=== PATIENT | female | born 1935 | race Caucasian/White ===

== ENCOUNTER 2018-02-03 22:17 | Emergency (ER) | payer OTHER ==
[2018-02-03] MEDS ORDERED: MORPHINE 4 MG/ML SYR ONE (22:46)
[2018-02-03] MEDS ORDERED: TETANUS & DIPHTHERIA TOX,ADULT 0.5 ML VIAL ONE (22:46)
[2018-02-03] MEDS ORDERED: ONDANSETRON 4 MG/2 ML VIAL ONE (22:47)
[2018-02-03] MEDS ORDERED: CEFAZOLIN/SWI 1gm 1 GM/10 ML SYR ONE (22:47)
--- NOTE | 2018-02-03 23:18 | RAD REPORT ---
EXAM DESCRIPTION: RAD - Humerus Right - 02/03/2018 11:02 pm CLINICAL HISTORY: Right arm pain status post fall FINDINGS: A comminuted markedly displaced oblique fracture involves the mid right humerus.
--- NOTE | 2018-02-03 23:22 | RAD REPORT ---
EXAM DESCRIPTION: Laquita Single View02/03/2018 11:02 pm CLINICAL HISTORY: Chest pain COMPARISON: August 2017 FINDINGS: The lungs appear clear of acute infiltrate. The heart is mildly enlarged. The aorta is to rtuous/ectatic IMPRESSION: No acute abnormalities displayed
--- NOTE | 2018-02-03 23:24 | RAD REPORT ---
EXAM DESCRIPTION: RAD - Forearm Right - 02/03/2018 11:02 pm CLINICAL HISTORY: Right arm pain status post fall FINDINGS: No acute fracture is seen involving the right forearm
[2018-02-03 23:34] LABS: Absolute Lymphocytes (CBC) 1.4 K/uL (0.7-4.9); Absolute Monocytes 0.9 K/uL (0.1-1.3); Absolute Neutrophil 6.4 K/uL (1.8-8.0); Basophils % 0.8 % (0-1.3); Eosinophils % 2.5 % (0-4.4); Hematocrit 33.2 % (36.0-45.0); Lymphocytes % 15.9 % (15.3-44.8); MCH 31.2 pg (27.0-35.0); MCV 94.9 fL (80-100); MPV 7.3 fL (7.6-11.3); Monocytes % 9.7 % (3.3-12.3)
[2018-02-03] MEDS ORDERED: FENTANYL CITR 100 MCG/2 ML ONE (23:53)
--- NOTE | 2018-02-03 23:57 | ER ---
Nurse's Notes [facility] Name: Rosina Odonnell Age: 82 yrs Sex: Female : 1935 Arrival Date: 02/03/2018 Time: 22:22 Bed 3 Private MD: Casey Kolher C Diagnosis: Fall. ;Open, displaced, comminuted, midshaft humerus fracture, right. Presentation: 02/03 22:23 Presenting complaint: EMS states: Patient was at home and she tangle with an immobile ao dog and felt into her right side. Noted as dislocated bone and skin tear on the right arm. 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 Mechanism of Injury: Fall standing tangle with a dog. Trauma event details: Injury occurred in the [facility]. 22:23 Acuity: AMERICA 2 ao 22:23 Method Of Arrival: EMS: [facility] ao 22:38 Transition of care: patient was not received from another setting of care. Onset of ao symptoms was February 03, 2018 at 21:30. Risk Assessment: Do you want to hurt yourself or someone else? Patient reports no desire to harm self or others. Initial Sepsis Screen: Does the patient meet any 2 criteria? No. Patient's initial sepsis screen is negative. Does the patient have a suspected source of infection? No. Patient's initial sepsis screen is negative. Triage Assessment: 22:35 General: Appears in no apparent distress. comfortable, Behavior is calm, cooperative, ao appropriate for age. Pain: Complains of pain in right arm Pain currently is 9 out of 10 on a pain scale. EENT: No signs and/or symptoms were reported regarding the EENT system. Neuro: Level of Consciousness is awake, alert, obeys commands, Oriented to person, place, time, situation, Appropriate for age Weakness in right hand(s) arm(s). Cardiovascular: Capillary refill < 3 seconds Patient's skin is warm and dry. Respiratory: Airway is patent Respiratory effort is even, unlabored, Respiratory pattern is regular, symmetrical. GI: Abdomen is non-distended. : No signs and/or symptoms were reported regarding the genitourinary system. Derm: Skin is normal, Skin temperature is cold. Musculoskeletal: Positive pulse noted in right hand. Right hand dressed and immobilize. Reported deformity on the right arm by EMS. Injury Description: Tangle with a dog and fall. Trauma Activation: Alert Physician: ED Physician; Name: ; Notified At: 22:30; Arrived At: 22:30 Physician: General Surgeon; Name: ; Notified At: 22:30; Arrived At: Physician: Radiology; Name: Duglas Lopez; Notified At: 22:30; Arrived At: 22:31 Physician: Respiratory; Name: Boy; Notified At: 22:30; Arrived At: 22:31 Physician: Lab; Name: ; Notified At: 22:30; Arrived At: Historical: - Allergies: 22:33 Augmentin ES-600; ao 22:33 Sulfa (Sulfonamide Antibiotics); ao - Home Meds: 02/04 00:26 Advair Diskus 500-50 mcg/dose Inhl dsdv [Active]; Singulair 10 mg Oral tab 1 tab once ao daily [Active]; Uvalde 7.5-325 mg Oral tab 1 tab every 6 hours [Active]; Cymbalta 60 mg Oral cpDR 1 cap once daily [Active]; Xanax 0.25 mg Oral tab 1 tab bedtime [Active]; methocarbamol 750 mg Oral tab twice a day [Active]; Lyrica 50 mg Oral 2 times per day [Active]; Nexium 40 mg Oral cpDR 1 cap once daily [Active]; Zantac 150 mg Oral tab 1 tab 2 times per day [Active]; Carafate 1 gram Oral tab 1 tab 4 times per day [Active]; Keppra 750 mg Oral tab 1 tab 2 times per day [Active]; carvedilol 3.125 mg Oral tab 1 tab 2 times per day [Active]; Albuterol Inhl [Active]; Aubagio 14 mg Oral tab 1 tab once daily [Active]; trazodone 150 mg Oral tab nightly [Active]; - PMHx: 02/03 22:33 Asthma; Depression; Hypertension; MS; osteoarthritis; Seizures; ao - PSHx: 22:33 None; ao - Immunization history: Last tetanus immunization: unknown. - Social history:: Smoking status: Patient/guardian denies using tobacco, Patient/guardian denies using alcohol, street drugs. - Ebola Screening: : Patient negative for fever greater than or equal to 101.5 degrees Fahrenheit, and additional compatible Ebola Virus Disease symptoms Patient denies exposure to infectious person Patient denies travel to an Ebola-affected area in the 21 days before illness onset. Screenin:33 Abuse screen: Denies threats or abuse. Denies injuries from another. Nutritional ao screening: No deficits noted. Tuberculosis screening: No symptoms or risk factors identified. Fall Risk Fall in past 12 months (25 points). No secondary diagnosis (0 pts). No IV (0 pts). Ambulatory Aid- None/Bed Rest/Nurse Assist (0 pts). Gait- Normal/Bed Rest/Wheelchair (0 pts) Mental Status- Oriented to own ability (0 pts). Total Kuo Fall Scale indicates Low Risk Score (25-44 pts). Fall prevention measures have been instituted. Side Rails Up X 2 Placed close to Nursing Station Family Present and informed to notify staff if they need to leave bedside As available Patient and Family Educated on Fall Prevention Program and strategies. Primary Survey: 22:29 A: Airway: patent. Breathing/Chest: Respiratory pattern: regular, Respiratory effort: ao spontaneous, Breath sounds: clear, bilaterally. Chest inspection: symmetrical rise and fall of the chest. Circulation: Cardiac rhythm: sinus rhythm Heart tones present. Pulses: palpable right radial artery and left radial artery. Skin color: pink, Skin temperature: cold. Disability Alert. 22:39 Reassessment Airway Airway Breathing/Chest Respiratory pattern Regular Circulation ao Heart rhythm Sinus rhythm Disability Alert. Assessment: 22:40 General: See triage notes for full assessment. ao 23:40 Reassessment: Patient appears in no apparent distress at this time. Patient and/or ao family updated on plan of care and expected duration. Pain level reassessed. Patient to be transferred. 02/04 00:10 Reassessment: Report called to MARIELLA Whittaker. ao 01:10 Reassessment: Patient appears in no apparent distress at this time. Patient and/or ao family updated on plan of care and expected duration. Pain level reassessed. Patient is alert, oriented x 3, equal unlabored respirations, skin warm/dry/pink. Waiting on EMS to pick patient for transfer. 01:55 Reassessment: Patient stable with VS stable at this time. Waiting on EMS for ao transportation. Patient has medicated with 50 Mcg Fentanyl IVP by MARIELLA Gandara at 2357 and would be medicated before she leaves for pain. 02:33 Reassessment: Patient left by EMS. Patient VS stable. Patient had no questions at ao this time. Patient medicated with fentanyl 50 Mcg before leaving. Vital Signs: 02/03 22:30 BP 155 / 89; Pulse 72; Resp 16; Temp 97.6(O); Pulse Ox 96% on R/A; Weight 47.17 kg (R); ao Height 5 ft. 6 in. (167.64 cm) (R); Pain 9/10; 23:25 BP 145 / 89; Pulse 68; Resp 16; Pulse Ox 96% on R/A; mt 02/04 00:30 BP 154 / 74; Pulse 77; Resp 18; Pulse Ox 92% on R/A; ao 01:30 BP 149 / 82; Pulse 80; Resp 18; Pulse Ox 95% on R/A; ao 01:59 BP 168 / 84; Pulse 79; Resp 18; Pulse Ox 96% on R/A; ao 02/03 22:30 Body Mass Index 16.79 (47.17 kg, 167.64 cm) ao Early Branch Coma Score: 02/03 22:30 Eye Response: spontaneous(4). Verbal Response: oriented(5). Motor Response: obeys ao commands(6). Total: 15. Trauma Score (Adult): 22:30 Eye Response: spontaneous(1); Verbal Response: oriented(1); Motor Response: obeys ao commands(2); Systolic BP: > 89 mm Hg(4); Respiratory Rate: 10 to 29 per min(4); Early Branch Score: 15; Trauma Score: 12 ED Course: 22:22 Patient arrived in ED. ao 22:29 Triage completed. ao 22:29 Darnell Kendall MD is Attending Physician. ps1 22:31 Patient placed in an exam room, on a stretcher, on cafeteria monitor, on pulse oximetry, ao Patient notified of wait time. 22:38 Arm band placed on right wrist. ao 22:39 Patient has correct armband on for positive identification. traffic monitor specialist on. Pulse ao ox on. NIBP on. 22:39 Patient maintains SpO2 saturation greater than 95% on room air. ao 22:40 Casey Kohler MD is Private Physician. fc 22:40 Thermoregulation: warm blanket given to patient. ao 22:40 No provider procedures requiring assistance completed. Maintain EMS IV. Dressing ao intact. Good blood return noted. Site clean \T\ dry. Gauge \T\ site: 22 H Left hand. Patient transferred, IV remains in place. 22:43 Boni Aparicio RN is Primary Nurse. ao 23:01 X-ray completed. Portable x-ray completed in exam room. Patient tolerated procedure bb2 well. 23:02 Humerus Right XRAY In Process Unspecified. EDMS 23:02 Forearm Right XRAY In Process Unspecified. EDMS 23:02 CXR XRAY In Process Unspecified. EDMS 23:[address] via stretcher. nj 23:06 CT completed. Patient tolerated procedure well. Patient moved back from CT. nj 23:19 CT Head C Spine In Process Unspecified. EDMS 02/04 00:15 Straight cath inserted, using sterile technique, 16 Fr. mt Administered Medications: 02/03 23:08 Drug: Tetanus-Diphtheria Toxoid Adult 0.5 ml {At Risk Paraprofessional: [employer]. Exp: ao 05/13/2020. Lot #: [id number]. } Route: IM; Site: left gluteus; 02/04 00:58 Follow up: Response: No adverse reaction ao 02/03 23:09 Drug: morphine 4 mg Route: IVP; Site: left hand; ao 02/04 00:58 Follow up: Response: No adverse reaction ao 02/03 23:09 Drug: Zofran 4 mg Route: IVP; Site: left forearm; ao 02/04 00:58 Follow up: Response: No adverse reaction ao 02/03 23:09 Drug: Ancef 1 grams Route: IVPB; Site: left forearm; ao 02/04 00:58 Follow up: IV Status: Completed infusion; IV Intake: 10ml ao 02:04 Drug: fentaNYL (PF) 100 mcg {Note: 50 Mcg done at 2357 by MARIELLA Gandara and 50Mcg now ao done by MARIELLA Plata.} Route: IVP; Site: right hand; 02:32 Follow up: Response: No adverse reaction ao Intake: 00:58 IV: 10ml; Total: 10ml. ao 02:31 PO: 0ml; Total: 10ml. ao Output: 02:31 Urine: 0ml; Total: 0ml. ao Outcome: 02/03 23:57 ER care complete, transfer ordered by . ps1 02/04 02:31 Transferred by ground EMS to [facility], Transfer form completed. X-rays sent ao w/ patient. Condition: stable Instructed on the need for transfer. 02:32 Patient's length of stay in the Emergency Department was greater than 2 hours. ao Transfers processPatient's length of stay extended due to 02:34 Patient left the ED. ao Signatures: Dispatcher [employer] EDMS Nichol Brunson RN RN fc Ortiz, Alex, RN RN ao Baljit Grant, Darnell Soto mt, MD MD ps1 Jessica Vidal2 Corrections: (The following items were deleted from the chart) :57 00:10 Reassessment: Report called to MARIELLA Sanchez ao
--- NOTE | 2018-02-03 23:57 | EDPHYS ---
Physician Documentation [facility] Name: Rosina Odonnell Age: 82 yrs Sex: Female : 1935 Arrival Date: 02/03/2018 Time: 22:22 Bed 3 Private MD: Casey Kohler C ED Physician Darnell Kendall HPI: 02/03 23:23 This 82 yrs old Female presents to ER via EMS with complaints of Fall Injury. ps1 23:23 The complaints affect the right arm. Context of injury: The problem was sustained at ps1 home, resulted from a fall, while walking. Onset: The symptoms/episode began/occurred just prior to arrival. Associated signs and symptoms: Pertinent positives: open fracture to right arm and numbness to right arm distally. . Details of fall: The patient fell from an upright position, while walking. Severity of symptoms: At their worst the symptoms were moderate. fall against wall no loc. . Historical: - Allergies: 22:33 Augmentin ES-600; ao 22:33 Sulfa (Sulfonamide Antibiotics); ao - Home Meds: 02/04 00:26 Advair Diskus 500-50 mcg/dose Inhl dsdv [Active]; Singulair 10 mg Oral tab 1 tab once ao daily [Active]; Franklin 7.5-325 mg Oral tab 1 tab every 6 hours [Active]; Cymbalta 60 mg Oral cpDR 1 cap once daily [Active]; Xanax 0.25 mg Oral tab 1 tab bedtime [Active]; methocarbamol 750 mg Oral tab twice a day [Active]; Lyrica 50 mg Oral 2 times per day [Active]; Nexium 40 mg Oral cpDR 1 cap once daily [Active]; Zantac 150 mg Oral tab 1 tab 2 times per day [Active]; Carafate 1 gram Oral tab 1 tab 4 times per day [Active]; Keppra 750 mg Oral tab 1 tab 2 times per day [Active]; carvedilol 3.125 mg Oral tab 1 tab 2 times per day [Active]; Albuterol Inhl [Active]; Aubagio 14 mg Oral tab 1 tab once daily [Active]; trazodone 150 mg Oral tab nightly [Active]; - PMHx: 02/03 22:33 Asthma; Depression; Hypertension; MS; osteoarthritis; Seizures; ao - PSHx: 22:33 None; ao - Immunization history: Last tetanus immunization: unknown. - Social history:: Smoking status: Patient/guardian denies using tobacco, Patient/guardian denies using alcohol, street drugs. - Ebola Screening: : Patient negative for fever greater than or equal to 101.5 degrees Fahrenheit, and additional compatible Ebola Virus Disease symptoms Patient denies exposure to infectious person Patient denies travel to an Ebola-affected area in the 21 days before illness onset. ROS: 23:23 Constitutional: Negative for fever, chills, and weight loss, Eyes: Negative for injury, ps1 pain, redness, and discharge, Cardiovascular: Negative for chest pain, palpitations, and edema, Respiratory: Negative for shortness of breath, cough, wheezing, and pleuritic chest pain, Abdomen/GI: Negative for abdominal pain, nausea, vomiting, diarrhea, and constipation. 23:23 MS/extremity: Positive for injury or acute deformity, decreased range of motion, pain, paresthesias. Exam: 23:23 Constitutional: This is a well developed, well nourished patient who is awake, alert, ps1 and in no acute distress. Head/Face: Normocephalic, atraumatic. Eyes: Pupils equal round and reactive to light, extra-ocular motions intact. Lids and lashes normal. Conjunctiva and sclera are non-icteric and not injected. Chest/axilla: Normal chest wall appearance and motion. Nontender with no deformity. No lesions are appreciated. Cardiovascular: Regular rate and rhythm. No gallops, murmurs, or rubs. Normal PMI, no JVD. No pulse deficits. Respiratory: Lungs have equal breath sounds bilaterally, clear to auscultation and percussion. No rales, rhonchi or wheezes noted. No increased work of breathing, no retractions or nasal flaring. Abdomen/GI: Soft, non-tender, with normal bowel sounds. No distension or tympany. No guarding or rebound. No evidence of tenderness throughout. 23:23 Musculoskeletal/extremity: Extremities: grossly normal except: noted in the right arm: abrasion, decreased ROM, deformity, pain, open fracture. Bleeding controlled. In splint. Decreased sensation over the hand. Good pulses distally. . Vital Signs: 22:30 BP 155 / 89; Pulse 72; Resp 16; Temp 97.6(O); Pulse Ox 96% on R/A; Weight 47.17 kg (R); ao Height 5 ft. 6 in. (167.64 cm) (R); Pain 9/10; 23:25 BP 145 / 89; Pulse 68; Resp 16; Pulse Ox 96% on R/A; mt 02/04 00:30 BP 154 / 74; Pulse 77; Resp 18; Pulse Ox 92% on R/A; ao 01:30 BP 149 / 82; Pulse 80; Resp 18; Pulse Ox 95% on R/A; ao 01:59 BP 168 / 84; Pulse 79; Resp 18; Pulse Ox 96% on R/A; ao 02/03 22:30 Body Mass Index 16.79 (47.17 kg, 167.64 cm) ao Maged Coma Score: 02/03 22:30 Eye Response: spontaneous(4). Verbal Response: oriented(5). Motor Response: obeys ao commands(6). Total: 15. Trauma Score (Adult): 22:30 Eye Response: spontaneous(1); Verbal Response: oriented(1); Motor Response: obeys ao commands(2); Systolic BP: > 89 mm Hg(4); Respiratory Rate: 10 to 29 per min(4); Maged Score: 15; Trauma Score: 12 MDM: 22:39 Patient medically screened. ps1 23:53 Data reviewed: vital signs, nurses notes, lab test result(s), radiologic studies. ps1 Medication response: morphine partially relieved the patient's pain, fentanyl. Pain improved. . ED course: multiple displaced comminuted midshaft humerus fracture. Possible nerve injury on exam. Bleeding controlled. Good distal pulses. Ancef given and tetanus. Transfer to trauma service at [facility]. . 02/03 22:42 Order name: Basic Metabolic Panel; Complete Time: 00:30 ps1 02/03 22:42 Order name: CBC with Diff; Complete Time: 23:45 ps1 02/03 22:42 Order name: CT Head C Spine ps1 02/03 22:42 Order name: Type And Screen; Complete Time: 00:30 ps1 02/03 22:42 Order name: Humerus Right XRAY; Complete Time: 23:20 ps1 02/03 22:42 Order name: Labs collected and sent; Complete Time: 23:25 ps1 02/03 22:42 Order name: Forearm Right XRAY; Complete Time: 23:30 ps1 02/03 22:42 Order name: CXR XRAY; Complete Time: 23:30 ps1 Administered Medications: 23:08 Drug: Tetanus-Diphtheria Toxoid Adult 0.5 ml {Vacuum System Tester: [employer]. Exp: ao 05/13/2020. Lot #: [id number]. } Route: IM; Site: left gluteus; 02/04 00:58 Follow up: Response: No adverse reaction ao 02/03 23:09 Drug: morphine 4 mg Route: IVP; Site: left hand; ao 02/04 00:58 Follow up: Response: No adverse reaction ao 02/03 23:09 Drug: Zofran 4 mg Route: IVP; Site: left forearm; ao 02/04 00:58 Follow up: Response: No adverse reaction ao 02/03 23:09 Drug: Ancef 1 grams Route: IVPB; Site: left forearm; ao 02/04 00:58 Follow up: IV Status: Completed infusion; IV Intake: 10ml ao 02:04 Drug: fentaNYL (PF) 100 mcg {Note: 50 Mcg done at 2357 by MARIELLA Gandara and 50Mcg now ao done by MARIELLA Plata.} Route: IVP; Site: right hand; 02:32 Follow up: Response: No adverse reaction ao Disposition: 02/03/18 23:57 Transfer ordered to [facility]. Diagnosis are Fall. , Open, displaced, comminuted, midshaft humerus fracture, right. . - Reason for transfer: Higher level of care. - Accepting physician is Yuan. - Condition is Fair. - Problem is new. - Symptoms are unchanged. Signatures: Dispatcher [employer] [facility] Boni Aparicio RN RN Darnell Desai MD MD ps1 Corrections: (The following items were deleted from the chart) 02/03 23:30 22:43 Creatinine for Radiology+C.LAB.BRZ ordered. [facility] EDNY 02/04 02:33 02/03 22:42 Urine Dipstick-Ancillary ordered. ps1 ao 02/04 02:34 02/03 23:57 02/03/2018 23:57 Transfer ordered to [facility]. ao Diagnosis is Fall. ; Open, displaced, comminuted, midshaft humerus fracture, right. . Reason for transfer: Higher level of care. Accepting physician is Yuan. Condition is Fair. Problem is new. Symptoms are unchanged. ps1
[2018-02-04 00:16] LABS: Potassium 3.9 mEq/L (3.6-5.0)
[2018-02-04 02:38] VITALS: TEMP 97.6
[2018-02-04 02:43] VITALS: BP 168/84; O2SAT 96
--- NOTE | 2018-02-04 07:50 | RAD REPORT ---
EXAM DESCRIPTION: CT - Head C Spine Mpr Wo Con - 02/04/2018 3:27 am CLINICAL HISTORY: Head and neck injury status post fall. Head and neck pain COMPARISON: None. TECHNIQUE: Computed axial tomography of the head and cervical spine was obtained. Sagittal and coronal reconstruction was performed. A preliminary report was generated by [facility] and reviewed prior to this dictation All CT scans are performed using dose optimization technique as appropriate and may include automated exposure control or mA/KV adjustment according to patient size. FINDINGS: An intracranial bleed is not seen. The ventricles are normal in caliber. An extra-axial fl uid collection is not noted.Fluid within the visualized sinuses and mastoids is not seen Mild anterior subluxation of C3 on C4 spur is present. Minimal anterior subluxation of C4 on C5 and C 6 on C7 is present. Spondylosis involves the mid and distal cervical spine. Mild to moderate foramina l stenosis is present. A cervical fracture is not visualized. No dislocation is noted. IMPRESSION: No acute intracranial abnormality is seen. A cervical fracture is not visualized. If the patient continues to have symptoms to suggest intracra nial /spinal cord pathology then MRI would be recommended
== END 2018-02-04 02:34 | disposition short-term general hospital (02) ==
LOC: ER 22:17
DX: S42.351B Displaced comminuted fracture of shaft of humerus, right arm, initial encounter for open fracture (principal); W18.30XA Fall on same level, unspecified, initial encounter; Y93.01 Activity, walking, marching and hiking; Y92.009 Unspecified place in unspecified non-institutional (private) residence as the place of occurrence of the external cause; Z23 Encounter for immunization; Z88.1 Allergy status to other antibiotic agents; Z88.2 Allergy status to sulfonamides; I10 Essential (primary) hypertension; G40.909 Epilepsy, unspecified, not intractable, without status epilepticus; F32.9 Major depressive disorder, single episode, unspecified
CPT/HCPCS: 36415; 51702; 70450; 71045; 72125; 73060; 73090; 80048; 85025; 86850; 86900; 86901; 90714; 99285; J0690; J2405; J3010

== ENCOUNTER 2018-08-30 16:23 | Emergency (ER) | payer OTHER ==
--- NOTE | 2018-08-30 16:55 | ER ---
Nurse's Notes [facility] Name: Rosina Odonnell Age: 83 yrs Sex: Female : 1935 Arrival Date: 08/30/2018 Time: 16:28 Bed 28 Private MD: Matthieu Kohler Diagnosis: Essential (primary) hypertension Presentation: 08/30 16:35 Presenting complaint: Patient states: "I was just at the pain doctor and he told me to aa5 come to the ER because my blood pressure was 214/111". 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 Transition of care: patient was not received from another setting of care. Onset of symptoms was August 2018. Risk Assessment: Do you want to hurt yourself or someone else? Patient reports no desire to harm self or others. Initial Sepsis Screen: Does the patient meet any 2 criteria? No. Patient's initial sepsis screen is negative. Does the patient have a suspected source of infection? No. Patient's initial sepsis screen is negative. Care prior to arrival: None. 16:35 Method Of Arrival: Wheelchair aa5 16:35 Acuity: AMERICA 3 aa5 Historical: - Allergies: 16:37 Augmentin ES-600; aa5 16:37 Sulfa (Sulfonamide Antibiotics); aa5 - PMHx: 16:37 Asthma; Depression; Hypertension; MS; osteoarthritis; Seizures; aa5 - PSHx: 16:37 None; aa5 - Immunization history:: Flu vaccine is up to date. - Social history:: Smoking status: Patient/guardian denies using tobacco. - Ebola Screening: : No symptoms or risks identified at this time. Screenin:56 Abuse screen: Denies threats or abuse. Nutritional screening: No deficits noted. la1 Tuberculosis screening: No symptoms or risk factors identified. Fall Risk None identified. Assessment: 16:56 General: Appears in no apparent distress. Behavior is calm, cooperative. Pain: Denies la1 pain. Neuro: Level of Consciousness is awake, alert, obeys commands, Oriented to person, place, time, situation. Cardiovascular: Capillary refill < 3 seconds Patient's skin is warm and dry. Respiratory: Airway is patent Respiratory effort is even, unlabored, Respiratory pattern is regular, symmetrical. GI: No signs and/or symptoms were reported involving the gastrointestinal system. : No signs and/or symptoms were reported regarding the genitourinary system. Vital Signs: 16:38 BP 165 / 76; Pulse 71; Resp 16 S; Temp 98.0(TE); Pulse Ox 98% on R/A; Weight 48.53 kg aa5 (R); Height 5 ft. 6 in. (167.64 cm) (R); Pain 7/10; 17:02 BP 152 / 78; Pulse 69; Resp 16; Pulse Ox 99% on R/A; Pain 3/10; ls4 16:38 Body Mass Index 17.27 (48.53 kg, 167.64 cm) aa5 ED Course: 16:28 Patient arrived in ED. mr 16:28 Matthieu Kohler MD is Private Physician. mr 16:35 Arm band placed on. aa5 16:36 Triage completed. aa5 16:42 Dandre Reid, RN is Primary Nurse. la1 16:43 Zelalem Kraft MD is Attending Physician. 16:54 Matthieu Kohler MD is Referral Physician. 16:56 Call light in reach. la1 16:56 No provider procedures requiring assistance completed. Patient did not have IV access la1 during this emergency room visit. Administered Medications: No medications were administered Outcome: 16:54 Discharge ordered by . 16:56 Discharged to home ambulatory. la1 16:56 Condition: stable 16:56 Discharge instructions given to patient, Instructed on discharge instructions, follow up and referral plans. Demonstrated understanding of instructions, follow-up care. 17:06 Patient left the ED. la1 Signatures: Laura Simpson ZhenAmber RN RN aa Dandre Reid RN RN la1 Zelalem Kraft MD MD Simi Bertrand RN RN ls4
--- NOTE | 2018-08-30 16:55 | EDPHYS ---
Physician Documentation [facility] Name: Rosina Odonnell Age: 83 yrs Sex: Female : 1935 Arrival Date: 08/30/2018 Time: 16:28 Bed 28 Private MD: Matthieu Kohler ED Physician Zelalem Kraft HPI: 08/30 16:55 This 83 yrs old Female presents to ER via Wheelchair with complaints of High gs Blood Pressure. 16:55 The patient has elevated blood pressure and discovered this at a physician's office, and sent to the emergency department for evaluation. Onset: The symptoms/episode began/occurred today. Modifying factors: The symptoms are alleviated by prescription meds. Associated signs and symptoms: Pertinent negatives: chest pain, dizziness, dyspnea, lightheadedness, visual changes. Severity of symptoms: At its worst the blood pressure was severe, in the emergency department the blood pressure is improved, markedly. The patient has experienced similar episodes in the past, several times. The patient has been recently seen by a physician:. Historical: - Allergies: 16:37 Augmentin ES-600; aa5 16:37 Sulfa (Sulfonamide Antibiotics); aa5 - PMHx: 16:37 Asthma; Depression; Hypertension; MS; osteoarthritis; Seizures; aa5 - PSHx: 16:37 None; aa5 - Immunization history:: Flu vaccine is up to date. - Social history:: Smoking status: Patient/guardian denies using tobacco. - Ebola Screening: : No symptoms or risks identified at this time. ROS: 16:55 All other systems are negative. Exam: 16:55 Head/Face: Normocephalic, atraumatic. Eyes: Pupils equal round and reactive to light, gs extra-ocular motions intact. Lids and lashes normal. Conjunctiva and sclera are non-icteric and not injected. Cornea within normal limits. Periorbital areas with no swelling, redness, or edema. ENT: Nares patent. No nasal discharge, no septal abnormalities noted. Tympanic membranes are normal and external auditory canals are clear. Oropharynx with no redness, swelling, or masses, exudates, or evidence of obstruction, uvula midline. Mucous membranes moist. Neck: Trachea midline, no thyromegaly or masses palpated, and no cervical lymphadenopathy. Supple, full range of motion without nuchal rigidity, or vertebral point tenderness. No Meningismus. Chest/axilla: Normal chest wall appearance and motion. Nontender with no deformity. No lesions are appreciated. Cardiovascular: Regular rate and rhythm with a normal S1 and S2. No gallops, murmurs, or rubs. Normal PMI, no JVD. No pulse deficits. Respiratory: Lungs have equal breath sounds bilaterally, clear to auscultation and percussion. No rales, rhonchi or wheezes noted. No increased work of breathing, no retractions or nasal flaring. Abdomen/GI: Soft, non-tender, with normal bowel sounds. No distension or tympany. No guarding or rebound. No evidence of tenderness throughout. Back: No spinal tenderness. No costovertebral tenderness. Full range of motion. Skin: Warm, dry with normal turgor. Normal color with no rashes, no lesions, and no evidence of cellulitis. MS/ Extremity: Pulses equal, no cyanosis. Neurovascular intact. Full, normal range of motion. Neuro: Awake and alert, GCS 15, oriented to person, place, time, and situation. Cranial nerves II-XII grossly intact. Motor strength 5/5 in all extremities. Sensory grossly intact. Cerebellar exam normal. Normal gait. 16:55 Constitutional: The patient appears alert, awake. Vital Signs: 16:38 BP 165 / 76; Pulse 71; Resp 16 S; Temp 98.0(TE); Pulse Ox 98% on R/A; Weight 48.53 kg aa5 (R); Height 5 ft. 6 in. (167.64 cm) (R); Pain 7/10; 17:02 BP 152 / 78; Pulse 69; Resp 16; Pulse Ox 99% on R/A; Pain 3/10; ls4 16:38 Body Mass Index 17.27 (48.53 kg, 167.64 cm) aa5 MDM: 16:54 Patient medically screened. 16:55 Data reviewed: vital signs, nurses notes. Counseling: I had a detailed discussion with gs the patient and/or guardian regarding: the historical points, exam findings, and any diagnostic results supporting the discharge/admit diagnosis, the need for outpatient follow up. Response to treatment: the patient's symptoms have markedly improved after treatment, and as a result, I will discharge patient. Administered Medications: No medications were administered Disposition: 08/30/18 16:54 Discharged to Home. Impression: Essential (primary) hypertension. - Condition is Stable. - Discharge Instructions: Hypertension, Managing Your Hypertension. - Medication Reconciliation Form, Thank You Letter, Antibiotic Education, Prescription Opioid Use form. - Follow up: Matthieu Kohler MD; When: 1 - 2 days; Reason: Re-evaluation by your physician. Signatures: Amber Fontaine RN RN aa5 Dandre Reid RN RN la1 Zelalem Kraft MD MD gs Corrections: (The following items were deleted from the chart) 17:06 16:54 08/30/2018 16:54 Discharged to Home. Impression: Essential (primary) la1 hypertension. Condition is Stable. Forms are Medication Reconciliation Form, Thank You Letter, Antibiotic Education, Prescription Opioid Use. Follow up: Matthieu Kohler; When: 1 - 2 days; Reason: Re-evaluation by your physician. gs
[2018-08-30 17:33] VITALS: TEMP 98
[2018-08-30 17:34] VITALS: BP 152/78; O2SAT 99
== END 2018-08-30 17:06 | disposition home or self-care (01) ==
LOC: ER 16:23
DX: I10 Essential (primary) hypertension (principal); Z88.1 Allergy status to other antibiotic agents; Z88.2 Allergy status to sulfonamides
CPT/HCPCS: 99281

== ENCOUNTER 2018-09-20 17:21 | Observation (INO) | payer OTHER ==
[2018-09-20 18:59] LABS: Absolute Monocytes 0.9 K/uL (0.1-1.3); Absolute Neutrophil 5.1 K/uL (1.8-8.0); Eosinophils % 5.2 % (0-4.4); Lymphocytes % 23.3 % (15.3-44.8); MPV 7.6 fL (7.6-11.3); Monocytes % 10.7 % (3.3-12.3)
[2018-09-20 19:11] LABS: Potassium 3.9 mmol/L (3.5-5.1)
--- NOTE | 2018-09-20 19:38 | RAD REPORT ---
EXAM DESCRIPTION: CT - Chest For Pe Angio - 09/20/2018 7:30 pm CLINICAL HISTORY: Chest pain. COUGH COMPARISON: Chest For Pe Angio dated 10/07/2016; Chest Pa And Lat (2 Views) dated 09/16/2018 TECHNIQUE: CT angiogram of the pulmonary arteries was performed with MIP. All CT scans are performed using dose optimization technique as appropriate and may include automated exposure control or mA/KV adjustment according to patient size. FINDINGS: No evidence of pulmonary thromboembolism. No acute aortic finding demonstrated. Airspace opacities are present in both lung apices, greater on the left, suggesting pneumonia. Minima l infiltrate also present in the right middle lobe and lingula. Small right pleural effusion is present. No concerning bony finding. IMPRESSION: No evidence of pulmonary thromboembolism. Mild opacities in both lung apices likely represent pneumonia. Small right pleural effusion.
[2018-09-20] MEDS ORDERED: Levofloxacin500mg IV 0 MG/0 ML BAG IV ONE (20:03)
[2018-09-20] MEDS ORDERED: Levofloxacin 750mg IV 750 MG/150 ML BAG IV ONE (20:05)
--- NOTE | 2018-09-20 20:06 | ER ---
Nurse's Notes [facility] Name: Rosina Odonnell Age: 83 yrs Sex: Female : 1935 Arrival Date: 09/20/2018 Time: 17:25 Bed 26 Private MD: Matthieu Kohler Diagnosis: Lobar pneumonia, unspecified organism Presentation: 09/20 18:10 Presenting complaint: Patient states: pt states she has had a cough for a few weeks. pt ls4 states it is productive with green sputum. pt states that Dr Kohler sent her because there is a spot on her right lung and she states that it hurts in her lung. Transition of care: patient was not received from another setting of care. Onset of symptoms was September 20, 2018. Risk Assessment: Do you want to hurt yourself or someone else? Patient reports no desire to harm self or others. Initial Sepsis Screen: Does the patient meet any 2 criteria? No. Patient's initial sepsis screen is negative. Care prior to arrival: None. 18:10 Method Of Arrival: Wheelchair ls4 18:10 Acuity: [place] 3 ls4 20:12 Initial Sepsis Screen: Does the patient have a suspected source of infection? Yes: ls4 Productive cough/pneumonia. Triage Assessment: 18:18 General: Appears in no apparent distress. Behavior is cooperative. Pain: Complains of ls4 pain in anterior aspect of right upper chest Pain currently is 4 out of 10 on a pain scale. Neuro: Oriented to person, place, time, situation, Denies weakness blurred vision dizziness, difficulty swallowing, paresthesias numbness headache photophobia diplopia. Respiratory: No deficits noted. Respiratory: No deficits noted. Airway is patent Respiratory effort is unlabored, Respiratory pattern is regular, Sputum is green Breath sounds are diminished bilaterally. GI: No deficits noted. Historical: - Allergies: 18:17 Augmentin ES-600; ls4 18:17 Sulfa (Sulfonamide Antibiotics); ls4 - Home Meds: 18:17 Advair Diskus 500-50 mcg/dose Inhl dsdv [Active]; carvedilol 3.125 mg Oral tab 1 tab 2 ls4 times per day [Active]; Keppra 750 mg Oral tab 1 tab 2 times per day [Active]; Cymbalta 60 mg Oral cpDR 1 cap once daily [Active]; Lyrica 50 mg Oral 2 times per day [Active]; methocarbamol 750 mg Oral tab twice a day [Active]; [place] 7.5-325 mg Oral tab 1 tab every 6 hours [Active]; - PMHx: 18:17 Asthma; Depression; Hypertension; MS; osteoarthritis; Seizures; ls4 - PSHx: 18:18 Hysterectomy; ls4 - Immunization history:: Adult Immunizations up to date. - Social history:: Smoking status: Patient/guardian denies using tobacco, never smoked. - Ebola Screening: : Patient negative for fever greater than or equal to 101.5 degrees Fahrenheit, and additional compatible Ebola Virus Disease symptoms Patient denies exposure to infectious person Patient denies travel to an Ebola-affected area in the 21 days before illness onset No symptoms or risks identified at this time. Screenin:04 Abuse screen: Denies threats or abuse. Denies injuries from another. Nutritional ls4 screening: No deficits noted. Tuberculosis screening: No symptoms or risk factors identified. Fall Risk None identified. Assessment: 18:59 General: Appears SEE TRIAGE ASSESSMENT. ls4 20:13 Reassessment: Patient appears in no apparent distress at this time. Patient and/or ls4 family updated on plan of care and expected duration. Pain level reassessed. Patient is alert, oriented x 3, equal unlabored respirations, skin warm/dry/pink. 21:17 Neuro: Oriented to person, place, time, situation, Blower Insulator are equal bilaterally Moves ls4 all extremities. Gait is unsteady, Speech is normal, Facial symmetry appears normal. Respiratory: Reports shortness of breath on exertion PT WALKED TO BATHROOM AND STATED SHE BECAME SHORT OF BREATH. PULSE O2 90 PERCENT. PT PLACED ON 02 2 LITERS NASAL CANULA. Vital Signs: 18:23 BP 115 / 66; Pulse 78; Resp 16; Pulse Ox 99% on R/A; Pain 4/10; ls4 20:03 BP 114 / 78; Pulse 77; Resp 16; Temp 98.6(O); Pulse Ox 100% ; Pain 3/10; ls4 21:15 BP 118 / 78; Pulse 88; Resp 19; Temp 98.6; Pulse Ox 99% ; Pain 3/10; ls4 ED Course: 17:25 Patient arrived in ED. sb2 17:25 Matthieu Kohler MD is Private Physician. sb2 18:06 Zelalem Kraft MD is Attending Physician. gs 18:10 Simi Bertrand, MARIELLA is Primary Nurse. ls4 18:13 Triage completed. ls4 18:20 Inserted saline lock: 20 gauge in right forearm, using aseptic technique. Blood ls4 collected. 18:20 Initial lab(s) drawn, by mt, sent to lab. ls4 18:23 Radiology exam delayed due to lab results not completed at this time. (BUN/Creatinine). nj 18:23 Arm band placed on left wrist. ls4 18:25 Placed in gown. Bed in low position. Call light in reach. Side rails up X 1. ls4 18:25 Pulse ox on. NIBP on. ls4 18:46 CT Chest For PE Angio Sent. ls4 19:00 Radiology exam delayed due to lab results not completed at this time. (BUN/Creatinine). vm2 19:[address] via wheelchair. vm2 19:29 CT completed. Patient tolerated procedure well. Patient moved back from CT. vm2 19:30 CT Chest For PE Angio In Process Unspecified. EDMS 20:05 Matthieu Kohler MD is Hospitalizing Provider. gs 20:05 No provider procedures requiring assistance completed. ls4 21:28 Patient maintains SpO2 saturation greater than 95% on room air. O2 via PT SETTLED, ls4 CHANGED SA02 MONITOR, PT 100 PERCENT ON ROOM AIR. Administered Medications: 20:03 Drug: LevaQUIN 750 mg Volume: 150 ml; Route: IVPB; Infused Over: 90 mins; Site: right ea hand; 21:23 Follow up: Response: No adverse reaction; IV Status: Completed infusion ls4 Outcome: 20:06 Decision to Hospitalize by Provider. gs 21:21 Admitted to Tele accompanied by tech, via wheelchair, room 415, with oxygen, Report ls4 called to [facility]. 21:21 Condition: stable 21:41 Patient left the ED. ls4 Signatures: Dispatcher [employer] EDMS Baljit Grant Victoria 2 Diya Castañeda, RN Zelalem Philippe ea, MD MD Adri Spencer 2 Simi Bertrand, RN RN ls4
--- NOTE | 2018-09-20 20:06 | EDPHYS ---
Physician Documentation [facility] Name: Rosina Odonnell Age: 83 yrs Sex: Female : 1935 Arrival Date: 09/20/2018 Time: 17:25 Bed 26 Private MD: Matthieu Hardy ED Physician Zelalem Kraft HPI: 09/20 20:04 This 83 yrs old Female presents to ER via Wheelchair with complaints of gs Abnormal Lab Results - DR HARDY. 20:04 The patient or guardian reports cough, that is intermittent. Onset: The gs symptoms/episode began/occurred 1.5 week(s) ago. Severity of symptoms: At their worst the symptoms were moderate, in the emergency department the symptoms are unchanged. Modifying factors: The symptoms are alleviated by nothing, the symptoms are aggravated by cold weather. Associated signs and symptoms: Pertinent positives: fever. The patient has experienced similar episodes in the past, a few times. The patient has been recently seen by a physician: the patient's primary care provider, with similar presenting complaints. Historical: - Allergies: 18:17 Augmentin ES-600; ls4 18:17 Sulfa (Sulfonamide Antibiotics); ls4 - Home Meds: 18:17 Advair Diskus 500-50 mcg/dose Inhl dsdv [Active]; carvedilol 3.125 mg Oral tab 1 tab 2 ls4 times per day [Active]; Keppra 750 mg Oral tab 1 tab 2 times per day [Active]; Cymbalta 60 mg Oral cpDR 1 cap once daily [Active]; Lyrica 50 mg Oral 2 times per day [Active]; methocarbamol 750 mg Oral tab twice a day [Active]; [place] 7.5-325 mg Oral tab 1 tab every 6 hours [Active]; - PMHx: 18:17 Asthma; Depression; Hypertension; MS; osteoarthritis; Seizures; ls4 - PSHx: 18:18 Hysterectomy; ls4 - Immunization history:: Adult Immunizations up to date. - Social history:: Smoking status: Patient/guardian denies using tobacco, never smoked. - Ebola Screening: : Patient negative for fever greater than or equal to 101.5 degrees Fahrenheit, and additional compatible Ebola Virus Disease symptoms Patient denies exposure to infectious person Patient denies travel to an Ebola-affected area in the 21 days before illness onset No symptoms or risks identified at this time. ROS: 20:04 All other systems are negative. gs Exam: 20:04 Head/Face: Normocephalic, atraumatic. Eyes: Pupils equal round and reactive to light, gs extra-ocular motions intact. Lids and lashes normal. Conjunctiva and sclera are non-icteric and not injected. Cornea within normal limits. Periorbital areas with no swelling, redness, or edema. ENT: Nares patent. No nasal discharge, no septal abnormalities noted. Tympanic membranes are normal and external auditory canals are clear. Oropharynx with no redness, swelling, or masses, exudates, or evidence of obstruction, uvula midline. Mucous membranes moist. Neck: Trachea midline, no thyromegaly or masses palpated, and no cervical lymphadenopathy. Supple, full range of motion without nuchal rigidity, or vertebral point tenderness. No Meningismus. Chest/axilla: Normal chest wall appearance and motion. Nontender with no deformity. No lesions are appreciated. Cardiovascular: Regular rate and rhythm with a normal S1 and S2. No gallops, murmurs, or rubs. Normal PMI, no JVD. No pulse deficits. Respiratory: Lungs have equal breath sounds bilaterally, clear to auscultation and percussion. No rales, rhonchi or wheezes noted. No increased work of breathing, no retractions or nasal flaring. Abdomen/GI: Soft, non-tender, with normal bowel sounds. No distension or tympany. No guarding or rebound. No evidence of tenderness throughout. Back: No spinal tenderness. No costovertebral tenderness. Full range of motion. Skin: Warm, dry with normal turgor. Normal color with no rashes, no lesions, and no evidence of cellulitis. MS/ Extremity: Pulses equal, no cyanosis. Neurovascular intact. Full, normal range of motion. Neuro: Awake and alert, GCS 15, oriented to person, place, time, and situation. Cranial nerves II-XII grossly intact. Motor strength 5/5 in all extremities. Sensory grossly intact. Cerebellar exam normal. Normal gait. 20:04 Constitutional: The patient appears alert, awake. Vital Signs: 18:23 BP 115 / 66; Pulse 78; Resp 16; Pulse Ox 99% on R/A; Pain 4/10; ls4 20:03 BP 114 / 78; Pulse 77; Resp 16; Temp 98.6(O); Pulse Ox 100% ; Pain 3/10; ls4 21:15 BP 118 / 78; Pulse 88; Resp 19; Temp 98.6; Pulse Ox 99% ; Pain 3/10; ls4 MDM: 18:20 Patient medically screened. 20:04 Differential Diagnosis: Bronchitis Influenza Viral Syndrome Pneumonia. Data reviewed: vital signs, nurses notes. Counseling: I had a detailed discussion with the patient and/or guardian regarding: the historical points, exam findings, and any diagnostic results supporting the discharge/admit diagnosis, lab results, radiology results. Response to treatment: the patient's symptoms have mildly improved after treatment, and as a result, I will admit patient. Physician consultation: Matthieu Hardy MD wants pt admitted. 09/20 18:21 Order name: CBC with Diff; Complete Time: 19:18 09/20 18:21 Order name: Basic Metabolic Panel; Complete Time: 19:18 09/20 18:21 Order name: Blood Culture* 09/20 20:13 Order name: Basic Metabolic Panel [facility] 09/20 20:13 Order name: Basic Metabolic Panel [facility] 09/20 20:13 Order name: CBC with Automated Diff [facility] 09/20 18:21 Order name: CT Chest For PE Angio; Complete Time: 19:45 09/20 20:14 Order name: CBC with Automated Diff [facility] 09/20 20:14 Order name: NT PRO-BNP [facility] 09/20 20:14 Order name: NT PRO-BNP [facility] 09/20 20:14 Order name: Troponin I [facility] 09/20 20:14 Order name: Troponin I [facility] 09/20 20:14 Order name: Troponin I [facility] 09/20 20:13 Order name: Consistent Carb (ADA) 2000 Luis EDVT Administered Medications: 20:03 Drug: LevaQUIN 750 mg Volume: 150 ml; Route: IVPB; Infused Over: 90 mins; Site: right ea hand; 21:23 Follow up: Response: No adverse reaction; IV Status: Completed infusion ls4 Disposition: 09/20/18 20:06 Hospitalization ordered by Matthieu Hardy for Observation. Preliminary diagnosis is Lobar pneumonia, unspecified organism. - Bed requested for Telemetry/MedSurg (observation). - Status is Observation. ls4 - Condition is Stable. - Problem is new. - Symptoms are unchanged. UTI on Admission? No Signatures: Dispatcher [employer] EDMS Louisa Martinez, RN RN dw Diya Castañeda, RN RN Zelalem Whitney MD MD gs Stewart, Lisa RN RN ls4 Corrections: (The following items were deleted from the chart) 20:28 20:06 Hospitalization Ordered by Matthieu Hardy MD for Observation. Preliminary diagnosis dw is Lobar pneumonia, unspecified organism. Bed requested for Telemetry/MedSurg (observation). Status is Observation. Condition is Stable. Problem is new. Symptoms are unchanged. UTI on Admission? No. gs 21:41 20:28 09/20/2018 20:06 Hospitalization Ordered by Matthieu Hardy MD for Observation. ls4 Preliminary diagnosis is Lobar pneumonia, unspecified organism. Bed requested for Telemetry/MedSurg (observation). Status is Observation. Condition is Stable. Problem is new. Symptoms are unchanged. UTI on Admission? No. dw
[2018-09-20] MEDS ORDERED: IPRATROPIUM BROM 0.5MG/2.5ML NEB PRN ×2 (20:10→21:58)
[2018-09-20] MEDS ORDERED: ALBUTEROL 2.5 MG/3 ML NEB SOL NEB PRN ×2 (20:10→22:01)
[2018-09-20] MEDS ORDERED: ACETAMINOPHEN 500 MG TAB PO PRN ×2 (20:10→22:00)
[2018-09-20] MEDS ORDERED: HYDROCODONE/APAP 5/325 MG TAB PO PRN ×2 (20:10→22:11)
[2018-09-20] MEDS ORDERED: Levofloxacin500mg IV 100 ML IV SCH (21:00)
[2018-09-20] MEDS ORDERED: NACHLORIDE 0.45% 1,000 ML IV SCH (21:48)
[2018-09-20 21:59] VITALS: BMI 18.3
[2018-09-20] MEDS ORDERED: Levofloxacin500mg IV 500 MG/100 ML BAG IV ONE (23:00)
[2018-09-21 01:14] LABS: Urine Appearance CLEAR; Urine Bilirubin NEGATIVE (NEG); Urine Blood NEGATIVE (NEG); Urine Color YELLOW; Urine Glucose NEGATIVE (NEG); Urine Protein NEGATIVE (NEG); Urine Specific Gravity >=1.030 (1.005-1.030); Urine Urobilinogen 0.2 mg/dL (0.2-1.0); Urine pH 5.5 (5.0-7.0)
[2018-09-21 01:21] LABS: Urine Microscopic Reflex NO UMIC
[2018-09-21 03:59] VITALS: O2SAT 98
[2018-09-21 05:09] LABS: Absolute Monocytes 1.1 K/uL (0.1-1.3); Absolute Neutrophil 4.1 K/uL (1.8-8.0); Basophils % 0.5 % (0-1.3); Eosinophils % 5.9 % (0-4.4); Hematocrit 27.8 % (36.0-45.0); Lymphocytes % 25.7 % (15.3-44.8); MPV 7.3 fL (7.6-11.3); Monocytes % 13.7 % (3.3-12.3); RBC Red Blood Cell Count 2.89 M/uL (3.86-4.86)
[2018-09-21 05:33] LABS: BUN Blood Urea Nitrogen 12 mg/dL (7-18); Bicarbonate 26 mmol/L (21-32); Glucose Level 88 mg/dL (74-106); NT PRO-BNP 427 pg/mL (<450); Potassium 3.8 mmol/L (3.5-5.1); Sodium Level 140 mmol/L (136-145)
[2018-09-21] MEDS ORDERED: Levofloxacin500mg IV 500 MG/100 ML BAG IV SCH (08:00)
[2018-09-21 13:14] VITALS: BP 140/68; TEMP 98
[2018-09-21] MEDS ORDERED: Levofloxacin 250mg IV 250 MG/50 ML BAG IV SCH (23:00)
--- NOTE | 2018-09-22 07:20 | SS ---
Date of Discharge: 09/21/2018 Chief Complaint: Fever, cough, and right-sided chest pain. History Of Present Illness: An 83-year-old female patient who saw me last week with bronchitis type of symptoms and was prescribed antibiotic Z-Leonid. The patient started having right-sided pleuritic ch est pain a day after she saw me. A chest x-ray was ordered which was done last week, which did not s how any pneumonia, but showed vague 2 cm lung mass on the right side versus confluence of blood vesse ls, and we were planning to do CAT scan of the chest on outpatient basis. Meanwhile, the patient gina led office yesterday to inform that she is not feeling any better. Continues to have this right-side d chest pain and has fever up to 100.6 degrees Fahrenheit along with cough, chest congestion, and yel lowish colored mucus. She was advised to come to emergency room. After she came into ER, she was ev aluated, had a CAT scan of the chest done per PE protocol in the ER, was diagnosed as having pneumoni a, and was admitted to hospital for observation. The patient received 1 dose of IV Levaquin yesterda y. This morning when I saw her, she was feeling better compared to yesterday. Allergies: TO AUGMENTIN. SHE IS ALSO ALLERGIC TO SULFA. Medications: List reviewed. Review of Systems: Constitutional: As mentioned above. Respiratory: As mentioned above. All other systems reviewed and negative. Social History: Negative for smoking, alcohol use. Family History: Significant for hypertension, asthma. Past Surgical History: Right elbow surgery, sinus surgery, removal of benign tumor from left breast, urethral dilatation, left shoulder surgery, hysterectomy. Past Medical History: Significant for hypertension, multiple sclerosis, osteoarthritis at multiple s ites, diverticulosis, hypothyroidism, hyperlipidemia, vitamin B12 deficiency, anemia, asthma, allergi c rhinitis, migraine, depression, gastroesophageal reflux disease, osteopenia, and history of seizure disorder. Physical Examination: Vital Signs: Temperature 97.4, pulse 74, respiratory rate 18, blood pressure 122/51, oxygen saturati on 100%, weight 113 pounds, height 5 feet 6 inches. General: Awake, alert, oriented, not in distress. HEENT: Head atraumatic, normocephalic. Conjunctivae nonerythematous. Sclerae white. Mouth, no thr ush or edema noted. Ears/Nose, no mass, lesion, discharge noted. Neck: Supple. No JVD, lymph nodes, bruit, thyromegaly noted. Lungs: Bilateral good equal air entry. Clear to auscultation. No rhonchi. No rales. Heart: Normal heart sounds, no murmur or gallop. Abdomen: Soft, bowel sounds normal. No guarding, rigidity, tenderness, mass, hepatosplenomegaly, dis tention, or bruit noted. Extremities: No leg edema. No calf tenderness. Skin: No rash, ulcer, cellulitis. Lymphatics: No lymph node enlargement in neck, supraclavicular, infraclavicular region. Neuro: No focal neurological deficit. Chest: Unremarkable. External Genitalia: Deferred. Rectal: Deferred. Laboratory Data: Yesterday, white count 8.5, hemoglobin 11.5, platelets 322. Today, white count 7.7 , hemoglobin 9.3, platelets 270. Yesterday, sodium 142, potassium 3.9, chloride 109, bicarb 27, BUN 13, creatinine 0.82, glucose 95. Troponin less than 0.02. This morning, sodium 140, potassium 3.8, chloride 107, bicarb 26, BUN 12, creatinine 0.61, glucose 88. Urinalysis negative. CT scan of the c hest per PE protocol, no evidence of pulmonary embolism, mild opacity in both lung apices representin g pneumonia. Hospital Course: After the patient was evaluated in the ER, she was admitted to the hospital for obs ervation. The patient got 1 dose of IV Levaquin yesterday. Second dose of IV Levaquin was ordered t o be given this morning, and after that, the patient was discharged to go home in stable condition wi th following discharge medications and instructions: 1.Continue all prior home medications. 2.Take Levaquin 500 mg p.o. daily for 1 week starting tomorrow. 3.Follow up at my office as per scheduled appointment. Final Diagnoses: 1.Pneumonia. 2.Asthma. 3.Anemia. 4.Hypertension. 5.Hyperlipidemia. 6.Hypothyroidism. 7.Multiple sclerosis. 8.Gastroesophageal reflux disease. 9.Osteoarthritis, multiple sites. 10.Osteopenia. 11.Diverticulosis. 12.Vitamin B12 deficiency anemia. 13.Allergic rhinitis. 14.History of seizure disorder. 15.Migraine. ANH/MODL Voice ID: [id number] Report ID: [id number]
== END 2018-09-21 12:45 | disposition home or self-care (01) ==
LOC: ER 17:21 → ERHOLD 20:09 → 4TH 21:17
PROVIDERS: ADMIT Internal Medicine; ATTEND Internal Medicine
DX: J18.9 Pneumonia, unspecified organism (principal); J45.909 Unspecified asthma, uncomplicated; D64.9 Anemia, unspecified; I10 Essential (primary) hypertension; E78.5 Hyperlipidemia, unspecified; E03.9 Hypothyroidism, unspecified; G35 Multiple sclerosis; K21.9 Gastro-esophageal reflux disease without esophagitis; M19.90 Unspecified osteoarthritis, unspecified site; F32.9 Major depressive disorder, single episode, unspecified; M85.80 Other specified disorders of bone density and structure, unspecified site; K57.90 Diverticulosis of intestine, part unspecified, without perforation or abscess without bleeding; J30.9 Allergic rhinitis, unspecified; Z88.2 Allergy status to sulfonamides
CPT/HCPCS: 36415; 71275; 80048 ×2; 81003; 83880; 84484; 85025 ×2; 87040 ×2; 87077; 87086; 87088; 87186; 96365; 99285; G0378 ×2; Q9967

== ENCOUNTER 2019-01-17 16:22 | Emergency (ER) | payer OTHER ==
--- OUTSIDE RECORDS SUMMARY | 2019-01-17 16:30 | XMS REPORT | Continuity of Care Document ---
:1935 Author Organization Interface Problems Problem Status Onset Classification Date Comments Source Date Reported OPEN RIGHT HUMERUS Active [address] Asthma exacerbation Active Finding 08/24/[address] [facility] Weakness Active Finding 08/24/[address] [facility] Abnormal renal Active Finding 08/24/[address] [facility] function 017 [facility] Abnormal kidney Active Finding 08/24/[address] [facility] function 017 [facility] Exacerbation of Active Finding 08/24/[address] [facility] 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 of right patella 017 [facility] Right knee pain Active Finding 08/24/[address] [facility] [facility]17 [facility] GI BLEED, ANEMIA Active [facility] 016 Weakness Active Finding 08/24/[address] [facility] generalized 016 [facility] Dehydration Active Finding 08/24/[address] [facility] 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 left 015 [facility] Anemia Resolved Problem 01/02/2019 [facility] Anxiety Resolved Problem 01/02/2019 [facility] Asthma Resolved Problem 01/02/2019 [facility] Depression Resolved Problem 01/02/2019 [facility] Neuro,[facility] HTN (<span Resolved Problem 01/02/2019 [facility] ID="[id number]">C Neuro, onfirmed</span>) [facility] Hyperthyroidism Resolved Problem 01/02/2019 [facility] MS (<span Resolved Problem 01/02/2019 [facility] ID="[id number]">C Neuro, onfirmed</span>) [facility] Seizure Resolved Problem 01/02/2019 [facility] Vertigo Active Problem 01/02/2019 [facility] Multiple sclerosis Inactive Finding 08/24/[address] [facility] Hypertensive Inactive Finding 08/24/[address] [facility] disorder, systemic [facility] Hyperlipidemia Inactive Finding 08/24/[address] [facility] Colitis Inactive Finding 08/24/[address] [facility] Urinary tract Inactive Finding 08/24/[address] [facility] infectious disease [facility] Pernicious anemia Inactive Finding 08/24/[address] [facility] Backache Inactive Finding 08/24/[address] [facility] Asthma Inactive Finding 08/24/[address] [facility] Gastroesophageal Inactive Finding 08/24/[address] [facility] [address] reflux disease [facility] Osteoarthritis of Inactive Finding 08/24/[address] [facility] multiple joints [facility] Diverticulosis of Inactive Finding 08/24/[address] [facility] [address] colon without [facility] diverticulitis [facility] Hematemesis Active Finding 08/24/[address] [facility] Melena Active Finding 08/24/[address] [facility] Nausea & vomiting Active Finding 08/24/[address] [facility] GASTROINTESTINAL Active [facility] HEMORRHAGE, UNSPECIFIED ANEMIA, UNSPECIFIED Active [facility] UNSP FRACTURE OF Active [facility] SHAFT OF HUMERUS, Medical UNSP Center Medications Medication Details Route Status Patient Ordering Order Source Instructions Provider Date Levetiracetam 750 mg=1 tab, Active [facility] 750 MG Oral PO, BID, 0 2017 Medical Tablet [Keppra] Refill(s) [facility] enoxaparin 40 40 mg=0.4 mL, Active [place] mg/0.4 mL SUB-Q, 2018 Medical subcutaneous [id number], X 21 Center solution day, # 8 mL, 0 Refill(s), [facility] [address] Ergocalciferol 50,000 Active [facility] [address] UNT Oral IntlUnit=1 cap, 2018 Medical Capsule PO, Q7D, # 5 Center cap, 0 Refill(s), [facility] [facility] [address] Calcium 1 tab, CHEW, Active [facility] Carbonate 1250 BID, # 60 tab, 2018 Medical MG / 0 Refill(s), [place] Cholecalciferol Pharmacy: 400 UNT Chewable [facility] [place] [address] oxyCODONE 5 mg 10 mg, 2 tab, Inactive [facility] oral tablet Route: PO, Drug 2017 Medical form: TAB, Center ONCE, Start date: 02/06/18 10:42:00 CDT, Stop date: 02/06/18 10:42:00 CDTNotes: (Same as: Roxicodone) Oxycodone 10 mg, 2 tab, Inactive [facility] Hydrochloride 5 Route: PO, Drug 2018 Medical MG Oral Tablet form: TAB, Center ONCE, Dosing Weight 47.273, kg, Start date: 02/05/18 19:32:00 CDT, Stop date: 02/05/18 19:32:00 CDTNotes: (Same as: Roxicodone) Calcium 1 tab, Route: No Longer [facility] Carbonate 1250 CHEW, Drug Active 2018 Medical MG / Form: TAB, Center Cholecalciferol Dosing Weight 400 UNT Chewable 47.273, kg, Tablet BID, Start date: 02/05/18 9:00:00 CDT, Duration: 30 day, Stop date: 03/06/18 17:00:00 CDTNotes: (calcium carbonate-vit D 500mg-400unit TAB) Same as: Oyster-D, OsCal-D Ergocalciferol 50,000 No Longer [facility] [address] UNT Oral IntlUnit, 1 Active 2018 Medical Capsule cap, Route: PO, Center Drug form: CAP, Q7D, Dosing Weight 47.273, kg, Start date: 02/05/18 7:00:00 CDT, Duration: 30 day, Stop date: 03/05/18 9:00:00 CDTNotes: (Same as: Vitamin D) "Do Not Crush" Thyroxine 25 microgram, 1 No Longer [facility] tab, Route: PO, Active 2017 Medical Drug form: TAB, [place] [id number], Dosing Weight 47.001, kg, Start date: 02/05/18 6:30:00 CDT, Duration: 30 day, Stop date: 03/06/18 6:30:00 CDTNotes: Take 1 hour before or 2 hours after meal; Enteral feeds may interefere with the absorption of this medication. (Same as:Levothroid) Oxycodone 10 mg, 2 tab, Inactive [facility] Hydrochloride 5 Route: PO, Drug 2018 Medical MG Oral Tablet form: TAB, Center ONCE, Dosing Weight 47.273, kg, PRN Pain Score 7-10, Priority: NOW, Start date: 02/05/18 5:37:00 CDTNotes: (Same as: Roxicodone) Cefazolin 2 gm, 20 mL, Inactive [facility] Route: IVP, 2017 Medical Drug form: [place] SOLN, Q8H, Dosing Weight 51.818, kg, Start date: 02/05/18 0:00:00 CDT, Duration: 3 doses or times, Stop date: 02/05/18 16:00:00 CDT, ABX Indication: Surgical ProphylaxisNote s: (Same as Ancef) sugammadex 200 mg, 2 mL, No Longer [facility] Route: IV, Drug Active 2017 Medical form: SOLN, [place] ONCALL, Start date: 02/04/18 21:43:00 CDT, Duration: 1 doses or times, Stop date: 02/04/18 21:44:00 CDTNotes: (Same as: Bridion) Amitriptyline 25 mg, 1 tab, No Longer 05/25[facility] Route: PO, Drug Active 2017 Medical form: TAB, Center Bedtime, Dosing Weight 47.001, kg, Start date: 02/04/18 21:00:00 CDT, Duration: 30 day, Stop date: 03/05/18 21:00:00 CDTNotes: (Same as: Elavil) Singulair 10 mg, 1 tab, No Longer [facility] Route: PO, Drug Active 2017 Medical form: TAB, Center Bedtime, Dosing Weight 47.001, kg, Start date: 02/04/18 21:00:00 CDT, Duration: 30 day, Stop date: 03/05/18 21:00:00 CDTNotes: (Same as:Singulair) Ondansetron 4 mg, Route: Inactive [address] [place] [address] IVP, ONCE, 2017 Medical Dosing Weight Center 51.818, kg, PRN Nausea & Vomiting, Start date: 02/04/18 19:10:00 CDT Hydralazine 10 mg, Route: Inactive [address] [place] [address] IVP, Q20Min, 2017 Medical Dosing Weight Center 51.818, kg, PRN Elevated BP, Start date: 02/04/18 19:10:00 CDT, Duration: 2 doses or times, Stop date: Limited # of times Labetalol 10 mg, Route: Inactive [address] [place] [address] IVP, Q5Min, 2017 Medical Dosing Weight Center 51.818, kg, PRN Elevated BP, Start date: 02/04/18 19:10:00 CDT, Duration: 5 doses or times, Stop date: Limited # of times Flumazenil 0.2 mg, Route: Inactive [address] [place] [address] IVP, PRN, 2017 Medical Dosing Weight Center 51.818, kg, PRN Benzodiazepine Reversal, Initial dose, Start date: 02/04/18 19:10:00 CDT, Duration: 30 day, Stop date: 03/06/18 19:09:00 CDT Naloxone 0.4 mg, Route: Inactive [address] [place] [address] IVP, Q2MIN, 2017 Medical Dosing Weight Center 51.818, kg, PRN Narcotic Reversal, Start date: 02/04/18 19:10:00 CDT, Duration: 8 doses or times, Stop date: Limited # of times Hydromorphone 0.5 mg, Route: Inactive [facility] IVP, Q5Min, 2018 Medical Dosing Weight Center 51.818, kg, PRN Pain Score 7-10, Start date: 02/04/18 19:10:00 CDT, Duration: 4 doses or times, Stop date: Limited # of times Oxycodone 5 mg, Route: Inactive [facility] PO, Drug form: 2018 Medical TAB, Q4H, Center Dosing Weight 51.818, kg, PRN Pain Score 4-6, Start date: 02/04/18 19:10:00 CDT, Duration: 30 day, Stop date: 03/06/18 19:09:00 CDT ondansetron Route: IV, Drug Inactive [facility] (ANES) form: INJ, 2017 Medical ONCE, Stop Center date: 02/04/18 18:58:00 CDT albuterol (ANES) Route: Inactive [facility] INHALATION, 2018 Medical Drug form: [place] AERO/A, ONCE, Stop date: 02/04/18 18:16:00 CDT acetaminophen Route: IV, Drug Inactive [facility] (ANES) 10 mg form: INJ, 2017 Medical Start date: [place] 02/04/18 18:00:00 CDT, Stop date: 02/04/18 19:00:00 CDT hydromorphone Route: IV, Drug Inactive [facility] (ANES) form: INJ, 2017 Medical ONCE, Stop Center date: 02/04/18 17:51:00 CDT dexamethasone Route: IV, Drug Inactive [facility] (ANES) form: INJ, 2018 Medical ONCE, Stop Center date: 02/04/18 17:51:00 CDT rocuronium Route: IV, Drug Inactive [facility] (ANES) form: INJ, 2017 Medical ONCE, Stop Center date: 02/04/18 17:20:00 CDT fentaNYL (ANES) Route: IV, Drug Inactive [facility] form: INJ, 2017 Medical ONCE, Stop Center date: 02/04/18 17:10:00 CDT propofol (ANES) Route: IV, Drug Inactive [facility] form: INJ, 2018 Medical ONCE, Stop Center date: 02/04/18 17:10:00 CDT lidocaine (ANES) Route: IV, Drug Inactive [facility] form: INJ, 2018 Medical ONCE, Stop Center date: 02/04/18 17:10:00 CDT ondansetron Route: IV, Drug Inactive [facility] (ANES) form: INJ, 2017 Medical ONCE, Stop Center date: 02/04/18 17:10:00 CDT ceFAZolin (ANES) Route: IV, Drug Inactive [facility] form: INJ, 2017 Medical ONCE, Stop Center date: 02/04/18 17:05:00 CDT phenylephrine Route: IV, Drug Inactive [facility] (ANES) form: INJ, 2017 Medical ONCE, Stop Center date: 02/04/18 17:05:00 CDT ePHEDrine (ANES) Route: IV, Drug Inactive [facility] form: INJ, 2017 Medical ONCE, Stop Center date: 02/04/18 17:05:00 CDT Lactated Ringers Route: IV, Inactive [facility] Injection IV Total Volume: 2018 Medical (ANES) 1000 mL 1,000, Start Center date: 02/04/18 15:35:00 CDT, Stop date: 02/04/18 16:35:00 CDT Lovenox 40 mg, 0.4 mL, No Longer [facility] Route: SUB-Q, Active 2017 Medical Drug form: INJ, [place] [id number], Dosing Weight 51.818, kg, Start date: 02/04/18 14:00:00 CDT, Duration: 30 day, Stop date: 03/05/18 14:00:00 CDTNotes: (Same as: Lovenox) Ancef 2 gm, 20 mL, Inactive [facility] Route: IVPB, 2017 Medical Drug form: Center SOLN, [id number], Dosing Weight 51.818, kg, Start date: 02/04/18 11:00:00 CDT, Duration: 1 day, Stop date: 02/05/18 4:00:00 CDT, ABX Indication: Surgical ProphylaxisNote s: (Same as Ancef) Levetiracetam 750 mg, 1 tab, No Longer [place] 750 MG Oral Route: PO, Drug Active 2017 Medical Tablet [Keppra] form: TAB, BID, Center Dosing Weight 47.001, kg, Start date: 02/04/18 9:00:00 CDT, Duration: 30 day, Stop date: 03/05/18 17:00:00 CDTNotes: Same as Keppra Advair Diskus 1 puff, Route: Inactive [facility] 500 mcg-50 mcg INHALATION, 2018 Medical inhalation Drug Form: Center powder AERO, Dosing Weight 47.001, kg, BID, Start date: 02/04/18 9:00:00 CDT, Duration: 30 day, Stop date: 03/05/18 17:00:00 CDT Cymbalta 30 mg, Route: Inactive [facility] PO, Drug form: 2018 Medical DRC, BID, Center Dosing Weight 47.001, kg, Start date: 02/04/18 9:00:00 CDT, Duration: 30 day, Stop date: 03/05/18 17:00:00 CDT budesonide-formo 2 puff, Route: No Longer [facility] terol INHALER, Drug Active 2017 Medical Form: AERO/A, Center RBID, Start date: 02/04/18 8:00:00 CDT, Duration: 30 day, Stop date: 03/05/18 20:00:00 CDTNotes: [address] [facility],[id number] Inhale 2 puff(s) by mouth 2 times a day Carlos Chiu Mfr_ Don't use after_ Tramadol 50 mg, 1 tab, No Longer [facility] Route: PO, Drug Active 2017 Medical form: TAB, Center Q6Hnow, Dosing Weight 47.001, kg, Start date: 02/04/18 6:00:00 CDT, Duration: 30 day, Stop date: 03/06/18 0:00:00 CDTNotes: Not to exceed 400mg/day. (Same As: Ultram) Acetaminophen 1 tab, Route: No Longer [place] 325 MG / PO, Drug Form: Active 2018 Medical Hydrocodone TAB, Dosing Center Bitartrate 5 MG Weight 47.001, Oral Tablet kg, Q6H, PRN [[place] 5/325] Pain Score 4-6, Start date: 02/04/18 5:55:00 CDT, Duration: 30 day, Stop date: 03/06/18 5:54:00 CDTNotes: (Same as: [place] 325/5) Do not exceed 4gm/day of acetaminophen. Ondansetron 4 mg, 2 mL, No Longer [place] Route: IVP, Active 2018 Medical Drug form: INJ, Center Q6H, Dosing Weight 47.001, kg, PRN Nausea & Vomiting, Start date: 02/04/18 5:54:00 CDT, Duration: 30 day, Stop date: 03/06/18 5:53:00 CDTNotes: (Same as: Ed) MEDICATION WASTE Product Size: 4 mg Product Wasted: ___ mg Acetaminophen 2 tab, Route: No Longer [facility] 325 MG / PO, Drug Form: Active 2018 Medical Hydrocodone TAB, Dosing Center Bitartrate 5 MG Weight 47.001, Oral Tablet kg, Q4H, PRN Pain Score 7-10, Start date: 02/04/18 5:54:00 CDT, Duration: 30 day, Stop date: 03/06/18 5:53:00 CDTNotes: (Same as: [place] 325/5) Do not exceed 4gm/day of acetaminophen. Acetaminophen 650 mg, 2 tab, No Longer [place] Route: PO, Drug Active 2018 Medical form: TAB, Q8H, Center Dosing Weight 47.001, kg, PRN Pain 1-3/Temp > 100.4 F, Start date: 02/04/18 5:54:00 CDT, Duration: 30 day, Stop date: 03/06/18 5:53:00 CDTNotes: Do not exceed 4 gm/day. (Same as: Tylenol) Dilaudid 1 mg, Route: Inactive [facility] IVP, ONCE, 2018 Medical Dosing Weight Center 47.001, kg, Priority: STAT, Start date: 02/04/18 5:26:00 CDT, Stop date: 02/04/18 5:26:00 CDT Fentanyl 50 microgram, Inactive [facility] Route: IVP, 2017 Medical ONCE, Dosing Center Weight 47.001, kg, Priority: STAT, Start date: 02/04/18 5:21:00 CDT, Stop date: 02/04/18 5:21:00 CDT Fentanyl 50 microgram, Inactive [facility] Route: IVP, 2017 Medical ONCE, Dosing Center Weight 47.001, kg, Priority: STAT, Start date: 02/04/18 4:57:00 CDT, Stop date: 02/04/18 4:57:00 CDT Ancef 1 gm, Route: Inactive [facility] IVPB, Drug 2017 Medical form: PDR/INJ, Center ONCE, Dosing Weight 47.001, kg, Priority: STAT, Start date: 02/04/18 3:51:00 CDT, Stop date: 02/04/18 3:51:00 CDT, ABX Indication: Open Wound ProphylaxisNote s: (Same As: Ancef, Kefzol) MEDICATION WASTE Product Size: 1000 mg Product Wasted: ___ mg Fentanyl 50 microgram, 1 Inactive [facility] mL, Route: IVP, 2017 Medical Drug form: INJ, Center ONCE, Dosing Weight 47.001, kg, Priority: STAT, Start date: 02/04/18 3:49:00 CDT, Stop date: 02/04/18 3:49:00 CDTNotes: (Same as: Sublimaze) Preservative free. Fluconazole DAILY Active [facility] 2017 [facility] Levetiracetam AT BEDTIME Active [facility] St[facility] 2017 [facility] Levetiracetam DAILY WITH Active [facility] 2017 [facility] ferrous sulfate 325 mg=1 tab, Active 325 mg oral PO, Daily, # 30 2016 [facility] enteric coated tab, 0 tablet Refill(s) dexlansoprazole 60 mg=1 cap, Active 60 MG Enteric PO, Daily, # 30 2016 [facility] Coated Capsule cap, 0 [Dexilant] Refill(s) Amino Acids 2,000 mL, Rate: Inactive 4.25% with 5% 83 ml/hr, 2015 [facility] Dextrose and Infuse over: Electrolytes 24.2 hr, Route: (Clinimix E IV, Dosing Sulfite-Free) Weight 47.001 2,000 mL + kg, Total multivitam Volume: 2,011.3, Start date: 10/26/15 22:00:00, Duration: 30 day, Stop date: 11/25/15 21:59:00Notes: Same as: ClinimixE Protonix 40 mg, Route: No Longer IVP, Drug form: Active 2015 [facility] INJ, BID, Dosing Weight 47.001, kg, Start date: 10/26/15 17:00:00, Duration: 30 day, Stop date: 11/25/15 9:00:00Notes: For IV push reconstitute with 10 ml 0.9% sodium chloride and push over 2 minutes. 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 for use Active 2015 [facility] 250 mL with blood product administration, Dosing Weight 47.001, kg, Route: IV, Total Volume: 250, Start Date: 10/25/15 16:16:00, Duration: 30 day, Stop date: 11/24/15 16:15:00, Replace Every: 24 hr Sodium Chloride 100 mL, Rate: No Longer 0.154 MEQ/ML 10 ml/hr, Active 2015 [facility] Injectable Infuse over: 10 Solution hr, Route: IVPB, Dosing Weight 47.001 kg, Total Volume: 100, Infuse at 8 mg / hr for 72 hours for GI bleeding, Start date: 10/25/15 14:40:00, Duration: 72 hr, Stop date: 10/28/15 14:39:00 Reglan 5 mg, 1 mL, No Longer Route: IVP, Active 2015 [facility] Drug form: INJ, Q6H, Dosing Weight 47.001, kg, Start date: 10/25/15 12:00:00, Stop date: 11/24/15 6:00:00Notes: (Same as: Reglan) Morphine 2 mg, 1 mL, Inactive Route: IVP, 2015 [facility] Drug form: INJ, ONCE, Dosing Weight 47.001, kg, Start date: 10/25/15 8:51:00, Stop date: 10/25/15 8:51:00Notes: (Same as:MORPhine Sulfate) Calcium 1,000 mg, 2 No Longer Carbonate 500 MG tab, Route: Active 2015 [facility] Chewable Tablet CHEW, Drug form: CHEWTAB, PRN, Dosing Weight 47.001, kg, PRN Abnormal Lab Result, FOR ICU USE ONLY, Start date: 10/25/15 2:39:00, Duration: 30 day, Stop date: 11/24/15 2:38:00Notes: (Same As: Tums) Calcium Carbonate 500 gr=477 mg elemental calcium Dose= mg calcium carbonate ( mg elemental calcium) Magnesium 2 gm, 50 mL, No Longer Sulfate Route: IVPB, Active 2015 [facility] Drug form: INJ, PRN, Dosing Weight 47.001, kg, PRN Abnormal Lab Result, Start date: 10/25/15 2:39:00, Duration: 30 day, Stop date: 11/24/15 2:38:00, FOR ICU USE ONLYNotes: WASTE: F/P - Sink; E - Municipal Trash Bin Neutra-Phos 2 pkt, Route: No Longer PO, Drug Form: Active 2015 [facility] PDR/REC, Dosing Weight 47.001, kg, PRN, PRN Abnormal Lab Result, FOR ICU USE ONLY, Start date: 10/25/15 2:39:00, Duration: 30 day, Stop date: 11/24/15 2:38:00Notes: (Same as: Neutra-Phos) Each 1.25 gm pkt has 250mg phosphorous. Mix w/2.5oz water and stir. Calcium 1 gm, 50 mL, No Longer Gluconate Route: IVPB, Active 2015 [facility] Drug form: INJ, PRN, Dosing Weight 47.001, kg, PRN Abnormal Lab Result, Start date: 10/25/15 2:39:00, Duration: 30 day, Stop date: 11/24/15 2:38:00, FOR ICU USE ONLYNotes: WASTE: F/P - Sink; E - Municipal Trash Bin Magnesium Oxide 800 mg, 2 tab, No Longer Route: PO, Drug Active 2015 [facility] form: TAB, PRN, Dosing Weight 47.001, kg, PRN Abnormal Lab Result, FOR ICU USE ONLY, Start date: 10/25/15 2:39:00, Duration: 30 day, Stop date: 11/24/15 2:38:00Notes: (Same as: Mag-Ox 400) Magnesium oxide [id number] elemental magnesium Dose=____mg magnesium oxide (___mg elemental magnesium) potassium 30 mmol, 250 No Longer phosphate mL, Route: 2015 [facility] IVPB, Drug form: INJ, PRN, Dosing Weight 47.001, kg, PRN Abnormal Lab Result, Start date: 10/25/15 2:39:00, Duration: 30 day, Stop date: 11/24/15 2:38:00, FOR ICU USE ONLYNotes: (Same as: K Phosphate.) sodium phosphate 30 mmol, 250 No Longer mL, Route: 2015 [facility] IVPB, Drug form: INJ, PRN, Dosing Weight 47.001, kg, PRN Abnormal Lab Result, Start date: 10/25/15 2:39:00, Duration: 30 day, Stop date: 11/24/15 2:38:00, FOR ICU USE ONLY sodium phosphate 45 mmol, 15 mL, No Longer + Sodium Route: IVPB, 2015 [facility] Chloride 0.9% IV PRN, Dosing 250 mL Weight 47.001, kg, PRN Abnormal Lab Result, Start date: 10/25/15 2:39:00, Duration: 30 day, Stop date: 11/24/15 2:38:00, FOR ICU USE ONLY potassium 45 mmol, 15 mL, No Longer phosphate + Route: IVPB, Active 2015 [facility] Sodium Chloride PRN, Dosing 0.9% IV 250 mL Weight 47.001, kg, PRN Abnormal Lab Result, Start date: 10/25/15 2:39:00, Duration: 30 day, Stop date: 11/24/15 2:38:00, FOR ICU USE ONLYNotes: (Same as: K Phosphate.) 1 mMol phoshate has 1.47 mEq potassium Infuse over 4 hours potassium 20 mEq, 1 tab, No Longer chloride Route: PO, Drug Active 2015 [facility] form: ERTAB, PRN, Dosing Weight 47.001, kg, PRN Abnormal Lab Result, Start date: 10/25/15 2:39:00, Duration: 30 day, Stop date: 11/24/15 2:38:00, FOR ICU USE ONLYNotes: (Same as: K-Dur 20) "Do Not Crush" With food and full glass of water Amitriptyline 25 mg, 1 tab, No Longer Route: PO, Drug Active 2015 [facility] form: TAB, Bedtime, Dosing Weight 47.001, kg, Start date: 10/24/15 21:00:00, Duration: 30 day, Stop date: 11/22/15 21:00:00Notes: (Same as: Elavil) morphine Sulfate 2 mg, 1 mL, No Longer Route: IV, Drug Active 2015 [facility] form: INJ, Q4H, PRN Pain Score 4-6, Start date: 10/24/15 15:27:00, Duration: 30 day, Stop date: 11/23/15 15:26:00Notes: (Same as:MORPhine Sulfate) Phenergan 12.5 mg, 0.5 No Longer mL, Route: IM, Active 2015 [facility] Drug form: INJ, Q8H, PRN Nausea, Start date: 10/24/15 15:26:00, Duration: 30 day, Stop date: 11/23/15 15:25:00Notes: Do not give IV push. (Same as: Phenergan) carvedilol 3.125 mg, 1 No Longer tab, Route: PO, 2015 [facility] Drug form: TAB, BID, Dosing Weight 47.001, kg, Start date: 10/24/15 9:00:00, Duration: 30 day, Stop date: 11/22/15 17:00:00Notes: Give with food. (Same As: Coreg) 24 HR Etodolac 500 mg, 1 tab, Inactive 500 MG Extended Route: PO, Drug 2015 [facility] Release Tablet form: ERTAB, BID, Dosing Weight 47.001, kg, Start date: 10/24/15 9:00:00, Duration: 30 day, Stop date: 11/22/15 17:00:00 Nexium 40 mg, Route: Inactive PO, Daily, 2015 [facility] Dosing Weight 47.001, kg, Start date: 10/24/15 9:00:00, Duration: 30 day, Stop date: 11/22/15 9:00:00 168 HR Clonidine 1 patch, Route: No Longer 0.19460 MG/HR TOP, Drug Form: Active 2015 [facility] Transdermal ERFILM, Dosing Patch Weight 47.001, kg, qWeek, Start date: 10/24/15 8:44:00, Duration: 30 day, Stop date: 11/21/15 9:00:00Notes: Patch delivers 0.1 mg/24 hours; Patch is applied weekly. "Remove old patch before application of new patch" (Same As: Xievqmqt-QRT-6) Advair Diskus 1 puff, Route: Inactive 500 mcg-50 mcg INHALATION, 2015 [facility] inhalation Drug Form: powder AERO, Dosing Weight 47.001, kg, RBID, Start date: 10/24/15 8:44:00, Duration: 30 day, Stop date: 11/23/15 8:00:00Notes: (Same as: Advair) Methocarbamol 500 mg, 1 tab, No Longer Route: PO, Drug Active 2015 [facility] form: TAB, Q8H, Dosing Weight 47.001, kg, PRN Muscle Spasms, Start date: 10/24/15 7:56:00, Duration: 30 day, Stop date: 11/23/15 7:55:00Notes: (Same as:Robaxin) Meclizine 25 mg, 1 tab, No Longer Route: PO, Drug Active 2015 [facility] form: TAB, TID, Dosing Weight 47.001, kg, PRN Dizziness, Start date: 10/24/15 7:56:00, Duration: 30 day, Stop date: 11/23/15 7:55:00Notes: (Same as: Antivert) Hyoscyamine 0.125 mg, 1 No Longer tab, Route: SL, Active 2015 [facility] Drug form: TAB, Q6H, Dosing Weight 47.001, kg, PRN Spasm, Start date: 10/24/15 7:56:00, Duration: 30 day, Stop date: 11/23/15 7:55:00, Irritable bowel symdromeNotes: (Same as: Levsin) Take 30 min before meal Acetaminophen 2 tab, Route: No Longer 325 MG / PO, Drug Form: Active 2015 [facility] Hydrocodone TAB, Dosing Bitartrate 5 MG Weight 47.001, Oral Tablet kg, Q6H, PRN [Tustin 5/325] Pain Score 4-6, Start date: 10/24/15 7:55:00, Duration: 30 day, Stop date: 11/23/15 7:54:00Notes: (Same as: Tustin 325/5) Do not exceed 4gm/day of acetaminophen. Alprazolam 0.25 0.25 mg, 1 tab, No Longer MG Oral Tablet Route: PO, Drug Active 2015 [facility] form: TAB, TID, Dosing Weight 47.001, kg, PRN Anxiety, Start date: 10/24/15 7:55:00, Stop date: 11/23/15 7:54:00Notes: With food or milk (Same as: Xanax) Clonidine 0.2 mg, 1 tab, Inactive Hydrochloride Route: PO, Drug 2015 [facility] 0.2 MG Oral form: TAB, Q8H, Tablet Dosing Weight 47.001, kg, Start date: 10/24/15 0:00:00, Duration: 30 day, Stop date: 11/22/15 16:00:00Notes: (Same As: Catapres) Amlodipine 10 mg, 1 tab, No Longer Route: PO, Drug Active 2015 [facility] form: TAB, Daily, Dosing Weight 47.001, kg, Priority: STAT, Start date: 10/23/15 22:43:00, Duration: 30 day, Stop date: 11/22/15 9:00:00Notes: (Same as: Norvasc) Cardene 40 mg in 40 mg, 200 mL, No Longer NS 200 mL Rate: Titrate, Active 2015 [facility] (Titrate.) IV 40 Start Dose: 5 mg mg/hr, Titration: Goal SBP Notes: Same as: Cardene Concentration: (0.2 mg /1 ml ) Labetalol 20 mg, 4 mL, No Longer Route: IVP, 2015 [facility] Drug form: INJ, Q2H, Dosing Weight 47.001, kg, PRN Hypertension, Start date: 10/23/15 22:42:00, Duration: 3 day, Stop date: 10/26/15 22:41:00Notes: (Same as: Normodyne, Trandate) Push over 2 minutes Give bolus over 2-3 minutes. Zofran 4 mg, 2 mL, No Longer Route: IVP, 2015 [facility] Drug form: INJ, Q4H, PRN Nausea, Start date: 10/23/15 19:05:00, Duration: 30 day, Stop date: 11/22/15 19:04:00Notes: (Same as: Zofran) MEDICATION WASTE Product Size: 4 mg Product Wasted: ___ mg Ondansetron 4 mg, 2 mL, Inactive Route: IVP, 2015 [facility] Drug form: INJ, Q8H, Dosing Weight 47.001, kg, PRN Nausea & Vomiting, Start date: 10/23/15 17:49:00, Duration: 30 day, Stop date: 11/22/15 17:48:00Notes: (Same as: Zofran) MEDICATION WASTE Product Size: 4 mg Product Wasted: ___ mg Sublimaze 200 microgram, No Longer 4 mL, Route: Active 2015 [facility] IV, Drug form: INJ, ONCE, Start date: 10/23/15 17:30:00, Stop date: 10/23/15 17:30:00Notes: (Same as: Sublimaze) Preservative free. midazolam 3 mg, 3 mL, No Longer Route: IV, Drug Active 2015 [facility] form: INJ, ONCE, Start date: 10/23/15 17:30:00, Stop date: 10/23/15 17:30:00Notes: (Same as: Versed) MEDICATION WASTE Product Size: 2 mg Product Wasted: ___ mg Thyroxine 25 microgram, 1 No Longer tab, Route: PO, Active 2015 [facility] Drug form: TAB, Q630AM, Dosing Weight 47.001, kg, Start date: 10/23/15 6:30:00, Duration: 30 day, Stop date: 11/21/15 6:30:00Notes: Take 1 hour before or 2 hours after meal; Enteral feeds may interefere with the absorption of this medication. (Same as:Levothroid) Sublimaze 25 microgram, No Longer 0.5 mL, Route: Active 2015 [facility] IVP, Drug form: INJ, Q3H, PRN Pain Score 4-6, Start date: 10/22/15 21:47:00, Duration: 30 day, Stop date: 11/21/15 21:46:00Notes: (Same as: Sublimaze) Preservative free. Saline Flush 10 ml, Route: No Longer 0.9% IVP, Drug Form: Active 2015 [facility] INJ, Dosing Weight 47.001, kg, Q12H, Start date: 10/22/15 21:00:00, Duration: 30 day, Stop date: 11/21/15 9:00:00Notes: (Same as: BD Posiflush) sennosides, INTERMEDIATE 8.6 mg, 1 tab, No Longer Route: PO, Drug Active 2015 [facility] Form: TAB, Dosing Weight 47.001, kg, Q12H, Start date: 10/22/15 21:00:00, Duration: 30 day, Stop date: 11/21/15 9:00:00Notes: (Same as: Senokot) Docusate 100 mg, 1 cap, No Longer Route: PO, Drug Active 2015 [facility] form: CAP, Q12H, Dosing Weight 47.001, kg, Start date: 10/22/15 21:00:00, Duration: 30 day, Stop date: 11/21/15 9:00:00Notes: (Same as: Colace) (Do Not Crush) Singulair 10 mg, 1 tab, No Longer Route: PO, Drug Active 2015 [facility] form: TAB, Bedtime, Dosing Weight 47.001, kg, Start date: 10/22/15 21:00:00, Duration: 30 day, Stop date: 11/20/15 21:00:00Notes: (Same as:Singulair) budesonide-formo 2 inhalation, No Longer terol 160 Route: Active 2015 [facility] mcg-4.5 mcg/inh INHALATION, inhalation Drug Form: aerosol with AERO/A, BID, adapter Start date: 10/22/15 17:00:00, Duration: 30 day, Stop date: 11/21/15 9:00:00Notes: (Same as: Symbicort) WASTE: Aerosol - Return to Pharmacy Seroquel 25 mg, 1 tab, No Longer Route: PO, Drug Active 2015 [facility] form: TAB, BID, Dosing Weight 47.001, kg, Start date: 10/22/15 17:00:00, Duration: 30 day, Stop date: 11/21/15 9:00:00Notes: (Same as: SEROquel) Levetiracetam 750 mg, 7.5 mL, No Longer 750 MG Oral Route: PO, Drug Active 2015 [facility] Tablet [Keppra] form: SOLN, BID, Dosing Weight 47.001, kg, Start date: 10/22/15 17:00:00, Duration: 30 day, Stop date: 11/21/15 9:00:00Notes: Same as: Keppra Cymbalta 30 mg, 1 cap, No Longer Route: PO, Drug Active 2015 [facility] form: DRC, BID, Dosing Weight 47.001, kg, Start date: 10/22/15 17:00:00, Duration: 30 day, Stop date: 11/21/15 9:00:00Notes: (Same as: Cymbalta) (Do Not Crush) Advair Diskus 1 puff, Route: Inactive 500 mcg-50 mcg INHALATION, 2016 [facility] inhalation Drug Form: powder AERO, Dosing Weight 47.001, kg, BID, Start date: 10/22/15 17:00:00, Duration: 30 day, Stop date: 11/21/15 9:00:00 ibandronic acid 150 mg=1 tab, No Longer 150 MG Oral PO, qMonth, Active 2015 [facility] Tablet [Boniva] Swallow whole w/6-8oz water 1HR before first food, drink, med-Do not lie down for 1HR & until after first food, # 1 tab, 0 Refill(s) Acetaminophen 2 tab, PO, Q6H, Active 325 MG / PRN for pain, 0 2015 [facility] Hydrocodone Refill(s) Bitartrate 5 MG Oral Tablet [Tustin 5/325] carvedilol 3.125 3.125 mg=1 tab, Active mg oral tablet PO, BID, # 180 2016 [facility] tab, 1 Refill(s) dexlansoprazole 60 mg=1 cap, No Longer 60 MG Enteric PO, Daily, # 30 Active 2016 [facility] Coated Capsule day, 1 [Dexilant] Refill(s) duloxetine 30 MG 30 mg=1 cap, Active Enteric Coated PO, BID, # 60 2016 [facility] Capsule cap, 0 [Cymbalta] Refill(s) methocarbamol 500 mg=1 tab, Active 500 mg oral PO, Q8H, PRN 2016 [facility] tablet Spasms, # 60 tab, 0 Refill(s) Levetiracetam 750 mg=1 tab, Active 750 MG Oral PO, BID, # 60 2016 [facility] Tablet [Keppra] tab, 2 Refill(s) montelukast 10 10 mg=1 tab, Active MG Oral Tablet PO, Bedtime, # 2016 [facility] [Singulair] 30 tab, 0 Refill(s) 168 HR Clonidine 1 patch, TOP, Active 0.42884 MG/HR qWeek, # 12 2016 [facility] Transdermal patch, 0 Patch Refill(s) quetiapine 25 MG 25 mg=1 tab, Active Oral Tablet PO, BID, 0 2016 [facility] [Seroquel] Refill(s) linaclotide 145 microgram=1 Active 0.145 MG Oral cap, PO, Daily, 2015 [facility] Capsule 30 minutes [Linzess] prior to the first meal of the day, # 30 cap, 0 Refill(s) etodolac 500 mg 500 mg=1 tab, No Longer oral tablet PO, BID, # 60 Active 2015 [facility] tab, 1 Refill(s) meclizine 25 mg 25 mg=1 tab, Active oral tablet PO, TID, PRN 2015 [facility] for dizziness, # 60 tab, 0 Refill(s) Nexium 40 mg, PO, No Longer Daily, 0 Active 2015 [facility] Refill(s) levocetirizine 5 5 mg=1 tab, PO, Active mg oral tablet Bedtime, PRN as 2015 [facility] needed for allergy symptoms, # 30 tab, 0 Refill(s) hyoscyamine 0.125 mg=1 tab, Active 0.125 mg SL, Q6H, PRN 2015 [facility] sublingual Spasms, # 30 tablet tab, 0 Refill(s) Alprazolam 0.25 0.25 mg=1 tab, Active MG Oral Tablet PO, TID, PRN 2015 [facility] Anxiety, # 30 tab, 0 Refill(s) amitriptyline 25 25 mg=1 tab, Active mg oral tablet PO, Bedtime, # 2016 [facility] 30 tab, 1 Refill(s) Advair Diskus 1 puff, Active 500 mcg-50 mcg INHALATION, 2015 [facility] inhalation BID, # 1 ea, 3 powder Refill(s) levothyroxine 25 25 microgram=1 Active mcg (0.025 mg) tab, PO, Daily, 2015 [facility] oral tablet # 30 tab, 1 Refill(s) Amlodipine 5 mg, PO, BID, Active 0 Refill(s) 2015 [facility] Sodium Chloride 100 mL, Rate: No Longer 0.154 MEQ/ML 10 ml/hr, Active 2015 [facility] Injectable Infuse over: 10 Solution hr, Route: IVPB, Dosing Weight 47.001 kg, Total Volume: 100, Infuse at 8 mg / hr for 72 hours for GI bleeding, Start date: 10/22/15 12:59:00, Duration: 72 hr, Stop date: 10/25/15 12:58:00 Saline Flush 10 ml, Route: No Longer 0.9% IVP, Drug Form: Active 2015 [facility] INJ, Dosing Weight 47.001, kg, PRN, PRN Line Flush, Start date: 10/22/15 12:55:00, Duration: 30 day, Stop date: 11/21/15 12:54:00Notes: (Same as: BD Posiflush) Duloxetine DAILY WITH Active [facility] BREAKFAST [facility] [place] Butalb/Acetamino FOUR TIMES Active St. phen/Caffeine DAILY PRN For 2016 [facility] [place] Carvedilol TWICE DAILY Active St[facility] [place] Hydrocodone/Acet THREE TIMES Active St. aminophen DAILY NEEDED 2016 [facility] PRN For Pain [place] Etodolac TWICE DAILY Active [facility] [place] Pregabalin AT BEDTIME Active [facility] [place] Methocarbamol AT BEDTIME Active St[facility] [place] Diclofenac THREE TIMES A Active St. Sodium DAY 2014 [facility] [place] Esomeprazole Mag DAILY Active St. Trihydrate 2014 [facility] [place] Ibandronate SEE COMMENT Inactive St[facility] Sodium 2014 [facility] [place] Losartan TWICE DAILY Active St. Potassium 2014 [facility] [place] Meclizine Hcl THREE TIMES Active [facility] DAILY NEEDED [facility] PRN For [place] Dizziness Alprazolam AT BEDTIME PRN Active St. For Anxiety 2014 [facility] [place] Nitrofurantoin TWICE DAILY Active [facility] Monohyd/M-Cryst 2013 [facility] [place] Dexlansoprazole DAILY Active St[facility] 2013 [facility] [place] Linaclotide DAILY Active [facility] St[facility] 2013 [facility] [place] Esomeprazole Mag DAILY Active [facility] St[facility] Trihydrate 2012 [facility] [place] Etodolac TWICE DAILY PRN Active [facility] St[facility] For back 2012 [facility] pain/arthritis [place] Fluticasone/[place] TWICE DAILY Active [facility] St[facility] eterol 2012 [facility] [place] Levetiracetam AT BEDTIME Inactive [facility] St. 2012 [facility] [place] Mometasone TWICE DAILY Active [facility] St[facility] Furoate 2012 [facility] [place] Montelukast AT BEDTIME Active [facility] St[facility] Sodium 2012 [facility] [place] Tiotropium DAILY Active [facility] St[facility] Big Arm 2012 [facility] [place] Albuterol EVERY 4 HOURS Active [facility] St. NEEDED PRN 2012 [facility] For sob [place] Hydrocodone FOUR TIMES Active [facility] St. Bit/Acetaminophe DAILY NEEDED 2012 [facility] n PRN For Pain [place] Levothyroxine DAILY Active [facility] St. 2012 [facility] [place] Methocarbamol Q6H Active [facility] St[facility] 2012 [facility] [place] Quetiapine AT BEDTIME Inactive [facility] St[facility] Fumarate 2012 [facility] [place] Ciprofloxacin TWICE DAILY Active [facility] St. Hcl 2012 [facility] [place] Levetiracetam TWICE DAILY Active [facility] St. 2012 [facility] [place] Azelastine Active [facility] St[facility] 2012 [facility] [place] Mometasone 0.1% Active [facility] St. 2012 [facility] [place] Amlodipine Active [facility] St[facility] Besylate 2012 [facility] [place] Carvedilol Active [facility] St[facility] 2012 [facility] [place] Iron Active [facility] St. 2012 [facility] [place] Multivit with Active [facility] St. Calcium,Iron,Min 2012 [facility] [place] Nexium Active [facility] St[facility] 2012 [facility] [place] Folic Acid Active [facility] St[facility] 2012 [facility] [place] Etodolac Active 10/15/ [facility] [place] Montelukast Active 10/15/ [facility] Sodium 2012 [facility] [place] Boniva Active 10/15/ [facility] St[facility] 2011 [facility] [place] Levetiracetam Active 10/15/ [facility] [place] Duloxetine Active 10/15/ [facility] [place] Quetiapine Active 10/15/ [facility] St[facility] Fumarate 2011 [facility] [place] Hydrocodone Active 10/15/ [facility] St. Bit/Acetaminophe 2011 [facility] [place] Avonex Active 10/15/ [facility] [place] Sumatriptan Active 10/15/ [facility] [place] Proventil Active 10/15/ [facility] 2012 [facility] [place] Allergies, Adverse Reactions, Alerts Substance Category Reaction Severity Reaction Status Date Comments Source type Reported amoxicillin Itching Moderate Allergy to Active [facility] trihydrate Substance [facility] [place] potassium Itching Moderate Allergy to Active [facility] clavulanate Substance [facility] [place] Sulfa Itching Moderate Allergy to Active [facility] (Sulfonamide Substance 7 [facility] [place] Augmentin Unknown Allergy to Active [facility] ES-600 Substance [facility] [place] sulfa drugs Assertion Drug Active [facility] Augmentin Assertion Drug Active [facility] Immunizations Immunization Date Given Site Status Last Comments Source Updated Influenza Adult 06/29/2015 completed [facility] [place] Results Order Name Results Value Reference Date Interpretation Comments Source Range HEMATOLOGY Hct 25.5 % 36.0 - 02/06 [place] 48.0 /2018 [facility] HEMATOLOGY Hgb 8.6 g/dL 12.0 - 02/06 [facility] 16.0 [facility] CHEM PANEL Vitamin D, 12.4 ng/mL 30.0 - 02/05 [facility] 25-OH, Total 100.0 /2017 [facility] ELECTROLYT AGAP 13.9 meq/L 10.0 - 02/05 [facility] ES 20.0 [facility] ELECTROLYT eGFR 82 02/05 Result Comment: The eGFR is calculated using the CKD-EPI formula. In most young, healthy individuals the eGFR will be >90 mL/ min/1.73m2. The eGFR declines with age. An eGFR of 60-89 may be normal in [facility] mL/min/1. some populations, particularly the elderly, for whom the CKD-EPI formula has not been extensively validated. Use of the eGFR is not recommended in the following populations: Medical [address] [place] [address] Individuals with unstable creatinine concentrations, including patients and those with serious co-morbid conditions. Patients with extremes in muscle mass or diet. The data above are obtained from the National Kidney Disease Education Program (NKDEP) which additionally recommends that when the eGFR is used in patients with extremes of body mass index for purposes of drug dosing, the eGFR should be multiplied by the estimated BMI. ELECTROLYT Chloride Lvl 110 meq/L 95 - 109 02/05 [facility] ELECTROLYT CO2 24 meq/L 24 - 32 02/05 [facility]2017 [facility] ELECTROLYT Sodium Lvl 144 meq/L 135 - 145 02/05 [facility] ELECTROLYT Potassium 3.9 meq/L 3.5 - 5.1 02/05 [facility] ELECTROLYT BUN 20 mg/dL 7 - 22 02/05 [facility]2017 [facility] ELECTROLYT Creatinine 0.68 mg/dL 0.50 - 02/05 [facility] Lvl 1.40 [facility] ELECTROLYT Glucose Lvl 151 mg/dL 70 - 99 02/05 [facility]2017 [facility] ELECTROLYT Calcium Lvl 7.9 mg/dL 8.5 - 10.5 02/05 [facility] HEMATOLOGY MCV 93.8 fL 80.0 - 02/05 [facility] 98.0 [facility] HEMATOLOGY MCH 31.7 pg 27.0 - 02/05 [facility] 31.0 [facility] HEMATOLOGY Hct 26.2 % 36.0 - 02/05 48.0 [facility] HEMATOLOGY Platelet 215 K/CMM 133 - 450 02/05 [facility]2017 [facility] HEMATOLOGY MCHC 33.8 g/dL 32.0 - 02/05 [facility] 36.0 [facility] HEMATOLOGY MPV 6.8 fL 7.4 - 10.4 02/05 [facility] HEMATOLOGY RDW 12.7 % 11.5 - 02/05 [facility] 14.5 [facility] HEMATOLOGY Hgb 8.9 g/dL 12.0 - 02/05 [facility] 16.0 [facility] HEMATOLOGY WBC 7.6 K/CMM 3.7 - 10.4 02/05 [facility]2017 [facility] HEMATOLOGY RBC 2.79 M/CMM 4.20 - 02/05 [facility] 5.40 [facility] HEMATOLOGY Monocytes # 1.2 K/CMM 0.0 - 0.8 02/05 [facility]2017 [facility] HEMATOLOGY Lymphocytes 1.2 K/CMM 1.0 - 5.5 02/05 [facility] # /2017 [facility] HEMATOLOGY Monocytes 16.0 % 2.0 - 12.0 02/05 [facility]2017 [facility] HEMATOLOGY Lymphocytes 15.8 % 20.0 - 02/05 [facility] 40.0 [facility] HEMATOLOGY Segs 67.9 % 45.0 - 02/05 [facility] 75.0 [facility] HEMATOLOGY Segs-Bands # 5.1 K/CMM 1.5 - 8.1 02/[address] HEMATOLOGY Basophils 0.3 % 0.0 - 1.0 02/[address] PARATHYROI PTH Intact 122.9 18.4 - 02/05 [facility] D PROFILE pg/mL 80.1 [facility] Humerus 2 Humerus 2 EXAM: XR HUMERUS 2 VIEWS 02/04 [facility] DX views DX [facility] DATE: 02/04/2018 4:28 PM CDT Read by: Adam Gutierrez MD Dictated Date/time: 02/05/18 07:33 Electronically Signed by: Adam Gutierrez MD 02/05/18 07:34 FINAL REPORT INDICATION: Post Op Alignment - Post Op Alignment COMPARISON: Right humerus series 02/04/2018 TECHNIQUE: AP and lateral radiographs of the humerus Laterality: Right FINDINGS: Generalized image density. Satisfactory alignment of mildly comminuted mid humerus diaphyseal fracture post posterior plate and screw fixation. No hardware malalignment. Healed distal humerus fracture with medial plate and screws is unchanged. Severe glenohumeral and elbow osteoarthrosis. Arm soft tissue swelling and gas. IMPRESSION: Satisfactory alignment of comminuted mid humerus diaphyseal fracture post internal fixation. BLOOD BANK ABO/Rh O POS 02/04 [facility] RESULTS [facility] BLOOD BANK Antibody Negative 02/04 [facility] RESULTS [facility] (02/04/18 4:21 AM) [place] CHEM PANEL Lactic Acid 0.9 mMol/L 0.5 - 2.2 02/04 [facility] ELECTROLYT AGAP 11.9 meq/L 10.0 - 02/04 [facility] ES 20.0 [facility] ELECTROLYT eGFR 83 02/04 Result Comment: The eGFR is calculated using the CKD-EPI formula. In most young, healthy individuals the eGFR will be >90 mL/ min/1.73m2. The eGFR declines with age. An eGFR of 60-89 may be normal in [facility] mL/min/1. some populations, particularly the elderly, for whom the CKD-EPI formula has not been extensively validated. Use of the eGFR is not recommended in the following populations: [address] Individuals with unstable creatinine concentrations, including patients and those with serious co-morbid conditions. Patients with extremes in muscle mass or diet. The data above are obtained from the National Kidney Disease Education Program (NKDEP) which additionally recommends that when the eGFR is used in patients with extremes of body mass index for purposes of drug dosing, the eGFR should be multiplied by the estimated BMI. ELECTROLYT Calcium Lvl 8.1 mg/dL 8.5 - 10.5 02/04 [facility] ELECTROLYT CO2 22 meq/L 24 - 32 02/04 [facility] ELECTROLYT Sodium Lvl 140 meq/L 135 - 145 02/04 [facility] ELECTROLYT Creatinine 0.67 mg/dL 0.50 - 02/04 [facility] Lvl 1.40 [facility] ELECTROLYT BUN 22 mg/dL 7 - 22 02/04 [facility] ELECTROLYT Glucose Lvl 135 mg/dL 70 - 99 02/04 [facility] ELECTROLYT Chloride Lvl 110 meq/L 95 - 109 02/04 [facility] ELECTROLYT Potassium 3.9 meq/L 3.5 - 5.1 02/04 [facility] HEMATOLOGY PTT 24.7 s 22.9 - 02/04 [facility] 35.8 [facility] HEMATOLOGY INR 1.01 0.85 - 02/04 [facility] 1.17 [facility] HEMATOLOGY PT 13.3 s 12.0 - 05/24 [facility] 14.7 [facility] HEMATOLOGY Platelet 232 K/CMM 133 - 450 02/04 [facility] HEMATOLOGY MPV 7.1 fL 7.4 - 10.4 02/04 [facility] HEMATOLOGY Hct 32.2 % 36.0 - 02/04 [facility] 48.0 [facility] HEMATOLOGY RBC 3.42 M/CMM 4.20 - 02/04 [facility] 5.40 [facility] HEMATOLOGY Hgb 10.8 g/dL 12.0 - 02/04 [facility] 16.0 [facility] HEMATOLOGY WBC 8.5 K/CMM 3.7 - 10.4 02/04 [facility] HEMATOLOGY MCHC 33.5 g/dL 32.0 - 02/04 [facility] 36.0 [facility] HEMATOLOGY RDW 13.0 % 11.5 - 02/04 [facility] 14.5 [facility] HEMATOLOGY MCV 94.1 fL 80.0 - 02/04 [facility] 98.0 [facility] HEMATOLOGY MCH 31.5 pg 27.0 - 02/04 [facility] 31.0 [facility] HEMATOLOGY Eosinophils 2.3 % 0.0 - 4.0 02/04 [facility] [address] [place] [address] HEMATOLOGY Lymphocytes 1.7 K/CMM 1.0 - 5.5 02/04 [facility] HEMATOLOGY Segs-Bands # 5.5 K/CMM 1.5 - 8.1 02/[address] HEMATOLOGY Basophils 0.8 % 0.0 - 1.0 02/[address] HEMATOLOGY Basophils # 0.1 K/CMM 0.0 - 0.2 02/04 [facility] HEMATOLOGY Eosinophils 0.2 K/CMM 0.0 - 0.5 02/04 [facility] HEMATOLOGY Monocytes # 1.1 K/CMM 0.0 - 0.8 02/[address] HEMATOLOGY Segs 64.6 % 45.0 - 02/04 [facility] 75.0 [facility] HEMATOLOGY Lymphocytes 19.7 % 20.0 - 02/04 [facility] 40.0 2018 [facility] HEMATOLOGY Monocytes 12.6 % 2.0 - 12.0 02/[address] Humerus 2 Humerus 2 EXAM: XR RIGHT HUMERUS 2 VIEWS 02/04 - [place] views DX views DX - [facility] DATE: 02/04/2018 4:33 AM CDT Read by: Vianca Saldaña MD Dictated Date/time: 02/04/18 05:36 Electronically Signed by: Vianca Saldaña MD 02/04/18 05:39 FINAL REPORT INDICATION: arm pain s/p fall COMPARISON: Right shoulder series February 04, 2018 at 0358 hours TECHNIQUE: AP and lateral radiographs of the right humerus DISCUSSION: A comminuted likely open fracture is again seen at the mid shaft of the right humerus. Since the shoulder series there is less posterior displacement at the fracture site. The distal humeral shaft fragment is now medially displaced by one half shaft width and posteriorly displaced by one quarter shaft width. There is angulation apex anterior. Convex soft tissue swelling is seen at the proximal right humerus circumferentially. IMPRESSION: 1. Comminuted likely open fracture at the mid shaft of the right humerus demonstrates medial displacement by one half shaft width and posterior displacement by one quarter shaft width with angulation apex anterior. 2. Regional soft tissue swelling at proximal right humerus. 3. No additional significant interval change. Shoulder Shoulder EXAM: XR RIGHT ELBOW 3 VIEWS 02/04 - [facility] series DX series - Medical EXAM: XR RIGHT FOREARM 2 VIEWS [place] EXAM: XR RIGHT SHOULDER 3 VIEWS Read by: Vianca Saldaña MD Dictated Date/time: 02/04/18 04:33 Electronically Signed by: Vianca Saldaña MD 02/04/18 04:47 FINAL REPORT DATE: 02/04/2018 at 0358 hours INDICATION: Trauma COMPARISON: None TECHNIQUE: AP, lateral and oblique radiographs of the right elbow, AP and lateral views of left forearm as well as AP views of right shoulder in internal and external rotation and an axillary view. DISCUSSION: The bones are osteopenic. Right shoulder: An acute fracture is present at the mid shaft of the right humerus with posterior medial displacement of the distal shaft fragment of three quarter shaft width and angulation apex anteri or lateral. There is advanced osteoarthritis of the right shoulder accompanied by flattening of the glenoid fossa, marginal sclerosis and marginal osteophyte formation. Subchondral cyst formation is pre sent at the articular surface of the glenoid as well as within the humeral head. Right elbow: The patient has undergone previous open reduction internal plate and screw fixation of the distal right humerus. A malleable plate is seen at the medial cortex of distal right humerus nina ing the distal diaphysis and metadiaphysis which is transfixed by 4 proximal and 3 distal bicortical fixation screws. The hardware appears intact. There is no pericardial hardware lucency to suggest loo sening. A healed prior fracture is also seen at the right radial head. 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 No significant right elbow effusion is identified. Right forearm: A healed prior fracture is present at the distal metadiaphysis of the right radius. The remainder of the right forearm appears intact. Subcutaneous emphysema is seen adjacent to the mid shaft fracture of the right humerus. Please correlate for the presence of a wound indicating an open injury. IMPRESSION: 1. Diffuse osteopenia. 2. Acute comminuted, open fracture of mid shaft right humerus associated with posterior medial displacement of three quarter shaft width and angulation apex anterior lateral. 3. 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 4. Healed prior fracture of right radial head. 5. Advanced osteoarthritis of right glenohumeral joint. Elbow 3 Elbow 3 EXAM: XR RIGHT ELBOW 3 VIEWS 02/04 - [place] views DX views /2017 - Medical EXAM: XR RIGHT FOREARM 2 VIEWS Center EXAM: XR RIGHT SHOULDER 3 VIEWS Read by: Vianca Saldaña MD Dictated Date/time: 02/04/18 04:33 Electronically Signed by: Vianca Saldaña MD 02/04/18 04:47 FINAL REPORT DATE: 02/04/2018 at 0358 hours INDICATION: Trauma COMPARISON: None TECHNIQUE: AP, lateral and oblique radiographs of the right elbow, AP and lateral views of left forearm as well as AP views of right shoulder in internal and external rotation and an axillary view. DISCUSSION: The bones are osteopenic. Right shoulder: An acute fracture is present at the mid shaft of the right humerus with posterior medial displacement of the distal shaft fragment of three quarter shaft width and angulation apex anteri or lateral. There is advanced osteoarthritis of the right shoulder accompanied by flattening of the glenoid fossa, marginal sclerosis and marginal osteophyte formation. Subchondral cyst formation is pre sent at the articular surface of the glenoid as well as within the humeral head. Right elbow: The patient has undergone previous open reduction internal plate and screw fixation of the distal right humerus. A malleable plate is seen at the medial cortex of distal right humerus nina ing the distal diaphysis and metadiaphysis which is transfixed by 4 proximal and 3 distal bicortical fixation screws. The hardware appears intact. There is no pericardial hardware lucency to suggest loo sening. A healed prior fracture is also seen at the right radial head. 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 No significant right elbow effusion is identified. Right forearm: A healed prior fracture is present at the distal metadiaphysis of the right radius. The remainder of the right forearm appears intact. Subcutaneous emphysema is seen adjacent to the mid shaft fracture of the right humerus. Please correlate for the presence of a wound indicating an open injury. IMPRESSION: 1. Diffuse osteopenia. 2. Acute comminuted, open fracture of mid shaft right humerus associated with posterior medial displacement of three quarter shaft width and angulation apex anterior lateral. 3. 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 4. Healed prior fracture of right radial head. 5. Advanced osteoarthritis of right glenohumeral joint. Forearm 2 Forearm 2 EXAM: XR RIGHT ELBOW 3 VIEWS 02/04 - [facility] views DX views /2017 - Medical EXAM: XR RIGHT FOREARM 2 VIEWS Center EXAM: XR RIGHT SHOULDER 3 VIEWS Read by: Vianca Saldaña MD Dictated Date/time: 02/04/18 04:33 Electronically Signed by: Vianca Saldaña MD 02/04/18 04:47 FINAL REPORT DATE: 02/04/2018 at 0358 hours INDICATION: Trauma COMPARISON: None TECHNIQUE: AP, lateral and oblique radiographs of the right elbow, AP and lateral views of left forearm as well as AP views of right shoulder in internal and external rotation and an axillary view. DISCUSSION: The bones are osteopenic. Right shoulder: An acute fracture is present at the mid shaft of the right humerus with posterior medial displacement of the distal shaft fragment of three quarter shaft width and angulation apex anteri or lateral. There is advanced osteoarthritis of the right shoulder accompanied by flattening of the glenoid fossa, marginal sclerosis and marginal osteophyte formation. Subchondral cyst formation is pre sent at the articular surface of the glenoid as well as within the humeral head. Right elbow: The patient has undergone previous open reduction internal plate and screw fixation of the distal right humerus. A malleable plate is seen at the medial cortex of distal right humerus nina ing the distal diaphysis and metadiaphysis which is transfixed by 4 proximal and 3 distal bicortical fixation screws. The hardware appears intact. There is no pericardial hardware lucency to suggest loo sening. A healed prior fracture is also seen at the right radial head. 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 No significant right elbow effusion is identified. Right forearm: A healed prior fracture is present at the distal metadiaphysis of the right radius. The remainder of the right forearm appears intact. Subcutaneous emphysema is seen adjacent to the mid shaft fracture of the right humerus. Please correlate for the presence of a wound indicating an open injury. IMPRESSION: 1. Diffuse osteopenia. 2. Acute comminuted, open fracture of mid shaft right humerus associated with posterior medial displacement of three quarter shaft width and angulation apex anterior lateral. 3. 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 4. Healed prior fracture of right radial head. 5. Advanced osteoarthritis of right glenohumeral joint. Laboratory Sodium Level 141 mEq/L 135 - 145 08/24 [facility] [place] [facility] Potassium 4.4 mEq/L 3.6 - 5.0 08/24 [facility] [address] Studies Level [facility] [place] [facility] Glucose 204 mg/dL 65 - 120 08/24 [facility] [address] Studies Level [facility] [place] [facility] Estimat 66 mL/min 90 08/24 [facility] [address] Studies Glomerular [email or web address] - Filtration [place] Rate Laboratory Creatinine 0.83 mg/dL 0.44 - 08/24 [facility] [address] Studies 1.00 [email or web address] [place] [facility] Chloride 108 mEq/L 101 - 111 08/24 [facility] [address] Studies Level /2016 [facility] [place] [facility] Carbon 25 mEq/L 21 - 31 08/24 [facility] [address] Studies Dioxide [email or web address] - Level [place] [facility] Calcium 8.9 mg/dL 8.5 - 10.5 08/24 [facility] [address] Studies Level 2017 [facility] [place] [facility] Blood Urea 27 mg/dL 6 - 20 08/24 [facility] [address] Studies Nitrogen /2016 [facility] [place] [facility] White Blood 5.6 K/uL 4.3 - 10.9 08/24 [facility] [address] Studies Count /2016 [facility] [place] [facility] Red Cell 11.9 % 12.1 - 08/24 [facility]. Studies Distribution 15.2 /2016 [facility] Width [place] [facility] Red Blood 3.33 M/uL 3.86 - 08/24 [facility] [address] Studies Count 4.86 /2016 [facility] [place] [facility] Platelet 240 K/uL 152 - 406 08/24 [facility] [address] Studies Count /2016 [facility] [place] [facility] Neutrophils 83.8 % 41.7 - 08/24 [facility]. Studies % 73.7 /2016 [facility] [place] [facility] Monocytes % 1.1 % 3.3 - 12.3 08/24 [facility] Studies /2016 [facility] [place] [facility] Mean 6.8 fL 7.6 - 11.3 08/24 [facility] Studies Platelet /2016 [facility] Volume [place] [facility] Mean 92.6 fL 80 - 100 08/24 [facility]. Studies Corpuscular /2016 [facility] Volume [place] [facility] Mean 35.1 g/dL 32.0 - 08/24 [facility]. Studies Corpuscular 36.0 /2016 [facility] - Hemoglobin [place] [facility] Mean 32.5 pg 27.0 - 08/24 [facility]. Studies Corpuscular 35.0 /2016 [facility] - Hemoglobin [place] [facility] Lymphocytes 14.7 % 15.3 - 08/24 [facility]. Studies % 44.8 /2016 [facility] [place] [facility] Hemoglobin 10.8 g/dL 12.0 - 08/24 [facility]. Studies 15.0 /2016 [facility] [place] [facility] Hematocrit 30.8 % 36.0 - 08/24 [facility]. Studies 45.0 /2017 [facility] [place] [facility] Eosinophils 0.0 % 0 - 4.4 08/24 [facility] St[facility] Studies % /2016 [facility] [place] [facility] Basophils % 0.4 % 0 - 1.3 08/24 [facility]. Studies /2016 [facility] [place] [facility] Absolute 4.7 K/uL 1.8 - 8.0 08/24 [facility] [address]. Studies Neutrophil /2016 [facility] [place] [facility] Absolute 0.1 K/uL 0.1 - 1.3 08/24 [facility] Studies Monocytes [facility] - (CBC) [place] [facility] Absolute 0.8 K/uL 0.7 - 4.9 08/24 [facility]. Studies Lymphocytes /2016 [facility] - (CBC) [place] [facility] Absolute 0.0 K/uL 0 - 0.5 08/24 [facility]. Studies Eosinophils [facility] - (CBC) [place] [facility] Absolute 0.0 K/uL 0 - 0.5 08/24 [facility]. Studies Basophils [facility] - (CBC) [place] [facility] B-Type 202 pg/ml 08/24 [facility] Studies Natriuretic [facility] - Peptide [place] [facility] Troponin I null 08/24 [facility]. Studies [facility] [place] [facility] Urine pH 6.0 08/23 [facility]. Studies [facility] [place] [facility] Urine Total Urine 08/23 [facility] Studies Protein Total [facility] - Protein [place] [facility] Urine 1.025 08/23 [facility] Studies Specific [facility] [place] [facility] Urine Urine 08/23 [facility] Studies Nitrite Nitrite /2016 [facility] [place] [facility] Urine Urine 08/23 [facility] Studies Leukocyte Leukocyte /2016 [facility] - Esterase Esterase [place] [facility] Urine Urine 08/23 [facility] Studies Ketones Ketones /2016 [facility] [place] [facility] Urine Urine 08/23 [facility] Studies Glucose Glucose /2016 [facility] [place] [facility] Urine Blood Urine 08/23 [facility] Studies Blood /2016 [facility] [place] [facility] Procalcitoni null 08/23 [facility] Studies n [facility] [place] [facility] Creatine 2.3 ng/ml 0.3 - 4.0 08/23 [facility] Studies Kinase MB /2016 [facility] [place] [facility] Total 0.6 mg/dL 0.3 - 1.2 08/23 [facility] Studies Bilirubin /2016 [facility] [place] [facility] Serum Total 6.6 g/dL 6.0 - 8.3 08/23 [facility] Studies Protein [facility] [place] [facility] Magnesium 1.9 mg/dL 1.8 - 2.5 08/23 [facility] Studies Level /2016 [facility] [place] [facility] Globulin 3.2 g/dL 2.3 - 3.5 08/[address] [facility] [address] Studies [facility] [place] [facility] Direct 0.1 mg/dL 0 - 0.2 08/23 [facility] Studies Bilirubin [facility] - [place] [facility] Creatine 53 IU/L 22 - 269 08/23 [facility]. Studies Kinase /2016 [facility] - [place] [facility] Aspartate 17 IU/L 10 - 42 08/23 [facility] Studies Amino Transf [facility] - (AST/SGOT) [place] [facility] Alkaline 57 IU/L 42 - 121 08/23 [facility]. Studies Phosphatase [facility] - [place] [facility] Albumin/Glob 1.1 1.1 - 1.8 08/23 [facility] Studies ulin Ratio /2016 [facility] - [place] [facility] Albumin 3.4 g/dL 3.2 - 5.5 08/23 [facility]. Studies [facility] - [place] [facility] Alanine 10 IU/L 10 - 60 08/23 [facility] Studies Aminotransfe [facility] - [facility]ase [facility] (ALT/SGPT) Laboratory Rapid null 08/23 [facility] Studies Troponin I [facility] - [place] [facility] Lipase 22 U/L 22 - 51 08/23 [facility]. Studies [facility] - [place] [facility] Prothrombin 12.1 9.5 - 12.5 08/23 [facility] Studies Time SECONDS [facility] [place] [facility] INR 1.03 08/23 [facility] Studies Internationa [facility] - l Normalized [place] Ratio Laboratory Activated 27.2 24.3 - 08/23 [facility] Studies Partial SECONDS 36.9 [facility] - Thromboplast [place] Time ELECTROLYT AGAP 11.7 meq/L 10.0 - 10/28 ES 20.0 [facility] ELECTROLYT eGFR 99 10/28 Result Comment: The eGFR is calculated using the CKD-EPI formula. In most young, healthy individuals the eGFR will be >90 mL/ min/1.73m2. The eGFR declines with age. An eGFR of 60-89 may be normal in ES mL/min/1.7 /2016 some populations, particularly the elderly, for whom the CKD-EPI formula has not been extensively validated. Use of the eGFR is not recommended in the following populations: [facility] 3m2 Individuals with unstable creatinine concentrations, including patients and those with serious co-morbid conditions. Patients with extremes in muscle mass or diet. The data above are obtained from the National Kidney Disease Education Program (NKDEP) which additionally recommends that when the eGFR is used in patients with extremes of body mass index for purposes of drug dosing, the eGFR should be multiplied by the estimated BMI. ELECTROLYT CO2 29 meq/L 24 - 32 10/28 [facility] ELECTROLYT Chloride Lvl 104 meq/L 95 - 109 10/28 [facility] ELECTROLYT Potassium 3.7 meq/L 3.5 - 5.1 10/28 [facility] Lvl [facility] ELECTROLYT Sodium Lvl 141 meq/L 135 - 145 10/28 [facility] ELECTROLYT Creatinine 0.40 mg/dL 0.50 - 10/28 [facility] Lvl 1.40 [facility] ELECTROLYT Calcium Lvl 8.1 mg/dL 8.5 - 10.5 10/28 [facility] ELECTROLYT BUN 8 mg/dL 7 - 22 10/28 [facility] ELECTROLYT Glucose Lvl 94 mg/dL 70 - 99 10/28 [facility] HEMATOLOGY RDW 16.6 % 11.5 - 10/28 14. [facility] HEMATOLOGY MPV 7.2 fL 7.4 - 10.4 10/28 [facility] HEMATOLOGY Platelet 299 K/CMM 133 - 450 10/28 [facility] HEMATOLOGY MCH 29.8 pg 27.0 - 10/28 31.0 [facility] HEMATOLOGY MCHC 32.9 g/dL 32.0 - 10/28 36.0 [facility] HEMATOLOGY MCV 90.5 fL 80.0 - 10/28 98.0 [facility] HEMATOLOGY RBC 3.41 M/CMM 4.20 - 10/28 MH 5.40 [facility] HEMATOLOGY WBC 8.1 K/CMM 3.7 - 10.4 10/28 [facility] HEMATOLOGY Hct 30.9 % 36.0 - 10/28 48.0 [facility] HEMATOLOGY Hgb 10.2 g/dL 12.0 - 10/28 16. [facility] HEMATOLOGY Basophils 1.1 % 0.0 - 1.0 10/28 [facility] Segs-Bands # 5.4 K/CMM 1.5 - 8.1 10/28 [facility] Basophils # 0.1 K/CMM 0.0 - 0.2 10/28 /2015 [facility] HEMATOLOGY Lymphocytes 1.2 K/CMM 1.0 - 5.5 10/28 MH # /2016 [facility] HEMATOLOGY Monocytes # 0.8 K/CMM 0.0 - 0.8 10/28 /2015 [facility] HEMATOLOGY Eosinophils 0.6 K/CMM 0.0 - 0.5 10/28 MH # /2015 [facility] HEMATOLOGY Segs 66.7 % 45.0 - 10/28 MH 75.0 /2016 [facility] HEMATOLOGY Lymphocytes 15.1 % 20.0 - 10/28 MH 40.0 /2015 [facility] HEMATOLOGY Monocytes 9.7 % 2.0 - 12.0 10/28 /2015 [facility] HEMATOLOGY Eosinophils 7.4 % 0.0 - 4.0 10/28 /2015 [facility] HEMATOLOGY Hct 30.2 % 36.0 - 10/28 48.0 /2015 [facility] HEMATOLOGY Hgb 10.1 g/dL 12.0 - 10/28 MH 16.0 /2015 [facility] HEMATOLOGY Hgb 9.4 g/dL 12.0 - 10/27 16.0 /2015 [facility] HEMATOLOGY Hct 27.9 % 36.0 - 10/27 48.0 /2015 [facility] HEMATOLOGY PT 14.3 s 12.0 - 10/27 MH 14.7 /2015 [facility] HEMATOLOGY PTT 34.3 s 22.9 - 10/27 MH 35.8 /2016 [facility] HEMATOLOGY INR 1.08 0.85 - 10/27 MH 1.17 /2015 [facility] HEMATOLOGY Eosinophils 4.9 % 0.0 - 4.0 10/27 /2015 [facility] HEMATOLOGY Monocytes 8.3 % 2.0 - 12.0 10/27 /2015 [facility] HEMATOLOGY Basophils # 0.1 K/CMM 0.0 - 0.2 10/27 /2015 [facility] HEMATOLOGY Lymphocytes 0.9 K/CMM 1.0 - 5.5 10/27 MH # /2015 [facility] HEMATOLOGY Monocytes # 0.8 K/CMM 0.0 - 0.8 10/27 /2015 [facility] HEMATOLOGY Basophils 0.7 % 0.0 - 1.0 10/27 /2015 [facility] HEMATOLOGY Segs-Bands # 7.0 K/CMM 1.5 - 8.1 10/27 /2015 [facility] HEMATOLOGY Lymphocytes 9.9 % 20.0 - 10/27 MH 40.0 /2015 [facility] HEMATOLOGY Segs 76.2 % 45.0 - 02 MH 75.0 /2015 [facility] HEMATOLOGY Eosinophils 0.5 K/CMM 0.0 - 0.5 10/27 MH # /2016 [facility] HEMATOLOGY WBC 9.2 K/CMM 3.7 - 10.4 10/27 [facility] HEMATOLOGY MPV 7.5 fL 7.4 - 10.4 10/27 [facility] HEMATOLOGY MCV 90.5 fL 80.0 - 10/27 98.0 /2015 [facility] HEMATOLOGY MCH 30.0 pg 27.0 - 10/27 31.0 /2015 [facility] HEMATOLOGY MCHC 33.1 g/dL 32.0 - 10/27 36.0 /2015 [facility] HEMATOLOGY RBC 2.88 M/CMM 4.20 - 10/27 5.40 /2015 [facility] HEMATOLOGY Platelet 246 K/CMM 133 - 450 10/27 [facility] HEMATOLOGY RDW 16.9 % 11.5 - 10/27 14.5 [facility] URINE AND UA null 0.1 - 1.0 10/26 [facility] Urobilinogen [facility] URINE AND Micro? Performed 10/26 STOOL [facility] *NA* (10/26/15 5:46 PM) URINE AND UA RBC null 0 - 2 10/26 [facility]OOL [facility] URINE AND UA Bacteria Occasional None Seen 10/26 [facility] /HPF /HPF /2015 [facility] URINE AND UA Bili Negative Negative 10/26 [facility]OOL [facility] *NA* (10/26/15 5:46 PM) URINE AND UA Protein Negative Negative 10/26 [facility] mg/dL mg/dL /2015 [facility] URINE AND UA Glucose Negative Negative 10/26 [facility] mg/dL mg/dL [facility] URINE AND UA Ketones Negative Negative 10/26 [facility] mg/dL mg/dL /2015 [facility] URINE AND UA WBC 1 /HPF 0 - 5 10/26 [facility] URINE AND UA Sq Epi Occasional Few /LPF 10/26 [facility] /LPF /2015 [facility] URINE AND UA Leuk Est Trace Negative 10/26 [facility]OOL [facility] *ABN* (10/26/15 5:46 PM) URINE AND UA Nitrite Negative Negative 10/26 [facility]OOL [facility] (10/26/15 5:46 PM) URINE AND UA Blood Negative Negative 10/26 [facility]OOL [facility] (10/26/15 5:46 PM) URINE AND UA Turbidity Clear Clear 10/26 STOOL /2016 [facility] (10/26/15 5:46 PM) URINE AND UA Spec Grav 1.006 <=1.030 10/26 [facility]OL [facility] URINE AND UA pH 6.0 5.0 - 8.0 10/26 STOOL [facility] URINE AND UA Color Light Yellow Yellow 10/26 STOOL [facility] *NA* (10/26/15 5:46 PM) BLOOD BANK ABO/Rh O POS 10/26 RESULTS /2015 [facility] BLOOD BANK Antibody Negative 10/26 RESULTS Scrn [facility] (10/26/15 4:09 AM) CHEM PANEL eGFR 99 10/26 Result Comment: The eGFR is calculated using the CKD-EPI formula. In most young, healthy individuals the eGFR will be >90 mL/ min/1.73m2. The eGFR declines with age. An eGFR of 60-89 may be normal in mL/min/1. some populations, particularly the elderly, for whom the CKD-EPI formula has not been extensively validated. Use of the eGFR is not recommended in the following populations: [facility] 3m2 Individuals with unstable creatinine concentrations, including patients and those with serious co-morbid conditions. Patients with extremes in muscle mass or diet. The data above are obtained from the National Kidney Disease Education Program (NKDEP) which additionally recommends that when the eGFR is used in patients with extremes of body mass index for purposes of drug dosing, the eGFR should be multiplied by the estimated BMI. CHEM PANEL Calcium Lvl 7.4 mg/dL 8.5 - 10.5 10/26 [facility] CHEM PANEL CO2 30 meq/L 24 - 32 10/26 [facility] CHEM PANEL Chloride Lvl 103 meq/L 95 - 109 10/26 [facility] CHEM PANEL Sodium Lvl 141 meq/L 135 - 145 10/26 [facility] CHEM PANEL Potassium 3.6 meq/L 3.5 - 5.1 10/26 Lvl [facility] CHEM PANEL BUN 13 mg/dL 7 - 22 10/26 [facility] CHEM PANEL Creatinine 0.40 mg/dL 0.50 - 10/26 Lvl 1.40 [facility] CHEM PANEL Glucose Lvl 124 mg/dL 70 - 99 10/26 [facility] CHEM PANEL AGAP 11.6 meq/L 10.0 - 10/26 MH 20.0 [facility] CHEM PANEL Phosphorus 2.4 mg/dL 2.5 - 4.5 02/ /2015 [facility] CHEM PANEL Magnesium 1.9 mg/dL 1.8 - 2.4 / Lvl /2015 [facility] HEMATOLOGY Basophils 0.4 % 0.0 - 1.0 10/26 /2015 [facility] HEMATOLOGY Segs-Bands # 9.0 K/CMM 1.5 - 8.1 10/26 [facility] HEMATOLOGY Monocytes 7.1 % 2.0 - 12.0 10/26 [facility] HEMATOLOGY Lymphocytes 9.6 % 20.0 - 02 MH 40.0 /2015 [facility] HEMATOLOGY Lymphocytes 1.1 K/CMM 1.0 - 5.5 10/26 MH # /2015 [facility] HEMATOLOGY Eosinophils 3.4 % 0.0 - 4.0 10/26 [facility] HEMATOLOGY Eosinophils 0.4 K/CMM 0.0 - 0.5 10/26 MH # /2015 [facility] HEMATOLOGY Basophils # 0.0 K/CMM 0.0 - 0.2 10/26 [facility] HEMATOLOGY Monocytes # 0.8 K/CMM 0.0 - 0.8 10/26 [facility] HEMATOLOGY Segs 79.5 % 45.0 - 02 MH 75.0 /2016 [facility] HEMATOLOGY MCH 29.9 pg 27.0 - 02 31.0 /2015 [facility] HEMATOLOGY RBC 2.93 M/CMM 4.20 - 10/26 MH 5.40 /2015 [facility] HEMATOLOGY MPV 7.4 fL 7.4 - 10.4 10/26 /2015 [facility] HEMATOLOGY RDW 17.7 % 11.5 - 10/26 14.5 /2015 [facility] HEMATOLOGY MCHC 32.8 g/dL 32.0 - 02 MH 36.0 /2016 [facility] HEMATOLOGY Platelet 182 K/CMM 133 - 450 10/26 [facility] HEMATOLOGY MCV 91.2 fL 80.0 - 10/26 98.0 /2016 [facility] HEMATOLOGY WBC 11.3 K/CMM 3.7 - 10.4 10/26 [facility] PARATHYROI Ca Ion WB 1.08 1.05 - 10/26 MH D PROFILE mMol/L . [facility] PARATHYROI Ca Norm WB 1.09 1.05 - 10/26 MH D PROFILE mMol/L . [facility] Chest Chest 1view PROCEDURE: Chest 1view 10/26 - 1view DX DX /2015 - [facility] CLINICAL INFORMATION Abnormal chest sounds Read by: Shahbaz Jacobsen MD Dictated Date/time: 10/26/15 07:50 COMPARISON: 10/2015 multiple x-rays. Electronically Signed by: Shahbaz Jacobsen MD 10/26/15 07:53 FINAL REPORT Right PICC line tip in the superior vena cava/right atrial junction. Prominent aortic root which may be seen with aneurysm. Left humeral replacement. Chronic left upper lateral hemithorax rib fractures. Severe right glenohumeral joint osteoarthritic change. Cardiomegaly, minimal congestive change. No pneumothorax. SL: 14 BLOOD BANK RBC product Product available 10/25 RESULTS /2015 [facility] (10/25/15 4:16 PM) HEMATOLOGY Polychrom Moderate None Seen 10/25 [facility] *ABN* (10/25/15 10:21 AM) HEMATOLOGY Plt Morph Normal 10/25 [facility] (10/25/15 10:21 AM) HEMATOLOGY Baso Moderate None Seen 10/25 [facility] *ABN* (10/25/15 10:21 AM) HEMATOLOGY PTT 33.0 s 22.9 - 10/25 MH 35.8 /2015 [facility] HEMATOLOGY INR 1.18 0.85 - 10/25 MH 1.17 /2015 [facility] HEMATOLOGY PT 15.3 s 12.0 - 10/25 14.7 [facility] BLOOD BANK RBC product Product available 10/25 RESULTS /2015 [facility] (10/25/15 2:39 AM) CHEM PANEL Magnesium 1.7 mg/dL 1.8 - 2.4 10/25 Lvl [facility] CHEM PANEL eGFR 99 10/25 Result Comment: The eGFR is calculated using the CKD-EPI formula. In most young, healthy individuals the eGFR will be >90 mL/ min/1.73m2. The eGFR declines with age. An eGFR of 60-89 may be normal in mL/min/1.7 /2015 some populations, particularly the elderly, for whom the CKD-EPI formula has not been extensively validated. Use of the eGFR is not recommended in the following populations: [facility] 3m2 Individuals with unstable creatinine concentrations, including patients and those with serious co-morbid conditions. Patients with extremes in muscle mass or diet. The data above are obtained from the National Kidney Disease Education Program (NKDEP) which additionally recommends that when the eGFR is used in patients with extremes of body mass index for purposes of drug dosing, the eGFR should be multiplied by the estimated BMI. CHEM PANEL Calcium Lvl 7.4 mg/dL 8.5 - 10.5 10/25 [facility] CHEM PANEL AGAP 12.4 meq/L 10.0 - 10/25 20.0 [facility] CHEM PANEL Glucose Lvl 137 mg/dL 70 - 99 10/25 [facility] CHEM PANEL BUN 16 mg/dL 7 - 22 10/25 [facility] CHEM PANEL Creatinine 0.40 mg/dL 0.50 - 10/25 Lvl 1.40 [facility] CHEM PANEL Sodium Lvl 141 meq/L 135 - 145 10/25 [facility] CHEM PANEL Potassium 3.4 meq/L 3.5 - 5.1 10/25 [facility] CHEM PANEL Chloride Lvl 105 meq/L 95 - 109 10/25 [facility] CHEM PANEL CO2 27 meq/L 24 - 32 10/25 [facility] CHEM PANEL Phosphorus 3.1 mg/dL 2.5 - 4.5 10/25 [facility] HEMATOLOGY Baso Moderate None Seen 10/25 [facility] *ABN* (10/25/15 1:39 AM) HEMATOLOGY Polychrom Moderate None Seen 10/25 [facility] *ABN* (10/25/15 1:39 AM) HEMATOLOGY Plt Morph Normal 10/25 [facility] (10/25/15 1:39 AM) PARATHYROI Ca Norm WB 1.08 1.05 - 10/25 D PROFILE mMol/L . [facility] PARATHYROI Ca Ion WB 1.05 1.05 - 10/25 D PROFILE mMol/L . [facility] CHEM PANEL Lactic Acid 1.0 mMol/L 0.5 - 2.2 10/24 [facility] CHEM PANEL Phosphorus 3.7 mg/dL 2.5 - 4.5 10/24 [facility] CHEM PANEL Magnesium 1.7 mg/dL 1.8 - 2.4 10/24 [facility] HEMATOLOGY INR 1.18 0.85 - 10/24 1.17 [facility] HEMATOLOGY PT 15.3 s 12.0 - 10/24 14. [facility] HEMATOLOGY PTT 27.8 s 22.9 - 10/24 MH 35.8 /2015 [facility] PARATHYROI Ca Norm WB 1.08 1.05 - 10/24 MH D PROFILE mMol/L 10.08 [facility] PARATHYROI Ca Ion WB 1.08 1.05 - 10/24 D PROFILE mMol/L . [facility] Chest Chest 1view Portable one view AP chest, Oct 24, 2015 02:13:00 AM - 1view DX DX - [facility] CLINICAL HISTORY: Abnormal chest sounds ; See Clinic Indication Read by: Rizwana Howard MD Dictated Date/time: 10/24/15 07:46 Electronically Signed by: Rizwana Howard MD 10/24/15 07:46 FINAL REPORT TECHNIQUE: Routine AP view of the chest was obtained. COMPARISON: Chest radiographs 2 days ago FINDINGS: Lungs are clear. No pleural effusion or radiographically detectable pneumothorax is present. Cardiomediastinal silhouette is unchanged. Bones are unchanged. Lifelines are stable. IMPRESSION: No acute abnormality of the chest. Cardiomegaly with tortuous and ectatic thoracic aorta SL: 14 Angiogram Angiogram Distal arteriogram with subselective embolizations, 10/23 at 1532. 10/23 [facility] visceral visceral /2015 - [facility] artery artery initial VR initial VR CLINICAL HISTORY: 80-year-old female; upper gas intestinal bleeding, hematemesis, from bleeding duodenal source as per outside facility EGD, with prior clipping in the duodenal bulb region; persistent melena and requirement of transfusions Read by: Rizwana Howard MD Dictated Date/time: 10/25/15 09:19 Electronically Signed by: Rizwana Howard MD 10/25/15 13:48 FINAL REPORT COMPARISON: Abdominopelvic CTA day before PROCEDURE: Informed consent was obtained from the patient, after which the patient was brought into the examination suite and placed in supine position on the fluoroscopy table. The right groin was prepped and felisha ped utilizing all elements of maximal barrier sterile technique. Right common femoral arterial pulse was palpated and radiographically marked, after which lidocaine 1% was injected into a focus of overlying skin. A 19-gauge needle was used to access the right common femoral artery, after which a NextPrinciplesson wire was advanced through the needle and into the abdominal aorta. Needle was exchanged for a 5 Swiss sheath. 5 Swiss Diaz B catheter was advanced over the guidewire coaxially through the sheath. SMA was selected. DSA SMA arteriogram demonstrated normal perfusional territory, with no focal active arterial extravasation. Celiac axis was selected. DSA celiac arteriogram demonstrated normal perfusional territory, with no focal active arterial extravasation. High flow renegade microcatheter and guidewire were advanced the Diaz B catheter. Right gastric artery was selected. DSA right gastric arteriogram demonstrated normal perfusional territory with no focal active arterial extravasation. Retrograde flow into the left gastric arterial per fusional territory and left gastric artery was also demonstrated. Due to the persistent upper gastrointestinal hemorrhage clinically, empiric embolization was performed other right gastric artery (fourth order branch). Gelfoam slurry was concocted injected into the right gastric artery. Postembolization DSA arteriogram of the right gastric artery demonstrated no flow in the right gastric artery. GDA was selected. DSA GDA arteriograms in frontal and oblique projections demonstrated normal perfusional territory with no focal active arterial extravasation. A prominent proximal right laterally cour sing GDA branch leading to the endoscopically placed surgical clip in the proximal duodenum was identified. This prominent proximal GDA branch (fourth order branch ) was selected. DSA arteriograms in frontal and oblique projections demonstrated normal arterial territory with no focal active arterial extravasa tion, with special attention placed in the region of the surgical clip. Enteric embolization was performed of this proximal GDA branch (fourth order branch) with Gelfoam slurry. Postembolization DSA arteriogram of this fourth order branch demonstrated no flow in this artery and its respective perfusional territory. Proximal GDA was selected. Empiric embolization was performed of the GDA with Gelfoam slurry (third order branch). Postembolization DSA arteriogram in the common hepatic artery demonstrated no flow distally in the GDA and its respective perfusional territory and no flow in the right gastric artery. The patient tolerated the subselective empiric embolizations well without any abdominal cramping her discomfort. The catheter and sheath were removed and manual point pressure for 15 minutes was maintained to achieve hemostasis. The patient tolerated the procedure well and was taken back to the ICU in stable fashion. COMPLICATIONS: None. ANESTHESIA: Lidocaine 1%, subcutaneous; moderate conscious sedation utilizing intravenous 3 mg of Versed and 200 micrograms fentanyl, for a total [id number] sedation time of 70. MANUFACTURING WORKER: Dr. Howard. FLUOROSCOPY TIME: 15.6 minutes IMPRESSION: 1. Negative for focal active arterial extravasation. 2. Successful empiric Gelfoam embolizations of the right gastric artery, proximal GDA branch leading to the endoscopically placed surgical clip in the duodenum, and GDA. SL: 14 BLOOD BANK RBC product Product available 10/23 RESULTS [facility] (10/22/15 10:44 PM) BLOOD BANK Antibody Negative 10/23 RESULTS Scrn [facility] (10/22/15 9:04 PM) BLOOD BANK ABO/Rh O POS 10/23 RESULTS [facility] URINE AND UA null 0.1 - 1.0 10/22 STOOL Urobilinogen /2015 [facility] URINE AND UA WBC 1 /HPF 0 - 5 10/22 STOOL [facility] URINE AND UA Leuk Est Negative Negative 10/22 STOOL [facility] (10/22/15 2:58 PM) URINE AND UA Blood Negative Negative 10/22 STOOL [facility] (10/22/15 2:58 PM) URINE AND UA Bili Negative Negative 10/22 STOOL [facility] *NA* (10/22/15 2:58 PM) URINE AND UA Sq Epi None Seen 10/22 STOOL [facility] URINE AND UA Color Light Yellow Yellow 10/22 STOOL [facility] *NA* (10/22/15 2:58 PM) URINE AND UA Spec Grav 1.009 <=1.030 10/22 STOOL [facility] URINE AND UA Turbidity Clear Clear 10/22 STOOL [facility] (10/22/15 2:58 PM) URINE AND UA pH 7.0 5.0 - 8.0 10/22 STOOL [facility] URINE AND UA Glucose 50 mg/dL Negative 10/22 STOOL mg/dL /2015 [facility] URINE AND UA Protein Negative Negative 10/22 STOOL mg/dL mg/dL /2015 [facility] URINE AND UA Ketones Negative Negative 10/22 STOOL mg/dL mg/dL [facility] URINE AND UA Nitrite Negative Negative 10/22 STOOL [facility] (10/22/15 2:58 PM) BACTERIAL MRSA by PCR Negative 10/22 - SEROLOGY [facility] (10/22/15 1:20 PM) CHEM PANEL Ammonia 32.0 <=45.0 10/22 umol/L uMol/L /2015 [facility] CHEM PANEL Lipase Lvl 160 unit/L 73 - 393 / MH /2015 [facility] CHEM PANEL Lactic Acid 0.9 mMol/L 0.5 - 2.2 / Lvl /2015 [facility] CHEM PANEL Globulin 2.2 g/dL 2.0 - 4.0 10/22 /2015 [facility] CHEM PANEL A/G Ratio 1.0 0.7 - 1.6 / MH /2015 [facility] CHEM PANEL ALANINE 16 unit/L 0 - 65 10/22 AMINOTRANSFE /2015 [facility] RASE CHEM PANEL Bili Total 0.4 mg/dL 0.2 - 1.3 10/22 [facility] CHEM PANEL Alk Phos 42 unit/L 39 - 136 / MH [facility] CHEM PANEL Bili Direct 0.1 mg/dL 0.0 - 0.3 10/22 [facility] CHEM PANEL Total 4.3 g/dL 6.4 - 8.4 10/22 Protein [facility] CHEM PANEL Albumin Lvl 2.1 g/dL 3.5 - 5.0 10/22 MH /2015 [facility] CHEM PANEL ASPARTATE 19 unit/L 0 - 37 10/22 TRANSAMINASE /2015 [facility] CHEM PANEL Bili 0.3 mg/dL 0.0 - 1.0 10/22 Indirect /2016 [facility] ENDOCRINOL Cortisol 3.4 ug/dl 10/22 OGY /2015 [facility] SPECIAL Hgb A1C <3.5 % <=5.6 % 10/22 Result CHEMISTRY /2016 Comment: [facility] Hgb A1c result of <3.5_ should be interpreted with caution due to possibility of pre analytical error Abdomen/Pe Abdomen/Pelv CTA Abdomen and Pelvis, 10/22/2015 at 1626. - [facility] CTA is CTA /2015 - [facility] CLINICAL HISTORY: 80-year-old female; upper gastrointestinal hemorrhage; hematemesis; status post EGD with clipping of a duodenal bleeding site at an outside facility. Read by: Rizwana Howard MD Dictated Date/time: 10/22/15 17:17 Electronically Signed by: Rizwana Howard MD 10/22/15 17:28 FINAL REPORT TECHNIQUE: 0.625 mm thick axial images of the abdomen and pelvis were obtained with IV contrast via arteriographic protocol. Subsequent delayed axial imaging at 4 minutes was performed. Coronal and sagi ttal reformations were created. Three-dimensional reconstructions were created at an independent workstation. COMPARISON: None. FINDINGS: A surgical clip is needle bulb, but with no focus of active arterial extravasation the surrounding vicinity or elsewhere throughout the gastrointestinal tract. No pseudoaneurysm is present. Mild to mode rate scattered atherosclerotic calcified plaque summation is visualized in the aortoiliac system. Celiac axis, SMA, and bilateral single main renal arteries are patent proximally and to the distal perfu sional territories, with small calcified plaque present at their respective origins. No aortic aneurysm, focal ectasia, or dissection is present. No hemodynamically significant stenosis is present. Heart size is normal. Visualized lung bases are clear. Tiny left pleural effusion is present. Liver, spleen, pancreas, adrenal glands, the kidneys are normal. Ureters are normal. Bladder is distended. Gastrointestinal tract is grossly normal. Appendix is not identified. No mesenteric or retroperitoneal lymphadenopathy is present. Bones demonstrate mild upper lumbar spine the scoliosis with L1/2 degenerative disc disease and L4/5 and L5/S1 degenerative disease. Mild L4 over L5 degenerative grade 1 anterolisthesis is present, with associated bilateral posterior facet joint arthropathy. IMPRESSION: 1. Negative for active gastrointestinal or other arterial hemorrhage. Upon reoccurrence of acute hematemesis, repeat EGD or CTA abdomen may be considered. This important finding was discussed with the ICU attending physician today at 16:45. 2. Tiny left pleural effusion. SL: 14 Chest Chest 1view Chest one view: 10/22 - 1view DX DX /[address] [place] [address] Exam reason: Shortness of Breath Read by: Jorge Luis Ambrose MD Dictated Date/time: 10/22/15 13:28 Electronically Signed by: Jorge Luis Ambrose MD 10/22/15 13:31 FINAL REPORT A few scattered interstitial opacities are noted bilaterally, nonspecific, likely chronic. The cardiac silhouette is upper limits of normal mildly enlarged. 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 There is no consolidation or pleural fluid collection noted. Marginal spurring is noted at the thoracic spine. Right gleno humeral joint prosthesis. Severe degenerative change right glenohumeral joint. Right-sided PICC catheter is noted with the catheter tip at the SVC. Nonspecific elevation of the right hemidiaphragm relat cely to the left. The central hilar pulmonary arterial vasculature is prominent bilaterally suggestive of pulmonary arterial hypertension. Healed rib deformity at the upper left hemithorax. SL:14 Vital Signs Vital Sign Value Date Comments Source BMI Calculated 16.98 12/30/2018 [facility] Weight 47.727 12/30/2018 [facility] Height 167.64 cm 12/30/2018 [facility] Systolic (mm Hg) 109 12/30/2018 [facility] Diastolic (mm Hg) 61 12/30/2018 [facility] Respitory Rate 16 12/30/2018 [facility] Heart Rate 69 12/30/2018 [facility] Temperature Oral (F) 99.2 F 02/06/2018 [facility] Heart Rate 98 02/06/2018 [facility] Respitory Rate 18 02/06/2018 [facility] Systolic (mm Hg) 163 02/06/2018 [facility] Diastolic (mm Hg) 90 02/06/2018 [facility] Heart Rate 97 02/06/2018 [facility] Respitory Rate 17 02/06/2018 [facility] Systolic (mm Hg) 140 02/06/2018 [facility] Diastolic (mm Hg) 73 02/06/2018 [facility] Temperature Oral (F) 98.5 F 02/06/2018 [facility] Respitory Rate 18 02/06/2018 [facility] Heart Rate 85 02/06/2018 [facility] Temperature Oral (F) 97.8 F 02/06/2018 [facility] Systolic (mm Hg) 132 02/06/2018 [facility] Diastolic (mm Hg) 80 02/06/2018 [facility] Height 167.64 cm 02/05/2018 [facility] Weight 47.273 02/05/2018 [facility] BMI Calculated 16.82 02/05/2018 [facility] BMI Calculated 18.44 02/04/2018 [facility] Weight 51.818 02/04/2018 [facility] Height 167.64 cm 02/04/2018 [facility] Temperature Oral (F) 98.6 F 08/24/[address] [facility] Heart Rate 75 08/24/[address] [facility] Respitory Rate 20 08/24/[address] [facility] Systolic (mm Hg) 177 08/24/[address] [facility] Diastolic (mm Hg) 86 08/24/2017 [facility] Height 66 08/23/2017 [facility] Weight 96.43 08/23/[address] [facility] Respitory Rate 18 10/28/2015 [facility] Systolic (mm Hg) 124 10/28/2015 [facility] Diastolic (mm Hg) 68 10/28/2015 [facility] Temperature Oral (F) 98.1 F 10/28/2015 [facility] Heart Rate 74 10/28/2015 [facility] Respitory Rate 20 10/28/2015 [facility] Systolic (mm Hg) 121 10/28/2015 [facility] Diastolic (mm Hg) 72 10/28/2015 [facility] Heart Rate 79 10/28/2015 [facility] Temperature Oral (F) 97.9 F 10/28/2015 [facility] Respitory Rate 18 10/28/2015 [facility] Heart Rate 76 10/28/2015 [facility] Temperature Oral (F) 97.6 F 10/28/2015 [facility] Systolic (mm Hg) 110 10/28/2015 [facility] Diastolic (mm Hg) 67 10/28/2015 [facility] Height 152.4 cm 10/27/2015 [facility] Height 165.1 cm 10/22/2015 [facility] Weight 47.001 10/22/2015 [facility] BMI Calculated 17.24 10/22/2015 [facility] Encounters Location Location Encounter Encounter Reason Attending ADM DC Status Source Details Type Number For Provider Date Date Visit [facility] [id number] Matthieu 10/22 10/28 Raymond Kohler /2015 [facility] [id number] 08/23 08/[address] [facility] [id number] Cerena 02/04 02/06 [facility] [place] /2017 [facility] Out[facility] [id number] DEN 10/19 [facility] Raymond Outpatient [id number] Den 12/30 [facility] Outpatient [id number] Den 12/30 12/31 [facility] /2018 [facility] [id number] Den 02/09 [facility] [place] Outpatient [id number] BLAIR 03/31 Active [facility] [place] Procedures Procedure Code Date Perfomer Comments Source Chest Single View [id number] 08/24/2017 [facility] Chest Single View [id number] 08/23/2017 [facility] Influenza Type B 08/23/2017 [facility] Influenza Type A 08/23/2017 [facility] [place] Count 08/23/2017 [facility] Anaerobic Blood 08/23/2017 [facility] [place] Aerobic Blood 08/23/2017 [facility] [place] 08/23/2017 [facility] Appendectomy [id number] [facility] Arthroscopy of [id number] [facility] knee Elbow maneuver [id number] [facility] Hysterectomy [id number] [facility] Repair of shoulder [id number] [facility] Appendectomy [id number] [facility] Arthroscopy of [id number] [facility] Elbow maneuver [id number] [facility] Hysterectomy [id number] [facility] Repair of shoulder [id number] [facility]
--- NOTE | 2019-01-17 16:44 | ER ---
Nurse's Notes [facility] Name: Rosina Odonnell Age: 83 yrs Sex: Female : 1935 Arrival Date: 01/17/2019 Time: 16:30 Bed Waiting Private MD: Diagnosis: Presentation: 01/17 16:38 Presenting complaint: Patient states: Sent by pain management doctor for high blood ss pressure 200/??? \T\ 160/??? Pt c/o headache that started this morning, but reports she has medication for that because it's a chronic issue she deals with because of her MS. Transition of care: patient was not received from another setting of care. Onset of symptoms was January 17, 2019. Risk Assessment: Do you want to hurt yourself or someone else? Patient reports no desire to harm self or others. Initial Sepsis Screen: Does the patient meet any 2 criteria? No. Patient's initial sepsis screen is negative. Does the patient have a suspected source of infection? No. Patient's initial sepsis screen is negative. Care prior to arrival: None. 16:38 Method Of Arrival: Wheelchair ss 16:38 Acuity: [place] 3 ss Assessment: 16:42 Reassessment: Patient is content with her blood pressure obtained in triage and insist ss that they go ahead and go home. Pt verbalizes understanding importance of leaving prior to being evaluated by physician and to return if symptoms persist or blood pressure is of concern again. General: Appears in no apparent distress. comfortable, Behavior is cooperative. Respiratory: Respiratory effort is even, unlabored. Derm: Skin is pink, warm \T\ dry. Vital Signs: 16:38 BP 137 / 83; Pulse 73; Resp 17; Temp 98.1(TE); Pulse Ox 99% on R/A; ss ED Course: 16:30 Patient arrived in ED. mr 16:38 Arm band placed on right wrist. ss 16:41 Triage completed. ss Administered Medications: No medications were administered Outcome: 16:43 Eloped from waiting room, before seeing physician ss 16:43 Condition: good 16:43 Patient left the ED. ss Signatures: Laura Simpson Shelby, RN RN ss
[2019-01-17 17:59] VITALS: BP 137/83; TEMP 98.1; O2SAT 99
== END 2019-01-17 16:43 | disposition left against medical advice (07) ==
LOC: ER 16:22
DX: R03.0 Elevated blood-pressure reading, without diagnosis of hypertension (principal); Z53.21 Procedure and treatment not carried out due to patient leaving prior to being seen by health care provider
CPT/HCPCS: 99281

== ENCOUNTER 2019-03-27 17:39 | Emergency (ER) | payer OTHER ==
--- OUTSIDE RECORDS SUMMARY | 2019-03-27 17:46 | XMS REPORT | Continuity of Care Document ---
:1935 Author Organization [employer] [facility] Care Team Providers Name Role Phone [facility] Unavailable Unavailable Problems Problem Status Onset Classification Date Comments Source Date Reported OPEN RIGHT HUMERUS Active [address] Asthma exacerbation Active Finding 08/24/[address] [facility] Weakness Active Finding 08/24/[address] [facility] [facility] Abnormal renal Active Finding 08/24/[address] [facility] function 017 [facility] Abnormal kidney Active Finding 08/24/[address] [facility] function 017 [facility] Exacerbation of Active Finding 08/24/[address] [facility] 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 Displaced fracture Active Finding 08/24/[address] [facility] of right patella 017 [facility] Right knee pain Active Finding 08/24/[address] [facility] [facility] GI BLEED, ANEMIA Active [place] [facility]16 Weakness Active Finding 08/24/[address] [facility] generalized 016 [facility] Dehydration Active Finding 08/24/[address] [facility] 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 left 015 [facility] Anemia Resolved Problem 03/11/2019 [facility] Anxiety Resolved Problem 03/11/2019 [facility] Asthma Resolved Problem 03/11/2019 [facility] Depression Resolved Problem 03/11/2019 [facility] HTN (Confirmed) Resolved Problem 03/11/2019 [facility] Hyperthyroidism Resolved Problem 03/11/2019 [facility] MS (Confirmed) Resolved Problem 03/11/2019 [facility] Seizure Resolved Problem 03/11/2019 [facility] Vertigo Active Problem 03/11/2019 [facility] Neuro Multiple sclerosis Active Problem 03/11/2019 [facility] Neuro Multiple sclerosis Inactive Finding 08/24/[address] [facility] [...] [facility] GASTROINTESTINAL Active [facility] HEMORRHAGE, UNSPECIFIED ANEMIA, UNSPECIFIED Active [facility] UNSP FRACTURE OF Active [facility] Medications Medication Details Route Status Patient Ordering Order Source Instructions Provider Date duloxetine 60 MG 60 mg=1 cap, Active 05/10/ [facility] Enteric Coated PO, BID, 0 2019 Neuro Capsule Refill(s) [Cymbalta] carvedilol 12.5 12.5 mg=1 tab, Active 01/21/ [facility] mg oral tablet PO, BID, # 180 2019 Neuro tab, 0 Refill(s) Amlodipine 5 MG 5 mg=1 tab, PO, Active 01/21/ [facility] Oral Tablet Daily, # 30 2019 Neuro [Norvasc] tab, 0 Refill(s) Levetiracetam 750 mg=1 tab, No Longer 09/16/ [facility] 750 MG Oral PO, BID, X 90 Active 2019 Neuro Tablet [Keppra] day, # 180 tab, 1 Refill(s), Pharmacy: [place] [address] Levetiracetam 750 mg=1 tab, Active [place] 750 MG Oral PO, BID, 0 2018 Medical Tablet [Keppra] Refill(s) [place] enoxaparin 40 40 mg=0.4 mL, Active [place] mg/0.4 mL SUB-Q, 2018 Medical subcutaneous [id number], X 21 [place] solution day, # 8 mL, 0 Refill(s), Pharmacy: [place] [address] Ergocalciferol 50,000 Active [facility] [address] UNT Oral IntlUnit=1 cap, 2018 Medical Capsule PO, Q7D, # 5 Center cap, 0 Refill(s), Pharmacy: [place] [address] Calcium 1 tab, CHEW, Active [facility] Carbonate 1250 BID, # 60 tab, 2018 Medical MG / 0 Refill(s), [place] Cholecalciferol Pharmacy: 400 UNT Chewable [facility] Tablet [place] [address] oxyCODONE 5 mg 10 mg, 2 tab, Inactive [facility] oral tablet Route: PO, Drug 2018 Medical form: TAB, Center ONCE, Start date: 02/06/18 10:42:00 CDT, Stop date: 02/06/18 10:42:00 CDTNotes: (Same as: Roxicodone) Oxycodone 10 mg, 2 tab, Inactive [facility] Hydrochloride 5 Route: PO, Drug 2018 Medical MG Oral Tablet form: TAB, Center ONCE, Dosing Weight 47.273, kg, Start date: 02/05/18 19:32:00 CDT, Stop date: 02/05/18 19:32:00 CDTNotes: (Same as: Roxicodone) Calcium 1 tab, Route: No Longer [facility] Carbonate 1250 CHEW, Drug Active 2018 Medical MG / Form: TAB, Center Cholecalciferol Dosing Weight 400 UNT Chewable 47.273, kg, Tablet BID, Start date: 02/05/18 9:00:00 CDT, Duration: 30 day, Stop date: 03/06/18 17:00:00 CDTNotes: (calcium carbonate-vit D 500mg-400unit TAB) Same as: Oyster-D, OsCal-D Ergocalciferol 50,000 No Longer [facility] [address] UNT Oral IntlUnit, 1 Active 2018 Medical Capsule cap, Route: PO, Center Drug form: CAP, Q7D, Dosing Weight 47.273, kg, Start date: 02/05/18 7:00:00 CDT, Duration: 30 day, Stop date: 03/05/18 9:00:00 CDTNotes: (Same as: Vitamin D) "Do Not Crush" Thyroxine 25 microgram, 1 No Longer [facility] tab, Route: PO, Active 2018 Medical Drug form: [facility] [place] [place], [place] Q630AM, Dosing Weight 47.001, kg, Start date: 02/05/18 6:30:00 CDT, Duration: 30 day, Stop date: 03/06/18 6:30:00 CDTNotes: Take 1 hour before or 2 hours after meal; Enteral feeds may interefere with the absorption of this medication. (Same as:Levothroid) Oxycodone 10 mg, 2 tab, Inactive [facility] Hydrochloride 5 Route: PO, Drug 2018 Medical MG Oral Tablet form: TAB, Center ONCE, Dosing Weight 47.273, kg, PRN Pain Score 7-10, Priority: NOW, Start date: 02/05/18 5:37:00 CDTNotes: (Same as: Roxicodone) Cefazolin 2 gm, 20 mL, Inactive [place] Route: IVP, 2018 Medical Drug form: [place] SOLN, Q8H, Dosing Weight 51.818, kg, Start date: 02/05/18 0:00:00 CDT, Duration: 3 doses or times, Stop date: 02/05/18 16:00:00 CDT, ABX Indication: Surgical ProphylaxisNote s: (Same as Ancef) sugammadex 200 mg, 2 mL, No Longer [facility] Route: IV, Drug Active 2017 Medical form: SOLN, Center ONCALL, Start date: 02/04/18 21:43:00 CDT, Duration: 1 doses or times, Stop date: 02/04/18 21:44:00 CDTNotes: (Same as: Bridion) Amitriptyline 25 mg, 1 tab, No Longer [facility] Route: PO, Drug Active 2017 Medical form: TAB, Center Bedtime, Dosing Weight 47.001, kg, Start date: 02/04/18 21:00:00 CDT, Duration: 30 day, Stop date: 03/05/18 21:00:00 CDTNotes: (Same as: Elavil) Singulair 10 mg, 1 tab, No Longer [facility] Route: PO, Drug Active 2017 Medical form: TAB, Center Bedtime, Dosing Weight 47.001, kg, Start date: 02/04/18 21:00:00 CDT, Duration: 30 day, Stop date: 03/05/18 21:00:00 CDTNotes: (Same as:Singulair) Ondansetron 4 mg, Route: Inactive 02/05[facility] IVP, ONCE, 2017 Medical Dosing Weight Center 51.818, kg, PRN Nausea & Vomiting, Start date: 02/04/18 19:10:00 CDT Hydralazine 10 mg, Route: Inactive 02/05[facility] IVP, Q20Min, 2017 Medical Dosing Weight Center 51.818, kg, PRN Elevated BP, Start date: 02/04/18 19:10:00 CDT, Duration: 2 doses or times, Stop date: Limited # of times Labetalol 10 mg, Route: Inactive [facility] IVP, Q5Min, 2017 Medical Dosing Weight Center 51.818, kg, PRN Elevated BP, Start date: 02/04/18 19:10:00 CDT, Duration: 5 doses or times, Stop date: Limited # of times Flumazenil 0.2 mg, Route: Inactive [facility] IVP, PRN, 2018 Medical Dosing Weight Center 51.818, kg, PRN Benzodiazepine Reversal, Initial dose, Start date: 02/04/18 19:10:00 CDT, Duration: 30 day, Stop date: 03/06/18 19:09:00 CDT Naloxone 0.4 mg, Route: Inactive 02/05[facility] IVP, Q2MIN, 2018 Medical Dosing Weight Center 51.818, kg, PRN Narcotic Reversal, Start date: 02/04/18 19:10:00 CDT, Duration: 8 doses or times, Stop date: Limited # of times Hydromorphone 0.5 mg, Route: Inactive 02/05[facility] IVP, Q5Min, 2018 Medical Dosing Weight Center 51.818, kg, PRN Pain Score 7-10, Start date: 02/04/18 19:10:00 CDT, Duration: 4 doses or times, Stop date: Limited # of times Oxycodone 5 mg, Route: Inactive 02/05[facility] PO, Drug form: 2018 Medical TAB, Q4H, Center Dosing Weight 51.818, kg, PRN Pain Score 4-6, Start date: 02/04/18 19:10:00 CDT, Duration: 30 day, Stop date: 03/06/18 19:09:00 CDT ondansetron Route: IV, Drug Inactive [facility] (ANES) form: INJ, 2018 Medical ONCE, Stop Center date: 02/04/18 18:58:00 CDT albuterol (ANES) Route: Inactive 02/04[facility] INHALATION, 2018 Medical Drug form: Center AERO/A, ONCE, Stop date: 02/04/18 18:16:00 CDT acetaminophen Route: IV, Drug Inactive 02/04[facility] (ANES) 10 mg form: INJ, 2018 Medical Start date: [place] 02/04/18 18:00:00 CDT, Stop date: 02/04/18 19:00:00 CDT hydromorphone Route: IV, Drug Inactive 02/04[facility] (ANES) form: INJ, 2018 Medical ONCE, Stop Center date: 02/04/18 17:51:00 CDT dexamethasone Route: IV, Drug Inactive [facility] (ANES) form: INJ, 2017 Medical ONCE, Stop Center date: 02/04/18 17:51:00 CDT rocuronium Route: IV, Drug Inactive [place] (ANES) form: INJ, 2017 Medical ONCE, Stop Center date: 02/04/18 17:20:00 CDT fentaNYL (ANES) Route: IV, Drug Inactive [facility] form: INJ, 2017 Medical ONCE, Stop Center date: 02/04/18 17:10:00 CDT propofol (ANES) Route: IV, Drug Inactive [facility] form: INJ, 2017 Medical ONCE, Stop Center date: 02/04/18 17:10:00 CDT lidocaine (ANES) Route: IV, Drug Inactive [facility] form: INJ, 2017 Medical ONCE, Stop Center date: 02/04/18 17:10:00 CDT ondansetron Route: IV, Drug Inactive [facility] (ANES) form: INJ, 2017 Medical ONCE, Stop Center date: 02/04/18 17:10:00 CDT ceFAZolin (ANES) Route: IV, Drug Inactive [facility] form: INJ, 2017 Medical ONCE, Stop Center date: 02/04/18 17:05:00 CDT phenylephrine Route: IV, Drug Inactive [facility] (ANES) form: INJ, 2017 Medical ONCE, Stop Center date: 02/04/18 17:05:00 CDT ePHEDrine (ANES) Route: IV, Drug Inactive [facility] form: INJ, 2017 Medical ONCE, Stop Center date: 02/04/18 17:05:00 CDT Lactated Ringers Route: IV, Inactive [facility] Injection IV Total Volume: 2017 Medical (ANES) 1000 mL 1,000, Start Center date: 02/04/18 15:35:00 CDT, Stop date: 02/04/18 16:35:00 CDT Lovenox 40 mg, 0.4 mL, No Longer [facility] Route: SUB-Q, Active 2017 Medical Drug form: INJ, Center [id number], Dosing Weight 51.818, kg, Start date: 02/04/18 14:00:00 CDT, Duration: 30 day, Stop date: 03/05/18 14:00:00 CDTNotes: (Same as: Lovenox) Ancef 2 gm, 20 mL, Inactive [facility] Route: IVPB, 2017 Medical Drug form: [place] KATIE [id number], Dosing Weight 51.818, kg, Start date: 02/04/18 11:00:00 CDT, Duration: 1 day, Stop date: 02/05/18 4:00:00 CDT, ABX Indication: Surgical ProphylaxisNote s: (Same as Ancef) Levetiracetam 750 mg, 1 tab, No Longer [facility] 750 MG Oral Route: PO, Drug Active 2018 Medical Tablet [Keppra] form: TAB, BID, [place] Dosing Weight 47.001, kg, Start date: 02/04/18 9:00:00 CDT, Duration: 30 day, Stop date: 03/05/18 17:00:00 CDTNotes: Same as Keppra Advair Diskus 1 puff, Route: Inactive [facility] 500 mcg-50 mcg INHALATION, 2018 Medical inhalation Drug Form: [place] powder AERO, Dosing Weight 47.001, kg, BID, Start date: 02/04/18 9:00:00 CDT, Duration: 30 day, Stop date: 03/05/18 17:00:00 CDT Cymbalta 30 mg, Route: Inactive [facility] PO, Drug form: 2018 Medical DRC, BID, [place] Dosing Weight 47.001, kg, Start date: 02/04/18 9:00:00 CDT, Duration: 30 day, Stop date: 03/05/18 17:00:00 CDT budesonide-formo 2 puff, Route: No Longer [facility] terol INHALER, Drug Active 2017 Medical Form: AERO/A, [place] RBID, Start date: 02/04/18 8:00:00 CDT, Duration: 30 day, Stop date: 03/05/18 20:00:00 CDTNotes: [id number] [facility],[address] Inhale 2 puff(s) by mouth 2 times a day Carlos Chiu Mfr_ Don't use after_ Tramadol 50 mg, 1 tab, No Longer [place] Route: PO, Drug Active 2017 Medical form: TAB, Center Q6Hnow, Dosing Weight 47.001, kg, Start date: 02/04/18 6:00:00 CDT, Duration: 30 day, Stop date: 03/06/18 0:00:00 CDTNotes: Not to exceed 400mg/day. (Same As: Ultram) Acetaminophen 1 tab, Route: No Longer [place] 325 MG / PO, Drug Form: Active 2018 Medical Hydrocodone TAB, Dosing Center Bitartrate 5 MG Weight 47.001, Oral Tablet kg, Q6H, PRN [[place] 5/325] Pain Score 4-6, Start date: 02/04/18 5:55:00 CDT, Duration: 30 day, Stop date: 03/06/18 5:54:00 CDTNotes: (Same as: [place] 325/5) Do not exceed 4gm/day of acetaminophen. Ondansetron 4 mg, 2 mL, No Longer [place] Route: IVP, Active 2017 Medical Drug form: INJ, Center Q6H, Dosing Weight 47.001, kg, PRN Nausea & Vomiting, Start date: 02/04/18 5:54:00 CDT, Duration: 30 day, Stop date: 03/06/18 5:53:00 CDTNotes: (Same as: Ed) MEDICATION WASTE Product Size: 4 mg Product Wasted: ___ mg Acetaminophen 2 tab, Route: No Longer [place] 325 MG / PO, Drug Form: Active 2018 Medical Hydrocodone TAB, Dosing Center Bitartrate 5 MG Weight 47.001, Oral Tablet kg, Q4H, PRN Pain Score 7-10, Start date: 02/04/18 5:54:00 CDT, Duration: 30 day, Stop date: 03/06/18 5:53:00 CDTNotes: (Same as: [place] 325/5) Do not exceed 4gm/day of acetaminophen. Acetaminophen 650 mg, 2 tab, No Longer [facility] Route: PO, Drug Active 2018 Medical form: TAB, Q8H, Center Dosing Weight 47.001, kg, PRN Pain 1-3/Temp > 100.4 F, Start date: 02/04/18 5:54:00 CDT, Duration: 30 day, Stop date: 03/06/18 5:53:00 CDTNotes: Do not exceed 4 gm/day. (Same as: Tylenol) Dilaudid 1 mg, Route: Inactive 02/04[facility] IVP, ONCE, 2018 Medical Dosing Weight Center 47.001, kg, Priority: STAT, Start date: 02/04/18 5:26:00 CDT, Stop date: 02/04/18 5:26:00 CDT Fentanyl 50 microgram, Inactive [facility] Route: IVP, 2018 Medical ONCE, Dosing Center Weight 47.001, kg, Priority: STAT, Start date: 02/04/18 5:21:00 CDT, Stop date: 02/04/18 5:21:00 CDT Fentanyl 50 microgram, Inactive [facility] Route: IVP, 2018 Medical ONCE, Dosing Center Weight 47.001, kg, Priority: STAT, Start date: 02/04/18 4:57:00 CDT, Stop date: 02/04/18 4:57:00 CDT Ancef 1 gm, Route: Inactive 02/04[facility] IVPB, Drug 2017 Medical form: PDR/INJ, Center ONCE, Dosing Weight 47.001, kg, Priority: STAT, Start date: 02/04/18 3:51:00 CDT, Stop date: 02/04/18 3:51:00 CDT, ABX Indication: Open Wound ProphylaxisNote s: (Same As: Ancef, Kefzol) MEDICATION WASTE Product Size: 1000 mg Product Wasted: ___ mg Fentanyl 50 microgram, 1 Inactive [facility] mL, Route: IVP, 2017 Medical Drug form: INJ, Center ONCE, Dosing Weight 47.001, kg, Priority: STAT, Start date: 02/04/18 3:49:00 CDT, Stop date: 02/04/18 3:49:00 CDTNotes: (Same as: Sublimaze) Preservative free. Fluconazole DAILY Active [place] 10[facility]11/ [facility] Levetiracetam AT BEDTIME Active [facility] 2017 [facility] Levetiracetam DAILY WITH Active St. BREAKFAST 2017 [facility] ferrous sulfate 325 mg=1 tab, Active 325 mg oral PO, Daily, # 30 2016 [facility] enteric coated tab, 0 tablet Refill(s) dexlansoprazole 60 mg=1 cap, Active 60 MG Enteric PO, Daily, # 30 2016 [facility] Coated Capsule cap, 0 [Dexilant] Refill(s) Amino Acids 2,000 mL, Rate: Inactive 4.25% with 5% 83 ml/hr, 2015 [facility] Dextrose and Infuse over: Electrolytes 24.2 hr, Route: (Clinimix E IV, Dosing Sulfite-Free) Weight 47.001 2,000 mL + kg, Total multivitam Volume: 2,011.3, Start date: 10/26/15 22:00:00, Duration: 30 day, Stop date: 11/25/15 21:59:00Notes: Same as: ClinimixE Protonix 40 mg, Route: No Longer IVP, Drug form: Active 2015 [facility] INJ, BID, Dosing Weight 47.001, kg, Start date: 10/26/15 17:00:00, Duration: 30 day, Stop date: 11/25/15 9:00:00Notes: For IV push reconstitute with 10 ml 0.9% sodium chloride and push over 2 minutes. (Same as: Protonix) Amino Acids 1,000 mL, Rate: Inactive 4.25% with 5% 83 ml/hr, 2015 [facility] Dextrose and Infuse over: Electrolytes 12.2 hr, Route: (Clinimix E IV, Dosing Sulfite-Free) Weight 47.001 1,000 mL + kg, Total multivitam Volume: 1,011.3, Start date: 10/26/15 12:00:00, Duration: 10 hr, Stop date: 10/26/15 21:59:00Notes: Same as: ClinimixE Sodium Chloride 250 mL, Rate: No Longer 0.9% (titrate) assembly member for use Active 2015 [facility] 250 mL with blood product administration, Dosing Weight 47.001, kg, Route: IV, Total Volume: 250, Start Date: 10/25/15 16:16:00, Duration: 30 day, Stop date: 11/24/15 16:15:00, Replace Every: 24 hr Sodium Chloride 100 mL, Rate: No Longer 0.154 MEQ/ML 10 ml/hr, Active 2015 [facility] Injectable Infuse over: 10 Solution hr, Route: IVPB, Dosing Weight 47.001 kg, Total Volume: 100, Infuse at 8 mg / hr for 72 hours for GI bleeding, Start date: 10/25/15 14:40:00, Duration: 72 hr, Stop date: 10/28/15 14:39:00 Reglan 5 mg, 1 mL, No Longer Route: IVP, Active 2015 [facility] Drug form: INJ, Q6H, Dosing Weight 47.001, kg, Start date: 10/25/15 12:00:00, Stop date: 11/24/15 6:00:00Notes: (Same as: Reglan) Morphine 2 mg, 1 mL, Inactive Route: IVP, 2015 [facility] Drug form: INJ, ONCE, Dosing Weight 47.001, kg, Start date: 10/25/15 8:51:00, Stop date: 10/25/15 8:51:00Notes: (Same as:MORPhine Sulfate) Calcium 1,000 mg, 2 No Longer Carbonate 500 MG tab, Route: Active 2015 [facility] Chewable Tablet CHEW, Drug form: CHEWTAB, PRN, Dosing Weight 47.001, kg, PRN Abnormal Lab Result, FOR ICU USE ONLY, Start date: 10/25/15 2:39:00, Duration: 30 day, Stop date: 11/24/15 2:38:00Notes: (Same As: Tums) Calcium Carbonate 500 xa=504 mg elemental calcium Dose= mg calcium carbonate ( mg elemental calcium) Magnesium 2 gm, 50 mL, No Longer Sulfate Route: IVPB, Active 2015 [facility] Drug form: INJ, PRN, Dosing Weight 47.001, kg, PRN Abnormal Lab Result, Start date: 10/25/15 2:39:00, Duration: 30 day, Stop date: 11/24/15 2:38:00, FOR ICU USE ONLYNotes: WASTE: F/P - Sink; E - Municipal Trash Bin Neutra-Phos 2 pkt, Route: No Longer PO, Drug Form: Active 2015 [facility] PDR/REC, Dosing Weight 47.001, kg, PRN, PRN Abnormal Lab Result, FOR ICU USE ONLY, Start date: 10/25/15 2:39:00, Duration: 30 day, Stop date: 11/24/15 2:38:00Notes: (Same as: Neutra-Phos) Each 1.25 gm pkt has 250mg phosphorous. Mix w/2.5oz water and stir. Calcium 1 gm, 50 mL, No Longer Gluconate Route: IVPB, Active 2015 [facility] Drug form: INJ, PRN, Dosing Weight 47.001, kg, PRN Abnormal Lab Result, Start date: 10/25/15 2:39:00, Duration: 30 day, Stop date: 11/24/15 2:38:00, FOR ICU USE ONLYNotes: WASTE: F/P - Sink; E - Municipal Trash Bin Magnesium Oxide 800 mg, 2 tab, No Longer Route: PO, Drug Active 2015 [facility] form: TAB, PRN, Dosing Weight 47.001, kg, PRN Abnormal Lab Result, FOR ICU USE ONLY, Start date: 10/25/15 2:39:00, Duration: 30 day, Stop date: 11/24/15 2:38:00Notes: (Same as: Mag-Ox 400) Magnesium oxide [id number] elemental magnesium Dose=____mg magnesium oxide (___mg elemental magnesium) potassium 30 mmol, 250 No Longer phosphate mL, Route: Active 2015 [facility] IVPB, Drug form: INJ, PRN, Dosing Weight 47.001, kg, PRN Abnormal Lab Result, Start date: 10/25/15 2:39:00, Duration: 30 day, Stop date: 11/24/15 2:38:00, FOR ICU USE ONLYNotes: (Same as: K Phosphate.) sodium phosphate 30 mmol, 250 No Longer mL, Route: Active 2015 [facility] IVPB, Drug form: INJ, PRN, Dosing Weight 47.001, kg, PRN Abnormal Lab Result, Start date: 10/25/15 2:39:00, Duration: 30 day, Stop date: 11/24/15 2:38:00, FOR ICU USE ONLY sodium phosphate 45 mmol, 15 mL, No Longer + Sodium Route: IVPB, Active 2015 Chloride 0.9% IV PRN, Dosing 250 mL Weight 47.001, kg, PRN Abnormal Lab Result, Start date: 10/25/15 2:39:00, Duration: 30 day, Stop date: 11/24/15 2:38:00, FOR ICU USE ONLY potassium 45 mmol, 15 mL, No Longer phosphate + Route: IVPB, Active 2015 Sodium Chloride PRN, Dosing 0.9% IV 250 mL Weight 47.001, kg, PRN Abnormal Lab Result, Start date: 10/25/15 2:39:00, Duration: 30 day, Stop date: 11/24/15 2:38:00, FOR ICU USE ONLYNotes: (Same as: K Phosphate.) 1 mMol phoshate has 1.47 mEq potassium Infuse over 4 hours potassium 20 mEq, 1 tab, No Longer chloride Route: PO, Drug Active 2015 [facility] form: ERTAB, PRN, Dosing Weight 47.001, kg, PRN Abnormal Lab Result, Start date: 10/25/15 2:39:00, Duration: 30 day, Stop date: 11/24/15 2:38:00, FOR ICU USE ONLYNotes: (Same as: K-Dur 20) "Do Not Crush" With food and full glass of water Amitriptyline 25 mg, 1 tab, No Longer Route: PO, Drug Active 2015 [facility] form: TAB, Bedtime, Dosing Weight 47.001, kg, Start date: 10/24/15 21:00:00, Duration: 30 day, Stop date: 11/22/15 21:00:00Notes: (Same as: Elavil) morphine Sulfate 2 mg, 1 mL, No Longer Route: IV, Drug Active 2015 [facility] form: INJ, Q4H, PRN Pain Score 4-6, Start date: 10/24/15 15:27:00, Duration: 30 day, Stop date: 11/23/15 15:26:00Notes: (Same as:MORPhine Sulfate) Phenergan 12.5 mg, 0.5 No Longer mL, Route: IM, Active 2015 [facility] Drug form: INJ, Q8H, PRN Nausea, Start date: 10/24/15 15:26:00, Duration: 30 day, Stop date: 11/23/15 15:25:00Notes: Do not give IV push. (Same as: Phenergan) carvedilol 3.125 mg, 1 No Longer tab, Route: PO, Active 2015 [facility] Drug form: TAB, BID, Dosing Weight 47.001, kg, Start date: 10/24/15 9:00:00, Duration: 30 day, Stop date: 11/22/15 17:00:00Notes: Give with food. (Same As: Coreg) 24 HR Etodolac 500 mg, 1 tab, Inactive 500 MG Extended Route: PO, Drug 2015 [facility] Release Tablet form: ERTAB, BID, Dosing Weight 47.001, kg, Start date: 10/24/15 9:00:00, Duration: 30 day, Stop date: 11/22/15 17:00:00 Nexium 40 mg, Route: Inactive PO, Daily, 2015 [facility] Dosing Weight 47.001, kg, Start date: 10/24/15 9:00:00, Duration: 30 day, Stop date: 11/22/15 9:00:00 168 HR Clonidine 1 patch, Route: No Longer 0.87455 MG/HR TOP, Drug Form: Active 2015 [facility] Transdermal ERFILM, Dosing Patch Weight 47.001, kg, qWeek, Start date: 10/24/15 8:44:00, Duration: 30 day, Stop date: 11/21/15 9:00:00Notes: Patch delivers 0.1 mg/24 hours; Patch is applied weekly. "Remove old patch before application of new patch" (Same As: [id number]) Advair Diskus 1 puff, Route: Inactive 500 mcg-50 mcg INHALATION, 2015 [facility] inhalation Drug Form: powder AERO, Dosing Weight 47.001, kg, RBID, Start date: 10/24/15 8:44:00, Duration: 30 day, Stop date: 11/23/15 8:00:00Notes: (Same as: Advair) Methocarbamol 500 mg, 1 tab, No Longer Route: PO, Drug Active 2015 [facility] form: TAB, Q8H, Dosing Weight 47.001, kg, PRN Muscle Spasms, Start date: 10/24/15 7:56:00, Duration: 30 day, Stop date: 11/23/15 7:55:00Notes: (Same as:Robaxin) Meclizine 25 mg, 1 tab, No Longer Route: PO, Drug Active 2015 [facility] form: TAB, TID, Dosing Weight 47.001, kg, PRN Dizziness, Start date: 10/24/15 7:56:00, Duration: 30 day, Stop date: 11/23/15 7:55:00Notes: (Same as: Antivert) Hyoscyamine 0.125 mg, 1 No Longer tab, Route: SL, Active 2015 [facility] Drug form: TAB, Q6H, Dosing Weight 47.001, kg, PRN Spasm, Start date: 10/24/15 7:56:00, Duration: 30 day, Stop date: 11/23/15 7:55:00, Irritable bowel symdromeNotes: (Same as: Levsin) Take 30 min before meal Acetaminophen 2 tab, Route: No Longer 325 MG / PO, Drug Form: Active 2015 [facility] Hydrocodone TAB, Dosing Bitartrate 5 MG Weight 47.001, Oral Tablet kg, Q6H, PRN [[place] 5/325] Pain Score 4-6, Start date: 10/24/15 7:55:00, Duration: 30 day, Stop date: 11/23/15 7:54:00Notes: (Same as: [place] 325/5) Do not exceed 4gm/day of acetaminophen. Alprazolam 0.25 0.25 mg, 1 tab, No Longer MG Oral Tablet Route: PO, Drug Active 2015 [facility] form: TAB, TID, Dosing Weight 47.001, kg, PRN Anxiety, Start date: 10/24/15 7:55:00, Stop date: 11/23/15 7:54:00Notes: With food or milk (Same as: Xanax) Clonidine 0.2 mg, 1 tab, Inactive Hydrochloride Route: PO, Drug 2015 [facility] 0.2 MG Oral form: TAB, Q8H, Tablet Dosing Weight 47.001, kg, Start date: 10/24/15 0:00:00, Duration: 30 day, Stop date: 11/22/15 16:00:00Notes: (Same As: Catapres) Amlodipine 10 mg, 1 tab, No Longer Route: PO, Drug Active 2015 [facility] form: TAB, Daily, Dosing Weight 47.001, kg, Priority: STAT, Start date: 10/23/15 22:43:00, Duration: 30 day, Stop date: 11/22/15 9:00:00Notes: (Same as: Norvasc) Cardene 40 mg in 40 mg, 200 mL, No Longer NS 200 mL Rate: Titrate, Active 2015 [facility] (Titrate.) IV 40 Start Dose: 5 mg mg/hr, Titration: Goal SBP Notes: Same as: Cardene Concentration: (0.2 mg /1 ml ) Labetalol 20 mg, 4 mL, No Longer Route: IVP, Active 2015 [facility] Drug form: INJ, Q2H, Dosing Weight 47.001, kg, PRN Hypertension, Start date: 10/23/15 22:42:00, Duration: 3 day, Stop date: 10/26/15 22:41:00Notes: (Same as: Normodyne, Trandate) Push over 2 minutes Give bolus over 2-3 minutes. Zofran 4 mg, 2 mL, No Longer Route: IVP, Active 2015 [facility] Drug form: INJ, Q4H, PRN Nausea, Start date: 10/23/15 19:05:00, Duration: 30 day, Stop date: 11/22/15 19:04:00Notes: (Same as: Zofran) MEDICATION WASTE Product Size: 4 mg Product Wasted: ___ mg Ondansetron 4 mg, 2 mL, Inactive Route: IVP, 2015 [facility] Drug form: INJ, Q8H, Dosing Weight 47.001, kg, PRN Nausea & Vomiting, Start date: 10/23/15 17:49:00, Duration: 30 day, Stop date: 11/22/15 17:48:00Notes: (Same as: Zofran) MEDICATION WASTE Product Size: 4 mg Product Wasted: ___ mg Sublimaze 200 microgram, No Longer 4 mL, Route: [facility] 2015 [facility] IV, Drug form: INJ, ONCE, Start date: 10/23/15 17:30:00, Stop date: 10/23/15 17:30:00Notes: (Same as: Sublimaze) Preservative free. midazolam 3 mg, 3 mL, No Longer Route: IV, Drug Active 2015 [facility] form: INJ, ONCE, Start date: 10/23/15 17:30:00, Stop date: 10/23/15 17:30:00Notes: (Same as: Versed) MEDICATION WASTE Product Size: 2 mg Product Wasted: ___ mg Thyroxine 25 microgram, 1 No Longer tab, Route: PO, [facility] 2015 [facility] Drug form: TAB, Q630AM, Dosing Weight 47.001, kg, Start date: 10/23/15 6:30:00, Duration: 30 day, Stop date: 11/21/15 6:30:00Notes: Take 1 hour before or 2 hours after meal; Enteral feeds may interefere with the absorption of this medication. (Same as:Levothroid) Sublimaze 25 microgram, No Longer 0.5 mL, Route: [facility] 2015 [facility] IVP, Drug form: INJ, Q3H, PRN Pain Score 4-6, Start date: 10/22/15 21:47:00, Duration: 30 day, Stop date: 11/21/15 21:46:00Notes: (Same as: Sublimaze) Preservative free. Saline Flush 10 ml, Route: No Longer 0.9% IVP, Drug Form: Active 2015 [facility] INJ, Dosing Weight 47.001, kg, Q12H, Start date: 10/22/15 21:00:00, Duration: 30 day, Stop date: 11/21/15 9:00:00Notes: (Same as: BD Posiflush) sennosides, RETIREMENT 8.6 mg, 1 tab, No Longer Route: PO, Drug Active 2015 [facility] Form: TAB, Dosing Weight 47.001, kg, Q12H, Start date: 10/22/15 21:00:00, Duration: 30 day, Stop date: 11/21/15 9:00:00Notes: (Same as: Senokot) Docusate 100 mg, 1 cap, No Longer Route: PO, Drug Active 2015 [facility] form: CAP, Q12H, Dosing Weight 47.001, kg, Start date: 10/22/15 21:00:00, Duration: 30 day, Stop date: 11/21/15 9:00:00Notes: (Same as: Colace) (Do Not Crush) Singulair 10 mg, 1 tab, No Longer Route: PO, Drug Active 2015 [facility] form: TAB, Bedtime, Dosing Weight 47.001, kg, Start date: 10/22/15 21:00:00, Duration: 30 day, Stop date: 11/20/15 21:00:00Notes: (Same as:Singulair) budesonide-formo 2 inhalation, No Longer terol 160 Route: Active 2015 [facility] mcg-4.5 mcg/inh INHALATION, inhalation Drug Form: aerosol with AERO/A, BID, adapter Start date: 10/22/15 17:00:00, Duration: 30 day, Stop date: 11/21/15 9:00:00Notes: (Same as: Symbicort) WASTE: Aerosol - Return to Pharmacy Seroquel 25 mg, 1 tab, No Longer Route: PO, Drug Active 2015 [facility] form: TAB, BID, Dosing Weight 47.001, kg, Start date: 10/22/15 17:00:00, Duration: 30 day, Stop date: 11/21/15 9:00:00Notes: (Same as: SEROquel) Levetiracetam 750 mg, 7.5 mL, No Longer 750 MG Oral Route: PO, Drug Active 2015 [facility] Tablet [Keppra] form: SOLN, BID, Dosing Weight 47.001, kg, Start date: 10/22/15 17:00:00, Duration: 30 day, Stop date: 11/21/15 9:00:00Notes: Same as: Keppra Cymbalta 30 mg, 1 cap, No Longer Route: PO, Drug Active 2015 [facility] form: DRC, BID, Dosing Weight 47.001, kg, Start date: 10/22/15 17:00:00, Duration: 30 day, Stop date: 11/21/15 9:00:00Notes: (Same as: Cymbalta) (Do Not Crush) Advair Diskus 1 puff, Route: Inactive 500 mcg-50 mcg INHALATION, 2015 [facility] inhalation Drug Form: powder AERO, Dosing Weight 47.001, kg, BID, Start date: 10/22/15 17:00:00, Duration: 30 day, Stop date: 11/21/15 9:00:00 ibandronic acid 150 mg=1 tab, No Longer 150 MG Oral PO, qMonth, Active 2015 [facility] Tablet [Boniva] Swallow whole w/6-8oz water 1HR before first food, drink, med-Do not lie down for 1HR & until after first food, # 1 tab, 0 Refill(s) Acetaminophen 2 tab, PO, Q6H, Active 325 MG / PRN for pain, 0 2015 [facility] Hydrocodone Refill(s) Bitartrate 5 MG Oral Tablet [[place] 5/325] carvedilol 3.125 3.125 mg=1 tab, Active mg oral tablet PO, BID, # 180 2015 [facility] tab, 1 Refill(s) dexlansoprazole 60 mg=1 cap, No Longer 60 MG Enteric PO, Daily, # 30 Active 2015 [facility] Coated Capsule day, 1 [Dexilant] Refill(s) duloxetine 30 MG 30 mg=1 cap, Active Enteric Coated PO, BID, # 60 2016 [facility] Capsule cap, 0 [Cymbalta] Refill(s) methocarbamol 500 mg=1 tab, Active 500 mg oral PO, Q8H, PRN 2015 [facility] tablet Spasms, # 60 tab, 0 Refill(s) Levetiracetam 750 mg=1 tab, Active 750 MG Oral PO, BID, # 60 2016 [facility] Tablet [Keppra] tab, 2 Refill(s) montelukast 10 10 mg=1 tab, Active MG Oral Tablet PO, Bedtime, # 2016 [facility] [Singulair] 30 tab, 0 Refill(s) 168 HR Clonidine 1 patch, TOP, Active 0.49233 MG/HR qWeek, # 12 2016 [facility] Transdermal patch, 0 Patch Refill(s) quetiapine 25 MG 25 mg=1 tab, Active Oral Tablet PO, BID, 0 2016 [facility] [Seroquel] Refill(s) linaclotide 145 microgram=1 Active 0.145 MG Oral cap, PO, Daily, 2016 [facility] Capsule 30 minutes [Linzess] prior to the first meal of the day, # 30 cap, 0 Refill(s) etodolac 500 mg 500 mg=1 tab, No Longer oral tablet PO, BID, # 60 Active 2015 [facility] tab, 1 Refill(s) meclizine 25 mg 25 mg=1 tab, Active oral tablet PO, TID, PRN 2015 [facility] for dizziness, # 60 tab, 0 Refill(s) Nexium 40 mg, PO, No Longer Daily, 0 Active 2015 [facility] Refill(s) levocetirizine 5 5 mg=1 tab, PO, Active mg oral tablet Bedtime, PRN as 2016 [facility] needed for allergy symptoms, # 30 tab, 0 Refill(s) hyoscyamine 0.125 mg=1 tab, Active 0.125 mg SL, Q6H, PRN 2016 [facility] sublingual Spasms, # 30 tablet tab, 0 Refill(s) Alprazolam 0.25 0.25 mg=1 tab, Active MG Oral Tablet PO, TID, PRN 2016 [facility] Anxiety, # 30 tab, 0 Refill(s) amitriptyline 25 25 mg=1 tab, Active mg oral tablet PO, Bedtime, # 2016 [facility] 30 tab, 1 Refill(s) Advair Diskus 1 puff, Active 500 mcg-50 mcg INHALATION, 2015 [facility] inhalation BID, # 1 ea, 3 powder Refill(s) levothyroxine 25 25 microgram=1 Active mcg (0.025 mg) tab, PO, Daily, 2015 [facility] oral tablet # 30 tab, 1 Refill(s) Amlodipine 5 mg, PO, BID, Active 0 Refill(s) 2015 [facility] Sodium Chloride 100 mL, Rate: No Longer 0.154 MEQ/ML 10 ml/hr, Active 2015 [facility] Injectable Infuse over: 10 Solution hr, Route: IVPB, Dosing Weight 47.001 kg, Total Volume: 100, Infuse at 8 mg / hr for 72 hours for GI bleeding, Start date: 10/22/15 12:59:00, Duration: 72 hr, Stop date: 10/25/15 12:58:00 Saline Flush 10 ml, Route: No Longer 0.9% IVP, Drug Form: Active 2015 [facility] INJ, Dosing Weight 47.001, kg, PRN, PRN [...] THREE TIMES A Active [facility] Sodium DAY 2013 [facility] [place] Esomeprazole Mag DAILY Active St[facility] Trihydrate 2014 [facility] [place] Ibandronate SEE COMMENT Inactive [facility] Sodium 2014 [facility] [place] Losartan TWICE DAILY Active [facility] St[facility] Potassium 2014 [facility] [place] Meclizine Hcl THREE TIMES Active [facility] St[facility] DAILY NEEDED 2014 [facility] PRN For [place] Dizziness Alprazolam AT BEDTIME PRN Active [facility] For Anxiety [facility] [place] Nitrofurantoin TWICE DAILY Active [facility] Monohyd/M-Cryst 2013 [facility] [place] Dexlansoprazole DAILY Active [facility] St[facility] 2013 [facility] [place] Linaclotide DAILY Active [facility] St[facility] 2013 [facility] [place] Esomeprazole Mag DAILY Active [facility] St[facility] Trihydrate 2012 [facility] [place] Etodolac TWICE DAILY PRN Active [facility] St. For back 2012 [facility] pain/arthritis [place] Fluticasone/[place] TWICE DAILY Active [facility] St[facility] eterol 2012 [facility] [place] Levetiracetam AT BEDTIME Inactive [facility] St[facility] 2012 [facility] [place] Mometasone TWICE DAILY Active [facility] St[facility] Furoate 2012 [facility] [place] Montelukast AT BEDTIME Active [facility] Sodium 2012 [facility] [place] Tiotropium DAILY Active [facility] [place] [facility] [place] Albuterol EVERY 4 HOURS Active [facility] St[facility] NEEDED PRN 2012 [facility] For sob [place] Hydrocodone FOUR TIMES Active [facility] St. Bit/Acetaminophe DAILY NEEDED 2012 [facility] n PRN For Pain [place] Levothyroxine DAILY Active [facility] St[facility] 2012 [facility] [place] Methocarbamol Q6H Active [facility] St[facility] 2012 [facility] [place] Quetiapine AT BEDTIME Inactive [facility] St[facility] Fumarate 2012 [facility] [place] Ciprofloxacin TWICE DAILY Active [facility] St[facility] Hcl 2012 [facility] [place] Levetiracetam TWICE DAILY Active [facility] St[facility] 2012 [facility] [place] Azelastine Active 10/15/ [facility] [place] Mometasone 0.1% Active [facility] St[facility] 2011 [facility] [place] Amlodipine Active St. Besylate 2012 [facility] [place] Carvedilol Active [facility] St[facility] 2011 [facility] [place] Iron Active [facility] St[facility] 2011 [facility] [place] Multivit with Active St. Calcium,Iron,Min 2012 [facility] [place] Nexium Active 10/15/ [facility] [place] Folic Acid Active [facility] St[facility] 2011 [facility] [place] Etodolac Active [facility] St[facility] 2011 [facility] [place] Montelukast Active [facility] St[facility] Sodium 2012 [facility] [place] Boniva Active [facility] St[facility] 2011 [facility] [place] Levetiracetam Active [facility] St[facility] 2011 [facility] [place] Duloxetine Active [facility] St[facility] 2011 [facility] [place] Quetiapine Active [facility] St[facility] Fumarate 2011 [facility] [place] Hydrocodone Active [facility] St. Bit/Acetaminophe 2011 [facility] [place] Avonex Active [facility] St[facility] 2011 [facility] [place] Sumatriptan Active [facility] St[facility] 2011 [facility] [place] Proventil Active 10/15/ [facility] St[facility] 2011 [facility] [place] Allergies, Adverse Reactions, Alerts [...] Comments Source Updated Influenza Adult 06/29/2015 completed [facility] Vacc[facility] - [place] Results Order Name Results Value Reference Date Interpretation Comments Source Range HEMATOLOGY Hct 25.5 36.0 - 02/06 [facility] 48.0 [facility] HEMATOLOGY Hgb 8.6 12.0 - 02/06 [facility] 16. [facility] CHEM PANEL Vitamin D, 12.4 30.0 - 02/05 [facility] 25-OH, Total 100.0 [facility] ELECTROLYT AGAP 13.9 10.0 - 02/05 [facility] 20.0 [facility] ELECTROLYT eGFR 82 02/05 Result [facility] Comment: The Medical eGFR is Center calculated using the CKD-EPI formula. In most young, healthy individuals the eGFR will be >90 mL/min/1.73m2 . The eGFR declines with age. An eGFR of 60-89 may be normal in some populations, particularly the elderly, for whom the CKD-EPI formula has not been extensively validated. Use of the eGFR is not recommended in the following populations:< br/>
Yas viduals with unstable creatinine concentration s, including patients and those with serious co-morbid conditions.<b r/>
Patie nts with extremes in muscle mass or diet.

The data above are obtained from the National Kidney Disease Education Program (NKDEP) which additionally recommends that when the eGFR is used in patients with extremes of body mass index for purposes of drug dosing, the eGFR should be multiplied by the estimated BMI. ELECTROLYT Chloride Lvl 110 95 - 109 02/05 [facility] ELECTROLYT CO2 24 24 - 32 02/05 [facility] ELECTROLYT Sodium Lvl 144 135 - 145 02/05 [facility] ELECTROLYT Potassium 3.9 3.5 - 5.1 02/05 [facility] Lvl /2017 [facility] ELECTROLYT BUN 20 7 - 22 02/05 [facility] ELECTROLYT Creatinine 0.68 0.50 - 02/05 [facility] Lvl 1.40 [facility] ELECTROLYT Glucose Lvl 151 70 - 99 02/05 [facility] ELECTROLYT Calcium Lvl 7.9 8.5 - 10.5 02/05 [facility] HEMATOLOGY MCV 93.8 80.0 - 02/05 [place] 98.0 [facility] HEMATOLOGY MCH 31.7 27.0 - 02/05 [place] 31.0 [facility] HEMATOLOGY Hct 26.2 36.0 - 02/05 [place] 48.0 [facility] HEMATOLOGY Platelet 215 133 - 450 02/05 [facility] HEMATOLOGY MCHC 33.8 32.0 - 02/05 [place] 36.0 [facility] HEMATOLOGY MPV 6.8 7.4 - 10.4 02/05 [facility] HEMATOLOGY RDW 12.7 11.5 - 02/05 [place] 14.5 [facility] HEMATOLOGY Hgb 8.9 12.0 - 02/05 [place] 16.0 [facility] HEMATOLOGY WBC 7.6 3.7 - 10.4 02/05 [facility] HEMATOLOGY RBC 2.79 4.20 - 02/05 [place] 5.40 /2017 [facility] HEMATOLOGY Monocytes # 1.2 0.0 - 0.8 02/05 [facility] HEMATOLOGY Lymphocytes 1.2 1.0 - 5.5 02/05 [place] # /2017 [facility] HEMATOLOGY Monocytes 16.0 2.0 - 12.0 02/05 [facility] HEMATOLOGY Lymphocytes 15.8 20.0 - 02/05 [place] 40.0 [facility] HEMATOLOGY Segs 67.9 45.0 - 02/05 [place] 75.0 [facility] HEMATOLOGY Segs-Bands # 5.1 1.5 - 8.1 02/05 [facility] HEMATOLOGY Basophils 0.3 0.0 - 1.0 02/05 [facility] PARATHYROI PTH Intact 122.9 18.4 - 02/05 [facility] D PROFILE 80.1 [facility] BLOOD BANK ABO/Rh O POS 02/04 [facility] RESULTS [facility] BLOOD BANK Antibody Negative 02/04 [facility] RESULTS Scrn (02/04/18 4:21 AM) [facility] CHEM PANEL Lactic Acid 0.9 0.5 - 2.2 02/04 [facility] Lvl [facility] ELECTROLYT AGAP 11.9 10.0 - 02/04 [facility] ES 20.0 [facility] ELECTROLYT eGFR 83 02/04 Result [facility] Comment: The Medical eGFR is Center calculated using the CKD-EPI formula. In most young, healthy individuals the eGFR will be >90 mL/min/1.73m2 . The eGFR declines with age. An eGFR of 60-89 may be normal in some populations, particularly the elderly, for whom the CKD-EPI formula has not been extensively validated. Use of the eGFR is not recommended in the following populations:< br/>
Yas viduals with unstable creatinine concentration s, including patients and those with serious co-morbid conditions.<b r/>
Patie nts with extremes in muscle mass or diet.

The data above are obtained from the National Kidney Disease Education Program (NKDEP) which additionally recommends that when the eGFR is used in patients with extremes of body mass index for purposes of drug dosing, the eGFR should be multiplied by the estimated BMI. ELECTROLYT Calcium Lvl 8.1 8.5 - 10.5 02/04 [facility] ELECTROLYT CO2 22 24 - 32 05 [facility]2017 [facility] ELECTROLYT Sodium Lvl 140 135 - 145 02/04 [facility]2017 [facility] ELECTROLYT Creatinine 0.67 0.50 - 02/04 [facility] Lvl 1.40 [facility] ELECTROLYT BUN 22 7 - 22 02/[address] ELECTROLYT Glucose Lvl 135 70 - 99 02/04 [facility]2017 [facility] ELECTROLYT Chloride Lvl 110 95 - 109 02/[address] ELECTROLYT Potassium 3.9 3.5 - 5.1 02/04 [facility] HEMATOLOGY PTT 24.7 22.9 - 02/04 [place] 35.8 [facility] HEMATOLOGY INR 1.01 0.85 - 02/04 [place] 1.17 [facility] HEMATOLOGY PT 13.3 12.0 - 02/04 [place] 14.7 [facility] HEMATOLOGY Platelet 232 133 - 450 02/04 [facility]2017 [facility] HEMATOLOGY MPV 7.1 7.4 - 10.4 02/04 [facility]2017 [facility] HEMATOLOGY Hct 32.2 36.0 - 02/04 [place] 48.0 [facility] HEMATOLOGY RBC 3.42 4.20 - 05 [place] 5.40 [facility] HEMATOLOGY Hgb 10.8 12.0 - 05 [place] 16.0 /2018 [facility] [place] HEMATOLOGY WBC 8.5 3.7 - 10.4 05/ /2017 [facility] HEMATOLOGY MCHC 33.5 32.0 - 05 [place] 36.0 /2018 [facility] HEMATOLOGY RDW 13.0 11.5 - 02/04 [place] 14.5 /2017 [facility] HEMATOLOGY MCV 94.1 80.0 - 02/04 [place] 98.0 /2017 [facility] [place] HEMATOLOGY MCH 31.5 27.0 - 05 [place] 31.0 /2018 [facility] HEMATOLOGY Eosinophils 2.3 0.0 - 4.0 05/ [place] /2017 [facility] HEMATOLOGY Lymphocytes 1.7 1.0 - 5.5 05/24 [place] # /2018 [facility] HEMATOLOGY Segs-Bands # 5.5 1.5 - 8.1 05/ /2017 [facility] HEMATOLOGY Basophils 0.8 0.0 - 1.0 05/ /2017 [facility] HEMATOLOGY Basophils # 0.1 0.0 - 0.2 05/ /2017 [facility] HEMATOLOGY Eosinophils 0.2 0.0 - 0.5 05/24 [place] # /2018 [facility] HEMATOLOGY Monocytes # 1.1 0.0 - 0.8 05/ [place] /2018 [facility] HEMATOLOGY Segs 64.6 45.0 - 02/04 [place] 75.0 /2018 [facility] HEMATOLOGY Lymphocytes 19.7 20.0 - 02/04 [place] 40.0 /2018 [facility] HEMATOLOGY Monocytes 12.6 2.0 - 12.0 / [facility] /[address] [place] [address] Laboratory Sodium Level 141 135 - 145 08/[address] [facility] [address] Studies /2017 [facility] [place] Laboratory Potassium 4.4 3.6 - 5.0 08/[address] [facility] [address] [facility] Level /2017 [facility] [place] Laboratory Glucose 204 65 - 120 08/[address] [facility] Level /2017 [facility] [place] Laboratory Estimat 66 90 08/[address] [facility] Glomerular /2017 [facility] Filtration [place] Rate Laboratory Creatinine 0.83 0.44 - 08/[address] [facility] 1.00 [facility] [place] Laboratory Chloride 108 101 - 111 08/[address] [facility] Level /2017 [facility] [place] Laboratory Carbon 25 21 - 31 08/[address] Studies Dioxide /2017 [facility] Level [place] Laboratory Calcium 8.9 8.5 - 10.5 08/[address] [facility] [address] Studies Level /2017 [facility] [place] Laboratory Blood Urea 27 6 - 20 08/[address] [facility] [address] Studies Nitrogen /2016 [facility] [place] Laboratory White Blood 5.6 4.3 - 10.9 08/[address] [facility] [address] Studies Count /2016 [facility] [place] Laboratory Red Cell 11.9 12.1 - 08/[address] [facility] [address] Studies Distribution 15.2 /2016 [facility] Width [place] Laboratory Red Blood 3.33 3.86 - 08/[address] [facility] [address] Studies Count 4.86 /2016 [facility] [place] Laboratory Platelet 240 152 - 406 08/[address] [facility] [address] Studies Count /2016 [facility] [place] Laboratory Neutrophils 83.8 41.7 - 08/[address] [facility] [address] Studies % 73.7 /2016 [facility] [place] Laboratory Monocytes % 1.1 3.3 - 12.3 08/[address] [facility] [address] Studies /2016 [facility] [place] Laboratory Mean 6.8 7.6 - 11.3 08/[address] [facility] [address] Studies Platelet /2017 [facility] Volume [place] Laboratory Mean 92.6 80 - 100 08/24 [facility]. Studies Corpuscular /2016 [facility] Volume [place] Laboratory Mean 35.1 32.0 - 08/[address] [facility] [address] Studies Corpuscular 36.0 /2016 [facility] Hemoglobin [place] [facility] Laboratory Mean 32.5 27.0 - 08/[address] [facility] [address] Studies Corpuscular 35.0 /2016 [facility] Hemoglobin [place] Laboratory Lymphocytes 14.7 15.3 - 08/[address] [facility] [address] Studies % 44.8 /2017 [facility] [place] Laboratory Hemoglobin 10.8 12.0 - 08/[address] [facility] [address] Studies 15.0 /2016 [facility] [place] Laboratory Hematocrit 30.8 36.0 - 08/[address] [facility] [address] Studies 45.0 /2017 [facility] [place] Laboratory Eosinophils 0.0 0 - 4.4 08/[address] [facility] [address] Studies % /2017 [facility] [place] Laboratory Basophils % 0.4 0 - 1.3 08/[address] [facility] [address] Studies /2017 [facility] [place] Laboratory Absolute 4.7 1.8 - 8.0 08/[address] [facility] [address] Studies Neutrophil /2017 [facility] [place] Laboratory Absolute 0.1 0.1 - 1.3 08/24 [facility]. Studies Monocytes /2016 [facility] (CBC) [place] Laboratory Absolute 0.8 0.7 - 4.9 08/24 [facility]. Studies Lymphocytes [facility] (CBC) [place] Laboratory Absolute 0.0 0 - 0.5 08/24 [facility]. Studies Eosinophils /2016 [facility] (CBC) [place] Laboratory Absolute 0.0 0 - 0.5 08/24 [facility]. Studies Basophils [facility] (CBC) [place] Laboratory B-Type 202 08/24 [facility]. Studies Natriuretic [facility] Peptide [place] Laboratory Troponin I <0.03 08/24 [facility]. Studies [facility] [place] Laboratory Urine pH 6.0 08/23 [facility]. Studies [facility] [place] Laboratory Urine Total Urine 08/23 [facility] Studies Protein Total /2016 [facility] Protein [place] Laboratory Urine 1.025 08/23 [facility]. Studies Specific [facility] [place] Laboratory Urine Urine 08/23 [facility] Studies Nitrite Nitrite /2016 [facility] [place] Laboratory Urine Urine 08/23 [facility] Studies Leukocyte Leukocyte /2016 [facility] Esterase Esterase [place] Laboratory Urine Urine 08/23 [facility] Studies Ketones Ketones /2016 [facility] [place] Laboratory Urine Urine 08/23 [facility] Studies Glucose Glucose [facility] - [facility] Urine Blood Urine 08/23 [facility] Studies Blood /2016 [facility] Procalcitoni <0.05 08/23 [facility] Studies n [facility] Creatine 2.3 0.3 - 4.0 08/23 [facility] Studies Kinase MB /2016 [facility] Total 0.6 0.3 - 1.2 08/23 [facility] Studies Bilirubin /2016 [facility] Serum Total 6.6 6.0 - 8.3 08/23 [facility]. Studies Protein [facility] Magnesium 1.9 1.8 - 2.5 08/23 [facility]. Studies Level /2016 [facility] Globulin 3.2 2.3 - 3.5 08/[address] [facility] Studies [facility] Direct 0.1 0 - 0.2 08/23 [facility] Studies Bilirubin /2016 [facility] Creatine 53 22 - 269 08/23 [facility]. Studies Kinase /2016 [facility] Aspartate 17 10 - 42 08/23 [facility]. Studies Amino Transf /2016 [facility] (AST/SGOT[facility] Alkaline 57 42 - 121 08/23 [facility]. Studies Phosphatase /2016 [facility] Albumin/Glob 1.1 1.1 - 1.8 08/23 [facility] Studies ulin Ratio /2016 [facility] Albumin 3.4 3.2 - 5.5 08/23 [facility]. Studies /2016 [facility] Alanine 10 10 - 60 08/23 [facility] Studies Aminotransfe /2016 [facility] rase [facility] (ALT/SGPT) Laboratory Rapid <0.03 08/23 [facility] Studies Troponin I /2016 [facility] Lipase 22 22 - 51 08/23 [facility]. Studies [facility] Prothrombin 12.1 9.5 - 12.5 08/23 [facility]. Studies Time /2016 [facility] INR 1.03 08/23 [facility] Studies Internationa /2016 [facility] l Normalized [facility] Activated 27.2 24.3 - 08/23 [facility] Studies Partial 36.9 [facility] Thromboplast [facility] ELECTROLYT AGAP 11.7 10.0 - 10/28 ES 20.0 /2016 [facility] ELECTROLYT eGFR 99 10/28 Result ES /2015 Comment: The [facility] eGFR is calculated using the CKD-EPI formula. In most young, healthy individuals the eGFR will be >90 mL/min/1.73m2 . The eGFR declines with age. An eGFR of 60-89 may be normal in some populations, particularly the elderly, for whom the CKD-EPI formula has not been extensively validated. Use of the eGFR is not recommended in the following populations:< br/>
Yas viduals with unstable creatinine concentration s, including patients and those with serious co-morbid conditions.<b r/>
Patie nts with extremes in muscle mass or diet.

The data above are obtained from the National Kidney Disease Education Program (NKDEP) which additionally recommends that when the eGFR is used in patients with extremes of body mass index for purposes of drug dosing, the eGFR should be multiplied by the estimated BMI. ELECTROLYT CO2 29 24 - 32 10/28 [facility] ELECTROLYT Chloride Lvl 104 95 - 109 10/28 [facility] ELECTROLYT Potassium 3.7 3.5 - 5.1 10/28 ES Lvl /2015 [facility] ELECTROLYT Sodium Lvl 141 135 - 145 10/28 [facility] ELECTROLYT Creatinine 0.40 0.50 - 10/28 ES Lvl 1.40 /2015 [facility] ELECTROLYT Calcium Lvl 8.1 8.5 - 10.5 10/28 [facility] ELECTROLYT BUN 8 7 - 22 10/28 [facility] ELECTROLYT Glucose Lvl 94 70 - 99 10/28 [facility] HEMATOLOGY RDW 16.6 11.5 - 10/28 14. [facility] HEMATOLOGY MPV 7.2 7.4 - 10.4 10/28 [facility] HEMATOLOGY Platelet 299 133 - 450 10/28 [facility] HEMATOLOGY MCH 29.8 27.0 - 10/28 31.0 /2015 [facility] HEMATOLOGY MCHC 32.9 32.0 - 10/28 36.0 /2015 [facility] HEMATOLOGY MCV 90.5 80.0 - 10/28 98.0 /2016 [facility] HEMATOLOGY RBC 3.41 4.20 - 10/28 5.40 /2016 [facility] HEMATOLOGY WBC 8.1 3.7 - 10.4 10/28 [facility] HEMATOLOGY Hct 30.9 36.0 - 10/28 48.0 /2016 [facility] HEMATOLOGY Hgb 10.2 12.0 - 10/28 16.0 /2015 [facility] HEMATOLOGY Basophils 1.1 0.0 - 1.0 10/28 [facility] HEMATOLOGY Segs-Bands # 5.4 1.5 - 8.1 10/28 [facility] HEMATOLOGY Basophils # 0.1 0.0 - 0.2 10/[address] [facility] Lymphocytes 1.2 1.0 - 5.5 10/28 /[address] [facility] Monocytes # 0.8 0.0 - 0.8 10/28 [facility] HEMATOLOGY Eosinophils 0.6 0.0 - 0.5 10/28 MH # /2015 [facility] HEMATOLOGY Segs 66.7 45.0 - 10/28 MH 75.0 /2015 [facility] HEMATOLOGY Lymphocytes 15.1 20.0 - 10/28 MH 40.0 /2015 [facility] HEMATOLOG[facility] Monocytes 9.7 2.0 - 12.0 10/28 /2015 [facility] HEMATOLOGY Eosinophils 7.4 0.0 - 4.0 10/28 /2015 [facility] HEMATOLOGY Hct 30.2 36.0 - 10/28 MH 48.0 /2015 [facility] HEMATOLOGY Hgb 10.1 12.0 - 10/28 MH 16.0 /2015 [facility] HEMATOLOGY Hgb 9.4 12.0 - 10/27 MH 16.0 /2015 [facility] HEMATOLOGY Hct 27.9 36.0 - 10/27 MH 48.0 /2015 [facility] HEMATOLOGY PT 14.3 12.0 - 10/27 MH 14.7 /2015 [facility] HEMATOLOGY PTT 34.3 22.9 - 10/27 MH 35.8 /2015 [facility] HEMATOLOGY INR 1.08 0.85 - 10/27 MH 1.17 /2015 [facility] HEMATOLOGY Eosinophils 4.9 0.0 - 4.0 10/27 /2015 [facility] HEMATOLOGY Monocytes 8.3 2.0 - 12.0 10/27 /2015 [facility] HEMATOLOGY Basophils # 0.1 0.0 - 0.2 10/27 /2015 [facility] HEMATOLOGY Lymphocytes 0.9 1.0 - 5.5 10/27 MH # /2015 [facility] HEMATOLOGY Monocytes # 0.8 0.0 - 0.8 10/27 /2015 [facility] HEMATOLOGY Basophils 0.7 0.0 - 1.0 10/27 [facility] HEMATOLOGY Segs-Bands # 7.0 1.5 - 8.1 10/27 /2015 [facility] HEMATOLOGY Lymphocytes 9.9 20.0 - 10/27 MH 40.0 /2015 [facility] HEMATOLOGY Segs 76.2 45.0 - 10/27 MH 75.0 /2015 [facility] HEMATOLOGY Eosinophils 0.5 0.0 - 0.5 10/27 MH # /2015 [facility] HEMATOLOGY WBC 9.2 3.7 - 10.4 10/27 /2015 [facility] HEMATOLOGY MPV 7.5 7.4 - 10.4 10/27 /2015 [facility] HEMATOLOGY MCV 90.5 80.0 - 10/27 MH 98.0 /2015 [facility] HEMATOLOGY MCH 30.0 27.0 - 10/27 MH 31.0 /2015 [facility] HEMATOLOGY MCHC 33.1 32.0 - 02 MH 36.0 /2015 [facility] HEMATOLOGY RBC 2.88 4.20 - 10/27 MH 5.40 /2016 [facility] HEMATOLOGY Platelet 246 133 - 450 10/27 MH /2015 [facility] HEMATOLOGY RDW 16.9 11.5 - 02 14.5 /2015 [facility] URINE AND UA <=1.0 0.1 - 1.0 10/26 STOOL Urobilinogen /2015 [facility] URINE AND Micro? Performed 10/26 STOOL *NA* /2015 [facility] (10/26/15 5:46 PM) URINE AND UA RBC <1 0 - 2 10/26 STOOL [facility] URINE AND UA Bacteria Occasional None Seen 10/26 STOOL /HPF /HPF /2015 [facility] URINE AND UA Bili Negative Negative 10/26 STOOL *NA* /2015 [facility] (10/26/15 5:46 PM) URINE AND UA Protein Negative Negative 10/26 STOOL mg/dL mg/dL [facility] URINE AND UA Glucose Negative Negative 10/26 STOOL mg/dL mg/dL [facility] URINE AND UA Ketones Negative Negative 10/26 STOOL mg/dL mg/dL [facility] URINE AND UA WBC 1 0 - 5 10/26 STOOL [facility] URINE AND UA Sq Epi Occasional Few /LPF 10/26 STOOL /LPF /2015 [facility] URINE AND UA Leuk Est Trace Negative 10/26 STOOL *ABN* /2015 [facility] (10/26/15 5:46 PM) URINE AND UA Nitrite Negative Negative 10/26 STOOL (10/26/15 5:46 PM) [facility] URINE AND UA Blood Negative Negative 10/26 STOOL (10/26/15 5:46 PM) [facility] URINE AND UA Turbidity Clear Clear 10/26 STOOL (10/26/15 5:46 PM) [facility] URINE AND UA Spec Grav 1.006 <=1.030 10/26 STOOL [facility] URINE AND UA pH 6.0 5.0 - 8.0 10/26 STOOL [facility] URINE AND UA Color Light Yellow Yellow 10/26 STOOL *NA* [facility] (10/26/15 5:46 PM) BLOOD BANK ABO/Rh O POS 10/26 RESULTS /2015 [facility] BLOOD BANK Antibody Negative 10/26 RESULTS Scrn (10/26/15 4:09 AM) /2016 [facility] CHEM PANEL eGFR 99 10/26 Result Comment: The [facility] eGFR is calculated using the CKD-EPI formula. In most young, healthy individuals the eGFR will be >90 mL/min/1.73m2 . The eGFR declines with age. An eGFR of 60-89 may be normal in some populations, particularly the elderly, for whom the CKD-EPI formula has not been extensively validated. Use of the eGFR is not recommended in the following populations:< br/>
Yas viduals with unstable creatinine concentration s, including patients and those with serious co-morbid conditions.<b r/>
Patie nts with extremes in muscle mass or diet.

The data above are obtained from the National Kidney Disease Education Program (NKDEP) which additionally recommends that when the eGFR is used in patients with extremes of body mass index for purposes of drug dosing, the eGFR should be multiplied by the estimated BMI. CHEM PANEL Calcium Lvl 7.4 8.5 - 10.5 10/26 [facility] CHEM PANEL CO2 30 24 - 32 10/26 [facility] CHEM PANEL Chloride Lvl 103 95 - 109 10/26 [facility] CHEM PANEL Sodium Lvl 141 135 - 145 10/26 [facility] CHEM PANEL Potassium 3.6 3.5 - 5.1 10/26 Lvl [facility] CHEM PANEL BUN 13 7 - 22 10/26 [facility] CHEM PANEL Creatinine 0.40 0.50 - 10/26 MH Lvl 1.40 /2015 [facility] CHEM PANEL Glucose Lvl 124 70 - 99 10/26 [facility] CHEM PANEL AGAP 11.6 10.0 - 02 MH 20.0 [facility] CHEM PANEL Phosphorus 2.4 2.5 - 4.5 10/26 [facility] CHEM PANEL Magnesium 1.9 1.8 - 2.4 10/26 Lvl [facility] HEMATOLOGY Basophils 0.4 0.0 - 1.0 10/26 [facility] HEMATOLOGY Segs-Bands # 9.0 1.5 - 8.1 10/26 [facility] HEMATOLOGY Monocytes 7.1 2.0 - 12.0 10/26 [facility] HEMATOLOGY Lymphocytes 9.6 20.0 - 02 MH 40.0 /2015 [facility] HEMATOLOGY Lymphocytes 1.1 1.0 - 5.5 02/ MH # /2016 [facility] HEMATOLOGY Eosinophils 3.4 0.0 - 4.0 / MH /2015 [facility] HEMATOLOGY Eosinophils 0.4 0.0 - 0.5 02/ MH # /2016 [facility] HEMATOLOGY Basophils # 0.0 0.0 - 0.2 02/ MH /2015 [facility] HEMATOLOGY Monocytes # 0.8 0.0 - 0.8 02/ /2015 [facility] HEMATOLOGY Segs 79.5 45.0 - 02/ MH 75.0 /2015 [facility] HEMATOLOGY MCH 29.9 27.0 - 02/ MH 31.0 /2015 [facility] HEMATOLOGY RBC 2.93 4.20 - 02 MH 5.40 /2015 [facility] HEMATOLOGY MPV 7.4 7.4 - 10.4 10/26 /2015 [facility] HEMATOLOGY RDW 17.7 11.5 - 10/26 MH 14.5 /2015 [facility] HEMATOLOGY MCHC 32.8 32.0 - 10/26 MH 36.0 /2015 [facility] HEMATOLOGY Platelet 182 133 - 450 10/26 /2015 [facility] HEMATOLOGY MCV 91.2 80.0 - 10/26 98.0 /2015 [facility] HEMATOLOGY WBC 11.3 3.7 - 10.4 02/ /2015 [facility] PARATHYROI Ca Ion WB 1.08 1.05 - 10/26 D PROFILE 1. [facility] PARATHYROI Ca Norm WB 1.09 1.05 - 10/26 D PROFILE 1. [facility] BLOOD BANK RBC product Product available 10/25 RESULTS (10/25/15 4:16 PM) /2015 [facility] HEMATOLOGY Polychrom Moderate None Seen 10/25 *ABN* /2015 [facility] (10/25/15 10:21 AM) HEMATOLOGY Plt Morph Normal 10/25 (10/25/15 10:21 AM) /2015 [facility] HEMATOLOGY Baso Moderate None Seen 10/25 [place] *ABN* /2015 [facility] (10/25/15 10:21 AM) HEMATOLOGY PTT 33.0 22.9 - 10/25 MH 35.8 /2015 [facility] HEMATOLOGY INR 1.18 0.85 - 10/25 MH 1.17 /2015 [facility] HEMATOLOGY PT 15.3 12.0 - 10/25 MH 14.7 /2015 [facility] BLOOD BANK RBC product Product available 10/25 RESULTS (10/25/15 2:39 AM) /2015 [facility] CHEM PANEL Magnesium 1.7 1.8 - 2.4 10/25 [facility] CHEM PANEL eGFR 99 10/25 Result Comment: The [facility] eGFR is calculated using the CKD-EPI formula. In most young, healthy individuals the eGFR will be >90 mL/min/1.73m2 . The eGFR declines with age. An eGFR of 60-89 may be normal in some populations, particularly the elderly, for whom the CKD-EPI formula has not been extensively validated. Use of the eGFR is not recommended in the following populations:< br/>
Yas viduals with unstable creatinine concentration s, including patients and those with serious co-morbid conditions.<b r/>
Patie nts with extremes in muscle mass or diet.

The data above are obtained from the National Kidney Disease Education Program (NKDEP) which additionally recommends that when the eGFR is used in patients with extremes of body mass index for purposes of drug dosing, the eGFR should be multiplied by the estimated BMI. CHEM PANEL Calcium Lvl 7.4 8.5 - 10.5 10/25 [facility] CHEM PANEL AGAP 12.4 10.0 - 10/25 20.0 [facility] CHEM PANEL Glucose Lvl 137 70 - 99 10/25 [facility] CHEM PANEL BUN 16 7 - 22 10/25 [facility] CHEM PANEL Creatinine 0.40 0.50 - 10/25 Lvl 1.40 [facility] CHEM PANEL Sodium Lvl 141 135 - 145 10/25 [facility] CHEM PANEL Potassium 3.4 3.5 - 5.1 10/25 l [facility] CHEM PANEL Chloride Lvl 105 95 - 109 10/25 [facility] CHEM PANEL CO2 27 24 - 32 10/25 [facility] CHEM PANEL Phosphorus 3.1 2.5 - 4.5 10/25 [facility] HEMATOLOGY Baso Moderate None Seen 10/25 [place] *ABN* /2015 [facility] (10/25/15 1:39 AM) HEMATOLOGY Polychrom Moderate None Seen 10/25 *ABN* /2015 [facility] (10/25/15 1:39 AM) HEMATOLOGY Plt Morph Normal 10/25 (10/25/15 1:39 AM) /2015 [facility] PARATHYROI Ca Norm WB 1.08 1.05 - 10/25 MH D PROFILE . [facility] PARATHYROI Ca Ion WB 1.05 1.05 - 10/25 D PROFILE . [facility] CHEM PANEL Lactic Acid 1.0 0.5 - 2.2 10/24 Lvl [facility] CHEM PANEL Phosphorus 3.7 2.5 - 4.5 02 /2015 [facility] CHEM PANEL Magnesium 1.7 1.8 - 2.4 10/24 Lvl [facility] HEMATOLOGY INR 1.18 0.85 - 10/24 MH 1.17 /2015 [facility] HEMATOLOGY PT 15.3 12.0 - 10/24 MH 14.7 /2015 [facility] HEMATOLOGY PTT 27.8 22.9 - 10/24 MH 35.8 /2015 [facility] PARATHYROI Ca Norm WB 1.08 1.05 - 10/24 D PROFILE . [facility] PARATHYROI Ca Ion WB 1.08 1.05 - 10/24 D PROFILE . [facility] BLOOD BANK RBC product Product available 10/23 RESULTS (10/22/15 10:44 PM) /2015 [facility] BLOOD BANK Antibody Negative 10/23 RESULTS Scrn (10/22/15 9:04 PM) /2015 [facility] BLOOD BANK ABO/Rh O POS 10/23 RESULTS /2015 [facility] URINE AND UA <=1.0 0.1 - 1.0 10/22 STOOL Urobilinogen /2015 [facility] URINE AND UA WBC 1 0 - 5 10/22 STOOL /2015 [facility] URINE AND UA Leuk Est Negative Negative 10/22 STOOL (10/22/15 2:58 PM) /2015 [facility] URINE AND UA Blood Negative Negative 10/22 STOOL (10/22/15 2:58 PM) [facility] URINE AND UA Bili Negative Negative 10/22 STOOL *NA* /2015 [facility] (10/22/15 2:58 PM) URINE AND UA Sq Epi None Seen 10/22 STOOL /2015 [facility] URINE AND UA Color Light Yellow Yellow 10/22 STOOL *NA* /2015 [facility] (10/22/15 2:58 PM) URINE AND UA Spec Grav 1.009 <=1.030 10/22 STOOL /2015 [facility] URINE AND UA Turbidity Clear Clear 10/22 STOOL (10/22/15 2:58 PM) /2015 [facility] URINE AND UA pH 7.0 5.0 - 8.0 10/22 STOOL /2016 [facility] URINE AND UA Glucose 50 mg/dL Negative 10/22 STOOL mg/dL /2015 [facility] URINE AND UA Protein Negative Negative 10/22 STOOL mg/dL mg/dL [facility] URINE AND UA Ketones Negative Negative 10/22 STOOL mg/dL mg/dL [facility] URINE AND UA Nitrite Negative Negative 10/22 STOOL (10/22/15 2:58 PM) [facility] BACTERIAL MRSA by PCR Negative 10/22 - SEROLOGY (10/22/15 1:20 PM) [facility] CHEM PANEL Ammonia 32.0 <=45.0 10/22 uMol/L /2015 [facility] CHEM PANEL Lipase Lvl 160 73 - 393 10/22 [facility] CHEM PANEL Lactic Acid 0.9 0.5 - 2.2 10/22 Lvl /2015 [facility] CHEM PANEL Globulin 2.2 2.0 - 4.0 10/22 [facility] CHEM PANEL A/G Ratio 1.0 0.7 - 1.6 10/22 [facility] CHEM PANEL ALANINE 16 0 - 65 10/22 AMINOTRANSFE /2015 [facility] RASE CHEM PANEL Bili Total 0.4 0.2 - 1.3 10/22 MH /2015 [facility] CHEM PANEL Alk Phos 42 39 - 136 10/22 MH /2015 [facility] CHEM PANEL Bili Direct 0.1 0.0 - 0.3 10/22 /2015 [facility] CHEM PANEL Total 4.3 6.4 - 8.4 10/22 Protein /2015 [facility] CHEM PANEL Albumin Lvl 2.1 3.5 - 5.0 10/22 MH /2015 [facility] CHEM PANEL ASPARTATE 19 0 - 37 10/22 TRANSAMINASE /2015 [facility] CHEM PANEL Bili 0.3 0.0 - 1.0 10/22 Indirect /2016 [facility] ENDOCRINOL Cortisol 3.4 10/22 OGY /2016 [facility] SPECIAL Hgb A1C <3.5 % <=5.6 % 10/22 Result CHEMISTRY /2016 Comment: [facility] Hgb A1c result of <3.5_ should be interpreted with caution due to possibility of pre analytical error Pathology Reports No Data Provided for This Section Diagnostic Reports Report Value Date Source Humerus 2 views DX EXAM: XR HUMERUS 2 VIEWS 02/04/2018 [facility] DATE: 02/04/2018 4:28 PM CDT Center INDICATION: Post Op Alignment - Post Op [...] mid humerus diaphyseal fracture post internal fixation. Humerus 2 views DX EXAM: XR RIGHT HUMERUS 2 VIEWS 02/04/2018 [facility] DATE: 02/04/2018 4:33 AM CDT Center INDICATION: arm pain s/p fall COMPARISON: Right [...] humerus. 3. No additional significant interval change. Forearm 2 views DX EXAM: XR RIGHT ELBOW 3 VIEWS 02/04/2018 [facility] EXAM: XR RIGHT FOREARM 2 VIEWS Center EXAM: XR RIGHT SHOULDER 3 VIEWS DATE: 02/04/2018 at 0358 hours INDICATION: Trauma [...] 5. Advanced osteoarthritis of right glenohumeral joint. Shoulder series DX EXAM: XR RIGHT ELBOW 3 VIEWS 02/04/2018 [facility] EXAM: XR RIGHT FOREARM 2 VIEWS Center EXAM: XR RIGHT SHOULDER 3 VIEWS DATE: 02/04/2018 at 0358 hours INDICATION: Trauma [...] osteoarthritis of right glenohumeral joint. Elbow 3 views DX EXAM: XR RIGHT ELBOW 3 VIEWS 02/04/2018 [facility] EXAM: XR RIGHT FOREARM 2 VIEWS Center EXAM: XR RIGHT SHOULDER 3 VIEWS DATE: 02/04/2018 at 0358 hours INDICATION: Trauma [...] 5. Advanced osteoarthritis of right glenohumeral joint. Chest 1view DX PROCEDURE: Chest 1view 10/26/2015 [facility] CLINICAL INFORMATION Abnormal chest sounds COMPARISON: 10/2015 multiple x-rays. Right PICC line tip in the superior vena cava/right atrial junction. Prominent aortic root which may be seen with aneurysm. Left humeral replacement. Chronic left upper lateral hemithorax rib fractures. Severe right glenohumeral joint osteoarthritic change. Cardiomegaly, minimal congestive change. No pneumothorax. SL: 14 Chest 1view DX Portable one view AP chest, Oct 24, 2015 02:13:00 AM 2015 [facility] CLINICAL HISTORY: Abnormal chest sounds ; See Clinic Indication TECHNIQUE: Routine AP view of the chest was obtained. COMPARISON: Chest radiographs 2 days ago FINDINGS: Lungs are clear. No pleural effusion or radiographically detectable pneumothorax is present. Cardiomediastinal silhouette is unchanged. Bones are unchanged. Lifelines are stable. IMPRESSION: No acute abnormality of the chest. Cardiomegaly with tortuous and ectatic thoracic aorta SL: 14 Angiogram visceral Distal arteriogram with subselective embolizations, 2015 at 1532. 10/23/2015 [facility] artery initial VR CLINICAL HISTORY: 80-year-old female; upper gas intestinal bleeding, hematemesis, from bleeding duodenal source as per outside facility EGD, with prior clipping in the duodenal bulb region; persistent melena and requirement of transfusions COMPARISON: Abdominopelvic CTA day before PROCEDURE: Informed consent was obtained from the patient, after which the patient was brought into the examination suite and placed in supine position on the fluoroscopy table. The right groin was prepped and felisha ped utilizing all elements of maximal barrier sterile technique. Right common femoral arterial pulse was palpated and radiographically marked , after which lidocaine 1% was injected into a focus of overlying skin. A 19- gauge needle was used to access the right common femoral artery, after which a [place] wire was advanced through the needle and into the abdominal aorta. Needle was exchanged for a 5 Afghan sheath. 5 Afghan Diaz B catheter was advanced over the [...] and 200 micrograms fentanyl, for a total [id number] sedation time of 70. DRAW HAND: Dr. Howard. FLUOROSCOPY TIME: 15.6 minutes IMPRESSION: 1. Negative for focal active arterial extravasation. 2. Successful empiric Gelfoam embolizations of the right gastric artery, proximal GDA branch leading to the endoscopically placed surgical clip in the duodenum, and GDA. SL: 14 Abdomen/Pelvis CTA CTA Abdomen and Pelvis, 10/22/2015 at 1626. 10/22/2015 [facility] CLINICAL HISTORY: 80-year-old female; upper gastrointestinal hemorrhage; hematemesis; status post EGD with clipping of a duodenal bleeding site at an outside facility. TECHNIQUE: 0.625 mm thick axial images of [...] Tiny left pleural effusion. SL: 14 Chest 1view DX Chest one view: 10/22/2015 [facility] Exam reason: Shortness of Breath A few scattered interstitial opacities are noted bilaterally, nonspecific , likely chronic. The cardiac silhouette is upper [...] deformity at the upper left hemithorax. SL:14 Consultation Notes No Data Provided for This Section Discharge Summaries No Data Provided for This Section History and Physicals No Data Provided for This Section Vital Signs Vital Sign Value Date Comments Source BMI Calculated 16.66 01/21/2019 [facility] Weight 46.818 01/21/2019 [facility] Height 167.64 cm 01/21/2019 [facility] Respitory Rate 16 01/21/2019 [facility] Heart Rate 76 01/21/2019 [facility] Systolic (mm Hg) 130 01/21/2019 [facility] Diastolic (mm Hg) 71 01/21/2019 [facility] BMI Calculated 16.98 12/30/2018 [facility] Weight 47.727 12/30/2018 [facility] Height 167.64 cm 12/30/2018 [facility] Systolic (mm Hg) 109 12/30/2018 [facility] Diastolic (mm Hg) 61 12/30/2018 [facility] Respitory Rate 16 12/30/2018 [facility] Heart Rate 69 12/30/2018 [facility] Temperature Oral (F) 99.2 F 02/06/2018 [facility] Heart Rate 98 02/06/2018 [facility] Respitory Rate 18 02/06/2018 [facility] Systolic (mm Hg) 163 02/06/2018 [facility] Diastolic (mm Hg) 90 02/06/2018 [facility] Heart Rate 97 02/06/2018 [facility] Respitory Rate 17 02/06/2018 [facility] Systolic (mm Hg) 140 02/06/2018 [facility] Diastolic (mm Hg) 73 02/06/2018 [facility] Temperature Oral (F) 98.5 F 02/06/2018 [facility] Respitory Rate 18 02/06/2018 [facility] Heart Rate 85 02/06/2018 [facility] Temperature Oral (F) 97.8 F 02/06/2018 [facility] [facility] Systolic (mm Hg) 132 02/06/2018 [facility] Diastolic (mm Hg) 80 02/06/2018 [facility] Height 167.64 cm 02/05/2018 [facility] Weight 47.273 02/05/2018 [facility] BMI Calculated 16.82 02/05/2018 [facility] BMI Calculated 18.44 02/04/2018 [facility] Weight 51.818 02/04/2018 [facility] Height 167.64 cm 02/04/2018 [facility] Temperature Oral (F) 98.6 F 08/24/[address] [facility] Heart Rate 75 08/24/[address] [facility] Respitory Rate 20 08/24/[address] [facility] Systolic (mm Hg) 177 08/24/[address] [facility] Diastolic (mm Hg) 86 08/24/[address] [facility] Height 66 08/23/[address] [facility] Weight 96.43 08/23/[address] [facility] Respitory Rate 18 10/28/2015 [facility] Systolic (mm Hg) 124 10/28/2015 [facility] Diastolic (mm Hg) 68 10/28/2015 [facility] Temperature Oral (F) 98.1 F 10/28/2015 [facility] Heart Rate 74 10/28/2015 [facility] Respitory Rate 20 10/28/2015 [facility] Systolic (mm Hg) 121 10/28/2015 [facility] Diastolic (mm Hg) 72 10/28/2015 [facility] Heart Rate 79 10/28/2015 [facility] Temperature Oral (F) 97.9 F 10/28/2015 [facility] Respitory Rate 18 10/28/2015 [facility] Heart Rate 76 10/28/2015 [facility] Temperature Oral (F) 97.6 F 10/28/2015 [facility] Systolic (mm Hg) 110 10/28/2015 [facility] Diastolic (mm Hg) 67 10/28/2015 [facility] Height 152.4 cm 10/27/2015 [facility] Height 165.1 cm 10/22/2015 [facility] Weight 47.001 10/22/2015 [facility] BMI Calculated 17.24 10/22/2015 [facility] Encounters Location Location Encounter Encounter Reason Attending ADM DC Status Source Details Type Number For Provider Date Date Visit [facility] [id number] Matthieu 10/22 10/28 Raymond Kohler /2015 [facility] [id number] 08/23 08/[address] [facility] [id number] Cerena 02/04 02/06 [facility]2017 [facility] Phone [id number] 08/20 [facility] [place] [facility] [id number] DEN 10/19 [facility] Raymond Outpatient [id number] Den 12/30 [facility] Outpatient [id number] Den 12/30 12/31 [facility] /2018 [facility] [place] Outpatient [id number] Den 01/21 [facility] [place] [facility] Outpatient [id number] Den 01/21 01/22 [facility] Neurology [facility] /2018 [facility] [place] Outpatient [id number] Den 02/09 [facility] [place] [facility] Ambulatory [id number] Den 02/09 02/09 [facility] Neurology Pre-Reg [place] /2018 [facility] [place] Outpatient [id number] Den 03/25 [facility] [place] Outpatient [id number] DEN 03/31 [facility] [place] Outpatient [id number] Den 07/29 [facility] Raymond Procedures Procedure Code Date Perfomer Comments Source Chest Single View [id number] 08/24/[address] [facility] Chest Single View [id number] 08/23/[address] [facility] Influenza Type B 08/23/[address] [facility] Ant[facility] [place] Influenza Type A 08/23/[address] [facility] Antigen Screen [place] Carnegie Count 08/23/[address] [facility] [place] [facility] [place] A[facility] Blood [facility] [place] 08/23/[address] [facility] [place] Appendectomy [id number] [facility] Neuro Arthroscopy of [id number] [facility] Neuro knee Elbow maneuver [id number] [facility] Neuro Hysterectomy [id number] [facility] Neuro Repair of shoulder [id number] [facility] Neuro Appendectomy [id number] [facility] Arthroscopy of [id number] [facility] Elbow maneuver [id number] [facility] Hysterectomy [id number] [facility] Repair of shoulder [id number] [facility] Assessment and Plan Assessment and Plan Date Source Extracted from:Title: ORS Progress Note 02/06/2018 [facility] Author: Bertha Terrell MD Date: 02/06/18 Ortho Trauma Progress Note Subjective: Resting in bed. Moderate pain R arm. Elevated on multiple pillows. Tolerating diet. Objective: Vitals Tmp(F) Pulse BP RR SpO2 FIO2 02/05 19:46 99.5 102 134/69 18 96 --- 02/05 15:53 98.7 79 103/69 18 97 --- 02/05 12:24 97.9 83 128/67 18 98 --- 02/05 12:10 ---- --- ----- -- 96 --- 02/05 08:44 97.8 92 112/63 18 96 --- 24 Hr Tmax: 99.5F (37.50c) at 02/05 19:46 Vital Signs are the last 5 in the past 48 hours. Physical Exam: Gen: NAD, awake, alert Pulm: symmetric chest rise, RICH CV: VSS, distal pulses palpated RUE: Inspection: splint c/d/i, no crepitus, compartments s/c, Sensation: sensation intact to light touch m/r/u nerve at hand, denies paresthesias Motor: +EPL, FDP, HI Vascular: 2+ Radial pulse, BCR all fingers <2 sec. Labs (Last four charted values) WBC 7.6 (FEBRUARY 05) 8.5 (FEBRUARY 04) Hgb L 8.6 (FEBRUARY 06) L 8.9 (FEBRUARY 05) L 10.8 ( FEBRUARY 04) Hct L 25.5 (FEBRUARY 06) L 26.2 (FEBRUARY 05) L 32.2 ( FEBRUARY 04) Plt 215 (FEBRUARY 05) 232 (FEBRUARY 04) Na 144 (FEBRUARY 05) 140 (FEBRUARY 04) K 3.9 (FEBRUARY 05) 3.9 (FEBRUARY 04) CO2 24 (FEBRUARY 05) L 22 (FEBRUARY 04) Cl H 110 (FEBRUARY 05) H 110 (FEBRUARY 04) Cr 0.68 (FEBRUARY 05) 0.67 (FEBRUARY 04) BUN 20 (FEBRUARY 05) 22 (FEBRUARY 04) Glucose Random H 151 (FEBRUARY 05) H 135 (FEBRUARY 04) Ca L 7.9 (FEBRUARY 05) L 8.1 (FEBRUARY 04) PT 13.3 (FEBRUARY 04) INR 1.01 (FEBRUARY 04) PTT 24.7 (FEBRUARY 04) Assessment: 82 yo F with R open humerus fx s/p I&D ORIF R humerus on 02/04/18 doing well post op. Plan: WB: NWB RUE Elevate RUE Diet per primary DVT per primary Keep splint c/d/i Antibiotics: peripop ancef completed todya Dispo: Ok for DC per ORS once clears PT and medically cleared. Please page [phone] with questions from 6:30 am - 7 pm. Please call [phone] with questions from 7 pm - 6:30 am or in emergencies. Bertha Terrell Orthopaedic Surgery PGY-1 [id number] Pager # [phone] Extracted from:Title: History and Physical Author: Greyson Garland MD Date: 02/04/18 1.Open humeral fracture Plan for surgical intervention with ORS today. Will resumeimmediate postopcare ; IVF, IV Abx per SCIP, pain control Maintain nonweightbearing to right upper extremity Lovenox for DVT prophylaxis Engage occupational therapy 2.Preoperative clearance Patient is going for procedure with moderate risk.She does not have history of medical issues that may interfere with surgery including CAD, CHF, TIA or stroke , diabetes mellitus. At baseline patient is very active; > 4 mets. EKG showed ......... HerRCRI score is 0 with 0.4% risk of perioperative cardiac event. Patient does not require further testing prior to surgery and may proceed with ORS as scheduled. 3.MS (multiple sclerosis) Stable 4. Hypertension Well controlled Lovenox Pending surgical intervention Plan of Care Plan of Care Date Source Instructions 08/24/[address] [facility] DI for Asthma -- Adult DI for Chronic Obstructive Pulmonary Disease DI for Muscle Weakness Instructions 08/24/[address] [facility] DI for Asthma -- Adult DI for Chronic Obstructive Pulmonary Disease DI for Muscle Weakness Social History Social History Date Source Social History TypeResponse 02/04/2018 [facility] Substance Abuse Use: None. IV drug use: No. Drug use interferes with work/home: No. Employment/School 1 Alcohol Never, Previous treatment: None. Alcohol use interferes with work or home: No. Drinks more than intended: No. Others hurt by drinking: No. Smoking Status Former smoker; Type: Cigarettes; Exposure to Tobacco Smoke None; Cigarette Smoking Last 365 Days No; Reg Smoking Cessation Counseling No entered on: 01/21/19 1may release medical information tp -Helio Odonnell, Son- Theodore Odonnell, Son- Rob Odonnell Social History TypeResponse 02/04/2018 [facility] Substance Abuse Use: None. IV drug use: No. Drug use interferes with work/home: No. Alcohol Never, Previous treatment: None. Alcohol use interferes with work or home: No. Drinks more than intended: No. Others hurt by drinking: No. Smoking Status Former smoker; Type: Cigarettes; Exposure to Tobacco Smoke None; Cigarette Smoking Last 365 Days No; Reg Smoking Cessation Counseling No entered on: 02/04/18 Social History TypeResponse 10/22/2015 [facility] Substance Abuse Use: None. IV drug use: No. Drug use interferes with work/home: No. Alcohol Never, Previous treatment: None. Alcohol use interferes with work or home: No. Drinks more than intended: No. Others hurt by drinking: No. Smoking Status Former smoker; Type: Cigarettes; Exposure to Tobacco Smoke None; Cigarette Smoking Last 365 Days No; Reg Smoking Cessation Counseling No Query Response Date Recorded Comment 09/14/[address] [facility] Alcohol Use? No August 23, 2017 6:54pm CD- Drugs? No August 23, 2017 6:54pm Query Response Start Date Stop Date Smoking Status Former smoker September 14, 1955 September 14, 1989 Family History Value Date Source Query Response Instance Date Recorded Comment 08/24/2017 JORGE ALBERTO Thomas - Job Medical History Hypertension Sister August 23, 2017 6:54pm Medical History Hypertension Mother August 23, 2017 6:54pm Medical History Hypertension June 28, 2015 10:29pm Advance Directives Order Name Results Value Date Source Advance Directives Advance Directives Advance Directive Response Recorded Date/Time 08/24/2017 JORGE ALBERTO [facility] - Does Patient Have Living Will Job Yes August 24, 2017 6:00am Durable Power of [employer] for Health Care Yes August 23, 2017 6:54pm Would you like additional information No August 23, 2017 6:54pm Functional Status No Data Provided for This Section
--- OUTSIDE RECORDS SUMMARY | 2019-03-27 17:47 | XMS REPORT | Summary of Care ---
:1935 Author Organization [facility] [place] Address [address] [place] [address]- Encounter HQ Encntr_mariangel(FIN) [id number] Date(s): 01/21/19 - 01/21/19 [facility] [address] [place] [address]- [phone] Discharge Disposition: Home or Self Care Attending Physician: Triston Shrestha MD Referring Physician: Triston Shrestha MD Vital Signs Most recent to oldest [Reference Range]: 1 Height 167.64 cm (01/21/19 1:35 PM) Blood Pressure [90-140/60-90 mmHg] 130/71 mmHg (01/21/19 1:35 PM) Respiratory Rate [14-20 BRMIN] 16 BRMIN (01/21/19 1:35 PM) Peripheral Pulse Rate [60-100 bpm] 76 bpm (01/21/19 1:35 PM) Weight 46.818 kg (01/21/19 1:35 PM) Body Mass Index 16.66 m2 (01/21/19 1:35 PM) Problem List Condition Effective Dates Status Health Status Informant Anemia(Confirmed) Resolved Anxiety(Confirmed) Resolved Asthma(Confirmed) Resolved Lesion of lateral popliteal nerve, 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) Depression(Confirmed) Resolved Exacerbation of multiple 01/23/17 Active sclerosis(Confirmed) HTN (hypertension)(Confirmed) Resolved Hyperthyroidism(Confirmed) Resolved 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, intractable, 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) MS (multiple sclerosis)(Confirmed) Resolved Multiple sclerosis(Confirmed) Active Seizure(Confirmed) Resolved Vertigo(Confirmed) Active Allergies, Adverse Reactions, Alerts Substance Reaction Severity Status sulfa drugs Active Augmentin Active Medications carvedilol 12.5 mg oral tablet 12.5 mg=1 tab, PO, BID, # 180 tab, 0 Refill(s) Start Date: 01/21/19 Status: OrderedCymbalta 60 mg oral delayed release capsule 60 mg=1 cap, PO, BID, 0 Refill(s) Start Date: 01/21/19 Status: OrderedNorvasc 5 mg oral tablet 5 mg=1 tab, PO, Daily, # 30 tab, 0 Refill(s) Start Date: 01/21/19 Status: Ordered Results No data available for this section Immunizations No data available for this section Procedures Procedure Date Related Diagnosis Body Site Status Appendectomy Completed Arthroscopy of knee Completed Elbow maneuver Completed Hysterectomy Completed Repair of shoulder Completed Social History Social History Type Response Substance Abuse Use: None. IV drug use: No. Drug use interferes with work/ home: No. Employment/School 1 Alcohol Never, Previous treatment: None. Alcohol use interferes with work or home: No. Drinks more than intended: No. Others hurt by drinking: No. Smoking Status Former smoker; Type: Cigarettes; Exposure to Tobacco Smoke None ; Cigarette Smoking Last 365 Days No; Reg Smoking Cessation Counseling No entered on: 01/21/19 1may release medical information tp -Helio Phelps, Son- Theodore Phelps, Son- Rob Blas Assessment and Plan No data available for this section
--- OUTSIDE RECORDS SUMMARY | 2019-03-27 17:47 | XMS REPORT | Summary of Care ---
:1935 Author Organization [facility] Neurology [place] Address [address] [place] [address]- Encounter HQ Encntr_alias(FIN) [id number] Date(s): 08/20/18 - 08/21/18 [facility] [address] [place] [address]- [phone] Vital Signs No data available for this section Problem List Condition Effective Dates Status Health [...] Status sulfa drugs Active Augmentin Active Medications Keppra 750 mg oral tablet 750 mg=1 tab, PO, BID, X 90 day, # 180 tab, 1 Refill(s), Pharmacy: [place] [id number] Start Date: 09/16/18 Stop Date: 11/26/18 Status: Completed Results No data available for this section [...]
--- OUTSIDE RECORDS SUMMARY | 2019-03-27 17:47 | XMS REPORT | Summary of Care ---
:1935 Author Organization [facility] Neurology [place] Address [address] [place] [address]- Encounter HQ Encntr_alias(FIN) [id number] Date(s): 02/09/19 - 02/09/19 [facility] [address] [place] [address]- [phone] Attending Physician: Triston Shrestha MD Referring Physician: Triston Shrestha MD Vital Signs No data available for this [...] Status sulfa drugs Active Augmentin Active Medications No data available for this section Results No data available for this section [...]
[2019-03-27 19:21] LABS: Absolute Lymphocytes (CBC) 1.4 K/uL (0.7-4.9); Basophils % 1.2 % (0-1.3); Eosinophils % 3.4 % (0-4.4); Hematocrit 34.7 % (36.0-45.0); Lymphocytes % 22.5 % (15.3-44.8); MPV 8.1 fL (7.6-11.3); Monocytes % 9.9 % (3.3-12.3); RBC Red Blood Cell Count 3.62 M/uL (3.86-4.86)
[2019-03-27 19:42] LABS: ALT/SGPT 16 U/L (12-78); AST/SGOT 24 U/L (15-37); Albumin 3.3 g/dL (3.4-5.0); Alkaline Phosphatase 87 U/L (45-117); BUN Blood Urea Nitrogen 16 mg/dL (7-18); Bicarbonate 25 mmol/L (21-32); Bilirubin Total 0.4 mg/dL (0.2-1.0); Glucose Level 89 mg/dL (74-106); Protein, Total 6.9 g/dL (6.4-8.2); Sodium Level 142 mmol/L (136-145)
--- NOTE | 2019-03-27 20:13 | RAD REPORT ---
EXAM DESCRIPTION: Laquita Pa And Lat (2 Views)03/27/2019 7:43 pm CLINICAL HISTORY: Cough COMPARISON: September 2018 FINDINGS: Lungs appear clear of acute infiltrate Heart is mildly enlarged. Ascending aorta is tortuous/ectatic without significant change IMPRESSION: No acute abnormalities displayed
[2019-03-27] MEDS ORDERED: CEFTRIAXONE/SWI 1gm 1 GM/10 ML SYR ONE (21:01)
--- NOTE | 2019-03-27 21:03 | ER ---
Nurse's Notes [facility] Name: Rosina Odonnell Age: 83 yrs Sex: Female : 1935 Arrival Date: 03/27/2019 Time: 17:42 Bed 5 Private MD: Casey Kohler C Diagnosis: Acute upper respiratory infection, unspecified Presentation: 03/27 17:47 Presenting complaint: Patient states: I have had a cough since yesterday with green la1 sputum and slept a lot today. Transition of care: patient was not received from another setting of care. Onset of symptoms was March 27, 2019. Risk Assessment: Do you want to hurt yourself or someone else? Patient reports no desire to harm self or others. Initial Sepsis Screen: Does the patient meet any 2 criteria? No. Patient's initial sepsis screen is negative. Does the patient have a suspected source of infection? No. Patient's initial sepsis screen is negative. Care prior to arrival: None. 17:47 Method Of Arrival: Wheelchair la1 17:47 Acuity: [place] 3 la1 Historical: - Allergies: 17:48 Augmentin ES-600; la1 17:48 Sulfa (Sulfonamide Antibiotics); la1 - PMHx: 17:48 Asthma; Depression; Hypertension; MS; osteoarthritis; Seizures; la1 - Immunization history:: Adult Immunizations up to date. - Social history:: Smoking status: Patient/guardian denies using tobacco. - Ebola Screening: : No symptoms or risks identified at this time. Screenin:30 Abuse screen: Denies threats or abuse. Denies injuries from another. Nutritional ss screening: No deficits noted. Tuberculosis screening: Never had TB. Fall Risk No fall in past 12 months (0 pts). Secondary diagnosis (15 points) seizures, MS. IV access (20 points). Ambulatory Aid- None/Bed Rest/Nurse Assist (0 pts). Gait- Normal/Bed Rest/Wheelchair (0 pts) Mental Status- Oriented to own ability (0 pts). Assessment: 18:30 General: Appears in no apparent distress. comfortable, Behavior is calm, cooperative, ss Denies fever, feeling ill, fatigue, chills. Pain: Is chronic. Neuro: Level of Consciousness is awake, alert, obeys commands, Oriented to person, place, time, situation, Speech is normal, Facial symmetry appears normal, Pupils are PERRLA. Cardiovascular: Capillary refill < 3 seconds is brisk in bilateral fingers. Respiratory: Airway is patent Respiratory effort is even, unlabored, Respiratory pattern is regular, symmetrical. Respiratory: Reports shortness of breath at rest on exertion since x 2 days Breath sounds are clear bilaterally. Respiratory: Reports cough that is x 2 days. Productive, green sputum since last night. GI: Patient currently denies abdominal pain, diarrhea, nausea, vomiting. : No signs and/or symptoms were reported regarding the genitourinary system. EENT: Nares are clear Oral mucosa is moist. Derm: Skin is intact, is healthy with good turgor, Skin is dry, Skin is pink, warm \T\ dry. normal. Musculoskeletal: Circulation, motion, and sensation intact. Range of motion: intact in all extremities, Swelling absent. 19:45 Reassessment: Patient appears in no apparent distress at this time. Patient and/or lp1 family updated on plan of care and expected duration. Pain level reassessed. Patient is alert, oriented x 3, equal unlabored respirations, skin warm/dry/pink. Patient aware of pending lab results. 19:45 Respiratory: Reports cough that is productive, Respiratory effort is even, unlabored, lp1 Breath sounds are clear bilaterally. 21:00 Reassessment: Patient appears in no apparent distress at this time. Patient is alert, lp1 oriented x 3, equal unlabored respirations, skin warm/dry/pink. Patient states feeling better. Vital Signs: 17:48 BP 156 / 75; Pulse 74; Resp 16; Temp 97.4; Pulse Ox 97% on R/A; Weight 48.08 kg; Height la1 5 ft. 6 in. (167.64 cm); 19:30 BP 144 / 88; Pulse 77; Resp 18; Pulse Ox 98% on R/A; lp1 21:00 BP 145 / 75; Pulse 75; Resp 18; Pulse Ox 100% on R/A; Pain 0/10; lp1 17:48 Body Mass Index 17.11 (48.08 kg, 167.64 cm) la1 ED Course: 17:42 Patient arrived in ED. as 17:43 Casey Kohler MD is Private Physician. as 17:47 Triage completed. la1 17:48 Arm band placed on left wrist. la1 17:52 Smirch, Stephania, RN is Primary Nurse. ss 17:52 Mikhail Graves PA is PHCP. [facility] 17:52 Emil Pham MD is Attending Physician. [facility] 18:30 Patient has correct armband on for positive identification. Bed in low position. Call ss light in reach. 18:30 Patient maintains SpO2 saturation greater than 95% on room air. 19:12 Initial lab(s) drawn, by me, sent to lab. First set of blood cultures drawn. Inserted ms saline lock: 20 gauge in left forearm, using aseptic technique. Blood collected. 19:43 Chest Pa And Lat (2 Views) XRAY In Process Unspecified. EDMS 21:01 Casey Kohler MD is Referral Physician. [facility] 21:20 No provider procedures requiring assistance completed. IV discontinued, No lp1 redness/swelling at site. Pressure dressing applied. Administered Medications: 21:05 Drug: Rocephin 1 grams Route: IV; Rate: calculated rate; Site: left forearm; jd3 21:30 Follow up: IV Status: Completed infusion; IV Intake: 10ml lp1 Intake: 21:30 IV: 10ml; Total: 10ml. lp1 Outcome: 21:01 Discharge ordered by MD. [facility] 21:25 Discharged to home via wheelchair, with significant other. lp1 21:25 Condition: good 21:25 Discharge instructions given to patient, Instructed on discharge instructions, follow up and referral plans. medication usage, Demonstrated understanding of instructions, follow-up care, medications, Prescriptions given X 1. 21:42 Patient left the ED. lp1 Signatures: Dispatcher [employer] EDLA Mikhail Graves PA PA jmm Martinez, Amelia as Solis, Maria ms Stephania Phillips, RN RN ss Carola Gutiérrez RN RN lp1 Dandre Reid RN RN la1 Michael Torres RN RN jd3 Corrections: (The following items were deleted from the chart) 21:43 19:45 Reassessment: Patient appears in no apparent distress at this time. Patient lp1 and/or family updated on plan of care and expected duration. Pain level reassessed. Patient is alert, oriented x 3, equal unlabored respirations, skin warm/dry/pink. Patient aware of pending lab results lp1
--- NOTE | 2019-03-27 21:03 | EDPHYS ---
Physician Documentation [facility] Name: Rosina Odonnell Age: 83 yrs Sex: Female : 1935 Arrival Date: 03/27/2019 Time: 17:42 Bed 5 Private MD: Casey Kohler C ED Physician Emil Pham HPI: 03/27 18:03 This 83 yrs old Female presents to ER via Wheelchair with complaints of Chest jmm Congestion. 18:03 The patient or guardian reports cough. jmm 18:03 The patient or guardian reports cough, with productive sputum, that is green. Onset: jmm The symptoms/episode began/occurred gradually, 1 day(s) ago. Modifying factors: The symptoms are alleviated by nothing. the symptoms are aggravated by nothing. Associated signs and symptoms: Pertinent negatives: fever, sore throat. This is an 83 year old female with a history of asthma, depression, htn, ms, oa, seizures that presents to the ED with complaints of productive cough beginning yesterday with increased fatigue. Denies fever, denies chills. . Historical: - Allergies: 17:48 Augmentin ES-600; la1 17:48 Sulfa (Sulfonamide Antibiotics); la1 - PMHx: 17:48 Asthma; Depression; Hypertension; MS; osteoarthritis; Seizures; la1 - Immunization history:: Adult Immunizations up to date. - Social history:: Smoking status: Patient/guardian denies using tobacco. - Ebola Screening: : No symptoms or risks identified at this time. ROS: 18:03 Constitutional: Negative for fever, chills, and weight loss, Cardiovascular: Negative jmm for chest pain, palpitations, and edema. 18:03 Abdomen/GI: Negative for abdominal pain, nausea, vomiting, diarrhea, and constipation, Back: Negative for injury and pain, MS/Extremity: Negative for injury and deformity, Neuro: Negative for headache, weakness, numbness, tingling, and seizure. 18:03 Respiratory: Positive for cough. 18:03 All other systems are negative. Exam: 18:03 Constitutional: This is a well developed, well nourished patient who is awake, alert, jmm and in no acute distress. Head/Face: atraumatic. Eyes: EOMI, no conjunctival erythema appreciated 18:03 Neck: Trachea midline, Supple Chest/axilla: Normal chest wall appearance and motion. 18:03 Abdomen/GI: Non distended, soft Back: Normal ROM Skin: General appearance color normal MS/ Extremity: Moves all extremities, no obvious deformities appreciated, no edema noted to the lower extremities Neuro: Awake and alert, normal gait Psych: Behavior is normal, Mood is normal, Patient is cooperative and pleasant 18:03 ENT: Posterior pharynx: is normal. 18:03 Cardiovascular: Rate: normal, Rhythm: regular. 18:03 Respiratory: the patient does not display signs of respiratory distress, Respirations: normal, Breath sounds: are clear throughout. Vital Signs: 17:48 BP 156 / 75; Pulse 74; Resp 16; Temp 97.4; Pulse Ox 97% on R/A; Weight 48.08 kg; Height la1 5 ft. 6 in. (167.64 cm); 19:30 BP 144 / 88; Pulse 77; Resp 18; Pulse Ox 98% on R/A; lp1 21:00 BP 145 / 75; Pulse 75; Resp 18; Pulse Ox 100% on R/A; Pain 0/10; lp1 17:48 Body Mass Index 17.11 (48.08 kg, 167.64 cm) la1 MDM: 18:03 Patient medically screened. [facility] 20:59 Data reviewed: vital signs, nurses notes. Counseling: I had a detailed discussion with elsy the patient and/or guardian regarding: the historical points, exam findings, and any diagnostic results supporting the discharge/admit diagnosis, lab results, radiology results, the need for outpatient follow up, to return to the emergency department if symptoms worsen or persist or if there are any questions or concerns that arise at home. ED course: patient is alert and non toxic in appearance in the ED. symptoms appear consistent with bronchitis. due to history of pneumonia patient is given strict return precautions. patient understood and agrees with the plan of care. . 03/27 18:04 Order name: CBC with Diff; Complete Time: 19:29 [facility] 03/27 18:04 Order name: CMP; Complete Time: 19:52 [facility] 03/27 18:04 Order name: Procalcitonin; Complete Time: 20:15 [facility] 03/27 18:04 Order name: Lactate; Complete Time: 19:52 [facility] 03/27 18:04 Order name: Blood Culture Adult (2) [facility] 03/27 18:04 Order name: Flu; Complete Time: 19:52 [facility] 03/27 18:04 Order name: Saline Lock; Complete Time: 19:15 [facility] 03/27 18:04 Order name: Chest Pa And Lat (2 Views) XRAY; Complete Time: 20:14 [facility] 03/27 20:36 Order name: EKG - Nurse/Tech; Complete Time: 20:44 [facility] Administered Medications: 21:05 Drug: Rocephin 1 grams Route: IV; Rate: calculated rate; Site: left forearm; jd3 21:30 Follow up: IV Status: Completed infusion; IV Intake: 10ml lp1 Disposition: 03/27/19 21:01 Discharged to Home. Impression: Acute upper respiratory infection, unspecified. - Condition is Stable. - Discharge Instructions: Upper Respiratory Infection, Adult. - Prescriptions for cefdinir 300 mg Oral capsule - take 1 capsule by ORAL route every 12 hours; 20 capsule. - Medication Reconciliation Form, Thank You Letter, Antibiotic Education, Prescription Opioid Use form. - Follow up: Casey Kohler MD; When: 2 - 3 days; Reason: Recheck today's complaints, Continuance of care, Re-evaluation by your physician. Addendum: 03/30/2019 15:57 Co-signature as Attending Physician, Emil Pham MD. r n Signatures: Dispatcher [employer] EDMS Mikhail Graves PA PA [facility] Emil Pham MD MD rn Pena, Laura, RN RN lp1 Dandre Reid RN RN la1 Michael Torres RN RN jd3 Corrections: (The following items were deleted from the chart) 03/27 21:42 21:01 03/27/2019 21:01 Discharged to Home. Impression: Acute upper respiratory lp1 infection, unspecified. Condition is Stable. Forms are Medication Reconciliation Form, Thank You Letter, Antibiotic Education, Prescription Opioid Use. Follow up: Casey Kohler; When: 2 - 3 days; Reason: Recheck today's complaints, Continuance of care, Re-evaluation by your physician. [facility]
[2019-03-27 22:24] VITALS: TEMP 97.4
[2019-03-27 22:27] VITALS: BP 145/75; O2SAT 100
--- NOTE | 2019-03-28 10:53 | EKG ---
Test Date: 2019-03-27 Test Time: 20:44:24 Assistant Child Care Teacher: ZURDOT MEASUREMENT RESULTS: Intervals: Rate: 70 MI: 178 QRSD: 94 QT: 428 QTc: 462 [place]: P: 67 MI: 178 QRS: 2 T: 66 INTERPRETIVE STATEMENTS: Normal sinus rhythm Normal ECG Compared to ECG 08/23/2017 17:33:55 Sinus arrhythmia no longer present Electronically Signed On 03-28-19 10:52:35 CDT by Jp Marcus
== END 2019-03-27 21:42 | disposition home or self-care (01) ==
LOC: ER 17:39
DX: J06.9 Acute upper respiratory infection, unspecified (principal); Z88.2 Allergy status to sulfonamides; Z88.1 Allergy status to other antibiotic agents
CPT/HCPCS: 96365; 93005; 87040 ×2; 85025; 36415; 83605; 80053; 84145; 87804 ×2; 71046; 99284; J0696

== ENCOUNTER 2019-04-25 12:28 | Emergency (ER) | payer OTHER ==
--- OUTSIDE RECORDS SUMMARY | 2019-04-25 12:35 | XMS REPORT | Continuity of Care Document ---
:1935 Author Organization [employer] [facility] Care Team Providers Name Role Phone [employer] [facility] Unavailable Unavailable Problems Problem Status Onset Classification Date Comments Source Date Reported OPEN RIGHT HUMERUS Active [address] Asthma exacerbation Active Finding 08/24/[address] [facility] Weakness Active Finding 08/24/[address] [facility] Abnormal renal Active Finding 08/24/[address] [facility] function 017 [facility] Abnormal kidney Active Finding 08/24/[address] [facility] function [facility]17 [facility] Exacerbation of Active Finding 08/24/[address] [facility] asthma 017 [facility] Exacerbation of Resolved Problem 04/08/2019 [facility] multiple sclerosis 017 [facility] Lesion of lateral Active Problem 04/08/2019 [facility] popliteal nerve[facility] limb [facility] Displaced fracture Active Finding 08/24/[address] [facility] [address] of right patella 017 [facility] Right knee pain Active Finding 08/24/[address] [facility] [facility] GI BLEED, ANEMIA Active [place] 016 Weakness Active Finding 08/24/[address] [facility] generalized 016 [facility] Dehydration Active Finding 08/24/[address] [facility] 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 left 015 [facility] Anemia Resolved Problem 04/08/2019 [facility] Anxiety Resolved Problem 04/08/2019 [facility] Asthma Resolved Problem 04/08/2019 [facility] Depression Resolved Problem 04/08/2019 [facility] HTN (Confirmed) Resolved Problem 04/08/2019 [facility] Hyperthyroidism Resolved Problem 04/08/2019 [facility] MS (Confirmed) Resolved Problem 04/08/2019 [facility] Seizure Resolved Problem 04/08/2019 [facility] Vertigo Active Problem 04/08/2019 [facility] Multiple sclerosis Active Problem 04/08/2019 [facility] Multiple sclerosis Inactive Finding 08/24/2017 [facility] GASTROINTESTINAL Active [facility] HEMORRHAGE, UNSPECIFIED ANEMIA, UNSPECIFIED Active [facility] UNSP FRACTURE OF Active [facility] SHAFT OF HUMERUS, Medical [facility] Medications Medication Details Route Status Patient Ordering Order Source Instructions Provider Date 12 HR 1 tab, PO, PRN, Active 07/12/ [facility] Acetaminophen 0 Refill(s) 2019 Neuro 325 MG / Oxycodone Hydrochloride 7.5 MG Extended Release Oral Tablet duloxetine 60 MG 60 mg=1 cap, Active 01/21/ [facility] Enteric Coated PO, BID, 0 2019 [...] day, # 180 tab, 1 Refill(s), Pharmacy: [place] [address] Levetiracetam 750 mg=1 tab, Active [place] 750 MG Oral PO, BID, 0 2018 Medical Tablet [Keppra] Refill(s) [place] enoxaparin 40 40 mg=0.4 mL, Active [facility] mg/0.4 mL SUB-Q, 2018 Medical subcutaneous [id number], X 21 Center solution day, # 8 mL, 0 Refill(s), Pharmacy: [place] [address] Ergocalciferol 50,000 Active [facility] [address] UNT Oral IntlUnit=1 cap, 2018 Medical Capsule PO, Q7D, # 5 [place] cap, 0 Refill(s), Pharmacy: [place] [address] Calcium 1 tab, CHEW, Active [facility] Carbonate 1250 BID, # 60 tab, 2018 Medical MG / 0 Refill(s), [place] Cholecalciferol Pharmacy: 400 UNT Chewable [facility] Tablet [place] [address] oxyCODONE 5 mg 10 mg, 2 tab, Inactive [facility] oral tablet Route: PO, Drug 2017 Medical form: TAB, Center ONCE, Start date: 02/06/18 10:42:00 CDT, Stop date: 02/06/18 10:42:00 CDTNotes: (Same as: Roxicodone) Oxycodone 10 mg, 2 tab, Inactive [facility] Hydrochloride 5 Route: PO, Drug 2018 Medical MG Oral Tablet form: TAB, Center ONCE, Dosing Weight 47.273, kg, Start date: 02/05/18 19:32:00 CDT, Stop date: 02/05/18 19:32:00 CDTNotes: (Same as: Roxicodone) Calcium 1 tab, Route: No Longer [facility] Carbonate 1250 CHEW, Drug Active 2018 Medical MG / Form: TAB, Center Cholecalciferol Dosing Weight 400 UNT Chewable 47.273, kg, Tablet BID, Start date: 02/05/18 9:00:00 CDT, Duration: 30 day, Stop date: 03/06/18 17:00:00 CDTNotes: (calcium carbonate-vit D 500mg-400unit TAB) Same as: Oyster-D, OsCal-D Ergocalciferol 50,000 No Longer [facility] [address] UNT Oral IntlUnit, 1 Active 2018 Medical Capsule cap, Route: PO, Center Drug form: CAP, Q7D, Dosing Weight 47.273, kg, Start date: 02/05/18 7:00:00 CDT, Duration: 30 day, Stop date: 03/05/18 9:00:00 CDTNotes: (Same as: Vitamin D) "Do Not Crush" Thyroxine 25 microgram, 1 No Longer [facility] tab, Route: PO, Active 2017 Medical Drug form: TAB, [place] [id number], Dosing Weight 47.001, kg, Start date: 02/05/18 6:30:00 CDT, Duration: 30 day, Stop date: 03/06/18 6:30:00 CDTNotes: Take 1 hour before or 2 hours after meal; Enteral feeds may interefere with the absorption of this medication. (Same as:Levothroid) Oxycodone 10 mg, 2 tab, Inactive [facility] Hydrochloride 5 Route: PO, Drug 2018 Medical MG Oral Tablet form: TAB, Center ONCE, Dosing Weight 47.273, kg, PRN Pain Score 7-10, Priority: NOW, Start date: 02/05/18 5:37:00 CDTNotes: (Same as: Roxicodone) Cefazolin 2 gm, 20 mL, Inactive [facility] Route: IVP, 2017 Medical Drug form: Center SOLN, Q8H, Dosing Weight 51.818, kg, Start date: 02/05/18 0:00:00 CDT, Duration: 3 doses or times, Stop date: 02/05/18 16:00:00 CDT, ABX Indication: Surgical ProphylaxisNote s: (Same as Ancef) sugammadex 200 mg, 2 mL, No Longer [facility] Route: IV, Drug Active 2017 Medical form: SOLN, Center ONCALL, Start date: 02/04/18 21:43:00 CDT, Duration: 1 doses or times, Stop date: 02/04/18 21:44:00 CDTNotes: (Same as: Bridion) Amitriptyline 25 mg, 1 tab, No Longer [facility] Route: PO, Drug Active 2017 Medical form: TAB, Center Bedtime, Dosing Weight 47.001, kg, Start date: 02/04/18 21:00:00 CDT, Duration: 30 day, Stop date: 03/05/18 21:00:00 CDTNotes: (Same as: Elavil) Singulair 10 mg, 1 tab, No Longer [facility] Route: PO, Drug Active 2017 Medical form: TAB, Center Bedtime, Dosing Weight 47.001, kg, Start date: 02/04/18 21:00:00 CDT, Duration: 30 day, Stop date: 03/05/18 21:00:00 CDTNotes: (Same as:Singulair) Ondansetron 4 mg, Route: Inactive [facility] IVP, ONCE, 2017 Medical Dosing Weight Center 51.818, kg, PRN Nausea & Vomiting, Start date: 02/04/18 19:10:00 CDT Hydralazine 10 mg, Route: Inactive 02/05[facility] IVP, Q20Min, 2017 Medical Dosing Weight Center 51.818, kg, PRN Elevated BP, Start date: 02/04/18 19:10:00 CDT, Duration: 2 doses or times, Stop date: Limited # of times Labetalol 10 mg, Route: Inactive 02/05[facility] IVP, Q5Min, 2018 Medical Dosing Weight Center 51.818, kg, PRN Elevated BP, Start date: 02/04/18 19:10:00 CDT, Duration: 5 doses or times, Stop date: Limited # of times Flumazenil 0.2 mg, Route: Inactive 02/05[facility] IVP, PRN, 2018 Medical Dosing Weight Center 51.818, kg, PRN Benzodiazepine Reversal, Initial dose, Start date: 02/04/18 19:10:00 CDT, Duration: 30 day, Stop date: 03/06/18 19:09:00 CDT Naloxone 0.4 mg, Route: Inactive 02/05[facility] IVP, Q2MIN, 2018 Medical Dosing Weight Center 51.818, kg, PRN Narcotic Reversal, Start date: 02/04/18 19:10:00 CDT, Duration: 8 doses or times, Stop date: Limited # of times Hydromorphone 0.5 mg, Route: Inactive 02/05[facility] IVP, Q5Min, 2018 Medical Dosing Weight Center 51.818, kg, PRN Pain Score 7-10, Start date: 02/04/18 19:10:00 CDT, Duration: 4 doses or times, Stop date: Limited # of times Oxycodone 5 mg, Route: Inactive 02/05[facility] PO, Drug form: 2018 Medical TAB, Q4H, Center Dosing Weight 51.818, kg, PRN Pain Score 4-6, Start date: 02/04/18 19:10:00 CDT, Duration: 30 day, Stop date: 03/06/18 19:09:00 CDT ondansetron Route: IV, Drug Inactive [facility] (ANES) form: INJ, 2018 Medical ONCE, Stop Center date: 02/04/18 18:58:00 CDT albuterol (ANES) Route: Inactive 02/04[facility] INHALATION, 2018 Medical Drug form: Center AERO/A, ONCE, Stop date: 02/04/18 18:16:00 CDT acetaminophen Route: IV, Drug Inactive [facility] (ANES) 10 mg form: INJ, 2018 Medical Start date: [place] 02/04/18 18:00:00 CDT, Stop date: 02/04/18 19:00:00 CDT hydromorphone Route: IV, Drug Inactive [place] (ANES) form: INJ, 2017 Medical ONCE, Stop Center date: 02/04/18 17:51:00 CDT dexamethasone Route: IV, Drug Inactive [place] (ANES) form: INJ, 2017 Medical ONCE, Stop Center date: 02/04/18 17:51:00 CDT rocuronium Route: IV, Drug Inactive [place] (ANES) form: INJ, 2017 Medical ONCE, Stop Center date: 02/04/18 17:20:00 CDT fentaNYL (ANES) Route: IV, Drug Inactive [facility] form: INJ, 2017 Medical ONCE, Stop Center date: 02/04/18 17:10:00 CDT propofol (ANES) Route: IV, Drug Inactive [facility] form: INJ, 2017 Medical ONCE, Stop Center date: 02/04/18 17:10:00 CDT lidocaine (ANES) Route: IV, Drug Inactive [facility] form: INJ, 2017 Medical ONCE, Stop Center date: 02/04/18 17:10:00 CDT ondansetron Route: IV, Drug Inactive [facility] (ANES) form: INJ, 2017 Medical ONCE, Stop Center date: 02/04/18 17:10:00 CDT ceFAZolin (ANES) Route: IV, Drug Inactive [facility] form: INJ, 2017 Medical ONCE, Stop Center date: 02/04/18 17:05:00 CDT phenylephrine Route: IV, Drug Inactive [facility] (ANES) form: INJ, 2017 Medical ONCE, Stop Center date: 02/04/18 17:05:00 CDT ePHEDrine (ANES) Route: IV, Drug Inactive [facility] form: INJ, 2017 Medical ONCE, Stop Center date: 02/04/18 17:05:00 CDT Lactated Ringers Route: IV, Inactive [facility] Injection IV Total Volume: 2017 Medical (ANES) 1000 mL 1,000, Start Center date: 02/04/18 15:35:00 CDT, Stop date: 02/04/18 16:35:00 CDT Lovenox 40 mg, 0.4 mL, No Longer [facility] Route: SUB-Q, Active 2017 Medical Drug form: INJ, [place] [id number], Dosing Weight 51.818, kg, Start date: 02/04/18 14:00:00 CDT, Duration: 30 day, Stop date: 03/05/18 14:00:00 CDTNotes: (Same as: Lovenox) Ancef 2 gm, 20 mL, Inactive [facility] Route: IVPB, 2017 Medical Drug form: [place] SOLN, [id number], Dosing Weight 51.818, kg, Start date: 02/04/18 11:00:00 CDT, Duration: 1 day, Stop date: 02/05/18 4:00:00 CDT, ABX Indication: Surgical ProphylaxisNote s: (Same as Ancef) Levetiracetam 750 mg, 1 tab, No Longer [facility] 750 MG Oral Route: PO, Drug Active 2017 Medical Tablet [Keppra] form: TAB, BID, [place] Dosing Weight 47.001, kg, Start date: 02/04/18 9:00:00 CDT, Duration: 30 day, Stop date: 03/05/18 17:00:00 CDTNotes: Same as Keppra Advair Diskus 1 puff, Route: Inactive [facility] 500 mcg-50 mcg INHALATION, 2017 Medical inhalation Drug Form: [place] powder AERO, Dosing Weight 47.001, kg, BID, Start date: 02/04/18 9:00:00 CDT, Duration: 30 day, Stop date: 03/05/18 17:00:00 CDT Cymbalta 30 mg, Route: Inactive [facility] PO, Drug form: 2018 Medical DRC, BID, Center Dosing Weight 47.001, kg, Start date: 02/04/18 9:00:00 CDT, Duration: 30 day, Stop date: 03/05/18 17:00:00 CDT budesonide-formo 2 puff, Route: No Longer [facility] terol INHALER, Drug Active 2017 Medical Form: AERO/A, Center RBID, Start date: 02/04/18 8:00:00 CDT, Duration: 30 day, Stop date: 03/05/18 20:00:00 CDTNotes: [address] ,[address] Inhale 2 puff(s) by mouth 2 times a day Carlos Chiur_ Don't use after_ Tramadol 50 mg, 1 tab, No Longer [place] Route: PO, Drug Active 2017 Medical form: TAB, Center Q6Hnow, Dosing Weight 47.001, kg, Start date: 02/04/18 6:00:00 CDT, Duration: 30 day, Stop date: 03/06/18 0:00:00 CDTNotes: Not to exceed 400mg/day. (Same As: Ultram) Acetaminophen 1 tab, Route: No Longer [place] 325 MG / PO, Drug Form: Active 2018 Medical Hydrocodone TAB, Dosing Center Bitartrate 5 MG Weight 47.001, Oral Tablet kg, Q6H, PRN [[place] 5/325] Pain Score 4-6, Start date: 02/04/18 5:55:00 CDT, Duration: 30 day, Stop date: 03/06/18 5:54:00 CDTNotes: (Same as: [place] 325/5) Do not exceed 4gm/day of acetaminophen. Ondansetron 4 mg, 2 mL, No Longer [place] Route: IVP, Active 2017 Medical Drug form: INJ, Center Q6H, Dosing Weight 47.001, kg, PRN Nausea & Vomiting, Start date: 02/04/18 5:54:00 CDT, Duration: 30 day, Stop date: 03/06/18 5:53:00 CDTNotes: (Same as: Ed) MEDICATION WASTE Product Size: 4 mg Product Wasted: ___ mg Acetaminophen 2 tab, Route: No Longer [place] 325 MG / PO, Drug Form: Active 2018 Medical Hydrocodone TAB, Dosing Center Bitartrate 5 MG Weight 47.001, Oral Tablet kg, Q4H, PRN Pain Score 7-10, Start date: 02/04/18 5:54:00 CDT, Duration: 30 day, Stop date: 03/06/18 5:53:00 CDTNotes: (Same as: [place] 325/5) Do not exceed 4gm/day of acetaminophen. Acetaminophen 650 mg, 2 tab, No Longer [facility] Route: PO, Drug Active 2017 Medical form: TAB, Q8H, Center Dosing Weight 47.001, kg, PRN Pain 1-3/Temp > 100.4 F, Start date: 02/04/18 5:54:00 CDT, Duration: 30 day, Stop date: 03/06/18 5:53:00 CDTNotes: Do not exceed 4 gm/day. (Same as: Tylenol) Dilaudid 1 mg, Route: Inactive [facility] IVP, ONCE, 2018 Medical Dosing Weight Center 47.001, kg, Priority: STAT, Start date: 02/04/18 5:26:00 CDT, Stop date: 02/04/18 5:26:00 CDT Fentanyl 50 microgram, Inactive [facility] Route: IVP, 2017 Medical ONCE, Dosing Center Weight 47.001, kg, Priority: STAT, Start date: 02/04/18 5:21:00 CDT, Stop date: 02/04/18 5:21:00 CDT Fentanyl 50 microgram, Inactive [facility] Route: IVP, 2018 Medical ONCE, Dosing Center Weight 47.001, kg, Priority: STAT, Start date: 02/04/18 4:57:00 CDT, Stop date: 02/04/18 4:57:00 CDT Ancef 1 gm, Route: Inactive [facility] IVPB, Drug 2017 Medical form: PDR/INJ, Center ONCE, Dosing Weight 47.001, kg, Priority: STAT, Start date: 02/04/18 3:51:00 CDT, Stop date: 02/04/18 3:51:00 CDT, ABX Indication: Open Wound ProphylaxisNote s: (Same As: Ancef, Kefzol) MEDICATION WASTE Product Size: 1000 mg Product Wasted: ___ mg Fentanyl 50 microgram, 1 Inactive [facility] mL, Route: IVP, 2018 Medical Drug form: INJ, Center ONCE, Dosing Weight 47.001, kg, Priority: STAT, Start date: 02/04/18 3:49:00 CDT, Stop date: 02/04/18 3:49:00 CDTNotes: (Same as: Sublimaze) Preservative free. Fluconazole DAILY Active [facility] 2017 [facility] Levetiracetam AT BEDTIME Active [facility] 2017 [facility] Levetiracetam DAILY WITH Active [facility] 2017 [facility] ferrous sulfate 325 mg=1 tab, Active 325 mg oral PO, Daily, # 30 2016 [facility] enteric coated tab, 0 tablet Refill(s) dexlansoprazole 60 mg=1 cap, Active 60 MG Enteric PO, Daily, # 30 2015 [facility] Coated Capsule cap, 0 [Dexilant] Refill(s) Amino Acids 2,000 mL, Rate: Inactive 4.25% with 5% 83 ml/hr, 2015 [facility] Dextrose and Infuse over: Electrolytes 24.2 hr, Route: (Clinimix E IV, Dosing Sulfite-Free) Weight 47.001 2,000 mL + kg, Total multivitam Volume: 2,011.3, Start date: 10/26/15 22:00:00, Duration: 30 day, Stop date: 11/25/15 21:59:00Notes: Same as: ClinimixE Protonix 40 mg, Route: No Longer IVP, Drug form: Active 2015 [facility] INJ, BID, Dosing Weight 47.001, kg, Start date: 10/26/15 17:00:00, Duration: 30 day, Stop date: 11/25/15 9:00:00Notes: For IV push reconstitute with 10 ml 0.9% sodium chloride and push over 2 minutes. (Same as: Protonix) Amino Acids 1,000 mL, Rate: Inactive 4.25% with 5% 83 ml/hr, 2015 [facility] Dextrose and Infuse over: Electrolytes 12.2 hr, Route: (Clinimix E IV, Dosing Sulfite-Free) Weight 47.001 1,000 mL + kg, Total multivitam Volume: 1,011.3, Start date: 10/26/15 12:00:00, Duration: 10 hr, Stop date: 10/26/15 21:59:00Notes: Same as: ClinimixE Sodium Chloride 250 mL, Rate: No Longer 0.9% (titrate) train caller for use Active 2015 [facility] 250 mL with blood product administration, Dosing Weight 47.001, kg, Route: IV, Total Volume: 250, Start Date: 10/25/15 16:16:00, Duration: 30 day, Stop date: 11/24/15 16:15:00, Replace Every: 24 hr Sodium Chloride 100 mL, Rate: No Longer 0.154 MEQ/ML 10 ml/hr, Active 2015 [facility] Injectable Infuse over: 10 Solution hr, Route: IVPB, Dosing Weight 47.001 kg, Total Volume: 100, Infuse at 8 mg / hr for 72 hours for GI bleeding, Start date: 10/25/15 14:40:00, Duration: 72 hr, Stop date: 10/28/15 14:39:00 Reglan 5 mg, 1 mL, No Longer Route: IVP, 2015 [facility] Drug form: INJ, Q6H, Dosing Weight 47.001, kg, Start date: 10/25/15 12:00:00, Stop date: 11/24/15 6:00:00Notes: (Same as: Reglan) Morphine 2 mg, 1 mL, Inactive Route: IVP, 2015 Drug form: INJ, ONCE, Dosing Weight 47.001, kg, Start date: 10/25/15 8:51:00, Stop date: 10/25/15 8:51:00Notes: (Same as:MORPhine Sulfate) Calcium 1,000 mg, 2 No Longer Carbonate 500 MG tab, Route: Active 2015 [facility] Chewable Tablet CHEW, Drug form: CHEWTAB, PRN, Dosing Weight 47.001, kg, PRN Abnormal Lab Result, FOR ICU USE ONLY, Start date: 10/25/15 2:39:00, Duration: 30 day, Stop date: 11/24/15 2:38:00Notes: (Same As: Tums) Calcium Carbonate 500 vk=335 mg elemental calcium Dose= mg calcium carbonate ( mg elemental calcium) Magnesium 2 gm, 50 mL, No Longer Sulfate Route: IVPB, Active 2015 [facility] Drug form: INJ, PRN, Dosing Weight 47.001, kg, PRN Abnormal Lab Result, Start date: 10/25/15 2:39:00, Duration: 30 day, Stop date: 11/24/15 2:38:00, FOR ICU USE ONLYNotes: WASTE: F/P - Sink; E - Municipal Trash Bin Neutra-Phos 2 pkt, Route: No Longer PO, Drug Form: Active 2015 [facility] PDR/REC, Dosing Weight 47.001, kg, PRN, PRN Abnormal Lab Result, FOR ICU USE ONLY, Start date: 10/25/15 2:39:00, Duration: 30 day, Stop date: 11/24/15 2:38:00Notes: (Same as: Neutra-Phos) Each 1.25 gm pkt has 250mg phosphorous. Mix w/2.5oz water and stir. Calcium 1 gm, 50 mL, No Longer Gluconate Route: IVPB, Active 2015 [facility] Drug form: INJ, PRN, Dosing Weight 47.001, kg, PRN Abnormal Lab Result, Start date: 10/25/15 2:39:00, Duration: 30 day, Stop date: 11/24/15 2:38:00, FOR ICU USE ONLYNotes: WASTE: F/P - Sink; E - Municipal Trash Bin Magnesium Oxide 800 mg, 2 tab, No Longer Route: PO, Drug Active 2015 [facility] form: TAB, PRN, Dosing Weight 47.001, kg, PRN Abnormal Lab Result, FOR ICU USE ONLY, Start date: 10/25/15 2:39:00, Duration: 30 day, Stop date: 11/24/15 2:38:00Notes: (Same as: Mag-Ox 400) Magnesium oxide [id number] elemental magnesium Dose=____mg magnesium oxide (___mg elemental magnesium) potassium 30 mmol, 250 No Longer phosphate mL, Route: Active 2015 [facility] IVPB, Drug form: INJ, PRN, Dosing Weight 47.001, kg, PRN Abnormal Lab Result, Start date: 10/25/15 2:39:00, Duration: 30 day, Stop date: 11/24/15 2:38:00, FOR ICU USE ONLYNotes: (Same as: K Phosphate.) sodium phosphate 30 mmol, 250 No Longer mL, Route: 2015 [facility] IVPB, Drug form: INJ, PRN, Dosing Weight 47.001, kg, PRN Abnormal Lab Result, Start date: 10/25/15 2:39:00, Duration: 30 day, Stop date: 11/24/15 2:38:00, FOR ICU USE ONLY sodium phosphate 45 mmol, 15 mL, No Longer + Sodium Route: IVPB, 2015 Chloride 0.9% IV PRN, Dosing 250 mL Weight 47.001, kg, PRN Abnormal Lab Result, Start date: 10/25/15 2:39:00, Duration: 30 day, Stop date: 11/24/15 2:38:00, FOR ICU USE ONLY potassium 45 mmol, 15 mL, No Longer phosphate + Route: IVPB, 2015 Sodium Chloride PRN, Dosing 0.9% IV 250 mL Weight 47.001, kg, PRN Abnormal Lab Result, Start date: 10/25/15 2:39:00, Duration: 30 day, Stop date: 11/24/15 2:38:00, FOR ICU USE ONLYNotes: (Same as: K Phosphate.) 1 mMol phoshate has 1.47 mEq potassium Infuse over 4 hours potassium 20 mEq, 1 tab, No Longer chloride Route: PO, Drug 2015 [facility] form: ERTAB, PRN, Dosing Weight 47.001, kg, PRN Abnormal Lab Result, Start date: 10/25/15 2:39:00, Duration: 30 day, Stop date: 11/24/15 2:38:00, FOR ICU USE ONLYNotes: (Same as: K-Dur 20) "Do Not Crush" With food and full glass of water Amitriptyline 25 mg, 1 tab, No Longer Route: PO, Drug 2015 [facility] form: TAB, Bedtime, Dosing Weight 47.001, kg, Start date: 10/24/15 21:00:00, Duration: 30 day, Stop date: 11/22/15 21:00:00Notes: (Same as: Elavil) morphine Sulfate 2 mg, 1 mL, No Longer Route: IV, Drug Active 2015 [facility] form: INJ, Q4H, PRN Pain Score 4-6, Start date: 10/24/15 15:27:00, Duration: 30 day, Stop date: 11/23/15 15:26:00Notes: (Same as:MORPhine Sulfate) Phenergan 12.5 mg, 0.5 No Longer mL, Route: IM, Active 2015 [facility] Drug form: INJ, Q8H, PRN Nausea, Start date: 10/24/15 15:26:00, Duration: 30 day, Stop date: 11/23/15 15:25:00Notes: Do not give IV push. (Same as: Phenergan) carvedilol 3.125 mg, 1 No Longer tab, Route: PO, Active 2015 [facility] Drug form: TAB, BID, Dosing Weight 47.001, kg, Start date: 10/24/15 9:00:00, Duration: 30 day, Stop date: 11/22/15 17:00:00Notes: Give with food. (Same As: Coreg) 24 HR Etodolac 500 mg, 1 tab, Inactive 500 MG Extended Route: PO, Drug 2015 [facility] Release Tablet form: ERTAB, BID, Dosing Weight 47.001, kg, Start date: 10/24/15 9:00:00, Duration: 30 day, Stop date: 11/22/15 17:00:00 Nexium 40 mg, Route: Inactive PO, Daily, 2015 [facility] Dosing Weight 47.001, kg, Start date: 10/24/15 9:00:00, Duration: 30 day, Stop date: 11/22/15 9:00:00 168 HR Clonidine 1 patch, Route: No Longer 0.98449 MG/HR TOP, Drug Form: Active 2015 [facility] Transdermal ERFILM, Dosing Patch Weight 47.001, kg, qWeek, Start date: 10/24/15 8:44:00, Duration: 30 day, Stop date: 11/21/15 9:00:00Notes: Patch delivers 0.1 mg/24 hours; Patch is applied weekly. "Remove old patch before application of new patch" (Same As: Hssgknos-WYW-8) Advair Diskus 1 puff, Route: Inactive 500 mcg-50 mcg INHALATION, 2015 [facility] inhalation Drug Form: powder AERO, Dosing Weight 47.001, kg, RBID, Start date: 10/24/15 8:44:00, Duration: 30 day, Stop date: 11/23/15 8:00:00Notes: (Same as: Advair) Methocarbamol 500 mg, 1 tab, No Longer Route: PO, Drug Active 2015 [facility] [facility] form: TAB, Q8H, Dosing Weight 47.001, kg, PRN Muscle Spasms, Start date: 10/24/15 7:56:00, Duration: 30 day, Stop date: 11/23/15 7:55:00Notes: (Same as:Robaxin) Meclizine 25 mg, 1 tab, No Longer Route: PO, Drug Active 2015 [facility] form: TAB, TID, Dosing Weight 47.001, kg, PRN Dizziness, Start date: 10/24/15 7:56:00, Duration: 30 day, Stop date: 11/23/15 7:55:00Notes: (Same as: Antivert) Hyoscyamine 0.125 mg, 1 No Longer tab, Route: SL, Active 2015 [facility] Drug form: TAB, Q6H, Dosing Weight 47.001, kg, PRN Spasm, Start date: 10/24/15 7:56:00, Duration: 30 day, Stop date: 11/23/15 7:55:00, Irritable bowel symdromeNotes: (Same as: Levsin) Take 30 min before meal Acetaminophen 2 tab, Route: No Longer 325 MG / PO, Drug Form: Active 2015 [facility] Hydrocodone TAB, Dosing Bitartrate 5 MG Weight 47.001, Oral Tablet kg, Q6H, PRN [[place] 5/325] Pain Score 4-6, Start date: 10/24/15 7:55:00, Duration: 30 day, Stop date: 11/23/15 7:54:00Notes: (Same as: [place] 325/5) Do not exceed 4gm/day of acetaminophen. Alprazolam 0.25 0.25 mg, 1 tab, No Longer MG Oral Tablet Route: PO, Drug Active 2015 [facility] form: TAB, TID, Dosing Weight 47.001, kg, PRN Anxiety, Start date: 10/24/15 7:55:00, Stop date: 11/23/15 7:54:00Notes: With food or milk (Same as: Xanax) Clonidine 0.2 mg, 1 tab, Inactive Hydrochloride Route: PO, Drug 2015 [facility] 0.2 MG Oral form: TAB, Q8H, Tablet Dosing Weight 47.001, kg, Start date: 10/24/15 0:00:00, Duration: 30 day, Stop date: 11/22/15 16:00:00Notes: (Same As: Catapres) Amlodipine 10 mg, 1 tab, No Longer Route: PO, Drug Active 2015 [facility] form: TAB, Daily, Dosing Weight 47.001, kg, Priority: STAT, Start date: 10/23/15 22:43:00, Duration: 30 day, Stop date: 11/22/15 9:00:00Notes: (Same as: Norvasc) Cardene 40 mg in 40 mg, 200 mL, No Longer NS 200 mL Rate: Titrate, Active 2015 [facility] (Titrate.) IV 40 Start Dose: 5 mg mg/hr, Titration: Goal SBP Notes: Same as: Cardene Concentration: (0.2 mg /1 ml ) Labetalol 20 mg, 4 mL, No Longer Route: IVP, 2015 [facility] Drug form: INJ, Q2H, Dosing Weight 47.001, kg, PRN Hypertension, Start date: 10/23/15 22:42:00, Duration: 3 day, Stop date: 10/26/15 22:41:00Notes: (Same as: Normodyne, Trandate) Push over 2 minutes Give bolus over 2-3 minutes. Zofran 4 mg, 2 mL, No Longer Route: IVP, 2015 [facility] Drug form: INJ, Q4H, PRN Nausea, Start date: 10/23/15 19:05:00, Duration: 30 day, Stop date: 11/22/15 19:04:00Notes: (Same as: Zofran) MEDICATION WASTE Product Size: 4 mg Product Wasted: ___ mg Ondansetron 4 mg, 2 mL, Inactive Route: IVP, 2015 [facility] Drug form: INJ, Q8H, Dosing Weight 47.001, kg, PRN Nausea & Vomiting, Start date: 10/23/15 17:49:00, Duration: 30 day, Stop date: 11/22/15 17:48:00Notes: (Same as: Ed) MEDICATION WASTE Product Size: 4 mg Product Wasted: ___ mg Sublimaze 200 microgram, No Longer 4 mL, Route: Active 2015 [facility] IV, Drug form: INJ, ONCE, Start date: 10/23/15 17:30:00, Stop date: 10/23/15 17:30:00Notes: (Same as: Sublimaze) Preservative free. midazolam 3 mg, 3 mL, No Longer Route: IV, Drug Active 2015 [facility] form: INJ, ONCE, Start date: 10/23/15 17:30:00, Stop date: 10/23/15 17:30:00Notes: (Same as: Versed) MEDICATION WASTE Product Size: 2 mg Product Wasted: ___ mg Thyroxine 25 microgram, 1 No Longer tab, Route: PO, Active 2015 [facility] Drug form: TAB, Q630AM, Dosing Weight 47.001, kg, Start date: 10/23/15 6:30:00, Duration: 30 day, Stop date: 11/21/15 6:30:00Notes: Take 1 hour before or 2 hours after meal; Enteral feeds may interefere with the absorption of this medication. (Same as:Levothroid) Sublimaze 25 microgram, No Longer 0.5 mL, Route: Active 2015 [facility] IVP, Drug form: INJ, Q3H, PRN Pain Score 4-6, Start date: 10/22/15 21:47:00, Duration: 30 day, Stop date: 11/21/15 21:46:00Notes: (Same as: Sublimaze) Preservative free. Saline Flush 10 ml, Route: No Longer 0.9% IVP, Drug Form: Active 2015 [facility] INJ, Dosing Weight 47.001, kg, Q12H, Start date: 10/22/15 21:00:00, Duration: 30 day, Stop date: 11/21/15 9:00:00Notes: (Same as: BD Posiflush) sennosides, MCFP 8.6 mg, 1 tab, No Longer Route: PO, Drug Active 2015 [facility] Form: TAB, Dosing Weight 47.001, kg, Q12H, Start date: 10/22/15 21:00:00, Duration: 30 day, Stop date: 11/21/15 9:00:00Notes: (Same as: Senokot) Docusate 100 mg, 1 cap, No Longer Route: PO, Drug Active 2015 [facility] form: CAP, Q12H, Dosing Weight 47.001, kg, Start date: 10/22/15 21:00:00, Duration: 30 day, Stop date: 11/21/15 9:00:00Notes: (Same as: Colace) (Do Not Crush) Singulair 10 mg, 1 tab, No Longer Route: PO, Drug Active 2015 [facility] form: TAB, Bedtime, Dosing Weight 47.001, kg, Start date: 10/22/15 21:00:00, Duration: 30 day, Stop date: 11/20/15 21:00:00Notes: (Same as:Singulair) budesonide-formo 2 inhalation, No Longer terol 160 Route: Active 2015 [facility] mcg-4.5 mcg/inh INHALATION, inhalation Drug Form: aerosol with AERO/A, BID, adapter Start date: 10/22/15 17:00:00, Duration: 30 day, Stop date: 11/21/15 9:00:00Notes: (Same as: Symbicort) WASTE: Aerosol - Return to Pharmacy Seroquel 25 mg, 1 tab, No Longer Route: PO, Drug Active 2015 [facility] form: TAB, BID, Dosing Weight 47.001, kg, Start date: 10/22/15 17:00:00, Duration: 30 day, Stop date: 11/21/15 9:00:00Notes: (Same as: SEROquel) Levetiracetam 750 mg, 7.5 mL, No Longer 750 MG Oral Route: PO, Drug Active 2015 [facility] Tablet [Keppra] form: SOLN, BID, Dosing Weight 47.001, kg, Start date: 10/22/15 17:00:00, Duration: 30 day, Stop date: 11/21/15 9:00:00Notes: Same as: Keppra Cymbalta 30 mg, 1 cap, No Longer Route: PO, Drug Active 2015 [facility] form: DRC, BID, Dosing Weight 47.001, kg, Start date: 10/22/15 17:00:00, Duration: 30 day, Stop date: 11/21/15 9:00:00Notes: (Same as: Cymbalta) (Do Not Crush) Advair Diskus 1 puff, Route: Inactive 500 mcg-50 mcg INHALATION, 2015 [facility] inhalation Drug Form: powder AERO, Dosing Weight 47.001, kg, BID, Start date: 10/22/15 17:00:00, Duration: 30 day, Stop date: 11/21/15 9:00:00 ibandronic acid 150 mg=1 tab, No Longer 150 MG Oral PO, qMonth, Active 2015 [facility] Tablet [Boniva] Swallow whole w/6-8oz water 1HR before first food, drink, med-Do not lie down for 1HR & until after first food, # 1 tab, 0 Refill(s) Acetaminophen 2 tab, PO, Q6H, Active 325 MG / PRN for pain, 0 2015 [facility] Hydrocodone Refill(s) Bitartrate 5 MG Oral Tablet [[place] 5/325] carvedilol 3.125 3.125 mg=1 tab, Active mg oral tablet PO, BID, # 180 2015 [facility] tab, 1 Refill(s) dexlansoprazole 60 mg=1 cap, No Longer 60 MG Enteric PO, Daily, # 30 Active 2015 [facility] Coated Capsule day, 1 [Dexilant] Refill(s) duloxetine 30 MG 30 mg=1 cap, Active Enteric Coated PO, BID, # 60 2016 [facility] Capsule cap, 0 [Cymbalta] Refill(s) methocarbamol 500 mg=1 tab, Active 500 mg oral PO, Q8H, PRN 2016 [facility] tablet Spasms, # 60 tab, 0 Refill(s) Levetiracetam 750 mg=1 tab, Active 750 MG Oral PO, BID, # 60 2016 [facility] Tablet [Keppra] tab, 2 Refill(s) montelukast 10 10 mg=1 tab, Active MG Oral Tablet PO, Bedtime, # 2016 [facility] [Singulair] 30 tab, 0 Refill(s) 168 HR Clonidine 1 patch, TOP, Active 0.93296 MG/HR qWeek, # 12 2016 [facility] Transdermal patch, 0 Patch Refill(s) quetiapine 25 MG 25 mg=1 tab, Active Oral Tablet PO, BID, 0 2016 [facility] [Seroquel] Refill(s) linaclotide 145 microgram=1 Active 0.145 MG Oral cap, PO, Daily, 2016 [facility] Capsule 30 minutes [Linzess] prior to the first meal of the day, # 30 cap, 0 Refill(s) etodolac 500 mg 500 mg=1 tab, No Longer oral tablet PO, BID, # 60 Active 2015 [facility] tab, 1 Refill(s) meclizine 25 mg 25 mg=1 tab, Active oral tablet PO, TID, PRN 2015 [facility] for dizziness, # 60 tab, 0 Refill(s) Nexium 40 mg, PO, No Longer Daily, 0 Active 2015 [facility] Refill(s) levocetirizine 5 5 mg=1 tab, PO, Active mg oral tablet Bedtime, PRN as 2016 [facility] needed for allergy symptoms, # 30 tab, 0 Refill(s) hyoscyamine 0.125 mg=1 tab, Active 0.125 mg SL, Q6H, PRN 2016 [facility] sublingual Spasms, # 30 tablet tab, 0 Refill(s) Alprazolam 0.25 0.25 mg=1 tab, Active MG Oral Tablet PO, TID, PRN 2016 [facility] Anxiety, # 30 tab, 0 Refill(s) amitriptyline 25 25 mg=1 tab, Active mg oral tablet PO, Bedtime, # 2016 [facility] 30 tab, 1 Refill(s) Advair Diskus 1 puff, Active 500 mcg-50 mcg INHALATION, 2016 [facility] inhalation BID, # 1 ea, 3 powder Refill(s) levothyroxine 25 25 microgram=1 Active mcg (0.025 mg) tab, PO, Daily, 2016 [facility] oral tablet # 30 tab, 1 Refill(s) Amlodipine 5 mg, PO, BID, Active 0 Refill(s) 2016 [facility] Sodium Chloride 100 mL, Rate: No Longer 0.154 MEQ/ML 10 ml/hr, Active 2015 [facility] Injectable Infuse over: 10 Solution hr, Route: IVPB, Dosing Weight 47.001 kg, Total Volume: 100, Infuse at 8 mg / hr for 72 hours for GI bleeding, Start date: 10/22/15 12:59:00, Duration: 72 hr, Stop date: 10/25/15 12:58:00 Saline Flush 10 ml, Route: No Longer 0.9% IVP, Drug Form: Active 2015 [facility] INJ, Dosing Weight 47.001, kg, PRN, [...] - [place] Diclofenac THREE TIMES A Active [facility] Sodium DAY 2013 [facility] [place] Esomeprazole Mag DAILY [...] 2013 [facility] [place] Dexlansoprazole DAILY Active [facility] 2013 [facility] [place] Linaclotide DAILY Active [facility] St[facility] 2013 [facility] [place] Esomeprazole Mag DAILY Active [facility] Trihydrate 2011 [facility] [place] Etodolac TWICE DAILY PRN Active [facility] back 2012 [facility] - pain/arthritis [place] Fluticasone/Salm TWICE DAILY Active St[facility] eterol 2012 [facility] [place] Levetiracetam AT BEDTIME Inactive [facility] 2012 [facility] [place] Mometasone TWICE DAILY Active St[facility] Furoate 2012 [facility] [place] Montelukast AT BEDTIME Active [facility] Sodium 2011 [facility] [place] Tiotropium DAILY Active [facility] [place] 2012 [facility] [place] Albuterol EVERY 4 HOURS Active [facility] St[facility] NEEDED PRN 2012 [facility] For sob [place] Hydrocodone FOUR TIMES Active [facility] Bit/Acetaminophe DAILY NEEDED 2012 [facility] n PRN For Pain [place] Levothyroxine DAILY Active [facility] 2012 [facility] [place] Methocarbamol Q6H Active [facility] St[facility] 2012 [facility] [place] Quetiapine AT BEDTIME Inactive [facility] St[facility] Fumarate 2012 [facility] [place] Ciprofloxacin TWICE DAILY Active [facility] 03/19/ [facility] St[facility] Hcl 2012 [facility] [place] Levetiracetam TWICE DAILY Active [facility] St[facility] 2012 [facility] [place] Azelastine Active [facility] St[facility] 2012 [facility] [place] Mometasone 0.1% Active 10/15/ [facility] St[facility] 2012 [facility] [place] Amlodipine Active [facility] St[facility] Besylate 2012 [facility] [place] Carvedilol Active [facility] 2012 [facility] [place] Iron Active [facility] St[facility] 2012 [facility] [place] Multivit with Active [facility] St. Calcium,Iron,Min 2012 [facility] [place] Nexium Active 10/15/ [facility] 2012 [facility] [place] Folic Acid Active 10/15/ [facility] 2012 [facility] [place] Etodolac Active [facility] 2011 [facility] [place] Montelukast Active [facility] Sodium 2012 [facility] [place] Boniva Active 10/15/ [facility] 2012 [facility] [place] Levetiracetam Active [facility] 2011 [facility] [place] Duloxetine Active [facility] 2011 [facility] [place] Quetiapine Active [facility] St[facility] Fumarate 2012 [facility] [place] Hydrocodone Active 10/15/ [facility] St. Bit/Acetaminophe 2011 [facility] - n [place] Avonex Active 10/15/ [facility] 2011 [facility] [place] Sumatriptan Active 10/15/ [facility] 2011 [facility] [place] Proventil Active 10/15/ [facility] 2012 [facility] [place] Allergies, Adverse Reactions, Alerts Substance Category Reaction Severity Reaction Status Date Comments Source type Reported amoxicillin Itching Moderate Allergy to Active [facility] St[facility] trihydrate Substance 7 [facility] [place] potassium Itching Moderate Allergy to Active [facility] clavulanate Substance 7 [facility] [place] Sulfa Itching Moderate Allergy to Active [facility] (Sulfonamide Substance 7 [facility] - Antibiotics) [place] Augmentin Unknown Allergy to Active [facility] ES-600 Substance 7 [facility] [place] sulfa drugs Assertion Drug Active [facility] Augmentin Assertion Drug Active [facility] Neuro Immunizations Immunization Date Given Site Status Last Comments Source Updated Influenza Adult 06/29/2015 completed JORGE ALBERTO Thomas Vaccine - [place] Results Order Name Results Value Reference Date Interpretation Comments Source Range HEMATOLOGY Hct 25.5 36.0 - 02/06 [facility] 48.0 [facility] HEMATOLOGY Hgb 8.6 12.0 - 02/06 [facility] 16.0 [facility] CHEM PANEL Vitamin D, 12.4 30.0 - 02/05 [facility] 25-OH, Total 100.0 [facility] ELECTROLYT AGAP 13.9 10.0 - 02/05 [facility] 20.0 [facility] ELECTROLYT eGFR 82 02/05 Result [facility] Comment: The Medical eGFR is Center calculated [...] Chloride Lvl 110 95 - 109 02/05 [facility] ELECTROLYT CO2 24 24 - 32 02/05 [facility] ELECTROLYT Sodium Lvl 144 135 - 145 02/05 [facility] ELECTROLYT Potassium 3.9 3.5 - 5.1 02/05 [facility] Lvl [facility] ELECTROLYT BUN 20 7 - 22 02/05 [facility] ELECTROLYT Creatinine 0.68 0.50 - 02/05 [facility] Lvl 1.40 Medical Center ELECTROLYT Glucose Lvl 151 70 - 99 02/05 [facility] ES [facility] ELECTROLYT Calcium Lvl 7.9 8.5 - 10.5 02/05 [facility] ES [facility] HEMATOLOGY MCV 93.8 80.0 - 02/05 [place] 98.0 [facility] HEMATOLOGY MCH 31.7 27.0 - 02/05 [place] 31.0 [facility] HEMATOLOGY Hct 26.2 36.0 - 02/05 [place] 48.0 [facility] HEMATOLOGY Platelet 215 133 - 450 02/05 [facility] HEMATOLOGY MCHC 33.8 32.0 - 02/05 [place] 36.0 [facility] HEMATOLOGY MPV 6.8 7.4 - 10.4 02/05 [facility] HEMATOLOGY RDW 12.7 11.5 - 02/05 [place] 14.5 [facility] HEMATOLOGY Hgb 8.9 12.0 - 02/05 [place] 16.0 [facility] HEMATOLOGY WBC 7.6 3.7 - 10.4 02/05 [facility] HEMATOLOGY RBC 2.79 4.20 - 02/05 [place] 5.40 [facility] HEMATOLOGY Monocytes # 1.2 0.0 - 0.8 02/05 [place] [facility] HEMATOLOGY Lymphocytes 1.2 1.0 - 5.5 02/05 [place] # /2017 [facility] HEMATOLOGY Monocytes 16.0 2.0 - 12.0 02/05 [facility] HEMATOLOGY Lymphocytes 15.8 20.0 - 02/05 [place] 40.0 [facility] HEMATOLOGY Segs 67.9 45.0 - 02/05 [place] 75.0 [facility] HEMATOLOGY Segs-Bands # 5.1 1.5 - 8.1 02/05 [facility] HEMATOLOGY Basophils 0.3 0.0 - 1.0 02/05 [facility] PARATHYROI PTH Intact 122.9 18.4 - 02/05 [facility] D PROFILE 80.1 [facility] BLOOD BANK ABO/Rh O POS 02/04 [facility] RESULTS [facility] BLOOD BANK Antibody Negative 02/04 [facility] RESULTS Scrn (02/04/18 4:21 AM) [facility] CHEM PANEL Lactic Acid 0.9 0.5 - 2.2 02/04 [facility] Lvl /2017 [facility] ELECTROLYT AGAP 11.9 10.0 - 02/04 [facility] ES 20.0 [facility] ELECTROLYT eGFR 83 02/04 Result [facility] Comment: The Medical eGFR is Center [...] Calcium Lvl 8.1 8.5 - 10.5 02/04 [facility] ELECTROLYT CO2 22 24 - 32 02/04 [facility] ELECTROLYT Sodium Lvl 140 135 - 145 02/04 [facility] ELECTROLYT Creatinine 0.67 0.50 - 02/04 [facility] Lvl 1.40 [facility] ELECTROLYT BUN 22 7 - 22 02/04 [facility] ELECTROLYT Glucose Lvl 135 70 - 99 02/04 [facility] ELECTROLYT Chloride Lvl 110 95 - 109 02/04 [facility] ELECTROLYT Potassium 3.9 3.5 - 5.1 02/04 [facility] HEMATOLOGY PTT 24.7 22.9 - 02/04 [place] 35.8 [facility] HEMATOLOGY INR 1.01 0.85 - 02/04 [place] 1.17 [facility] HEMATOLOGY PT 13.3 12.0 - 02/04 [place] 14.7 [facility] HEMATOLOGY Platelet 232 133 - 450 02/04 [facility]2017 [facility] HEMATOLOGY MPV 7.1 7.4 - 10.4 02/04 [facility]2017 [facility] HEMATOLOGY Hct 32.2 36.0 - 02/04 [place] 48.0 /2018 [facility] HEMATOLOGY RBC 3.42 4.20 - 02/04 [place] 5.40 /2018 [facility] HEMATOLOGY Hgb 10.8 12.0 - 02/04 [place] 16.0 /2017 [facility] HEMATOLOGY WBC 8.5 3.7 - 10.4 05 [facility] HEMATOLOGY MCHC 33.5 32.0 - 05 [place] 36.0 /2017 [facility] HEMATOLOGY RDW 13.0 11.5 - 02/04 [place] 14.5 /2017 [facility] HEMATOLOGY MCV 94.1 80.0 - 02/04 [place] 98.0 /2017 [facility] HEMATOLOGY MCH 31.5 27.0 - 05 [place] 31.0 [facility] HEMATOLOGY Eosinophils 2.3 0.0 - 4.0 05/ /2017 [facility] HEMATOLOGY Lymphocytes 1.7 1.0 - 5.5 05 [facility] # /2017 [facility] HEMATOLOGY Segs-Bands # 5.5 1.5 - 8.1 02/04 [facility] HEMATOLOGY Basophils 0.8 0.0 - 1.0 05 [facility] HEMATOLOGY Basophils # 0.1 0.0 - 0.2 05/ [facility] HEMATOLOGY Eosinophils 0.2 0.0 - 0.5 05 [facility] # /2017 [facility] HEMATOLOGY Monocytes # 1.1 0.0 - 0.8 02/04 [facility] HEMATOLOGY Segs 64.6 45.0 - 02/04 [place] 75.0 /2018 [facility] HEMATOLOGY Lymphocytes 19.7 20.0 - 02/04 [place] 40.0 2018 [facility] HEMATOLOGY Monocytes 12.6 2.0 - 12.0 02/[address] [place] [address] Laboratory Sodium Level 141 135 - 145 08/[address] [facility] [address] Studies /2017 [facility] [place] Laboratory [...] Laboratory Chloride 108 101 - 111 08/24 [facility] [address] Studies Level /2017 [facility] [place] Laboratory Carbon 25 21 - 31 08/24 [facility] [address] Studies Dioxide /2017 [facility] Level [place] Laboratory Calcium 8.9 8.5 - 10.5 08/24 [facility]. Studies Level /2016 [facility] [place] Laboratory Blood Urea 27 6 - 20 08/24 [facility]. Studies Nitrogen /2017 [facility] [place] Laboratory White Blood 5.6 4.3 - 10.9 08/24 [facility] [address] Studies Count /2016 [facility] [place] Laboratory Red Cell 11.9 12.1 - 08/24 [facility]. Studies Distribution 15.2 /2016 [facility] Width [place] Laboratory Red Blood 3.33 3.86 - 08/24 [facility]. Studies Count 4.86 /2016 [facility] [place] Laboratory Platelet 240 152 - 406 08/24 [facility]. Studies Count /2016 [facility] [place] Laboratory Neutrophils 83.8 41.7 - 08/24 [facility] [address] Studies % 73.7 /2016 [facility] [place] Laboratory Monocytes % 1.1 3.3 - 12.3 08/24 [facility] [address] Studies /2017 [facility] [place] Laboratory Mean 6.8 7.6 - 11.3 08/24 [facility]. Studies Platelet /2016 [facility] Volume [place] Laboratory Mean 92.6 80 - 100 08/24 [facility]. Studies Corpuscular /2016 [facility] Volume [place] Laboratory Mean 35.1 32.0 - 08/24 [facility]. Studies Corpuscular 36.0 /2016 [facility] - Hemoglobin [place] [facility] Laboratory Mean 32.5 27.0 - 08/24 [facility]. Studies Corpuscular 35.0 /2016 [facility] Hemoglobin [place] Laboratory Lymphocytes 14.7 15.3 - 08/24 [facility] [address] Studies % 44.8 /2016 [facility] [place] Laboratory Hemoglobin 10.8 12.0 - 08/24 [facility] [address] Studies 15.0 /2016 [facility] [place] Laboratory Hematocrit 30.8 36.0 - 08/24 [facility] [address] Studies 45.0 /2016 [facility] [place] Laboratory Eosinophils 0.0 0 - 4.4 08/24 [facility] [address] Studies % /2016 [facility] [place] Laboratory Basophils % 0.4 0 - 1.3 08/24 [facility] [address] Studies /2016 [facility] [place] Laboratory Absolute 4.7 1.8 - 8.0 08/24 [facility]. Studies Neutrophil /2016 [facility] [place] Laboratory Absolute 0.1 0.1 - 1.3 08/24 [facility]. Studies Monocytes [facility] - (CBC) [facility] Absolute 0.8 0.7 - 4.9 08/24 [facility]. Studies Lymphocytes [facility] - (CBC) [facility] Absolute 0.0 0 - 0.5 08/24 [facility]. Studies Eosinophils [facility] - (CBC) [facility] Absolute 0.0 0 - 0.5 08/24 [facility]. Studies Basophils [facility] - (CBC) [facility] B-Type 202 08/24 [facility]. Studies Natriuretic [facility] - Peptide [facility] Troponin I <0.03 08/24 [facility]. Studies [facility] - [facility] Urine pH 6.0 08/23 [facility] Studies [facility] - [facility] Urine Total Urine 08/23 [facility] Studies Protein Total /2016 [facility] - Protein [facility] Urine 1.025 08/23 [facility]. Studies Specific /2016 [facility] [place] [facility] Urine Urine 08/23 [facility] Studies Nitrite Nitrite /2016 [facility] Urine Urine 08/23 [facility] Studies Leukocyte Leukocyte /2016 [facility] - Esterase Esterase [facility] Urine Urine 08/23 [facility] Studies Ketones Ketones /2016 [facility] Urine Urine 08/23 [facility] Studies Glucose Glucose /2016 [facility] Urine Blood Urine 08/23 [facility] Studies Blood /2016 [facility] Procalcitoni <0.05 08/23 [facility]. Studies n /2016 [facility] Creatine 2.3 0.3 - 4.0 08/23 [facility] Studies Kinase MB /2016 [facility] Total 0.6 0.3 - 1.2 08/23 [facility] Studies Bilirubin /2016 [facility] Serum Total 6.6 6.0 - 8.3 08/23 [facility]. Studies Protein /2016 [facility] Magnesium 1.9 1.8 - 2.5 08/23 [facility]. Studies Level /2016 [facility] Globulin 3.2 2.3 - 3.5 08/23 [facility]. Studies /2016 [facility] Direct 0.1 0 - 0.2 08/23 [facility] Studies Bilirubin /2016 [facility] Creatine 53 22 - 269 08/23 [facility]. Studies Kinase /2016 [facility] Aspartate 17 10 - 42 08/23 [facility]. Studies Amino Transf /2016 [facility] - (AST/SGOT) [facility] Alkaline 57 42 - 121 08/23 [facility] Studies Phosphatase /2016 [facility] Albumin/Glob 1.1 1.1 - 1.8 08/23 [facility] Studies ulin Ratio /2016 [facility] Albumin 3.4 3.2 - 5.5 08/23 [facility]. Studies [facility] Alanine 10 10 - 60 08/23 [facility] Studies Aminotransfe /2016 [facility] - rase [facility] (ALT/SGPT) Laboratory Rapid <0.03 08/23 [facility] Studies Troponin I /2016 [facility] Lipase 22 22 - 51 08/23 [facility]. Studies [facility] Prothrombin 12.1 9.5 - 12.5 08/23 [facility] Studies Time [facility] INR 1.03 08/23 [facility] Studies [employer] - l Normalized [facility] [facility] Activated 27.2 24.3 - 08/23 [facility] Studies Partial 36.9 2017 [facility] - Thromboplast [place] Time ELECTROLYT AGAP 11.7 10.0 - 02 ES 20.0 /2016 [facility] ELECTROLYT eGFR 99 10/28 Result ES /2015 Comment: The [facility] eGFR is calculated using the CKD-EPI [...] ELECTROLYT CO2 29 24 - 32 10/28 [facility] ELECTROLYT Chloride Lvl 104 95 - 109 10/28 [facility] ELECTROLYT Potassium 3.7 3.5 - 5.1 10/28 [facility] Lvl /2015 [facility] ELECTROLYT Sodium Lvl 141 135 - 145 10/28 [facility] ELECTROLYT Creatinine 0.40 0.50 - 10/28 [facility] Lvl 1.40 [facility] ELECTROLYT Calcium Lvl 8.1 8.5 - 10.5 10/28 [facility] ELECTROLYT BUN 8 7 - 22 10/28 [facility] ELECTROLYT Glucose Lvl 94 70 - 99 10/28 [facility] HEMATOLOGY RDW 16.6 11.5 - 10/28 14.5 [facility] HEMATOLOGY MPV 7.2 7.4 - 10.4 10/28 [facility] HEMATOLOGY Platelet 299 133 - 450 10/28 [facility] HEMATOLOGY MCH 29.8 27.0 - 10/28 31.0 /2015 [facility] HEMATOLOGY MCHC 32.9 32.0 - 10/28 36.0 /2015 [facility] HEMATOLOGY MCV 90.5 80.0 - 10/28 98.0 /2016 [facility] HEMATOLOGY RBC 3.41 4.20 - 10/28 5.40 [facility] HEMATOLOGY WBC 8.1 3.7 - 10.4 10/28 [facility] HEMATOLOGY Hct 30.9 36.0 - 10/28 48.0 /2015 [facility] HEMATOLOGY Hgb 10.2 12.0 - 10/28 16.0 [facility] HEMATOLOGY Basophils 1.1 0.0 - 1.0 10/28 [facility] Segs-Bands # 5.4 1.5 - 8.1 10/28 [facility] Basophils # 0.1 0.0 - 0.2 10/28 [facility] Lymphocytes 1.2 1.0 - 5.5 10/28 [facility] # /2016 [facility] HEMATOLOGY Monocytes # 0.8 0.0 - 0.8 10/28 /2015 [facility]EMAT[facility]Y Eosinophils 0.6 0.0 - 0.5 10/28 MH # /2015 [facility] HEMATOLOGY Segs 66.7 45.0 - 10/28 MH 75.0 /2015 [facility] HEMATOLOGY Lymphocytes 15.1 20.0 - 10/28 MH 40.0 /2015 [facility] HEMATOLOGY Monocytes 9.7 2.0 - 12.0 10/28 /2015 [facility] HEMATOLOGY Eosinophils 7.4 0.0 - 4.0 10/28 /2015 [facility] HEMATOLOGY Hct 30.2 36.0 - 10/28 MH 48.0 /2015 [facility] HEMATOLOGY Hgb 10.1 12.0 - 10/28 16.0 /2015 [facility] HEMATOLOGY Hgb 9.4 12.0 - 10/27 MH 16.0 /2015 [facility] HEMATOLOGY Hct 27.9 36.0 - 10/27 MH 48.0 /2015 [facility] HEMATOLOGY PT 14.3 12.0 - 10/27 MH 14.7 /2015 [facility] HEMATOLOGY PTT 34.3 22.9 - 02 MH 35.8 /2016 [facility] HEMATOLOGY INR 1.08 0.85 - 10/27 MH 1.17 /2015 [facility] HEMATOLOGY Eosinophils 4.9 0.0 - 4.0 10/27 /2015 [facility] HEMATOLOGY Monocytes 8.3 2.0 - 12.0 10/27 /2015 [facility] HEMATOLOGY Basophils # 0.1 0.0 - 0.2 10/27 [facility] HEMATOLOGY Lymphocytes 0.9 1.0 - 5.5 10/27 MH # /2015 [facility] HEMATOLOGY Monocytes # 0.8 0.0 - 0.8 10/27 [facility] HEMATOLOGY Basophils 0.7 0.0 - 1.0 10/27 [facility] HEMATOLOGY Segs-Bands # 7.0 1.5 - 8.1 10/27 /2015 [facility] HEMATOLOGY Lymphocytes 9.9 20.0 - 10/27 MH 40.0 /2015 [facility] HEMATOLOGY Segs 76.2 45.0 - 10/27 MH 75.0 /2015 [facility] HEMATOLOGY Eosinophils 0.5 0.0 - 0.5 10/27 MH # /2015 [facility] HEMATOLOGY WBC 9.2 3.7 - 10.4 10/27 /2015 [facility] HEMATOLOGY MPV 7.5 7.4 - 10.4 10/27 [facility] HEMATOLOGY MCV 90.5 80.0 - 10/27 98.0 /2015 [facility] HEMATOLOGY MCH 30.0 27.0 - 10/27 MH 31.0 /2015 [facility] HEMATOLOGY MCHC 33.1 32.0 - 10/27 MH 36.0 /2015 [facility] HEMATOLOGY RBC 2.88 4.20 - 10/27 MH 5.40 /2015 [facility] HEMATOLOGY Platelet 246 133 - 450 10/27 [facility] HEMATOLOGY RDW 16.9 11.5 - 10/27 14.5 /2015 [facility] URINE AND UA <=1.0 0.1 - 1.0 10/26 STOOL Urobilinogen /2015 [facility] URINE AND Micro? Performed 10/26 STOOL *NA* /2015 [facility] (10/26/15 5:46 PM) URINE AND UA RBC <1 0 - 2 10/26 STOOL [facility] URINE AND UA Bacteria Occasional None Seen 10/26 STOOL /HPF /HPF /2015 [facility] URINE AND UA Bili Negative Negative 10/26 STOOL *NA* /2015 [facility] (10/26/15 5:46 PM) URINE AND UA Protein Negative Negative 10/26 STOOL mg/dL mg/dL [facility] URINE AND UA Glucose Negative Negative 10/26 STOOL mg/dL mg/dL [facility] URINE AND UA Ketones Negative Negative 10/26 STOOL mg/dL mg/dL [facility] URINE AND UA WBC 1 0 - 5 10/26 STOOL [facility] URINE AND UA Sq Epi Occasional Few /LPF 10/26 STOOL /LPF /2015 [facility] URINE AND UA Leuk Est Trace Negative 10/26 STOOL *ABN* /2015 [facility] (10/26/15 5:46 PM) URINE AND UA Nitrite Negative Negative 10/26 STOOL (10/26/15 5:46 PM) [facility] URINE AND UA Blood Negative Negative 10/26 STOOL (10/26/15 5:46 PM) [facility] URINE AND UA Turbidity Clear Clear 10/26 STOOL (10/26/15 5:46 PM) [facility] URINE AND UA Spec Grav 1.006 <=1.030 10/26 STOOL [facility] URINE AND UA pH 6.0 5.0 - 8.0 10/26 STOOL [facility] URINE AND UA Color Light Yellow Yellow 10/26 STOOL *NA* /2015 [facility] (10/26/15 5:46 PM) BLOOD BANK ABO/Rh O POS 10/26 RESULTS /2015 [facility] BLOOD BANK Antibody Negative 10/26 RESULTS Scrn (10/26/15 4:09 AM) /2015 [facility] CHEM PANEL eGFR 99 10/26 Result Comment: The [facility] eGFR is calculated using the CKD-EPI [...] Calcium Lvl 7.4 8.5 - 10.5 10/26 [facility] CHEM PANEL CO2 30 24 - 32 10/26 [facility] CHEM PANEL Chloride Lvl 103 95 - 109 10/26 [facility] CHEM PANEL Sodium Lvl 141 135 - 145 10/26 [facility] CHEM PANEL Potassium 3.6 3.5 - 5.1 10/26 Lvl /2015 [facility] CHEM PANEL BUN 13 7 - 22 10/26 [facility] CHEM PANEL Creatinine 0.40 0.50 - 02/ MH Lvl 1.40 /2016 [facility] CHEM PANEL Glucose Lvl 124 70 - 99 10/26 [facility] CHEM PANEL AGAP 11.6 10.0 - 02 MH 20.0 /2015 [facility] CHEM PANEL Phosphorus 2.4 2.5 - 4.5 10/26 [facility] CHEM PANEL Magnesium 1.9 1.8 - 2.4 10/26 Lvl /2015 [facility] HEMATOLOGY Basophils 0.4 0.0 - 1.0 10/26 [facility] HEMATOLOGY Segs-Bands # 9.0 1.5 - 8.1 10/26 [facility] HEMATOLOGY Monocytes 7.1 2.0 - 12.0 02/ /2015 [facility] HEMATOLOGY Lymphocytes 9.6 20.0 - 10/26 MH 40.0 /2015 [facility] HEMATOLOGY Lymphocytes 1.1 1.0 - 5.5 10/26 MH # /2015 [facility] HEMATOLOGY Eosinophils 3.4 0.0 - 4.0 10/26 /2015 [facility] HEMATOLOGY Eosinophils 0.4 0.0 - 0.5 10/26 MH # /2015 [facility] HEMATOLOGY Basophils # 0.0 0.0 - 0.2 10/26 /2015 [facility] HEMATOLOGY Monocytes # 0.8 0.0 - 0.8 10/26 /2015 [facility] HEMATOLOGY Segs 79.5 45.0 - 10/26 MH 75.0 /2015 [facility] HEMATOLOGY MCH 29.9 27.0 - 10/26 MH 31.0 /2015 [facility] HEMATOLOGY RBC 2.93 4.20 - 10/26 MH 5.40 /2015 [facility] HEMATOLOGY MPV 7.4 7.4 - 10.4 10/26 /2015 [facility] HEMATOLOGY RDW 17.7 11.5 - 10/26 14.5 /2015 [facility] HEMATOLOGY MCHC 32.8 32.0 - 02 MH 36.0 /2015 [facility] HEMATOLOGY Platelet 182 133 - 450 02 /2015 [facility] HEMATOLOGY MCV 91.2 80.0 - 10/26 98.0 /2015 [facility] HEMATOLOGY WBC 11.3 3.7 - 10.4 10/26 /2015 [facility] PARATHYROI Ca Ion WB 1.08 1.05 - 10/26 D PROFILE . [facility] PARATHYROI Ca Norm WB 1.09 1.05 - 10/26 D PROFILE . [facility] BLOOD BANK RBC product Product available 10/25 RESULTS (10/25/15 4:16 PM) /2015 [facility] HEMATOLOGY Polychrom Moderate None Seen 10/25 MH *ABN* /2015 [facility] (10/25/15 10:21 AM) HEMATOLOGY Plt Morph Normal 10/25 (10/25/15 10:21 AM) /2015 [facility] HEMATOLOGY Baso Moderate None Seen 10/25 [place] *ABN* /2015 [facility] (10/25/15 10:21 AM) HEMATOLOGY PTT 33.0 22.9 - 10/25 MH 35.8 /2015 [facility] HEMATOLOGY INR 1.18 0.85 - 10/25 1.17 [facility] HEMATOLOGY PT 15.3 12.0 - 10/25 MH 14.7 /2015 [facility] BLOOD BANK RBC product Product available 10/25 RESULTS (10/25/15 2:39 AM) /2015 [facility] CHEM PANEL Magnesium 1.7 1.8 - 2.4 10/25 Lvl [facility] CHEM PANEL eGFR 99 10/25 Result Comment: The [facility] eGFR is calculated using the CKD-EPI [...] Calcium Lvl 7.4 8.5 - 10.5 10/25 [facility] CHEM PANEL AGAP 12.4 10.0 - 10/25 20.0 [facility] CHEM PANEL Glucose Lvl 137 70 - 99 10/25 [facility] CHEM PANEL BUN 16 7 - 22 10/25 [facility] CHEM PANEL Creatinine 0.40 0.50 - 10/25 Lvl 1.40 [facility] CHEM PANEL Sodium Lvl 141 135 - 145 10/25 [facility] CHEM PANEL Potassium 3.4 3.5 - 5.1 10/25 Lvl [facility] CHEM PANEL Chloride Lvl 105 95 - 109 10/25 [facility] CHEM PANEL CO2 27 24 - 32 10/25 [facility] CHEM PANEL Phosphorus 3.1 2.5 - 4.5 10/25 [facility] HEMATOLOGY Baso Moderate None Seen 10/25 [place] *ABN* /2015 [facility] (10/25/15 1:39 AM) HEMATOLOGY Polychrom Moderate None Seen 10/25 *ABN* /2015 [facility] (10/25/15 1:39 AM) HEMATOLOGY Plt Morph Normal 10/25 (10/25/15 1:39 AM) /2015 [facility] PARATHYROI Ca Norm WB 1.08 1.05 - 10/25 D PROFILE . [facility] PARATHYROI Ca Ion WB 1.05 1.05 - 10/25 MH D PROFILE 10.08 [facility] CHEM PANEL Lactic Acid 1.0 0.5 - 2.2 10/24 Lvl [facility] CHEM PANEL Phosphorus 3.7 2.5 - 4.5 02 MH /2015 [facility] CHEM PANEL Magnesium 1.7 1.8 - 2.4 02 Lvl [facility] HEMATOLOGY INR 1.18 0.85 - 10/24 MH 1.17 [facility] HEMATOLOGY PT 15.3 12.0 - 10/24 14.7 [facility] HEMATOLOGY PTT 27.8 22.9 - 10/24 MH 35.8 /2015 [facility] PARATHYROI Ca Norm WB 1.08 1.05 - 10/24 D PROFILE 10.08 [facility] PARATHYROI Ca Ion WB 1.08 1.05 - 10/24 D PROFILE . [facility] BLOOD BANK RBC product Product available 10/23 RESULTS (10/22/15 10:44 PM) /2015 [facility] BLOOD BANK Antibody Negative 10/23 RESULTS Scrn (10/22/15 9:04 PM) /2015 [facility] BLOOD BANK ABO/Rh O POS 10/23 RESULTS /2015 [facility] URINE AND UA <=1.0 0.1 - 1.0 10/22 STOOL Urobilinogen /2015 [facility] URINE AND UA WBC 1 0 - 5 10/22 STOOL /2015 [facility] URINE AND UA Leuk Est Negative Negative 10/22 STOOL (10/22/15 2:58 PM) /2015 [facility] URINE AND UA Blood Negative Negative 10/22 STOOL (10/22/15 2:58 PM) [facility] URINE AND UA Bili Negative Negative 10/22 STOOL *NA* /2015 [facility] (10/22/15 2:58 PM) URINE AND UA Sq Epi None Seen 10/22 STOOL /2015 [facility] URINE AND UA Color Light Yellow Yellow 10/22 STOOL *NA* /2015 [facility] (10/22/15 2:58 PM) URINE AND UA Spec Grav 1.009 <=1.030 10/22 STOOL /2015 [facility] URINE AND UA Turbidity Clear Clear 10/22 STOOL (10/22/15 2:58 PM) [facility] URINE AND UA pH 7.0 5.0 - 8.0 10/22 STOOL /2015 [facility] URINE AND UA Glucose 50 mg/dL Negative 10/22 STOOL mg/dL /2015 [facility] URINE AND UA Protein Negative Negative 10/22 STOOL mg/dL mg/dL /2015 [facility] URINE AND UA Ketones Negative Negative 10/22 STOOL mg/dL mg/dL [facility] URINE AND UA Nitrite Negative Negative 10/22 STOOL (10/22/15 2:58 PM) [facility] BACTERIAL MRSA by PCR Negative 10/22 - SEROLOGY (10/22/15 1:20 PM) [facility] CHEM PANEL Ammonia 32.0 <=45.0 10/22 uMol/L [facility] CHEM PANEL Lipase Lvl 160 73 - 393 10/22 [facility] CHEM PANEL Lactic Acid 0.9 0.5 - 2.2 10/22 Lvl /2015 [facility] CHEM PANEL Globulin 2.2 2.0 - 4.0 10/22 [facility] CHEM PANEL A/G Ratio 1.0 0.7 - 1.6 10/22 [facility] CHEM PANEL ALANINE 16 0 - 65 10/22 AMINOTRANSFE /2015 [facility] RASE CHEM PANEL Bili Total 0.4 0.2 - 1.3 10/22 MH /2015 [facility] CHEM PANEL Alk Phos 42 39 - 136 10/22 [facility] CHEM PANEL Bili Direct 0.1 0.0 - 0.3 10/22 [facility] CHEM PANEL Total 4.3 6.4 - 8.4 10/22 Protein /2015 [facility] CHEM PANEL Albumin Lvl 2.1 3.5 - 5.0 / /2015 [facility] CHEM PANEL ASPARTATE 19 0 - 37 10/22 TRANSAMINASE /2016 [facility] CHEM PANEL Bili 0.3 0.0 - 1.0 10/22 Indirect /2016 [facility] ENDOCRINOL Cortisol 3.4 10/22 OGY /2015 [facility] SPECIAL Hgb A1C <3.5 % <=5.6 % 10/22 Result CHEMISTRY /2016 Comment: The [facility] Hgb A1c result of <3.5_ should be interpreted with caution due to possibility of pre analytical error Pathology Reports No Data Provided for This Section Diagnostic Reports Report Value Date Source Humerus 2 views DX EXAM: XR HUMERUS 2 VIEWS 02/04/2018 [facility] DATE: 02/04/2018 4:28 PM CDT Center INDICATION: [...] EXAM: XR RIGHT HUMERUS 2 VIEWS 02/04/2018 [facility] DATE: 02/04/2018 4:33 AM CDT Center INDICATION: [...] EXAM: XR RIGHT ELBOW 3 VIEWS 02/04/2018 [facility] EXAM: XR RIGHT FOREARM 2 VIEWS Center [...] EXAM: XR RIGHT ELBOW 3 VIEWS 02/04/2018 [facility] EXAM: XR RIGHT FOREARM 2 VIEWS Center [...] EXAM: XR RIGHT ELBOW 3 VIEWS 02/04/2018 [facility] EXAM: XR RIGHT FOREARM 2 VIEWS Center [...] Chest 1view DX PROCEDURE: Chest 1view 10/26/2015 [facility] CLINICAL INFORMATION Abnormal chest sounds [...] chest, Oct 24, 2015 02:13:00 AM 2015 [facility] CLINICAL HISTORY: Abnormal chest sounds [...] with subselective embolizations, 2015 at 1532. 10/23/2015 [facility] artery initial VR CLINICAL HISTORY: [...] right common femoral artery, after which a Interior Define wire was advanced through the needle and into the abdominal aorta. Needle was exchanged for a 5 Lithuanian sheath. 5 Lithuanian Diaz B catheter was advanced over the [...] and 200 micrograms fentanyl, for a total [id number] sedation time of 70. COMMERCIAL CREDIT OFFICER: Dr. Howard. FLUOROSCOPY TIME: 15.6 minutes IMPRESSION: 1. Negative for focal active arterial extravasation. 2. Successful empiric Gelfoam embolizations of the right gastric artery, proximal GDA branch leading to the endoscopically placed surgical clip in the duodenum, and GDA. SL: 14 Abdomen/Pelvis CTA CTA Abdomen and Pelvis, 10/22/2015 at 1626. 10/22/2015 [facility] CLINICAL HISTORY: 80-year-old female; upper [...] Chest 1view DX Chest one view: 10/22/2015 [facility] Exam reason: Shortness of Breath [...] Signs Vital Sign Value Date Comments Source Weight 49.091 03/25/2019 [facility] BMI Calculated 17.47 03/25/2019 [facility] Height 167.64 cm 03/25/2019 [facility] Systolic (mm Hg) 142 03/25/2019 [facility] Diastolic (mm Hg) 80 03/25/2019 [facility] Heart Rate 67 03/25/2019 [facility] Respitory Rate 16 03/25/2019 [facility] BMI Calculated 16.66 01/21/2019 [facility] Weight 46.818 01/21/2019 [facility] Height 167.64 cm 01/21/2019 [facility] Respitory Rate 16 01/21/2019 [facility] Heart Rate 76 01/21/2019 [facility] Systolic (mm Hg) 130 01/21/2019 [facility] Diastolic (mm Hg) 71 01/21/2019 [facility] BMI Calculated 16.98 12/30/2018 [facility] Weight 47.727 12/30/2018 [facility] Height 167.64 cm 12/30/2018 [facility] Systolic (mm Hg) 109 12/30/2018 [facility] Diastolic (mm Hg) 61 12/30/2018 [facility] Respitory Rate 16 12/30/2018 [facility] Heart Rate 69 12/30/2018 [facility] Temperature Oral (F) 99.2 F 02/06/2018 [facility] Heart Rate 98 02/06/2018 [facility] Respitory Rate 18 02/06/2018 [facility] Systolic (mm Hg) 163 02/06/2018 [facility] Diastolic (mm Hg) 90 02/06/2018 [facility] Heart Rate 97 02/06[facility]2018 [facility] [place] Resp[facility] Rate 17 02/06/2018 [facility] Systolic (mm Hg) 140 02/06/2018 [facility] Diastolic (mm Hg) 73 02/06/2018 [facility] Temperature Oral (F) 98.5 F 02/06/2018 [facility] Respitory Rate 18 02/06/2018 [facility] Heart Rate 85 02/06/2018 [facility] Temperature Oral (F) 97.8 F 02/06/2018 [facility] Systolic (mm Hg) 132 02/06/2018 [facility] Diastolic (mm Hg) 80 02/06/2018 [facility] Height 167.64 cm 02/05/2018 [facility] Weight 47.273 02/05/2018 [facility] BMI Calculated 16.82 02/05/2018 [facility] BMI Calculated 18.44 02/04/2018 [facility] Weight 51.818 02/04/2018 [facility] Height 167.64 cm 02/04/2018 [facility] Temperature Oral (F) 98.6 F 08/24/[address] [facility] Heart Rate 75 08/24/[address] [facility] Respitory Rate 20 08/24/[address] [facility] Systolic (mm Hg) 177 08/24/[address] [facility] Diastolic (mm Hg) 86 08/24/[address] [facility] Height 66 08/23/[address] [facility] Weight 96.43 08/23/[address] [facility] Respitory Rate 18 10/28/2015 [facility] Systolic (mm Hg) 124 10/28/2015 [facility] Diastolic (mm Hg) 68 10/28/2015 [facility] Temperature Oral (F) 98.1 F 10/28/2015 [facility] Heart Rate 74 10/28/2015 [facility] Respitory Rate 20 10/28/2015 [facility] Systolic (mm Hg) 121 10/28/2015 [facility] Diastolic (mm Hg) 72 10/28/2015 [facility] Heart Rate 79 10/28/2015 [facility] Temperature Oral (F) 97.9 F 10/28/2015 [facility] Respitory Rate 18 10/28/2015 [facility] Heart Rate 76 10/28/2015 [facility] Temperature Oral (F) 97.6 F 10/28/2015 [facility] Systolic (mm Hg) 110 10/28/2015 [facility] Diastolic (mm Hg) 67 10/28/2015 [facility] Height 152.4 cm 10/27/2015 [facility] Height 165.1 cm 10/22/2015 [facility] Weight 47.001 10/22/2015 [facility] BMI Calculated 17.24 10/22/2015 [facility] Encounters Location Location Encounter Encounter Reason Attending ADM DC Status Source Details Type Number For Provider Date Date Visit [facility] Inpatient [id number] Matthieu 10/22 10/28 [facility] Kohler /2015 [facility] [id number] 08/23 08/[address] [facility] Inpatient /2016 [place] [facility] Wilyo [facility] Inpatient [id number] Cerena 02/04 02/06 [facility] Marvell Laguerre /2017 [facility] MNA Phone [id number] 08/20 08/[facility]2017 [facility] MNA Phone [id number] 09/17 09/19 [facility]rology Message /2018 [facility] Outpatient [id number] DEN 10/19 [facility] Outpatient [id number] Den 12/30 [facility] MNA Outpatient [id number] Den 12/30 12/31 [facility] Neurology Kre /2018 [facility] Outpatient [id number] Den 01/21 Active [facility] MNA Outpatient [id number] Den 01/21 01/22 [facility] Neurology Krell /2018 [facility] Outpatient [id number] Den 02/09 [facility] MNA Ambulatory [id number] Den 02/09 02/09 [facility] Outpatient [id number] Den 03/25 Active [facility] Marvell MNA Outpatient [id number] Den 03/25 03/26 [facility] Outpatient [id number] DEN 03/31 Active [facility] MNA Ambulatory [id number] Den 03/31 03/31 [facility] [place] Outpatient [id number] Den 07/29 Active [facility] Marvell Procedures Procedure Code Date Perfomer Comments Source Chest Single View [id number] 08/24/[address] [facility] Chest Single View [id number] 08/23/[address] [facility] Influenza Type B 08/23/[address] [facility] Influenza Type A 08/23/[address] [facility] Count 08/23/[address] [facility] Anaerobic Blood 08/23/[address] [facility] [place] Aerobic Blood 08/23/[address] [facility] 08/23/[address] [facility] Appendectomy [id number] [facility] Arthroscopy of [id number] [facility] Neuro knee Elbow maneuver [id number] [facility] [id number] [facility] Neuro Repair of shoulder [id number] [facility] Neuro Appendectomy [id number] [facility] Arthroscopy of [id number] [facility] Elbow maneuver [id number] [facility] Hysterectomy [id number] [facility] Repair of shoulder [id number] [facility] Assessment and Plan Assessment and Plan Date Source Extracted from:Title: ORS Progress Note 02/06/2018 [facility] Author: Bertha Terrell MD Date: 02/06/18 Ortho [...] clears PT and medically cleared. Please page [phone] with questions from 6:30 am - 7 pm. Please call [employer] [phone] ) with questions from 7 pm - 6:30 am or in emergencies. Bertha Terrell Orthopaedic Surgery PGY-1 MSO [phone] Pager # [phone] Extracted from:Title: History and Physical Author: Greyson [...] Reg Smoking Cessation Counseling No entered on: 03/25/19 1may release medical information tp -Helio Odonnell, Son- Theodore Odonnell, Son- Rob Odonnell Social History TypeResponse 02/04/2018 [facility] Substance Abuse Use: None. IV drug use: [...] entered on: 02/04/18 Social History TypeResponse 10/22/2015 [facility] Substance Abuse Use: None. IV [...] No Query Response Date Recorded Comment 09/14/1955 JORGE ALBERTO Zavala Patiencekhushbu Alcohol Use? No August 23, 2017 6:54pm CD- Drugs? No August 23, 2017 6:54pm Query Response Start Date Stop Date Smoking Status Former smoker September 14, 1955 September 14, 1989 Family History Value Date Source Query Response Instance Date Recorded Comment 08/24/2017 JORGE ALBERTO Zavala Patiencekhushbu Medical History Hypertension Sister August 23, 2017 6:54pm Medical History Hypertension Mother August 23, 2017 6:54pm Medical History Hypertension June 28, 2015 10:29pm Advance Directives Order Name Results Value Date Source Advance Directives Advance Directives Advance Directive Response Recorded Date/Time 08/24/2017 JORGE ALBERTO Thomas - Does Patient Have Living Will Job Yes August 24, 2017 6:00am Durable Power of Trim Technician for Health Care Yes August 23, 2017 6:54pm Would you like additional information No August 23, 2017 6:54pm Functional Status No Data Provided for This Section
--- OUTSIDE RECORDS SUMMARY | 2019-04-25 12:36 | XMS REPORT | Summary of Care ---
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
--- OUTSIDE RECORDS SUMMARY | 2019-04-25 12:36 | XMS REPORT | Summary of Care ---
:1935 Author Organization [facility] Neurology [place] Address [address] [place] [address]- Encounter HQ Encntr_mariangel(FIN) [id number] Date(s): 03/25/19 - 03/25/19 [facility] [address] [place] [address]- [phone] Discharge Disposition: Home or Self Care Attending Physician: Triston Shrestha MD Referring Physician: Matthieu Kohler MD Vital Signs Most recent to oldest [Reference Range]: 1 Height 167.64 cm (03/25/19 1:58 PM) Blood Pressure [90-140/60-90 mmHg] 142/80 mmHg *HI* (03/25/19 1:58 PM) Respiratory Rate [14-20 BRMIN] 16 BRMIN (03/25/19 1:58 PM) Peripheral Pulse Rate [60-100 bpm] 67 bpm (03/25/19 1:58 PM) Weight 49.091 kg (03/25/19 1:58 PM) Body Mass Index 17.47 m2 (03/25/19 1:58 PM) Problem List Condition Effective Dates Status [...] Status sulfa drugs Active Augmentin Active Medications acetaminophen-oxyCODONE 325 mg-7.5 mg oral tablet, extended release 1 tab, PO, PRN, 0 Refill(s) Start Date: 03/25/19 Status: Ordered Results No data available for [...] medical information tp -Helio Odonnell, Son- Theodore Blas, Son- Rob Blas Assessment and Plan No data available for this section
--- OUTSIDE RECORDS SUMMARY | 2019-04-25 12:36 | XMS REPORT | Summary of Care ---
:1935 Author Organization [facility] Neurology [place] Address [address] [place] [address]- Encounter HQ Encntr_alias(FIN) [id number] Date(s): 03/31/19 - 03/31/19 [facility] [address] [place] [address]- [phone] Attending Physician: Triston Shrestha MD Referring Physician: [...]
[2019-04-25] MEDS ORDERED: NA CHLORIDE 0.9% 500 ML ONE (13:19)
[2019-04-25] MEDS ORDERED: ONDANSETRON 4 MG/2 ML VIAL ONE (13:19)
[2019-04-25 13:41] LABS: Absolute Lymphocytes (CBC) 1.4 K/uL (0.7-4.9); Basophils % 0.4 % (0-1.3); Hematocrit 36.1 % (36.0-45.0); Lymphocytes % 13.1 % (15.3-44.8); MPV 7.6 fL (7.6-11.3); RBC Red Blood Cell Count 3.77 M/uL (3.86-4.86)
[2019-04-25 13:55] LABS: Bilirubin Direct 0.2 mg/dL (0-0.2); Bilirubin Total 0.5 mg/dL (0.2-1.0); Potassium 3.7 mmol/L (3.5-5.1); Protein, Total 7.4 g/dL (6.4-8.2)
[2019-04-25 13:56] LABS: Albumin 3.4 g/dL (3.4-5.0)
--- NOTE | 2019-04-25 14:42 | RAD REPORT ---
EXAM DESCRIPTION: CTAbdomen Pelvis W Contrast - 04/25/2019 2:30 pm CLINICAL HISTORY: Abdominal pain. vomiting/diarrhea;Abd pain COMPARISON: CT ABD PELVIS W CONTRAST dated 03/26/2013; CT ABD PELVIS W CONTRAST dated 04/18/2009; CT AB D PELVIS W CONTRAST dated 12/30/2007 TECHNIQUE: Biphasic CT imaging of the abdomen and pelvis was performed with 100 ml non-ionic IV cont rast. All CT scans are performed using dose optimization technique as appropriate and may include automated exposure control or mA/KV adjustment according to patient size. FINDINGS: The lung bases are clear. No aggressive liver mass seen. Several gallstones are present in the gallbladder. Common bile duct an d pancreatic duct are mildly prominent. The spleen, adrenal glands within normal limits. Small cyst i s present lateral left kidney measuring 12-13 mm, benign appearance. No aggressive renal lesions or h ydronephrosis seen. No bowel obstruction, free air, free fluid or abscess. Moderate stool is noted throughout the colon. Aortic atherosclerosis is also present. The appendix is not identified as a discrete structure, howev er, no secondary findings of appendicitis are identified. No evidence of significant lymphadenopath y. Moderate lumbar degenerative changes. IMPRESSION: Cholelithiasis. Mild prominence of the common bile duct and pancreatic duct noted. If th e patient has clinical and/or laboratory values suggesting choledocholithiasis or biliary obstruction , MRCP may be of value.
[2019-04-25] MEDS ORDERED: HYDROCODONE/APAP 10/325 TAB ONE (15:56)
--- NOTE | 2019-04-25 18:04 | RAD REPORT ---
EXAM DESCRIPTION: MRI - Cholangiogram - 04/25/2019 5:54 pm CLINICAL HISTORY: Abdominal pain, vomiting COMPARISON: Abdomen ultrasound, abdomen CT same date TECHNIQUE: Axial and coronal heavily T2 weighted sequences were obtained. Coronal T2 HASTE fat satur ation static and coronal multiplane reconstruction imaging generated and reviewed. Horizontal and ronald tical axis rotational views obtained using maximum intensity projection (MIP) protocol. FINDINGS: Well filled gallbladder is present. Gallstone filling defects are seen in the fundus. Gall stones were confirmed at sonography of the same date. No intrahepatic biliary tree dilatation identif ied. Extrahepatic biliary tree is dilated to 13 mm. This tapers only slightly into the head of the pa ncreas measuring 9 mm. Pancreatic duct in the head of the pancreas is also dilated to 4 mm. No duct s tone is identified. No stricture or mass seen. Dilation extends to the level of the ampulla. A small mass or stone fixed at the ampulla would be possible. IMPRESSION: Extrahepatic biliary tree dilatation the 13 mm without a stricture, mass or stone identi fiable. A small mass or stricture at the ampulla is possible. Dilatation of the pancreatic duct in the head of the pancreas measuring 4 mm. Gallstones in the fundus of the gallbladder.
--- NOTE | 2019-04-25 18:07 | RAD REPORT ---
EXAM DESCRIPTION: US - Abdomen Exam Limited - 04/25/2019 5:16 pm CLINICAL HISTORY: Abdominal pain, right upper quadrant pain COMPARISON: None. FINDINGS: Some of the images in the PACs archives contain the incorrect name of the patient. There w as confirmed the proper patient was imaged. Gallbladder is well filled but not dilated. Multi stone cholelithiasis present with sludge as well. N o wall thickening or pericholecystic fluid. Common bile duct is dilated to 10-12 mm with no common du ct stone identified. IMPRESSION: Dilated common bile duct to 10-12 mm with no duct stone, stricture or mass identifiable. Multi stone cholelithiasis without wall thickening or pericholecystic fluid.
--- NOTE | 2019-04-25 18:31 | ER ---
Nurse's Notes [facility] Name: Rosina Odonnell Age: 84 yrs Sex: Female : 1935 Arrival Date: 04/25/2019 Time: 12:29 Bed 27 Private MD: Casey Kohler C Diagnosis: Vomiting, unspecified;Diarrhea, unspecified;Nonspecific dilation of common bile duct and pancreatic duct Presentation: 04/25 12:44 Presenting complaint: Patient states: i had been vomiting and have diarrhea since yesterday and today i feel weak; reports abd pain; reports chills;. Transition of care: patient was not received from another setting of care. Onset of symptoms was April 25, 2019. Risk Assessment: Do you want to hurt yourself or someone else? Patient reports no desire to harm self or others. Initial Sepsis Screen: Does the patient meet any 2 criteria? No. Patient's initial sepsis screen is negative. Does the patient have a suspected source of infection? No. Patient's initial sepsis screen is negative. Care prior to arrival: None. 12:44 Method Of Arrival: Ambulatory 12:44 Acuity: [place] 3 Triage Assessment: 15:08 General: Appears in no apparent distress. uncomfortable, Behavior is calm, cooperative. rv Pain: Complains of pain in abdomen. EENT: No signs and/or symptoms were reported regarding the EENT system. Neuro: Level of Consciousness is awake, alert, obeys commands, Oriented to person, place, time, situation. Cardiovascular: Patient's skin is warm and dry. Respiratory: Airway is patent. GI: Reports upper abdominal pain. : No signs and/or symptoms were reported regarding the genitourinary system. Derm: Skin is intact. Musculoskeletal: No signs and/or symptoms reported regarding the musculoskeletal system. Historical: - Allergies: 12:45 Augmentin ES-600; hj 12:45 Sulfa (Sulfonamide Antibiotics); hj - PMHx: 12:45 Asthma; Depression; Hypertension; MS; osteoarthritis; Seizures; hj - Immunization history:: Adult Immunizations up to date. - Social history:: Smoking status: unknown. - Family history:: not pertinent. - Ebola Screening: : No symptoms or risks identified at this time. - Hospitalizations: : No recent hospitalization is reported. Screenin:08 Abuse screen: Denies threats or abuse. Denies injuries from another. Nutritional rv screening: No deficits noted. Tuberculosis screening: No symptoms or risk factors identified. Fall Risk None identified. Assessment: 15:10 General: Appears in no apparent distress. uncomfortable, Behavior is calm, cooperative. rv Pain: Complains of pain in abdomen. Neuro: Level of Consciousness is awake, alert, obeys commands, Oriented to person, place, time, situation. Cardiovascular: Patient's skin is warm and dry. Respiratory: Airway is patent. GI: Reports nausea, vomiting. GI: Abdomen is flat, Bowel sounds present X 4 quads. Abd is soft and non tender X 4 quads. : No signs and/or symptoms were reported regarding the genitourinary system. EENT: No signs and/or symptoms were reported regarding the EENT system. Derm: Skin is intact. Musculoskeletal: No signs and/or symptoms reported regarding the musculoskeletal system. Vital Signs: 12:46 BP 115 / 71; Pulse 73; Resp 18; Temp 97.6(TE); Weight 46.27 kg; Height 5 ft. 5 in. (165.10 cm); Pain 6/10; 15:09 BP 129 / 63; Pulse 71; Resp 17; Pulse Ox 98% on R/A; rv 17:17 BP 102 / 65; Pulse 70; Resp 16; Temp 98; Pulse Ox 98% on R/A; rv 19:15 BP 121 / 66; Pulse 69; Resp 16; Temp 98; Pulse Ox 97% on R/A; rv 12:46 Body Mass Index 16.97 (46.27 kg, 165.10 cm) ED Course: 01:30 Inserted saline lock: 22 gauge in left forearm, using aseptic technique. rv 12:29 Patient arrived in ED. rg4 12:30 Casey Kohler MD is Private Physician. rg4 12:45 Triage completed. hj 12:45 Arm band placed on left wrist. hj 12:53 Hailey Padilla, RN is Primary Nurse. ca1 13:09 Emil Pham MD is Attending Physician. rn 13:12 Radiology exam delayed due to lab results not completed at this time. (BUN/Creatinine) jg6 IV insertion attempt and/or patient not having appropriate IV at this time. 14:30 CT completed. Patient tolerated procedure well. Patient moved to CT. Patient moved back ky from CT. 14:30 CT Abd/Pelvis - IV Contrast Only In Process Unspecified. EDMS 15:09 Patient has correct armband on for positive identification. Bed in low position. Call rv light in reach. Side rails up X 1. anthropology instructor on. Pulse ox on. NIBP on. 17:23 US Abdomen Limited In Process Unspecified. EDMS 17:38 Cholangiogram In Process Unspecified. EDMS 18:30 Ramsey Watters MD is Referral Physician. rn 19:13 No provider procedures requiring assistance completed. IV discontinued, intact, rv bleeding controlled, No redness/swelling at site. Pressure dressing applied. Administered Medications: 13:30 Drug: NS 0.9% 500 ml Route: IV; Rate: bolus; Site: left forearm; ca1 17:17 Follow up: IV Status: Completed infusion; IV Intake: 500ml rv 13:32 Drug: Zofran 4 mg Route: IVP; Site: left forearm; ca1 17:17 Follow up: Response: No adverse reaction rv 15:52 Drug: [place] 10 mg-325 mg 1 tabs Route: PO; rv 16:05 Follow up: Response: RASS: Alert and Calm (0) rv 19:12 Follow up: Response: RASS: Alert and Calm (0) rv 18:45 Drug: LoMOTIL 2 tabs Route: PO; rv 19:10 Follow up: Response: Medication administered at discharge. rv Intake: 17:17 IV: 500ml; Total: 500ml. rv Outcome: 18:30 Discharge ordered by MD. rn 19:13 Discharged to home via wheelchair, with family. rv 19:13 Condition: good 19:13 Discharge instructions given to patient, Instructed on discharge instructions, follow up and referral plans. medication usage, Demonstrated understanding of instructions, follow-up care, medications, Prescriptions given X 1. 19:14 Patient left the ED. rv Signatures: Dispatcher [employer] EDMS Emli Pham MD MD rn Joaquin, Henry RN Jenifer Dupont4 Baljit Grant Ronaldo, RN RN rv Citlaly Laboy jg6 Hailey Padilla RN RN ca1 Corrections: (The following items were deleted from the chart) 12:46 12:44 Presenting complaint: Patient states: i had been vomiting and have diarrhea since yesterday and today i feel weak; denies pain; reports chills; 12:48 12:46 46.27 kg; Height 5 ft. 5 in.; BMI: 16.9; Pain 02/21; [facility]
--- NOTE | 2019-04-25 18:32 | EDPHYS ---
Physician Documentation [facility] Name: Rosina Odonnell Age: 84 yrs Sex: Female : 1935 Arrival Date: 04/25/2019 Time: 12:29 Bed 27 Private MD: Casey Kohler C ED Physician Emil Pham HPI: 04/25 13:29 This 84 yrs old Female presents to ER via Ambulatory with complaints of rn Vomiting/Diarrhea. 13:29 The patient presents to the emergency department with nausea, vomiting, diarrhea, rn abdominal pain. Onset: The symptoms/episode began/occurred yesterday. Possible causes: unknown. The symptoms are aggravated by nothing. The symptoms are alleviated by nothing. Severity of symptoms: At their worst the symptoms were mild in the emergency department the symptoms are unchanged. The patient has not experienced similar symptoms in the past. The patient has not recently seen a physician. Reports nausea/vomiting/diarrhea since yesterday, no fever, + chills, + generalized weakness and decreased appetite.. Historical: - Allergies: 12:45 Augmentin ES-600; hj 12:45 Sulfa (Sulfonamide Antibiotics); hj - PMHx: 12:45 Asthma; Depression; Hypertension; MS; osteoarthritis; Seizures; hj - Immunization history:: Adult Immunizations up to date. - Social history:: Smoking status: unknown. - Family history:: not pertinent. - Ebola Screening: : No symptoms or risks identified at this time. - Hospitalizations: : No recent hospitalization is reported. ROS: 13:29 Constitutional: Negative for fever, chills, and weight loss, Eyes: Negative for injury, rn pain, redness, and discharge, Neck: Negative for injury, pain, and swelling, Cardiovascular: Negative for chest pain, palpitations, and edema, Respiratory: Negative for shortness of breath, cough, wheezing, and pleuritic chest pain, Abdomen/GI: + abd pain/nausea/vomiting/diarrhea MS/Extremity: Negative for injury and deformity, Skin: Negative for injury, rash, and discoloration, Neuro: + generalized weakness Exam: 13:29 Constitutional: This is a well developed, well nourished patient who is awake, alert, rn and in no acute distress. Head/Face: Normocephalic, atraumatic. ENT: dry MM Cardiovascular: Regular rate and rhythm with a normal S1 and S2. No gallops, murmurs, or rubs. Normal PMI, no JVD. No pulse deficits. Respiratory: Lungs have equal breath sounds bilaterally, clear to auscultation and percussion. No rales, rhonchi or wheezes noted. No increased work of breathing, no retractions or nasal flaring. Abdomen/GI: soft, + mild mid abdominal tenderness MS/ Extremity: Pulses equal, no cyanosis. Neurovascular intact. Full, normal range of motion. Equal circumference. Neuro: Awake and alert, GCS 15, oriented to person, place, time, and situation. Cranial nerves II-XII grossly intact. Motor strength 5/5 in all extremities. Sensory grossly intact. Cerebellar exam normal. Vital Signs: 12:46 BP 115 / 71; Pulse 73; Resp 18; Temp 97.6(TE); Weight 46.27 kg; Height 5 ft. 5 in. (165.10 cm); Pain 6/10; 15:09 BP 129 / 63; Pulse 71; Resp 17; Pulse Ox 98% on R/A; rv 17:17 BP 102 / 65; Pulse 70; Resp 16; Temp 98; Pulse Ox 98% on R/A; rv 19:15 BP 121 / 66; Pulse 69; Resp 16; Temp 98; Pulse Ox 97% on R/A; rv 12:46 Body Mass Index 16.97 (46.27 kg, 165.10 cm) MDM: 13:09 Patient medically screened. rn 18:27 Differential diagnosis: Nonspecific abd pain, cholecystitis, pancreatitis, viral rn gastroenteritis, gastroenteritis. Data reviewed: vital signs, nurses notes, lab test result(s), radiologic studies, CT scan, MRI, ultrasound, and as a result, I will discharge patient. Counseling: I had a detailed discussion with the patient and/or guardian regarding: the historical points, exam findings, and any diagnostic results supporting the discharge/admit diagnosis, lab results, radiology results, the need for outpatient follow up, to return to the emergency department if symptoms worsen or persist or if there are any questions or concerns that arise at home. Response to treatment: the patient's symptoms have markedly improved after treatment, and as a result, I will discharge patient. 18:27 Special discussion: I discussed with the patient/guardian in detail that at this point rn there is no indication for admission to the hospital. It is understood, however, that if the symptoms persist or worsen the patient needs to return immediately for re-evaluation. Based on the presenting symptoms and work-up in the emergency department, I discussed in detail the need to arrange with the PCP or specialist an outpatient procedure, esophagogastroduodenoscopy by the GI specialist, ERCP. Based on the history and exam findings, there is no indication for further emergent testing or inpatient evaluation. I discussed with the patient/guardian the need to see the asbestos siding installer for further evaluation of the symptoms. ED course: Pt with unclear etiology of dilated common bile duct and pancreatic duct, no stone identified, no mass. Normal LFTs and lipase. Will dc home with recommendation to f/u with Dr. Watters, has seen Dr. Watters, and will f/u with Dr. Kohler.. 18:38 ED course: Explained to patient and need for direct visualization of ampulla rn and ERCP by Dr. Watters given both ducts dilated. . 04/25 13:10 Order name: Basic Metabolic Panel; Complete Time: 14:58 rn 04/25 13:10 Order name: CBC with Diff; Complete Time: 14:58 rn 04/25 13:10 Order name: Creatinine for Radiology; Complete Time: 15:11 rn 04/25 13:10 Order name: Hepatic Function; Complete Time: 14:58 rn 04/25 13:10 Order name: Lipase; Complete Time: 14:58 rn 04/25 13:10 Order name: CT Abd/Pelvis - IV Contrast Only; Complete Time: 14:58 rn 04/25 13:10 Order name: IV Saline Lock; Complete Time: 13:35 rn 04/25 13:10 Order name: Labs collected and sent; Complete Time: 13:35 rn 04/25 15:09 Order name: US Abdomen Limited; Complete Time: 18:15 rn 04/25 16:37 Order name: Cholangiogram; Complete Time: 18:15 EDMS Administered Medications: 13:30 Drug: NS 0.9% 500 ml Route: IV; Rate: bolus; Site: left forearm; ca1 17:17 Follow up: IV Status: Completed infusion; IV Intake: 500ml rv 13:32 Drug: Zofran 4 mg Route: IVP; Site: left forearm; ca1 17:17 Follow up: Response: No adverse reaction rv 15:52 Drug: [place] 10 mg-325 mg 1 tabs Route: PO; rv 16:05 Follow up: Response: RASS: Alert and Calm (0) rv 19:12 Follow up: Response: RASS: Alert and Calm (0) rv 18:45 Drug: LoMOTIL 2 tabs Route: PO; rv 19:10 Follow up: Response: Medication administered at discharge. rv Disposition: 04/25/19 18:30 Discharged to Home. Impression: Vomiting, unspecified, Diarrhea, unspecified, Nonspecific dilation of common bile duct and pancreatic duct. - Condition is Stable. - Discharge Instructions: Diarrhea, Adult, Nausea and Vomiting, Adult, Magnetic Resonance Cholangiopancreatogram, Esophagogastroduodenoscopy. - Prescriptions for Zofran ODT 4 mg Oral tablet,disintegrating - place 1 tablet by TRANSLINGUAL route every 8 hours As needed; 20 tablet. - Medication Reconciliation Form, Thank You Letter, Antibiotic Education, Prescription Opioid Use form. - Follow up: Ramsey Watters MD; When: As needed; Reason: Recheck today's complaints, Re-evaluation by your physician. - Problem is new. - Symptoms have improved. Signatures: Dispatcher [employer] EDMS Emil Pham MD MD rn Joaquin, Henry, RN RN hj Vicente, Ronaldo, RN RN rv Acob, Cheryl RN MARIELLA ca1 Corrections: (The following items were deleted from the chart) 19:14 18:30 04/25/2019 18:30 Discharged to Home. Impression: Vomiting, unspecified; Diarrhea, rv unspecified; Nonspecific dilation of common bile duct and pancreatic duct. Condition is Stable. Forms are Medication Reconciliation Form, Thank You Letter, Antibiotic Education, Prescription Opioid Use. Follow up: Ramsey Watters; When: As needed; Reason: Recheck today's complaints, Re-evaluation by your physician. Problem is new. Symptoms have improved. rn
[2019-04-25] MEDS ORDERED: DIPHENOX/ATROP SULF 1 TAB PO ONE (19:05)
[2019-04-25 23:52] VITALS: O2SAT 98
[2019-04-25 23:54] VITALS: BP 102/65; TEMP 98
== END 2019-04-25 19:14 | disposition home or self-care (01) ==
LOC: ER 12:28
DX: K83.8 Other specified diseases of biliary tract (principal); K86.89 Other specified diseases of pancreas; R11.2 Nausea with vomiting, unspecified; R19.7 Diarrhea, unspecified; Z88.1 Allergy status to other antibiotic agents; Z88.2 Allergy status to sulfonamides
CPT/HCPCS: 96361; 85025; 80048; 36415; 80076; 83690; 74177; 74181; 76705; 96374; 99285; Q9967; J2405

== ENCOUNTER 2020-11-22 21:23 | Emergency (ER) | payer OTHER ==
--- OUTSIDE RECORDS SUMMARY | 2020-11-22 21:28 | XMS REPORT | Continuity of Care Document ---
:1935 Author Organization [facility] t Address [address] [place] [address] Care Team Providers Name Role Phone Ramsey Shrestha Attending Clinician Theresa Cota DO Attending Clinician Avani Laguerre Attending Clinician Ashlee Rosa Attending Clinician Avani Laguerre Admitting Clinician Ashlee Rosa Admitting Clinician Problems Condition Condition Condition Status Onset Resolution Last Treating Co mments Source Name Details Category Date Date Treatment Clinician Date OPEN RIGHT Diagnosis Active 2018-02-09 Memoria HUMERUS FX 5-23 19:37:00 l OPEN 00:00: [place] RIGHT 00 HUMERUS FX Active 02/03/2018 [facility] Common Problem Active 2020-11-18 Memor ia peroneal 3-16 01:55:42 l nerve Common 00:00: Raymond lesion peroneal 00 (disorder) nerve lesion (disorder) Active 11/27/2016 Problem 11/18/2020 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 Anemia Problem Resolve 2020-11-18 Edinson david (disorder) d 01:55:42 l Anemia [place] (disorder) Resolved Problem 11/18/2020 [facility] Anxiety Problem Resolve 2020-11-18 Mem oria (finding) d 01:55:42 l Anxiety [place] (finding) Resolved Problem 11/18/2020 [facility] Asthma Problem Resolve 2020-11-18 Edinson david (disorder) d 01:55:42 l Asthma [place] (disorder) Resolved Problem 11/18/2020 [facility] Depressive Problem Resolve 2020-11-18 Memoria disorder d 01:55:42 l (disorder) [place] n Depressive disorder (disorder) Resolved Problem 11/18/2020 [facility] Hypertensi Problem Resolve 2020-11-18 Memoria ve d 01:55:42 l disorder, Raymond systemic Hypertensi arterial ve (disorder) disorder, systemic arterial (disorder) Resolved Problem 11/18/2020 [facility] Hyperthyro Problem Resolve 2020-11-18 Memoria idism d 01:55:42 l (disorder) [place] n Hyperthyro idism (disorder) Resolved Problem 11/18/2020 [facility] Multiple Problem Resolve 2020-11-18 Me moria sclerosis d 01:55:42 l (disorder) Multiple He rmann sclerosis (disorder) Resolved Problem 11/18/2020 [facility] Seizure Problem Resolve 2020-11-18 Mem oria (finding) d 01:55:42 l Seizure [place] (finding) Resolved Problem 11/18/2020 [facility] Vertigo Problem Active 2020-11-18 Edinson david (finding) 01:55:42 l Vertigo [place] (finding) Active Problem 11/18/2020 [facility] Migraine Problem Active 2020-11-18 Mem oria (disorder) 01:55:42 l Migraine [place] n (disorder) Active Problem 11/18/2020 [facility] GASTROINTE Diagnosis Active 2015-11-01 Memoria STINAL 21:55:00 l HEMORRHAGE [place] n , GASTROINTE UNSPECIFIE STINAL D HEMORRHAGE , UNSPECIFIE D Active [facility] ANEMIA, Diagnosis Active 2015-11-01 Me moria UNSPECIFIE 21:55:00 l D ANEMIA, [place] UNSPECIFIE D Active [facility] UNSP Diagnosis Active 2018-02-09 Mem oria FRACTURE 19:37:00 l OF SHAFT UNSP Raymond OF FRACTURE HUMERUS, OF SHAFT UNSP OF HUMERUS, UNSP Active [facility] Exacerbati Problem Resolve 2017-2020-11-18 2020-11-18 Memoria on of d 5-12 01:55:42 01:55:42 l multiple 00:00: Raymond sclerosis Exacerbati 00 (disorder) on of multiple sclerosis (disorder) Resolved 01/23/2017 Problem 11/18/2020 [facility] Allergies, Adverse Reactions, Alerts Allergy Allergy Status Severity Reaction(s) Onset Inactive Treating Comm ents Source Name Type Date Date Clinician sulfa sulfa Active Memoria drugs drugs l [place] Augmenti Augmenti Active Memori a n n l [place] Social History Social Habit Start Date Stop Date Quantity Comments Source Social History 2018-02-04 2018-02-04 [facility] Lavonne elliott 16:15:22 16:15:22 Medications Ordered Filled Start Stop Current Ordering Indication Dosage Frequency Signature Comments Components Source Medication Medication Date Date Medication? Clinician (SIG) Name Name lasmiditan 2019-09 Yes 50 mg = 1 Me moria 50 MG Oral 1-12 tab, PO, l Tablet 20:30: PRN, PRN Raymond [Reyvow] 00 migraine, # 8 tab, 2 Refill(s), Pharmacy: [facility] #[id number], 162.56, cm, 10/06/19 14:23:00 [employer], Height, 50, kg, 10/06/19 14:23:00 [employer], Weight Levetiracet 2019-09 Yes 750 mg = 1 Memoria am 750 MG 1-12 tab, PO, l Oral Tablet 20:30: BID, # 180 [place] 00 tab, 1 Refill(s), Pharmacy: [facility] #[id number], 162.56, cm, 01/23/20 14:23:00 [employer], Height, 50, kg, 10/06/19 14:23:00 [employer], Weight Reyvow 50 Yes 50 mg = 1 Mem oria mg oral 7-23 tab, PO, l tablet 19:10: PRN, PRN [place] 00 migraine, # 8 tab, 2 Refill(s), Pharmacy: [facility] #[id number], 162.56, cm, 10/06/19 14:23:00 [employer], Height, 50, kg, 10/06/19 14:23:00 [employer], Weight Levetiracet Yes See Memori a am 750 MG 3-30 Instructio l Oral Tablet 15:45: ns, # 480 H ermann 43 tab, TAKE 1 TABLET BY MOUTH TWICE DAILY, Pharmacy: [facility] #[id number] pregabalin Yes 100 mg = 1 M emoria 100 MG Oral 1-23 cap, PO, l Capsule 20:57: Daily, 0 [place] n [Lyrica] 00 Refill(s) 12 HR 2018- Yes 1 tab, PO, Memori a Acetaminoph 7-12 PRN, 0 l en 325 MG / 19:31: Refill(s) H ermann Oxycodone 00 Hydrochlori de 7.5 MG Extended Release Oral Tablet duloxetine Yes 60 mg = 1 Me moria 60 MG 5-10 cap, PO, l Enteric 19:00: BID, 0 Raymond Coated 00 Refill(s) Capsule [Cymbalta] carvedilol 2018- Yes 12.5 mg = Me moria 12.5 mg 5-10 1 tab, PO, l oral tablet 19:00: BID, # 180 [place] 00 tab, 0 Refill(s) Amlodipine 2018- Yes 5 mg = 1 Mem oria 5 MG Oral 5-10 tab, PO, l Tablet 19:00: Daily, # [place] [Norvasc] 00 30 tab, 0 Refill(s) Levetiracet 2018- No 750 mg = 1 Memoria am 750 MG 1-03 tab, PO, l Oral Tablet 19:00: BID, X 90 H ermann [Keppra] day, # 180 tab, 1 Refill(s), Pharmacy: [place] [id number] Levetiracet Yes 750 mg = 1 Memoria am 750 MG 5-26 tab, PO, l Oral Tablet 16:13: BID, 0 Herm lori [Keppra] 00 Refill(s) enoxaparin Yes 40 mg = Edinson david 40 mg/0.4 5-26 0.4 mL, l mL 16:07: SUB-Q, [place] subcutaneou 00 [id number], s solution X 21 day, # 8 mL, 0 Refill(s), Pharmacy: [facility] [id number] Ergocalcife Yes 50,000 Edinson david rol 16907 5-26 IntlUnit = l UNT Oral 16:07: 1 cap, PO, Her pearson Capsule 00 Q7D, # 5 cap, 0 Refill(s), Pharmacy: [place] [place] [id number] Calcium Yes 1 tab, Memoria Carbonate 5-26 CHEW, BID, l 1250 MG / 16:07: # 60 tab, Her pearson Cholecalcif 00 0 lucia 400 Refill(s), UNT Pharmacy: [facility] [place] [id number] oxyCODONE 5 No Notes: Edinson david mg oral -26 (Same as: l tablet 15:42: Roxicodone Cassidy nn 00 ) Oxycodone No Notes: Memori a Hydrochlori 5-26 (Same as: l de 5 MG 00:32: Roxicodone Herm lori Oral Tablet 00 ) Calcium No Notes: Memoria Carbonate 5-25 (calcium l 1250 MG / 14:00: carbonate- He rmann Cholecalcif 00 vit D lucia 400 500mg-400u UNT nit TAB) Chewable Same as: Tablet Oyster-D, OsCal-D Ergocalcife No Notes: Edinson david rol 79790 5-25 (Same as: l UNT Oral 12:00: Vitamin D) Her pearson Capsule 00 "Do Not Crush" Thyroxine No Notes: Memori a 5-25 Take 1 l 11:30: hour Raymond 00 before or 2 hours after meal; Enteral feeds may interefere with the absorption of this medication . (Same as:Levothr oid) Oxycodone No Notes: Memori a Hydrochlori 5-25 (Same as: l de 5 MG 10:37: Roxicodone Herm lori Oral Tablet ) Cefazolin No Notes: Memori a 5-25 (Same as l 05:00: Ancef) sugammadex No Notes: Memor ia 5-25 (Same as: l 02:43: [place]) Amitriptyli No Notes: Edinson david ne 5-25 (Same as: l 02:00: Elavil) Singulair No Notes: Memori a 5-25 (Same l 02:00: as:Singula Raymond 00 ir) Ondansetron No 4 mg, Memor ia 5-25 Route: l 00:10: IVP, ONCE, [place] Dosing Weight 51.818, kg, PRN Nausea & Vomiting, Start date: 02/04/18 19:10:00 CDT Hydralazine No 10 mg, Edinson david 5-25 Route: l 00:10: IVP, [place] 00 Q20Min, Dosing Weight 51.818, kg, PRN Elevated BP, Start date: 02/04/18 19:10:00 CDT, Duration: 2 doses or times, Stop date: Limited # of times Labetalol 2017- No 10 mg, Memori a 5-25 Route: l 00:10: IVP, Raymond 00 Q5Min, Dosing Weight 51.818, kg, PRN Elevated BP, Start date: 02/04/18 19:10:00 CDT, Duration: 5 doses or times, Stop date: Limited # of times Flumazenil 0 No 0.2 mg, Edinson david 5-25 Route: l 00:10: IVP, PRN, [place] 00 Dosing Weight 51.818, kg, PRN Benzodiaze pine Reversal, Initial dose, Start date: 02/04/18 19:10:00 CDT, Duration: 30 day, Stop date: 03/06/18 19:09:00 CDT Naloxone 0 No 0.4 mg, Memori a 5-25 Route: l 00:10: IVP, Raymond 00 Q2MIN, Dosing Weight 51.818, kg, PRN Narcotic Reversal, Start date: 02/04/18 19:10:00 CDT, Duration: 8 doses or times, Stop date: Limited # of times Hydromorpho 2017-0 No 0.5 mg, Mem oria ne 5-25 Route: l 00:10: IVP, [place] 00 Q5Min, Dosing Weight 51.818, kg, PRN Pain Score 7-10, Start date: 02/04/18 19:10:00 CDT, Duration: 4 doses or times, Stop date: Limited # of times Oxycodone 0 No 5 mg, Memoria 5-25 Route: PO, l 00:10: Drug form: [place] 00 TAB, Q4H, Dosing Weight 51.818, kg, PRN Pain Score 4-6, Start date: 02/04/18 19:10:00 CDT, Duration: 30 day, Stop date: 03/06/18 19:09:00 CDT ondansetron No Route: IV, Memoria (ANES) 5-24 Drug form: l 23:58: INJ, ONCE, Stop date: 02/04/18 18:58:00 CDT albuterol No Route: Memori a (ANES) 5-24 INHALATION l 23:16: , Drug form: AERO/A, ONCE, Stop date: 02/04/18 18:16:00 CDT acetaminoph No Route: IV, Memoria en (ANES) 5-24 Drug form: l 10 mg 23:00: INJ, Start Val[place] n date: 02/04/18 18:00:00 CDT, Stop date: 02/04/18 19:00:00 CDT hydromorpho 2017-0 No Route: IV, Memoria ne (ANES) 5-24 Drug form: l 22:51: INJ, ONCE, Stop date: 02/04/18 17:51:00 CDT dexamethaso 2017-0 No Route: IV, Memoria ne (ANES) 5-24 Drug form: l 22:51: INJ, ONCE, Stop date: 02/04/18 17:51:00 CDT rocuronium 2017-0 No Route: IV, M emoria (ANES) 5-24 Drug form: l 22:20: INJ, ONCE, Stop date: 02/04/18 17:20:00 CDT fentaNYL No Route: IV, Mem oria (ANES) 5-24 Drug form: l 22:10: INJ, ONCE, Stop date: 02/04/18 17:10:00 CDT propofol No Route: IV, Mem oria (ANES) 5-24 Drug form: l 22:10: INJ, ONCE, Stop date: 02/04/18 17:10:00 CDT lidocaine No Route: IV, Me moria (ANES) 5-24 Drug form: l 22:10: INJ, ONCE, Stop date: 02/04/18 17:10:00 CDT ondansetron No Route: IV, Memoria (ANES) 5-24 Drug form: l 22:10: INJ, ONCE, Stop date: 02/04/18 17:10:00 CDT ceFAZolin No Route: IV, Me moria (ANES) 5-24 Drug form: l 22:05: INJ, ONCE, Stop date: 02/04/18 17:05:00 CDT phenylephri No Route: IV, Memoria ne (ANES) 5-24 Drug form: l 22:05: INJ, ONCE, Stop date: 02/04/18 17:05:00 CDT ePHEDrine No Route: IV, Me moria (ANES) 5-24 Drug form: l 22:05: INJ, ONCE, Stop date: 02/04/18 17:05:00 CDT Lactated No Route: IV, Mem oria Ringers 5-24 Total l Injection 20:35: Volume: Cassidy nn IV (ANES) 00 1,000, 1000 mL Start date: 02/04/18 15:35:00 CDT, Stop date: 02/04/18 16:35:00 CDT Lovenox No Notes: Memoria 5-24 (Same as: l 19:00: Lovenox) Ancef No Notes: Memoria 5-24 (Same as l 16:00: Ancef) Levetiracet No Notes: Edinson david am 750 MG 5-24 Same as l Oral Tablet 14:00: Keppra Herm lori [Keppra] 00 Advair No 1 puff, Memoria Diskus 500 5-24 Route: l mcg-50 mcg 14:00: INHALATION H ermann inhalation , Drug powder Form: AERO, Dosing Weight 47.001, kg, BID, Start date: 02/04/18 9:00:00 CDT, Duration: 30 day, Stop date: 03/05/18 17:00:00 CDT Cymbalta No 30 mg, Memoria 5-24 Route: PO, l 14:00: Drug form: DRC, BID, Dosing Weight 47.001, kg, Start date: 02/04/18 9:00:00 CDT, Duration: 30 day, Stop date: 03/05/18 17:00:00 CDT budesonide- No Notes: Edinson david formoterol 5-24 6411 l 13:00: [address],[id number] Inhale 2 puff(s) by mouth 2 times a day Carlos Chiu Mfr_ Don't use after_ Tramadol No Notes: Not Mem oria 5-24 to exceed l 11:00: 400mg/day. (Same As: Ultram) Acetaminoph No Notes: Edinson david en 325 MG / 5-24 (Same as: l Hydrocodone 10:55: [place] Cassidy nn Bitartrate 00 325/5) Do 5 MG Oral not exceed Tablet 4gm/day of [[place] acetaminop 5/325] hen. Ondansetron No Notes: Edinson david 5-24 (Same as: l 10:54: Zofran) MEDICATION WASTE Product Size: 4 mg Product Wasted: ___ mg Acetaminoph No Notes: Edinson david en 325 MG / 5-24 (Same as: l Hydrocodone 10:54: [place] Cassidy nn Bitartrate 00 325/5) Do 5 MG Oral not exceed Tablet 4gm/day of acetaminop hen. Acetaminoph No Notes: Do M emoria en -24 not exceed l 10:54: 4 gm/day. (Same as: Tylenol) Dilaudid No 1 mg, Memoria -24 Route: l 10:26: IVP, ONCE, Dosing Weight 47.001, kg, Priority: STAT, Start date: 02/04/18 5:26:00 CDT, Stop date: 02/04/18 5:26:00 CDT Fentanyl No 50 Memoria 5-24 microgram, l 10:21: Route: IVP, ONCE, Dosing Weight 47.001, kg, Priority: STAT, Start date: 02/04/18 5:21:00 CDT, Stop date: 02/04/18 5:21:00 CDT Fentanyl No 50 Memoria 5-24 microgram, l 09:57: Route: IVP, ONCE, Dosing Weight 47.001, kg, Priority: STAT, Start date: 02/04/18 4:57:00 CDT, Stop date: 02/04/18 4:57:00 CDT Ancef No Notes: Memoria 5-24 (Same As: l 08:51: Ancef, Kefzol) MEDICATION WASTE Product Size: 1000 mg Product Wasted: ___ mg Fentanyl No Notes: Memoria 5-24 (Same as: l 08:49: Sublimaze) Preservat cely free. ferrous Yes 325 mg = 1 Edinson david sulfate 325 2-14 tab, PO, l mg oral 15:01: Daily, # [place] n enteric 00 30 tab, 0 coated Refill(s) tablet dexlansopra Yes 60 mg = 1 M emoria zole 60 MG 2-14 cap, PO, l Enteric 15:01: Daily, # [place] n Coated 00 30 cap, 0 Capsule Refill(s) [Dexilant] Amino Acids No Notes: Edinson david 4.25% with 2-13 Same as: l 5% Dextrose 04:00: ClinimixE H ermann and 00 Electrolyte s (Clinimix E Sulfite-Jose Roberto e) 2,000 mL + multivitam Protonix No Notes: For Mem oria 2-12 IV push l 23:00: reconstitu Raymond 00 te with 10 ml 0.9% sodium chloride and push over 2 minutes. (Same as: Protonix) Amino Acids No Notes: Edinson david 4.25% with 2-12 Same as: l 5% Dextrose 18:00: ClinimixE H ermann and 00 Electrolyte s (Clinimix E Sulfite-Jose Roberto e) 1,000 mL + multivitam Sodium No 250 mL, Memoria Chloride 2-11 Rate: On l 0.9% 22:16: call for [place] (titrate) 00 use with 250 mL blood product administra tion, Dosing Weight 47.001, kg, Route: IV, Total Volume: 250, Start Date: 10/25/15 16:16:00, Duration: 30 day, Stop date: 11/24/15 16:15:00, Replace Every: 24 hr Sodium No 100 mL, Memoria Chloride 10-25 Rate: 10 l 0.154 20:40: ml/hr, [place] MEQ/ML 00 Infuse Injectable over: 10 Solution hr, Route: IVPB, Dosing Weight 47.001 kg, Total Volume: 100, Infuse at 8 mg / hr for 72 hours for GI bleeding, Start date: 10/25/15 14:40:00, Duration: 72 hr, Stop date: 10/28/15 14:39:00 Reglan No Notes: Memoria 2-11 (Same as: l 18:00: Reglan) [place] 00 Morphine No Notes: Memoria 2-11 (Same l 14:51: as:MORPhin Raymond 00 e Sulfate) Calcium No Notes: Memoria Carbonate 2-11 (Same As: l 500 MG 08:39: Tums) [place] Chewable 00 Calcium Tablet Carbonate 500 mg = 200 mg elemental calcium Dose = mg calcium carbonate ( mg elemental calcium) Magnesium No Notes: Memori a Sulfate 2-11 WASTE: F/P l 08:39: - Sink; E [place] 00 - Municipal Trash Bin Neutra-Phos No Notes: Edinson david 2-11 (Same as: l 08:39: Neutra-Mary Raymond 00 s) Each 1.25 gm pkt has 250mg phosphorou s. Mix w/2.5oz water and stir. Calcium No Notes: Memoria Gluconate 2-11 WASTE: F/P l 08:39: - Sink; E [place] 00 - Municipal Trash Bin Magnesium No Notes: Memori a Oxide 2-11 (Same as: l 08:39: Mag-Ox [place] 00 400) Magnesium oxide 280ox=006s g elemental magnesium Dose=____m g magnesium oxide (___mg elemental magnesium) potassium No Notes: Memori a phosphate 2-11 (Same as: l 08:39: K [place] Phosphate. ) sodium No 30 mmol, Memoria phosphate 2-11 250 mL, l 08:39: Route: [place] 00 IVPB, Drug form: INJ, PRN, Dosing Weight 47.001, kg, PRN Abnormal Lab Result, Start date: 10/25/15 2:39:00, Duration: 30 day, Stop date: 11/24/15 2:38:00, FOR ICU USE ONLY sodium No 45 mmol, Memoria phosphate + 2-11 15 mL, l Sodium 08:39: Route: Raymond Chloride 00 IVPB, PRN, 0.9% IV 250 Dosing mL Weight 47.001, kg, PRN Abnormal Lab Result, Start date: 10/25/15 2:39:00, Duration: 30 day, Stop date: 11/24/15 2:38:00, FOR ICU USE ONLY potassium No Notes: Memori a phosphate + 2-11 (Same as: l Sodium 08:39: K [place] Chloride 00 Phosphate. 0.9% IV 250 ) 1 mMol mL phoshate has 1.47 mEq potassium Infuse over 4 hours potassium No Notes: Memori a chloride 2-11 (Same as: l 08:39: K-Dur 20) [place] 00 "Do Not Crush" With food and full glass of water Amitriptyli No Notes: Edinson david ne 2-11 (Same as: l 03:00: Elavil) [place] morphine No Notes: Memoria Sulfate 2-10 (Same l 21:27: as:MORPhin Raymond 00 e Sulfate) Phenergan No Notes: Do Mem oria 2-10 not give l 21:26: IV push. Raymond (Same as: Phenergan) carvedilol No Notes: Memor ia 2-10 Give with l 15:00: food. [place] 00 (Same As: Coreg) 24 HR No 500 mg, 1 Memoria Etodolac 2-10 tab, l 500 MG 15:00: Route: PO, Cassidy nn Extended 00 Drug form: Release ERTAB, Tablet BID, Dosing Weight 47.001, kg, Start date: 10/24/15 9:00:00, Duration: 30 day, Stop date: 11/22/15 17:00:00 Nexium No 40 mg, Memoria 2-10 Route: PO, l 15:00: Daily, Raymond Dosing Weight 47.001, kg, Start date: 10/24/15 9:00:00, Duration: 30 day, Stop date: 11/22/15 9:00:00 168 HR No Notes: Memoria Clonidine 2-10 Patch l 0.09969 14:44: delivers Valdez n MG/HR 00 0.1 mg/24 Transdermal hours; Patch Patch is applied weekly. "Remove old patch before applicatio n of new patch" (Same As: Catapres-T TS-1) Advair No Notes: Memoria Diskus 500 2-10 (Same as: l mcg-50 mcg 14:44: Advair) Herm lori inhalation 00 powder Methocarbam No Notes: Edinson david ol 2-10 (Same l 13:56: as:Robaxin Raymond 00 ) Meclizine No Notes: Memori a 2-10 (Same as: l 13:56: Antivert) [place] 00 Hyoscyamine No Notes: Edinson david 2-10 (Same as: l 13:56: Levsin) Raymond 00 Take 30 min before meal Acetaminoph No Notes: Edinson david en 325 MG / 2-10 (Same as: l Hydrocodone 13:55: [place] Cassidy nn Bitartrate 00 325/5) Do 5 MG Oral not exceed Tablet 4gm/day of [[place] acetaminop 5/325] hen. Alprazolam No Notes: Memor ia 0.25 MG 2-10 With food l Oral Tablet 13:55: or milk Her pearson 00 (Same as: Xanax) Clonidine No Notes: Memori a Hydrochlori 2-10 (Same As: l de 0.2 MG 06:00: Catapres) Her pearson Oral Tablet 00 Amlodipine No Notes: Memor ia 2-10 (Same as: l 04:43: Norvasc) Raymond 00 Cardene 40 No Notes: Memor ia mg in NS 2-10 Same as: l 200 mL 04:42: Cardene [place] (Titrate.) 00 Concentrat IV 40 mg ion: (0.2 mg /1 ml ) Labetalol No Notes: Memori a 2-10 (Same as: l 04:42: Normodyne, [place] 00 Trandate) Push over 2 minutes Give bolus over 2-3 minutes. Zofran No Notes: Memoria 2-10 (Same as: l 01:05: Zofran) [place] 00 MEDICATION WASTE Product Size: 4 mg Product Wasted: ___ mg Ondansetron No Notes: Edinson david 2-09 (Same as: l 23:49: Zofran) [place] 00 MEDICATION WASTE Product Size: 4 mg Product Wasted: ___ mg Sublimaze No Notes: Memori a 2-09 (Same as: l 23:30: Sublimaze) [place] Preservat cely free. midazolam No Notes: Memori a 2-09 (Same as: l 23:30: Versed) [place] 00 MEDICATION WASTE Product Size: 2 mg Product Wasted: ___ mg Thyroxine No Notes: Memori a 2-09 Take 1 l 12:30: hour [place] 00 before or 2 hours after meal; Enteral feeds may interefere with the absorption of this medication . (Same as:Levothr oid) Sublimaze No Notes: Memori a 2-09 (Same as: l 03:47: Sublimaze) [place] 00 Preservat cely free. Saline No Notes: Memoria Flush 0.9% 10-23 (Same as: l 03:00: BD Raymond 00 Posiflush) sennosides, No Notes: Edinson david [facility] 10-23 (Same as: l 03:00: Senokot) Docusate No Notes: Memoria 2- (Same as: l 03:00: Colace) Raymond (Do Not Crush) Singulair No Notes: Memori a 2- (Same l 03:00: as:Singula Raymond ir) budesonide- No Notes: Edinson david formoterol 2 (Same as: l 160 mcg-4.5 23:00: Symbicort) Raymond mcg/inh 00 WASTE: inhalation Aerosol - aerosol Return to with Pharmacy adapter Seroquel No Notes: Memoria 2-08 (Same as: l 23:00: SEROquel) [place] 00 Levetiracet No Notes: Edinson david am 750 MG 2-08 Same as: l Oral Tablet 23:00: Keppra Herm lori [Keppra] 00 Cymbalta No Notes: Memoria 2-08 (Same as: l 23:00: Cymbalta) Raymond (Do Not Crush) Advair No 1 puff, Memoria Diskus 500 208 Route: l mcg-50 mcg 23:00: INHALATION H ermann inhalation 00 , Drug powder Form: AERO, Dosing Weight 47.001, kg, BID, Start date: 10/22/15 17:00:00, Duration: 30 day, Stop date: 11/21/15 9:00:00 ibandronic No 150 mg = 1 M emoria acid 150 MG 2-08 tab, PO, l Oral Tablet 19:51: qMonth, Her pearson [Boniva] 00 Swallow whole w/6-8oz water 1HR before first food, drink, med-Do not lie down for 1HR & until after first food, # 1 tab, 0 Refill(s) Acetaminoph 2016-0 Yes 2 tab, PO, Memoria en 325 MG / 2-08 Q6H, PRN l Hydrocodone 19:51: for pain, H ermann Bitartrate 00 0 5 MG Oral Refill(s) Tablet [[place] 5/325] carvedilol Yes 3.125 mg = M emoria 3.125 mg 2-08 1 tab, PO, l oral tablet 19:51: BID, # 180 Raymond 00 tab, 1 Refill(s) dexlansopra No 60 mg = 1 M emoria zole 60 MG 2-08 cap, PO, l Enteric 19:51: Daily, # Valdez n Coated 00 30 day, 1 Capsule Refill(s) [Dexilant] duloxetine Yes 30 mg = 1 Me moria 30 MG 2-08 cap, PO, l Enteric 19:51: BID, # 60 Cassidy nn Coated 00 cap, 0 Capsule Refill(s) [Cymbalta] methocarbam Yes 500 mg = 1 Memoria ol 500 mg 2-08 tab, PO, l oral tablet 19:51: Q8H, PRN He rmann 00 Spasms, # 60 tab, 0 Refill(s) Levetiracet Yes 750 mg = 1 Memoria am 750 MG 2-08 tab, PO, l Oral Tablet 19:51: BID, # 60 H ermann [Keppra] 00 tab, 2 Refill(s) montelukast Yes 10 mg = 1 M emoria 10 MG Oral 2-08 tab, PO, l Tablet 19:51: Bedtime, # Cassidy nn [Singulair] 00 30 tab, 0 Refill(s) 168 HR Yes 1 patch, Memoria Clonidine 2-08 TOP, l 0.52343 19:51: qWeek, # Val[place] n MG/HR 00 12 patch, Transdermal 0 Patch Refill(s) quetiapine Yes 25 mg = 1 Me moria 25 MG Oral 2-08 tab, PO, l Tablet 19:51: BID, 0 [place] [Seroquel] 00 Refill(s) linaclotide Yes 145 Memori a 0.145 MG 2-08 microgram l Oral 19:51: = 1 cap, [place] Capsule 00 PO, Daily, [Linzess] 30 minutes prior to the first meal of the day, # 30 cap, 0 Refill(s) etodolac No 500 mg = 1 Mem oria 500 mg oral 2-08 tab, PO, l tablet 19:51: BID, # 60 Valdez n 00 tab, 1 Refill(s) meclizine Yes 25 mg = 1 Mem oria 25 mg oral 2-08 tab, PO, l tablet 19:51: TID, PRN Raymond 00 for dizziness, # 60 tab, 0 Refill(s) Nexium No 40 mg, PO, Memor ia 2-08 Daily, 0 l 19:51: Refill(s) Raymond 00 levocetiriz Yes 5 mg = 1 Me moria ine 5 mg 2-08 tab, PO, l oral tablet 19:51: Bedtime, He rmann 00 PRN as needed for allergy symptoms, # 30 tab, 0 Refill(s) hyoscyamine Yes 0.125 mg = Memoria 0.125 mg 2-08 1 tab, SL, l sublingual 19:51: Q6H, PRN Her pearson tablet 00 Spasms, # 30 tab, 0 Refill(s) Alprazolam Yes 0.25 mg = Me moria 0.25 MG 2-08 1 tab, PO, l Oral Tablet 19:51: TID, PRN He rmann 00 Anxiety, # 30 tab, 0 Refill(s) amitriptyli Yes 25 mg = 1 M emoria ne 25 mg 2-08 tab, PO, l oral tablet 19:49: Bedtime, # Raymond 00 30 tab, 1 Refill(s) Advair Yes 1 puff, Memoria Diskus 500 2-08 INHALATION l mcg-50 mcg 19:49: , BID, # 1 H ermann inhalation 00 ea, 3 powder Refill(s) levothyroxi Yes 25 Memori a ne 25 mcg 2-08 microgram l (0.025 mg) 19:49: = 1 tab, Her pearson oral tablet 00 PO, Daily, # 30 tab, 1 Refill(s) Amlodipine Yes 5 mg, PO, Me moria 2-08 BID, 0 l 19:49: Refill(s) Raymond 00 Sodium 2016-0 No 100 mL, Memoria Chloride 2-08 Rate: 10 l 0.154 18:59: ml/hr, [place] MEQ/ML 00 Infuse Injectable over: 10 Solution hr, Route: IVPB, Dosing Weight 47.001 kg, Total Volume: 100, Infuse at 8 mg / hr for 72 hours for GI bleeding, Start date: 10/22/15 12:59:00, Duration: 72 hr, Stop date: 10/25/15 12:58:00 Saline 2016-0 No Notes: [facility] Flush 0.9% 2-08 (Same as: l 18:55: [facility] [place] 00 Posiflush) Vital Signs Vital Name Observation Time Observation Value Comments Source Systolic (mm Hg) 2019-10-06 20:08:00 [place] [facility] Diastolic (mm Hg) 2019-10-06 20:08:00 [facility] Heart Rate 2019-10-06 20:08:00 [facility] [place] Respitory Rate 2019-10-06 20:08:00 [facility] [place] Height 2019-10-06 20:08:00 162.56 cm [facility] Weight 2019-10-06 20:08:00 [facility] BMI Calculated 2019-10-06 20:08:00 [facility] [place] Weight 2019-03-25 18:58:00 [facility] BMI Calculated 2019-03-25 18:58:00 [facility] [place] Height 2019-03-25 18:58:00 167.64 cm [facility] Systolic (mm Hg) 2019-03-25 18:58:00 [place] [facility] [place] Diastolic (mm Hg) 2019-03-25 18:58:00 [facility] [place] Heart Rate 2019-03-25 18:58:00 [facility] Respitory Rate 2019-03-25 18:58:00 [facility] [place] BMI Calculated 2019-01-21 18:35:00 [facility] [place] Weight 2019-01-21 18:35:00 [facility] [place] Height 2019-01-21 18:35:00 167.64 cm [facility] Respitory Rate 2019-01-21 18:35:00 [facility] Heart Rate 2019-01-21 18:35:00 [facility] Systolic (mm Hg) 2019-01-21 18:35:00 [place] rial [place] Diastolic (mm Hg) 2019-01-21 18:35:00 [facility] [place] BMI Calculated 2018-12-30 14:25:00 [facility] [place] Weight 2018-12-30 14:25:00 [facility] [place] Height 2018-12-30 14:25:00 167.64 cm [facility] [place] Systolic (mm Hg) 2018-12-30 14:25:00 [place] [facility] [place] Diastolic (mm Hg) 2018-12-30 14:25:00 [facility] Respitory Rate 2018-12-30 14:25:00 [facility] [place] Heart Rate 2018-12-30 14:25:00 [facility] Systolic (mm Hg) 2018-10-19 22:38:00 [place] rial [place] Diastolic (mm Hg) 2018-10-19 22:38:00 [facility] Heart Rate 2018-10-19 22:38:00 [facility] [place] Respitory Rate 2018-10-19 22:38:00 [facility] [place] Height 2018-10-19 22:38:00 167.64 cm [facility] Weight 2018-10-19 22:38:00 [facility] BMI Calculated 2018-10-19 22:38:00 [facility] Temperature Oral (F) 2018-02-06 17:35:00 99.2 F [facility] Heart Rate 2018-02-06 17:35:00 [facility] [place] Respitory Rate 2018-02-06 17:35:00 [facility] [place] Systolic (mm Hg) 2018-02-06 17:35:00 [place] rial [place] Diastolic (mm Hg) 2018-02-06 17:35:00 [facility] [place] Heart Rate 2018-02-06 12:40:00 [facility] [place] Respitory Rate 2018-02-06 12:40:00 [facility] [place] Systolic (mm Hg) 2018-02-06 12:40:00 [place] [facility] [place] Diastolic (mm Hg) 2018-02-06 12:40:00 [facility] Temperature Oral (F) 2018-02-06 12:40:00 98.5 F [facility] [place] Respitory Rate 2018-02-06 08:12:00 [facility] [place] Heart Rate 2018-02-06 08:12:00 [facility] Temperature Oral (F) 2018-02-06 08:12:00 97.8 F [facility] Systolic (mm Hg) 2018-02-06 08:12:00 [place] [facility] [place] Diastolic (mm Hg) 2018-02-06 08:12:00 [facility] [place] Height 2018-02-05 02:47:00 167.64 cm [facility] [place] Weight 2018-02-05 02:47:00 [facility] BMI Calculated 2018-02-05 02:47:00 [facility] [place] BMI Calculated 2018-02-04 15:52:00 [facility] [place] Weight 2018-02-04 15:52:00 [facility] [place] Height 2018-02-04 15:52:00 167.64 cm [facility] Respitory Rate 2015-10-28 14:00:00 [facility] [place] Systolic (mm Hg) 2015-10-28 14:00:00 [place] [facility] [place] Diastolic (mm Hg) 2015-10-28 14:00:00 [facility] [place] Temperature Oral (F) 2015-10-28 14:00:00 98.1 F [facility] Heart Rate 2015-10-28 14:00:00 [facility] [place] Respitory Rate 2015-10-28 10:00:00 [facility] [place] Systolic (mm Hg) 2015-10-28 10:00:00 [place] [facility] [place] Diastolic (mm Hg) 2015-10-28 10:00:00 [facility] [place] Heart Rate 2015-10-28 10:00:00 [facility] Temperature Oral (F) 2015-10-28 10:00:00 97.9 F [facility] Respitory Rate 2015-10-28 06:00:00 [facility] [place] Heart Rate 2015-10-28 06:00:00 [facility] Temperature Oral (F) 2015-10-28 06:00:00 97.6 F [facility] Systolic (mm Hg) 2015-10-28 06:00:00 [place] [facility] [place] Diastolic (mm Hg) 2015-10-28 06:00:00 [facility] [place] Height 2015-10-27 02:52:00 152.4 cm [facility] Height 2015-10-22 18:39:00 165.1 cm [facility] Weight 2015-10-22 18:39:00 [facility] [place] BMI Calculated 2015-10-22 18:39:00 Perla latham [place] Procedures Procedure Date / Time Performed Performing Clinician Latia hyman Appendectomy [facility] Arthroscopy of knee [facility] pearson Elbow maneuver [facility] Hysterectomy [facility] [place] Repair of shoulder [facility] lori Encounters Start End Encounter Admission Attending Care Care Encounter Source Date/Time Date/Time Type Type Clinicians Facility Department ID 2020-11-15 2020-11-15 Outpatient IRVIN ShresthaSCHER MHMISCHER [id number] 15:15:00 23:59:59 [place] 14 [place] 2020-10-22 2020-10-23 Outpatient MHMISCHER MHMISCHER [id number] 15:23:00 23:59:59 2020-07-26 2020-07-26 Outpatient SUZIE ShresthaMISCHER MHMISCHER [id number] 14:00:00 23:59:59 [place] 12 [place] 2020-04-05 2020-04-05 Outpatient IRVIN ShresthaSCHER MHMISCHER [id number] 14:00:00 23:59:59 [place] 11 [place] 2020-04-05 2020-04-05 Outpatient SUZIE ShresthaMISCHER MHMISCHER [id number] 14:00:00 14:00:00 [place] 10 [place] 2020-03-01 2020-03-01 Emergency [facility] [id number] 16:34:28 19:52:00 Keren Puckett [id number] [place] [id number] [place] [id number] 2019-10-06 2019-10-06 Outpatient SUZIE ShresthaMISCHER MHMISCHER [id number] 13:15:00 23:59:59 [place] 09 [place] 2019-07-01 2019-07-01 Outpatient SUZIE ShresthaMISCHER MHMISCHER [id number] 16:00:00 16:00:00 [place] 08 [place] 2019-03-31 2019-03-31 Outpatient Henrietta MHMISCHER MHMISCHER [id number] 15:15:00 15:15:00 [place] 03 [place] 2019-03-25 2019-03-25 Outpatient SUZIE ShresthaMISCHER MHMISCHER [id number] 13:00:00 23:59:59 [place] 07 [place] 2019-02-09 2019-02-09 Outpatient Henrietta, MHMISCHER MHMISCHER [id number] 14:45:00 14:45:00 [place] 05 [place] 2019-01-21 2019-01-21 Outpatient Henrietta, MHMISCHER MHMISCHER [id number] 13:15:00 23:59:59 [place] 06 [place] 2018-12-30 2018-12-30 Outpatient Henrietta, MHMISCHER MHMISCHER [id number] 09:00:00 23:59:59 [place] 04 [place] 2018-10-19 2018-10-19 Outpatient Henrietta, MHMISCHER MHMISCHER [id number] 16:00:00 23:59:59 [place] 2018-09-17 2018-09-18 Outpatient MHMISCHER MHMISCHER [id number] 15:30:00 23:59:59 2018-08-20 2018-08-21 Outpatient MHMISCHER MHMISCHER [id number] 13:01:00 23:59:59 2018-02-04 2018-02-06 Outpatient Laguerre, [facility] [id number] 03:21:00 16:15:00 Carlos K 43 2015-10-22 2015-10-28 Outpatient [facility] [id number] 12:39:00 11:47:00 Emir Rosa Results Test Description Test Time Test Comments Results Result Comments Source HEMATOLOGY 2018-02-06 25.5 [facility] 11:29:00 [place] HEMATOLOGY 2018-02-06 8.6 [facility] 11:29:00 [place] HEMATOLOGY 2018-02-05 12.7 [facility] 11:44:00 [place] HEMATOLOGY 2018-02-05 8.9 [facility] 11:44:00 [place] HEMATOLOGY 2018-02-05 7.6 [facility] 11:44:00 [place] HEMATOLOGY 2018-02-05 2.79 [facility] 11:44:00 [place] HEMATOLOGY 2018-02-05 1.2 [facility] 11:44:00 [place] HEMATOLOGY 2018-02-05 1.2 [facility] 11:44:00 [place] HEMATOLOGY 2018-02-05 16.0 [facility] 11:44:00 [place] HEMATOLOGY 2018-02-05 15.8 [facility] 11:44:00 [place] HEMATOLOGY 2018-02-05 67.9 [facility] 11:44:00 [place] HEMATOLOGY 2018-02-05 5.1 [facility] 11:44:00 [place] HEMATOLOGY 2018-02-05 0.3 [facility] 11:44:00 [place] PARATHYROID PROFILE 2018-02-05 122.9 [facility] 11:44:00 [place] CHEM PANEL 2018-02-05 12.4 [facility] 11:44:00 [place] ELECTROLYTES 2018-02-05 13.9 [facility] 11:44:00 [place] ELECTROLYTES 2018-02-05 82 [facility] 11:44:00 [place] ELECTROLYTES 2018-02-05 110 [facility] 11:44:00 [place] ELECTROLYTES 2018-02-05 24 [facility] 11:44:00 [place] ELECTROLYTES 2018-02-05 144 [facility] 11:44:00 [place] ELECTROLYTES 2018-02-05 3.9 [facility] 11:44:00 [place] ELECTROLYTES 2018-02-05 20 [facility] 11:44:00 [place] ELECTROLYTES 2018-02-05 0.68 [facility] 11:44:00 [place] ELECTROLYTES 2018-02-05 151 [facility] 11:44:00 [place] ELECTROLYTES 2018-02-05 7.9 [facility] 11:44:00 [place] HEMATOLOGY 2018-02-05 93.8 [facility] 11:44:00 [place] HEMATOLOGY 2018-02-05 11:44:00 Test Item Value Reference Range Interpretation Comme nts MCH (test code = MCH) 31.7 pg 27.0-31.0 [facility] MhwpketJNUIOGVKEW0118-17-33 11:44:0026.2[facility]ann[facility]MATOLOGY 2018-02-05 11:44:71684Ivdzvkig YlhytplLLIKSYAQCQ1685-44-15 11:44:0033.8[facility] XyoxremNKIEJNZJNB5650-16-92 11:44:006.8[facility] HermannBLOOD BANK RESULTS 2018-02-04 09:21:00Negative (02/04/18 4:21 AM)[facility] HermannCHEM PANEL 2018-02-04 09:06:590.9[facility] UogqoscSMBBICDZRGGS1403-23-03 09:06:5911.9 [facility] AcsgzkmMXBGKRBCOIFX2410-12-43 09:06:5983[facility] HermannELECTROLYTES 2018-02-04 09:06:598.1[facility] QlojjnqZOWHPUFRNXEX9594-74-55 09:06:5922[facility] SwkoxsjUEXKHZDTIBEU1440-59-96 09:06:68775Mgodgyxt IvxsdcfGHOCHHOLBXAC9335-25-48 09:06:590.67[facility] SadweojLEQHLIZEOHXR8856-10-90 09:06:5922[facility] WXLAPSHMDUYU7978-87-00 09:06:83490Bvzvjxug DckxeckAJHGLIFAUCVV2701-79-67 09:06:99586Uzugawid MbjedbdAHSACOXDKNJZ0682-32-62 09:06:593.9[facility] BATPFADEKU8164-85-85 09:06:59 Test Item Value Reference Range Interpretation Comments PTT (test code = PTT) 24.7 s 22.9-35.8 [facility] QchzwwdCWSBKDZPHT8099-99-61 09:06:59 Test Item Value Reference Range Interpretation Comments INR (test code = INR) 1.01 1 0.85-1.17 [facility] StzewhwPYOEWNYJZU2658-84-62 09:06:59 Test Item Value Reference Range Interpretation Comments PT (test code = PT) 13.3 s 12.0-14.7 [facility] DrnxgqhCUXWTGIMGV2860-79-29 09:06:15666Krzgljjv HermannHEMATOLOGY 2018-02-04 09:06:597.1[facility] GpdvpsoYXPVMKEDRT6943-65-64 09:06:5932.2[facility] JazkqiuWKNJGSNLQW7971-89-92 09:06:593.42[facility] WocpwgaDFSFXNWERF0975-12-38 09:06:5910.8[facility] EcyikpjIYPMHZYTOQ6425-00-99 09:06:598.5[facility] SCBXVRWDLX1778-86-59 09:06:5933.5[facility] AluiddpKIMNQPOXNX4607-79-61 09:06:59 13.0[facility] YaczgcdHHJGLUOQKZ0514-19-19 09:06:5994.1[facility] HermannHEMATOLOGY 2018-02-04 09:06:59 Test Item Value Reference Range Interpretation Comments MCH (test code = MCH) 31.5 pg 27.0-31.0 [facility] MkfdlyvAANTRFUIWC9002-94-77 09:06:592.3[facility] HermannHEMATOLOGY 2018-02-04 09:06:591.7[facility] QzrfnktOIMLZPOJZX4241-58-09 09:06:595.5[facility] GcftypsIJISYRSYEA3022-33-88 09:06:590.8[facility] VnhnmfoWVPRACBQXY2494-62-38 09:06:590.1[facility] BfbawkkQHVHFJQOGP3326-98-40 09:06:590.2[facility] [place] PDHMTGHAYG9689-54-10 09:06:591.1[facility] ElihfqwFCUTOYXRMK3273-02-47 09:06:59 64.6[facility] EvgjeviKFVZUNFAMD6206-58-33 09:06:5919.7[facility] HermannHEMATOLOGY 2018-02-04 09:06:5912.6[facility] SrcvslbRJIEWVKFRACK8706-65-02 11:14:0011.7 [facility] FbcpqhtESJBXVLUZGRZ6300-54-60 11:14:0099[facility] HermannELECTROLYTES 2015-10-28 11:14:0029[facility] RnhepudJWBQNXDAIFJU7714-73-28 11:14:40996Izassvfc BudsbrdSZNLAHKTCEWX7814-94-56 11:14:003.7[facility] VnonspyIBUSWHUDBMCA0639-79-78 11:14:47425Pdkuurkz AkfhmziHMZFTHQTWUFK7834-41-22 11:14:000.40[facility] QUSVBKYXJIHH0599-38-93 11:14:008.1[facility] EnabombRZIXYLNONGNW2931-95-15 11:14:008[facility] CsiebelOBRMMCAYYJNW8719-06-71 11:14:0094[facility] LKCWRFOYSH9555-06-38 11:14:0016.6[facility] IaaucgmUUECMBXRMR2519-55-53 11:14:00 7.2[facility] QzwuptzMBNFHEIMYD4576-01-69 11:14:36569Wfwptktr HermannHEMATOLOGY 2015-10-28 11:14:00 Test Item Value Reference Range Interpretation Comments MCH (test code = MCH) 29.8 pg 27.0-31.0 [facility] HjmbhkxULLEXPAYIU8170-21-51 11:14:0032.9[facility] HermannHEMATOLOGY 2015-10-28 11:14:0090.5[facility] SgrwrqmCJSYZJLWZP5707-18-63 11:14:003.41[facility] EjvtjnpZFDZBYDJVC5859-00-97 11:14:008.1[facility] JnqojxqSAENGOBNNX5850-68-21 11:14:0030.9[facility] GvjzaikDDZZOVHKXH6275-43-26 11:14:0010.2[facility] [place] CLYXWEXKOW0025-51-63 11:14:001.1[facility] UyzretgVDQEKZRHHT0491-87-07 11:14:005.4 [facility] OecvpjiAWJZOJKFNK7217-04-53 11:14:000.1[facility] HermannHEMATOLOGY 2015-10-28 11:14:001.2[facility] BenzjfoRJHWYCGIOQ9142-35-69 11:14:000.8[facility] DwcgwefWBGXVDHKEM5930-69-03 11:14:000.6[facility] OnwlmqzXJGOJJDQDJ0878-50-88 11:14:0066.7[facility] WirigodGPDOZMUTVU3926-58-99 11:14:0015.1[facility] SXVBYQQITK3741-22-32 11:14:009.7[facility] GtsmaugFKSLWAIUIP6625-21-14 11:14:007.4 [facility] EfmpcjmJCIFHJKKNZ9265-90-34 02:47:0030.2[facility] HermannHEMATOLOGY 2015-10-28 02:47:0010.1[facility] CguadbvSAPSOYRMYF7537-45-84 18:09:009.4[facility] YhizzqgRHQWLCJWAM3322-54-45 18:09:0027.9[facility] XdshoqkHGURSWQCMK2148-94-73 10:49:00 Test Item Value Reference Range Interpretation Comments PT (test code = PT) 14.3 s 12.0-14.7 [facility] VmufdyqEGRSGZEEJX6791-07-12 10:49:00 Test Item Value Reference Range Interpretation Comments PTT (test code = PTT) 34.3 s 22.9-35.8 [facility] UygyjuqLTSLPRSNPI4937-32-21 10:49:001.08[facility] HermannHEMATOLOGY 2015-10-27 10:49:004.9[facility] EqpldamWBTXPKBPTR3481-93-46 10:49:008.3[facility] QwrjpatZFIQANOMXI0272-94-89 10:49:000.1[facility] CzoulpzQSKMSFDUHD4490-54-72 10:49:000.9[facility] HdegchcHCIKEVTCCP1568-54-55 10:49:000.8[facility] TWQWXPQSJR1265-89-39 10:49:000.7[facility] EvmhjefJEFSALCZHT9804-44-98 10:49:007.0 [facility] RflbqvuMEPYREGTTD6387-06-65 10:49:009.9[facility] HermannHEMATOLOGY 2015-10-27 10:49:0076.2[facility] KlaibyzZAPVCSUGCL3148-81-08 10:49:000.5[facility] ZpcqsnfIKBGUTJZOD0935-33-65 10:49:009.2[facility] IrwrdzqZRCYIMARNI1408-56-38 10:49:007.5[facility] UlfowhmCEVYOISLPY2226-13-65 10:49:0090.5[facility] KJHAHRABKR5141-27-85 10:49:00 Test Item Value Reference Range Interpretation Comments MCH (test code = MCH) 30.0 pg 27.0-31.0 [facility] SfxvpndXBEWCVTDNR6189-98-42 10:49:0033.1[facility] HermannHEMATOLOGY 2015-10-27 10:49:002.88[facility] OntctzzVRZTOKDCBJ2677-64-03 10:49:36593Lpcwbwxd RaesdodROJGVGGCDG2701-31-02 10:49:0016.9[facility] HermannURINE AND STOOL 2015-10-26 23:46:00<=1.0[facility]annURINE AND FZUXN6891-81-79 23:46:00 Performed *NA*(10/26/15 5:46 PM)[facility]ann[facility] AND YRZQQ4768-88-63 23:46:00<1[facility]annUR[facility] AND CDTNW8818-82-00 23:46:00Negative *NA*(10/26/15 5:46 PM)[facility]ann[facility] AND YITYO2234-25-57 23:46:001[facility]annUR[facility] AND QLSOX9814-73-89 23:46:00Trace *ABN*(10/26/15 5:46 PM)[facility] NHZIX8913-54-88 23:46:00Negative (10/26/15 5:46 PM)[facility] AND UIHFG5127-26-27 23:46:00Negative (10/26/15 5:46 PM)[facility]ann[facility] AND PJJYR4576-52-52 23:46:00Clear (10/26/15 5:46 PM)[facility] [place] URINE AND AJCYN9993-63-13 23:46:001.006[facility]annURINE AND RKJDC3808-07-13 23:46:006.0[facility]annURINE AND QGHBT3559-69-08 23:46:00Light Yellow *NA*(10/26/15 5:46 PM)[facility]annBLOOD BANK TGWWQGV8081-88-92 10:09:00 Negative (10/26/15 4:09 AM)[facility] HermannCHEM XZEXV2614-37-06 10:09:0099 [facility] HermannCHEM KVWDL9969-23-67 10:09:007.4[facility] HermannCHEM PANEL 2015-10-26 10:09:0030[facility] HermannCHEM BJXZB7765-64-92 10:09:64568Exyzzusm HermannCHEM BHEBY3061-62-10 10:09:78699Aibkaezp HermannCHEM GZDWX2096-47-12 10:09:003.6[facility] HermannCHEM HARYU1058-21-80 10:09:0013[facility] HermannCHEM OAHDT8770-33-25 10:09:000.40[facility] HermannCHEM EWTWF0833-57-42 10:09:95403 [facility] HermannCHEM RKFDL3123-98-90 10:09:0011.6[facility] HermannCHEM PANEL 2015-10-26 10:09:002.4[facility] HermannCHEM KFLRD7809-47-07 10:09:001.9[facility] UiplphoQPYFHRCFSI7188-68-66 10:09:000.4[facility] ZybhxukEEWKGSUXUL8703-19-13 10:09:009.0[facility] IogkebmZYLYZDUXRV7658-92-55 10:09:007.1[facility] [place] JQVXWARWUY1021-42-63 10:09:009.6[facility] RixrlfxCTXOMGLTCM9825-09-25 10:09:001.1 [facility] ZyamzbcUMIXNRWPOE1858-34-36 10:09:003.4[facility] HermannHEMATOLOGY 2015-10-26 10:09:000.4[facility] UsrweyeCNLMPZNYWO5886-06-07 10:09:000.0[facility] TifdexyMBSPCFTYVY2224-20-84 10:09:000.8[facility] TassvfnGCJKVMZULV2990-57-31 10:09:0079.5[facility] ScbxjnrOJEVSQGLPU4370-92-99 10:09:00 Test Item Value Reference Range Interpretation Comments MCH (test code = MCH) 29.9 pg 27.0-31.0 [facility] XustbmjMRTFBNRYMC9917-50-74 10:09:002.93[facility] HermannHEMATOLOGY 2015-10-26 10:09:007.4[facility] NtmsffbHEHNKWVTPC9960-96-89 10:09:0017.7[facility] SedbqtlRSLCLTXDVE3702-45-53 10:09:0032.8[facility] MfznawlUYOATLQREB3053-67-93 10:09:37443Mkxwhyzc JlwmxzpMFZJYKCQRF2088-86-51 10:09:0091.2[facility] [place] EOQKTRDMRH6443-22-79 10:09:0011.3[facility] HermannPARATHYROID CTVBYUB4600-32-93 10:09:001.08[facility] HermannPARATHYROID CQETTBB9636-38-32 10:09:001.09[facility] HermannBLOOD BANK BUIGTRT3054-49-31 22:16:00Product available (10/25/15 4:16 PM) [facility] ZyqzilbTJFIKIDAYB7881-60-84 16:21:00Moderate *ABN*(10/25/15 10:21 AM) [facility] LtrlyyiMFQTQEPWIS1445-70-79 16:21:00Normal (10/25/15 10:21 AM)[facility] TxgbsyqSHCESGBUDJ5857-46-05 16:21:00Moderate *ABN*(10/25/15 10:21 AM)[facility] BlrdxweDWLEPDWTSF1530-39-47 16:21:00 Test Item Value Reference Range Interpretation Comments PTT (test code = PTT) 33.0 s 22.9-35.8 [facility] SqmbgwrJHPREDHQQI9835-83-94 16:21:001.18[facility] HermannHEMATOLOGY 2015-10-25 16:21:00 Test Item Value Reference Range Interpretation Comments PT (test code = PT) 15.3 s 12.0-14.7 [facility] TYLHBVB6860-82-69 08:39:00Product available (10/25/15 2:39 AM)[facility] HermannCHEM RVHIU2634-20-24 07:39:001.7[facility] HermannCHEM DEXUB0589-87-96 07:39:0099[facility] HermannCHEM LUPCS2485-20-27 07:39:007.4 [facility] HermannCHEM CDJGU3295-72-87 07:39:0012.4[facility] HermannCHEM PANEL 2015-10-25 07:39:30021Ryplowpl HermannCHEM YJXWF4621-51-36 07:39:0016[facility] HermannCHEM YPQDU6535-50-99 07:39:000.40[facility] HermannCHEM GOJPI1063-48-93 07:39:77075Zunyocjn HermannCHEM JJDFM8615-34-25 07:39:003.4[facility] HermannCHEM QIWWB6278-79-38 07:39:51298Qsmwpvtx HermannCHEM XJSKW7332-44-65 07:39:0027 [facility] HermannCHEM ZWEWO1207-29-23 07:39:003.1[facility] HermannHEMATOLOGY 2015-10-25 07:39:00Moderate *ABN*(10/25/15 1:39 AM)[facility] HermannHEMATOLOGY 2015-10-25 07:39:00Moderate *ABN*(10/25/15 1:39 AM)[facility] HermannHEMATOLOGY 2015-10-25 07:39:00Normal (10/25/15 1:39 AM)[facility] HermannPARATHYROID PROFILE 2015-10-25 07:39:001.08[facility] HermannPARATHYROID OTCFABW1273-12-07 07:39:00 1.05[facility] HermannCHEM HCAWP9477-34-33 14:17:001.0[facility] HermannCHEM PANEL 2015-10-24 10:16:003.7[facility] HermannCHEM VJDZQ8580-76-83 10:16:001.7[facility] CnpwgcwSDWJROYZSF4738-32-52 10:16:001.18[facility] DrykxfkVPTVKGIYMK9636-76-47 10:16:00 Test Item Value Reference Range Interpretation Comments PT (test code = PT) 15.3 s 12.0-14.7 [facility] TbestuoCWAQFZCEEX0197-76-83 10:16:00 Test Item Value Reference Range Interpretation Comments PTT (test code = PTT) 27.8 s 22.9-35.8 [facility] HermannPARATHYROID LVLXTCY3421-51-97 10:16:001.08[facility] PARATHYROID EIHKVUN9481-39-65 10:16:001.08[facility] HermannBLHiWired BANK RESULTS 2015-10-23 04:44:00Product available (10/22/15 10:44 PM)[facility] HermannBLOOD BANK NDGHNFT4564-58-72 03:04:00Negative (10/22/15 9:04 PM)[facility]annURINE AND IVPKX3880-36-04 20:58:00<=1.0[facility]annURINE AND LXBIA9766-86-16 20:58:001[facility]annUR[facility] AND ZMDDB0839-36-28 20:58:00Negative (10/22/15 2:58 PM)[facility]annUR[facility] AND YCAOE3463-59-99 20:58:00Negative (10/22/15 2:58 PM) [facility] AND UDILG6496-94-74 20:58:00Negative *NA*(10/22/15 2:58 PM) [facility]annUR[facility] AND JYNEE1692-34-06 20:58:00Light Yellow *NA*(10/22/15 2:58 PM)[facility]annUR[facility] AND CQRHN2196-68-08 20:58:001.009[facility]annURINE AND EQWQS1977-70-66 20:58:00Clear (10/22/15 2:58 PM)[facility]annUR[facility] AND OLOML0618-72-93 20:58:007.0[facility]annUR[facility] AND VVAXW1331-27-65 20:58:00 Negative (10/22/15 2:58 PM)[facility] HermannBACTERIAL - TJPOFNTO9978-09-51 19:20:00 Negative (10/22/15 1:20 PM)[facility] HermannCHEM [id number] 19:20:0032.0 [facility]annCHEM [id number] 19:20:87471Bynzpgpa HermannCHEM PANEL 2015-10-22 19:20:000.9[facility]annCHEM [id number] 19:20:002.2[facility]annCHEM [id number] 19:20:001.0[facility]annCHEM [id number] 19:20:0016[facility]annCHEM [id number] 19:20:000.4[facility]annCHEM [id number] 19:20:0042[facility]annCHEM [id number] 19:20:000.1 [facility]annCHEM [id number] 19:20:004.3[facility]annCHEM PANEL 2015-10-22 19:20:002.1[facility]annCHEM [id number] 19:20:0019[facility]annCHEM [id number] 19:20:000.3[facility] [id number] 19:20:003.4[facility]
[2020-11-22 21:59] LABS: Absolute Lymphocytes (CBC) 1.2 K/uL (0.7-4.9); Basophils % 0.9 % (0-1.3); Hematocrit 34.1 % (36.0-45.0); Lymphocytes % 19.7 % (15.3-44.8); MPV 7.9 fL (7.6-11.3); RBC Red Blood Cell Count 3.62 M/uL (3.86-4.86)
--- NOTE | 2020-11-22 22:59 | RAD REPORT ---
EXAM DESCRIPTION: CT - Ct Stroke Brain Wo Cont - 11/22/2020 9:33 pm CLINICAL HISTORY: Unresponsive COMPARISON: 2017 TECHNIQUE: Computed axial tomography of the head was obtained. All CT scans are performed using dose optimization technique as appropriate and may include automated exposure control or mA/KV adjustment according to patient size. FINDINGS: An intracranial bleed is not seen . The ventricles are normal in caliber. No extra-axial fluid collection is noted. Mild low-density within periventricular, deep and subcortical white matter likely ischemic changes s econdary to small vessel disease or demyelinating plaques associated with multiple sclerosis Fluid within the sinuses/ mastoids is not seen. IMPRESSION: No acute intracranial abnormality is seen. If patient's symptoms persist MRI of the bra in would be recommended. Dr Sinclair of the emergency room was notified at 9:20 p.m. November 22, 2020
[2020-11-22 23:10] LABS: Potassium 4.3 mmol/L (3.5-5.1)
[2020-11-23] MEDS ORDERED: NA CHLORIDE 0.9% 500 ML ONE (00:17)
--- NOTE | 2020-11-23 00:37 | EDPHYS ---
Physician Documentation [facility] Name: Rosina Odonnell Age: 85 yrs Sex: Female : 1935 Arrival Date: 11/22/2020 Time: 21:25 Bed 3 Private MD: ED Physician Mary Jane Streeter HPI: 11/22 22:00 This 85 yrs old Female presents to ER via EMS with complaints of Unresponsive.jr8 22:00 Onset: The symptoms/episode began/occurred acutely, today. Duration: This was a single jr8 incident. Context: occurred at home, occurred while the patient was at rest. The symptoms are alleviated by nothing. The symptoms are aggravated by nothing. Associated signs and symptoms: The patient has no apparent associated signs or symptoms. Severity of symptoms: At their worst the symptoms were moderate in the emergency department the symptoms have resolved. It is unknown whether or not the patient has had similar symptoms in the past. The patient has not recently seen a physician. Family told EMS that they went to check on her in her room. Stated that they found her unresponsive. Tried waking her up but was unable to. Had called neighbor who could not as well. EMS called at that time. By the time they had arrived patient was awake and without confusion. Patient alert and oriented to person, place, time, event in ED. Does not recall event. Stated that for the past few days has noted that she has been incontinent. History of seizures and MS. Per patient compliant with all her meds . Historical: - Allergies: 21:37 Augmentin ES-600; ea 21:37 Sulfa (Sulfonamide Antibiotics); ea - Home Meds: 21:37 Xanax Oral [Active]; [place] 7.5-325 mg Oral tab 1 tab every 6 hours [Active]; ea methocarbamol 750 mg Oral tab twice a day [Active]; Meclizine Oral [Active]; amlodipine oral [Active]; carvedilol 3.125 mg Oral tab 1 tab 2 times per day [Active]; losartan Oral [Active]; - PMHx: 21:37 Seizures; osteoarthritis; MS; Hypertension; Depression; Asthma; ea - Immunization history:: Adult Immunizations up to date. - Social history:: Smoking status: Patient denies any tobacco usage or history of. ROS: 22:00 Eyes: Negative for injury, pain, redness, and discharge, ENT: Negative for injury, jr8 pain, and discharge, Neck: Negative for injury, pain, and swelling, Cardiovascular: Negative for chest pain, palpitations, and edema, Respiratory: Negative for shortness of breath, cough, wheezing, and pleuritic chest pain, Abdomen/GI: Negative for abdominal pain, nausea, vomiting, diarrhea, and constipation, Back: Negative for injury and pain, MS/Extremity: Negative for injury and deformity, Skin: Negative for injury, rash, and discoloration. 22:00 Neuro: Positive for loss of consciousness. Exam: 22:00 Radiologist reports: No acute findings jr8 22:00 Eyes: Pupils equal round and reactive to light, extra-ocular motions intact. Lids and lashes normal. Conjunctiva and sclera are non-icteric and not injected. Cornea within normal limits. Periorbital areas with no swelling, redness, or edema. ENT: Nares patent. No nasal discharge, no septal abnormalities noted. Tympanic membranes are normal and external auditory canals are clear. Oropharynx with no redness, swelling, or masses, exudates, or evidence of obstruction, uvula midline. Mucous membranes moist. Neck: Trachea midline, no thyromegaly or masses palpated, and no cervical lymphadenopathy. Supple, full range of motion without nuchal rigidity, or vertebral point tenderness. No Meningismus. Cardiovascular: Regular rate and rhythm with a normal S1 and S2. No gallops, murmurs, or rubs. Normal PMI, no JVD. No pulse deficits. Respiratory: Lungs have equal breath sounds bilaterally, clear to auscultation and percussion. No rales, rhonchi or wheezes noted. No increased work of breathing, no retractions or nasal flaring. Abdomen/GI: Soft, non-tender, with normal bowel sounds. No distension or tympany. No guarding or rebound. No evidence of tenderness throughout. Back: No spinal tenderness. No costovertebral tenderness. Full range of motion. Skin: Warm, dry with normal turgor. Normal color with no rashes, no lesions, and no evidence of cellulitis. MS/ Extremity: Pulses equal, no cyanosis. Neurovascular intact. Full, normal range of motion. Neuro: Awake and alert, GCS 15, oriented to person, place, time, and situation. Cranial nerves II-XII grossly intact. Motor strength 5/5 in all extremities. Sensory grossly intact. Vital Signs: 21:20 BP 125 / 77; Pulse 66; Resp 16; Temp 98.2; Pulse Ox 100% ; rr5 21:56 BP 116 / 67; Pulse 61; Resp 18; Pulse Ox 98% ; rr5 22:01 Weight 47.63 kg; Height 5 ft. 6 in. (167.64 cm); rr5 22:34 BP 99 / 58; Pulse 66; Resp 18; Pulse Ox 98% ; ea 22:01 Body Mass Index 16.95 (47.63 kg, 167.64 cm) rr5 NIH Stroke Scale Scores: 21:50 NIHSS Score: 0 rr5 MDM: 21:33 Patient medically screened. [facility] 11/23 00:29 Data reviewed: vital signs, nurses notes, lab test result(s), EKG, radiologic studies, [facility] CT scan, plain films. Data interpreted: Pulse oximetry: on room air is 98 %. Interpretation: normal. Counseling: I had a detailed discussion with the patient and/or guardian regarding: the historical points, exam findings, and any diagnostic results supporting the discharge/admit diagnosis, lab results, radiology results, the need for outpatient follow up, a network design architect, a family practitioner, a neurologist, to return to the emergency department if symptoms worsen or persist or if there are any questions or concerns that arise at home. Response to treatment: the patient's symptoms have resolved after treatment, patient is well hydrated. 00:31 ED course: Patient without acute findings on labs, ekg, or imagine. Patient at [facility] baseline. No pain or other s/s at this time. Able to ambulate without any problem. No other episodes of syncope, dizziness, or seizures. Will d/c home to f/u with cardiology, neuro, and PCP. Patient good with this . 11/22 21:30 Order name: Basic Metabolic Panel [facility] 11/22 21:30 Order name: CBC with Diff [facility] 11/22 21:30 Order name: Protime (+inr) [facility] 11/22 21:30 Order name: Ptt, Activated [facility] 11/22 21:41 Order name: Glucose, Ancillary Testing; Complete Time: 21:47 [facility] 11/22 22:07 Order name: CBC with Automated Diff; Complete Time: 22:17 [facility] 11/22 21:30 Order name: CT Stroke Brain w/o Contrast [facility] 11/22 21:30 Order name: Stroke CXR 1 View [facility] 11/22 21:30 Order name: EKG; Complete Time: 21:31 [facility] 11/22 22:15 Order name: Protime (+INR); Complete Time: 22:17 [facility] 11/22 22:15 Order name: PTT, Activated Partial Thromb; Complete Time: 22:17 [facility] 11/22 23:01 Order name: CT; Complete Time: 23:05 [facility] 11/22 23:11 Order name: Basic Metabolic Panel; Complete Time: 23: [facility] 11/22 21:30 Order name: Accucheck; Complete Time: 21:30 [facility] 11/22 21:30 Order name: Cardiac monitoring; Complete Time: :30 [facility] 11/22 21:30 Order name: EKG - Nurse/Tech; Complete Time: :31 [facility] 11/22 21:30 Order name: IV Saline Lock; Complete Time: : [facility] 11/22 21:30 Order name: Labs collected and sent; Complete Time: 21:38 [facility] 11/22 21:30 Order name: NPO; Complete Time: : [facility] 11/22 21:30 Order name: O2 Per Protocol; Complete Time: : [facility] 11/22 21:30 Order name: O2 Sat Monitoring; Complete Time: : [facility] 11/22 21:30 Order name: Stroke Swallow Screen; Complete Time: 21:57 rr5 Administered Medications: 00:00 Drug: NS 0.9% 500 ml Route: IV; Rate: bolus; Site: left forearm; rr5 00:59 Follow up: Response: No adverse reaction; IV Status: Completed infusion; IV Intake: ea 500ml Disposition: 02:13 Co-signature as Attending Physician, Mary Jane Streeter MD. ma2 Disposition: 11/23/20 00:36 Discharged to Home. Impression: Seizure. - Condition is Stable. - Discharge Instructions: Seizure, Adult. - Medication Reconciliation Form, Thank You Letter, Antibiotic Education, Prescription Opioid Use form. - Follow up: Private Physician; When: 2 - 3 days; Reason: Recheck today's complaints, Continuance of care, Re-evaluation by your physician. - Problem is new. - Symptoms are resolved. NIH Stroke Scale - NIH Stroke Score Date: 11/22/2020 Time: 21:50 Total Score = 0 1a. Level of Consciousness (LOC) - 0(Alert) 1b. Level of Consciousness (LOC) (Year \T\ Age) - 0(Both) 1c. LOC Commands (Open \T\ Closes Eyes/Equipment Application Specialist) - 0(Both) 2. Best Gaze (Lateral Gaze Paresis) - 0(Normal) 3. Visual Field Loss - 0(No visual loss) 4. Facial Palsy - 0(Normal) 5a. Left Arm: Motor (10-second hold) - 0(No drift) 5b. Right Arm: Motor (10-second hold) - 0(No drift) 6a. Left Leg: Motor (5-second hold - always test supine) - 0(No drift) 6b. Right Leg: Motor (5-second hold - always test supine) - 0(No drift) 7. Limb Ataxia (finger/nose \T\ heel/merrill - test with eyes open) - 0(Absent) 8. Sensory Loss (pinprick arms/legs/face) - 0(Normal) 9. Best Language: Aphasia (description/naming/reading) - 0(No aphasia) 10. Dysarthria (speech clarity - read or repeat words) - 0(Normal) 11. Extinction and Inattention (visual/tactile/auditory/spatial/personal) - 0(No abnormality) Initials: rr5 Signatures: Dispatcher [employer] EDMS Abdiaziz Santillan PA PA jr8 Diya Castañeda RN RN ea Alzahri, Mohammad, MD MD la2 Tunde Dominique RN RN rr5 Corrections: (The following items were deleted from the chart) 00:59 00:36 11/23/2020 00:36 Discharged to Home. Impression: Seizure. Condition is ea Stable. Forms are Medication Reconciliation Form, Thank You Letter, Antibiotic Education, Prescription Opioid Use. Follow up: Private Physician; When: 2 - 3 days; Reason: Recheck today's complaints, Continuance of care, Re-evaluation by your physician. Problem is new. Symptoms are resolved. jr8
--- NOTE | 2020-11-23 00:37 | ER ---
Nurse's Notes [facility] Name: Rosina Odonnell Age: 85 yrs Sex: Female : 1935 Arrival Date: 11/22/2020 Time: 21:25 Bed 3 Private MD: Diagnosis: Seizure Presentation: 11/22 21:20 Coronavirus screen: Client denies travel out of the [place] in the last 14 days. At this rr5 time, the client does not indicate any symptoms associated with coronavirus-19. Ebola Screen: Patient negative for fever greater than or equal to 101.5 degrees Fahrenheit, and additional compatible Ebola Virus Disease symptoms Patient denies exposure to infectious person. Patient denies travel to an Ebola-affected area in the 21 days before illness onset. Initial Sepsis Screen: Does the patient meet any 2 criteria? No. Patient's initial sepsis screen is negative. Does the patient have a suspected source of infection? No. Patient's initial sepsis screen is negative. Risk Assessment: Do you want to hurt yourself or someone else? Patient reports no desire to harm self or others. Onset of symptoms was November 22, 2020. 21:20 Acuity: [place] 2 rr5 21:30 Chief complaint: EMS states: reports finding pt unresponsive around 1945, ea reports trying to wake her up. Pt reported to EMS that she has a historty of seizures and MS. He was unsure if it was a MS attack or seizure. EMS reported pt was alert and oriented upon arrival . Coronavirus screen: At this time, the client does not indicate any symptoms associated with coronavirus-19. Ebola Screen: No symptoms or risks identified at this time. Initial Sepsis Screen: Does the patient meet any 2 criteria? Yes Does the patient have a suspected source of infection? No. Patient's initial sepsis screen is negative. Risk Assessment: Do you want to hurt yourself or someone else? Patient reports no desire to harm self or others. Onset of symptoms was November 22, 2020. 21:30 Method Of Arrival: EMS: [facility] ea 21:30 Acuity: [place] 3 ea Historical: - Allergies: 21:37 Augmentin ES-600; ea 21:37 Sulfa (Sulfonamide Antibiotics); ea - Home Meds: 21:37 Xanax Oral [Active]; [place] 7.5-325 mg Oral tab 1 tab every 6 hours [Active]; ea methocarbamol 750 mg Oral tab twice a day [Active]; Meclizine Oral [Active]; amlodipine oral [Active]; carvedilol 3.125 mg Oral tab 1 tab 2 times per day [Active]; losartan Oral [Active]; - PMHx: 21:37 Seizures; osteoarthritis; MS; Hypertension; Depression; Asthma; ea - Immunization history:: Adult Immunizations up to date. - Social history:: Smoking status: Patient denies any tobacco usage or history of. Screenin:35 Abuse screen: Denies threats or abuse. Nutritional screening: No deficits noted. ea Tuberculosis screening: No symptoms or risk factors identified. Fall Risk IV access (20 points). 21:55 VAN Screening: Arm Drift: Patient shows no arm weakness. Patient is VAN negative. rr5 Patient has been NPO before screening. The patient is alert, able to follow commands. The patient does not exhibit slurred or garbled speech The patient is not exhibiting difficulty speaking. The patient does not exhibit difficulty understanding words. The patient is able to swallow own secretions with no drooling or need for suction. Patient tolerated one teaspoon of water. No drooling, immediate coughing, gurgling, or clearing of the throat was noted. The patient tolerated 90mL of water. No drooling, immediate coughing, gurgling, or clearing of the throat was noted. The patient passed the bedside swallow screening. Oral medications may be given as ordered. Contact Physician for further diet orders. Provider notified of bedside swallow screening results: Abdiaziz LIRIANO. Assessment: 21:37 General: Appears in no apparent distress. Behavior is calm, cooperative, appropriate ea for age. Pain: Denies pain. Neuro: Level of Consciousness is awake, alert, obeys commands, Oriented to person, place, time, situation. Neuro: Field Foreman are equal bilaterally Speech is normal, Facial symmetry appears normal. Cardiovascular: Patient's skin is warm and dry. Respiratory: Airway is patent Respiratory effort is even, unlabored, Respiratory pattern is regular, symmetrical. Derm: Skin is pink, warm \T\ dry. 22:34 Reassessment: Patient and/or family updated on plan of care and expected duration. Pain ea level reassessed. Patient is alert, oriented x 3, equal unlabored respirations, skin warm/dry/pink. Vital Signs: 21:20 BP 125 / 77; Pulse 66; Resp 16; Temp 98.2; Pulse Ox 100% ; rr5 21:56 BP 116 / 67; Pulse 61; Resp 18; Pulse Ox 98% ; rr5 22:01 Weight 47.63 kg; Height 5 ft. 6 in. (167.64 cm); rr5 22:34 BP 99 / 58; Pulse 66; Resp 18; Pulse Ox 98% ; ea 22:01 Body Mass Index 16.95 (47.63 kg, 167.64 cm) rr5 NIH Stroke Scale Scores: 21:50 NIHSS Score: 0 rr5 ED Course: 21:25 Patient arrived in ED. mw2 21:27 Tunde Dominique RN is Primary Nurse. rr5 21:32 Triage completed. rr5 21:32 Abdiaziz Santillan PA is PHCP. jr8 21:32 Mary Jane Streeter MD is Attending Physician. jr8 21:35 Arm band placed on right wrist. Patient placed in an exam room, on a stretcher, on ea pulse oximetry. 21:35 Patient has correct armband on for positive identification. Placed in gown. Bed in low ea position. Call light in reach. Side rails up X2. court recording monitor on. Pulse ox on. NIBP on. 21:35 Inserted saline lock: 20 gauge in left forearm, using aseptic technique. ,using aseptic rr5 technique. inserted by teresa WOLFF Blood collected. 21:40 EKG done, by ED staff, reviewed by Abdiaziz LIRIANO. rr5 03/12 00:53 No provider procedures requiring assistance completed. ea 00:55 Stroke CXR 1 View In Process Unspecified. EDMS 00:58 IV discontinued, intact, bleeding controlled, No redness/swelling at site. Pressure ea dressing applied. Administered Medications: 00:00 Drug: NS 0.9% 500 ml Route: IV; Rate: bolus; Site: left forearm; rr5 00:59 Follow up: Response: No adverse reaction; IV Status: Completed infusion; IV Intake: ea 500ml Intake: 00:59 IV: 500ml; Total: 500ml. ea Outcome: 00:36 Discharge ordered by . jr8 00:58 Discharged to home via wheelchair, with family. ea 00:58 Condition: stable 00:58 Discharge instructions given to patient, Instructed on discharge instructions, follow up and referral plans. Demonstrated understanding of instructions, follow-up care. 00:59 Patient left the ED. alan NIH Stroke Scale - NIH Stroke Score Date: 11/22/2020 Time: 21:50 Total Score = 0 1a. Level of Consciousness (LOC) - 0(Alert) 1b. Level of Consciousness (LOC) (Year \T\ Age) - 0(Both) 1c. LOC Commands (Open \T\ Closes Eyes/Scaffolder) - 0(Both) 2. Best Gaze (Lateral Gaze Paresis) - 0(Normal) 3. Visual Field Loss - 0(No visual loss) 4. Facial Palsy - 0(Normal) 5a. Left Arm: Motor (10-second hold) - 0(No drift) 5b. Right Arm: Motor (10-second hold) - 0(No drift) 6a. Left Leg: Motor (5-second hold - always test supine) - 0(No drift) 6b. Right Leg: Motor (5-second hold - always test supine) - 0(No drift) 7. Limb Ataxia (finger/nose \T\ heel/merrill - test with eyes open) - 0(Absent) 8. Sensory Loss (pinprick arms/legs/face) - 0(Normal) 9. Best Language: Aphasia (description/naming/reading) - 0(No aphasia) 10. Dysarthria (speech clarity - read or repeat words) - 0(Normal) 11. Extinction and Inattention (visual/tactile/auditory/spatial/personal) - 0(No abnormality) Initials: rr5 Signatures: Dispatcher [employer] EDMS Abdiaziz Santillan PA PA jr8 Diya Castañeda, RN RN Kassie Wilson mw2 Tunde Dominique RN RN rr5
[2020-11-23 01:13] VITALS: O2SAT 98
[2020-11-23 01:14] VITALS: BP 99/58
--- NOTE | 2020-11-23 06:49 | EKG ---
Test Date: 2020-11-22 Test Time: 21:31:53 Soap Boiler: RR MEASUREMENT RESULTS: Intervals: Rate: 62 SC: 186 QRSD: 90 QT: 438 QTc: 444 [place]: P: 66 SC: 186 QRS: 8 T: 37 INTERPRETIVE STATEMENTS: Sinus rhythm with marked sinus arrhythmia Possible Inferior infarct, age undetermined Cannot rule out Anterior infarct, age undetermined Abnormal ECG Compared to ECG 03/27/2019 20:44:24 Myocardial infarct finding now present Electronically Signed On 11-23-20 06:49:01 OPHTHALMIC PHOTOGRAPHER by Tobias Lisa
--- NOTE | 2020-11-23 08:34 | RAD REPORT ---
EXAM DESCRIPTION: RAD - Chest Single View - 11/22/2020 9:44 pm CLINICAL HISTORY: unresponsive Chest pain. COMPARISON: Chest Pa And Lat (2 Views) dated 03/27/2019; Chest Pa And Lat (2 Views) dated 09/16/2018; C hest Single View dated 02/03/2018; Chest Single View dated 08/24/2017 FINDINGS: Portable technique limits examination quality. The lungs are grossly clear. The heart is normal in size. No displaced fractures.Left total shoulder arthroplasty noted. IMPRESSION: No acute intrathoracic process suspected.
== END 2020-11-23 00:59 | disposition home or self-care (01) ==
LOC: ER 21:23
DX: R56.9 Unspecified convulsions (principal); G35 Multiple sclerosis; I10 Essential (primary) hypertension; F32.9 Major depressive disorder, single episode, unspecified; J45.909 Unspecified asthma, uncomplicated; M19.90 Unspecified osteoarthritis, unspecified site
CPT/HCPCS: 36415; 70450; 71045; 80048; 82947; 85025; 85610; 85730; 93005; 96360; 99285

== ENCOUNTER 2020-12-20 12:58 | Emergency (ER) | payer SELFPAY ==
--- OUTSIDE RECORDS SUMMARY | 2020-12-20 13:03 | XMS REPORT | Continuity of Care Document ---
:1935 Author Organization [facility] t Address [address] [place] [address] Care Team Providers Name Role Phone Ramsey [...] HUMERUS FX 5-23 19:37:00 l OPEN 00:00: Raymond RIGHT 00 HUMERUS FX Active 02/03/2018 [facility] Common Problem Active 2020-12-08 Memor ia peroneal 3-16 22:12:14 l nerve Common 00:00: Raymond lesion peroneal 00 (disorder) nerve lesion (disorder) Active 11/27/2016 Problem 12/08/2020 [facility] GI BLEED, Diagnosis Active 2015-11-01 Memoria ANEMIA 2-08 21:55:00 l GI 00:00: [place] BLEED, 00 ANEMIA Active 10/22/2015 [facility] Problem Active 2020-12-08 M emoria on-related 1- 22:12:14 l symptomati 00:00: [place] n c 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) 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) Active 09/27/2015 Problem 12/08/2020 [facility] Anemia Problem Resolve 2020-12-08 Edinson david (disorder) d 22:12:14 l Anemia [place] (disorder) Resolved Problem 12/08/2020 [facility] Anxiety Problem Resolve 2020-12-08 Mem oria (finding) d 22:12:14 l Anxiety [place] (finding) Resolved Problem 12/08/2020 [facility] Asthma Problem Resolve 2020-12-08 Edinson david (disorder) d 22:12:14 l Asthma Raymond (disorder) Resolved Problem 12/08/2020 [facility] Depressive Problem Resolve 2020-12-08 Memoria disorder d 22:12:14 l (disorder) [place] Depressive disorder (disorder) Resolved Problem 12/08/2020 [facility] Hypertensi Problem Resolve 2020-12-08 Memoria ve d 22:12:14 l disorder, Raymond systemic Hypertensi arterial ve (disorder) disorder, systemic arterial (disorder) Resolved Problem 12/08/2020 [facility] Hyperthyro Problem Resolve 2020-12-08 Memoria idism d 22:12:14 l (disorder) [place] Hyperthyro idism (disorder) Resolved Problem 12/08/2020 [facility] Multiple Problem Resolve 2020-12-08 Me moria sclerosis d 22:12:14 l (disorder) Multiple He rmann sclerosis (disorder) Resolved Problem 12/08/2020 [facility] Seizure Problem Resolve 2020-12-08 Mem oria (finding) d 22:12:14 l Seizure Raymond (finding) Resolved Problem 12/08/2020 [facility] Vertigo Problem Active 2020-12-08 Edinson david (finding) 22:12:14 l Vertigo Raymond (finding) Active Problem 12/08/2020 [facility] Migraine Problem Active 2020-12-08 Mem oria (disorder) 22:12:14 l Migraine [place] (disorder) Active Problem 12/08/2020 [facility] GASTROINTE Diagnosis Active 2015-11-01 Memoria STINAL 21:55:00 l HEMORRHAGE [place] , GASTROINTE UNSPECIFIE STINAL D HEMORRHAGE , UNSPECIFIE D Active [facility] ANEMIA, Diagnosis Active 2015-11-01 Me moria UNSPECIFIE 21:55:00 l D ANEMIA, [place] UNSPECIFIE D Active [facility] UNSP Diagnosis Active 2018-02-09 Mem oria FRACTURE 19:37:00 l OF SHAFT UNSP [place] OF FRACTURE HUMERUS, OF SHAFT UNSP OF HUMERUS, UNSP Active [facility] Exacerbati Problem Resolve 2017-2020-12-08 2020-12-08 Memoria on of d 5-12 22:12:14 22:12:14 l multiple 00:00: [place] sclerosis Exacerbati 00 (disorder) on of multiple sclerosis (disorder) Resolved 01/23/2017 Problem 12/08/2020 [facility] Allergies, Adverse Reactions, Alerts Allergy Allergy Status Severity Reaction(s) Onset Inactive Treating Comm ents Source Name Type Date Date Clinician sulfa sulfa Active Memoria drugs drugs l Raymond Augmenti Augmenti Active Memori a n n l Raymond Social History Social Habit Start Date Stop Date Quantity Comments Source Social History 2018-02-04 2018-02-04 Arun elliott 16:15:22 16:15:22 Medications Ordered Filled Start Stop Current Ordering Indication Dosage Frequency Signature Comments Components Source Medication Medication Date Date Medication? 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 Reyvow 50 2019- Yes 50 mg = 1 Mem oria mg oral 7-23 tab, PO, l tablet 19:10: PRN, PRN Raymond 00 migraine, # 8 tab, 2 Refill(s), Pharmacy: [facility] #[id number], 162.56, cm, 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, 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, 50, kg, 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, 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 Levetiracet Yes See Memori a am 750 MG 3-30 Instructio l Oral Tablet 15:45: ns, # 480 H ermann 43 tab, TAKE 1 TABLET BY MOUTH TWICE DAILY, Pharmacy: [facility] #[id number] pregabalin Yes 100 mg = 1 M [...] cap, PO, l Enteric 19:00: BID, 0 [place] Coated 00 Refill(s) Capsule [Cymbalta] carvedilol Yes 12.5 mg = Me moria 12.5 mg 5-10 1 tab, PO, l oral tablet 19:00: BID, # 180 [place] 00 tab, 0 Refill(s) Amlodipine Yes 5 mg = 1 Mem oria 5 MG Oral 5-10 tab, PO, l Tablet 19:00: Daily, # [place] [Norvasc] 00 30 tab, 0 Refill(s) Levetiracet No 750 mg = 1 Memoria am 750 MG 1-03 tab, PO, l Oral Tablet 19:00: BID, X 90 H ermann [Keppra] 00 day, # 180 tab, 1 Refill(s), Pharmacy: [place] [id number] Levetiracet Yes 750 mg = 1 Memoria am 750 MG 5-26 tab, PO, l Oral Tablet 16:13: BID, 0 Herm lori [Keppra] 00 Refill(s) enoxaparin Yes 40 mg = Edinson david 40 mg/0.4 5-26 0.4 mL, l mL 16:07: SUB-Q, Raymond subcutaneou 00 [id number], s solution X 21 day, # 8 mL, 0 Refill(s), Pharmacy: [place] [id number] Ergocalcife Yes 50,000 Edinson david rol 61818 5-26 IntlUnit = l UNT Oral 16:07: 1 cap, PO, Her pearson Capsule 00 Q7D, # 5 cap, 0 Refill(s), Pharmacy: [place] [id number] Calcium Yes 1 tab, Memoria Carbonate 5-26 CHEW, BID, l 1250 MG / 16:07: # 60 tab, Her pearson Cholecalcif 00 0 lucia 400 Refill(s), UNT Pharmacy: [facility] [place] [address] oxyCODONE 5 No Notes: Edinson david mg oral 5-26 (Same as: l tablet 15:42: Roxicodone Cassidy [...] OsCal-D Ergocalcife No Notes: Edinson david rol [id number] 5-25 (Same as: l UNT Oral 12:00: Vitamin D) Her pearson Capsule 00 "Do Not Crush" Thyroxine No Notes: Memori a 5-25 Take 1 l 11:30: hour [place] 00 before or 2 hours after meal; [...] Memori a 5-25 (Same l 02:00: as:Singula ir) Ondansetron No 4 mg, Memor ia 5-25 Route: l 00:10: IVP, ONCE, [place] 00 Dosing Weight 51.818, kg, PRN Nausea & Vomiting, Start date: 02/04/18 19:10:00 CDT Hydralazine No 10 mg, Edinson david 5-25 Route: l 00:10: IVP, [place] 00 Q20Min, Dosing Weight 51.818, kg, PRN Elevated BP, Start date: 02/04/18 19:10:00 CDT, Duration: 2 doses or times, Stop date: Limited # of times Labetalol No 10 mg, Memori a 5-25 Route: l 00:10: IVP, Raymond 00 Q5Min, Dosing Weight 51.818, kg, PRN Elevated BP, Start date: 02/04/18 19:10:00 CDT, Duration: 5 doses or times, Stop date: Limited # of times Flumazenil No 0.2 mg, Edinson david 5-25 Route: l 00:10: IVP, PRN, Raymond 00 Dosing Weight 51.818, kg, PRN Benzodiaze pine Reversal, Initial dose, Start date: 02/04/18 19:10:00 CDT, Duration: 30 day, Stop date: 03/06/18 19:09:00 CDT Naloxone No 0.4 mg, Memori a 5-25 Route: l 00:10: IVP, [place] 00 Q2MIN, Dosing Weight 51.818, kg, PRN Narcotic Reversal, Start date: 02/04/18 19:10:00 CDT, Duration: 8 doses or times, Stop date: Limited # of times Hydromorpho 2017-0 No 0.5 mg, Mem oria ne 5-25 Route: l 00:10: IVP, [place] 00 Q5Min, Dosing Weight 51.818, kg, PRN Pain Score 7-10, Start date: 02/04/18 19:10:00 CDT, Duration: 4 doses or times, Stop date: Limited # of times Oxycodone 0 No 5 mg, Memoria 5-25 Route: PO, l 00:10: Drug form: [place] 00 TAB, Q4H, Dosing Weight 51.818, kg, PRN Pain Score 4-6, Start date: 02/04/18 19:10:00 CDT, Duration: 30 day, Stop date: 03/06/18 19:09:00 CDT ondansetron No Route: IV, Memoria (ANES) 5-24 Drug form: l 23:58: INJ, ONCE, Stop date: 02/04/18 18:58:00 CDT albuterol No Route: Memori a (ANES) 5-24 INHALATION l 23:16: , Drug form: AERO/A, ONCE, Stop date: 02/04/18 18:16:00 CDT acetaminoph 0 No Route: IV, Memoria en (ANES) 5-24 Drug form: l 10 mg 23:00: INJ, Start [place] n date: 02/04/18 18:00:00 CDT, Stop date: 02/04/18 19:00:00 CDT hydromorpho 0 No Route: IV, Memoria ne (ANES) 5-24 [...] INJ, ONCE, Stop date: 02/04/18 17:10:00 CDT ePHEDrine No Route: IV, Me moria (ANES) 5-24 Drug form: l 22:05: INJ, ONCE, Stop date: 02/04/18 17:05:00 CDT ceFAZolin No Route: IV, Me moria [...] CDT, Stop date: 02/04/18 16:35:00 CDT Lovenox 0 No Notes: Memoria 5-24 (Same as: l [...] david formoterol 5-24 [id number] l 13:00: [address],[address] Inhale 2 puff(s) by mouth 2 times a day Carlos Chiu Mflauren_ Don't use after_ Tramadol No Notes: Not Mem oria 5-24 to exceed l 11:00: 400mg/day. (Same As: Ultram) Acetaminoph No Notes: Edinson david en 325 MG / 5-24 (Same as: l Hydrocodone 10:55: [place] Cassidy nn Bitartrate 00 325/5) Do 5 MG Oral not exceed Tablet 4gm/day of [Cranford acetaminop 5/325] hen. Ondansetron No Notes: Edinson david 5-24 (Same as: l 10:54: Zofran) MEDICATION WASTE Product Size: 4 mg Product Wasted: ___ mg Acetaminoph No Notes: Edinson david en 325 MG / 5-24 (Same as: l Hydrocodone 10:54: [place] Cassidy nn Bitartrate 00 325/5) Do 5 MG Oral not exceed Tablet 4gm/day of acetaminop hen. Acetaminoph No Notes: Do M emoria en -24 not exceed l 10:54: 4 gm/day. (Same as: Tylenol) Dilaudid No 1 mg, Memoria 24 Route: l 10:26: IVP, ONCE, Dosing Weight [...] oria 2-12 IV push l 23:00: reconstitu [place] 00 te with 10 ml 0.9% sodium chloride and push over 2 minutes. (Same as: Protonix) Amino Acids No Notes: Edinson david 4.25% with 2-12 Same as: l 5% Dextrose 18:00: ClinimixE H ermann and 00 Electrolyte s (Clinimix E Sulfite-Jose Roberto e) 1,000 mL + multivitam Sodium No 250 mL, Memoria Chloride 10-25 Rate: On l 0.9% 22:16: call for [place] (titrate) 00 use with 250 mL blood product administra tion, Dosing Weight 47.001, kg, Route: IV, Total Volume: 250, Start Date: 10/25/15 16:16:00, Duration: 30 day, Stop date: 11/24/15 16:15:00, Replace Every: 24 hr Sodium No 100 mL, Memoria Chloride 10-25 Rate: 10 l 0.154 20:40: ml/hr, Raymond MEQ/ML 00 Infuse Injectable over: 10 Solution hr, Route: IVPB, Dosing Weight 47.001 kg, Total Volume: 100, Infuse at 8 mg / hr for 72 hours for GI bleeding, Start date: 10/25/15 14:40:00, Duration: 72 hr, Stop date: 10/28/15 14:39:00 Reglan No Notes: Memoria 2-11 (Same as: l 18:00: Reglan) [place] 00 Morphine No Notes: Memoria 2-11 (Same l 14:51: as:MORPhin [place] 00 e Sulfate) Calcium No Notes: Memoria Carbonate 2-11 (Same As: l 500 MG 08:39: Tums) [place] Chewable 00 Calcium Tablet Carbonate 500 mg = 200 mg elemental calcium Dose = mg calcium carbonate ( mg elemental calcium) Magnesium No Notes: Memori a Sulfate 2-11 WASTE: F/P l 08:39: - Sink; E Raymond 00 - Municipal Trash Bin Neutra-Phos No Notes: Edinson david 2-11 (Same as: l 08:39: Neutra-Mary Raymond 00 s) Each 1.25 gm pkt has 250mg phosphorou s. Mix w/2.5oz water and stir. Calcium No Notes: Memoria Gluconate 2-11 WASTE: F/P l 08:39: - Sink; E Raymond 00 - Municipal Trash Bin Magnesium No Notes: Memori a Oxide 2-11 (Same as: l 08:39: Mag-Ox [place] 00 400) Magnesium oxide 760sb=342b g elemental magnesium Dose=____m g magnesium oxide (___mg elemental magnesium) potassium No Notes: Memori a phosphate 2-11 (Same as: l 08:39: K Raymond 00 Phosphate. ) sodium No 30 mmol, Memoria phosphate 2-11 250 mL, l 08:39: Route: Raymond 00 IVPB, Drug form: INJ, PRN, Dosing [...] 2-11 (Same as: l Sodium 08:39: K [place] Chloride 00 Phosphate. 0.9% IV 250 ) 1 mMol mL phoshate has 1.47 mEq potassium Infuse over 4 hours potassium No Notes: Memori a chloride 2-11 (Same as: l 08:39: K-Dur 20) [place] 00 "Do Not Crush" With food and full glass of water Amitriptyli No Notes: Edinson david ne 2-11 (Same as: l 03:00: Elavil) Raymond 00 morphine No Notes: Memoria Sulfate 2-10 (Same l 21:27: as:MORPhin [place] 00 e Sulfate) Phenergan No Notes: Do Mem oria 2-10 not give l 21:26: IV push. Raymond (Same as: Phenergan) carvedilol No Notes: Memor ia 2-10 Give with l 15:00: food. [place] 00 (Same As: Coreg) 24 HR No 500 mg, 1 Memoria Etodolac 2-10 tab, l 500 MG 15:00: Route: PO, Cassidy nn Extended 00 Drug form: Release ERTAB, Tablet BID, Dosing Weight 47.001, kg, Start date: 10/24/15 9:00:00, Duration: 30 day, Stop date: 11/22/15 17:00:00 Nexium No 40 mg, Memoria 2-10 Route: PO, l 15:00: Daily, [place] Dosing Weight 47.001, kg, Start date: 10/24/15 9:00:00, Duration: 30 day, Stop date: 11/22/15 9:00:00 168 HR No Notes: Memoria Clonidine 2-10 Patch l 0.65480 14:44: delivers [place] n MG/HR 00 0.1 mg/24 Transdermal hours; Patch Patch is applied weekly. "Remove old patch before applicatio n of new patch" (Same As: Catapres-T TS-1) Advair No Notes: Memoria Diskus 500 2-10 (Same as: l mcg-50 mcg 14:44: Advair) Herm lori inhalation 00 powder Methocarbam No Notes: Edinson david ol 2-10 (Same l 13:56: as:Robaxin Raymond ) Meclizine No Notes: Memori a 2-10 (Same as: l 13:56: Antivert) Raymond Hyoscyamine No Notes: Edinson david 2-10 (Same as: l 13:56: Levsin) [place] 00 Take 30 min before meal Acetaminoph No Notes: Edinson david en 325 MG / 2-10 (Same as: l Hydrocodone 13:55: Cranford Cassidy nn Bitartrate 00 325/5) Do 5 MG Oral not exceed Tablet 4gm/day of [[place] acetaminop 5/325] hen. Alprazolam No Notes: Memor [...] Same as: l 200 mL 04:42: Cardene Raymond (Titrate.) 00 Concentrat IV 40 mg ion: (0.2 mg /1 ml ) Labetalol No Notes: Memori a 2-10 (Same as: l 04:42: Normodyne, Raymond 00 Trandate) Push over 2 minutes Give bolus over 2-3 minutes. Zofran No Notes: Memoria 2-10 (Same as: l 01:05: Zofran) Raymond 00 MEDICATION WASTE Product Size: 4 mg Product Wasted: ___ mg Ondansetron No Notes: Edinson david 2-09 (Same as: l 23:49: Zofran) [place] 00 MEDICATION WASTE Product Size: 4 mg Product Wasted: ___ mg Sublimaze No Notes: Memori a 2-09 (Same as: l 23:30: Sublimaze) Raymond Preservat cely free. midazolam No Notes: Memori a 2-09 (Same as: l 23:30: Versed) Raymond 00 MEDICATION WASTE Product Size: 2 mg Product Wasted: ___ mg Thyroxine No Notes: Memori a 2-09 Take 1 l 12:30: hour Raymond 00 before or 2 hours after meal; Enteral feeds may interefere with the absorption of this medication . (Same as:Levothr oid) Sublimaze No Notes: Memori a 2-09 (Same as: l 03:47: Sublimaze) Preservat cely free. Saline No Notes: Memoria Flush 0.9% 2- (Same as: l 03:00: BD [place] 00 Posiflush) sennosides, No Notes: Edinson david [facility] 2- (Same as: l 03:00: Senokot) Docusate No Notes: Memoria 2- (Same as: l 03:00: Colace) [place] (Do Not Crush) Singulair No Notes: Memori a 2- (Same l 03:00: as:Singula [place] 00 ir) budesonide- No Notes: Edinson david formoterol 10-22 (Same as: l 160 mcg-4.5 23:00: Symbicort) [place] mcg/inh 00 WASTE: inhalation Aerosol - aerosol Return to with Pharmacy adapter Seroquel No Notes: Memoria 2-08 (Same as: l 23:00: SEROquel) [place] 00 Levetiracet No Notes: Edinson david am 750 MG 2-08 Same as: l Oral Tablet 23:00: Keppra Herm lori [Keppra] 00 Cymbalta No Notes: Memoria 2-08 (Same as: l 23:00: Cymbalta) [place] (Do Not Crush) Advair No 1 puff, Memoria Diskus 500 08 Route: l mcg-50 mcg 23:00: INHALATION H [...] food, # 1 tab, 0 Refill(s) Acetaminoph Yes 2 tab, PO, Memoria en 325 MG / 2-08 Q6H, PRN l Hydrocodone 19:51: for pain, H ermann Bitartrate 00 0 5 MG Oral Refill(s) Tablet [Cranford 5/325] carvedilol Yes 3.125 mg = M emoria 3.125 mg 2-08 1 tab, PO, l oral tablet 19:51: BID, # 180 [place] 00 tab, 1 Refill(s) dexlansopra No 60 [...] 1 patch, Memoria Clonidine 2-08 TOP, l 0.86714 19:51: qWeek, # [place] n MG/HR 00 12 patch, Transdermal 0 Patch Refill(s) quetiapine Yes 25 mg = 1 Me moria 25 MG Oral 2-08 tab, PO, l Tablet 19:51: BID, 0 [place] [Seroquel] 00 Refill(s) linaclotide Yes 145 Memori a 0.145 MG 2-08 microgram l Oral 19:51: = 1 cap, Raymond Capsule 00 PO, Daily, [Linzess] 30 minutes [...] ia 2-08 Daily, 0 l 19:51: Refill(s) [place] 00 levocetiriz Yes 5 mg = 1 [...] moria 2-08 BID, 0 l 19:49: Refill(s) [place] 00 Sodium No 100 mL, Memoria Chloride 2-08 Rate: 10 l 0.154 18:59: ml/hr, Raymond MEQ/ML 00 Infuse Injectable over: 10 Solution hr, Route: IVPB, Dosing Weight 47.001 kg, Total Volume: 100, Infuse at 8 mg / hr for 72 hours for GI bleeding, Start date: 10/22/15 12:59:00, Duration: 72 hr, Stop date: 10/25/15 12:58:00 Saline No Notes: Memoria Flush 0.9% 2-08 (Same as: l 18:55: BD Raymond 00 Posiflush) Vital Signs Vital Name Observation Time Observation Value Comments Source Systolic (mm Hg) 2019-10-06 20:08:00 Edinson rial Raymond Diastolic (mm Hg) 2019-10-06 20:08:00 [facility] orial Raymond Heart Rate 2019-10-06 20:08:00 [facility] [place] Respitory Rate 2019-10-06 20:08:00 Memori al [place] Height 2019-10-06 20:08:00 162.56 cm Memorial [place] Weight 2019-10-06 20:08:00 [facility] [place] BMI Calculated 2019-10-06 20:08:00 Memori al [place] Weight 2019-03-25 18:58:00 [facility] [place] BMI Calculated 2019-03-25 18:58:00 Memori al [place] Height 2019-03-25 18:58:00 167.64 cm [facility] [place] Systolic (mm Hg) 2019-03-25 18:58:00 Edinson rial Raymond Diastolic (mm Hg) 2019-03-25 18:58:00 Mem orial Raymond Heart Rate 2019-03-25 18:58:00 [facility] [place] Respitory Rate 2019-03-25 18:58:00 Memori al [place] BMI Calculated 2019-01-21 18:35:00 Memori al [place] Weight 2019-01-21 18:35:00 [facility] [place] Height 2019-01-21 18:35:00 167.64 cm Memorial [place] Respitory Rate 2019-01-21 18:35:00 Memori al [place] Heart Rate 2019-01-21 18:35:00 [facility] [place] Systolic (mm Hg) 2019-01-21 18:35:00 Edinson rial [place] Diastolic (mm Hg) 2019-01-21 18:35:00 Mem orial [place] BMI Calculated 2018-12-30 14:25:00 Memori al [place] Weight 2018-12-30 14:25:00 [facility] [place] Height 2018-12-30 14:25:00 167.64 cm [facility] [place] Systolic (mm Hg) 2018-12-30 14:25:00 Edinson rial [place] Diastolic (mm Hg) 2018-12-30 14:25:00 Mem orial [place] Respitory Rate 2018-12-30 14:25:00 Memori al [place] Heart Rate 2018-12-30 14:25:00 [facility] [place] Systolic (mm Hg) 2018-10-19 22:38:00 Edinson rial Raymond Diastolic (mm Hg) 2018-10-19 22:38:00 Mem orial [place] Heart Rate 2018-10-19 22:38:00 [facility] [place] Respitory Rate 2018-10-19 22:38:00 Memori al [place] Height 2018-10-19 22:38:00 167.64 cm Memorial [place] Weight 2018-10-19 22:38:00 [facility] [place] BMI Calculated 2018-10-19 22:38:00 Memori al [place] Temperature Oral (F) 2018-02-06 17:35:00 99.2 F [facility] [place] Heart Rate 2018-02-06 17:35:00 [facility] [place] Respitory Rate 2018-02-06 17:35:00 Memori al [place] Systolic (mm Hg) 2018-02-06 17:35:00 Edinosn rial [place] Diastolic (mm Hg) 2018-02-06 17:35:00 Mem orial [place] Heart Rate 2018-02-06 12:40:00 [facility] [place] Respitory Rate 2018-02-06 12:40:00 Memori al [place] Systolic (mm Hg) 2018-02-06 12:40:00 Edinson rial [place] Diastolic (mm Hg) 2018-02-06 12:40:00 Mem orial [place] Temperature Oral (F) 2018-02-06 12:40:00 98.5 F [facility] [place] Respitory Rate 2018-02-06 08:12:00 Memori al [place] Heart Rate 2018-02-06 08:12:00 [facility] [place] Temperature Oral (F) 2018-02-06 08:12:00 97.8 F [facility] [place] Systolic (mm Hg) 2018-02-06 08:12:00 Edinson rial [place] Diastolic (mm Hg) 2018-02-06 08:12:00 Mem orial [place] Height 2018-02-05 02:47:00 167.64 cm [facility] [place] Weight 2018-02-05 02:47:00 [facility] [place] BMI Calculated 2018-02-05 02:47:00 Memori al [place] BMI Calculated 2018-02-04 15:52:00 Memori al [place] Weight 2018-02-04 15:52:00 [facility] [place] Height 2018-02-04 15:52:00 167.64 cm [facility] [place] Respitory Rate 2015-10-28 14:00:00 Memori al [place] Systolic (mm Hg) 2015-10-28 14:00:00 Edinson rial [place] Diastolic (mm Hg) 2015-10-28 14:00:00 Mem orial [place] Temperature Oral (F) 2015-10-28 14:00:00 98.1 F [facility] [place] Heart Rate 2015-10-28 14:00:00 [facility] [place] Respitory Rate 2015-10-28 10:00:00 Memori al [place] Systolic (mm Hg) 2015-10-28 10:00:00 Edinson rial [place] Diastolic (mm Hg) 2015-10-28 10:00:00 Mem orial [place] Heart Rate 2015-10-28 10:00:00 [facility] [place] Temperature Oral (F) 2015-10-28 10:00:00 97.9 F [facility] [place] Respitory Rate 2015-10-28 06:00:00 Memori al [place] Heart Rate 2015-10-28 06:00:00 [facility] [place] Temperature Oral (F) 2015-10-28 06:00:00 97.6 F [facility] [place] Systolic (mm Hg) 2015-10-28 06:00:00 Edinson rial [place] Diastolic (mm Hg) 2015-10-28 06:00:00 Mem orial [place] Height 2015-10-27 02:52:00 152.4 cm [facility] [place] Height 2015-10-22 18:39:00 165.1 cm [facility] [place] Weight 2015-10-22 18:39:00 [facility] [place] BMI Calculated 2015-10-22 18:39:00 Perla latham [place] Procedures Procedure Date / Time Performed Performing Clinician Latia hyman Appendectomy [facility] Raymond Arthroscopy of knee [facility] Her pearson Elbow maneuver [facility] [place] Hysterectomy [facility] [place] Repair of shoulder [facility] Herm lori Encounters Start End Encounter Admission Attending Care Care Encounter Source Date/Time Date/Time Type Type Clinicians Facility Department ID 2020-12-06 2020-12-06 Outpatient Henrietta MHMISCHER MHMISCHER [id number] 15:30:00 15:30:00 [place] 15 [place] 2020-11-15 2020-11-15 Outpatient Henrietta MHMISCHER MHMISCHER [id number] 15:15:00 23:59:59 [place] 14 Ramsey 2020-10-22 2020-10-23 Outpatient MHMISCHER MHMISCHER [id number] 15:23:00 23:59:59 03 2020-07-26 2020-07-26 Outpatient Henriteta MHMISCHER MHMISCHER [id number] 14:00:00 23:59:59 [place] 12 Ramsey 2020-04-05 2020-04-05 Outpatient Henrietta MHMISCHER MHMISCHER [id number] 14:00:00 23:59:59 [place] 11 Ramsey 2020-04-05 2020-04-05 Outpatient Henrietta, MHMISCHER MHMISCHER [id number] 14:00:00 14:00:00 [place] 10 Ramsey 2020-03-01 2020-03-01 Emergency [facility] [id number] 16:34:28 19:52:00 Keren Puckett [id number] [place] [id number] [place] [id number] 2019-10-06 2019-10-06 Outpatient Henrietta MHMISCHER MHMISCHER [id number] 13:15:00 23:59:59 [place] 09 Ramsey 2019-07-01 2019-07-01 Outpatient Henrietta, MHMISCHER MHMISCHER [id number] 16:00:00 16:00:00 [place] 08 Ramsey 2019-03-31 2019-03-31 Outpatient Henrietta, MHMISCHER MHMISCHER [id number] 15:15:00 15:15:00 [place] 03 Ramsey 2019-03-25 2019-03-25 Outpatient Henrietta, MHMISCHER MHMISCHER [id number] 13:00:00 23:59:59 [place] 07 [facility] 2019-02-09 2019-02-09 Outpatient Henrietta, MHMISCHER MHMISCHER [id number] 14:45:00 14:45:00 [place] [facility] 2019-01-21 2019-01-21 Outpatient [place], MHMISCHER MHMISCHER [id number] 13:15:00 23:59:59 [place] [facility] 2018-12-30 2018-12-30 Outpatient [place], MHMISCHER MHMISCHER [id number] 09:00:00 23:59:59 [place] 04 [facility] 2018-10-19 2018-10-19 Outpatient [place], MHMISCHER MHMISCHER [id number] 16:00:00 23:59:59 [place] [facility] 2018-09-17 2018-09-18 Outpatient MHMISCHER MHMISCHER [id number] 15:30:00 23:59:59 2018-08-20 2018-08-21 Outpatient MHMISCHER MHMISCHER [id number] 13:01:00 23:59:59 2018-02-04 2018-02-06 Outpatient [place], [facility] [id number] 03:21:00 16:15:00 Carlos Varma 43 2015-10-22 2015-10-28 Outpatient [facility] [id number] 12:39:00 11:47:00 Emir Rosa Results Test Description Test Time Test Comments Results Result Comments Source HEMATOLOGY 2018-02-06 25.5 [facility] 11:29:00 [place] HEMATOLOGY 2018-02-06 8.6 [facility] 11:29:00 [place] HEMATOLOGY 2018-02-05 215 [facility] 11:44:00 [place] HEMATOLOGY 2018-02-05 33.8 [facility] 11:44:00 [place] HEMATOLOGY 2018-02-05 6.8 [facility] 11:44:00 [place] HEMATOLOGY 2018-02-05 12.7 [facility] 11:44:00 [place] HEMATOLOGY 2018-02-05 8.9 [facility] 11:44:00 [place] HEMATOLOGY 2018-02-05 7.6 [facility] 11:44:00 [place] HEMATOLOGY 2018-02-05 2.79 [facility] 11:44:00 [place] HEMATOLOGY 2018-02-05 1.2 [facility] 11:44:00 [place] HEMATOLOGY 2018-02-05 1.2 [facility] 11:44:00 [place] HEMATOLOGY 2018-02-05 16.0 [facility] 11:44:00 [place] HEMATOLOGY 2018-02-05 15.8 [facility] 11:44:00 [place] HEMATOLOGY 2018-02-05 67.9 [facility] 11:44:00 [place] HEMATOLOGY 2018-02-05 5.1 [facility] 11:44:00 [place] HEMATOLOGY 2018-02-05 0.3 [facility] 11:44:00 [place] PARATHYROID PROFILE 2018-02-05 122.9 [facility] 11:[facility]:00 [place] CHEM PANEL 2018-02-05 12.4 [facility] 11:44:00 [place] ELECTROLYTES 2018-02-05 13.9 [facility] 11:44:00 [place] ELECTROLYTES 2018-02-05 82 [facility] 11:44:00 [place] ELECTROLYTES 2018-02-05 110 [facility] 11:44:00 [place] ELECTROLYTES 2018-02-05 24 [facility] 11:44:00 [place] ELECTROLYTES 2018-02-05 144 [facility] 11:44:00 [place] ELECTROLYTES 2018-02-05 3.9 [facility] 11:44:00 [place] ELECTROLYTES 2018-02-05 20 [facility] 11:44:00 [place] ELECTROLYTES 2018-02-05 0.68 [facility] 11:44:00 [place] ELECTROLYTES 2018-02-05 151 [facility] 11:44:00 [place] ELECTROLYTES 2018-02-05 7.9 [facility] 11:44:00 [place] HEMATOLOGY 2018-02-05 93.8 [facility] 11:44:00 [place] HEMATOLOGY 2018-02-05 11:44:00 Test Item Value Reference Range Interpretation Comme nts MCH (test code = MCH) 31.7 pg 27.0-31.0 [facility] VayxakdZEXVBPBHYY3322-77-48 11:44:0026.2[facility] CADEVKN0581-29-83 09:21:00Negative (02/04/18 4:21 AM)[facility] HermannCHEM PANEL 2018-02-04 09:06:590.9[facility] FkedmeyRQSQFWVPPKBW2594-23-97 09:06:5911.9 [facility] ExsmdlwCEQQIDPHMXIW0920-33-86 09:06:5983[facility] HermannELECTROLYTES 2018-02-04 09:06:598.1[facility] XnewretLBRDVFNMLULH6001-68-47 09:06:5922[facility] EaowcymQRWBXWXYJXEU3402-16-09 09:06:97398Dmvgcemc EpvdohkITUZOYFEBVWJ7840-82-34 09:06:590.67[facility] WeiotisUKJXNIXWHWDY9203-18-42 09:06:5922[facility] NMNLHZCOAJRV3055-12-88 09:06:74203Gwpvboqg SpocdpxLIJLVUNYZJBK4811-41-92 09:06:47328Aivjrbjc WqmrexrJSKHZLQPTIQD4500-05-96 09:06:593.9[facility] EZKFULBACB2681-46-95 09:06:59 Test Item Value Reference Range Interpretation Comments PTT (test code = PTT) 24.7 s 22.9-35.8 [facility] MecfmnyZAJBLZYLJS0947-81-50 09:06:59 Test Item Value Reference Range Interpretation Comments INR (test code = INR) 1.01 1 0.85-1.17 [facility] ZwceoxwJHTOANTSLK1076-65-11 09:06:59 Test Item Value Reference Range Interpretation Comments PT (test code = PT) 13.3 s 12.0-14.7 [facility] NdiwvuwGRXWRHFBLL5861-76-18 09:06:29315Cmyzripc HermannHEMATOLOGY 2018-02-04 09:06:597.1[facility] GnvqzlgZUYZNIDTHY2897-95-19 09:06:5932.2[facility] FpgtgimKZHNSGHWQJ5089-78-25 09:06:593.42[facility] EfpcwohZSVRYWMHAV4224-44-94 09:06:5910.8[facility] GovuybhOJZHVZQSXW3079-87-09 09:06:598.5[facility] WERVMWBFCD4526-94-94 09:06:5933.5[facility] RzruenwKSPRYAEUTK9905-26-50 09:06:59 13.0[facility] ActvmofNBOIWZAJTD0987-56-53 09:06:5994.1[facility] HermannHEMATOLOGY 2018-02-04 09:06:59 Test Item Value Reference Range Interpretation Comments MCH (test code = MCH) 31.5 pg 27.0-31.0 [facility] DdccetpSZRFUGSLDQ5076-75-71 09:06:592.3[facility] HermannHEMATOLOGY 2018-02-04 09:06:591.7[facility] JmrrumlWHCVFYRONR1825-12-68 09:06:595.5[facility] HlwmutgBOQOTJKBDO7702-05-06 09:06:590.8[facility] FyznioqLEBHKQXDHU8332-01-54 09:06:590.1[facility] RjvxudwACANWCTRIF1855-01-52 09:06:590.2[facility] AESGLNRJJI8309-23-25 09:06:591.1[facility] AvattljLQTFMXUOTA0400-44-34 09:06:59 64.6[facility] BgwvkvzWYZDAMGELY7681-02-74 09:06:5919.7[facility] HermannHEMATOLOGY 2018-02-04 09:06:5912.6[facility] NqbilreOXLMDOEYPSVD5114-18-45 11:14:0011.7 [facility] LruprtyTISGGETINYPF4190-62-37 11:14:0099[facility] HermannELECTROLYTES 2015-10-28 11:14:0029[facility] RebbldwEQBQJDSZWHLJ5863-29-57 11:14:99104Lainrlep TomcnmvCLJOCCKUPFVK2177-07-82 11:14:003.7[facility] AjoarzhCVHGDOTBZKYW1943-16-83 11:14:80670Rnrixxmc OdezipwBPGWTHONJAQQ0646-78-57 11:14:000.40[facility] [place] ICWRCJUBCXKV1292-47-32 11:14:008.1[facility] KqmoayqNMEZKSRIHRUQ7819-73-33 11:14:008[facility] QlwfiouRVKMHRODJSAY1191-01-63 11:14:0094[facility] [place] CJIXHABRRD9914-79-41 11:14:0016.6[facility] OjntqziNFUZUSQKSV2024-45-77 11:14:00 7.2[facility] TddsmavYLVUCQVUTB7612-77-68 11:14:02645Prcexwel HermannHEMATOLOGY 2015-10-28 11:14:00 Test Item Value Reference Range Interpretation Comments MCH (test code = MCH) 29.8 pg 27.0-31.0 [facility] GrjlgviINFRBGZBCQ6542-98-42 11:14:0032.9[facility] HermannHEMATOLOGY 2015-10-28 11:14:0090.5[facility] BajujacOSGWFHQTGM9742-49-37 11:14:003.41[facility] DbxrkjpWTCXAHDJIS6460-72-23 11:14:008.1[facility] BtwjphrHXIQNGOMPC0618-65-01 11:14:0030.9[facility] DgjcmurTWARMUGANK6126-60-05 11:14:0010.2[facility] [place] MLUOVWOLNR8386-14-70 11:14:001.1[facility] DnikdseXNZKTVWDFI8119-06-78 11:14:005.4 [facility] BbojrwuZHCOKBROZH7405-07-68 11:14:000.1[facility] HermannHEMATOLOGY 2015-10-28 11:14:001.2[facility] KqxsdohERMUEQYROG5964-56-81 11:14:000.8[facility] ZiwguqvHMSFZZOJRR3745-25-25 11:14:000.6[facility] RjmerokRTDMRMQKMP8138-19-41 11:14:0066.7[facility] EznwbdnNUNZSZXFSX2644-60-79 11:14:0015.1[facility] [place] SRYYPAWTIM4774-25-33 11:14:009.7[facility] YbfwavwBMYWUQRZHQ9659-46-26 11:14:007.4 [facility] GfsukobMQHYXIUQGC6573-40-67 02:47:0030.2[facility] HermannHEMATOLOGY 2015-10-28 02:47:0010.1[facility] MolnjhdORPWSMUDHC6036-85-04 18:09:009.4[facility] NxqzkaaVAFZRDPJSM6834-22-70 18:09:0027.9[facility] VfytojeRSQSSLQODE8523-05-72 10:49:00 Test Item Value Reference Range Interpretation Comments PT (test code = PT) 14.3 s 12.0-14.7 [facility] AlnvdvgGGIICHTCNV6430-07-72 10:49:00 Test Item Value Reference Range Interpretation Comments PTT (test code = PTT) 34.3 s 22.9-35.8 [facility] JhqevxmSTYCYCPULI9007-00-08 10:49:001.08[facility] HermannHEMATOLOGY 2015-10-27 10:49:004.9[facility] QcacvugLCSKBJNSQU1054-14-64 10:49:008.3[facility] RenslnhZDYULPUMJK9865-64-54 10:49:000.1[facility] UwrrwcaFHIYSSQWOG3666-83-60 10:49:000.9[facility] WjfndeuMRLQMAJKKA3936-77-93 10:49:000.8[facility] [place] NGMSNGJOPB1342-56-92 10:49:000.7[facility] PaojzblIUCXHYYHSZ6557-59-15 10:49:007.0 [facility] XdlorrwZQNTWVACJP1501-63-60 10:49:009.9[facility] HermannHEMATOLOGY 2015-10-27 10:49:0076.2[facility] EzoltyaMTAPYFKCDT4717-95-72 10:49:000.5[facility] SjopkmqGPKTWTEFKW6356-64-94 10:49:009.2[facility] BxcpfyuAMAEEVNPKN5742-12-09 10:49:007.5[facility] ThxettcFEJHYMZNAX6493-68-39 10:49:0090.5[facility] BMJLESCHFR4286-50-50 10:49:00 Test Item Value Reference Range Interpretation Comments MCH (test code = MCH) 30.0 pg 27.0-31.0 [facility] DftafbgMHONEHYXCA9181-75-23 10:49:0033.1[facility] HermannHEMATOLOGY 2015-10-27 10:49:002.88[facility] YfsbhuaMQPCJAIREM5918-68-19 10:49:55680Lzcrrqej EnxrhrxROKSHLKHMX2934-10-97 10:49:0016.9[facility]annURINE AND STOOL 2015-10-26 23:46:00<=1.0[facility]UR[facility] AND YXUER0239-57-32 23:46:00 Performed *NA*(10/26/15 5:46 PM)[facility] OTMDZ6645-29-77 23:46:00<1[facility] ZDFEH2731-99-35 23:46:00Negative *NA*(10/26/15 5:46 PM)[facility] QWOLY1199-15-63 23:46:001[facility] JAMTA4100-28-98 23:46:00Trace *ABN*(10/26/15 5:46 PM)[facility] QUTEX5934-15-62 23:46:00Negative (10/26/15 5:46 PM)[facility] DZSTS3348-94-37 23:46:00Negative (10/26/15 5:46 PM)[facility] UYQNM0765-90-66 23:46:00Clear (10/26/15 5:46 PM)[facility] URINE AND QLYLS8014-15-32 23:46:001.006[facility]annUR[facility] AND ICIBZ8790-87-88 23:46:006.0[facility]UR[facility] XMSPS0952-32-21 23:46:00Light Yellow *NA*(10/26/15 5:46 PM)[facility]BL[facility]OD BANK DALGYFH2035-79-25 10:09:00 Negative (10/26/15 4:09 AM)[facility] HermannCHEM UROAF1480-36-44 10:09:0099 [facility] HermannCHEM ZNWWE7596-08-90 10:09:007.4[facility] HermannCHEM PANEL 2015-10-26 10:09:0030[facility] HermannCHEM QCHTX0087-03-80 10:09:75161Wihbfsej HermannCHEM WIXMY7300-73-75 10:09:46819Fpvlzgkd HermannCHEM OFGNV5925-70-81 10:09:003.6[facility] HermannCHEM FJPBN7404-65-59 10:09:0013[facility] HermannCHEM OGIWT6343-54-80 10:09:000.40[facility] HermannCHEM RDLDM4809-72-62 10:09:79153 [facility] HermannCHEM CLMDH4629-23-25 10:09:0011.6[facility] HermannCHEM PANEL 2015-10-26 10:09:002.4[facility] HermannCHEM ETRCP6815-12-52 10:09:001.9[facility] QgaxnknYPLKJOTIBV1174-97-39 10:09:000.4[facility] KntcfvlWSYZEVPNKD5725-35-41 10:09:009.0[facility] BtdukfuSWLIFQKMRV3866-75-54 10:09:007.1[facility] JIIGLMCUBT7099-84-56 10:09:009.6[facility] HbrlbhsAFAFYILWCI6172-34-86 10:09:001.1 [facility] UgzakoyMQYXJAJAKY9018-45-88 10:09:003.4[facility] HermannHEMATOLOGY 2015-10-26 10:09:000.4[facility] MtitmptYJFKPUPEWF5991-13-67 10:09:000.0[facility] HafgpzkGCUSURIVGY3961-13-21 10:09:000.8[facility] JxbusdrWLKWPRXDGD2375-26-58 10:09:0079.5[facility] UszkwlaJBFMLZFHNI0906-39-83 10:09:00 Test Item Value Reference Range Interpretation Comments MCH (test code = MCH) 29.9 pg 27.0-31.0 [facility] SfywxxbZAKZULITVL5550-08-59 10:09:002.93[facility] HermannHEMATOLOGY 2015-10-26 10:09:007.4[facility] LbsribkVAJQKGJZXL4717-98-02 10:09:0017.7[facility] EkkynpoNPFYSEXTHL3975-39-07 10:09:0032.8[facility] GpixoyvMGNFJUAXOQ2270-04-14 10:09:10240Ohtgrgfk XvzajcjWEYDRWJERP3267-78-11 10:09:0091.2[facility] PNJPMDCFOO2215-46-27 10:09:0011.3[facility] HermannPARATHYROID RGVOAOA1044-69-30 10:09:001.08[facility] HermannPARATHYROID EZUOVUB0770-64-67 10:09:001.09[facility] HermannBLOOD BANK HJNFWTN8854-11-55 22:16:00Product available (10/25/15 4:16 PM) [facility] GmsgerbWVGHGEEFWY6623-40-24 16:21:00Moderate *ABN*(10/25/15 10:21 AM) [facility] StarmlhCJDAILZDVH0956-91-18 16:21:00Normal (10/25/15 10:21 AM)[facility] FdlczqcEZGJGWQRHC1297-59-77 16:21:00Moderate *ABN*(10/25/15 10:21 AM)[facility]CNVMDTKDBI4369-29-96 16:21:00 Test Item Value Reference Range Interpretation Comments PTT (test code = PTT) 33.0 s 22.9-35.8 [facility] HospitalIfoxtvaZYDNPPMZWR5120-73-82 16:21:001.18[facility] HermannHEMATOLOGY 2015-10-25 16:21:00 Test Item Value Reference Range Interpretation Comments PT (test code = PT) 15.3 s 12.0-14.7 [facility] BANK ATHYKIW4252-23-65 08:39:00Product available (10/25/15 2:39 AM)[facility] HermannCHEM KXSDC0980-44-11 07:39:001.7[facility] HermannCHEM XUYBU2555-53-83 07:39:0099[facility] HermannCHEM ZCOEU1080-66-56 07:39:007.4 [facility] HermannCHEM RIIMR3463-30-36 07:39:0012.4[facility] HermannCHEM PANEL 2015-10-25 07:39:70302Snjgyima HermannCHEM XKUNH1503-97-75 07:39:0016[facility] HermannCHEM HXJDN1050-51-61 07:39:000.40[facility] HermannCHEM OHLJM5028 07:39:38710Uorawpuy HermannCHEM IRFLH5137-76-35 07:39:003.4[facility] HermannCHEM OJJMI1741-25-40 07:39:30492Zefawcnz HermannCHEM NCRZH2525-97-76 07:39:0027 [facility] HermannCHEM BIWMY4702-70-16 07:39:003.1[facility] HermannHEMATOLOGY 2015-10-25 07:39:00Moderate *ABN*(10/25/15 1:39 AM)[facility] HermannHEMATOLOGY 2015-10-25 07:39:00Moderate *ABN*(10/25/15 1:39 AM)[facility] HermannHEMATOLOGY 2015-10-25 07:39:00Normal (10/25/15 1:39 AM)[facility] HermannPARATHYROID PROFILE 2015-10-25 07:39:001.08[facility] HermannPARATHYROID SHFICAL5588-14-04 07:39:00 1.05[facility] HermannCHEM YPEFY4362-92-32 14:17:001.0[facility] HermannCHEM PANEL 2015-10-24 10:16:003.7[facility] HermannCHEM IIWTT8052-84-76 10:16:001.7[facility] CiwtydiMRMFEFZCPI1114-58-58 10:16:001.18[facility] GteqxniHCJXMJBSBV7821-02-11 10:16:00 Test Item Value Reference Range Interpretation Comments PT (test code = PT) 15.3 s 12.0-14.7 [facility] IquacjhIJGQLNIFZK3451-63-27 10:16:00 Test Item Value Reference Range Interpretation Comments PTT (test code = PTT) 27.8 s 22.9-35.8 [facility] HermannPARATHYROID QHMXFUN0738-31-04 10:16:001.08[facility] PARATHYROID AIHNMZZ0647-27-94 10:16:001.08[facility] HermannBLOOD BANK RESULTS 2015-10-23 04:44:00Product available (10/22/15 10:44 PM)[facility]BL[facility] WLDUTUO4383-07-73 03:04:00Negative (10/22/15 9:04 PM)[facility]annURINE AND DTNXA4217-08-07 20:58:00<=1.0[facility]annURINE AND EAMRE8347-59-36 20:58:001[facility]annURINE AND MDFFQ4907-01-32 20:58:00Negative (10/22/15 2:58 PM)[facility]annUR[facility] AND EXPLZ9415-54-68 20:58:00Negative (10/22/15 2:58 PM) [facility] AND ZKIWM6951-15-62 20:58:00Negative *NA*(2/8/16 2:58 PM) [facility]UR[facility] AND GBBYQ3735-46-43 20:58:00Light Yellow *NA*(10/22/15 2:58 PM)[facility]annUR[facility] AND MJRPZ4129-32-08 20:58:001.009[facility]annURINE AND RILOZ8808-08-79 20:58:00Clear (10/22/15 2:58 PM)[facility]annUR[facility] AND UPNUF9421-33-65 20:58:007.0[facility]annUR[facility] AND GAKTL4399-53-81 20:58:00 Negative (10/22/15 2:58 PM)[facility] HermannBACTERIAL - CZUBOYMN6379-09-31 19:20:00 Negative (10/22/15 1:20 PM)[facility] HermannCHEM JSAYN2443-92-74 19:20:0032.0 [facility] HermannCHEM OCCXH9292-81-64 19:20:73683Xkwbygaz HermannCHEM PANEL 2015-10-22 19:20:000.9[facility] HermannCHEM OIZUO8441-79-64 19:20:002.2[facility] HermannCHEM FDCOP6595-85-27 19:20:001.0[facility] HermannCHEM DGJSV7785-76-19 19:20:0016[facility] HermannCHEM WAXBS2296-10-94 19:20:000.4[facility] HermannCHEM NZLYC1167-77-39 19:20:0042[facility] HermannCHEM DKZJJ9014-85-16 19:20:000.1 [facility] HermannCHEM FYVGD5483-58-36 19:20:004.3[facility] HermannCHEM PANEL 2015-10-22 19:20:002.1[facility] HermannCHEM HICRA8205-40-82 19:20:0019[facility] HermannCHEM PRDEX7936-37-83 19:20:000.3[facility] KbgrmglYQRVZETKZDKTX1062-22-42 19:20:003.4[facility] [place]
--- NOTE | 2020-12-20 16:42 | ER ---
Nurse's Notes [facility] Name: Rosina Odonnell Age: 85 yrs Sex: Female : 1935 Arrival Date: 12/20/2020 Time: 13:02 Bed Waiting Private MD: Casey Kohler C Diagnosis: Presentation: 12/20 13:40 Chief complaint: Patient states: was playing with her cat last week, got a puncture iw wound on her left hand , has redness and swelling to left hand, also last week was having urinary frequency and having a lot of urine output, and was having frequent BM. 13:40 Acuity: [place] 3 iw 13:40 Method Of Arrival: Wheelchair iw 13:42 Coronavirus screen: At this time, the client does not indicate any symptoms associated iw with coronavirus-19. Ebola Screen: Patient negative for fever greater than or equal to 101.5 degrees Fahrenheit, and additional compatible Ebola Virus Disease symptoms Patient denies exposure to infectious person. Patient denies travel to an Ebola-affected area in the 21 days before illness onset. No symptoms or risks identified at this time. Initial Sepsis Screen: Does the patient meet any 2 criteria? Does the patient have a suspected source of infection? No. Patient's initial sepsis screen is negative. Risk Assessment: Do you want to hurt yourself or someone else? Patient reports no desire to harm self or others. Onset of symptoms was December 13, 2020. Historical: - Allergies: 13:44 Augmentin; iw - Home Meds: 13:44 Advair Diskus 500-50 mcg/dose Inhl dsdv [Active]; Cymbalta 60 mg Oral cpDR 1 cap once iw daily [Active]; Keppra 750 mg Oral tab 1 tab 2 times per day [Active]; Lyrica 50 mg Oral 2 times per day [Active]; - PMHx: 13:44 Hypertension; Multiple Sclerosis; iw - PSHx: 13:44 Hysterectomy; left breast; iw Assessment: 14:35 Reassessment: pt went top see her PCP, made an appt for today. iw Vital Signs: 13:42 BP 129 / 72; Pulse 60; Resp 16; Temp 97.2; Weight 49.9 kg; Height 5 ft. 6 in. (167.64 iw cm); 13:42 Body Mass Index 17.76 (49.90 kg, 167.64 cm) iw ED Course: 13:02 Patient arrived in ED. as 13:02 Casey Kohler MD is Private Physician. as 13:42 Triage completed. iw 13:45 Arm band placed on. iw Administered Medications: No medications were administered Outcome: 16:42 Patient left the ED. iw Signatures: Nadya Matos Irene RN RN iw Corrections: (The following items were deleted from the chart) 13:45 13:42 Resp 16bpm; Temp 97.2F; 49.9 kg; Height 5 ft. 6 in.; BMI: 17.7; iw iw
[2020-12-21 03:33] VITALS: BP 129/72; TEMP 97.2
== END 2020-12-20 16:42 | disposition left against medical advice (07) ==
LOC: ER 12:58
DX: Z53.21 Procedure and treatment not carried out due to patient leaving prior to being seen by health care provider (principal)
CPT/HCPCS: 99281

== ENCOUNTER 2021-03-22 00:13 | Observation (INO) | payer OTHER ==
--- OUTSIDE RECORDS SUMMARY | 2021-03-22 00:21 | XMS REPORT | Continuity of Care Document ---
:1935 Author Organization [facility] t Address [address] [place] [address] Care Team Providers Name Role Phone Ramsey [...] Raymond RIGHT 00 HUMERUS FX Active 02/03/2018 [facility] Common Problem Active 2021-02-22 Memor ia peroneal 3-16 22:13:55 l nerve Common 00:00: [place] lesion peroneal 00 (disorder) nerve lesion (disorder) Active 11/27/2016 Problem 02/22/2021 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 Anemia Problem Resolve 2021-02-22 Edinson david (disorder) d 22:13:55 l Anemia Raymond (disorder) Resolved Problem 02/22/2021 [facility] Anxiety Problem Resolve 2021-02-22 Mem oria (finding) d 22:13:55 l Anxiety [place] (finding) Resolved Problem 02/22/2021 [facility] Asthma Problem Resolve 2021-02-22 Edinson david (disorder) d 22:13:55 l Asthma [place] (disorder) Resolved Problem 02/22/2021 [facility] Depressive Problem Resolve 2021-02-22 Memoria disorder d 22:13:55 l (disorder) Valdez n Depressive disorder (disorder) Resolved Problem 02/22/2021 [facility] Hypertensi Problem Resolve 2021-02-22 Memoria ve d 22:13:55 l disorder, Raymond systemic Hypertensi arterial ve (disorder) disorder, systemic arterial (disorder) Resolved Problem 02/22/2021 [facility] Hyperthyro Problem Resolve 2021-02-22 Memoria idism d 22:13:55 l (disorder) Valdez n Hyperthyro idism (disorder) Resolved Problem 02/22/2021 [facility] Multiple Problem Resolve 2021-02-22 Me moria sclerosis d 22:13:55 l (disorder) Multiple He rmann sclerosis (disorder) Resolved Problem 02/22/2021 [facility] Seizure Problem Resolve 2021-02-22 Mem oria (finding) d 22:13:55 l Seizure Raymond (finding) Resolved Problem 02/22/2021 [facility] Vertigo Problem Active 2021-02-22 Edinson david (finding) 22:13:55 l Vertigo Raymond (finding) Active Problem 02/22/2021 [facility] Migraine Problem Active 2021-02-22 Mem oria (disorder) 22:13:55 l Migraine Valdez n (disorder) Active Problem 02/22/2021 [facility] GASTROINTE Diagnosis Active 2015-11-01 Memoria STINAL 21:55:00 l HEMORRHAGE Valdez n , GASTROINTE UNSPECIFIE STINAL D HEMORRHAGE , UNSPECIFIE D Active [facility] ANEMIA, Diagnosis Active 2015-11-01 Me moria UNSPECIFIE 21:55:00 l D ANEMIA, [place] UNSPECIFIE D Active [facility] UNSP Diagnosis Active 2018-02-09 Mem oria FRACTURE 19:37:00 l OF SHAFT UNSP [place] OF FRACTURE HUMERUS, OF SHAFT UNSP OF HUMERUS, UNSP Active [facility] Exacerbati Problem Resolve 2016-2021-02-22 2021-02-22 Memoria on of d 5-12 22:13:55 22:13:55 l multiple 00:00: [place] sclerosis Exacerbati 00 (disorder) on of multiple sclerosis (disorder) Resolved 01/23/2017 Problem 02/22/2021 [facility] Allergies, Adverse Reactions, Alerts Allergy Allergy Status Severity Reaction(s) Onset Inactive Treating Comm ents Source Name Type Date Date Clinician sulfa sulfa Active Memoria drugs drugs l [place] Augmenti Augmenti Active Memori a n n l [place] Social History Social Habit Start Date Stop Date Quantity Comments Source Social History 2018-02-04 2018-02-04 [facility] lexi 16:15:22 16:15:22 Medications Ordered Filled Start Stop Current Ordering Indication Dosage Frequency Signature Comments Components Source Medication Medication Date Date Medication? 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, 50, kg, 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, Weight lasmiditan 2019-09 Yes 50 mg = 1 Me moria 50 MG Oral 1-12 tab, PO, l Tablet 20:30: PRN, PRN Raymond [Reyvow] 00 migraine, # 8 tab, 2 Refill(s), Pharmacy: [facility] #[id number], 162.56, cm, 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, 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, 50, kg, 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, Weight Levetiracet 2019-09 Yes 750 mg = 1 Memoria am 750 MG 1-12 tab, PO, l Oral Tablet 20:30: BID, # 180 Raymond 00 tab, 1 Refill(s), Pharmacy: [facility] #[id number], 162.56, cm, 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, Height, 50, kg, 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, Weight Reyvow 50 Yes 50 mg = 1 Mem oria mg oral -23 tab, PO, l tablet 19:10: PRN, PRN Raymond 00 migraine, # 8 tab, 2 Refill(s), Pharmacy: [facility] #[id number], 162.56, cm, 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, Height, 50, kg, 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, 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 Levetiracet Yes See Memori a am 750 MG 3-30 Instructio l Oral Tablet 15:45: ns, # 480 H ermann 43 tab, TAKE 1 TABLET BY MOUTH TWICE DAILY, Pharmacy: [facility] #[id number] pregabalin Yes 100 mg = 1 M [...] Raymond Coated 00 Refill(s) Capsule [Cymbalta] carvedilol Yes 12.5 mg = Me moria 12.5 mg 5-10 1 tab, PO, l oral tablet 19:00: BID, # 180 Raymond 00 tab, 0 Refill(s) Amlodipine Yes 5 mg = 1 Mem oria 5 MG Oral 5-10 tab, PO, l Tablet 19:00: Daily, # [place] [Norvasc] 00 30 tab, 0 Refill(s) Levetiracet No 750 mg = 1 Memoria am 750 MG 1-03 tab, PO, l Oral Tablet 19:00: BID, X 90 H ermann [Keppra] 00 day, # 180 tab, 1 Refill(s), Pharmacy: [place] [id number] Levetiracet Yes 750 mg = 1 Memoria am 750 MG 5-26 tab, PO, l Oral Tablet 16:13: BID, 0 Herm lori [Keppra] 00 Refill(s) enoxaparin Yes 40 mg = Edinson david 40 mg/0.4 -26 0.4 mL, l mL 16:07: SUB-Q, Raymond subcutaneou 00 gshmL57G, s solution X 21 day, # 8 mL, 0 Refill(s), Pharmacy: [place] [address] Ergocalcife Yes 50,000 Edinson david rol [id number] - IntlUnit = l UNT Oral 16:07: 1 cap, PO, Her pearson Capsule 00 Q7D, # 5 cap, 0 Refill(s), Pharmacy: [place] [id number] Calcium Yes 1 tab, Memoria Carbonate 5-26 CHEW, BID, l 1250 MG / 16:07: # 60 tab, Her pearson Cholecalcif 00 0 lucia 400 Refill(s), UNT Pharmacy: [facility]t [place] [id number] oxyCODONE 5 No Notes: Edinson david mg oral -26 (Same as: l tablet 15:42: Roxicodone Cassidy nn 00 ) Oxycodone No Notes: Memori a Hydrochlori 5-26 (Same as: l de 5 MG 00:32: Roxicodone Herm lori Oral Tablet 00 ) Calcium No Notes: Memoria Carbonate 5-25 (calcium l 1250 MG / 14:00: carbonate- He Cholecalcif vit D lucia 400 500mg-400u UNT nit TAB) Chewable Same as: Tablet Oyster-D, OsCal-D Ergocalcife No Notes: Edinson david [place]l [id number] 5-25 (Same as: l UNT Oral 12:00: Vitamin D) Her pearson Capsule "Do Not Crush" Thyroxine No Notes: Memori a 5-25 Take 1 l 11:30: hour before or 2 hours after meal; Enteral feeds may interefere with the absorption of this medication . (Same as:Levothr oid) Oxycodone No Notes: Memori a Hydrochlori 5-25 (Same as: l de 5 MG 10:37: Roxicodone Herm lori Oral Tablet 00 ) Cefazolin No Notes: Memori a 5-25 (Same as l 05:00: Ancef) sugammadex No Notes: Memor ia 5-25 (Same as: l 02:43: Bridion) Amitriptyli No Notes: Edinson david ne 5-25 (Same as: l 02:00: Elavil) Singulair No Notes: Memori a 5-25 (Same l 02:00: as:Singula ir) Ondansetron No 4 mg, Memor ia 5-25 Route: l 00:10: IVP, ONCE, Dosing Weight 51.818, kg, PRN Nausea & Vomiting, Start date: 02/04/18 19:10:00 CDT Hydralazine No 10 mg, Edinson david 5-25 Route: l 00:10: IVP, Q20Min, Dosing Weight 51.818, kg, PRN Elevated BP, Start date: 02/04/18 19:10:00 CDT, Duration: 2 doses or times, Stop date: Limited # of times Labetalol No 10 mg, Memori a 5-25 Route: l 00:10: IVP, Raymond 00 Q5Min, Dosing Weight 51.818, kg, PRN Elevated BP, Start date: 02/04/18 19:10:00 CDT, Duration: 5 doses or times, Stop date: Limited # of times Flumazenil 2018-0 No 0.2 mg, Edinson david 5-25 Route: l 00:10: IVP, PRN, Raymond 00 Dosing Weight 51.818, kg, PRN Benzodiaze pine Reversal, Initial dose, Start date: 02/04/18 19:10:00 CDT, Duration: 30 day, Stop date: 03/06/18 19:09:00 CDT Naloxone 2018-0 No 0.4 mg, Memori a 5-25 Route: l 00:10: IVP, Raymond 00 Q2MIN, Dosing Weight 51.818, kg, PRN Narcotic Reversal, Start date: 02/04/18 19:10:00 CDT, Duration: 8 doses or times, Stop date: Limited # of times Hydromorpho 2018-0 No 0.5 mg, Mem oria ne 5-25 Route: l 00:10: IVP, [place] 00 Q5Min, Dosing Weight 51.818, kg, PRN Pain Score 7-10, Start date: 02/04/18 19:10:00 CDT, Duration: 4 doses or times, Stop date: Limited # of times Oxycodone 2018-0 No 5 mg, Memoria 5-25 Route: PO, l 00:10: Drug form: Raymond 00 TAB, Q4H, Dosing Weight 51.818, kg, PRN Pain Score 4-6, Start date: 02/04/18 19:10:00 CDT, Duration: 30 day, Stop date: 03/06/18 19:09:00 CDT ondansetron 2017-0 No Route: IV, Memoria (ANES) 5-24 Drug form: l 23:58: INJ, ONCE, Stop date: 02/04/18 18:58:00 CDT albuterol 2017-0 No Route: Memori a (ANES) 5-24 INHALATION l 23:16: , Drug form: AERO/A, ONCE, Stop date: 02/04/18 18:16:00 CDT acetaminoph 2017- No Route: IV, Memoria en (ANES) 5-24 Drug form: l 10 mg 23:00: INJ, Start Valdez n date: 02/04/18 18:00:00 CDT, Stop date: 02/04/18 19:00:00 CDT hydromorpho 2017- No Route: IV, Memoria ne (ANES) 5-24 Drug form: l 22:51: INJ, ONCE, Stop date: 02/04/18 17:51:00 CDT dexamethaso 2017- No Route: IV, Memoria ne (ANES) 5-24 Drug form: l 22:51: INJ, ONCE, Stop date: 02/04/18 17:51:00 CDT rocuronium No Route: IV, M emoria (ANES) 5-24 Drug form: l 22:20: INJ, ONCE, Stop date: 02/04/18 17:20:00 CDT fentaNYL 0 No Route: IV, Mem oria (ANES) 5-24 Drug form: l 22:10: INJ, ONCE, Stop date: 02/04/18 17:10:00 CDT propofol 0 No Route: IV, Mem oria (ANES) 5-24 Drug form: l 22:10: INJ, ONCE, Stop date: 02/04/18 17:10:00 CDT lidocaine 2017-0 No Route: IV, Me moria (ANES) 5-24 Drug form: l 22:10: INJ, ONCE, Stop date: 02/04/18 17:10:00 CDT ondansetron No Route: IV, Memoria (ANES) 5-24 Drug form: l 22:10: INJ, ONCE, Stop date: 02/04/18 17:10:00 CDT ceFAZolin 0 No Route: IV, Me moria (ANES) 5-24 Drug form: l 22:05: INJ, ONCE, Stop date: 02/04/18 17:05:00 CDT phenylephri No Route: IV, Memoria ne (ANES) 5-24 Drug form: l 22:05: INJ, ONCE, Stop date: 02/04/18 17:05:00 CDT ePHEDrine No Route: IV, Me moria (ANES) 5-24 Drug form: l 22:05: INJ, ONCE, Stop date: 02/04/18 17:05:00 CDT Lactated No Route: IV, Mem oria Ringers -24 Total l Injection 20:35: Volume: Cassidy nn IV (ANES) 00 1,000, 1000 mL Start date: 02/04/18 15:35:00 CDT, Stop date: 02/04/18 16:35:00 CDT Lovenox No Notes: Memoria 5-24 (Same as: l 19:00: Lovenox) Ancef No Notes: Memoria 5-24 (Same as l 16:00: Ancef) Levetiracet No Notes: Edinson david am 750 MG 24 Same as l Oral Tablet 14:00: Keppra Herm lori [Keppra] Advair No 1 puff, Memoria Diskus 500 24 Route: l mcg-50 mcg 14:00: INHALATION H [...] CDT budesonide- No Notes: Edinson david formoterol -24 6411 l 13:00: [address],[id number] Inhale 2 puff(s) by mouth 2 times a day Carlos Chiu Mflauren_ Don't use after_ Tramadol No Notes: Not Mem oria 5-24 to exceed l 11:00: 400mg/day. Raymond 00 (Same As: Ultram) Acetaminoph No Notes: Edinson david en 325 MG / 5-24 (Same as: l Hydrocodone 10:55: Revere Cassidy nn Bitartrate 00 325/5) Do 5 MG Oral not exceed Tablet 4gm/day of [Revere acetaminop 5/325] hen. Ondansetron No Notes: Ednison david 5-24 (Same as: l 10:54: Zofran) MEDICATION WASTE Product Size: 4 mg Product Wasted: ___ mg Acetaminoph No Notes: Edinson david en 325 MG / 5-24 (Same as: l Hydrocodone 10:54: Revere Cassidy nn Bitartrate 00 325/5) Do 5 MG Oral not exceed Tablet 4gm/day of acetaminop hen. Acetaminoph No Notes: Do M emoria en 5-24 not exceed l 10:54: 4 gm/day. [place] 00 (Same as: Tylenol) Dilaudid No 1 mg, Memoria 5-24 Route: l 10:26: IVP, ONCE, Dosing Weight [...] Memoria 5-24 (Same as: l 08:49: Sublimaze) [place] Preservat cely free. ferrous Yes 325 mg [...] oria 2-12 IV push l 23:00: reconstitu [place] 00 te with 10 ml 0.9% sodium chloride and push over 2 minutes. (Same as: Protonix) Amino Acids No Notes: Edinson david 4.25% with 2-12 Same as: l 5% Dextrose 18:00: ClinimixE H ermann and 00 Electrolyte s (Clinimix E Sulfite-Jose Roberto e) 1,000 mL + multivitam Sodium No 250 mL, Memoria Chloride 2-11 Rate: On l 0.9% 22:16: call for Raymond (titrate) 00 use with 250 mL blood product administra tion, Dosing Weight 47.001, kg, Route: IV, Total Volume: 250, Start Date: 10/25/15 16:16:00, Duration: 30 day, Stop date: 11/24/15 16:15:00, Replace Every: 24 hr Sodium No 100 mL, Memoria Chloride 2-11 Rate: 10 l 0.154 20:40: ml/hr, [place] MEQ/ML 00 Infuse Injectable over: 10 Solution hr, Route: IVPB, Dosing Weight 47.001 kg, Total Volume: 100, Infuse at 8 mg / hr for 72 hours for GI bleeding, Start date: 10/25/15 14:40:00, Duration: 72 hr, Stop date: 10/28/15 14:39:00 Reglan No Notes: Memoria 2-11 (Same as: l 18:00: Reglan) [place] 00 Morphine No Notes: Memoria 2-11 (Same l 14:51: as:MORPhin Raymond 00 e Sulfate) Calcium No Notes: Memoria Carbonate 2-11 (Same As: l 500 MG 08:39: Tums) [place] Chewable 00 Calcium Tablet Carbonate 500 mg = 200 mg elemental calcium Dose = mg calcium carbonate ( mg elemental calcium) Magnesium No Notes: Memori a Sulfate - WASTE: F/P l 08:39: - Sink; E [place] 00 - Municipal Trash Bin Neutra-Phos No Notes: Edinson david 2-11 (Same as: l 08:39: Neutra-Mary [place] 00 s) Each 1.25 gm pkt has 250mg phosphorou s. Mix w/2.5oz water and stir. Calcium No Notes: Memoria Gluconate -11 WASTE: F/P l 08:39: - Sink; E - Municipal Trash Bin Magnesium No Notes: Memori a Oxide 2-11 (Same as: l 08:39: Mag-Ox [place] 00 400) Magnesium oxide 919lt=547r g elemental magnesium Dose=____m g magnesium oxide (___mg elemental magnesium) potassium No Notes: Memori a phosphate 2-11 (Same as: l 08:39: K Raymond 00 Phosphate. ) sodium No 30 mmol, Memoria phosphate 2-11 250 mL, l 08:39: Route: [place] 00 IVPB, Drug form: INJ, PRN, Dosing Weight 47.001, kg, PRN Abnormal Lab Result, Start date: 10/25/15 2:39:00, Duration: 30 day, Stop date: 11/24/15 2:38:00, FOR ICU USE ONLY sodium No 45 mmol, Memoria phosphate + 2-11 15 mL, l Sodium 08:39: Route: [place] Chloride 00 IVPB, PRN, 0.9% IV 250 Dosing mL Weight 47.001, kg, PRN Abnormal Lab Result, Start date: 10/25/15 2:39:00, Duration: 30 day, Stop date: 11/24/15 2:38:00, FOR ICU USE ONLY potassium No Notes: Memori a phosphate + 2-11 (Same as: l Sodium 08:39: K Raymond Chloride 00 Phosphate. 0.9% IV 250 ) 1 mMol mL phoshate has 1.47 mEq potassium Infuse over 4 hours potassium No Notes: Memori a chloride 2-11 (Same as: l 08:39: K-Dur 20) [place] 00 "Do Not Crush" With food and full glass of water Amitriptyli No Notes: Edinson david ne 2-11 (Same as: l 03:00: Elavil) Raymond morphine No Notes: Memoria Sulfate 2-10 (Same l 21:27: as:MORPhin Raymond e Sulfate) Phenergan No Notes: Do Mem oria 2-10 not give l 21:26: IV push. [place] 00 (Same as: Phenergan) carvedilol No Notes: Memor ia 2-10 Give with l 15:00: food. Raymond 00 (Same As: Coreg) 24 HR No 500 mg, 1 Memoria Etodolac 2-10 tab, l 500 MG 15:00: Route: PO, Cassidy nn Extended 00 Drug form: Release ERTAB, Tablet BID, Dosing Weight 47.001, kg, Start date: 10/24/15 9:00:00, Duration: 30 day, Stop date: 11/22/15 17:00:00 Nexium No 40 mg, Memoria 2-10 Route: PO, l 15:00: Daily, Raymond 00 Dosing Weight 47.001, kg, Start date: 10/24/15 9:00:00, Duration: 30 day, Stop date: 11/22/15 9:00:00 168 HR No Notes: Memoria Clonidine 2-10 Patch l 0.23284 14:44: delivers Valdez n MG/HR 00 0.1 mg/24 Transdermal hours; Patch Patch is applied weekly. "Remove old patch before applicatio n of new patch" (Same As: Catapres-T TS-1) Advair No Notes: Memoria Diskus 500 2-10 (Same as: l mcg-50 mcg 14:44: Advair) Herm lori inhalation 00 powder Methocarbam No Notes: Edinson david ol 2-10 (Same l 13:56: as:Robaxin [place] ) Meclizine No Notes: Memori a 2-10 (Same as: l 13:56: Antivert) Raymond Hyoscyamine No Notes: Edinson david 2-10 (Same as: l 13:56: Levsin) [place] Take 30 min before meal Acetaminoph No Notes: Edinson david en 325 MG / 2-10 (Same as: l Hydrocodone 13:55: Revere Cassidy nn Bitartrate 00 325/5) Do 5 MG Oral not exceed Tablet 4gm/day of [Revere acetaminop 5/325] hen. Alprazolam No Notes: Memor ia 0.25 MG 2-10 With food l Oral Tablet 13:55: or milk Her pearson 00 (Same as: Xanax) Clonidine No Notes: Memori a Hydrochlori 2-10 (Same As: l de 0.2 MG 06:00: Catapres) Her pearson Oral Tablet 00 Amlodipine No Notes: Memor ia 2-10 (Same as: l 04:43: Norvasc) [place] 00 Cardene 40 No Notes: Memor ia mg in NS 2-10 Same as: l 200 mL 04:42: Cardchidi Andrade (Titrate.) 00 Concentrat IV 40 mg ion: (0.2 mg /1 ml ) Labetalol No Notes: Memori a 2-10 (Same as: l 04:42: NormodyneRaymond 00 Trandate) Push over 2 minutes Give bolus over 2-3 minutes. Zofran No Notes: Memoria 2-10 (Same as: l 01:05: Zofran) Raymond 00 MEDICATION WASTE Product Size: 4 mg Product Wasted: ___ mg Ondansetron No Notes: Edinson david 2-09 (Same as: l 23:49: Zofran) [place] 00 MEDICATION WASTE Product Size: 4 mg Product Wasted: ___ mg Sublimaze No Notes: Memori a 2-09 (Same as: l 23:30: Sublimaze) [place] 00 Preservat cely free. midazolam No Notes: Memori a 2-09 (Same as: l 23:30: Versed) [place] 00 MEDICATION WASTE Product Size: 2 mg Product Wasted: ___ mg Thyroxine No Notes: Memori a 2-09 Take 1 l 12:30: hour [place] 00 before or 2 hours after meal; Enteral feeds may interefere with the absorption of this medication . (Same as:Levothr oid) Sublimaze No Notes: Memori a 2-09 (Same as: l 03:47: Sublimaze) [place] Preservat cely free. Saline No Notes: Memoria Flush 0.9% 2- (Same as: l 03:00: BD Raymond 00 Posiflush) sennosides, No Notes: Edinson david HALFWAY 2-09 (Same as: l 03:00: Senokot) [place] 00 Docusate No Notes: Memoria 2-09 (Same as: l 03:00: Colace) Raymond 00 (Do Not Crush) Singulair No Notes: Memori a 2-09 (Same l 03:00: as:Singula Raymond 00 ir) budesonide- No Notes: Edinson david formoterol 2-08 (Same as: l 160 mcg-4.5 23:00: Symbicort) Raymond mcg/inh 00 WASTE: inhalation Aerosol - aerosol Return to with Pharmacy adapter Seroquel No Notes: Memoria 2-08 (Same as: l 23:00: SEROquel) [place] 00 Levetiracet No Notes: Edinson david am 750 MG 2-08 Same as: l Oral Tablet 23:00: Keppra Herm lori [Keppra] 00 Cymbalta No Notes: Memoria 2-08 (Same as: l 23:00: Cymbalta) [place] 00 (Do Not Crush) Advair No 1 puff, Memoria Diskus 500 -08 Route: l mcg-50 mcg 23:00: INHALATION H [...] 00 0 5 MG Oral Refill(s) Tablet [Revere 5/325] carvedilol Yes 3.125 mg = M [...] 1 patch, Memoria Clonidine 2-08 TOP, l 0.08429 19:51: qWeek, # Valdez n MG/HR 00 12 patch, Transdermal 0 Patch Refill(s) quetiapine Yes 25 mg = 1 Me moria 25 MG Oral 2-08 tab, PO, l Tablet 19:51: BID, 0 [place] [Seroquel] 00 Refill(s) linaclotide Yes 145 Memori a 0.145 MG 2-08 microgram l Oral 19:51: = 1 cap, [place] Capsule 00 PO, Daily, [Linzess] 30 minutes [...] tab, PO, l tablet 19:51: TID, PRN [place] 00 for dizziness, # 60 tab, 0 [...] 0 l 19:49: Refill(s) Raymond 00 Sodium No 100 mL, Memoria Chloride 08 Rate: 10 l 0.154 18:59: ml/hr, Raymond MEQ/ML 00 Infuse Injectable over: 10 Solution hr, Route: IVPB, Dosing Weight 47.001 kg, Total Volume: 100, Infuse at 8 mg / hr for 72 hours for GI bleeding, Start date: 10/22/15 12:59:00, Duration: 72 hr, Stop date: 10/25/15 12:58:00 Saline No Notes: Memoria Flush 0.9% 10-22 (Same as: l 18:55: BD [place] 00 Posiflush) Vital Signs Vital Name Observation Time Observation Value Comments Source Systolic (mm Hg) 2019-10-06 20:08:00 Edinsonelly Andrade Diastolic (mm Hg) 2019-10-06 20:08:00 [facility] alessandroal Raymond Heart Rate 2019-10-06 20:08:00 [facility] Respitory Rate 2019-10-06 20:08:00 Perla Patel Height 2019-10-06 20:08:00 162.56 cm [facility] Weight 2019-10-06 20:08:00 [facility] BMI Calculated 2019-10-06 20:08:00 Perla Patel Weight 2019-03-25 18:58:00 [facility] [place] BMI Calculated 2019-03-25 18:58:00 Memori al Raymond Height 2019-03-25 18:58:00 167.64 cm [facility] [place] Systolic (mm Hg) 2019-03-25 18:58:00 Edinson rial Raymond Diastolic (mm Hg) 2019-03-25 18:58:00 Mem orial [place] Heart Rate 2019-03-25 18:58:00 [facility] [place] Respitory Rate 2019-03-25 18:58:00 Memori al [place] BMI Calculated 2019-01-21 18:35:00 Memori al [place] Weight 2019-01-21 18:35:00 [facility] [place] Height 2019-01-21 18:35:00 167.64 cm [facility] [place] Respitory Rate 2019-01-21 18:35:00 Memori al [place] Heart Rate 2019-01-21 18:35:00 [facility] [place] Systolic (mm Hg) 2019-01-21 18:35:00 Edinson rial [place] Diastolic (mm Hg) 2019-01-21 18:35:00 Mem orial Raymond BMI Calculated 2018-12-30 14:25:00 Memori al Raymond Weight 2018-12-30 14:25:00 [facility] [place] Height 2018-12-30 14:25:00 167.64 cm [facility] [place] Systolic (mm Hg) 2018-12-30 14:25:00 Edinson rial [place] Diastolic (mm Hg) 2018-12-30 14:25:00 Mem orial [place] Respitory Rate 2018-12-30 14:25:00 Memori al [place] Heart Rate 2018-12-30 14:25:00 [facility] [place] Systolic (mm Hg) 2018-10-19 22:38:00 Edinson rial Raymond Diastolic (mm Hg) 2018-10-19 22:38:00 Mem orial [place] Heart Rate 2018-10-19 22:38:00 [facility] [place] Respitory Rate 2018-10-19 22:38:00 Memori al [place] Height 2018-10-19 22:38:00 167.64 cm [facility] [place] Weight 2018-10-19 22:38:00 [facility] [place] BMI Calculated 2018-10-19 22:38:00 Memori al Raymond Temperature Oral (F) 2018-02-06 17:35:00 99.2 F [facility] [place] Heart Rate 2018-02-06 17:35:00 [facility] [place] Respitory Rate 2018-02-06 17:35:00 Memori al [place] Systolic (mm Hg) 2018-02-06 17:35:00 Edinson rial [place] Diastolic (mm Hg) 2018-02-06 17:35:00 Mem orial Raymond Heart Rate 2018-02-06 12:40:00 [facility] [place] Respitory Rate 2018-02-06 12:40:00 Memori al [place] Systolic (mm Hg) 2018-02-06 12:40:00 Edinson rial [place] Diastolic (mm Hg) 2018-02-06 12:40:00 Mem orial Raymond Temperature Oral (F) 2018-02-06 12:40:00 98.5 F [facility] [place] Respitory Rate 2018-02-06 08:12:00 Memori al [place] Heart Rate 2018-02-06 08:12:00 [facility] [place] Temperature Oral (F) 2018-02-06 08:12:00 97.8 F [facility] [place] Systolic (mm Hg) 2018-02-06 08:12:00 Edinson rial Raymond Diastolic (mm Hg) 2018-02-06 08:12:00 Mem o[facility] Height 2018-02-05 02:47:00 167.64 cm [facility] Weight 2018-02-05 02:47:00 [facility] BMI Calculated 2018-02-05 02:47:00 [facility] BMI Calculated 2018-02-04 15:52:00 [facility] Weight 2018-02-04 15:52:00 [facility] Height 2018-02-04 15:52:00 167.64 cm [facility] Respitory Rate 2015-10-28 14:00:00 [facility] Systolic (mm Hg) 2015-10-28 14:00:00 [facility] Diastolic (mm Hg) 2015-10-28 14:00:00 [facility] Temperature Oral (F) 2015-10-28 14:00:00 98.1 F [facility] Heart Rate 2015-10-28 14:00:00 [facility] Respitory Rate 2015-10-28 10:00:00 [facility] Systolic (mm Hg) 2015-10-28 10:00:00 [facility] Diastolic (mm Hg) 2015-10-28 10:00:00 [facility] Heart Rate 2015-10-28 10:00:00 [facility] Temperature Oral (F) 2015-10-28 10:00:00 97.9 F [facility] Respitory Rate 2015-10-28 06:00:00 [facility] Heart Rate 2015-10-28 06:00:00 [facility] Temperature Oral (F) 2015-10-28 06:00:00 97.6 F [facility] Systolic (mm Hg) 2015-10-28 06:00:00 [place] [facility] Diastolic (mm Hg) 2015-10-28 06:00:00 [facility] Height 2015-10-27 02:52:00 152.4 cm [facility] Height 2015-10-22 18:39:00 165.1 cm [facility] Weight 2015-10-22 18:39:00 [facility] BMI Calculated 2015-10-22 18:39:00 Perla latham [facility] Procedures Procedure Date / Time Performed Performing Clinician Latia hyman Appendectomy [facility] [place] Arthroscopy of knee [facility] pearson Elbow maneuver [facility] [place] Hysterectomy [facility] [place] Repair of shoulder [facility] Herm lori Encounters Start End Encounter Admission Attending Care Care Encounter Source Date/Time Date/Time Type Type Clinicians Facility Department ID 2021-02-20 2021-02-20 Outpatient MORGAN ShresthaSCHER [id number] 14:15:00 14:15:00 [place] 16 [place] 2021-01-23 2021-01-23 Outpatient MORGAN ShresthaSCHER [id number] 14:00:00 14:00:00 [place] 13 [place] 2020-12-06 2020-12-06 Outpatient MORGAN ShresthaSCHER [id number] 15:30:00 15:30:00 [place] 15 [place] 2020-11-15 2020-11-15 Outpatient MORGAN ShresthaSCHMARIXA [id number] 15:15:00 23:59:59 [place] 14 [place] 2020-10-22 2020-10-23 Outpatient MORGAN LARSENMISCHER [id number] 15:23:00 23:59:59 03 2020-07-26 2020-07-26 Outpatient Henrietta, MHMISCHER MHMISCHER [id number] 14:00:00 23:59:59 [place] 12 [place] 2020-04-05 2020-04-05 Outpatient Henrietta, MHMISCHER MHMISCHER [id number] 14:00:00 23:59:59 [place] 11 [place] 2020-04-05 2020-04-05 Outpatient Henrietta, MHMISCHER MHMISCHER [id number] 14:00:00 14:00:00 [place] 10 [place] 2020-03-01 2020-03-01 Emergency [facility] [id number] 16:34:28 19:52:00 Keren Puckett [id number] [place] [id number] [place] [id number] 2019-10-06 2019-10-06 Outpatient Henrietta, MHMISCHER MHMISCHER [id number] 13:15:00 23:59:59 [facility] 2019-07-01 2019-07-01 Outpatient Henrietta, MHMISCHER MHMISCHER [id number] 16:00:00 16:00:00 [place] 08 [place] 2019-03-31 2019-03-31 Outpatient Henrietta, MHMISCHER MHMISCHER [id number] 15:15:00 15:15:00 [place] 03 [place] 2019-03-25 2019-03-25 Outpatient Henrietta, MHMISCHER MHMISCHER [id number] 13:00:00 23:59:59 [facility] 2019-02-09 2019-02-09 Outpatient Henrietta, MHMISCHER MHMISCHER [id number] 14:45:00 14:45:00 [place] 2019-01-21 2019-01-21 Outpatient Henrietta, MHMISCHER MHMISCHER [id number] 13:15:00 23:59:59 [facility] 2018-12-30 2018-12-30 Outpatient Henrietta, MHMISCHER MHMISCHER [id number] 09:00:00 23:59:59 [place] 04 [place] 2018-10-19 2018-10-19 Outpatient Henrietta, MHMISCHER MHMISCHER [id number] 16:00:00 23:59:59 [place] 02 [place] 2018-09-17 2018-09-18 Outpatient MHMISCHER MHMISCHER [id number] 15:30:00 23:59:59 2018-08-20 2018-08-21 Outpatient MHMISCHER MHMISCHER [id number] 13:01:00 23:59:59 2018-02-04 2018-02-06 Outpatient Shade, [facility] [id number] 03:21:00 16:15:00 Carlos Montano 2015-10-22 2015-10-28 Outpatient Yatam [facility] [id number] 12:39:00 11:47:00 Emir Rosa Results Test Description Test Time Test Comments Results Result Comments Source HEMATOLOGY 2018-02-06 25.5 [facility] 11:29:00 HEMATOLOGY 2018-02-06 8.6 [facility] nn 11:29:00 ELECTROLYTES 2018-02-05 3.9 [facility] 11:44:00 ELECTROLYTES 2018-02-05 20 [facility] 11:44:00 ELECTROLYTES 2018-02-05 0.68 [facility] 11:44:00 ELECTROLYTES 2018-02-05 151 [facility] 11:44:00 ELECTROLYTES 2018-02-05 7.9 [facility]son 11:44:00 HEMATOLOGY 2018-02-05 93.8 [facility] nn 11:44:00 HEMATOLOGY 2018-02-05 11:44:00 Test Item Value Reference Range Interpretation Comme nts MCH (test code = MCH) 31.7 pg 27.0-31.0 [facility] MnwzgtvXTYSCVFLJI8382-32-56 11:44:0026.2[facility] HermannHEMATOLOGY 2018-02-05 11:44:49788Vuzppslr JdrldhkOZBCHOLOXF5608-17-34 11:44:0033.8[facility] XttyqfmBTFHIGBRCX9452-70-34 11:44:006.8[facility] DetohpeFPDHWKOSVT6679-84-30 11:44:0012.7[facility] ZllowriGBADJLBFNA7703-33-02 11:44:008.9[facility] XGORVSKPVN1959-94-16 11:44:007.6[facility] NrquscgBNNBQQNHMX4939-70-10 11:44:00 2.79[facility] RferxewELDUIDQIRX4921-84-86 11:44:001.2[facility] HermannHEMATOLOGY 2018-02-05 11:44:001.2[facility] YmmsgtrZTUJBKIOVH6591-16-07 11:44:0016.0[facility] JussxiaGWTMBQEGWN6286-13-79 11:44:0015.8[facility] NqjramdHKAAMYRRKM4445-40-82 11:44:0067.9[facility] SgbzadaQHAMCGQDDS6511-15-98 11:44:005.1[facility] PABSRBJUEJ6992-05-56 11:44:000.3[facility] HermannPARATHYROID GPIAWNY7600-67-29 11:44:09024.9[facility] HermannCHEM TEMUA8591-36-82 11:44:0012.4[facility] XGTEVOCVIXMY4175-54-66 11:44:0013.9[facility] HnqlqgdRPDVLIKPGQYX9290-35-28 11:44:0082[facility] EqwqglfEXXIRHFJMFMS5236-29-83 11:44:13460Szuidpei [place] KJUZOZUJMOWL0361-21-81 11:44:0024[facility] OvrvowcFUAOASYHXKTU7445-17-29 11:44:00 144[facility]annBLOOD BANK SVJZPUK1275-00-03 09:21:00Negative (02/04/18 4:21 AM)[facility] HermannCHEM WSMWO4733-42-44 09:06:590.9[facility] HermannELECTROLYTES 2018-02-04 09:06:5911.9[facility] VhttujoLUNWLONEJSXP2932-07-45 09:06:5983[facility] GthswxmYQAZULENDVAO5874-47-44 09:06:598.1[facility] UmmmqekAVCVPOYZEBRJ4703-02-18 09:06:5922[facility] UtpwyiyULKGZBRQAZUN9711-35-63 09:06:78290Floslngz Raymond DVJAFWVDNUUV4518-88-85 09:06:590.67[facility] LhaodosMUKJXLAKCBVV4927-74-41 09:06:5922[facility] WkaxkpgOHPKWWHENQSQ2349-35-23 09:06:45142Kfqawafr [facility] VVAPXKCVJVER7184-22-40 09:06:46527Vtnfecik JdssvseONCDGMVODZOH8897-48-86 09:06:593.9[facility] QemifibTVOAJFNVUQ1561-73-14 09:06:59 Test Item Value Reference Range Interpretation Comments PTT (test code = PTT) 24.7 s 22.9-35.8 [facility] DhokrlrLJKOGQIHIJ2673-37-54 09:06:59 Test Item Value Reference Range Interpretation Comments INR (test code = INR) 1.01 1 0.85-1.17 [facility] WhsliiqBMIDOFOFXN6311-21-09 09:06:59 Test Item Value Reference Range Interpretation Comments PT (test code = PT) 13.3 s 12.0-14.7 [facility] NmrnbctEJSHOYGNAP7833-83-18 09:06:09819Wwwapumn HermannHEMATOLOGY 2018-02-04 09:06:597.1[facility] HhkkettETPVQUSOTN1463-29-85 09:06:5932.2[facility] EberrseGHOPYPYWPG1081-95-35 09:06:593.42[facility] GnmxuazZLKFRSLGLE2336-60-98 09:06:5910.8[facility] YcxponjYASJQCNQLW9894-94-22 09:06:598.5[facility] SYBVWJOTMG1428-35-07 09:06:5933.5[facility] WudfbpxNXFCVTODEV6577-09-36 09:06:59 13.0[facility] QklqpalPTFOVDPYAD0629-75-00 09:06:5994.1[facility] HermannHEMATOLOGY 2018-02-04 09:06:59 Test Item Value Reference Range Interpretation Comments MCH (test code = MCH) 31.5 pg 27.0-31.0 [facility] JbjchniLTVQVUTLIJ0359-60-47 09:06:592.3[facility] HermannHEMATOLOGY 2018-02-04 09:06:591.7[facility] DnhwfrkAWRMEJGOTM0531-67-96 09:06:595.5[facility] PtvezqfICJXKMZIFH4731-32-12 09:06:590.8[facility] OrinwsdRIEQSQSHLL2083-39-74 09:06:590.1[facility] RmijnxtZRNFVORZUA3665-26-53 09:06:590.2[facility] RMLFRUXJHF9065-82-27 09:06:591.1[facility] BxhqbsrHNZCDWNQEC2367-81-61 09:06:59 64.6[facility] QzytgdhKCJRXRJLVS4173-62-50 09:06:5919.7[facility] HermannHEMATOLOGY 2018-02-04 09:06:5912.6[facility] UlxzugsLVAZTZSGSIEV6488-47-07 11:14:0011.7 [facility] RpxryauEUSZQFSWVGEK4067-77-41 11:14:0099[facility] HermannELECTROLYTES 2015-10-28 11:14:0029[facility] JgaewqxZNXOPTGXNWXT8295-97-73 11:14:00074Rhumqvxx FmxwrouXMAVQNYVMHMH1162-95-91 11:14:003.7[facility] KjvzodyWCUNGURPXLPA9851-42-01 11:14:15571Fikyhprs QpsmdyhAREUFQHDBGXG3082-57-52 11:14:000.40[facility] ZMGHHPIWPGLW8691-91-47 11:14:008.1[facility] VgbvpioAKXHIUJEBKCG4225-48-68 11:14:008[facility] UoelxmgUDJIJKWYSEQJ4522-20-24 11:14:0094[facility] PUIBCANRAG8569-22-12 11:14:0016.6[facility] LlyhvbcWBTOEBMUUP5898-56-00 11:14:00 7.2[facility] DibdegsHQWJDPDGKU5554-36-49 11:14:63373Cjxejuln HermannHEMATOLOGY 2015-10-28 11:14:00 Test Item Value Reference Range Interpretation Comments MCH (test code = MCH) 29.8 pg 27.0-31.0 [facility] YaekdhwZJYXLDPYDX5401-04-10 11:14:0032.9[facility] HermannHEMATOLOGY 2015-10-28 11:14:0090.5[facility] MmunpemXQKCZJQAZI3081-76-86 11:14:003.41[facility] FjnpodcGLURPUFAYA1048-83-66 11:14:008.1[facility] GhlcxunGQEMBWFDAS5928-91-67 11:14:0030.9[facility] GhxinowSRKEWTHKMF4239-91-55 11:14:0010.2[facility] LHWHQHTELK6848-74-64 11:14:001.1[facility] XdulnuxNAKFRMDOLU7631-12-33 11:14:005.4 [facility] QnybxsxNRNVCAEAPA4559-58-14 11:14:000.1[facility] HermannHEMATOLOGY 2015-10-28 11:14:001.2[facility] HjzmnzhNIPBQLBMOK4884-77-22 11:14:000.8[facility] MnqqtuoOOGSWHPBWV8670-62-97 11:14:000.6[facility] KxjvhxvGGZHVYEWKM5911-81-56 11:14:0066.7[facility] TkznwrjONUKVQGXNF4649-50-20 11:14:0015.1[facility] ZYOGVLUHIC4382-96-21 11:14:009.7[facility] VdmgyvcONKDIAWTXQ6179-44-86 11:14:007.4 [facility] RcngbnxFNONNDRYJX2581-81-90 02:47:0030.2[facility] HermannHEMATOLOGY 2015-10-28 02:47:0010.1[facility] KfjscvwPSPRUGWNVQ2668-93-56 18:09:009.4[facility] BkdomklMODFDEIFUK5811-51-29 18:09:0027.9[facility] NsskxsrFLCFASHMMA4926-05-54 10:49:00 Test Item Value Reference Range Interpretation Comments PT (test code = PT) 14.3 s 12.0-14.7 [facility] PkcvmypOIUUZYXBLS9724-69-38 10:49:00 Test Item Value Reference Range Interpretation Comments PTT (test code = PTT) 34.3 s 22.9-35.8 [facility] VdbgcsaAKBSSTEBZF0032-30-65 10:49:001.08[facility] HermannHEMATOLOGY 2015-10-27 10:49:004.9[facility] BuldpesVKEQYLIAPU9128-76-56 10:49:008.3[facility] XlykoaqPUSEWEXGOW3365-81-59 10:49:000.1[facility] FmbpdygBHOWYXEZFR5221-89-52 10:49:000.9[facility] McjhvwpSFUWRHMEMG7357-17-55 10:49:000.8[facility] DNLIFUZGHP4921-57-16 10:49:000.7[facility] WnpppheDFRLQIXVXS0996-07-87 10:49:007.0 [facility] JnhvkkxPDWBZCYMVM8790-14-06 10:49:009.9[facility] HermannHEMATOLOGY 2015-10-27 10:49:0076.2[facility] JuyaqebULTHVGMONK4715-46-00 10:49:000.5[facility] WubkdpfFWXACBEUWR8861-74-34 10:49:009.2[facility] GerlpwwOHZHLZPECE0343-54-18 10:49:007.5[facility] FsqjfdtTQNFCZCJMK7286-33-27 10:49:0090.5[facility] ZJEJVCJRKK6162-93-89 10:49:00 Test Item Value Reference Range Interpretation Comments MCH (test code = MCH) 30.0 pg 27.0-31.0 [facility] QxmnkorAMNCHREGCB6491-26-26 10:49:0033.1[facility] HermannHEMATOLOGY 2015-10-27 10:49:002.88[facility] VksbvvsDHGHPRPRPO3852-49-45 10:49:79732Utwjfpgl JnetxndZBJIFIGRFA6571-72-64 10:49:0016.9[facility] HermannURINE AND STOOL 2015-10-26 23:46:00<=1.0[facility]annURINE AND IFEMA9001-73-47 23:46:00 Performed *NA*(10/26/15 5:46 PM)[facility]annUR[facility] AND NBDEW6481-10-50 23:46:00<1[facility]annUR[facility] AND CZSEK0173-30-76 23:46:00Negative *NA*(10/26/15 5:46 PM)[facility]annUR[facility] AND YRIPE6554-62-39 23:46:001[facility]annUR[facility] AND DIICN7632-31-29 23:46:00Trace *ABN*(10/26/15 5:46 PM)[facility] DCZWB9720-42-21 23:46:00Negative (10/26/15 5:46 PM)[facility]annUR[facility] AND VMEIR3480-40-73 23:46:00Negative (10/26/15 5:46 PM)[facility]annUR[facility] AND WXSJF7286-39-35 23:46:00Clear (10/26/15 5:46 PM)[facility] URINE AND SEVNR7628-39-98 23:46:001.006[facility]annURINE AND INDUI5747-33-35 23:46:006.0[facility]annURINE AND QXWVY7546-48-49 23:46:00Light Yellow *NA*(10/26/15 5:46 PM)[facility]annBLOOD BANK DACKGZF7456-07-46 10:09:00 Negative (10/26/15 4:09 AM)[facility] HermannCHEM FRXED7462-72-83 10:09:0099 [facility] HermannCHEM YIEKV9150-28-19 10:09:007.4[facility] HermannCHEM PANEL 2015-10-26 10:09:0030[facility] HermannCHEM YEDAT0178-66-40 10:09:09429Qwblsfaz HermannCHEM QJBIX5715-26-29 10:09:73646Semqenid HermannCHEM HUIER8780-32-33 10:09:003.6[facility] HermannCHEM YJOJJ0754-52-56 10:09:0013[facility] HermannCHEM QMNDX1675-02-86 10:09:000.40[facility] HermannCHEM XKDBP8181-46-72 10:09:43950 [facility] HermannCHEM FMGGM5088-73-51 10:09:0011.6[facility] HermannCHEM PANEL 2015-10-26 10:09:002.4[facility] HermannCHEM ONGVT4845-33-74 10:09:001.9[facility] CrjchieQGANRDGGMM1302-18-97 10:09:000.4[facility] GtzmruoHMUGQMKPWM4922-51-40 10:09:009.0[facility] FarzhxmCJXJZIZVFR9137-91-86 10:09:007.1[facility] LKJRNZWZGU9055-45-28 10:09:009.6[facility] AlvjydjMKDLOBPIOH8480-95-13 10:09:001.1 [facility] VgfvtqmJXAMAMMRWG8927-91-94 10:09:003.4[facility] HermannHEMATOLOGY 2015-10-26 10:09:000.4[facility] EfwrqavGWIXPPSSSY9347-50-14 10:09:000.0[facility] YbgvhxrGSAOOWHSWS2264-85-25 10:09:000.8[facility] KrgxqiiZMLUKHGZNS0758-09-48 10:09:0079.5[facility] UorpfjbUPRZSLHAWN6942-28-88 10:09:00 Test Item Value Reference Range Interpretation Comments MCH (test code = MCH) 29.9 pg 27.0-31.0 [facility] LphkrxfCNICOZLXTL8740-75-80 10:09:002.93[facility] HermannHEMATOLOGY 2015-10-26 10:09:007.4[facility] DaplcnqVOGBLCMLKH2258-75-51 10:09:0017.7[facility] FpvqhzlNNOZLTQGQD4574-61-83 10:09:0032.8[facility] FqshnmkQXYOXFAMLC9283-03-79 10:09:32611Gpqukngp PdavoovLTFZHWCUIK1974-46-63 10:09:0091.2[facility] BJBJKQOMNU0922-76-10 10:09:0011.3[facility] HermannPARATHYROID QAWXEUR2388-02-48 10:09:001.08[facility] HermannPARATHYROID ZVWFDZD3764-91-50 10:09:001.09[facility] HermannBLOOD BANK KNMBUYD2626-73-99 22:16:00Product available (10/25/15 4:16 PM) [facility] YwdehagEXECGXCWSY5033-59-84 16:21:00Moderate *ABN*(10/25/15 10:21 AM) [facility] FjknwfgPHTWOUOKEI5341-21-30 16:21:00Normal (10/25/15 10:21 AM)[facility] RkrscrjHICMJZRFBB7090-88-52 16:21:00Moderate *ABN*(10/25/15 10:21 AM)[facility] OhdxpdiPVFBTGBDKM9465-79-30 16:21:00 Test Item Value Reference Range Interpretation Comments PTT (test code = PTT) 33.0 s 22.9-35.8 [facility] JpelivvKXHLFKGLDY2807-22-38 16:21:001.18[facility] HermannHEMATOLOGY 2015-10-25 16:21:00 Test Item Value Reference Range Interpretation Comments PT (test code = PT) 15.3 s 12.0-14.7 [facility]annBLOOD BANK LABRRRZ6318-85-58 08:39:00Product available (10/25/15 2:39 AM)[facility] HermannCHEM RHDKY7403-89-66 07:39:001.7[facility] HermannCHEM TVRGC4400-13-16 07:39:0099[facility] HermannCHEM MNGAM7470-24-22 07:39:007.4 [facility] HermannCHEM KLXIZ7280-68-69 07:39:0012.4[facility] HermannCHEM PANEL 2015-10-25 07:39:19167Advhymyg HermannCHEM UQXFD4655-56-99 07:39:0016[facility] HermannCHEM HALQH7961-11-54 07:39:000.40[facility] HermannCHEM EBPSY0209-38-45 07:39:19634Aetunlns HermannCHEM YTMKR6440-79-86 07:39:003.4[facility] HermannCHEM PZMGE9434-87-02 07:39:55001Xbwcanja HermannCHEM GSGPN2226-02-45 07:39:0027 [facility] HermannCHEM VQOFQ9819-83-64 07:39:003.1[facility] HermannHEMATOLOGY 2015-10-25 07:39:00Moderate *ABN*(10/25/15 1:39 AM)[facility]annHEMATOLOGY 2015-10-25 07:39:00Moderate *ABN*(10/25/15 1:39 AM)[facility] HermannHEMATOLOGY 2015-10-25 07:39:00Normal (10/25/15 1:39 AM)[facility] HermannPARATHYROID PROFILE 2015-10-25 07:39:001.08[facility] HermannPARATHYROID XQKGEDU9842-35-30 07:39:00 1.05[facility] HermannCHEM IEZZZ3920-29-72 14:17:001.0[facility] HermannCHEM PANEL 2015-10-24 10:16:003.7[facility] HermannCHEM RKGCX4916-93-35 10:16:001.7[facility] GecxobpOXDHWANJJY5315-55-76 10:16:001.18[facility] DovmgkePBAYGCGCEU6746-19-54 10:16:00 Test Item Value Reference Range Interpretation Comments PT (test code = PT) 15.3 s 12.0-14.7 [facility] FmrqrixRYVBOBVETV4809-52-54 10:16:00 Test Item Value Reference Range Interpretation Comments PTT (test code = PTT) 27.8 s 22.9-35.8 [facility] HermannPARATHYROID UWCMFJA8441-72-46 10:16:001.08[facility] PARATHYROID IFTYGJY3444-94-66 10:16:001.08[facility] HermannBLOOD BANK RESULTS 2015-10-23 04:44:00Product available (10/22/15 10:44 PM)[facility] XSVJWVG1900-11-59 03:04:00Negative (10/22/15 9:04 PM)[facility]annURINE AND WWVVJ0517-16-98 20:58:00<=1.0[facility]annURINE AND BLCBH5780-64-98 20:58:001[facility]annUR[facility] AND MSGRA4224-98-81 20:58:00Negative (10/22/15 2:58 PM)[facility]annUR[facility] AND BHUWT8220-74-32 20:58:00Negative (10/22/15 2:58 PM) [facility]annUR[facility] AND HKLCK4777-00-44 20:58:00Negative *NA*(10/22/15 2:58 PM) [facility]annUR[facility] AND UGJPK1022-12-37 20:58:00Light Yellow *NA*(10/22/15 2:58 PM)[facility]annUR[facility] AND NIHUO8442-22-30 20:58:001.009[facility]annURINE AND EGDCZ8338-18-18 20:58:00Clear (10/22/15 2:58 PM)[facility]annURINE AND OYSIR4278-35-31 20:58:007.0[facility]annURINE AND BCQGT3366-40-69 20:58:00 Negative (10/22/15 2:58 PM)[facility] HermannBACTERIAL - KYHMRILA0809-24-57 19:20:00 Negative (10/22/15 1:20 PM)[facility] HermannCHEM JQPWE0844-22-98 19:20:0032.0 [facility] HermannCHEM WZZUM9743-03-06 19:20:69559Bcfswqle HermannCHEM PANEL 2015-10-22 19:20:000.9[facility] HermannCHEM PYGEC8696-20-31 19:20:002.2[facility] HermannCHEM YSMOC6505-48-23 19:20:001.0[facility] HermannCHEM HYHHW8069-10-27 19:20:0016[facility] HermannCHEM NXIQQ0476-08-47 19:20:000.4[facility] HermannCHEM BQBTA2866-81-40 19:20:0042[facility] HermannCHEM VXQPP6896-42-43 19:20:000.1 [facility] HermannCHEM YLMNF2875-24-86 19:20:004.3[facility] HermannCHEM PANEL 2015-10-22 19:20:002.1[facility] HermannCHEM VONKE3157-43-13 19:20:0019[facility] HermannCHEM ORWHF8840-96-29 19:20:000.3[facility] JscsshaAIQVNHRDSXKTP3677-52-51 19:20:003.4[facility]
[2021-03-22] MEDS ORDERED: LORazepam 2 MG/ML VIAL ONE (01:00)
[2021-03-22 01:01] LABS: Absolute Lymphocytes (CBC) 1.5 K/uL (0.7-4.9); Basophils % 1.3 % (0-1.3); Hematocrit 31.1 % (36.0-45.0); Lymphocytes % 20.2 % (15.3-44.8); MPV 7.8 fL (7.6-11.3); RBC Red Blood Cell Count 3.35 M/uL (3.86-4.86)
[2021-03-22 01:03] LABS: Protime INR 1.09
[2021-03-22 01:17] LABS: ALT/SGPT 15 U/L (12-78); AST/SGOT 15 U/L (15-37); Albumin 3.5 g/dL (3.4-5.0); Alkaline Phosphatase 80 U/L (45-117); BUN Blood Urea Nitrogen 44 mg/dL (7-18); Bicarbonate 26 mmol/L (21-32); Bilirubin Direct < 0.1 mg/dL (0-0.2); Bilirubin Total 0.5 mg/dL (0.2-1.0); Glucose Level 161 mg/dL (74-106); Lipase 93 U/L (73-393); Magnesium 2.2 mg/dL (1.8-2.4); NT PRO-BNP 283 pg/mL (<450); Potassium 4.1 mmol/L (3.5-5.1); Protein, Total 6.9 g/dL (6.4-8.2); Sodium Level 141 mmol/L (136-145); Troponin (Emerg Dept Use Only) < 0.02 ng/mL (0.0-0.045)
--- NOTE | 2021-03-22 01:53 | ER ---
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 Coronavirus screen: ak2 Client denies travel out of the [place] in the last 14 days. At this time, the client does not indicate any symptoms associated with coronavirus-19. Ebola Screen: Patient negative for fever greater than or equal to 101.5 degrees Fahrenheit, and additional compatible Ebola Virus Disease symptoms Patient denies exposure to infectious person. Patient denies travel to an Ebola-affected area in the 21 days before illness onset. No symptoms or risks identified at this time. Initial Sepsis Screen: Does the patient meet any 2 criteria? No. Patient's initial sepsis screen is negative. Does the patient have a suspected source of infection? No. Patient's initial sepsis screen is negative. Risk Assessment: Do you want to hurt yourself or someone else? Patient reports no desire to harm self or others. Onset of symptoms was March 22, 2021. 00:27 Method Of Arrival: Ambulatory ak2 00:27 Acuity: [place] 3 ak2 Triage Assessment: 00:32 General: Appears in no apparent distress. Behavior is calm, cooperative. Pain: Denies ak2 pain. Historical: - Allergies: 00:31 Augmentin; ak2 - Home Meds: 00:31 Advair Diskus 500-50 mcg/dose Inhl dsdv [Active]; Cymbalta 60 mg Oral cpDR 1 cap once ak2 daily [Active]; Keppra 750 mg Oral tab 1 tab 2 times per day [Active]; Lyrica 50 mg Oral 2 times per day [Active]; - PMHx: 00:31 Hypertension; Multiple Sclerosis; ak2 - Immunization history:: Adult Immunizations up to date, Client reports receiving the 2nd dose of the Covid vaccine. - Social history:: Smoking status: unknown. Screenin:33 Abuse screen: Denies threats or abuse. Denies injuries from another. Nutritional ak2 screening: No deficits noted. Tuberculosis screening: No symptoms or risk factors identified. Fall Risk None identified. Assessment: 00:32 General: Appears in no apparent distress. Pain: Denies pain. Neuro: No deficits noted. ak2 Cardiovascular: No deficits noted. Respiratory: No deficits noted. 03:23 Reassessment: Patient and/or family updated on plan of care and expected duration. Pain ak2 level reassessed. Vital Signs: 00:27 BP 110 / 72; Pulse 70; Resp 16; Temp 98.6; Pulse Ox 100% ; Weight 47.17 kg; ak2 03:22 BP 105 / 65; Pulse 66; Resp 18; Pulse Ox 100% ; Weight 47.17 kg; Height 5 ft. 6 in. ak2 (167.64 cm); 11:05 BP 101 / 58 Supine; Pulse 60; Resp 16; Pulse Ox 97% on R/A; mh5 11:09 BP 103 / 71 Sitting; Pulse 57; Resp 14; Pulse Ox 97% on R/A; mh5 11:12 BP 106 / 69 Standing; Pulse 54; Resp 20; Pulse Ox 97% on R/A; mh5 03:22 Body Mass Index 16.79 (47.17 kg, 167.64 cm) ak2 ED Course: 00:15 Patient arrived in ED. la1 00:15 Yusef Echavarria MD is Attending Physician. ervin 00:27 Ralf Cerrato is Primary Nurse. ak2 00:31 Triage completed. ak2 00:33 Patient has correct armband on for positive identification. ak2 00:33 No provider procedures requiring assistance completed. Inserted saline lock: 22 gauge ak2 in right forearm, using aseptic technique. 01:02 Notified ED physician of a critical lab result(s). DD [id number]. em 01:23 XRAY Chest (1 view) In Process Unspecified. EDMS 01:51 Tunde Pham MD is Hospitalizing Provider. ervin 01:53 CT Chest For PE Angio In Process Unspecified. EDMS 02:15 Humphrey Epps DO is Hospitalizing Provider. la1 07:00 Patient admitted, IV remains in place. intact. sv 09:43 Primary Nurse role handed off by Ralf Cerrato sv 09:43 Madhavi Gotti, RN is Primary Nurse. sv Administered Medications: 00:34 Drug: NS 0.9% 500 ml Route: IV; Rate: bolus; Site: left forearm; jm8 00:34 Drug: NS 0.9% 1000 ml Route: IV; Rate: 125 ml/hr; Site: left forearm; jm8 00:45 Drug: Ativan (LORazepam) 0.5 mg Route: IVP; Site: left wrist; jm8 02:16 Drug: NS 0.9% 500 ml Route: IV; Rate: bolus; Site: right antecubital; ak2 02:16 Drug: Mucomyst - Acetylcysteine 600 mg Route: PO; ak2 02:16 Drug: Aspirin 81 mg Route: PO; ak2 Outcome: 01:52 Decision to Hospitalize by Provider. ervin 07:00 Admitted to ER Hold. Please see [facility] for further documentation. sv 07:00 Condition: stable 07:00 Instructed on the need for admit. 18:21 Patient left the ED. sv Signatures: Dispatcher [employer] Madhavi Marino RN RN sv Anderson, Corey, MD MD cha Munoz, Edgar, RN RN em Attema, Lee, UTILITY SPECIALIST-C UTILITY SPECIAL[facility] CountyJonelle Dickey Demarcus Child RN RN jm8 Kapolka, Anthony ak
--- NOTE | 2021-03-22 01:53 | EDPHYS ---
Physician Documentation [facility] Name: Rosina Odonnell Age: 85 yrs Sex: Female : 1935 Arrival Date: 03/22/2021 Time: 00:15 Bed 7 Private MD: SONNY Physician Yusef Echavarria HPI: 03/22 00:32 This 85 yrs old Female presents to ER via Ambulatory with complaints of ervin anxious. Historical: - Allergies: 00:31 Augmentin; ak2 - Home Meds: 00:31 Advair Diskus 500-50 mcg/dose Inhl dsdv [Active]; Cymbalta 60 mg Oral cpDR 1 cap once ak2 daily [Active]; Keppra 750 mg Oral tab 1 tab 2 times per day [Active]; Lyrica 50 mg Oral 2 times per day [Active]; - PMHx: 00:31 Hypertension; Multiple Sclerosis; ak2 - Immunization history:: Adult Immunizations up to date, Client reports receiving the 2nd dose of the Covid vaccine. - Social history:: Smoking status: unknown. ROS: 00:35 Constitutional: Negative for fever, chills, and weight loss, Eyes: Negative for injury, ervin pain, redness, and discharge, ENT: Negative for injury, pain, and discharge, Neck: Negative for injury, pain, and swelling, Respiratory: Negative for shortness of breath, cough, wheezing, and pleuritic chest pain, Abdomen/GI: Negative for abdominal pain, nausea, vomiting, diarrhea, and constipation, Back: Negative for injury and pain, : Negative for injury, bleeding, discharge, and swelling, MS/Extremity: Negative for injury and deformity, Skin: Negative for injury, rash, and discoloration, Neuro: Negative for headache, weakness, numbness, tingling, and seizure, Psych: Negative for depression, anxiety, suicide ideation, homicidal ideation, and hallucinations, Allergy/Immunology: Negative for hives, rash, and allergies, Endocrine: Negative for neck swelling, polydipsia, polyuria, polyphagia, and marked weight changes, Hematologic/Lymphatic: Negative for swollen nodes, abnormal bleeding, and unusual bruising. 00:35 Cardiovascular: Positive for palpitations. 00:35 Psych: Positive for anxiety. Exam: 00:35 Constitutional: This is a well developed, well nourished patient who is awake, alert, ervin and in no acute distress. Head/Face: Normocephalic, atraumatic. Eyes: Pupils equal round and reactive to light, extra-ocular motions intact. Lids and lashes normal. Conjunctiva and sclera are non-icteric and not injected. Cornea within normal limits. Periorbital areas with no swelling, redness, or edema. ENT: Nares patent. No nasal discharge, no septal abnormalities noted. Tympanic membranes are normal and external auditory canals are clear. Oropharynx with no redness, swelling, or masses, exudates, or evidence of obstruction, uvula midline. Mucous membranes moist. Neck: Trachea midline, no thyromegaly or masses palpated, and no cervical lymphadenopathy. Supple, full range of motion without nuchal rigidity, or vertebral point tenderness. No Meningismus. Chest/axilla: Normal chest wall appearance and motion. Nontender with no deformity. No lesions are appreciated. Cardiovascular: Regular rate and rhythm with a normal S1 and S2. No gallops, murmurs, or rubs. Normal PMI, no JVD. No pulse deficits. Respiratory: Lungs have equal breath sounds bilaterally, clear to auscultation and percussion. No rales, rhonchi or wheezes noted. No increased work of breathing, no retractions or nasal flaring. Abdomen/GI: Soft, non-tender, with normal bowel sounds. No distension or tympany. No guarding or rebound. No evidence of tenderness throughout. Back: No spinal tenderness. No costovertebral tenderness. Full range of motion. Skin: Warm, dry with normal turgor. Normal color with no rashes, no lesions, and no evidence of cellulitis. MS/ Extremity: Pulses equal, no cyanosis. Neurovascular intact. Full, normal range of motion. Psych: Awake, alert, with orientation to person, place and time. Behavior, mood, and affect are within normal limits. 00:35 Neuro: Orientation: is normal, appropriate for stated age, no acute changes, Mentation: is normal, appropriate for stated age, no acute changes, Memory: is normal, appropriate for stated age, no acute changes, Cranial nerves: grossly normal, is grossly normal based on the patient's age, no acute changes, Cerebellar function: is grossly normal, is grossly normal based on the patient's age, Romberg testing Gait: not tested. seizure activity, is not displayed by the patient. 00:41 ECG was reviewed by the Attending Physician. ervin 01:21 Musculoskeletal/extremity: DVT Exam: No signs of deep vein thrombosis. no pain, no ervin swelling, no tenderness, negative Homans' sign noted on exam, no appreciated bluish discoloration, no erythema, no increased warmth. Vital Signs: 00:27 BP 110 / 72; Pulse 70; Resp 16; Temp 98.6; Pulse Ox 100% ; Weight 47.17 kg; ak2 03:22 BP 105 / 65; Pulse 66; Resp 18; Pulse Ox 100% ; Weight 47.17 kg; Height 5 ft. 6 in. ak2 (167.64 cm); 11:05 BP 101 / 58 Supine; Pulse 60; Resp 16; Pulse Ox 97% on R/A; mh5 11:09 BP 103 / 71 Sitting; Pulse 57; Resp 14; Pulse Ox 97% on R/A; mh5 11:12 BP 106 / 69 Standing; Pulse 54; Resp 20; Pulse Ox 97% on R/A; mh5 03:22 Body Mass Index 16.79 (47.17 kg, 167.64 cm) ak2 MDM: 00:15 Patient medically screened. ervin 00:35 Differential Diagnosis sepsis. Data reviewed: vital signs, nurses notes, lab test [facility] result(s), EKG, radiologic studies, plain films. 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 Test interpretation: by ED physician or midlevel provider: ECG, plain radiologic studies. Counseling: I had a detailed discussion with the patient and/or guardian regarding: the historical points, exam findings, and any diagnostic results supporting the discharge/admit diagnosis, lab results, radiology results. 03/22 00:30 Order name: Basic Metabolic Panel; Complete Time: ervin 03/22 00:30 Order name: CBC with Diff; Complete Time: : ervin 03/22 00:30 Order name: LFT's; Complete Time: ervin 03/22 00:30 Order name: Magnesium; Complete Time: ervin 03/22 00:30 Order name: NT PRO-BNP; Complete Time: ervin 03/22 00:30 Order name: PT-INR; Complete Time: :14 [facility] 03/22 00:30 Order name: Troponin (emerg Dept Use Only); Complete Time: 01:33 [facility] 03/22 00:30 Order name: Lipase; Complete Time: 01:33 [facility] 03/22 00:44 Order name: D-Dimer; Complete Time: 01:14 [facility] 03/22 10:37 Order name: Comprehensive Metabolic Panel [facility] 03/22 10:37 Order name: Troponin I [facility] 03/22 10:37 Order name: Lipid Profile [facility] 03/22 10:37 Order name: T4 Free [facility] 03/22 00:30 Order name: XRAY Chest (1 view) [facility] 03/22 00:30 Order name: EKG; Complete Time: 00:31 [facility] 03/22 00:30 Order name: Cardiac monitoring; Complete Time: 00:35 [facility] 03/22 00:30 Order name: EKG - Nurse/Tech; Complete Time: 00:35 [facility] 03/22 00:30 Order name: IV Saline Lock; Complete Time: 00:35 [facility] 03/22 00:30 Order name: Labs collected and sent; Complete Time: 00:35 [facility] 03/22 01:14 Order name: CT Chest For PE Angio [facility] 03/22 10:37 Order name: Thyroid Stimulating Hormone [facility] 03/22 10:45 Order name: Procalcitonin [facility] 03/22 16:47 Order name: Troponin I [facility] 03/22 00:30 Order name: O2 Per Protocol; Complete Time: 00:35 [facility] 03/22 00:30 Order name: O2 Sat Monitoring; Complete Time: 00:35 [facility] EC:41 Rate is 55 beats/min. Rhythm is regular. QRS [place] is Normal. [place] interval is normal. QRS ervin interval is normal. QT interval is normal. No Q waves. T waves are Normal. No ST changes noted. Clinical impression: Sinus bradycardia and No evidence of ischemia. Interpreted by me. Reviewed by me. Administered Medications: 00:34 Drug: NS 0.9% 500 ml Route: IV; Rate: bolus; Site: left forearm; jm8 00:34 Drug: NS 0.9% 1000 ml Route: IV; Rate: 125 ml/hr; Site: left forearm; jm8 00:45 Drug: Ativan (LORazepam) 0.5 mg Route: IVP; Site: left wrist; jm8 02:16 Drug: NS 0.9% 500 ml Route: IV; Rate: bolus; Site: right antecubital; ak2 02:16 Drug: Mucomyst - Acetylcysteine 600 mg Route: PO; ak2 02:16 Drug: Aspirin 81 mg Route: PO; ak2 Disposition Summary: 03/22/21 01:52 Hospitalization Ordered Hospitalization Status: Observation ervin Condition: Stable ervin Problem: new ervin Symptoms: have improved ervin Bed/Room Type: Standard ervin Provider: Humphrey Epps(03/22/21 02:15) la1 Location: Telemetry/MedSurg (observation)(03/22/21 16:58) em1 Room Assignment: 214(03/22/21 16:58) em1 Diagnosis - Dehydration ervin - Chest pain, unspecified ervin - Weakness ervin - Multiple sclerosis ervin Forms: - Medication Reconciliation Form ervin - SBAR form ervin Signatures: Dispatcher [employer] EDMS Yusef Echavarria MD MD cha Carlo, Shabbir em1 Dandre Reid, PULMONARY NURSE PRACTITIONER-C PULMONARY NURSE PRACTITIONER-Cla1 Elaine Laboy, RN Demarcus Perez RN RN [id number] [place], Anthony ak2 Corrections: (The following items were deleted from the chart) 00:44 00:34 D-DIMER+COAG.LAB.BRZ ordered. EDAR EDMS 02:15 01:52 Tunde Pham ervin la1 02:58 01:52 Telemetry/MedSurg (observation) ervin cg 02:58 01:52 ervin cg 16:58 02:58 BR ER HOLD cg em1 16:58 02:58 ERHOLD- cg em1
[2021-03-22] MEDS ORDERED: ASPIRIN 81 MG CHEWABLE TABLET ONE (02:21)
[2021-03-22] MEDS ORDERED: ACETYLCYST 6,000 MG/30 ML VIAL ONE ×2 (02:23→02:34)
--- NOTE | 2021-03-22 02:59 | P.HP ---
Certification for Inpatient Patient admitted to: Observation With expected LOS: <2 Midnights Patient will require the following post-hospital care: None Practitioner: I am a practitioner with admitting privileges, knowledge of patient current condition, hospital course, and medical plan of care. Services: Services provided to patient in accordance with Admission requirements found in Title 42 Section 412.3 of the Code of Federal Regulations Patient History Date of Service: 03/22/21 Primary Care Provider: Dr. Kohler ([facility]/out of town) Reason for admission: Chest pain, renal insufficiency History of Present Illness: 85-year-old female with history of multiple sclerosis, hypertension, hyperlipidemia, anemia, asthma, GERD, seizure disorder presents emergency department for chest tightness, Not feeling right. Patient was evaluated in the emergency department, labs significant for white blood cell count 7.6 h emoglobin 10.4 hematocrit 31.1 D-dimer 696 chloride 108 BUN 44 GFR 40 glucose 161 creatinine 1.28, baseline GFR is around 70. Patient does appear dehydrated. Initial troponin negative EKG unremarkable CT PE protocol negative for pulmonary embolism does demonstrate patchy bilateral opacity edema versus infiltrate, no other signs of infection at this time. Patient does not appear overloaded. ED provider wishes to admit under observation for chest pain, dehydration, renal insufficiency. Allergies amoxicillin trihydrate [From Augmentin] Allergy (Intermediate, Verified 08/23/17 22:05) Itching potassium clavulanate [From Augmentin] Allergy (Intermediate, Verified 08/23/17 22:05) Itching Sulfa (Sulfonamide Antibiotics) [Sulfa(Sulfonamide Antibiotics)] Allergy (Int ermediate, Verified 08/23/17 22:05) Itching Augmentin ES-600 Allergy (Uncoded 08/23/17 22:05) Unknown Home Medications: Alprazolam [Xanax] 0.5 mg PO BEDTIME PRN 09/21/18 Amlodipine [Norvasc] 5 mg PO DAILY 09/21/18 Butalb/Acetaminophen/Caffeine [Jxpcsf-Fxasaulv-Mvva 50-325-40] 2 tab PO QIDP PRN 09/21/18 Duloxetine HCl [Cymbalta] 60 mg PO DAILY 09/21/18 Ergocalciferol (Vitamin D2) [Vitamin D 50,000 Unit Cap] 50,000 unit PO EVERY 7TH DAY 09/21/18 Esomeprazole Mag Trihydrate [Nexium] 40 mg PO DAILY 09/21/18 Fluticasone/Salmeterol [Advair 250-50 Diskus] 1 each IH BID 09/21/18 Hydrocodone Bit/Acetaminophen [Hydrocodon-Acetaminoph 7.5-325] 1 each PO TIDP PRN 09/21/18 Levetiracetam [Keppra] 2 tab PO BEDTIME 09/21/18 Levetiracetam [Keppra] 750 mg PO DAILY 09/21/18 Levofloxacin [Levaquin] 500 mg PO DAILY #7 tablet 09/21/18 Levothyroxine Sodium 25 mcg PO DAILY 09/21/18 Losartan Potassium [Cozaar] 50 mg PO BID 09/21/18 Meclizine HCl 25 mg PO TIDP PRN 09/21/18 Mometasone Furoate [Nasonex] 17 gm NS BID 09/21/18 Montelukast [Singulair] 10 mg PO BEDTIME 09/21/18 Pregabalin [Lyrica] 100 mg PO BEDTIME 09/21/18 methocarbamoL [Robaxin] 2 tab PO BEDTIME 09/21/18 - Past Medical/Surgical History Diabetic: No -: HTN, -: diverticulitis -: OA, osteopenia -: hyperthyroid -: hyperlipidemia -: Vitamin b12 def' -: anemia -: multiple sclerosis -: asthma -: migrain -: depression -: gerd -: hyst -: lumpectomy left breast -: sinus sx -: right elbow -: urethral dilation -: left shoulder Psychosocial/ Personal History: Lives with , retired - Family History Mother -: Hypertension Sister -: Hypertension - Social History Smoking Status: Never smoker Alcohol use: No CD- Drugs: No Caffeine use: No Review of Systems 10-point ROS is otherwise unremarkable General: Weakness, Malaise Respiratory: Shortness of Breath Cardiovascular: Chest Pain, As per HPI Physical Examination - Physical Exam General: Alert, In no apparent distress, Oriented x3 HEENT: Atraumatic, PERRLA, Mucous membr. moist/pink, EOMI, Sclerae nonicteric Neck: Supple, 2+ carotid pulse no bruit, No LAD, Without JVD or thyroid abnormality Respiratory: Clear to auscultation bilaterally, Normal air movement Cardiovascular: Regular rate/rhythm, Normal S1 S2 Gastrointestinal: Normal bowel sounds, No tenderness Musculoskeletal: No tenderness Integumentary: No rashes Neurological: Normal gait, Normal speech, Normal strength at 5/5 x4 extr, Normal tone, Normal affect Lymphatics: No axilla or inguinal lymphadenopathy - Studies Laboratory Data (last 24 hrs) 03/22/21 00:40: PT 12.6 H, INR 1.09 03/22/21 00:40: WBC 7.60, Hgb 10.4 L, Hct 31.1 L, Plt Count 217 03/22/21 00:40: Sodium 141, Potassium 4.1, BUN 44 H, Creatinine 1.28, Glucose 161 H, Magnesium 2.2, Total Bilirubin 0.5, AST 15, ALT 15, Alkaline Phosphatase 80, Lipase 93 Assessment and Plan - Plan Assessment Chest pain rule out ACS renal insufficiency/dehydration Hypertension Hyperlipidemia Hypothyroidism GERD Multiple sclerosis Seizure disorder Normocytic Anemia Plan Chest pain rule out ACS: Monitor on telemetry, trend troponins, continue with daily aspirin, statin therapy, continue home medications. Cardiology consult in place. DVT prophylaxis heparin 5000 units subcutaneous twice daily. renal insufficiency/dehydration: Continue with IV fluids overnight, current GFR 40 baseline GFR around 70. Patient appears dry. Will recheck chemistry with morning labs. Hypertension: Obtain and continue home medications, adjust as necessary Hyperlipidemia: Continue home meds, lipid panel with morning labs Hypothyroidism: Continue med thyroid panel with morning labs GERD: Continue with Protonix IV Multiple sclerosis: Continue home medications, stable this time. Patient ambulates with cane. Lives with , able to care for self. Seizure disorder: Continue medication, no seizures long time per patient. Normocytic Anemia: Stable, chronic. Discharge Plan: Home Plan to discharge in: 24 Hours - Advance Directives Does patient have a Living Will: Yes Does patient have a Durable POA for Healthcare: Yes - Code Status/Comfort Care Code Status Assessed: Yes (Full code) Critical Care: No Time Spent Managing Pts Care (In Minutes): 55
[2021-03-22] MEDS: NA CHLORIDE 0.9% 1,000 ML IV SCH ×2 (03:24→20:23)
[2021-03-22] MEDS ORDERED: SODIUM CHLORIDE 0.9% 10ML INJ IV PRN (03:24)
[2021-03-22] MEDS ORDERED: ONDANSETRON 4 MG/2 ML VIAL IV PRN (03:24)
[2021-03-22] MEDS ORDERED: ACETAMINOPHEN 500 MG TAB PO PRN (03:24)
[2021-03-22 03:34] VITALS: BMI 16.7
--- NOTE | 2021-03-22 06:21 | P.DS ---
Admission Date: 03/22/21 Discharge Date: 03/23/21 Primary Care Provider: Dr. Kohler ([facility]/out of town) Disposition: ROUTINE DISCHARGE Discharge Condition: GOOD Reason for Admission: Chest pain, renal insufficiency Consultations: Cardiology-Dr. Lisa Procedures: CT Scan: FINDINGS: Pulmonary arteries and vascular: Diagnostic quality bolus. No filling defects. Heart and mediastinum: Heart size is mildly enlarged. No lymphadenopathy. Severe multivessel calcified and soft atherosclerosis. Thyroid gland: A 1.6 cm left thyroid nodule is noted. Lungs: Scattered bilateral groundglass opacities are present. Airways: No filling defects. No bronchiectasis. Pleura: No pneumothorax. No significant pleural effusion. Subphrenic structures: Fluid is noted in the esophagus. Musculoskeletal and soft tissues: Left shoulder arthroplasty in place. An arthroplasty screw has its tip adjacent to the posterior left third rib which demonstrates chronic deformation. Severe degenerative changes of the right shoulder. IMPRESSION: 1. No evidence of pulmonary embolus. 2. Scattered bilateral groundglass opacities favor mild edema and less likely early pneumonia. 3. Mild cardiomegaly. 4. Severe atherosclerosis. 5. 1.6 cm left thyroid nodule. Recommend thyroid ultrasound. 6. Fluid in the esophagus may be due to reflux. Medical Problem List: Chest pain atypical likely GI related Renal insufficiency/dehydration likely from medication Hypertension Hyperlipidemia Hypothyroidism GERD Multiple sclerosis Seizure disorder Normocytic Anemia CAD CT scan showing 1.6 left thyroid nodule Brief History of Present Illness: 85-year-old female with history of multiple sclerosis, hypertension, hyperlipidemia, anemia, asthma, GERD, seizure disorder presents emergency department for chest tightness, Not feeling right. Patient was evaluated in the emergency department, labs significant for white blood cell count 7.6 hemoglobin 10.4 hematocrit 31.1 D-dimer 696 chloride 108 BUN 44 GFR 40 glucose 161 creatinine 1.28, baseline GFR is around 70. Patient does appear dehydrated. Initial troponin negative EKG unremarkable CT PE protocol negative for pulmonary embolism does demonstrate patchy bilateral opacity edema versus infiltrate, no other signs of infection at this time. Patient does not appear overloaded. ED provider wishes to admit under observation for chest pain, dehydration, renal insufficiency. Hospital Course: Patient presented with chest pain. Symptoms were atypical. Patient was seen and evaluated by cardiology. Cardiac enzymes unremarkable. No significant EKG changes noted. Cardiology suspects this is likely GI related. Patient has done well. Patient previously on Pepcid. This was changed to Protonix. At discharge patient will continue with Protonix 40 mg daily. Carafate 1 g 3 times a day with meals also added. At discharge recommend follow-up with PCP within 1 week to follow-up hospitalization. Patient may benefit with GI evaluation as an outpatient to further address. Cardiology follow-up is recommended. Cardiology will plan for outpatient cardiac stress test due to likely underlying CAD noted on CT scan. Patient also had acute renal insufficiency likely from dehydration and blood pressure medication. Patient reported dizziness. Patient with history of vertigo and takes meclizine as needed. Patient also with history of hypertension. Blood pressure medications were held due to low blood pressure and acute renal insufficiency. Blood pressure medication held included losartan 50 mg 1 pill twice daily, hydrochlorothiazide 12.5 mg daily and carvedilol 6.25 mg twice daily. At discharge blood pressure remained stable off medication. No need for medication at this time. Recommend to discontinue blood pressure medicationslosartan, hydrochlorothiazide and carvedilol. Recommend to monitor blood pressure daily. If blood pressure remains above 140/90 consider restarting carvedilol. For now recommend follow-up with PCP within 1 week to go over blood pressure results and monitor closely. Patient with hypothyroidism. At discharge she will continue with her medicationlevothyroxine 50 mcg daily. Patient with multiple sclerosis with chronic pain. At discharge she will continue with her current medicationNorco 7.51 p.o. 4 times a day as needed for pain, Robaxin 750 mg at bedtime as needed for muscle spasm, Lyrica 300 mg daily. Recommend follow-up with PCP to further monitor and adjust medication. Patient with underlying seizure disorder. At discharge she will continue with her current medicationKeppra 750 mg 1 pill twice daily. Patient with depression anxiety. At discharge she will continue with her current medications of Xanax 0.5 mg at bedtime as needed, trazodone 50 mg at bedtime. Follow-up with PCP to further monitor and adjust medication. Patient may continue with her other medications including Singulair 10 mg daily and Benadryl 25 mg at bedtime as needed. Patient with chronic anemia. This has remained stable. Recommend to recheck labCBC in 4 to 6 weeks to monitor her progress. CT scan showed arthrosclerosis. Recommend follow-up with cardiology as directed above. Patient will have outpatient cardiac stress test and echocardiogram to further evaluate. CT scan revealed 1.6 cm left thyroid nodule. This can be followed up as an outpatient with her PCP. Vital Signs/Physical Exam: Temp Pulse Resp BP Pulse Ox 98.6 F 62 16 94/64 98 03/22/21 03:35 03/22/21 03:35 03/22/21 06:00 03/22/21 06:00 03/22/21 06:00 General: Alert, In no apparent distress, Oriented x3, Cooperative HEENT: Atraumatic Neck: Supple Respiratory: Clear to auscultation bilaterally, Normal air movement Cardiovascular: Normal pulses, Regular rate/rhythm Gastrointestinal: Normal bowel sounds, No tenderness, No masses, No rebound, No guarding Musculoskeletal: No erythema, No tenderness, No warmth Integumentary: No tenderness/swelling, No erythema, No warmth, No cyanosis Neurological: Normal speech, Normal strength at 5/5 x4 extr, Normal tone, Normal affect Laboratory Data at Discharge: WBC 7.60 K/uL (4.3-10.9) 03/22/21 00:40 Hgb 10.4 g/dL (12.0-15.0) L 03/22/21 00:40 Hct 31.1 % (36.0-45.0) L 03/22/21 00:40 Plt Count 217 K/uL (152-406) 03/22/21 00:40 PT 12.6 SECONDS (9.5-12.5) H 03/22/21 00:40 INR 1.09 03/22/21 00:40 Sodium 141 mmol/L (136-145) 03/22/21 00:40 Potassium 4.1 mmol/L (3.5-5.1) 03/22/21 00:40 BUN 44 mg/dL (7-18) H 03/22/21 00:40 Creatinine 1.28 mg/dL (0.55-1.3) 03/22/21 00:40 Glucose 161 mg/dL (74-106) H 03/22/21 00:40 Magnesium 2.2 mg/dL (1.8-2.4) 03/22/21 00:40 Total Bilirubin 0.5 mg/dL (0.2-1.0) 03/22/21 00:40 AST 15 U/L (15-37) 03/22/21 00:40 ALT 15 U/L (12-78) 03/22/21 00:40 Alkaline Phosphatase 80 U/L (45-117) 03/22/21 00:40 Lipase 93 U/L (73-393) 03/22/21 00:40 Home Medications: Alprazolam [Xanax] 0.5 mg PO BEDTIME PRN 09/21/18 Hydrocodone Bit/Acetaminophen [Hydrocodon-Acetaminoph 7.5-325] 1 each PO QIDP PRN 09/21/18 Levetiracetam [Keppra] 750 mg PO BID 09/21/18 Levothyroxine Sodium 0.05 mg PO DAILY 09/21/18 Montelukast [Singulair*] 10 mg PO BEDTIME 09/21/18 Pregabalin [Lyrica] 300 mg PO BEDTIME 09/21/18 methocarbamoL [Robaxin*] 1 tab PO BEDTIME 09/21/18 Diphenhydramine [Benadryl*] 25 mg PO BEDTIME PRN PRN 03/22/21 Trazodone [Desyrel*] 50 mg PO BEDTIME 03/22/21 Pantoprazole [Protonix Tab] 40 mg PO DAILY #30 tab 03/23/21 Sucralfate [Carafate*] 1 gm PO ACHS #90 tab 03/23/21 New Medications: Sucralfate [Carafate*] 1 gm PO ACHS #90 tab Pantoprazole [Protonix Tab] 40 mg PO DAILY #30 tab Physician Discharge Instructions: Patient presented with chest pain. Symptoms were atypical. Patient was seen and evaluated by cardiology. Cardiac enzymes unremarkable. No significant EKG changes noted. Cardiology suspects this is likely GI related. Patient has done well. Patient previously on Pepcid. This was changed to Protonix. At discharge patient will continue with Protonix 40 mg daily. Carafate 1 g 3 times a day with meals also added. At discharge recommend follow-up with PCP within 1 week to follow-up hospitalization. Patient may benefit with GI evaluation as an outpatient to further address. Cardiology follow-up is recommended. Cardiology will plan for outpatient cardiac stress test due to likely underlying CAD noted on CT scan. Patient also had acute renal insufficiency likely from dehydration and blood pressure medication. Patient reported dizziness. Patient with history of vertigo and takes meclizine as needed. Patient also with history of hypertension. Blood pressure medications were held due to low blood pressure and acute renal insufficiency. Blood pressure medication held included losartan 50 mg 1 pill twice daily, hydrochlorothiazide 12.5 mg daily and carvedilol 6.25 mg twice daily. At discharge blood pressure remained stable off medication. No need for medication at this time. Recommend to discontinue blood pressure medicationslosartan, hydrochlorothiazide and carvedilol. Recommend to monitor blood pressure daily. If blood pressure remains above 140/90 consider r estarting carvedilol. For now recommend follow-up with PCP within 1 week to go over blood pressure results and monitor closely. Patient with hypothyroidism. At discharge she will continue with her medicationlevothyroxine 50 mcg daily. Patient with multiple sclerosis with chronic pain. At discharge she will continue with her current medicationNorco 7.51 p.o. 4 times a day as needed for pain, Robaxin 750 mg at bedtime as needed for muscle spasm, Lyrica 300 mg daily. Recommend follow-up with PCP to further monitor and adjust medication. Patient with underlying seizure disorder. At discharge she will continue with her current medicationKeppra 750 mg 1 pill twice daily. Patient with depression anxiety. At discharge she will continue with her current medications of Xanax 0.5 mg at bedtime as needed, trazodone 50 mg at bedtime. Follow-up with PCP to further monitor and adjust medication. Patient may continue with her other medications including Singulair 10 mg daily and Benadryl 25 mg at bedtime as needed. Patient with chronic anemia. This has remained stable. Recommend to recheck labCBC in 4 to 6 weeks to monitor her progress. CT scan showed arthrosclerosis. Recommend follow-up with cardiology as directed above. Patient will have outpatient cardiac stress test and echocardiogram to further evaluate. CT scan revealed 1.6 cm left thyroid nodule. This can be followed up as an outpatient with her PCP. Diet: AHA Activity: Fall precautions Followup: NONE,NONE [Primary Care Provider] - Time spent managing pt's care (in minutes): 55
--- NOTE | 2021-03-22 07:15 | RAD REPORT ---
EXAM DESCRIPTION: RAD - Chest Single View - 03/22/2021 1:23 am CLINICAL HISTORY: COUGH COMPARISON: Chest Single View dated 11/22/2020; Chest Pa And Lat (2 Views) dated 03/27/2019; Chest Pa And Lat (2 Views) dated 09/16/2018; Chest Single View dated 02/03/2018 FINDINGS: Similar mild cardiomegaly. No edema or consolidation. Left shoulder arthroplasty. Visualiz ed upper abdomen is unremarkable. IMPRESSION: No acute cardiopulmonary disease.
--- NOTE | 2021-03-22 07:43 | EKG ---
Test Date: 2021-03-22 Test Time: 00:22:51 Block Sorter: MEASUREMENT RESULTS: Intervals: Rate: 55 IN: 186 QRSD: 82 QT: 444 QTc: 424 [place]: P: 62 IN: 186 QRS: 33 T: 47 INTERPRETIVE STATEMENTS: Sinus bradycardia with marked sinus arrhythmia Otherwise normal ECG Compared to ECG 11/22/2020 21:31:53 Sinus rhythm no longer present Myocardial infarct finding no longer present Electronically Signed On 03-22-21 07:42:28 CDT by Tobias Lisa
[2021-03-22] MEDS: ASPIRIN EC 81 MG TAB PO SCH (08:19)
[2021-03-22] MEDS: HEPARIN 5000 UNIT/ML 1 ML VIAL SQ SCH ×2 (08:19→20:18)
[2021-03-22] MEDS ORDERED: HEPARIN 5000 UNIT/ML 1 ML VIAL ONE (08:21)
[2021-03-22] MEDS ORDERED: PANTOPRAZOLE 40 MG INJ ONE (08:21)
[2021-03-22] MEDS ORDERED: ASPIRIN EC 81 MG TAB PO ONE (08:21)
[2021-03-22] MEDS ORDERED: PNEUMOCOCCAL VACCINE 0.5 ML IMVAC ONE (09:00)
[2021-03-22] MEDS ORDERED: PANTOPRAZOLE 40 MG INJ IVP SCH (09:00)
--- NOTE | 2021-03-22 10:35 | RAD REPORT ---
EXAM DESCRIPTION: CT - Chest For Pe Angio - 03/22/2021 6:50 am COMPARISON: None. CLINICAL HISTORY: Chest pain;Dyspnea TECHNIQUE: CT images through the chest with IV contrast using the pulmonary embolus protocol. Multip lanar reformats. Automated exposure control was utilized on this examination as a dose lowering techn ique. FINDINGS: Pulmonary arteries and vascular: Diagnostic quality bolus. No filling defects. Heart and mediastinum: Heart size is mildly enlarged. No lymphadenopathy. Severe multivessel calcifie d and soft atherosclerosis. Thyroid gland: A 1.6 cm left thyroid nodule is noted. Lungs: Scattered bilateral groundglass opacities are present. Airways: No filling defects. No bronchiectasis. Pleura: No pneumothorax. No significant pleural effusion. Subphrenic structures: Fluid is noted in the esophagus. Musculoskeletal and soft tissues: Left shoulder arthroplasty in place. An arthroplasty screw has its tip adjacent to the posterior left third rib which demonstrates chronic deformation. Severe degenerat cely changes of the right shoulder. IMPRESSION: 1. No evidence of pulmonary embolus. 2. Scattered bilateral groundglass opacities favor mild edema and less likely early pneumonia. 3. Mild cardiomegaly. 4. Severe atherosclerosis. 5. 1.6 cm left thyroid nodule. Recommend thyroid ultrasound. 6. Fluid in the esophagus may be due to reflux. Electronically signed by: Geoffrey Morales MD 03/22/2021 2:11 AM CDT Due to temporary technical issues with the PACS/Fluency reporting system, reports are being signed by the in house radiologist without review as a courtesy to ensure prompt reporting. The interpreting r adiologist is fully responsible for the content of the report.
[2021-03-22 10:37] LABS: ALT/SGPT 15 U/L (12-78); AST/SGOT 16 U/L (15-37); Albumin 3.3 g/dL (3.4-5.0); Alkaline Phosphatase 73 U/L (45-117); BUN Blood Urea Nitrogen 34 mg/dL (7-18); Bicarbonate 26 mmol/L (21-32); Bilirubin Total 0.4 mg/dL (0.2-1.0); Glucose Level 88 mg/dL (74-106); HDL Cholesterol 51 mg/dL (40-60); LDL Cholesterol, Calculated 78 (<130); Potassium 3.9 mmol/L (3.5-5.1); Protein, Total 6.8 g/dL (6.4-8.2); Sodium Level 141 mmol/L (136-145); Troponin I < 0.02 ng/mL (0.0-0.045)
[2021-03-22] MEDS ORDERED: methocarbamoL 750 MG TAB PO PRN (11:20)
[2021-03-22] MEDS ORDERED: HYDROCODONE/APAP 7.5/325 MG TAB PO PRN (11:20)
[2021-03-22] MEDS ORDERED: ALPRAZOLAM 0.5 MG TABLET PO PRN (11:20)
[2021-03-22] MEDS ORDERED: DIPHENHYDRAMINE 25 MG TAB/CAP PO PRN (11:20)
--- NOTE | 2021-03-22 11:26 | P.PN ---
Subjective Date of Service: 03/22/21 Primary Care Provider: Dr. Kohler ([facility]/out of town) Chief Complaint: Chest pain, renal insufficiency Subjective: Improving, Doing well, Other (Patient much improved still feeling very weak.) Physical Examination - Vital Signs Temperature: 98 F Blood Pressure: 94/43 Pulse: 56 Respirations: 16 Pulse Ox (%): 99 - Studies Laboratory Data (last 24 hrs) 03/22/21 00:40: PT 12.6 H, INR 1.09 03/22/21 00:40: WBC 7.60, Hgb 10.4 L, Hct 31.1 L, Plt Count 217 03/22/21 00:40: Sodium 141, Potassium 4.1, BUN 44 H, Creatinine 1.28, Glucose 161 H, Magnesium 2.2, Total Bilirubin 0.5, AST 15, ALT 15, Alkaline Phosphatase 80, Lipase 93 Assessment & Plan Discharge Plan: Home Plan to discharge in: 24 Hours Physician Review Additional Text: Physical Exam: GENERAL: Patient appears better hydrated with IV fluids. VITAL SIGNS: Reviewed HEENT: Head is normocephalic and atraumatic. Extraocular muscles are intact. Pupils are equal, round, and reactive to light and accommodation. Nares appeared normal. Mouth is well hydrated and without lesions. Mucous membranes are moist. NECK: Supple. No carotid bruits. No lymphadenopathy or thyromegaly. LUNGS: Clear to auscultation. No crackles or wheezes are heard. HEART: Regular rate and rhythm, no appreciable gallops, rubs, murmurs or extra heart sounds ABDOMEN: Soft, nontender, and nondistended. Positive bowel sounds. No hepatosplenomegaly was noted. EXTREMITIES: Without any cyanosis, clubbing, rash, lesions or peripheral edema. NEUROLOGIC: The patient is oriented to person, place and time. Strength and sensation are grossly intact. Face is symmetric. SKIN: Normal color, turgor and temperature. No ulcerations or rashes noted. Impression: Chest pain atypical likely GERD related Acute renal insufficiency secondary to dehydration Hypertension Hyperlipidemia Hypothyroidism GERD Multiple sclerosis Seizure disorder Normocytic Anemia Plan: Chest pain atypical likely GERD related: Cardiac enzymes unremarkable. Chest pain atypical. Case discussed with cardiology. No intervention needed. Patient with acute renal insufficiency with dehydration. Hold all blood pressure medication. Continue IV fluids. Will provide medication for GERD. While physical therapy assess ambulation. Check orthostatics. If much improved will consider discharge as early as today if not tomorrow. Care discussed with . Will reassess later today to consider possible discharge if significantly improved. Acute renal insufficiency secondary to dehydration: Continue IV fluids. Orthostatics to be checked. Physical therapy to assess and evaluate. Continue to hold blood pressure medications. Hypertension: Hold blood pressure medications. Patient on hydrochlorothiazide, losartan and carvedilol. Likely no need for losartan and hydrochlorothiazide at discharge. If blood pressures increase will restart carvedilol but make changes appropriately. Hyperlipidemia: Continue with home medication Hypothyroidism:Continue with home medication GERD: We will provide Protonix. We will add Carafate. Multiple sclerosis: Continue with her medications Seizure disorder: Continue with her medication Normocytic Anemia: Overall stable. Monitor closely. Code Status: Full Code DVT prophylaxis: Lovenox Advanced Care Planning-30 minutes: Plan of care for the patient's discharge was discussed in detail with the patient and family. Time Spent Managing Pts Care (In Minutes): 55
[2021-03-22] MEDS: SUCRALFATE 1 GM TABLET PO SCH ×3 (11:30→20:59)
[2021-03-22] MEDS ORDERED: SUCRALFATE 1 GM TABLET ONE ×2 (12:06→18:06)
[2021-03-22] MEDS ORDERED: MECLIZINE HCL 12.5 MG TAB PO ONE (14:01)
[2021-03-22] MEDS ORDERED: MECLIZINE HCL 12.5 MG TAB ONE (14:25)
[2021-03-22] MEDS: PANTOPRAZOLE 40 MG INJ IVP SCH (20:16)
[2021-03-22] MEDS: levETIRAcetam 500 MG TAB PO SCH (20:17)
[2021-03-22] MEDS ORDERED: PREGABALIN 150 MG CAP PO SCH (21:00)
[2021-03-22] MEDS ORDERED: MONTELUKAST 10 MG TAB PO SCH (21:00)
[2021-03-22] MEDS ORDERED: ATORVASTATIN 40 MG TAB PO SCH (21:00)
[2021-03-23 02:26] VITALS: O2SAT 94
[2021-03-23] MEDS: NA CHLORIDE 0.9% 1,000 ML IV SCH (06:14)
[2021-03-23] MEDS ORDERED: LEVOTHYROXINE SOD 0.05 MG TABLET PO SCH (06:30)
[2021-03-23] MEDS: ASPIRIN EC 81 MG TAB PO SCH (08:24)
[2021-03-23] MEDS: SUCRALFATE 1 GM TABLET PO SCH (08:24)
[2021-03-23] MEDS: levETIRAcetam 500 MG TAB PO SCH (08:25)
[2021-03-23] MEDS: HEPARIN 5000 UNIT/ML 1 ML VIAL SQ SCH (08:27)
[2021-03-23 09:00] LABS: Albumin 3.5 g/dL (3.4-5.0); Bilirubin Total 0.3 mg/dL (0.2-1.0); Protein, Total 6.8 g/dL (6.4-8.2)
[2021-03-23] MEDS: PANTOPRAZOLE 40 MG INJ IVP SCH (09:00)
[2021-03-23 09:23] VITALS: BP 142/68; TEMP 97.4
--- NOTE | 2021-03-24 13:17 | CON ---
Date of Consultation: 03/22/2021 Reason For Consultation: Back and atypical chest pain. History Of Present Illness: Ms. Odonnell is an 85-year-old woman who has history of multiple sclerosis, hypertension, depression, COPD, came in with mid-epigastric chest pain with some nausea, but no diap horesis, PND, orthopnea, pedal edema, palpitations or syncope. Her symptoms were not exertional, the y occurred while she was laying down. She has ruled out for MS saw her EKG, chest x-ray, and laboratory evaluation. Review of Systems: Positive for anxiety and occasional palpitation. Social History: Negative. Family History: Negative. Medications: At home include Advair Diskus, Cymbalta, Keppra and Lyrica. Physical Examination: Vital Signs: Stable. She was afebrile. HEENT: Negative. Neck: Supple with no bruit, lymphadenopathy, JVD, or thyromegaly. Chest: Clear to auscultation and percussion. Cardiac: Revealed regular rhythm and rate. No murmur, gallops or rub. Abdomen: Benign. Extremities: Revealed no clubbing, cyanosis, or edema. Diagnostic Data: She had a CTA of the chest, which was normal. Chest x-ray was normal. EKG was nor mal. Her laboratory evaluations . Elevated D-dimer with negative CTA. Her troponin was n egative. Her CPK, MB and BNP were negative. Impression And Plan: 1.Atypical chest pain, most likely gastroesophageal reflux disease. 2.Dyslipidemia. 3.Anxiety. 4.Multiple sclerosis. 5.Chronic obstructive pulmonary disease. 6.Hypothyroidism. 7.Gastroesophageal reflux disease. 8.Neuropathy. I will continue her present regimen. She has multiple allergies . I think she needs to ye ve management for that. KENYON/RIGO Voice ID: [id number] Report ID: [id number]
== END 2021-03-23 10:30 | disposition home or self-care (01) ==
LOC: ER 00:13 → ERHOLD 02:26 → 2ND 17:18
PROVIDERS: ADMIT Family Medicine; ATTEND Family Medicine
DX: R07.89 Other chest pain (principal); E78.5 Hyperlipidemia, unspecified; F41.9 Anxiety disorder, unspecified; G35 Multiple sclerosis; I10 Essential (primary) hypertension; F32.9 Major depressive disorder, single episode, unspecified; J44.9 Chronic obstructive pulmonary disease, unspecified; E03.9 Hypothyroidism, unspecified; K21.9 Gastro-esophageal reflux disease without esophagitis; G62.9 Polyneuropathy, unspecified; N28.9 Disorder of kidney and ureter, unspecified; E86.0 Dehydration; G40.909 Epilepsy, unspecified, not intractable, without status epilepticus; D64.9 Anemia, unspecified; I25.10 Atherosclerotic heart disease of native coronary artery without angina pectoris; E04.1 Nontoxic single thyroid nodule; M19.90 Unspecified osteoarthritis, unspecified site; E53.8 Deficiency of other specified B group vitamins
CPT/HCPCS: 93005; 85025; 80048; 36415 ×2; 83735; 85610; 80061; 85379; 80076; 84443; 84484 ×3; 84439; 83690; 80053 ×2; 84145; 83880; 71275; 71045; 97116; 97161; 96374; 99285; Q9967; J1644 ×3; C9113 ×3; J7030 ×2; G0378 ×3

== ENCOUNTER 2021-04-18 19:24 | Inpatient (IN) | payer OTHER ==
--- OUTSIDE RECORDS SUMMARY | 2021-04-18 19:31 | XMS REPORT | Continuity of Care Document ---
:1935 Author Organization [facility] t Address [address] [place] [address] Care Team Providers Name Role Phone Lillian WOLFF, Casey Attending Clinician Unavailable Destiny Goodwin Attending Clinician Richard HAIRSTON Attending Clinician Javier HAIRSTON Attending Clinician Ramsey Shrestha Attending Clinician Theresa Cota DO Attending Clinician Avani Laguerre Attending Clinician Ashlee Rosa Attending Clinician Cony Dunn MD Admitting Clinician Avani Laguerre Admitting Clinician Ashlee Rosa Admitting Clinician Problems Condition Condition Condition Status Onset Resolution Last Treating Co mments Source Name Details Category Date Date Treatment Clinician Date OPEN RIGHT Diagnosis Active 2018-02-09 Memoria HUMERUS FX -23 19:37:00 l OPEN 00:00: [place] RIGHT 00 HUMERUS FX Active 02/03/2018 [facility] Common Problem Active 2021-04-06 Memor ia peroneal 3-16 22:07:18 l nerve Common 00:00: [place] lesion peroneal 00 (disorder) nerve lesion (disorder) Active 11/27/2016 Problem 04/06/2021 [facility] GI BLEED, Diagnosis Active 2015-11-01 Memoria ANEMIA 2-08 21:55:00 l GI 00:00: Raymond BLEED, 00 ANEMIA Active 10/22/2015 [facility] Localizati Problem Active 2015-2021-04-06 M emoria on-related 09-27 22:07:18 l symptomati 00:00: Valdez n c 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) 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) Active 09/27/2015 Problem 04/06/2021 [facility] Anemia Problem Resolve 2021-04-06 Edinson david (disorder) d 22:07:18 l Anemia Raymond (disorder) Resolved Problem 04/06/2021 [facility] Anxiety Problem Resolve 2021-04-06 Mem oria (finding) d 22:07:18 l Anxiety Raymond (finding) Resolved Problem 04/06/2021 [facility] Asthma Problem Resolve 2021-04-06 Edinson david (disorder) d 22:07:18 l Asthma [place] (disorder) Resolved Problem 04/06/2021 [facility] Depressive Problem Resolve 2021-04-06 Memoria disorder d 22:07:18 l (disorder) Valdez n Depressive disorder (disorder) Resolved Problem 04/06/2021 [facility] Hypertensi Problem Resolve 2021-04-06 Memoria ve d 22:07:18 l disorder, Raymond systemic Hypertensi arterial ve (disorder) disorder, systemic arterial (disorder) Resolved Problem 04/06/2021 [facility] Hyperthyro Problem Resolve 2021-04-06 Memoria idism d 22:07:18 l (disorder) Valdez n Hyperthyro idism (disorder) Resolved Problem 04/06/2021 [facility] Multiple Problem Resolve 2021-04-06 Me moria sclerosis d 22:07:18 l (disorder) Multiple He rmann sclerosis (disorder) Resolved Problem 04/06/2021 [facility] Seizure Problem Resolve 2021-04-06 Mem oria (finding) d 22:07:18 l Seizure [place] (finding) Resolved Problem 04/06/2021 [facility] Vertigo Problem Active 2021-04-06 Edinson david (finding) 22:07:18 l Vertigo Raymond (finding) Active Problem 04/06/2021 [facility] Migraine Problem Active 2021-04-06 Mem oria (disorder) 22:07:18 l Migraine Valdez n (disorder) Active Problem 04/06/2021 [facility] GASTROINTE Diagnosis Active 2015-11-01 Memoria STINAL 21:55:00 l HEMORRHAGE Valdez n , GASTROINTE UNSPECIFIE STINAL D HEMORRHAGE , UNSPECIFIE D Active [facility] ANEMIA, Diagnosis Active 2015-11-01 Me moria UNSPECIFIE 21:55:00 l D ANEMIA, Raymond UNSPECIFIE D Active [facility] UNSP Diagnosis Active 2018-02-09 Mem oria FRACTURE 19:37:00 l OF SHAFT UNSP Raymond OF FRACTURE HUMERUS, OF SHAFT UNSP OF HUMERUS, UNSP Active [facility] Exacerbati Problem Resolve 2017-0 2021-04-06 2021-04-06 Memoria on of d 5-12 22:07:18 22:07:18 l multiple 00:00: [place] sclerosis Exacerbati 00 (disorder) on of multiple sclerosis (disorder) Resolved 01/23/2017 Problem 04/06/2021 [facility] Allergies, Adverse Reactions, Alerts Allergy Allergy Status Severity Reaction(s) Onset Inactive Treating Comm ents Source Name Type Date Date Clinician sulfa sulfa Active Memoria drugs drugs l [place] Augmenti Augmenti Active Memori a n n l [place] Social History Social Habit Start Date Stop Date Quantity Comments Source Social History 2018-02-04 2018-02-04 Arun elliott 16:15:22 16:15:22 Medications Ordered Filled Start Stop Current Ordering Indication Dosage Frequency Signature Comments Components Source Medication Medication Date Date Medication? Clinician (SIG) Name Name methocarbam Yes 0 Memori a ol 750 mg 7-16 Refill(s) l oral tablet 18:51: Valdez n 00 Levetiracet Yes See Memori a am 750 MG 3-09 Instructio l Oral Tablet 19:22: ns, TAKE 1 [place] 00 TABLET BY MOUTH TWICE DAILY, # 60 tab, 1 Refill(s), [id number], 162.56, cm, 10/06/19 14:23:00 [employer], Height, 50, kg, 10/06/19 14:23:00 [employer], Weight Levetiracet No See Memori a am 750 MG 3-01 Instructio l Oral Tablet 22:57: ns, TAKE 1 [place] 00 TABLET BY MOUTH TWICE DAILY, # 60 tab, 1 Refill(s), Pharmacy: [id number], 162.56, cm, 10/06/19 14:23:00 [employer], Height, 50, kg, 10/06/19 14:23:00 [employer], Weight lasmiditan 2019-09 Yes 50 mg = 1 Me moria 50 MG Oral 1-12 tab, PO, l Tablet 20:30: PRN, PRN Raymond [Reyvow] 00 migraine, # 8 tab, 2 Refill(s), Pharmacy: [facility] #[id number], 162.56, cm, 10/06/19 14:23:00 [employer], Height, 50, kg, 10/06/19 14:23:00 [employer], Weight Levetiracet 2019-09 Yes 750 mg = 1 Memoria am 750 MG 1-12 tab, PO, l Oral Tablet 20:30: BID, # 180 [place] 00 tab, 1 Refill(s), Pharmacy: [facility] #[id number], 162.56, cm, 10/06/19 14:23:00 [employer], Height, 50, kg, 10/06/19 14:23:00 [employer], Weight Reyvow 50 Yes 50 mg = 1 Mem oria mg oral 7-23 tab, PO, l tablet 19:10: PRN, PRN [place] 00 migraine, # 8 tab, 2 Refill(s), Pharmacy: [facility] #[id number], 162.56, cm, 10/06/19 14:23:00 [employer], Height, 50, kg, 10/06/19 14:23:00 [employer], Weight Levetiracet Yes See Memori a am 750 MG 3-30 Instructio l Oral Tablet 15:45: ns, # 480 H ermann 43 tab, TAKE 1 TABLET BY MOUTH TWICE DAILY, Pharmacy: [facility] #[id number] pregabalin Yes 100 mg = 1 M emoria 100 MG Oral 1-23 cap, PO, l Capsule 20:57: Daily, 0 Valdez n [Lyrica] 00 Refill(s) 12 HR 2018-0 Yes 1 tab, PO, Memori a Acetaminoph [...] tab, PO, l Tablet 19:00: Daily, # Raymond [Norvasc] 00 30 tab, 0 Refill(s) Levetiracet No 750 mg = 1 Memoria am 750 MG 1-03 tab, PO, l Oral Tablet 19:00: BID, X 90 H ermann [Keppra] 00 day, # 180 tab, 1 Refill(s), Pharmacy: [place] [id number] Levetiracet Yes 750 mg = 1 Memoria am 750 MG 5-26 tab, PO, l Oral Tablet 16:13: BID, 0 Herm lori [Keppra] 00 Refill(s) enoxaparin Yes 40 mg = Edinson david 40 mg/0.4 5-26 0.4 mL, l mL 16:07: SUB-Q, Raymond subcutaneou 00 [id number], s solution X 21 day, # 8 mL, 0 Refill(s), Pharmacy: [place] [address] Ergocalcife Yes 50,000 Edinson david rol 24790 5-26 IntlUnit = l UNT Oral 16:07: 1 cap, PO, Her pearson Capsule 00 Q7D, # 5 cap, 0 Refill(s), Pharmacy: [place] [address] Calcium Yes 1 tab, Memoria Carbonate 5-26 CHEW, BID, l 1250 MG / 16:07: # 60 tab, Her pearson Cholecalcif 00 0 ulcia 400 Refill(s), UNT Pharmacy: [facility] [place] [address] oxyCODONE 5 No Notes: Edinson david mg oral 5-26 (Same as: l tablet 15:42: Roxicodone Cassidy nn 00 ) Oxycodone No Notes: Memori a Hydrochlori 5-26 (Same as: l de 5 MG 00:32: Roxicodone Herm lori Oral Tablet ) Calcium No Notes: Memoria Carbonate 5-25 (calcium l 1250 MG / 14:00: carbonate- He rmann Cholecalcif 00 vit D lucia 400 500mg-400u UNT nit TAB) [facility] Same as: Tablet Oyster-D, OsCal-D Ergocalcife No Notes: Edinson david rol [id number] 5-25 (Same as: l UNT Oral 12:00: [...] Vomiting, Start date: 02/04/18 19:10:00 CDT Hydralazine 2018-0 No 10 mg, Edinson david 5-25 Route: l 00:10: IVP, [place] 00 Q20Min, Dosing Weight 51.818, kg, PRN Elevated BP, Start date: 02/04/18 19:10:00 CDT, Duration: 2 doses or times, Stop date: Limited # of times Labetalol 2018-0 No 10 mg, Memori a 5-25 Route: l 00:10: IVP, [place] 00 Q5Min, Dosing Weight 51.818, kg, PRN [...] Memori a 5-25 Route: l 00:10: IVP, [place] 00 Q2MIN, Dosing Weight 51.818, kg, PRN Narcotic Reversal, Start date: 02/04/18 19:10:00 CDT, Duration: 8 doses or times, Stop date: Limited # of times Hydromorpho 2018-0 No 0.5 mg, Mem oria ne 5-25 Route: l 00:10: IVP, [place] 00 Q5Min, Dosing Weight 51.818, kg, PRN Pain Score 7-10, Start date: 02/04/18 19:10:00 CDT, Duration: 4 doses or times, Stop date: Limited # of times Oxycodone 2018-0 No 5 mg, Memoria 5-25 Route: PO, l 00:10: Drug form: [place] 00 TAB, Q4H, Dosing Weight 51.818, kg, PRN Pain Score 4-6, Start date: 02/04/18 19:10:00 CDT, Duration: 30 day, Stop date: 03/06/18 19:09:00 CDT ondansetron 0 No Route: IV, Memoria (ANES) 5-24 Drug [...] CDT, Stop date: 02/04/18 19:00:00 CDT hydromorpho No Route: IV, Memoria ne (ANES) 5-24 Drug form: l 22:51: INJ, ONCE, Stop date: 02/04/18 17:51:00 CDT dexamethaso No Route: IV, Memoria ne (ANES) 5-24 Drug form: l 22:51: INJ, ONCE, Stop date: 02/04/18 17:51:00 CDT rocuronium No Route: IV, M emoria (ANES) 5-24 Drug form: l 22:20: INJ, ONCE, Stop date: 02/04/18 17:20:00 CDT fentaNYL 2017-0 No Route: IV, Mem oria (ANES) 5-24 [...] david formoterol 5-24 [id number] l 13:00: Tania ,[address] Inhale 2 puff(s) by mouth 2 times a day Carols Chiu Mfr_ Don't use after_ Tramadol No Notes: Not Mem oria 5-24 to exceed l 11:00: 400mg/day. (Same As: Ultram) Acetaminoph No Notes: Edinson david en 325 MG / 5-24 (Same as: l Hydrocodone 10:55: [place] Cassidy nn Bitartrate 00 325/5) Do 5 MG Oral not exceed Tablet 4gm/day of [[place] acetaminop 5/325] hen. Ondansetron No Notes: Edinson david 5-24 (Same as: l 10:54: Zofran) MEDICATION WASTE Product Size: 4 mg Product Wasted: ___ mg Acetaminoph No Notes: Edinson david en 325 MG / 5-24 (Same as: l Hydrocodone 10:54: [place] Cassidy nn Bitartrate 00 325/5) Do 5 MG Oral not exceed Tablet 4gm/day of acetaminop hen. Acetaminoph No Notes: Do M emoria en 5-24 not exceed l 10:54: 4 gm/day. (Same [...] 50 Memoria 5-24 microgram, l 09:57: Route: Raymond 00 IVP, ONCE, Dosing Weight 47.001, kg, Priority: STAT, Start date: 02/04/18 4:57:00 CDT, Stop date: 02/04/18 4:57:00 CDT Ancef No Notes: Memoria 5-24 (Same As: l 08:51: Ancef, [place] Kefzol) MEDICATION WASTE Product Size: 1000 mg Product Wasted: ___ mg Fentanyl No Notes: Memoria 5-24 (Same as: l 08:49: Sublimaze) Raymond 00 Preservat cely free. ferrous Yes 325 mg [...] Rate: On l 0.9% 22:16: call for [place] (titrate) 00 use with 250 mL blood product administra tion, Dosing Weight 47.001, kg, Route: IV, Total Volume: 250, Start Date: 10/25/15 16:16:00, Duration: 30 day, Stop date: 11/24/15 16:15:00, Replace Every: 24 hr Sodium No 100 mL, Memoria Chloride 2-11 Rate: 10 l 0.154 20:40: ml/hr, Raymond MEQ/ML 00 Infuse Injectable over: 10 Solution hr, Route: IVPB, Dosing Weight 47.001 kg, Total Volume: 100, Infuse at 8 mg / hr for 72 hours for GI bleeding, Start date: 10/25/15 14:40:00, Duration: 72 hr, Stop date: 10/28/15 14:39:00 Reglan No Notes: Memoria 2-11 (Same as: l 18:00: Reglan) Raymond 00 Morphine No Notes: Memoria 2-11 (Same l 14:51: as:MORPhin [place] 00 e Sulfate) Calcium No Notes: Memoria Carbonate -11 (Same As: l 500 MG 08:39: Tums) [place] Chewable 00 Calcium Tablet Carbonate 500 mg = 200 mg elemental calcium Dose = mg calcium carbonate ( mg elemental calcium) Magnesium No Notes: Memori a Sulfate - WASTE: F/P l 08:39: - Sink; E [place] 00 - Municipal Trash Bin Neutra-Phos No Notes: Edinson david 2-11 (Same as: l 08:39: Neutra-Mary Raymond 00 s) Each 1.25 gm pkt has 250mg phosphorou s. Mix w/2.5oz water and stir. Calcium No Notes: Memoria Gluconate -11 WASTE: F/P l 08:39: - Sink; E Raymond - Municipal Trash Bin Magnesium No Notes: Memori a Oxide 2-11 (Same as: l 08:39: Mag-Ox Raymond 00 400) Magnesium oxide 146qj=363m g elemental magnesium Dose=____m g magnesium oxide (___mg elemental magnesium) potassium No Notes: Memori a phosphate -11 (Same as: l 08:39: K Raymond 00 [...] 2-11 (Same as: l Sodium 08:39: K [place] Chloride 00 Phosphate. 0.9% IV 250 ) 1 mMol mL phoshate has 1.47 mEq potassium Infuse over 4 hours potassium No Notes: Memori a chloride 2-11 (Same as: l 08:39: K-Dur 20) [place] "Do Not Crush" With food and full glass of water Amitriptyli No Notes: Edinson david ne 2-11 (Same as: l 03:00: Elavil) Raymond morphine No Notes: Memoria Sulfate 2-10 (Same l 21:27: as:MORPhin [place] 00 e Sulfate) Phenergan No Notes: Do Mem oria 2-10 not give l 21:26: IV push. Raymond 00 (Same as: Phenergan) carvedilol No Notes: Memor ia 2-10 Give with l 15:00: food. [place] 00 (Same As: Coreg) 24 HR No 500 mg, 1 Memoria Etodolac 2-10 tab, l 500 MG 15:00: Route: PO, Cassidy nn Extended 00 Drug form: Release ERTAB, Tablet BID, Dosing Weight 47.001, kg, Start date: 10/24/15 9:00:00, Duration: 30 day, Stop date: 11/22/15 17:00:00 Nexium No 40 mg, Memoria 2-10 Route: PO, l 15:00: Daily, [place] Dosing Weight 47.001, kg, Start date: 10/24/15 9:00:00, Duration: 30 day, Stop date: 11/22/15 9:00:00 168 HR No Notes: Memoria Clonidine 2-10 Patch l 0.52736 14:44: delivers Valdez n MG/HR 00 0.1 [...] david 2-10 (Same as: l 13:56: Levsin) [place] Take 30 min before meal Acetaminoph No Notes: Edinson david en 325 MG / 2-10 (Same as: l Hydrocodone 13:55: [place] Cassidy nn Bitartrate 00 325/5) Do 5 MG Oral not exceed Tablet 4gm/day of [[place] acetaminop 5/325] hen. Alprazolam No Notes: Memor [...] a 2-10 (Same as: l 04:42: Normodyne, [place] 00 Trandate) Push over 2 minutes Give bolus over 2-3 minutes. Zofran No Notes: Memoria 2-10 (Same as: l 01:05: Zofran) Raymond 00 MEDICATION WASTE Product Size: 4 mg Product Wasted: ___ mg Ondansetron No Notes: Edinson david 2-09 (Same as: l 23:49: Zofran) [place] 00 MEDICATION WASTE Product Size: 4 mg Product Wasted: ___ mg Sublimaze No Notes: Memori a 2-09 (Same as: l 23:30: Sublimaze) [place] 00 Preservat cely free. midazolam No Notes: Memori a 2-09 (Same as: l 23:30: Versed) [place] MEDICATION WASTE Product Size: 2 mg Product Wasted: ___ mg Thyroxine No Notes: Memori a 2-09 Take 1 l 12:30: hour [place] 00 before or 2 hours after meal; Enteral feeds may interefere with the absorption of this medication . (Same as:Levothr oid) Sublimaze No Notes: Memori a 2-09 (Same as: l 03:47: Sublimaze) Raymond 00 Preservat cely free. Saline No Notes: Memoria Flush 0.9% 2-09 (Same as: l 03:00: BD [place] 00 Posiflush) sennosides, No Notes: Edinson david HALF-WAY 2-09 (Same as: l 03:00: Senokot) Raymond 00 Docusate No Notes: Memoria 2-09 (Same as: l 03:00: Colace) [place] (Do Not Crush) Singulair No Notes: Memori a 2-09 (Same l 03:00: as:Singula ir) budesonide- No Notes: Edinson david formoterol 2-08 (Same as: l 160 mcg-4.5 23:00: Symbicort) [place] mcg/inh 00 WASTE: inhalation Aerosol - aerosol Return to with Pharmacy adapter Seroquel No Notes: Memoria 2-08 (Same as: l 23:00: SEROquel) [place] 00 Levetiracet No Notes: Edinson david am 750 MG -08 Same as: l Oral Tablet 23:00: Keppra Herm lori [Keppra] 00 Cymbalta No Notes: Memoria 2-08 (Same as: l 23:00: Cymbalta) Raymond (Do Not Crush) Advair No 1 puff, Memoria Diskus 500 10-22 Route: l mcg-50 mcg 23:00: INHALATION H [...] 00 0 5 MG Oral Refill(s) Tablet [[place] 5/325] carvedilol Yes 3.125 mg = M [...] 1 patch, Memoria Clonidine 2-08 TOP, l 0.58694 19:51: qWeek, # Val[place] n MG/HR 00 12 patch, Transdermal 0 Patch Refill(s) quetiapine Yes 25 mg = 1 Me moria 25 MG Oral 2-08 tab, PO, l Tablet 19:51: BID, 0 [place] [Seroquel] 00 Refill(s) linaclotide Yes 145 Memori [...] symptoms, # 30 tab, 0 Refill(s) hyoscyamine 2015- Yes 0.125 mg = Memoria 0.125 mg [...] 00 Sodium No 100 mL, Memoria Chloride 10-22 Rate: 10 l 0.154 18:59: ml/hr, [place] MEQ/ML 00 Infuse Injectable over: 10 Solution hr, Route: IVPB, Dosing Weight 47.001 kg, Total Volume: 100, Infuse at 8 mg / hr for 72 hours for GI bleeding, Start date: 10/22/15 12:59:00, Duration: 72 hr, Stop date: 10/25/15 12:58:00 Saline No Notes: Memoria Flush 0.9% 10-22 (Same as: l 18:55: BD Raymond 00 Posiflush) Vital Signs Vital Name Observation Time Observation Value Comments Source Systolic (mm Hg) 2021-03-29 18:46:00 Edinson rial [place] Diastolic (mm Hg) 2021-03-29 18:46:00 Mem orial [place] Heart Rate 2021-03-29 18:46:00 [facility] [place] Respitory Rate 2021-03-29 18:46:00 Memori al [place] Systolic (mm Hg) 2019-10-06 20:08:00 Edinson rial [place] Diastolic (mm Hg) 2019-10-06 20:08:00 Mem orial [place] Heart Rate 2019-10-06 20:08:00 [facility] [place] Respitory Rate 2019-10-06 20:08:00 Memori al [place] Height 2019-10-06 20:08:00 162.56 cm [facility] [place] Weight 2019-10-06 20:08:00 [facility] [place] BMI Calculated 2019-10-06 20:08:00 Memori al [place] Weight 2019-03-25 18:58:00 [facility] [place] BMI Calculated 2019-03-25 18:58:00 Memori al [place] Height 2019-03-25 18:58:00 167.64 cm [facility] [place] Systolic (mm Hg) 2019-03-25 18:58:00 Edinson rial [place] Diastolic (mm Hg) 2019-03-25 18:58:00 Mem orial [place] Heart Rate 2019-03-25 18:58:00 [facility] [place] Respitory Rate 2019-03-25 18:58:00 Memori al [place] BMI Calculated 2019-01-21 18:35:00 Memori al [place] Weight 2019-01-21 18:35:00 [facility] [place] Height 2019-01-21 18:35:00 167.64 cm [facility] [place] Respitory Rate 2019-01-21 18:35:00 Memori al [place] Heart Rate 2019-01-21 18:35:00 [facility] [place] Systolic (mm Hg) 2019-01-21 18:35:00 Edinson rial Raymond Diastolic (mm Hg) 2019-01-21 18:35:00 Mem orial [place] BMI Calculated 2018-12-30 14:25:00 Memori al [place] Weight 2018-12-30 14:25:00 [facility] [place] Height 2018-12-30 14:25:00 167.64 cm [facility] [place] Systolic (mm Hg) 2018-12-30 14:25:00 Edinson rial [place] Diastolic (mm Hg) 2018-12-30 14:25:00 Mem orial [place] Respitory Rate 2018-12-30 14:25:00 Memori al [place] Heart Rate 2018-12-30 14:25:00 [facility] [place] Systolic (mm Hg) 2018-10-19 22:38:00 Edinson rial [place] Diastolic (mm Hg) 2018-10-19 22:38:00 Mem orial [place] Heart Rate 2018-10-19 22:38:00 [facility] [place] Respitory Rate 2018-10-19 22:38:00 Memori al [place] Height 2018-10-19 22:38:00 167.64 cm [facility] [place] Weight 2018-10-19 22:38:00 [facility] [place] BMI Calculated 2018-10-19 22:38:00 Memori al [place] Temperature Oral (F) 2018-02-06 17:35:00 99.2 F [facility] [place] Heart Rate 2018-02-06 17:35:00 [facility] [place] Respitory Rate 2018-02-06 17:35:00 Memori al [place] Systolic (mm Hg) 2018-02-06 17:35:00 Edinson rial [place] Diastolic (mm Hg) 2018-02-06 17:35:00 Mem orial [place] Heart Rate 2018-02-06 12:40:00 [facility] [place] Respitory Rate 2018-02-06 12:40:00 Memori al [place] Systolic (mm Hg) 2018-02-06 12:40:00 Edinson rial [place] Diastolic (mm Hg) 2018-02-06 12:40:00 Mem orial [place] Temperature Oral (F) 2018-02-06 12:40:00 98.5 F [facility] [place] Respitory Rate 2018-02-06 08:12:00 Memori al [place] Heart Rate 2018-02-06 08:12:00 [facility] [place] Temperature Oral (F) 2018-02-06 08:12:00 97.8 F [facility] [place] Systolic (mm Hg) 2018-02-06 08:12:00 Edinson rial Raymond Diastolic (mm Hg) 2018-02-06 08:12:00 Mem orial [place] Height 2018-02-05 02:47:00 167.64 cm [facility] [place] Weight 2018-02-05 02:47:00 [facility] [place] BMI Calculated 2018-02-05 02:47:00 Memori al [place] BMI Calculated 2018-02-04 15:52:00 Memori al [place] Weight 2018-02-04 15:52:00 [facility] [place] Height 2018-02-04 15:52:00 167.64 cm [facility] [place] Respitory Rate 2015-10-28 14:00:00 Memori al [place] Systolic (mm Hg) 2015-10-28 14:00:00 Edinson rial Raymond Diastolic (mm Hg) 2015-10-28 14:00:00 Mem orial [place] Temperature Oral (F) 2015-10-28 14:00:00 98.1 F [facility] [place] Heart Rate 2015-10-28 14:00:00 [facility] [place] Respitory Rate 2015-10-28 10:00:00 Memori al [place] Systolic (mm Hg) 2015-10-28 10:00:00 Edinson rial [place] Diastolic (mm Hg) 2015-10-28 10:00:00 Mem orial [place] Heart Rate 2015-10-28 10:00:00 [facility] [place] Temperature Oral (F) 2015-10-28 10:00:00 97.9 F [facility] [place] Respitory Rate 2015-10-28 06:00:00 Memori al [place] Heart Rate 2015-10-28 06:00:00 [facility] [place] Temperature Oral (F) 2015-10-28 06:00:00 97.6 F [facility] [place] Systolic (mm Hg) 2015-10-28 06:00:00 Edinson rial [place] Diastolic (mm Hg) 2015-10-28 06:00:00 Mem orial [place] Height 2015-10-27 02:52:00 152.4 cm [facility] [place] Height 2015-10-22 18:39:00 165.1 cm [facility] [place] Weight 2015-10-22 18:39:00 [facility] [place] BMI Calculated 2015-10-22 18:39:00 Memori al [place] Procedures Procedure Date / Time Performed Performing Clinician Rose Marie boogie Appendectomy [facility] [place] Arthroscopy of knee [facility] Her pearson Elbow maneuver [facility] [place] Hysterectomy [facility] [place] Repair of shoulder [facility] Herm lori Encounters Start End Encounter Admission Attending Care Care Encounter Source Date/Time Date/Time Type Type Clinicians Facility Department ID 2021-05-06 2021-05-06 [facility] [id number] Memoria 14:00:00 14:00:00 19 l [place] 2021 2021 Transition Tiffanie Snyder [id number] 00:00:00 00:00:00 of Care Dakotah Dwyer [id number] [place] [id number] 2021-04-15 2021-04-17 [facility] MissyAvani Altagracia [id number] 15:40:00 20:05:00 Encounter Sree Ramos [id number] [facility] [id number] 2021-04-04 2021-04-04 Ambulatory nullFlavo MNA [id number] Memoria 19:00:00 19:00:00 Pre-Reg r Neurology 17 l Kelin Andrade 2021-04-04 2021-04-04 Outpatient MHIE MHIE [id number] Memoria 14:00:00 14:00:00 17 l Raymond 2021-04-04 2021-04-04 Outpatient IRVIN ShresthaSCHER MISCHER [id number] 14:00:00 14:00:00 [place] 17 Ramsey 2021-03-29 2021-03-30 Outpatient nullFlavo MNA [id number] Memoria 18:00:00 04:59:59 r Neurology 18 l Kelin Andrade 2021-03-29 2021-03-29 Outpatient IRVIN ShresthaSCHER MHMISCHER [id number] 13:00:00 23:59:59 [place] 18 Ramsey 2021-03-29 2021-03-29 Outpatient MHIE MHIE [id number] Memoria 13:00:00 13:00:00 18 l Raymond 2021-02-20 2021-02-20 Ambulatory nullFlavo MNA [id number] Memoria 19:15:00 19:15:00 Pre-Reg r Neurology 16 l Eaton Raymond 2021-02-20 2021-02-20 Outpatient MHIE MHIE [id number] Memoria 14:15:00 14:15:00 16 l Raymond 2021-02-20 2021-02-20 Outpatient Henrietta, MHMISCHER MHMISCHER [id number] 14:15:00 14:15:00 [place] 16 Ramsey 2021-01-23 2021-01-23 Ambulatory nullFlavo MNA [id number] Memoria 19:00:00 19:00:00 Pre-Reg r Neurology 13 l Kelin Andrade 2021-01-23 2021-01-23 Outpatient MHIE MHIE [id number] Memoria 14:00:00 14:00:00 13 nicholas Andrade 2021-01-23 2021-01-23 Outpatient Henrietta, MHMISCHER MHMISCHER [id number] 14:00:00 14:00:00 [place] 13 Ramsey 2020-12-06 2020-12-06 Ambulatory nullFlavo MNA [id number] Memoria 20:30:00 20:30:00 Pre-Reg r Neurology 15 l Kelin Andrade 2020-12-06 2020-12-06 Outpatient MHIE MHIE [id number] Memoria 15:30:00 15:30:00 15 nicholas Andrade 2020-12-06 2020-12-06 Outpatient Henrietta, MHMISCHER MHMISCHER [id number] 15:30:00 15:30:00 [place] 15 Ramsey 2020-11-15 2020-11-16 Outpatient nullFlavo MNA [id number] Memoria 21:15:00 05:59:59 r Neurology 14 l Kelin Andrade 2020-11-15 2020-11-15 Outpatient Henrietta, MHMISCHER MHMISCHER [id number] 15:15:00 23:59:59 [place] 14 Ramsey 2020-11-15 2020-11-15 Outpatient MHIE MHIE [id number] Memoria 15:15:00 15:15:00 14 nicholas Andrade 2020-10-22 2020-10-24 Outside nullFlavo MNA [id number] Memoria 21:23:00 05:59:59 Medical r Neurology 03 l Records Kelin Wallann 2020-10-22 2020-10-23 Outpatient MHMISCHER MHMISCHER [id number] 15:23:00 23:59:59 03 2020-07-26 2020-07-27 Outpatient nullFlavo MNA [id number] Memoria 20:00:00 05:59:59 r Neurology 12 l Kelin Andrade 2020-07-26 2020-07-26 Outpatient SUZIE ShresthaMISCHER MHMISCHER [id number] 14:00:00 23:59:59 [place] 12 Ramsey 2020-07-26 2020-07-26 Outpatient MHIE MHIE [id number] Memoria 14:00:00 14:00:00 12 nicholas Andrade 2020-04-05 2020-04-06 Outpatient nullFlavo MNA [id number] Memoria 19:00:00 04:59:59 r Neurology 11 l Kelin Andrade 2020-04-05 2020-04-05 Outpatient SUZIE ShresthaMISCHER MHMISCHER [id number] 14:00:00 23:59:59 [place] 11 Ramsey 2020-04-05 2020-04-05 Ambulatory nullFlavo MNA [id number] Memoria 19:00:00 19:00:00 Pre-Reg r Neurology 10 l Kelin [place] 2020-04-05 2020-04-05 Outpatient MHIE MHIE [id number] Memoria 14:00:00 14:00:00 10 nicholas [place] 2020-04-05 2020-04-05 Outpatient MHIE MHIE [id number] Memoria 14:00:00 14:00:00 11 nicholas Raymond 2020-04-05 2020-04-05 Outpatient IRVIN ShresthaSCHER MISCHER [id number] 14:00:00 14:00:00 [place] 10 Ramsey 2020-03-01 2020-03-01 Emergency [facility] [id number] 16:34:28 19:52:00 Keren Puckett [id number] [place] [id number] [place] [id number] 2019-10-06 2019-10-07 Outpatient nullFlavo MNA [id number] Memoria 19:15:00 05:59:59 r Neurology 09 l Kelin Andrade 2019-10-06 2019-10-06 Outpatient SUZIE ShresthaMISCHER MHMISCHER [id number] 13:15:00 23:59:59 [place] 09 Ramsey 2019-10-06 2019-10-06 Outpatient MHIE MHIE [id number] Memoria 13:15:00 13:15:00 09 nicholas [place] 2019-07-29 2019-07-29 Outpatient MHIE MHIE [id number] Memoria 13:00:00 13:00:00 08 nicholas Raymond 2019-07-01 2019-07-01 Ambulatory nullFlavo MNA [id number] Memoria 21:00:00 21:00:00 Pre-Reg r Neurology 08 nicholas Neville Raymond 2019-07-01 2019-07-01 Outpatient [place], MHMISCHER MISCHER [id number] 16:00:00 16:00:00 [place] 08 Ramsey 2019-03-31 2019-03-31 Ambulatory nullFlavo MNA [id number] Memoria 20:15:00 20:15:00 Pre-Reg r Neurology 03 nicholas Neville Raymond 2019-03-31 2019-03-31 Outpatient MHIE MHIE [id number] Memoria 15:15:00 15:15:00 03 nicholas Raymond 2019-03-31 2019-03-31 Outpatient [place] MHMISCHER MISCHER [id number] 15:15:00 15:15:00 [place] 03 Ramsey 2019-03-25 2019-03-26 Outpatient nullFlavo MNA [id number] Memoria 18:00:00 04:59:59 r Neurology 07 nicholas Neville [place] 2019-03-25 2019-03-25 Outpatient [place] MISCHER MISCHER [id number] 13:00:00 23:59:59 [place] 07 Ramsey 2019-03-25 2019-03-25 Outpatient MHIE MHIE [id number] Memoria 13:00:00 13:00:00 07 nicholas [place] 2019-02-09 2019-02-09 Ambulatory nullFlavo MNA [id number] Memoria 19:45:00 19:45:00 Pre-Reg r Neurology 05 nicholas Eaton Raymond 2019-02-09 2019-02-09 Outpatient MHIE MHIE [id number] Memoria 14:45:00 14:45:00 05 nicholas Raymond 2019-02-09 2019-02-09 Outpatient [place] MHMISCHER MHMISCHER [id number] 14:45:00 14:45:00 Tr[place] 05 Ramsey 2019-01-21 2019-01-22 Outpatient nullFlavo MNA [id number] Memoria 18:15:00 04:59:59 r Neurology 06 nicholas Andrade 2019-01-21 2019-01-21 Outpatient [place], MHMISCHER MISCHER [id number] 13:15:00 23:59:59 [place] Stephanie Mustafa 2019-01-21 2019-01-21 Outpatient MHIE MHIE [id number] Memoria 13:15:00 13:15:00 06 nicholas Andrade 2018-12-30 2018-12-31 Outpatient nullFlavo MNA [id number] Memoria 14:00:00 04:59:59 r Neurology 04 nihcolas Andrade 2018-12-30 2018-12-30 [facility] [id number] 09:00:00 23:59:59 [place] Arturo Mustafa 2018-12-30 2018-12-30 Outpatient MHIE MHIE [id number] Memoria 09:00:00 09:00:00 04 nicholas Andrade 2018-10-19 2018-10-20 Outpatient nullFlavo MNA [id number] Memoria 22:00:00 05:59:59 r Neurology 02 nicholas Andrade 2018-10-19 2018-10-19 [facility] [place] [id number] 16:00:00 23:59:59 [place] Sona Mustafa 2018-10-19 2018-10-19 Outpatient MHIE MHIE [id number] Memoria 16:00:00 16:00:00 02 nicholas Andrade 2018-09-17 2018-09-19 Phone nullFlavo MNA [id number] Memoria 21:30:00 05:59:59 Message r Neurology 01 nicholas Eaton Raymond 2018-09-17 2018-09-18 Outpatient MHMISCHER MHMISCHER [id number] 15:30:00 23:59:59 2018-08-20 2018-08-22 Phone nullFlavo MNA [id number] Memoria 19:01:00 05:59:59 Message r Neurology 00 nicholas Eaton Raymond 2018-08-20 2018-08-21 Outpatient MHMISCHER MHMISCHER [id number] 13:01:00 23:59:59 00 2018-02-04 2018-02-06 Inpatient nullFlavo [facility] [id number] [facility] 08:21:00 21:15:00 r Raymond 43 l [facility] 2018-02-04 2018-02-06 Outpatient [place] [facility] [id number] 03:21:00 16:15:00 Carlos Varma 43 2015-10-22 2015-10-28 Inpatient nullFlavo [facility] [id number] Memoria 18:39:00 17:47:00 r Raymond 39 l [facility] 2015-10-22 2015-10-28 [id number] 12:39:00 11:47:00 Emir Rosa Results Test Description Test Time Test Comments Results Result Comments Source HEMATOLOGY 2018-02-06 25.5 [facility] 11:29:00 HEMATOLOGY 2018-02-06 8.6 [facility] 11:29:00 CHEM PANEL 2018-02-05 12.4 [facility] 11:44:00 ELECTROLYTES 2018-02-05 13.9 [facility] 11:44:00 ELECTROLYTES 2018-02-05 82 [facility] 11:44:00 ELECTROLYTES 2018-02-05 110 [facility] 11:44:00 ELECTROLYTES 2018-02-05 24 [facility] 11:44:00 ELECTROLYTES 2018-02-05 144 [facility] 11:44:00 ELECTROLYTES 2018-02-05 3.9 [facility] 11:44:00 ELECTROLYTES 2018-02-05 20 [facility] 11:44:00 ELECTROLYTES 2018-02-05 0.68 [facility] 11:44:00 ELECTROLYTES 2018-02-05 151 [facility] 11:44:00 ELECTROLYTES 2018-02-05 7.9 [facility]son 11:44:00 HEMATOLOGY 2018-02-05 93.8 [facility] nn 11:44:00 HEMATOLOGY 2018-02-05 11:44:00 Test Item Value Reference Range Interpretation Comme nts MCH (test code = MCH) 31.7 pg 27.0-31.0 [facility] QncvzqeUUZMVSXRJX8885-57-28 11:44:0026.2[facility] HermannHEMATOLOGY 2018-02-05 11:44:42208Xfhagtfe ObtorzxIEXCASVGPO2217-40-60 11:44:0033.8[facility] WaqqqmbGLKKSWYKOO2102-62-44 11:44:006.8[facility] HppbwwkPCHVBYIQYK3717-24-65 11:44:0012.7[facility] NsndyaxZKKAHGUUGG3905-24-52 11:44:008.9[facility] WFOQYDADHO5387-07-05 11:44:007.6[facility] RdnmwexOPHTOFFUEX9043-75-97 11:44:00 2.79[facility] XymlvnkOMXSBCZAIZ7216-50-31 11:44:001.2[facility] HermannHEMATOLOGY 2018-02-05 11:44:001.2[facility] ElqqdpuUKCVRMNHTO1741-09-07 11:44:0016.0[facility] RehyzfvNBLWRGCPQU6748-92-88 11:44:0015.8[facility] YqvcramAKFYKULLCF5548-22-36 11:44:0067.9[facility] GqenexqRNPVHOUDQO4028-86-42 11:44:005.1[facility] SPOKSZXNBN5783-04-34 11:44:000.3[facility] HermannPARATHYROID KTYORES9705-41-85 11:44:90895.9[facility]annBLOOD BANK DDSHJUV3027-94-37 09:21:00Negative (02/04/18 4:21 AM)[facility] HermannCHEM FGUFB0509-14-29 09:06:590.9[facility] QeawsewCAQALBPYBOTE3117-23-61 09:06:5911.9[facility] VnddkcuZAHDKBUWCBIX6161-90-72 09:06:5983[facility] BryoporCQGEPBOQPADC4182-08-45 09:06:598.1[facility] GNQPTQNSMYSJ5733-65-85 09:06:5922[facility] RaaoplxZLXKAAMMDKIU7926-02-49 09:06:59 140[facility] TxdjhflQLVACRFVQTOB5679-64-00 09:06:590.67[facility] NCPZMNBZPBBR8841-96-21 09:06:5922[facility] OschpjbBBPDYELSMZDO1454-43-20 09:06:59 135[facility] JvcnmunMSVRJEYLANJO1086-54-92 09:06:70666Fuihvwmh [place] SPSIPSHLNFWB5108-74-03 09:06:593.9[facility] JjxsrcwLJFNTIEFBN6065-63-07 09:06:59 Test Item Value Reference Range Interpretation Comments PTT (test code = PTT) 24.7 s 22.9-35.8 [facility] LepvtyrXVJDKUUFKS2180-88-80 09:06:59 Test Item Value Reference Range Interpretation Comments INR (test code = INR) 1.01 1 0.85-1.17 [facility] IojubbqIIOWWGKZFJ7353-51-16 09:06:59 Test Item Value Reference Range Interpretation Comments PT (test code = PT) 13.3 s 12.0-14.7 [facility] NocyyipYWFTTVBFYJ5097-13-00 09:06:85152Fxagfmas HermannHEMATOLOGY 2018-02-04 09:06:597.1[facility] HmsdritSFDZPKYALY4098-85-54 09:06:5932.2[facility] NosxkcxNRTCWEUYLA8406-77-10 09:06:593.42[facility] WgvxwpxKGRPGDVBBD0373-60-16 09:06:5910.8[facility] OrwiukxKDUBUIBFSS9129-09-73 09:06:598.5[facility] HGYILPLJCS2157-37-24 09:06:5933.5[facility] JutubayXHETYULJRA0254-40-86 09:06:59 13.0[facility] ToofmjzHKUUOSDMUK4203-99-59 09:06:5994.1[facility] HermannHEMATOLOGY 2018-02-04 09:06:59 Test Item Value Reference Range Interpretation Comments MCH (test code = MCH) 31.5 pg 27.0-31.0 [facility] DxwtmdvZOPGMVKTDI8945-16-08 09:06:592.3[facility] HermannHEMATOLOGY 2018-02-04 09:06:591.7[facility] OqwyeaaWHZTSHERAV2573-05-11 09:06:595.5[facility] UlmwzjxAMOACHKMVI5876-62-43 09:06:590.8[facility] FowmfmeRYRXWZDXQE7110-68-72 09:06:590.1[facility] OfbzjwlIIZGGHMGZQ6417-54-37 09:06:590.2[facility] EFPMBDWSRL7196-81-19 09:06:591.1[facility] JyvgbcqSCQEYWXSEW4664-20-30 09:06:59 64.6[facility] CxkjqciHRMNGUYRBW7717-38-97 09:06:5919.7[facility] HermannHEMATOLOGY 2018-02-04 09:06:5912.6[facility] HjcxxcqPZVFQSBVVKBH4032-46-45 11:14:0011.7 [facility] UxlwfdrQVZONXFLCXLB6288-51-91 11:14:0099[facility] HermannELECTROLYTES 2015-10-28 11:14:0029[facility] UkmlnnlGQBERBNUXLBQ4306-22-79 11:14:09948Mefoecep AnfhdweHNBCDMJWCIFW2663-78-29 11:14:003.7[facility] EanaaniVAFFUNOUNNBW9402-19-80 11:14:79333Fghtuajc IpejlzmFICJSAGZJUFN8418-55-35 11:14:000.40[facility] WNTPJUQUCHDZ9361-15-07 11:14:008.1[facility] PiykmloDTNYMWKZGFNV4622-60-34 11:14:008[facility] OllxwuvCOEDEYTMCQNM8564-54-65 11:14:0094[facility] XYVAWVFVRF4488-04-68 11:14:0016.6[facility] JoydhvsLCSHUTDMNR1431-72-85 11:14:00 7.2[facility] YghpiwvPQERAJYVWE5273-64-60 11:14:32020Naicfswk HermannHEMATOLOGY 2015-10-28 11:14:00 Test Item Value Reference Range Interpretation Comments MCH (test code = MCH) 29.8 pg 27.0-31.0 [facility] ThqlbepZBQDPDBYXQ2602-19-84 11:14:0032.9[facility] HermannHEMATOLOGY 2015-10-28 11:14:0090.5[facility] XqldmauCJYXGVRMBK1987-92-01 11:14:003.41[facility] GoyjhdpNCNSEPLWPQ3206-96-61 11:14:008.1[facility] ZyyuaomMUJOZKSGAU9490-97-77 11:14:0030.9[facility] AcdhkhdPQBLBAQIKO8128-61-19 11:14:0010.2[facility] PYMPELMLCR0953-56-20 11:14:001.1[facility] OkubpabOLJCYBSOLK5024-07-68 11:14:005.4 [facility] IucvwksVMWCJSWCBV7541-29-68 11:14:000.1[facility] HermannHEMATOLOGY 2015-10-28 11:14:001.2[facility] XsztxwwTETZXMFYLI2271-69-17 11:14:000.8[facility] JvalatdKZGKLIARDN9190-96-85 11:14:000.6[facility] MotftlnJOHYYFZMOT6868-00-42 11:14:0066.7[facility] PqaiinuPJYRREDWXK6116-28-60 11:14:0015.1[facility] VOMIFSQRFP1027-04-71 11:14:009.7[facility] WgrlymaQYLTGIPHUR1442-41-41 11:14:007.4 [facility] QwotofxUZFLMTEFSR9449-80-39 02:47:0030.2[facility] HermannHEMATOLOGY 2015-10-28 02:47:0010.1[facility] QnvypjgDQYAVZGZNQ0577-04-33 18:09:009.4[facility] CtdjizzCNTCMDUTGI1063-82-31 18:09:0027.9[facility] BwmrvrqZOLDPOIOUW6694-01-58 10:49:00 Test Item Value Reference Range Interpretation Comments PT (test code = PT) 14.3 s 12.0-14.7 [facility] OmrumnqDMMGSUQFBO6985-22-05 10:49:00 Test Item Value Reference Range Interpretation Comments PTT (test code = PTT) 34.3 s 22.9-35.8 [facility] YhoqktfBLHWBUSFNU8922-86-25 10:49:001.08[facility] HermannHEMATOLOGY 2015-10-27 10:49:004.9[facility] VssdqcfFYQLLISONQ1824-40-93 10:49:008.3[facility] UvverkeKXHHVDDLHW3444-84-67 10:49:000.1[facility] OxrobnvGZXMKJSDFU4081-60-07 10:49:000.9[facility] VqvfdmaZZDIJHEYYX8097-45-52 10:49:000.8[facility] BGULBAZJQT8832-45-47 10:49:000.7[facility] KposphgBYDUENAYEX0700-44-28 10:49:007.0 [facility] XxmrmmnKVVYAMPYUO8124-16-54 10:49:009.9[facility] HermannHEMATOLOGY 2015-10-27 10:49:0076.2[facility] HxzybzxHBOCFZAZBK3936-23-51 10:49:000.5[facility] FwbqtliTGEXXWVAIW6367-12-88 10:49:009.2[facility] NwlbzhgCCBXTFYPFP4484-05-07 10:49:007.5[facility] MmwkqlcDMCZJCRPJI9118-47-57 10:49:0090.5[facility] HULYCZWPIZ5137-81-11 10:49:00 Test Item Value Reference Range Interpretation Comments MCH (test code = MCH) 30.0 pg 27.0-31.0 [facility] LqfeqvmFYNDYVSETE9402-85-90 10:49:0033.1[facility] HermannHEMATOLOGY 2015-10-27 10:49:002.88[facility] HjxqihhRWZDNNVMWI3762-26-21 10:49:51284Fcjzlxiz TijvhrbDVABECPRWA0295-36-96 10:49:0016.9[facility] HermannURINE AND STOOL 2015-10-26 23:46:00<=1.0[facility]annUR[facility] AND EMCBI0119-01-00 23:46:00 Performed *NA*(10/26/15 5:46 PM)[facility]UR[facility] PYPAC2726-21-88 23:46:00<1[facility]annUR[facility] AND IEHOX0302-62-56 23:46:00Negative *NA*(10/26/15 5:46 PM)[facility] CYOVC9615-88-84 23:46:001[facility]annUR[facility] AND YAQJF8857-70-52 23:46:00Trace *ABN*(10/26/15 5:46 PM)[facility] ZXCIR8248-55-86 23:46:00Negative (10/26/15 5:46 PM)[facility] CYIGY3462-78-39 23:46:00Negative (10/26/15 5:46 PM)[facility]ann[facility] AND AXRMH3088-51-18 23:46:00Clear (10/26/15 5:46 PM)[facility] URINE AND OFZAE5144-84-53 23:46:001.006[facility]annURINE AND KHUUO3954-21-30 23:46:006.0[facility]annUR[facility] AND ZXWAB3364-06-10 23:46:00Light Yellow *NA*(10/26/15 5:46 PM)[facility]annBLOOD BANK OKSAIQP0042-79-51 10:09:00 Negative (10/26/15 4:09 AM)[facility] HermannCHEM HJIWJ1849-53-49 10:09:0099 [facility] HermannCHEM QBWRM2977-52-86 10:09:007.4[facility] HermannCHEM PANEL 2015-10-26 10:09:0030[facility] HermannCHEM AOOII2555-30-11 10:09:79685Wfjdooul HermannCHEM DCCFT1503-21-60 10:09:01636Ctqdqsgf HermannCHEM EIKCC7452-20-66 10:09:003.6[facility] HermannCHEM CQGWH9704-23-34 10:09:0013[facility] HermannCHEM AQVNA4927-48-62 10:09:000.40[facility] HermannCHEM CQHCO3786-96-15 10:09:82919 [facility] HermannCHEM QJSOO2964-43-12 10:09:0011.6[facility] HermannCHEM PANEL 2015-10-26 10:09:002.4[facility] HermannCHEM HYXQE6661-81-69 10:09:001.9[facility] QxuqhwfRWKEJKWLTF1572-12-27 10:09:000.4[facility] CtmllecTLCMJQBUMI9237-38-82 10:09:009.0[facility] YihrvikSLTDBMDEWR4964-42-37 10:09:007.1[facility] KNBIMLQWOD6068-96-42 10:09:009.6[facility] IpesyjcBOIVKECDNW0027-35-83 10:09:001.1 [facility] BsuskioAHTHVTYRNS1003-51-95 10:09:003.4[facility] HermannHEMATOLOGY 2015-10-26 10:09:000.4[facility] XjpcdeiBPSAHQTZVS5713-61-16 10:09:000.0[facility] SqcvzveNTPQDAQTEA1886-82-10 10:09:000.8[facility] EtomhxtUKRQHPJSNH8320-96-91 10:09:0079.5[facility] XehnjdsJHQUBERSEM9610-65-98 10:09:00 Test Item Value Reference Range Interpretation Comments MCH (test code = MCH) 29.9 pg 27.0-31.0 [facility] JvwkbiiVODKNRGABE6260-17-05 10:09:002.93[facility] HermannHEMATOLOGY 2015-10-26 10:09:007.4[facility] RwloglbSYGYDXAMIN5585-83-60 10:09:0017.7[facility] IbxuqhjRPQJXEGQFT7009-06-45 10:09:0032.8[facility] FkylrfbYDEGOBMICX0757-57-94 10:09:69064Tqelfxft LeadvonACBLPSTRBC3496-73-34 10:09:0091.2[facility] WMJFCSKPOZ9683-20-04 10:09:0011.3[facility] HermannPARATHYROID MPTTZLI5959-90-56 10:09:001.08[facility] HermannPARATHYROID GGUMNJR6226-73-02 10:09:001.09[facility] HermannBLOOD BANK NGNCIOC4454-15-09 22:16:00Product available (10/25/15 4:16 PM) [facility] ZnfnqbwFKZBHGCXRM5149-02-23 16:21:00Moderate *ABN*(10/25/15 10:21 AM) [facility] DsatezjBAMEDKTVHF5548-39-42 16:21:00Normal (10/25/15 10:21 AM)[facility] EjgdyqeDJRFKPDCBD7956-02-61 16:21:00Moderate *ABN*(10/25/15 10:21 AM)[facility] EzlzuhmXSUKMHKBJW3611-53-99 16:21:00 Test Item Value Reference Range Interpretation Comments PTT (test code = PTT) 33.0 s 22.9-35.8 [facility] MdbdsqxXHKVSITMHU1899-96-62 16:21:001.18[facility] HermannHEMATOLOGY 2015-10-25 16:21:00 Test Item Value Reference Range Interpretation Comments PT (test code = PT) 15.3 s 12.0-14.7 [facility] HermannBLOOD BANK GUIRYPT4933-03-35 08:39:00Product available (10/25/15 2:39 AM)[facility] HermannCHEM GIBGG8927-11-18 07:39:001.7[facility] HermannCHEM BVMIN8143-12-86 07:39:0099[facility] HermannCHEM KDRYD2915-92-13 07:39:007.4 [facility] HermannCHEM EEODA5185-25-24 07:39:0012.4[facility] HermannCHEM PANEL 2015-10-25 07:39:38723Fadwemjf HermannCHEM SUNYL7006-98-61 07:39:0016[facility] HermannCHEM XJSAM3952-67-36 07:39:000.40[facility] HermannCHEM KSJYJ8936-48-25 07:39:32846Dandbxsx HermannCHEM FLXNX2609-18-80 07:39:003.4[facility] HermannCHEM USLLO7439-26-20 07:39:88767Smwhuiui HermannCHEM GQYLS3868-45-55 07:39:0027 [facility] HermannCHEM WVFRI2247-56-29 07:39:003.1[facility] HermannHEMATOLOGY 2015-10-25 07:39:00Moderate *ABN*(10/25/15 1:39 AM)[facility]annHEMATOLOGY 2015-10-25 07:39:00Moderate *ABN*(10/25/15 1:39 AM)[facility]annHEMATOLOGY 2015-10-25 07:39:00Normal (10/25/15 1:39 AM)[facility] HermannPARATHYROID PROFILE 2015-10-25 07:39:001.08[facility] HermannPARATHYROID DLNMAIK5816-21-05 07:39:00 1.05[facility] HermannCHEM LXWOC9573-17-38 14:17:001.0[facility] HermannCHEM PANEL 2015-10-24 10:16:003.7[facility] HermannCHEM VUUEM2488-34-80 10:16:001.7[facility] RerzpwnLCXMFFYSJB1194-38-78 10:16:001.18[facility] AbvshyjMVWDDGVQXR9410-30-48 10:16:00 Test Item Value Reference Range Interpretation Comments PT (test code = PT) 15.3 s 12.0-14.7 [facility] MhctqxbXPITHVBBJZ3369-39-83 10:16:00 Test Item Value Reference Range Interpretation Comments PTT (test code = PTT) 27.8 s 22.9-35.8 [facility] HermannPARATHYROID YRGDHUW6178-42-56 10:16:001.08[facility] PARATHYROID BKIYGVL3737-49-37 10:16:001.08[facility] HermannBLOOD BANK RESULTS 2015-10-23 04:44:00Product available (10/22/15 10:44 PM)[employer] [facility] PJMFWJW8107-58-10 03:04:00Negative (10/22/15 9:04 PM)[facility]annUR[facility] AND QSVDR9786-95-21 20:58:00<=1.0[facility]annUR[facility] AND URGDI3231-06-04 20:58:001[facility]annUR[facility] AND YWIYZ5192-11-65 20:58:00Negative (10/22/15 2:58 PM)[facility] BESGR9577-98-09 20:58:00Negative (10/22/15 2:58 PM) [facility] KIRTK3987-11-06 20:58:00Negative *NA*(10/22/15 2:58 PM) [facility] POGIO9056-88-52 20:58:00Light Yellow *NA*(10/22/15 2:58 PM)[facility]annUR[facility] AND FSILV2314-56-78 20:58:001.009[facility]annUR[facility] AND BSHHA4449-69-59 20:58:00Clear (10/22/15 2:58 PM)[facility]annUR[facility] AND EMCAW9920-21-04 20:58:007.0[facility]annUR[facility] AND FYFWD0050-39-63 20:58:00 Negative (10/22/15 2:58 PM)[facility] HermannBACTERIAL - NKVIZMSM5933-38-04 19:20:00 Negative (10/22/15 1:20 PM)[facility] HermannCHEM XXQEB7623-97-33 19:20:0032.0 [facility] HermannCHEM DFSKT3108-84-73 19:20:65426Uvnhmppw HermannCHEM PANEL 2015-10-22 19:20:000.9[facility] HermannCHEM NYXQK6149-53-35 19:20:002.2[facility] HermannCHEM ZKOTX8734-43-85 19:20:001.0[facility] HermannCHEM QVEDA1693-21-34 19:20:0016[facility] HermannCHEM CVJCV6097-81-74 19:20:000.4[facility] HermannCHEM FPUKI2793-95-12 19:20:0042[facility] HermannCHEM NDIRC7258-28-79 19:20:000.1 [facility] HermannCHEM NUWQZ3808-92-89 19:20:004.3[facility] HermannCHEM PANEL 2015-10-22 19:20:002.1[facility] HermannCHEM GGAAR1905-56-32 19:20:0019[facility] HermannCHEM HAQIF0521-82-48 19:20:000.3[facility] NhjqqzeQESKPXPESBEWA4733-92-93 19:20:003.4[facility]
[2021-04-18 21:06] LABS: Absolute Lymphocytes (CBC) 1.1 K/uL (0.7-4.9); Basophils % 0.6 % (0-1.3); Hematocrit 37.6 % (36.0-45.0); Lymphocytes % 23.9 % (15.3-44.8); MPV 8.1 fL (7.6-11.3); RBC Red Blood Cell Count 4.06 M/uL (3.86-4.86)
[2021-04-18 21:11] LABS: Protime INR 1.3
[2021-04-18] MEDS ORDERED: ONDANSETRON 4 MG/2 ML VIAL ONE (21:21)
[2021-04-18] MEDS ORDERED: MORPHINE 2 MG/ML SYR ONE (21:21)
[2021-04-18 21:28] LABS: ALT/SGPT 18 U/L (12-78); AST/SGOT 22 U/L (15-37); Albumin 3.5 g/dL (3.4-5.0); Alkaline Phosphatase 84 U/L (45-117); BUN Blood Urea Nitrogen 25 mg/dL (7-18); Bicarbonate 25 mmol/L (21-32); Bilirubin Direct 0.1 mg/dL (0-0.2); Bilirubin Total 0.4 mg/dL (0.2-1.0); Glucose Level 127 mg/dL (74-106); NT PRO-BNP 5539 pg/mL (<450); Potassium 3.5 mmol/L (3.5-5.1); Protein, Total 7.5 g/dL (6.4-8.2); Sodium Level 139 mmol/L (136-145); Troponin (Emerg Dept Use Only) 0.14 ng/mL (0.0-0.045)
--- NOTE | 2021-04-18 21:44 | RAD REPORT ---
EXAM DESCRIPTION: CT - Head Brain Wo Cont - 04/18/2021 9:37 pm CLINICAL HISTORY: generalized weakness COMPARISON: <Comparisons> TECHNIQUE: Axial 5 mm thick images of the head were obtained without IV contrast. All CT scans are performed using dose optimization technique as appropriate and may include automated exposure control or mA/KV adjustment according to patient size. FINDINGS: No intracranial hemorrhage, mass, edema or shift of mid-line structures. No acute cortical based infarction. No cortical edema or sulcal effacement. Areas of diminished attenuation in each ex ternal capsule and insular cortex region matches the November study. Atrophy and chronic ischemic change s are present similar to comparison. Ventricles are in proportion to volume loss. Dense arterial tree calcifications are present. Mastoid air cells and visualized portions of the paranasal sinuses are clear. No acute bony findings. IMPRESSION: Negative non-contrast CT head examination for acute finding. 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
[2021-04-18] MEDS ORDERED: NA CHLORIDE 0.9% 500 ML ONE (21:57)
[2021-04-18] MEDS ORDERED: METHYLPREDNISOLONE 125 MG INJ ONE ×2 (21:57→22:22)
--- NOTE | 2021-04-18 22:02 | EDPHYS ---
Physician Documentation [facility] Name: Rosina Odonnell Age: 86 yrs Sex: Female : 1935 Arrival Date: 04/18/2021 Time: 19:53 Bed 30 Private MD: ED Physician Rashawn Estrella HPI: 04/18 20:10 This 86 yrs old Female presents to ER via EMS with complaints of General mh7 Weakness. 20:10 The patient's problem is reported as weakness, that is generalized. mh7 20:10 Onset: The symptoms/episode began/occurred yesterday. mh7 20:10 Duration: The episode is continuous. Context: the episode(s) was witnessed, by no one, mh7 symptoms became apparent at an unknown time, occurred at home, occurred while the patient was lying down, Possible contributing factors include: Recently diagnosed with COVID pneumonia. The symptoms are alleviated by nothing. The symptoms are aggravated by nothing. Associated signs and symptoms: Pertinent positives: cough, fatigue, decreased appetite, Pertinent negatives: abdominal pain, agitation, ataxia, blurred vision, chest pain, combativeness, confusion, diaphoresis, diarrhea, dizziness, headache, lightheadedness, nausea, numbness, palpitations, seizure, shortness of breath, tingling, vertigo, vomiting. Severity of symptoms: At their worst the symptoms were moderate today, in the emergency department the symptoms are unchanged. Recently d/c from OSH after treatment for COVID pneumonia. Historical: - Allergies: 20:02 Augmentin; iw - Home Meds: 20:02 alprazolam 0.25 mg Oral tab nightly [Active]; carvedilol 6.25 mg oral tab 1 tab 2 times iw per day [Active]; levetiracetam 750 mg oral tab 1 tab 2 times per day [Active]; levothyroxine 112 mcg tab 1 tab once daily [Active]; Butalbital Compound 50-325-40 mg Oral cap twice a day [Active]; duloxetine 90 mg oral once daily [Active]; Nexium 40 mg Oral cpDR 1 cap 2 times per day [Active]; fluticasone propionate inhalation 1 puff 2 times per day [Active]; Hydrocodone-Acetaminophen Oral 1 tab every 6 hours [Active]; hyoscyamine sulfate 0.125 mg SL subl as needed [Active]; Meclizine Oral as needed [Active]; Methocarbamol 1000 mg Oral nightly [Active]; Nasonex 50 mcg/actuation Nasal spry 2 sprays once daily [Active]; Carafate 1 gram Oral tab as needed [Active]; trazodone 150 mg Oral Tb24 nightly [Active]; - PMHx: 20:02 Hypertension; Multiple Sclerosis; iw - Social history:: Smoking status: unknown. ROS: 20:10 Constitutional: Negative for fever, chills, and weight loss, Eyes: Negative for injury, mh7 pain, redness, and discharge, ENT: Negative for injury, pain, and discharge, Neck: Negative for injury, pain, and swelling, Cardiovascular: Negative for chest pain, palpitations, and edema. 20:10 Abdomen/GI: Negative for abdominal pain, nausea, vomiting, diarrhea, and constipation, Back: Negative for injury and pain, : Negative for injury, bleeding, discharge, and swelling, MS/Extremity: Negative for injury and deformity, Skin: Negative for injury, rash, and discoloration, Psych: Negative for depression, anxiety, suicide ideation, homicidal ideation, and hallucinations, Allergy/Immunology: Negative for hives, rash, and allergies, Endocrine: Negative for neck swelling, polydipsia, polyuria, polyphagia, and marked weight changes, Hematologic/Lymphatic: Negative for swollen nodes, abnormal bleeding, and unusual bruising. 20:10 Respiratory: Positive for cough. Exam: 20:10 Head/Face: Normocephalic, atraumatic. Eyes: Pupils equal round and reactive to light, mh7 extra-ocular motions intact. Lids and lashes normal. Conjunctiva and sclera are non-icteric and not injected. Cornea within normal limits. Periorbital areas with no swelling, redness, or edema. 20:10 Neck: Trachea midline, no thyromegaly or masses palpated, and no cervical lymphadenopathy. Supple, full range of motion without nuchal rigidity, or vertebral point tenderness. No Meningismus. Chest/axilla: Normal chest wall appearance and motion. Nontender with no deformity. No lesions are appreciated. Cardiovascular: Regular rate and rhythm with a normal S1 and S2. No gallops, murmurs, or rubs. Normal PMI, no JVD. No pulse deficits. Respiratory: Lungs have equal breath sounds bilaterally, clear to auscultation and percussion. No rales, rhonchi or wheezes noted. No increased work of breathing, no retractions or nasal flaring. Abdomen/GI: Soft, non-tender, with normal bowel sounds. No distension or tympany. No guarding or rebound. No evidence of tenderness throughout. Back: No spinal tenderness. No costovertebral tenderness. Full range of motion. Skin: Warm, dry with normal turgor. Normal color with no rashes, no lesions, and no evidence of cellulitis. MS/ Extremity: Pulses equal, no cyanosis. Neurovascular intact. Full, normal range of motion. Neuro: Awake and alert, GCS 15, oriented to person, place, time, and situation. Cranial nerves II-XII grossly intact. Motor strength 5/5 in all extremities. Sensory grossly intact. Cerebellar exam normal. Normal gait. Psych: Awake, alert, with orientation to person, place and time. Behavior, mood, and affect are within normal limits. 20:10 Constitutional: The patient appears in no acute distress, alert, awake, frail. 20:10 ENT: Mouth: Oral mucosa: dry. 21:56 Radiologist reports: No acute findings [facility] Vital Signs: 20:09 BP 155 / 72; Pulse 55; Resp 16; Temp 97.7; Pulse Ox 96% on R/A; iw 21:54 Weight 48.99 kg; bb 23:00 BP 170 / 90; Pulse 68; Resp 16; Pulse Ox 99% on R/A; em MDM: 21:59 Differential diagnosis: CVA, TIA, metabolic disorder, drug effects, Dehydration. Data [facility] reviewed: vital signs, nurses notes, old medical records, lab test result(s), cardiac enzymes, CBC, electrolytes, EKG, radiologic studies, CT scan, plain films. Data interpreted: Pulse oximetry: on room air is 96 %. Interpretation: normal. Counseling: I had a detailed discussion with the patient and/or guardian regarding: the historical points, exam findings, and any diagnostic results supporting the discharge/admit diagnosis, the presence of at least one elevated blood pressure reading (>120/80) during this emergency department visit, lab results, radiology results, the need for further work-up and treatment in the hospital. Response to treatment: the patient's symptoms have mildly improved after treatment. 22:02 Patient medically screened. [facility] 04/18 20:20 Order name: Basic Metabolic Panel [facility] 04/18 20:20 Order name: CBC with Diff [facility] 04/18 20:20 Order name: LFT's; Complete Time: 21:48 [facility] 04/18 20:20 Order name: Magnesium; Complete Time: 21:48 [facility] 04/18 20:20 Order name: NT PRO-BNP; Complete Time: 21:48 [facility] 04/18 20:20 Order name: PT-INR; Complete Time: 21:17 [facility] 04/18 20:20 Order name: Troponin (emerg Dept Use Only); Complete Time: 21:48 [facility] 04/18 20:20 Order name: Basic Metabolic Panel; Complete Time: 21:48 [facility] 04/18 20:20 Order name: CBC with Automated Diff; Complete Time: 21:17 [facility] 04/18 20:20 Order name: Blood Culture Adult (2) [facility] 04/18 20:20 Order name: Lactate; Complete Time: 21:48 [facility] 04/18 20:20 Order name: Procalcitonin; Complete Time: 21:48 [facility] 04/18 21:18 Order name: C-Reactive Protein; Complete Time: 21:48 [facility] 04/18 20:20 Order name: XRAY Chest (1 view) [facility] 04/18 21:19 Order name: CT Head Brain wo Cont; Complete Time: 21:48 [facility] 04/18 22:12 Order name: Basic Metabolic Panel [facility] 04/18 22:12 Order name: Basic Metabolic Panel [facility] 04/18 22:12 Order name: Troponin I [facility] 04/18 22:12 Order name: Troponin I [facility] 04/18 22:12 Order name: Troponin I [facility] 04/18 22:13 Order name: CBC with Automated Diff [facility] 04/18 22:13 Order name: CBC with Automated Diff [facility] 04/18 23:24 Order name: COVID-19 : Document "Date of Symptom Onset" if Symptomatic. 04/18 23:34 Order name: CORONAVIRUS [facility] 04/18 23:50 Order name: Urine Dipstick-Ancillary [facility] 04/19 01:22 Order name: SARS-COV-2 RT PCR [facility] 04/20 07:06 Order name: Basic Metabolic Panel [facility] 04/20 07:06 Order name: Magnesium [facility] 04/18 20:20 Order name: EKG; Complete Time: 20:20 [facility] 04/18 20:20 Order name: Cardiac monitoring; Complete Time: 20:58 [facility] 04/18 20:20 Order name: EKG - Nurse/Tech; Complete Time: 20:58 [facility] 04/18 20:20 Order name: IV Saline Lock; Complete Time: 20:58 [facility] 04/18 20:20 Order name: Labs collected and sent; Complete Time: 20:58 [facility] 04/18 20:20 Order name: O2 Per Protocol; Complete Time: 20:58 [facility] 04/18 20:20 Order name: O2 Sat Monitoring; Complete Time: 20:59 [facility] 04/18 20:20 Order name: Urine Dipstick-Ancillary (obtain specimen) [facility] 04/18 22:12 Order name: CONS Physician Consult [facility] 04/18 22:12 Order name: Consistent Carb (ADA) [address] [facility] 04/18 22:12 Order name: EKG Electrocardiogram [facility] 04/18 22:12 Order name: EKG Electrocardiogram [facility] 04/18 22:12 Order name: EKG Electrocardiogram [facility] 04/18 22:12 Order name: EKG Electrocardiogram [facility] Administered Medications: 21:10 Drug: morphine 4 mg Route: IVP; Site: right antecubital; em 22:04 Follow up: Response: No adverse reaction; Marked relief of symptoms em 21:10 Drug: Zofran (Ondansetron) 4 mg Route: IVP; Site: right antecubital; em 22:04 Follow up: Response: No adverse reaction em 22:04 Drug: D5-NS 500 ml Route: IV; Rate: per protocol; Site: right forearm; em 22:04 Drug: SOLU-Medrol (methylPrednisoLONE) 40 mg Route: IVP; Site: right forearm; em 22:56 Drug: Lovenox (enoxaparin) 1 mg/kg Route: Sub-Q; Site: left lower abdomen; iw 23:51 Follow up: Response: No adverse reaction iw 22:56 Drug: Aspirin Chewable Tablet 324 mg Route: PO; iw Disposition Summary: 04/18/21 22:02 Hospitalization Ordered Hospitalization Status: Inpatient Admission [facility] Provider: Casey Kohler Condition: Stable [facility] Problem: new mh7 Symptoms: have improved [facility] Bed/Room Type: Standard [facility] Location: [facility] ER HOLD(04/19/21 01:20) cg Room Assignment: ERHOLD-(04/19/21 01:20) cg Diagnosis - Subsequent non-ST elevation (NSTEMI) myocardial infarction mh7 - Generalized Weakness [facility] Forms: - Medication Reconciliation Form 7 - SBAR form [facility] Signatures: Dispatcher [employer] EDAri Cotto RN RN em Sonia Cota RN RN Elaine Laboy RN RN cg Holmes, Maurice, MD MD [facility] Corrections: (The following items were deleted from the chart) 21:18 20:26 C-REACTIVE PROTEIN+C.LAB.BRZ ordered. EDDE EDDE 04/19 01:20 04/18 22:02 Telemetry/Med[place]urg ([place]patient[place] [facility] 04/19 01:20 04/18 22:02 [facility]
--- NOTE | 2021-04-18 22:02 | ER ---
Nurse's Notes [facility] Name: Rosina Odonnell Age: 86 yrs Sex: Female : 1935 Arrival Date: 04/18/2021 Time: 19:53 Bed 30 Private MD: Diagnosis: Subsequent non-ST elevation (NSTEMI) myocardial infarction;Generalized Weakness Presentation: 04/18 20:08 Chief complaint: EMS states: called out for generalized weakness, just d/c from [facility] iw for COVID pneumonia. Ebola Screen: Patient negative for fever greater than or equal to 101.5 degrees Fahrenheit, and additional compatible Ebola Virus Disease symptoms Patient denies exposure to infectious person. Patient denies travel to an Ebola-affected area in the 21 days before illness onset. No symptoms or risks identified at this time. Onset of symptoms was April 18, 2021. 20:08 Method Of Arrival: EMS: [facility] iw 20:08 Acuity: [place] 3 iw Historical: - Allergies: 20:02 Augmentin; iw - Home Meds: 20:02 alprazolam 0.25 mg Oral tab nightly [Active]; carvedilol 6.25 mg oral tab 1 tab 2 times iw per day [Active]; levetiracetam 750 mg oral tab 1 tab 2 times per day [Active]; levothyroxine 112 mcg tab 1 tab once daily [Active]; Butalbital Compound 50-325-40 mg Oral cap twice a day [Active]; duloxetine 90 mg oral once daily [Active]; Nexium 40 mg Oral cpDR 1 cap 2 times per day [Active]; fluticasone propionate inhalation 1 puff 2 times per day [Active]; Hydrocodone-Acetaminophen Oral 1 tab every 6 hours [Active]; hyoscyamine sulfate 0.125 mg SL subl as needed [Active]; Meclizine Oral as needed [Active]; Methocarbamol 1000 mg Oral nightly [Active]; Nasonex 50 mcg/actuation Nasal spry 2 sprays once daily [Active]; Carafate 1 gram Oral tab as needed [Active]; trazodone 150 mg Oral Tb24 nightly [Active]; - PMHx: 20:02 Hypertension; Multiple Sclerosis; iw - Social history:: Smoking status: unknown. Screenin:14 Abuse screen: Denies threats or abuse. Nutritional screening: No deficits noted. em Tuberculosis screening: No symptoms or risk factors identified. Fall Risk None identified. Assessment: 20:00 General: Appears in no apparent distress. uncomfortable, Behavior is calm, anxious, em restless. Pain: Complains of pain in "everywhere". Neuro: Level of Consciousness is awake, alert, Oriented to person, place, time, situation. Cardiovascular: Capillary refill < 3 seconds Patient's skin is warm and dry. Respiratory: Airway is patent Respiratory effort is even, unlabored, Respiratory pattern is regular, symmetrical. GI: Abdomen is flat. Derm: Skin is intact, is fragile, is thin. Musculoskeletal: Capillary refill < 3 seconds, Range of motion: intact in all extremities. 21:41 Reassessment: Patient appears in no apparent distress at this time. Patient and/or iw family updated on plan of care and expected duration. Pain level reassessed. Vital Signs: 20:09 BP 155 / 72; Pulse 55; Resp 16; Temp 97.7; Pulse Ox 96% on R/A; iw 21:54 Weight 48.99 kg; bb 23:00 BP 170 / 90; Pulse 68; Resp 16; Pulse Ox 99% on R/A; em ED Course: 19:53 Patient arrived in ED. mw2 20:01 Rashawn Estrella MD is Attending Physician. 7 20:09 Triage completed. iw 20:11 Arm band placed on. iw 20:14 Ari Valdivia, RN is Primary Nurse. em 20:14 Patient has correct armband on for positive identification. Placed in gown. Bed in low em position. Call light in reach. Side rails up X2. monitor and storage bin tender on. Pulse ox on. NIBP on. 20:59 Initial lab(s) drawn, by me, sent to lab. Inserted saline lock: 22 gauge in right iw forearm, using aseptic technique. Blood collected. 21:17 XRAY Chest (1 view) In Process Unspecified. EDMS 21:37 CT Head Brain wo Cont In Process Unspecified. EDMS 22:01 Casey Kohler MD is Hospitalizing Provider. mh7 04/19 00:02 No provider procedures requiring assistance completed. Patient admitted, IV remains in em place. Administered Medications: 04/18 21:10 Drug: morphine 4 mg Route: IVP; Site: right antecubital; em 22:04 Follow up: Response: No adverse reaction; Marked relief of symptoms em 21:10 Drug: Zofran (Ondansetron) 4 mg Route: IVP; Site: right antecubital; em 22:04 Follow up: Response: No adverse reaction em 22:04 Drug: D5-NS 500 ml Route: IV; Rate: per protocol; Site: right forearm; em 22:04 Drug: SOLU-Medrol (methylPrednisoLONE) 40 mg Route: IVP; Site: right forearm; em 22:56 Drug: Lovenox (enoxaparin) 1 mg/kg Route: Sub-Q; Site: left lower abdomen; iw 23:51 Follow up: Response: No adverse reaction iw 22:56 Drug: Aspirin Chewable Tablet 324 mg Route: PO; iw Outcome: 22:02 Decision to Hospitalize by Provider. mh7 08 00:02 Admitted to ER Hold. Please see [facility] for further documentation. em Condition: stable Instructed on the need for admit, Demonstrated understanding of instructions. 04/20 16:59 Patient left the ED. eb Signatures: Dispatcher [employer] EDAri Cotto RN RN Marialuisa Bhagat RN RN bb Williams, Irene, RN RN Kassie Caceres 2 Ratna Eldridge Maurice, MD MD 7
[2021-04-18] MEDS ORDERED: ACETAMINOPHEN 325 MG TABLET PO PRN (22:06)
[2021-04-18] MEDS ORDERED: ONDANSETRON 4 MG/2 ML VIAL IV PRN (22:06)
[2021-04-18] MEDS ORDERED: D5 0.9 NS 1,000 ML IV SCH (23:00)
[2021-04-18] MEDS ORDERED: ASPIRIN 81 MG CHEWABLE TABLET ONE (23:04)
[2021-04-18] MEDS ORDERED: ENOXAPARIN 40 MG/0.4 ML SQ ONE (23:04)
[2021-04-18] MEDS: ALBUTEROL 2.5 MG/3 ML NEB SOL NEB SCH (23:30)
--- NOTE | 2021-04-18 23:31 | RAD REPORT ---
EXAM DESCRIPTION: RAD - Chest Single View - 04/18/2021 9:17 pm CLINICAL HISTORY: generalized weakness;Cough, COVID positive COMPARISON: Portable March 22 TECHNIQUE: AP portable chest image was obtained 04/18/2021 9:17 pm . FINDINGS: No focal pneumonia identifiable. Interstitial pattern is similar to comparison. Heart and vasculature are normal. No measurable pleural effusion and no pneumothorax. No acute bony abnormality seen. No acute aortic findings suspected. IMPRESSION: No acute cardiopulmonary process.
[2021-04-18 23:50] LABS: Urine Blood Trace-intact (Negative); Urine Glucose Negative (Negative); Urine Protein 2+ (Negative); Urine Specific Gravity 1.025 (1.005-1.030); Urine pH 5.5 (5.0-7.0)
[2021-04-18] MEDS ORDERED: ALBUTEROL 2.5 MG/3 ML NEB SOL ONE (23:50)
[2021-04-19] MEDS: METHYLPREDNISOLONE 40 MG INJ IV SCH ×3 (01:00→17:57)
[2021-04-19] MEDS ORDERED: METHYLPREDNISOLONE 125 MG INJ ONE ×2 (01:06→08:59)
[2021-04-19] MEDS ORDERED: D5W 1,000 ML IV ONE (01:52)
[2021-04-19 02:29] VITALS: BMI 20.4
[2021-04-19] MEDS: ALBUTEROL 2.5 MG/3 ML NEB SOL NEB SCH ×6 (03:23→23:45)
[2021-04-19] MEDS ORDERED: ALBUTEROL 2.5 MG/3 ML NEB SOL ONE ×4 (03:45→19:49)
[2021-04-19 05:59] LABS: Absolute Lymphocytes (CBC) 0.6 K/uL (0.7-4.9); Basophils % 0.3 % (0-1.3); Hematocrit 37.9 % (36.0-45.0); Lymphocytes % 17.3 % (15.3-44.8); MPV 8.1 fL (7.6-11.3); RBC Red Blood Cell Count 4.12 M/uL (3.86-4.86)
[2021-04-19 06:18] LABS: Potassium 3.4 mmol/L (3.5-5.1)
[2021-04-19] MEDS: NA CHLORIDE 0.9% 1,000 ML IV SCH (08:37)
[2021-04-19] MEDS: ASPIRIN EC 81 MG TAB PO SCH (08:38)
[2021-04-19] MEDS ORDERED: NA CHLORIDE 0.9% 1,000 ML ONE (08:58)
[2021-04-19] MEDS ORDERED: ASPIRIN EC 81 MG TAB PO ONE (08:58)
[2021-04-19] MEDS: MORPHINE 2 MG/ML SYR IV PRN ×2 (08:59→18:04)
[2021-04-19] MEDS ORDERED: PNEUMOCOCCAL VACCINE 0.5 ML IMVAC ONE (09:00)
[2021-04-19] MEDS ORDERED: IPRATROPIUM BROM 0.5MG/2.5ML ONE (09:12)
[2021-04-19] MEDS ORDERED: MORPHINE 2 MG/ML SYR ONE ×2 (09:21→18:25)
--- NOTE | 2021-04-19 10:49 | EKG ---
Test Date: 2021-04-18 Test Time: 20:52:48 [employer]: [employer] MEASUREMENT RESULTS: Intervals: Rate: 71 OH: 150 QRSD: 80 QT: 436 QTc: 473 [place]: P: 50 OH: 150 QRS: 40 T: 60 INTERPRETIVE STATEMENTS: Normal sinus rhythm with sinus arrhythmia Normal ECG Compared to ECG 03/22/2021 00:22:51 Sinus bradycardia no longer present Electronically Signed On 04-19-21 10:48:12 CDT by Tobias Lisa
[2021-04-19] MEDS: KCL 20 MEQ/100 mL IVPB 20 MEQ/100 ML BAG IV SCH ×2 (14:05→17:56)
[2021-04-19] MEDS ORDERED: KCL 20 MEQ/100 mL IVPB 20 MEQ/100 ML BAG IV ONE ×2 (14:27→18:09)
[2021-04-19] MEDS ORDERED: SODIUM CHLORIDE 0.9% 10ML INJ IV PRN (16:26)
[2021-04-19] MEDS ORDERED: PANTOPRAZOLE 40 MG INJ IVP ONE (16:26)
[2021-04-19] MEDS ORDERED: HYDROCODONE/APAP 5/325 MG TAB PO PRN (16:28)
[2021-04-19] MEDS ORDERED: DOCUSATE NA/SENNA CONC 1 TAB PO PRN (16:33)
[2021-04-19] MEDS: carvediloL 6.25 MG TAB PO SCH (17:57)
[2021-04-19] MEDS ORDERED: carvediloL 6.25 MG TAB ONE (18:08)
[2021-04-19] MEDS ORDERED: METHYLPREDNISOLONE 40 MG INJ ONE (18:09)
[2021-04-19] MEDS ORDERED: PANTOPRAZOLE 40 MG INJ ONE (18:20)
--- NOTE | 2021-04-19 20:45 | HP ---
Date of Admission: 04/18/2021 Chief Complaint: COVID infection and not eating or drinking. History Of Present Illness: Ms. Odonnell is a very pleasant 87-year-old female patient, who was brought to our emergency room on 04/15/2021 with cough, fever, and her was diagnosed as having COVID infection during last week or weekend. From our emergency room, she was sent to [facility] and f rom [facility], she was transferred to [facility] where she was admitted to the hospital for 2 to 3 days. She was discharged to come home on 04/17/2021, which is yesterday and today the patient' s called and reported that the patient was brought home from hospital, but she is not doing w ell, so yesterday I did TeleVisit with her, talked to her and her , and was recommended for th e patient to come to emergency room. Ever since the patient came home, she has been in the bed. She has not gotten out of bed and has not had anything to eat or drink, and has not taken any of her med ications. She did not eat or drink anything yesterday either as reported by the patient and the lala ent's . So for 2 days, she has not had any nutrition or any hydration as we understand now. Hen I asked her any questions, she was answering simple questions with 1 word. She is feeling very w eak. After she was evaluated in the ER, she was admitted to the hospital with significant debility, generalized weakness secondary to COVID infection. She was not in any respiratory distress when I sa w her this morning. Allergies: PENICILLIN CAUSING ITCHING AND SULFA CAUSING ITCHING. Medications: She takes hydrocodone as prescribed by her pain management physician, Proventil inhaler 2 puffs every 4 hours as needed, alprazolam 0.5 mg at bedtime as needed for sleep, azelastine nasal spray 1 spray each nostril 2 times a day, carvedilol 6.25 mg 2 times a day, Senokot-S 2 tablets by [facility] 2 times a day, duloxetine 60 mg daily, Flonase nasal spray 1 spray in each nostril 2 times a day, Advair Diskus inhaler 1 puff 2 times a day, folic acid 0.8 mg daily, Boniva 150 mg once a month, lev etiracetam 750 mg twice a day, levothyroxine 50 mcg daily, Linzess 145 mcg daily, meclizine 25 mg 3 t imes a day as needed, montelukast 10 mg daily, pantoprazole 40 mg daily, Seroquel 25 mg at bedtime, s ucralfate 1 g 2 times a day, Aubagio, and Spiriva inhaler 2 puffs daily. Review of Systems: Constitutional: As mentioned above. Musculoskeletal: Chronic back pain and joint pain. All other systems reviewed and negative. Past Medical History: Significant for seizure disorder, multiple sclerosis, hypothyroidism, mild per sistent asthma, hypertension, mixed hyperlipidemia, mitral stenosis, diverticulosis, osteoarthritis a t multiple sites, anemia, depression, and insomnia. Past Surgical History: Sinus surgery, removal of benign tumor from left breast, hysterectomy, should er surgery, which is left shoulder and right elbow surgery. Family History: Father had subdural hematoma. Mother had hypertension. Social History: Negative for smoking or alcohol use. Physical Examination: Vital Signs: This morning, temperature 98.4, pulse 60, respiratory rate 16, blood pressure 160/90, o xygen saturation 94%. Height 5 feet 1 inch, weight 108 pounds. General: The patient appears very weak, not in any distress. HEENT: Head atraumatic, normocephalic. Conjunctivae nonerythematous. Sclerae white. Mouth, no thr ush or edema noted. Ears/Nose, no mass, lesion, discharge noted. Neck: Supple. No JVD, lymph nodes, bruit, thyromegaly noted. Lungs: Bilateral good equal air entry. Clear to auscultation. No rhonchi. No rales. Heart: Normal heart sounds. No murmur or gallop. Abdomen: Soft. Bowel sounds normal. No guarding, rigidity, tenderness, mass, hepatosplenomegaly, d istention, or bruit noted. Extremities: Right elbow deformity, which is chronic. Skin: No rash, ulcer, cellulitis. Lymphatics: No lymph node enlargement in neck, supraclavicular, infraclavicular region. Neuro: No focal neurological deficit. Chest: Unremarkable. External Genitalia: Deferred. Rectal: Deferred. Laboratory Data: Chest x-ray, no acute cardiopulmonary changes noted. Electrocardiogram shows deyvi l sinus rhythm with sinus arrhythmia. Normal EKG. CAT scan of the head was negative for any acute i ntracranial changes. White count yesterday 4.6, hemoglobin 12.6, platelets 170. This morning, white count 3.2, hemoglobin 12.9, platelets 175. Yesterday, sodium 139, potassium 3.5, chloride 103, bica rb 25, BUN 25, creatinine 0.59, glucose 127. Lactic acid 1.5. Liver function tests unremarkable. C -reactive protein 12.2, proBNP 5539, procalcitonin less than 0.05. Second troponin 0.17. This morni ng, sodium 136, potassium 3.4, chloride 99, bicarb 26, BUN 26, creatinine 0.65, glucose 203. Troponi n 0.16 on the third set. Urinalysis showed trace blood, 2+ protein, 1+ ketones, otherwise negative. COVID-19 test positive. Impression: 1.Toxic encephalopathy. 2.Debility. 3.Generalized weakness. 4.COVID-19 infection. 5.Leukocytopenia. 6.Hypokalemia. 7.Volume depletion. 8.Abnormal cardiac enzymes. 9.Mild persistent asthma. 10.Hypertension. 11.Multiple sclerosis. 12.Seizure disorder. 13.Hypothyroidism. 14.Mixed hyperlipidemia. 15.Osteoarthritis, multiple sites. 16.Depression. 17.Insomnia. Plan: Admit the patient to hospital for further evaluation and management of this problem. The lala ent has clinically volume depletion problem. We will go ahead and give her IV fluid D5 normal saline and start her on IV steroid. We will give nebulizer treatment and Lovenox will be ordered mg/kg sub cutaneous injection every 12 hours and consult Cardiology. Her cardiac enzymes are slightly abnormal , but she does not have any evidence of myocardial infarction. Cardiology consultation will be reque sted. I did communicate with Dr. Lisa. We will also get echo with Doppler. Home medications gladys l be continued per order and I will see her tomorrow for followup. We may consider changing from Marge enox to Eliquis 2.5 mg 2 times a day on her and I will correct her potassium per electrolyte replacement protocol. ANH/MODL Voice ID: [id number]
[2021-04-19] MEDS ORDERED: QUETIAPINE 25 MG TAB PO SCH (21:00)
[2021-04-19] MEDS ORDERED: levETIRAcetam 500 MG TAB ONE (21:34)
[2021-04-19] MEDS: levETIRAcetam 500 MG TAB PO SCH (22:29)
[2021-04-19] MEDS: APIXABAN 2.5 MG TABLET PO SCH (22:29)
[2021-04-19] MEDS: DULERA 200/5 (MOMETASONE/FORMOTEROL) INHALER IH SCH (22:29)
[2021-04-20] MEDS ORDERED: ALBUTEROL 2.5 MG/3 ML NEB SOL ONE ×4 (00:10→16:23)
[2021-04-20] MEDS: METHYLPREDNISOLONE 40 MG INJ IV SCH ×2 (00:59→09:00)
[2021-04-20] MEDS: NA CHLORIDE 0.9% 1,000 ML IV SCH ×2 (01:01→10:40)
[2021-04-20] MEDS ORDERED: METHYLPREDNISOLONE 40 MG INJ ONE (01:21)
[2021-04-20] MEDS ORDERED: NA CHLORIDE 0.9% 1,000 ML ONE (01:23)
[2021-04-20] MEDS: ALBUTEROL 2.5 MG/3 ML NEB SOL NEB SCH ×3 (03:15→12:00)
[2021-04-20] MEDS ORDERED: PANTOPRAZOLE 40MG TABLET PO SCH (06:30)
[2021-04-20] MEDS ORDERED: LEVOTHYROXINE SOD 0.05 MG TABLET PO SCH (06:30)
[2021-04-20 07:06] LABS: BUN Blood Urea Nitrogen 32 mg/dL (7-18); Bicarbonate 26 mmol/L (21-32); Glucose Level 188 mg/dL (74-106); Magnesium 2.2 mg/dL (1.8-2.4); Potassium 3.9 mmol/L (3.5-5.1); Sodium Level 140 mmol/L (136-145)
[2021-04-20] MEDS ORDERED: PANTOPRAZOLE 40MG TABLET PO ONE (07:45)
[2021-04-20] MEDS: APIXABAN 2.5 MG TABLET PO SCH (09:00)
[2021-04-20] MEDS: DULERA 200/5 (MOMETASONE/FORMOTEROL) INHALER IH SCH (09:00)
[2021-04-20] MEDS ORDERED: DULOXETINE 30 MG CAP PO SCH (09:00)
[2021-04-20] MEDS ORDERED: METHYLPREDNISOLONE 125 MG INJ ONE (09:09)
[2021-04-20] MEDS ORDERED: carvediloL 6.25 MG TAB ONE (09:09)
[2021-04-20] MEDS ORDERED: ASPIRIN EC 81 MG TAB PO ONE (09:09)
[2021-04-20] MEDS ORDERED: APIXABAN 5 MG TABLET ONE (09:10)
[2021-04-20] MEDS ORDERED: levETIRAcetam 500 MG TAB ONE (09:10)
[2021-04-20] MEDS: ASPIRIN EC 81 MG TAB PO SCH (09:11)
[2021-04-20] MEDS: carvediloL 6.25 MG TAB PO SCH (09:12)
[2021-04-20] MEDS: levETIRAcetam 500 MG TAB PO SCH (09:12)
[2021-04-20] MEDS ORDERED: ENSURE CLEAR 200 ML CAN PO SCH (11:00)
[2021-04-20 11:38] VITALS: O2SAT 93
[2021-04-20 12:30] VITALS: TEMP 98.8
[2021-04-20] MEDS ORDERED: ACETAMINOPHEN 325 MG TABLET ONE (12:30)
[2021-04-20 17:02] VITALS: BP 139/63
--- NOTE | 2021-04-20 21:17 | DS ---
Date of Discharge: 04/20/2021 Disposition: The patient will be discharged to go home this afternoon. Physical Examination: HEENT: Unremarkable. Lungs: Clear to auscultation. Heart: Sounds normal. Abdomen: Soft. Bowel sounds normal. No guarding, rigidity, tenderness, or distention. Extremities: No leg edema. Vital Signs: Last vital signs today, oxygen saturation 94% on room air, blood pressure 142/72, pulse 72, temperature 98.5, respiratory rate 17. Laboratory Data: Last labs today, chemistry showed sodium 140, potassium 3.9, chloride 107, bicarb 2 6, BUN 32, creatinine 0.6, glucose 188, magnesium 2.2. Her last troponin 0.16, second troponin 0.17, and first troponin 0.14. Her liver function test was normal when she came in. Procalcitonin less t nelson 0.05. Last potassium was 3.4, which was yesterday and that was corrected. Her CRP when she came in was 12.2. White count when she came in was 4.6, hemoglobin 12.6, platelets 170, and yesterday wh ite count 3.2, hemoglobin 12.9, platelets 175. Hospital Course: This is an 86-year-old pleasant female patient, admitted to the hospital with COVID -19 infection along with generalized weakness, not eating or drinking anything. Please see dictated H and P for more information. The patient was evaluated in the ER. She was in the hospital. She wa s given IV fluid and IV steroid was started. Heparin injection initially was given in form of Loveno x 1 mg/kg subcutaneous injection every 12 hours. Subsequently, it was changed to Eliquis. The patie nt's condition has improved. This morning when I saw her, she was back to her normal usual self. Marco hyman does have generalized weakness. I have advised her to go ahead and start getting active at home wi th some assistance using walker and assistance from her family, and her and son is at home, cierra smith will assist her. We will also make arrangements for home health care and home physical therapy to assist her and will contact my office on Thursday, which is day after tomorrow, to make arrang ements for home health services to be started. Her troponin was slightly abnormal, but stable. EKG was normal. There is no clinical evidence of any myocardial infarction and Dr. Lisa was consulted from Cardiology. He also has the same opinion that this abnormal troponin was a nonspecific elevati on. Echocardiogram result is pending. We will follow up on that and we will ask the patient to have follow up with any commodity sales deliverer on outpatient basis for elective stress test to be done. Clinically, marco hyman does not have any signs or symptoms of myocardial infarction with a normal EKG. Her condition othe rwise has remained stable. She has not shown any hypoxia, has not required any supplemental oxygen d uring this hospital stay. Chest x-ray is normal. Her appetite is poor and I encouraged her to eat a ll her 3 meals and start using nutritional supplement, Ensure, at least 3 cans a day on top of her me als. I did call the patient's and discussed all these details with him. was also ad vised to make sure that do not allow the patient unassisted to transfer or to ambulate, and a nd patient's son will assist patient with this activities. The patient will be discharged to go home in stable condition today. Discharge Medications And Instructions: 1.Continue all previous home medications. 2.Take prednisone as prescribed. 3.Eliquis 2.5 mg 2 times a day for 1 month. 4.Follow up with me next week and call office for appointment. Final Diagnoses: 1.COVID-19 infection. 2.Acute kidney injury. 3.Volume depletion. 4.Hypertension. 5.Mild persistent asthma. 6.Osteoarthritis, multiple sites. 7.Acute encephalopathy. ANH/MODL Voice ID: [id number] Report ID: [id number]
--- NOTE | 2021-04-21 09:06 | CON ---
Date of Consultation: 04/19/2021 Reason For Consultation: Elevated troponin. History Of Present Illness: Ms. Odonnell is an 86-year-old woman who was recently diagnosed with COVID pneumonia, but continues to have cough, fatigue, and decreased appetite. Dr. Kohler decided to admit h er because of severe weakness, was found to have elevated troponin, but no true cardiac symptoms were reported. Past Medical History: Include anxiety, hypertension, but denies any diabetes, dyslipidemia, or heart disease. Allergies: SHE IS ALLERGIC TO AUGMENTIN. Review of Systems: Negative. Social History: Negative. Family History: Noncontributory. Medications: At home include carvedilol, Xanax, Synthroid, Nexium, and trazodone. Past Medical History: Positive for hypertension and multiple sclerosis. Physical Examination: Vital Signs: Stable. She was slightly hypertensive at 134/86, sinus rhythm, afebrile, pulse was 73, but appeared to be very weak. Her O2 saturation was 99% on room air. HEENT: Negative. Neck: Supple with no bruit. Chest: Clear to auscultation and percussion. Cardiac: Revealed a regular rhythm and rate. No murmurs, gallops, or rubs. Abdomen: Benign. Extremities: Revealed no clubbing, cyanosis, or edema. Diagnostic Data: Creatinine of 0.65. Her white count was normal at 3.2. Hemoglobin was normal. He r potassium was 3.4. Her troponin was 0.14, 0.16, and 0.17. BNP was 5539. She was positive for COV ID. Chest x-ray was normal. EKG was normal. Impression And Plan: Elevated troponin, still more likely related to demand ischemia from her previo us COVID. Her chest x-ray has improved. I think she needs to be on. She needs to continue her home medication. She needs to the on Eliquis low-dose for now. She needs to be on steroid. I will leav e all that to Dr. Kohler, but I am comfortable with her going home whenever it is okay with him. I thi nk an echocardiogram would be reasonable to obtain to rule out a cardiomyopathy. Certainly, no plans for heart catheterization at this point. KENYON/MODL Voice ID: [id number] Report ID: [id number]
--- NOTE | 2021-04-22 08:22 | ECHO ---
HEIGHT: 5 ft 1 in WEIGHT: 108 lb 0.071 oz DATE OF STUDY: 04/19/[address]: Matthieu Kohler MD 2-DIMENSIONAL: YES M.MODE: YES DOPPLER: YES COLOR FLOW: YES TDS: YES PORTABLE: DEFINITY: BUBBLE STUDY: DIAGNOSIS: ABNORMAL TROPONIN CARDIAC HISTORY: CATHERIZATION: SURGERY: PROSTHETIC VALVE: PACEMAKER: MEASUREMENTS (cm) DIASTOLIC (NORMALS) SYSTOLIC (NORMALS) IVSd 0.9 (0.6-1.2) LA Diam (1.9-4.0) LVEF 51% LVIDd 3.9 (3.5-5.7) LVIDs 2.9 (2.0-3.5) %FS 25% LVPWd 0.8 (0.6-1.2) Ao Diam 2.6 (2.0-3.7) 2 DIMENSIONAL ASSESSMENT: RIGHT ATRIUM: NORMAL LEFT ATRIUM: NORMAL RIGHT VENTRICLE: NORMAL LEFT VENTRICLE: NORMAL TRICUSPID VALVE: NORMAL MITRAL VALVE: NORMAL PULMONIC VALVE: NORMAL AORTIC VALVE: NORMAL PERICARDIAL EFFUSION: NONE AORTIC ROOT: NORMAL LEFT VENTRICULAR WALL MOTION: NORMAL DOPPLER/COLOR FLOW: NORMAL COMMENTS: NORMAL LEFT VENTRICULAR SIZE AND FUNCTION. AORTIC SCLEROSIS - NO STENOSIS. NO WALL MOTION ABNORMALITY. NO EFFUSION. TECHNOLOGIST: MARJAN HERNÁNDEZ
== END 2021-04-20 16:10 | disposition home or self-care (01) | DRG 177 ==
LOC: ER 19:24 → ERHOLD 22:04
PROVIDERS: ADMIT Internal Medicine; ATTEND Internal Medicine
DX: U07.1 COVID-19 (principal); G92 Toxic encephalopathy; N17.9 Acute kidney failure, unspecified; I24.8 Other forms of acute ischemic heart disease; I10 Essential (primary) hypertension; G89.29 Other chronic pain; M54.9 Dorsalgia, unspecified; E03.9 Hypothyroidism, unspecified; M19.90 Unspecified osteoarthritis, unspecified site; D72.819 Decreased white blood cell count, unspecified; E87.6 Hypokalemia; E86.9 Volume depletion, unspecified; J45.30 Mild persistent asthma, uncomplicated; G35 Multiple sclerosis; G40.909 Epilepsy, unspecified, not intractable, without status epilepticus; E78.2 Mixed hyperlipidemia; F32.9 Major depressive disorder, single episode, unspecified; G47.00 Insomnia, unspecified; R77.8 Other specified abnormalities of plasma proteins; R53.81 Other malaise; Z79.899 Other long term (current) drug therapy; Z88.1 Allergy status to other antibiotic agents; Z79.890 Hormone replacement therapy; Z90.710 Acquired absence of both cervix and uterus
CPT/HCPCS: 36415; 70450; 71045; 80048; 80076; 81003; 83605; 83735; 83880; 84145; 84484; 85025; 85610; 86140; 87040; 93005; 93306; 94640; 96372; 99285; C9113; J1650; J2270; J2405; J2920; J2930; J3480; J7030; J7040; J7060; J7606; U0003

== ENCOUNTER 2022-06-30 13:56 | Emergency (ER) | payer OTHER ==
--- OUTSIDE RECORDS SUMMARY | 2022-06-30 14:08 | XMS REPORT | Continuity of Care Document ---
:1935 Author Organization [facility] t Address [address] [place] [address] Care Team Providers Name Role Phone ANTONY ANNALISA Nielsen Primary Care Physician Unavailable Triston Shrestha Attending Clinician Dakotah Snyder RN Attending Clinician Unavailable Avani Goodwin Attending Clinician Sree Ramos MD Attending Clinician Diego Herrera MD Attending Clinician Shaun HAIRSTON, Torrey Donnelly Attending Clinician Avani ORDONEZ Attending Clinician Unavailable KEREN MARES Attending Clinician Unavailable Keren Mares DO Attending Clinician Carlos Laguerre Attending Clinician Antoni Reed Attending Clinician Shaun HAIRSTON, Torrey Donnelly Admitting Clinician KEREN MARES Admitting Clinician Unavailable Carlos Laguerre Admitting Clinician Antoni Reed Admitting Clinician Payers Payer Name Policy Type Policy Number Effective Date Expiration Date S [facility] MEDICARE [id number] 2017 2021 ERS 00:00:00 00:00:00 Problems Condition Condition Condition Status Onset Resolution Last Treating Co mments Source Name Details Category Date Date Treatment Clinician Date Acute Acute Disease Active [facility] respirator respirator 04-16 [place] Medical hypoxia hypoxia Branch Pancytopen Pancytopen Disease Active U nivers ia ia 04-16 ity of 00:00: [place] 00 Medical Branch Mild Mild Disease Active Univers protein-ca protein-ca 04-16 it y of olegario melvin 00:00: [place] malnutriti malnutriti 00 Me dical on on Branch Elevated Elevated Disease Active Unive rs brain brain 04-16 ity of natriureti natriureti [place] c peptide c peptide 00 Medi gina (BNP) (BNP) Branch level level COVID-19 COVID-19 Disease Active Unive rs 04-15 ity of 00:00: [place] 00 Medical Branch OPEN RIGHT OPEN Diagnosis Active 2018-02-09 Memoria HUMERUS FX RIGHT 02-03 19:37:00 l HUMERUS FX 00:00: Valdez downey Active 00 02/03/2018 [facility] Common Common Problem Active 2022-04-14 Edinson david peroneal peroneal 3-16 02:52:31 l nerve nerve 00:00: [place] lesion lesion 00 (disorder) (disorder) Active 11/27/2016 Problem 04/14/2022 [facility] GI BLEED, GI BLEED, Diagnosis Active 2015-11-01 Memoria ANEMIA ANEMIA 2-08 21:55:00 l Active 00:00: Raymond 10/22/2015 00 [facility] Localizati Localizat Problem Active 2022-04-14 Memoria on-related ion-relate 1-14 02:52:31 l symptomati d 00:00: Valdez nielsen epilepsy symptomati 00 (disorder) c epilepsy (disorder) Active 09/27/2015 Problem 04/14/2022 [facility] Anemia Anemia Problem Resolve 2022-04-14 Mem oria (disorder) (disorder) d 02:52:31 l Resolved Raymond Problem 04/14/2022 [facility] Anxiety Anxiety Problem Resolve 2022-04-14 M emoria (finding) (finding) d 02:52:31 l Resolved Raymond Problem 04/14/2022 [facility] Asthma Asthma Problem Resolve 2022-04-14 Mem oria (disorder) (disorder) d 02:52:31 l Resolved Raymond Problem 04/14/2022 [facility] Depressive Depressiv Problem Resolve 2022-04-14 Memoria disorder e disorder d 02:52:31 l (disorder) (disorder) He rmann Resolved Problem 04/14/2022 [facility] Hypertensi Hypertens Problem Resolve 2022-04-14 Memoria ve cely d 02:52:31 l disorder, disorder, Herm lori systemic systemic arterial arterial (disorder) (disorder) Resolved Problem 04/14/2022 [facility] 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 02:52:31 l (disorder) (disorder) He rmann Resolved Problem 04/14/2022 [facility] 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 02:52:31 l (disorder) (disorder) He rmann Resolved Problem 04/14/2022 [facility] Seizure Seizure Problem Resolve 2022-04-14 M emoria (finding) (finding) d 02:52:31 l Resolved Raymond Problem 04/14/2022 [facility] Vertigo Vertigo Problem Active 2022-04-14 Me moria (finding) (finding) 02:52:31 l Active Raymond Problem 04/14/2022 [facility] Migraine Migraine Problem Active 2022-04-14 Memoria (disorder) (disorder) 02:52:31 l Active Ada Problem 04/14/2022 [facility] Neuro GASTROINTE GASTROINT Diagnosis Active 2015-11-01 Memoria STINAL ESTINAL 21:55:00 l HEMORRHAGE HEMORRHAGE He rmann , , UNSPECIFIE UNSPECIFIE D D Active [facility] No known No known Disease Unive rs active active ity of problems problems [facility] ANEMIA, ANEMIA, Diagnosis Active 2015-11-01 Memoria UNSPECIFIE UNSPECIFIE 21:55:00 l D D Active Raymond [facility] UNS Diagnosis Active 2018-02-09 Mem oria FRACTURE FRACTURE 19:37:00 l OF SHAFT OF SHAFT Valdez downey OF OF HUMERUS, HUMERUS, UNS UNSP Active [facility] Exacerbati Exacerbat Problem Resolve 2022-04-14 2022-04-14 Memoria on of ion of d 5-12 02:52:31 02:52:31 l multiple multiple 00:00: Valdez downey sclerosis sclerosis 00 (disorder) (disorder) Resolved 01/23/2017 Problem 04/14/2022 [facility] Allergies, Adverse Reactions, Alerts Allergy Allergy Status Severity Reaction(s) Onset Inactive Treating Comm ents Source Name Type Date Date Clinician AMOXICIL DRUG Active ITCHING 2014-0 Univers CHAPARRITA-POT 7-24 ity of CLAVULAN 00:00: [place] ATE 00 Medical Branch PENICILL Drug Active ITCHING 2014-0 Univers INS Class 7-24 ity of 00:00: [place] 00 Medical Branch SULFA Drug Active ITCHING 2014-0 Univers (SULFONA Class 7-24 ity of MIDE 00:00: [place] ANTIBIOT 00 Medical ICS) Branch Amoxicil Propensi Active Itching 0 Unive rs chaparrita-Pot ty to 7-24 ity of Clavulan adverse 00:00: [place] ate reaction 00 Medical s Branch Penicill Propensi Active Itching 2014-0 Unive rs ins ty to 7-24 ity of adverse 00:00: [place] reaction 00 Medical s Branch Sulfa Propensi Active Itching 2014-0 Univers (Sulfona ty to 7-24 ity of mide adverse 00:00: [place] Antibiot reaction 00 Medica l ics) s Branch sulfa sulfa Active Memoria drugs drugs l [place] sulfa sulfa Active Memoria drugs drugs l [place] Augmenti Augmenti Active Memori a n n l Raymond Social History Social Habit Start Date Stop Date Quantity Comments Source Exposure to Yes University of SARS-CoV-2 [facility] (event) Branch Alcohol intake 2021-04-15 2021-04-15 Current University of 00:00:00 00:00:00 non-drinker of [facility] alcohol Branch (finding) Tobacco use and 2021-04-15 2021-04-15 Never used Universit y of exposure 00:00:00 00:00:00 [facility] Social History 2018-02-04 2018-02-04 [facility] 16:15:22 16:15:22 Sex Ass[birth year] At [birth year] Universit y of 00:00:00 00:00:00 [facility] Smoking Status Start Date Stop Date Source Never smoker [facility] Medications Ordered Filled Start Stop Current Ordering Indication Dosage Frequency Signature Comments Components Source Medication Medication Date Date Medication? Clinician (SIG) Name Name Zackery Fernandez Yes 50 mg = 1 Mem oria mg oral 7-29 tab, PO, l tablet 18:54: PRN, PRN Ada 00 migraine, # 8 tab, 2 Refill(s), Pharmacy: [facility] #[id number], 160.02, cm, 04/11/22 13:42:00 CDT, Height, 68.864, kg, 04/11/22 13:42:00 CDT, Weight lasmiditan Yes 50 mg = 1 Me moria 50 MG Oral 3-16 tab, PO, l Tablet 21:19: PRN, PRN Ada [] 00 migraine, # 8 tab, 2 Refill(s), Pharmacy: [facility] #[id number], 162.56, cm, 11/27/21 15:49:00 CDT, Height, 50.455, kg, 11/27/21 15:49:00 CDT, Weight Levetiracet Yes = 1 tab, Me moria am 750 MG 3-16 PO, BID, # l Oral Tablet 21:19: 60 tab, 6 H ermann 00 Refill(s), Pharmacy: [facility] #[id number], 162.56, cm, 11/27/21 15:49:00 CDT, Height, 50.455, kg, 11/27/21 15:49:00 CDT, Weight carvedilol Yes 6.25mg Take 6.25 Univers (COREG) 8-05 mg by ity of 3.125 mg 02:23: mouth 2 [place] tablet 47 (two) Medical times Branch daily. Fluticasone Yes 1{puff} Inhale 1 Univers -Salmeterol 8-05 Puff every it y of (ADVAIR 02:23: 12 [place] DISKUS) 47 (twelve) Medical 500-50 hours. Branch mcg/dose inhalation disk HYDROcodone Yes 1{tbl} Take 1 Tab Univers -acetaminop 8-05 by mouth ity of hen (NORCO) 02:23: every 6 Fabiano as 10-325 mg 47 (six) Medical tablet hours as Branch needed. methocarbam Yes 1000mg Take 1,000 Univers ol 8-05 mg by ity of (ROBAXIN) 02:23: mouth [place] 500 mg 47 every Medical tablet evening. Branch BUTALBITAL/ Yes 2{tbl} Take 2 Un chris ASPIRIN/CAF 8-05 Tabs by ity o f FEINE 02:23: mouth as [place] (BUTALBITAL 47 needed. Medic al COMPOUND/ Branch A ORAL) pregabalin Yes 50mg Take 50 mg U nivers (LYRICA) 50 8-05 by mouth ity of mg capsule 02:23: every [place] 47 evening. Medical Branch esomeprazol Yes 40mg Take 40 mg Univers e (NEXIUM) 8-05 by mouth 2 ity of 40 mg 02:23: (two) [place] capsule 47 times Medical daily. Branch ALPRAZolam Yes .25mg Take 0.25 U nivers (XANAX) 8-05 mg by ity of 0.25 mg 02:23: mouth at [place] tablet 47 bedtime. Medical Branch MECLIZINE Yes Take by Unive rs HCL 8-05 mouth as ity of (MECLIZINE 02:23: [place]. [place] ORAL) 47 Medical Branch traZODone Yes 150mg Take 150 Uni vers (DESYREL) 8-05 mg by ity of 150 mg 02:23: mouth at [place] tablet 47 bedtime. Medical Branch hyoscyamine Yes .125mg Take 0.125 Univers (LEVSIN) 8-05 mg by ity of 0.125 mg 02:23: mouth as [place] tablet 47 needed. Medical Branch levothyroxi Yes 125ug Take 125 U nivers ne 8-05 mcg by ity of (SYNTHROID) 02:23: mouth [place] 125 mcg 47 daily. Medical tablet Branch sucralfate Yes 1g Take 1 g Uni vers (CARAFATE) 8-05 by mouth ity o f 1 gram 02:23: as needed. [place] tablet 47 Medical Branch DULoxetine Yes 90mg Take 90 mg U nivers (CYMBALTA) 8-05 by mouth ity o f 30 mg 02:23: daily. [place] capsule 47 Indication Medica l s: Take 60 Branch mg every AM and 30 mg every PM mometasone Yes 1{spray Use 1 Uni vers (NASONEX) 8-05 } [place] in ity of 50 02:23: each [place] mcg/actuati 47 nostril as Me dical on nasal needed. Branch spray levETIRAcet Yes 750mg Take 750 U nivers am (KEPPRA) 8-05 mg by ity of 750 mg 02:23: mouth 2 [place] tablet 47 (two) Medical times Branch daily. carvedilol Yes 6.25mg Take 6.25 Univers (COREG) 8-05 mg by ity of 3.125 mg 02:23: mouth 2 [place] tablet 47 (two) Medical times Branch daily. Fluticasone Yes 1{puff} Inhale 1 Univers -Salmeterol 8-05 Puff every it y of (ADVAIR 02:23: 12 [place] DISKUS) 47 (twelve) Medical 500-50 hours. Branch mcg/dose inhalation disk HYDROcodone Yes 1{tbl} Take 1 Tab Univers -acetaminop 8-05 by mouth ity of hen (NORCO) 02:23: every 6 Fabiano as 10-325 mg 47 (six) Medical tablet hours as Branch needed. methocarbam Yes 1000mg Take 1,000 Univers ol 8-05 mg by ity of (ROBAXIN) 02:23: mouth [place] 500 mg 47 every Medical tablet evening. Branch BUTALBITAL/ Yes 2{tbl} Take 2 Un chris ASPIRIN/CAF 8-05 Tabs by ity o f FEINE 02:23: mouth as [place] (BUTALBITAL 47 needed. Medic al COMPOUND/ Branch A ORAL) pregabalin Yes 50mg Take 50 mg U nivers (LYRICA) 50 8-05 by mouth ity of mg capsule 02:23: every [place] 47 evening. Medical Branch esomeprazol Yes 40mg Take 40 mg Univers e (NEXIUM) 8-05 by mouth 2 ity of 40 mg 02:23: (two) [place] capsule 47 times Medical daily. Branch ALPRAZolam Yes .25mg Take 0.25 U nivers (XANAX) 8-05 mg by ity of 0.25 mg 02:23: mouth at [place] tablet 47 bedtime. Medical Branch MECLIZINE Yes Take by Unive rs HCL 8-05 mouth as ity of (MECLIZINE 02:23: [place]. [place] ORAL) 47 Medical Branch traZODone Yes 150mg Take 150 Uni vers (DESYREL) 8-05 mg by ity of 150 mg 02:23: mouth at [place] tablet 47 bedtime. Medical Branch hyoscyamine Yes .125mg Take 0.125 Univers (LEVSIN) 8-05 mg by ity of 0.125 mg 02:23: mouth as [place] tablet 47 needed. Medical Branch levothyroxi Yes 125ug Take 125 U nivers ne 8-05 mcg by ity of (SYNTHROID) 02:23: mouth [place] 125 mcg 47 daily. Medical tablet Branch sucralfate Yes 1g Take 1 g Uni vers (CARAFATE) 8-05 by mouth ity o f 1 gram 02:23: as needed. [place] tablet 47 Medical Branch DULoxetine Yes 90mg Take 90 mg U nivers (CYMBALTA) 8-05 by mouth ity o f 30 mg 02:23: daily. [place] capsule 47 Indication Medica l s: Take 60 Branch mg every AM and 30 mg every PM mometasone Yes 1{spray Use 1 Uni vers (NASONEX) 8-05 } [place] in ity of 50 02:23: each [place] mcg/actuati 47 nostril as Me dical on nasal needed. Branch spray levETIRAcet Yes 750mg Take 750 U nivers am (KEPPRA) 8-05 mg by ity of 750 mg 02:23: mouth 2 [place] tablet 47 (two) Medical times Branch daily. montelukast 2020- No 10mg Take 10 mg Univers (SINGULAIR) 04-17 by mouth ity of 10 mg 16:21: 00:00 daily. [place] tablet 48 :00 [facility] Branch QUEtiapine 2020- No 25mg Take 25 mg Univers (SEROQUEL) 04-17 by mouth ity of 25 mg 16:21: 00:00 daily. [place] tablet 48 :00 [facility] Branch Dexlansopra 2020- No 1{tbl} Take 1 Tab Univers zole 04-17- by mouth ity of (DEXILANT) 16:21: 00:00 daily. [place] 30 mg CpDM 48 :00 [facility] Branch RANITIDINE 2020- No 1{tbl} Take 1 Tab Univers HCL (ZANTAC 04-17 by mouth ity of 75 ORAL) 16:21: 00:00 daily. [place] 48 :00 [facility] Branch Dexlansopra 2020- No 60mg Take 60 mg Univers zole 04-17- by mouth ity of (DEXILANT) 16:21: 00:00 daily. [place] 60 mg CpDM 48 :00 [facility] Branch ranitidine 2020- No 150mg Take 150 U nivers (ZANTAC) 04-17 08-04 mg by ity of 150 mg 16:21: 00:00 mouth [place] tablet 48 :00 daily. [facility] Branch etodolac 2020- No 500mg Take 500 Uni vers (LODINE) 04-17 08-04 mg by ity of 500 mg 16:21: 00:00 mouth 2 [place] tablet 48 :00 (two) Medical times Branch daily. losartan 2020- No 50mg Take 50 mg Un chris (COZAAR) 50 04-17 by mouth ity of mg tablet 16:21: 00:00 daily. [place] 48 :00 [facility] pregabalin Yes 50mg 50 mg, Unive rs (LYRICA) 803 Oral, QPM, ity o f capsule 50 22:00: First dose [place] mg 00 on [facility] 04/16/21 at Branch 1700, Until Discontinu ed, Routine proMETHazin No 12.5mg 12.5 mg, Univers e 04-16 08-03 IV ity of (PHENERGAN) 20:15: 21:05 Piggyback, [place] 12.5 mg in 00 :00 ONCE NOW, Medi gina NaCl 0.9% 1 dose, Branch (NS) 50 mL [facility] 04/16/21 IV at 1515, piggyback Routine famotidine Yes 20mg 20 mg, [facility] rs (PEPCID AC) 04-16 Oral, BID, it y of tablet 20 19:15: First dose [place] mg 00 (after Medical last Branch modificati on) on 04/16/21 at 1415, Until Discontinu ed enoxaparin Yes 40mg 40 mg, [facility] rs (LOVENOX) 04-16 Subcutaneo ity of injection 15:30: us, Q24H, [place] as 40 mg 00 First dose Medical on [facility] 04/16/21 at 1030, Until Discontinu ed, Routine losartan Yes 50mg 50 mg, Univers (COZAAR) 04-16 Oral, ity of tablet 50 14:00: DAILY, [place] mg 00 First dose Medical on [facility] 04/16/21 at 0900, Until Discontinu ed, Routine polyethylen Yes 17g 17 g, [facility] rs e glycol 04-16 Oral, ity of 3350 powder 14:00: DAILY, [place] 17 g 00 First dose Medical on [facility] 04/16/21 at 0900, Until Discontinu ed, Routine levETIRAcet Yes 750mg 750 mg, Un chris am (KEPPRA) 04-16 Oral, BID, it y of tablet 750 13:00: First dose [place] mg 00 on [facility] 04/16/21 at Branch 0800, Until Discontinu ed, Routine levothyroxi Yes 125ug 125 mcg, U nivers ne 04-16 Oral, ity of (SYNTHROID) 11:00: QAM-0600, [place] tablet 125 00 First dose Med ical mcg on [facility] 04/16/21 at 0600, Until Discontinu ed, Routine albuterol Yes 2{puff} 2 Puff, Un chris (VENTOLIN) 04-16 Inhalation ity of inhaler 2 03:47: , Q6HPRN, [place] as Puff 29 Starting Medical 04/15/21 Branch at 2247, Until Discontinu ed, Routine, Wheezing, Shortness of Breath, Bronchospa sm, Chest tightness ondansetron Yes 4mg 4 mg, Slow Univers (ZOFRAN 04-16 IV Push, ity of (PF)) 03:46: Q6HPRN, [place] injection 4 51 Starting Medi gina mg 04/15/21 Branch at 2246, Until Discontinu ed, Routine, Nausea and Vomiting (N/V) HYDROcodone 2020- No 1{tbl} 1 tablet, Univers -acetaminop 04-16 08-05 Oral, ity of hen (NORCO 03:46: 03:45 Q6HPRN, Fabiano as 5) 5-325 mg 45 :45 Starting Medi gina tablet 1 Thu04/15/21 Branc h tablet at 2246, Until Thu04/17/21 at 2245, Routine, Pain (scale 4-6) iopamidol 2020- No [id number] 100mL 100 mL, Univers (ISOVUE 04-16 Intravenou ity o f 370-500 mL) 00:00: 00:00 s, ONCE, 1 [place] injection 00 :00 dose, Mon Medic al 100 mL 04/15/21 at Branch 1900, Routine methocarbam Yes 0 Memori a ol 750 mg 7-16 Refill(s) l oral tablet 18:51: Valdez n 00 methocarbam 0 Yes 0 Memori a ol 750 mg 7-16 Refill(s) l oral tablet 18:51: Val[place] n 00 Levetiracet Yes See Memori a am 750 MG 3-09 Instructio l Oral Tablet 19:22: ns, TAKE 1 Ada 00 TABLET BY MOUTH TWICE DAILY, # 60 tab, 1 Refill(s), Pharmacy: [facility] #[id number], 162.56, cm, 10/06/19 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:00 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, Height, 50, kg, 10/06/19 14:23:00 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, Weight Levetiracet Yes See Memori a am 750 MG 3-09 Instructio l Oral Tablet 19:22: ns, TAKE 1 Raymond 00 TABLET BY MOUTH TWICE DAILY, # 60 tab, 1 Refill(s), [id number], 162.56, cm, 10/06/19 14:23:00 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, Height, 50, kg, 10/06/19 14:23:00 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, Weight Levetiracet No See Memori a am 750 MG 3- Instructio l Oral Tablet 22:57: ns, TAKE 1 Raymond 00 TABLET BY MOUTH TWICE DAILY, # 60 tab, 1 Refill(s), [id number], 162.56, cm, 10/06/19 14:23:00 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, Height, 50, kg, 10/06/19 14:: 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, Weight Levetiracet No See Memori a am 750 MG 3- Instructio l Oral Tablet 22:57: ns, TAKE 1 Ada 00 TABLET BY MOUTH TWICE DAILY, # 60 tab, 1 Refill(s), [id number], 162.56, cm, 10/06/19 14:23:00 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, Height, 50, kg, 10/06/19 14:23:00 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, Weight lasmiditan 2019-09 Yes 50 mg = 1 Me moria 50 MG Oral 1-12 tab, PO, l Tablet 20:30: PRN, PRN [place] [Reyvow] 00 migraine, # 8 tab, 2 Refill(s), [id number], 162.56, cm, 10/06/19 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:00 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, Height, 50, kg, 10/06/19 14:23:00 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, Weight Levetiracet 2019-09 Yes 750 mg = 1 Memoria am 750 MG 1-12 tab, PO, l Oral Tablet 20:30: BID, # 180 Raymond 00 tab, 1 Refill(s), [id number], 162.56, cm, 10/06/19 14:23:00 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, Height, 50, kg, 10/06/19 14:23:00 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, Weight lasmiditan 2019-09 Yes 50 mg = 1 Me moria 50 MG Oral 1-12 tab, PO, l Tablet 20:30: PRN, PRN [place] [Reyvow] 00 migraine, # 8 tab, 2 Refill(s), Pharmacy: [facility] #[id number], 162.56, cm, 10/06/19 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, Weight Levetiracet Yes See Memori a am 750 MG 3-30 Instructio l Oral Tablet 15:45: ns, # 480 H ermann 43 tab, TAKE 1 TABLET BY MOUTH TWICE DAILY, Pharmacy: [facility] #[id number] Levetiracet Yes See Memori a am 750 MG 3-30 Instructio l Oral Tablet 15:45: ns, # 480 H ermann 43 tab, TAKE 1 TABLET BY MOUTH TWICE DAILY, Pharmacy: [facility] #[id number] pregabalin 2020-0 Yes 100 mg = 1 M emoria 100 MG Oral 1-23 cap, PO, l Capsule 20:57: Daily, 0 Valdez n [Lyrica] 00 Refill(s) pregabalin 2019-0 Yes 100 mg = 1 M emoria 100 MG Oral 1-23 cap, PO, l Capsule 20:57: Daily, 0 Valdez n [Lyrica] 00 Refill(s) 12 HR Yes 1 tab, PO, Memori a Acetaminoph 7-12 PRN, 0 l en 325 MG / 19:31: Refill(s) H ermann Oxycodone 00 Hydrochlori de 7.5 MG Extended Release Oral Tablet 12 HR Yes 1 tab, PO, Memori a Acetaminoph [...] l oral tablet 19:00: BID, # 180 Ada 00 tab, 0 Refill(s) Amlodipine Yes 5 mg = 1 Mem oria 5 MG Oral 5-10 tab, PO, l Tablet 19:00: Daily, # Ada [Norvasc] 00 30 tab, 0 Refill(s) duloxetine Yes 60 mg = 1 Me moria 60 MG 5-10 cap, PO, l Enteric 19:00: BID, 0 Ada Coated 00 Refill(s) Capsule [Cymbalta] carvedilol Yes [...] day, # 180 tab, 1 Refill(s), Pharmacy: [place] [address] Levetiracet No 750 mg = 1 Memoria am 750 MG 1-03 tab, PO, l Oral Tablet 19:00: BID, X 90 H ermann [Keppra] day, # 180 tab, 1 Refill(s), Pharmacy: [place] [address] Levetiracet Yes 750 mg = 1 Memoria am 750 MG 5-26 tab, PO, l Oral Tablet 16:13: BID, 0 Herm lori [Keppra] 00 Refill(s) Levetiracet Yes 750 mg = 1 Memoria am 750 MG 5-26 tab, PO, l Oral Tablet 16:13: BID, 0 Herm lori [Keppra] 00 Refill(s) enoxaparin Yes 40 mg = Edinson david 40 mg/0.4 5-26 0.4 mL, l mL 16:07: SUB-Q, Ada subcutaneou 00 [id number], s solution X 21 day, # 8 mL, 0 Refill(s), Pharmacy: [place] [address] Ergocalcife Yes 50,000 Edinson david rol [id number] -[id number] IntlUnit = l UNT Oral 16:07: 1 cap, PO, Her pearson Capsule 00 Q7D, # 5 cap, 0 Refill(s), Pharmacy: [place] [address] Calcium Yes 1 tab, Memoria Carbonate 5-26 CHEW, BID, l 1250 MG / 16:07: # 60 tab, Her pearson Cholecalcif 00 0 lucia 400 Refill(s), UNT Pharmacy: [facility] [place] [address] enoxaparin Yes 40 mg = Edinson david 40 mg/0.4 5-26 0.4 mL, l mL 16:07: SUB-Q, Raymond subcutaneou 00 [id number], s solution X 21 day, # 8 mL, 0 Refill(s), Pharmacy: [place] [address] Ergocalcife Yes 50,000 Edinson david rol [id number] 5-26 IntlUnit = l UNT Oral 16:07: 1 cap, PO, Her pearson Capsule 00 Q7D, # 5 cap, 0 Refill(s), Pharmacy: [place] [address] Calcium Yes 1 tab, Memoria Carbonate 5-26 CHEW, BID, l 1250 MG / 16:07: # 60 tab, Her pearson Cholecalcif 00 0 lucia 400 Refill(s), UNT Pharmacy: [facility] Table[facility] [place] [address] oxyCODONE 5 No Notes: Edinson david mg oral 5-26 (Same as: l tablet 15:42: Roxicodone Cassidy nn 00 ) oxyCODONE 5 No Notes: Edinson david mg oral 5-26 (Same as: l tablet 15:42: Roxicodone Cassidy nn 00 ) Oxycodone No Notes: Memori a Hydrochlori 5-26 (Same as: l de 5 MG 00:32: Roxicodone Herm lori Oral Tablet 00 ) Oxycodone No Notes: Memori a Hydrochlori 5-26 (Same as: l de 5 MG 00:32: Roxicodone Herm lori Oral Tablet 00 ) Calcium No Notes: Memoria Carbonate 5-25 (calcium l 1250 MG / 14:00: carbonate- He rmann Cholecalcif 00 vit D lucia 400 500mg-400u UNT nit TAB) [facility] Same as: Tablet Oyster-D, OsCal-D Calcium No Notes: Memoria Carbonate 5-25 (calcium l 1250 MG / 14:00: carbonate- He rmann Cholecalcif 00 vit D lucia 400 500mg-400u UNT nit TAB) [facility] Same as: Tablet Oyster-D, OsCal-D Ergocalcife No Notes: Edinson david rol [id number] 5-25 (Same as: l UNT Oral 12:00: Vitamin D) Her pearson Capsule 00 "Do Not Crush" Ergocalcife No Notes: Edinson david rol [id number] 5-25 (Same as: l UNT Oral 12:00: Vitamin D) Her pearson Capsule 00 "Do Not Crush" Thyroxine No Notes: Memori a 5-25 Take 1 l 11:30: hour Ada 00 before or 2 hours after meal; Enteral feeds may interefere with the absorption of this medication . (Same as:Levothr oid) Thyroxine No Notes: Memori a 5-25 Take 1 l 11:30: hour Ada 00 before or 2 hours after meal; Enteral feeds may interefere with the absorption of this medication . (Same as:Levothr oid) Oxycodone No Notes: Memori a Hydrochlori 5-25 (Same as: l de 5 MG 10:37: Roxicodone Herm lori Oral Tablet 00 ) Oxycodone No Notes: Memori a Hydrochlori 5-25 (Same as: l de 5 MG 10:37: Roxicodone Herm lori Oral Tablet 00 ) Cefazolin No Notes: Memori a 5-25 (Same as l 05:00: Ancef) Cefazolin No Notes: Memori a 5-25 (Same as l 05:00: Ancef) sugammadex No Notes: Memor ia 5-25 (Same as: l 02:43: Bridion) sugammadex No Notes: Memor ia 5-25 (Same as: l 02:43: Bridion) Amitriptyli No Notes: Edinson david ne 5-25 (Same as: l 02:00: Elavil) Singulair No Notes: Memori a 5-25 (Same l 02:00: as:Sing ir) Amitriptyli No Notes: Edinson david ne 5-25 (Same as: l 02:00: Elavil) Singulair No Notes: Memori a 5-25 (Same l 02:00: as:Sing ir) Ondansetron No 4 mg, Memor ia 5-25 Route: l 00:10: IVP, ONCE, Dosing Weight 51.818, kg, PRN Nausea & Vomiting, Start date: 02/04/18 19:10:00 CDT Hydralazine 2018-0 No 10 mg, Edinson david 5-25 Route: l 00:10: IVP, Ada 00 Q20Min, Dosing Weight 51.818, kg, PRN Elevated BP, Start date: 02/04/18 19:10:00 CDT, Duration: 2 doses or times, Stop date: Limited # of times Labetalol 2018-0 No 10 mg, Memori a 5-25 Route: l 00:10: IVP, Ada 00 Q5Min, Dosing Weight 51.818, kg, PRN Elevated BP, Start date: 02/04/18 19:10:00 CDT, Duration: 5 doses or times, Stop date: Limited # of times Flumazenil 2018-0 No 0.2 mg, Edinson david 5-25 Route: l 00:10: IVP, PRN, Ada 00 Dosing Weight 51.818, kg, PRN Benzodiaze pine Reversal, Initial dose, Start date: 02/04/18 19:10:00 CDT, Duration: 30 day, Stop date: 03/06/18 19:09:00 CDT Naloxone 2018-0 No 0.4 mg, Memori a 5-25 Route: l 00:10: IVP, Ada 00 Q2MIN, Dosing Weight 51.818, kg, PRN Narcotic Reversal, Start date: 02/04/18 19:10:00 CDT, Duration: 8 doses or times, Stop date: Limited # of times Hydromorpho 2018-0 No 0.5 mg, Mem oria ne 5-25 Route: l 00:10: IVP, Raymond 00 Q5Min, Dosing Weight 51.818, kg, PRN Pain Score 7-10, Start date: 02/04/18 19:10:00 CDT, Duration: 4 doses or times, Stop date: Limited # of times Oxycodone 2018-0 No 5 mg, Memoria 5-25 Route: PO, l 00:10: Drug form: Ada 00 TAB, Q4H, Dosing Weight 51.818, kg, PRN Pain Score 4-6, Start date: 02/04/18 19:10:00 CDT, Duration: 30 day, Stop date: 03/06/18 19:09:00 CDT Ondansetron 2018-0 No 4 mg, Memor ia 5-25 Route: l 00:10: IVP, ONCE, Ada 00 Dosing Weight 51.818, kg, PRN Nausea & Vomiting, Start date: 02/04/18 19:10:00 CDT Hydralazine 2018-0 No 10 mg, Edinson david 5-25 Route: l 00:10: IVP, Ada 00 Q20Min, Dosing Weight 51.818, kg, PRN [...] Memori a 5-25 Route: l 00:10: IVP, Ada 00 Q2MIN, Dosing Weight 51.818, kg, PRN Narcotic Reversal, Start date: 02/04/18 19:10:00 CDT, Duration: 8 doses or times, Stop date: Limited # of times Hydromorpho 2018-0 No 0.5 mg, Mem oria ne 5-25 Route: l 00:10: IVP, Raymond 00 [...] 5-24 Drug form: l 23:58: INJ, ONCE, Raymond 00 Stop date: 02/04/18 18:58:00 CDT ondansetron 0 No Route: IV, Memoria (ANES) 5-24 Drug form: l 23:58: INJ, ONCE, Stop date: 02/04/18 18:58:00 CDT albuterol 0 No Route: Memori a (ANES) 5-24 INHALATION l 23:16: , Drug form: AERO/A, ONCE, Stop date: 02/04/18 18:16:00 CDT albuterol 0 No Route: Memori a (ANES) 5-24 INHALATION l 23:16: , Drug form: AERO/A, ONCE, Stop date: 02/04/18 18:16:00 CDT acetaminoph 0 No Route: IV, Memoria en (ANES) 5-24 Drug form: l 10 mg 23:00: INJ, Start Valdez n date: 02/04/18 18:00:00 CDT, Stop date: 02/04/18 19:00:00 CDT acetaminoph 0 No Route: IV, Memoria en (ANES) 5-24 Drug form: l 10 mg 23:00: INJ, Start Valdez n date: 02/04/18 18:00:00 CDT, Stop date: 02/04/18 19:00:00 CDT hydromorpho 2017-0 No Route: IV, Memoria ne (ANES) 5-24 Drug form: l 22:51: INJ, ONCE, Raymond 00 Stop date: 02/04/18 17:51:00 CDT dexamethaso 2017-0 No Route: IV, Memoria ne (ANES) 5-24 Drug form: l 22:51: INJ, ONCE, Stop date: 02/04/18 17:51:00 CDT hydromorpho 2018-0 No Route: IV, Memoria ne (ANES) 5-24 Drug form: l 22:51: INJ, ONCE, Stop date: 02/04/18 17:51:00 CDT dexamethaso 2017-0 No Route: IV, Memoria ne (ANES) 5-24 Drug form: l 22:51: INJ, ONCE, Stop date: 02/04/18 17:51:00 CDT rocuronium 2018-0 No Route: IV, M emoria (ANES) 5-24 Drug form: l 22:20: INJ, ONCE, Stop date: 02/04/18 17:20:00 CDT rocuronium 2018-0 No Route: IV, M emoria (ANES) 5-24 Drug form: l 22:20: INJ, ONCE, Stop date: 02/04/18 17:20:00 CDT fentaNYL 2018-0 No Route: IV, Mem oria (ANES) 5-24 Drug form: l 22:10: INJ, ONCE Stop date: 02/04/18 17:10:00 CDT propofol 2018-0 No Route: IV, Mem oria (ANES) 5-24 Drug form: l 22:10: INJ, ONCE, Stop date: 02/04/18 17:10:00 CDT lidocaine 2018-0 No Route: IV, Me moria (ANES) 5-24 Drug form: l 22:10: INJ, ONCE, Stop date: 02/04/18 17:10:00 CDT ondansetron 2018-0 No Route: IV, Memoria (ANES) 5-24 Drug form: l 22:10: INJ, ONCE, Stop date: 02/04/18 17:10:00 CDT fentaNYL 2018-0 No Route: IV, Mem oria (ANES) 5-24 Drug form: l 22:10: INJ, ONCE, Stop date: 02/04/18 17:10:00 CDT propofol 2018-0 No Route: IV, Mem oria (ANES) 5-24 Drug form: l 22:10: INJ, ONCE, Stop date: 02/04/18 17:10:00 CDT lidocaine 2018-0 No Route: IV, Me moria (ANES) 5-24 Drug form: l 22:10: INJ, ONCE, Stop date: 02/04/18 17:10:00 CDT ondansetron 2017-0 No Route: IV, Memoria (ANES) 5-24 Drug form: l 22:10: INJ, ONCE, Stop date: 02/04/18 17:10:00 CDT ceFAZolin 2017-0 No Route: IV, Me moria (ANES) 5-24 Drug form: l 22:05: INJ, ONCE, Stop date: 02/04/18 17:05:00 CDT phenylephri 2017-0 No Route: IV, Memoria ne (ANES) 5-24 Drug form: l 22:05: INJ, ONCE, Stop date: 02/04/18 17:05:00 CDT ePHEDrine 2017-0 No Route: IV, Me moria (ANES) 5-24 Drug form: l 22:05: INJ, ONCE, Stop date: 02/04/18 17:05:00 CDT ceFAZolin 2017-0 No Route: IV, Me moria (ANES) 5-24 Drug form: l 22:05: INJ, ONCE, Stop date: 02/04/18 17:05:00 CDT phenylephri 2017-0 No Route: IV, Memoria ne (ANES) 5-24 Drug form: l 22:05: INJ, ONCE, Stop date: 02/04/18 17:05:00 CDT ePHEDrine 2017-0 No Route: IV, Me moria (ANES) 5-24 Drug form: l 22:05: INJ, ONCE, Stop date: 02/04/18 17:05:00 CDT Lactated 2017-0 No Route: IV, Mem oria Ringers 5-24 Total l Injection 20:35: Volume: Cassidy nn IV (ANES) 00 1,000, 1000 mL Start date: 02/04/18 15:35:00 CDT, Stop date: 02/04/18 16:35:00 CDT Lactated No Route: IV, Mem oria Ringers 5-24 Total l Injection 20:35: Volume: Cassidy nn IV (ANES) 00 1,000, 1000 mL Start date: 02/04/18 15:35:00 CDT, Stop date: 02/04/18 16:35:00 CDT Lovenox No Notes: Memoria 5-24 (Same as: l 19:00: Lovenox) Lovenox No Notes: Memoria 5-24 (Same as: l 19:00: Lovenox) Ancef No Notes: Memoria 5-24 (Same as l 16:00: Ancef) Ancef No Notes: Memoria 5-24 (Same as l 16:00: Ancef) Levetiracet No Notes: Edinson david am 750 MG 5-24 Same as l Oral Tablet 14:00: Zara sandoval [Keppra] Advair No 1 puff, Memoria Diskus 500 5-24 Route: l mcg-50 mcg 14:00: INHALATION H ermann inhalation 00 , Drug powder Form: AERO, Dosing Weight 47.001, kg, BID, Start date: 02/04/18 9:00:00 CDT, Duration: 30 day, Stop date: 03/05/18 17:00:00 CDT Cymbalta No 30 mg, Memoria 5-24 Route: PO, l 14:00: Drug form: Ada 00 DRC, BID, Dosing Weight 47.001, kg, Start date: 02/04/18 9:00:00 CDT, Duration: 30 day, Stop date: 03/05/18 17:00:00 CDT Levetiracet No Notes: Edinson david am 750 MG 5-24 Same as l Oral Tablet 14:00: Keppra Herm lori [Keppra] Advair No 1 puff, Memoria Diskus 500 5-24 Route: l mcg-50 mcg 14:00: INHALATION H ermann inhalation 00 , Drug [...] david formoterol 5-24 6411 l 13:00: Tania Ada [id number] Inhale 2 puff(s) by mouth 2 times a day Carlos Chiu Mfr_ Don't use after_ budesonide- No Notes: Edinson david formoterol 5-24 6411 l 13:00: Tania Raymond [address],[id number] Inhale 2 puff(s) by mouth 2 times a day Carlos Chiu Mfr_ Don't use after_ Tramadol No Notes: Not Mem oria 5-24 to exceed l 11:00: 400mg/day. (Same As: Ultram) Tramadol No Notes: Not Mem oria 5-24 to exceed l 11:00: 400mg/day. (Same As: Ultram) Acetaminoph No Notes: Edinson david en 325 MG / 5-24 (Same as: l Hydrocodone 10:55: Noble Cassidy nn Bitartrate 00 325/5) Do 5 MG Oral not exceed Tablet 4gm/day of [Noble acetaminop 5/325] hen. Acetaminoph No Notes: Edinson david en 325 MG / 5-24 (Same as: l Hydrocodone 10:55: Noble Cassidy nn Bitartrate 00 325/5) Do 5 MG Oral not exceed Tablet 4gm/day of [Noble acetaminop 5/325] hen. Ondansetron No Notes: Edinson david 5-24 (Same as: l 10:54: Zofran) MEDICATION WASTE Product Size: 4 mg Product Wasted: ___ mg Acetaminoph No Notes: Edinson david en 325 MG / 5-24 (Same as: l Hydrocodone 10:54: Noble Cassidy nn Bitartrate 00 325/5) Do 5 MG Oral not exceed Tablet 4gm/day of acetaminop hen. Acetaminoph No Notes: Do M emoria en 5-24 not exceed l 10:54: 4 gm/day. (Same as: Tylenol) Ondansetron No Notes: Edinson david 5-24 (Same as: l 10:54: Zofran) MEDICATION WASTE Product Size: 4 mg Product Wasted: ___ mg Acetaminoph No Notes: Edinson david en 325 MG / 5-24 (Same as: l Hydrocodone 10:54: Noble Cassidy nn Bitartrate 00 325/5) Do 5 MG Oral not exceed Tablet 4gm/day of acetaminop hen. Acetaminoph No Notes: Do M emoria en 5-24 not exceed l 10:54: 4 gm/day. (Same as: Tylenol) Dilaudid No 1 mg, Memoria 5-24 Route: l 10:26: IVP, ONCE, Dosing Weight 47.001, kg, Priority: STAT, Start date: 02/04/18 5:26:00 CDT, Stop date: 02/04/18 5:26:00 CDT Dilaudid 0 No 1 mg, Memoria 5-24 Route: l 10:26: IVP, ONCE, Dosing Weight 47.001, kg, Priority: STAT, Start date: 02/04/18 5:26:00 CDT, Stop date: 02/04/18 5:26:00 CDT Fentanyl 0 No 50 Memoria 5-24 microgram, l 10:21: Route: IVP, ONCE, Dosing Weight 47.001, kg, Priority: STAT, Start date: 02/04/18 5:21:00 CDT, Stop date: 02/04/18 5:21:00 CDT Fentanyl 0 No 50 Memoria 5-24 microgram, l 10:21: Route: Raymond 00 IVP, ONCE, Dosing Weight 47.001, kg, Priority: STAT, Start date: 02/04/18 5:21:00 CDT, Stop date: 02/04/18 5:21:00 CDT Fentanyl 2017-0 No 50 Memoria 5-24 microgram, l 09:57: Route: Ada 00 IVP, ONCE, Dosing Weight 47.001, kg, Priority: STAT, Start date: 02/04/18 4:57:00 CDT, Stop date: 02/04/18 4:57:00 CDT Fentanyl 0 No 50 Memoria 5-24 microgram, l 09:57: Route: Raymond 00 IVP, ONCE, Dosing Weight 47.001, kg, Priority: STAT, Start date: 02/04/18 4:57:00 CDT, Stop date: 02/04/18 4:57:00 CDT Ancef No Notes: Memoria 5-24 (Same As: l 08:51: Ancef, Ada Kefzol) MEDICATION WASTE Product Size: 1000 mg Product Wasted: ___ mg Ancef No Notes: Memoria 5-24 (Same As: l 08:51: Ancef, Ada Kefzol) MEDICATION WASTE Product Size: 1000 mg Product Wasted: ___ mg Fentanyl 0 No Notes: Memoria 5-24 (Same as: l 08:49: Sublimaze) Preservati ve free. Fentanyl No Notes: Memoria 5-24 (Same as: l 08:49: Sublimaze) Ada 00 Preservati ve free. ferrous Yes 325 mg = 1 Edinson david sulfate 325 2-14 tab, PO, l mg oral 15:01: Daily, # Valdez n enteric 00 30 tab, 0 coated Refill(s) tablet dexlansopra Yes 60 mg = 1 M emoria zole 60 MG 2-14 cap, PO, l Enteric 15:01: Daily, # Valdez n Coated 00 30 cap, 0 Capsule Refill(s) [Dexilant] ferrous Yes 325 mg = 1 Edinson [...] Sulfite-Jose Roberto e) 2,000 mL + multivitam Amino Acids No Notes: Edinson david 4.25% with 2-13 Same as: l 5% Dextrose 04:00: ClinimixE H ermann and 00 Electrolyte s (Clinimix E Sulfite-Jose Roberto e) 2,000 mL + multivitam Protonix No Notes: For Mem oria 2-12 IV push l 23:00: reconstitu Ada 00 te with 10 ml 0.9% sodium chloride and push over 2 minutes. (Same as: Protonix) Protonix No Notes: For Mem oria 2-12 IV push l 23:00: reconstitu Raymond 00 te with 10 ml 0.9% sodium chloride and push over 2 minutes. (Same as: Protonix) Amino Acids No Notes: Edinson david 4.25% with 2-12 Same as: l 5% Dextrose 18:00: ClinimixE H ermann and 00 Electrolyte s (Clinimix E Sulfite-Jose Roberto e) 1,000 mL + multivitam Amino Acids No Notes: Edinson david 4.25% with 2-12 Same as: l 5% Dextrose 18:00: ClinimixE H ermann and 00 Electrolyte s (Clinimix E Sulfite-Jose Roberto e) 1,000 mL + multivitam Sodium No 250 mL, Memoria Chloride 2-11 Rate: On l 0.9% 22:16: call for Ada (titrate) 00 use with 250 mL blood product administra tion, Dosing Weight 47.001, kg, Route: IV, Total Volume: 250, Start Date: 10/25/15 16:16:00, Duration: 30 day, Stop date: 11/24/15 16:15:00, Replace Every: 24 hr Sodium 2016-0 No 250 mL, Memoria Chloride 2-11 Rate: On l 0.9% 22:16: call for Ada (titrate) 00 use with 250 mL blood product administra tion, Dosing Weight 47.001, kg, Route: IV, Total Volume: 250, Start Date: 10/25/15 16:16:00, Duration: 30 day, Stop date: 11/24/15 16:15:00, Replace Every: 24 hr Sodium 2016-0 No 100 mL, Memoria Chloride 2-11 Rate: 10 l 0.154 20:40: ml/hr, Raymond MEQ/ML 00 Infuse Injectable over: 10 Solution hr, Route: IVPB, Dosing Weight 47.001 kg, Total Volume: 100, Infuse at 8 mg / hr for 72 hours for GI bleeding, Start date: 10/25/15 14:40:00, Duration: 72 hr, Stop date: 10/28/15 14:39:00 Sodium 2016-0 No 100 mL, Memoria Chloride 2-11 Rate: 10 l 0.154 20:40: ml/hr, Ada MEQ/ML 00 Infuse Injectable over: 10 Solution hr, Route: IVPB, Dosing Weight 47.001 kg, Total Volume: 100, Infuse at 8 mg / hr for 72 hours for GI bleeding, Start date: 10/25/15 14:40:00, Duration: 72 hr, Stop date: 10/28/15 14:39:00 Reglan No Notes: Memoria 2-11 (Same as: l 18:00: Reglan) Ada 00 Reglan No Notes: Memoria 2-11 (Same as: l 18:00: Reglan) Ada 00 Morphine No Notes: Memoria 2-11 (Same l 14:51: as:MORPhin Ada 00 e Sulfate) Morphine No Notes: Memoria 2-11 (Same l 14:51: as:MORPhin Raymond 00 e Sulfate) Calcium No Notes: Memoria Carbonate 2-11 (Same As: l 500 MG 08:39: Tums) Raymond Chewable 00 Calcium Tablet Carbonate 500 mg = 200 mg elemental calcium Dose = mg calcium carbonate ( mg elemental calcium) Magnesium No Notes: Memori a Sulfate - WASTE: F/P l 08:39: - Sink; E Ada 00 - Municipal Trash Bin Neutra-Phos No Notes: Edinson david 2-11 (Same as: l 08:39: Neutra-Mary Raymond 00 s) Each 1.25 gm pkt has 250mg phosphorou s. Mix w/2.5oz water and stir. Calcium No Notes: Memoria Gluconate 2 WASTE: F/P l 08:39: - Sink; E Raymond 00 - Municipal Trash Bin Magnesium No Notes: Memori a Oxide -11 (Same as: l 08:39: Mag-Ox Ada 00 400) Magnesium oxide 756io=499s g elemental magnesium Dose=____m g magnesium oxide (___mg elemental magnesium) potassium No Notes: Memori a phosphate 2-11 (Same as: l 08:39: K Ada 00 Phosphate. ) sodium No 30 mmol, [...] 2-11 (Same as: l Sodium 08:39: K Ada Chloride 00 Phosphate. 0.9% IV 250 ) 1 mMol mL phoshate has 1.47 mEq potassium Infuse over 4 hours potassium No Notes: Memori a chloride 2-11 (Same as: l 08:39: K-Dur 20) Ada 00 "Do Not Crush" With food and full glass of water Calcium No Notes: Memoria Carbonate 2-11 (Same As: l 500 MG 08:39: Tums) Raymond Chewable 00 Calcium Tablet Carbonate 500 mg = 200 mg elemental calcium Dose = mg calcium carbonate ( mg elemental calcium) Magnesium No Notes: Memori a Sulfate 2-11 WASTE: F/P l 08:39: - Sink; E Ada 00 - Municipal Trash Bin Neutra-Phos No Notes: Edinson david 2-11 (Same as: l 08:39: Neutra-Mary Raymond 00 s) Each 1.25 gm pkt has 250mg phosphorou s. Mix w/2.5oz water and stir. Calcium No Notes: Memoria Gluconate 2-11 WASTE: F/P l 08:39: - Sink; E - Municipal Trash Bin Magnesium No Notes: Memori a Oxide 2-11 (Same as: l 08:39: Mag-Ox Ada 00 400) Magnesium oxide 100on=383g g elemental magnesium Dose=____m g magnesium oxide (___mg elemental magnesium) potassium No Notes: Memori a phosphate 2-11 (Same as: l 08:39: K Ada 00 Phosphate. ) sodium No 30 mmol, Memoria phosphate 2-11 250 mL, l 08:39: Route: Raymond IVPB, Drug form: INJ, PRN, Dosing Weight 47.001, kg, PRN Abnormal Lab Result, Start date: 10/25/15 2:39:00, Duration: 30 day, Stop date: 11/24/15 2:38:00, FOR ICU USE ONLY sodium No 45 mmol, Memoria phosphate + 2-11 15 mL, l Sodium 08:39: Route: Ada Chloride IVPB, PRN, 0.9% IV 250 Dosing mL Weight 47.001, kg, PRN Abnormal Lab Result, Start date: 10/25/15 2:39:00, Duration: 30 day, Stop date: 11/24/15 2:38:00, FOR ICU USE ONLY potassium No Notes: Memori a phosphate + 2-11 (Same as: l Sodium 08:39: K Chloride Phosphate. 0.9% IV 250 ) 1 mMol mL phoshate has 1.47 mEq potassium Infuse over 4 hours potassium No Notes: Memori a chloride 2-11 (Same as: l 08:39: K-Dur 20) "Do Not Crush" With food and full glass of water Amitriptyli No Notes: Edinson david ne 2-11 (Same as: l 03:00: Elavil) Amitriptyli No Notes: Edinson david ne 2-11 (Same as: l 03:00: Elavil) morphine No Notes: Memoria Sulfate 2-10 (Same l 21:27: as:MORPhin Ada 00 e Sulfate) morphine No Notes: Memoria Sulfate 2-10 (Same l 21:27: as:MORPhin Raymond 00 e Sulfate) Phenergan No Notes: Do Mem oria 2-10 not give l 21:26: IV push. Raymond 00 (Same as: Phenergan) Phenergan No Notes: Do Mem oria 2-10 not give l 21:26: IV push. Ada 00 (Same as: Phenergan) carvedilol No Notes: Memor ia 2-10 Give with l 15:00: food. Ada 00 (Same As: Coreg) 24 HR No 500 mg, 1 Memoria Etodolac 2-10 tab, l 500 MG 15:00: Route: PO, Cassidy nn Extended Drug form: Release ERTAB, Tablet BID, Dosing Weight 47.001, kg, Start date: 10/24/15 9:00:00, Duration: 30 day, Stop date: 11/22/15 17:00:00 Nexium No 40 mg, Memoria 2-10 Route: PO, l 15:00: Daily, Ada Dosing Weight 47.001, kg, Start date: 10/24/15 9:00:00, Duration: 30 day, Stop date: 11/22/15 9:00:00 carvedilol No Notes: Memor ia 2-10 Give with l 15:00: food. Ada 00 (Same As: Coreg) 24 HR No 500 mg, 1 Memoria Etodolac 2-10 tab, l 500 MG 15:00: Route: PO, Cassidy nn Extended 00 Drug form: Release ERTAB, Tablet BID, Dosing Weight 47.001, kg, Start date: 10/24/15 9:00:00, Duration: 30 day, Stop date: 11/22/15 17:00:00 Nexium No 40 mg, Memoria 2-10 Route: PO, l 15:00: Daily, Ada 00 Dosing Weight 47.001, kg, Start date: 10/24/15 9:00:00, Duration: 30 day, Stop date: 11/22/15 9:00:00 168 HR No Notes: Memoria Clonidine 2-10 Patch l 0.06961 14:44: delivers Valdez n MG/HR 00 0.1 mg/24 Transdermal hours; Patch Patch is applied weekly. "Remove old patch before applicatio n of new patch" (Same As: Catapres-T TS-1) Advair No Notes: Memoria Diskus 500 2-10 (Same as: l mcg-50 mcg 14:44: Advair) Herm lori inhalation 00 powder 168 HR No Notes: Memoria Clonidine 2-10 Patch l 0.02836 14:44: delivers Valdez n MG/HR 00 0.1 [...] a 2-10 (Same as: l 13:56: Antivert) Ada Hyoscyamine No Notes: Edinson david 2-10 (Same as: l 13:56: Levsin) Raymond 00 Take 30 min before meal Methocarbam No Notes: Edinson david ol 2-10 (Same l 13:56: as:Robaxin Raymond 00 ) Meclizine No Notes: Memori a 2-10 (Same as: l 13:56: Antivert) Ada Hyoscyamine No Notes: Edinson david 2-10 (Same as: l 13:56: Levsin) Raymond Take 30 min before meal Acetaminoph No Notes: Edinson david en 325 MG / 2-10 (Same as: l Hydrocodone 13:55: Noble Cassidy nn Bitartrate 00 325/5) Do 5 MG Oral not exceed Tablet 4gm/day of [Noble acetaminop 5/325] hen. Alprazolam No Notes: Memor ia 0.25 MG 2-10 With food l Oral Tablet 13:55: or milk Her pearson 00 (Same as: Xanax) Acetaminoph No Notes: Edinson david en 325 MG / 2-10 (Same as: l Hydrocodone 13:55: Noble Cassidy nn Bitartrate 00 325/5) Do 5 MG Oral not exceed Tablet 4gm/day of [Noble acetaminop 5/325] hen. Alprazolam No Notes: Memor ia 0.25 MG 2-10 With food l Oral Tablet 13:55: or milk Her pearson 00 (Same as: Xanax) Clonidine No Notes: Memori a Hydrochlori 2-10 (Same As: l de 0.2 MG 06:00: Catapres) Her pearson Oral Tablet 00 Clonidine No Notes: Memori a Hydrochlori 2-10 (Same As: l de 0.2 MG 06:00: Catapres) Her pearson Oral Tablet 00 Amlodipine No Notes: Memor ia 2-10 (Same as: l 04:43: Norvasc) Ada Amlodipine No Notes: Memor ia 2-10 (Same as: l 04:43: Norvasc) Raymond Cardene 40 No Notes: Memor ia mg in NS 2-10 Same as: l 200 mL 04:42: Alfa Andrade (Titrate.) 00 Concentrat IV 40 mg ion: (0.2 mg /1 ml ) Labetalol No Notes: Memori a 2-10 (Same as: l 04:42: Normodyne, Ada 00 Trandate) Push over 2 minutes Give bolus over 2-3 minutes. Cardene 40 No Notes: Memor ia mg in NS 2-10 Same as: l 200 mL 04:42: Cardene Ada (Titrate.) 00 Concentrat IV 40 mg ion: (0.2 mg /1 ml ) Labetalol No Notes: Memori a 2-10 (Same as: l 04:42: Normodyne, Raymond 00 Trandate) Push over 2 minutes Give bolus over 2-3 minutes. Zofran No Notes: Memoria 2-10 (Same as: l 01:05: Zofran) Raymond 00 MEDICATION WASTE Product Size: 4 mg Product Wasted: ___ mg Zofran No Notes: Memoria 2-10 (Same as: [...] 2-09 (Same as: l 23:30: Sublimaze) Raymond 00 Preservati ve free. midazolam No Notes: Memori a 2-09 (Same as: l 23:30: Versed) Raymond 00 MEDICATION WASTE Product Size: 2 mg Product Wasted: ___ mg Sublimaze No Notes: Memori a 2-09 (Same as: l 23:30: Sublimaze) Ada 00 Preservati ve free. midazolam 0 No Notes: Memori a 2-09 (Same as: l 23:30: Versed) Raymond 00 MEDICATION WASTE Product Size: 2 mg Product Wasted: ___ mg Thyroxine No Notes: Memori a 2-09 Take 1 l 12:30: hour Ada 00 before or 2 hours after meal; Enteral feeds may interefere with the absorption of this medication . (Same as:Levothr oid) Thyroxine No Notes: Memori a 2-09 Take 1 l 12:30: hour Ada 00 before or 2 hours after meal; Enteral feeds may interefere with the absorption of this medication . (Same as:Levothr oid) Sublimaze No Notes: Memori a 2-09 (Same as: l 03:47: Sublimaze) Ada 00 Preservati ve free. Sublimaze No Notes: Memori a 2-09 (Same as: l 03:47: Sublimaze) Ada 00 Preservati ve free. Saline No Notes: Memoria Flush 0.9% 2-09 (Same as: l 03:00: BD Ada 00 Posiflush) sennosides, No Notes: Edinson david [facility] 2-09 (Same as: l 03:00: Senokot) Ada 00 Docusate No Notes: Memoria 2-09 (Same as: l 03:00: Colace) Raymond 00 (Do Not Crush) Singulair No Notes: Memori a 2-09 (Same l 03:00: as:Singula Raymond 00 ir) Saline No Notes: Memoria Flush 0.9% 2-09 (Same as: l 03:00: BD Raymond 00 Posiflush) sennosides, No Notes: Edinson david [facility] 2-09 (Same as: l 03:00: Senokot) Ada 00 Docusate No Notes: Memoria 2-09 (Same as: l 03:00: Colace) Raymond 00 (Do Not Crush) Singulair No Notes: Memori a 2-09 (Same l 03:00: as:Singula Raymond 00 ir) budesonide- No Notes: Edinson david formoterol 2-08 (Same as: l 160 mcg-4.5 23:00: Symbicort) Ada mcg/inh 00 WASTE: inhalation Aerosol - aerosol Return to with Pharmacy adapter Seroquel No Notes: Memoria 2-08 (Same as: l 23:00: SEROquel) Raymond 00 Levetiracet No Notes: Edinson david am 750 MG 2-08 Same as: l Oral Tablet 23:00: Keppra Herm lori [Keppra] 00 Cymbalta No Notes: Memoria 2-08 (Same as: l 23:00: Cymbalta) Ada 00 (Do Not Crush) Advair No 1 puff, Memoria Diskus 500 2-08 Route: l mcg-50 mcg 23:00: INHALATION H ermann inhalation 00 , Drug powder Form: AERO, Dosing Weight 47.001, kg, BID, Start date: 10/22/15 17:00:00, Duration: 30 day, Stop date: 11/21/15 9:00:00 budesonide- No Notes: Edinson david formoterol 2-08 (Same as: l 160 mcg-4.5 23:00: Symbicort) Raymond mcg/inh 00 WASTE: inhalation Aerosol - aerosol Return to with Pharmacy adapter Seroquel No Notes: Memoria 2-08 (Same as: l 23:00: SEROquel) Ada 00 Levetiracet No Notes: Edinson david am 750 MG 2-08 Same as: l Oral Tablet 23:00: Keppra Herm lori [Keppra] 00 Cymbalta No Notes: Memoria 2-08 (Same as: l 23:00: Cymbalta) Ada 00 (Do Not Crush) Advair No 1 puff, Memoria Diskus 500 2-08 Route: l mcg-50 mcg 23:00: INHALATION H [...] 00 0 5 MG Oral Refill(s) Tablet [Noble 5/325] carvedilol Yes 3.125 mg = M emoria 3.125 mg 2-08 1 tab, PO, l oral tablet 19:51: BID, # 180 Ada 00 tab, 1 Refill(s) dexlansopra No 60 [...] 1 patch, Memoria Clonidine 2-08 TOP, l 0.43547 19:51: qWeek, # Valdez n MG/HR 00 12 patch, Transdermal 0 Patch Refill(s) quetiapine Yes 25 mg = 1 Me moria 25 MG Oral 2-08 tab, PO, l Tablet 19:51: BID, 0 Raymond [Seroquel] 00 Refill(s) linaclotide Yes 145 Memori a 0.145 MG 2-08 microgram l Oral 19:51: = 1 cap, Ada Capsule 00 PO, Daily, [Linzess] 30 minutes [...] tab, PO, l tablet 19:51: TID, PRN Ada 00 for dizziness, # 60 tab, 0 [...] 00 Anxiety, # 30 tab, 0 Refill(s) ibandronic No 150 mg = 1 M [...] 00 0 5 MG Oral Refill(s) Tablet [Noble 5/325] carvedilol Yes 3.125 mg = M [...] 1 patch, Memoria Clonidine 2-08 TOP, l 0.24843 19:51: qWeek, # Valdez n MG/HR 00 12 patch, Transdermal 0 Patch Refill(s) quetiapine Yes 25 mg = 1 Me moria 25 MG Oral 2-08 tab, PO, l Tablet 19:51: BID, 0 Raymond [Seroquel] 00 Refill(s) linaclotide Yes 145 Memori a 0.145 MG 2-08 microgram l Oral 19:51: = 1 cap, Ada Capsule 00 PO, Daily, [Linzess] 30 minutes [...] ia 2-08 Daily, 0 l 19:51: Refill(s) Ada 00 levocetiriz Yes 5 mg = 1 [...] PO, l oral tablet 19:49: Bedtime, # Ada 00 30 tab, 1 Refill(s) Advair Yes [...] BID, 0 l 19:49: Refill(s) Raymond 00 amitriptyli Yes 25 mg = 1 M [...] 10-22 Rate: 10 l 0.154 18:59: ml/hr, Raymond MEQ/ML 00 Infuse Injectable over: 10 Solution hr, Route: IVPB, Dosing Weight 47.001 kg, Total Volume: 100, Infuse at 8 mg / hr for 72 hours for GI bleeding, Start date: 10/22/15 12:59:00, Duration: 72 hr, Stop date: 10/25/15 12:58:00 Sodium No 100 mL, Memoria Chloride 10-22 Rate: 10 l 0.154 18:59: ml/hr, Ada MEQ/ML 00 Infuse Injectable over: 10 Solution hr, Route: IVPB, Dosing Weight 47.001 kg, Total Volume: 100, Infuse at 8 mg / hr for 72 hours for GI bleeding, Start date: 10/22/15 12:59:00, Duration: 72 hr, Stop date: 10/25/15 12:58:00 Saline No Notes: Memoria Flush 0.9% 2-08 (Same as: l 18:55: BD Ada Posiflush) Saline No Notes: Memoria Flush 0.9% 2-08 (Same as: l 18:55: BD Ada Posiflush) levETIRAcet Yes 750mg Take 750 U nivers am (KEPPRA) 7-29 mg by ity of 750 mg 21:44: mouth 2 [place] tablet 53 (two) Medical times Branch daily. etodolac Yes 500mg Take 500 Univ ers (LODINE) 7-29 mg by ity of 500 mg 21:44: mouth 2 [place] tablet 53 (two) Medical times Branch daily. losartan Yes 50mg Take 50 mg Uni vers (COZAAR) 50 7-29 by mouth ity of mg tablet 21:44: daily. [place] 53 Medical Branch carvedilol Yes 6.25mg Take 6.25 Univers (COREG) 7-29 mg by ity of 3.125 mg 21:44: mouth 2 [place] tablet 53 (two) Medical times Branch daily. Fluticasone Yes 1{puff} Inhale 1 Univers -Salmeterol 7-29 Puff every it y of (ADVAIR 21:44: 12 [place] DISKUS) 53 (twelve) Medical 500-50 hours. Branch mcg/dose inhalation disk HYDROcodone Yes 1{tbl} Take 1 Tab Univers -acetaminop 7-29 by mouth ity of hen (NORCO) 21:44: every 6 Fabiano as 10-325 mg 53 (six) Medical tablet hours as Branch needed. montelukast Yes 10mg Take 10 mg Univers (SINGULAIR) 7-29 by mouth ity of 10 mg 21:44: daily. [place] tablet 53 Medical Branch methocarbam Yes 1000mg Take 1,000 Univers ol 7-29 mg by ity of (ROBAXIN) 21:44: mouth [place] 500 mg 53 every Medical tablet evening. Branch BUTALBITAL/ Yes 2{tbl} Take 2 Un chris ASPIRIN/CAF 7-29 Tabs by ity o f FEINE 21:44: mouth as [place] (BUTALBITAL 53 needed. Medic al COMPOUND/ Branch A ORAL) QUEtiapine Yes 25mg Take 25 mg U nivers (SEROQUEL) 7-29 by mouth ity o f 25 mg 21:44: daily. [place] tablet 53 Medical Branch pregabalin Yes 50mg Take 50 mg U nivers (LYRICA) 50 7-29 by mouth ity of mg capsule 21:44: every [place] 53 evening. Medical Branch Dexlansopra Yes 1{tbl} Take 1 Tab Univers zole 7-29 by mouth ity of (DEXILANT) 21:44: daily. [place] 30 mg CpDM 53 Medical Branch esomeprazol Yes 40mg Take 40 mg Univers e (NEXIUM) 7-29 by mouth 2 ity of 40 mg 21:44: (two) [place] capsule 53 times Medical daily. Branch RANITIDINE Yes 1{tbl} Take 1 Tab Univers HCL (ZANTAC 7-29 by mouth ity of 75 ORAL) 21:44: daily. [place] 53 Medical Branch ALPRAZolam Yes .25mg Take 0.25 U nivers (XANAX) 7-29 mg by ity of 0.25 mg 21:44: mouth at [place] tablet 53 bedtime. Medical Branch MECLIZINE Yes Take by Unive rs HCL 7-29 mouth as ity of (MECLIZINE 21:44: [place]. [place] ORAL[place] 53 Medical Branch traZODone Yes 150mg Take 150 Uni vers (DESYREL) 7-29 mg by ity of 150 mg 21:44: mouth at [place] tablet 53 bedtime. Medical Branch hyoscyamine Yes .125mg Take 0.125 Univers (LEVSIN) 7-29 mg by ity of 0.125 mg 21:44: mouth as [place] tablet 53 needed. Medical Branch levothyroxi Yes 125ug Take 125 U nivers ne 7-29 mcg by ity of (SYNTHROID) 21:44: mouth [place] 125 mcg 53 daily. Medical tablet Branch sucralfate Yes 1g Take 1 g Uni vers (CARAFATE) 7-29 by mouth ity o f 1 gram 21:44: as needed. [place] tablet 53 Medical Branch DULoxetine Yes 90mg Take 90 mg U nivers (CYMBALTA) 7-29 by mouth ity o f 30 mg 21:44: daily. [place] capsule 53 Indication Medica l s: Take 60 Branch mg every AM and 30 mg every PM mometasone Yes 1{spray Use 1 Uni vers (NASONEX) 7-29 } [place] in ity of 50 21:44: each [place] mcg/actuati 53 nostril as Me dical on nasal needed. Branch spray Dexlansopra Yes 60mg Take 60 mg Univers zole 7-29 by mouth ity of (DEXILANT) 21:44: daily. [place] 60 mg CpDM 53 [facility] Branch ranitidine Yes 150mg Take 150 Un chris (ZANTAC) 7-29 mg by ity of 150 mg 21:44: mouth [place] tablet 53 daily. Medical Branch Vital Signs Vital Name Observation Time Observation Value Comments Source Systolic blood 2021-04-17 20:14:00 144 mm[Hg] [facility] Diastolic blood 2021-04-17 20:14:00 86 mm[Hg] [facility] Heart rate 2021-04-17 20:14:00 63 /min [facility] Body temperature 2021-04-17 20:14:00 36.61 Laxmi [facility] Res[facility] rate 2021-04-17 20:14:00 18 /min [facility] Oxygen saturation in 2021-04-17 20:14:00 93 /min University of Arterial blood by [facility] Pulse oximetry [place] Body height 2021-04-16 03:29:00 167.6 cm [facility] Body weight 2021-04-16 03:29:00 48.988 kg [facility] BMI 2021-04-16 03:29:00 17.43 kg/m2 [facility] Systolic blood 2021-04-17 20:14:00 144 mm[Hg] [facility] Diastolic blood 2021-04-17 20:14:00 86 mm[Hg] [facility]ive [facility] Heart rate 2021-04-17 20:14:00 63 /min [facility] Body temperature 2021-04-17 20:14:00 36.61 Laxmi [facility] Respiratory rate 2021-04-17 20:14:00 18 /min [facility] Oxygen saturation in 2021-04-17 20:14:00 93 /min University of Arterial blood by [place] [facility] Pulse oximetry Branch Body height 2021-04-16 03:29:00 167.6 cm [facility] [place] [facility] Body weight 2021-04-16 03:29:00 48.988 kg [facility] [place] [facility] BMI 2021-04-16 03:29:00 17.43 kg/m2 [facility] [place] [facility] Systolic blood 2020-03-02 00:23:00 135 mm[Hg] Univer sity of pressure [place] [facility] Diastolic blood 2020-03-02 00:23:00 67 mm[Hg] Unive rsity of pressure [place] [facility] Heart rate 2020-03-02 00:23:00 67 /min [facility] [place] [facility] Respiratory rate 2020-03-02 00:23:00 20 /min Univ ers[facility] [place] [facility] Oxygen saturation in 2020-03-02 00:23:00 99 /min University of Arterial blood by [place] [facility] gina Pulse oximetry Branch Body temperature 2020-03-01 21:25:00 36.33 Laxmi [facility] [place] [facility] Body height 2020-03-01 21:25:00 165.1 cm [facility] [place] [facility] Body weight 2020-03-01 21:25:00 46.72 kg [facility] [place] [facility] BMI 2020-03-01 21:25:00 17.14 kg/m2 [facility] [place] [facility] Systolic blood 2020-03-02 00:23:00 135 mm[Hg] Univer sity of pressure [place] [facility] Diastolic blood 2020-03-02 00:23:00 67 mm[Hg] Unive rsity of pressure [place] [facility] Heart rate 2020-03-02 00:23:00 67 /min [facility] [place] [facility] Respiratory rate 2020-03-02 00:23:00 20 /min Univ ers[facility] [place] [facility] Oxygen saturation in 2020-03-02 00:23:00 99 /min University of Arterial blood by [place] Medi gina Pulse oximetry Branch Body temperature 2020-03-01 21:25:00 36.33 Laxmi [facility] [place] [facility] Body height 2020-03-01 21:25:00 165.1 cm [facility] [place] [facility] Body weight 2020-03-01 21:25:00 46.72 kg [facility] [place] [facility] BMI 2020-03-01 21:25:00 17.14 kg/m2 [facility] [place] [facility] Systolic (mm Hg) 2022-04-11 18:27:00 Edinson rial Ada Diastolic (mm Hg) 2022-04-11 18:27:00 Mem orial Ada Heart Rate 2022-04-11 18:27:00 [facility] Ada Respitory Rate 2022-04-11 18:27:00 Memori al Raymond Height 2022-04-11 18:27:00 160.02 cm [facility] Ada Weight 2022-04-11 18:27:00 [facility] Raymond BMI Calculated 2022-04-11 18:27:00 Memori al Ada Systolic (mm Hg) 2021-11-27 20:49:00 Edinson rial Raymond Diastolic (mm Hg) 2021-11-27 20:49:00 Mem orial Raymond Heart Rate 2021-11-27 20:49:00 [facility] Ada Respitory Rate 2021-11-27 20:49:00 Memori al Raymond Height 2021-11-27 20:49:00 162.56 cm [facility] Ada Weight 2021-11-27 20:49:00 [facility] Ada BMI Calculated 2021-11-27 20:49:00 Memori al Ada Systolic (mm Hg) 2021-03-29 18:46:00 Edinson rial Ada Diastolic (mm Hg) 2021-03-29 18:46:00 Mem orial Raymond Heart Rate 2021-03-29 18:46:00 [facility] Raymond Respitory Rate 2021-03-29 18:46:00 Memori al Raymond Systolic (mm Hg) 2019-10-06 20:08:00 Edinson rial Raymond Diastolic (mm Hg) 2019-10-06 20:08:00 Mem orial Ada Heart Rate 2019-10-06 20:08:00 [facility] Raymond Respitory Rate 2019-10-06 20:08:00 Memori al Ada Height 2019-10-06 20:08:00 162.56 cm [facility] Raymond Weight 2019-10-06 20:08:00 [facility] Ada BMI Calculated 2019-10-06 20:08:00 Memori al Raymond Weight 2019-03-25 18:58:00 [facility] Ada BMI Calculated 2019-03-25 18:58:00 Memori al Raymond Height 2019-03-25 18:58:00 167.64 cm [facility] Raymond Systolic (mm Hg) 2019-03-25 18:58:00 Edinson rial Ada Diastolic (mm Hg) 2019-03-25 18:58:00 Mem orial Raymond Heart Rate 2019-03-25 18:58:00 [facility] Ada Respitory Rate 2019-03-25 18:58:00 Memori al Ada BMI Calculated 2019-01-21 18:35:00 Memori al Raymond Weight 2019-01-21 18:35:00 [facility] Ada Height 2019-01-21 18:35:00 167.64 cm [facility] Ada Respitory Rate 2019-01-21 18:35:00 Memori al Ada Heart Rate 2019-01-21 18:35:00 [facility] Ada Systolic (mm Hg) 2019-01-21 18:35:00 Edinson rial Ada Diastolic (mm Hg) 2019-01-21 18:35:00 Mem orial Ada BMI Calculated 2018-12-30 14:25:00 Memori al Ada Weight 2018-12-30 14:25:00 [facility] Raymond Height 2018-12-30 14:25:00 167.64 cm [facility] Ada Systolic (mm Hg) 2018-12-30 14:25:00 Edinson rial Raymond Diastolic (mm Hg) 2018-12-30 14:25:00 Mem orial Ada Respitory Rate 2018-12-30 14:25:00 Memori al Raymond Heart Rate 2018-12-30 14:25:00 [facility] Ada Systolic (mm Hg) 2018-10-19 22:38:00 Edinson rial Ada Diastolic (mm Hg) 2018-10-19 22:38:00 Mem orial Raymond Heart Rate 2018-10-19 22:38:00 [facility] Ada Respitory Rate 2018-10-19 22:38:00 Memori al Raymond Height 2018-10-19 22:38:00 167.64 cm [facility] Raymond Weight 2018-10-19 22:38:00 [facility] Ada BMI Calculated 2018-10-19 22:38:00 Memori al Raymond Temperature Oral (F) 2018-02-06 17:35:00 99.2 F [facility] Raymond Heart Rate 2018-02-06 17:35:00 [facility] Ada Respitory Rate 2018-02-06 17:35:00 Memori al Ada Systolic (mm Hg) 2018-02-06 17:35:00 Edinson rial Ada Diastolic (mm Hg) 2018-02-06 17:35:00 Mem orial Raymond Heart Rate 2018-02-06 12:40:00 [facility] Ada Respitory Rate 2018-02-06 12:40:00 Memori al Raymond Systolic (mm Hg) 2018-02-06 12:40:00 Edinson rial Ada Diastolic (mm Hg) 2018-02-06 12:40:00 Mem orial Raymond Temperature Oral (F) 2018-02-06 12:40:00 98.5 F [facility] Ada Respitory Rate 2018-02-06 08:12:00 Memori al Raymond Heart Rate 2018-02-06 08:12:00 [facility] Raymond Temperature Oral (F) 2018-02-06 08:12:00 97.8 F [facility] Ada Systolic (mm Hg) 2018-02-06 08:12:00 Edinson rial Raymond Diastolic (mm Hg) 2018-02-06 08:12:00 Mem orial Raymond Height 2018-02-05 02:47:00 167.64 cm [facility] Raymond Weight 2018-02-05 02:47:00 [facility] Ada BMI Calculated 2018-02-05 02:47:00 Memori al Ada BMI Calculated 2018-02-04 15:52:00 Memori al Raymond Weight 2018-02-04 15:52:00 [facility] Ada Height 2018-02-04 15:52:00 167.64 cm [facility] Raymond Respitory Rate 2015-10-28 14:00:00 Memori al Raymond Systolic (mm Hg) 2015-10-28 14:00:00 Edisnon rial Raymond Diastolic (mm Hg) 2015-10-28 14:00:00 Mem orial Ada Temperature Oral (F) 2015-10-28 14:00:00 98.1 F [facility] Raymond Heart Rate 2015-10-28 14:00:00 [facility] Raymond Respitory Rate 2015-10-28 10:00:00 Memori al Raymond Systolic (mm Hg) 2015-10-28 10:00:00 Edinson rial Ada Diastolic (mm Hg) 2015-10-28 10:00:00 Mem orial Raymond Heart Rate 2015-10-28 10:00:00 [facility] Ada Temperature Oral (F) 2015-10-28 10:00:00 97.9 F [facility] Raymond Respitory Rate 2015-10-28 06:00:00 Perla latham Raymond Heart Rate 2015-10-28 06:00:00 [facility] Ada Temperature Oral (F) 2015-10-28 06:00:00 97.6 F [facility] Raymond Systolic (mm Hg) 2015-10-28 06:00:00 Edinson lares Ada Diastolic (mm Hg) 2015-10-28 06:00:00 Renetta orial Raymond Height 2015-10-27 02:52:00 152.4 cm [facility] Height 2015-10-22 18:39:00 165.1 cm [facility] Raymond Weight 2015-10-22 18:39:00 [facility] Raymond BMI Calculated 2015-10-22 18:39:00 Perla latham Ada Procedures Procedure Date / Time Performing Clinician Source Performed BASIC METABOLIC PANEL 2021-04-16 11:16:00 Dallas Ramírez [facility] (NA, K, CL, CO2, GLUCOSE, Medica l Branch BUN, CREATININE, CA) ADC,CLC OR LCC ONLY - 2021-04-15 23:26:00 Avani Ordonez [facility] INFLUENZA A & B DIRECT Medical B ranch ANTIGEN CT CHEST PULMONARY 2021-04-15 22:54:30 Avani Ordonez [facility] ANGIOGRAM Medical Branch COVID-19 (ID NOW RAPID 2021-04-15 21:15:00 Avani Ordonez [facility] TESTING) Medical Branch LAB ONLY COVID 2021-04-15 21:15:00 Avani Ordonez [facility] INTERPRETATION [facility] LACTIC ACID WHOLE BLOOD 2021-04-15 21:11:00 Avani Ordonez [facility] Medical Branch MAGNESIUM 2021-04-15 21:10:00 Avani Ordonez [facility] COMP. METABOLIC PANEL 2021-04-15 21:10:00 Avani Ordonez [facility] ([id number]) Medical Branch CBC WITH DIFF 2021-04-15 21:10:[address]vani Ordone[address] [facility] GLYCOSYLATED HEMOGLOBIN 2021-04-15 21:10:00 Diego Herrera [facility] (A1C) [facility] PROTHROMBIN TIME / INR 2021-04-15 21:10:00 Avani Ordonez [facility] D-DIMER 2021-04-15 21:10:00 Avani Ordonez [place] [facility] ACTIVATED PARTIAL 2021-04-15 21:10:00 Avani Ordonez [facility] THRMPLAS SUKI [facility] N-TERMINAL PRO-BNP 2021-04-15 21:10:00 Avani Ordonez [facility] HB ECG ROUTINE & RHYTHM 2021-04-15 21:00:18 Avani Ordonez [facility] TROPONIN I 2020-03-01 22:18:00 Keren Mares [facility] HEPATIC FUNCTION PANEL 2020-03-01 22:18:00 [id number] (ALB,T.PRO,BILI [facility] Branch T,BU/BC,ALT,AST,ALK PHOS) BASIC METABOLIC PANEL 2020-03-01 22:18:00 Keren Mares [facility] (NA, K, CL, CO2, GLUCOSE, Medica l Branch BUN, CREATININE, CA) CBC WITH DIFFERENTIAL 2020-03-01 22:18:00 Keren Mares [facility] N-TERMINAL PRO-BNP 2020-03-01 22:18:00 [facility]ren Mares [facility] COVID-19 (ID NOW RAPID 2020-03-01 22:18:00 Keren Mares [facility] TESTING) [facility] NOTICE OF PRIVACY 2020-03-01 21:12:20 Doctor Unassigned, No Univ [facility] PRACTICES Name Medical Branch CONSENT/REFUSAL FOR 2020-03-01 21:11:40 [facility]assigned, [facility]AT[facility] Name [facility] Appendectomy [facility] Arthroscopy of knee [facility] pearson Elbow maneuver [facility] Hysterectomy [facility] Repair of shoulder [facility] Encounters Start End Encounter Admission Attending Care Care Encounter Source Date/Time Date/Time Type Type Clinicians Facility Department ID 2022-07-23 2022-07-23 Outpatient MHIE IE [id number] Memoria 13:45:00 13:45:00 24 l Raymond 2022-04-11 2022-04-12 Outpatient nullFlavo MNA [id number] Memoria 18:00:00 04:59:59 r Neurology 23 l Klein Andrade 2022-04-11 2022-04-11 [facility] [id number] 13:00:00 23:59:59 Triston 23 Ramsey 2022-04-11 2022-04-11 Outpatient MHIE IE [id number] Memoria 13:00:00 13:00:00 23 l Raymond 2022-03-18 2022-03-18 Ambulatory nullFlavo MNA [id number] Memoria 19:00:00 19:00:00 Pre-Reg r Neurology 22 l Kelin Andrade 2022-03-18 2022-03-18 Outpatient MHIE IE [id number] Memoria 14:00:00 14:00:00 22 nicholas Andrade 2022-03-18 2022-03-18 [facility] [id number] 14:00:00 14:00:00 Triston 22 Ramsey 2021-11-27 2021-11-28 Outpatient nullFlavo MNA [id number] Memoria 20:00:00 04:59:59 r Neurology 21 l Kelin Wallann 2021-11-27 2021-11-27 [facility] [id number] 15:00:00 23:59:59 Triston 21 Ramsey 2021-11-27 2021-11-27 Ambulatory nullFlavo MNA [id number] Memoria 19:45:00 19:45:00 Pre-Reg r Neurology 20 l Kelin Wallann 2021-11-27 2021-11-27 Outpatient MHIE IE [id number] Memoria 15:00:00 15:00:00 21 nicholas Andrade 2021-11-27 2021-11-27 Outpatient MHIE IE [id number] Memoria 14:45:00 14:45:00 20 nicholas Andrade 2021-11-27 2021-11-27 Outpatient Henrietta [facility] [id number] 14:45:00 14:45:00 Triston 20 Ramsey 2021-05-06 2021-05-06 Ambulatory nullFlavo MNA [id number] Memoria 19:00:00 19:00:00 Pre-Reg r Neurology 19 l Kelin Andrade 2021-05-06 2021-05-06 Ambulatory nullFlavo MNA [id number] Memoria 19:00:00 19:00:00 Pre-Reg r Neurology 19 l Kelin Andrade 2021-05-06 2021-05-06 Outpatient MHIE MHIE [id number] Memoria 14:00:00 14:00:00 19 l Ada 2021-05-06 2021-05-06 [facility] [id number] 14:00:00 14:00:00 Triston 19 Ramsey 2021 2021 Transition Tiffanie Snyder [id number] 00:00:00 00:00:00 of Care Dakotah Zamoranoy [id number] [place] [id number] [id number] [facility] 2021 2021 Transition Tiffanie Snyder 1.2.840.114 [id number] [facility] 00:00:00 00:00:00 of Care Dakotah A Dwyer [id number] ity of [place] 4.2.7.2.686 [place] [id number] [facility] 403 Branch 2021-04-15 2021-04-17 [facility] Avani Ordonez 1.2.840.1 [id number] [facility] 15:40:00 20:05:00 Encounter Sree Ramos [id number] [facility] 4.2.7.2.686 Torrey Herman [id number] [facility] 094 Branch 2021-04-15 2021-04-17 [facility] 1.2.840.1 [id number] 15:40:00 20:05:00 Encounter Sree Ramos [id number] [facility] [id number] [id number] 2021-04-15 2021-04-15 Emergency X Avani ORDONEZ [facility] ERT [id number] Univers 15:40:00 15:40:00 [facility] 2021-04-04 2021-04-04 Ambulatory nullFlavo MNA [id number] Memoria 19:00:00 19:00:00 Pre-Reg r Neurology 17 l Kelin Andrade 2021-04-04 2021-04-04 Ambulatory nullFlavo MNA [id number] Memoria 19:00:00 19:00:00 Pre-Reg r Neurology 17 l Kelin Andrade 2021-04-04 2021-04-04 Outpatient MHIE MHIE [id number] Memoria 14:00:00 14:00:00 17 nicholas Andrade 2021-04-04 2021-04-04 [id number] 14:00:00 14:00:00 [place] 17 Ramsey 2021-03-29 2021-03-30 Outpatient nullFlavo MNA [id number] Memoria 18:00:00 04:59:59 r Neurology 18 l Kelin Andrade 2021-03-29 2021-03-30 Outpatient nullFlavo MNA [id number] Memoria 18:00:00 04:59:59 r Neurology 18 l Kelin Wallann 2021-03-29 2021-03-29 Outpatient MORGAN [facility]rest[facility] [id number] 13:00:00 23:59:59 Tr[place] 18 Ramsey 2021-03-29 2021-03-29 Outpatient MHIE MHIE [id number] Memoria 13:00:00 13:00:00 18 nicholas Andrade 2021-02-20 2021-02-20 Ambulatory nullFlavo MNA [id number] Memoria 19:15:00 19:15:00 Pre-Reg r Neurology 16 l Kelin Andrade 2021-02-20 2021-02-20 Ambulatory nullFlavo MNA [id number] Memoria 19:15:00 19:15:00 Pre-Reg r Neurology 16 l Kelin Andrade 2021-02-20 2021-02-20 Outpatient MHIE IE [id number] Memoria 14:15:00 14:15:00 16 nicholas Andrade 2021-02-20 2021-02-20 [facility] [id number] 14:15:00 14:15:00 Triston 16 Ramsey 2021-01-23 2021-01-23 Ambulatory nullFlavo MNA [id number] Memoria 19:00:00 19:00:00 Pre-Reg r Neurology 13 nicholas Andrade 2021-01-23 2021-01-23 Ambulatory nullFlavo MNA [id number] Memoria 19:00:00 19:00:00 Pre-Reg r Neurology 13 incholas Andrade 2021-01-23 2021-01-23 Outpatient MHIE MHIE [id number] Memoria 14:00:00 14:00:00 13 nicholas Andrade 2021-01-23 2021-01-23 Outpatient [facility] [id number] 14:00:00 14:00:00 Triston 13 Ramsey 2020-12-06 2020-12-06 Ambulatory nullFlavo MNA [id number] Memoria 20:30:00 20:30:00 Pre-Reg r Neurology 15 l Kelin Andrade 2020-12-06 2020-12-06 Ambulatory nullFlavo MNA [id number] Memoria 20:30:00 20:30:00 Pre-Reg r Neurology 15 l Kelin Andrade 2020-12-06 2020-12-06 Outpatient MHIE IE [id number] Memoria 15:30:00 15:30:00 15 nicholas Andrade 2020-12-06 2020-12-06 Out[facility] [id number] 15:30:00 15:30:00 Tr[place] 15 Ramsey 2020-11-15 2020-11-16 Outpatient nullFlavo MNA [id number] Memoria 21:15:00 05:59:59 r Neurology 14 l Kelin Andrade 2020-11-15 2020-11-16 Outpatient nullFlavo MNA [id number] Memoria 21:15:00 05:59:59 r Neurology 14 l Kelin Andrade 2020-11-15 2020-11-15 Outpatient [facility] [id number] 15:15:00 23:59:59 Triston 14 Ramsey 2020-11-15 2020-11-15 Outpatient MHIE MHIE [id number] Memoria 15:15:00 15:15:00 14 l Raymond 2020-10-22 2020-10-24 Outside nullFlavo MNA [id number] Memoria 21:23:00 05:59:59 Medical r Neurology 03 l Records Kelin Andrade 2020-10-22 2020-10-24 Outside nullFlavo MNA [id number] Memoria 21:23:00 05:59:59 Medical r Neurology 03 l Records Kelin Andrade 2020-10-22 2020-10-23 [facility] [id number] 15:23:00 23:59:59 Samuel 2020-07-26 2020-07-27 Outpatient nullFlavo MNA [id number] Memoria 20:00:00 05:59:59 r Neurology 12 l Kelin Andrade 2020-07-26 2020-07-27 Outpatient nullFlavo MNA [id number] Memoria 20:00:00 05:59:59 r Neurology 12 l Kelin Andrade 2020-07-26 2020-07-26 Outpatient Henrietta [facility] [id number] 14:00:00 23:59:59 Triston 12 Ramsey 2020-07-26 2020-07-26 Outpatient MHIE MHIE [id number] Memoria 14:00:00 14:00:00 12 nicholas Andrade 2020-04-05 2020-04-06 Outpatient nullFlavo MNA [id number] Memoria 19:00:00 04:59:59 r Neurology 11 l Kelin Andrade 2020-04-05 2020-04-06 Outpatient nullFlavo MNA [id number] Memoria 19:00:00 04:59:59 r Neurology 11 l Kelin Andrade 2020-04-05 2020-04-05 Outpatient Henrietta [facility] MISCHER [id number] 14:00:00 23:59:59 Triston 11 [facility] 2020-04-05 2020-04-05 Ambulatory nullFlavo MNA [id number] Memoria 19:00:00 19:00:00 Pre-Reg r Neurology 10 l Kelin Wallann 2020-04-05 2020-04-05 Ambulatory nullFlavo MNA [id number] Memoria 19:00:00 19:00:00 Pre-Reg r Neurology 10 l Kelin Wallann 2020-04-05 2020-04-05 Outpatient MHIE MHIE [id number] Memoria 14:00:00 14:00:00 11 l Ada 2020-04-05 2020-04-05 Outpatient MHIE MHIE [id number] Memoria 14:00:00 14:00:00 10 nicholas Ada 2020-04-05 2020-04-05 Outpatient MORGAN Shrestha MHMISCHER [id number] 14:00:00 14:00:00 Triston 10 [facility] 2020-03-01 2020-03-01 Emergency X [facility] ERT [id number] Univers 16:34:28 19:52:[address] [facility] 2020-03-01 2020-03-01 Emergency [facility] 1.2.840.114 [id number] [facility] 16:34:28 19:52:00 Keren Puckett [id number] [facility] [id number] [facility] [id number] [address] 2020-03-01 2020-03-01 Emergency [facility] [id number] 16:34:28 19:52:00 Keren Puckett [id number] [place] [address] [place] [address] [id number] [facility] 2019-10-06 2019-10-07 Outpatient nullFlavo MNA [id number] Memoria 19:15:00 05:59:59 r Neurology 09 l Kelin Andrade 2019-10-06 2019-10-07 Outpatient nullFlavo MNA [id number] Memoria 19:15:00 05:59:59 r Neurology 09 l Kelin Andrade 2019-10-06 2019-10-06 Outpatient MORGAN Shrestha MHMISCHER [id number] 13:15:00 23:59:59 Triston 09 Ramsey 2019-10-06 2019-10-06 Outpatient MHIE MHIE [id number] Memoria 13:15:00 13:15:00 09 nicholas Raymond 2019-07-29 2019-07-29 Outpatient MHIE MHIE [id number] Memoria 13:00:00 13:00:00 08 nicholas Raymond 2019-07-29 2019-07-29 Outpatient MHIE MHIE [id number] Memoria 13:00:00 13:00:00 08 nicholas Raymond 2019-07-01 2019-07-01 Ambulatory nullFlavo MNA [id number] Memoria 21:00:00 21:00:00 Pre-Reg r Neurology 08 nicholas Neville Raymond 2019-07-01 2019-07-01 [facility] [id number] 16:00:00 16:00:00 Triston 08 Ramsey 2019-03-31 2019-03-31 Ambulatory nullFlavo MNA [id number] Memoria 20:15:00 20:15:00 Pre-Reg r Neurology 03 nicholas Neville Ada 2019-03-31 2019-03-31 Ambulatory nullFlavo MNA [id number] Memoria 20:15:00 20:15:00 Pre-Reg r Neurology 03 nicholas Neville Raymond 2019-03-31 2019-03-31 Outpatient MHIE IE [id number] Memoria 15:15:00 15:15:00 03 nicholas Ada 2019-03-31 2019-03-31 Outpatient Henri[facility] [id number] 15:15:00 15:15:00 Triston 03 Ramsey 2019-03-25 2019-03-26 Outpatient nullFlavo MNA [id number] Memoria 18:00:00 04:59:59 r Neurology 07 nicholas Mcminn Raymond 2019-03-25 2019-03-26 Outpatient nullFlavo MNA [id number] Memoria 18:00:00 04:59:59 r Neurology 07 l Mcminn Ada 2019-03-25 2019-03-25 Outpatient IRVIN [facility] [id number] 13:00:00 23:59:59 Triston 07 Ramsey 2019-03-25 2019-03-25 Outpatient MHIE MHIE [id number] Memoria 13:00:00 13:00:00 07 nicholas Ada 2019-02-09 2019-02-09 Ambulatory nullFlavo MNA [id number] Memoria 19:45:00 19:45:00 Pre-Reg r Neurology 05 l Kelin Andrade 2019-02-09 2019-02-09 Ambulatory nullFlavo MNA [id number] Memoria 19:45:00 19:45:00 Pre-Reg r Neurology 05 nicholas Neville Raymond 2019-02-09 2019-02-09 Outpatient MHIE IE [id number] Memoria 14:45:00 14:45:00 05 nicholas Raymond 2019-02-09 2019-02-09 [facility] M[facility]ER [id number] 14:45:00 14:45:00 Triston 05 Ramsey 2019-01-21 2019-01-22 Outpatient nullFlavo MNA [id number] Memoria 18:15:00 04:59:59 r Neurology 06 nicholas Mcminn Raymond 2019-01-21 2019-01-22 Outpatient nullFlavo MNA [id number] Memoria 18:15:00 04:59:59 r Neurology 06 nicholas Mcminn Raymond 2019-01-21 2019-01-21 [facility]ER [id number] 13:15:00 23:59:59 Triston Stephanie Ramsey 2019-01-21 2019-01-21 Outpatient MHIE IE [id number] Memoria 13:15:00 13:15:00 06 nicholas Andrade 2018-12-30 2018-12-31 Outpatient nullFlavo MNA [id number] Memoria 14:00:00 04:59:59 r Neurology 04 nicholas Mcminn Raymond 2018-12-30 2018-12-31 Outpatient nullFlavo MNA [id number] Memoria 14:00:00 04:59:59 r Neurology 04 nicholas Mcminn Raymond 2018-12-30 2018-12-30 Outpatient SUZIE ShresthaMISCHER MISCHER [id number] 09:00:00 23:59:59 Triston Arturo Ramsey 2018-12-30 2018-12-30 Outpatient MHIE IE [id number] Memoria 09:00:00 09:00:00 Arturo Andrade 2018-10-19 2018-10-20 Outpatient nullFlavo MNA [id number] Memoria 22:00:00 05:59:59 r Neurology 02 nicholas Andrade 2018-10-19 2018-10-20 Outpatient nullFlavo MNA [id number] Memoria 22:00:00 05:59:59 r Neurology 02 nicholas Neville Ada 2018-10-19 2018-10-[address] [facility] [id number] 16:00:00 23:59:59 Triston Sona Mustafa 2018-10-19 2018-10-19 Outpatient MHIE MHIE [id number] Memoria 16:00:00 16:00:00 02 nicholas Andrade 2018-09-17 2018-09-19 Phone nullFlavo MNA [id number] Memoria 21:30:00 05:59:59 Message r Neurology 01 l Kelin Andrade 2018-09-17 2018-09-19 Phone nullFlavo MNA [id number] Memoria 21:30:00 05:59:59 Message r Neurology 01 l Kelin Andrade 2018-09-17 2018-09-18 Outpatient MHMISCHER MHMISCHER [id number] 15:30:00 23:59:59 2018-08-20 2018-08-22 Phone nullFlavo MNA [id number] Memoria 19:01:00 05:59:59 Message r Neurology 00 l Kelin Andrade 2018-08-20 2018-08-22 Phone nullFlavo MNA [id number] Memoria 19:01:00 05:59:59 Message r Neurology 00 l Kelin Ada 2018-08-20 2018-08-21 Outpatient MHMISCHER MHMISCHER [id number] 13:01:00 23:59:59 2018-02-04 2018-02-06 Inpatient nullFlavo [facility] [id number] Memoria 08:21:00 21:15:00 r Raymond [address] [place] [address] 2018-02-04 2018-02-06 Inpatient nullFlavo [facility] [id number] Memoria 08:21:00 21:15:00 r Raymond [address] [place] [address] 2018-02-04 2018-02-06 Outpatient [place] [id number] 03:21:00 16:15:00 Carlos Montano 2015-10-22 2015-10-28 Inpatient [facility] [id number] Memoria 18:39:00 17:47:00 r Raymond [address] [facility] ([place], [place]) 2015-10-22 2015-10-28 Inpatient [facility] [id number] Memoria 18:39:00 17:47:[address] [facility] ([place] [place] 2015-10-22 2015-10-28 [id number] 12:39:00 11:47:00 Moe 39 Antoni Results Test Description Test Time Test Comments Results Result Sourc e Comments [facility] InterpretationInte [facility] 23:44:30 rpretation/Recomme Branch ndations:Molecular NAAT Tests for Active Infection with the SARS-CoV-2 Virus:The current test result is positive for the SARS-CoV-2 virus that causes COVID-19 illness. The patient should be considered infectious at this time. The patient may be considered no longer infectious when it has been at least 10 days since symptom onset, the patient has been afebrile for 24 hours without the use of fever-reducing medications, AND other symptoms of COVID-19 are improving. However, in patients who have been severely ill with COVID-19 or are severely immunocompromised, isolation up to 20 days after symptom onset is recommended. Asymptomatic patients are considered infectious for the first 10 days subsequent to the initial positive test result. From the onset of symptoms, if any, this result is likely to remain positive up to 2-4 weeks. Tests for IgM and/or IgG Antibodies to the SARS-CoV-2 Virus:Testing for IgM and IgG antibodies approximately 3 weeks after illness onset will likely indicate if the patient has produced antibodies to the SARS-CoV-2 virus. However, some patients may take longer to develop detectable antibodies, while others infected with SARS-CoV-2 may never develop antibodies, particularly those who have had mild or asymptomatic illness. Of note, if the patient has been vaccinated earlier than 1-2 weeks prior to antibody testing, any positive SARS-CoV-2 IgG antibody result is likely due to vaccination. The specific duration and strength of immunity from SARS-CoV-2 IgG antibodies is highly variable between individuals and is dependent on a variety of factors, including infection vs. vaccination response, initial infection severity, the strength of the patient's own immune system, and the variants to which the patient has been exposed. ? Interpretation Result Comments:These interpretation comments are based upon all COVID-19 testing the patient has had at [facility], including molecular NAAT testing (more commonly known as PCR testing and Rapid ID Now testing) and antibody testing. It does not take into account any testing that a patient has had outside of the [facility] medical record. [facility]ORATORY SERVICESCOVID XunqnciHFIE-FxU-5 Rapid ID NOW (no units) ? ? Date ? Value ? 04/15/2021 ? Positive (A) ? ? ? 03/01/2020 ? Not Detected ? [facility] Basic Metabolic Panel (NA, K, CL, CO2, GLUCOSE, BUN, 2021-04 12:21:50 CREATININE, [place]) Test Item Value Reference Range Interpretation Comme nts NA (test code = 4226862576) 139 mmol/L 135-145 K (test code = 9947562626) 4.3 mmol/L 3.5-5.0 CL (test code = 5081802134) 109 mmol/L 98-108 H CO2 TOTAL (test code = 9902413188) 26 mmol/L 23-31 AGAP (test code = 5152524811) 2-16 BUN (test code = 4368100759) 15 mg/dL 7-23 GLUCOSE (test code = 8217042693) 74 mg/dL 70-110 CREATININE (test code = 0.59 mg/dL 0.50-1.04 7123495317) CALCIUM (test code = 0742698365) 7.4 mg/dL 8.6-10.6 L eGFR (test code = 8798744873) mL/min/1.73m2 DREAD (test code = DREAD) Association of Glomerular Filtration Rate (GFR) and Staging of Kidney Disease* + +-------- + ------+| GFR (mL/min/1.73 m2) ?| With Kidney Damage ?| ?Without Kidney Damage+ +-- + +| ?>90 ?| ?Stage one ?| ? Normal ?+ +------- + -------+| ?60-89 ?| ?Stage two ?| ? Decreased GFR ? + +-------- + ------+| ?30-59 ?| ?Stage three ?| ? Stage three ? + +-------- + ------+| ?15-29 ?| ?Stage four ? | ? Stage four ?+ +------- + -------+| ?<15 (or dialysis) ? ?| ?Stage five ? | ? Stage five ?+ +------- + -------+ *Each stage assumes the associated GFR level has been in effect for at least three months. ?Stages 1 to 5, with or without kidney disease, indicate chronic kidney disease. Notes: Determination of stages one and two (with eGFR >59mL/min/1.73 m2) requires estimation of kidney damage for at least three months as defined by structural or functional abnormalities of the kidney, manifested by either:Pathological abnormalities or Markers of kidney damage (including abnormalities in the composition of the blood or urine or abnormalities in imaging tests). Lab Interpretation (test code = Abnormal 87829-9) [facility] (A1C)2021-04-16 11:45:40 Test Item Value Reference Range Interpretation Comments HGB A1C (test code = 5.8 % 4.0-5.7 H 4548-4) DREAD (test code = DREAD) Reference RangesNormal: <5.7%Prediabetes: 5.7 - 6.4%Diabetes: > 6.5% Lab Interpretation (test Abnormal code = 67469-7) [facility] P[facility]MON[facility] [id number] 04:37:45 No acute pulmonary embolism identified. Apparent filling defect in theright lower lobe segmental pulmonary artery is suspected to representimmediately adjacent soft tissue, possibly a lymph node. Leftshoulder reverse arthroplasty changes. The most medial scapular screwappears to erode into a left lateral upper rib, immediately subjacent towhich is soft tissue/pleural thickening and impression upon the adjacentlung. No pneumothorax identified. Additionally, though limited by severebeam hardening artifact, there appears to be expansile and osteolyticchanges in the scapula around the construct. Thiscould be related toadverse level tissue reaction/particle disease. Incidental finding of acute, minimally displaced posterior right rib 9fracture. Partially visualized dilated extrahepatic biliary duct. If there is aclinical concern for biliary obstruction, further evaluation with dedicatedCT abdomen pelvis or MRCP is recommended. Dilated main pulmonary trunk, which can be seen with increased pulmonarypressure. Preliminary findings regarding possible right lower lobe segmentalpulmonary embolism werediscussed with Dr. Kendall at 6:10 PM on 04/15/2021. Preliminary Report Dictated by Resident: Wayne Richardson MD., have reviewed this study and agree with the abovereport.PROCEDURE: CT CHEST WITH CONTRAST- CHEST PE PROTOCOL CLINICAL INDICATION: PE suspected, intermediate prob, positive D-dimer ? Comparison: ?None TECHNIQUE: Volumetric helical CT angiogram was performed of the chest (sadia gapices to bases) with IV contrast. Images were reconstructed at 1.25 mmslice thickness. Corresponding axial, sagittal and coronal MIP images wereperformed. Axial MIPs and coronal and sagittal MPR images were generatedand reviewed.. FINDINGS: HEART AND GREAT VESSELS: The opacification of the pulmonaryvasculature isappropriate. Small nonocclusive, eccentrically positioned filling defect isseen in theright lower lobe segmental branch (7:56, 11:74). The pulmonarytrunk is mildly dilated, measuring 3.5cm in diameter. The thoracic aorta is normal in caliber. Atherosclerotic calcified plaquesaffect theaorta and the ostia of the great vessels. Borderline global cardiomegaly. No pericardial abnormalities areidentified. The RV to LV is normal. MEDIASTINUM AND LOWER NECK: The evaluation of the upper mediastinum islimited due to extensive streak artifact from left shoulder arthroplastyhardware. No central airway lesions are detected. The esophagus is withinnormal limits. The included thyroid gland appears normal. LYMPH NODES: No evidence of intrathoracic lymphadenopathy. LUNGS AND PLEURA: Mild dependent atelectasis in the posterior lower lungs.No suspicious nodules. No pleural abnormality detected. VISUALIZED UPPER ABDOMEN: A 13 mm exophytic hypoattenuating lesion at theleft superior renal pole withsimple fluid attenuation, likely a cyst. Thecommon duct measures 11 mm in diameter, mildly dilated for patient's age. OSSEOUS STRUCTURES AND SOFT TISSUES: Left shoulder reverse arthroplastychanges. Themost medial acetabular screw appears to erode into a leftlateral upper rib (7:29). Severe right shoulder osteoarthrosis. Rightposterior rib 9 minimally displaced acute fracture. Gamb, Radiant Results Inft User - 04/15/2021 11:38 PM CDT PROCEDURE: CT CHEST WITH CONTRAST- CHEST PE PROTOCOLCLINICAL INDICATION: PE suspected, intermediate prob, positive D-dimer Comparison: NoneTECHNIQUE: Volumetric helical CT angiogram was performed of the chest (lungapices to bases) with IV contrast. Images were reconstructed at 1.25 mmslice thickness. Corresponding axial, sagittal and coronal MIP images wereperformed. Axial MIPs and coronal and sagittal MPR images were generatedand reviewed..FINDINGS:HEART AND GREAT VESSELS: The opacification of the pulmonary vasculature isappropriate. Small nonocclusive, eccentrically positioned filling defect isseen in the right lower lobe segmental branch (7:56, 11:74). The pulmonarytrunk is mildly dilated, measuring 3.5 cm in diameter.The thoracic aorta is normal in caliber. Atherosclerotic calcified plaquesaffect the aorta and the ostia of the great vessels.Borderline global cardiomegaly. No pericardial abnormalities areidentified. The RV to LV is normal. MEDIASTINUM AND LOWER NECK: The evaluation of the upper mediastinum islimited due to extensive streak artifact from left shoulder arthroplastyhardware. No central airway lesions are detected. The esophagus is withinnormal limits. The included thyroid gland appears normal.LYMPH NODES: No evidence of intrathoracic lymphadenopathy.LUNGS AND PLEURA: Mild dependentatelectasis in the posterior lower lungs.No suspicious nodules. No pleural abnormality detected.VISUALIZED UPPER ABDOMEN: A 13 mm exophytic hypoattenuating lesion at theleft superior renal pole with simple fluid attenuation, likely a cyst. Thecommon duct measures 11 mm in diameter, mildly dilated for patient's age.OSSEOUS STRUCTURES AND SOFT TISSUES: Left shoulder reverse arthroplastychanges. The most medial acetabular screw appears to erode into a leftlateral upper rib (7:29). Severe right shoulderosteoarthrosis. Rightposterior rib 9 minimally displaced acute fracture.IMPRESSIONNo acute pulmonaryembolism identified. Apparent filling defect in theright lower lobe segmental pulmonary artery is suspected to representimmediately adjacent soft tissue, possibly a lymph node.Left shoulder reverse arthroplasty changes. The most medial scapular screwappears to erode into a left lateral upper rib, immediately subjacent towhich is soft tissue/pleural thickening and impression upon the adjacentlung. No pneumothorax identified. Additionally, though limited by severebeam hardening artifact, there appearsto be expansile and osteolyticchanges in the scapula around the construct. This could be related toadverse level tissue reaction/particle disease.Incidental finding of acute, minimally displaced posterior right rib 9fracture.Partially visualized dilated extrahepatic biliary duct. If there is aclinicalconcern for biliary obstruction, further evaluation with dedicatedCT abdomen pelvis or MRCP is recommended.Dilated main pulmonary trunk, which can be seen with increased pulmonarypressure.Preliminary findings regarding possible right lower lobe segmentalpulmonary embolism were discussed with Dr. Kendall at 6:10 PM on 04/15/2021.Preliminary Report Dictated by Resident: Wayne Fox MD., have reviewed this study and agree with the abovereport. [facility],CLC OR L[facility] ONLY - INFLUENZA A & B DIRECT [id number] 23:53:22 Test Item Value Reference Range Interpretation Comments Influenza A (test code = 58875-4) Negative Negative Influenza B (test code = 43248-2) Negative Negative Lab Interpretation (test code = Normal 30436-9) [facility] DistrictaPTT2021-08-02 23:33:43 Test Item Value Reference Range Interpretation Comments APTT Patient (test See_Comment [Automat ed code = 3173-2) message] The system which generated this result transmitted reference range : 23 - 38 Seconds . The reference range was not used to interpr et this result as normal/abnormal . DREAD (test code = DREAD) The [facility] patient population mean normal value for aPTT is 30 seconds. Lab Interpretation Normal (test code = 07767-5) [facility] DistrictProthrombin Time (PT) / [id number] 23:31:24 Test Item Value Reference Range Interpretation Comments PROTIME PATIENT (test See_Comment [Auto mated message] code = 5964-2) The system wh ich generated this result transmitted ref erence range: 12.0 - 1 4.7 Seconds. The re ference range was not u sed to interpret this result as normal/abnor mal. INR (test code = 6301-6) Nor mal INR <1.1; Warfarin Therap eutic range 2.0 to 3. 0 or 2.5 to 3.5, dep ending upon the indica tions. Lab Interpretation (test Normal code = 85247-3) [facility] DistrictN-TERMINAL [id number] 21:45:39 Test Item Value Reference Range Interpretation Comments NT-proBNP (test code 1030 pg/mL See_Comment H [Autom ated = 9189289557) message] The system which generated this result transmitted reference range : <=450. The reference range was not used to interpret this result as normal/abnormal . DREAD (test code = DREAD) Biotin has been reported to cause a negative bias, interpret results relative to patient's use of biotin. Lab Interpretation Abnormal (test code = 32702-1) [facility] DistrictCOMP. METABOLIC PANEL (63574)2021-04-15 21:40:38 Test Item Value Reference Range Interpretation Comments NA (test code = 140 mmol/L 135-145 0545864106) K (test code = 4.4 mmol/L 3.5-5.0 9917628790) CL (test code = 107 mmol/L 98-108 2819121794) CO2 TOTAL (test code = 25 mmol/L 23-31 6695107338) AGAP (test code = 2-16 0883285736) BUN (test code = 25 mg/dL 7-23 H 9793220469) GLUCOSE (test code = 80 mg/dL 70-110 4335247297) CREATININE (test code = 0.79 mg/dL 0.50-1.04 0487839840) TOTAL BILI (test code = 0.4 mg/dL 0.1-1.6 4418243945) CALCIUM (test code = 8.6 mg/dL 8.6-10.6 0577925593) T PROTEIN (test code = 6.8 g/dL 6.3-8.2 6869981032) ALBUMIN (test code = 3.7 g/dL 3.5-5.0 2918149559) ALK PHOS (test code = 85 U/L 34-122 7518707698) ALTv (test code = 10 U/L 5-35 1742-6) AST(SGOT) (test code = 30 U/L 13-40 4384833459) eGFR (test code = mL/min/1.73m2 9554641496) DREAD (test code = DREAD) Association of Glomerular Filtration Rate (GFR) and Staging of Kidney Disease* + --+ --+ ------+| GFR (mL/min/1.73 m2) ?| With Kidney Damage ?| ?Without Kidney Damage+ --------+ --------+ +| ?>90 ?| ?Stage one ?| ? Normal ?+ ---+ ---+ -------+| ?60-89 ?| ?Stage two ?| ? Decreased GFR ? + --+ --+ ------+| ?30-59 ?| ?Stage three ?| ? Stage three ? + --+ --+ ------+| ?15-29 ?| ?Stage four ? | ? Stage four ?+ ---+ ---+ -------+| ?<15 (or dialysis) ? ?| ?Stage five ? | ? Stage five ?+ ---+ ---+ -------+ *Each stage assumes the associated GFR level has been in effect for at least three months. ?Stages 1 to 5, with or without kidney disease, indicate chronic kidney disease. Notes: Determination of stages one and two (with eGFR >59mL/min/1.73 m2) requires estimation of kidney damage for at least three months as defined by structural or functional abnormalities of the kidney, manifested by either:Pathological abnormalities or Markers of kidney damage (including abnormalities in the composition of the blood or urine or abnormalities in imaging tests). Lab Interpretation Abnormal (test code = 13027-0) [facility] 21:40:38 Test Item Value Reference Range Interpretation Comments MAGNESIUM (test code = 1450973589) 2.1 mg/dL 1.7-2.4 Lab Interpretation (test code = Normal 49038-9) [facility]-[id number] 21:28:56 Test Item Value Reference Interpretation Comments Range D-DIMER (test code = See_Comment H [Autom ated 5562295484) message] The system which generated this result transmitted reference range : <0.41 ?g/mL (FEU). The reference range was not used to interpret this result as normal/abnormal . DREAD (test code = This test may be DREAD) used in conjunction with a clinical pretest probability (PTP) assessment model to exclude venous thromboembolism (VTE) in patients suspected of deep venous thrombosis (DVT) and pulmonary embolism (PE) A D-Dimer value less than 0.50 ?g/ml (FEU) has a negative predicative value of 96 to 100% (95% CI)and 97 to 100% (95% CI) as an aid in the diagnosis of deep vein thrombosis (DVT) and pulmonary embolism when there is low or moderate pretest probability of PE or DVT. D-Dimer values are expressed in initial fibrinogen equivalent units (FEU)" The assay results should be used with other information, including the clinical context, in forming a diagnosis. Lab Interpretation Abnormal (test code = 02644-6) [facility]COVID[facility] (ID NOW RAPID TESTING)2021-04-15 21:28:35 Test Item Value Reference Range Interpretation Comments SARS-CoV-2 Rapid ID NOW Positive Not Detected A (test code = 47618-2) DREAD (test code = DREAD) ID NOW COVID-19 Assay is an isothermal nucleic acid amplification test intended for the qualitative detection of nucleic acid from SARS-CoV-2 viral RNA in nasopharyngeal (OCEANOLOGIST) specimens. It is used under Emergency Use Authorization (EUA) by FDA. The limit of detection (LOD) of the assay is 125 Genome Equivalents/mL. A positive result is indicative of the presence of SARS-CoV-2 RNA. ?Clinical correlation with patient history and other diagnostic information is necessary to determine patient infection status. A negative (Not Detected) result does not preclude SARS-CoV-2 infection. In patients with clinical symptoms and other tests that are consistent with SARS-CoV-2 infection, negative results should be treated as presumptive negative and a new specimen should be tested with alternative PCR molecular test. Invalid: Please collect a new specimen for repeat patient testing if clinically indicated. Lab Interpretation Abnormal (test code = 18010-5) [facility] WITH [id number] 21:21:14 Test Item Value Reference Range Interpretation Comments WBC (test code = See_Comment L [Automated 6690-2) message] The sy stem which generated this result transmitted reference range : 4.30 - 11.10 10*3/?L. The reference range was not used to interpret this result as normal/abnormal . RBC (test code = See_Comment L [Automated 789-8) message] The sy stem which generated this result transmitted reference range : 3.93 - 5.25 10*6/?L. The reference range was not used to interpret this result as normal/abnormal . HGB (test code = 9.7 g/dL 11.6-15.0 L 718-7) HCT (test code = 30.3 % 35.7-45.2 L 4544-3) MCV (test code = 96.5 fL 80.6-95.5 H 787-2) MCH (test code = 30.9 pg 25.9-32.8 785-6) MCHC (test code = 32.0 g/dL 31.6-35.1 786-4) RDW-SD (test code = 48.7 fL 39.0-49.9 95953-7) RDW-CV (test code = 13.6 % 12.0-15.5 788-0) PLT (test code = See_Comment L [Automated 777-3) message] The sy stem which generated this result transmitted reference range : 166 - 358 10*3/ ?L. The reference r kemar was not used to interpret this result as normal/abnormal . MPV (test code = 10.0 fL 9.5-12.9 01868-0) NRBC/100 WBC (test See_Comment [Automat ed code = 1034302801) message] The system which generated this result transmitted reference range : 0.0 - 10.0 /100 WBCs. The refer ence range was not u sed to interpret th is result as normal/abnormal . NRBC x10^3 (test code <0.01 See_Comment [Auto mated = 8798306382) message] The s ystem which generated this result transmitted reference range : 10*3/?L. The reference range was not used to interpret this result as normal/abnormal . GRAN MAT (NEUT) % 58.7 % (test code = 770-8) IMM GRAN % (test code 0.30 % = 8280577768) LYMPH % (test code = 22.9 % 736-9) MONO % (test code = 15.2 % 5905-5) EOS % (test code = 2.6 % 713-8) BASO % (test code = 0.3 % 706-2) GRAN MAT x10^3(ANC) 2.29 10*3/uL 1.88-7.09 (test code = 7178940730) IMM GRAN x10^3 (test <0.03 0.00-0.06 code = 6682305178) LYMPH x10^3 (test code 0.89 10*3/uL 1.32-3.29 L = 731-0) MONO x10^3 (test code 0.59 10*3/uL 0.33-0.92 = 742-7) EOS x10^3 (test code = 0.10 10*3/uL 0.03-0.39 711-2) BASO x10^3 (test code <0.03 0.01-0.07 = 704-7) Lab Interpretation Abnormal (test code = 37276-2) [facility] [id number] 21:20:48 Test Item Value Reference Range Interpretation Comments LACTIC ACID (test code = 1.13 mmol/L 0.50-2.20 8053241275) Lab Interpretation (test code = Normal 66251-3) [facility] NOW RAPID TESTING)2020-03-01 23:27:00 Test Item Value Reference Range Interpretation Comments SARS-CoV-2 Rapid ID NOW Not Detected Not Detected (test code = 10187-8) DREAD (test code = DREAD) ID NOW COVID-19 Assay is an isothermal nucleic acid amplification test intended for the qualitative detection of nucleic acid from SARS-CoV-2 viral RNA in nasopharyngeal (OCEANOLOGIST) specimens. It is used under Emergency Use Authorization (EUA) by FDA. The limit of detection (LOD) of the assay is 125 Genome Equivalents/mL. A positive result is indicative of the presence of SARS-CoV-2 RNA. ?Clinical correlation with patient history and other diagnostic information is necessary to determine patient infection status. A negative (Not Detected) result does not preclude SARS-CoV-2 infection. In patients with clinical symptoms and other tests that are consistent with SARS-CoV-2 infection, negative results should be treated as presumptive negative and a new specimen should be tested with alternative PCR molecular test. Invalid: Please collect a new specimen for repeat patient testing if clinically indicated. Lab Interpretation Normal (test code = 76226-6) [facility] DistrictT[facility] [id number] 23:21:00 Test Item Value Reference Range Interpretation Comments TROPONIN I (test <0.012 See_Comment [Automated code = 2852413447) message] The system which generated this result transmitted reference range : <=0.034 ng/mL. The reference range was not used to interpr et this result as normal/abnormal . DREAD (test code = Equal or Less than DREAD) 0.034 ng/ml---Normal ?Note: Cardiac troponin begins to rise 3-4 hours after the onset of ischemia. Repeat in 4-6 hours if the sample was drawn within 3-4 hours of the onset of the symptom and found normal. Between 0.035 and 0.120 ng/mL--- Borderline. Questionable myocardial injury or necrosis ? ?Note: Serial measurement may be necessary to confirm or exclude the diagnosis of myocardial injury or necrosis; Clinical correlation (symptoms, EKGs, imaging studies, and others) required; Repeat in 4-6 hours if clinically indicated. ? Equal or Higher than 0.121 ng/mL---Abnormal. Myocardial Injury or Necrosis Likely ? Biotin has been reported to cause a negative bias, interpret results relative to patient's use of biotin. ? Lab Interpretation Normal (test code = 94308-8) [facility] DistrictN-[facility]MINAL ETX-[id number] 23:18:00 Test Item Value Reference Range Interpretation Comments NT-proBNP (test code 407 pg/mL See_Comment [Autom ated = 2410364708) message] The system which generated this result transmitted reference range : <=450. The reference range was not used to interpret this result as normal/abnormal . DREAD (test code = DREAD) Biotin has been reported to cause a negative bias, interpret results relative to patient's use of biotin. Lab Interpretation Normal (test code = 58861-1) [facility] Metabolic Panel (NA, K, CL, CO2, GLUCOSE, BUN, CREATININE, CA)2020-03-01 23:10:00 Test Item Value Reference Range Interpretation Comments NA (test code = 140 mmol/L 135-145 1872481396) K (test code = 4.5 mmol/L 3.5-5 9133744547) CL (test code = 108 mmol/L 98-108 1931340719) CO2 TOTAL (test code = 22 mmol/L 23-31 L 3134526464) AGAP (test code = 2-16 0799127008) BUN (test code = 18 mg/dL 7-23 8249018404) GLUCOSE (test code = 104 mg/dL 70-110 8777812292) CREATININE (test code = 0.75 mg/dL 0.5-1.04 6572194777) CALCIUM (test code = 9.2 mg/dL 8.6-10.6 2392474308) eGFR Calculation mL/min/1.73m2 (Non-) (test code = 7731246305) eGFR Calculation mL/min/1.73m2 () (test code = 0537723819) DREAD (test code = DREAD) Association of Glomerular Filtration Rate (GFR) and Staging of Kidney Disease* + --+ --+ ------+| GFR (mL/min/1.73 m2) ?| With Kidney Damage ?| ?Without Kidney Damage+ --------+ --------+ +| ?>90 ?| ?Stage one ?| ? Normal ?+ ---+ ---+ -------+| ?60-89 ?| ?Stage two ?| ? Decreased GFR ? + --+ --+ ------+| ?30-59 ?| ?Stage three ?| ? Stage three ? + --+ --+ ------+| ?15-29 ?| ?Stage four ? | ? Stage four ?+ ---+ ---+ -------+| ?<15 (or dialysis) ? ?| ?Stage five ? | ? Stage five ?+ ---+ ---+ -------+ *Each stage assumes the associated GFR level has been in effect for at least three months. ?Stages 1 to 5, with or without kidney disease, indicate chronic kidney disease. Notes: Determination of stages one and two (with eGFR >59mL/min/1.73 m2) requires estimation of kidney damage for at least three months as defined by structural or functional abnormalities of the kidney, manifested by either:Pathological abnormalities or Markers of kidney damage (including abnormalities in the composition of the blood or urine or abnormalities in imaging tests). Lab Interpretation Abnormal (test code = 13226-4) [facility] (ALB, T.PRO, BILI T, BU/BC, ALT, AST, ALK PHOS)2020-03-01 23:10:00 Test Item Value Reference Range Interpretation Comments TOTAL BILI (test code = 2702119794) 0.1 mg/dL 0.1-1.1 BILI UNCON (test code = 4875509066) 0.4 mg/dL 0.1-1.1 BILI CONJ (test code = 4982824140) 0.0 mg/dL 0-0.3 T PROTEIN (test code = 7728324520) 6.8 g/dL 6.3-8.2 ALBUMIN (test code = 9230060344) 3.9 g/dL 3.5-5 ALK PHOS (test code = 8139064051) 89 U/L 34-122 ALTv (test code = 1742-6) 10 U/L 5-35 AST(SGOT) (test code = 9931189268) 18 U/L 13-40 Lab Interpretation (test code = Normal 12102-9) [facility] DistrictCBC WITH WMIPJQKMRQSV7325-80-95 23:01:00 Test Item Value Reference Range Interpretation Comments WBC (test code = See_Comment [Automated 5390-2) message] The sy stem which generated this result transmitted reference range : 4.30 - 11.10 10*3/?L. The reference range was not used to interpret this result as normal/abnormal . RBC (test code = See_Comment L [Automated 839-8) message] The sy stem which generated this result transmitted reference range : 3.93 - 5.25 10*6/?L. The reference range was not used to interpret this result as normal/abnormal . HGB (test code = 10.7 g/dL 11.6-15 L 718-7) HCT (test code = 32.7 % 35.7-45.2 L 4544-3) MCV (test code = 97.3 fL 80.6-95.5 H 787-2) MCH (test code = 31.8 pg 25.9-32.8 785-6) MCHC (test code = 32.7 g/dL 31.6-35.1 786-4) RDW-SD (test code = 42.5 fL 39-49.9 57730-2) RDW-CV (test code = 12.0 % 12-15.5 788-0) PLT (test code = See_Comment [Automated 777-3) message] The sy stem which generated this result transmitted reference range : 166 - 358 10*3/ ?L. The reference r kemar was not used to interpret this result as normal/abnormal . MPV (test code = 9.4 fL 9.5-12.9 L 02091-4) NRBC/100 WBC (test See_Comment [Automat ed code = 2315731075) message] The system which generated this result transmitted reference range : 0.0 - 10.0 /100 WBCs. The refer ence range was not u sed to interpret th is result as normal/abnormal . NRBC x10^3 (test code <0.01 See_Comment [Auto mated = 1380933801) message] The s ystem which generated this result transmitted reference range : 10*3/?L. The reference range was not used to interpret this result as normal/abnormal . GRAN MAT (NEUT) % 61.9 % (test code = 770-8) IMM GRAN % (test code 0.40 % = 6177001229) LYMPH % (test code = 27.1 % 736-9) MONO % (test code = 8.9 % 5905-5) EOS % (test code = 1.3 % 713-8) BASO % (test code = 0.4 % 706-2) GRAN MAT x10^3(ANC) 5.16 10*3/uL 1.88-7.09 (test code = 0841845286) IMM GRAN x10^3 (test 0.03 10*3/uL 0-0.06 code = 4016257617) LYMPH x10^3 (test code 2.26 10*3/uL 1.32-3.29 = 731-0) MONO x10^3 (test code 0.74 10*3/uL 0.33-0.92 = 742-7) EOS x10^3 (test code = 0.11 10*3/uL 0.03-0.39 711-2) BASO x10^3 (test code 0.03 10*3/uL 0.01-0.07 = 704-7) Lab Interpretation Abnormal (test code = 93063-2) [facility] 11:29:00 Test Item Value Reference Range Interpretation Comments Hct (test code = Hct) 25.5 36.0-48.0 [facility] CenterWdiaozfHQBMIDILJH3636-79-89 11:29:00 Test Item Value Reference Range Interpretation Comments Hgb (test code = Hgb) 8.6 12.0-16.0 [facility] CenterZlbkngmKJRVMGHPBQ0865-63-49 11:29:00 Test Item Value Reference Range Interpretation Comments Hct (test code = Hct) 25.5 36.0-48.0 [facility] CenterCqjktxlOXRECVADWU4219-92-69 11:29:00 Test Item Value Reference Range Interpretation Comments Hgb (test code = Hgb) 8.6 12.0-16.0 [facility]2018-05-25 11:44:00 Test Item Value Reference Range Interpretation Comments Vitamin D, 25-OH, Total (test code = 12.4 30.0-100.0 Vitamin D, 25-OH, Total) [facility]VeockhcPYECZCBGYQCY5552-43-79 11:44:00 Test Item Value Reference Range Interpretation Comments AGAP (test code = AGAP) 13.9 10.0-20.0 [facility] SystemNsuajxyLYQLFLBHJIFO4541-64-40 11:44:00 Test Item Value Reference Range Interpretation Comments eGFR (test code = eGFR) 82 [facility] SystemBbwrrovDVNBOXOHTDQM0611-19-60 11:44:00 Test Item Value Reference Range Interpretation Comments Chloride Lvl (test code = Chloride Lvl) 110 95-109 [facility] SystemCkyylutJYEGITSMTECD7144-82-30 11:44:00 Test Item Value Reference Range Interpretation Comments CO2 (test code = CO2) 24 24-32 [facility] SystemFhpysrvSKFXRMHVSZRN4871-41-78 11:44:00 Test Item Value Reference Range Interpretation Comments Sodium Lvl (test code = Sodium Lvl) 144 135-145 [facility] SystemNqladzaDDOSLSCHOIVO0185-09-90 11:44:00 Test Item Value Reference Range Interpretation Comments Potassium Lvl (test code = Potassium 3.9 3.5-5.1 Lvl) [facility] SystemOkrjjozMNYRVPUFZDPS3925-22-04 11:44:00 Test Item Value Reference Range Interpretation Comments BUN (test code = BUN) 20 7-22 [facility] SystemQknwmwnPJHTHUCFUNVM5642-38-47 11:44:00 Test Item Value Reference Range Interpretation Comments Creatinine Lvl (test code = Creatinine 0.68 0.50-1.40 Lvl) [facility] SystemAbixummQIJWZXNICEFS3518-46-37 11:44:00 Test Item Value Reference Range Interpretation Comments Glucose Lvl (test code = Glucose Lvl) 151 70-99 [facility] SystemAyjqvgcUPNVEFUPRHPD7395-14-48 11:44:00 Test Item Value Reference Range Interpretation Comments Calcium Lvl (test code = Calcium Lvl) 7.9 8.5-10.5 [facility] CenterEcgiwpfCPOGFLMOGM8543-46-27 11:44:00 Test Item Value Reference Range Interpretation Comments MCV (test code = MCV) 93.8 80.0-98.0 [facility] CenterJzybkjmGAUVLVUFYL2912-96-26 11:44:00 Test Item Value Reference Range Interpretation Comments MCH (test code = MCH) 31.7 pg 27.0-31.0 [facility] CenterVjxaklhXTBKSHUKGH3148-67-08 11:44:00 Test Item Value Reference Range Interpretation Comments Hct (test code = Hct) 26.2 36.0-48.0 [facility] CenterLzejtaxQOTBUHJJSS3248-18-23 11:44:00 Test Item Value Reference Range Interpretation Comments Platelet (test code = Platelet) 215 133-450 [facility] CenterEvloeycNZASVAWFPE4983-79-85 11:44:00 Test Item Value Reference Range Interpretation Comments MCHC (test code = MCHC) 33.8 32.0-36.0 [facility] CenterUdxoppfMKGJVOMDTZ5910-71-47 11:44:00 Test Item Value Reference Range Interpretation Comments MPV (test code = MPV) 6.8 7.4-10.4 [facility] CenterHlunqmdSSLQLHASEE8437-54-49 11:44:00 Test Item Value Reference Range Interpretation Comments RDW (test code = RDW) 12.7 11.5-14.5 [facility] CenterRaqirwwEMSGSVOPJQ8537-60-02 11:44:00 Test Item Value Reference Range Interpretation Comments Hgb (test code = Hgb) 8.9 12.0-16.0 [facility] CenterJgbppocAIKFDWJQNL6873-59-61 11:44:00 Test Item Value Reference Range Interpretation Comments WBC (test code = WBC) 7.6 3.7-10.4 [facility] CenterXelmflcKEXJHWMTJP3013-14-86 11:44:00 Test Item Value Reference Range Interpretation Comments RBC (test code = RBC) 2.79 4.20-5.40 [facility] CenterOplwhlpVMRMVYVSXQ6254-70-13 11:44:00 Test Item Value Reference Range Interpretation Comments Monocytes # (test code 1.2 See_Comment [Aut omated message] The = Monocytes #) system which generated this result tra nsmitted reference range : <=0.8. The reference r kemar was not used to int erpret this result as normal/abnormal . [facility] CenterPmfznvqLIGLOICDSC6150-41-57 11:44:00 Test Item Value Reference Range Interpretation Comments Lymphocytes # (test code = Lymphocytes 1.2 1.0-5.5 #) [facility] CenterBadoiqkQASRTJKJEF5748-04-80 11:44:00 Test Item Value Reference Range Interpretation Comments Monocytes (test code = Monocytes) 16.0 2.0-12.0 [facility] CenterVpjmzoyQYCFIXJNPF3378-31-13 11:44:00 Test Item Value Reference Range Interpretation Comments Lymphocytes (test code = Lymphocytes) 15.8 20.0-40.0 [facility] CenterWvclhfaEKQXCXCKGU3398-47-19 11:44:00 Test Item Value Reference Range Interpretation Comments Segs (test code = Segs) 67.9 45.0-75.0 [facility] CenterIqfrddwTQPHMVXWEF5729-24-89 11:44:00 Test Item Value Reference Range Interpretation Comments Segs-Bands # (test code = Segs-Bands #) 5.1 1.5-8.1 [facility] CenterOcebejrISBSYMJPAX8696-65-09 11:44:00 Test Item Value Reference Range Interpretation Comments Basophils (test code = 0.3 See_Comment [Aut omated message] The Basophils) system which ge nerated this result tra nsmitted reference range : <=1.0. The reference r kemar was not used to int erpret this result as normal/abnormal . [facility]PAR[facility] YKXMRWG9276-36-39 11:44:00 Test Item Value Reference Range Interpretation Comments PTH Intact (test code = PTH Intact) 122.9 18.4-80.1 [facility]entonCHEM KJDQW3854-49-84 11:44:00 Test Item Value Reference Range Interpretation Comments Vitamin D, 25-OH, Total (test code = 12.4 30.0-100.0 Vitamin D, 25-OH, Total) [facility]OevbghgYDXUIIKLDJQL1130-83-31 11:44:00 Test Item Value Reference Range Interpretation Comments AGAP (test code = AGAP) 13.9 10.0-20.0 [facility] SystemHzsrmzmIHNACZHCQQGQ8968-36-58 11:44:00 Test Item Value Reference Range Interpretation Comments eGFR (test code = eGFR) 82 [facility] SystemYcvxzukWEFUBTYMOUZD0695-04-44 11:44:00 Test Item Value Reference Range Interpretation Comments Chloride Lvl (test code = Chloride Lvl) 110 95-109 [facility] SystemCurisnoOBWILYJSNLGW3272-86-24 11:44:00 Test Item Value Reference Range Interpretation Comments CO2 (test code = CO2) 24 24-32 [facility] SystemZcyacztRVQAFXETYQII9877-85-26 11:44:00 Test Item Value Reference Range Interpretation Comments Sodium Lvl (test code = Sodium Lvl) 144 135-145 [facility] SystemJglpozlABASYGQWDKCT7301-59-21 11:44:00 Test Item Value Reference Range Interpretation Comments Potassium Lvl (test code = Potassium 3.9 3.5-5.1 Lvl) [facility] SystemEzsvgkkLPOMTDGSADHK8567-53-16 11:44:00 Test Item Value Reference Range Interpretation Comments BUN (test code = BUN) 20 7-22 [facility] SystemFfyofysGEXYGMCCOZLP1686-04-35 11:44:00 Test Item Value Reference Range Interpretation Comments Creatinine Lvl (test code = Creatinine 0.68 0.50-1.40 Lvl) [facility] SystemLzkbtfcIKGQUJPGGGCO8050-00-81 11:44:00 Test Item Value Reference Range Interpretation Comments Glucose Lvl (test code = Glucose Lvl) 151 70-99 [facility] SystemNprzqykTCLTYNEZGKLH9794-38-14 11:44:00 Test Item Value Reference Range Interpretation Comments Calcium Lvl (test code = Calcium Lvl) 7.9 8.5-10.5 [facility] CenterCpcsuczIMVOCIXYFO3429-40-45 11:44:00 Test Item Value Reference Range Interpretation Comments MCV (test code = MCV) 93.8 80.0-98.0 [facility] CenterUiohjhvRYCOAACTJU4080-75-78 11:44:00 Test Item Value Reference Range Interpretation Comments MCH (test code = MCH) 31.7 pg 27.0-31.0 [facility] CenterChlvfioCXFZJCWGLJ3249-90-15 11:44:00 Test Item Value Reference Range Interpretation Comments Hct (test code = Hct) 26.2 36.0-48.0 [facility] CenterBsnouzdIEJCSTVYDV7462-23-97 11:44:00 Test Item Value Reference Range Interpretation Comments Platelet (test code = Platelet) 215 133-450 [facility] CenterVrqbfmvKFVLUOPZDE5038-84-89 11:44:00 Test Item Value Reference Range Interpretation Comments MCHC (test code = MCHC) 33.8 32.0-36.0 [facility] CenterMtknuzzKSIYUBQZIZ2055-74-96 11:44:00 Test Item Value Reference Range Interpretation Comments MPV (test code = MPV) 6.8 7.4-10.4 [facility] CenterTjibbysJKIUPEGNGM4233-24-66 11:44:00 Test Item Value Reference Range Interpretation Comments RDW (test code = RDW) 12.7 11.5-14.5 [facility] CenterEwtsmnjXUWXSQADPB2101-28-04 11:44:00 Test Item Value Reference Range Interpretation Comments Hgb (test code = Hgb) 8.9 12.0-16.0 [facility] CenterYemlgbvEOIRVDCXDR0596-02-76 11:44:00 Test Item Value Reference Range Interpretation Comments WBC (test code = WBC) 7.6 3.7-10.4 [facility] CenterViqwuzmFWHFHIWJJC1278-32-39 11:44:00 Test Item Value Reference Range Interpretation Comments RBC (test code = RBC) 2.79 4.20-5.40 [facility] CenterJwcwggrUMQIKUKSYU9957-62-65 11:44:00 Test Item Value Reference Range Interpretation Comments Monocytes # (test code 1.2 See_Comment [Aut omated message] The = Monocytes #) system which generated this result tra nsmitted reference range : <=0.8. The reference r kemar was not used to int erpret this result as normal/abnormal . [facility] CenterLunxyftAAGROAUWGO2444-12-33 11:44:00 Test Item Value Reference Range Interpretation Comments Lymphocytes # (test code = Lymphocytes 1.2 1.0-5.5 #) [facility] CenterRglclgsLXURJJWLGR5188-06-81 11:44:00 Test Item Value Reference Range Interpretation Comments Monocytes (test code = Monocytes) 16.0 2.0-12.0 [facility] CenterJuwomokSYQPKLXAJL6931-22-29 11:44:00 Test Item Value Reference Range Interpretation Comments Lymphocytes (test code = Lymphocytes) 15.8 20.0-40.0 [facility] CenterCxoegdhSZYBZGXKPO5203-78-39 11:44:00 Test Item Value Reference Range Interpretation Comments Segs (test code = Segs) 67.9 45.0-75.0 [facility] CenterDtxdzdfGJIUSCLPJC4725-66-59 11:44:00 Test Item Value Reference Range Interpretation Comments Segs-Bands # (test code = Segs-Bands #) 5.1 1.5-8.1 [facility] CenterFxspxilTZGDXAOCTP1980-51-48 11:44:00 Test Item Value Reference Range Interpretation Comments Basophils (test code = 0.3 See_Comment [Aut omated message] The Basophils) system which ge nerated this result tra nsmitted reference range : <=1.0. The reference r kemar was not used to int erpret this result as normal/abnormal . [facility]entonPARATHYROID FSTJWMB8892-23-50 11:44:00 Test Item Value Reference Range Interpretation Comments PTH Intact (test code = PTH Intact) 122.9 18.4-80.1 [facility] [employer] DDDTXGZ6755-56-96 09:21:00 Test Item Value Reference Range Interpretation Comments ABO/Rh (test code = ABO/Rh) O POS [facility] [employer] TGVWHJQ4763-55-80 09:21:00 Test Item Value Reference Range Interpretation Comments Antibody Scrn (test Negative (02/04/18 4:21 code = Antibody Scrn) AM) [facility] [employer] [facility] ZUNONUV9632-39-02 09:21:00 Test Item Value Reference Range Interpretation Comments ABO/Rh (test code = ABO/Rh) O POS [facility] [employer] [facility] [id number] 09:21:00 Test Item Value Reference Range Interpretation Comments Antibody Scrn (test Negative (02/04/18 4:21 code = Antibody Scrn) AM) [facility]CHE[facility] MPLVC5013-73-22 09:06:59 Test Item Value Reference Range Interpretation Comments Lactic Acid Lvl (test code = Lactic 0.9 0.5-2.2 Acid Lvl) [facility]WomvwoaBKWWQDEQUJBW8788-44-17 09:06:59 Test Item Value Reference Range Interpretation Comments AGAP (test code = AGAP) 11.9 10.0-20.0 [facility] SystemOlrahqoVRIVGHCIDVAR1899-47-82 09:06:59 Test Item Value Reference Range Interpretation Comments eGFR (test code = eGFR) 83 [facility] SystemSkxtakwSGFJJWHMFLGS8136-74-27 09:06:59 Test Item Value Reference Range Interpretation Comments Calcium Lvl (test code = Calcium Lvl) 8.1 8.5-10.5 [facility] SystemBhrkunxRWDIZMCXLMUO0489-02-34 09:06:59 Test Item Value Reference Range Interpretation Comments CO2 (test code = CO2) 22 24-32 [facility] SystemJqjsbngEZNDWIQDFVAB7368-58-62 09:06:59 Test Item Value Reference Range Interpretation Comments Sodium Lvl (test code = Sodium Lvl) 140 135-145 [facility] SystemGxndsgkLMBDSBXVESMU6294-05-26 09:06:59 Test Item Value Reference Range Interpretation Comments Creatinine Lvl (test code = Creatinine 0.67 0.50-1.40 Lvl) [facility] SystemYcylzcdPFDTOXUKKPKT4661-32-60 09:06:59 Test Item Value Reference Range Interpretation Comments BUN (test code = BUN) 22 7-22 [facility] SystemNjbnmoeAHJVHWIFFUDO5381-54-90 09:06:59 Test Item Value Reference Range Interpretation Comments Glucose Lvl (test code = Glucose Lvl) 135 70-99 [facility] SystemHuhmincFTJWGIMNJRMC2136-91-58 09:06:59 Test Item Value Reference Range Interpretation Comments Chloride Lvl (test code = Chloride Lvl) 110 95-109 [facility] SystemCkguhphJVOTGSEPLOQO2704-38-04 09:06:59 Test Item Value Reference Range Interpretation Comments Potassium Lvl (test code = Potassium 3.9 3.5-5.1 Lvl) [facility] DentonLzenyzaZAUPZUFDTT1827-98-16 09:06:59 Test Item Value Reference Range Interpretation Comments PTT (test code = PTT) 24.7 s 22.9-35.8 [facility] CenterRznslqpKOGXCQSQQU3578-83-26 09:06:59 Test Item Value Reference Range Interpretation Comments INR (test code = INR) 1.01 1 0.85-1.17 [facility] CenterCzhukrfXZEMZOQGUW8604-18-81 09:06:59 Test Item Value Reference Range Interpretation Comments PT (test code = PT) 13.3 s 12.0-14.7 [facility] CenterMumbensBTFLNBIVWZ0628-05-39 09:06:59 Test Item Value Reference Range Interpretation Comments Platelet (test code = Platelet) 232 133-450 [facility] CenterCxbcuaqOECQDMWCLP8169-01-59 09:06:59 Test Item Value Reference Range Interpretation Comments MPV (test code = MPV) 7.1 7.4-10.4 [facility] CenterThfhqteHXKQVWLKZP9580-34-02 09:06:59 Test Item Value Reference Range Interpretation Comments Hct (test code = Hct) 32.2 36.0-48.0 [facility] CenterNsjujfwBWOBFIBHIO5931-30-78 09:06:59 Test Item Value Reference Range Interpretation Comments RBC (test code = RBC) 3.42 4.20-5.40 [facility] CenterPvktgwsEUYCUBYONC8569-53-41 09:06:59 Test Item Value Reference Range Interpretation Comments Hgb (test code = Hgb) 10.8 12.0-16.0 [facility] CenterAfxodgjLIHBAMQQHB5546-31-94 09:06:59 Test Item Value Reference Range Interpretation Comments WBC (test code = WBC) 8.5 3.7-10.4 [facility] CenterIogxzxuPOKQGMFDLD1142-89-84 09:06:59 Test Item Value Reference Range Interpretation Comments MCHC (test code = MCHC) 33.5 32.0-36.0 [facility]2018-05-24 09:06:59 Test Item Value Reference Range Interpretation Comments Lactic Acid Lvl (test code = Lactic 0.9 0.5-2.2 Acid Lvl) [facility]MgxezcdVQAHGQZRCJCO0956-32-27 09:06:59 Test Item Value Reference Range Interpretation Comments AGAP (test code = AGAP) 11.9 10.0-20.0 [facility]QzqeobtUTQHFGVKYPKI8893-21-92 09:06:59 Test Item Value Reference Range Interpretation Comments eGFR (test code = eGFR) 83 [facility] SystemAgazlfyGKKSMPTEFBQD1462-21-68 09:06:59 Test Item Value Reference Range Interpretation Comments Calcium Lvl (test code = Calcium Lvl) 8.1 8.5-10.5 [facility] SystemNozvqafUKJOWERTTZSO4674-37-85 09:06:59 Test Item Value Reference Range Interpretation Comments CO2 (test code = CO2) 22 24-32 [facility] SystemMxgylpmUHWRFBXLJTOH2658-48-11 09:06:59 Test Item Value Reference Range Interpretation Comments Sodium Lvl (test code = Sodium Lvl) 140 135-145 [facility] SystemXzopzqxJCIFZHIAEMQM9942-25-12 09:06:59 Test Item Value Reference Range Interpretation Comments Creatinine Lvl (test code = Creatinine 0.67 0.50-1.40 Lvl) [facility] SystemRdcllftNWCZUKZAWIJH5293-36-58 09:06:59 Test Item Value Reference Range Interpretation Comments BUN (test code = BUN) 22 7-22 [facility] SystemJpptmcxKTXYTNDFDOSQ4966-13-62 09:06:59 Test Item Value Reference Range Interpretation Comments Glucose Lvl (test code = Glucose Lvl) 135 70-99 [facility] CenterZxvjqbcBPVTELABSW2454-33-41 09:06:59 Test Item Value Reference Range Interpretation Comments RDW (test code = RDW) 13.0 11.5-14.5 [facility] SystemWmvkeldOJHZBEBVRBVU6817-67-39 09:06:59 Test Item Value Reference Range Interpretation Comments Chloride Lvl (test code = Chloride Lvl) 110 95-109 [facility] SystemMofdrvvTSAADFWOTAWY1825-61-23 09:06:59 Test Item Value Reference Range Interpretation Comments Potassium Lvl (test code = Potassium 3.9 3.5-5.1 Lvl) [facility] CenterDsydbtqYYOQOIHIDX5207-06-22 09:06:59 Test Item Value Reference Range Interpretation Comments PTT (test code = PTT) 24.7 s 22.9-35.8 [facility] CenterLizujifUWHEVXIXPJ8574-79-15 09:06:59 Test Item Value Reference Range Interpretation Comments INR (test code = INR) 1.01 1 0.85-1.17 [facility] CenterOhwiyeeVKXSNAFPCU7926-50-02 09:06:59 Test Item Value Reference Range Interpretation Comments PT (test code = PT) 13.3 s 12.0-14.7 [facility] CenterVgflbpzMMJFXOBUHX1022-70-32 09:06:59 Test Item Value Reference Range Interpretation Comments Platelet (test code = Platelet) 232 133-450 [facility] CenterZmkremlPMZJRVZQRJ1650-47-86 09:06:59 Test Item Value Reference Range Interpretation Comments MPV (test code = MPV) 7.1 7.4-10.4 [facility] CenterFpdslcoIJMPVLRGFK2924-31-13 09:06:59 Test Item Value Reference Range Interpretation Comments Hct (test code = Hct) 32.2 36.0-48.0 [facility] CenterHrhjkjbIPTHKIMVQG5209-68-37 09:06:59 Test Item Value Reference Range Interpretation Comments RBC (test code = RBC) 3.42 4.20-5.40 [facility] CenterYkwfvwrLWLAWKGXFQ0397-44-63 09:06:59 Test Item Value Reference Range Interpretation Comments Hgb (test code = Hgb) 10.8 12.0-16.0 [facility] CenterYopsguxIKZOUYDLLC8299-94-57 09:06:59 Test Item Value Reference Range Interpretation Comments MCV (test code = MCV) 94.1 80.0-98.0 [facility] CenterMljpkwtPWSYQCLIYE9519-61-22 09:06:59 Test Item Value Reference Range Interpretation Comments WBC (test code = WBC) 8.5 3.7-10.4 [facility] CenterKejinrbMWNLEWHTOY1501-11-63 09:06:59 Test Item Value Reference Range Interpretation Comments MCHC (test code = MCHC) 33.5 32.0-36.0 [facility] CenterYcwecqaTPPNZZTWCT5332-47-48 09:06:59 Test Item Value Reference Range Interpretation Comments RDW (test code = RDW) 13.0 11.5-14.5 [facility] CenterOepiwgzOYBVFKCBAD1594-75-24 09:06:59 Test Item Value Reference Range Interpretation Comments MCV (test code = MCV) 94.1 80.0-98.0 [facility] CenterNesrbukMNDDCLWSTA6531-94-93 09:06:59 Test Item Value Reference Range Interpretation Comments MCH (test code = MCH) 31.5 pg 27.0-31.0 [facility] CenterSyxcurcVALAUDEVAF9127-39-56 09:06:59 Test Item Value Reference Range Interpretation Comments Eosinophils (test code = 2.3 See_Comment [A utomated message] The Eosinophils) system which ge nerated this result tra nsmitted reference range : <=4.0. The reference r kemar was not used to int erpret this result as normal/abnormal . [facility] CenterVkvshnlAYYRATPSMX0326-09-74 09:06:59 Test Item Value Reference Range Interpretation Comments Lymphocytes # (test code = Lymphocytes 1.7 1.0-5.5 #) [facility] CenterWmwdvsvXLNBNGKMME2850-95-64 09:06:59 Test Item Value Reference Range Interpretation Comments Segs-Bands # (test code = Segs-Bands #) 5.5 1.5-8.1 [facility] CenterIgelbeyEPRXNYWXNV3809-77-85 09:06:59 Test Item Value Reference Range Interpretation Comments Basophils (test code = 0.8 See_Comment [Aut omated message] The Basophils) system which ge nerated this result tra nsmitted reference range : <=1.0. The reference r kemar was not used to int erpret this result as normal/abnormal . [facility] CenterRxswoofKRQWBSBVSS1386-64-71 09:06:59 Test Item Value Reference Range Interpretation Comments Basophils # (test code 0.1 See_Comment [Aut omated message] The = Basophils #) system which generated this result tra nsmitted reference range : <=0.2. The reference r kemar was not used to int erpret this result as normal/abnormal . [facility] CenterPsldtduCUKWVPVXBF3147-67-48 09:06:59 Test Item Value Reference Range Interpretation Comments MCH (test code = MCH) 31.5 pg 27.0-31.0 [facility] CenterUrziusjDQRRYPZLUW6574-15-08 09:06:59 Test Item Value Reference Range Interpretation Comments Eosinophils # (test code 0.2 See_Comment [A utomated message] The = Eosinophils #) system whic h generated this result tra nsmitted reference range : <=0.5. The reference r kemar was not used to int erpret this result as normal/abnormal . [facility] CenterSbikjmeSPWEONRJKD3423-36-11 09:06:59 Test Item Value Reference Range Interpretation Comments Monocytes # (test code 1.1 See_Comment [Aut omated message] The = Monocytes #) system which generated this result tra nsmitted reference range : <=0.8. The reference r kemar was not used to int erpret this result as normal/abnormal . [facility] CenterAdzwlzhIEHZUIRNGX8867-70-43 09:06:59 Test Item Value Reference Range Interpretation Comments Segs (test code = Segs) 64.6 45.0-75.0 [facility] CenterWealwqpBRDQOXWIBL9666-70-75 09:06:59 Test Item Value Reference Range Interpretation Comments Lymphocytes (test code = Lymphocytes) 19.7 20.0-40.0 [facility] CenterZfwtrqiKWHQYBMTYK0327-90-91 09:06:59 Test Item Value Reference Range Interpretation Comments Monocytes (test code = Monocytes) 12.6 2.0-12.0 [facility] CenterDyawhcxBXQAMFBUDQ8730-80-96 09:06:59 Test Item Value Reference Range Interpretation Comments Eosinophils (test code = 2.3 See_Comment [A utomated message] The Eosinophils) system which ge nerated this result tra nsmitted reference range : <=4.0. The reference r kemar was not used to int erpret this result as normal/abnormal . [facility] CenterEbpqkmnCJZCLNBLZB5069-76-39 09:06:59 Test Item Value Reference Range Interpretation Comments Lymphocytes # (test code = Lymphocytes 1.7 1.0-5.5 #) [facility] CenterWitsmqcDFTPBTPYYS5080-74-19 09:06:59 Test Item Value Reference Range Interpretation Comments Segs-Bands # (test code = Segs-Bands #) 5.5 1.5-8.1 [facility] CenterMvibxlhZTDUVXQBIE3136-36-39 09:06:59 Test Item Value Reference Range Interpretation Comments Basophils (test code = 0.8 See_Comment [Aut omated message] The Basophils) system which ge nerated this result tra nsmitted reference range : <=1.0. The reference r kemar was not used to int erpret this result as normal/abnormal . [facility] CenterEmpkimfSKEPXCJEJV1349-21-89 09:06:59 Test Item Value Reference Range Interpretation Comments Basophils # (test code 0.1 See_Comment [Aut omated message] The = Basophils #) system which generated this result tra nsmitted reference range : <=0.2. The reference r kemar was not used to int erpret this result as normal/abnormal . [facility] CenterUrczifdFWSZAGOOIU6590-36-69 09:06:59 Test Item Value Reference Range Interpretation Comments Eosinophils # (test code 0.2 See_Comment [A utomated message] The = Eosinophils #) system whic h generated this result tra nsmitted reference range : <=0.5. The reference r kemar was not used to int erpret this result as normal/abnormal . [facility] CenterEnlmdolIIARWOIXKH1886-93-73 09:06:59 Test Item Value Reference Range Interpretation Comments Monocytes # (test code 1.1 See_Comment [Aut omated message] The = Monocytes #) system which generated this result tra nsmitted reference range : <=0.8. The reference r kemar was not used to int erpret this result as normal/abnormal . [facility] CenterUherbsfSAVOCYJFUL8220-36-96 09:06:59 Test Item Value Reference Range Interpretation Comments Segs (test code = Segs) 64.6 45.0-75.0 [facility] CenterMqvahgfMPOXLQPELW4195-61-06 09:06:59 Test Item Value Reference Range Interpretation Comments Lymphocytes (test code = Lymphocytes) 19.7 20.0-40.0 [facility] CenterBuezadsMPUYSAUYUF7518-10-21 09:06:59 Test Item Value Reference Range Interpretation Comments Monocytes (test code = Monocytes) 12.6 2.0-12.0 [facility]HuiojlfRLAMEOUJNRLG1151-92-14 11:14:00 Test Item Value Reference Range Interpretation Comments AGAP (test code = AGAP) 11.7 10.0-20.0 [facility] SystemXmydnxfIGBRDWNCIVOF2935-96-56 11:14:00 Test Item Value Reference Range Interpretation Comments eGFR (test code = eGFR) 99 [facility] SystemEhxxdqlDGJZYIRKTXUL4799-21-20 11:14:00 Test Item Value Reference Range Interpretation Comments CO2 (test code = CO2) 29 24-32 [facility] SystemCjmwlhuROAPROODESTB8587-76-16 11:14:00 Test Item Value Reference Range Interpretation Comments Chloride Lvl (test code = Chloride Lvl) 104 95-109 [facility] SystemCctwgsqYILCIDCANZXP0966-55-82 11:14:00 Test Item Value Reference Range Interpretation Comments Potassium Lvl (test code = Potassium 3.7 3.5-5.1 Lvl) [facility] SystemZmfummfHQKMESXOTTTY3381-23-75 11:14:00 Test Item Value Reference Range Interpretation Comments Sodium Lvl (test code = Sodium Lvl) 141 135-145 [facility] SystemLiikcrdEISYZDLXOPWS6661-64-55 11:14:00 Test Item Value Reference Range Interpretation Comments Creatinine Lvl (test code = Creatinine 0.40 0.50-1.40 Lvl) [facility] SystemCwphzpaMMHYGBXIHSBK1158-75-00 11:14:00 Test Item Value Reference Range Interpretation Comments Calcium Lvl (test code = Calcium Lvl) 8.1 8.5-10.5 [facility] SystemPpxstgvULRNYPRQKCBQ7709-84-00 11:14:00 Test Item Value Reference Range Interpretation Comments BUN (test code = BUN) 8 7-22 [facility] SystemCojiahxHVEDNBQGUDKP8601-87-45 11:14:00 Test Item Value Reference Range Interpretation Comments Glucose Lvl (test code = Glucose Lvl) 94 70-99 [facility] CenterLawnwrlSRIUFFSUTE7164-11-57 11:14:00 Test Item Value Reference Range Interpretation Comments RDW (test code = RDW) 16.6 11.5-14.5 [facility] CenterAhonmsuMMSISYXRVT2500-31-51 11:14:00 Test Item Value Reference Range Interpretation Comments MPV (test code = MPV) 7.2 7.4-10.4 [facility] CenterQaahdbvNRRMMHMIBM6304-30-65 11:14:00 Test Item Value Reference Range Interpretation Comments Platelet (test code = Platelet) 299 133-450 [facility] CenterDtbljstUAZDXOKIWE0398-27-44 11:14:00 Test Item Value Reference Range Interpretation Comments MCH (test code = MCH) 29.8 pg 27.0-31.0 [facility] CenterCmbyzqyEPAEZILSTM6407-64-63 11:14:00 Test Item Value Reference Range Interpretation Comments MCHC (test code = MCHC) 32.9 32.0-36.0 [facility] CenterUxjrucqPIISIQBOIS9293-15-97 11:14:00 Test Item Value Reference Range Interpretation Comments MCV (test code = MCV) 90.5 80.0-98.0 [facility] CenterLjxjtrwHAWXTPYPVH2245-66-03 11:14:00 Test Item Value Reference Range Interpretation Comments RBC (test code = RBC) 3.41 4.20-5.40 [facility] CenterYtrlojiXBAWBQCSDH3277-99-97 11:14:00 Test Item Value Reference Range Interpretation Comments WBC (test code = WBC) 8.1 3.7-10.4 [facility] CenterDceyzjuRICODXPIVP8643-01-72 11:14:00 Test Item Value Reference Range Interpretation Comments Hct (test code = Hct) 30.9 36.0-48.0 [facility] CenterEhqrciqNLTVJAPCUW2593-40-11 11:14:00 Test Item Value Reference Range Interpretation Comments Hgb (test code = Hgb) 10.2 12.0-16.0 [facility] CenterQuieouoGALQQIJKBF9103-16-04 11:14:00 Test Item Value Reference Range Interpretation Comments Basophils (test code = 1.1 See_Comment [Aut omated message] The Basophils) system which ge nerated this result tra nsmitted reference range : <=1.0. The reference r kemar was not used to int erpret this result as normal/abnormal . [facility] CenterOqulrbfHQOTXEGPDD4950-23-07 11:14:00 Test Item Value Reference Range Interpretation Comments Segs-Bands # (test code = Segs-Bands #) 5.4 1.5-8.1 [facility] CenterEbuddqgBXSJOVBYGF0056-42-85 11:14:00 Test Item Value Reference Range Interpretation Comments Basophils # (test code 0.1 See_Comment [Aut omated message] The = Basophils #) system which generated this result tra nsmitted reference range : <=0.2. The reference r kemar was not used to int erpret this result as normal/abnormal . [facility] CenterNpxzfuqNQILIAHXZC3815-24-10 11:14:00 Test Item Value Reference Range Interpretation Comments Lymphocytes # (test code = Lymphocytes 1.2 1.0-5.5 #) [facility] CenterRpklciuMEEKJAXJSR9141-74-88 11:14:00 Test Item Value Reference Range Interpretation Comments Monocytes # (test code 0.8 See_Comment [Aut omated message] The = Monocytes #) system which generated this result tra nsmitted reference range : <=0.8. The reference r kemar was not used to int erpret this result as normal/abnormal . [facility] CenterSqgtvpsMZSJHIHSWG1650-42-28 11:14:00 Test Item Value Reference Range Interpretation Comments Eosinophils # (test code 0.6 See_Comment [A utomated message] The = Eosinophils #) system whic h generated this result tra nsmitted reference range : <=0.5. The reference r kemar was not used to int erpret this result as normal/abnormal . [facility] CenterNotgfvaQLBYUKGWLQ9893-74-93 11:14:00 Test Item Value Reference Range Interpretation Comments Segs (test code = Segs) 66.7 45.0-75.0 [facility] CenterGkyovrtZJMTJYIGNJ7976-79-93 11:14:00 Test Item Value Reference Range Interpretation Comments Lymphocytes (test code = Lymphocytes) 15.1 20.0-40.0 [facility] CenterZsqnfjaFCNFAQRZLK8395-12-90 11:14:00 Test Item Value Reference Range Interpretation Comments Monocytes (test code = Monocytes) 9.7 2.0-12.0 [facility] CenterXzblyfwGAOPQZXYAG8480-61-82 11:14:00 Test Item Value Reference Range Interpretation Comments Eosinophils (test code = 7.4 See_Comment [A utomated message] The Eosinophils) system which ge nerated this result tra nsmitted reference range : <=4.0. The reference r kemar was not used to int erpret this result as normal/abnormal . [facility]VymtfgoPBYGBCHTJSCJ1558-56-91 11:14:00 Test Item Value Reference Range Interpretation Comments AGAP (test code = AGAP) 11.7 10.0-20.0 [facility] SystemDgqxrvdFLWNTPWKYOSZ2560-33-26 11:14:00 Test Item Value Reference Range Interpretation Comments eGFR (test code = eGFR) 99 [facility] SystemAksjokdCGSXMOXFYBBY5391-81-40 11:14:00 Test Item Value Reference Range Interpretation Comments CO2 (test code = CO2) 29 24-32 [facility] SystemShnvetpQIUEAYGVOGDD7719-19-59 11:14:00 Test Item Value Reference Range Interpretation Comments Chloride Lvl (test code = Chloride Lvl) 104 95-109 [facility] SystemWjqapfdJYDQAXXMYBAV4610-93-37 11:14:00 Test Item Value Reference Range Interpretation Comments Potassium Lvl (test code = Potassium 3.7 3.5-5.1 Lvl) [facility] SystemMpkbvckBMBAVILZPHBA3982-39-17 11:14:00 Test Item Value Reference Range Interpretation Comments Sodium Lvl (test code = Sodium Lvl) 141 135-145 [facility] SystemZarwduzIQWSTHSYWMCK5149-54-24 11:14:00 Test Item Value Reference Range Interpretation Comments Creatinine Lvl (test code = Creatinine 0.40 0.50-1.40 Lvl) [facility] SystemShfpfifXWXIMFMKFYXU8920-54-45 11:14:00 Test Item Value Reference Range Interpretation Comments Calcium Lvl (test code = Calcium Lvl) 8.1 8.5-10.5 [facility] SystemPrizeppFHJKFBYHJDPS2762-44-04 11:14:00 Test Item Value Reference Range Interpretation Comments BUN (test code = BUN) 8 7-22 [facility] SystemRhacpisBWRRYUOKZAJJ4802-38-25 11:14:00 Test Item Value Reference Range Interpretation Comments Glucose Lvl (test code = Glucose Lvl) 94 70-99 [facility] CenterTfofbopXEFLJWONLJ4912-35-88 11:14:00 Test Item Value Reference Range Interpretation Comments RDW (test code = RDW) 16.6 11.5-14.5 [facility] CenterPdamynwNXRIZYMMXB4510-89-37 11:14:00 Test Item Value Reference Range Interpretation Comments MPV (test code = MPV) 7.2 7.4-10.4 [facility] CenterEdmvzskMVPBYWYQCX2707-35-34 11:14:00 Test Item Value Reference Range Interpretation Comments Platelet (test code = Platelet) 299 133-450 [facility] CenterFmhffmuVQMCQUDJKH3987-94-38 11:14:00 Test Item Value Reference Range Interpretation Comments MCH (test code = MCH) 29.8 pg 27.0-31.0 [facility] CenterJjpamhaVVNYXQOFBQ6235-65-45 11:14:00 Test Item Value Reference Range Interpretation Comments MCHC (test code = MCHC) 32.9 32.0-36.0 [facility] CenterOxxzykxDAPTOZNNXD7802-35-13 11:14:00 Test Item Value Reference Range Interpretation Comments MCV (test code = MCV) 90.5 80.0-98.0 [facility] CenterPksuqyhPLQVMTFXOW3454-55-84 11:14:00 Test Item Value Reference Range Interpretation Comments RBC (test code = RBC) 3.41 4.20-5.40 [facility] CenterZrqaxkhOBMZGYBKHI9665-44-00 11:14:00 Test Item Value Reference Range Interpretation Comments WBC (test code = WBC) 8.1 3.7-10.4 [facility] CenterJdsmxcdZULJGJKEGJ5635-94-67 11:14:00 Test Item Value Reference Range Interpretation Comments Hct (test code = Hct) 30.9 36.0-48.0 [facility] CenterJkkqjolQNAFSNKLSB1821-23-62 11:14:00 Test Item Value Reference Range Interpretation Comments Hgb (test code = Hgb) 10.2 12.0-16.0 [facility] CenterFoupdilKAUGRYOKVU0509-21-35 11:14:00 Test Item Value Reference Range Interpretation Comments Basophils (test code = 1.1 See_Comment [Aut omated message] The Basophils) system which ge nerated this result tra nsmitted reference range : <=1.0. The reference r kemar was not used to int erpret this result as normal/abnormal . [facility] CenterBkfjztqIBIYRHOUAU9408-21-83 11:14:00 Test Item Value Reference Range Interpretation Comments Segs-Bands # (test code = Segs-Bands #) 5.4 1.5-8.1 [facility] CenterJpwodabQTLRSIPRAJ2156-38-25 11:14:00 Test Item Value Reference Range Interpretation Comments Basophils # (test code 0.1 See_Comment [Aut omated message] The = Basophils #) system which generated this result tra nsmitted reference range : <=0.2. The reference r kemar was not used to int erpret this result as normal/abnormal . [facility] CenterPifiakdHFNRTXUVLE2289-93-76 11:14:00 Test Item Value Reference Range Interpretation Comments Lymphocytes # (test code = Lymphocytes 1.2 1.0-5.5 #) [facility] CenterBfszshoFDZANMXRJP9312-19-31 11:14:00 Test Item Value Reference Range Interpretation Comments Monocytes # (test code 0.8 See_Comment [Aut omated message] The = Monocytes #) system which generated this result tra nsmitted reference range : <=0.8. The reference r kemar was not used to int erpret this result as normal/abnormal . [facility] CenterWpbkxlwSFJPWSRSIA7621-81-18 11:14:00 Test Item Value Reference Range Interpretation Comments Eosinophils # (test code 0.6 See_Comment [A utomated message] The = Eosinophils #) system whic h generated this result tra nsmitted reference range : <=0.5. The reference r kemar was not used to int erpret this result as normal/abnormal . [facility] CenterDywrmhsGVWKBOXTKX6387-58-21 11:14:00 Test Item Value Reference Range Interpretation Comments Segs (test code = Segs) 66.7 45.0-75.0 [facility] CenterIzbazywNEHXDOJYSC9498-60-76 11:14:00 Test Item Value Reference Range Interpretation Comments Lymphocytes (test code = Lymphocytes) 15.1 20.0-40.0 [facility] CenterXccqkhmKSSEJYGVVO1194-18-01 11:14:00 Test Item Value Reference Range Interpretation Comments Monocytes (test code = Monocytes) 9.7 2.0-12.0 [facility] CenterBfjpxegGRKVLKVBUU8303-20-48 11:14:00 Test Item Value Reference Range Interpretation Comments Eosinophils (test code = 7.4 See_Comment [A utomated message] The Eosinophils) system which ge nerated this result tra nsmitted reference range : <=4.0. The reference r kemar was not used to int erpret this result as normal/abnormal . [facility] CenterPxlfowqDKGFQWBLZF7918-41-22 02:47:00 Test Item Value Reference Range Interpretation Comments Hct (test code = Hct) 30.2 36.0-48.0 [facility] CenterDlvnmdoFQZETXZNES3908-52-87 02:47:00 Test Item Value Reference Range Interpretation Comments Hgb (test code = Hgb) 10.1 12.0-16.0 [facility] CenterThbcsqoUWJKEPMIFG9465-43-55 02:47:00 Test Item Value Reference Range Interpretation Comments Hct (test code = Hct) 30.2 36.0-48.0 [facility] CenterGajgywmBLBROJENTD7541-33-71 02:47:00 Test Item Value Reference Range Interpretation Comments Hgb (test code = Hgb) 10.1 12.0-16.0 [facility] CenterIptidlsVMYHTGGARM2885-79-05 18:09:00 Test Item Value Reference Range Interpretation Comments Hgb (test code = Hgb) 9.4 12.0-16.0 [facility] CenterCsmvpsnTUOPLQRXYB2011-20-69 18:09:00 Test Item Value Reference Range Interpretation Comments Hct (test code = Hct) 27.9 36.0-48.0 [facility] CenterItpvbebZVNIQCHZQW9673-24-70 18:09:00 Test Item Value Reference Range Interpretation Comments Hgb (test code = Hgb) 9.4 12.0-16.0 [facility] CenterTnelmgpEDRDOFLEXV3358-81-96 18:09:00 Test Item Value Reference Range Interpretation Comments Hct (test code = Hct) 27.9 36.0-48.0 [facility] CenterFkotbonZPEGYNUZTS6087-68-19 10:49:00 Test Item Value Reference Range Interpretation Comments PT (test code = PT) 14.3 s 12.0-14.7 [facility] CenterQznyccuJFMAHTKUYP7879-54-31 10:49:00 Test Item Value Reference Range Interpretation Comments PTT (test code = PTT) 34.3 s 22.9-35.8 [facility] CenterAjwwmajFBXUBTHBRN5709-04-29 10:49:00 Test Item Value Reference Range Interpretation Comments INR (test code = INR) 1.08 0.85-1.17 [facility] CenterDqbnrfyDOXLGFOVRO9078-07-50 10:49:00 Test Item Value Reference Range Interpretation Comments Eosinophils (test code = 4.9 See_Comment [A utomated message] The Eosinophils) system which ge nerated this result tra nsmitted reference range : <=4.0. The reference r kemar was not used to int erpret this result as normal/abnormal . [facility] CenterDillvrjKENUPDBUOF1845-68-97 10:49:00 Test Item Value Reference Range Interpretation Comments Monocytes (test code = Monocytes) 8.3 2.0-12.0 [facility] CenterJqshszqUYJLJKXRUC1415-90-10 10:49:00 Test Item Value Reference Range Interpretation Comments Basophils # (test code 0.1 See_Comment [Aut omated message] The = Basophils #) system which generated this result tra nsmitted reference range : <=0.2. The reference r kemar was not used to int erpret this result as normal/abnormal . [facility] CenterJamcgypAUOMLWZTQV2624-13-03 10:49:00 Test Item Value Reference Range Interpretation Comments Lymphocytes # (test code = Lymphocytes 0.9 1.0-5.5 #) [facility] CenterUhacnhcBJAQWZPZHY5709-09-40 10:49:00 Test Item Value Reference Range Interpretation Comments Monocytes # (test code 0.8 See_Comment [Aut omated message] The = Monocytes #) system which generated this result tra nsmitted reference range : <=0.8. The reference r kemar was not used to int erpret this result as normal/abnormal . [facility] CenterElevdvdBQGRXILLVW1410-04-27 10:49:00 Test Item Value Reference Range Interpretation Comments Basophils (test code = 0.7 See_Comment [Aut omated message] The Basophils) system which ge nerated this result tra nsmitted reference range : <=1.0. The reference r kemar was not used to int erpret this result as normal/abnormal . [facility] CenterJnoztsnLTAEEPRMSV5216-08-62 10:49:00 Test Item Value Reference Range Interpretation Comments Segs-Bands # (test code = Segs-Bands #) 7.0 1.5-8.1 [facility] CenterHzqhmarEGAUHMMJQR2317-14-14 10:49:00 Test Item Value Reference Range Interpretation Comments Lymphocytes (test code = Lymphocytes) 9.9 20.0-40.0 [facility] CenterSmtsknhEFUJQKGWOO3882-45-58 10:49:00 Test Item Value Reference Range Interpretation Comments Segs (test code = Segs) 76.2 45.0-75.0 [facility] CenterEqkgpfyNDKYHKKPAN0170-90-82 10:49:00 Test Item Value Reference Range Interpretation Comments Eosinophils # (test code 0.5 See_Comment [A utomated message] The = Eosinophils #) system whic h generated this result tra nsmitted reference range : <=0.5. The reference r kemar was not used to int erpret this result as normal/abnormal . [facility] CenterEbfnscoQKHLCLBKZU7396-54-73 10:49:00 Test Item Value Reference Range Interpretation Comments WBC (test code = WBC) 9.2 3.7-10.4 [facility] CenterXegyebePTMCVOMHUS5356-35-99 10:49:00 Test Item Value Reference Range Interpretation Comments MPV (test code = MPV) 7.5 7.4-10.4 [facility] CenterFpxnxobHKXTUPPUAZ0432-77-28 10:49:00 Test Item Value Reference Range Interpretation Comments MCV (test code = MCV) 90.5 80.0-98.0 [facility] CenterAsnhyybRRUEIMLLAA0710-26-90 10:49:00 Test Item Value Reference Range Interpretation Comments MCH (test code = MCH) 30.0 pg 27.0-31.0 [facility] CenterHsqwellHOKPSGMSZQ9570-65-90 10:49:00 Test Item Value Reference Range Interpretation Comments MCHC (test code = MCHC) 33.1 32.0-36.0 [facility] CenterKtfnpugUAFNLGDVHO4486-13-72 10:49:00 Test Item Value Reference Range Interpretation Comments RBC (test code = RBC) 2.88 4.20-5.40 [facility] CenterXzdibpvGHBDRHJBAY6062-29-26 10:49:00 Test Item Value Reference Range Interpretation Comments Platelet (test code = Platelet) 246 133-450 [facility] CenterGjyaiyxZVTMFYOGRH6455-27-76 10:49:00 Test Item Value Reference Range Interpretation Comments RDW (test code = RDW) 16.9 11.5-14.5 [facility] CenterDqbabzrKQZFWJKOFF8275-82-57 10:49:00 Test Item Value Reference Range Interpretation Comments PT (test code = PT) 14.3 s 12.0-14.7 [facility] CenterEueyyuuHCUVGDCTXZ3856-11-40 10:49:00 Test Item Value Reference Range Interpretation Comments PTT (test code = PTT) 34.3 s 22.9-35.8 [facility] CenterTmnvntyBBUPPWYVSN7055-20-70 10:49:00 Test Item Value Reference Range Interpretation Comments INR (test code = INR) 1.08 0.85-1.17 [facility] CenterIxwoglvAEGBQQAMVD1743-77-91 10:49:00 Test Item Value Reference Range Interpretation Comments Eosinophils (test code = 4.9 See_Comment [A utomated message] The Eosinophils) system which ge nerated this result tra nsmitted reference range : <=4.0. The reference r kemar was not used to int erpret this result as normal/abnormal . [facility] CenterRilpupoJFLXECRBAH6280-99-00 10:49:00 Test Item Value Reference Range Interpretation Comments Monocytes (test code = Monocytes) 8.3 2.0-12.0 [facility] CenterLkftwysMOAHTPLLWC7333-99-65 10:49:00 Test Item Value Reference Range Interpretation Comments Basophils # (test code 0.1 See_Comment [Aut omated message] The = Basophils #) system which generated this result tra nsmitted reference range : <=0.2. The reference r kemar was not used to int erpret this result as normal/abnormal . [facility] CenterPbytpqkGCDYGDBXOB7216-85-01 10:49:00 Test Item Value Reference Range Interpretation Comments Lymphocytes # (test code = Lymphocytes 0.9 1.0-5.5 #) [facility] CenterNjgqljiPKUPBVIZDU9114-55-94 10:49:00 Test Item Value Reference Range Interpretation Comments Monocytes # (test code 0.8 See_Comment [Aut omated message] The = Monocytes #) system which generated this result tra nsmitted reference range : <=0.8. The reference r kemar was not used to int erpret this result as normal/abnormal . [facility] CenterLtvucwuYRHBGJJZFE3739-01-27 10:49:00 Test Item Value Reference Range Interpretation Comments Basophils (test code = 0.7 See_Comment [Aut omated message] The Basophils) system which ge nerated this result tra nsmitted reference range : <=1.0. The reference r kemar was not used to int erpret this result as normal/abnormal . [facility] CenterZpirwusVTEWTBIPSE7786-79-86 10:49:00 Test Item Value Reference Range Interpretation Comments Segs-Bands # (test code = Segs-Bands #) 7.0 1.5-8.1 [facility] CenterHsqmlgxQJPJJFNBTP6178-66-81 10:49:00 Test Item Value Reference Range Interpretation Comments Lymphocytes (test code = Lymphocytes) 9.9 20.0-40.0 [facility] CenterOllmuckEQRQUFSJQP9551-66-57 10:49:00 Test Item Value Reference Range Interpretation Comments Segs (test code = Segs) 76.2 45.0-75.0 [facility] CenterQfikxmqFGPYSWQKUV0735-37-23 10:49:00 Test Item Value Reference Range Interpretation Comments Eosinophils # (test code 0.5 See_Comment [A utomated message] The = Eosinophils #) system [employer]ic h generated this result tra nsmitted reference range : <=0.5. The reference r kemar was not used to int erpret this result as normal/abnormal . [facility] CenterQikubgaSUSKUKVPJU2424-95-35 10:49:00 Test Item Value Reference Range Interpretation Comments WBC (test code = WBC) 9.2 3.7-10.4 [facility] CenterKjcklgbDDUVLIXGMJ2497-37-71 10:49:00 Test Item Value Reference Range Interpretation Comments MPV (test code = MPV) 7.5 7.4-10.4 [facility] CenterDxuwwykWSOUGXHQCC8125-87-89 10:49:00 Test Item Value Reference Range Interpretation Comments MCV (test code = MCV) 90.5 80.0-98.0 [facility] CenterXvlshcyHMDZLLVURR5563-60-45 10:49:00 Test Item Value Reference Range Interpretation Comments MCH (test code = MCH) 30.0 pg 27.0-31.0 [facility] CenterIozuxkdMECULUSBFA0002-55-62 10:49:00 Test Item Value Reference Range Interpretation Comments MCHC (test code = MCHC) 33.1 32.0-36.0 [facility] CenterAsqirtcONUFOKXHLX9817-83-51 10:49:00 Test Item Value Reference Range Interpretation Comments RBC (test code = RBC) 2.88 4.20-5.40 [facility] CenterWkgnjacDDWCJVIILF6096-27-50 10:49:00 Test Item Value Reference Range Interpretation Comments Platelet (test code = Platelet) 246 133-450 [facility] CenterUdtvutmXUZBXUANOM1654-82-78 10:49:00 Test Item Value Reference Range Interpretation Comments RDW (test code = RDW) 16.9 11.5-14.5 [facility] AND [id number] 23:46:00 Test Item Value Reference Range Interpretation Comments UA Urobilinogen (test code = UA no gt 0.1-1.0 Urobilinogen) [facility] AND [id number] 23:46:00 Test Item Value Reference Range Interpretation Comments Micro? (test code = Performed *NA*(10/26/15 Micro?) 5:46 PM) [facility] AND [id number] 23:46:00 Test Item Value Reference Range Interpretation Comments UA RBC (test code = no gt See_Comment [Automa dewey message] The UA RBC) system which ge nerated this result transmit dewey reference range : <=2. The reference range was not used to interpr et this result as deyvi l/abnormal. [facility] AND [id number] 23:46:00 Test Item Value Reference Range Interpretation Comments UA Bacteria (test code = UA Occasional /HPF Bacteria) [facility] AND [id number] 23:46:00 Test Item Value Reference Range Interpretation Comments UA Bili (test code = Negative *NA*(10/26/15 UA Bili) 5:46 PM) [facility] AND [id number] 23:46:00 Test Item Value Reference Range Interpretation Comments UA Protein (test code = UA Negative mg/dL Protein) [facility] AND [id number] 23:46:00 Test Item Value Reference Range Interpretation Comments UA Glucose (test code = UA Negative mg/dL Glucose) [facility] AND [id number] 23:46:00 Test Item Value Reference Range Interpretation Comments UA Ketones (test code = UA Negative mg/dL Ketones) [facility] AND [id number] 23:46:00 Test Item Value Reference Range Interpretation Comments UA WBC (test code = 1 See_Comment [Automa dewey message] The UA WBC) system which ge nerated this result transmit dewey reference range : <=5. The reference range was not used to interpr et this result as deyvi l/abnormal. [facility] AND [id number] 23:46:00 Test Item Value Reference Range Interpretation Comments UA Sq Epi (test code = UA Sq Occasional /LPF Epi) [facility] AND [id number] 23:46:00 Test Item Value Reference Range Interpretation Comments UA Leuk Est (test code Trace *ABN*(10/26/15 = UA Leuk Est) 5:46 PM) [facility] AND [id number] 23:46:00 Test Item Value Reference Range Interpretation Comments UA Nitrite (test code Negative (10/26/15 5:46 = UA Nitrite) PM) [facility] AND [id number] 23:46:00 Test Item Value Reference Range Interpretation Comments UA Blood (test code = Negative (10/26/15 5:46 UA Blood) PM) [facility] AND [id number] 23:46:00 Test Item Value Reference Range Interpretation Comments UA Turbidity (test code = Clear (10/26/15 5:46 UA Turbidity) PM) [facility] AND [id number] 23:46:00 Test Item Value Reference Range Interpretation Comments UA Spec Grav (test code = UA Spec Grav) 1.006 [facility] AND [id number] 23:46:00 Test Item Value Reference Range Interpretation Comments UA pH (test code = UA pH) 6.0 5.0-8.0 [facility] AND [id number] 23:46:00 Test Item Value Reference Range Interpretation Comments UA Color (test code = Light Yellow UA Color) *NA*(10/26/15 5:46 PM) [facility] AND [id number] 23:46:00 Test Item Value Reference Range Interpretation Comments UA Urobilinogen (test code = UA no gt 0.1-1.0 Urobilinogen) [facility] AND [id number] 23:46:00 Test Item Value Reference Range Interpretation Comments Micro? (test code = Performed *NA*(10/26/15 Micro?) 5:46 PM) [facility] AND [id number] 23:46:00 Test Item Value Reference Range Interpretation Comments UA RBC (test code = no gt See_Comment [Automa dewey message] The UA RBC) system which ge nerated this result transmit dewey reference range : <=2. The reference range was not used to interpr et this result as deyvi l/abnormal. [facility] AND [id number] 23:46:00 Test Item Value Reference Range Interpretation Comments UA Bacteria (test code = UA Occasional /HPF Bacteria) [facility] AND [id number] 23:46:00 Test Item Value Reference Range Interpretation Comments UA Bili (test code = Negative *NA*(10/26/15 UA Bili) 5:46 PM) [facility] AND [id number] 23:46:00 Test Item Value Reference Range Interpretation Comments UA Protein (test code = UA Negative mg/dL Protein) [facility] AND [id number] 23:46:00 Test Item Value Reference Range Interpretation Comments UA Glucose (test code = UA Negative mg/dL Glucose) [facility] AND [id number] 23:46:00 Test Item Value Reference Range Interpretation Comments UA Ketones (test code = UA Negative mg/dL Ketones) [facility] AND [id number] 23:46:00 Test Item Value Reference Range Interpretation Comments UA WBC (test code = 1 See_Comment [Automa dewey message] The UA WBC) system which ge nerated this result transmit dewey reference range : <=5. The reference range was not used to interpr et this result as deyvi l/abnormal. [facility] AND [id number] 23:46:00 Test Item Value Reference Range Interpretation Comments UA Sq Epi (test code = UA Sq Occasional /LPF Epi) [facility] AND [id number] 23:46:00 Test Item Value Reference Range Interpretation Comments UA Leuk Est (test code Trace *ABN*(10/26/15 = UA Leuk Est) 5:46 PM) [facility] AND [id number] 23:46:00 Test Item Value Reference Range Interpretation Comments UA Nitrite (test code Negative (10/26/15 5:46 = UA Nitrite) PM) [facility] AND [id number] 23:46:00 Test Item Value Reference Range Interpretation Comments UA Blood (test code = Negative (10/26/15 5:46 UA Blood) PM) [facility] AND [id number] 23:46:00 Test Item Value Reference Range Interpretation Comments UA Turbidity (test code = Clear (10/26/15 5:46 UA Turbidity) PM) [facility] AND [id number] 23:46:00 Test Item Value Reference Range Interpretation Comments UA Spec Grav (test code = UA Spec Grav) 1.006 [facility] AND [id number] 23:46:00 Test Item Value Reference Range Interpretation Comments UA pH (test code = UA pH) 6.0 5.0-8.0 [facility] AND [id number] 23:46:00 Test Item Value Reference Range Interpretation Comments UA Color (test code = Light Yellow UA Color) *NA*(10/26/15 5:46 PM) [facility] [id number] 10:09:00 Test Item Value Reference Range Interpretation Comments Ca Norm WB (test code = Ca Norm WB) 1.09 1.05-1.25 [facility] [employer] [id number] 10:09:00 Test Item Value Reference Range Interpretation Comments ABO/Rh (test code = ABO/Rh) O POS [facility] [employer] [id number] 10:09:00 Test Item Value Reference Range Interpretation Comments Antibody Scrn (test Negative (10/26/15 4:09 code = Antibody Scrn) AM) [facility] [employer] [id number] 10:09:00 Test Item Value Reference Range Interpretation Comments eGFR (test code = eGFR) 99 [facility] [employer] [id number] 10:09:00 Test Item Value Reference Range Interpretation Comments Calcium Lvl (test code = Calcium Lvl) 7.4 8.5-10.5 [facility] [employer] [id number] 10:09:00 Test Item Value Reference Range Interpretation Comments CO2 (test code = CO2) 30 24-32 [facility] [employer] [id number] 10:09:00 Test Item Value Reference Range Interpretation Comments Chloride Lvl (test code = Chloride Lvl) 103 95-109 [facility] [employer] [id number] 10:09:00 Test Item Value Reference Range Interpretation Comments Sodium Lvl (test code = Sodium Lvl) 141 135-145 [facility] [employer] [id number] 10:09:00 Test Item Value Reference Range Interpretation Comments Potassium Lvl (test code = Potassium 3.6 3.5-5.1 Lvl) [facility] [employer] [id number] 10:09:00 Test Item Value Reference Range Interpretation Comments BUN (test code = BUN) 13 7-22 [facility]2016-02-12 10:09:00 Test Item Value Reference Range Interpretation Comments Creatinine Lvl (test code = Creatinine 0.40 0.50-1.40 Lvl) [facility]2016-02-12 10:09:00 Test Item Value Reference Range Interpretation Comments Glucose Lvl (test code = Glucose Lvl) 124 70-99 [facility]2016-02-12 10:09:00 Test Item Value Reference Range Interpretation Comments AGAP (test code = AGAP) 11.6 10.0-20.0 [facility]2016-02-12 10:09:00 Test Item Value Reference Range Interpretation Comments Phosphorus (test code = Phosphorus) 2.4 2.5-4.5 [facility]2016-02-12 10:09:00 Test Item Value Reference Range Interpretation Comments Magnesium Lvl (test code = Magnesium 1.9 1.8-2.4 Lvl) [facility] [id number] 10:09:00 Test Item Value Reference Range Interpretation Comments Basophils (test code = 0.4 See_Comment [Aut omated message] The Basophils) system which ge nerated this result tra nsmitted reference range : <=1.0. The reference r kemar was not used to int erpret this result as normal/abnormal . [facility] CenterKquhouoKIJZHPFDTG2713-14-58 10:09:00 Test Item Value Reference Range Interpretation Comments Segs-Bands # (test code = Segs-Bands #) 9.0 1.5-8.1 [facility] [id number] 10:09:00 Test Item Value Reference Range Interpretation Comments Monocytes (test code = Monocytes) 7.1 2.0-12.0 [facility] Cent[id number] 10:09:00 Test Item Value Reference Range Interpretation Comments Lymphocytes (test code = Lymphocytes) 9.6 20.0-40.0 [facility] [id number] 10:09:00 Test Item Value Reference Range Interpretation Comments Lymphocytes # (test code = Lymphocytes 1.1 1.0-5.5 #) [facility] [id number] 10:09:00 Test Item Value Reference Range Interpretation Comments Eosinophils (test code = 3.4 See_Comment [A utomated message] The Eosinophils) system which ge nerated this result tra nsmitted reference range : <=4.0. The reference r kemar was not used to int erpret this result as normal/abnormal . [facility] [id number] 10:09:00 Test Item Value Reference Range Interpretation Comments Eosinophils # (test code 0.4 See_Comment [A utomated message] The = Eosinophils #) system whic h generated this result tra nsmitted reference range : <=0.5. The reference r kemar was not used to int erpret this result as normal/abnormal . [facility] CenterAjbrgpeEDMRRJYUED1761-53-26 10:09:00 Test Item Value Reference Range Interpretation Comments Basophils # (test code 0.0 See_Comment [Aut omated message] The = Basophils #) system which generated this result tra nsmitted reference range : <=0.2. The reference r kemar was not used to int erpret this result as normal/abnormal . [facility] CenterSyteikwVBNFOBHBRP6289-09-21 10:09:00 Test Item Value Reference Range Interpretation Comments Monocytes # (test code 0.8 See_Comment [Aut omated message] The = Monocytes #) system which generated this result tra nsmitted reference range : <=0.8. The reference r kemar was not used to int erpret this result as normal/abnormal . [facility] [id number] 10:09:00 Test Item Value Reference Range Interpretation Comments Segs (test code = Segs) 79.5 45.0-75.0 [facility] Cent[id number] 10:09:00 Test Item Value Reference Range Interpretation Comments MCH (test code = MCH) 29.9 pg 27.0-31.0 [facility] CenterGetcywsFRYGHSELSE2767-22-28 10:09:00 Test Item Value Reference Range Interpretation Comments RBC (test code = RBC) 2.93 4.20-5.40 [facility] CenterVmxromfGHNZWAJKFR0556-69-26 10:09:00 Test Item Value Reference Range Interpretation Comments MPV (test code = MPV) 7.4 7.4-10.4 [facility] [id number] 10:09:00 Test Item Value Reference Range Interpretation Comments RDW (test code = RDW) 17.7 11.5-14.5 [facility] DentonDedbtibHUAQDVLOJX2510-57-30 10:09:00 Test Item Value Reference Range Interpretation Comments MCHC (test code = MCHC) 32.8 32.0-36.0 [facility] CenterLfmajfeJVRJULFKFB9182-96-65 10:09:00 Test Item Value Reference Range Interpretation Comments Platelet (test code = Platelet) 182 133-450 [facility] [id number] 10:09:00 Test Item Value Reference Range Interpretation Comments MCV (test code = MCV) 91.2 80.0-98.0 [facility] [id number] 10:09:00 Test Item Value Reference Range Interpretation Comments WBC (test code = WBC) 11.3 3.7-10.4 [facility] TexasInExchangeBANNER MD ANDERSON CANCER CENTERGEOLIDROID [id number] 10:09:00 Test Item Value Reference Range Interpretation Comments Ca Ion WB (test code = Ca Ion WB) 1.08 1.05-1.25 [facility]ienceNEWBERR[facility] [id number] 10:09:00 Test Item Value Reference Range Interpretation Comments Ca Norm WB (test code = Ca Norm WB) 1.09 1.05-1.25 [facility] [employer] [id number] 10:09:00 Test Item Value Reference Range Interpretation Comments ABO/Rh (test code = ABO/Rh) O POS [facility] [employer] [id number] 10:09:00 Test Item Value Reference Range Interpretation Comments Antibody Scrn (test Negative (10/26/15 4:09 code = Antibody Scrn) AM) [facility] [employer] [id number] 10:09:00 Test Item Value Reference Range Interpretation Comments eGFR (test code = eGFR) 99 [facility] [employer] [id number] 10:09:00 Test Item Value Reference Range Interpretation Comments Calcium Lvl (test code = Calcium Lvl) 7.4 8.5-10.5 [facility] [employer] [id number] 10:09:00 Test Item Value Reference Range Interpretation Comments CO2 (test code = CO2) 30 24-32 [facility] [id number] 10:09:00 Test Item Value Reference Range Interpretation Comments Chloride Lvl (test code = Chloride Lvl) 103 95-109 [facility]2016-02-12 10:09:00 Test Item Value Reference Range Interpretation Comments Sodium Lvl (test code = Sodium Lvl) 141 135-145 [facility]2016-02-12 10:09:00 Test Item Value Reference Range Interpretation Comments Potassium Lvl (test code = Potassium 3.6 3.5-5.1 Lvl) [facility]2016-02-12 10:09:00 Test Item Value Reference Range Interpretation Comments BUN (test code = BUN) 13 7-22 [facility]2016-02-12 10:09:00 Test Item Value Reference Range Interpretation Comments Creatinine Lvl (test code = Creatinine 0.40 0.50-1.40 Lvl) [facility]2016-02-12 10:09:00 Test Item Value Reference Range Interpretation Comments Glucose Lvl (test code = Glucose Lvl) 124 70-99 [facility]2016-02-12 10:09:00 Test Item Value Reference Range Interpretation Comments AGAP (test code = AGAP) 11.6 10.0-20.0 [facility]2016-02-12 10:09:00 Test Item Value Reference Range Interpretation Comments Phosphorus (test code = Phosphorus) 2.4 2.5-4.5 [facility]2016-02-12 10:09:00 Test Item Value Reference Range Interpretation Comments Magnesium Lvl (test code = Magnesium 1.9 1.8-2.4 Lvl) [facility] [id number] 10:09:00 Test Item Value Reference Range Interpretation Comments Basophils (test code = 0.4 See_Comment [Aut omated message] The Basophils) system which ge nerated this result tra nsmitted reference range : <=1.0. The reference r kemar was not used to int erpret this result as normal/abnormal . [facility] Cent[id number] 10:09:00 Test Item Value Reference Range Interpretation Comments Segs-Bands # (test code = Segs-Bands #) 9.0 1.5-8.1 [facility] CenterKdqlccqXLLKDDDGRC3342-16-16 10:09:00 Test Item Value Reference Range Interpretation Comments Monocytes (test code = Monocytes) 7.1 2.0-12.0 [facility] CenterHvemuicCKFAFLIPWH6442-42-48 10:09:00 Test Item Value Reference Range Interpretation Comments Lymphocytes (test code = Lymphocytes) 9.6 20.0-40.0 [facility] CenterUgmkjaqWCXQJOBFVD4425-43-03 10:09:00 Test Item Value Reference Range Interpretation Comments Lymphocytes # (test code = Lymphocytes 1.1 1.0-5.5 #) [facility] CenterSsrkyfaMGXPVHOJOG5799-08-22 10:09:00 Test Item Value Reference Range Interpretation Comments Eosinophils (test code = 3.4 See_Comment [A utomated message] The Eosinophils) system which ge nerated this result tra nsmitted reference range : <=4.0. The reference r kemar was not used to int erpret this result as normal/abnormal . [facility] CenterMjiuzegAUMRORNIFR2607-30-32 10:09:00 Test Item Value Reference Range Interpretation Comments Eosinophils # (test code 0.4 See_Comment [A utomated message] The = Eosinophils #) system whic h generated this result tra nsmitted reference range : <=0.5. The reference r kemar was not used to int erpret this result as normal/abnormal . [facility] CenterMpmktkwBDWNKPTVXG9851-51-53 10:09:00 Test Item Value Reference Range Interpretation Comments Basophils # (test code 0.0 See_Comment [Aut omated message] The = Basophils #) system which generated this result tra nsmitted reference range : <=0.2. The reference r kemar was not used to int erpret this result as normal/abnormal . [facility] CenterTojqwjjRVILULPGMS1785-24-31 10:09:00 Test Item Value Reference Range Interpretation Comments Monocytes # (test code 0.8 See_Comment [Aut omated message] The = Monocytes #) system which generated this result tra nsmitted reference range : <=0.8. The reference r kemar was not used to int erpret this result as normal/abnormal . [facility] CenterDqbrlelTJFWGGKISA7403-29-87 10:09:00 Test Item Value Reference Range Interpretation Comments Segs (test code = Segs) 79.5 45.0-75.0 [facility] CenterOaipvfcKNSVETKAAE6174-45-32 10:09:00 Test Item Value Reference Range Interpretation Comments MCH (test code = MCH) 29.9 pg 27.0-31.0 [facility] CenterRglcphuXOGRCGFAEM9030-10-54 10:09:00 Test Item Value Reference Range Interpretation Comments RBC (test code = RBC) 2.93 4.20-5.40 [facility]TezlnuqDUMRDGKFKF6474-38-94 10:09:00 Test Item Value Reference Range Interpretation Comments MPV (test code = MPV) 7.4 7.4-10.4 [facility] HospitalYqhbwncAHCFYJBFIW3835-21-43 10:09:00 Test Item Value Reference Range Interpretation Comments RDW (test code = RDW) 17.7 11.5-14.5 [facility] HospitalTgovgkbPVEFBMZNJT0748-67-35 10:09:00 Test Item Value Reference Range Interpretation Comments MCHC (test code = MCHC) 32.8 32.0-36.0 [facility] CenterIcfykfbUJECCIBHOR0738-67-40 10:09:00 Test Item Value Reference Range Interpretation Comments Platelet (test code = Platelet) 182 133-450 [facility] HospitalRotkcfzMITQQWMIBD6803-91-30 10:09:00 Test Item Value Reference Range Interpretation Comments MCV (test code = MCV) 91.2 80.0-98.0 [facility] HospitalHezfaebWVIRLFNHKU5782-89-24 10:09:00 Test Item Value Reference Range Interpretation Comments WBC (test code = WBC) 11.3 3.7-10.4 [facility] [id number] 10:09:00 Test Item Value Reference Range Interpretation Comments Ca Ion WB (test code = Ca Ion WB) 1.08 1.05-1.25 [facility] [id number] 22:16:00 Test Item Value Reference Range Interpretation Comments RBC product (test code Product available = RBC product) (10/25/15 4:16 PM) [facility] BANK [id number] 22:16:00 Test Item Value Reference Range Interpretation Comments RBC product (test code Product available = RBC product) (10/25/15 4:16 PM) [facility] CenterTevhaocXRNKLKCJTI3398-06-39 16:21:00 Test Item Value Reference Range Interpretation Comments Polychrom (test code = Moderate *ABN*(10/25/15 Polychrom) 10:21 AM) [facility] CenterLsvvbrjAZOYSVJHZL9343-61-40 16:21:00 Test Item Value Reference Range Interpretation Comments Plt Morph (test code = Normal (10/25/15 10:21 Plt Morph) AM) [facility] CenterOzdvkwdYJBPZMWSBK5925-75-91 16:21:00 Test Item Value Reference Range Interpretation Comments Baso Stipplin (test Moderate *ABN*(10/25/15 code = Baso Stipplin) 10:21 AM) [facility] CenterMpklmjyVYXHNILVYT7238-86-72 16:21:00 Test Item Value Reference Range Interpretation Comments PTT (test code = PTT) 33.0 s 22.9-35.8 [facility] CenterGubddmaALOIQRRJGW0755-82-15 16:21:00 Test Item Value Reference Range Interpretation Comments INR (test code = INR) 1.18 0.85-1.17 [facility] CenterFgjhbalUNBELQEKEQ0193-98-22 16:21:00 Test Item Value Reference Range Interpretation Comments PT (test code = PT) 15.3 s 12.0-14.7 [facility] CenterYuahorlRDBTNFHGJM2800-56-84 16:21:00 Test Item Value Reference Range Interpretation Comments Polychrom (test code = Moderate *ABN*(10/25/15 Polychrom) 10:21 AM) [facility] CenterLfgitfdEQTYCFWXSO2661-35-52 16:21:00 Test Item Value Reference Range Interpretation Comments Plt Morph (test code = Normal (10/25/15 10:21 Plt Morph) AM) [facility] CenterKcpcshcLCYAQXNZHW8032-12-07 16:21:00 Test Item Value Reference Range Interpretation Comments Baso Stipplin (test Moderate *ABN*(10/25/15 code = Baso Stipplin) 10:21 AM) [facility] CenterEfktodcFMFSAZTSFZ3630-64-54 16:21:00 Test Item Value Reference Range Interpretation Comments PTT (test code = PTT) 33.0 s 22.9-35.8 [facility] CenterAubgdmnIYNOMOXEPI9745-17-55 16:21:00 Test Item Value Reference Range Interpretation Comments INR (test code = INR) 1.18 0.85-1.17 [facility] Cent[id number] 16:21:00 Test Item Value Reference Range Interpretation Comments PT (test code = PT) 15.3 s 12.0-14.7 [facility] [id number] 08:39:00 Test Item Value Reference Range Interpretation Comments RBC product (test code Product available = RBC product) (10/25/15 2:39 AM) [facility] BANK [id number] 08:39:00 Test Item Value Reference Range Interpretation Comments RBC product (test code Product available = RBC product) (10/25/15 2:39 AM) [facility]2016-02-11 07:39:00 Test Item Value Reference Range Interpretation Comments Magnesium Lvl (test code = Magnesium 1.7 1.8-2.4 Lvl) [facility]2016-02-11 07:39:00 Test Item Value Reference Range Interpretation Comments eGFR (test code = eGFR) 99 [facility]2016-02-11 07:39:00 Test Item Value Reference Range Interpretation Comments Calcium Lvl (test code = Calcium Lvl) 7.4 8.5-10.5 [facility]2016-02-11 07:39:00 Test Item Value Reference Range Interpretation Comments AGAP (test code = AGAP) 12.4 10.0-20.0 [facility]2016-02-11 07:39:00 Test Item Value Reference Range Interpretation Comments Glucose Lvl (test code = Glucose Lvl) 137 70-99 [facility]2016-02-11 07:39:00 Test Item Value Reference Range Interpretation Comments BUN (test code = BUN) 16 7-22 [facility]2016-02-11 07:39:00 Test Item Value Reference Range Interpretation Comments Creatinine Lvl (test code = Creatinine 0.40 0.50-1.40 Lvl) [facility]2016-02-11 07:39:00 Test Item Value Reference Range Interpretation Comments Sodium Lvl (test code = Sodium Lvl) 141 135-145 [facility]2016-02-11 07:39:00 Test Item Value Reference Range Interpretation Comments Potassium Lvl (test code = Potassium 3.4 3.5-5.1 Lvl) [facility]2016-02-11 07:39:00 Test Item Value Reference Range Interpretation Comments Chloride Lvl (test code = Chloride Lvl) 105 95-109 [facility]2016-02-11 07:39:00 Test Item Value Reference Range Interpretation Comments CO2 (test code = CO2) 27 24-32 [facility]2016-02-11 07:39:00 Test Item Value Reference Range Interpretation Comments Phosphorus (test code = Phosphorus) 3.1 2.5-4.5 [facility] [id number] 07:39:00 Test Item Value Reference Range Interpretation Comments Baso Stipplin (test Moderate *ABN*(10/25/15 code = Baso Stipplin) 1:39 AM) [facility] CenterIxpaxyoJJRGYMOVVB4321-28-28 07:39:00 Test Item Value Reference Range Interpretation Comments Polychrom (test code = Moderate *ABN*(10/25/15 Polychrom) 1:39 AM) [facility] CenterKnglsqoTALWDJHQOI4336-90-92 07:39:00 Test Item Value Reference Range Interpretation Comments Plt Morph (test code = Normal (10/25/15 1:39 Plt Morph) AM) [facility] [id number] 07:39:00 Test Item Value Reference Range Interpretation Comments Ca Norm WB (test code = Ca Norm WB) 1.08 1.05-1.25 [facility] [id number] 07:39:00 Test Item Value Reference Range Interpretation Comments Ca Ion WB (test code = Ca Ion WB) 1.05 1.05-1.25 [facility]2016-02-11 07:39:00 Test Item Value Reference Range Interpretation Comments Magnesium Lvl (test code = Magnesium 1.7 1.8-2.4 Lvl) [facility]2016-02-11 07:39:00 Test Item Value Reference Range Interpretation Comments eGFR (test code = eGFR) 99 [facility]2016-02-11 07:39:00 Test Item Value Reference Range Interpretation Comments Calcium Lvl (test code = Calcium Lvl) 7.4 8.5-10.5 [facility]2016-02-11 07:39:00 Test Item Value Reference Range Interpretation Comments AGAP (test code = AGAP) 12.4 10.0-20.0 [facility]2016-02-11 07:39:00 Test Item Value Reference Range Interpretation Comments Glucose Lvl (test code = Glucose Lvl) 137 70-99 [facility]2016-02-11 07:39:00 Test Item Value Reference Range Interpretation Comments BUN (test code = BUN) 16 7-22 [facility]2016-02-11 07:39:00 Test Item Value Reference Range Interpretation Comments Creatinine Lvl (test code = Creatinine 0.40 0.50-1.40 Lvl) [facility]2016-02-11 07:39:00 Test Item Value Reference Range Interpretation Comments Sodium Lvl (test code = Sodium Lvl) 141 135-145 [facility]2016-02-11 07:39:00 Test Item Value Reference Range Interpretation Comments Potassium Lvl (test code = Potassium 3.4 3.5-5.1 Lvl) [facility]2016-02-11 07:39:00 Test Item Value Reference Range Interpretation Comments Chloride Lvl (test code = Chloride Lvl) 105 95-109 [facility]2016-02-11 07:39:00 Test Item Value Reference Range Interpretation Comments CO2 (test code = CO2) 27 24-32 [facility]2016-02-11 07:39:00 Test Item Value Reference Range Interpretation Comments Phosphorus (test code = Phosphorus) 3.1 2.5-4.5 [facility] [id number] 07:39:00 Test Item Value Reference Range Interpretation Comments Baso Stipplin (test Moderate *ABN*(10/25/15 code = Baso Stipplin) 1:39 AM) [facility] Cent[id number] 07:39:00 Test Item Value Reference Range Interpretation Comments Polychrom (test code = Moderate *ABN*(10/25/15 Polychrom) 1:39 AM) [facility] CenterRjzuagoUBFMZZZUPC4629-42-38 07:39:00 Test Item Value Reference Range Interpretation Comments Plt Morph (test code = Normal (10/25/15 1:39 Plt Morph) AM) [facility] [id number] 07:39:00 Test Item Value Reference Range Interpretation Comments Ca Norm WB (test code = Ca Norm WB) 1.08 1.05-1.25 [facility] HospitalATHY[facility] [id number] 07:39:00 Test Item Value Reference Range Interpretation Comments Ca Ion WB (test code = Ca Ion WB) 1.05 1.05-1.25 [facility]2016-02-10 14:17:00 Test Item Value Reference Range Interpretation Comments Lactic Acid Lvl (test code = Lactic 1.0 0.5-2.2 Acid Lvl) [facility]2016-02-10 14:17:00 Test Item Value Reference Range Interpretation Comments Lactic Acid Lvl (test code = Lactic 1.0 0.5-2.2 Acid Lvl) [facility]2016-02-10 10:16:00 Test Item Value Reference Range Interpretation Comments Phosphorus (test code = Phosphorus) 3.7 2.5-4.5 [facility]2016-02-10 10:16:00 Test Item Value Reference Range Interpretation Comments Magnesium Lvl (test code = Magnesium 1.7 1.8-2.4 Lvl) [facility] Cent[id number] 10:16:00 Test Item Value Reference Range Interpretation Comments INR (test code = INR) 1.18 0.85-1.17 [facility] [id number] 10:16:00 Test Item Value Reference Range Interpretation Comments PT (test code = PT) 15.3 s 12.0-14.7 [facility] C[id number] 10:16:00 Test Item Value Reference Range Interpretation Comments PTT (test code = PTT) 27.8 s 22.9-35.8 [facility]2016-02-10 10:16:00 Test Item Value Reference Range Interpretation Comments Ca Norm WB (test code = Ca Norm WB) 1.08 1.05-1.25 [facility]2016-02-10 10:16:00 Test Item Value Reference Range Interpretation Comments Ca Ion WB (test code = Ca Ion WB) 1.08 1.05-1.25 [facility]2016-02-10 10:16:00 Test Item Value Reference Range Interpretation Comments Phosphorus (test code = Phosphorus) 3.7 2.5-4.5 [facility]2016-02-10 10:16:00 Test Item Value Reference Range Interpretation Comments Magnesium Lvl (test code = Magnesium 1.7 1.8-2.4 Lvl) [facility] [id number] 10:16:00 Test Item Value Reference Range Interpretation Comments INR (test code = INR) 1.18 0.85-1.17 [facility] [id number] 10:16:00 Test Item Value Reference Range Interpretation Comments PT (test code = PT) 15.3 s 12.0-14.7 [place] [id number] 10:16:00 Test Item Value Reference Range Interpretation Comments PTT (test code = PTT) 27.8 s 22.9-35.8 [facility] [id number] 10:16:00 Test Item Value Reference Range Interpretation Comments Ca Norm WB (test code = Ca Norm WB) 1.08 1.05-1.25 [facility] [id number] 10:16:00 Test Item Value Reference Range Interpretation Comments Ca Ion WB (test code = Ca Ion WB) 1.08 1.05-1.25 [facility] BANK [id number] 04:44:00 Test Item Value Reference Range Interpretation Comments RBC product (test code Product available = RBC product) (10/22/15 10:44 PM) [facility] BANK [id number] 04:44:00 Test Item Value Reference Range Interpretation Comments RBC product (test code Product available = RBC product) (10/22/15 10:44 PM) [facility] [id number] 03:04:00 Test Item Value Reference Range Interpretation Comments Antibody Scrn (test Negative (10/22/15 9:04 code = Antibody Scrn) PM) [facility] BANK [id number] 03:04:00 Test Item Value Reference Range Interpretation Comments ABO/Rh (test code = ABO/Rh) O POS [facility] BANK [id number] 03:04:00 Test Item Value Reference Range Interpretation Comments Antibody Scrn (test Negative (10/22/15 9:04 code = Antibody Scrn) PM) [facility] BANK [id number] 03:04:00 Test Item Value Reference Range Interpretation Comments ABO/Rh (test code = ABO/Rh) [facility] [id number] 20:58:00 Test Item Value Reference Range Interpretation Comments UA Urobilinogen (test code = UA no gt 0.1-1.0 Urobilinogen) [facility] [id number] 20:58:00 Test Item Value Reference Range Interpretation Comments UA WBC (test code = 1 See_Comment [Automa dewey message] The UA WBC) system which ge nerated this result transmit dewey reference range : <=5. The reference range was not used to interpr et this result as deyvi l/abnormal. [facility] AND [id number] 20:58:00 Test Item Value Reference Range Interpretation Comments UA Leuk Est (test Negative (10/22/15 2:58 code = UA Leuk Est) PM) [facility] AND [id number] 20:58:00 Test Item Value Reference Range Interpretation Comments UA Blood (test code = Negative (10/22/15 2:58 UA Blood) PM) [facility] AND [id number] 20:58:00 Test Item Value Reference Range Interpretation Comments UA Bili (test code = Negative *NA*(10/22/15 UA Bili) 2:58 PM) [facility] AND [id number] 20:58:00 Test Item Value Reference Range Interpretation Comments UA Sq Epi (test code = UA Sq Epi) None Seen [facility] AND [id number] 20:58:00 Test Item Value Reference Range Interpretation Comments UA Color (test code = Light Yellow UA Color) *NA*(10/22/15 2:58 PM) [facility] AND [id number] 20:58:00 Test Item Value Reference Range Interpretation Comments UA Spec Grav (test code = UA Spec Grav) 1.009 [facility] AND [id number] 20:58:00 Test Item Value Reference Range Interpretation Comments UA Turbidity (test code = Clear (10/22/15 2:58 UA Turbidity) PM) [facility] AND [id number] 20:58:00 Test Item Value Reference Range Interpretation Comments UA pH (test code = UA pH) 7.0 5.0-8.0 [facility] AND [id number] 20:58:00 Test Item Value Reference Range Interpretation Comments UA Glucose (test code = UA Glucose) 50 mg/dL [facility] AND [id number] 20:58:00 Test Item Value Reference Range Interpretation Comments UA Protein (test code = UA Negative mg/dL Protein) [facility] AND [id number] 20:58:00 Test Item Value Reference Range Interpretation Comments UA Ketones (test code = UA Negative mg/dL Ketones) [facility] AND [id number] 20:58:00 Test Item Value Reference Range Interpretation Comments UA Nitrite (test code Negative (10/22/15 2:58 = UA Nitrite) PM) [facility] AND [id number] 20:58:00 Test Item Value Reference Range Interpretation Comments UA Urobilinogen (test code = UA no gt 0.1-1.0 Urobilinogen) [facility] AND [id number] 20:58:00 Test Item Value Reference Range Interpretation Comments UA WBC (test code = 1 See_Comment [Automa dewey message] The UA WBC) system which ge nerated this result transmit dewey reference range : <=5. The reference range was not used to interpr et this result as deyvi l/abnormal. [facility] AND [id number] 20:58:00 Test Item Value Reference Range Interpretation Comments UA Leuk Est (test Negative (10/22/15 2:58 code = UA Leuk Est) PM) [facility] AND [id number] 20:58:00 Test Item Value Reference Range Interpretation Comments UA Blood (test code = Negative (10/22/15 2:58 UA Blood) PM) [facility] AND [id number] 20:58:00 Test Item Value Reference Range Interpretation Comments UA Bili (test code = Negative *NA*(10/22/15 UA Bili) 2:58 PM) [facility] AND [id number] 20:58:00 Test Item Value Reference Range Interpretation Comments UA Sq Epi (test code = UA Sq Epi) None Seen [facility] AND [id number] 20:58:00 Test Item Value Reference Range Interpretation Comments UA Color (test code = Light Yellow UA Color) *NA*(10/22/15 2:58 PM) [facility] AND [id number] 20:58:00 Test Item Value Reference Range Interpretation Comments UA Spec Grav (test code = UA Spec Grav) 1.009 [facility] AND [id number] 20:58:00 Test Item Value Reference Range Interpretation Comments UA Turbidity (test code = Clear (10/22/15 2:58 UA Turbidity) PM) [facility] AND [id number] 20:58:00 Test Item Value Reference Range Interpretation Comments UA pH (test code = UA pH) 7.0 5.0-8.0 [facility] AND [id number] 20:58:00 Test Item Value Reference Range Interpretation Comments UA Glucose (test code = UA Glucose) 50 mg/dL [facility] AND [id number] 20:58:00 Test Item Value Reference Range Interpretation Comments UA Protein (test code = UA Negative mg/dL Protein) [facility] AND [id number] 20:58:00 Test Item Value Reference Range Interpretation Comments UA Ketones (test code = UA Negative mg/dL Ketones) [facility] AND [id number] 20:58:00 Test Item Value Reference Range Interpretation Comments UA Nitrite (test code Negative (10/22/15 2:58 = UA Nitrite) PM) [facility] - [id number] 19:20:00 Test Item Value Reference Range Interpretation Comments MRSA by PCR (test Negative (10/22/15 1:20 code = MRSA by PCR) PM) [facility] [id number] 19:20:00 Test Item Value Reference Range Interpretation Comments Ammonia (test code = Ammonia) 32.0 [facility] [id number] 19:20:00 Test Item Value Reference Range Interpretation Comments Lipase Lvl (test code = Lipase Lvl) 160 73-393 [facility] [id number] 19:20:00 Test Item Value Reference Range Interpretation Comments Lactic Acid Lvl (test code = Lactic 0.9 0.5-2.2 Acid Lvl) [facility] [id number] 19:20:00 Test Item Value Reference Range Interpretation Comments Globulin (test code = Globulin) 2.2 2.0-4.0 [facility] [id number] 19:20:00 Test Item Value Reference Range Interpretation Comments A/G Ratio (test code = A/G Ratio) 1.0 0.7-1.6 [facility] [id number] 19:20:00 Test Item Value Reference Range Interpretation Comments ALANINE AMINOTRANSFERASE 16 See_Comment [A utomated message] (test code = ALANINE The sys tem which AMINOTRANSFERASE) generated this result transmitted ref erence range: <=65. Th e reference range was not used to int erpret this result as normal/abnormal . [facility] [id number] 19:20:00 Test Item Value Reference Range Interpretation Comments Bili Total (test code = Bili Total) 0.4 0.2-1.3 [facility]2016-02-08 19:20:00 Test Item Value Reference Range Interpretation Comments Alk Phos (test code = Alk Phos) 42 39-136 [facility]2016-02-08 19:20:00 Test Item Value Reference Range Interpretation Comments Bili Direct (test code 0.1 See_Comment [Aut omated message] The = Bili Direct) system which generated this result tra nsmitted reference range : <=0.3. The reference r kemar was not used to int erpret this result as deyvi l/abnormal. [facility] [id number] 19:20:00 Test Item Value Reference Range Interpretation Comments Total Protein (test code = Total 4.3 6.4-8.4 Protein) [facility]2016-02-08 19:20:00 Test Item Value Reference Range Interpretation Comments Albumin Lvl (test code = Albumin Lvl) 2.1 3.5-5.0 [facility] [id number] 19:20:00 Test Item Value Reference Range Interpretation Comments ASPARTATE TRANSAMINASE 19 See_Comment [Aut omated message] (test code = ASPARTATE The s ystem which TRANSAMINASE) generated this result transmitted ref erence range: <=37. Th e reference range was not used to interpr et this result as normal/abnormal . [facility] [id number] 19:20:00 Test Item Value Reference Range Interpretation Comments Bili Indirect (test 0.3 See_Comment [Automa dewey message] The code = Bili Indirect) system which generated this result tra nsmitted reference range : <=1.0. The reference r kemar was not used to int erpret this result as normal/abnormal . [id number] 19:20:00 Test Item Value Reference Range Interpretation Comments Cortisol (test code = Cortisol) 3.4 [facility] [id number] 19:20:00 Test Item Value Reference Range Interpretation Comments Hgb A1C (test code = Hgb A1C) <3.5 % [facility] - [id number] 19:20:00 Test Item Value Reference Range Interpretation Comments MRSA by PCR (test Negative (10/22/15 1:20 code = MRSA by PCR) PM) [facility]2016-02-08 19:20:00 Test Item Value Reference Range Interpretation Comments Ammonia (test code = Ammonia) 32.0 [facility]2016-02-08 19:20:00 Test Item Value Reference Range Interpretation Comments Lipase Lvl (test code = Lipase Lvl) 160 73-393 [facility]2016-02-08 19:20:00 Test Item Value Reference Range Interpretation Comments Lactic Acid Lvl (test code = Lactic 0.9 0.5-2.2 Acid Lvl) [facility]2016-02-08 19:20:00 Test Item Value Reference Range Interpretation Comments Globulin (test code = Globulin) 2.2 2.0-4.0 [facility]2016-02-08 19:20:00 Test Item Value Reference Range Interpretation Comments A/G Ratio (test code = A/G Ratio) 1.0 0.7-1.6 [facility]2016-02-08 19:20:00 Test Item Value Reference Range Interpretation Comments ALANINE AMINOTRANSFERASE 16 See_Comment [A utomated message] (test code = ALANINE The sys tem which AMINOTRANSFERASE) generated this result transmitted ref erence range: <=65. Th e reference range was not used to int erpret this result as normal/abnormal . [facility]2016-02-08 19:20:00 Test Item Value Reference Range Interpretation Comments Bili Total (test code = Bili Total) 0.4 0.2-1.3 [facility]2016-02-08 19:20:00 Test Item Value Reference Range Interpretation Comments Alk Phos (test code = Alk Phos) 42 39-136 [facility]2016-02-08 19:20:00 Test Item Value Reference Range Interpretation Comments Bili Direct (test code 0.1 See_Comment [Aut omated message] The = Bili Direct) system which generated this result tra nsmitted reference range : <=0.3. The reference r kemar was not used to int erpret this result as deyvi l/abnormal. [facility] [id number] 19:20:00 Test Item Value Reference Range Interpretation Comments Total Protein (test code = Total 4.3 6.4-8.4 Protein) [facility] [id number] 19:20:00 Test Item Value Reference Range Interpretation Comments Albumin Lvl (test code = Albumin Lvl) 2.1 3.5-5.0 [facility] [id number] 19:20:00 Test Item Value Reference Range Interpretation Comments ASPARTATE TRANSAMINASE 19 See_Comment [Aut omated message] (test code = ASPARTATE The s ystem which TRANSAMINASE) generated this result transmitted ref erence range: <=37. Th e reference range was not used to interpr et this result as normal/abnormal . [facility] [id number] 19:20:00 Test Item Value Reference Range Interpretation Comments Bili Indirect (test 0.3 See_Comment [Automa dewey message] The code = Bili Indirect) system which generated this result tra nsmitted reference range : <=1.0. The reference r kemar was not used to int erpret this result as normal/abnormal . [facility] [id number] 19:20:00 Test Item Value Reference Range Interpretation Comments Cortisol (test code = Cortisol) 3.4 [facility] [id number] 19:20:00 Test Item Value Reference Range Interpretation Comments Hgb A1C (test code = Hgb A1C) <3.5 % [facility]
[2022-06-30 15:50] LABS: Absolute Lymphocytes (CBC) 2.3 K/uL (0.7-4.9); Lymphocytes % 36.1 % (15.3-44.8); MCV 93.3 fL (80-100); MPV 7.4 fL (7.6-11.3); RBC Red Blood Cell Count 3.75 M/uL (3.86-4.86)
[2022-06-30 16:08] LABS: Albumin 3.6 g/dL (3.4-5.0); Bilirubin Total 0.3 mg/dL (0.2-1.0); Potassium 3.9 mmol/L (3.5-5.1); Protein, Total 7.1 g/dL (6.4-8.2)
[2022-06-30] MEDS ORDERED: DICYCLOMINE HCL 10 MG CAP ONE (16:33)
[2022-06-30 16:58] LABS: Urine Blood Negative (Negative); Urine Glucose Negative (Negative); Urine Protein 2+ (Negative); Urine Specific Gravity 1.025 (1.005-1.030)
--- NOTE | 2022-06-30 16:58 | RAD REPORT ---
EXAM DESCRIPTION: US - Abdomen Exam Limited - 06/30/2022 4:47 pm CLINICAL HISTORY: ABD PAIN COMPARISON: Abdomen Exam Limited dated 04/25/2019 FINDINGS: The gallbladder demonstrates gallstones. No pericholecystic fluid or gallbladder wall thic kening. The common bile duct is dilated measuring 14 mm. The liver demonstrates no findings of intrahepatic biliary dilatation. IMPRESSION: Cholelithiasis. Dilated common bile duct to 14 mm may indicate choledocholithiasis. Recommend followup MRCP for furth er evaluation.
[2022-06-30 17:38] LABS: Urine Bacteria >50 /HPF (<20); Urine Mucus 4+ /HPF (None Seen)
--- NOTE | 2022-06-30 18:11 | RAD REPORT ---
EXAM DESCRIPTION: CTAbdomen Pelvis W Contrast - 06/30/2022 5:48 pm CLINICAL HISTORY: Abdominal pain. abd pain COMPARISON: Abdomen Pelvis W Contrast dated 04/25/2019; CT ABD PELVIS W CONTRAST dated 03/26/2013; C T ABD PELVIS W CONTRAST dated 04/18/2009; CT ABD PELVIS W CONTRAST dated 12/30/2007; Abdomen Exam Limite d dated 06/30/2022 TECHNIQUE: Biphasic CT imaging of the abdomen and pelvis was performed with 100 ml non-ionic IV cont rast. All CT scans are performed using dose optimization technique as appropriate and may include automated exposure control or mA/KV adjustment according to patient size. FINDINGS: The lung bases are clear. Multiple gallstones are present in the gallbladder. The intrahepatic biliary tree is mildly prominent . There is mild dilatation of the pancreatic duct and common bile duct seen. The liver, spleen, pancreas, adrenal glands and kidneys are within normal limits. Small left renal cy st. No bowel obstruction, free air, free fluid or abscess. Significant stool is present throughout the co perez. Nonvisualized appendix. Aorto iliac atherosclerosis. No evidence of significant lymphadenopathy. Moderate lumbar degenerative changes are present. IMPRESSION: Cholelithiasis is seen. Mild dilatation of the intrahepatic, extrahepatic and pancreatic duct is present without clear etiology noted. Distal impacted stone or annular mass could be present . MRCP and/or ERCP would be useful for further evaluation. Moderate stool is present throughout the colon.
--- NOTE | 2022-06-30 18:45 | ER ---
Nurse's Notes [facility] Name: Rosina Odonnell Age: 87 yrs Sex: Female : 1935 Arrival Date: 06/30/2022 Time: 13:59 Bed 5 Private MD: Casey Kohler C Diagnosis: UTI/ Urinary tract infection, site not specified;Other cholelithiasis without obstruction Presentation: 06/30 14:52 Chief complaint: Patient states: she has had abdominal pain "kind of all over" for the kc6 past 3 days with decreased appetite. Coronavirus screen: Vaccine status: Patient reports receiving the 2nd dose of the covid vaccine. At this time, the client does not indicate any symptoms associated with coronavirus-19. Ebola Screen: Patient negative for fever greater than or equal to 101.5 degrees Fahrenheit, and additional compatible Ebola Virus Disease symptoms Patient denies exposure to infectious person. Patient denies travel to an Ebola-affected area in the 21 days before illness onset. Initial Sepsis Screen: Does the patient meet any 2 criteria? No. Patient's initial sepsis screen is negative. Does the patient have a suspected source of infection? No. Patient's initial sepsis screen is negative. Risk Assessment: Do you want to hurt yourself or someone else? Patient reports no desire to harm self or others. Onset of symptoms was June 27, 2022. 14:52 Method Of Arrival: Wheelchair kc6 14:52 Acuity: [place] 3 kc6 Triage Assessment: 14:56 General: Appears in no apparent distress. comfortable, Behavior is calm, cooperative, kc6 appropriate for age. Pain: Complains of pain in abdomen Pain does not radiate. Pain currently is 8 out of 10 on a pain scale. Quality of pain is described as burning, Pain began 2-3 days ago. Is continuous, Alleviated by nothing. Aggravated by eating, drinking, Also complains of decreased appetite, Current management is with nexium is partially effective. EENT: No signs and/or symptoms were reported regarding the EENT system. Neuro: De Paz Agitation-Sedation Scale (RASS): 0 - Alert and Calm Level of Consciousness is awake, alert, obeys commands, Oriented to person, place, time, situation, Appropriate for age. Cardiovascular: Heart tones S1 S2 present Capillary refill < 3 seconds. Respiratory: Airway is patent Respiratory effort is even, unlabored, Respiratory pattern is regular, symmetrical, Breath sounds are clear bilaterally. GI: Abdomen is flat, non-distended, Bowel sounds present X 4 quads. Abd is soft X 4 quads Abdomen is tender to palpation in right upper quadrant and left lower quadrant. : No signs and/or symptoms were reported regarding the genitourinary system. Derm: No signs and/or symptoms reported regarding the dermatologic system. Skin is intact, Skin is pink, warm \\T\\ dry. Musculoskeletal: No signs and/or symptoms reported regarding the musculoskeletal system. Historical: - Allergies: 14:56 Augmentin; kc6 - Home Meds: 14:56 Advair Diskus 500-50 mcg/dose Inhl dsdv [Active]; Keppra 750 mg Oral tab 1 tab 2 times kc6 per day [Active]; Nexium 40 mg Oral cpDR 1 cap 2 times per day [Active]; Methocarbamol 1000 mg Oral nightly [Active]; Oxycodone HCl Oral [Active]; Xanax Oral [Active]; Vitamin D Oral [Active]; losartan oral [Active]; carvedilol 6.25 mg Oral tab 1 tab 2 times per day [Active]; Meclizine Oral as needed [Active]; - PMHx: 14:56 Hypertension; Multiple Sclerosis; Asthma; Seizure; kc6 - PSHx: 14:56 hysterectomy; EGD; sinus surgery; kc6 - Immunization history:: Adult Immunizations up to date, Client reports receiving the 2nd dose of the Covid vaccine. - Social history:: Smoking status: Patient denies any tobacco usage or history of. Screenin:11 Abuse screen: Denies threats or abuse. Denies injuries from another. Nutritional kc6 screening: No deficits noted. Tuberculosis screening: No symptoms or risk factors identified. 19:17 Fall Risk No fall in past 12 months (0 pts). Secondary diagnosis (15 points) seizures, kc6 impaired mobility, IV access (20 points). Ambulatory Aid- Crutches/Cane/Walker (15 pts). Gait- Normal/Bed Rest/Wheelchair (0 pts) Mental Status- Oriented to own ability (0 pts). Total Kuo Fall Scale indicates High Risk Score (45 or more points). Fall prevention measures have been instituted. Side Rails Up X 2 Frequent Obs/Assessments Occuring Family Present and informed to notify staff if the need to leave the bedside. Assessment: 15:07 General: Appears in no apparent distress. comfortable, Behavior is calm, cooperative, kc6 appropriate for age. Pain: Complains of pain in abdomen Pain does not radiate. Pain currently is 8 out of 10 on a pain scale. Quality of pain is described as burning, Pain began 2-3 days ago. Is continuous, Alleviated by nothing. Aggravated by eating, drinking, Also complains of decreased appetite, Current management is with nexium is partially effective. Neuro: De Paz Agitation-Sedation Scale (RASS): 0 - Alert and Calm Level of Consciousness is awake, alert, obeys commands, Oriented to person, place, time, situation, Appropriate for age. Cardiovascular: Heart tones S1 S2 present Capillary refill < 3 seconds. Respiratory: Airway is patent Respiratory effort is even, unlabored, Respiratory pattern is regular, symmetrical. GI: Abdomen is flat, non-distended, Bowel sounds present X 4 quads. Abd is soft X 4 quads Abdomen is tender to palpation X 4 quads. in right upper quadrant and left lower quadrant. : No signs and/or symptoms were reported regarding the genitourinary system. EENT: No signs and/or symptoms were reported regarding the EENT system. Derm: No signs and/or symptoms reported regarding the dermatologic system. Skin is intact, Skin is pink, warm \\T\\ dry. Musculoskeletal: No signs and/or symptoms reported regarding the musculoskeletal system. Circulation, motion, and sensation intact. Capillary refill < 3 seconds. 16:36 Reassessment: Patient appears in no apparent distress at this time. No changes from kc6 previously documented assessment. Patient and/or family updated on plan of care and expected duration. Pain level reassessed. Patient is alert, oriented x 3, equal unlabored respirations, skin warm/dry/pink. 17:26 Reassessment: Patient appears in no apparent distress at this time. No changes from kc6 previously documented assessment. Patient and/or family updated on plan of care and expected duration. Pain level reassessed. Patient is alert, oriented x 3, equal unlabored respirations, skin warm/dry/pink. 18:39 Reassessment: Patient appears in no apparent distress at this time. No changes from kc6 previously documented assessment. Patient and/or family updated on plan of care and expected duration. Pain level reassessed. Patient is alert, oriented x 3, equal unlabored respirations, skin warm/dry/pink. Vital Signs: 14:52 BP 104 / 90 LA Sitting (auto/reg); Pulse 78 LA; Resp 18 S; Temp 98.5(O); Pulse Ox 100% kc6 on R/A; Weight 46.27 kg (R); Height 5 ft. 6 in. (167.64 cm) (R); Pain 8/10; 15:58 BP 103 / 66 LA Supine (auto/reg); Pulse 73 LA; Resp 17; Pulse Ox 97% on R/A; kc6 16:36 BP 120 / 71; Pulse 66; Resp 17; Pulse Ox 99% on R/A; kc6 17:26 BP 110 / 95; Pulse 60; Resp 18; Temp 97.7(O); Pulse Ox 95% on R/A; Pain 5/10; kc6 18:39 BP 111 / 86 LA Supine (auto/reg); Pulse 66 LA; Resp 17; Temp 97.9(O); Pulse Ox 100% on kc6 R/A; Pain 7/10; 14:52 Body Mass Index 16.46 (46.27 kg, 167.64 cm) kc6 ED Course: 13:59 Patient arrived in ED. as 13:59 Casey Kohler MD is Private Physician. as 14:52 Sulma Wheeler, RN is Primary Nurse. kc6 14:56 Triage completed. kc6 14:56 Arm band placed on. kc6 15:07 Shalini Rain FNP-C is [facility]. kb 15:07 Madhavi Acosta MD is Attending Physician. kb 15:30 Missed attempt(s): 22 gauge in left wrist. kc6 15:43 CBC with Diff Sent. kc6 15:43 CMP Sent. kc6 15:43 Lipase Sent. kc6 15:43 Inserted saline lock: 22 gauge in right forearm, using aseptic technique. Blood jd3 collected. 16:49 Abdomen Limited US In Process Unspecified. EDMS 17:04 Urine Microscopic Only Sent. kc6 17:48 Urine Culture Sent. kc6 17:50 Abdomen In Process Unspecified. EDMS 18:44 Casey Kohler MD is Referral Physician. kb 18:44 Jovanni Izaguirre MD is Referral Physician. kb 19:17 Patient has correct armband on for positive identification. Bed in low position. Call kc6 light in reach. Side rails up X2. Adult w/ patient. 19:17 No provider procedures requiring assistance completed. IV discontinued, intact, kc6 bleeding controlled, No redness/swelling at site. Pressure dressing applied. Administered Medications: 16:36 Drug: Bentyl (dicyclomine) 20 mg Route: PO; kc6 17:44 Follow up: Response: No adverse reaction; Pain is decreased; RASS: Alert and Calm (0) kc6 19:00 Drug: Rocephin (cefTRIAXone) 1 grams Route: IV; Rate: calculated rate; Site: right kc6 forearm; 19:16 Follow up: Response: No adverse reaction kc6 19:22 Follow up: Response: No adverse reaction; IV Status: Completed infusion; IV Intake: [id number] Medication: 19:21 VIS not applicable for this client. kc6 Intake: 19:22 IV: 10ml; Total: 10ml. kc6 Outcome: 18:45 Discharge ordered by . kb 19:15 Discharge instructions given to patient, Instructed on discharge instructions, follow kc6 up and referral plans. medication usage, Demonstrated understanding of instructions, follow-up care, medications, Prescriptions given X 1. 19:15 Discharged to home via wheelchair, with family. kc6 19:15 Condition: stable 19:21 Patient left the ED. kc6 Addendum: 07/03/2022 07:25 Addendum: Culture Results: Positive urine culture. No further action required. Bacteria s s sensitive to prescribed antibiotic. Signatures: Dispatcher [employer] EDID Shalini Rain, BALBIR YINP-Nadya Mcghee Shelby, RN RN ss Davies, Jonathon, RN RN jd3 Campbell, Kaitlyn, RN RN kc6 Corrections: (The following items were deleted from the chart) 06/30 19:15 19:15 Rocephin (cefTRIAXone) 1 grams IV at calculated rate in right forearm kc6 kc6 19:20 19:17 Discharged to home via wheelchair, with family, kc6 kc6 19:20 19:17 Condition: stable kc kc6 19:20 19:17 Discharge instructions given to patient, Instructed on discharge instructions, kc6 follow up and referral plans. medication usage, Demonstrated understanding of instructions, follow-up care, medications, Prescriptions given X 1, kc6 19:22 19:16 Response: No adverse reaction kc6 kc6
--- NOTE | 2022-06-30 18:45 | EDPHYS ---
Physician Documentation [facility] Name: Rosina Odonnell Age: 87 yrs Sex: Female : 1935 Arrival Date: 06/30/2022 Time: 13:59 Bed 5 Private MD: Casey Kohler C ED Physician Madhavi Acosta HPI: 06/30 15:25 This 87 yrs old Female presents to ER via Wheelchair with complaints of Abdominal Pain, kb Decreased Appetite. 15:25 The patient presents with abdominal pain that is diffuse. Onset: The symptoms/episode kb began/occurred 3 day(s) ago. The symptoms do not radiate. Associated signs and symptoms: Pertinent positives: decreased appetite. The symptoms are described as constant. Modifying factors: The symptoms are alleviated by nothing, the symptoms are aggravated by nothing. Severity of pain: At its worst the pain was moderate in the emergency department the pain is unchanged. The patient has not experienced similar symptoms in the past. The patient has not recently seen a physician. Historical: - Allergies: 14:56 Augmentin; kc6 - Home Meds: 14:56 Advair Diskus 500-50 mcg/dose Inhl dsdv [Active]; Keppra 750 mg Oral tab 1 tab 2 times kc6 per day [Active]; Nexium 40 mg Oral cpDR 1 cap 2 times per day [Active]; Methocarbamol 1000 mg Oral nightly [Active]; Oxycodone HCl Oral [Active]; Xanax Oral [Active]; Vitamin D Oral [Active]; losartan oral [Active]; carvedilol 6.25 mg Oral tab 1 tab 2 times per day [Active]; Meclizine Oral as needed [Active]; - PMHx: 14:56 Hypertension; Multiple Sclerosis; Asthma; Seizure; kc6 - PSHx: 14:56 hysterectomy; EGD; sinus surgery; kc6 - Immunization history:: Adult Immunizations up to date, Client reports receiving the 2nd dose of the Covid vaccine. - Social history:: Smoking status: Patient denies any tobacco usage or history of. ROS: 15:24 Constitutional: Negative for fever, chills, and weight loss. kb 15:24 Abdomen/GI: Positive for abdominal pain, Negative for nausea, vomiting, and diarrhea. 15:24 All other systems are negative. Exam: 15:24 Constitutional: This is a well developed, well nourished patient who is awake, alert, kb and in no acute distress. Head/Face: Normocephalic, atraumatic. ENT: Moist Mucous membranes Cardiovascular: Regular rate and rhythm with a normal S1 and S2. No gallops, murmurs, or rubs. No pulse deficits. Respiratory: Respirations even and unlabored. No increased work of breathing. Talking in full sentences Skin: Warm, dry with normal turgor. Normal color. MS/ Extremity: Pulses equal, no cyanosis. Neurovascular intact. Full, normal range of motion. Neuro: Awake and alert, GCS 15, oriented to person, place, time, and situation. Moves all extremities. Normal gait. Psych: Awake, alert, with orientation to person, place and time. Behavior, mood, and affect are within normal limits. 15:24 Abdomen/GI: Inspection: abdomen appears normal, Bowel sounds: normal, in all quadrants, Palpation: soft, in all quadrants, moderate abdominal tenderness, in the right upper quadrant. Vital Signs: 14:52 BP 104 / 90 LA Sitting (auto/reg); Pulse 78 LA; Resp 18 S; Temp 98.5(O); Pulse Ox 100% kc6 on R/A; Weight 46.27 kg (R); Height 5 ft. 6 in. (167.64 cm) (R); Pain 8/10; 15:58 BP 103 / 66 LA Supine (auto/reg); Pulse 73 LA; Resp 17; Pulse Ox 97% on R/A; kc6 16:36 BP 120 / 71; Pulse 66; Resp 17; Pulse Ox 99% on R/A; kc6 17:26 BP 110 / 95; Pulse 60; Resp 18; Temp 97.7(O); Pulse Ox 95% on R/A; Pain 5/10; kc6 18:39 BP 111 / 86 LA Supine (auto/reg); Pulse 66 LA; Resp 17; Temp 97.9(O); Pulse Ox 100% on kc6 R/A; Pain 7/10; 14:52 Body Mass Index 16.46 (46.27 kg, 167.64 cm) kc6 MDM: 15:08 Patient medically screened. kb 15:24 Data reviewed: vital signs, nurses notes. Data interpreted: Pulse oximetry: on room air kb is 100 %. Interpretation: normal. 18:20 Counseling: I had a detailed discussion with the patient and/or guardian regarding: the kb historical points, exam findings, and any diagnostic results supporting the discharge/admit diagnosis, lab results, radiology results, the need for outpatient follow up. Physician consultation: Jovanni Izaguirre MD was contacted at 18:20, regarding consult, patient's condition, and will see patient in office, outpatient follow up ok. 06/30 15:11 Order name: CBC with Diff; Complete Time: 15:54 kb 06/30 15:11 Order name: CMP; Complete Time: 16:09 kb 06/30 15:11 Order name: Lipase; Complete Time: 16:09 kb 06/30 16:58 Order name: Urine Dipstick-Ancillary; Complete Time: 16:58 EDMS 06/30 16:59 Order name: Urine Microscopic Only; Complete Time: 17:47 kb 06/30 17:43 Order name: Urine Culture EDMS 06/30 15:11 Order name: Abdomen Limited US; Complete Time: 16:59 kb 06/30 15:11 Order name: IV Saline Lock; Complete Time: 15:43 kb 06/30 15:11 Order name: Labs collected and sent; Complete Time: 15:43 kb 06/30 15:11 Order name: Urine Dipstick-Ancillary (obtain specimen); Complete Time: 17:00 kb 06/30 17:34 Order name: Abdomen ; Complete Time: 18:19 EDMS Administered Medications: 16:36 Drug: Bentyl (dicyclomine) 20 mg Route: PO; kc6 17:44 Follow up: Response: No adverse reaction; Pain is decreased; RASS: Alert and Calm (0) kc6 19:00 Drug: Rocephin (cefTRIAXone) 1 grams Route: IV; Rate: calculated rate; Site: right kc6 forearm; 19:16 Follow up: Response: No adverse reaction kc6 19:22 Follow up: Response: No adverse reaction; IV Status: Completed infusion; IV Intake: [id number] Disposition Summary: 06/30/22 18:45 Discharge Ordered Location: Home kb Condition: Stable kb Diagnosis - UTI/ Urinary tract infection, site not specified kb - Other cholelithiasis without obstruction kb Followup: kb - With: Emergency Department - When: As needed - Reason: Worsening of condition Followup: kb - With: Kohler, A, MD - When: 2 - 3 days - Reason: Recheck today's complaints, Continuance of care, Re-evaluation by your physician Followup: kb - With: Jovanni Izaguirre MD - When: 2 - 3 days - Reason: Recheck today's complaints Discharge Instructions: - Discharge Summary Sheet kb - Cholelithiasis kb - Urinary Tract Infection, Adult, [id number] kb Forms: - Medication Reconciliation Form kb - Thank You Letter kb - Antibiotic Education kb - Prescription Opioid Use kb Prescriptions: - Cipro 500 mg Oral Tablet - take 1 tablet by ORAL route every 12 hours for 7 days; 14 tablet; Refills: 0, kb Product Selection Permitted Addendum: 07/03/2022 03:39 STAFF ATTESTATION STATEMENT: I was immediately available onsite in the emergency s d2 department for consultation in the care of this patient. I did not see or examine this patient. Madhavi Acosta MD. Signatures: Dispatcher [employer] EDMS Shalini Rain, KAT-C KAT-Madhavi Szymanski MD MD sd2 Sulma Wheeler RN RN kc6
[2022-06-30] MEDS ORDERED: CEFTRIAXONE 1000 MG/VIAL ONE (18:49)
[2022-06-30 19:55] VITALS: BP 111/86; TEMP 97.9; O2SAT 100
== END 2022-06-30 19:21 | disposition home or self-care (01) ==
LOC: ER 13:56
DX: K80.20 Calculus of gallbladder without cholecystitis without obstruction (principal); N39.0 Urinary tract infection, site not specified; I10 Essential (primary) hypertension; J45.909 Unspecified asthma, uncomplicated; G35 Multiple sclerosis; R56.9 Unspecified convulsions
CPT/HCPCS: 96365; 87088; 85025; 87086; 36415; 87077; 87186; 83690; 80053; 74177; 76705; 99284; Q9967; 81003; 81015

== ENCOUNTER 2022-09-19 07:15 | Day surgery (SDC) | payer OTHER ==
[2022-09-17 14:49] LABS: Absolute Lymphocytes (CBC) 2.2 K/uL (0.7-4.9); Hematocrit 35.6 % (36.0-45.0); Lymphocytes % 19.3 % (15.3-44.8); MCV 95.7 fL (80-100); MPV 7.3 fL (7.6-11.3); RBC Red Blood Cell Count 3.72 M/uL (3.86-4.86)
[2022-09-17 14:55] LABS: ALT/SGPT 17 U/L (13-56); AST/SGOT 12 U/L (15-37); Albumin 3.6 g/dL (3.4-5.0); Alkaline Phosphatase 80 U/L (45-117); Amylase 31 U/L (25-115); BUN Blood Urea Nitrogen 34 mg/dL (7-18); Bicarbonate 28 mmol/L (21-32); Bilirubin Total 0.5 mg/dL (0.2-1.0); Glomerular Filtration Rate 45 ml/min (=/>90); Glucose Level 110 mg/dL (74-106); Potassium 4.7 mmol/L (3.5-5.1); Protein, Total 7.4 g/dL (6.4-8.2); Sodium Level 139 mmol/L (136-145)
[2022-09-17 14:57] LABS: Bilirubin Direct < 0.1 mg/dL (0-0.2)
--- NOTE | 2022-09-17 15:19 | RAD REPORT ---
EXAM DESCRIPTION: Angelt Pa And Lat (2 Views)09/17/2022 2:26 pm CLINICAL HISTORY: Preop for gallbladder surgery COMPARISON: 2020 FINDINGS: Vague 1 centimeter nodular opacity overlies the mid left lung. Otherwise lungs appear clear of acute infiltrate. Heart is normal size. Neurostimulator device in adarsh ce IMPRESSION: 1 centimeter nodular opacity overlying the mid left lung may represent a pulmonary nodul e or confluence of ribs and vessels. Further evaluation with nonemergent unenhanced CT chest could be obtained for further evaluation
--- NOTE | 2022-09-18 15:23 | EKG ---
Test Date: 2022-09-17 Test Time: 14:02:34 Resource Manager Forester: CARLOS MEASUREMENT RESULTS: Intervals: Rate: 62 MA: 174 QRSD: 80 QT: 394 QTc: 399 [place]: P: 65 MA: 174 QRS: 8 T: 62 INTERPRETIVE STATEMENTS: Normal sinus rhythm Cannot rule out Anterior infarct, age undetermined Abnormal ECG Compared to ECG 04/18/2021 20:52:48 Myocardial infarct finding now present Sinus arrhythmia no longer present Electronically Signed On 09-18-22 15:21:31 [employer]GIS[employer]IVE [employer] by Jeremy Neely
[2022-09-19] MEDS ORDERED: CEFOXITIN SODIUM 1 GM/VIAL ONE (07:35)
[2022-09-19] MEDS ORDERED: Ringers Lactate 1,000 ML IV ONE (07:35)
[2022-09-19] MEDS ORDERED: FENTANYL CITR 100 MCG/2 ML ONE (08:17)
[2022-09-19] MEDS ORDERED: propofoL 200 MG/20 ML VIAL IV ONE ×2 (08:18→09:05)
[2022-09-19] MEDS ORDERED: ROCURONIUM 50 MG/5 ML VIAL IV ONE ×2 (08:18→09:06)
[2022-09-19] MEDS ORDERED: LIDOCAINE 2% MPF 5 ML VIAL ONE ×2 (08:23→09:06)
[2022-09-19] MEDS ORDERED: ONDANSETRON 4 MG/2 ML VIAL ONE (08:36)
[2022-09-19] MEDS ORDERED: dexAMETHasone 4 MG/ML VIAL ONE (08:36)
[2022-09-19] MEDS ORDERED: KETOROLAC 30 MG/ML INJ ONE (08:36)
[2022-09-19] MEDS ORDERED: SUGAMMADEX SODIUM 200 MG/2 ML VIAL IV ONE (08:45)
[2022-09-19] MEDS ORDERED: NS 0.9% VIAL 10 ML ONE (08:45)
[2022-09-19] MEDS ORDERED: EPHEDRINE SULF 50 MG/ML VIAL ONE (08:50)
[2022-09-19] MEDS ORDERED: FENTANYL CITR 250 MCG/5 ML ONE (09:06)
[2022-09-19] MEDS ORDERED: HYDROCODONE/APAP 7.5/325 MG TAB PO ONE (09:40)
--- NOTE | 2022-09-19 09:40 | P.OP ---
Date of Service: 09/19/22 Preop diagnosis: Chronic cholecystitis and cholelithiasis, status post ERCP for choledocholithiasis Postop diagnosis: Same Procedure performed: Laparoscopic cholecystectomy Surgeon: Bib Sherwood MD Relationship Manager: Stacey WADDELL Estimated blood loss: Minimal Specimen: Gallbladder Findings: As above Anesthesia: General Complications: None Drains: None Fluids and blood products: Nonapplicable Disposition: Recovery room Operative note: Patient brought to the OR and placed in the supine position. General anesthesia begun. Patient prepped and draped in the usual sterile fashion. Marcaine 0.5% infiltrated locally. 15 blade used to make a 1 cm supraumbilical midline incision. Subcutaneous tissue divided. Bleeding con trolled with cautery. Fascia identified and divided. #1 Vicryl stay suture placed. Peritoneal cavity entered with sharp and blunt dissection. 12 mm trocar placed into the peritoneal cavity under direct vision. Pneumoperitoneum established. Then, 3 5 mm trochars were placed in the abdomen under direct vision. The first trocar was placed in the epigastric region just to the right of midline. 2 5 mm trochars were placed in the right subcostal region. Laparoscopy revealed chronic inflammation of the gallbladder with some omental adhesions attached to the body of the gallbladder. Adhesions taken down with sharp and blunt dissection. Bleeding controlled with cautery. Fundus of the gallbladder identified and retracted superiorly. Infundibulum identified and retracted inferolaterally. Cystic duct and cystic artery clearly identified with blunt dissection. Clips placed and both structures divided. Gallbladder removed from the liver bed utilizing cautery. Bleeding controlled with cautery. Gallbladder removed via Endo Catch bag through the umbilicus. Pneumoperitoneum reestablished. Laparoscopy revealed no evidence of bleeding or bile leakage appreciated subsequently all trochars removed under direct vision. Stay sutures tied to each other to reapproximate the fascial defect. Subcutaneous wounds irrigated bleeding controlled with cautery. 3-0 chromic used to approximate subcutaneous tissue and close skin. Sterile dressing applied. Patient awakened and taken to recovery room in good general condition. CC: Dr. Kohler's office
[2022-09-19] MEDS: HYDROMORPHONE HCL 1 MG/ML INJ ONE ×2 (09:50→09:55)
[2022-09-19] MEDS: FENTANYL CITR 100 MCG/2 ML ONE ×2 (10:01→10:06)
[2022-09-19 10:32] VITALS: BP 101/64; TEMP 97.2; O2SAT 98
[2022-09-19] MEDS ORDERED: HYDROCODONE/APAP 7.5/325 MG TAB ONE (10:47)
== END 2022-09-19 11:22 | disposition home or self-care (01) ==
LOC: OR 07:15
PROVIDERS: ATTEND Surgery
PROC: 0FT44ZZ Resection of Gallbladder, Percutaneous Endoscopic Approach (ICD-10-PCS; principal; 2022-09-19 08:30)
DX: K80.12 Calculus of gallbladder with acute and chronic cholecystitis without obstruction (principal); I10 Essential (primary) hypertension; J45.909 Unspecified asthma, uncomplicated
CPT/HCPCS: 93005; 85025; 80048; 36415; 82150; 80076; 88304; 71046; 47562; J2704 ×2; J1100; J2001 ×2; J3010 ×3; A4216; J1170; J7120; J0694; J2405

== ENCOUNTER 2022-09-29 13:28 | Observation (INO) | payer OTHER ==
--- OUTSIDE RECORDS SUMMARY | 2022-09-29 13:58 | XMS REPORT | Continuity of Care Document ---
:1935 Author Organization [facility] t Address [address] [place] [address] Care Team Providers Name Role Phone ANTONY ANNALISA Nielsen Primary Care Physician Unavailable Mike Garza MD Attending Clinician MIKE GARZA Attending Clinician Unavailable Kayla HAIRSTON, Chen Cotto Attending Clinician MAYI SIMONS Attending Clinician Unavailable Lillian WOLFF, Dakotah Peña Attending Clinician Unavailable Avani Goodwin Attending Clinician Sree Ramos MD Attending Clinician Diego Herrera MD Attending Clinician Torrey Dunn MD Attending Clinician Avani ORDONEZ Attending Clinician Unavailable Keren Mares DO Attending Clinician KEREN MARES Attending Clinician Unavailable MIKE GARZA Admitting Clinician Unavailable Shaun HAIRSTON, Torrey Donnelly Admitting Clinician KEREN MARES Admitting Clinician Unavailable Payers Payer Name Policy Type Policy Number Effective Date Expiration Date Liliane HENDERSON MEDICARE [id number] 2017 2021 ERS 00:00:00 00:00:00 Problems Condition Condition Condition Status Onset Resolution Last Treating Co mments Source Name Details Category Date Date Treatment Clinician Date Acute Acute Disease Active [facility] respirator respirator 04-16 it y of y failure y failure 00:00: Jasmyne s with with 00 Medical hypoxia hypoxia Branch Pancytopen Pancytopen Disease Active U nivers ia ia 04-16 ity of 00:00: [place] 00 Medical Branch Mild Mild Disease Active Univers protein-ca protein-ca 04-16 it y of olegario olegario 00:00: [place] malnutriti malnutriti 00 Me dical on on Branch Elevated Elevated Disease Active Unive rs brain brain 04-16 ity of natriureti [place]ureti [place] c peptide c peptide 00 Medi gina (BNP) (BNP) Branch level level COVID-19 COVID-19 Disease Active Unive rs 8- ity of 00:00: [place] 00 Medical Branch OPEN RIGHT OPEN Diagnosis Active 2018-02-09 Memoria HUMERUS FX RIGHT 02-03 19:37:00 l HUMERUS FX 00:00: Valdez downey Active 00 02/03/2018 [facility] Common Common Problem Active 2022-04-14 Edinson david peroneal peroneal 3-16 02:52:31 l nerve nerve 00:00: [place] lesion lesion 00 (disorder) (disorder) Active 11/27/2016 Problem 04/14/2022 [facility] GI BLEED, GI BLEED, Diagnosis Active 2015-11-01 Memoria ANEMIA ANEMIA 2-08 21:55:00 l Active 00:00: [place] 10/22/2015 00 [place] Localizati Localizat Problem Active 2022-04-14 Memoria on-related ion-relate 1-14 02:52:31 l symptomati d 00:00: Valdez nielsen epilepsy symptomati 00 (disorder) c epilepsy (disorder) Active 09/27/2015 Problem 04/14/2022 [facility] No known No known Disease Unive rs active active ity of problems problems [facility] Anemia Anemia Problem Resolve 2022-04-14 Mem oria (disorder) (disorder) d 02:52:31 l Resolved [place] Problem 04/14/2022 [facility] Anxiety Anxiety Problem Resolve 2022-04-14 M emoria (finding) (finding) d 02:52:31 l Resolved [place] Problem 04/14/2022 [facility] Asthma Asthma Problem Resolve 2022-04-14 Mem oria (disorder) (disorder) d 02:52:31 l Resolved [place] Problem 04/14/2022 [facility] Depressive Depressiv Problem Resolve 2022-04-14 Memoria disorder e disorder d 02:52:31 l (disorder) (disorder) He rmann Resolved Problem 04/14/2022 [facility] Hypertensi Hypertens Problem Resolve 2022-04-14 Memoria ve cely d 02:52:31 l disorder, disorder, Herm lori systemic systemic arterial arterial (disorder) (disorder) Resolved Problem 04/14/2022 [facility] 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 02:52:31 l (disorder) (disorder) He rmann Resolved Problem 04/14/2022 [facility] 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 02:52:31 l (disorder) (disorder) He rmann Resolved Problem 04/14/2022 [facility] Seizure Seizure Problem Resolve 2022-04-14 M emoria (finding) (finding) d 02:52:31 l Resolved [place] Problem 04/14/2022 [facility] Vertigo Vertigo Problem Active 2022-04-14 M emoria (finding) (finding) 02:52:31 l Active [place] Problem 04/14/2022 [facility] Migraine Migraine Problem Active 2022-04-14 Memoria (disorder) (disorder) 02:52:31 l Active [place] Problem 04/14/2022 [facility] GASTROINTE GASTROINT Diagnosis Active 2015-11-01 Memoria STINAL ESTINAL 21:55:00 l HEMORRHAGE HEMORRHAGE He rmann , , UNSPECIFIE UNSPECIFIE D D Active [facility] ANEMIA, ANEMIA, Diagnosis Active 2015-11-01 Memoria UNSPECIFIE UNSPECIFIE 21:55:00 l D D Active [place] [facility] UNSP UNSP Diagnosis Active 2018-02-09 Mem oria FRACTURE FRACTURE 19:37:00 l OF SHAFT OF SHAFT Valdez downey OF OF HUMERUS, HUMERUS, UNSP UNSP Active [facility] Exacerbati Exacerbat Problem Resolve 2022-04-14 2022-04-14 Memoria on of ion of d 5-12 02:52:31 02:52:31 l multiple multiple 00:00: Valdez downey sclerosis sclerosis 00 (disorder) (disorder) Resolved 01/23/2017 Problem 04/14/2022 [facility] Allergies, Adverse Reactions, Alerts Allergy Allergy Status Severity Reaction(s) Onset Inactive Treating Comm ents Source Name Type Date Date Clinician Amoxicil Propensi Active It[facility] 2021-09 [facility]17 [facility] Clavulan adverse 00:00: Medical ate reaction 00 Center s AMOXICIL Allergy Active Itching 2021-[address] CHAPARRITA-POT 1-17 [facility] CLAVULAN 00:00: Medical ATE 00 Center Sulfa Propensi Active Itching Univers (Sulfona ty to 7-24 ity of mide adverse 00:00: [place] Antibiot reaction 00 Medica l ics) s Branch Sulfa Drug Active Itching [facility] (Sulfona Allergy 7-24 [facility] mide 00:00: Medical Antibiot 00 Center ics) Penicill Drug Active Itching [facility] ins Allergy 7-24 [facility] 00:00: Medical 00 Center AMOXICIL DRUG Active ITCHING Univers CHAPARRITA-POT 7-24 ity of CLAVULAN 00:00: [place] ATE 00 Medical Branch PENICILL Allergy Active Itching [facility] INS 7-24 [facility] 00:00: Medical 00 Center SULFA Allergy Active Itching [facility] (SULFONA 7-24 [facility] MIDE 00:00: Medical ANTIBIOT 00 Center ICS) PENICILL Drug Active ITCHING Univers INS Class 7-24 ity of 00:00: [place] 00 Medical Branch SULFA Drug Active ITCHING Univers (SULFONA Class 7-24 ity of MIDE 00:00: [place] ANTIBIOT 00 Medical ICS) Branch Amoxicil Propensi Active Itching Unive rs chaparrita-Pot ty to 724 ity of Clavulan adverse 00:00: [place] ate reaction 00 Medical s Branch Penicill Propensi Active Itching Unive rs ins ty to 724 ity of adverse 00:00: [place] reaction 00 Medical s Branch Augmenti Augmenti Active Memori a n n l [place] sulfa sulfa Active Memoria drugs drugs l [place] Social History Social Habit Start Date Stop Date Quantity Comments Source History SDOH [facility] Alcohol Std Medical Cente r Drinks History SDOH [facility] Alcohol Binge Medical Marcus ter History SDOH [facility] Alcohol Comment Medical C enter Exposure to Yes University SARS-CoV-2 [place] Medical (event) Branch Alcohol intake 2022-08-06 2022-08-06 Ex-drinker [facility] 00:00:00 00:00:00 (finding) [facility] Center Tobacco use and 2022-07-31 2022-07-[address] [facility] kes exposure 00:00:00 00:00:00 Medical Center History SDOH 2022-07-31 2022-07-[address] [facility] Alcohol Frequency 00:00:00 00:00:00 [facility] Tobacco Comment 2022-07-31 2022-07-31 quit a long time [facility] 00:00:00 00:00:00 ago [facility] Center Social History 2015-10-22 2015-10-[address] [facility] lexi 19:43:29 19:43:29 Sex Assigned At [address] 00:00:00 00:00:00 [facility] Center Smoking Status Start Date Stop Date Source Former smoker 2022-07-31 00:00:00 2022-07-31 00:00:[address] [facility] Never smoker [facility] Medications Ordered Filled Start Stop Current Ordering Indication Dosage Frequency Signature Comments Components Source Medication Medication Date Date Medication? Clinician (SIG) Name Name levETIRAcet 2021-09 Yes 750mg Q.5D Take [address] am (Keppra) 1-22 mg by [facility] 750 MG 17:27: mouth 2 Medical tablet 45 (two) Center times daily . carvediloL 2021-09 Yes 3.125mg Take 3.[address] (COREG) 1-22 mg by [facility] 3.125 MG 17:27: mouth 2 Medica l tablet 45 (two) Center times daily with breakfast and dinner. fluticasone 2021-09 Yes 1{puff} Inhale [address] propion-becky 1-22 puff by Lukes meteroL 17:27: mouth via Medic al (ADVAIR) 45 inhaler as Cente r 500-50 needed. mcg/dose diskus inhaler oxyCODONE 2021-09 Yes 15mg Take [address] (ROXICODONE -22 by mouth Luke s ) 15 MG 17:27: every 4 Medical immediate 45 (four) Center release hours as tablet needed for Pain . pregabalin 2021-09 Yes 50mg QD Take [address] (LYRICA) 50 -22 by mouth Luke s MG capsule 17:27: daily. Medic al 45 Center meclizine 2021-09 Yes 25mg Take [address] (ANTIVERT) -22 by mouth 3 Papito es 25 MG 17:27: (three) Medical tablet 45 times Center daily as needed. amLODIPine 2021-09 Yes 10mg QD Take [address] (NORVASC) -22 by mouth [facility]ukes 10 MG 17:27: daily. Medical tablet 45 Center valsartan 2021-09 Yes 160mg QD Take [address] (DIOVAN) 1-22 mg by [facility]ukes 160 MG 17:27: mouth Medical tablet 45 daily. [place] hyoscyamine 2021-09 Yes .125mg Take 0.[address] (ANASPAZ,LE 1-22 mg by [facility]ukes VSIN) 0.125 17:27: mouth Medic al mg tablet 45 every 4 Center (four) hours as needed. sucralfate 2021-09 Yes 1g Q.25D Take [address] (CARAFATE) 1-22 by mouth 4 Papito es 1 gram 17:27: (four) Medical tablet 45 times Center daily. mometasone 2021-09 Yes 2{spray [address] (NASONEX) 1-22 } by Nasal [facility] 50 17:27: route as Medical mcg/actuati 45 needed for Ce nter on nasal Rhinitis. spray methocarbam 2021-09 Yes 750mg Q.25D Take [address] oL 1-22 mg by Lukes (ROBAXIN) 17:27: mouth 4 Medic al 750 MG 45 (four) Center tablet times daily. diphenhydrA 2021-09 Yes 25mg Take [address] MINE 1-22 by mouth [facility]ukes (BENADRYL) 17:27: every Medica l 25 mg 45 night as Center tablet needed for Sleep. ALPRAZolam 2021-09 Yes .25mg Take 0.[address] (XANAX) 0.5 1-22 mg by Lukes MG tablet 17:27: mouth Medical 45 every Center night as needed for Anxiety. traZODone 2021-09 150mg QD Take [address] (DESYREL) 1-22 11-22 mg by [facility]ukes 150 MG 13:42: 00:00 mouth Medical tablet 59 :00 nightly. Center Reyvow 50 Yes 50 mg = 1 Mem oria mg oral 7-29 tab, PO, l tablet 18:54: PRN, PRN Raymond 00 migraine, # 8 tab, 2 Refill(s), Pharmacy: [facility] #[id number], 160.02, cm, 04/11/22 13:42:00 CDT, Height, 68.864, kg, 04/11/22 13:42:00 CDT, Weight lasmiditan Yes 50 mg = 1 Me moria 50 MG Oral 3-16 tab, PO, l Tablet 21:19: PRN, PRN Raymond [Reyvow] 00 migraine, # 8 tab, 2 Refill(s), Pharmacy: [facility] #[id number], 162.56, cm, 11/27/21 15:49:00 CDT, Height, 50.455, kg, 11/27/21 15:49:00 CDT, Weight Levetiracet Yes = 1 tab, Me moria am 750 MG 3-16 PO, BID, # l Oral Tablet 21:19: 60 tab, 6 H ermann 00 Refill(s), Pharmacy: [facility] #[id number], 162.56, cm, 11/27/21 15:49:00 CDT, Height, 50.455, [...] Use 1 Uni vers (NASONEX) 8-05 } [place] in ity of 50 02:23: each [place] [...] ity o f 30 mg 02:23: daily. [place] capsule 47 Indication Medica l s: Take 60 Branch mg every AM and 30 mg every PM mometasone Yes 1{spray Use 1 Uni vers (NASONEX) 8-05 } [place] in ity of 50 02:23: each [place] mcg/actuati 47 nostril as Me dical on nasal needed. [place] spray levETIRAcet Yes 750mg Take 750 U nivers am (KEPPRA) 8-05 mg by ity of 750 mg 02:23: mouth 2 [place] tablet 47 (two) Medical times Branch daily. montelukast 2020- No 10mg Take 10 mg Univers (SINGULAIR) 04-17 by mouth ity of 10 mg 16:21: 00:00 daily. [place] tablet 48 :00 [facility] Branch QUEtiapine 2020- No 25mg Take 25 mg Univers (SEROQUEL) 04-17 by mouth ity of 25 mg 16:21: 00:00 daily. [place] tablet 48 :00 Medical Branch Dexlansopra 2020- No 1{tbl} Take 1 Tab Univers zole 04-17 08-04 by mouth ity of (DEXILANT) 16:21: 00:00 daily. [place] 30 mg CpDM 48 :00 Medical Branch RANITIDINE 2020- No 1{tbl} Take 1 Tab Univers HCL (ZANTAC 04-17- by mouth ity of 75 ORAL) 16:21: 00:00 daily. [place] 48 :00 Medical Branch Dexlansopra 2020- No 60mg Take 60 mg Univers zole 04-17 08-04 by mouth ity of (DEXILANT) 16:21: 00:00 daily. [place] 60 mg CpDM 48 :00 Medical Branch ranitidine 2020- No 150mg Take 150 U nivers (ZANTAC) 04-17 08-04 mg by ity of 150 mg 16:21: 00:00 mouth [place] tablet 48 :00 daily. Medical Branch etodolac 2020- No 500mg Take 500 Uni vers (LODINE) 04-17 08-04 mg by ity of 500 mg 16:21: 00:00 mouth 2 [place] tablet 48 :00 (two) Medical times [place] daily. losartan 2020- No 50mg Take 50 mg Un chris (COZAAR) 50 04-17 08-04 by mouth ity of mg tablet 16:21: 00:00 daily. [place] 48 :00 [facility] Branch pregabalin 0 Yes 50mg 50 mg, Unive rs (LYRICA) 04-16 Oral, QPM, ity o f capsule 50 22:00: First dose [place] mg 00 on [facility] 04/16/21 at Branch 1700, Until Discontinu ed, Routine proMETHazin 2020- No 12.5mg 12.5 mg, Univers e 04-1603 IV ity of (PHENERGAN) 20:15: 21:05 Piggyback, [place] 12.5 mg in 00 :00 ONCE NOW, Medi gina NaCl 0.9% 1 dose, Branch (NS) 50 mL [facility] 04/16/21 IV at 1515, piggyback Routine famotidine Yes 20mg 20 mg, Unive rs (PEPCID AC) 04-16 Oral, BID, it y of tablet 20 19:15: First dose [place] mg 00 (after Medical last Branch modificati on) on [facility] 04/16/21 at 1415, Until Discontinu ed enoxaparin Yes 40mg 40 mg, Unive rs (LOVENOX) 04-16 Subcutaneo ity of injection 15:30: us, Q24H, Fabiano as 40 mg 00 First dose Medical on [facility] 04/16/21 at 1030, Until Discontinu ed, Routine losartan Yes 50mg 50 mg, Univers (COZAAR) 04-16 Oral, ity of tablet 50 14:00: DAILY, [place] mg 00 First dose Medical on [facility] 04/16/21 at 0900, Until Discontinu ed, Routine polyethylen Yes 17g 17 g, Unive rs e glycol 04-16 Oral, ity of 3350 powder 14:00: DAILY, [place] 17 g 00 First dose Medical on [facility] 04/16/21 at 0900, Until Discontinu ed, Routine levETIRAcet Yes 750mg 750 mg, Un chris am (KEPPRA) 04-16 Oral, BID, it y of tablet 750 13:00: First dose [place] mg 00 on Thu [facility] 04/16/21 at Branch 0800, Until Discontinu ed, Routine levothyroxi Yes 125ug 125 mcg, U nivers ne 04-16 Oral, ity of (SYNTHROID) 11:00: QAM-0600, [place] tablet 125 00 First dose Med ical mcg on Thu [place] 04/16/21 at 0600, Until Discontinu ed, Routine [...] 45 :45 Starting Medi gina tablet 1 Mon 04/15/21 Bran h tablet at 2246, Until 04/17/21 at 2245, Routine, Pain (scale 4-6) iopamidol 202- No [id number] 100mL 100 mL, Univers (ISOVUE 04-16 Intravenou [...] l Oral Tablet 19:22: ns, TAKE 1 [place] 00 TABLET BY MOUTH TWICE DAILY, # 60 tab, 1 Refill(s), Pharmacy: [facility] to Phone [facility]ORE #[id number], 162.56, cm, 10/06/19 14:23:00 [employer], Height, 50, kg, 10/06/19 14:23:00 [employer], Weight Levetiracet No See Memori a am 750 MG 3- Instructio l Oral Tablet 22:57: ns, TAKE 1 [place] 00 TABLET BY MOUTH TWICE DAILY, # 60 tab, 1 Refill(s), Pharmacy: [facility] Search to Phone STORE #[id number], 162.56, cm, 10/06/19 14:23:00 [employer], Height, 50, kg, 10/06/19 14:23:00 [employer], Weight lasmiditan 2019-09 Yes 50 mg = 1 Me moria 50 MG Oral 1-12 tab, PO, l Tablet 20:30: PRN, PRN [place] [Reyvow] 00 migraine, # 8 tab, 2 Refill(s), [id number], 162.56, cm, 10/06/19 14:23:00 [employer], Height, 50, kg, 10/06/19 14:23:00 [employer], Weight Levetiracet 2019-09 Yes 750 mg = 1 Memoria am 750 MG 1-12 tab, PO, l Oral Tablet 20:30: BID, # 180 [place] 00 tab, 1 Refill(s), Pharmacy: [facility] Search to Phone STORE #[id number], 162.56, cm, 10/06/19 14:23:00 [employer], Height, 50, kg, 10/06/19 14:23:00 [employer], Weight Reyvow 50 Yes 50 mg = 1 Mem oria mg oral 7-23 tab, PO, l tablet 19:10: PRN, PRN [place] 00 migraine, # 8 tab, 2 Refill(s), [id number], 162.56, cm, 10/06/19 14:23:00 [employer], Height, 50, kg, 10/06/19 14:23:00 [employer], Weight Levetiracet Yes See Memori a am 750 MG 3-30 Instructio l Oral Tablet 15:45: ns, # 480 H ermann 43 tab, TAKE 1 TABLET BY MOUTH TWICE DAILY, Pharmacy: [facility] #[id number] pregabalin Yes 100 mg = 1 M emoria 100 MG Oral 1-23 cap, PO, l Capsule 20:57: Daily, 0 Valdez n [Lyrica] 00 Refill(s) 12 HR Yes 1 tab, PO, Memori a Acetaminoph 7-12 PRN, 0 l en 325 MG / 19:31: Refill(s) H lisaann Oxycodone 00 Hydrochlori de 7.5 MG Extended Release Oral Tablet duloxetine Yes 60 mg = 1 Me moria 60 MG 5-10 cap, PO, l Enteric 19:00: BID, 0 [place] Coated 00 Refill(s) Capsule [Cymbalta] carvedilol Yes 12.5 mg = Me moria 12.5 mg 5-10 1 tab, PO, l oral tablet 19:00: BID, # 180 [place] 00 tab, 0 Refill(s) Amlodipine Yes 5 mg = 1 Mem oria 5 MG Oral 5-10 tab, PO, l Tablet 19:00: Daily, # [place] [Norvasc] 00 30 tab, 0 Refill(s) Levetiracet No 750 mg = 1 Memoria am 750 MG 1-03 tab, PO, l Oral Tablet 19:00: BID, X 90 H ermann [Keppra] 00 day, # 180 tab, 1 Refill(s), Pharmacy: [place] [id number] Levetiracet Yes 750 mg = 1 Memoria am 750 MG 5-26 tab, PO, l Oral Tablet 16:13: BID, 0 Herm lori [Keppra] 00 Refill(s) enoxaparin Yes 40 mg = Edinson david 40 mg/0.4 5-26 0.4 mL, l mL 16:07: SUB-Q, Raymond subcutaneou 00 [id number], s solution X 21 day, # 8 mL, 0 Refill(s), Pharmacy: [facility] 149 Ergocalcife Yes 50,000 Edinson david rol [id number] 5-26 IntlUnit = l UNT Oral 16:07: 1 cap, PO, Her pearson Capsule 00 Q7D, # 5 cap, 0 Refill(s), Pharmacy: [facility] [place] [address] Calcium Yes 1 tab, Memoria Carbonate 5-26 CHEW, BID, l 1250 MG / 16:07: # 60 tab, Her pearson Cholecalcif 00 0 lucia 400 Refill(s), UNT Pharmacy: [facility] [place] [address] oxyCODONE 5 No Notes: Edinson david mg oral 5-26 (Same as: l tablet 15:42: Roxicodone Cassidy nn ) Oxycodone No Notes: Memori a Hydrochlori 5-26 (Same as: l de 5 MG 00:32: Roxicodone Herm lori Oral Tablet ) Calcium No Notes: Memoria Carbonate 5-25 (calcium l 1250 MG / 14:00: carbonate- He rmann Cholecalcif 00 vit D lucia 400 500mg-400u UNT nit TAB) Chewable Same as: Tablet Oyster-D, OsCal-D Ergocalcife No Notes: Edinson david rol [id number] 5-25 (Same as: l UNT Oral 12:00: Vitamin D) Her pearson Capsule 00 "Do Not Crush" Thyroxine No Notes: Memori a 5-25 Take 1 l 11:30: hour [place] before or 2 hours after meal; Enteral [...] ne 5-25 (Same as: l 02:00: Elavil) Raymond 00 Singulair 2018-0 No Notes: Memori a 5-25 (Same l 02:00: as:Singula ir) Ondansetron 2018-0 No 4 mg, Memor ia 5-25 Route: l 00:10: IVP, ONCE, Raymond 00 Dosing Weight 51.818, kg, PRN Nausea & Vomiting, Start date: 02/04/18 19:10:00 CDT Hydralazine 2018-0 No 10 mg, Edinson david 5-25 Route: l 00:10: IVP, [place] 00 Q20Min, Dosing Weight 51.818, kg, PRN Elevated BP, Start date: 02/04/18 19:10:00 CDT, Duration: 2 doses or times, Stop date: Limited # of times Labetalol 2018-0 No 10 mg, Memori a 5-25 Route: l 00:10: IVP, [place] 00 Q5Min, Dosing Weight 51.818, kg, PRN Elevated BP, Start date: 02/04/18 19:10:00 CDT, Duration: 5 doses or times, Stop date: Limited # of times Flumazenil 2018-0 No 0.2 mg, Edinson david 5-25 Route: l 00:10: IVP, PRN, [place] 00 Dosing Weight 51.818, kg, PRN Benzodiaze [...] oria ne 5-25 Route: l 00:10: IVP, [place] 00 Q5Min, Dosing Weight 51.818, kg, PRN Pain Score 7-10, Start date: 02/04/18 19:10:00 CDT, Duration: 4 doses or times, Stop date: Limited # of times Oxycodone 2018-0 No 5 mg, Memoria 5-25 Route: PO, l 00:10: Drug form: [place] TAB, Q4H, Dosing Weight 51.818, kg, PRN [...] form: l 10 mg 23:00: INJ, Start date: 02/04/18 18:00:00 CDT, Stop date: 02/04/18 [...] ONCE, Stop date: 02/04/18 17:10:00 CDT propofol 2017-0 No Route: IV, Mem oria (ANES) [...] Edinson david formoterol 5-24 6411 l 13:00: [address],[address] Inhale 2 puff(s) by mouth 2 times a day Carlos Chiu Mfr_ Don't use after_ Tramadol No Notes: Not Mem oria 5-24 to exceed l 11:00: 400mg/day. (Same As: Ultram) Acetaminoph No Notes: Edinson david en 325 MG / 5-24 (Same as: l Hydrocodone 10:55: [place] Cass[place] nn Bitartrate 00 325/5) Do 5 MG Oral not exceed Tablet 4gm/day of [[place] acetaminop 5/325] hen. Ondansetron No Notes: Edinson david 5-24 (Same as: l 10:54: Zofran) MEDICATION WASTE Product Size: 4 mg Product Wasted: ___ mg Acetaminoph No Notes: Edinson david en 325 MG / 5-24 (Same as: l Hydrocodone 10:54: [place] Cassidy nn Bitartrate 00 325/5) Do 5 [...] 50 Memoria 5-24 microgram, l 10:21: Route: [place] 00 IVP, ONCE, Dosing Weight 47.001, kg, Priority: STAT, Start date: 02/04/18 5:21:00 CDT, Stop date: 02/04/18 5:21:00 CDT Fentanyl No 50 Memoria 5-24 microgram, l 09:57: Route: [place] 00 IVP, ONCE, Dosing Weight 47.001, kg, Priority: STAT, Start date: 02/04/18 4:57:00 CDT, Stop date: 02/04/18 4:57:00 CDT Ancef No Notes: Memoria 5-24 (Same As: l 08:51: Ancef, Kefzol) MEDICATION WASTE Product Size: 1000 mg Product Wasted: ___ mg Fentanyl No Notes: Memoria 5-24 (Same as: l 08:49: Sublimaze) Preservati ve free. ferrous Yes 325 mg [...] oria 2-12 IV push l 23:00: reconstitu te with 10 ml 0.9% sodium chloride [...] Memoria 2-11 (Same as: l 18:00: Reglan) [place] 00 Morphine No Notes: Memoria 2-11 (Same l 14:51: as:MORPhin [place] 00 e Sulfate) Calcium No Notes: Memoria Carbonate 2-11 (Same As: l 500 MG 08:39: Tums) [place] Chewable 00 Calcium Tablet Carbonate 500 mg = 200 mg elemental calcium Dose = mg calcium carbonate ( mg elemental calcium) Magnesium No Notes: Memori a Sulfate 2-11 WASTE: F/P l 08:39: - Sink; E [place] 00 - Municipal Trash Bin Neutra-Phos No Notes: Edinson david 2-11 (Same as: l 08:39: Neutra-Mary Raymond 00 s) Each 1.25 gm pkt has 250mg phosphorou s. Mix w/2.5oz water and stir. Calcium No Notes: Memoria Gluconate 2-11 WASTE: F/P l 08:39: - Sink; E [place] 00 - Municipal Trash Bin Magnesium No Notes: Memori a Oxide 2-11 (Same as: l 08:39: Mag-Ox [place] 00 400) Magnesium oxide [id number] g elemental magnesium Dose=____m g magnesium oxide [...] 2-11 15 mL, l Sodium 08:39: Route: [place] Chloride 00 IVPB, PRN, 0.9% IV 250 Dosing mL Weight 47.001, kg, PRN Abnormal Lab Result, Start date: 10/25/15 2:39:00, Duration: 30 day, Stop date: 11/24/15 2:38:00, FOR ICU USE ONLY potassium No Notes: Memori a phosphate + 2-11 (Same as: l Sodium 08:39: K [place] Chloride 00 Phosphate. 0.9% IV 250 ) 1 mMol mL phoshate has 1.47 mEq potassium Infuse over 4 hours potassium No Notes: Memori a chloride 2-11 (Same as: l 08:39: K-Dur 20) Raymond "Do Not Crush" With food and full glass of water Amitriptyli No Notes: Edinson david ne 2-11 (Same as: l 03:00: Elavil) [place] morphine No Notes: Memoria Sulfate 2-10 (Same l 21:27: as:MORPhin [place] 00 e Sulfate) Phenergan No Notes: Do Mem oria 2-10 not give l 21:26: IV push. [place] 00 (Same as: Phenergan) carvedilol No Notes: [...] Memoria 2-10 Route: PO, l 15:00: Daily, [place] 00 Dosing Weight 47.001, kg, Start date: 10/24/15 9:00:00, Duration: 30 day, Stop date: 11/22/15 9:00:00 168 HR No Notes: Memoria Clonidine 2-10 Patch l 0.22845 14:44: delivers Valdez n MG/HR 00 0.1 [...] a 2-10 (Same as: l 13:56: Antivert) [place] 00 Hyoscyamine No Notes: Edinson david 2-10 (Same as: l 13:56: Levsin) [place] 00 Take 30 min before meal Acetaminoph No Notes: Edinson david en 325 MG / 2-10 (Same as: l Hydrocodone 13:55: [place] Cassidy nn Bitartrate 00 325/5) Do 5 MG Oral not exceed Tablet 4gm/day of [[place] acetaminop 5/325] hen. Alprazolam No Notes: Memor ia 0.25 MG 2-10 With food l Oral Tablet 13:55: or milk Her pearson 00 (Same as: Xanax) Clonidine No Notes: Memori a Hydrochlori 2-10 (Same As: l de 0.2 MG 06:00: Catapres) Her pearson Oral Tablet 00 Amlodipine No Notes: Memor ia 2-10 (Same as: l 04:43: Norvasc) [place] 00 Cardene 40 No Notes: Memor ia mg in NS 2-10 Same as: l 200 mL 04:42: Cardene [place] (Titrate.) 00 Concentrat IV 40 mg ion: (0.2 mg /1 ml ) Labetalol No Notes: Memori a 2-10 (Same as: l 04:42: Normodyne, [place] 00 Trandate) Push over 2 minutes Give bolus over 2-3 minutes. Zofran No Notes: Memoria 2-10 (Same as: l 01:05: Zofran) [place] 00 MEDICATION WASTE Product Size: 4 mg Product Wasted: ___ mg Ondansetron No Notes: Edinson david 2-09 (Same as: l 23:49: Zofran) [place] MEDICATION WASTE Product Size: 4 mg Product Wasted: ___ mg Sublimaze No Notes: Memori a 2-09 (Same as: l 23:30: Sublimaze) [place] 00 Preservati ve free. midazolam No Notes: Memori a 2-09 (Same as: l 23:30: Versed) [place] 00 MEDICATION WASTE Product Size: 2 mg Product Wasted: ___ mg Thyroxine No Notes: Memori a 2-09 Take 1 l 12:30: hour Raymond before or 2 hours after meal; Enteral feeds may interefere with the absorption of this medication . (Same as:Levothr oid) Sublimaze No Notes: Memori a 2-09 (Same as: l 03:47: Sublimaze) [place] Preservati ve free. Saline No Notes: Memoria Flush 0.9% 2- (Same as: l 03:00: BD [place] Posiflush) sennosides, No Notes: Edinson david FDC 2-09 (Same as: l 03:00: Senokot) [place] Docusate No Notes: Memoria 2-09 (Same as: l 03:00: Colace) [place] (Do Not Crush) Singulair No Notes: Memori a 2- (Same l 03:00: as:Singula [place] ir) budesonide- No Notes: Edinson david formoterol 10-22 (Same as: l 160 mcg-4.5 23:00: Symbicort) Raymond mcg/inh 00 WASTE: inhalation Aerosol - aerosol Return to with Pharmacy adapter Seroquel No Notes: Memoria 2- (Same as: l 23:00: SEROquel) [place] Levetiracet No Notes: Edinson david am 750 MG 10-22 Same as: l Oral Tablet 23:00: Keppra Herm lori [Keppra] 00 Cymbalta No Notes: Memoria 10-22 (Same as: l 23:00: Cymbalta) [place] (Do Not Crush) Advair No 1 puff, [...] 00 0 5 MG Oral Refill(s) Tablet [[place] 5/325] carvedilol Yes 3.125 mg = M [...] 1 patch, Memoria Clonidine 2-08 TOP, l 0.50594 19:51: qWeek, # [place] n MG/HR 00 [...] tab, PO, l tablet 19:51: TID, PRN [place] 00 for dizziness, # 60 tab, 0 Refill(s) Nexium 2016-0 No 40 mg, PO, Memor ia 2-08 Daily, 0 l 19:51: Refill(s) [place] 00 levocetiriz 2016-0 Yes 5 mg = 1 Me moria ine 5 mg 2-08 tab, PO, l oral tablet 19:51: Bedtime, He rmann 00 PRN as needed for allergy symptoms, # 30 tab, 0 Refill(s) hyoscyamine 2015-0 Yes 0.125 mg = Memoria 0.125 mg 2-08 1 tab, SL, l sublingual 19:51: Q6H, PRN Her pearson tablet 00 Spasms, # 30 tab, 0 Refill(s) Alprazolam 2015- Yes 0.25 mg = Me moria 0.25 MG 2-08 1 tab, PO, l Oral Tablet 19:51: TID, PRN He rmann 00 Anxiety, # 30 tab, 0 Refill(s) amitriptyli 0 Yes 25 mg = 1 M emoria ne 25 mg 2-08 tab, PO, l oral tablet 19:49: Bedtime, # [place] 00 30 tab, 1 Refill(s) Advair 2015-0 Yes 1 puff, Memoria Diskus 500 2-08 INHALATION l mcg-50 mcg 19:49: , BID, # 1 H ermann inhalation 00 ea, 3 powder Refill(s) levothyroxi Yes 25 Memori a ne 25 mcg 2-08 microgram l (0.025 mg) 19:49: = 1 tab, Her pearson oral tablet 00 PO, Daily, # 30 tab, 1 Refill(s) Amlodipine 2016-0 Yes 5 mg, PO, Me moria 2-08 BID, 0 l 19:49: Refill(s) [place] 00 Sodium 2016-0 No 100 mL, Memoria Chloride 208 Rate: 10 l 0.154 18:59: ml/hr, [place] MEQ/ML 00 Infuse Injectable over: 10 Solution hr, Route: IVPB, Dosing Weight 47.001 kg, Total Volume: 100, Infuse at 8 mg / hr for 72 hours for GI bleeding, Start date: 10/22/15 12:59:00, Duration: 72 hr, Stop date: 10/25/15 12:58:00 Saline No Notes: Memoria Flush 0.9% 2-08 (Same as: l 18:55: BD [place] 00 Posiflush) levETIRAcet Yes 750mg Take 750 U [...] mouth ity of mg tablet 21:44: daily. [place] 53 [facility] carvedilol Yes 6.25mg Take [...] ity o f 30 mg 21:44: daily. [place] capsule 53 Indication Medica l s: Take 60 Branch mg every AM and 30 mg every PM mometasone Yes 1{spray Use 1 Uni vers (NASONEX) 7- } [place] in ity of 50 21:44: each [place] mcg/actuati 53 nostril as Me dical on nasal needed. Branch spray Dexlansopra Yes 60mg Take 60 mg Univers zole 7-29 by mouth ity of (DEXILANT) 21:44: daily. [place] 60 mg CpDM 53 Medical Branch ranitidine Yes 150mg Take 150 Un chris (ZANTAC) 7-29 mg by ity of 150 mg 21:44: mouth [place] tablet 53 daily. Medical Branch Vital Signs Vital Name Observation Time Observation Value Comments Source HEIGHT 2022-08-05 13:26:00 167.6 cm WEIGHT 2022-08-05 13:26:00 49.261 kg HEIGHT 2022-07-31 11:34:00 167.6 cm WEIGHT 2022-07-31 11:34:00 48.988 kg HEIGHT 2022-08-05 13:26:00 167.6 cm WEIGHT 2022-08-05 13:26:00 49.261 kg HEIGHT 2022-07-31 11:34:00 167.6 cm WEIGHT 2022-07-31 11:34:00 48.988 kg Systolic blood 2021-04-17 20:14:00 144 mm[Hg] Univer sity of pressure [facility] Diastolic blood 2021-04-17 20:14:00 86 mm[Hg] Unive rsity of pressure [facility] Heart rate 2021-04-17 20:14:00 63 /min [facility] Body temperature 2021-04-17 20:14:00 36.61 Laxmi [facility] Res[facility] rate 2021-04-17 20:14:00 18 /min [facility] Oxygen saturation in 2021-04-17 20:14:00 93 /min [facility] Arterial blood by [facility] Pulse oximetry Branch Body height 2021-04-16 03:29:00 167.6 cm [facility] Body weight 2021-04-16 03:29:00 48.988 kg [facility] [place] [facility] BMI 2021-04-16 03:29:00 17.43 kg/m2 [facility] [place] [facility] Systolic blood 2021-04-17 20:14:00 144 mm[Hg] Univer sity of pressure [place] [facility] Diastolic blood 2021-04-17 20:14:00 86 mm[Hg] Unive rsity of pressure [place] [facility] Heart rate 2021-04-17 20:14:00 63 /min [facility] [place] [facility] Body temperature 2021-04-17 20:14:00 36.61 Laxmi Univ ersity [facility] [place] [facility] Respiratory rate 2021-04-17 20:14:00 18 /min Univ ers[facility] [place] [facility] Oxygen saturation in 2021-04-17 20:14:00 93 /min University of Arterial blood by [facility] Pulse oximetry Branch Body height 2021-04-16 03:29:00 167.6 cm [facility] [place] [facility] Body weight 2021-04-16 03:29:00 48.988 kg [facility] [place] [facility] BMI 2021-04-16 03:29:00 17.43 kg/m2 [facility] [place] [facility] Systolic blood 2020-03-02 00:23:00 135 mm[Hg] Univer sity of pressure [place] [facility] Diastolic blood 2020-03-02 00:23:00 67 mm[Hg] Unive rsity of pressure [place] [facility] Heart rate 2020-03-02 00:23:00 67 /min [facility] [place] [facility] Respiratory rate 2020-03-02 00:23:00 20 /min Univ ersity [facility] [place] [facility] Oxygen saturation in 2020-03-02 00:23:00 99 /min University of Arterial blood by [facility] Pulse oximetry Branch Body temperature 2020-03-01 21:25:00 36.33 Laxmi Univ ers[facility] [place] [facility] Body height 2020-03-01 21:25:00 165.1 cm [facility] [place] [facility] Body weight 2020-03-01 21:25:00 46.72 kg [facility] [place] [facility] BMI 2020-03-01 21:25:00 17.14 kg/m2 [facility] [place] [facility] Systolic blood 2020-03-02 00:23:00 135 mm[Hg] Univer sity of pressure [place] [facility] Diastolic blood 2020-03-02 00:23:00 67 mm[Hg] Unive rsity of [facility] Heart rate 2020-03-02 00:23:00 67 /min Universi ty [facility] Respiratory rate 2020-03-02 00:23:00 20 /min [facility] Oxygen saturation in 2020-03-02 00:23:00 99 /min University of Arterial blood by [facility] Pulse oximetry Branch Body temperature 2020-03-01 21:25:00 36.33 Laxmi [facility] ersity [facility] Body height 2020-03-01 21:25:00 165.1 cm Universi ty [facility] Body weight 2020-03-01 21:25:00 46.72 kg Universi [facility] BMI 2020-03-01 21:25:00 17.14 kg/m2 [facility] Systolic blood 2022-08-05 16:31:00 86 mm[Hg] [facility] Diastolic blood 2022-08-05 16:31:00 61 mm[Hg] [facility] Heart rate 2022-08-05 16:31:00 68 /min [facility] Respiratory rate 2022-08-05 16:31:00 16 /min [facility] Oxygen saturation in 2022-08-05 16:31:00 92 /min [facility] Arterial blood by Medical nter Pulse oximetry Body temperature 2022-08-05 16:15:00 36.61 Laxmi [facility] Body height 2022-08-05 13:26:00 167.6 cm [facility] Body weight 2022-08-05 13:26:00 49.261 kg [facility] BMI 2022-08-05 13:26:00 17.53 kg/m2 [facility] Systolic (mm Hg) 2022-04-11 18:27:00 Edinson lares [place] Diastolic (mm Hg) 2022-04-11 18:27:00 Mem orial [place] Heart Rate 2022-04-11 18:27:00 [facility] [place] Respitory Rate 2022-04-11 18:27:00 Memori al [place] Height 2022-04-11 18:27:00 160.02 cm [facility] [place] Weight 2022-04-11 18:27:00 [facility] [place] BMI Calculated 2022-04-11 18:27:00 Memori al [place] Systolic (mm Hg) 2021-11-27 20:49:00 Edinson rial [place] Diastolic (mm Hg) 2021-11-27 20:49:00 Mem orial [place] Heart Rate 2021-11-27 20:49:00 [facility] [place] Respitory Rate 2021-11-27 20:49:00 Memori al [place] Height 2021-11-27 20:49:00 162.56 cm [facility] [place] Weight 2021-11-27 20:49:00 [facility] [place] BMI Calculated 2021-11-27 20:49:00 Memori al [place] Systolic (mm Hg) 2021-03-29 18:46:00 Edinson rial [place] Diastolic (mm Hg) 2021-03-29 18:46:00 Mem orial [place] Heart Rate 2021-03-29 18:46:00 [facility] [place] Respitory Rate 2021-03-29 18:46:00 Memori al [place] Systolic (mm Hg) 2019-10-06 20:08:00 Edinson rial [place] Diastolic (mm Hg) 2019-10-06 20:08:00 Mem orial [place] Heart Rate 2019-10-06 20:08:00 [facility] [place] Respitory Rate 2019-10-06 20:08:00 Memori al [place] Height 2019-10-06 20:08:00 162.56 cm [facility] [place] Weight 2019-10-06 20:08:00 [facility] [place] BMI Calculated 2019-10-06 20:08:00 Memori al [place] Weight 2019-03-25 18:58:00 [facility] [place] BMI Calculated 2019-03-25 18:58:00 Mem[facility] [place] Height 2019-03-25 18:58:00 167.64 cm [facility] [place] Systolic (mm Hg) 2019-03-25 18:58:00 Edinson rial [place] Diastolic (mm Hg) 2019-03-25 18:58:00 Mem orial [place] Heart Rate 2019-03-25 18:58:00 [facility] [place] Respitory Rate 2019-03-25 18:58:00 Memori [facility] [place] BMI Calculated 2019-01-21 18:35:00 Memori [facility] [place] Weight 2019-01-21 18:35:00 [facility] [place] Height 2019-01-21 18:35:00 167.64 cm [facility] [place] Respitory Rate 2019-01-21 18:35:00 [facility] [place] Heart Rate 2019-01-21 18:35:00 [facility] [place] Systolic (mm Hg) 2019-01-21 18:35:00 Edinson rial [place] Diastolic (mm Hg) 2019-01-21 18:35:00 Mem orial [place] BMI Calculated 2018-12-30 14:25:00 Memori al [place] Weight 2018-12-30 14:25:00 [facility] [place] Height 2018-12-30 14:25:00 167.64 cm [facility] [place] Systolic (mm Hg) 2018-12-30 14:25:00 Edinson rial [place] Diastolic (mm Hg) 2018-12-30 14:25:00 Mem orial [place] Respitory Rate 2018-12-30 14:25:00 [facility] [place] Heart Rate 2018-12-30 14:25:00 [facility] [place] Systolic (mm Hg) 2018-10-19 22:38:00 Edinson rial [place] Diastolic (mm Hg) 2018-10-19 22:38:00 Mem orial [place] Heart Rate 2018-10-19 22:38:00 [facility] [place] Respitory Rate 2018-10-19 22:38:00 Memori al [place] Height 2018-10-19 22:38:00 167.64 cm [facility] [place] Weight 2018-10-19 22:38:00 [facility] [place] BMI Calculated 2018-10-19 22:38:00 Memori al [place] Temperature Oral (F) 2018-02-06 17:35:00 99.2 F [facility] [place] Heart Rate 2018-02-06 17:35:00 [facility] [place] Respitory Rate 2018-02-06 17:35:00 Mem[facility] [place] Systolic (mm Hg) 2018-02-06 17:35:00 Edinson rial [place] Diastolic (mm Hg) 2018-02-06 17:35:00 Mem orial [place] Heart Rate 2018-02-06 12:40:00 [facility] [place] Respitory Rate 2018-02-06 12:40:00 Memori al [place] Systolic (mm Hg) 2018-02-06 12:40:00 Edinson rial [place] Diastolic (mm Hg) 2018-02-06 12:40:00 Mem orial [place] Temperature Oral (F) 2018-02-06 12:40:00 98.5 F [facility] [place] Respitory Rate 2018-02-06 08:12:00 Memori al [place] Heart Rate 2018-02-06 08:12:00 [facility] [place] Temperature Oral (F) 2018-02-06 08:12:00 97.8 F [facility] [place] Systolic (mm Hg) 2018-02-06 08:12:00 Edinson rial [place] Diastolic (mm Hg) 2018-02-06 08:12:00 Mem orial [place] Height 2018-02-05 02:47:00 167.64 cm [facility] [place] Weight 2018-02-05 02:47:00 [facility] [place] BMI Calculated 2018-02-05 02:47:00 Memori al [place] BMI Calculated 2018-02-04 15:52:00 [facility] [place] Weight 2018-02-04 15:52:00 [facility] [place] Height 2018-02-04 15:52:00 167.64 cm [facility] [place] Respitory Rate 2015-10-28 14:00:00 Memori al [place] Systolic (mm Hg) 2015-10-28 14:00:00 Edinson rial [place] Diastolic (mm Hg) 2015-10-28 14:00:00 Mem orial [place] Temperature Oral (F) 2015-10-28 14:00:00 98.1 F [facility] [place] Heart Rate 2015-10-28 14:00:00 [facility] [place] Respitory Rate 2015-10-28 10:00:00 Memori al [place] Systolic (mm Hg) 2015-10-28 10:00:00 Edinson rial [place] Diastolic (mm Hg) 2015-10-28 10:00:00 Mem orial [place] Heart Rate 2015-10-28 10:00:00 [facility] [place] Temperature Oral (F) 2015-10-28 10:00:00 97.9 F [facility] [place] Respitory Rate 2015-10-28 06:00:00 Memori al [place] Heart Rate 2015-10-28 06:00:00 [facility] [place] Temperature Oral (F) 2015-10-28 06:00:00 97.6 F [facility] [place] Systolic (mm Hg) 2015-10-28 06:00:00 Edinson Andrade Diastolic (mm Hg) 2015-10-28 06:00:00 Renetta Andrade Height 2015-10-27 02:52:00 [facility] Height 2015-10-22 18:39:00 165.1 cm [facility] Raymond Weight 2015-10-22 18:39:00 [facility] BMI Calculated 2015-10-22 18:39:00 Perla Patel Procedures Procedure Date / Time Performing Source Performed Clinician [place] ERCP 2022-08-05 GarzaMike dup[address] [facility] 16:07:00 [facility] REPORT OF PROCEDURE - ENDOSCOPY 2022-08-05 Garza, Mckeon Min h [facility] URL 16:01:37 [facility] ENDOSCOPIC RETROGRADE 2022-08-05 Garza, Mckeon [facility]agandeep [facility] CHOLANGIOPANCREATOGRAPHY 15:43:00 [facility] (ENDOSCOPIC RETROGRADE CHOLANGIOPANCREATOGRAPHY) PROCEDURE W/ C-ARM 2022-08-05 Garza, Mckeon [facility]ep [facility] 15:43:00 [facility] ERCP, WITH SPHINCTEROTOMY 2022-08-05 Garza, Mckeon Gagandeep [facility] 15:43:00 [facility] ERCP, WITH BALLOON SWEEP OF BILE 2022-08-05 Garza Mike Mi nh [facility] DUCTS 15:43:00 [facility] BASIC METABOLIC PANEL (NA, K, 2021-04-16 Raul Ram[facility]rez [facility], CO2, GLUCOSE, BUN, 11:16:00 [facility] CREATININE, [place]) Branch ADC,CLC OR LCC ONLY - INFLUENZA 2021-04-15 Avani Ordonez [facility] A & B DIRECT ANTIGEN 23:26:[address] [facility] [address] CHEST PULMONARY ANGIOGRAM 2021-04-15 Avani Ordonez Uni versity of 22:54:30 [facility] COVID-19 (ID NOW RAPID TESTING) 2021-04-15 Avnai Ordonez [place] of 21:15:00 [facility] LAB ONLY COVID INTERPRETATION 2021-04-15 Avani Ordonez Un iversity of 21:15:00 [facility] LACTIC ACID WHOLE BLOOD 2021-04-15 [facility] 21:11:00 [facility] MAGNESIUM 2021-04-15 Avani Ordonez [place] of 21:10:00 [facility] COMP. METABOLIC PANEL (34596) 2021-04-15 Avani Ordonez Un iversity of 21:10:00 [facility] CBC WITH DIFF 2021-04-15 Avani Ordonez [place] of 21:10:00 [facility] GLYCOSYLATED HEMOGLOBIN (A1C) 2021-04-15 Diego Herrera Un iversity of 21:10:00 [facility] PROTHROMBIN TIME / INR 2021-04-15 [facility] 21:10:00 [facility] D-DIMER 2021-04-15 Avani Ordonez [place] of 21:10:00 [facility] ACTIVATED PARTIAL THRMPLAS SUKI 2021-04-15 Avani Ordonez U niversity of 21:10:00 [facility] N-TERMINAL PRO-BNP 2021-04-15 Avani Ordonez [place] of 21:10:00 [facility] HB ECG ROUTINE & RHYTHM STRIP 2021-04-15 Avani Ordonez Un iversity of 21:00:18 [facility] TROPONIN I 2020-03-01 Keren Mares [place] of 22:18:00 [facility] HEPATIC FUNCTION PANEL (02220) 2020-03-01 Keren Mares [facility] (ALB,T.PRO,BILI 22:18:00 [facility] T,BU/BC,ALT,AST,ALK PHOS) Branch BASIC METABOLIC PANEL (NA, K, 2020-03-01 Keren Mares [place] of CL, CO2, GLUCOSE, BUN, 22:18:00 [facility] ical CREATININE, [place]) Branch CBC WITH DIFFERENTIAL 2020-03-01 Keren Mares [facility] ity of 22:18:00 [facility] N-TERMINAL PRO-BNP 2020-03-01 Keren Mares [place] of 22:18:00 [facility] COVID-19 (ID NOW RAPID TESTING) 2020-03-01 Keren Mares [place] of 22:18:00 [facility] NOTICE OF PRIVACY PRACTICES 2020-03-01 Doctor Unassigned, U niversity of 21:12:20 [place] [facility] CONSENT/REFUSAL FOR DIAGNOSIS 2020-03-01 Doctor Unassigned, University of AND TREATMENT 21:11:40 [place] [facility] Appendectomy [facility] Arthroscopy of knee [facility] pearson Elbow maneuver [facility] [place] Hysterectomy [facility] [place] Repair of shoulder [facility] Plan of Care Planned Activity Planned Date Details Comments Source Future Scheduled 2023-08-[address] [facility] Test 00:00:00 Counseling and Medical Cente r Screening (12+) [code = Tobacco Cessation Counseling and Screening (12+)] Future Scheduled 2022-09-[address] [facility] Test 00:00:00 WELLNESS (YEAR 2 or Medical Center FIRST YEAR if no IPPE) [code = MEDICARE ANNUAL WELLNESS (YEAR 2 or FIRST YEAR if no IPPE)] Future Scheduled 2022-09-[address] [facility] Test 00:00:00 (12+) [code = Medical Center DEPRESSION SCREENING (12+)] Future Scheduled 2022-09-14 FALLS RISK SCREENING [facility] Test 00:00:00 [code = FALLS RISK Medical C enter SCREENING] Future Scheduled 2022-05-15 INFLUENZA VACCINE (#1) [facility] 00:00:00 [code = INFLUENZA Medical Ce nter VACCINE (#1)] Future Scheduled 2001 PNEUMOCOCCAL 65+ YRS [facility] Test 00:00:00 (1 - PCV) [code = Medical Ce nter PNEUMOCOCCAL 65+ YRS (1 - PCV)] Future Scheduled 1986 SHINGLES VACCINES ([address] [facility] Test 00:00:00 of 2) [code = SHINGLES Medic al Center VACCINES (1 of 2)] Future Scheduled 1955 DTAP/TDAP/TD VACCINES [facility] 00:00:00 (1 - Tdap) [code = Medical C enter DTAP/TDAP/TD VACCINES (1 - Tdap)] Future Scheduled 1936 COVID-19 VACCINE (#1) [facility] 00:00:00 [code = COVID-[address] VACCINE (#1)] Encounters Start End Encounter Admission Attending Care Care Encounter Source Date/Time Date/Time Type Type Clinicians Facility Department ID 2022-08-05 2022-08-05 Outpatient [facility]CM BC [id number] 13:01:00 23:59:00 [facility] 2022-08-05 2022-08-05 Hospital [facility] [id number] 13:01:00 17:26:00 Encounter [facility] 2022-08-05 2022-08-05 Outpatient EL KAYLA SLE Surgery [id number] [facility] 13:01:00 17:26:00 MCKEON 2022-08-05 2022-08-05 Anesthesia [facility] [id number] 15:43:00 16:16:00 Event Carl-Chelle [facility] 2022-08-05 2022-08-05 Surgery [facility] [id number] 15:00:00 16:00:00 [facility] 2022-08-05 2022-08-05 Travel [facility] [id number] [facility] 00:[facility]00 00:00:00 [facility] 2022-07-31 2022-07-31 Outpatient EL SLE SLE [id number] [facility] 11:59:14 23:59:00 2022-07-31 2022-07-31 [facility] [id number] 11:40:00 23:59:00 Encounter [facility] 2022-07-31 2022-07-31 Travel [facility] [id number] [facility] 00:00:00 00:00:00 [facility] 2022-07-23 2022-07-23 Outpatient MHIE MHIE [id number] Memoria 13:45:00 13:45:00 24 l [place] 2022-07-03 2022-07-03 Emergency E MAYI SIMONS MHBL MHBL [id number] MHBL 14:19:00 18:15:00 2022-04-11 2022-04-12 Outpatient nullFlavo MNA [id number] Memoria 18:00:00 04:59:59 r Neurology 23 l Kelin Andrade 2022-03-18 2022-03-18 Ambulatory nullFlavo MNA [id number] Memoria 19:00:00 19:00:00 Pre-Reg r Neurology 22 l Kelin Andrade 2021-11-27 2021-11-28 Outpatient nullFlavo MNA [id number] Memoria 20:00:00 04:59:59 r Neurology 21 l Kelin Andrade 2021-11-27 2021-11-27 Ambulatory nullFlavo MNA [id number] Memoria 19:45:00 19:45:00 Pre-Reg r Neurology 20 l Kelin Andrade 2021-05-06 2021-05-06 Ambulatory nullFlavo MNA [id number] Memoria 19:00:00 19:00:00 Pre-Reg r Neurology 19 l Kelin Andrade 2021 2021 Transition Tiffanie Snyder [id number] 00:00:00 00:00:00 of Care Dakotah Dwyer [id number] [place] [id number] [facility] 2021 2021 Transition Tiffanie Snydre [id number] [facility] 00:00:00 00:00:00 of Care Dakotah Dwyer [id number] ity of [place] [id number] [facility] [id number] [place] [id number] Branch 2021-04-15 2021-04-17 [facility] 1.2.840.1 [id number] 15:40:00 20:05:00 Encounter [id number] [facility] [id number] [facility] 2021-04-15 2021-04-17 [facility] 1.2.840.1 [id number] [facility] 15:40:00 20:05:00 [facility] [id number] [facility] [id number] Torrey Herman [id number] [place] [address] Branch 2021-04-15 2021-04-15 Emergency X Avani ORDONEZ [facility] ERT [id number] Univers 15:40:00 15:40:00 ity of [facility] 2021-04-04 2021-04-04 Ambulatory nullFlavo MNA [id number] Memoria 19:00:00 19:00:00 Pre-Reg r Neurology 17 l Gatesnicole Andrade 2021-03-29 2021-03-30 Outpatient nullFlavo MNA [id number] Memoria 18:00:00 04:59:59 r Neurology 18 l Gatesnicole Andrade 2021-02-20 2021-02-20 Ambulatory nullFlavo MNA [id number] Memoria 19:15:00 19:15:00 Pre-Reg r Neurology 16 l Gatesnicole Andrade 2021-01-23 2021-01-23 Ambulatory nullFlavo MNA [id number] Memoria 19:00:00 19:00:00 Pre-Reg r Neurology 13 l Kelin Andrade 2020-12-06 2020-12-06 Ambulatory nullFlavo MNA [id number] Memoria 20:30:00 20:30:00 Pre-Reg r Neurology 15 l Gatesnicole Andrade 2020-11-15 2020-11-16 Outpatient nullFlavo MNA [id number] Memoria 21:15:00 05:59:59 r Neurology 14 l Kelin Andrade 2020-10-22 2020-10-24 Outside nullFlavo MNA [id number] Memoria 21:23:00 05:59:59 Medical r Neurology 03 l Records [place] 2020-07-26 2020-07-27 Outpatient nullFlavo MNA [id number] Memoria 20:00:00 05:59:59 r Neurology 12 l [place] 2020-04-05 2020-04-06 Outpatient nullFlavo MNA [id number] Memoria 19:00:00 04:59:59 r Neurology 11 l Gatesnicole Wall[place] 2020-04-05 2020-04-05 Ambulatory nullFlavo MNA [id number] Memoria 19:00:00 19:00:00 Pre-Reg r Neurology 10 l Gatesnicole Wallann 2020-03-01 2020-03-01 Emergency [facility] [id number] 16:34:28 19:52:00 Keren Theresa Puckett [id number] [place] [id number] [place] [id number] [facility] 2020-03-01 2020-03-01 Emergency X [facility] ERT [id number] Univers 16:34:28 19:52:00 KEREN barrow [facility] 2020-03-01 2020-03-01 Emergency [facility] [id number] [facility] 16:34:28 19:52:00 Keren Cardenas [place] [id number] [id number] [id number] [address] 2019-10-06 2019-10-07 Outpatient nullFlavo MNA [id number] Mem[facility] 19:15:00 05:59:59 r Neurology 09 l Kelin Andrade 2019-07-29 2019-07-29 Outpatient MHIE MHIE [id number] [facility] 13:00:00 13:00:00 08 [facility] 2019-03-31 2019-03-31 Ambulatory nullFlavo MNA [id number] Memoria 20:15:00 20:15:00 Pre-Reg r Neurology 03 l Kelin Andrade 2019-03-25 2019-03-26 Outpatient nullFlavo MNA [id number] Memoria 18:00:00 04:59:59 r Neurology 07 l Kelin Andrade 2019-02-09 2019-02-09 Ambulatory nullFlavo MNA [id number] Memoria 19:45:00 19:45:00 Pre-Reg r Neurology 05 l Kelin Andrade 2019-01-21 2019-01-22 Outpatient nullFlavo MNA [id number] Memoria 18:15:00 04:59:59 r Neurology 06 l Kelin Andrade 2018-12-30 2018-12-31 Outpatient nullFlavo MNA [id number] Memoria 14:00:00 04:59:59 r Neurology 04 l Kelin Andrade 2018-10-19 2018-10-20 Outpatient nullFlavo MNA [id number] Mem[facility] 22:00:00 05:59:59 r Neurology 02 l Kelin Andrade 2018-09-17 2018-09-19 Phone nullFlavo MNA [id number] [facility] 21:30:00 05:59:59 Message r Neurology 01 l Kelin Raymond 2018-08-20 2018-08-22 Phone nullFlavo MNA [id number] [facility] 19:01:00 05:59:59 Message r Neurology 00 l [facility] 2018-02-04 2018-02-06 Inpatient [facility] [id number] Memoria 08:21:00 21:15:00 [place] 43 l [facility] 2015-10-22 2015-10-28 Inpatient [facility] [id number] Mem[facility] 18:39:00 17:47:00 [place] 39 l [facility] Results Test Description Test Time Test Comments Results Result Sour e Comments [place], ERCP 2022-07-16 Reason for 2 exam:->Bile 16:07:00 Duct Stone [facility] : 1935 Sex: F An imaging unit was utilized for this procedure. No radiologist interpretation was requested. Refer to the EMR for findings. Refer to PACS for any patient radiation dose information. [facility] InterpretationInte [facility] 23:44:30 rpretation/Recomme [place] ndations:Molecular NAAT Tests for [...] COVID-19 testing the patient has had at [facility], including molecular NAAT testing (more commonly known as PCR testing and Rapid ID Now testing) and antibody testing. It does not take into account any testing that a patient has had outside of the [facility] medical record. [facility] LABORATORY SERVICESCOVID HylgmjeHHNG-KkU-8 Rapid ID NOW (no units) ? ? Date ? Value ? 04/15/2021 ? Positive (A) ? ? ? 03/01/2020 ? Not Detected ? [facility] LABORATORY SERVICES Basic Metabolic Panel (NA, K, CL, CO2, GLUCOSE, BUN, 2021-04 12:21:50 CREATININE, CA) Test Item Value Reference Range Interpretation Comme nts NA (test code = 3596351612) 139 mmol/L 135-145 K (test code = 3447709736) 4.3 mmol/L 3.5-5.0 CL (test code = 2353857759) 109 mmol/L 98-108 H CO2 TOTAL (test code = 5877705906) 26 mmol/L 23-31 AGAP (test code = 7419517844) 2-16 BUN (test code = 3506121487) 15 mg/dL 7-23 GLUCOSE (test code = 7955965716) 74 mg/dL 70-110 CREATININE (test code = 0.59 mg/dL 0.50-1.04 5190073093) CALCIUM (test code = 1799872038) 7.4 mg/dL 8.6-10.6 L eGFR (test code = 8867538634) mL/min/1.73m2 DREAD (test code = DREAD) Association [...] tests). Lab Interpretation (test code = Abnormal 99489-4) [facility] HospitalGLYCOSYLATED HEMOGLOBIN (A1C)2021-04-16 11:45:40 Test Item Value Reference Range Interpretation Comments HGB A1C (test code = 5.8 % 4.0-5.7 H 4548-4) DREAD (test code = DREAD) Reference RangesNormal: <5.7%Prediabetes: 5.7 - 6.4%Diabetes: > 6.5% Lab Interpretation (test Abnormal code = 74277-2) [facility] HospitalCT CHEST PULMONARY [id number] 04:37:45 No acute pulmonary embolism identified. Apparent [...] Rightposterior rib 9 minimally displaced acute fracture. [facility], Radiant Results Inft User - 04/15/2021 11:38 [...] on 04/15/2021.Preliminary Report Dictated by Resident: Wayne Fox, MD., have reviewed this study and agree with the abovereport. [facility] HospitalADC,CLC OR LCC ONLY - INFLUENZA A & B DIRECT [id number] 23:53:22 Test Item Value Reference Range Interpretation Comments Influenza A (test code = 65716-5) Negative Negative Influenza B (test code = 63754-6) Negative Negative Lab Interpretation (test code = Normal 48808-7) [facility] HospitalaPTT2021-08-02 23:33:43 Test Item Value Reference Range Interpretation Comments APTT Patient (test See_Comment [Automat ed code = 3173-2) message] The system which generated this result transmitted reference range : 23 - 38 Seconds . The reference range was not used to interpr et this result as normal/abnormal . DREAD (test code = DREAD) The [facility] patient population mean normal value for aPTT is 30 seconds. Lab Interpretation Normal (test code = 43239-8) [facility] HospitalProthrombin Time (PT) / [id number] 23:31:24 Test Item Value Reference Range Interpretation [...] tions. Lab Interpretation (test Normal code = 49733-2) [facility] HospitalN-TERMINAL XHS-RPL3214-20-02 21:45:39 Test Item Value Reference Range Interpretation Comments NT-proBNP (test code 1030 pg/mL See_Comment H [Autom ated = 8614335467) message] The system which generated this result transmitted reference range : <=450. The reference range was not used to interpret this result as normal/abnormal . DREAD (test code = DREAD) Biotin has been reported to cause a negative bias, interpret results relative to patient's use of biotin. Lab Interpretation Abnormal (test code = 64619-3) [facility] HospitalCOM. METABOLIC PANEL (99514)2021-04-15 21:40:38 Test Item Value Reference Range Interpretation Comments NA (test code = 140 mmol/L 135-145 0575226130) K (test code = 4.4 mmol/L 3.5-5.0 3441888102) CL (test code = 107 mmol/L 98-108 7187869877) CO2 TOTAL (test code = 25 mmol/L 23-31 4536799001) AGAP (test code = 2-16 4721581391) BUN (test code = 25 mg/dL 7-23 H 3769446837) GLUCOSE (test code = 80 mg/dL 70-110 9279265932) CREATININE (test code = 0.79 mg/dL 0.50-1.04 3907576722) TOTAL BILI (test code = 0.4 mg/dL 0.1-1.2 8019024074) CALCIUM (test code = 8.6 mg/dL 8.6-10.6 5015531454) T PROTEIN (test code = 6.8 g/dL 6.3-8.2 0050800435) ALBUMIN (test code = 3.7 g/dL 3.5-5.0 2856608924) ALK PHOS (test code = 85 U/L 34-122 7158261087) ALTv (test code = 10 U/L 5-35 1742-6) AST(SGOT) (test code = 30 U/L 13-40 6019446680) eGFR (test code = mL/min/1.73m2 7960884577) DREAD (test code = DREAD) Association of [...] tests). Lab Interpretation Abnormal (test code = 67326-8) [facility] HospitalMAGNESIUM2021-08-02 21:40:38 Test Item Value Reference Range Interpretation Comments MAGNESIUM (test code = 0154831841) 2.1 mg/dL 1.7-2.4 Lab Interpretation (test code = Normal 04784-8) [facility]-NNTTS2520-31-16 21:28:56 Test Item Value Reference Interpretation Comments Range D-DIMER (test code = See_Comment H [Autom ated 2585352627) message] The system which generated this result [...] diagnosis. Lab Interpretation Abnormal (test code = 85217-7) [facility] HospitalCOVID-19 (ID NOW RAPID TESTING)2021-04-15 21:28:35 Test Item Value Reference Range Interpretation Comments SARS-CoV-2 Rapid ID NOW Positive Not Detected A (test code = 33005-3) DREAD (test code = DREAD) ID NOW COVID-19 Assay is an isothermal nucleic acid amplification test intended for the qualitative detection of nucleic acid from SARS-CoV-2 viral RNA in nasopharyngeal (SHOOTING GALLERY OPERATOR) specimens. It is used under Emergency Use [...] indicated. Lab Interpretation Abnormal (test code = 83741-7) [facility] WITH YUYJ7521-23-10 21:21:14 Test Item Value Reference Range Interpretation [...] RDW-SD (test code = 48.7 fL 39.0-49.9 65322-2) RDW-CV (test code = 13.6 % 12.0-15.5 788-0) PLT (test code = See_Comment L [Automated 777-3) message] The sy stem which generated this result transmitted reference range : 166 - 358 10*3/ ?L. The reference r kemar was not used to interpret this result as normal/abnormal . MPV (test code = 10.0 fL 9.5-12.9 11080-1) NRBC/100 WBC (test See_Comment [Automat ed code = 4474246922) message] The system which generated this result transmitted reference range : 0.0 - 10.0 /100 WBCs. The refer ence range was not u sed to interpret th is result as normal/abnormal . NRBC x10^3 (test code <0.01 See_Comment [Auto mated = 6474446664) message] The s ystem which generated this result transmitted reference range : 10*3/?L. The reference range was not used to interpret this result as normal/abnormal . GRAN MAT (NEUT) % 58.7 % (test code = 770-8) IMM GRAN % (test code 0.30 % = 1399656096) LYMPH % (test code = 22.9 % 736-9) MONO % (test code = 15.2 % 5905-5) EOS % (test code = 2.6 % 713-8) BASO % (test code = 0.3 % 706-2) GRAN MAT x10^3(ANC) 2.29 10*3/uL 1.88-7.09 (test code = 4874181559) IMM GRAN x10^3 (test <0.03 0.00-0.06 code = 3272081229) LYMPH x10^3 (test code 0.89 10*3/uL 1.32-3.29 L = 731-0) MONO x10^3 (test code 0.59 10*3/uL 0.33-0.92 = 742-7) EOS x10^3 (test code = 0.10 10*3/uL 0.03-0.39 711-2) BASO x10^3 (test code <0.03 0.01-0.07 = 704-7) Lab Interpretation Abnormal (test code = 60163-4) [facility] HospitalLactic Acid Whole Duloy5388-46-11 21:20:48 Test Item Value Reference Range Interpretation Comments LACTIC ACID (test code = 1.13 mmol/L 0.50-2.20 4882452864) Lab Interpretation (test code = Normal 84252-6) [facility] HospitalCOVID-19 (ID NOW RAPID TESTING)2020-03-01 23:27:00 Test Item Value Reference Range Interpretation Comments SARS-CoV-2 Rapid ID NOW Not Detected Not Detected (test code = 47032-2) DREAD (test code = DREAD) ID NOW COVID-19 Assay is an isothermal nucleic acid amplification test intended for the qualitative detection of nucleic acid from SARS-CoV-2 viral RNA in nasopharyngeal (SHOOTING GALLERY OPERATOR) specimens. It is used under Emergency Use [...] indicated. Lab Interpretation Normal (test code = 97458-2) [facility] HospitalTroponin [id number] 23:21:00 Test Item Value Reference Range Interpretation Comments TROPONIN I (test <0.012 See_Comment [Automated code = 9750484919) message] The system which generated this result [...] ? Lab Interpretation Normal (test code = 05282-9) [facility] HospitalN-TERMINAL EHC-VVO8307-40-18 23:18:00 Test Item Value Reference Range Interpretation Comments NT-proBNP (test code 407 pg/mL See_Comment [Autom ated = 2460339807) message] The system which generated this result transmitted reference range : <=450. The reference range was not used to interpret this result as normal/abnormal . DREAD (test code = DREAD) Biotin has been reported to cause a negative bias, interpret results relative to patient's use of biotin. Lab Interpretation Normal (test code = 73415-9) [facility] HospitalBasi Metabolic Panel (NA, K, CL, CO2, GLUCOSE, BUN, CREATININE, CA)2020-03-01 23:10:00 Test Item Value Reference Range Interpretation Comments NA (test code = 140 mmol/L 135-145 3230846063) K (test code = 4.5 mmol/L 3.5-5 0650070508) CL (test code = 108 mmol/L 98-108 4460019211) CO2 TOTAL (test code = 22 mmol/L 23-31 L 7387196711) AGAP (test code = 2-16 9694121844) BUN (test code = 18 mg/dL 7-23 0007007404) GLUCOSE (test code = 104 mg/dL 70-110 0163532920) CREATININE (test code = 0.75 mg/dL 0.5-1.04 4868085119) CALCIUM (test code = 9.2 mg/dL 8.6-10.6 7961897854) eGFR Calculation mL/min/1.73m2 (Non-) (test code = 1128806156) eGFR Calculation mL/min/1.73m2 () (test code = 9314851167) DREAD (test code = DREAD) Association of [...] tests). Lab Interpretation Abnormal (test code = 97100-5) [facility] HospitalHepatic Function Panel (ALB, T.PRO, BILI T, BU/BC, ALT, AST, ALK PHOS)2020-03-01 23:10:00 Test Item Value Reference Range Interpretation Comments TOTAL BILI (test code = 7553117418) 0.1 mg/dL 0.1-1.1 BILI UNCON (test code = 2744671862) 0.4 mg/dL 0.1-1.1 BILI CONJ (test code = 2000454555) 0.0 mg/dL 0-0.3 T PROTEIN (test code = 3405602978) 6.8 g/dL 6.3-8.2 ALBUMIN (test code = 1219647906) 3.9 g/dL 3.5-5 ALK PHOS (test code = 9002118051) 89 U/L 34-122 ALTv (test code = 1742-6) 10 U/L 5-35 AST(SGOT) (test code = 2299291274) 18 U/L 13-40 Lab Interpretation (test code = Normal 21484-1) [facility] WITH IUTZVPBLOSDV8573-76-05 23:01:00 Test Item Value Reference Range Interpretation Comments WBC (test code = See_Comment [Automated 6690-2) message] The sy stem which [...] RDW-SD (test code = 42.5 fL 39-49.9 48492-9) RDW-CV (test code = 12.0 % 12-15.5 788-0) PLT (test code = See_Comment [Automated 777-3) message] The sy stem which generated this result transmitted reference range : 166 - 358 10*3/ ?L. The reference r kemar was not used to interpret this result as normal/abnormal . MPV (test code = 9.4 fL 9.5-12.9 L 74311-1) NRBC/100 WBC (test See_Comment [Automat ed code = 3902080335) message] The system which generated this result transmitted reference range : 0.0 - 10.0 /100 WBCs. The refer ence range was not u sed to interpret th is result as normal/abnormal . NRBC x10^3 (test code <0.01 See_Comment [Auto mated = 8221354500) message] The s ystem which generated this result transmitted reference range : 10*3/?L. The reference range was not used to interpret this result as normal/abnormal . GRAN MAT (NEUT) % 61.9 % (test code = 770-8) IMM GRAN % (test code 0.40 % = 1909638132) LYMPH % (test code = 27.1 % 736-9) MONO % (test code = 8.9 % 5905-5) EOS % (test code = 1.3 % 713-8) BASO % (test code = 0.4 % 706-2) GRAN MAT x10^3(ANC) 5.16 10*3/uL 1.88-7.09 (test code = 6105079969) IMM GRAN x10^3 (test 0.03 10*3/uL 0-0.06 code = 7040987087) LYMPH x10^3 (test code 2.26 10*3/uL 1.32-3.29 = 731-0) MONO x10^3 (test code 0.74 10*3/uL 0.33-0.92 = 742-7) EOS x10^3 (test code = 0.11 10*3/uL 0.03-0.39 711-2) BASO x10^3 (test code 0.03 10*3/uL 0.01-0.07 = 704-7) Lab Interpretation Abnormal (test code = 58073-0) [facility] HospitalHEMATOLOGY2018-05-26 11:29:00 Test Item Value Reference Range Interpretation Comments Hct (test code = Hct) 25.5 36.0-48.0 [facility]RqoqothVXVFXXAXTG9252-45-09 11:29:00 Test Item Value Reference Range Interpretation Comments Hgb (test code = Hgb) 8.6 12.0-16.0 [facility]CjkebceZAJWZAXCTQKG8343-51-95 11:44:00 Test Item Value Reference Range Interpretation Comments eGFR (test code = eGFR) 82 [facility] HospitalQzqqhblPMIXIQJPQDDV4154-50-53 11:44:00 Test Item Value Reference Range Interpretation Comments Chloride Lvl (test code = Chloride Lvl) 110 95-109 [facility] HospitalZwqpdtqMNHKTKNAJDLP7388-83-87 11:44:00 Test Item Value Reference Range Interpretation Comments CO2 (test code = CO2) 24 24-32 [facility] HospitalUnccidvYFOXWBSLKOFI8888-20-16 11:44:00 Test Item Value Reference Range Interpretation Comments Sodium Lvl (test code = Sodium Lvl) 144 135-145 [facility] HospitalMeklufxQSHFIDIBIXRX4373-74-96 11:44:00 Test Item Value Reference Range Interpretation Comments Potassium Lvl (test code = Potassium 3.9 3.5-5.1 Lvl) [facility] HospitalChqmqlqXHSYBDJZPHHN5285-27-59 11:44:00 Test Item Value Reference Range Interpretation Comments BUN (test code = BUN) 20 7-22 [facility] HospitalPilicgrKEOXCBKCMNBA2815-83-74 11:44:00 Test Item Value Reference Range Interpretation Comments Creatinine Lvl (test code = Creatinine 0.68 0.50-1.40 Lvl) [facility] HospitalPrueqgxWQUDAQMBBEPV4321-95-34 11:44:00 Test Item Value Reference Range Interpretation Comments Glucose Lvl (test code = Glucose Lvl) 151 70-99 [facility] HospitalCrjlfcmVBXLUYIBBVFL6469-69-88 11:44:00 Test Item Value Reference Range Interpretation Comments Calcium Lvl (test code = Calcium Lvl) 7.9 8.5-10.5 [facility] HospitalRjpoiyrPZEFSEOUUN6595-21-86 11:44:00 Test Item Value Reference Range Interpretation Comments MCV (test code = MCV) 93.8 80.0-98.0 [facility] HospitalIdxsaeuRSDXZFQLON8006-50-28 11:44:00 Test Item Value Reference Range Interpretation Comments MCH (test code = MCH) 31.7 pg 27.0-31.0 [facility] HospitalBwhnolkBTSHLRQTSO8226-67-11 11:44:00 Test Item Value Reference Range Interpretation Comments Hct (test code = Hct) 26.2 36.0-48.0 [facility] HospitalTlppexkQRAQLOBNNY2933-00-50 11:44:00 Test Item Value Reference Range Interpretation Comments Platelet (test code = Platelet) 215 133-450 [facility] HospitalAhumazeHYNGNZXVNV4511-16-89 11:44:00 Test Item Value Reference Range Interpretation Comments MCHC (test code = MCHC) 33.8 32.0-36.0 [facility] HospitalIfzqohjPRVPFMEJKR9347-44-27 11:44:00 Test Item Value Reference Range Interpretation Comments MPV (test code = MPV) 6.8 7.4-10.4 [facility] HospitalDexgpenJTNDFNCQBW0370-01-20 11:44:00 Test Item Value Reference Range Interpretation Comments RDW (test code = RDW) 12.7 11.5-14.5 [facility] HospitalLmuuxshNVCPYPDDNZ8210-13-03 11:44:00 Test Item Value Reference Range Interpretation Comments Hgb (test code = Hgb) 8.9 12.0-16.0 [facility] HospitalWqzsszhOJUQHNFENP5754-43-71 11:44:00 Test Item Value Reference Range Interpretation Comments WBC (test code = WBC) 7.6 3.7-10.4 [facility] HospitalKjwjuoiYVWWMOODKN2488-50-25 11:44:00 Test Item Value Reference Range Interpretation Comments RBC (test code = RBC) 2.79 4.20-5.40 [facility] HospitalIvdozzeVZWMZSAYZZ0934-31-49 11:44:00 Test Item Value Reference Range Interpretation Comments Monocytes # (test code 1.2 See_Comment [Aut omated message] The = Monocytes #) system which generated this result tra nsmitted reference range : <=0.8. The reference r kemar was not used to int erpret this result as normal/abnormal . [facility] HospitalCfohnleAFXGEKDLQX2495-26-54 11:44:00 Test Item Value Reference Range Interpretation Comments Lymphocytes # (test code = Lymphocytes 1.2 1.0-5.5 #) [facility] HospitalDubkpeqNUFLSYAONI9126-67-52 11:44:00 Test Item Value Reference Range Interpretation Comments Monocytes (test code = Monocytes) 16.0 2.0-12.0 [facility] HospitalCxompvpZPCMLMRQLY2552-46-59 11:44:00 Test Item Value Reference Range Interpretation Comments Lymphocytes (test code = Lymphocytes) 15.8 20.0-40.0 [facility] HospitalDqrvgiuYXYBJQHVHO8657-32-26 11:44:00 Test Item Value Reference Range Interpretation Comments Segs (test code = Segs) 67.9 45.0-75.0 [facility] HospitalAonfurbMEGMGKJEHY0644-22-85 11:44:00 Test Item Value Reference Range Interpretation Comments Segs-Bands # (test code = Segs-Bands #) 5.1 1.5-8.1 [facility]BPMKL[facility]NEK2538[facility]-34 11:44:00 Test Item Value Reference Range Interpretation Comments Basophils (test code = 0.3 See_Comment [Aut omated message] The Basophils) system which ge nerated this result tra nsmitted reference range : <=1.0. The reference r kemar was not used to int erpret this result as normal/abnormal . [facility] TylerPARATHYROID GLFPMXW0514-51-13 11:44:00 Test Item Value Reference Range Interpretation Comments PTH Intact (test code = PTH Intact) 122.9 18.4-80.1 [facility] [employer] QEFNL8168-85-15 11:44:00 Test Item Value Reference Range Interpretation Comments Vitamin D, 25-OH, Total (test code = 12.4 30.0-100.0 Vitamin D, 25-OH, Total) [facility]RfdljglGOTYTGHFTOHH0015-66-47 11:44:00 Test Item Value Reference Range Interpretation Comments AGAP (test code = AGAP) 13.9 10.0-20.0 [facility] [employer] XCHCEAO7421-25-43 09:21:00 Test Item Value Reference Range Interpretation Comments ABO/Rh (test code = ABO/Rh) O POS [facility] [employer] VZYYEYB3712-27-89 09:21:00 Test Item Value Reference Range Interpretation Comments Antibody Scrn (test Negative (02/04/18 4:21 code = Antibody Scrn) AM) [facility] [employer] VIVMU6715-15-37 09:06:59 Test Item Value Reference Range Interpretation Comments Lactic Acid Lvl (test code = Lactic 0.9 0.5-2.2 Acid Lvl) [facility]EipkcuoXFSCGKYKUZIU5900-35-70 09:06:59 Test Item Value Reference Range Interpretation Comments AGAP (test code = AGAP) 11.9 10.0-20.0 [facility] CqwrebrOAQGCZLZNIYD2368-28-84 09:06:59 Test Item Value Reference Range Interpretation Comments eGFR (test code = eGFR) 83 [facility] CenterAnmbxukXHYSXQTZQXHK1921-65-77 09:06:59 Test Item Value Reference Range Interpretation Comments Calcium Lvl (test code = Calcium Lvl) 8.1 8.5-10.5 [facility] CenterHavhszsGICUFFOUGHAE1402-89-81 09:06:59 Test Item Value Reference Range Interpretation Comments CO2 (test code = CO2) 22 24-32 [facility]OghxdizCNNOBFRFFQHX3359-55-71 09:06:59 Test Item Value Reference Range Interpretation Comments Sodium Lvl (test code = Sodium Lvl) 140 135-145 [facility] HospitalIepbofuAQXAQWTAOQXL2858-07-77 09:06:59 Test Item Value Reference Range Interpretation Comments Creatinine Lvl (test code = Creatinine 0.67 0.50-1.40 Lvl) [facility] HospitalBlaxxbnSKKKYLOYFUAK2410-80-73 09:06:59 Test Item Value Reference Range Interpretation Comments BUN (test code = BUN) 22 7-22 [facility] HospitalXklvwhpSVWGSDYRKNSY8827-02-59 09:06:59 Test Item Value Reference Range Interpretation Comments Glucose Lvl (test code = Glucose Lvl) 135 70-99 [facility] HospitalHajkgleYPEVYOWPWZWD1698-07-24 09:06:59 Test Item Value Reference Range Interpretation Comments Chloride Lvl (test code = Chloride Lvl) 110 95-109 [facility] HospitalOnxlhvbHDHPQUMXIZMX4162-21-21 09:06:59 Test Item Value Reference Range Interpretation Comments Potassium Lvl (test code = Potassium 3.9 3.5-5.1 Lvl) [facility] HospitalTxuqakqHJDBNYGBXT2535-07-68 09:06:59 Test Item Value Reference Range Interpretation Comments PTT (test code = PTT) 24.7 s 22.9-35.8 [facility] HospitalDwyxoanADALRUTLJM2917-49-67 09:06:59 Test Item Value Reference Range Interpretation Comments INR (test code = INR) 1.01 1 0.85-1.17 [facility] HospitalAjjrhhfNMPLSOVPDS9275-71-23 09:06:59 Test Item Value Reference Range Interpretation Comments PT (test code = PT) 13.3 s 12.0-14.7 [facility] HospitalBclkzggYXSFSMPZXG2027-79-27 09:06:59 Test Item Value Reference Range Interpretation Comments Platelet (test code = Platelet) 232 133-450 [facility] HospitalMieyzgfLODLIQIXJH7531-78-61 09:06:59 Test Item Value Reference Range Interpretation Comments MPV (test code = MPV) 7.1 7.4-10.4 [facility] HospitalDaaotwzXSIBDOVBOI1421-20-69 09:06:59 Test Item Value Reference Range Interpretation Comments Hct (test code = Hct) 32.2 36.0-48.0 [facility] HospitalKrnrqafVAFOXHOGGS2225-70-45 09:06:59 Test Item Value Reference Range Interpretation Comments RBC (test code = RBC) 3.42 4.20-5.40 [facility] HospitalBthzmazQBBKGJXRNM8379-93-55 09:06:59 Test Item Value Reference Range Interpretation Comments Hgb (test code = Hgb) 10.8 12.0-16.0 [facility] HospitalXhafmvwTXTYETRUSA4494-42-04 09:06:59 Test Item Value Reference Range Interpretation Comments WBC (test code = WBC) 8.5 3.7-10.4 [facility] HospitalCbdaibqDZWZXYDDAO9342-87-30 09:06:59 Test Item Value Reference Range Interpretation Comments MCHC (test code = MCHC) 33.5 32.0-36.0 [facility] HospitalBrxhpcgBHWSSMNXFJ0274-08-75 09:06:59 Test Item Value Reference Range Interpretation Comments RDW (test code = RDW) 13.0 11.5-14.5 [facility]ttfevjUURDGIDNBN4318-86-01 09:06:59 Test Item Value Reference Range Interpretation Comments MCV (test code = MCV) 94.1 80.0-98.0 [facility]XqzwtigMZGWSJUTJP6207-69-89 09:06:59 Test Item Value Reference Range Interpretation Comments MCH (test code = MCH) 31.5 pg 27.0-31.0 [facility] HospitalIgqkmnkLYIIDEKXBO4580-51-58 09:06:59 Test Item Value Reference Range Interpretation Comments Eosinophils (test code = 2.3 See_Comment [A utomated message] The Eosinophils) system which ge nerated this result tra nsmitted reference range : <=4.0. The reference r kemar was not used to int erpret this result as normal/abnormal . [facility] HospitalNawsbfqXOQFCCMUCD3924-35-82 09:06:59 Test Item Value Reference Range Interpretation Comments Lymphocytes # (test code = Lymphocytes 1.7 1.0-5.5 #) [facility] HospitalHqqacsnYXMJNPEVJV0120-48-51 09:06:59 Test Item Value Reference Range Interpretation Comments Segs-Bands # (test code = Segs-Bands #) 5.5 1.5-8.1 [facility] HospitalTfurbhnKXHGXDDRCB6788-01-50 09:06:59 Test Item Value Reference Range Interpretation Comments Basophils (test code = 0.8 See_Comment [Aut omated message] The Basophils) system which ge nerated this result tra nsmitted reference range : <=1.0. The reference r kemar was not used to int erpret this result as normal/abnormal . [facility] HospitalEwjdpybEWKRKLKUQJ8118-58-39 09:06:59 Test Item Value Reference Range Interpretation Comments Basophils # (test code 0.1 See_Comment [Aut omated message] The = Basophils #) system which generated this result tra nsmitted reference range : <=0.2. The reference r kemar was not used to int erpret this result as normal/abnormal . [facility] HospitalRbceocvWUBOGHXKRM1003-31-52 09:06:59 Test Item Value Reference Range Interpretation Comments Eosinophils # (test code 0.2 See_Comment [A utomated message] The = Eosinophils #) system whic h generated this result tra nsmitted reference range : <=0.5. The reference r kemar was not used to int erpret this result as normal/abnormal . [facility] HospitalWavcdqwJNRKKTGORX7957-93-06 09:06:59 Test Item Value Reference Range Interpretation Comments Monocytes # (test code 1.1 See_Comment [Aut omated message] The = Monocytes #) system which generated this result tra nsmitted reference range : <=0.8. The reference r kemar was not used to int erpret this result as normal/abnormal . [facility] HospitalVqcwkryZFNQFDIBRQ8702-31-48 09:06:59 Test Item Value Reference Range Interpretation Comments Segs (test code = Segs) 64.6 45.0-75.0 [facility] HospitalXhxujgzGBCKSDCYWY6402-54-07 09:06:59 Test Item Value Reference Range Interpretation Comments Lymphocytes (test code = Lymphocytes) 19.7 20.0-40.0 [facility] HospitalHpcptlzMPSNOPSPJF0797-37-37 09:06:59 Test Item Value Reference Range Interpretation Comments Monocytes (test code = Monocytes) 12.6 2.0-12.0 [facility]hhifdODBFTXBAIWRS2640-38-56 11:14:00 Test Item Value Reference Range Interpretation Comments AGAP (test code = AGAP) 11.7 10.0-20.0 [facility] HospitalEctaigrKQOPXGWPRFJT3300-50-48 11:14:00 Test Item Value Reference Range Interpretation Comments eGFR (test code = eGFR) 99 [facility] HospitalOkgehwbRWFADWCZTOTV6578-17-93 11:14:00 Test Item Value Reference Range Interpretation Comments CO2 (test code = CO2) 29 24-32 [facility] HospitalZrjfymyVLZQZKMLXGCI6831-09-72 11:14:00 Test Item Value Reference Range Interpretation Comments Chloride Lvl (test code = Chloride Lvl) 104 95-109 [facility] HospitalRyfvlhiQQQZUVALVTUG5088-61-83 11:14:00 Test Item Value Reference Range Interpretation Comments Potassium Lvl (test code = Potassium 3.7 3.5-5.1 Lvl) [facility] HospitalJjecmziWEJIYWIPGDQH9360-82-90 11:14:00 Test Item Value Reference Range Interpretation Comments Sodium Lvl (test code = Sodium Lvl) 141 135-145 [facility] HospitalWqqjkbkSMVGCFOPKDWF1990-19-46 11:14:00 Test Item Value Reference Range Interpretation Comments Creatinine Lvl (test code = Creatinine 0.40 0.50-1.40 Lvl) [facility] HospitalZwttkqvQZCYRLACGTDP1042-33-00 11:14:00 Test Item Value Reference Range Interpretation Comments Calcium Lvl (test code = Calcium Lvl) 8.1 8.5-10.5 [facility] HospitalFxtpaooZOCRMDNPDLVY7487-09-35 11:14:00 Test Item Value Reference Range Interpretation Comments BUN (test code = BUN) 8 7-22 [facility] HospitalQgcftubVNCGEAAUNQHY0836-02-03 11:14:00 Test Item Value Reference Range Interpretation Comments Glucose Lvl (test code = Glucose Lvl) 94 70-99 [facility] HospitalDsqjptzUBQMPVRRCT4369-46-89 11:14:00 Test Item Value Reference Range Interpretation Comments RDW (test code = RDW) 16.6 11.5-14.5 [facility] HospitalWihnpqnSVCZVGILIG9220-84-20 11:14:00 Test Item Value Reference Range Interpretation Comments MPV (test code = MPV) 7.2 7.4-10.4 [facility] HospitalVfnqrhzRDQTFMJTMC4938-94-11 11:14:00 Test Item Value Reference Range Interpretation Comments Platelet (test code = Platelet) 299 133-450 [facility] HospitalHubtbagGOIMXCPAFR2581-92-70 11:14:00 Test Item Value Reference Range Interpretation Comments MCH (test code = MCH) 29.8 pg 27.0-31.0 [facility] HospitalRxjxdpnCOYSARWMJE5347-18-13 11:14:00 Test Item Value Reference Range Interpretation Comments MCHC (test code = MCHC) 32.9 32.0-36.0 [facility] HospitalCmppsczOJWMUQBIVS5626-45-28 11:14:00 Test Item Value Reference Range Interpretation Comments MCV (test code = MCV) 90.5 80.0-98.0 [facility] HospitalZjfzlosOUEZXLQIPH1629-70-18 11:14:00 Test Item Value Reference Range Interpretation Comments RBC (test code = RBC) 3.41 4.20-5.40 [facility] HospitalJgagvqhZOTFQIDRJK7164-06-65 11:14:00 Test Item Value Reference Range Interpretation Comments WBC (test code = WBC) 8.1 3.7-10.4 [facility] HospitalNzxexldEOVTKAWIJA1129-80-99 11:14:00 Test Item Value Reference Range Interpretation Comments Hct (test code = Hct) 30.9 36.0-48.0 [facility] HospitalIihbnofQFVXFNEBZD0347-60-75 11:14:00 Test Item Value Reference Range Interpretation Comments Hgb (test code = Hgb) 10.2 12.0-16.0 [facility] HospitalYgyumirDJDYTPBKTA1614-57-69 11:14:00 Test Item Value Reference Range Interpretation Comments Basophils (test code = 1.1 See_Comment [Aut omated message] The Basophils) system which ge nerated this result tra nsmitted reference range : <=1.0. The reference r kemar was not used to int erpret this result as normal/abnormal . [facility] HospitalMmdjnjmKPLJKJVAIR2132-41-32 11:14:00 Test Item Value Reference Range Interpretation Comments Segs-Bands # (test code = Segs-Bands #) 5.4 1.5-8.1 [facility] HospitalNizjeitTQCELXRGFW1283-34-60 11:14:00 Test Item Value Reference Range Interpretation Comments Basophils # (test code 0.1 See_Comment [Aut omated message] The = Basophils #) system which generated this result tra nsmitted reference range : <=0.2. The reference r kemar was not used to int erpret this result as normal/abnormal . [facility] HospitalXtbwhouLFXVAAKFPB3081-11-97 11:14:00 Test Item Value Reference Range Interpretation Comments Lymphocytes # (test code = Lymphocytes 1.2 1.0-5.5 #) [facility] HospitalGolfiqkFDLUQCEUHE2278-15-38 11:14:00 Test Item Value Reference Range Interpretation Comments Monocytes # (test code 0.8 See_Comment [Aut omated message] The = Monocytes #) system which generated this result tra nsmitted reference range : <=0.8. The reference r kemar was not used to int erpret this result as normal/abnormal . [facility] HospitalNsdemllJZSNQBYWJC7376-67-33 11:14:00 Test Item Value Reference Range Interpretation Comments Eosinophils # (test code 0.6 See_Comment [A utomated message] The = Eosinophils #) system whic h generated this result tra nsmitted reference range : <=0.5. The reference r kemar was not used to int erpret this result as normal/abnormal . [facility] HospitalSuxmgpxOFMVCXWEHH1125-02-61 11:14:00 Test Item Value Reference Range Interpretation Comments Segs (test code = Segs) 66.7 45.0-75.0 [facility] HospitalJtynxlcGYGHYHPLGS6065-65-53 11:14:00 Test Item Value Reference Range Interpretation Comments Lymphocytes (test code = Lymphocytes) 15.1 20.0-40.0 [facility] HospitalKlajfwdEDALZGQESY9342-26-33 11:14:00 Test Item Value Reference Range Interpretation Comments Monocytes (test code = Monocytes) 9.7 2.0-12.0 [facility] HospitalJicxposQAPCZZUPBN2205-68-80 11:14:00 Test Item Value Reference Range Interpretation Comments Eosinophils (test code = 7.4 See_Comment [A utomated message] The Eosinophils) system which ge nerated this result tra nsmitted reference range : <=4.0. The reference r kemar was not used to int erpret this result as normal/abnormal . [facility] HospitalGothedlBWZGTFDEJS6445-92-76 02:47:00 Test Item Value Reference Range Interpretation Comments Hct (test code = Hct) 30.2 36.0-48.0 [facility] HospitalXypzklvPLNHENVOGB7432-46-47 02:47:00 Test Item Value Reference Range Interpretation Comments Hgb (test code = Hgb) 10.1 12.0-16.0 [facility] HospitalGxxzooaPXMYEHDYBR3761-30-38 18:09:00 Test Item Value Reference Range Interpretation Comments Hgb (test code = Hgb) 9.4 12.0-16.0 [facility] HospitalFuopytwARVERZMSFI5306-62-67 18:09:00 Test Item Value Reference Range Interpretation Comments Hct (test code = Hct) 27.9 36.0-48.0 [facility] HospitalUzmitgwVJJHJRNHPA6363-48-55 10:49:00 Test Item Value Reference Range Interpretation Comments PT (test code = PT) 14.3 s 12.0-14.7 [facility] HospitalLjgsnxhCEHRRJZPRI2498-70-31 10:49:00 Test Item Value Reference Range Interpretation Comments PTT (test code = PTT) 34.3 s 22.9-35.8 [facility] HospitalKgsqglyZXUGMPHYEO0794-28-94 10:49:00 Test Item Value Reference Range Interpretation Comments INR (test code = INR) 1.08 0.85-1.17 [facility] HospitalLvpnwcmWVCCRRXWIZ6093-75-58 10:49:00 Test Item Value Reference Range Interpretation Comments Eosinophils (test code = 4.9 See_Comment [A utomated message] The Eosinophils) system which ge nerated this result tra nsmitted reference range : <=4.0. The reference r kemar was not used to int erpret this result as normal/abnormal . [facility] HospitalNutmxamRKNKPERDJQ4533-53-82 10:49:00 Test Item Value Reference Range Interpretation Comments Monocytes (test code = Monocytes) 8.3 2.0-12.0 [facility] HospitalIjsjkydPKXTYWLGFF9480-26-22 10:49:00 Test Item Value Reference Range Interpretation Comments Basophils # (test code 0.1 See_Comment [Aut omated message] The = Basophils #) system which generated this result tra nsmitted reference range : <=0.2. The reference r kemar was not used to int erpret this result as normal/abnormal . [facility] HospitalUhyundsYZWFFUNPSK4335-70-12 10:49:00 Test Item Value Reference Range Interpretation Comments Lymphocytes # (test code = Lymphocytes 0.9 1.0-5.5 #) [facility] HospitalNoxbozuGRYCFDJEEH7040-93-49 10:49:00 Test Item Value Reference Range Interpretation Comments Monocytes # (test code 0.8 See_Comment [Aut omated message] The = Monocytes #) system which generated this result tra nsmitted reference range : <=0.8. The reference r kemar was not used to int erpret this result as normal/abnormal . [facility] HospitalIogalccUGDAGBFNKC4266-19-94 10:49:00 Test Item Value Reference Range Interpretation Comments Basophils (test code = 0.7 See_Comment [Aut omated message] The Basophils) system which ge nerated this result tra nsmitted reference range : <=1.0. The reference r kemar was not used to int erpret this result as normal/abnormal . [facility] HospitalGdbblgbQVQMAFMUTE4263-87-69 10:49:00 Test Item Value Reference Range Interpretation Comments Segs-Bands # (test code = Segs-Bands #) 7.0 1.5-8.1 [facility] HospitalEpofmsfNYEFOHFEPP1696-30-67 10:49:00 Test Item Value Reference Range Interpretation Comments Lymphocytes (test code = Lymphocytes) 9.9 20.0-40.0 [facility] HospitalVrthwzgQOBKKTKAJW5971-52-38 10:49:00 Test Item Value Reference Range Interpretation Comments Segs (test code = Segs) 76.2 45.0-75.0 [facility] HospitalTvsjtheYZZICMMANE6081-92-71 10:49:00 Test Item Value Reference Range Interpretation Comments Eosinophils # (test code 0.5 See_Comment [A utomated message] The = Eosinophils #) system whic h generated this result tra nsmitted reference range : <=0.5. The reference r kemar was not used to int erpret this result as normal/abnormal . [facility] HospitalIqnnuinXAVOCVXXSR6488-89-18 10:49:00 Test Item Value Reference Range Interpretation Comments WBC (test code = WBC) 9.2 3.7-10.4 [facility] HospitalTeakkskYPYZDBHRCA1055-63-21 10:49:00 Test Item Value Reference Range Interpretation Comments MPV (test code = MPV) 7.5 7.4-10.4 [facility] HospitalQhzoqpwMPMJEHCPGO8208-93-61 10:49:00 Test Item Value Reference Range Interpretation Comments MCV (test code = MCV) 90.5 80.0-98.0 [facility] HospitalIgmsaegGDZVFRKQQP1337-44-27 10:49:00 Test Item Value Reference Range Interpretation Comments MCH (test code = MCH) 30.0 pg 27.0-31.0 [facility] HospitalOevsikjMKOMZKKTIV3851-28-02 10:49:00 Test Item Value Reference Range Interpretation Comments MCHC (test code = MCHC) 33.1 32.0-36.0 [facility] HospitalGavhlydCQKPNDTOCS1888-63-55 10:49:00 Test Item Value Reference Range Interpretation Comments RBC (test code = RBC) 2.88 4.20-5.40 [facility] HospitalKhlmlbkNNZSFRFVOD5316-21-63 10:49:00 Test Item Value Reference Range Interpretation Comments Platelet (test code = Platelet) 246 133-450 [facility]WamamzwPBACIMVQSI1842-97-48 10:49:00 Test Item Value Reference Range Interpretation Comments RDW (test code = RDW) 16.9 11.5-14.5 [facility] AND [id number] 23:46:00 Test Item Value Reference Range Interpretation Comments UA Urobilinogen (test code = UA no gt 0.1-1.0 Urobilinogen) [facility] AND [id number] 23:46:00 Test Item Value Reference Range Interpretation Comments Micro? (test code = Performed *NA*(10/26/15 Micro?) 5:46 PM) [facility] AND [id number] 23:46:00 Test Item Value Reference Range Interpretation Comments UA RBC (test code = no gt See_Comment [Automa dewey message] The UA RBC) system which ge nerated this result transmit dewey reference range : <=2. The reference range was not used to interpr et this result as deyvi l/abnormal. [facility] AND [id number] 23:46:00 Test Item Value Reference Range Interpretation Comments UA Bacteria (test code = UA Occasional /HPF Bacteria) [facility] [id number] 23:46:00 Test Item Value Reference Range Interpretation Comments UA Bili (test code = Negative *NA*(10/26/15 UA Bili) 5:46 PM) [facility] AND [id number] 23:46:00 Test Item Value Reference Range Interpretation Comments UA Protein (test code = UA Negative mg/dL Protein) [facility] AND [id number] 23:46:00 Test Item Value Reference Range Interpretation Comments UA Glucose (test code = UA Negative mg/dL Glucose) [facility] AND [id number] 23:46:00 Test Item Value Reference Range Interpretation Comments UA Ketones (test code = UA Negative mg/dL Ketones) [facility] AND [id number] 23:46:00 Test Item Value Reference Range Interpretation Comments UA WBC (test code = 1 See_Comment [Automa dewey message] The UA WBC) system which ge nerated this result transmit dewey reference range : <=5. The reference range was not used to interpr et this result as deyvi l/abnormal. [facility] AND [id number] 23:46:00 Test Item Value Reference Range Interpretation Comments UA Sq Epi (test code = UA Sq Occasional /LPF Epi) [facility] AND [id number] 23:46:00 Test Item Value Reference Range Interpretation Comments UA Leuk Est (test code Trace *ABN*(10/26/15 = UA Leuk Est) 5:46 PM) [facility] AND [id number] 23:46:00 Test Item Value Reference Range Interpretation Comments UA Nitrite (test code Negative (10/26/15 5:46 = UA Nitrite) PM) [facility] AND [id number] 23:46:00 Test Item Value Reference Range Interpretation Comments UA Blood (test code = Negative (10/26/15 5:46 UA Blood) PM) [facility] [id number] 23:46:00 Test Item Value Reference Range Interpretation Comments UA Turbidity (test code = Clear (10/26/15 5:46 UA Turbidity) PM) [facility] AND [id number] 23:46:00 Test Item Value Reference Range Interpretation Comments UA Spec Grav (test code = UA Spec Grav) 1.006 [facility] AND [id number] 23:46:00 Test Item Value Reference Range Interpretation Comments UA pH (test code = UA pH) 6.0 5.0-8.0 [facility] AND [id number] 23:46:00 Test Item Value Reference Range Interpretation Comments UA Color (test code = Light Yellow UA Color) *NA*(10/26/15 5:46 PM) [facility] [employer] GIKWOFJ6674-13-70 10:09:00 Test Item Value Reference Range Interpretation Comments ABO/Rh (test code = ABO/Rh) O POS [facility] [employer] WKGMHYZ4235-00-01 10:09:00 Test Item Value Reference Range Interpretation Comments Antibody Scrn (test Negative (10/26/15 4:09 code = Antibody Scrn) AM) [facility] [employer] [id number] 10:09:00 Test Item Value Reference Range Interpretation Comments eGFR (test code = eGFR) 99 [facility] [employer] [id number] 10:09:00 Test Item Value Reference Range Interpretation Comments Calcium Lvl (test code = Calcium Lvl) 7.4 8.5-10.5 [facility]2016-02-12 10:09:00 Test Item Value Reference Range Interpretation Comments CO2 (test code = CO2) 30 24-32 [facility]2016-02-12 10:09:00 Test Item Value Reference Range Interpretation Comments Chloride Lvl (test code = Chloride Lvl) 103 95-109 [facility]2016-02-12 10:09:00 Test Item Value Reference Range Interpretation Comments Sodium Lvl (test code = Sodium Lvl) 141 135-145 [facility]2016-02-12 10:09:00 Test Item Value Reference Range Interpretation Comments Potassium Lvl (test code = Potassium 3.6 3.5-5.1 Lvl) [facility]2016-02-12 10:09:00 Test Item Value Reference Range Interpretation Comments BUN (test code = BUN) 13 7-22 [facility]2016-02-12 10:09:00 Test Item Value Reference Range Interpretation Comments Creatinine Lvl (test code = Creatinine 0.40 0.50-1.40 Lvl) [facility]2016-02-12 10:09:00 Test Item Value Reference Range Interpretation Comments Glucose Lvl (test code = Glucose Lvl) 124 70-99 [facility]2016-02-12 10:09:00 Test Item Value Reference Range Interpretation Comments AGAP (test code = AGAP) 11.6 10.0-20.0 [facility]2016-02-12 10:09:00 Test Item Value Reference Range Interpretation Comments Phosphorus (test code = Phosphorus) 2.4 2.5-4.5 [facility]2016-02-12 10:09:00 Test Item Value Reference Range Interpretation Comments Magnesium Lvl (test code = Magnesium 1.9 1.8-2.4 Lvl) [id number] 10:09:00 Test Item Value Reference Range Interpretation Comments Basophils (test code = 0.4 See_Comment [Aut omated message] The Basophils) system which ge nerated this result tra nsmitted reference range : <=1.0. The reference r kemar was not used to int erpret this result as normal/abnormal . [facility] HospitalWczepphWIOYDSTWTH4645-35-33 10:09:00 Test Item Value Reference Range Interpretation Comments Segs-Bands # (test code = Segs-Bands #) 9.0 1.5-8.1 [facility] HospitalEzxcykvRDTEVNQBZI3946-73-60 10:09:00 Test Item Value Reference Range Interpretation Comments Monocytes (test code = Monocytes) 7.1 2.0-12.0 [facility] HospitalMvelmgmYGMYILCPCM2743-93-87 10:09:00 Test Item Value Reference Range Interpretation Comments Lymphocytes (test code = Lymphocytes) 9.6 20.0-40.0 [facility] HospitalLganjdwVUTZQEBXFA8631-91-64 10:09:00 Test Item Value Reference Range Interpretation Comments Lymphocytes # (test code = Lymphocytes 1.1 1.0-5.5 #) [facility] HospitalZcbuyzyNESJWNRYIZ3899-04-01 10:09:00 Test Item Value Reference Range Interpretation Comments Eosinophils (test code = 3.4 See_Comment [A utomated message] The Eosinophils) system which ge nerated this result tra nsmitted reference range : <=4.0. The reference r kemar was not used to int erpret this result as normal/abnormal . [facility] HospitalJpmpgcxVHUFMUSXEJ4324-30-66 10:09:00 Test Item Value Reference Range Interpretation Comments Eosinophils # (test code 0.4 See_Comment [A utomated message] The = Eosinophils #) system [facility] h generated this result tra nsmitted reference range : <=0.5. The reference r kemar was not used to int erpret this result as normal/abnormal . [facility] HospitalUpwyihlPKJGIRFHMY2747-65-55 10:09:00 Test Item Value Reference Range Interpretation Comments Basophils # (test code 0.0 See_Comment [Aut omated message] The = Basophils #) system which generated this result tra nsmitted reference range : <=0.2. The reference r kemar was not used to int erpret this result as normal/abnormal . [facility] HospitalXwntavpYEPJSLTNPO3533-36-72 10:09:00 Test Item Value Reference Range Interpretation Comments Monocytes # (test code 0.8 See_Comment [Aut omated message] The = Monocytes #) system which generated this result tra nsmitted reference range : <=0.8. The reference r kemar was not used to int erpret this result as normal/abnormal . [facility] HospitalJgfjqtoDRZYAFUWLV8378-37-92 10:09:00 Test Item Value Reference Range Interpretation Comments Segs (test code = Segs) 79.5 45.0-75.0 [facility] HospitalVyokeyhHTSUYMKZHP3239-25-39 10:09:00 Test Item Value Reference Range Interpretation Comments MCH (test code = MCH) 29.9 pg 27.0-31.0 [facility] HospitalZgjgnbkUYABWRIAAD9500-40-32 10:09:00 Test Item Value Reference Range Interpretation Comments RBC (test code = RBC) 2.93 4.20-5.40 [facility] HospitalIrlntsgWZTPRFLXCL7680-44-10 10:09:00 Test Item Value Reference Range Interpretation Comments MPV (test code = MPV) 7.4 7.4-10.4 [facility] HospitalBlzpubvDBSOGCWVYZ7519-58-38 10:09:00 Test Item Value Reference Range Interpretation Comments RDW (test code = RDW) 17.7 11.5-14.5 [facility] HospitalKvyennbHROEBDECQZ0714-98-02 10:09:00 Test Item Value Reference Range Interpretation Comments MCHC (test code = MCHC) 32.8 32.0-36.0 [facility] HospitalQawueseLQAGJCZZZD4583-82-52 10:09:00 Test Item Value Reference Range Interpretation Comments Platelet (test code = Platelet) 182 133-450 [facility] HospitalOtjxathODGIKXGMKZ0611-17-35 10:09:00 Test Item Value Reference Range Interpretation Comments MCV (test code = MCV) 91.2 80.0-98.0 [facility] HospitalStzkucsTBBQXQZGHZ1885-74-01 10:09:00 Test Item Value Reference Range Interpretation Comments WBC (test code = WBC) 11.3 3.7-10.4 [facility] [id number] 10:09:00 Test Item Value Reference Range Interpretation Comments Ca Ion WB (test code = Ca Ion WB) 1.08 1.05-1.25 [id number] 10:09:00 Test Item Value Reference Range Interpretation Comments Ca Norm WB (test code = Ca Norm WB) 1.09 1.05-1.25 [facility] [id number] 22:16:00 Test Item Value Reference Range Interpretation Comments RBC product (test code Product available = RBC product) (10/25/15 4:16 PM) [id number] 16:21:00 Test Item Value Reference Range Interpretation Comments Polychrom (test code = Moderate *ABN*(10/25/15 Polychrom) 10:21 AM) [id number] 16:21:00 Test Item Value Reference Range Interpretation Comments Plt Morph (test code = Normal (10/25/15 10:21 Plt Morph) AM) [id number] 16:21:00 Test Item Value Reference Range Interpretation Comments Baso Stipplin (test Moderate *ABN*(10/25/15 code = Baso Stipplin) 10:21 AM) [id number] 16:21:00 Test Item Value Reference Range Interpretation Comments PTT (test code = PTT) 33.0 s 22.9-35.8 [facility] [id number] 16:21:00 Test Item Value Reference Range Interpretation Comments INR (test code = INR) 1.18 0.85-1.17 [facility] [id number] 16:21:00 Test Item Value Reference Range Interpretation Comments PT (test code = PT) 15.3 s 12.0-14.7 [facility] [id number] 08:39:00 Test Item Value Reference Range Interpretation Comments RBC product (test code Product available = RBC product) (10/25/15 2:39 AM) [facility] [id number] 07:39:00 Test Item Value Reference Range Interpretation Comments Magnesium Lvl (test code = Magnesium 1.7 1.8-2.4 Lvl) [facility] [id number] 07:39:00 Test Item Value Reference Range Interpretation Comments eGFR (test code = eGFR) 99 [facility] [id number] 07:39:00 Test Item Value Reference Range Interpretation Comments Calcium Lvl (test code = Calcium Lvl) 7.4 8.5-10.5 [facility] [id number] 07:39:00 Test Item Value Reference Range Interpretation Comments AGAP (test code = AGAP) 12.4 10.0-20.0 [facility] [id number] 07:39:00 Test Item Value Reference Range Interpretation Comments Glucose Lvl (test code = Glucose Lvl) 137 70-99 [facility]2016-02-11 07:39:00 Test Item Value Reference Range Interpretation Comments BUN (test code = BUN) 16 7-22 [facility]2016-02-11 07:39:00 Test Item Value Reference Range Interpretation Comments Creatinine Lvl (test code = Creatinine 0.40 0.50-1.40 Lvl) [facility]2016-02-11 07:39:00 Test Item Value Reference Range Interpretation Comments Sodium Lvl (test code = Sodium Lvl) 141 135-145 [facility]2016-02-11 07:39:00 Test Item Value Reference Range Interpretation Comments Potassium Lvl (test code = Potassium 3.4 3.5-5.1 Lvl) [facility]2016-02-11 07:39:00 Test Item Value Reference Range Interpretation Comments Chloride Lvl (test code = Chloride Lvl) 105 95-109 [facility]2016-02-11 07:39:00 Test Item Value Reference Range Interpretation Comments CO2 (test code = CO2) 27 24-32 [facility]2016-02-11 07:39:00 Test Item Value Reference Range Interpretation Comments Phosphorus (test code = Phosphorus) 3.1 2.5-4.5 [id number] 07:39:00 Test Item Value Reference Range Interpretation Comments Baso Stipplin (test Moderate *ABN*(10/25/15 code = Baso Stipplin) 1:39 AM) [facility] [id number] 07:39:00 Test Item Value Reference Range Interpretation Comments Polychrom (test code = Moderate *ABN*(10/25/15 Polychrom) 1:39 AM) [facility] [id number] 07:39:00 Test Item Value Reference Range Interpretation Comments Plt Morph (test code = Normal (10/25/15 1:39 Plt Morph) AM) [facility] [id number] 07:39:00 Test Item Value Reference Range Interpretation Comments Ca Norm WB (test code = Ca Norm WB) 1.08 1.05-1.25 [facility] [id number] 07:39:00 Test Item Value Reference Range Interpretation Comments Ca Ion WB (test code = Ca Ion WB) 1.05 1.05-1.25 [facility]2016-02-10 14:17:00 Test Item Value Reference Range Interpretation Comments Lactic Acid Lvl (test code = Lactic 1.0 0.5-2.2 Acid Lvl) [facility]2016-02-10 10:16:00 Test Item Value Reference Range Interpretation Comments Phosphorus (test code = Phosphorus) 3.7 2.5-4.5 [facility]2016-02-10 10:16:00 Test Item Value Reference Range Interpretation Comments Magnesium Lvl (test code = Magnesium 1.7 1.8-2.4 Lvl) [facility] [id number] 10:16:00 Test Item Value Reference Range Interpretation Comments INR (test code = INR) 1.18 0.85-1.17 [facility] [id number] 10:16:00 Test Item Value Reference Range Interpretation Comments PT (test code = PT) 15.3 s 12.0-14.7 [facility] [id number] 10:16:00 Test Item Value Reference Range Interpretation Comments PTT (test code = PTT) 27.8 s 22.9-35.8 [facility] [id number] 10:16:00 Test Item Value Reference Range Interpretation Comments Ca Norm WB (test code = Ca Norm WB) 1.08 1.05-1.25 [facility]2016-02-10 10:16:00 Test Item Value Reference Range Interpretation Comments Ca Ion WB (test code = Ca Ion WB) 1.08 1.05-1.25 [facility] [id number] 04:44:00 Test Item Value Reference Range Interpretation Comments RBC product (test code Product available = RBC product) (10/22/15 10:44 PM) [facility] [id number] 03:04:00 Test Item Value Reference Range Interpretation Comments Antibody Scrn (test Negative (10/22/15 9:04 code = Antibody Scrn) PM) [facility] [id number] 03:04:00 Test Item Value Reference Range Interpretation Comments ABO/Rh (test code = ABO/Rh) O [facility] [id number] 20:58:00 Test Item Value Reference Range Interpretation Comments UA Urobilinogen (test code = UA no gt 0.1-1.0 Urobilinogen) [facility] [id number] 20:58:00 Test Item Value Reference Range Interpretation Comments UA WBC (test code = 1 See_Comment [Automa dewey message] The UA WBC) system which ge nerated this result transmit dewey reference range : <=5. The reference range was not used to interpr et this result as deyvi l/abnormal. [facility] [id number] 20:58:00 Test Item Value Reference Range Interpretation Comments UA Leuk Est (test Negative (10/22/15 2:58 code = UA Leuk Est) PM) [facility] [id number] 20:58:00 Test Item Value Reference Range Interpretation Comments UA Blood (test code = Negative (10/22/15 2:58 UA Blood) PM) [facility] [id number] 20:58:00 Test Item Value Reference Range Interpretation Comments UA Bili (test code = Negative *NA*(10/22/15 UA Bili) 2:58 PM) [facility] [id number] 20:58:00 Test Item Value Reference Range Interpretation Comments UA Sq Epi (test code = UA Sq Epi) None Seen [facility] [id number] 20:58:00 Test Item Value Reference Range Interpretation Comments UA Color (test code = Light Yellow UA Color) *NA*(10/22/15 2:58 PM) [facility] [id number] 20:58:00 Test Item Value Reference Range Interpretation Comments UA Spec Grav (test code = UA Spec Grav) 1.009 [facility] [id number] 20:58:00 Test Item Value Reference Range Interpretation Comments UA Turbidity (test code = Clear (10/22/15 2:58 UA Turbidity) PM) [facility] [id number] 20:58:00 Test Item Value Reference Range Interpretation Comments UA pH (test code = UA pH) 7.0 5.0-8.0 [facility] [id number] 20:58:00 Test Item Value Reference Range Interpretation Comments UA Glucose (test code = UA Glucose) 50 mg/dL [facility] AND [id number] 20:58:00 Test Item Value Reference Range Interpretation Comments UA Protein (test code = UA Negative mg/dL Protein) [facility] AND [id number] 20:58:00 Test Item Value Reference Range Interpretation Comments UA Ketones (test code = UA Negative mg/dL Ketones) [facility] AND [id number] 20:58:00 Test Item Value Reference Range Interpretation Comments UA Nitrite (test code Negative (10/22/15 2:58 = UA Nitrite) PM) [facility] [id number] 19:20:00 Test Item Value Reference Range Interpretation Comments MRSA by PCR (test Negative (10/22/15 1:20 code = MRSA by PCR) PM) [facility] [id number] 19:20:00 Test Item Value Reference Range Interpretation Comments Ammonia (test code = Ammonia) 32.0 [facility] [id number] 19:20:00 Test Item Value Reference Range Interpretation Comments Lipase Lvl (test code = Lipase Lvl) 160 73-393 [facility] [id number] 19:20:00 Test Item Value Reference Range Interpretation Comments Lactic Acid Lvl (test code = Lactic 0.9 0.5-2.2 Acid Lvl) [facility] [id number] 19:20:00 Test Item Value Reference Range Interpretation Comments Globulin (test code = Globulin) 2.2 2.0-4.0 [facility] [id number] 19:20:00 Test Item Value Reference Range Interpretation Comments A/G Ratio (test code = A/G Ratio) 1.0 0.7-1.6 [facility] [id number] 19:20:00 Test Item Value Reference Range Interpretation Comments ALANINE AMINOTRANSFERASE 16 See_Comment [A utomated message] (test code = ALANINE The sys tem which AMINOTRANSFERASE) generated this result transmitted ref erence range: <=65. Th e reference range was not used to int erpret this result as normal/abnormal . [facility] [id number] 19:20:00 Test Item Value Reference Range Interpretation Comments Bili Total (test code = Bili Total) 0.4 0.2-1.3 [facility]2016-02-08 19:20:00 Test Item Value Reference Range Interpretation Comments Alk Phos (test code = Alk Phos) 42 39-136 [facility]2016-02-08 19:20:00 Test Item Value Reference Range Interpretation Comments Bili Direct (test code 0.1 See_Comment [Aut omated message] The = Bili Direct) system which generated this result tra nsmitted reference range : <=0.3. The reference r kemar was not used to int erpret this result as deyvi l/abnormal. [facility]2016-02-08 19:20:00 Test Item Value Reference Range Interpretation Comments Total Protein (test code = Total 4.3 6.4-8.4 Protein) [facility]2016-02-08 19:20:00 Test Item Value Reference Range Interpretation Comments Albumin Lvl (test code = Albumin Lvl) 2.1 3.5-5.0 [facility]2016-02-08 19:20:00 Test Item Value Reference Range Interpretation Comments ASPARTATE TRANSAMINASE 19 See_Comment [Aut omated message] (test code = ASPARTATE The s ystem which TRANSAMINASE) generated this result transmitted ref erence range: <=37. Th e reference range was not used to interpr et this result as normal/abnormal . [facility]2016-02-08 19:20:00 Test Item Value Reference Range Interpretation Comments Bili Indirect (test 0.3 See_Comment [Automa dewey message] The code = Bili Indirect) system which generated this result tra nsmitted reference range : <=1.0. The reference r kemar was not used to int erpret this result as normal/abnormal . [id number] 19:20:00 Test Item Value Reference Range Interpretation Comments Cortisol (test code = Cortisol) 3.4 [facility] [id number] 19:20:00 Test Item Value Reference Range Interpretation Comments Hgb A1C (test code = Hgb A1C) <3.5 % [facility]
[2022-09-29] MEDS ORDERED: ONDANSETRON 4 MG/2 ML VIAL ONE (14:10)
[2022-09-29] MEDS ORDERED: MORPHINE 4 MG/ML SYR ONE (14:10)
[2022-09-29] MEDS ORDERED: NA CHLORIDE 0.9% 1,000 ML ONE ×2 (14:10→16:04)
[2022-09-29 14:34] LABS: Hematocrit 38.6 % (36.0-45.0); MCV 95.2 fL (80-100); RBC Red Blood Cell Count 4.06 M/uL (3.86-4.86)
[2022-09-29 14:35] LABS: Absolute Lymphocytes (CBC) 1.7 K/uL (0.7-4.9); Lymphocytes % 16.9 % (15.3-44.8); MPV 7.2 fL (7.6-11.3)
[2022-09-29 14:54] LABS: Urine Blood Negative (Negative); Urine Glucose Negative (Negative); Urine Protein 1+ (Negative); Urine Specific Gravity >=1.030 (1.005-1.030)
[2022-09-29 14:57] LABS: Albumin 3.3 g/dL (3.4-5.0); Bilirubin Total 0.3 mg/dL (0.2-1.0); Magnesium 2.2 mg/dL (1.6-2.4); Protein, Total 7.4 g/dL (6.4-8.2)
[2022-09-29 15:08] LABS: Urine Bacteria <20 /HPF (<20); Urine Mucus 2+ /HPF (None Seen); Urine RBC <5 /HPF (None Seen)
--- NOTE | 2022-09-29 15:24 | RAD REPORT ---
EXAM DESCRIPTION: CTAbdomen Pelvis W Contrast - 09/29/2022 3:11 pm CLINICAL HISTORY: Abdominal pain. Abdominal pain, post-op COMPARISON: Abdomen Pelvis W Contrast dated 06/30/2022; Abdomen Pelvis W Contrast dated 9; CT ABD PELVIS W CONTRAST dated 03/26/2013; CT ABD PELVIS W CONTRAST dated 04/18/2009 TECHNIQUE: Biphasic CT imaging of the abdomen and pelvis was performed with 100 ml non-ionic IV cont rast. All CT scans are performed using dose optimization technique as appropriate and may include automated exposure control or mA/KV adjustment according to patient size. FINDINGS: The lung bases are clear.Cholecystectomy clips. The liver, spleen, pancreas, adrenal glands and kidneys are within normal limits. Prominent aortoilia c atherosclerosis. No bowel obstruction, free air, free fluid or abscess. Significant rectosigmoid fecal retention. No evidence of significant lymphadenopathy. Moderate lumbar degenerative changes. IMPRESSION: No acute intra-abdominal or pelvic finding.
--- NOTE | 2022-09-29 15:57 | ER ---
Nurse's Notes [facility] Name: Rosina Odonnell Age: 87 yrs Sex: Female : 1935 Arrival Date: 09/29/2022 Time: 13:30 Bed 2 Private MD: Casey Kohler C Diagnosis: Dehydration Presentation: 09/29 13:38 Chief complaint: Patient states: i had gallbladder sx last Thursday with tamiko and i've jh5 gone downhill since the surgery; i feel like complete shit. Coronavirus screen: Vaccine status: Patient reports receiving the 2nd dose of the covid vaccine. Client denies travel out of the [place] in the last 14 days. Ebola Screen: Patient negative for fever greater than or equal to 101.5 degrees Fahrenheit, and additional compatible Ebola Virus Disease symptoms Patient denies exposure to infectious person. Patient denies travel to an Ebola-affected area in the 21 days before illness onset. Initial Sepsis Screen: Does the patient meet any 2 criteria? No. Patient's initial sepsis screen is negative. Does the patient have a suspected source of infection? No. Patient's initial sepsis screen is negative. Risk Assessment: Do you want to hurt yourself or someone else? Patient reports no desire to harm self or others. Onset of symptoms was September 14, 2022. 13:38 Method Of Arrival: Wheelchair [facility] 13:38 Acuity: [place] 3 jh5 Triage Assessment: 13:43 General: Appears uncomfortable, ill, slender, Behavior is calm, cooperative, jh5 appropriate for age. Pain: Complains of pain in abdomen. Historical: - Allergies: 13:43 Augmentin; [facility] 13:43 Sulfa (Sulfonamide Antibiotics); jh5 - PMHx: 13:43 Asthma; Seizure; Multiple Sclerosis; Hypertension; jh5 - PSHx: 13:43 sinus surgery; hysterectomy; EGD; gallbladder; jh5 - Immunization history:: Adult Immunizations up to date. - Social history:: Smoking status: Patient/guardian denies using tobacco, the patient reports quitting approximately 30 years ago. - Family history:: not pertinent. Screenin:[facility] ED Fall Risk Assessment (Adult) History of falling in the last 3 months, kc6 including since admission No falls in past 3 months (0 pts) Confusion or Disorientation No (0 pts) Intoxicated or Sedated No (0 pts) Impaired Gait No (0 pts) Mobility Assist Device Used Yes (1 pt) Altered Elimination No (0 pt) Score/Fall Risk Level 0 - 2 = Low Risk Oriented to surroundings, Maintained a safe environment, Educated pt \T\ family on fall prevention, incl call for assistance when getting out of bed, Assessed \T\ reinforced patient's understanding of fall precautions, Hourly rounding (assess needs \T\ fall precautionary measures) done. Abuse screen: Denies threats or abuse. Denies injuries from another. Nutritional screening: No deficits noted. Tuberculosis screening: No symptoms or risk factors identified. Assessment: 14:00 General: Appears in no apparent distress. comfortable, Behavior is calm, cooperative, kc6 appropriate for age. Pain: Complains of pain in abdomen Pain does not radiate. Pain currently is 10 out of 10 on a pain scale. Quality of pain is described as dull, Pain began gradually, Is continuous, Alleviated by nothing. Noted to be resistant to movement, Also complains of no other associated symptoms. Neuro: [place]az Agitation-Sedation Scale (RASS): 0 - Alert and Calm Level of Consciousness is awake, alert, obeys commands, Oriented to person, place, time, situation, Appropriate for age. Cardiovascular: Heart tones S1 S2 present Capillary refill < 3 seconds. Respiratory: Airway is patent Trachea midline Respiratory effort is even, unlabored, Respiratory pattern is regular, symmetrical, Breath sounds are clear bilaterally. GI: Abdomen is flat, non-distended, Bowel sounds present X 4 quads. Abd is soft X 4 quads Abdomen is tender to palpation X 4 quads. Reports nausea, decrease in appetite and fluid intake Patient currently denies diarrhea, vomiting. : No signs and/or symptoms were reported regarding the genitourinary system. EENT: No signs and/or symptoms were reported regarding the EENT system. Derm: No signs and/or symptoms reported regarding the dermatologic system. Skin is intact, Skin is pink, warm \T\ dry. Musculoskeletal: No signs and/or symptoms reported regarding the musculoskeletal system. Circulation, motion, and sensation intact. Capillary refill < 3 seconds, Range of motion: intact in all extremities. 15:00 Reassessment: Patient appears in no apparent distress at this time. No changes from kc6 previously documented assessment. Patient and/or family updated on plan of care and expected duration. Pain level reassessed. Patient is alert, oriented x 3, equal unlabored respirations, skin warm/dry/pink. 16:00 Reassessment: Patient appears in no apparent distress at this time. No changes from kc6 previously documented assessment. Patient and/or family updated on plan of care and expected duration. Pain level reassessed. Patient is alert, oriented x 3, equal unlabored respirations, skin warm/dry/pink. 16:29 Reassessment: attempted to call report to second floor. stated the room JUST got kc6 assigned and the nurse will call me back. Vital Signs: 13:38 Pulse 85; Resp 18; Temp 98.6; jh5 14:20 BP 108 / 70; Weight 45.36 kg (R); Height 5 ft. 6 in. (167.64 cm) (R); kc6 15:20 BP 141 / 76; Pulse 78; Resp 28 S; Pulse Ox 100% on R/A; kc6 16:20 BP 128 / 76; Pulse 73; Resp 20 S; Pulse Ox 93% on R/A; kc6 14:20 Body Mass Index 16.14 (45.36 kg, 167.64 cm) [facility] ED Course: 13:30 Patient arrived in ED. am2 13:30 Casey Kohler MD is Private Physician. am2 13:31 Theodore Ochoa MD is Attending Physician. rt 13:42 Triage completed. 5 13:43 Arm band placed on right wrist. 5 13:50 Sulma Wheeler RN is Primary Nurse. 6 14:33 Allergy band placed. Bed in low position. Call light in reach. Side rails up X2. Adult kc6 w/ patient. 15:13 CT Abd/Pelvis - IV Contrast Only In Process Unspecified. EDMS 15:57 Casey Kohler MD is Hospitalizing Provider. rt 16:08 SARS-COV-2 Antigen Rapid Sent. [facility] 16:28 No provider procedures requiring assistance completed. Patient admitted, IV remains in kc6 place. Administered Medications: 14:33 Drug: Zofran (Ondansetron) 4 mg Route: IVP; Site: right forearm; ld1 15:33 Follow up: Response: No adverse reaction; Nausea is decreased [facility] 14:34 Drug: NS 0.9% 1000 ml Route: IV; Rate: 1 bolus; Site: right forearm; ld1 15:34 Follow up: Response: No adverse reaction; IV Status: Completed infusion; IV Intake: kc6 1000ml 14:34 Drug: morphine 4 mg Route: IVP; Infused Over: 4 mins; Site: right forearm; ld1 15:33 Follow up: Response: No adverse reaction; Pain is decreased; RASS: Alert and Calm (0) kc6 16:08 Drug: NS 0.9% 1000 ml Route: IV; Rate: 100 ml/hr; Site: left forearm; kc6 16:30 Follow up: Response: No adverse reaction; IV Status: Infusion continued upon admission kc6 Medication: 16:29 VIS not applicable for this client. kc6 Intake: 15:34 IV: 1000ml; Total: 1000ml. kc6 Outcome: 15:57 Decision to Hospitalize by Provider. rt 16:28 Admitted to Med/surg accompanied by tech, via stretcher, room 232, with chart, Report kc6 called to MARIELLA Garcia 16:28 Condition: stable 16:28 Instructed on the need for admit. 17:21 Patient left the ED. kc6 Signatures: Dispatcher [employer] EDVianca Gallardo am2 Ewa Colon RN RN ld1 Citlaly Moore, RN RN jh5 Sulma Wheeler RN RN kc6 Theodore Ochoa MD MD rt Corrections: (The following items were deleted from the chart) 14:32 14:00 GI: Abdomen is flat, non-distended, Bowel sounds present X 4 quads. Abd is soft X kc6 4 quads Abdomen is tender to palpation X 4 quads. Reports nausea, Patient currently denies diarrhea, vomiting, kc6 16:53 16:28 Admitted to Med/surg accompanied by tech, via stretcher, room 232, with chart, [id number]
--- NOTE | 2022-09-29 15:57 | EDPHYS ---
Physician Documentation [facility] Name: Rosina Odonnell Age: 87 yrs Sex: Female : 1935 Arrival Date: 09/29/2022 Time: 13:30 Bed 2 Private MD: Casey Kohler C ED Physician Theodore Ochoa HPI: 09/29 14:34 This 87 yrs old Female presents to ER via Wheelchair with complaints of dehydration. rt 14:34 Onset: The symptoms/episode began/occurred 10 day(s) ago. Severity of symptoms: At rt their worst the symptoms were moderate. Patient presents to the ED with generalized weakness. The patient had a cholecystectomy 10 days ago. Since then, she has had abdominal pain, generalized, aching nature nonradiating as well as a nausea without vomiting. Patient has had difficulty keeping solids down, states that she has been drinking enough fluids. Patient was seen by her surgeon today who sent her to the ER for further evaluation, IV fluids. The patient denies other acute complaints at this time. Symptoms are moderate severity, no other aggravating or alleviating factors.. Historical: - Allergies: 13:43 Augmentin; jh5 13:43 Sulfa (Sulfonamide Antibiotics); jh5 - PMHx: 13:43 Asthma; Seizure; Multiple Sclerosis; Hypertension; jh5 - PSHx: 13:43 sinus surgery; hysterectomy; EGD; gallbladder; jh5 - Immunization history:: Adult Immunizations up to date. - Social history:: Smoking status: Patient/guardian denies using tobacco, the patient reports quitting approximately 30 years ago. - Family history:: not pertinent. ROS: 14:34 Constitutional: Negative for fever, chills, and weight loss, Eyes: Negative for injury, rt pain, redness, and discharge, ENT: Negative for injury, pain, and discharge, Cardiovascular: Negative for chest pain, palpitations, and edema, Respiratory: Negative for shortness of breath, cough, wheezing, and pleuritic chest pain, Back: Negative for injury and pain, : Negative for injury, bleeding, discharge, and swelling, MS/Extremity: Negative for injury and deformity, Skin: Negative for injury, rash, and discoloration, Neuro: Negative for headache, weakness, numbness, tingling, and seizure, Psych: Negative for depression, anxiety, suicide ideation, homicidal ideation, and hallucinations. 14:34 Abdomen/GI: Positive for abdominal pain, nausea. Exam: 14:34 Constitutional: This is a well developed, well nourished patient who is awake, alert, rt and in no acute distress. Head/Face: Normocephalic, atraumatic. Eyes: Pupils equal round and reactive to light, extra-ocular motions intact. Lids and lashes normal. Conjunctiva and sclera are non-icteric and not injected. Cornea within normal limits. Periorbital areas with no swelling, redness, or edema. Neck: Trachea midline, no thyromegaly or masses palpated, and no cervical lymphadenopathy. Supple, full range of motion without nuchal rigidity, or vertebral point tenderness. No Meningismus. Chest/axilla: Normal chest wall appearance and motion. Nontender with no deformity. No lesions are appreciated. Cardiovascular: Regular rate and rhythm with a normal S1 and S2. No gallops, murmurs, or rubs. Normal PMI, no JVD. No pulse deficits. Respiratory: Lungs have equal breath sounds bilaterally, clear to auscultation and percussion. No rales, rhonchi or wheezes noted. No increased work of breathing, no retractions or nasal flaring. Skin: Warm, dry with normal turgor. Normal color with no rashes, no lesions, and no evidence of cellulitis. MS/ Extremity: Pulses equal, no cyanosis. Neurovascular intact. Full, normal range of motion. Neuro: Awake and alert, GCS 15, oriented to person, place, time, and situation. Cranial nerves II-XII grossly intact. Motor strength 5/5 in all extremities. Sensory grossly intact. Cerebellar exam normal. Normal gait. Psych: Awake, alert, with orientation to person, place and time. Behavior, mood, and affect are within normal limits. 14:34 ENT: Dry mucous membranes. 14:34 ECG was reviewed by the Attending Physician. 14:34 Abdomen/GI: Mild abdominal tenderness diffusely without rebound, guarding, distention. Vital Signs: 13:38 Pulse 85; Resp 18; Temp 98.6; jh5 14:20 BP 108 / 70; Weight 45.36 kg (R); Height 5 ft. 6 in. (167.64 cm) (R); kc6 15:20 BP 141 / 76; Pulse 78; Resp 28 S; Pulse Ox 100% on R/A; kc6 16:20 BP 128 / 76; Pulse 73; Resp 20 S; Pulse Ox 93% on R/A; kc6 14:20 Body Mass Index 16.14 (45.36 kg, 167.64 cm) 6 MDM: 13:45 Patient medically screened. rt 15:57 Differential Diagnosis Dehydration, sepsis, postsurgical complication, retained rt gallbladder stone. Data reviewed: vital signs, nurses notes, old medical records, lab test result(s), EKG, radiologic studies. Consideration of Admission/Observation Patient was admitted/placed on observation. Management of patient was discussed with the following: Pcat Instructor: General surgeon, recommends admission for hydration. Primary Care Provider: Will admit to the hospital. I considered the following discharge prescriptions or medication management in the emergency department Medications were administered in the Emergency Department. See MAR. External Records Reviewed: Inpatient record: Reviewed op note, prior labs. Response to treatment: the patient's symptoms have markedly improved after treatment. 09/29 13:53 Order name: CBC with Diff; Complete Time: 14:52 rt 09/29 13:53 Order name: CMP; Complete Time: 15:26 rt 09/29 13:53 Order name: Magnesium; Complete Time: 15:26 rt 09/29 13:53 Order name: Lipase; Complete Time: 15:26 rt 09/29 13:53 Order name: UA MICROSCOPIC; Complete Time: 15:36 rt 09/29 13:55 Order name: Troponin High Sensitivity; Complete Time: 15:26 rt 09/29 13:53 Order name: CT Abd/Pelvis - IV Contrast Only; Complete Time: 15:26 rt 09/29 14:54 Order name: Urine Dipstick-Ancillary; Complete Time: 15:26 EDMS 09/29 15:37 Order name: Urine Culture EDFL 09/29 15:56 Order name: SARS-COV-2 Antigen Rapid bd 09/29 13:53 Order name: Urine Dipstick-Ancillary (obtain specimen); Complete Time: 14:57 rt 09/29 13:55 Order name: EKG; Complete Time: 13:56 rt 09/29 13:55 Order name: EKG - Nurse/Tech; Complete Time: 14:28 rt EC:34 Rate is 84 beats/min. Rhythm is regular, Normal Sinus Rhythm with No ectopy. QRS [place] rt is Normal. FL interval is normal. QRS interval is normal. QT interval is normal. No Q waves. Clinical impression: NSR w/ Non-specific ST/T Changes. Interpreted by me. Administered Medications: 14:33 Drug: Zofran (Ondansetron) 4 mg Route: IVP; Site: right forearm; ld1 15:33 Follow up: Response: No adverse reaction; Nausea is decreased kc6 14:34 Drug: NS 0.9% 1000 ml Route: IV; Rate: 1 bolus; Site: right forearm; ld1 15:34 Follow up: Response: No adverse reaction; IV Status: Completed infusion; IV Intake: kc6 1000ml 14:34 Drug: morphine 4 mg Route: IVP; Infused Over: 4 mins; Site: right forearm; ld1 15:33 Follow up: Response: No adverse reaction; Pain is decreased; RASS: Alert and Calm (0) kc6 16:08 Drug: NS 0.9% 1000 ml Route: IV; Rate: 100 ml/hr; Site: left forearm; kc6 16:30 Follow up: Response: No adverse reaction; IV Status: Infusion continued upon admission kc6 Disposition Summary: 09/29/22 15:57 Hospitalization Ordered Hospitalization Status: Observation rt Provider: Casey Kohler rt Location: Telemetry/[facility] [place] (observation) rt Condition: Stable rt Problem: new rt Symptoms: have improved rt Bed/Room Type: Standard rt Room Assignment: 232(09/29/22 16:26) dw Diagnosis - Dehydration rt Forms: - Medication Reconciliation Form rt - SBAR form rt Signatures: Dispatcher [employer] Louisa Larson RN RN dw Ewa Colon RN RN ld1 Citlaly Moore RN RN jh5 Sulma Wheeler RN RN kc6 Theodore Ochoa MD MD rt Corrections: (The following items were deleted from the chart) 16:26 15:57 rt dw
[2022-09-29 16:33] LABS: SARS-CoV-2 Antigen Rapid Res Negative (Negative)
[2022-09-29] MEDS ORDERED: ONDANSETRON 4 MG/2 ML VIAL IV PRN (17:07)
[2022-09-29] MEDS ORDERED: MORPHINE 2 MG/ML SYR IV PRN (17:07)
[2022-09-29] MEDS ORDERED: ALBUTEROL 2.5 MG/3 ML NEB SOL NEB PRN (17:07)
[2022-09-29 18:16] VITALS: BMI 16.1
[2022-09-29] MEDS ORDERED: DIPHENHYDRAMINE 25 MG TAB/CAP PO PRN (20:49)
[2022-09-29] MEDS ORDERED: ALPRAZOLAM 0.5 MG TABLET PO PRN (20:49)
[2022-09-29] MEDS ORDERED: HOME MED 1 EA UNK (Oxycodone Hcl/Acetaminophen [Oxycodon-Acetaminophen 7.5-300] Tablet) PO SCH (21:00)
[2022-09-29] MEDS: carvediloL 6.25 MG TAB PO SCH (21:00)
[2022-09-29] MEDS: ENOXAPARIN 30 MG/0.3 ML SQ SCH (21:45)
[2022-09-29] MEDS: MECLIZINE HCL 12.5 MG TAB PO SCH (21:45)
[2022-09-29] MEDS: levETIRAcetam 500 MG TAB PO SCH (21:46)
[2022-09-29] MEDS: CIPROFLOXACIN HCL 250 MG TAB PO SCH (21:46)
[2022-09-29] MEDS: NA CHLORIDE 0.9% 1,000 ML IV SCH (21:47)
[2022-09-30] MEDS: NA CHLORIDE 0.9% 1,000 ML IV SCH (05:29)
[2022-09-30] MEDS ORDERED: LEVOTHYROXINE SOD 0.05 MG TABLET PO SCH (07:00)
--- NOTE | 2022-09-30 07:37 | EKG ---
Test Date: 2022-09-29 Test Time: 14:14:05 Patent Legal Assistant: EVA MEASUREMENT RESULTS: Intervals: Rate: 84 DE: 160 QRSD: 88 QT: 372 QTc: 439 [place]: P: 72 DE: 160 QRS: 30 T: 64 INTERPRETIVE STATEMENTS: Normal sinus rhythm with sinus arrhythmia Right atrial enlargement Lateral infarct, age undetermined Possible Inferior infarct, age undetermined Abnormal ECG Compared to ECG 09/17/2022 14:02:34 Atrial abnormality now present Myocardial infarct finding still present Electronically Signed On 09-30-22 07:35:28 ENGINEERING PROJECT MANAGER by Tobias Lisa
[2022-09-30 08:21] LABS: Potassium 4.5 mmol/L (3.5-5.1)
[2022-09-30] MEDS: ENOXAPARIN 30 MG/0.3 ML SQ SCH (08:27)
[2022-09-30] MEDS: CIPROFLOXACIN HCL 250 MG TAB PO SCH (08:27)
[2022-09-30] MEDS: carvediloL 6.25 MG TAB PO SCH (08:27)
[2022-09-30] MEDS: levETIRAcetam 500 MG TAB PO SCH (08:28)
[2022-09-30] MEDS: MECLIZINE HCL 12.5 MG TAB PO SCH (08:29)
[2022-09-30] MEDS ORDERED: VALSARTAN 160 MG TAB PO SCH (09:00)
[2022-09-30] MEDS ORDERED: AMLODIPINE 5 MG TAB PO SCH (09:00)
[2022-09-30 10:37] VITALS: O2SAT 96
[2022-09-30 12:43] VITALS: BP 100/48; TEMP 98.5
--- NOTE | 2022-10-01 08:03 | SS ---
Date of Discharge: 09/30/2022 Chief Complaint: Feeling weak and dizzy. History Of Present Illness: This is an 87-year-old female patient, who recently had laparoscopic cho lecystectomy done about 10 to [address] Sherwood. Since the surgery, she has not returned back to her previous level of functioning and she has had poor intake of food and liquids and has been fe eling weak, tired, dizzy. No vomiting. No diarrhea. No fever, chills, chest pain, shortness of yazmin ath. She presented to emergency room with these complaints, was noted to have volume depletion, and she was admitted to the hospital after she came into the emergency room. IV fluid hydration was star dewey and this morning when I saw her, she was feeling better. Denied any other specific complaints. Medications: List reviewed. Allergies: AUGMENTIN CAUSES ITCHING, SULFA CAUSES ITCHING. Review of Systems: Constitutional: As mentioned above. 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 All other systems reviewed and negative. Past Medical History: Significant for seizure disorder, multiple sclerosis, hypothyroidism, asthma, hypertension, hyperlipidemia which is mixed, mitral stenosis, diverticulosis, osteoarthritis at multi ple sites, anemia, depression, insomnia. Past Surgical History: Sinus surgery, removal of breast tumor from the left breast which was benign, hysterectomy, shoulder surgery on the left shoulder and right elbow surgery and recent laparoscopic cholecystectomy. Family History: Father , had subdural hematoma and mother had hypertension. Social History: Negative for smoking and negative for alcohol use. Physical Examination: Vital Signs: Height 5 feet 6 inches, weight 100 pounds, temperature , pulse , re spiratory rate , blood pressure , oxygen saturation . General: Awake, alert, oriented, not in distress. HEENT: Head atraumatic, normocephalic. Conjunctivae nonerythematous. Sclerae white. Mouth, no thr ush or edema noted. Ears/Nose, no mass, lesion, discharge noted. Neck: Supple. No JVD, lymph nodes, bruit, thyromegaly noted. Lungs: Bilateral good equal air entry. Clear to auscultation. No rhonchi. No rales. Heart: Normal heart sounds, no murmur or gallop. Abdomen: Soft, bowel sounds normal. No guarding, rigidity, tenderness, mass, hepatosplenomegaly, dis tention, or bruit noted. Extremities: No leg edema. No calf tenderness. Skin: No rash, ulcer, cellulitis. Lymphatics: No lymph node enlargement in neck, supraclavicular, infraclavicular region. Neuro: No focal neurological deficit. Chest: Unremarkable. External Genitalia: Deferred. Rectal: Deferred. Laboratory Data: Yesterday when she came into ER; white count 10.3, hemoglobin 12.9, platelets 340. Sodium 140, potassium 4, chloride 108, bicarb 22, BUN 45, creatinine 1.09, glucose 195. Liver funct ion tests unremarkable. Troponin 14.8, lipase 117. Urinalysis positive for nitrite, 1+ esterase. C AT scan of the abdomen and pelvis otherwise was negative for any acute changes. Hospital Course: After the patient was evaluated in the emergency room, she was admitted to the hosp ital. IV fluid was started. Her home medications were continued per order. The patient was started on oral Cipro 250 mg 2 times a day for urinary tract infection. This morning when I saw her, she wa s feeling fine. Blood work this morning shows improvement in her renal function and patient was disc harged to go home in stable condition with following discharge medications and instructions. 1.Continue all prior home medications. 2.Drink 50-ounce water daily and a bottle of Gatorade or Pedialyte daily. 3.Follow up at my office next week. 4.Cipro 250 mg, take 1 tablet 2 times a day for 5 days and we will send prescription to her pharmacy from office. Final Diagnoses: 1.Volume depletion. 2.Urinary tract infection. 3.Hypothyroidism. 4.Mild persistent asthma. 5.Hypertension. 6.Mixed hyperlipidemia. 7.Mitral stenosis. 8.Multiple sclerosis. 9.Seizure disorder. 10.Diverticulosis. 11.Depression. 12.Insomnia. ANH/MODL Voice ID: [id number] Report ID: [id number]
== END 2022-09-30 13:02 | disposition home or self-care (01) ==
LOC: ER 13:28 → ERHOLD 15:50 → 2ND 17:01
PROVIDERS: ADMIT Internal Medicine; ATTEND Internal Medicine
DX: E86.9 Volume depletion, unspecified (principal); N39.0 Urinary tract infection, site not specified; E03.9 Hypothyroidism, unspecified; J45.909 Unspecified asthma, uncomplicated; G35 Multiple sclerosis; E78.2 Mixed hyperlipidemia; I10 Essential (primary) hypertension; I05.0 Rheumatic mitral stenosis; R56.9 Unspecified convulsions; K57.90 Diverticulosis of intestine, part unspecified, without perforation or abscess without bleeding; F32.A Depression, unspecified; G47.00 Insomnia, unspecified; Z88.1 Allergy status to other antibiotic agents; Z88.2 Allergy status to sulfonamides; Z20.822 Contact with and (suspected) exposure to COVID-19
CPT/HCPCS: 93005; 87088; 85025; 87086; 80048; 36415; 83735; 84484; 83690; 80053; 74177; 87811; Q9967; J8597 ×2; J1650 ×2; J7030 ×3; J2405; 81003; 81015; 87077; 87186; 96361; 96374; 96375; 99285; G0378

== ENCOUNTER 2022-10-11 15:27 | Emergency (ER) | payer OTHER ==
--- OUTSIDE RECORDS SUMMARY | 2022-10-11 15:36 | XMS REPORT | Continuity of Care Document ---
:1935 Author Organization [facility] t Address [address] [place] [address] Care Team Providers Name Role Phone ANTONY ANNALISA Nielsen Primary Care Physician Unavailable Mike Garza MD Attending Clinician MIKE GARZA Attending Clinician Unavailable Kayla HAIRSTON, Chen Cotto Attending Clinician MAYI SIMONS Attending Clinician Unavailable Lillian WOLFF, Dakotah Peña Attending Clinician Unavailable Avain Goodwin Attending Clinician Sree Ramos MD Attending Clinician Diego Herrera MD Attending Clinician Torrey Dunn MD Attending Clinician Avani ORDONEZ Attending Clinician Unavailable KEREN MARES Attending Clinician Unavailable Keren Mares DO Attending Clinician MIKE GARZA Admitting Clinician Unavailable Shaun HAIRSTON, Torrey Donnelly Admitting Clinician KEREN MARES Admitting Clinician Unavailable Payers Payer Name Policy Type Policy Number Effective Date Expiration Date Liliane HENDERSON MEDICARE [id number] 2017 2021 ERS 00:00:00 00:00:00 Problems Condition [...] FX 00:00: Valdez downey Active 00 02/03/2018 [facility] Common Common Problem Active 2022-04-14 Edinson david peroneal peroneal 3-16 02:52:31 l nerve nerve 00:00: Raymond lesion lesion 00 (disorder) (disorder) Active 11/27/2016 Problem 04/14/2022 [facility] GI BLEED, GI BLEED, Diagnosis Active 2015-11-01 Memoria ANEMIA ANEMIA 2-08 21:55:00 l Active 00:00: Raymond 10/22/2015 00 [place] Localizati Localizat Problem Active 2022-04-14 Memoria on-related ion-relate 1-14 02:52:31 l symptomati d 00:00: Valdez nielsen epilepsy symptomati 00 (disorder) c epilepsy (disorder) Active 09/27/2015 Problem 04/14/2022 [facility] No known No known Disease Unive rs active active ity of problems problems [facility] Anemia Anemia Problem Resolve 2022-04-14 Mem oria (disorder) (disorder) d 02:52:31 l Resolved [place] Problem 04/14/2022 [facility] Anxiety Anxiety Problem Resolve 2022-04-14 M emoria (finding) (finding) d 02:52:31 l Resolved [place] Problem 04/14/2022 [facility] Asthma Asthma Problem Resolve 2022-04-14 Mem oria (disorder) (disorder) d 02:52:31 l Resolved [place] Problem 04/14/2022 [facility] Depressive Depressiv Problem Resolve 2022-04-14 Memoria disorder e disorder d 02:52:31 l (disorder) (disorder) He rmann Resolved Problem 04/14/2022 [facility] Hypertensi Hypertens Problem Resolve 2022-04-14 Memoria ve cely d 02:52:31 l disorder, disorder, Herm lori systemic systemic arterial arterial (disorder) (disorder) Resolved Problem 04/14/2022 [facility] 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 02:52:31 l (disorder) (disorder) He rmann Resolved Problem 04/14/2022 [facility] 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 02:52:31 l (disorder) (disorder) He rmann Resolved Problem 04/14/2022 [facility] Seizure Seizure Problem Resolve 2022-04-14 M emoria (finding) (finding) d 02:52:31 l Resolved [place] Problem 04/14/2022 [facility] Vertigo Vertigo Problem Active 2022-04-14 M emoria (finding) (finding) 02:52:31 l Active [place] Problem 04/14/2022 [facility] Migraine Migraine Problem Active 2022-04-14 Memoria (disorder) (disorder) 02:52:31 l Active [place] Problem 04/14/2022 [facility] GASTROINTE GASTROINT Diagnosis Active 2015-11-01 Memoria STINAL ESTINAL 21:55:00 l HEMORRHAGE HEMORRHAGE He rmann , , UNSPECIFIE UNSPECIFIE D D Active [facility] ANEMIA, ANEMIA, Diagnosis Active 2015-11-01 Memoria UNSPECIFIE UNSPECIFIE 21:55:00 l D D Active Raymond [facility] UNSP UNSP Diagnosis Active 2018-02-09 Mem oria FRACTURE FRACTURE 19:37:00 l OF SHAFT OF SHAFT Valdez downey OF OF HUMERUS, HUMERUS, UNSP UNSP Active [facility] Exacerbati Exacerbat Problem Resolve 2022-04-14 2022-04-14 Memoria on of ion of d 5-12 02:52:31 02:52:31 l multiple multiple 00:00: Valdez downey sclerosis sclerosis 00 (disorder) (disorder) Resolved 01/23/2017 Problem 04/14/2022 [facility] Allergies, Adverse Reactions, Alerts Allergy Allergy Status Severity Reaction(s) Onset Inactive Treating Comm ents Source Name Type Date Date Clinician AMOXICIL Allergy Active Itching 2021-[address] [facility] [address] [facility] 1-17 [facility] Medical ATE 00 Center Amoxicil Propensi Active Itching 2021-09 [facility] to 1[facility]17 [facility] Clavulan adverse 00:00: Medical ate reaction 00 Center s AMOXICIL DRUG Active ITCHING Univers CHAPARRITA-POT 7-24 ity of CLAVULAN 00:00: [place] ATE 00 Medical Branch PENICILL Drug Active ITCHING Univers INS Class 7-24 ity of 00:00: [place] 00 Medical Branch SULFA Drug Active ITCHING Univers (SULFONA Class 7-24 ity of MIDE 00:00: [place] ANTIBIOT 00 Medical ICS) Branch Amoxicil Propensi Active Itching Unive rs chaparrita-Pot ty to 7-24 ity of Clavulan adverse 00:00: [place] ate reaction 00 Medical s Branch Penicill Propensi Active Itching Unive rs ins ty to 7-24 ity of adverse 00:00: [place] reaction 00 Medical s Branch Sulfa Propensi Active Itching Univers (Sulfona ty to 7-24 ity of mide adverse 00:00: [place] Antibiot reaction 00 Medica l ics) s Branch PENICILL Allergy Active Itching [facility] INS 7-24 [facility] 00:00: Medical 00 Center SULFA Allergy Active Itching [facility] (SULFONA 7-24 [facility] MIDE 00:00: Medical ANTIBIOT 00 Center ICS) Sulfa Drug Active Itching [facility] (Sulfona Allergy 7-24 [facility] mide 00:00: Medical Antibiot 00 Center ics) Penicill Drug Active Itching [facility] ins Allergy 7-24 [facility] 00:00: Medical 00 Center Augmenti Augmenti Active Memori a n n l [place] sulfa sulfa Active Memoria drugs drugs l [place] Social History Social Habit Start Date Stop Date Quantity Comments Source Exposure to Yes University of SARS-CoV-2 [place] [facility] (event) Branch History SDOH [facility] Alcohol Std Medical Cente r Drinks History SDOH [facility] Alcohol Binge Medical Marcus ter History SDOH [facility] Alcohol Comment Medical C enter Alcohol intake 2022-08-06 2022-08-06 Ex-drinker [facility] 00:00:00 00:00:00 (finding) [facility] Tobacco use and 2022-07-31 2022-07-[address] [facility] exposure 00:00:00 00:00:00 [facility] Center History SDOH 2022-07-31 2022-07-[address] [facility] Alcohol Frequency 00:00:00 00:00:00 [facility] Tobacco Comment 2022-07-31 2022-07-31 quit a long time [facility] 00:00:00 00:00:00 ago [facility] Center Social History 2015-10-22 2015-10-22 [facility] lexi 19:43:29 19:43:29 Sex Assigned At [address] [facility] 00:00:00 00:00:00 [facility] Center Smoking Status Start Date Stop Date Source Former smoker 2022-07-31 00:00:00 2022-07-31 00:00:[address] [facility] Never smoker [facility] Medical Branch Medications Ordered Filled Start Stop [...] MG 17:27: mouth Medical tablet 45 daily. [place] hyoscyamine 2021-09 Yes .125mg Take 0.125 [facility] [...] every Center night as needed for Anxiety. levETIRAcet 2021-09 Yes 750mg Q.5D Take 750 [...] Take [address] (ROXICODONE 1-22 by mouth Luke s ) 15 MG 17:27: every 4 Medical immediate 45 (four) Center release hours as tablet needed for Pain . pregabalin 2021-09 Yes 50mg QD Take [address] (LYRICA) 50 1-22 by mouth Luke s MG capsule 17:27: daily. Medic al 45 Center meclizine 2021-09 Yes 25mg Take [address] (ANTIVERT) 1-22 by mouth 3 Papito es 25 MG 17:27: (three) Medical tablet 45 times Center daily as needed. amLODIPine 2021-09 Yes 10mg QD Take [address] (NORVASC) 1-22 by mouth [facility] 10 MG 17:27: daily. Medical tablet 45 Center valsartan 2021-09 Yes 160mg QD Take [address] (DIOVAN) 1-22 mg by [facility]ukes 160 MG 17:27: mouth Medical tablet 45 daily. Center hyoscyamine 2021-09 Yes .125mg Take 0.[address] (ANASPAZ,LE 1-22 mg by [facility]ukes VSIN) 0.125 17:27: mouth Medic al mg tablet 45 every 4 Center (four) hours as needed. sucralfate 2021-09 Yes 1g Q.25D Take [address] (CARAFATE) -22 by mouth 4 Papito es 1 gram 17:27: (four) Medical tablet 45 times Center daily. mometasone 2021-09 Yes 2{spray [address] (NASONEX) -22 } by Nasal [facility] 50 17:27: route [...] night as needed for Anxiety. traZODone 2021-09 No 150mg QD Take [address] (DESYREL) 1-22 11-22 mg by [facility]ukes 150 MG 13:42: 00:00 mouth Medical tablet 59 :00 nightly. Center traZODone 2021-09- No 150mg QD Take [address] (DESYREL) 1-22 11-22 mg by [facility] 150 MG 13:42: 00:00 mouth Medical tablet 59 :00 nightly. Center Reyvow 50 Yes 50 mg = 1 Mem oria mg oral 7-29 tab, PO, l tablet 18:54: PRN, PRN [place] 00 migraine, # 8 tab, 2 Refill(s), Pharmacy: [facility] #[id number], 160.02, cm, 04/11/22 13:42:00 CDT, Height, 68.864, kg, 04/11/22 13:42:00 CDT, Weight lasmiditan Yes 50 mg = 1 Me moria 50 MG Oral 3-16 tab, PO, l Tablet 21:19: PRN, PRN [place] [] 00 migraine, # 8 tab, 2 Refill(s), Pharmacy: [facility] #[id number], 162.56, cm, 11/27/21 15:49:00 CDT, Height, 50.455, kg, 11/27/21 15:49:00 CDT, Weight Levetiracet Yes = 1 tab, Me moria am 750 MG 3-16 PO, BID, # l Oral Tablet 21:19: 60 tab, 6 H ermann 00 Refill(s), Pharmacy: [facility] #[id number], 162.56, cm, 11/27/21 15:49:00 CDT, Height, 50.455, [...] Use 1 Uni vers (NASONEX) 8-05 } [place] in ity of 50 02:23: each [place] [...] ity o f 30 mg 02:23: daily. [place] capsule 47 Indication Medica l s: Take 60 Branch mg every AM and 30 mg every PM mometasone Yes 1{spray Use 1 Uni vers (NASONEX) 8-05 } [place] in ity of 50 02:23: each [place] mcg/actuati 47 nostril as Me dical on nasal needed. Branch spray levETIRAcet Yes 750mg Take 750 U nivers am (KEPPRA) 8-05 mg by ity of 750 mg 02:23: mouth 2 [place] tablet 47 (two) Medical times Branch daily. montelukast 2020- No 10mg Take 10 mg Univers (SINGULAIR) 04-1704 by mouth ity of 10 mg 16:21: 00:00 daily. [place] tablet 48 :00 Medical Branch QUEtiapine 2020- No 25mg Take 25 [...] Take 1 Tab Univers HCL (ZANTAC 04-17 08-04 by mouth ity of 75 ORAL) 16:21: [...] Take 50 mg Un chris (COZAAR) 50 04-17-04 by mouth ity of mg tablet 16:21: 00:00 daily. [place] 48 :00 [facility] pregabalin Yes 50mg 50 mg, Unive rs (LYRICA) 04-16 Oral, QPM, ity o f capsule 50 22:00: First dose [place] mg 00 on [facility] 04/16/21 at Branch 1700, Until Discontinu ed, Routine proMETHazin No 12.5mg 12.5 mg, Univers e 04-16 08-03 IV ity of (PHENERGAN) 20:15: 21:05 Piggyback, [place] 12.5 mg in 00 :00 ONCE NOW, Medi gina NaCl 0.9% 1 dose, Branch (NS) 50 mL [facility] 04/16/21 IV at 1515, piggyback Routine famotidine Yes 20mg 20 mg, Unive rs (PEPCID AC) 04-16 Oral, BID, it y of tablet 20 19:15: First dose [place] mg 00 (after Medical last Branch modificati on) on Thu04/16/21 at 1415, Until Discontinu ed enoxaparin Yes 40mg 40 mg, Unive rs (LOVENOX) 04-16 Subcutaneo ity of injection 15:30: us, Q24H, Fabiano as 40 mg 00 First dose Medical on [facility] 04/16/21 at 1030, Until Discontinu ed, Routine losartan Yes 50mg 50 mg, Univers (COZAAR) 04-16 Oral, ity of tablet 50 14:00: DAILY, [place] mg 00 First dose Medical on [facility] 04/16/21 at 0900, Until Discontinu ed, Routine polyethylen Yes 17g 17 g, Unive rs e glycol 04-16 Oral, ity of 3350 powder 14:00: DAILY, [place] 17 g 00 First dose Medical on [facility] 04/16/21 at 0900, Until Discontinu ed, Routine levETIRAcet Yes 750mg 750 mg, Un chris am (KEPPRA) 04-16 Oral, BID, it y of tablet 750 13:00: First dose [place] mg 00 on [facility] 04/16/21 at Branch 0800, Until Discontinu ed, Routine levothyroxi Yes 125ug 125 mcg, U nivers ne 04-16 Oral, ity of (SYNTHROID) 11:00: QAM-0600, [place] tablet 125 00 First dose Med ical mcg on [facility] 04/16/21 at 0600, Until Discontinu ed, Routine albuterol Yes 2{puff} 2 Puff, Un chris (VENTOLIN) 04-16 Inhalation ity of inhaler 2 03:47: , Q6HPRN, Fabiano as Puff 29 Starting Medical [facility] 04/15/21 Branch at 2247, Until Discontinu ed, [...] Starting Medi gina tablet 1 Mon 04/15/21 Branc h tablet at 2246, Until 04/17/21 at 2245, Routine, Pain (scale 4-6) iopamidol 2020- No [id number] 100mL 100 mL, Univers (ISOVUE 04-16 0803 Intravenou ity o f 370-500 mL) 00:00: 00:00 s, ONCE, 1 [place] injection 00 :00 dose, Mon Medic al 100 mL 04/15/21 at Branch 1900, Routine methocarbam Yes 0 Memori a ol 750 mg 7-16 Refill(s) l oral tablet 18:51: Valdez n 00 Levetiracet Yes See Memori a am 750 MG 3-09 Instructio l Oral Tablet 19:22: ns, TAKE 1 [place] 00 TABLET BY MOUTH TWICE DAILY, # 60 tab, 1 Refill(s), Pharmacy: [facility] #[id number], 162.56, cm, 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, 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, 50, kg, 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, Weight Levetiracet No See Memori a am 750 MG 3-01 Instructio l Oral Tablet 22:57: ns, TAKE 1 [place] 00 TABLET BY MOUTH TWICE DAILY, # 60 tab, 1 Refill(s), Pharmacy: [facility] #[id number], 162.56, cm, 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, 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, 50, kg, 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, Weight lasmiditan 2019-09 Yes 50 mg = 1 Me moria 50 MG Oral 1-12 tab, PO, l Tablet 20:30: PRN, PRN [place] [Reyvow] 00 migraine, # 8 tab, 2 Refill(s), Pharmacy: [facility] #[id number], 162.56, cm, 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, 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, 50, kg, 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, 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 Levetiracet 2019-09 Yes 750 mg = 1 Memoria am 750 MG 1-12 tab, PO, l Oral Tablet 20:30: BID, # 180 [place] 00 tab, 1 Refill(s), Pharmacy: [facility] #[id number], 162.56, cm, 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, 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, 50, kg, 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, 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 Reyvow 50 Yes 50 mg = 1 Mem oria mg oral 7-23 tab, PO, l tablet 19:10: PRN, PRN [place] 00 migraine, # 8 tab, 2 Refill(s), Pharmacy: [facility] #[id number], 162.56, cm, 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, 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, 50, kg, 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, 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 Levetiracet Yes See Memori a am 750 MG 3-30 Instructio l Oral Tablet 15:45: ns, # 480 H ermann 43 tab, TAKE 1 TABLET BY MOUTH TWICE DAILY, Pharmacy: [facility] #[id number] pregabalin Yes 100 mg = 1 M [...] Raymond Coated 00 Refill(s) Capsule [Cymbalta] carvedilol 2019-0 Yes 12.5 mg = Me moria 12.5 mg 5-10 1 tab, PO, l oral tablet 19:00: BID, # 180 [place] 00 tab, 0 Refill(s) Amlodipine Yes 5 mg = 1 Mem oria 5 MG Oral 5-10 tab, PO, l Tablet 19:00: Daily, # [place] [Norvasc] 00 30 tab, 0 Refill(s) Levetiracet No 750 mg = 1 Memoria am 750 MG 1-03 tab, PO, l Oral Tablet 19:00: BID, X 90 H ermann [Keppra] 00 day, # 180 tab, 1 Refill(s), Pharmacy: [place] [address] Levetiracet Yes 750 mg = 1 Memoria am 750 MG 5-26 tab, PO, l Oral Tablet 16:13: BID, 0 Herm lori [Keppra] 00 Refill(s) enoxaparin Yes 40 mg = Edinson david 40 mg/0.4 5-26 0.4 mL, l mL 16:07: SUB-Q, Raymond subcutaneou 00 [id number], s solution X 21 day, # 8 mL, 0 Refill(s), Pharmacy: [place] [address] Ergocalcife Yes 50,000 Edinson david rol [id number] - IntlUnit = l UNT Oral 16:07: 1 cap, PO, Her pearson Capsule 00 Q7D, # 5 cap, 0 Refill(s), Pharmacy: [place] [address] Calcium Yes 1 tab, Memoria Carbonate 5-26 CHEW, BID, l 1250 MG / 16:07: # 60 tab, Her pearson Cholecalcif 00 0 lucia 400 Refill(s), UNT Pharmacy: [facility] [place] [address] oxyCODONE 5 No Notes: Edinson david mg [...] OsCal-D Ergocalcife No Notes: Edinson david rol [id number] 5-25 (Same as: l UNT Oral 12:00: [...] a 5-25 (Same as l 05:00: Ancef) [place] 00 sugammadex No Notes: Memor ia 5-25 (Same as: l 02:43: [place]) Amitriptyli No Notes: Edinson david ne 5-25 (Same as: l 02:00: Elavil) [place] 00 Singulair No Notes: Memori a 5-25 (Same l 02:00: as:Singula [place] 00 ir) Ondansetron No 4 mg, Memor ia 5-25 Route: l 00:10: IVP, ONCE, [place] 00 Dosing Weight 51.818, kg, PRN Nausea & Vomiting, Start date: 02/04/18 19:10:00 CDT Hydralazine No 10 mg, Edinson david 5-25 Route: l 00:10: IVP, Raymond 00 Q20Min, Dosing Weight 51.818, kg, PRN [...] ONCE, Stop date: 02/04/18 18:16:00 CDT acetaminoph 2017-0 No Route: IV, Memoria en (ANES) 5-24 Drug form: l 10 mg 23:00: INJ, Start date: 02/04/18 18:00:00 CDT, Stop date: 02/04/18 19:00:00 CDT hydromorpho 2018-0 No Route: IV, Memoria ne (ANES) 5-24 Drug form: l 22:51: INJ, ONCE, Stop date: 02/04/18 17:51:00 CDT dexamethaso 2018-0 No Route: IV, Memoria ne (ANES) [...] Advair No 1 puff, Memoria Diskus 500 -24 Route: l mcg-50 mcg 14:00: INHALATION H [...] david formoterol -24 6411 l 13:00: Tania Andrade [address],[address] Inhale 2 puff(s) by mouth 2 times a day Carlos Chiu Mfr_ Don't use after_ Tramadol No Notes: Not Mem oria 5-24 to exceed l 11:00: 400mg/day. (Same As: Ultram) Acetaminoph No Notes: Edinson david en 325 MG / 5-24 (Same as: l Hydrocodone 10:55: [place] Cassidy nn Bitartrate 00 325/5) Do 5 MG Oral not exceed Tablet 4gm/day of [[place] acetaminop 5/325] hen. Ondansetron No Notes: Edinson david 5-24 (Same as: l 10:54: Zofran) MEDICATION WASTE Product Size: 4 mg Product Wasted: ___ mg Acetaminoph No Notes: Edinson david en 325 MG / 5-24 (Same as: l Hydrocodone 10:54: [place] Cassidy nn Bitartrate 00 325/5) Do 5 MG Oral not exceed Tablet 4gm/day of acetaminop hen. Acetaminoph No Notes: Do M emoria en 5-24 not exceed l 10:54: 4 gm/day. [place] 00 (Same as: Tylenol) Dilaudid No 1 mg, Memoria 5-24 Route: l 10:26: IVP, ONCE, Dosing Weight 47.001, kg, Priority: STAT, Start date: 02/04/18 5:26:00 CDT, Stop date: 02/04/18 5:26:00 CDT Fentanyl No 50 Memoria 5-24 microgram, l 10:21: Route: [place] 00 IVP, ONCE, Dosing Weight 47.001, kg, Priority: STAT, Start date: 02/04/18 5:21:00 CDT, Stop date: 02/04/18 5:21:00 CDT Fentanyl No 50 Memoria 5-24 microgram, l 09:57: Route: [place] 00 IVP, ONCE, Dosing Weight 47.001, kg, Priority: STAT, Start date: 02/04/18 4:57:00 CDT, Stop date: 02/04/18 4:57:00 CDT Ancef No Notes: Memoria 5-24 (Same As: l 08:51: Ancef, Kefzol) MEDICATION WASTE Product Size: 1000 mg Product Wasted: ___ mg Fentanyl No Notes: Memoria 5-24 (Same as: l 08:49: Sublimaze) [place] 00 Preservati ve free. ferrous Yes 325 [...] Rate: On l 0.9% 22:16: call for [place] (titrate) 00 use with 250 mL blood product administra tion, Dosing Weight 47.001, kg, Route: IV, Total Volume: 250, Start Date: 10/25/15 16:16:00, Duration: 30 day, Stop date: 11/24/15 16:15:00, Replace Every: 24 hr Sodium No 100 mL, Memoria Chloride 2-11 Rate: 10 l 0.154 20:40: ml/hr, [place] MEQ/ML 00 Infuse Injectable over: 10 Solution hr, Route: IVPB, Dosing Weight 47.001 kg, Total Volume: 100, Infuse at 8 mg / hr for 72 hours for GI bleeding, Start date: 10/25/15 14:40:00, Duration: 72 hr, Stop date: 10/28/15 14:39:00 Reglan No Notes: Memoria 2-11 (Same as: l 18:00: Reglan) [place] 00 Morphine No Notes: Memoria 2-11 (Same [...] david 2-11 (Same as: l 08:39: Neutra-Mary [place] 00 s) Each 1.25 gm pkt has 250mg phosphorou s. Mix w/2.5oz water and stir. Calcium No Notes: Memoria Gluconate 2-11 WASTE: F/P l 08:39: - Sink; E [place] - Municipal Trash Bin Magnesium No Notes: Memori a Oxide 2-11 (Same as: l 08:39: Mag-Ox [place] 00 400) Magnesium oxide 828lw=213w g elemental magnesium Dose=____m g magnesium oxide [...] 2-11 15 mL, l Sodium 08:39: Route: [place] Chloride 00 IVPB, PRN, 0.9% IV 250 [...] ne 2-11 (Same as: l 03:00: Elavil) [place] morphine No Notes: Memoria Sulfate 2-10 (Same l 21:27: as:MORPhin [place] 00 e Sulfate) Phenergan No Notes: Do [...] Memoria 2-10 Route: PO, l 15:00: Daily, [place] 00 Dosing Weight 47.001, kg, Start date: 10/24/15 9:00:00, Duration: 30 day, Stop date: 11/22/15 9:00:00 168 HR No Notes: Memoria Clonidine 2-10 Patch l 0.85793 14:44: delivers Valdez n MG/HR 00 0.1 mg/24 Transdermal hours; Patch Patch is applied weekly. "Remove old patch before applicatio n of new patch" (Same As: Catapres-T TS-1) Advair No Notes: Memoria Diskus 500 2-10 (Same as: l mcg-50 mcg 14:44: Advair) Herm lori inhalation powder Methocarbam No Notes: Edinson david ol 2-10 (Same l 13:56: as:Robaxin ) Meclizine No Notes: Memori a 2-10 (Same as: l 13:56: Antivert) Hyoscyamine No Notes: Edinson david 2-10 (Same as: l 13:56: Levsin) [place] 00 Take 30 min before meal Acetaminoph No Notes: Edinson david en 325 MG / 2-10 (Same as: l Hydrocodone 13:55: [place] Cassidy nn Bitartrate 00 325/5) Do 5 MG Oral not exceed Tablet 4gm/day of [[place] acetaminop 5/325] hen. Alprazolam No Notes: Memor ia 0.25 MG 2-10 With food l Oral Tablet 13:55: or milk Her pearson 00 (Same as: Xanax) Clonidine No Notes: Memori a Hydrochlori 2-10 (Same As: l de 0.2 MG 06:00: Catapres) Her pearson Oral Tablet 00 Amlodipine No Notes: Memor ia 2-10 (Same as: l 04:43: Norvasc) [place] Cardene 40 No Notes: Memor ia mg in NS 2-10 Same as: l 200 mL 04:42: Cardene [place] (Titrate.) 00 Concentrat IV 40 mg ion: (0.2 mg /1 ml ) Labetalol No Notes: Memori a 2-10 (Same as: l 04:42: Normodyne, [place] Trandate) Push over 2 minutes Give bolus over 2-3 minutes. Zofran No Notes: Memoria 2-10 (Same as: l 01:05: Zofran) [place] 00 MEDICATION WASTE Product Size: 4 mg Product Wasted: ___ mg Ondansetron No Notes: Edinson david 2-09 (Same as: l 23:49: Zofran) [place] 00 MEDICATION WASTE Product Size: 4 mg Product Wasted: ___ mg Sublimaze No Notes: Memori a 2-09 (Same as: l 23:30: Sublimaze) [place] 00 Preservati ve free. midazolam No Notes: Memori a 2-09 (Same as: l 23:30: Versed) [place] MEDICATION WASTE Product Size: 2 mg Product Wasted: ___ mg Thyroxine No Notes: Memori a 2-09 Take 1 l 12:30: hour [place] 00 before or 2 hours after meal; Enteral feeds may interefere with the absorption of this medication . (Same as:Levothr oid) Sublimaze No Notes: Memori a 2-09 (Same as: l 03:47: Sublimaze) [place] Preservati ve free. Saline No Notes: Memoria Flush 0.9% 2 (Same as: l 03:00: BD [place] Posiflush) sennosides, No Notes: Edinson david INTERMEDIATE 2- (Same as: l 03:00: Senokot) [place] Docusate No Notes: Memoria 2-09 (Same as: l 03:00: Colace) [place] (Do Not Crush) Singulair No Notes: Memori a 2-09 (Same l 03:00: as:Singula [place] 00 ir) budesonide- No Notes: Edinson david formoterol 2-08 (Same as: l 160 mcg-4.5 23:00: Symbicort) [place] mcg/inh 00 WASTE: inhalation Aerosol - aerosol Return to with Pharmacy adapter Seroquel No Notes: Memoria 2-08 (Same as: l 23:00: SEROquel) [place] 00 Levetiracet No Notes: Edinson david am 750 MG 2-08 Same as: l Oral Tablet 23:00: Keppra Herm lori [Keppra] 00 Cymbalta No Notes: Memoria 2-08 (Same as: l 23:00: Cymbalta) [place] 00 (Do Not Crush) Advair No 1 puff, Memoria Diskus 500 208 Route: l mcg-50 mcg 23:00: INHALATION H ermann inhalation 00 , Drug powder Form: AERO, Dosing Weight 47.001, kg, BID, Start date: 10/22/15 17:00:00, Duration: 30 day, Stop date: 11/21/15 9:00:00 ibandronic 2015- No 150 mg = 1 M emoria [...] 00 0 5 MG Oral Refill(s) Tablet [[place] 5/325] carvedilol Yes 3.125 mg = M emoria 3.125 mg 2-08 1 tab, PO, l oral tablet 19:51: BID, # 180 [place] 00 tab, 1 Refill(s) dexlansopra No 60 [...] 1 patch, Memoria Clonidine 2-08 TOP, l 0.99175 19:51: qWeek, # Valdez n MG/HR 00 12 patch, Transdermal 0 Patch Refill(s) quetiapine Yes 25 mg = 1 Me moria 25 MG Oral 2-08 tab, PO, l Tablet 19:51: BID, 0 [place] [Seroquel] 00 Refill(s) linaclotide Yes 145 Memori a 0.145 MG 2-08 microgram l Oral 19:51: = 1 cap, [place] Capsule 00 PO, Daily, [Linzess] 30 minutes [...] Anxiety, # 30 tab, 0 Refill(s) amitriptyli 2016-0 Yes 25 mg = 1 M emoria ne 25 mg 2-08 tab, PO, l oral tablet 19:49: Bedtime, # [place] 00 30 tab, 1 Refill(s) Advair Yes [...] as: l 18:55: BD [place] 00 Posiflush) levETIRAcet Yes 750mg Take 750 [...] mouth ity of mg tablet 21:44: daily. [place] [id number] [facility] Branch carvedilol Yes 6.25mg Take 6.25 [...] mouth ity of 75 ORAL) 21:44: daily. [place] 53 [facility] ALPRAZolam Yes .25mg Take [...] 1g Take 1 g Uni vers (CARAFATE) 7 by mouth ity o f 1 gram 21:44: as needed. [place] tablet 53 Medical Branch DULoxetine Yes 90mg Take 90 mg U nivers (CYMBALTA) 7-29 by mouth ity o f 30 mg 21:44: daily. [place] capsule 53 Indication Medica l s: Take 60 Branch mg every AM and 30 mg every PM mometasone Yes 1{spray Use 1 Uni vers (NASONEX) 04-11 } [place] in ity of 50 21:44: each [place] mcg/actuati 53 nostril as Me dical on nasal needed. Branch spray Dexlansopra Yes 60mg Take 60 mg Univers zole 7-29 by mouth ity of (DEXILANT) 21:44: daily. [place] 60 mg CpDM 53 Medical Branch ranitidine Yes 150mg Take 150 Un chris (ZANTAC) 7-29 mg by ity of 150 mg 21:44: mouth [place] tablet 53 daily. Medical Branch Vital Signs Vital Name Observation Time Observation Value Comments Source WEIGHT 2022-08-05 13:26:00 49.261 kg HEIGHT 2022-08-05 13:26:00 167.6 cm HEIGHT 2022-07-31 11:34:00 167.6 cm WEIGHT 2022-07-31 11:34:00 48.988 kg WEIGHT 2022-08-05 13:26:00 49.261 kg HEIGHT 2022-08-05 13:26:00 167.6 cm HEIGHT 2022-07-31 11:34:00 167.6 cm WEIGHT 2022-07-31 11:34:00 48.988 kg WEIGHT 2022-08-05 13:26:00 49.261 kg HEIGHT 2022-08-05 13:26:00 167.6 cm HEIGHT 2022-07-31 11:34:00 167.6 cm WEIGHT 2022-07-31 11:34:00 48.988 kg Systolic blood 2021-04-17 20:14:00 144 mm[Hg] Univer sity of pressure [facility] Diastolic blood 2021-04-17 20:14:00 86 mm[Hg] Unive rsity of pressure [facility] Heart rate 2021-04-17 20:14:00 63 /min Universi ty [facility] Body temperature 2021-04-17 20:14:00 36.61 Laxmi [facility] Respiratory rate 2021-04-17 20:14:00 18 /min [facility] Oxygen saturation in 2021-04-17 20:14:00 93 /min University of Arterial blood by [facility] Pulse oximetry Branch Body height 2021-04-16 03:29:00 167.6 cm Universi ty [facility] Body weight 2021-04-16 03:29:00 48.988 kg [facility] BMI 2021-04-16 03:29:00 17.43 kg/m2 [facility] Systolic blood 2021-04-17 20:14:00 144 mm[Hg] Univer sity of pressure [facility] Branch Diastolic blood 2021-04-17 20:14:00 86 mm[Hg] Unive rsity of pressure [facility] Heart rate 2021-04-17 20:14:00 63 /min Universi ty [facility] Body temperature 2021-04-17 20:14:00 36.61 Lamxi [facility] Respiratory rate 2021-04-17 20:14:00 18 /min [facility] Oxygen saturation in 2021-04-17 20:14:00 93 /min University of Arterial blood by [facility] Pulse oximetry Branch Body height 2021-04-16 03:29:00 167.6 cm Universi ty of [place] [facility] Body weight 2021-04-16 03:29:00 48.988 kg Universi ty of [place] [facility] BMI 2021-04-16 03:29:00 17.43 kg/m2 Universi ty of [place] [facility] Systolic blood 2020-03-02 00:23:00 135 mm[Hg] Univer sity of pressure [place] [facility] Diastolic blood 2020-03-02 00:23:00 67 mm[Hg] Unive rsity of pressure [place] [facility] Heart rate 2020-03-02 00:23:00 67 /min Universi ty [facility] [place] [facility] Respiratory rate 2020-03-02 00:23:00 20 /min Univ ersity of [place] [facility] Oxygen saturation in 2020-03-02 00:23:00 99 /min University of Arterial blood by [facility] Pulse oximetry Branch Body temperature 2020-03-01 21:25:00 36.33 Laxmi Univ ersity of [place] [facility] Body height 2020-03-01 21:25:00 165.1 cm Universi ty of [place] [facility] Body weight 2020-03-01 21:25:00 46.72 kg Universi ty [facility] [place] [facility] BMI 2020-03-01 21:25:00 17.14 kg/m2 Universi ty [facility] [place] [facility] Systolic blood 2020-03-02 00:23:00 135 mm[Hg] Univer sity of pressure [place] [facility] Diastolic blood 2020-03-02 00:23:00 67 mm[Hg] Unive rsity of pressure [place] [facility] Heart rate 2020-03-02 00:23:00 67 /min Universi ty [facility] [place] [facility] Respiratory rate 2020-03-02 00:23:00 20 /min Univ ersity of [place] [facility] Oxygen saturation in 2020-03-02 00:23:00 99 /min University of Arterial blood by [facility] Pulse oximetry Branch Body temperature 2020-03-01 21:25:00 36.33 Laxmi Univ ersity of [place] [facility] Body height 2020-03-01 21:25:00 165.1 cm Universi ty [facility] [place] [facility] Body weight 2020-03-01 21:25:00 46.72 kg Universi ty [facility] [place] [facility] BMI 2020-03-01 21:25:00 17.14 kg/m2 [facility] Systolic blood 2022-08-05 16:31:00 86 mm[Hg] [facility] Diastolic blood 2022-08-05 16:31:00 61 mm[Hg] [facility] Center Heart rate 2022-08-05 16:31:00 68 /min [facility] Respiratory rate 2022-08-05 16:31:00 16 /min [facility] Oxygen saturation in 2022-08-05 16:31:00 92 /min [facility] Arterial blood by Medical Ce nter Pulse oximetry Body temperature 2022-08-05 16:15:00 36.61 Laxmi [facility] Body height 2022-08-05 13:26:00 167.6 cm [facility] Body weight 2022-08-05 13:26:00 49.261 kg [facility] BMI 2022-08-05 13:26:00 17.53 kg/m2 [facility] Systolic (mm Hg) 2022-04-11 18:27:00 Edinson rial [facility] Diastolic (mm Hg) 2022-04-11 18:27:00 Mem orial [facility] Heart Rate 2022-04-11 18:27:00 [facility] Respitory Rate 2022-04-11 18:27:00 Memori al [place] Height 2022-04-11 18:27:00 160.02 cm [facility] Weight 2022-04-11 18:27:00 [facility] BMI Calculated 2022-04-11 18:27:00 Memori al [place] Systolic (mm Hg) 2021-11-27 20:49:00 Edinson rial [place] Diastolic (mm Hg) 2021-11-27 20:49:00 Mem orial [place] Heart Rate 2021-11-27 20:49:00 [facility] Respitory Rate 2021-11-27 20:49:00 Memori al [place] Height 2021-11-27 20:49:00 162.56 cm [facility] Weight 2021-11-27 20:49:00 [facility] BMI Calculated 2021-11-27 20:49:00 Memori al [place] Systolic (mm Hg) 2021-03-29 18:46:00 Edinson rial [place] Diastolic (mm Hg) 2021-03-29 18:46:00 Mem orial [facility] Heart Rate 2021-03-29 18:46:00 [facility] Respitory Rate 2021-03-29 18:46:00 Memori al [place] Systolic (mm Hg) 2019-10-06 20:08:00 Edinson rial [place] Diastolic (mm Hg) 2019-10-06 20:08:00 Mem orial [facility] Heart Rate 2019-10-06 20:08:00 [facility] Respitory Rate 2019-10-06 20:08:00 Memori al [place] Height 2019-10-06 20:08:00 162.56 cm [facility] Weight 2019-10-06 20:08:00 [facility] BMI Calculated 2019-10-06 20:08:00 Memori al [place] Weight 2019-03-25 18:58:00 [facility] BMI Calculated 2019-03-25 18:58:00 Memori al [place] Height 2019-03-25 18:58:00 167.64 cm [facility] Systolic (mm Hg) 2019-03-25 18:58:00 Edinson rial [place] Diastolic (mm Hg) 2019-03-25 18:58:00 Mem orial [facility] Heart Rate 2019-03-25 18:58:00 [facility] Respitory Rate 2019-03-25 18:58:00 Memori al [place] BMI Calculated 2019-01-21 18:35:00 Memori al [place] Weight 2019-01-21 18:35:00 [facility] Height 2019-01-21 18:35:00 167.64 cm [facility] Respitory Rate 2019-01-21 18:35:00 Memori al [place] Heart Rate 2019-01-21 18:35:00 [facility] Systolic (mm Hg) 2019-01-21 18:35:00 Edinson rial [place] Diastolic (mm Hg) 2019-01-21 18:35:00 Mem orial [place] BMI Calculated 2018-12-30 14:25:00 Memori al [place] Weight 2018-12-30 14:25:00 [facility] Height 2018-12-30 14:25:00 167.64 cm [facility] Systolic (mm Hg) 2018-12-30 14:25:00 Edinson rial [place] Diastolic (mm Hg) 2018-12-30 14:25:00 Mem orial [place] Respitory Rate 2018-12-30 14:25:00 Memori al [place] Heart Rate 2018-12-30 14:25:00 [facility] Systolic (mm Hg) 2018-10-19 22:38:00 Edinson rial [place] Diastolic (mm Hg) 2018-10-19 22:38:00 Mem orial [facility] Heart Rate 2018-10-19 22:38:00 [facility] Respitory Rate 2018-10-19 22:38:00 Memori al [place] Height 2018-10-19 22:38:00 167.64 cm [facility] Weight 2018-10-19 22:38:00 [facility] BMI Calculated 2018-10-19 22:38:00 Memori al [place] Temperature Oral (F) 2018-02-06 17:35:00 99.2 F [facility] Heart Rate 2018-02-06 17:35:00 [facility] Respitory Rate 2018-02-06 17:35:00 Memori al [place] Systolic (mm Hg) 2018-02-06 17:35:00 Edinson rial [place] Diastolic (mm Hg) 2018-02-06 17:35:00 Mem orial [place] Heart Rate 2018-02-06 12:40:00 [facility] Respitory Rate 2018-02-06 12:40:00 Memori al [place] Systolic (mm Hg) 2018-02-06 12:40:00 Edinson rial [place] Diastolic (mm Hg) 2018-02-06 12:40:00 Mem orial [place] Temperature Oral (F) 2018-02-06 12:40:00 98.5 F [facility] Respitory Rate 2018-02-06 08:12:00 Memori al [place] Heart Rate 2018-02-06 08:12:00 [facility] Temperature Oral (F) 2018-02-06 08:12:00 97.8 F [facility] Systolic (mm Hg) 2018-02-06 08:12:00 Edinson rial [place] Diastolic (mm Hg) 2018-02-06 08:12:00 Mem orial [place] Height 2018-02-05 02:47:00 167.64 cm [facility] Weight 2018-02-05 02:47:00 [facility] BMI Calculated 2018-02-05 02:47:00 Memori al [place] BMI Calculated 2018-02-04 15:52:00 Memori al [place] Weight 2018-02-04 15:52:00 [facility] Height 2018-02-04 15:52:00 167.64 cm [facility] Respitory Rate 2015-10-28 14:00:00 Memori al [place] Systolic (mm Hg) 2015-10-28 14:00:00 Edinson rial [place] Diastolic (mm Hg) 2015-10-28 14:00:00 Mem orial [place] Temperature Oral (F) 2015-10-28 14:00:00 98.1 F [facility] Heart Rate 2015-10-28 14:00:00 [facility] Respitory Rate 2015-10-28 10:00:00 Memori al [place] Systolic (mm Hg) 2015-10-28 10:00:00 Edinson rial [facility] Diastolic (mm Hg) 2015-10-28 10:00:00 Mem orial [facility] Heart Rate 2015-10-28 10:00:00 [facility] Temperature Oral (F) 2015-10-28 10:00:00 97.9 F [facility] Respitory Rate 2015-10-28 06:00:00 Memori al [place] Heart Rate 2015-10-28 06:00:00 [facility] Temperature Oral (F) 2015-10-28 06:00:00 97.6 F [facility] Systolic (mm Hg) 2015-10-28 06:00:00 Edinson rial [facility] Diastolic (mm Hg) 2015-10-28 06:00:00 Mem orial [facility] Height 2015-10-27 02:52:00 152.4 cm [facility] Height 2015-10-22 18:39:00 165.1 cm [facility] Weight 2015-10-22 18:39:00 [facility] BMI Calculated 2015-10-22 18:39:00 Memori al [facility] Procedures Procedure Date / Time Performing Source Performed Clinician [place] ERCP 2022-08-[address] [facility] 16:07:00 [facility] REPORT OF PROCEDURE - ENDOSCOPY 2022-08-[address] [facility] URL 16:01:37 Medical Center ENDOSCOPIC RETROGRADE 2022-08-[address] [facility] CHOLANGIOPANCREATOGRAPHY 15:43:00 [facility] Center (ENDOSCOPIC RETROGRADE CHOLANGIOPANCREATOGRAPHY) PROCEDURE W/ C-ARM 2022-08-[address] [facility] 15:43:00 [facility] ERCP, WITH SPHINCTEROTOMY 2022-08-[address] [facility] 15:43:00 [facility] Center ERCP, WITH BALLOON SWEEP OF BILE 2022-08-05 Mike Garza in [facility] DUCTS 15:43:00 [facility] BASIC METABOLIC PANEL (NA, K, 2021-04-16 Raul Ramírez [facility], CO2, GLUCOSE, BUN, 11:16:00 [facility] CREATININE, [place]) Branch ADC,CLC OR LCC ONLY - INFLUENZA 2021-04-15 Avani Ordonez [facility] A & B DIRECT ANTIGEN 23:26:00 [facility] CT CHEST PULMONARY ANGIOGRAM 2021-04-15 Avani Ordonez Uni versity of 22:54:30 [facility] COVID-19 (ID NOW RAPID TESTING) 2021-04-15 Avani Ordonez [place] 21:15:00 [facility] LAB ONLY COVID INTERPRETATION 2021-04-15 Avani Ordonez Un iversity of 21:15:00 [facility] LACTIC ACID WHOLE BLOOD 2021-04-[address] [facility] 21:11:00 [facility] MAGNESIUM 2021-04-15 Avani Ordonez [place] of 21:10:00 [facility] COMP. METABOLIC PANEL (62845) 2021-04-15 Avani Ordonez Un iversity of 21:10:00 [facility] CBC WITH DIFF 2021-04-15 Avani Ordonez [place] of 21:10:00 [facility] GLYCOSYLATED HEMOGLOBIN (A1C) 2021-04-15 Diego Herrera Un iversity of 21:10:00 [facility] PROTHROMBIN TIME / INR 2021-04-15 Avani Ordonez Universit y of 21:10:00 [facility] D-DIMER 2021-04-15 Avani Ordonez [place] 21:10:00 [facility] ACTIVATED PARTIAL THRMPLAS SUKI 2021-04-15 Avani Ordonez U niversity of 21:10:00 [facility] N-TERMINAL PRO-BNP 2021-04-15 Avani Ordonez [place] of 21:10:00 [facility] HB ECG ROUTINE & RHYTHM STRIP 2021-04-15 Avani Ordonez Un iversity of 21:00:18 [facility] TROPONIN I 2020-03-01 Keren Mares [facility] 22:18:00 [facility] HEPATIC FUNCTION PANEL (42583) 2020-03-01 Keren Mares [facility] (ALB,T.PRO,BILI 22:18:00 [facility],BU/BC,ALT,AST,ALK PHOS) Branch BASIC METABOLIC PANEL (NA, K, 2020-03-01 Keren Mares [facility] CL, CO2, GLUCOSE, BUN, 22:18:00 [facility] ical CREATININE, [place]) Branch CBC WITH DIFFERENTIAL 2020-03-[address] [facility] ity of 22:18:00 [facility] N-TERMINAL PRO-BNP 2020-03-01 Keren Mares [facility] 22:18:00 [facility] COVID-19 (ID NOW RAPID TESTING) 2020-03-01 Keren Mares [facility] 22:18:00 [facility] NOTICE OF PRIVACY PRACTICES 2020-03-01 Doctor Unassigned, U niversity of 21:12:20 Lillie [facility] CONSENT/REFUSAL FOR DIAGNOSIS 2020-03-01 Doctor Unassigned, University of AND TREATMENT 21:11:40 Lillie [facility] Appendectomy [facility] Arthroscopy of knee [facility] pearson Elbow maneuver [facility] Hysterectomy [facility] Repair of shoulder [facility] Plan of Care Planned Activity Planned Date Details Comments Source Future Scheduled 2023-08-[address] [facility] Test 00:00:00 [facility] r Screening (12+) [code = Tobacco Cessation Counseling and Screening (12+)] Future Scheduled 2023-08-[address] [facility] Test 00:00:00 [facility] r Screening (12+) [code = Tobacco Cessation Counseling and Screening (12+)] Future Scheduled 2022-09-[address] [facility] Test 00:00:00 WELLNESS (YEAR 2 or Medical Center FIRST YEAR if no IPPE) [code = MEDICARE ANNUAL WELLNESS (YEAR 2 or FIRST YEAR if no IPPE)] Future Scheduled 2022-09-[address] [...] RISK Medical C enter SCREENING] Future Scheduled 2022-09-[address] [facility] Test 00:00:00 (12+) [code = Medical Center DEPRESSION SCREENING (12+)] Future Scheduled 2022-09-14 FALLS RISK SCREENING [facility] Test 00:00:00 [code = FALLS RISK Medical C enter SCREENING] Future Scheduled 2022-05-15 INFLUENZA VACCINE (#1) [facility] 00:[facility]00 [code = INFLUENZA Medical Ce nter VACCINE (#1)] Future Scheduled 2022-05-15 INFLUENZA VACCINE (#1) [facility] 00:00:00 [code = INFLUENZA Medical Ce nter VACCINE (#1)] Future Scheduled 2001 PNEUMOCOCCAL 65+ YRS [facility] Test 00:00:00 (1 - PCV) [code = Medical Ce nter PNEUMOCOCCAL 65+ YRS (1 - PCV)] Future Scheduled 2001 PNEUMOCOCCAL 65+ YRS [facility] Test 00:00:00 (1 - PCV) [code = Medical Ce nter PNEUMOCOCCAL 65+ YRS (1 - PCV)] Future Scheduled 1986 SHINGLES VACCINES ([address] [facility] Test 00:00:00 of 2) [code = SHINGLES Medic al Center VACCINES (1 of 2)] Future Scheduled 1986 SHINGLES VACCINES ([address] [facility] Test 00:00:00 of 2) [code = SHINGLES Medic al Center VACCINES (1 of 2)] Future Scheduled 1955 DTAP/TDAP/TD [facility]ACCINES [facility] 00:00:00 (1 - Tdap) [code = Medical C enter DTAP/TDAP/TD VACCINES (1 - Tdap)] Future Scheduled 1955 DTAP/TDAP/TD VACCINES [facility] 00:00:00 (1 - Tdap) [code = Medical C enter DTAP/TDAP/TD VACCINES (1 - Tdap)] Future Scheduled 1936 COVID-19 VACCINE (#1) [facility] 00:00:00 [code = COVID-[address] VACCINE (#1)] Future Scheduled 1936 COVID-19 VACCINE (#1) [facility] 00:00:00 [code = COVID-[address] VACCINE (#1)] Encounters Start End Encounter Admission Attending Care Care Encounter Source Date/Time Date/Time Type Type Clinicians Facility Department ID 2022-08-05 2022-08-05 Outpatient [facility] [id number] [facility] 13:01:00 23:59:00 Blanca 2022-08-05 2022-08-05 [facility] [id number] 13:01:00 17:26:00 Encounter [facility] 2022-08-05 2022-08-05 Outpatient KAYLA [facility] Surgery [id number] [facility] 13:01:00 17:26:00 MIKE 2022-08-05 2022-08-05 [facility] [id number] 13:01:00 17:26:00 Encounter [facility] 2022-08-05 2022-08-05 Anesthesia [facility] [id number] 15:43:00 16:16[facility]00 [facility] 2022-08-05 2022-08-05 Anesthesia [facility] [address] [facility] [id number] 15:43:00 16:16:00 [facility] 2022-08-05 2022-08-05 Surgery Garza [facility] [id number] 15:00:00 16:00:00 [facility] 2022-08-05 2022-08-05 Surgery Kayla, [facility] [id number] 15:00:00 16:00:00 [facility] 2022-08-05 2022-08-05 Travel [facility] [id number] [facility] 00:[facility]00 00:00:00 [facility] 2022-08-05 2022-08-05 Travel [facility] [id number] [facility] 00:[facility]00 00:00:00 [facility] 2022-07-31 2022-07-31 Outpatient EL [facility] [id number] [facility] 11:59:14 23:59:00 2022-07-31 2022-07-31 [facility] [id number] 11:40:00 23:59:00 Encounter [facility] 2022-07-31 2022-07-31 [facility] [id number] 11:40:00 23:59:00 Encounter [facility] 2022-07-31 2022-07-31 Travel [facility] [id number] [facility] 00:[facility]:00 00:00:00 [facility] 2022-07-31 2022-07-31 Travel [facility] [id number] [facility] 00:[facility]00 00:00:00 [facility] 2022-07-23 2022-07-23 Outpatient MHIE MHIE [id number] Memoria 13:45:00 13:45:00 24 l [facility] 2022-07-03 2022-07-03 Emergency E RONAK, MAYI MHBL MHBL [id number] MHBL 14:19:00 18:15:00 2022-04-11 2022-04-12 Outpatient nullFlavo MNA [id number] Memoria 18:00:00 04:59:59 r Neurology 23 l [place] 2022-03-18 2022-03-18 Ambulatory nullFlavo MNA [id number] Memoria 19:00:00 19:00:00 Pre-Reg r Neurology 22 l Kelin Andrade 2021-11-27 2021-11-28 Outpatient nullFlavo MNA [id number] Memoria 20:00:00 04:59:59 r Neurology 21 l Kelin Andrade 2021-11-27 2021-11-27 Ambulatory nullFlavo MNA [id number] Memoria 19:45:00 19:45:00 Pre-Reg r Neurology 20 l Kelin Andrade 2021-05-06 2021-05-06 Ambulatory nullFlavo MNA [id number] Memoria 19:00:00 19:00:00 Pre-Reg r Neurology 19 l Kelin Andrade 2021 2021 Transition Tiffanie Snyder [id number] [facility] 00:00:00 00:00:00 of Care Dakotah Dwyer [id number] ity of [place] [id number] [facility] [id number] [facility] 403 Branch 2021 2021 Transition Tiffanie Snyder [id number] 00:00:00 00:00:00 of Care Dakotah Zamoranoy [id number] [place] [id number] 2021-04-15 2021-04-17 [facility] Destiny Frias 1.2.840.[id number] [facility] 15:40:00 20:05:00 Encounter Sree Ramos [id number] [facility] [id number] Torrey Herman [id number] [facility] 094 Branch 2021-04-15 2021-04-17 [facility] Destiny Frias 1.2.840.1 [id number] 15:40:00 20:05:00 Encounter Sree Ramos [id number] [facility] [id number] 2021-04-15 2021-04-15 Emergency X Avan[facility] ERT [id number] Univers 15:40:00 15:40:00 ity [facility] 2021-04-04 2021-04-04 Ambulatory nullFlavo MNA [id number] Memoria 19:00:00 19:00:00 Pre-Reg r Neurology 17 l [place] 2021-03-29 2021-03-30 Outpatient nullFlavo MNA [id number] Memoria 18:00:00 04:59:59 r Neurology 18 l [place] 2021-02-20 2021-02-20 Ambulatory nullFlavo MNA [id number] Memoria 19:15:00 19:15:00 Pre-Reg r Neurology 16 l [place] 2021-01-23 2021-01-23 Ambulatory nullFlavo MNA [id number] Memoria 19:00:00 19:00:00 Pre-Reg r Neurology 13 l [place] 2020-12-06 2020-12-06 Ambulatory nullFlavo MNA [id number] Memoria 20:30:00 20:30:00 Pre-Reg r Neurology 15 l [place] 2020-11-15 2020-11-16 Outpatient nullFlavo MNA [id number] Memoria 21:15:00 05:59:59 r Neurology 14 l [place] 2020-10-22 2020-10-24 Outside nullFlavo MNA [id number] Memoria 21:23:00 05:59:59 Medical r Neurology 03 l Records [place] 2020-07-26 2020-07-27 Outpatient nullFlavo MNA [id number] Memoria 20:00:00 05:59:59 r Neurology 12 l [place] [facility] 2020-04-05 2020-04-06 Outpatient nullFlavo MNA [id number] Memoria 19:00:00 04:59:59 r Neurology 11 l [place] [facility] 2020-04-05 2020-04-05 Ambulatory nullFlavo MNA [id number] [facility] 19:00:00 19:00:00 Pre-Reg r Neurology 10 l [place] [facility] 2020-03-01 2020-03-01 Emergency X VISHNU, [facility] ERT [id number] Univers 16:34:28 19:52:00 KEREN barrow [facility] 2020-03-01 2020-03-01 Emergency [place], [facility] 1.2.840.[id number] [facility] 16:34:28 19:52:00 Keren Puckett [id number] ity [place] [id number] [facility] [id number] [address] 2020-03-01 2020-03-01 Emergency [facility] 1.2.840.114 [id number] 16:34:28 19:52:00 Keren Puckett [id number] [place] [id number] [place] [id number] [facility] 2019-10-06 2019-10-07 Outpatient nullFlavo MNA [id number] Memoria 19:15:00 05:59:59 r Neurology 09 l Kelin Andrade 2019-07-29 2019-07-29 Outpatient MHIE MHIE [id number] [facility] 13:00:00 13:00:00 [facility] 2019-03-[facility] 2019-03-31 Ambulatory nullFlavo MNA [id number] [facility] 20:15:00 20:15:00 Pre-Reg r Neurology 03 l Kelin Andrade 2019-03-25 2019-03-26 Outpatient nullFlavo MNA [id number] [facility] 18:00:00 04:59:59 r Neurology 07 l Kelin Andrade 2019-02-09 2019-02-09 Ambulatory nullFlavo MNA [id number] Mem[facility] 19:45:00 19:45:00 Pre-Reg r Neurology 05 l Kelin Andrade 2019-01-21 2019-01-22 Outpatient nullFlavo MNA [id number] Memoria 18:15:00 04:59:59 r Neurology 06 l Kelin Andrade 2018-12-30 2018-12-31 Outpatient nullFlavo MNA [id number] Memoria 14:00:00 04:59:59 r Neurology 04 l Kelin Andrade 2018-10-19 2018-10-20 Outpatient nullFlavo MNA [id number] Memoria 22:00:00 05:59:59 r Neurology 02 l Kelin Andrade 2018-09-17 2018-09-19 Phone nullFlavo MNA [id number] Memoria 21:30:00 05:59:59 Message r Neurology 01 l Kelin Andrade 2018-08-20 2018-08-22 Phone Robyn RODRIGUEZ [id number] Memoria 19:01:00 05:59:59 Message r Neurology 00 l Kelin Andrade 2018-02-04 2018-02-06 Inpatient [facility] [id number] Memoria 08:21:00 21:15:00 r [place] 43 l [facility] 2015-10-22 2015-10-28 Inpatient [facility] [id number] Memoria 18:39:00 17:47:00 r [place] 39 l [facility] Results Test Description Test Time Test Comments Results Result Sour e Comments [place], ERCP 2022-07-16 Reason for 2 exam:->Bile 16:07:00 [facility] 1935 Sex: F An imaging unit was utilized for this procedure. No radiologist interpretation was requested. Refer to the EMR for findings. Refer to PACS for any patient radiation dose information. LAB ONLY COVID COVID DMT [facility] 3 InterpretationInte [facility] 23:44:30 rpretation/Recomme Branch ndations:Molecular NAAT Tests for [...] COVID-19 testing the patient has had at [facility], including molecular NAAT testing (more commonly known as PCR testing and Rapid ID Now testing) and antibody testing. It does not take into account any testing that a patient has had outside of the [facility] medical record. [facility] LABORATORY SERVICESCOVID GhyhavdDWSM-ThP-3 Rapid ID NOW (no units) ? ? Date ? Value ? 04/15/2021 ? Positive (A) ? ? ? 03/01/2020 ? Not Detected ? [facility]OR[facility] Basic Metabolic Panel (NA, K, CL, CO2, GLUCOSE, BUN, 2021-04 12:21:50 CREATININE, CA) Test Item Value Reference Range Interpretation Comme nts NA (test code = 9436870256) 139 mmol/L 135-145 K (test code = 0572070066) 4.3 mmol/L 3.5-5.0 CL (test code = 9630499384) 109 mmol/L 98-108 H CO2 TOTAL (test code = 2933371692) 26 mmol/L 23-31 AGAP (test code = 6551777345) 2-16 BUN (test code = 3550544365) 15 mg/dL 7-23 GLUCOSE (test code = 0608978753) 74 mg/dL 70-110 CREATININE (test code = 0.59 mg/dL 0.50-1.04 8422327309) CALCIUM (test code = 4687039349) 7.4 mg/dL 8.6-10.6 L eGFR (test code = 5621381422) mL/min/1.73m2 DREAD (test code = DREAD) Association [...] tests). Lab Interpretation (test code = Abnormal 54228-8) [facility] (A1C)2021-04-16 11:45:40 Test Item Value Reference Range Interpretation Comments HGB A1C (test code = 5.8 % 4.0-5.7 H 4548-4) DREAD (test code = DREAD) Reference RangesNormal: <5.7%Prediabetes: 5.7 - 6.4%Diabetes: > 6.5% Lab Interpretation (test Abnormal code = 50417-1) [facility] CenterCT CHEST PULMONARY DHNLECYFG5243-99-78 04:37:45 No acute pulmonary embolism identified. Apparent [...] Rightposterior rib 9 minimally displaced acute fracture. [facility], Radiant Results Inft User - 04/15/2021 11:38 [...] this study and agree with the abovereport. [facility] CenterADC,CLC OR LCC ONLY - INFLUENZA A & B DIRECT EEECIUM9452-50-53 23:53:22 Test Item Value Reference Range Interpretation Comments Influenza A (test code = 17215-9) Negative Negative Influenza B (test code = 49864-2) Negative Negative Lab Interpretation (test code = Normal 79735-4) [facility] CenteraPTT2021-08-02 23:33:43 Test Item Value Reference Range Interpretation Comments APTT Patient (test See_Comment [Automat ed code = 3173-2) message] The system which generated this result transmitted reference range : 23 - 38 Seconds . The reference range was not used to interpr et this result as normal/abnormal . DREAD (test code = DREAD) The [facility] patient population mean normal value for aPTT is 30 seconds. Lab Interpretation Normal (test code = 95118-6) [facility] CenterProthrombin Time (PT) / JJD1088-09-15 23:31:24 Test Item Value Reference Range Interpretation [...] tions. Lab Interpretation (test Normal code = 43162-4) [facility] CenterN-TERMINAL TEN-PJN1283-28-02 21:45:39 Test Item Value Reference Range Interpretation Comments NT-proBNP (test code 1030 pg/mL See_Comment H [Autom ated = 9190100034) message] The system which generated this result transmitted reference range : <=450. The reference range was not used to interpret this result as normal/abnormal . DREAD (test code = DREDA) Biotin has been reported to cause a negative bias, interpret results relative to patient's use of biotin. Lab Interpretation Abnormal (test code = 16022-4) [facility] CenterCOMP. METABOLIC PANEL (99196)2021-04-15 21:40:38 Test Item Value Reference Range Interpretation Comments NA (test code = 140 mmol/L 135-145 4966567008) K (test code = 4.4 mmol/L 3.5-5.0 6919233051) CL (test code = 107 mmol/L 98-108 9859884953) CO2 TOTAL (test code = 25 mmol/L 23-31 1674599404) AGAP (test code = 2-16 9911599519) BUN (test code = 25 mg/dL 7-23 H 3595086624) GLUCOSE (test code = 80 mg/dL 70-110 6325836202) CREATININE (test code = 0.79 mg/dL 0.50-1.04 5907817425) TOTAL BILI (test code = 0.4 mg/dL 0.1-1.6 2776864628) CALCIUM (test code = 8.6 mg/dL 8.6-10.6 1003009374) T PROTEIN (test code = 6.8 g/dL 6.3-8.2 3552905426) ALBUMIN (test code = 3.7 g/dL 3.5-5.0 3654698475) ALK PHOS (test code = 85 U/L 34-122 4912378321) ALTv (test code = 10 U/L 5-35 1742-6) AST(SGOT) (test code = 30 U/L 13-40 3690714789) eGFR (test code = mL/min/1.73m2 5216619357) DREAD (test code = DREAD) Association of [...] tests). Lab Interpretation Abnormal (test code = 85531-6) [facility] CenterMAGNESIUM2021-08-02 21:40:38 Test Item Value Reference Range Interpretation Comments MAGNESIUM (test code = 5126610326) 2.1 mg/dL 1.7-2.4 Lab Interpretation (test code = Normal 75750-1) [facility]-YXACH9466-53-43 21:28:56 Test Item Value Reference Interpretation Comments Range D-DIMER (test code = See_Comment H [Autom ated 8761836241) message] The system which generated this result [...] diagnosis. Lab Interpretation Abnormal (test code = 40345-5) [facility] CenterCOVID-19 (ID NOW RAPID TESTING)2021-04-15 21:28:35 Test Item Value Reference Range Interpretation Comments SARS-CoV-2 Rapid ID NOW Positive Not Detected A (test code = 05577-3) DREAD (test code = DREAD) ID NOW COVID-19 Assay is an isothermal nucleic acid amplification test intended for the qualitative detection of nucleic acid from SARS-CoV-2 viral RNA in nasopharyngeal ([employer]) specimens. It is used under Emergency Use [...] indicated. Lab Interpretation Abnormal (test code = 07514-7) [facility] WITH GFEZ1165-89-70 21:21:14 Test Item Value Reference Range Interpretation Comments WBC (test code = See_Comment L [Automated 6690-2) message] The sy stem which generated this result transmitted reference range : 4.30 - 11.10 10*3/?L. The reference range was not used to interpret this result as normal/abnormal . RBC (test code = See_Comment L [Automated 989-8) message] The sy stem which generated this [...] RDW-SD (test code = 48.7 fL 39.0-49.9 94155-3) RDW-CV (test code = 13.6 % 12.0-15.5 788-0) PLT (test code = See_Comment L [Automated 777-3) message] The sy stem which generated this result transmitted reference range : 166 - 358 10*3/ ?L. The reference r kemar was not used to interpret this result as normal/abnormal . MPV (test code = 10.0 fL 9.5-12.9 69795-2) NRBC/100 WBC (test See_Comment [Automat ed code = 6956935050) message] The system which generated this result transmitted reference range : 0.0 - 10.0 /100 WBCs. The refer ence range was not u sed to interpret th is result as normal/abnormal . NRBC x10^3 (test code <0.01 See_Comment [Auto mated = 4043952873) message] The s ystem which generated this result transmitted reference range : 10*3/?L. The reference range was not used to interpret this result as normal/abnormal . GRAN MAT (NEUT) % 58.7 % (test code = 770-8) IMM GRAN % (test code 0.30 % = 9762618961) LYMPH % (test code = 22.9 % 736-9) MONO % (test code = 15.2 % 5905-5) EOS % (test code = 2.6 % 713-8) BASO % (test code = 0.3 % 706-2) GRAN MAT x10^3(ANC) 2.29 10*3/uL 1.88-7.09 (test code = 5020216226) IMM GRAN x10^3 (test <0.03 0.00-0.06 code = 2602065185) LYMPH x10^3 (test code 0.89 10*3/uL 1.32-3.29 L = 731-0) MONO x10^3 (test code 0.59 10*3/uL 0.33-0.92 = 742-7) EOS x10^3 (test code = 0.10 10*3/uL 0.03-0.39 711-2) BASO x10^3 (test code <0.03 0.01-0.07 = 704-7) Lab Interpretation Abnormal (test code = 99009-3) [facility] Acid Whole Xyjct9664-28-11 21:20:48 Test Item Value Reference Range Interpretation Comments LACTIC ACID (test code = 1.13 mmol/L 0.50-2.20 3092740810) Lab Interpretation (test code = Normal 57654-0) [facility] CenterCOVID[facility] (ID NOW RAPID TESTING)2020-03-01 23:27:00 Test Item Value Reference Range Interpretation Comments SARS-CoV-2 Rapid ID NOW Not Detected Not Detected (test code = 38843-3) DREAD (test code = DREAD) ID NOW COVID-19 Assay is an isothermal nucleic acid amplification test intended for the qualitative detection of nucleic acid from SARS-CoV-2 viral RNA in nasopharyngeal ([employer]) specimens. It is used under Emergency Use [...] indicated. Lab Interpretation Normal (test code = 12803-0) [facility] CenterTrjanelln [id number] 23:21:00 Test Item Value Reference Range Interpretation Comments TROPONIN I (test <0.012 See_Comment [Automated code = 8860085438) message] The system which generated this result [...] ? Lab Interpretation Normal (test code = 75297-6) [facility] CenterN-[facility]MINAL YLJ-EIL5714-14-18 23:18:00 Test Item Value Reference Range Interpretation Comments NT-proBNP (test code 407 pg/mL See_Comment [Autom ated = 2995833236) message] The system which generated this result transmitted reference range : <=450. The reference range was not used to interpret this result as normal/abnormal . DREAD (test code = DREAD) Biotin has been reported to cause a negative bias, interpret results relative to patient's use of biotin. Lab Interpretation Normal (test code = 13203-8) [facility] CenterBasi Metabolic Panel (NA, K, CL, CO2, GLUCOSE, BUN, CREATININE, CA)2020-03-01 23:10:00 Test Item Value Reference Range Interpretation Comments NA (test code = 140 mmol/L 135-145 7580316177) K (test code = 4.5 mmol/L 3.5-5 9293564353) CL (test code = 108 mmol/L 98-108 0410141559) CO2 TOTAL (test code = 22 mmol/L 23-31 L 4023908644) AGAP (test code = 2-16 4408220667) BUN (test code = 18 mg/dL 7-23 4903102809) GLUCOSE (test code = 104 mg/dL 70-110 5510691171) CREATININE (test code = 0.75 mg/dL 0.5-1.04 4539770339) CALCIUM (test code = 9.2 mg/dL 8.6-10.6 9151251877) eGFR Calculation mL/min/1.73m2 (Non-) (test code = 3805874572) eGFR Calculation mL/min/1.73m2 () (test code = 7654645413) DREAD (test code = DREAD) Association of [...] tests). Lab Interpretation Abnormal (test code = 56959-4) [facility] CenterHepatic Function Panel (ALB, T.PRO, BILI T, BU/BC, ALT, AST, ALK PHOS)2020-03-01 23:10:00 Test Item Value Reference Range Interpretation Comments TOTAL BILI (test code = 4321395894) 0.1 mg/dL 0.1-1.1 BILI UNCON (test code = 3011447102) 0.4 mg/dL 0.1-1.1 BILI CONJ (test code = 5317687444) 0.0 mg/dL 0-0.3 T PROTEIN (test code = 6082505400) 6.8 g/dL 6.3-8.2 ALBUMIN (test code = 9534944134) 3.9 g/dL 3.5-5 ALK PHOS (test code = 6118520440) 89 U/L 34-122 ALTv (test code = 1742-6) 10 U/L 5-35 AST(SGOT) (test code = 0105316152) 18 U/L 13-40 Lab Interpretation (test code = Normal 22565-2) [facility] WITH KJZZCDYMDMHL8343-45-31 23:01:00 Test Item Value Reference Range Interpretation [...] RDW-SD (test code = 42.5 fL 39-49.9 23133-9) RDW-CV (test code = 12.0 % 12-15.5 788-0) PLT (test code = See_Comment [Automated 777-3) message] The sy stem which generated this result transmitted reference range : 166 - 358 10*3/ ?L. The reference r kemar was not used to interpret this result as normal/abnormal . MPV (test code = 9.4 fL 9.5-12.9 L 81008-7) NRBC/100 WBC (test See_Comment [Automat ed code = 7927924507) message] The system which generated this result transmitted reference range : 0.0 - 10.0 /100 WBCs. The refer ence range was not u sed to interpret th is result as normal/abnormal . NRBC x10^3 (test code <0.01 See_Comment [Auto mated = 9632372991) message] The s ystem which generated this result transmitted reference range : 10*3/?L. The reference range was not used to interpret this result as normal/abnormal . GRAN MAT (NEUT) % 61.9 % (test code = 770-8) IMM GRAN % (test code 0.40 % = 9352593413) LYMPH % (test code = 27.1 % 736-9) MONO % (test code = 8.9 % 5905-5) EOS % (test code = 1.3 % 713-8) BASO % (test code = 0.4 % 706-2) GRAN MAT x10^3(ANC) 5.16 10*3/uL 1.88-7.09 (test code = 8161872718) IMM GRAN x10^3 (test 0.03 10*3/uL 0-0.06 code = 4240714993) LYMPH x10^3 (test code 2.26 10*3/uL 1.32-3.29 = 731-0) MONO x10^3 (test code 0.74 10*3/uL 0.33-0.92 = 742-7) EOS x10^3 (test code = 0.11 10*3/uL 0.03-0.39 711-2) BASO x10^3 (test code 0.03 10*3/uL 0.01-0.07 = 704-7) Lab Interpretation Abnormal (test code = 94800-8) [facility] CenterHEMATOLOGY2018-05-26 11:29:00 Test Item Value Reference Range Interpretation Comments Hct (test code = Hct) 25.5 36.0-48.0 [facility]QixodmvDAYCSLIZKI2052-03-[facility] 11:29:00 Test Item Value Reference Range Interpretation Comments Hgb (test code = Hgb) 8.6 12.0-16.0 [facility] UWJGU5328-31-99 11:44:00 Test Item Value Reference Range Interpretation Comments Vitamin D, 25-OH, Total (test code = 12.4 30.0-100.0 Vitamin D, 25-OH, Total) [facility] HospitalTjxotukESRYWNPDPMCS9863-79-84 11:44:00 Test Item Value Reference Range Interpretation Comments AGAP (test code = AGAP) 13.9 10.0-20.0 [facility] HospitalKayqvlkQRECBWORNMYZ9756-92-03 11:44:00 Test Item Value Reference Range Interpretation Comments eGFR (test code = eGFR) 82 [facility] HospitalXtszldsJNGAITZBAUTW6040-48-39 11:44:00 Test Item Value Reference Range Interpretation Comments Chloride Lvl (test code = Chloride Lvl) 110 95-109 [facility] HospitalBmalljbFYZUZKIOFIBY4783-41-05 11:44:00 Test Item Value Reference Range Interpretation Comments CO2 (test code = CO2) 24 24-32 [facility] HospitalBihxzhfPCRFMFAQLAXV3698-44-34 11:44:00 Test Item Value Reference Range Interpretation Comments Sodium Lvl (test code = Sodium Lvl) 144 135-145 [facility] HospitalAydaabqGUNNCSINLYWY4536-00-01 11:44:00 Test Item Value Reference Range Interpretation Comments Potassium Lvl (test code = Potassium 3.9 3.5-5.1 Lvl) [facility] HospitalFjhddlhACSHPKIUFESN6231-31-35 11:44:00 Test Item Value Reference Range Interpretation Comments BUN (test code = BUN) 20 7-22 [facility] HospitalWjyvccrZDCFVPVALWZR7461-78-00 11:44:00 Test Item Value Reference Range Interpretation Comments Creatinine Lvl (test code = Creatinine 0.68 0.50-1.40 Lvl) [facility] HospitalBdizjbyHWWMENEBDWHA2714-15-38 11:44:00 Test Item Value Reference Range Interpretation Comments Glucose Lvl (test code = Glucose Lvl) 151 70-99 [facility] HospitalZcoduinEVDZOJJXQWMG0913-01-08 11:44:00 Test Item Value Reference Range Interpretation Comments Calcium Lvl (test code = Calcium Lvl) 7.9 8.5-10.5 [facility] CenterBfkimbvKXQSWADDON9906-48-78 11:44:00 Test Item Value Reference Range Interpretation Comments MCV (test code = MCV) 93.8 80.0-98.0 [facility] CenterAvzbctaKIPYDCAESK3074-34-96 11:44:00 Test Item Value Reference Range Interpretation Comments MCH (test code = MCH) 31.7 pg 27.0-31.0 [facility] CenterPkwsisiZZYYNUPCLS5552-47-57 11:44:00 Test Item Value Reference Range Interpretation Comments Hct (test code = Hct) 26.2 36.0-48.0 [facility] CenterUlwyuyjZQXXJVPACX2342-51-70 11:44:00 Test Item Value Reference Range Interpretation Comments Platelet (test code = Platelet) 215 133-450 [facility] CenterUuzgnxzHGCPRMARBV7836-61-07 11:44:00 Test Item Value Reference Range Interpretation Comments MCHC (test code = MCHC) 33.8 32.0-36.0 [facility] CenterFfjkosdVVFFIBFJOG1800-64-13 11:44:00 Test Item Value Reference Range Interpretation Comments MPV (test code = MPV) 6.8 7.4-10.4 [facility] CenterSonhwcgTQDIYVAPAF4289-00-18 11:44:00 Test Item Value Reference Range Interpretation Comments RDW (test code = RDW) 12.7 11.5-14.5 [facility] CenterXzgpeqhYLGRISDTVS8576-21-23 11:44:00 Test Item Value Reference Range Interpretation Comments Hgb (test code = Hgb) 8.9 12.0-16.0 [facility] CenterSyamkeiTIOHLXWXDK9484-00-59 11:44:00 Test Item Value Reference Range Interpretation Comments WBC (test code = WBC) 7.6 3.7-10.4 [facility] CenterTbvmlhgHATVFWFBDA0262-26-68 11:44:00 Test Item Value Reference Range Interpretation Comments RBC (test code = RBC) 2.79 4.20-5.40 [facility] CenterWlaxietHCUQMESKJA0117-03-22 11:44:00 Test Item Value Reference Range Interpretation Comments Monocytes # (test code 1.2 See_Comment [Aut omated message] The = Monocytes #) system which generated this result tra nsmitted reference range : <=0.8. The reference r kemar was not used to int erpret this result as normal/abnormal . [facility] CenterWdpplwlDLJXOFDEKM0845-92-37 11:44:00 Test Item Value Reference Range Interpretation Comments Lymphocytes # (test code = Lymphocytes 1.2 1.0-5.5 #) [facility] CenterYozswvkSKQNFKKOKM3821-65-30 11:44:00 Test Item Value Reference Range Interpretation Comments Monocytes (test code = Monocytes) 16.0 2.0-12.0 [facility] CenterXmlgpijCHFSUPZTVG7674-62-89 11:44:00 Test Item Value Reference Range Interpretation Comments Lymphocytes (test code = Lymphocytes) 15.8 20.0-40.0 [facility]rjoegzQRPUWFPRHE4233-18-63 11:44:00 Test Item Value Reference Range Interpretation Comments Segs (test code = Segs) 67.9 45.0-75.0 [facility] CenterKvdzqftBZDMGKSCVV1022-73-45 11:44:00 Test Item Value Reference Range Interpretation Comments Segs-Bands # (test code = Segs-Bands #) 5.1 1.5-8.1 [facility] CenterNeyprvlFHAMEIKVAF7785-13-77 11:44:00 Test Item Value Reference Range Interpretation Comments Basophils (test code = 0.3 See_Comment [Aut omated message] The Basophils) system which ge nerated this result tra nsmitted reference range : <=1.0. The reference r kemar was not used to int erpret this result as normal/abnormal . [facility] HospitalPARATHYROID HERBZPL3589-28-96 11:44:00 Test Item Value Reference Range Interpretation Comments PTH Intact (test code = PTH Intact) 122.9 18.4-80.1 [facility] DAJOGFV2641-86-84 09:21:00 Test Item Value Reference Range Interpretation Comments ABO/Rh (test code = ABO/Rh) O POS [facility] HKPUSZS7514-36-51 09:21:00 Test Item Value Reference Range Interpretation Comments Antibody Scrn (test Negative (02/04/18 4:21 code = Antibody Scrn) AM) [facility]aredoTBLNFilms.comCHEM BBASB3687-75-03 09:06:59 Test Item Value Reference Range Interpretation Comments Lactic Acid Lvl (test code = Lactic 0.9 0.5-2.2 Acid Lvl) [facility] HospitalSmczctnTHDQOHEYDVPY1123-60-74 09:06:59 Test Item Value Reference Range Interpretation Comments AGAP (test code = AGAP) 11.9 10.0-20.0 [facility] HospitalPuqntkwOELECKFGZCQU8533-13-52 09:06:59 Test Item Value Reference Range Interpretation Comments eGFR (test code = eGFR) 83 [facility] HospitalOppbwcsNGMWCCZZVQRG7406-37-13 09:06:59 Test Item Value Reference Range Interpretation Comments Calcium Lvl (test code = Calcium Lvl) 8.1 8.5-10.5 [facility] HospitalBrycumnQAVPMNMTYLGP1341-37-94 09:06:59 Test Item Value Reference Range Interpretation Comments CO2 (test code = CO2) 22 24-32 [facility] HospitalImuiwwyUHZLOYUIAIWN6734-14-22 09:06:59 Test Item Value Reference Range Interpretation Comments Sodium Lvl (test code = Sodium Lvl) 140 135-145 [facility] HospitalWwkpcrgSTXXASWYKHDH9366-94-43 09:06:59 Test Item Value Reference Range Interpretation Comments Creatinine Lvl (test code = Creatinine 0.67 0.50-1.40 Lvl) [facility] HospitalOsmlkzgTBTTFGTCFTFK3652-47-56 09:06:59 Test Item Value Reference Range Interpretation Comments BUN (test code = BUN) 22 7-22 [facility] HospitalGberjujRUBVEIHKYUCF0000-53-92 09:06:59 Test Item Value Reference Range Interpretation Comments Glucose Lvl (test code = Glucose Lvl) 135 70-99 [facility] HospitalZtvszydCPUMBWQSWZRP0042-25-96 09:06:59 Test Item Value Reference Range Interpretation Comments Chloride Lvl (test code = Chloride Lvl) 110 95-109 [facility] HospitalHfrqzqhNSRDZEIQPXGB2034-84-07 09:06:59 Test Item Value Reference Range Interpretation Comments Potassium Lvl (test code = Potassium 3.9 3.5-5.1 Lvl) [facility] CenterAznqrrgTOGLERCSKA6892-23-71 09:06:59 Test Item Value Reference Range Interpretation Comments PTT (test code = PTT) 24.7 s 22.9-35.8 [facility] CenterMjkcatvOULNVHHGGK2203-36-56 09:06:59 Test Item Value Reference Range Interpretation Comments INR (test code = INR) 1.01 1 0.85-1.17 [facility] CenterFwurqmhXUIJTTAKYU1427-35-22 09:06:59 Test Item Value Reference Range Interpretation Comments PT (test code = PT) 13.3 s 12.0-14.7 [facility] CenterYilqwbfWLODJCOZEU1809-97-39 09:06:59 Test Item Value Reference Range Interpretation Comments Platelet (test code = Platelet) 232 133-450 [facility] CenterAzoktmfWAEYRNAWNO6927-97-86 09:06:59 Test Item Value Reference Range Interpretation Comments MPV (test code = MPV) 7.1 7.4-10.4 [facility] CenterOaqokapBFFIXFNJTH9183-75-07 09:06:59 Test Item Value Reference Range Interpretation Comments Hct (test code = Hct) 32.2 36.0-48.0 [facility] CenterOecrmfvWZGZNZHAUC9453-79-80 09:06:59 Test Item Value Reference Range Interpretation Comments RBC (test code = RBC) 3.42 4.20-5.40 [facility] CenterHruuyywQSTPJWYIZZ4105-82-29 09:06:59 Test Item Value Reference Range Interpretation Comments Hgb (test code = Hgb) 10.8 12.0-16.0 [facility] CenterLppbzevLWFPAONXPN0488-26-10 09:06:59 Test Item Value Reference Range Interpretation Comments WBC (test code = WBC) 8.5 3.7-10.4 [facility] CenterImnandcCZMILKEKFE8108-53-16 09:06:59 Test Item Value Reference Range Interpretation Comments MCHC (test code = MCHC) 33.5 32.0-36.0 [facility] CenterOlwlctvJQJIYFTPFF3493-65-79 09:06:59 Test Item Value Reference Range Interpretation Comments RDW (test code = RDW) 13.0 11.5-14.5 [facility] CenterZrqevhpYCXVIAEYVV9725-87-76 09:06:59 Test Item Value Reference Range Interpretation Comments MCV (test code = MCV) 94.1 80.0-98.0 [facility] CenterTwmefluSZDOYYPJFL7517-09-88 09:06:59 Test Item Value Reference Range Interpretation Comments MCH (test code = MCH) 31.5 pg 27.0-31.0 [facility] CenterEbwrhikWRPOPSRRHL0153-31-87 09:06:59 Test Item Value Reference Range Interpretation Comments Eosinophils (test code = 2.3 See_Comment [A utomated message] The Eosinophils) system which ge nerated this result tra nsmitted reference range : <=4.0. The reference r kemar was not used to int erpret this result as normal/abnormal . [facility] CenterEpqkvkbVXAQUOTWNS1930-41-07 09:06:59 Test Item Value Reference Range Interpretation Comments Lymphocytes # (test code = Lymphocytes 1.7 1.0-5.5 #) [facility] CenterZdoewkiMHJOHDTQFT1792-60-71 09:06:59 Test Item Value Reference Range Interpretation Comments Segs-Bands # (test code = Segs-Bands #) 5.5 1.5-8.1 [facility] CenterYooxxskPXILIIJQJV0893-70-80 09:06:59 Test Item Value Reference Range Interpretation Comments Basophils (test code = 0.8 See_Comment [Aut omated message] The Basophils) system which ge nerated this result tra nsmitted reference range : <=1.0. The reference r kemar was not used to int erpret this result as normal/abnormal . [facility]BfymtxuLHUYUWYSNT0806-68-90 09:06:59 Test Item Value Reference Range Interpretation Comments Basophils # (test code 0.1 See_Comment [Aut omated message] The = Basophils #) system which generated this result tra nsmitted reference range : <=0.2. The reference r kemar was not used to int erpret this result as normal/abnormal . [facility] CenterAsyrbboCHAYNCBRGQ5488-79-13 09:06:59 Test Item Value Reference Range Interpretation Comments Eosinophils # (test code 0.2 See_Comment [A utomated message] The = Eosinophils #) system whic h generated this result tra nsmitted reference range : <=0.5. The reference r kemar was not used to int erpret this result as normal/abnormal . [facility] CenterAoqwaujUJYARIGQFI7980-74-22 09:06:59 Test Item Value Reference Range Interpretation Comments Monocytes # (test code 1.1 See_Comment [Aut omated message] The = Monocytes #) system which generated this result tra nsmitted reference range : <=0.8. The reference r kemar was not used to int erpret this result as normal/abnormal . [facility] CenterQuwlxulGLEQQKMQIG4807-34-14 09:06:59 Test Item Value Reference Range Interpretation Comments Segs (test code = Segs) 64.6 45.0-75.0 [facility] CenterYxpjqtpURFRSZIAZY7542-24-31 09:06:59 Test Item Value Reference Range Interpretation Comments Lymphocytes (test code = Lymphocytes) 19.7 20.0-40.0 [facility] CenterKpmfdhpVKMWSFAXWX3430-29-85 09:06:59 Test Item Value Reference Range Interpretation Comments Monocytes (test code = Monocytes) 12.6 2.0-12.0 [facility]OslbvrdEFDGUENEHWPU5645-55-63 11:14:00 Test Item Value Reference Range Interpretation Comments AGAP (test code = AGAP) 11.7 10.0-20.0 [facility] HospitalFpywxhsJRONJGPANWBP2910-66-82 11:14:00 Test Item Value Reference Range Interpretation Comments eGFR (test code = eGFR) 99 [facility] HospitalBxrrbdaQXASJLUHVNVQ3070-19-73 11:14:00 Test Item Value Reference Range Interpretation Comments CO2 (test code = CO2) 29 24-32 [facility] HospitalJtsvvzgQPVMRXFRCSRC0282-53-20 11:14:00 Test Item Value Reference Range Interpretation Comments Chloride Lvl (test code = Chloride Lvl) 104 95-109 [facility] HospitalVauykcwWHNHECZOXBMD6512-71-10 11:14:00 Test Item Value Reference Range Interpretation Comments Potassium Lvl (test code = Potassium 3.7 3.5-5.1 Lvl) [facility] HospitalWtprrzuUVQYHURYFDSZ1584-58-94 11:14:00 Test Item Value Reference Range Interpretation Comments Sodium Lvl (test code = Sodium Lvl) 141 135-145 [facility] HospitalYyaklchAUQPDJIYKGCF1147-96-86 11:14:00 Test Item Value Reference Range Interpretation Comments Creatinine Lvl (test code = Creatinine 0.40 0.50-1.40 Lvl) [facility] HospitalUtnxxghNIXTXSGGAXPN2251-43-19 11:14:00 Test Item Value Reference Range Interpretation Comments Calcium Lvl (test code = Calcium Lvl) 8.1 8.5-10.5 [facility] HospitalUfepfluEYMEBSXYRBRZ8250-10-37 11:14:00 Test Item Value Reference Range Interpretation Comments BUN (test code = BUN) 8 7-22 [facility] HospitalOetwopzQEMRWVYBCRUO3903-93-79 11:14:00 Test Item Value Reference Range Interpretation Comments Glucose Lvl (test code = Glucose Lvl) 94 70-99 [facility] CenterKwcjnuuRYUWGVMJYI7008-45-37 11:14:00 Test Item Value Reference Range Interpretation Comments RDW (test code = RDW) 16.6 11.5-14.5 [facility] CenterTpftjdjKIZPEEDZLM0802-42-92 11:14:00 Test Item Value Reference Range Interpretation Comments MPV (test code = MPV) 7.2 7.4-10.4 [facility] CenterPxusqasTCNPCZPNUP9034-97-73 11:14:00 Test Item Value Reference Range Interpretation Comments Platelet (test code = Platelet) 299 133-450 [facility] CenterPlucumeJAMPOFQHRZ0237-38-11 11:14:00 Test Item Value Reference Range Interpretation Comments MCH (test code = MCH) 29.8 pg 27.0-31.0 [facility] CenterMfbzuqzRCVNIKPEPC1900-43-30 11:14:00 Test Item Value Reference Range Interpretation Comments MCHC (test code = MCHC) 32.9 32.0-36.0 [facility] CenterOuvuhouFQLDWPTIXN3168-94-09 11:14:00 Test Item Value Reference Range Interpretation Comments MCV (test code = MCV) 90.5 80.0-98.0 [facility] CenterNeyicafPGJXNUXBKP9581-74-11 11:14:00 Test Item Value Reference Range Interpretation Comments RBC (test code = RBC) 3.41 4.20-5.40 [facility] CenterJknmplfPIIOHJBFDZ0207-58-94 11:14:00 Test Item Value Reference Range Interpretation Comments WBC (test code = WBC) 8.1 3.7-10.4 [facility] CenterBdniyosZNTLGMYCTK1618-49-75 11:14:00 Test Item Value Reference Range Interpretation Comments Hct (test code = Hct) 30.9 36.0-48.0 [facility] CenterVhgqslsHTMIDMBZFV4133-07-47 11:14:00 Test Item Value Reference Range Interpretation Comments Hgb (test code = Hgb) 10.2 12.0-16.0 [facility] CenterJdaajcnYCIJFXSKBF2822-39-15 11:14:00 Test Item Value Reference Range Interpretation Comments Basophils (test code = 1.1 See_Comment [Aut omated message] The Basophils) system which ge nerated this result tra nsmitted reference range : <=1.0. The reference r kemar was not used to int erpret this result as normal/abnormal . [facility] CenterFogwutjVEHLGPXBRQ8037-64-13 11:14:00 Test Item Value Reference Range Interpretation Comments Segs-Bands # (test code = Segs-Bands #) 5.4 1.5-8.1 [facility] CenterZbuiqomKEJOODTNCG8846-50-50 11:14:00 Test Item Value Reference Range Interpretation Comments Basophils # (test code 0.1 See_Comment [Aut omated message] The = Basophils #) system which generated this result tra nsmitted reference range : <=0.2. The reference r kemar was not used to int erpret this result as normal/abnormal . [facility] CenterVxjjifnIUXXMYQQKU0674-98-93 11:14:00 Test Item Value Reference Range Interpretation Comments Lymphocytes # (test code = Lymphocytes 1.2 1.0-5.5 #) [facility] CenterAcdnuvfKHSGCXQFAS9479-94-29 11:14:00 Test Item Value Reference Range Interpretation Comments Monocytes # (test code 0.8 See_Comment [Aut omated message] The = Monocytes #) system which generated this result tra nsmitted reference range : <=0.8. The reference r kemar was not used to int erpret this result as normal/abnormal . [facility] CenterJhgkolyTNFIZHMTPL1971-49-39 11:14:00 Test Item Value Reference Range Interpretation Comments Eosinophils # (test code 0.6 See_Comment [A utomated message] The = Eosinophils #) system whic h generated this result tra nsmitted reference range : <=0.5. The reference r kemar was not used to int erpret this result as normal/abnormal . [facility] CenterQvxtqvhHLSDIZNFOD2807-50-04 11:14:00 Test Item Value Reference Range Interpretation Comments Segs (test code = Segs) 66.7 45.0-75.0 [facility] CenterTzczbkxKZUBPTLHHX6114-49-54 11:14:00 Test Item Value Reference Range Interpretation Comments Lymphocytes (test code = Lymphocytes) 15.1 20.0-40.0 [facility] CenterRzuzajaGDOWNALJBE0901-13-92 11:14:00 Test Item Value Reference Range Interpretation Comments Monocytes (test code = Monocytes) 9.7 2.0-12.0 [facility] CenterBkpxwuoOBUWNARUWR0425-75-71 11:14:00 Test Item Value Reference Range Interpretation Comments Eosinophils (test code = 7.4 See_Comment [A utomated message] The Eosinophils) system which ge nerated this result tra nsmitted reference range : <=4.0. The reference r kemar was not used to int erpret this result as normal/abnormal . [facility] CenterFjusiouETVKVMIRKF4760-96-30 02:47:00 Test Item Value Reference Range Interpretation Comments Hct (test code = Hct) 30.2 36.0-48.0 [facility] CenterHpveszwTPHLYOSVUX9548-97-92 02:47:00 Test Item Value Reference Range Interpretation Comments Hgb (test code = Hgb) 10.1 12.0-16.0 [facility] CenterVlbaegjESAISFTVRW0982-11-89 18:09:00 Test Item Value Reference Range Interpretation Comments Hgb (test code = Hgb) 9.4 12.0-16.0 [facility] CenterKyshriwOKVVUWQYAT0262-03-82 18:09:00 Test Item Value Reference Range Interpretation Comments Hct (test code = Hct) 27.9 36.0-48.0 [facility] CenterZatbuuzSZAVGNICPG5224-20-92 10:49:00 Test Item Value Reference Range Interpretation Comments PT (test code = PT) 14.3 s 12.0-14.7 [facility] CenterZnyvkzsPGJDQTAQGL8732-27-48 10:49:00 Test Item Value Reference Range Interpretation Comments PTT (test code = PTT) 34.3 s 22.9-35.8 [facility] CenterRwbhgkzXRLNOGZEKP9457-22-46 10:49:00 Test Item Value Reference Range Interpretation Comments INR (test code = INR) 1.08 0.85-1.17 [facility] CenterLnoiaijRRSNMOLDAC4446-19-89 10:49:00 Test Item Value Reference Range Interpretation Comments Eosinophils (test code = 4.9 See_Comment [A utomated message] The Eosinophils) system which ge nerated this result tra nsmitted reference range : <=4.0. The reference r kemar was not used to int erpret this result as normal/abnormal . [facility] CenterXtchawuZEGQUYHIHZ1712-29-80 10:49:00 Test Item Value Reference Range Interpretation Comments Monocytes (test code = Monocytes) 8.3 2.0-12.0 [facility] CenterCyesgwwPYLPGMGOLX0912-15-64 10:49:00 Test Item Value Reference Range Interpretation Comments Basophils # (test code 0.1 See_Comment [Aut omated message] The = Basophils #) system which generated this result tra nsmitted reference range : <=0.2. The reference r kemar was not used to int erpret this result as normal/abnormal . [facility] CenterGaycnymCLXFGLIIGP6261-11-47 10:49:00 Test Item Value Reference Range Interpretation Comments Lymphocytes # (test code = Lymphocytes 0.9 1.0-5.5 #) [facility] CenterLqxwcdhGYJEGOCKTG9966-50-76 10:49:00 Test Item Value Reference Range Interpretation Comments Monocytes # (test code 0.8 See_Comment [Aut omated message] The = Monocytes #) system which generated this result tra nsmitted reference range : <=0.8. The reference r kemar was not used to int erpret this result as normal/abnormal . [facility] CenterGpurkrvLMDZYVWAHF3086-80-25 10:49:00 Test Item Value Reference Range Interpretation Comments Basophils (test code = 0.7 See_Comment [Aut omated message] The Basophils) system which ge nerated this result tra nsmitted reference range : <=1.0. The reference r kemar was not used to int erpret this result as normal/abnormal . [facility] CenterJrjarjoBWTHTYTEOL9432-84-06 10:49:00 Test Item Value Reference Range Interpretation Comments Segs-Bands # (test code = Segs-Bands #) 7.0 1.5-8.1 [facility] CenterJgldqhxDWPKODPSBI2361-43-19 10:49:00 Test Item Value Reference Range Interpretation Comments Lymphocytes (test code = Lymphocytes) 9.9 20.0-40.0 [facility] CenterXduxxwdIVUCAXEYPH9940-36-01 10:49:00 Test Item Value Reference Range Interpretation Comments Segs (test code = Segs) 76.2 45.0-75.0 [facility] CenterRedcbvdFQFSWXBNUR1270-31-23 10:49:00 Test Item Value Reference Range Interpretation Comments Eosinophils # (test code 0.5 See_Comment [A utomated message] The = Eosinophils #) system [employer] h generated this result tra nsmitted reference range : <=0.5. The reference r kemar was not used to int erpret this result as normal/abnormal . [facility] CenterXzlfvmnNFPQTAVCRQ6620-91-52 10:49:00 Test Item Value Reference Range Interpretation Comments WBC (test code = WBC) 9.2 3.7-10.4 [facility] CenterWkpflckIVMOIQYZMC9342-72-69 10:49:00 Test Item Value Reference Range Interpretation Comments MPV (test code = MPV) 7.5 7.4-10.4 [facility] CenterNopaemrSCXKQUKQMB7711-24-81 10:49:00 Test Item Value Reference Range Interpretation Comments MCV (test code = MCV) 90.5 80.0-98.0 [facility] CenterBvxprakNDTDZZRLSR5598-50-14 10:49:00 Test Item Value Reference Range Interpretation Comments MCH (test code = MCH) 30.0 pg 27.0-31.0 [facility] CenterUiervriNINWZRSKIB0455-60-44 10:49:00 Test Item Value Reference Range Interpretation Comments MCHC (test code = MCHC) 33.1 32.0-36.0 [facility] CenterAmkgqhmDIIODJPNGQ8641-95-01 10:49:00 Test Item Value Reference Range Interpretation Comments RBC (test code = RBC) 2.88 4.20-5.40 [facility] CenterZliphpnNKHQARFZPV1674-60-84 10:49:00 Test Item Value Reference Range Interpretation Comments Platelet (test code = Platelet) 246 133-450 [facility]FgvvfhbJHRLNVJETH4052-41-76 10:49:00 Test Item Value Reference Range Interpretation Comments RDW (test code = RDW) 16.9 11.5-14.5 [facility] AND [id number] 23:46:00 Test Item Value Reference Range Interpretation Comments UA Urobilinogen (test code = UA no gt 0.1-1.0 Urobilinogen) [facility] AND [id number] 23:46:00 Test Item Value Reference Range Interpretation Comments Micro? (test code = Performed *NA*(10/26/15 Micro?) 5:46 PM) [facility] AND [id number] 23:46:00 Test Item Value Reference Range Interpretation Comments UA RBC (test code = no gt See_Comment [Automa dewey message] The UA RBC) system which ge nerated this result transmit dewey reference range : <=2. The reference range was not used to interpr et this result as deyvi l/abnormal. [facility] AND [id number] 23:46:00 Test Item Value Reference Range Interpretation Comments UA Bacteria (test code = UA Occasional /HPF Bacteria) [facility] AND [id number] 23:46:00 Test Item Value Reference Range Interpretation Comments UA Bili (test code = Negative *NA*(10/26/15 UA Bili) 5:46 PM) [facility] AND [id number] 23:46:00 Test Item Value Reference Range Interpretation Comments UA Protein (test code = UA Negative mg/dL Protein) [facility] AND [id number] 23:46:00 Test Item Value Reference Range Interpretation Comments UA Glucose (test code = UA Negative mg/dL Glucose) [facility] AND [id number] 23:46:00 Test Item Value Reference Range Interpretation Comments UA Ketones (test code = UA Negative mg/dL Ketones) [facility] AND [id number] 23:46:00 Test Item Value Reference Range Interpretation Comments UA WBC (test code = 1 See_Comment [Automa dewey message] The UA WBC) system which ge nerated this result transmit dewey reference range : <=5. The reference range was not used to interpr et this result as deyvi l/abnormal. [facility] AND [id number] 23:46:00 Test Item Value Reference Range Interpretation Comments UA Sq Epi (test code = UA Sq Occasional /LPF Epi) [facility] AND [id number] 23:46:00 Test Item Value Reference Range Interpretation Comments UA Leuk Est (test code Trace *ABN*(10/26/15 = UA Leuk Est) 5:46 PM) [facility] AND [id number] 23:46:00 Test Item Value Reference Range Interpretation Comments UA Nitrite (test code Negative (10/26/15 5:46 = UA Nitrite) PM) [facility] AND [id number] 23:46:00 Test Item Value Reference Range Interpretation Comments UA Blood (test code = Negative (10/26/15 5:46 UA Blood) PM) [facility] AND [id number] 23:46:00 Test Item Value Reference Range Interpretation Comments UA Turbidity (test code = Clear (10/26/15 5:46 UA Turbidity) PM) [facility] AND [id number] 23:46:00 Test Item Value Reference Range Interpretation Comments UA Spec Grav (test code = UA Spec Grav) 1.006 [facility] AND [id number] 23:46:00 Test Item Value Reference Range Interpretation Comments UA pH (test code = UA pH) 6.0 5.0-8.0 [facility] AND [id number] 23:46:00 Test Item Value Reference Range Interpretation Comments UA Color (test code = Light Yellow UA Color) *NA*(10/26/15 5:46 PM) [facility] [id number] 10:09:00 Test Item Value Reference Range Interpretation Comments ABO/Rh (test code = ABO/Rh) O POS [facility] [id number] 10:09:00 Test Item Value Reference Range Interpretation Comments Antibody Scrn (test Negative (10/26/15 4:09 code = Antibody Scrn) AM) [facility] [id number] 10:09:00 Test Item Value Reference Range Interpretation Comments eGFR (test code = eGFR) 99 [facility] [id number] 10:09:00 Test Item Value Reference Range Interpretation Comments Calcium Lvl (test code = Calcium Lvl) 7.4 8.5-10.5 [facility]2016-02-12 10:09:00 Test Item Value Reference Range Interpretation Comments CO2 (test code = CO2) 30 24-32 [facility]2016-02-12 10:09:00 Test Item Value Reference Range Interpretation Comments Chloride Lvl (test code = Chloride Lvl) 103 95-109 [facility]2016-02-12 10:09:00 Test Item Value Reference Range Interpretation Comments Sodium Lvl (test code = Sodium Lvl) 141 135-145 [facility]2016-02-12 10:09:00 Test Item Value Reference Range Interpretation Comments Potassium Lvl (test code = Potassium 3.6 3.5-5.1 Lvl) [facility]2016-02-12 10:09:00 Test Item Value Reference Range Interpretation Comments BUN (test code = BUN) 13 7-22 [facility]2016-02-12 10:09:00 Test Item Value Reference Range Interpretation Comments Creatinine Lvl (test code = Creatinine 0.40 0.50-1.40 Lvl) [facility]2016-02-12 10:09:00 Test Item Value Reference Range Interpretation Comments Glucose Lvl (test code = Glucose Lvl) 124 70-99 [facility]2016-02-12 10:09:00 Test Item Value Reference Range Interpretation Comments AGAP (test code = AGAP) 11.6 10.0-20.0 [facility]2016-02-12 10:09:00 Test Item Value Reference Range Interpretation Comments Phosphorus (test code = Phosphorus) 2.4 2.5-4.5 [facility]2016-02-12 10:09:00 Test Item Value Reference Range Interpretation Comments Magnesium Lvl (test code = Magnesium 1.9 1.8-2.4 Lvl) [facility] CenterEnhsrbjLHKKBFKKVB5508-44-32 10:09:00 Test Item Value Reference Range Interpretation Comments Basophils (test code = 0.4 See_Comment [Aut omated message] The Basophils) system which ge nerated this result tra nsmitted reference range : <=1.0. The reference r kemar was not used to int erpret this result as normal/abnormal . [facility] CenterNdtsiapAJPMUNLGXC1381-18-96 10:09:00 Test Item Value Reference Range Interpretation Comments Segs-Bands # (test code = Segs-Bands #) 9.0 1.5-8.1 [facility] CenterIzsnvfnAEQTUADXFY7438-73-84 10:09:00 Test Item Value Reference Range Interpretation Comments Monocytes (test code = Monocytes) 7.1 2.0-12.0 [facility] CenterWvyqqiiINWGYGSMXB0965-17-98 10:09:00 Test Item Value Reference Range Interpretation Comments Lymphocytes (test code = Lymphocytes) 9.6 20.0-40.0 [facility] CenterJmnpbaiACHLGSLPUQ0355-36-54 10:09:00 Test Item Value Reference Range Interpretation Comments Lymphocytes # (test code = Lymphocytes 1.1 1.0-5.5 #) [facility] CenterWnlyutoNYDQLNGGCT4784-69-61 10:09:00 Test Item Value Reference Range Interpretation Comments Eosinophils (test code = 3.4 See_Comment [A utomated message] The Eosinophils) system which ge nerated this result tra nsmitted reference range : <=4.0. The reference r kemar was not used to int erpret this result as normal/abnormal . [facility] CenterVvhvihqEJPECVWNMC1508-45-37 10:09:00 Test Item Value Reference Range Interpretation Comments Eosinophils # (test code 0.4 See_Comment [A utomated message] The = Eosinophils #) system wh h generated this result tra nsmitted reference range : <=0.5. The reference r kemar was not used to int erpret this result as normal/abnormal . [facility] CenterNecplntJEBPNDMWZX3085-47-50 10:09:00 Test Item Value Reference Range Interpretation Comments Basophils # (test code 0.0 See_Comment [Aut omated message] The = Basophils #) system which generated this result tra nsmitted reference range : <=0.2. The reference r kemar was not used to int erpret this result as normal/abnormal . [facility] CenterVvhlingQRMILNHGDQ6151-40-31 10:09:00 Test Item Value Reference Range Interpretation Comments Monocytes # (test code 0.8 See_Comment [Aut omated message] The = Monocytes #) system which generated this result tra nsmitted reference range : <=0.8. The reference r kemar was not used to int erpret this result as normal/abnormal . [facility] CenterHdxktjnBAHSTQCSOR0805-68-44 10:09:00 Test Item Value Reference Range Interpretation Comments Segs (test code = Segs) 79.5 45.0-75.0 [facility]udANQCTWUYTW5819[facility]29 10:09:00 Test Item Value Reference Range Interpretation Comments MCH (test code = MCH) 29.9 pg 27.0-31.0 [facility] CenterNptuckhKRMRTFFCEY4204-70-62 10:09:00 Test Item Value Reference Range Interpretation Comments RBC (test code = RBC) 2.93 4.20-5.40 [facility]OwyylfiPNJRGWDEAH7012-19-85 10:09:00 Test Item Value Reference Range Interpretation Comments MPV (test code = MPV) 7.4 7.4-10.4 [facility] CenterFuzcfrdFOJZJZHHHB1753-05-09 10:09:00 Test Item Value Reference Range Interpretation Comments RDW (test code = RDW) 17.7 11.5-14.5 [facility] CenterDqbzkbkRMPJFRLOOV8535-56-76 10:09:00 Test Item Value Reference Range Interpretation Comments MCHC (test code = MCHC) 32.8 32.0-36.0 [facility] CenterLncbaklRFBAWUQJCI6546-58-54 10:09:00 Test Item Value Reference Range Interpretation Comments Platelet (test code = Platelet) 182 133-450 [facility] CenterBtzbwxnCDOGRQJPWK2565-57-14 10:09:00 Test Item Value Reference Range Interpretation Comments MCV (test code = MCV) 91.2 80.0-98.0 [facility] CenterUayaeqiKYWBEOQPZO1594-61-53 10:09:00 Test Item Value Reference Range Interpretation Comments WBC (test code = WBC) 11.3 3.7-10.4 [facility]PAR[facility] [id number] 10:09:00 Test Item Value Reference Range Interpretation Comments Ca Ion WB (test code = Ca Ion WB) 1.08 1.05-1.25 [facility] [id number] 10:09:00 Test Item Value Reference Range Interpretation Comments Ca Norm WB (test code = Ca Norm WB) 1.09 1.05-1.25 [facility] [id number] 22:16:00 Test Item Value Reference Range Interpretation Comments RBC product (test code Product available = RBC product) (10/25/15 4:16 PM) [facility] CenterOlmjdfuSXDXAJNLKS4367-73-01 16:21:00 Test Item Value Reference Range Interpretation Comments Polychrom (test code = Moderate *ABN*(10/25/15 Polychrom) 10:21 AM) [facility]XfgvfxiVNAPBQBLZD4109-16-15 16:21:00 Test Item Value Reference Range Interpretation Comments Plt Morph (test code = Normal (10/25/15 10:21 Plt Morph) AM) [facility] CenterObjzbzdRBNPBEURWT2216-02-63 16:21:00 Test Item Value Reference Range Interpretation Comments Baso Stipplin (test Moderate *ABN*(10/25/15 code = Baso Stipplin) 10:21 AM) [facility] CenterTrdxcyzGFQQHAUHID0683-00-48 16:21:00 Test Item Value Reference Range Interpretation Comments PTT (test code = PTT) 33.0 s 22.9-35.8 [facility] CenterLinrmxqLETGSJGZYL8158-59-18 16:21:00 Test Item Value Reference Range Interpretation Comments INR (test code = INR) 1.18 0.85-1.17 [facility] CenterXztohenZROPBGSRWM4754-11-36 16:21:00 Test Item Value Reference Range Interpretation Comments PT (test code = PT) 15.3 s 12.0-14.7 [facility] [id number] 08:39:00 Test Item Value Reference Range Interpretation Comments RBC product (test code Product available = RBC product) (10/25/15 2:39 AM) [facility] [id number] 07:39:00 Test Item Value Reference Range Interpretation Comments Magnesium Lvl (test code = Magnesium 1.7 1.8-2.4 Lvl) [facility] [id number] 07:39:00 Test Item Value Reference Range Interpretation Comments eGFR (test code = eGFR) 99 [facility] [id number] 07:39:00 Test Item Value Reference Range Interpretation Comments Calcium Lvl (test code = Calcium Lvl) 7.4 8.5-10.5 [facility] [id number] 07:39:00 Test Item Value Reference Range Interpretation Comments AGAP (test code = AGAP) 12.4 10.0-20.0 [facility] [id number] 07:39:00 Test Item Value Reference Range Interpretation Comments Glucose Lvl (test code = Glucose Lvl) 137 70-99 [facility]2016-02-11 07:39:00 Test Item Value Reference Range Interpretation Comments BUN (test code = BUN) 16 7-22 [facility]2016-02-11 07:39:00 Test Item Value Reference Range Interpretation Comments Creatinine Lvl (test code = Creatinine 0.40 0.50-1.40 Lvl) [facility]2016-02-11 07:39:00 Test Item Value Reference Range Interpretation Comments Sodium Lvl (test code = Sodium Lvl) 141 135-145 [facility]2016-02-11 07:39:00 Test Item Value Reference Range Interpretation Comments Potassium Lvl (test code = Potassium 3.4 3.5-5.1 Lvl) [facility]2016-02-11 07:39:00 Test Item Value Reference Range Interpretation Comments Chloride Lvl (test code = Chloride Lvl) 105 95-109 [facility]2016-02-11 07:39:00 Test Item Value Reference Range Interpretation Comments CO2 (test code = CO2) 27 24-32 [facility]2016-02-11 07:39:00 Test Item Value Reference Range Interpretation Comments Phosphorus (test code = Phosphorus) 3.1 2.5-4.5 [id number] 07:39:00 Test Item Value Reference Range Interpretation Comments Baso Stipplin (test Moderate *ABN*(10/25/15 code = Baso Stipplin) 1:39 AM) [id number] 07:39:00 Test Item Value Reference Range Interpretation Comments Polychrom (test code = Moderate *ABN*(10/25/15 Polychrom) 1:39 AM) [id number] 07:39:00 Test Item Value Reference Range Interpretation Comments Plt Morph (test code = Normal (10/25/15 1:39 Plt Morph) AM) [facility] [id number] 07:39:00 Test Item Value Reference Range Interpretation Comments Ca Norm WB (test code = Ca Norm WB) 1.08 1.05-1.25 [facility] [id number] 07:39:00 Test Item Value Reference Range Interpretation Comments Ca Ion WB (test code = Ca Ion WB) 1.05 1.05-1.25 [facility] [id number] 14:17:00 Test Item Value Reference Range Interpretation Comments Lactic Acid Lvl (test code = Lactic 1.0 0.5-2.2 Acid Lvl) [facility] [id number] 10:16:00 Test Item Value Reference Range Interpretation Comments Phosphorus (test code = Phosphorus) 3.7 2.5-4.5 [facility] [id number] 10:16:00 Test Item Value Reference Range Interpretation Comments Magnesium Lvl (test code = Magnesium 1.7 1.8-2.4 Lvl) [id number] 10:16:00 Test Item Value Reference Range Interpretation Comments INR (test code = INR) 1.18 0.85-1.17 [id number] 10:16:00 Test Item Value Reference Range Interpretation Comments PT (test code = PT) 15.3 s 12.0-14.7 [id number] 10:16:00 Test Item Value Reference Range Interpretation Comments PTT (test code = PTT) 27.8 s 22.9-35.8 [facility] [id number] 10:16:00 Test Item Value Reference Range Interpretation Comments Ca Norm WB (test code = Ca Norm WB) 1.08 1.05-1.25 [facility] [id number] 10:16:00 Test Item Value Reference Range Interpretation Comments Ca Ion WB (test code = Ca Ion WB) 1.08 1.05-1.25 [facility] BANK [id number] 04:44:00 Test Item Value Reference Range Interpretation Comments RBC product (test code Product available = RBC product) (10/22/15 10:44 PM) [facility] [id number] 03:04:00 Test Item Value Reference Range Interpretation Comments Antibody Scrn (test Negative (10/22/15 9:04 code = Antibody Scrn) PM) [facility] BANK [id number] 03:04:00 Test Item Value Reference Range Interpretation Comments ABO/Rh (test code = ABO/Rh) O POS [facility] AND [id number] 20:58:00 Test Item Value Reference Range Interpretation Comments UA Urobilinogen (test code = UA no gt 0.1-1.0 Urobilinogen) [facility] AND [id number] 20:58:00 Test Item Value Reference Range Interpretation Comments UA WBC (test code = 1 See_Comment [Automa dewey message] The UA WBC) system which ge nerated this result transmit dewey reference range : <=5. The reference range was not used to interpr et this result as deyvi l/abnormal. [facility] AND [id number] 20:58:00 Test Item Value Reference Range Interpretation Comments UA Leuk Est (test Negative (10/22/15 2:58 code = UA Leuk Est) PM) [facility] AND [id number] 20:58:00 Test Item Value Reference Range Interpretation Comments UA Blood (test code = Negative (10/22/15 2:58 UA Blood) PM) [facility] AND [id number] 20:58:00 Test Item Value Reference Range Interpretation Comments UA Bili (test code = Negative *NA*(10/22/15 UA Bili) 2:58 PM) [facility] AND [id number] 20:58:00 Test Item Value Reference Range Interpretation Comments UA Sq Epi (test code = UA Sq Epi) None Seen [facility] AND [id number] 20:58:00 Test Item Value Reference Range Interpretation Comments UA Color (test code = Light Yellow UA Color) *NA*(10/22/15 2:58 PM) [facility] AND [id number] 20:58:00 Test Item Value Reference Range Interpretation Comments UA Spec Grav (test code = UA Spec Grav) 1.009 [facility] AND [id number] 20:58:00 Test Item Value Reference Range Interpretation Comments UA Turbidity (test code = Clear (10/22/15 2:58 UA Turbidity) PM) [facility] AND [id number] 20:58:00 Test Item Value Reference Range Interpretation Comments UA pH (test code = UA pH) 7.0 5.0-8.0 [facility] AND [id number] 20:58:00 Test Item Value Reference Range Interpretation Comments UA Glucose (test code = UA Glucose) 50 mg/dL [facility] AND [id number] 20:58:00 Test Item Value Reference Range Interpretation Comments UA Protein (test code = UA Negative mg/dL Protein) [facility] AND [id number] 20:58:00 Test Item Value Reference Range Interpretation Comments UA Ketones (test code = UA Negative mg/dL Ketones) [facility] AND [id number] 20:58:00 Test Item Value Reference Range Interpretation Comments UA Nitrite (test code Negative (10/22/15 2:58 = UA Nitrite) PM) [facility] - [id number] 19:20:00 Test Item Value Reference Range Interpretation Comments MRSA by PCR (test Negative (10/22/15 1:20 code = MRSA by PCR) PM) [facility] [id number] 19:20:00 Test Item Value Reference Range Interpretation Comments Ammonia (test code = Ammonia) 32.0 [facility] [id number] 19:20:00 Test Item Value Reference Range Interpretation Comments Lipase Lvl (test code = Lipase Lvl) 160 73-393 [facility] [id number] 19:20:00 Test Item Value Reference Range Interpretation Comments Lactic Acid Lvl (test code = Lactic 0.9 0.5-2.2 Acid Lvl) [facility] [id number] 19:20:00 Test Item Value Reference Range Interpretation Comments Globulin (test code = Globulin) 2.2 2.0-4.0 [facility] [id number] 19:20:00 Test Item Value Reference Range Interpretation Comments A/G Ratio (test code = A/G Ratio) 1.0 0.7-1.6 [facility] [id number] 19:20:00 Test Item Value Reference Range Interpretation Comments ALANINE AMINOTRANSFERASE 16 See_Comment [A utomated message] (test code = ALANINE The sys tem which AMINOTRANSFERASE) generated this result transmitted ref erence range: <=65. Th e reference range was not used to int erpret this result as normal/abnormal . [facility] [id number] 19:20:00 Test Item Value Reference Range Interpretation Comments Bili Total (test code = Bili Total) 0.4 0.2-1.3 [facility]2016-02-08 19:20:00 Test Item Value Reference Range Interpretation Comments Alk Phos (test code = Alk Phos) 42 39-136 [facility]2016-02-08 19:20:00 Test Item Value Reference Range Interpretation Comments Bili Direct (test code 0.1 See_Comment [Aut omated message] The = Bili Direct) system which generated this result tra nsmitted reference range : <=0.3. The reference r kemar was not used to int erpret this result as deyvi l/abnormal. [facility]2016-02-08 19:20:00 Test Item Value Reference Range Interpretation Comments Total Protein (test code = Total 4.3 6.4-8.4 Protein) [facility]2016-02-08 19:20:00 Test Item Value Reference Range Interpretation Comments Albumin Lvl (test code = Albumin Lvl) 2.1 3.5-5.0 [facility]2016-02-08 19:20:00 Test Item Value Reference Range Interpretation Comments ASPARTATE TRANSAMINASE 19 See_Comment [Aut omated message] (test code = ASPARTATE The s ystem which TRANSAMINASE) generated this result transmitted ref erence range: <=37. Th e reference range was not used to interpr et this result as normal/abnormal . [facility]2016-02-08 19:20:00 Test Item Value Reference Range Interpretation Comments Bili Indirect (test 0.3 See_Comment [Automa dewey message] The code = Bili Indirect) system which generated this result tra nsmitted reference range : <=1.0. The reference r ekmar was not used to int erpret this result as normal/abnormal . [facility] [id number] 19:20:00 Test Item Value Reference Range Interpretation Comments Cortisol (test code = Cortisol) 3.4 [facility] [id number] 19:20:00 Test Item Value Reference Range Interpretation Comments Hgb A1C (test code = Hgb A1C) <3.5 % [facility]
[2022-10-11 16:14] LABS: Absolute Lymphocytes (CBC) 1.6 K/uL (0.7-4.9); Hematocrit 33.5 % (36.0-45.0); Lymphocytes % 19.6 % (15.3-44.8); MCV 94.9 fL (80-100); MPV 7.2 fL (7.6-11.3); RBC Red Blood Cell Count 3.53 M/uL (3.86-4.86)
[2022-10-11] MEDS ORDERED: NA CHLORIDE 0.9% 500 ML ONE (16:22)
[2022-10-11] MEDS ORDERED: MORPHINE 2 MG/ML SYR ONE ×2 (16:22→17:50)
[2022-10-11] MEDS ORDERED: ONDANSETRON 4 MG/2 ML VIAL ONE (16:22)
[2022-10-11 16:31] LABS: Albumin 3.4 g/dL (3.4-5.0); Bilirubin Total 0.4 mg/dL (0.2-1.0); Potassium 3.9 mmol/L (3.5-5.1); Protein, Total 7.2 g/dL (6.4-8.2)
--- NOTE | 2022-10-11 18:18 | RAD REPORT ---
EXAM DESCRIPTION: CT - Abdomen Pelvis W Contrast - 10/11/2022 6:02 pm CLINICAL HISTORY: Abdominal pain COMPARISON: September 29, 2022 TECHNIQUE: Computed axial tomography of the abdomen pelvis was obtained. 100 cc Isovue-300 was admin istered intravenously. Oral contrast was not requested which limits evaluation of bowel and appendix All CT scans are performed using dose optimization technique as appropriate and may include automated exposure control or mA/KV adjustment according to patient size. FINDINGS: Cholecystectomy The liver, spleen, pancreas, adrenal and kidneys appear unremarkable. There is no evidence of diverticulitis. Hysterectomy. No adnexal mass. 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
[2022-10-11 19:12] LABS: Urine Blood Trace-intact (Negative); Urine Glucose Negative (Negative); Urine Protein Negative (Negative)
--- NOTE | 2022-10-11 19:16 | EDPHYS ---
Physician Documentation [facility] Name: Rosina Odonnell Age: 87 yrs Sex: Female : 1935 Arrival Date: 10/11/2022 Time: 15:31 Bed 14 Private MD: ED Physician Medardo Shultz HPI: 10/11 19:24 This 87 yrs old Female presents to ER via Wheelchair with complaints of Abdominal Pain. kdr 19:24 The patient presents with abdominal pain in the lower abdomen. Onset: The kdr symptoms/episode began/occurred gradually, 2 day(s) ago. The symptoms do not radiate. Associated signs and symptoms: none. The symptoms are described as achy, dull, vague. Severity of pain: At its worst the pain was mild in the emergency department the pain is unchanged. The patient has experienced similar episodes in the past, multiple times. The patient has not recently seen a physician, Patient states that she is on antibiotics for nearly monthly basis. She self caths.. Historical: - Allergies: 15:37 Augmentin; hb 15:37 Sulfa (Sulfonamide Antibiotics); hb - PMHx: 15:37 Asthma; Hypertension; Multiple Sclerosis; Seizure; hb - PSHx: 15:37 EGD; GALLBLADDER; hysterectomy; sinus surgery; hb - Immunization history:: Adult Immunizations up to date. - Social history:: Smoking status: Patient denies any tobacco usage or history of. ROS: 19:24 Constitutional: Negative for fever, chills, and weight loss, Eyes: Negative for injury, kdr pain, redness, and discharge, ENT: Negative for injury, pain, and discharge, Neck: Negative for injury, pain, and swelling, Cardiovascular: Negative for chest pain, palpitations, and edema, Respiratory: Negative for shortness of breath, cough, wheezing, and pleuritic chest pain, Back: Negative for injury and pain, : Negative for injury, bleeding, discharge, and swelling, MS/Extremity: Negative for injury and deformity, Skin: Negative for injury, rash, and discoloration, Neuro: Negative for headache, weakness, numbness, tingling, and seizure activity. Psych: Negative for depression, anxiety, suicide ideation, homicidal ideation, and hallucinations, Allergy/Immunology: Negative for hives, rash, and allergies, Endocrine: Negative for neck swelling, polydipsia, polyuria, polyphagia, and marked weight changes, Hematologic/Lymphatic: Negative for swollen nodes, abnormal bleeding, and unusual bruising. 19:24 Abdomen/GI: Positive for abdominal pain, Negative for nausea, vomiting, and diarrhea, abdominal cramps, abdominal distension, anorexia, dysphagia, hematemesis, black/tarry stool, rectal pain, rectal bleeding. Exam: 19:24 Constitutional: This is a well developed, well nourished patient who is awake, alert, kdr and in no acute distress. Head/Face: Normocephalic, atraumatic. Eyes: Pupils equal round and reactive to light, extra-ocular motions intact. Lids and lashes normal. Conjunctiva and sclera are non-icteric and not injected. Cornea within normal limits. Periorbital areas with no swelling, redness, or edema. Neck: Trachea midline, no thyromegaly or masses palpated, and no cervical lymphadenopathy. Supple, full range of motion without nuchal rigidity, or vertebral point tenderness. No Meningismus. Chest/axilla: Normal chest wall appearance and motion. Nontender with no deformity. No lesions are appreciated. Cardiovascular: Regular rate and rhythm with a normal S1 and S2. No gallops, murmurs, or rubs. Normal PMI, no JVD. No pulse deficits. Respiratory: Lungs have equal breath sounds bilaterally, clear to auscultation and percussion. No rales, rhonchi or wheezes noted. No increased work of breathing, no retractions or nasal flaring. Back: No spinal tenderness. No costovertebral tenderness. Full range of motion. Skin: Warm, dry with normal turgor. Normal color with no rashes, no lesions, and no evidence of cellulitis. MS/ Extremity: Pulses equal, no cyanosis. Neurovascular intact. Full, normal range of motion. Neuro: Awake and alert, GCS 15, oriented to person, place, time, and situation. Cranial nerves II-XII grossly intact. Motor strength 5/5 in all extremities. Sensory grossly intact. Cerebellar exam normal. Normal gait. Psych: Awake, alert, with orientation to person, place and time. Behavior, mood, and affect are within normal limits. 19:24 Abdomen/GI: Inspection: abdomen appears normal, Bowel sounds: active, Palpation: soft, mild abdominal tenderness. Vital Signs: 15:36 BP 96 / 54; Pulse 82; Resp 16; Temp 97.4; Pulse Ox 99% on R/A; Weight 47.17 kg; Height hb 5 ft. 6 in. (167.64 cm); Pain 8/10; 18:20 BP 117 / 53; Pulse 76; Resp 16; Pulse Ox 95% on R/A; db 19:30 BP 126 / 98; Pulse 82; Resp 18; Temp 97.5; Pulse Ox 97% on R/A; Pain 0/10; ke1 15:36 Body Mass Index 16.78 (47.17 kg, 167.64 cm) hb MDM: 19:16 Patient medically screened. kdr 19:24 Data reviewed: vital signs, nurses notes. Consideration of Admission/Observation kdr Patient was admitted/placed on observation. Escalation of care including admission/observation considered. ED course: Patient was stable in the ED and happy with the care provided the plan for discharge and follow-up. 10/11 15:32 Order name: CBC with Diff; Complete Time: 16:37 [facility] 10/11 15:32 Order name: CMP; Complete Time: 16:37 [facility] 10/11 15:32 Order name: Lipase; Complete Time: 16:37 [facility] 10/11 16:38 Order name: CT Abd/Pelvis - IV Contrast Only; Complete Time: 18:48 [facility] 10/11 18:55 Order name: Urine Culture kdr 10/11 19:12 Order name: Urine Dipstick-Ancillary; Complete Time: 19:18 [facility] 10/11 15:32 Order name: IV Saline Lock; Complete Time: 16:12 [facility] 10/11 15:32 Order name: Labs collected and sent; Complete Time: 16:12 [facility] 10/11 18:55 Order name: Urine Dipstick-Ancillary (obtain specimen) kdr Administered Medications: 16:23 Drug: NS 0.9% 500 ml Route: IV; Rate: bolus; Site: left forearm; hb 17:02 Follow up: Response: No adverse reaction; IV Status: Completed infusion; IV Intake: hb 500ml 16:23 Drug: Zofran (Ondansetron) 4 mg Route: IVP; Site: left forearm; hb 17:10 Follow up: Response: No adverse reaction hb 16:29 CANCELLED (Duplicate Order): morphine 4 mg IVP once over 4 mins hb 16:30 Drug: morphine 2 mg Route: IVP; Infused Over: 4 mins; Site: left forearm; hb 17:10 Follow up: Response: No adverse reaction hb 17:48 Drug: morphine 2 mg Route: IVP; Infused Over: 4 mins; Site: right forearm; hb 19:30 Drug: Nitrofurantoin 100 mg Route: PO; ke1 Disposition Summary: 10/11/22 19:16 Discharge Ordered Location: Home kdr Problem: new kdr Symptoms: are unchanged kdr Condition: Stable kdr Diagnosis - Lower abdominal pain, unspecified kdr - UTI/ Urinary tract infection, site not specified kdr Followup: kdr - With: Private Physician - When: 2 - 3 days - Reason: If symptoms return, Further diagnostic work-up, Recheck today's complaints, Continuance of care, Re-evaluation by your physician Discharge Instructions: - Discharge Summary Sheet kdr - Abdominal Pain, Adult kdr - Urinary Tract Infection, Adult, [id number] kdr Forms: - Medication Reconciliation Form kdr - Thank You Letter kdr - Antibiotic Education kdr Prescriptions: - Macrobid 100 mg Oral Capsule - take 1 capsule by ORAL route every 12 hours for 7 days; 14 capsule; Refills: 0, kdr Product Selection Permitted Signatures: Dispatcher [employer] EDDE Medardo Shultz MD MD kdr Nneka Causey RN RN Saeid Wray RN RN ke1 Corrections: (The following items were deleted from the chart) 16:29 16:18 morphine 4 mg IVP once over 4 mins ordered. kdr hb
--- NOTE | 2022-10-11 19:16 | ER ---
Nurse's Notes [facility] Name: Rosina Odonnell Age: 87 yrs Sex: Female : 1935 Arrival Date: 10/11/2022 Time: 15:31 Bed 14 Private MD: Diagnosis: Lower abdominal pain, unspecified;UTI/ Urinary tract infection, site not specified Presentation: 10/11 15:36 Chief complaint: Abdominal pain 2 hours. Denies N/V/D. Coronavirus screen: Client hb presents with at least one sign or symptom that may indicate coronavirus-19. Provider contacted for isolation considerations. Ebola Screen: No symptoms or risks identified at this time. Risk Assessment: Do you want to hurt yourself or someone else? Patient reports no desire to harm self or others. Onset of symptoms was October 11, 2022. 15:36 Method Of Arrival: Wheelchair hb 15:36 Acuity: [place] 3 hb 19:39 Initial Sepsis Screen: Does the patient meet any 2 criteria? No. Patient's initial ke1 sepsis screen is negative. Does the patient have a suspected source of infection? No. Patient's initial sepsis screen is negative. Historical: - Allergies: 15:37 Augmentin; hb 15:37 Sulfa (Sulfonamide Antibiotics); hb - PMHx: 15:37 Asthma; Hypertension; Multiple Sclerosis; Seizure; hb - PSHx: 15:37 EGD; GALLBLADDER; hysterectomy; sinus surgery; hb - Immunization history:: Adult Immunizations up to date. - Social history:: Smoking status: Patient denies any tobacco usage or history of. Screenin:32 [facility] ED Fall Risk Assessment (Adult) History of falling in the last 3 months, db including since admission No falls in past 3 months (0 pts) Confusion or Disorientation No (0 pts) Intoxicated or Sedated No (0 pts) Impaired Gait No (0 pts) Mobility Assist Device Used No (0 pt) Altered Elimination No (0 pt) Score/Fall Risk Level 0 - 2 = Low Risk Oriented to surroundings, Maintained a safe environment. Abuse screen: Denies threats or abuse. Denies injuries from another. Nutritional screening: No deficits noted. Tuberculosis screening: No symptoms or risk factors identified. Assessment: 18:20 Reassessment: Patient appears in no apparent distress at this time. Patient and/or db family updated on plan of care and expected duration. Pain level reassessed. Patient is alert, oriented x 3, equal unlabored respirations, skin warm/dry/pink. general abdominal pain started today around 12 pm after eating. General: Appears in no apparent distress. comfortable, Behavior is calm, cooperative, appropriate for age, quiet. Pain: Complains of pain in abdomen. Neuro: Level of Consciousness is awake, alert, obeys commands, Oriented to person, place, time, situation. GI: Abdomen is flat, non-distended, Bowel sounds present X 4 quads. Abd is soft Abdomen is tender to palpation X 4 quads. 19:08 Reassessment: Patient appears in no apparent distress at this time. Patient and/or db family updated on plan of care and expected duration. Pain level reassessed. Patient is alert, oriented x 3, equal unlabored respirations, skin warm/dry/pink. Respiratory: No deficits noted. Airway is patent. 19:31 Reassessment: Patient appears in no apparent distress at this time. Patient is alert, ke1 oriented x 3, equal unlabored respirations, skin warm/dry/pink. Patient denies pain at this time. Patient states feeling better. Patient states symptoms have improved. Vital Signs: 15:36 BP 96 / 54; Pulse 82; Resp 16; Temp 97.4; Pulse Ox 99% on R/A; Weight 47.17 kg; Height hb 5 ft. 6 in. (167.64 cm); Pain 8/10; 18:20 BP 117 / 53; Pulse 76; Resp 16; Pulse Ox 95% on R/A; db 19:30 BP 126 / 98; Pulse 82; Resp 18; Temp 97.5; Pulse Ox 97% on R/A; Pain 0/10; ke1 15:36 Body Mass Index 16.78 (47.17 kg, 167.64 cm) hb ED Course: 15:31 Patient arrived in ED. rg4 15:32 Medardo Shultz MD is Attending Physician. kdr 15:37 Triage completed. hb 15:38 Arm band placed on. hb 16:00 Initial lab(s) drawn. Inserted saline lock: 20 gauge in left wrist, using aseptic kj1 technique. Blood collected. 18:04 CT Abd/Pelvis - IV Contrast Only In Process Unspecified. EDMS 18:32 Patient has correct armband on for positive identification. Bed in low position. Call db light in reach. Side rails up X2. Pulse ox on. NIBP on. Warm blanket given. 18:58 Marta Parson, RN is Primary Nurse. db 19:08 Report given to MARIELLA Valencia. db 19:08 Straight cath inserted, using sterile technique, Patient tolerated well. db 19:32 No provider procedures requiring assistance completed. IV discontinued. ke1 Administered Medications: 16:23 Drug: NS 0.9% 500 ml Route: IV; Rate: bolus; Site: left forearm; hb 17:02 Follow up: Response: No adverse reaction; IV Status: Completed infusion; IV Intake: hb 500ml 16:23 Drug: Zofran (Ondansetron) 4 mg Route: IVP; Site: left forearm; hb 17:10 Follow up: Response: No adverse reaction hb 16:29 CANCELLED (Duplicate Order): morphine 4 mg IVP once over 4 mins hb 16:30 Drug: morphine 2 mg Route: IVP; Infused Over: 4 mins; Site: left forearm; hb 17:10 Follow up: Response: No adverse reaction hb 17:48 Drug: morphine 2 mg Route: IVP; Infused Over: 4 mins; Site: right forearm; hb 19:30 Drug: Nitrofurantoin 100 mg Route: PO; ke1 Medication: 19:32 VIS not applicable for this client. ke1 Intake: 17:02 IV: 500ml; Total: 500ml. hb Outcome: 19:16 Discharge ordered by . kdr 19:39 Discharged to home via wheelchair. ke1 19:39 Condition: good 19:39 Discharge instructions given to patient. 19:40 Patient left the ED. ke1 Signatures: Dispatcher [employer] EDMS Medardo Shultz MD MD kdr Baxter, Heather RN RN Jenifer Zavala rg4 Alyssa Rain kj1 Saeid Wray RN RN ke1 Marta Parson, MARIELLA RN db Corrections: (The following items were deleted from the chart) 15:39 15:36 BP 100 / 53; Pulse 63bpm; Resp 16bpm; Pulse Ox 97% RA; Temp 97.4F; 47.17 kg; hb Height 5 ft. 6 in.; BMI: 16.7; Pain 8/10; hb
[2022-10-11] MEDS ORDERED: NITROFURAN MACRO 100 MG CAP PO ONE (19:27)
[2022-10-11 20:26] VITALS: BP 126/98; TEMP 97.5; O2SAT 97
== END 2022-10-11 19:40 | disposition home or self-care (01) ==
LOC: ER 15:27
DX: N39.0 Urinary tract infection, site not specified (principal); I10 Essential (primary) hypertension; Z88.1 Allergy status to other antibiotic agents; Z88.2 Allergy status to sulfonamides
CPT/HCPCS: 87088; 85025; 87086; 36415; 81003; 83690; 80053; 74177; 51702; 99284; Q9967; J2270 ×2; J7040; J2405

== ENCOUNTER 2023-01-21 16:42 | Observation (INO) | payer OTHER ==
--- OUTSIDE RECORDS SUMMARY | 2023-01-21 16:52 | XMS REPORT | Continuity of Care Document ---
:1935 Author Organization [facility] t Address [address] [facility] [address] [place] [address] Care Team Providers Name Role Phone ANTONY ANNALISA Sawyer Primary Care Physician Unavailable Triston Shrestha Attending Clinician MIKE GARZA Attending Clinician Unavailable Mike Garza MD Attending Clinician Kayla HAIRSTON, Chen Cotto Attending Clinician MAYI BARTHOLOMEW Attending Clinician Unavailable Mayi Bartholomew Attending Clinician Lillian WOLFF, Dakotah Peña Attending Clinician Unavailable Avani Goodwin Attending Clinician Sree Ramos MD Attending Clinician Diego Herrera MD Attending Clinician Shaun HAIRSTON, Torrey Donnelly Attending Clinician Avani ORDONEZ Attending Clinician Unavailable KEREN MARES Attending Clinician Unavailable Keren Mares DO Attending Clinician Carlos Laguerre Attending Clinician Antoni Reed Attending Clinician MIKE GARZA Admitting Clinician Unavailable Torrey Dunn MD Admitting Clinician KEREN MARES Admitting Clinician Unavailable Carlos Laguerre Admitting Clinician Antoni Reed Admitting Clinician Payers Payer Name Policy Type Policy Number Effective Date Expiration Date S marilin UNITED MEDICARE [id number] 2021 HMO 00:00:00 HUMAN MEDICARE [id number] 2017 2021 ERS 00:00:00 00:00:00 Problems Condition Condition Condition Status Onset Resolution Last Treating Co mments Source Name Details Category Date Date Treatment Clinician Date DR LIU Diagnosis Active 2021-092022-07-03 Mem oria REFERRAL REFERRAL 0 16:50:00 l Active 00:00: Raymond 07/03/[address] [place] [address] Acute Acute Disease Active Univers respirator respirator 8 [place] y of y failure [place] 00 Medical hypoxia hypoxia Branch Pancytopen Pancytopen Disease Active U nivers ia ia 04-16 ity of 00:00: [place] 00 Medical Branch Mild Mild Disease Active Univers protein-ca protein-ca 8 it y of olegario olegario 00:00: [place] malnutriti malnutriti 00 Me dical on on Branch Elevated Elevated Disease Active Unive rs brain brain 8 ity of natriureti natriureti [place] c peptide c peptide 00 Medi gina (BNP) (BNP) Branch level level COVID-19 COVID-19 Disease Active Unive rs 04-15 ity of 00:00: [place] 00 Medical Branch OPEN RIGHT OPEN Diagnosis Active 2018-02-09 Memoria HUMERUS FX RIGHT 02-03 19:37:00 l HUMERUS FX 00:00: [place] n Active 00 02/03/2018 [facility] Common Common Problem Active 2022-12-13 Edinson david peroneal peroneal 3-16 02:53:44 l nerve nerve 00:00: [place] lesion lesion 00 (disorder) (disorder) Active 11/27/2016 Problem 12/13/2022 [facility] GI BLEED, GI BLEED, Diagnosis Active 2015-11-01 Memoria ANEMIA ANEMIA 2-08 21:55:00 l Active 00:00: Raymond 10/22/2015 00 [facility] Localizati Localizat Problem Active 2022-12-13 Memoria on-related ion-relate 1-14 02:53:44 l symptomati d 00:00: [place] n c epilepsy symptomati 00 (disorder) c epilepsy (disorder) Active 09/27/2015 Problem 12/13/2022 [facility] Hypertensi Hypertens Problem Active 2022-12-13 Memoria ve cely 02:53:44 l disorder, disorder, Herm lori systemic systemic arterial arterial (disorder) (disorder) Active Problem 12/13/2022 [facility] Migraine Migraine Problem Active 2022-12-13 Memoria (disorder) (disorder) 02:53:44 l Active Raymond Problem 12/13/2022 [facility] 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 02:53:44 l (disorder) (disorder) He rmann Active Problem 12/13/2022 [facility] Vertigo Vertigo Problem Active 2022-12-13 Me moria (finding) (finding) 02:53:44 l Active Raymond Problem 12/13/2022 [facility] No known No known Disease Unive rs active active ity of problems problems [facility] Anemia Anemia Problem Resolve 2022-04-14 Mem oria (disorder) (disorder) d 02:52:31 l Resolved Raymond Problem 04/14/2022 [facility] Anxiety Anxiety Problem Resolve 2022-04-14 M emoria (finding) (finding) d 02:52:31 l Resolved Raymond Problem 04/14/2022 [facility] Asthma Asthma Problem Resolve 2022-04-14 Mem oria (disorder) (disorder) d 02:52:31 l Resolved Raymond Problem 04/14/2022 [facility] Depressive Depressiv Problem Resolve 2022-04-14 Memoria disorder e disorder d 02:52:31 l (disorder) (disorder) [place] rmann Resolved Problem 04/14/2022 [facility] 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 02:52:31 l (disorder) (disorder) He rmann Resolved Problem 04/14/2022 [facility] Seizure Seizure Problem Resolve 2022-04-14 M emoria (finding) (finding) d 02:52:31 l Resolved [place] Problem 04/14/2022 [facility] GASTROINTE GASTROINT Diagnosis Active 2015-11-01 Memoria STINAL ESTINAL 21:55:00 l HEMORRHAGE HEMORRHAGE He rmann , , UNSPECIFIE UNSPECIFIE D D Active [facility] ANEMIA, ANEMIA, Diagnosis Active 2015-11-01 Memoria UNSPECIFIE UNSPECIFIE 21:55:00 l D D Active Raymond [facility] UNSP UNSP Diagnosis Active 2018-02-09 Mem oria FRACTURE FRACTURE 19:37:00 l OF SHAFT OF SHAFT Valdez downey OF OF HUMERUS, HUMERUS, UNSP UNSP Active [facility] Exacerbati Exacerbat Problem Resolve 2017-2022-04-14 2022-04-14 Memoria on of ion of d 5-12 02:52:31 02:52:31 l multiple multiple 00:00: Valdez downey sclerosis sclerosis 00 (disorder) (disorder) Resolved 01/23/2017 Problem 04/14/2022 [facility] Allergies, Adverse Reactions, Alerts Allergy Allergy Status Severity Reaction(s) Onset Inactive Treating Comm ents Source Name Type Date Date Clinician AMOXICIL Allergy Active Itching 2021-[address] [facility] [address] [facility] 1-17 [facility] CLA[facility] Medical ATE 00 Center Amoxicil Propensi Active Itching 2021-09 [facility] to 1-17 [facility] Clavulan adverse 00:00: Medical ate reaction 00 Center s AMOXICIL DRUG Active ITCHING 2014- Univers CHAPARRITA-POT 7-24 ity of CLAVULAN 00:00: [place] ATE 00 Medical Branch PENICILL Drug Active ITCHING 2014- Univers INS Class 7-24 ity of 00:00: [place] 00 Medical Branch SULFA Drug Active ITCHING 2014-0 Univers (SULFONA Class 7-24 ity of MIDE 00:00: [place] ANTIBIOT 00 Medical ICS) Branch Amoxicil Propensi Active Itching 2014- Unive rs chaparrita-Pot ty to 7-24 ity of Clavulan adverse 00:00: [place] ate reaction 00 Medical s Branch Penicill Propensi Active Itching Unive rs ins ty to 7-24 ity of adverse 00:00: [place] reaction Medical s Branch Sulfa Propensi Active Itching 2014- Univers (Sulfona ty to 7-24 ity of mide adverse 00:00: [place] Antibiot reaction 00 Medica l ics) s Branch Sulfa Drug Active Itching 2014- [facility] (Sulfona Allergy 7-24 [facility] mide 00:00: Medical Antibiot 00 Center ics) Penicill Drug Active Itching [facility] ins Allergy 7-24 [facility] 00:00: Medical 00 Center PENICILL Allergy Active Itching 2014- [facility] INS 7-24 [facility] 00:00: Medical 00 Center SULFA Allergy Active Itching 2014- [facility] (SULFONA 7-24 [facility] MIDE 00:00: Medical ANTIBIOT 00 Center ICS) sulfa sulfa Active Memoria drugs drugs l Raymond Augmenti Augmenti Active Memori a n n l [place] Social History Social Habit Start Date Stop Date Quantity Comments Source History SDOH [facility] Alcohol Comment Medical C enter Exposure to Yes University of SARS-CoV-2 [place] [facility] (event) Branch History of Current smoker [facility] use [facility] Cent[facility] r History SDOH [facility] Alcohol Std Medical Cente r Drinks History SDOH [facility] Alcohol Binge Medical [address] ter Alcohol intake 2022-08-06 2022-08-06 Ex-drinker [facility] 00:00[facility]00 00:00:00 (finding) Medical Center Tobacco use and 2022-07-31 2022-07-[address] [facility] exposure 00:00:00 00:00:00 [facility] History SDOH 2022-07-31 2022-07-[address] [facility] Alcohol Frequency 00:00:00 00:00:00 [facility] Tobacco Comment 2022-07-31 2022-07-31 quit a long time [facility] 00:00:00 00:00:00 ago [facility] Social History 2018-02-04 2018-02-04 [facility] ermann 16:15:22 16:15:22 Sex Assigned At [address] [facility] 00:00:00 00:00:00 [facility] Smoking Status Start Date Stop Date Source Tobacco smoking status 2022-04-11 18:28:20 2022-04-11 18:28:[facility] Medications Ordered Filled Start Stop Current Ordering Indication Dosage Frequency Signature Comments Components Source Medication Medication Date Date Medication? Clinician (SIG) Name Name levETIRAcet Yes = 1 tab, Me moria am 750 mg 3-27 PO, BID, # l oral tablet 17:52: 60 tab, 0 H erm 00 Refill(s), Pharmacy: [facility] #[id number], 167.64, cm, 07/03/22 14:43:00 CDT, Height, 51.5, kg, 07/03/22 14:43:00 CDT, Weight Reyvow 50 Yes 50 mg = 1 Mem oria mg oral 3-01 tab, PO, l tablet 22:00: PRN, PRN Raymond 00 migraine, # 8 tab, 2 Refill(s), Pharmacy: [facility] #[id number], 167.64, cm, 07/03/22 14:43:00 CDT, Height, 51.5, kg, 07/03/22 14:43:00 CDT, Weight carvediloL 2021-09 Yes 3.125mg Take 3.125 [facility] [...] Take [address] (NORVASC) 22 by mouth [facility] 10 MG 17:27: daily. Medical tablet 45 [place] valsartan 2021-09 Yes 160mg QD Take [address] (DIOVAN) 1-22 mg by Lukes 160 MG 17:27: mouth Medical tablet 45 daily. [place] hyoscyamine 2021-09 Yes .125mg Take 0.125 [facility] [...] Yes 1{puff} Inhale [address] propion-becky -22 puff by Lukes meteroL 17:27: mouth via [...] Take [address] (CARAFATE) 22 by mouth 4 Papito es 1 gram [...] MG capsule 17:27: daily. Medic al 45 [place] meclizine 2021-09 Yes 25mg Take [address] (ANTIVERT) -22 by mouth 3 Papito es 25 MG 17:27: (three) Medical tablet 45 times Center daily as needed. amLODIPine 2021-09 Yes 10mg QD Take [address] (NORVASC) -22 by mouth [facility]ukes 10 MG 17:27: daily. Medical tablet 45 [place] valsartan 2021-09 Yes 160mg QD Take [address] (DIOVAN) 1-22 mg by Lukes 160 MG 17:27: mouth Medical tablet 45 daily. [place] hyoscyamine 2021-09 Yes .125mg Take 0.125 CHI [...] tablet 45 (two) Center times daily . traZODone 2021-09 No 150mg QD Take [address] (DESYREL) 1-22 11-22 mg by [facility]ukes 150 MG 13:42: 00:00 mouth Medical tablet 59 :00 nightly. [place] traZODone 2021-09- No 150mg QD Take [address] (DESYREL) 1-22 11-22 mg by Lukes 150 MG 13:42: 00:00 mouth Medical tablet 59 :00 nightly. [place] traZODone 2021-09- No 150mg QD Take [address] (DESYREL) 1-22 11-22 mg by [facility]ukes 150 MG 13:42: 00:00 mouth Medical tablet 59 :00 nightly. [place] traZODone 2021-09- No 150mg QD Take [address] (DESYREL) 1-22 11-22 mg by Lukes 150 MG 13:42: 00:00 mouth Medical tablet 59 :00 nightly. [place] levETIRAcet 2021-09 Yes = 1 tab, Me moria am 750 mg 0-31 PO, BID, # l oral tablet 14:17: 60 tab, 3 H ermann 00 Refill(s), Pharmacy: [facility] #[id number], 167.64, cm, 07/03/22 14:43:00 CDT, Height, 51.5, kg, 07/03/22 14:43:00 CDT, Weight omeprazole 2021-09 Yes 20 mg = 1 Me moria 20 mg oral 0-20 cap, PO, l delayed 22:48: Daily, # Valdez n release 00 14 cap, 1 capsule Refill(s), Pharmacy: [facility] #[id number], 167.64, cm, 07/03/22 14:43:00 CDT, Height, 51.5, kg, 07/03/22 14:43:00 CDT, Weight Carafate 1 2021-09 Yes 1 gm = 1 Mem oria g oral 0-20 tab, PO, l tablet 22:48: QID-Before Cassidy nn 00 Meals, # 28 tab, 0 Refill(s), Pharmacy: [facility] #[id number], 167.64, cm, 07/03/22 14:43:00 CDT, Height, 51.5, kg, 07/03/22 14:43:00 CDT, Weight Reyvow 50 2021-0 Yes 50 mg = 1 Mem oria mg oral 7-29 tab, PO, l tablet 18:54: PRN, PRN Raymond 00 migraine, # 8 tab, 2 Refill(s), Pharmacy: [facility] #[id number], 160.02, cm, 04/11/22 13:42:00 CDT, Height, 68.864, kg, 04/11/22 13:42:00 CDT, Weight Reyvow 50 2021-0 Yes 50 mg = 1 Mem oria mg oral 7-29 tab, PO, l tablet 18:54: PRN, PRN Raymond 00 migraine, # 8 tab, 2 Refill(s), Pharmacy: [facility] #[id number], 160.02, cm, 04/11/22 13:42:00 CDT, Height, 68.864, kg, 04/11/22 13:42:00 CDT, Weight lasmiditan Yes 50 mg = 1 Me moria 50 MG Oral 3-16 tab, PO, l Tablet 21:19: PRN, PRN [place] [Reyvow] 00 migraine, # 8 tab, 2 Refill(s), Pharmacy: [facility] #[id number], 162.56, cm, 11/27/21 15:49:00 CDT, Height, 50.455, kg, 11/27/21 15:49:00 CDT, Weight Levetiracet Yes = 1 tab, Me moria am 750 MG 3-16 PO, BID, # l Oral Tablet 21:19: 60 tab, 6 H ermann 00 Refill(s), Pharmacy: [id number], 162.56, cm, 11/27/21 15:49:00 CDT, Height, 50.455, kg, 11/27/21 15:49:00 CDT, Weight levETIRAcet Yes = 1 tab, Me moria am 750 mg 3-16 PO, BID, # l oral tablet 21:19: 60 tab, 6 H ermann 00 Refill(s), Pharmacy: [facility] #[id number], 162.56, cm, 11/27/21 15:49:00 CDT, Height, 50.455, kg, 11/27/21 15:49:00 CDT, Weight lasmiditan Yes 50 mg = 1 Me moria 50 MG Oral 3-16 tab, PO, l Tablet 21:19: PRN, PRN [place] [Reyvow] 00 migraine, # 8 tab, 2 Refill(s), Pharmacy: [facility] #[id number], 162.56, cm, 11/27/21 15:49:00 CDT, Height, 50.455, kg, 11/27/21 15:49:00 CDT, Weight Levetiracet Yes = 1 tab, Me moria am 750 MG 3-16 PO, BID, # l Oral Tablet 21:19: 60 tab, 6 H ermann 00 Refill(s), Pharmacy: [facility] #[id number], 162.56, cm, 11/27/21 15:49:00 CDT, Height, 50.455, [...] Use 1 Uni vers (NASONEX) 8-05 } [place] in ity of 50 02:23: each [place] [...] Use 1 Uni vers (NASONEX) 8-05 } [place] in ity of 50 02:23: each [place] mcg/actuati 47 nostril as Me dical on nasal needed. Branch spray levETIRAcet Yes 750mg Take 750 U nivers am (KEPPRA) 8-05 mg by ity of 750 mg 02:23: mouth 2 [place] tablet 47 (two) Medical times Branch daily. montelukast 2020- No 10mg Take 10 mg Univers (SINGULAIR) 04-17-04 by mouth ity of 10 mg 16:21: 00:00 daily. [place] tablet 48 :00 Medical Branch QUEtiapine 2020- No 25mg Take 25 mg Univers (SEROQUEL) 04-17-04 by mouth ity of 25 mg 16:21: 00:00 daily. [place] tablet 48 :00 Medical Branch Dexlansopra 2020- No 1{tbl} Take 1 Tab Univers zole 04-17 08-04 by mouth ity of (DEXILANT) 16:21: 00:00 daily. [place] 30 mg CpDM 48 :00 Medical Branch RANITIDINE 2020- No 1{tbl} Take 1 Tab Univers HCL (ZANTAC 04-17-04 by mouth ity of 75 ORAL) 16:21: 00:00 daily. [place] 48 :00 Medical Branch Dexlansopra 2020- No 60mg Take 60 mg Univers zole 04-17-04 by mouth ity of (DEXILANT) 16:21: 00:00 daily. [place] 60 mg CpDM 48 :00 Medical Branch ranitidine 2020- No 150mg Take 150 U nivers (ZANTAC) 8- 08-04 mg by ity of 150 mg 16:21: 00:00 mouth [place] tablet 48 :00 daily. Medical Branch etodolac 2020- No 500mg Take 500 Uni vers (LODINE) 8- 08-04 mg by ity of 500 mg 16:21: 00:00 mouth 2 [place] tablet 48 :00 (two) Medical times [place] daily. losartan 2020- No 50mg Take 50 mg Un chris (COZAAR) 50 04-17 08-04 by mouth ity of mg tablet 16:21: 00:00 daily. [place] 48 :00 [facility] Branch pregabalin Yes 50mg 50 mg, Unive rs (LYRICA) 04-16 Oral, QPM, ity o f capsule 50 22:00: First dose [place] mg 00 on [facility] 04/16/21 at Branch 1700, Until Discontinu ed, Routine proMETHazin 2020- No 12.5mg 12.5 mg, [facility] 04-1603 IV ity of (PHENERGAN) 20:15: 21:05 Piggyback, [place] 12.5 mg in 00 :00 ONCE NOW, Medi gina NaCl 0.9% 1 dose, Branch (NS) 50 mL Pending Sale To [facility] 04/16/21 IV at 1515, piggyback Routine famotidine Yes 20mg 20 mg, Unive rs (PEPCID AC) 04-16 Oral, BID, it y of tablet 20 19:15: First dose [place] mg 00 (after Medical last Branch modificati on) on Pending Sale To [facility] 04/16/21 at 1415, Until Discontinu ed enoxaparin Yes 40mg 40 mg, Unive rs (LOVENOX) 04-16 Subcutaneo ity of injection 15:30: us, Q24H, Fabiano as 40 mg 00 First dose Medical on [facility] 04/16/21 at 1030, Until Discontinu ed, Routine losartan Yes 50mg 50 mg, Univers (COZAAR) 04-16 Oral, ity of tablet 50 14:00: DAILY, [place] mg 00 First dose Medical on [facility] 04/16/21 at 0900, Until Discontinu ed, Routine polyethylen Yes 17g 17 g, Unive rs e glycol 04-16 Oral, ity of 3350 powder 14:00: DAILY, [place] 17 g 00 First dose Medical on [facility] 04/16/21 at 0900, Until Discontinu ed, Routine levETIRAcet Yes 750mg 750 mg, Un chris am (KEPPRA) 04-16 Oral, BID, it y of tablet 750 13:00: First dose [place] mg 00 on [facility] 04/16/21 at Branch 0800, Until Discontinu ed, Routine levothyroxi Yes 125ug 125 mcg, U nivers ne 04-16 Oral, ity of (SYNTHROID) 11:00: QAM-0600, [place] tablet 125 00 First dose Med ical mcg on Thu [place] 04/16/21 at 0600, Until Discontinu ed, Routine [...] No 1{tbl} 1 tablet, Univers -acetaminop 04-16 0805 Oral, ity of hen (NORCO 03:46: 03:45 Q6HPRN, [place] as 5) 5-325 mg 45 :45 Starting Medi gina tablet 1 Thu04/15/21 Branc h tablet at 2246, Until Thu04/17/21 at 2245, Routine, Pain (scale 4-6) iopamidol 202- No [id number] 100mL 100 mL, Univers (ISOVUE 04-16 0803 Intravenou ity o f 370-500 mL) 00:00: 00:00 s, ONCE, 1 [place] injection 00 :00 dose, Mon Medic al 100 mL 04/15/21 at Branch 1900, Routine methocarbam 0 Yes 0 Memori a ol 750 mg 7-16 Refill(s) l oral tablet 18:51: [place] n 00 methocarbam 0 Yes 0 Memori a ol 750 mg 7-16 Refill(s) l oral tablet 18:51: [place] n 00 Levetiracet Yes See Memori a am 750 MG 3-09 Instructio l Oral Tablet 19:22: ns, TAKE 1 [place] 00 TABLET BY MOUTH TWICE DAILY, # 60 tab, 1 Refill(s), Pharmacy: [facility] #[id number], 162.56, cm, 10/06/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, Weight Levetiracet 2019-0 Yes See Memori a am 750 MG 3-30 Instructio l Oral Tablet 15:45: ns, # 480 H ermann 43 tab, TAKE 1 TABLET BY MOUTH TWICE DAILY, Pharmacy: [facility] #[id number] Levetiracet 2020-0 Yes See Memori a am 750 MG 3-30 Instructio l Oral Tablet 15:45: ns, # 480 H ermann 43 tab, TAKE 1 TABLET BY MOUTH TWICE DAILY, Pharmacy: [facility] #[id number] pregabalin 2020-0 Yes 100 mg = 1 M emoria 100 MG Oral 1-23 cap, PO, l Capsule 20:57: Daily, 0 Val[place] n [Lyrica] 00 Refill(s) Lyrica 100 2019-0 Yes 100 mg = 1 M emoria mg oral 1-23 cap, PO, l capsule 20:57: Daily, 0 Valdez n 00 Refill(s) pregabalin 2019-0 Yes 100 mg = 1 M emoria 100 MG Oral 1-23 cap, PO, l Capsule 20:57: Daily, 0 Valdez n [Lyrica] 00 Refill(s) acetaminoph 2018- Yes 1 tab, PO, Memoria en-oxyCODON 7-12 PRN, 0 l E 325 19:31: Refill(s) [place] mg-7.5 mg 00 oral tablet, extended release 12 HR Yes 1 tab, PO, Memori [...] 0 Raymond Coated 00 Refill(s) Capsule [Cymbalta] Amlodipine Yes 5 mg = 1 Mem oria 5 MG Oral 5-10 tab, PO, l Tablet 19:00: Daily, # [place] [Norvasc] 00 30 tab, 0 Refill(s) Norvasc 5 0 Yes 5 mg = 1 Edinson david mg oral 5-10 tab, PO, l tablet 19:00: Daily, # Raymond 00 30 tab, 0 Refill(s) carvedilol Yes 12.5 mg = Me moria 12.5 mg 5-10 1 tab, PO, l oral tablet 19:00: BID, # 180 Raymond 00 tab, 0 Refill(s) Cymbalta 60 Yes 60 mg = 1 M emoria mg oral 5-10 cap, PO, l delayed 19:00: BID, 0 Raymodn release 00 Refill(s) capsule duloxetine Yes 60 mg = 1 Me moria 60 MG 5-10 cap, PO, l Enteric 19:00: BID, 0 [place] Coated 00 Refill(s) Capsule [Cymbalta] carvedilol Yes [...] day, # 180 tab, 1 Refill(s), Pharmacy: [place] [id number] Levetiracet No 750 mg = 1 Memoria am 750 MG 1-03 tab, PO, l Oral Tablet 19:00: BID, X 90 H ermann [Keppra] day, # 180 tab, 1 Refill(s), Pharmacy: [place] [id number] Levetiracet Yes 750 mg = 1 Memoria [...] 5-26 0.4 mL, l mL 16:07: SUB-Q, [place] subcutaneou 00 [id number], s solution X 21 day, # 8 mL, 0 Refill(s), Pharmacy: [place] [address] Ergocalcife Yes 50,000 Edinson david rol 64250 5-26 IntlUnit = l UNT Oral 16:07: 1 cap, PO, Her pearson Capsule 00 Q7D, # 5 cap, 0 Refill(s), Pharmacy: [place] [address] Calcium Yes 1 tab, Memoria Carbonate 5-26 CHEW, BID, l 1250 MG / 16:07: # 60 tab, Her pearson Cholecalcif 00 0 lucia 400 Refill(s), UNT Pharmacy: [facility] [place] [id number] calcium-vit Yes 1 tab, Edinson david spears D 500 5-26 CHEW, BID, l mg-400 intl 16:07: # 60 tab, H ermann units oral 00 0 tablet, Refill(s), [facility] Pharmacy: [place] [address] ergocalcife Yes 50,000 Edinson david rol 50,000 5-26 IntlUnit = l intl units 16:07: 1 cap, PO, H ermann oral 00 Q7D, # 5 capsule cap, 0 Refill(s), Pharmacy: [place] [id number] enoxaparin Yes 40 mg = Edinson david 40 mg/0.4 5-26 0.4 mL, l mL 16:07: SUB-Q, [place] subcutaneou 00 [id number], s solution X 21 day, # 8 mL, 0 Refill(s), Pharmacy: [place] [id number] Ergocalcife Yes 50,000 Edinson david rol 60474 5-26 IntlUnit = l UNT Oral 16:07: 1 cap, PO, Her pearson Capsule 00 Q7D, # 5 cap, 0 Refill(s), Pharmacy: [facility] [place] [id number] Calcium Yes 1 tab, Memoria Carbonate 5-26 CHEW, BID, l 1250 MG / 16:07: # 60 tab, Her pearson Cholecalcif 00 0 lucia 400 Refill(s), UNT Pharmacy: [facility] [place] [id number] oxyCODONE 5 No Notes: Edinson david mg [...] OsCal-D Ergocalcife No Notes: Edinson david rol [id number] 5-25 (Same as: l UNT Oral 12:00: Vitamin D) Her pearson Capsule 00 "Do Not Crush" Ergocalcife No Notes: Edinson david rol [id number] 5-25 (Same as: l UNT Oral 12:00: [...] a 5-25 (Same l 02:00: as:Singula ir) Amitriptyli No Notes: Edinson david ne [...] Memori a 5-25 Route: l 00:10: IVP, [place] 00 Q5Min, Dosing Weight 51.818, kg, PRN [...] Memori a 5-25 Route: l 00:10: IVP, [place] 00 Q2MIN, Dosing Weight 51.818, kg, PRN Narcotic Reversal, Start date: 02/04/18 19:10:00 CDT, Duration: 8 doses or times, Stop date: Limited # of times Hydromorpho 2018-0 No 0.5 mg, Mem oria ne 5-25 Route: l 00:10: IVP, [place] 00 Q5Min, Dosing Weight 51.818, kg, PRN [...] ia 5-25 Route: l 00:10: IVP, ONCE, [place] 00 Dosing Weight 51.818, kg, PRN Nausea & Vomiting, Start date: 02/04/18 19:10:00 CDT Hydralazine 2018-0 No 10 mg, Edinson david 5-25 Route: l 00:10: IVP, [place] 00 Q20Min, Dosing Weight 51.818, kg, PRN [...] david 5-25 Route: l 00:10: IVP, PRN, [place] 00 Dosing Weight 51.818, kg, PRN Benzodiaze pine Reversal, Initial dose, Start date: 02/04/18 19:10:00 CDT, Duration: 30 day, Stop date: 03/06/18 19:09:00 CDT Naloxone 2018-0 No 0.4 mg, Memori a 5-25 Route: l 00:10: IVP, [place] 00 Q2MIN, Dosing Weight 51.818, kg, PRN Narcotic Reversal, Start date: 02/04/18 19:10:00 CDT, Duration: 8 doses or times, Stop date: Limited # of times Hydromorpho 2018-0 No 0.5 mg, Mem oria ne 5-25 Route: l 00:10: IVP, [place] 00 Q5Min, Dosing Weight 51.818, kg, PRN [...] day, Stop date: 03/06/18 19:09:00 CDT ondansetron 2018-0 No Route: IV, Memoria (ANES) 5-24 Drug form: l 23:58: INJ, ONCE, Stop date: 02/04/18 18:58:00 CDT ondansetron 0 No Route: IV, Memoria (ANES) 5-24 Drug form: l 23:58: INJ, ONCE, Stop date: 02/04/18 18:58:00 CDT albuterol No Route: Memori a (ANES) 5-24 INHALATION l 23:16: , Drug form: AERO/A, ONCE, Stop date: 02/04/18 18:16:00 CDT albuterol 2017-0 No Route: Memori a [...] ONCE, Stop date: 02/04/18 17:51:00 CDT dexamethaso 0 No Route: IV, Memoria ne (ANES) 5-24 Drug form: l 22:51: INJ, ONCE, Stop date: 02/04/18 17:51:00 CDT hydromorpho 2017-0 No Route: IV, Memoria [...] ONCE, Stop date: 02/04/18 17:05:00 CDT Lactated 0 No Route: IV, Mem oria Ringers 5-24 Total l Injection 20:35: Volume: Cassidy nn IV (ANES) 00 1,000, 1000 mL Start date: 02/04/18 15:35:00 CDT, Stop date: 02/04/18 16:35:00 CDT Lactated 2017-0 No Route: IV, Mem oria Ringers 5-24 Total l Injection 20:35: Volume: Cassidy nn IV (ANES) 00 1,000, 1000 mL Start date: 02/04/18 15:35:00 CDT, Stop date: 02/04/18 16:35:00 CDT Lovenox 2018-0 No Notes: Memoria 5-24 (Same as: l [...] day, Stop date: 03/05/18 17:00:00 CDT Cymbalta 2017-0 No 30 mg, Memoria 5-24 Route: PO, l 14:00: Drug form: [place] 00 DRC, BID, Dosing Weight 47.001, kg, [...] day, Stop date: 03/05/18 17:00:00 CDT Cymbalta 2018-0 No 30 mg, Memoria 5-24 Route: PO, l 14:00: Drug form: [place] 00 DRC, BID, Dosing Weight 47.001, kg, Start date: 02/04/18 9:00:00 CDT, Duration: 30 day, Stop date: 03/05/18 17:00:00 CDT budesonide- No Notes: Edinson david formoterol 5-24 6411 l 13:00: [place] [address],[phone] Inhale 2 puff(s) by mouth 2 times a day Carlos Chiur_ Don't use after_ budesonide- No Notes: Edinson david formoterol 5-24 6411 l 13:00: [place] [address],[id number] [phone] Inhale 2 puff(s) by mouth 2 times a day Carlos Cihu Mfr_ Don't use after_ Tramadol No Notes: Not Mem oria 5-24 to exceed l 11:00: 400mg/day. (Same As: Ultram) Tramadol No Notes: Not Mem oria 5-24 to exceed l 11:00: 400mg/day. Raymond 00 (Same As: Ultram) Acetaminoph No Notes: Edinson david en 325 MG / 5-24 (Same as: l Hydrocodone 10:55: [place] Cassidy nn Bitartrate 00 325/5) Do 5 MG Oral not exceed Tablet 4gm/day of [[place] acetaminop 5/325] hen. Acetaminoph No Notes: Edinson david en 325 MG / 5-24 (Same as: l Hydrocodone 10:55: [place] Cassidy nn Bitartrate 00 325/5) Do 5 MG Oral not exceed Tablet 4gm/day of [[place] acetaminop 5/325] hen. Ondansetron No Notes: Edinson david 5-24 (Same as: l 10:54: Zofran) MEDICATION WASTE Product Size: 4 mg Product Wasted: ___ mg Acetaminoph No Notes: Edinson david en 325 MG / 5-24 (Same as: l Hydrocodone 10:54: [place] Cassidy nn Bitartrate 00 325/5) Do 5 [...] / 5-24 (Same as: l Hydrocodone 10:54: [place] Cassidy nn Bitartrate 00 325/5) Do 5 MG Oral not exceed Tablet 4gm/day of acetaminop hen. Acetaminoph No Notes: Do M emoria en 5-24 not exceed l 10:54: 4 gm/day. (Same as: Tylenol) Dilaudid 0 No 1 mg, Memoria 5-24 Route: l 10:26: IVP, ONCE, Dosing Weight 47.001, kg, Priority: STAT, Start date: 02/04/18 5:26:00 CDT, Stop date: 02/04/18 5:26:00 CDT Dilaudid No 1 mg, Memoria 5-24 Route: l 10:26: IVP, ONCE, Dosing Weight 47.001, kg, Priority: STAT, Start date: 02/04/18 5:26:00 CDT, Stop date: 02/04/18 5:26:00 CDT Fentanyl No 50 Memoria 5-24 microgram, l 10:21: Route: IVP, ONCE, Dosing Weight 47.001, kg, Priority: STAT, Start date: 02/04/18 5:21:00 CDT, Stop date: 02/04/18 5:21:00 CDT Fentanyl 2017-0 No 50 Memoria 5-24 microgram, l 10:21: Route: IVP, ONCE, Dosing Weight 47.001, kg, Priority: STAT, Start date: 02/04/18 5:21:00 CDT, Stop date: 02/04/18 5:21:00 CDT Fentanyl 2017-0 No 50 Memoria 5-24 microgram, l 09:57: Route: [place] 00 IVP, ONCE, Dosing Weight 47.001, kg, Priority: STAT, Start date: 02/04/18 4:57:00 CDT, Stop date: 02/04/18 4:57:00 CDT Fentanyl No 50 Memoria 5-24 microgram, l 09:57: Route: [place] 00 IVP, ONCE, Dosing Weight 47.001, kg, Priority: STAT, Start date: 02/04/18 4:57:00 CDT, Stop date: 02/04/18 4:57:00 CDT Ancef No Notes: Memoria 5-24 (Same As: l 08:51: Ancef, [place] Kefzol) MEDICATION WASTE Product Size: 1000 mg Product Wasted: ___ mg Ancef No Notes: Memoria 5-24 (Same As: l 08:51: Ancef, [place] Kefzol) MEDICATION WASTE Product Size: 1000 mg Product Wasted: ___ mg Fentanyl No Notes: Memoria 5-24 (Same as: l 08:49: Sublimaze) [place] 00 Preservati ve free. Fentanyl No Notes: Memoria 5-24 (Same as: l 08:49: Sublimaze) [place] 00 Preservati ve free. NexIUM 5 mg Yes 5 mg = 1 Me moria oral powder 3-13 ea, PO, l for 15:22: Daily, 0 [place] reconstitut 00 Refill(s) ion, delayed release Advair HFA Yes 2 puff, Edinson david 45 mcg-21 3-13 INHALATION l mcg/inh 15:22: , BID, 0 [place] n inhalation 00 Refill(s) aerosol with adapter ferrous Yes 325 mg = 1 Edinson [...] oria 2-12 IV push l 23:00: reconstitu [place] 00 te with 10 ml 0.9% sodium [...] Rate: On l 0.9% 22:16: call for [place] (titrate) 00 use with 250 mL blood product administra tion, Dosing Weight 47.001, kg, Route: IV, Total Volume: 250, Start Date: 10/25/15 16:16:00, Duration: 30 day, Stop date: 11/24/15 16:15:00, Replace Every: 24 hr Sodium 2016-0 No 250 mL, Memoria Chloride 2-11 Rate: On l 0.9% 22:16: call for [place] (titrate) 00 use with 250 mL blood product administra tion, Dosing Weight 47.001, kg, Route: IV, Total Volume: 250, Start Date: 10/25/15 16:16:00, Duration: 30 day, Stop date: 11/24/15 16:15:00, Replace Every: 24 hr Sodium 2016-0 No 100 mL, Memoria Chloride 2-11 Rate: 10 l 0.154 20:40: ml/hr, [place] MEQ/ML 00 Infuse Injectable over: 10 Solution hr, Route: IVPB, Dosing Weight 47.001 kg, Total Volume: 100, Infuse at 8 mg / hr for 72 hours for GI bleeding, Start date: 10/25/15 14:40:00, Duration: 72 hr, Stop date: 10/28/15 14:39:00 Sodium 2016-0 No 100 mL, Memoria Chloride 2-11 Rate: 10 l 0.154 20:40: ml/hr, [place] MEQ/ML 00 Infuse Injectable over: 10 Solution hr, Route: IVPB, Dosing Weight 47.001 kg, Total Volume: 100, Infuse at 8 mg / hr for 72 hours for GI bleeding, Start date: 10/25/15 14:40:00, Duration: 72 hr, Stop date: 10/28/15 14:39:00 Reglan No Notes: Memoria 2-11 (Same as: l 18:00: Reglan) [place] 00 Reglan No Notes: Memoria 2-11 (Same as: l 18:00: Reglan) [place] 00 Morphine No Notes: Memoria 2-11 (Same l 14:51: as:MORPhin [place] 00 e Sulfate) Morphine No Notes: Memoria 2-11 (Same l 14:51: as:MORPhin [place] 00 e Sulfate) Calcium No Notes: Memoria Carbonate 2-11 (Same As: l 500 MG 08:39: Tums) [place] Chewable 00 Calcium Tablet Carbonate 500 mg = 200 mg elemental calcium Dose = mg calcium carbonate ( mg elemental calcium) Magnesium No Notes: Memori a Sulfate 2-11 WASTE: F/P l 08:39: - Sink; E [place] 00 - Municipal Trash Bin Neutra-Phos No Notes: Edinson david 2-11 (Same as: l 08:39: Neutra-Mary [place] 00 s) Each 1.25 gm pkt has 250mg phosphorou s. Mix w/2.5oz water and stir. Calcium No Notes: Memoria Gluconate 2-11 WASTE: F/P l 08:39: - Sink; E [place] - Municipal Trash Bin Magnesium No Notes: Memori a Oxide 2-11 (Same as: l 08:39: Mag-Ox [place] 00 400) Magnesium oxide 400ix=930s g elemental magnesium Dose=____m g magnesium oxide (___mg elemental magnesium) potassium No Notes: Memori a phosphate 2-11 (Same as: l 08:39: K [place] 00 Phosphate. ) sodium No 30 mmol, Memoria phosphate 2-11 250 mL, l 08:39: Route: [place] 00 IVPB, Drug form: INJ, PRN, Dosing [...] 2-11 (Same as: l 08:39: K-Dur 20) [place] 00 "Do Not Crush" With food and [...] Oxide 2-11 (Same as: l 08:39: Mag-Ox [place] 00 400) Magnesium oxide 488cc=453u g elemental magnesium Dose=____m g magnesium oxide (___mg elemental magnesium) potassium No Notes: Memori a phosphate 2-11 (Same as: l 08:39: K [place] 00 Phosphate. ) sodium No 30 mmol, Memoria phosphate 2-11 250 mL, l 08:39: Route: [place] IVPB, Drug form: INJ, PRN, Dosing Weight 47.001, kg, PRN Abnormal Lab Result, Start date: 10/25/15 2:39:00, Duration: 30 day, Stop date: 11/24/15 2:38:00, FOR ICU USE ONLY sodium No 45 mmol, Memoria phosphate + 2-11 15 mL, l Sodium 08:39: Route: Chloride 00 IVPB, PRN, 0.9% IV 250 Dosing mL Weight 47.001, kg, PRN Abnormal Lab Result, Start date: 10/25/15 2:39:00, Duration: 30 day, Stop date: 11/24/15 2:38:00, FOR ICU USE ONLY potassium No Notes: Memori a phosphate + 2-11 (Same as: l Sodium 08:39: K [place] Chloride Phosphate. 0.9% IV 250 ) 1 [...] Memoria Sulfate 2-10 (Same l 21:27: as:MORPhin [place] 00 e Sulfate) morphine No Notes: Memoria Sulfate 2-10 (Same l 21:27: as:MORPhin [place] 00 e Sulfate) Phenergan No Notes: Do Mem oria 2-10 not give l 21:26: IV push. [place] (Same as: Phenergan) Phenergan No Notes: Do Mem oria 2-10 not give l 21:26: IV push. [place] 00 (Same as: Phenergan) carvedilol No Notes: Memor ia 2-10 Give with l 15:00: food. Raymond (Same As: Coreg) 24 HR No 500 [...] ia 2-10 Give with l 15:00: food. [place] 00 (Same As: Coreg) 24 HR No [...] No Notes: Memoria Clonidine 2-10 Patch l 0.00116 14:44: delivers [place] n MG/HR 00 0.1 mg/24 Transdermal hours; Patch Patch is applied weekly. "Remove old patch before applicatio n of new patch" (Same As: Catapres-T TS-1) Advair No Notes: Memoria Diskus 500 2-10 (Same as: l mcg-50 mcg 14:44: Advair) Herm lori inhalation 00 powder 168 HR No Notes: Memoria Clonidine 2-10 Patch l 0.65478 14:44: delivers [place] n MG/HR 00 0.1 [...] david 2-10 (Same as: l 13:56: Levsin) Take 30 min before meal Acetaminoph No Notes: Edinson davdi en 325 MG / 2-10 (Same as: l Hydrocodone 13:55: [place] Cassidy nn Bitartrate 00 325/5) Do 5 MG Oral not exceed Tablet 4gm/day of [[place] acetaminop 5/325] hen. Alprazolam No Notes: Memor ia 0.25 MG 2-10 With food l Oral Tablet 13:55: or milk Her pearson 00 (Same as: Xanax) Acetaminoph No Notes: Edinson david en 325 MG / 2-10 (Same as: l Hydrocodone 13:55: [place] Cassidy nn Bitartrate 00 325/5) Do 5 MG Oral not exceed Tablet 4gm/day of [[place] acetaminop 5/325] hen. Alprazolam No Notes: Memor [...] ia 2-10 (Same as: l 04:43: Norvasc) Amlodipine No Notes: Memor ia 2-10 (Same as: l 04:43: Norvasc) [place] Cardene 40 No Notes: Memor ia mg [...] a 2-10 (Same as: l 04:42: Normodyne, [place] 00 Trandate) Push over 2 minutes Give [...] Sublimaze) [place] 00 Preservati ve free. midazolam 0 No Notes: Memori a 2-09 (Same as: l 23:30: Versed) [place] 00 MEDICATION WASTE Product Size: 2 mg Product Wasted: ___ mg Thyroxine No Notes: Memori a 2-09 Take 1 l 12:30: hour [place] 00 before or 2 hours after meal; Enteral feeds may interefere with the absorption of this medication . (Same as:Levothr oid) Thyroxine No Notes: Memori a 2-09 Take 1 l 12:30: hour [place] 00 before or 2 hours after meal; Enteral feeds may interefere with the absorption of this medication . (Same as:Levothr oid) Sublimaze No Notes: Memori a 2-09 (Same as: l 03:47: Sublimaze) [place] 00 Preservati ve free. Sublimaze No Notes: Memori a 2-09 (Same as: l 03:47: Sublimaze) [place] 00 Preservati ve free. Saline No Notes: Memoria Flush 0.9% 2-09 (Same as: l 03:00: BD [place] 00 Posiflush) sennosides, No Notes: Edinson david [facility] 2-09 (Same as: l 03:00: Senokot) [place] 00 Docusate No Notes: Memoria 2-09 (Same as: l 03:00: Colace) [place] 00 (Do Not Crush) Singulair No Notes: Memori a 2-09 (Same l 03:00: as:Singula [place] 00 ir) Saline No Notes: Memoria Flush 0.9% 2-09 (Same as: l 03:00: BD [place] 00 Posiflush) sennosides, No Notes: Edinson david [facility] 2-09 (Same as: l 03:00: Senokot) [place] 00 Docusate No Notes: Memoria 2-09 (Same as: l 03:00: Colace) [place] 00 (Do Not Crush) Singulair No Notes: Memori a 2-09 (Same l 03:00: as:Singula [place] 00 ir) budesonide- No Notes: Edinson david formoterol 2-08 (Same as: l 160 mcg-4.5 23:00: Symbicort) [place] mcg/inh 00 WASTE: inhalation Aerosol - aerosol Return to with Pharmacy adapter Seroquel No Notes: Memoria 2-08 (Same as: l 23:00: SEROquel) [place] 00 Levetiracet No Notes: Edinson david am 750 MG 2-08 Same as: l Oral Tablet 23:00: Keppra Herm lori [Keppra] 00 Cymbalta No Notes: Memoria 2-08 (Same as: l 23:00: Cymbalta) [place] 00 (Do Not Crush) Advair No 1 puff, Memoria Diskus 500 2-08 Route: l mcg-50 mcg 23:00: INHALATION H ermann inhalation 00 , Drug powder Form: AERO, Dosing Weight 47.001, kg, BID, Start date: 10/22/15 17:00:00, Duration: 30 day, Stop date: 11/21/15 9:00:00 budesonide- No Notes: Edisnon david formoterol 2-08 (Same as: l 160 mcg-4.5 23:00: Symbicort) [place] mcg/inh 00 WASTE: inhalation Aerosol - aerosol Return to with Pharmacy adapter Seroquel No Notes: Memoria 2-08 (Same as: l 23:00: SEROquel) [place] 00 Levetiracet No Notes: Edinson david am [...] 00 0 5 MG Oral Refill(s) Tablet [[place] 5/325] carvedilol Yes 3.125 mg = M emoria 3.125 mg 2-08 1 tab, PO, l oral tablet 19:51: BID, # 180 [place] 00 tab, 1 Refill(s) dexlansopra No 60 [...] 1 patch, Memoria Clonidine 2-08 TOP, l 0.26484 19:51: qWeek, # [place] n MG/HR 00 [...] tab, PO, l tablet 19:51: TID, PRN [place] 00 for dizziness, # 60 tab, 0 Refill(s) Nexium No 40 mg, PO, Memor ia 2-08 Daily, 0 l 19:51: Refill(s) [place] 00 Alprazolam Yes 0.25 mg = Me moria 0.25 MG 2-08 1 tab, PO, l Oral Tablet 19:51: TID, PRN He rmann 00 Anxiety, # 30 tab, 0 Refill(s) hyoscyamine Yes 0.125 mg = Memoria 0.125 mg 2-08 1 tab, SL, l sublingual 19:51: Q6H, PRN Her pearson tablet 00 Spasms, # 30 tab, 0 Refill(s) levocetiriz Yes 5 mg = 1 Me moria ine 5 mg 2-08 tab, PO, l oral tablet 19:51: Bedtime, He rmann 00 PRN as needed for allergy symptoms, # 30 tab, 0 Refill(s) ibandronic No 150 mg = 1 M emoria acid 150 MG 2-08 tab, PO, l Oral Tablet 19:51: qMonth, Her pearson [Boniva] 00 Swallow whole w/6-8oz water 1HR before first food, drink, med-Do not lie down for 1HR & until after first food, # 1 tab, 0 Refill(s) Acetaminoph 2016 Yes 2 tab, PO, Memoria en 325 MG / 2-08 Q6H, PRN l Hydrocodone 19:51: for pain, H ermann Bitartrate 00 0 5 MG Oral Refill(s) Tablet [[place] 5/325] carvedilol Yes 3.125 mg = M [...] 1 patch, Memoria Clonidine 2-08 TOP, l 0.20582 19:51: qWeek, # [place] n MG/HR 00 12 patch, Transdermal 0 Patch Refill(s) quetiapine Yes 25 mg = 1 Me moria 25 MG Oral 2-08 tab, PO, l Tablet 19:51: BID, 0 [place] [Seroquel] 00 Refill(s) linaclotide Yes 145 Memori a 0.145 MG 2-08 microgram l Oral 19:51: = 1 cap, [place] Capsule 00 PO, Daily, [Linzess] 30 minutes [...] tab, PO, l tablet 19:51: TID, PRN [place] 00 for dizziness, # 60 tab, 0 [...] PO, l oral tablet 19:49: Bedtime, # [place] 00 30 tab, 1 Refill(s) Advair Yes 1 puff, Memoria Diskus 500 2-08 INHALATION l mcg-50 mcg 19:49: , BID, # 1 H ermann inhalation 00 ea, 3 powder Refill(s) Amlodipine Yes 5 mg, PO, Me moria 2-08 BID, 0 l 19:49: Refill(s) [place] 00 levothyroxi Yes 25 Memori a ne 25 mcg 2-08 microgram l (0.025 mg) 19:49: = 1 tab, Her pearson oral tablet 00 PO, Daily, # 30 tab, 1 Refill(s) amitriptyli Yes 25 mg = 1 [...] moria 2-08 BID, 0 l 19:49: Refill(s) [place] 00 Sodium No 100 mL, Memoria Chloride 2-08 Rate: 10 l 0.154 18:59: ml/hr, [place] MEQ/ML 00 Infuse Injectable over: 10 Solution hr, Route: IVPB, Dosing Weight 47.001 kg, Total Volume: 100, Infuse at 8 mg / hr for 72 hours for GI bleeding, Start date: 10/22/15 12:59:00, Duration: 72 hr, Stop date: 10/25/15 12:58:00 Sodium No 100 mL, Memoria Chloride 08 [...] 0.9% 2-08 (Same as: l 18:55: BD [place] 00 Posiflush) Saline No Notes: Memoria Flush 0.9% 2-08 (Same as: l 18:55: BD [place] 00 Posiflush) levETIRAcet Yes 750mg Take 750 [...] mouth ity of mg tablet 21:44: daily. [place] [facility] carvedilol Yes 6.25mg Take [...] Use 1 Uni vers (NASONEX) 7-29 } [place] in ity of 50 21:44: each [place] mcg/actuati 53 nostril as Me dical on nasal needed. Branch spray Dexlansopra Yes 60mg Take 60 mg Univers zole 7-29 by mouth ity of (DEXILANT) 21:44: daily. [place] 60 mg CpDM [facility] ranitidine Yes 150mg Take 150 Un chris (ZANTAC) 7-29 mg by ity of 150 mg 21:44: mouth [place] tablet 53 daily. Medical Branch Vital Signs [...] 144 mm[Hg] Univer sity of pressure [facility] Diastolic blood 2021-04-17 20:14:00 86 mm[Hg] Unive rsity of pressure [facility] Heart rate 2021-04-17 20:14:00 63 /min [facility] Body temperature 2021-04-17 20:14:00 36.61 Laxmi [facility] Respiratory rate 2021-04-17 20:14:00 18 /min [facility] Oxygen saturation in 2021-04-17 20:14:00 93 /min [facility] Arterial blood by [facility] Pulse oximetry Branch Body height 2021-04-16 03:29:00 167.6 cm [facility] Body weight 2021-04-16 03:29:00 48.988 kg [facility] [place] [facility] BMI 2021-04-16 03:29:00 17.43 kg/m2 [facility] [place] [facility] Systolic blood 2021-04-17 20:14:00 144 mm[Hg] Univer sity of pressure [place] [facility] Diastolic blood 2021-04-17 20:14:00 86 mm[Hg] Unive rsity of pressure [place] [facility] Heart rate 2021-04-17 20:14:00 63 /min [facility] [place] [facility] Body temperature 2021-04-17 20:14:00 36.61 Laxmi [facility] [place] [facility] Respiratory rate 2021-04-17 20:14:00 18 /min [facility] [place] [facility] Oxygen saturation in 2021-04-17 20:14:00 93 /min [facility] Arterial blood by [employer] [facility] Pulse oximetry Branch Body height 2021-04-16 03:29:00 167.6 cm [facility] [place] [facility] Body weight 2021-04-16 03:29:00 48.988 kg [facility] [place] [facility] BMI 2021-04-16 03:29:00 17.43 kg/m2 [facility] [place] [facility] Systolic blood 2020-03-02 00:23:00 135 mm[Hg] Univer sity of pressure [place] [facility] Diastolic blood 2020-03-02 00:23:00 67 mm[Hg] Unive rsity of pressure [place] [facility] Heart rate 2020-03-02 00:23:00 67 /min [facility] [place] [facility] Respiratory rate 2020-03-02 00:23:00 20 /min [facility] [place] [facility] Oxygen saturation in 2020-03-02 00:23:00 99 /min [facility] Arterial blood by [place] [facility] Pulse oximetry Branch Body temperature 2020-03-01 21:25:00 36.33 Laxmi [facility] [place] [facility] Body height 2020-03-01 21:25:00 165.1 cm [facility] [place] [facility] Body weight 2020-03-01 21:25:00 46.72 kg [facility] [place] [facility] BMI 2020-03-01 21:25:00 17.14 kg/m2 [facility] [place] [facility] Systolic blood 2020-03-02 00:23:00 135 mm[Hg] Univer [facility]ity of [facility] Diastolic blood 2020-03-02 00:23:00 67 mm[Hg] Unive rsity of [facility] Heart rate 2020-03-02 00:23:00 67 /min Universi ty [facility] Respiratory rate 2020-03-02 00:23:00 20 /min [facility] Oxygen saturation in 2020-03-02 00:23:00 99 /min University Arterial blood by [facility] Pulse oximetry Branch Body temperature 2020-03-01 21:25:00 36.33 Laxmi [facility] Body height 2020-03-01 21:25:00 165.1 cm [facility] Body weight 2020-03-01 21:25:00 46.72 kg [facility] BMI 2020-03-01 21:25:00 17.14 kg/m2 [facility] Systolic blood 2022-08-05 16:31:00 86 mm[Hg] [facility] Diastolic blood 2022-08-05 16:31:00 61 mm[Hg] [facility] Heart rate 2022-08-05 16:31:00 68 /min [facility] Respiratory rate 2022-08-05 16:31:00 16 /min [facility] Oxygen saturation in 2022-08-05 16:31:00 92 /min [facility] [place] [facility] Arterial blood by Medical nter Pulse oximetry Body temperature 2022-08-05 16:15:00 36.61 Laxmi [facility] Body height 2022-08-05 13:26:00 167.6 cm [facility] Body weight 2022-08-05 13:26:00 49.261 kg [facility] BMI 2022-08-05 13:26:00 17.53 kg/m2 [facility] Systolic (mm Hg) 2022-07-03 23:12:00 Edinson lares [place] Diastolic (mm Hg) 2022-07-03 23:12:00 Mem orial [place] Heart Rate 2022-07-03 23:12:00 [facility] Temperature Oral (F) 2022-07-03 23:12:00 97.1 F [facility] [place] Height 2022-07-03 19:43:00 167.64 cm [facility] [place] BMI Calculated 2022-07-03 19:43:00 Memori al [place] Weight 2022-07-03 19:43:00 [facility] [place] Systolic (mm Hg) 2022-04-11 18:27:00 Edinson rial [place] Diastolic (mm Hg) 2022-04-11 18:27:00 Mem orial [place] Heart Rate 2022-04-11 18:27:00 [facility] [place] Respitory Rate 2022-04-11 18:27:00 Memori al [place] Height 2022-04-11 18:27:00 160.02 cm [facility] [place] Weight 2022-04-11 18:27:00 [facility] [place] BMI Calculated 2022-04-11 18:27:00 Memori al [place] Systolic (mm Hg) 2021-11-27 20:49:00 Edinson rial [place] Diastolic (mm Hg) 2021-11-27 20:49:00 Mem orial [place] Heart Rate 2021-11-27 20:49:00 [facility] Respitory Rate 2021-11-27 20:49:00 [facility] Height 2021-11-27 20:49:00 162.56 cm [facility] Weight 2021-11-27 20:49:00 [facility] BMI Calculated 2021-11-27 20:49:00 [facility] Systolic (mm Hg) 2021-03-29 18:46:00 [facility] Diastolic (mm Hg) 2021-03-29 18:46:00 [facility] Heart Rate 2021-03-29 18:46:00 [facility] Respitory Rate 2021-03-29 18:46:00 [facility] Systolic (mm Hg) 2019-10-06 20:08:00 [facility] Diastolic (mm Hg) 2019-10-06 20:08:00 [facility] Heart Rate 2019-10-06 20:08:00 [facility] Respitory Rate 2019-10-06 20:08:00 [facility] Height 2019-10-06 20:08:00 162.56 cm [facility] Weight 2019-10-06 20:08:00 [facility] BMI Calculated 2019-10-06 20:08:00 [facility] Weight 2019-03-25 18:58:00 [facility] BMI Calculated 2019-03-25 18:58:00 [facility] Height 2019-03-25 18:58:00 167.64 cm [facility] [place] Systolic (mm Hg) 2019-03-25 18:58:00 [place] [facility] [place] Diastolic (mm Hg) 2019-03-25 18:58:00 Mem [facility] [place] Heart Rate 2019-03-25 18:58:00 [facility] [place] Respitory Rate 2019-03-25 18:58:00 [facility] [place] BMI Calculated 2019-01-21 18:35:00 [facility] [place] Weight 2019-01-21 18:35:00 [facility] [place] Height 2019-01-21 18:35:00 167.64 cm [facility] Respitory Rate 2019-01-21 18:35:00 [facility] [place] Heart Rate 2019-01-21 18:35:00 [facility] Systolic (mm Hg) 2019-01-21 18:35:00 [place] Diastolic (mm Hg) 2019-01-21 18:35:00 Mem o[facility] [place] BMI Calculated 2018-12-30 14:25:00 [facility] [place] Weight 2018-12-30 14:25:00 [facility] [place] Height 2018-12-30 14:25:00 167.64 cm [facility] Systolic (mm Hg) 2018-12-30 14:25:00 [place] rial [place] Diastolic (mm Hg) 2018-12-30 14:25:00 Mem orial [place] Respitory Rate 2018-12-30 14:25:00 [facility] [place] Heart Rate 2018-12-30 14:25:00 [facility] Systolic (mm Hg) 2018-10-19 22:38:00 [place] rial [place] Diastolic (mm Hg) 2018-10-19 22:38:00 Mem orial [place] Heart Rate 2018-10-19 22:38:00 [facility] [place] Respitory Rate 2018-10-19 22:38:00 [facility]ori [facility] [place] Height 2018-10-19 22:38:00 167.64 cm [facility] Weight 2018-10-19 22:38:00 [facility] [place] BMI Calculated 2018-10-19 22:38:00 [facility] [place] Temperature Oral (F) 2018-02-06 17:35:00 99.2 F [facility] Heart Rate 2018-02-06 17:35:00 [facility] Respitory Rate 2018-02-06 17:35:00 [facility] [place] Systolic (mm Hg) 2018-02-06 17:35:00 [place] rial [place] Diastolic (mm Hg) 2018-02-06 17:35:00 Mem o[facility] [place] Heart Rate 2018-02-06 12:40:00 [facility] [place] Respitory Rate 2018-02-06 12:40:00 [facility] [place] Systolic (mm Hg) 2018-02-06 12:40:00 [place] Diastolic (mm Hg) 2018-02-06 12:40:00 Mem o[facility] [place] Temperature Oral (F) 2018-02-06 12:40:00 98.5 F [facility] [place] Respitory Rate 2018-02-06 08:12:00 [facility] [place] Heart Rate 2018-02-06 08:12:00 [facility] [place] Temperature Oral (F) 2018-02-06 08:12:00 97.8 F [facility] [place] Systolic (mm Hg) 2018-02-06 08:12:00 [place] Diastolic (mm Hg) 2018-02-06 08:12:00 Mem o[facility] [place] Height 2018-02-05 02:47:00 167.64 cm [facility] Weight 2018-02-05 02:47:00 [facility] [place] BMI Calculated 2018-02-05 02:47:00 [facility] [place] BMI Calculated 2018-02-04 15:52:00 [facility] [place] Weight 2018-02-04 15:52:00 [facility] [place] Height 2018-02-04 15:52:00 167.64 cm [facility] Respitory Rate 2015-10-28 14:00:00 [facility] [place] Systolic (mm Hg) 2015-10-28 14:00:00 [place] Diastolic (mm Hg) 2015-10-28 14:00:00 Mem o[facility] [place] Temperature Oral (F) 2015-10-28 14:00:00 98.1 F [facility] Heart Rate 2015-10-28 14:00:00 [facility] [place] Respitory Rate 2015-10-28 10:00:00 [facility] [place] Systolic (mm Hg) 2015-10-28 10:00:00 [place] [place] Diastolic (mm Hg) 2015-10-28 10:00:00 [facility] [place] Heart Rate 2015-10-28 10:00:00 [facility] [place] Temperature Oral (F) 2015-10-28 10:00:00 97.9 F [facility] Respitory Rate 2015-10-28 06:00:00 [facility] [place] Heart Rate 2015-10-28 06:00:00 [facility] [place] Temperature Oral (F) 2015-10-28 06:00:00 97.6 F [facility] [place] Systolic (mm Hg) 2015-10-28 06:00:00 [place] Diastolic (mm Hg) 2015-10-28 06:00:00 Mem [facility] [place] Height 2015-10-27 02:52:00 152[facility]4 [facility] Height 2015-10-22 18:39:00 165.1 cm [facility] Weight 2015-10-22 18:39:00 [facility] [place] BMI Calculated 2015-10-22 18:39:00 [facility] al [place] Procedures Procedure Date / Time Performing Source Performed Clinician [place] ERCP 2022-08-05 Mike Garza Gagandeep [facility] 16:07:00 [facility] REPORT OF PROCEDURE - ENDOSCOPY 2022-08-05 Mike Garza Min h [facility] URL 16:01:37 [facility] ENDOSCOPIC RETROGRADE 2022-08-05 Mike Garza [facility] CHOLANGIOPANCREATOGRAPHY 15:43:00 [facility] (ENDOSCOPIC RETROGRADE CHOLANGIOPANCREATOGRAPHY) PROCEDURE W/ C-ARM 2022-08-05 Mike Garza [facility] 15:43:00 [facility] ERCP, WITH SPHINCTEROTOMY 2022-08-05 Mike Garza Gagandeep [facility] 15:43:00 [facility] ERCP, WITH BALLOON SWEEP OF BILE 2022-08-05 Mike Garza Gianna nh [facility] DUCTS 15:43:00 [facility] BASIC METABOLIC PANEL (NA, K, 2021-04-16 Raul Ramírez [facility], CO2, GLUCOSE, BUN, 11:16:00 [place] [facility] CREATININE, [place]) Branch ADC,CLC OR LCC ONLY - INFLUENZA 2021-04-15 Avani Ordonez [facility] A & B DIRECT ANTIGEN 23:26:[address] [facility] [address] CHEST PULMONARY ANGIOGRAM 2021-04-15 Avani Ordonez Uni versity of 22:54:30 [facility] COVID-19 (ID NOW RAPID TESTING) 2021-04-15 Avani Ordonez of 21:15:00 [facility] LAB ONLY COVID INTERPRETATION 2021-04-15 Avani Ordonez Un iversity of 21:15:00 [facility] LACTIC ACID WHOLE BLOOD 2021-04-15 [facility]donez [facility] 21:11:00 [facility] MAGNESIUM 2021-04-15 Avani Ordonez of 21:10:00 [facility] COMP. METABOLIC PANEL (37235) 2021-04-15 Avani Ordonez Un iversity of 21:10:00 [facility] CBC WITH DIFF 2021-04-15 Avani Ordonez of 21:10:00 [facility] GLYCOSYLATED HEMOGLOBIN (A1C) 2021-04-15 Diego Herrera Un iversity of 21:10:00 [facility] PROTHROMBIN TIME / INR 2021-04-15 Avani Ordonezit y of 21:10:00 [facility] D-DIMER 2021-04-15 Avani Ordonez of 21:10:00 [facility] ACTIVATED PARTIAL THRMPLAS SUKI 2021-04-15 Avani Ordonez U [facility]iversity of 21:10:00 [facility] N-TERMINAL PRO-BNP 2021-04-15 Avani Ordonez [facility] 21:10:00 [facility] HB ECG ROUTINE & RHYTHM STRIP 2021-04-15 Avani Ordonez Un iversity of 21:00:18 [facility] TROPONIN I 2020-03-01 Keren Mares [facility] 22:18:00 [facility] HEPATIC FUNCTION PANEL (71566) 2020-03-01 Keren Mares [facility] (ALB,T.PRO,BILI 22:18:00 [facility],BU/BC,ALT,AST,ALK PHOS) Branch BASIC METABOLIC PANEL (NA, K, 2020-03-01 Keren Mares [facility] of CL, CO2, GLUCOSE, BUN, 22:18:00 [facility] ical CREATININE, CA) Branch CBC WITH DIFFERENTIAL 2020-03-01 Keren Mares Univers ity of 22:18:00 [facility] N-TERMINAL PRO-BNP 2020-03-01 Keren Mares [facility] 22:18:00 [facility] COVID-19 (ID NOW RAPID TESTING) 2020-03-01 Keren Mares [facility] 22:18:00 [facility] NOTICE OF PRIVACY PRACTICES 2020-03-01 Doctor Unassigned, niversity of 21:12:20 [place] [facility] CONSENT/REFUSAL FOR DIAGNOSIS 2020-03-01 Doctor Unassigned, [facility] AND TREATMENT 21:11:40 [place] [facility] Hysterectomy [facility] Elbow maneuver [facility] Arthroscopy of knee [facility] Repair of shoulder [facility] Appendectomy [facility] Plan of Care Planned Activity Planned Date [...] Cessation Counseling and Screening (12+)] Future Scheduled 2023-05-[address] [facility] Test 00:00:00 (Season Ended) [code = [facility] INFLUENZA VACCINE (Season Ended)] Future Scheduled 2022-09-[address] [...] YEAR if no IPPE)] Future Scheduled 2022-09-14 [place] [facility]ISK SCREENING [facility] [...] Center DEPRESSION SCREENING (12+)] Future Scheduled 2022-09-[address] [...] Date/Time Type Type Clinicians Facility Department ID 2022-12-10 2022-12-10 Ambulatory MHIE MNA [id number] Memoria 20:00:00 20:00:00 Pre-Reg Neurology 25 l Kelin Andrade 2022-12-10 2022-12-10 Outpatient MHIE MHIE [id number] Memoria 15:00:00 15:00:00 25 l Raymond 2022-12-10 2022-12-10 Outpatient SUZIE ShresthaMISCHER MHMISCHER [id number] 15:00:00 15:00:00 [place] 25 [place] 2022-08-05 2022-08-05 Outpatient Royce ORDONEZ [id number] 13:01:00 23:59:00 Charley Medicin boogie 2022-08-05 2022-08-05 Outpatient KAYLA [facility] Surgery [id number] [facility] 13:01:00 17:26:00 MIKE 2022-08-05 2022-08-05 [facility] [id number] 13:01:00 17:26:00 Encounter [facility] 2022-08-05 2022-08-05 [id number] 13:01:00 17:26:00 Encounter [facility] 2022-08-05 2022-08-05 Anesthesia Garza, [facility] [id number] 15:43:00 16:16:00 Event [facility] 2022-08-05 2022-08-05 Anesthesia Garza, [facility] [id number] 15:43:00 16:16:00 Event [facility] 2022-08-05 2022-08-05 Surgery Garza, [facility] [id number] 15:00:00 16:00:00 [facility] 2022-08-05 2022-08-05 Surgery Garza, [facility] [id number] 15:00:00 16:00:00 [facility] 2022-08-05 2022-08-05 Travel [facility] [id number] [facility]00 00:00:00 [facility] 2022-08-05 2022-08-05 Travel [facility] [id number] [facility] 00:[facility]:00 00:00:00 [facility] 2022-07-31 2022-07-31 Outpatient EL SLE SLE[facility] [id number] [facility] 11:59:14 23:59:00 2022-07-31 2022-07-31 [facility] [id number] 11:40:00 23:59:00 Encounter [facility] 2022-07-31 2022-07-31 [facility] [id number] 11:40:00 23:59:00 Encounter [facility] 2022-07-31 2022-07-31 Travel [facility] [id number] [facility] 00:00:00 00:00:00 [facility] 2022-07-31 2022-07-31 Travel [facility] [id number] [facility] 00:00:00 00:00:00 [facility] 2022-07-23 2022-07-23 Ambulatory nullFlavo MNA [id number] Memoria 19:45:00 19:45:00 Pre-Reg r Neurology 24 l Niobrara [place] 2022-07-23 2022-07-23 Outpatient MHIE MHIE [id number] Memoria 13:45:00 13:45:00 24 l [place] 2022-07-23 2022-07-23 Outpatient MHIE MHIE [id number] Memoria 13:45:00 13:45:00 24 l [place] 2022-07-23 2022-07-23 Outpatient SUZIE ShresthaMISCHER MHMISCHER [id number] 13:45:00 13:45:00 [place] 24 [place] 2022-07-03 2022-07-03 Emergency nullFlavo Memorial [id number] Memoria 19:19:00 23:15:00 r [place] 00 l [facility] 2022-07-03 2022-07-03 Emergency E RONAKMAYI PRINGLE MHBL MHBL [id number] MHBL 14:19:00 18:15:00 2022-07-03 2022-07-03 Outpatient Mayi Bartholomew MHPL MHPL [id number] 14:19:00 18:15:00 Dax Digna 2022-04-11 2022-04-12 Outpatient nullFlavo MNA [id number] Memoria 18:00:00 04:59:59 r Neurology 23 l Niobrara [place] 2022-04-11 2022-04-12 Outpatient nullFlavo MNA [id number] Memoria 18:00:00 04:59:59 r Neurology 23 l Niobrara [place] 2022-04-11 2022-04-11 Outpatient SUZIE ShresthaMISCHER MHMISCHER [id number] 13:00:00 23:59:59 [place] 23 Ramsey 2022-04-11 2022-04-11 Outpatient MHIE MHIE [id number] Memoria 13:00:00 13:00:00 23 l Raymond 2022-03-18 2022-03-18 Ambulatory nullFlavo MNA [id number] Memoria 19:00:00 19:00:00 Pre-Reg r Neurology 22 l Kelin Andrade 2022-03-18 2022-03-18 Ambulatory nullFlavo MNA [id number] Memoria 19:00:00 19:00:00 Pre-Reg r Neurology 22 l Kelin Andrade 2022-03-18 2022-03-18 Outpatient IE IE [id number] Memoria 14:00:00 14:00:00 22 l [place] 2022-03-18 2022-03-18 Outpatient Henrietta [facility] [id number] 14:00:00 14:00:00 [place] 22 Ramsey 2021-11-27 2021-11-28 Outpatient nullFlavo MNA [id number] Memoria 20:00:00 04:59:59 r Neurology 21 l Kelin Andrade 2021-11-27 2021-11-28 Outpatient nullFlavo MNA [id number] Memoria 20:00:00 04:59:59 r Neurology 21 l Kelin Andrade 2021-11-27 2021-11-27 Outpatient Henrietta [facility] [id number] 15:00:00 23:59:59 [place] 21 [place] 2021-11-27 2021-11-27 Ambulatory nullFlavo MNA [id number] Memoria 19:45:00 19:45:00 Pre-Reg r Neurology 20 l Kelin Andrade 2021-11-27 2021-11-27 Ambulatory nullFlavo MNA [id number] Memoria 19:45:00 19:45:00 Pre-Reg r Neurology 20 l Kelin Andrade 2021-11-27 2021-11-27 Outpatient IE IE [id number] Memoria 15:00:00 15:00:00 21 nicholas Andrade 2021-11-27 2021-11-27 Outpatient IE IE [id number] Memoria 14:45:00 14:45:00 20 nicholas Andrade 2021-11-27 2021-11-27 Outpatient Henrietta [facility] [id number] 14:45:00 14:45:00 [place] 20 Ramsey 2021-05-06 2021-05-06 Ambulatory nullFlavo MNA [id number] Memoria 19:00:00 19:00:00 Pre-Reg r Neurology 19 l Kelin Andrade 2021-05-06 2021-05-06 Ambulatory nullFlavo MNA [id number] Memoria 19:00:00 19:00:00 Pre-Reg r Neurology 19 l Kelin Wallann 2021-05-06 2021-05-06 Outpatient MHIE MHIE [id number] Memoria 14:00:00 14:00:00 19 l [place] 2021-05-06 2021-05-06 Outpatient MORGAN Shrestha [facility] [id number] 14:00:00 14:00:00 [place] 19 Ramsey 2021 2021 Transition Tiffanie Snyder 1.2.840.114 [id number] [facility] 00:00:00 00:00:00 of Care Dakotah Zamoranoy [id number] ity of [place] [id number] [facility] [id number] [facility] 403 Branch 2021 2021 Transition Tiffanie Snyder 1.2.840.114 [id number] 00:00:00 00:00:00 of Care Dakotah A Dwyer [id number] [place] 4.2.7.2.686 [id number] [facility] 2021-04-15 2021-04-17 [id number] [facility] 15:40:00 20:05:00 Encounter Sree Ramos [id number] [facility] [id number] Torrey Herman [id number] [facility] 094 Branch 2021-04-15 2021-04-17 [facility] 1.2.840.1 [id number] 15:40:00 20:05:00 Encounter Sree Ramos [id number] [facility] [id number] [id number] 2021-04-15 2021-04-15 Emergency X Avani ORDONEZ [facility] ERT [id number] Univers 15:40:00 15:40:00 [facility] 2021-04-04 2021-04-04 Ambulatory nullFlavo MNA [id number] Memoria 19:00:00 19:00:00 Pre-Reg r Neurology 17 l Kelin Andrade 2021-04-04 2021-04-04 Ambulatory nullFlavo MNA [id number] Memoria 19:00:00 19:00:00 Pre-Reg r Neurology 17 l Kelin Wallann 2021-04-04 2021-04-04 Outpatient MHIE MHIE [id number] Memoria 14:00:00 14:00:00 17 nicholas Andrade 2021-04-04 2021-04-04 Outpatient MORGAN Shrestha [facility] [id number] 14:00:00 14:00:00 [place] 17 Ramsey 2021-03-29 2021-03-30 Outpatient nullFlavo MNA [id number] Memoria 18:00:00 04:59:59 r Neurology 18 l Kelin Wallann 2021-03-29 2021-03-30 Outpatient nullFlavo MNA [id number] Memoria 18:00:00 04:59:59 r Neurology 18 l Kelin Wallann 2021-03-29 2021-03-29 [facility] [id number] 13:00:00 23:59:59 [place] 18 Ramsey 2021-03-29 2021-03-29 Outpatient MHIE MHIE [id number] Memoria 13:00:00 13:00:00 18 nicholas Andrade 2021-02-20 2021-02-20 Ambulatory nullFlavo MNA [id number] Memoria 19:15:00 19:15:00 Pre-Reg r Neurology 16 l Kelin Andrade 2021-02-20 2021-02-20 Ambulatory nullFlavo MNA [id number] Memoria 19:15:00 19:15:00 Pre-Reg r Neurology 16 l Kelin Andrade 2021-02-20 2021-02-20 Outpatient MHIE IE [id number] Memoria 14:15:00 14:15:00 16 nicholas Andrade 2021-02-20 2021-02-20 [facility] [id number] 14:15:00 14:15:00 [place] 16 Ramsey 2021-01-23 2021-01-23 Ambulatory nullFlavo MNA [id number] Memoria 19:00:00 19:00:00 Pre-Reg r Neurology 13 nicholas Andrade 2021-01-23 2021-01-23 Ambulatory nullFlavo MNA [id number] Memoria 19:00:00 19:00:00 Pre-Reg r Neurology 13 l Kelin Andrade 2021-01-23 2021-01-23 Outpatient MHIE MHIE [id number] Memoria 14:00:00 14:00:00 13 nicholas Andrade 2021-01-23 2021-01-23 [facility] [id number] 14:00:00 14:00:00 [place] 13 Ramsey 2020-12-06 2020-12-06 Ambulatory nullFlavo MNA [id number] Memoria 20:30:00 20:30:00 Pre-Reg r Neurology 15 l Kelin Andrade 2020-12-06 2020-12-06 Ambulatory nullFlavo MNA [id number] Memoria 20:30:00 20:30:00 Pre-Reg r Neurology 15 l Kelin Andrade 2020-12-06 2020-12-06 Outpatient MHIE MHIE [id number] Memoria 15:30:00 15:30:00 15 nicholas Andrade 2020-12-06 2020-12-06 [facility] [id number] 15:30:00 15:30:00 [place] 15 [place] 2020-11-15 2020-11-16 Outpatient nullFlavo MNA [id number] Memoria 21:15:00 05:59:59 r Neurology 14 l Kelin Andrade 2020-11-15 2020-11-16 Outpatient nullFlavo MNA [id number] Memoria 21:15:00 05:59:59 r Neurology 14 l Kelin Andrade 2020-11-15 2020-11-15 [facility] [id number] 15:15:00 23:59:59 [place] 14 Ramsey 2020-11-15 2020-11-15 Outpatient MHIE MHIE [id number] Memoria 15:15:00 15:15:00 14 l Raymond 2020-10-22 2020-10-24 Outside nullFlavo MNA [id number] Memoria 21:23:00 05:59:59 Medical r Neurology 03 l Records Kelin Andrade 2020-10-22 2020-10-24 Outside nullFlavo MNA [id number] Memoria 21:23:00 05:59:59 Medical r Neurology 03 l Records Kelin Andrade 2020-10-22 2020-10-23 [facility]patient [facility] [id number] 15:23:00 23:59:59 03 2020-07-26 2020-07-27 Outpatient nullFlavo MNA [id number] Memoria 20:00:00 05:59:59 r Neurology 12 l Kelin Andrade 2020-07-26 2020-07-27 Outpatient nullFlavo MNA [id number] Memoria 20:00:00 05:59:59 r Neurology 12 l Kelin Andrade 2020-07-26 2020-07-26 [facility] [id number] 14:00:00 23:59:59 [place] 12 Ramsey 2020-07-26 2020-07-26 Outpatient MHIE MHIE [id number] Memoria 14:00:00 14:00:00 12 nicholas Andrade 2020-04-05 2020-04-06 Outpatient nullFlavo MNA [id number] Memoria 19:00:00 04:59:59 r Neurology 11 l Kelin Andrade 2020-04-05 2020-04-06 Outpatient nullFlavo MNA [id number] Memoria 19:00:00 04:59:59 r Neurology 11 l Kelin Wallann 2020-04-05 2020-04-05 Outpatient Henrietta [facility] [id number] 14:00:00 23:59:59 [place] 11 [facility] 2020-04-05 2020-04-05 Ambulatory nullFlavo MNA [id number] Memoria 19:00:00 19:00:00 Pre-Reg r Neurology 10 l Kelin [place] 2020-04-05 2020-04-05 Ambulatory nullFlavo MNA [id number] Memoria 19:00:00 19:00:00 Pre-Reg r Neurology 10 l Kelin [place] 2020-04-05 2020-04-05 Outpatient MHIE MHIE [id number] Memoria 14:00:00 14:00:00 11 l [place] 2020-04-05 2020-04-05 Outpatient MHIE MHIE [id number] Memoria 14:00:00 14:00:00 10 l [place] 2020-04-05 2020-04-05 Outpatient MORGAN Shrestha MHMISCHER [id number] 14:00:00 14:00:00 [place] 10 [facility] 2020-03-01 2020-03-01 [facility] [id number] Univers 16:34:28 19:52:00 KEREN barrow [facility] 2020-03-01 2020-03-01 Emergency [facility] 1.2.840.114 [id number] [facility] 16:34:28 19:52:00 Keren Puckett [id number] [facility] 4.2.7.2.686 [facility] [id number] [address] 2020-03-01 2020-03-01 Emergency [facility] 1.2.840.114 [id number] 16:34:28 19:52:00 Keren Puckett [id number] [facility] [id number] [place] [id number] [facility] 2019-10-06 2019-10-07 Outpatient nullFlavo MNA [id number] Memoria 19:15:00 05:59:59 r Neurology 09 l Kelin Andrade 2019-10-06 2019-10-07 Outpatient nullFlavo MNA [id number] Memoria 19:15:00 05:59:59 r Neurology 09 l Kelin Andrade 2019-10-06 2019-10-06 Outpatient IRVIN ShresthaSCHMARIXA MHMISCHER [id number] 13:15:00 23:59:59 [place] 09 Ramsey 2019-10-06 2019-10-06 Outpatient MHIE MHIE [id number] Memoria 13:15:00 13:15:00 09 nicholas [place] 2019-07-29 2019-07-29 Outpatient MHIE MHIE [id number] Memoria 13:00:00 13:00:00 08 nicholas Raymond 2019-07-29 2019-07-29 Outpatient MHIE MHIE [id number] Memoria 13:00:00 13:00:00 08 nicholas [place] 2019-07-01 2019-07-01 Ambulatory nullFlavo MNA [id number] Memoria 21:00:00 21:00:00 Pre-Reg r Neurology 08 nicholas Neville [place] 2019-07-01 2019-07-01 [facility] [id number] 16:00:00 16:00:00 [place] 08 Ramsey 2019-03-31 2019-03-31 Ambulatory nullFlavo MNA [id number] Memoria 20:15:00 20:15:00 Pre-Reg r Neurology 03 l Kelin [place] 2019-03-31 2019-03-31 Ambulatory nullFlavo MNA [id number] Memoria 20:15:00 20:15:00 Pre-Reg r Neurology 03 nicholas Neville [place] 2019-03-31 2019-03-31 Outpatient MHIE IE [id number] Memoria 15:15:00 15:15:00 03 nicholas Raymond 2019-03-31 2019-03-31 [facility] [id number] 15:15:00 15:15:00 [place] 03 Ramsey 2019-03-25 2019-03-26 Outpatient nullFlavo MNA [id number] Memoria 18:00:00 04:59:59 r Neurology 07 nicholas Neville Raymond 2019-03-25 2019-03-26 Outpatient nullFlavo MNA [id number] Memoria 18:00:00 04:59:59 r Neurology 07 l Kelin [place] 2019-03-25 2019-03-25 Outpatient SUZIE [facility]SCHER [facility] [id number] 13:00:00 23:59:59 [place] 07 Ramsey 2019-03-25 2019-03-25 Outpatient MHIE MHIE [id number] Memoria 13:00:00 13:00:00 07 nicholas WallRaymond 2019-02-09 2019-02-09 Ambulatory nullFlavo MNA [id number] Memoria 19:45:00 19:45:00 Pre-Reg r Neurology 05 l Kelin Andrade 2019-02-09 2019-02-09 Ambulatory nullFlavo MNA [id number] Memoria 19:45:00 19:45:00 Pre-Reg r Neurology 05 nicholas Neville [place] 2019-02-09 2019-02-09 Outpatient MHIE IE [id number] Memoria 14:45:00 14:45:00 05 nicholas [place] 2019-02-09 2019-02-09 [facility] [id number] 14:45:00 14:45:00 [place] Mustafa 2019-01-21 2019-01-22 Outpatient nullFlavo MNA [id number] Memoria 18:15:00 04:59:59 r Neurology 06 nicholas Neville Raymond 2019-01-21 2019-01-22 Outpatient nullFlavo MNA [id number] Memoria 18:15:00 04:59:59 r Neurology 06 nicholas Niobrara Raymond 2019-01-21 2019-01-21 Outpatient [facility] [id number] 13:15:00 23:59:59 [place] Mustafa 2019-01-21 2019-01-21 Outpatient MHIE IE [id number] Memoria 13:15:00 13:15:00 06 nicholas Raymond 2018-12-30 2018-12-31 Outpatient nullFlavo MNA [id number] Memoria 14:00:00 04:59:59 r Neurology 04 nicholas Niobrara [place]leton 2018-12-30 2018-12-31 Outpatient nullFlavo MNA [id number] Memoria 14:00:00 04:59:59 r Neurology 04 nicholas Niobrara Raymond 2018-12-30 2018-12-30 Outpatient SUZIE ShresthaMISCHER MISCHER [id number] 09:00:00 23:59:59 Triston Arturo Mustafa 2018-12-30 2018-12-30 Outpatient [facility] IE [id number] Memoria 09:00:00 09:00:00 04 nicholas Andrade 2018-10-19 2018-10-20 Outpatient nullFlavo MNA [id number] Memoria 22:00:00 05:59:59 r Neurology 02 nicholas Andrade 2018-10-19 2018-10-20 Outpatient nullFlavo MNA [id number] Memoria 22:00:00 05:59:59 r Neurology 02 nicholas Neville Appleton 2018-10-19 2018-10-19 [id number] 16:00:00 23:59:59 Triston Sona Mustafa 2018-10-19 2018-10-19 Outpatient MHIE MHIE [id number] Memoria 16:00:00 16:00:00 02 nicholas Andrade 2018-09-17 2018-09-19 Phone nullFlavo MNA [id number] Memoria 21:30:00 05:59:59 Message r Neurology 01 nicholas Andrade 2018-09-17 2018-09-19 Phone nullFlavo MNA [id number] Memoria 21:30:00 05:59:59 Message r Neurology 01 l Kelin Raymond 2018-09-17 2018-09-18 Outpatient MHMIS[facility]ER MHMISCHER [id number] 15:30:00 23:59:59 2018-08-20 2018-08-22 Phone nullFlavo MNA [id number] Memoria 19:01:00 05:59:59 Message r Neurology 00 l Kelin Appleton 2018-08-20 2018-08-22 Phone nullFlavo MNA [id number] 56 Memoria 19:01:00 05:59:59 Message r Neurology 00 l Kelin Appleton 2018-08-20 2018-08-21 Outpatient MHMISCHER MHMISCHER 000 [id number] 13:01:00 23:59:59 2018-02-04 2018-02-06 [facility] [id number] Memoria 08:21:00 21:15:00 r Appleton [address] [place] [address] 2018-02-04 2018-02-06 [facility] [id number] Memoria 08:21:00 21:15:00 r Raymond [address] [place] [address] 2018-02-04 2018-02-06 Outpatient [facility] [id number] 03:21:00 16:15:00 Carlos Montano 2015-10-22 2015-10-28 Inpatient [facility] [id number] Memoria 18:39:00 17:47:00 r Raymond [address] [facility] 2015-10-22 2015-10-28 Inpatient [facility] [id number] Memoria 18:39:00 17:47:00 r Appleton [address] [facility] 2015-10-22 2015-10-28 Outpatient [facility] [id number] 12:39:00 11:47:00 Moe, 39 Antoni Results Test Description Test Time Test Comments Results Result Sourc e Comments [place], ERCP 2022-08-05 Reason for 16:07:00 exam:->[facility] : 1935 Sex: F An imaging unit was utilized for this procedure. No radiologist interpretation was requested. Refer to the EMR for findings. Refer to PACS for any patient radiation dose information. RADRPT 2022-07-03 21:38:22 Test Item Value Reference Range Interpretation Comme [facility] RADRPT (test code = RADRPT) PROCEDURE INFORMATION: Exam: US Abdomen , Limited; Right Upper Quadrant Exam date and time: 07/03/2022 4:08 PM Age: 87 years old Clinical indication: Abdominal pain; Acute; Additional info: /pain, vomiting TECHNIQUE: Imaging protocol: Real time ultrasound of the abdomen with image documentation. Limited exam focused on the right upper quadrant. COMPARISON: ABDOMEN, PELVIS CTA 10/22/2015 4:26 PM FINDINGS: Liver: Normal. No masses. Gallbladder: Multiple echogenic shadowing stones are seen. The gallbladder wall measures 3 mm or less. The sonographic Ovalles sign is reported as negative by the technologist. Biliary ducts: Normal. No stones. No dilation. Pancreas: The pancreas was not well visualized secondary to overlying bowel gas. Right kidney: Normal. No mass. No hydronephrosis. IMPRESSION: Cholelithiasis without additional sonographic evidence of acute cholecystitis. Vera Mae MD On 07/03/2022 16:36:54; [id number] [facility]UqwalfhGJHWEXDSP2675-31-82 20:19:00 Test Item Value Reference Range Interpretation Comments Glucose Lvl (test code = Glucose Lvl) 104 70-99 [facility] SouthTsgkjjbTIDEHGLCG2589-19-27 20:19:00 Test Item Value Reference Range Interpretation Comments BUN (test code = BUN) 32 7-22 [facility] SouthMombvhjQSRSWQMXI7677-79-33 20:19:00 Test Item Value Reference Range Interpretation Comments Creatinine Lvl (test code = Creatinine 0.92 0.50-1.40 Lvl) [facility] SouthDokwvatELGSYVYPQ8133-79-36 20:19:00 Test Item Value Reference Range Interpretation Comments Sodium Lvl (test code = Sodium Lvl) 139 135-145 [facility] SouthYkseuqoOPTYNGBPC2106-69-89 20:19:00 Test Item Value Reference Range Interpretation Comments Potassium Lvl (test code = Potassium 4.7 3.5-5.1 Lvl) [facility] SouthGvaczmyIVNHHAVXE5990-89-44 20:19:00 Test Item Value Reference Range Interpretation Comments Chloride Lvl (test code = Chloride Lvl) 108 95-109 [facility] SouthUwshfqeRNAXZAHWK6989-78-62 20:19:00 Test Item Value Reference Range Interpretation Comments CO2 (test code = CO2) 26 24-32 [facility] SouthFvqvzrdKSGBIQVFH9782-07-84 20:19:00 Test Item Value Reference Range Interpretation Comments Calcium Lvl (test code = Calcium Lvl) 9.1 8.5-10.5 [facility] SouthPhowzzoQZAJUGREE7450-71-53 20:19:00 Test Item Value Reference Range Interpretation Comments Total Protein (test code = Total 7.2 6.4-8.4 Protein) [facility] SouthDecxjxuOKDDEHXMP9952-62-53 20:19:00 Test Item Value Reference Range Interpretation Comments Albumin Lvl (test code = Albumin Lvl) 3.7 3.5-5.0 [facility] SouthZaguhupFHKGHQZLV0899-82-47 20:19:00 Test Item Value Reference Range Interpretation Comments ALT (test code = ALT) 14 See_Comment [Auto mated message] The system which ge nerated this result transmit dewey reference range : <=65. The reference range was not used to interpr et this result as deyvi l/abnormal. [facility] UpdjfwlYAZOJTNPQ4511-77-12 20:19:00 Test Item Value Reference Range Interpretation Comments AST (test code = AST) 14 See_Comment [Auto mated message] The system which ge nerated this result transmit dewey reference range : <=37. The reference range was not used to interpr et this result as deyvi l/abnormal. [facility] DldzanyRQAGMZBPY1133-39-67 20:19:00 Test Item Value Reference Range Interpretation Comments Alk Phos (test code = Alk Phos) 71 39-136 [facility] GjjkvhtCZUPFEYZD9340-46-13 20:19:00 Test Item Value Reference Range Interpretation Comments Bili Total (test code = Bili Total) 0.3 0.2-1.3 [facility] QxbkopeRQFBKRENJ4592-17-34 20:19:00 Test Item Value Reference Range Interpretation Comments AGAP (test code = AGAP) 9.7 10.0-20.0 [facility] OxicphiFQCUMFPUD7931-57-65 20:19:00 Test Item Value Reference Range Interpretation Comments B/C Ratio (test code = B/C Ratio) 35 1 6-25 [facility] XinebiuKCWGUENOA6888-61-04 20:19:00 Test Item Value Reference Range Interpretation Comments Globulin (test code = Globulin) 3.5 2.7-4.2 [facility] GcgixolMXWGUFCSM1922-05-13 20:19:00 Test Item Value Reference Range Interpretation Comments A/G Ratio (test code = A/G Ratio) 1.1 1 0.7-1.6 [facility] PnoxzdoPSSJIYQSM0663-02-80 20:19:00 Test Item Value Reference Range Interpretation Comments eGFR (test code = eGFR) 60 [facility] VgxvfjiVZOAEQXKO3971-54-51 20:19:00 Test Item Value Reference Range Interpretation Comments Lipase Lvl (test code = Lipase Lvl) 77 73-393 [facility] MeruxcrQHQICMSWYU3844-33-92 20:19:00 Test Item Value Reference Range Interpretation Comments WBC (test code = WBC) 6.4 3.7-10.4 [facility] RegionalXyhzxxaIGMPHKILRH2768-50-66 20:19:00 Test Item Value Reference Range Interpretation Comments RBC (test code = RBC) 3.55 4.20-5.40 [facility] RegionalTbkiktaSYPARLFTFO7461-88-39 20:19:00 Test Item Value Reference Range Interpretation Comments Hgb (test code = Hgb) 11.1 12.0-16.0 [facility] RegionalWbahxvhFSNQDHXMOE0146-41-95 20:19:00 Test Item Value Reference Range Interpretation Comments Hct (test code = Hct) 33.7 36.0-48.0 [facility] RegionalXhaiyvmVXAZZBWPGG5591-43-46 20:19:00 Test Item Value Reference Range Interpretation Comments MCV (test code = MCV) 95.1 80.0-98.0 [facility] RegionalOyiicvwLDJEMJMOEH8911-65-87 20:19:00 Test Item Value Reference Range Interpretation Comments MCH (test code = MCH) 31.4 pg 27.0-31.0 [facility] RegionalUlscbxjPHFEGGLBQP3112-53-25 20:19:00 Test Item Value Reference Range Interpretation Comments MCHC (test code = MCHC) 33.0 32.0-36.0 [facility] RegionalTzdmyftQGEZVWNPEC8780-75-04 20:19:00 Test Item Value Reference Range Interpretation Comments RDW (test code = RDW) 12.6 11.5-14.5 [facility] RegionalSdklokeNYTRLZWHLQ4544-75-82 20:19:00 Test Item Value Reference Range Interpretation Comments Platelet (test code = Platelet) 252 133-450 [facility] RegionalUthdtprJHACQVBDDY3389-31-98 20:19:00 Test Item Value Reference Range Interpretation Comments MPV (test code = MPV) 7.1 7.4-10.4 [facility] RegionalFdvlaiiYGCAQCNOEK7824-62-42 20:19:00 Test Item Value Reference Range Interpretation Comments Segs (test code = Segs) 56.1 45.0-75.0 [facility] RegionalZfezdpgHRPZNWWEIV4070-95-36 20:19:00 Test Item Value Reference Range Interpretation Comments Lymphocytes (test code = Lymphocytes) 32.0 20.0-40.0 [facility] RegionalXomlscqEHMVUEWJVS3384-05-71 20:19:00 Test Item Value Reference Range Interpretation Comments Monocytes (test code = Monocytes) 8.1 2.0-12.0 [facility] RegionalVfsbncrJMVIFMLALI4296-48-45 20:19:00 Test Item Value Reference Range Interpretation Comments Eosinophils (test code = 3.0 See_Comment [A utomated message] The Eosinophils) system which ge nerated this result tra nsmitted reference range : <=4.0. The reference r kemar was not used to int erpret this result as normal/abnormal . [facility] RegionalDzwsubwUAZSTJLQEP8308-86-66 20:19:00 Test Item Value Reference Range Interpretation Comments Basophils (test code = 0.8 See_Comment [Aut omated message] The Basophils) system which ge nerated this result tra nsmitted reference range : <=1.0. The reference r kemar was not used to int erpret this result as normal/abnormal . [facility] RegionalLdnystfDOZRMJATLX8624-57-67 20:19:00 Test Item Value Reference Range Interpretation Comments Neutrophils # (test code = Neutrophils 3.6 1.5-8.1 #) [facility] RegionalWtwsjyzRDUDLFJOYP3135-20-14 20:19:00 Test Item Value Reference Range Interpretation Comments Lymphocytes # (test code = Lymphocytes 2.1 1.0-5.5 #) [place] 289482-10-20 20:19:00 Test Item Value Reference Range Interpretation Comments Monocytes # (test code 0.5 See_Comment [Aut omated message] The = Monocytes #) system which generated this result tra nsmitted reference range : <=0.8. The reference r kemar was not used to int erpret this result as normal/abnormal . [facility] RegionalArwwxeuPIFYAOJGKD8570-93-27 20:19:00 Test Item Value Reference Range Interpretation Comments Eosinophils # (test code 0.2 See_Comment [A utomated message] The = Eosinophils #) system [facility] h generated this result tra nsmitted reference range : <=0.5. The reference r kemar was not used to int erpret this result as normal/abnormal . [facility] RegionalDqxxqflZTKWWMTCTF4704-04-84 20:19:00 Test Item Value Reference Range Interpretation Comments Basophils # (test code 0.1 See_Comment [Aut omated message] The = Basophils #) system which generated this result tra nsmitted reference range : <=0.2. The reference r kemar was not used to int erpret this result as normal/abnormal . [facility] ONLY COVID KIYCDTVDLIRBHK2074-30-63 23:44:30COVID DMT InterpretationInterpretation/Recommendations:Molecular NAAT Tests for Active Infection with the [...] has produced antibodies to the SARS-CoV-2 virus. Salome r, some patients may take longer to develop [...] which the patient has been exposed. ? -- Interpretation Result Comments:These interpretation comments are based upon all COVID-19 testing the patient has had at [facility], including molecular NAAT testing (more commonly known as PCR testing and Rapid ID Now testing) and antibody testing. It does not take into account any testing that a patient has had outside of the [facility] medical record. [facility] LABORATORY SERVICESCOVID XiovhkfUVYP-CvC-9 Rapid ID NOW (no units) ? ? Date ? Value ? 04/15/2021 ? Positive (A) ? ? ? 03/01/2020 ? N ot Detected ? [facility]UnSt[facility] (NA, K, CL, CO2, GLUCOSE, BUN, CREATININE, CA) 2021-04-16 12:21:50 Test Item Value Reference Range Interpretation Comments NA (test code = 139 mmol/L 135-145 3283254866) K (test code = 4.3 mmol/L 3.5-5.0 5032792809) CL (test code = 109 mmol/L 98-108 H 7237970876) CO2 TOTAL (test code = 26 mmol/L 23-31 4699560883) AGAP (test code = 2-16 5957502973) BUN (test code = 15 mg/dL 7-23 6579420391) GLUCOSE (test code = 74 mg/dL 70-110 7884210952) CREATININE (test code = 0.59 mg/dL 0.50-1.04 5965179246) CALCIUM (test code = 7.4 mg/dL 8.6-10.6 L 5533774423) eGFR (test code = mL/min/1.73m2 7156188087) DREAD (test code = DREAD) Association of [...] tests). Lab Interpretation Abnormal (test code = 87967-1) [facility]GLYCOSYL[facility] HEMOGLOBIN (A1C)2021-04-16 11:45:40 Test Item Value Reference Range Interpretation Comments HGB A1C (test code = 5.8 % 4.0-5.7 H 4548-4) DREAD (test code = DREAD) Reference RangesNormal: <5.7%Prediabetes: 5.7 - 6.4%Diabetes: > 6.5% Lab Interpretation (test Abnormal code = 91437-6) [facility]landCT CHEST PULMONARY JHXEHKPWP7913-41-90 04:37:45 No acute pulmonary embolism identified. Apparent [...] PM on 04/15/2021.Preliminary Report Dictated by Resident: Satya Jean-Baptiste, Wayne Sánchez MD., have reviewed this study and agree with the abovereport. [facility] MainlandAD,CLC OR LCC ONLY - INFLUENZA A & B DIRECT MELBZMK3125-77-61 23:53:22 Test Item Value Reference Range Interpretation Comments Influenza A (test code = 64374-8) Negative Negative Influenza B (test code = 37356-2) Negative Negative Lab Interpretation (test code = Normal 36790-5) [facility]landaPTT2021-08-02 23:33:43 Test Item Value Reference Range Interpretation Comments APTT Patient (test See_Comment [Automat ed code = 3173-2) message] The system which generated this result transmitted reference range : 23 - 38 Seconds . The reference range was not used to interpr et this result as normal/abnormal . DREAD (test code = DREAD) The [facility] patient population mean normal value for aPTT is 30 seconds. Lab Interpretation Normal (test code = 00401-6) [facility]landProthrombin Time (PT) / YBL3267-05-00 23:31:24 Test Item Value Reference Range Interpretation [...] tions. Lab Interpretation (test Normal code = 41155-7) [facility]landN-TERMINAL HMX-SHM8538-02-02 21:45:39 Test Item Value Reference Range Interpretation Comments NT-proBNP (test code 1030 pg/mL See_Comment H [Autom ated = 9976553466) message] The system which generated this result transmitted reference range : <=450. The reference range was not used to interpret this result as normal/abnormal . DREAD (test code = DREAD) Biotin has been reported to cause a negative bias, interpret results relative to patient's use of biotin. Lab Interpretation Abnormal (test code = 96808-0) [facility]. METABOLIC PANEL (00573)2021-04-15 21:40:38 Test Item Value Reference Range Interpretation Comments NA (test code = 140 mmol/L 135-145 3356936622) K (test code = 4.4 mmol/L 3.5-5.0 2887618041) CL (test code = 107 mmol/L 98-108 1203263128) CO2 TOTAL (test code = 25 mmol/L 23-31 0638261390) AGAP (test code = 2-16 0097827823) BUN (test code = 25 mg/dL 7-23 H 9275052975) GLUCOSE (test code = 80 mg/dL 70-110 6482584606) CREATININE (test code = 0.79 mg/dL 0.50-1.04 2515536524) TOTAL BILI (test code = 0.4 mg/dL 0.1-1.8 2229114201) CALCIUM (test code = 8.6 mg/dL 8.6-10.6 0027585066) T PROTEIN (test code = 6.8 g/dL 6.3-8.2 1384030803) ALBUMIN (test code = 3.7 g/dL 3.5-5.0 5583733703) ALK PHOS (test code = 85 U/L 34-122 6895164234) ALTv (test code = 10 U/L 5-35 1742-6) AST(SGOT) (test code = 30 U/L 13-40 8449795634) eGFR (test code = mL/min/1.73m2 7414569629) DREAD (test code = DREAD) Association of [...] tests). Lab Interpretation Abnormal (test code = 58494-4) [facility]landMAGNESIUM2021-08-02 21:40:38 Test Item Value Reference Range Interpretation Comments MAGNESIUM (test code = 3281932901) 2.1 mg/dL 1.7-2.4 Lab Interpretation (test code = Normal 72632-6) [facility]landD-LPYRH3925-96-15 21:28:56 Test Item Value Reference Interpretation Comments Range D-DIMER (test code = See_Comment H [Autom ated 7267730840) message] The system which generated this result [...] diagnosis. Lab Interpretation Abnormal (test code = 15243-6) [facility]landCOVID-19 (ID NOW RAPID TESTING)2021-04-15 21:28:35 Test Item Value Reference Range Interpretation Comments SARS-CoV-2 Rapid ID NOW Positive Not Detected A (test code = 52662-5) DREAD (test code = DREAD) ID NOW COVID-19 Assay is an isothermal nucleic acid amplification test intended for the qualitative detection of nucleic acid from SARS-CoV-2 viral RNA in nasopharyngeal (ASSISTANT SCIENTIST) specimens. It is used under Emergency Use [...] indicated. Lab Interpretation Abnormal (test code = 07172-6) [facility] MainlandCB WITH [id number] 21:21:14 Test Item Value Reference Range Interpretation Comments WBC (test code = See_Comment L [Automated 5398-2) message] The sy stem which generated this result transmitted reference range : 4.30 - 11.10 10*3/?L. The reference range was not used to interpret this result as normal/abnormal . RBC (test code = See_Comment L [Automated 249-8) message] The sy stem which generated this [...] RDW-SD (test code = 48.7 fL 39.0-49.9 11954-8) RDW-CV (test code = 13.6 % 12.0-15.5 788-0) PLT (test code = See_Comment L [Automated 777-3) message] The sy stem which generated this result transmitted reference range : 166 - 358 10*3/ ?L. The reference r kemar was not used to interpret this result as normal/abnormal . MPV (test code = 10.0 fL 9.5-12.9 50920-1) NRBC/100 WBC (test See_Comment [Automat ed code = 2084011650) message] The system which generated this result transmitted reference range : 0.0 - 10.0 /100 WBCs. The refer ence range was not u sed to interpret th is result as normal/abnormal . NRBC x10^3 (test code <0.01 See_Comment [Auto mated = 6473362064) message] The s ystem which generated this result transmitted reference range : 10*3/?L. The reference range was not used to interpret this result as normal/abnormal . GRAN MAT (NEUT) % 58.7 % (test code = 770-8) IMM GRAN % (test code 0.30 % = 3861525055) LYMPH % (test code = 22.9 % 736-9) MONO % (test code = 15.2 % 5905-5) EOS % (test code = 2.6 % 713-8) BASO % (test code = 0.3 % 706-2) GRAN MAT x10^3(ANC) 2.29 10*3/uL 1.88-7.09 (test code = 4755076769) IMM GRAN x10^3 (test <0.03 0.00-0.06 code = 7570397631) LYMPH x10^3 (test code 0.89 10*3/uL 1.32-3.29 L = 731-0) MONO x10^3 (test code 0.59 10*3/uL 0.33-0.92 = 742-7) EOS x10^3 (test code = 0.10 10*3/uL 0.03-0.39 711-2) BASO x10^3 (test code <0.03 0.01-0.07 = 704-7) Lab Interpretation Abnormal (test code = 73520-7) [facility] MainlandLactic Acid Whole [id number] 21:20:48 Test Item Value Reference Range Interpretation Comments LACTIC ACID (test code = 1.13 mmol/L 0.50-2.20 2856435590) Lab Interpretation (test code = Normal 35226-2) [facility]landCOVID-[facility] (ID NOW RAPID TESTING)2020-03-01 23:27:00 Test Item Value Reference Range Interpretation Comments SARS-CoV-2 Rapid ID NOW Not Detected Not Detected (test code = 41570-3) DREAD (test code = DREAD) ID NOW COVID-19 Assay is an isothermal nucleic acid amplification test intended for the qualitative detection of nucleic acid from SARS-CoV-2 viral RNA in nasopharyngeal (ASSISTANT SCIENTIST) specimens. It is used under Emergency Use [...] indicated. Lab Interpretation Normal (test code = 09851-5) [facility] MainlandTroponin [id number] 23:21:00 Test Item Value Reference Range Interpretation Comments TROPONIN I (test <0.012 See_Comment [Automated code = 5377512649) message] The system which generated this result [...] ? Lab Interpretation Normal (test code = 15396-0) [facility]landN-TERMINAL [id number] 23:18:00 Test Item Value Reference Range Interpretation Comments NT-proBNP (test code 407 pg/mL See_Comment [Autom ated = 0076746687) message] The system which generated this result transmitted reference range : <=450. The reference range was not used to interpret this result as normal/abnormal . DREAD (test code = DREAD) Biotin has been reported to cause a negative bias, interpret results relative to patient's use of biotin. Lab Interpretation Normal (test code = 09730-9) [facility]landBasic Metabolic Panel (NA, K, CL, CO2, GLUCOSE, BUN, CREATININE, CA)2020-03-01 23:10:00 Test Item Value Reference Range Interpretation Comments NA (test code = 140 mmol/L 135-145 0961772851) K (test code = 4.5 mmol/L 3.5-5 5515447871) CL (test code = 108 mmol/L 98-108 9153579116) CO2 TOTAL (test code = 22 mmol/L 23-31 L 7671839023) AGAP (test code = 2-16 0071944262) BUN (test code = 18 mg/dL 7-23 7572589648) GLUCOSE (test code = 104 mg/dL 70-110 6139053470) CREATININE (test code = 0.75 mg/dL 0.5-1.04 1058228692) CALCIUM (test code = 9.2 mg/dL 8.6-10.6 2417259121) eGFR Calculation mL/min/1.73m2 (Non-) (test code = 7169078081) eGFR Calculation mL/min/1.73m2 () (test code = 8357081112) DREAD (test code = DREAD) Association of [...] tests). Lab Interpretation Abnormal (test code = 17067-5) [facility]landHepatic Function Panel (ALB, T.PRO, BILI T, BU/BC, ALT, AST, ALK PHOS)2020-03-01 23:10:00 Test Item Value Reference Range Interpretation Comments TOTAL BILI (test code = 4144336473) 0.1 mg/dL 0.1-1.1 BILI UNCON (test code = 5693781716) 0.4 mg/dL 0.1-1.1 BILI CONJ (test code = 1938417030) 0.0 mg/dL 0-0.3 T PROTEIN (test code = 7383793339) 6.8 g/dL 6.3-8.2 ALBUMIN (test code = 3706849464) 3.9 g/dL 3.5-5 ALK PHOS (test code = 5518568084) 89 U/L 34-122 ALTv (test code = 1742-6) 10 U/L 5-35 AST(SGOT) (test code = 5287430282) 18 U/L 13-40 Lab Interpretation (test code = Normal 21156-4) [facility] WITH IHJCBJITZJDG1010-39-54 23:01:00 Test Item Value Reference Range Interpretation [...] RDW-SD (test code = 42.5 fL 39-49.9 84789-9) RDW-CV (test code = 12.0 % 12-15.5 788-0) PLT (test code = See_Comment [Automated 777-3) message] The sy stem which generated this result transmitted reference range : 166 - 358 10*3/ ?L. The reference r kemar was not used to interpret this result as normal/abnormal . MPV (test code = 9.4 fL 9.5-12.9 L 22010-0) NRBC/100 WBC (test See_Comment [Automat ed code = 2173664095) message] The system which generated this result transmitted reference range : 0.0 - 10.0 /100 WBCs. The refer ence range was not u sed to interpret th is result as normal/abnormal . NRBC x10^3 (test code <0.01 See_Comment [Auto mated = 5856080526) message] The s ystem which generated this result transmitted reference range : 10*3/?L. The reference range was not used to interpret this result as normal/abnormal . GRAN MAT (NEUT) % 61.9 % (test code = 770-8) IMM GRAN % (test code 0.40 % = 4567942554) LYMPH % (test code = 27.1 % 736-9) MONO % (test code = 8.9 % 5905-5) EOS % (test code = 1.3 % 713-8) BASO % (test code = 0.4 % 706-2) GRAN MAT x10^3(ANC) 5.16 10*3/uL 1.88-7.09 (test code = 9151740827) IMM GRAN x10^3 (test 0.03 10*3/uL 0-0.06 code = 2722506475) LYMPH x10^3 (test code 2.26 10*3/uL 1.32-3.29 = 731-0) MONO x10^3 (test code 0.74 10*3/uL 0.33-0.92 = 742-7) EOS x10^3 (test code = 0.11 10*3/uL 0.03-0.39 711-2) BASO x10^3 (test code 0.03 10*3/uL 0.01-0.07 = 704-7) Lab Interpretation Abnormal (test code = 51331-4) [facility]HEMATOLOGY2018-05-26 11:29:00 Test Item Value Reference Range Interpretation Comments Hct (test code = Hct) 25.5 36.0-48.0 [facility]OiglqcxUAVHNYOCKT2913-64-99 11:29:00 Test Item Value Reference Range Interpretation Comments Hgb (test code = Hgb) 8.6 12.0-16.0 [facility] RegionalEtjcbgoUEXPSBPAUU8906-55-39 11:29:00 Test Item Value Reference Range Interpretation Comments Hct (test code = Hct) 25.5 36.0-48.0 [facility] RegionalExmpzoyYFRSRRSECM8655-89-57 11:29:00 Test Item Value Reference Range Interpretation Comments Hgb (test code = Hgb) 8.6 12.0-16.0 [place] [facility]2018-05-25 11:44:00 Test Item Value Reference Range Interpretation Comments Vitamin D, 25-OH, Total (test code = 12.4 30.0-100.0 Vitamin D, 25-OH, Total) [facility]MpoppykFCXDXJRBBWPS5764-78-83 11:44:00 Test Item Value Reference Range Interpretation Comments AGAP (test code = AGAP) 13.9 10.0-20.0 [facility] HospitalEgnbpxdINFXTWCZHQLL1041-34-30 11:44:00 Test Item Value Reference Range Interpretation Comments eGFR (test code = eGFR) 82 [facility] HospitalWgpeipyCGRSKEAJMUGY9564-93-11 11:44:00 Test Item Value Reference Range Interpretation Comments Chloride Lvl (test code = Chloride Lvl) 110 95-109 [facility] HospitalSkkreziLLGGTKJGXJQH1621-76-96 11:44:00 Test Item Value Reference Range Interpretation Comments CO2 (test code = CO2) 24 24-32 [facility] HospitalZdoewqpMXBTNBTALJYX6209-86-71 11:44:00 Test Item Value Reference Range Interpretation Comments Sodium Lvl (test code = Sodium Lvl) 144 135-145 [facility] HospitalStwjyqnLHLGRPOKDAJS0900-19-70 11:44:00 Test Item Value Reference Range Interpretation Comments Potassium Lvl (test code = Potassium 3.9 3.5-5.1 Lvl) [facility] HospitalKmidrzdIBIQMGCMXOYI6286-80-56 11:44:00 Test Item Value Reference Range Interpretation Comments BUN (test code = BUN) 20 7-22 [facility] HospitalAxqjuckYLEAFPIGCUCO1990-02-33 11:44:00 Test Item Value Reference Range Interpretation Comments Creatinine Lvl (test code = Creatinine 0.68 0.50-1.40 Lvl) [facility] HospitalZnhmiyjINABYKNYRBOF9987-33-38 11:44:00 Test Item Value Reference Range Interpretation Comments Glucose Lvl (test code = Glucose Lvl) 151 70-99 [facility] HospitalUdmysdjQMQFWMUFITKI6076-46-10 11:44:00 Test Item Value Reference Range Interpretation Comments Calcium Lvl (test code = Calcium Lvl) 7.9 8.5-10.5 [facility] RegionalNeobzqeNNKDWIKSEV3455-61-61 11:44:00 Test Item Value Reference Range Interpretation Comments MCV (test code = MCV) 93.8 80.0-98.0 [facility] RegionalKaukqycSHWEMSTXJK6490-28-39 11:44:00 Test Item Value Reference Range Interpretation Comments MCH (test code = MCH) 31.7 pg 27.0-31.0 [facility] RegionalJvthscdXQZWIZWUKW0320-14-00 11:44:00 Test Item Value Reference Range Interpretation Comments Hct (test code = Hct) 26.2 36.0-48.0 [facility] RegionalIbpymecIKRMRDOGMY1788-70-48 11:44:00 Test Item Value Reference Range Interpretation Comments Platelet (test code = Platelet) 215 133-450 [facility] RegionalXhimzqnYIQQJYCHNI9016-76-88 11:44:00 Test Item Value Reference Range Interpretation Comments MCHC (test code = MCHC) 33.8 32.0-36.0 [facility] RegionalCquerrhSBCLDKDHTB0600-48-80 11:44:00 Test Item Value Reference Range Interpretation Comments MPV (test code = MPV) 6.8 7.4-10.4 [facility] RegionalKlauolxPBDSJIXJPD6663-16-64 11:44:00 Test Item Value Reference Range Interpretation Comments RDW (test code = RDW) 12.7 11.5-14.5 [facility] RegionalYunfcqbYOKRSNKPOL4660-16-83 11:44:00 Test Item Value Reference Range Interpretation Comments Hgb (test code = Hgb) 8.9 12.0-16.0 [facility] RegionalGbeygjpROTYTIYJUK6333-28-50 11:44:00 Test Item Value Reference Range Interpretation Comments WBC (test code = WBC) 7.6 3.7-10.4 [facility] RegionalRwiralvCMICGXNMJE3211-67-72 11:44:00 Test Item Value Reference Range Interpretation Comments RBC (test code = RBC) 2.79 4.20-5.40 [facility]laytgyHJQDMOAMLU9523-80-20 11:44:00 Test Item Value Reference Range Interpretation Comments Monocytes # (test code 1.2 See_Comment [Aut omated message] The = Monocytes #) system which generated this result tra nsmitted reference range : <=0.8. The reference r kemar was not used to int erpret this result as normal/abnormal . [facility]JbschapQOLMQKZEPY5009-07-79 11:44:00 Test Item Value Reference Range Interpretation Comments Lymphocytes # (test code = Lymphocytes 1.2 1.0-5.5 #) [facility] HospitalRkrnenkMKGECFESOT6748-70-74 11:44:00 Test Item Value Reference Range Interpretation Comments Monocytes (test code = Monocytes) 16.0 2.0-12.0 [facility] HospitalBtxpoapHPOUCDNJKR9074-05-98 11:44:00 Test Item Value Reference Range Interpretation Comments Lymphocytes (test code = Lymphocytes) 15.8 20.0-40.0 [facility] HospitalEnymgvzMTYCLNCACX5641-91-23 11:44:00 Test Item Value Reference Range Interpretation Comments Segs (test code = Segs) 67.9 45.0-75.0 [facility] HospitalDtauyaiRRRXVZGGJK8302-72-88 11:44:00 Test Item Value Reference Range Interpretation Comments Segs-Bands # (test code = Segs-Bands #) 5.1 1.5-8.1 [facility] HospitalGlveyxnSJTTGYKYKE3777-02-62 11:44:00 Test Item Value Reference Range Interpretation Comments Basophils (test code = 0.3 See_Comment [Aut omated message] The Basophils) system which ge nerated this result tra nsmitted reference range : <=1.0. The reference r kemar was not used to int erpret this result as normal/abnormal . [facility] CampusPARATHYROID OQXOZPV1014-65-99 11:44:00 Test Item Value Reference Range Interpretation Comments PTH Intact (test code = PTH Intact) 122.9 18.4-80.1 [facility] CampusCHEM ZOAGB8804-77-42 11:44:00 Test Item Value Reference Range Interpretation Comments Vitamin D, 25-OH, Total (test code = 12.4 30.0-100.0 Vitamin D, 25-OH, Total) [facility]RqccgdkUWGEKVQWDMOP8865-67-13 11:44:00 Test Item Value Reference Range Interpretation Comments AGAP (test code = AGAP) 13.9 10.0-20.0 [facility] HospitalAfenngvLIGHYEBSTDUQ9742-08-62 11:44:00 Test Item Value Reference Range Interpretation Comments eGFR (test code = eGFR) 82 [facility] HospitalVtmlshzJNUTEDIMWKXI2845-05-26 11:44:00 Test Item Value Reference Range Interpretation Comments Chloride Lvl (test code = Chloride Lvl) 110 95-109 [facility] HospitalTiqzmlyZOUVMIYXNMGW2500-07-07 11:44:00 Test Item Value Reference Range Interpretation Comments CO2 (test code = CO2) 24 24-32 [facility] HospitalGuzjjbwUBMCESZPEDNL3380-82-83 11:44:00 Test Item Value Reference Range Interpretation Comments Sodium Lvl (test code = Sodium Lvl) 144 135-145 [facility] HospitalXthhbxtJXPHXLTSJTZC2244-97-01 11:44:00 Test Item Value Reference Range Interpretation Comments Potassium Lvl (test code = Potassium 3.9 3.5-5.1 Lvl) [facility] HospitalFmrzqjpQGIPDDXBIQMX1984-62-48 11:44:00 Test Item Value Reference Range Interpretation Comments BUN (test code = BUN) 20 7-22 [facility] HospitalNvredmoNJTMAFBZHVNC5617-67-64 11:44:00 Test Item Value Reference Range Interpretation Comments Creatinine Lvl (test code = Creatinine 0.68 0.50-1.40 Lvl) [facility] HospitalTsiwikdFUGORHDXDKRG9726-53-40 11:44:00 Test Item Value Reference Range Interpretation Comments Glucose Lvl (test code = Glucose Lvl) 151 70-99 [facility] HospitalTqmajjiYQMYKLTCZURC9666-53-74 11:44:00 Test Item Value Reference Range Interpretation Comments Calcium Lvl (test code = Calcium Lvl) 7.9 8.5-10.5 [facility] RegionalJklqkstXPPKCSZRLD5773-49-66 11:44:00 Test Item Value Reference Range Interpretation Comments MCV (test code = MCV) 93.8 80.0-98.0 [facility] RegionalNznsxtyAABRKAKJQV5073-33-96 11:44:00 Test Item Value Reference Range Interpretation Comments MCH (test code = MCH) 31.7 pg 27.0-31.0 [facility] RegionalFrvjfvdXWMERJCQTV9343-11-85 11:44:00 Test Item Value Reference Range Interpretation Comments Hct (test code = Hct) 26.2 36.0-48.0 [facility] RegionalBurfduyJLKJXGRPNB2699-13-19 11:44:00 Test Item Value Reference Range Interpretation Comments Platelet (test code = Platelet) 215 133-450 [facility] RegionalIdyhqaiEAUOKNRFBY6003-06-92 11:44:00 Test Item Value Reference Range Interpretation Comments MCHC (test code = MCHC) 33.8 32.0-36.0 [facility] RegionalFcgfnbjVNWZEPPQBI5421-06-93 11:44:00 Test Item Value Reference Range Interpretation Comments MPV (test code = MPV) 6.8 7.4-10.4 [facility] RegionalMpeuluhYGORNAOSJA7868-51-60 11:44:00 Test Item Value Reference Range Interpretation Comments RDW (test code = RDW) 12.7 11.5-14.5 [facility] RegionalPupvwqvHAXDPIZMGU6211-64-72 11:44:00 Test Item Value Reference Range Interpretation Comments Hgb (test code = Hgb) 8.9 12.0-16.0 [facility] RegionalQcexkneSTLZEYQAGQ4075-66-91 11:44:00 Test Item Value Reference Range Interpretation Comments WBC (test code = WBC) 7.6 3.7-10.4 [facility] RegionalJxiqvauTFKAEEQDST1637-46-62 11:44:00 Test Item Value Reference Range Interpretation Comments RBC (test code = RBC) 2.79 4.20-5.40 [facility] RegionalUbfvzqvTCQAJTMXSS1870-99-87 11:44:00 Test Item Value Reference Range Interpretation Comments Monocytes # (test code 1.2 See_Comment [Aut omated message] The = Monocytes #) system which generated this result tra nsmitted reference range : <=0.8. The reference r kemar was not used to int erpret this result as normal/abnormal . [facility] RegionalZyeunedKBAQAMCNDK9843-97-49 11:44:00 Test Item Value Reference Range Interpretation Comments Lymphocytes # (test code = Lymphocytes 1.2 1.0-5.5 #) [facility] RegionalJowxeqqTPKGTATHAF5214-09-63 11:44:00 Test Item Value Reference Range Interpretation Comments Monocytes (test code = Monocytes) 16.0 2.0-12.0 [facility] RegionalRigzutrJMSVXFIZCC7647-69-20 11:44:00 Test Item Value Reference Range Interpretation Comments Lymphocytes (test code = Lymphocytes) 15.8 20.0-40.0 [facility] RegionalLcthpedYMLJWHKASH2955-67-70 11:44:00 Test Item Value Reference Range Interpretation Comments Segs (test code = Segs) 67.9 45.0-75.0 [facility] CampusKqkpecqHDMUEBYALB7197-15-95 11:44:00 Test Item Value Reference Range Interpretation Comments Segs-Bands # (test code = Segs-Bands #) 5.1 1.5-8.1 [facility] CampusYvgsuhlCINPASFBQL3134-66-00 11:44:00 Test Item Value Reference Range Interpretation Comments Basophils (test code = 0.3 See_Comment [Aut omated message] The Basophils) system which ge nerated this result tra nsmitted reference range : <=1.0. The reference r kemar was not used to int erpret this result as normal/abnormal . [facility] CampusPARATHYROID GSSMMJW6525-97-69 11:44:00 Test Item Value Reference Range Interpretation Comments PTH Intact (test code = PTH Intact) 122.9 18.4-80.1 [facility] [employer] MUYDANP3129-00-45 09:21:00 Test Item Value Reference Range Interpretation Comments ABO/Rh (test code = ABO/Rh) O POS [facility] [employer] MZOPLFO7397-74-14 09:21:00 Test Item Value Reference Range Interpretation Comments Antibody Scrn (test Negative (02/04/18 4:21 code = Antibody Scrn) AM) [facility] [employer] DVKWVED6529-33-44 09:21:00 Test Item Value Reference Range Interpretation Comments ABO/Rh (test code = ABO/Rh) O POS [facility] [employer] FKFLABH2326-38-75 09:21:00 Test Item Value Reference Range Interpretation Comments Antibody Scrn (test Negative (02/04/18 4:21 code = Antibody Scrn) AM) [facility] IND [employer] QJRGW9829-93-57 09:06:59 Test Item Value Reference Range Interpretation Comments Lactic Acid Lvl (test code = Lactic 0.9 0.5-2.2 Acid Lvl) [facility] IjftqcfGOCPYDYGBPRC7578-25-48 09:06:59 Test Item Value Reference Range Interpretation Comments AGAP (test code = AGAP) 11.9 10.0-20.0 [facility] UhgyogfJIVIADECHTRF9852-07-62 09:06:59 Test Item Value Reference Range Interpretation Comments eGFR (test code = eGFR) 83 [facility]jalueaQEMJVYLMDVDA4021-98-92 09:06:59 Test Item Value Reference Range Interpretation Comments Calcium Lvl (test code = Calcium Lvl) 8.1 8.5-10.5 [facility] HospitalXhwjvfiWXEEUUNOULQT9014-58-15 09:06:59 Test Item Value Reference Range Interpretation Comments CO2 (test code = CO2) 22 24-32 [facility] HospitalTgqesqyGRGDACRAPJAH9351-87-24 09:06:59 Test Item Value Reference Range Interpretation Comments Sodium Lvl (test code = Sodium Lvl) 140 135-145 [facility] HospitalMovzohbFHMZVEJQHHBG2383-55-29 09:06:59 Test Item Value Reference Range Interpretation Comments Creatinine Lvl (test code = Creatinine 0.67 0.50-1.40 Lvl) [facility] HospitalOajevquQZZDNCVFKRUE6037-36-21 09:06:59 Test Item Value Reference Range Interpretation Comments BUN (test code = BUN) 22 7-22 [facility] HospitalPhznnacXGKXURBMLWBV1185-24-03 09:06:59 Test Item Value Reference Range Interpretation Comments Glucose Lvl (test code = Glucose Lvl) 135 70-99 [facility] HospitalGfufpyyWUPREMVNHTLV3042-46-03 09:06:59 Test Item Value Reference Range Interpretation Comments Chloride Lvl (test code = Chloride Lvl) 110 95-109 [facility] HospitalTtxbpiqHWTPBZOYPPUN1217-31-71 09:06:59 Test Item Value Reference Range Interpretation Comments Potassium Lvl (test code = Potassium 3.9 3.5-5.1 Lvl) [facility] RegionalIdnwqgmBLRVMQXFBA5167-01-34 09:06:59 Test Item Value Reference Range Interpretation Comments PTT (test code = PTT) 24.7 s 22.9-35.8 [facility] RegionalOjumjjdCZJLVXFBMI3098-31-55 09:06:59 Test Item Value Reference Range Interpretation Comments INR (test code = INR) 1.01 1 0.85-1.17 [facility] RegionalOpolodsKYTVKSOVVK2278-76-53 09:06:59 Test Item Value Reference Range Interpretation Comments PT (test code = PT) 13.3 s 12.0-14.7 [facility] RegionalZfflogkHCHWHVVZBQ0649-50-33 09:06:59 Test Item Value Reference Range Interpretation Comments Platelet (test code = Platelet) 232 133-450 [facility] RegionalVtzjlpfDSQXWYKZMN6057-01-65 09:06:59 Test Item Value Reference Range Interpretation Comments MPV (test code = MPV) 7.1 7.4-10.4 [facility] RegionalTbursqnJITGLDUCBY3545-28-16 09:06:59 Test Item Value Reference Range Interpretation Comments Hct (test code = Hct) 32.2 36.0-48.0 [facility] RegionalUridvgvIZKDRGTJJA3169-66-33 09:06:59 Test Item Value Reference Range Interpretation Comments RBC (test code = RBC) 3.42 4.20-5.40 [facility] RegionalOgvpesgOIKAFNSDHT4694-14-93 09:06:59 Test Item Value Reference Range Interpretation Comments Hgb (test code = Hgb) 10.8 12.0-16.0 [facility] RegionalAppmmyoGPMWAFRFSQ4714-16-63 09:06:59 Test Item Value Reference Range Interpretation Comments WBC (test code = WBC) 8.5 3.7-10.4 [facility] RegionalYvscxyjSYAFOTQCLE2188-16-45 09:06:59 Test Item Value Reference Range Interpretation Comments MCHC (test code = MCHC) 33.5 32.0-36.0 [facility] RegionalOavtucpWALZKNOIOV0400-15-71 09:06:59 Test Item Value Reference Range Interpretation Comments RDW (test code = RDW) 13.0 11.5-14.5 [facility] RegionalCupsmmdQRUEBWQHEK1852-70-04 09:06:59 Test Item Value Reference Range Interpretation Comments MCV (test code = MCV) 94.1 80.0-98.0 [facility] RegionalIvhaowdGUOCNNQNIB9238-49-41 09:06:59 Test Item Value Reference Range Interpretation Comments MCH (test code = MCH) 31.5 pg 27.0-31.0 [facility] RegionalPtgjqcgXTGOGVUFBQ6539-33-80 09:06:59 Test Item Value Reference Range Interpretation Comments Eosinophils (test code = 2.3 See_Comment [A utomated message] The Eosinophils) system which ge nerated this result tra nsmitted reference range : <=4.0. The reference r kemar was not used to int erpret this result as normal/abnormal . [facility] RegionalZbnpzluEJHTLRVTUB6029-29-98 09:06:59 Test Item Value Reference Range Interpretation Comments Lymphocytes # (test code = Lymphocytes 1.7 1.0-5.5 #) [facility] RegionalCigwfgnTRGOMLFIYA6396-29-93 09:06:59 Test Item Value Reference Range Interpretation Comments Segs-Bands # (test code = Segs-Bands #) 5.5 1.5-8.1 [facility] RegionalWzdhlikKPISMZXVIC8084-72-30 09:06:59 Test Item Value Reference Range Interpretation Comments Basophils (test code = 0.8 See_Comment [Aut omated message] The Basophils) system which ge nerated this result tra nsmitted reference range : <=1.0. The reference r kemar was not used to int erpret this result as normal/abnormal . [facility] RegionalVhjnowcJMIMOURNUF2787-76-64 09:06:59 Test Item Value Reference Range Interpretation Comments Basophils # (test code 0.1 See_Comment [Aut omated message] The = Basophils #) system which generated this result tra nsmitted reference range : <=0.2. The reference r kemar was not used to int erpret this result as normal/abnormal . [facility] RegionalEmnvqyjWIOIJMPDXT5360-36-36 09:06:59 Test Item Value Reference Range Interpretation Comments Eosinophils # (test code 0.2 See_Comment [A utomated message] The = Eosinophils #) system whic h generated this result tra nsmitted reference range : <=0.5. The reference r kemar was not used to int erpret this result as normal/abnormal . [facility] RegionalIlopylcZPWSIRIRRF0309-86-78 09:06:59 Test Item Value Reference Range Interpretation Comments Monocytes # (test code 1.1 See_Comment [Aut omated message] The = Monocytes #) system which generated this result tra nsmitted reference range : <=0.8. The reference r kemar was not used to int erpret this result as normal/abnormal . [facility] RegionalTqbsnmyLCUZQREBIE7747-69-31 09:06:59 Test Item Value Reference Range Interpretation Comments Segs (test code = Segs) 64.6 45.0-75.0 [facility] RegionalCozvheiABTTAGHOMY8424-42-98 09:06:59 Test Item Value Reference Range Interpretation Comments Lymphocytes (test code = Lymphocytes) 19.7 20.0-40.0 [facility] RegionalYpboehqQNQYRLUAEQ6506-45-04 09:06:59 Test Item Value Reference Range Interpretation Comments Monocytes (test code = Monocytes) 12.6 2.0-12.0 [facility]2018-05-24 09:06:59 Test Item Value Reference Range Interpretation Comments Lactic Acid Lvl (test code = Lactic 0.9 0.5-2.2 Acid Lvl) [facility] HospitalTiztdwyTXNPNINSMIAQ4815-77-03 09:06:59 Test Item Value Reference Range Interpretation Comments AGAP (test code = AGAP) 11.9 10.0-20.0 [facility] HospitalDrsrqqsAINLMNNQNAQZ9802-23-48 09:06:59 Test Item Value Reference Range Interpretation Comments eGFR (test code = eGFR) 83 [facility] HospitalPdybjkdNWFFQUVWTLHG5339-34-81 09:06:59 Test Item Value Reference Range Interpretation Comments Calcium Lvl (test code = Calcium Lvl) 8.1 8.5-10.5 [facility] HospitalZadczdrRWHFYBLDBSIL8716-06-98 09:06:59 Test Item Value Reference Range Interpretation Comments CO2 (test code = CO2) 22 24-32 [facility] HospitalImyvyagMQGLQGWMTURC4174-33-84 09:06:59 Test Item Value Reference Range Interpretation Comments Sodium Lvl (test code = Sodium Lvl) 140 135-145 [facility] HospitalUjuvtlcELJFYXZQNPLJ3788-84-37 09:06:59 Test Item Value Reference Range Interpretation Comments Creatinine Lvl (test code = Creatinine 0.67 0.50-1.40 Lvl) [facility] HospitalVuvyyslTKQWMTCXCGJR6490-82-78 09:06:59 Test Item Value Reference Range Interpretation Comments BUN (test code = BUN) 22 7-22 [facility] HospitalSbwcjfpLFLCVTCVNLFO8381-09-73 09:06:59 Test Item Value Reference Range Interpretation Comments Glucose Lvl (test code = Glucose Lvl) 135 70-99 [facility] HospitalEeovzqgTJJABTMXWHWW9742-97-66 09:06:59 Test Item Value Reference Range Interpretation Comments Chloride Lvl (test code = Chloride Lvl) 110 95-109 [facility] HospitalTssqnfrSWCAZZMKLYRA3801-33-74 09:06:59 Test Item Value Reference Range Interpretation Comments Potassium Lvl (test code = Potassium 3.9 3.5-5.1 Lvl) [facility] RegionalUztwspbPRNKHPGAZI6856-86-02 09:06:59 Test Item Value Reference Range Interpretation Comments PTT (test code = PTT) 24.7 s 22.9-35.8 [facility] RegionalCxpisdyBNQJGFQDGI7271-21-27 09:06:59 Test Item Value Reference Range Interpretation Comments INR (test code = INR) 1.01 1 0.85-1.17 [facility] RegionalZwivxkvLURWJINRPD2611-34-31 09:06:59 Test Item Value Reference Range Interpretation Comments PT (test code = PT) 13.3 s 12.0-14.7 [facility] RegionalIyukkzpFBACBKCIXV9302-79-03 09:06:59 Test Item Value Reference Range Interpretation Comments Platelet (test code = Platelet) 232 133-450 [facility] RegionalMqgteasSHCFVCTXYP9673-16-25 09:06:59 Test Item Value Reference Range Interpretation Comments MPV (test code = MPV) 7.1 7.4-10.4 [facility] RegionalGusweykGLLZRNOFIS6045-84-27 09:06:59 Test Item Value Reference Range Interpretation Comments Hct (test code = Hct) 32.2 36.0-48.0 [facility] RegionalNsrvfyqPYIWYQICJH2222-40-38 09:06:59 Test Item Value Reference Range Interpretation Comments RBC (test code = RBC) 3.42 4.20-5.40 [facility] RegionalCiuuuxhIBBWOTKOSD7310-25-93 09:06:59 Test Item Value Reference Range Interpretation Comments Hgb (test code = Hgb) 10.8 12.0-16.0 [facility] RegionalDlwmdomWTXOQHWHDD5104-48-80 09:06:59 Test Item Value Reference Range Interpretation Comments WBC (test code = WBC) 8.5 3.7-10.4 [facility] RegionalXzbpdloDKOQDSFUIJ6377-42-77 09:06:59 Test Item Value Reference Range Interpretation Comments MCHC (test code = MCHC) 33.5 32.0-36.0 [facility] RegionalJgylvlwWNFWVSQNHC6814-77-92 09:06:59 Test Item Value Reference Range Interpretation Comments RDW (test code = RDW) 13.0 11.5-14.5 [facility] RegionalAsnmvybPJYUVDUXJI5260-47-37 09:06:59 Test Item Value Reference Range Interpretation Comments MCV (test code = MCV) 94.1 80.0-98.0 [facility] RegionalDcvwigaBITGCWQZIP3942-41-36 09:06:59 Test Item Value Reference Range Interpretation Comments MCH (test code = MCH) 31.5 pg 27.0-31.0 [facility] RegionalAxqudrrZKDTKPJJWN9119-12-61 09:06:59 Test Item Value Reference Range Interpretation Comments Eosinophils (test code = 2.3 See_Comment [A utomated message] The Eosinophils) system which ge nerated this result tra nsmitted reference range : <=4.0. The reference r kemar was not used to int erpret this result as normal/abnormal . [facility] RegionalJygpndtEZLCVVBRMM7365-73-40 09:06:59 Test Item Value Reference Range Interpretation Comments Lymphocytes # (test code = Lymphocytes 1.7 1.0-5.5 #) [facility] RegionalIkzetkaQTCPCCEURU1089-29-39 09:06:59 Test Item Value Reference Range Interpretation Comments Segs-Bands # (test code = Segs-Bands #) 5.5 1.5-8.1 [facility] RegionalYjfwkwuUCTTIXUKFL8028-72-25 09:06:59 Test Item Value Reference Range Interpretation Comments Basophils (test code = 0.8 See_Comment [Aut omated message] The Basophils) system which ge nerated this result tra nsmitted reference range : <=1.0. The reference r kemar was not used to int erpret this result as normal/abnormal . [facility]KkvypiiCTCBGRNJGN6092-90-52 09:06:59 Test Item Value Reference Range Interpretation Comments Basophils # (test code 0.1 See_Comment [Aut omated message] The = Basophils #) system which generated this result tra nsmitted reference range : <=0.2. The reference r kemar was not used to int erpret this result as normal/abnormal . [facility] RegionalWlnjnrrNYGJRTFWSX7094-48-39 09:06:59 Test Item Value Reference Range Interpretation Comments Eosinophils # (test code 0.2 See_Comment [A utomated message] The = Eosinophils #) system whic h generated this result tra nsmitted reference range : <=0.5. The reference r kemar was not used to int erpret this result as normal/abnormal . [facility] RegionalQiotrqqTFCNZHZVJW2265-55-73 09:06:59 Test Item Value Reference Range Interpretation Comments Monocytes # (test code 1.1 See_Comment [Aut omated message] The = Monocytes #) system which generated this result tra nsmitted reference range : <=0.8. The reference r kemar was not used to int erpret this result as normal/abnormal . [facility] RegionalBwsipluUEGAPTZSTK6338-55-80 09:06:59 Test Item Value Reference Range Interpretation Comments Segs (test code = Segs) 64.6 45.0-75.0 [facility] RegionalVkfsnqeCXKZPPHUZV8769-37-84 09:06:59 Test Item Value Reference Range Interpretation Comments Lymphocytes (test code = Lymphocytes) 19.7 20.0-40.0 [facility] RegionalNrogazlQKTPZWCMYQ7664-10-66 09:06:59 Test Item Value Reference Range Interpretation Comments Monocytes (test code = Monocytes) 12.6 2.0-12.0 [facility]XiwedmvLAPHFXUQSTOV8734-48-15 11:14:00 Test Item Value Reference Range Interpretation Comments AGAP (test code = AGAP) 11.7 10.0-20.0 [facility] HospitalKiqrgqpRKNLQWQLDSDO5381-66-29 11:14:00 Test Item Value Reference Range Interpretation Comments eGFR (test code = eGFR) 99 [facility] HospitalDgalkyzFDTPPCFWNTRQ2836-53-50 11:14:00 Test Item Value Reference Range Interpretation Comments CO2 (test code = CO2) 29 24-32 [facility] HospitalAsqcrzbCZKJIXLYABVT2807-15-89 11:14:00 Test Item Value Reference Range Interpretation Comments Chloride Lvl (test code = Chloride Lvl) 104 95-109 [facility] HospitalPpwmqqnVALIZRVNGMMI8155-24-94 11:14:00 Test Item Value Reference Range Interpretation Comments Potassium Lvl (test code = Potassium 3.7 3.5-5.1 Lvl) [facility] HospitalResbyxqRNRQOZRFOBPK4256-98-43 11:14:00 Test Item Value Reference Range Interpretation Comments Sodium Lvl (test code = Sodium Lvl) 141 135-145 [facility] HospitalKbpppwjYWPCLOEZKWSK1557-84-12 11:14:00 Test Item Value Reference Range Interpretation Comments Creatinine Lvl (test code = Creatinine 0.40 0.50-1.40 Lvl) [facility] HospitalRdsiakhIROCVPHBOBZL0466-64-81 11:14:00 Test Item Value Reference Range Interpretation Comments Calcium Lvl (test code = Calcium Lvl) 8.1 8.5-10.5 [facility] HospitalQulgahkZEOTFPLXSRVW8808-57-43 11:14:00 Test Item Value Reference Range Interpretation Comments BUN (test code = BUN) 8 7-22 [facility] HospitalQqgntkfBELSRUORWBEA4862-05-08 11:14:00 Test Item Value Reference Range Interpretation Comments Glucose Lvl (test code = Glucose Lvl) 94 70-99 [facility] RegionalYqhqqcoMGTFOVJVIV7141-92-15 11:14:00 Test Item Value Reference Range Interpretation Comments RDW (test code = RDW) 16.6 11.5-14.5 [facility] RegionalMzmyftrDTOZKWKJNB8036-92-03 11:14:00 Test Item Value Reference Range Interpretation Comments MPV (test code = MPV) 7.2 7.4-10.4 [facility] RegionalHwmddtlYRTCXTLTOS8798-55-12 11:14:00 Test Item Value Reference Range Interpretation Comments Platelet (test code = Platelet) 299 133-450 [facility] RegionalWimnnwkVHMZDAJILZ5367-76-21 11:14:00 Test Item Value Reference Range Interpretation Comments MCH (test code = MCH) 29.8 pg 27.0-31.0 [facility] RegionalKqekxemNOFQHYQNQG2970-22-80 11:14:00 Test Item Value Reference Range Interpretation Comments MCHC (test code = MCHC) 32.9 32.0-36.0 [facility] RegionalYyowdgqUWZDSLXWEP3320-82-65 11:14:00 Test Item Value Reference Range Interpretation Comments MCV (test code = MCV) 90.5 80.0-98.0 [facility] RegionalWfpboutBWBSICAZOQ8734-20-14 11:14:00 Test Item Value Reference Range Interpretation Comments RBC (test code = RBC) 3.41 4.20-5.40 [facility] RegionalWzdaqneIUDEHDRECX1090-77-68 11:14:00 Test Item Value Reference Range Interpretation Comments WBC (test code = WBC) 8.1 3.7-10.4 [facility] RegionalWezuczuHJRWGELLQS2002-26-89 11:14:00 Test Item Value Reference Range Interpretation Comments Hct (test code = Hct) 30.9 36.0-48.0 [facility] RegionalBlmuklkJJIEPTICLP5022-33-10 11:14:00 Test Item Value Reference Range Interpretation Comments Hgb (test code = Hgb) 10.2 12.0-16.0 [facility] RegionalIuwdracRLMEGIKIOO6356-17-01 11:14:00 Test Item Value Reference Range Interpretation Comments Basophils (test code = 1.1 See_Comment [Aut omated message] The Basophils) system which ge nerated this result tra nsmitted reference range : <=1.0. The reference r kemar was not used to int erpret this result as normal/abnormal . [facility] RegionalFsliafeHIMQITVWSK6165-78-88 11:14:00 Test Item Value Reference Range Interpretation Comments Segs-Bands # (test code = Segs-Bands #) 5.4 1.5-8.1 [facility] RegionalVzmcfqwJXQTYYXJTA3813-13-82 11:14:00 Test Item Value Reference Range Interpretation Comments Basophils # (test code 0.1 See_Comment [Aut omated message] The = Basophils #) system which generated this result tra nsmitted reference range : <=0.2. The reference r kemar was not used to int erpret this result as normal/abnormal . [facility] RegionalTisqkgzIVBWRWHYKR2961-98-21 11:14:00 Test Item Value Reference Range Interpretation Comments Lymphocytes # (test code = Lymphocytes 1.2 1.0-5.5 #) [facility] RegionalCvdevvzPICTSPEERK0796-41-97 11:14:00 Test Item Value Reference Range Interpretation Comments Monocytes # (test code 0.8 See_Comment [Aut omated message] The = Monocytes #) system which generated this result tra nsmitted reference range : <=0.8. The reference r kemar was not used to int erpret this result as normal/abnormal . [facility] RegionalJkmdprkRYNOSZZKGI1651-81-19 11:14:00 Test Item Value Reference Range Interpretation Comments Eosinophils # (test code 0.6 See_Comment [A utomated message] The = Eosinophils #) system whic h generated this result tra nsmitted reference range : <=0.5. The reference r kemar was not used to int erpret this result as normal/abnormal . [facility] RegionalRhfymktCUVNVEMBEV1327-48-79 11:14:00 Test Item Value Reference Range Interpretation Comments Segs (test code = Segs) 66.7 45.0-75.0 [facility] RegionalCgtwqwkXWPXYOYAUM2105-54-35 11:14:00 Test Item Value Reference Range Interpretation Comments Lymphocytes (test code = Lymphocytes) 15.1 20.0-40.0 [facility] RegionalNaimtgbXVMZXQPBDM4771-55-91 11:14:00 Test Item Value Reference Range Interpretation Comments Monocytes (test code = Monocytes) 9.7 2.0-12.0 [facility] RegionalWaacrkbJNDCSGOTSX0163-89-64 11:14:00 Test Item Value Reference Range Interpretation Comments Eosinophils (test code = 7.4 See_Comment [A utomated message] The Eosinophils) system which ge nerated this result tra nsmitted reference range : <=4.0. The reference r kemar was not used to int erpret this result as normal/abnormal . [facility]MsslmduTBDPLIVXPZUT4176-25-02 11:14:00 Test Item Value Reference Range Interpretation Comments AGAP (test code = AGAP) 11.7 10.0-20.0 [facility] HospitalHqdnaljOCSCLOLRTZLO5801-48-77 11:14:00 Test Item Value Reference Range Interpretation Comments eGFR (test code = eGFR) 99 [facility] HospitalIoihdonGATLDZZXTSZM4142-02-64 11:14:00 Test Item Value Reference Range Interpretation Comments CO2 (test code = CO2) 29 24-32 [facility] HospitalTxthfnsYOYHQMLXCJYY1557-38-94 11:14:00 Test Item Value Reference Range Interpretation Comments Chloride Lvl (test code = Chloride Lvl) 104 95-109 [facility] HospitalRyuvugnKEQGNLUEHCKY7556-59-75 11:14:00 Test Item Value Reference Range Interpretation Comments Potassium Lvl (test code = Potassium 3.7 3.5-5.1 Lvl) [facility] HospitalFokiimrBYMHMUBMMLZR2635-13-37 11:14:00 Test Item Value Reference Range Interpretation Comments Sodium Lvl (test code = Sodium Lvl) 141 135-145 [facility] HospitalUcszisjUWLJIUMRGJOW6874-64-31 11:14:00 Test Item Value Reference Range Interpretation Comments Creatinine Lvl (test code = Creatinine 0.40 0.50-1.40 Lvl) [facility] HospitalMwajxxuPIHQOKODIANF1900-67-40 11:14:00 Test Item Value Reference Range Interpretation Comments Calcium Lvl (test code = Calcium Lvl) 8.1 8.5-10.5 [facility] HospitalSjlieqoYUKKOQGXVFFC5114-90-48 11:14:00 Test Item Value Reference Range Interpretation Comments BUN (test code = BUN) 8 7-22 [facility] HospitalXnjofeiDTQPPBOQXWNE5596-70-94 11:14:00 Test Item Value Reference Range Interpretation Comments Glucose Lvl (test code = Glucose Lvl) 94 70-99 [facility] RegionalSvvomraKIZXJEXZIY9474-69-60 11:14:00 Test Item Value Reference Range Interpretation Comments RDW (test code = RDW) 16.6 11.5-14.5 [facility] RegionalRxfpwsaYCVJEZGFDA3298-63-11 11:14:00 Test Item Value Reference Range Interpretation Comments MPV (test code = MPV) 7.2 7.4-10.4 [facility] RegionalNdznkmiPTPNYSSCRA4053-82-11 11:14:00 Test Item Value Reference Range Interpretation Comments Platelet (test code = Platelet) 299 133-450 [facility] RegionalNxnknofWPLCTOSRGK5452-81-44 11:14:00 Test Item Value Reference Range Interpretation Comments MCH (test code = MCH) 29.8 pg 27.0-31.0 [facility] RegionalNuqmbstBKJKBQCGHG3976-56-06 11:14:00 Test Item Value Reference Range Interpretation Comments MCHC (test code = MCHC) 32.9 32.0-36.0 [facility] RegionalSaxcqemCIYPXGSMIR9877-54-59 11:14:00 Test Item Value Reference Range Interpretation Comments MCV (test code = MCV) 90.5 80.0-98.0 [facility] RegionalQxexwvxMAJNUUMBVJ4401-63-19 11:14:00 Test Item Value Reference Range Interpretation Comments RBC (test code = RBC) 3.41 4.20-5.40 [facility] RegionalGuebifhTUCZYRFLTP2803-80-12 11:14:00 Test Item Value Reference Range Interpretation Comments WBC (test code = WBC) 8.1 3.7-10.4 [facility] RegionalVazmpziWUZJLQXVYF4000-70-09 11:14:00 Test Item Value Reference Range Interpretation Comments Hct (test code = Hct) 30.9 36.0-48.0 [facility] RegionalQuncykeDGJTXRRIEM2931-11-62 11:14:00 Test Item Value Reference Range Interpretation Comments Hgb (test code = Hgb) 10.2 12.0-16.0 [facility] RegionalKlospmpBLPAAMXCCT7042-54-39 11:14:00 Test Item Value Reference Range Interpretation Comments Basophils (test code = 1.1 See_Comment [Aut omated message] The Basophils) system which ge nerated this result tra nsmitted reference range : <=1.0. The reference r kemar was not used to int erpret this result as normal/abnormal . [facility] RegionalOwgktoqULOQNZSYOW4685-08-87 11:14:00 Test Item Value Reference Range Interpretation Comments Segs-Bands # (test code = Segs-Bands #) 5.4 1.5-8.1 [facility] RegionalAdmiexqANPZHBUCHC2880-53-53 11:14:00 Test Item Value Reference Range Interpretation Comments Basophils # (test code 0.1 See_Comment [Aut omated message] The = Basophils #) system which generated this result tra nsmitted reference range : <=0.2. The reference r kemar was not used to int erpret this result as normal/abnormal . [facility]OhxejduYKMLFODRUB7342-66-21 11:14:00 Test Item Value Reference Range Interpretation Comments Lymphocytes # (test code = Lymphocytes 1.2 1.0-5.5 #) [facility] RegionalCkiwjjpOWLOAGVTVT3010-29-39 11:14:00 Test Item Value Reference Range Interpretation Comments Monocytes # (test code 0.8 See_Comment [Aut omated message] The = Monocytes #) system which generated this result tra nsmitted reference range : <=0.8. The reference r kemar was not used to int erpret this result as normal/abnormal . [facility] RegionalIfqaxqjWWQETDLHBV1909-10-22 11:14:00 Test Item Value Reference Range Interpretation Comments Eosinophils # (test code 0.6 See_Comment [A utomated message] The = Eosinophils #) system whic h generated this result tra nsmitted reference range : <=0.5. The reference r kemar was not used to int erpret this result as normal/abnormal . [facility] RegionalUhmcqsiLGVFEOTWYF2537-77-77 11:14:00 Test Item Value Reference Range Interpretation Comments Segs (test code = Segs) 66.7 45.0-75.0 [facility] RegionalXszlcgpVYEYJKBOTH8064-63-00 11:14:00 Test Item Value Reference Range Interpretation Comments Lymphocytes (test code = Lymphocytes) 15.1 20.0-40.0 [facility] RegionalKmnxkhsKDULRJIMTP1716-22-76 11:14:00 Test Item Value Reference Range Interpretation Comments Monocytes (test code = Monocytes) 9.7 2.0-12.0 [facility] RegionalVlerpqmYUBQWLWWUM5525-78-76 11:14:00 Test Item Value Reference Range Interpretation Comments Eosinophils (test code = 7.4 See_Comment [A utomated message] The Eosinophils) system which ge nerated this result tra nsmitted reference range : <=4.0. The reference r kemar was not used to int erpret this result as normal/abnormal . [facility] RegionalDkplrilXDWRANQRZB4352-58-43 02:47:00 Test Item Value Reference Range Interpretation Comments Hct (test code = Hct) 30.2 36.0-48.0 [facility] RegionalJynsvhsEWKFSRUOTW8802-12-27 02:47:00 Test Item Value Reference Range Interpretation Comments Hgb (test code = Hgb) 10.1 12.0-16.0 [facility] RegionalRhyoceqMJLDYZTTXT6636-93-14 02:47:00 Test Item Value Reference Range Interpretation Comments Hct (test code = Hct) 30.2 36.0-48.0 [facility] RegionalImqapiyBZIHJJVFKJ5186-28-14 02:47:00 Test Item Value Reference Range Interpretation Comments Hgb (test code = Hgb) 10.1 12.0-16.0 [facility] RegionalDpnolqdBWAOEMQZVU0123-83-59 18:09:00 Test Item Value Reference Range Interpretation Comments Hgb (test code = Hgb) 9.4 12.0-16.0 [facility] RegionalCfgupvsINFBIWEVSR6313-54-23 18:09:00 Test Item Value Reference Range Interpretation Comments Hct (test code = Hct) 27.9 36.0-48.0 [facility] RegionalIkvwkmzWAFXIPDGQS3632-70-90 18:09:00 Test Item Value Reference Range Interpretation Comments Hgb (test code = Hgb) 9.4 12.0-16.0 [facility] RegionalZgywzuuXMNIWKIBNS8728-85-54 18:09:00 Test Item Value Reference Range Interpretation Comments Hct (test code = Hct) 27.9 36.0-48.0 [facility] RegionalMgsjnteULFSPXMGUT1283-82-74 10:49:00 Test Item Value Reference Range Interpretation Comments PT (test code = PT) 14.3 s 12.0-14.7 [facility] RegionalIxbzugdSVONNCHCGK2441-93-25 10:49:00 Test Item Value Reference Range Interpretation Comments PTT (test code = PTT) 34.3 s 22.9-35.8 [facility] RegionalUlhlogvRDTICEVNPZ1060-98-10 10:49:00 Test Item Value Reference Range Interpretation Comments INR (test code = INR) 1.08 0.85-1.17 [facility] RegionalYpxupvkBQYTXYBOJR5667-36-38 10:49:00 Test Item Value Reference Range Interpretation Comments Eosinophils (test code = 4.9 See_Comment [A utomated message] The Eosinophils) system which ge nerated this result tra nsmitted reference range : <=4.0. The reference r kemar was not used to int erpret this result as normal/abnormal . [facility] RegionalYzixgjhUKDUXRQYMU3321-56-27 10:49:00 Test Item Value Reference Range Interpretation Comments Monocytes (test code = Monocytes) 8.3 2.0-12.0 [facility] RegionalExuwmapEMHAYNHYBR4489-72-28 10:49:00 Test Item Value Reference Range Interpretation Comments Basophils # (test code 0.1 See_Comment [Aut omated message] The = Basophils #) system which generated this result tra nsmitted reference range : <=0.2. The reference r kemar was not used to int erpret this result as normal/abnormal . [facility] RegionalQilocblRSBRBKYWGD6532-88-60 10:49:00 Test Item Value Reference Range Interpretation Comments Lymphocytes # (test code = Lymphocytes 0.9 1.0-5.5 #) [facility] RegionalNkiotprQNCTQHBZGS2470-06-56 10:49:00 Test Item Value Reference Range Interpretation Comments Monocytes # (test code 0.8 See_Comment [Aut omated message] The = Monocytes #) system which generated this result tra nsmitted reference range : <=0.8. The reference r kemar was not used to int erpret this result as normal/abnormal . [facility] RegionalSidnvzbEQSMRFDJFX8775-64-96 10:49:00 Test Item Value Reference Range Interpretation Comments Basophils (test code = 0.7 See_Comment [Aut omated message] The Basophils) system which ge nerated this result tra nsmitted reference range : <=1.0. The reference r kemar was not used to int erpret this result as normal/abnormal . [facility] RegionalSxlthkgYTAFVMYDMF1183-16-10 10:49:00 Test Item Value Reference Range Interpretation Comments Segs-Bands # (test code = Segs-Bands #) 7.0 1.5-8.1 [facility] RegionalYwlylbyYGIWBJEKHF7496-76-77 10:49:00 Test Item Value Reference Range Interpretation Comments Lymphocytes (test code = Lymphocytes) 9.9 20.0-40.0 [facility] RegionalDcnzyztRZCRDJUAKR7474-34-61 10:49:00 Test Item Value Reference Range Interpretation Comments Segs (test code = Segs) 76.2 45.0-75.0 [facility] RegionalKmknroyAJLSIIOKWM1796-83-27 10:49:00 Test Item Value Reference Range Interpretation Comments Eosinophils # (test code 0.5 See_Comment [A utomated message] The = Eosinophils #) system whic h generated this result tra nsmitted reference range : <=0.5. The reference r kemar was not used to int erpret this result as normal/abnormal . [facility]XblbrmbXZWMZVIIUN0236-56-96 10:49:00 Test Item Value Reference Range Interpretation Comments WBC (test code = WBC) 9.2 3.7-10.4 [place] 663526-02-13 10:49:00 Test Item Value Reference Range Interpretation Comments MPV (test code = MPV) 7.5 7.4-10.4 [facility] RegionalZghrqecJVTNBFODDY0570-32-06 10:49:00 Test Item Value Reference Range Interpretation Comments MCV (test code = MCV) 90.5 80.0-98.0 [facility] RegionalQbskaxhNVBTVWABZS0163-18-14 10:49:00 Test Item Value Reference Range Interpretation Comments MCH (test code = MCH) 30.0 pg 27.0-31.0 [facility] RegionalLnzbogwBRNMPELKMO8543-91-98 10:49:00 Test Item Value Reference Range Interpretation Comments MCHC (test code = MCHC) 33.1 32.0-36.0 [facility] RegionalRyyfwdrKRSEBUGASQ3243-09-38 10:49:00 Test Item Value Reference Range Interpretation Comments RBC (test code = RBC) 2.88 4.20-5.40 [facility] RegionalYcwuunaVHVPJPHYFT3181-78-51 10:49:00 Test Item Value Reference Range Interpretation Comments Platelet (test code = Platelet) 246 133-450 [facility] RegionalElhrfoyPCNBZYAJRW8184-60-08 10:49:00 Test Item Value Reference Range Interpretation Comments RDW (test code = RDW) 16.9 11.5-14.5 [facility] RegionalBfswgtrWLTZYYIESN4279-91-90 10:49:00 Test Item Value Reference Range Interpretation Comments PT (test code = PT) 14.3 s 12.0-14.7 [facility] RegionalFxqihidJORQORIVFW2701-04-39 10:49:00 Test Item Value Reference Range Interpretation Comments PTT (test code = PTT) 34.3 s 22.9-35.8 [facility] RegionalOvoebahIKJSVWESPX8726-66-31 10:49:00 Test Item Value Reference Range Interpretation Comments INR (test code = INR) 1.08 0.85-1.17 [facility] RegionalXgqlgkrAQZAIQGYFK4607-98-25 10:49:00 Test Item Value Reference Range Interpretation Comments Eosinophils (test code = 4.9 See_Comment [A utomated message] The Eosinophils) system which ge nerated this result tra nsmitted reference range : <=4.0. The reference r kemar was not used to int erpret this result as normal/abnormal . [facility] RegionalDeppcugCRROPQJCBE2903-31-08 10:49:00 Test Item Value Reference Range Interpretation Comments Monocytes (test code = Monocytes) 8.3 2.0-12.0 [facility] RegionalZzskrezYAPTNUFDRO6248-55-75 10:49:00 Test Item Value Reference Range Interpretation Comments Basophils # (test code 0.1 See_Comment [Aut omated message] The = Basophils #) system which generated this result tra nsmitted reference range : <=0.2. The reference r kemar was not used to int erpret this result as normal/abnormal . [facility] RegionalWxjkrnhRWZHIDBYMP2534-44-95 10:49:00 Test Item Value Reference Range Interpretation Comments Lymphocytes # (test code = Lymphocytes 0.9 1.0-5.5 #) [facility] RegionalFzdvxmfWABJYCKJAJ7557-37-22 10:49:00 Test Item Value Reference Range Interpretation Comments Monocytes # (test code 0.8 See_Comment [Aut omated message] The = Monocytes #) system which generated this result tra nsmitted reference range : <=0.8. The reference r kemar was not used to int erpret this result as normal/abnormal . [facility] RegionalBcbmylaOUVSAJIFHL3192-76-75 10:49:00 Test Item Value Reference Range Interpretation Comments Basophils (test code = 0.7 See_Comment [Aut omated message] The Basophils) system which ge nerated this result tra nsmitted reference range : <=1.0. The reference r kemar was not used to int erpret this result as normal/abnormal . [facility] RegionalRffsfcoBZMWWEFUDB3850-12-50 10:49:00 Test Item Value Reference Range Interpretation Comments Segs-Bands # (test code = Segs-Bands #) 7.0 1.5-8.1 [facility] RegionalRanvknoFDBVPKPXTP1391-82-66 10:49:00 Test Item Value Reference Range Interpretation Comments Lymphocytes (test code = Lymphocytes) 9.9 20.0-40.0 [facility] RegionalFkciwgyUGSTGQEQUK7283-37-50 10:49:00 Test Item Value Reference Range Interpretation Comments Segs (test code = Segs) 76.2 45.0-75.0 [facility] RegionalFqvssahIWMGDAYDSI0403-39-94 10:49:00 Test Item Value Reference Range Interpretation Comments Eosinophils # (test code 0.5 See_Comment [A utomated message] The = Eosinophils #) [facility] h generated this result tra nsmitted reference range : <=0.5. The reference r kemar was not used to int erpret this result as normal/abnormal . [facility] RegionalAfbhxxmZBHXMDHIEA5437-90-22 10:49:00 Test Item Value Reference Range Interpretation Comments WBC (test code = WBC) 9.2 3.7-10.4 [facility] RegionalIuyziixRHALVABLPO8752-49-67 10:49:00 Test Item Value Reference Range Interpretation Comments MPV (test code = MPV) 7.5 7.4-10.4 [facility] RegionalWshtliwGOCMYIDEPH1184-91-46 10:49:00 Test Item Value Reference Range Interpretation Comments MCV (test code = MCV) 90.5 80.0-98.0 [facility] RegionalUdwzbgeJBTLHMCCTH3127-23-15 10:49:00 Test Item Value Reference Range Interpretation Comments MCH (test code = MCH) 30.0 pg 27.0-31.0 [facility] RegionalSrpgduuCQKIEZOFBU5700-21-04 10:49:00 Test Item Value Reference Range Interpretation Comments MCHC (test code = MCHC) 33.1 32.0-36.0 [facility] RegionalAolvruhBUHFLWLXWV0168-53-74 10:49:00 Test Item Value Reference Range Interpretation Comments RBC (test code = RBC) 2.88 4.20-5.40 [facility] RegionalSvasuxgBBYMVYJZLR9958-32-94 10:49:00 Test Item Value Reference Range Interpretation Comments Platelet (test code = Platelet) 246 133-450 [facility] RegionalTpzcckrHLHPIFLVFK3184-90-23 10:49:00 Test Item Value Reference Range Interpretation Comments RDW (test code = RDW) 16.9 11.5-14.5 [facility]2016-02-12 23:46:00 Test Item Value Reference Range Interpretation Comments UA Urobilinogen (test code = UA no gt 0.1-1.0 Urobilinogen) [facility]2016-02-12 23:46:00 Test Item Value Reference Range Interpretation Comments Micro? (test code = Performed *NA*(10/26/15 Micro?) 5:46 PM) [facility]2016-02-12 23:46:00 Test Item Value Reference Range Interpretation Comments UA RBC (test code = no gt See_Comment [Automa dewey message] The UA RBC) system which ge nerated this result transmit dewey reference range : <=2. The reference range was not used to interpr et this result as deyvi l/abnormal. [facility] AND [id number] 23:46:00 Test Item Value Reference Range Interpretation Comments UA Bacteria (test code = UA Occasional /HPF Bacteria) [facility] AND [id number] 23:46:00 Test Item Value Reference Range Interpretation Comments UA Bili (test code = Negative *NA*(10/26/15 UA Bili) 5:46 PM) [facility] AND [id number] 23:46:00 Test Item Value Reference Range Interpretation Comments UA Protein (test code = UA Negative mg/dL Protein) [facility] AND [id number] 23:46:00 Test Item Value Reference Range Interpretation Comments UA Glucose (test code = UA Negative mg/dL Glucose) [facility] AND [id number] 23:46:00 Test Item Value Reference Range Interpretation Comments UA Ketones (test code = UA Negative mg/dL Ketones) [facility] AND [id number] 23:46:00 Test Item Value Reference Range Interpretation Comments UA WBC (test code = 1 See_Comment [Automa dewey message] The UA WBC) system which ge nerated this result transmit dewey reference range : <=5. The reference range was not used to interpr et this result as deyvi l/abnormal. [facility] AND [id number] 23:46:00 Test Item Value Reference Range Interpretation Comments UA Sq Epi (test code = UA Sq Occasional /LPF Epi) [facility] AND [id number] 23:46:00 Test Item Value Reference Range Interpretation Comments UA Leuk Est (test code Trace *ABN*(10/26/15 = UA Leuk Est) 5:46 PM) [facility] AND [id number] 23:46:00 Test Item Value Reference Range Interpretation Comments UA Nitrite (test code Negative (10/26/15 5:46 = UA Nitrite) PM) [facility] AND [id number] 23:46:00 Test Item Value Reference Range Interpretation Comments UA Blood (test code = Negative (10/26/15 5:46 UA Blood) PM) [facility] AND [id number] 23:46:00 Test Item Value Reference Range Interpretation Comments UA Turbidity (test code = Clear (10/26/15 5:46 UA Turbidity) PM) [facility] AND [id number] 23:46:00 Test Item Value Reference Range Interpretation Comments UA Spec Grav (test code = UA Spec Grav) 1.006 [facility] AND [id number] 23:46:00 Test Item Value Reference Range Interpretation Comments UA pH (test code = UA pH) 6.0 5.0-8.0 [facility] AND [id number] 23:46:00 Test Item Value Reference Range Interpretation Comments UA Color (test code = Light Yellow UA Color) *NA*(10/26/15 5:46 PM) [facility] AND [id number] 23:46:00 Test Item Value Reference Range Interpretation Comments UA Urobilinogen (test code = UA no gt 0.1-1.0 Urobilinogen) [facility] AND [id number] 23:46:00 Test Item Value Reference Range Interpretation Comments Micro? (test code = Performed *NA*(10/26/15 Micro?) 5:46 PM) [facility] AND [id number] 23:46:00 Test Item Value Reference Range Interpretation Comments UA RBC (test code = no gt See_Comment [Automa dewey message] The UA RBC) system which ge nerated this result transmit dewey reference range : <=2. The reference range was not used to interpr et this result as deyvi l/abnormal. [facility] AND [id number] 23:46:00 Test Item Value Reference Range Interpretation Comments UA Bacteria (test code = UA Occasional /HPF Bacteria) [facility] AND [id number] 23:46:00 Test Item Value Reference Range Interpretation Comments UA Bili (test code = Negative *NA*(10/26/15 UA Bili) 5:46 PM) [facility] AND [id number] 23:46:00 Test Item Value Reference Range Interpretation Comments UA Protein (test code = UA Negative mg/dL Protein) [facility] AND [id number] 23:46:00 Test Item Value Reference Range Interpretation Comments UA Glucose (test code = UA Negative mg/dL Glucose) [facility] AND [id number] 23:46:00 Test Item Value Reference Range Interpretation Comments UA Ketones (test code = UA Negative mg/dL Ketones) [facility] AND [id number] 23:46:00 Test Item Value Reference Range Interpretation Comments UA WBC (test code = 1 See_Comment [Automa dewey message] The UA WBC) system which ge nerated this result transmit dewey reference range : <=5. The reference range was not used to interpr et this result as deyvi l/abnormal. [facility] AND [id number] 23:46:00 Test Item Value Reference Range Interpretation Comments UA Sq Epi (test code = UA Sq Occasional /LPF Epi) [facility] AND [id number] 23:46:00 Test Item Value Reference Range Interpretation Comments UA Leuk Est (test code Trace *ABN*(10/26/15 = UA Leuk Est) 5:46 PM) [facility] AND [id number] 23:46:00 Test Item Value Reference Range Interpretation Comments UA Nitrite (test code Negative (10/26/15 5:46 = UA Nitrite) PM) [facility] AND [id number] 23:46:00 Test Item Value Reference Range Interpretation Comments UA Blood (test code = Negative (10/26/15 5:46 UA Blood) PM) [facility] AND [id number] 23:46:00 Test Item Value Reference Range Interpretation Comments UA Turbidity (test code = Clear (10/26/15 5:46 UA Turbidity) PM) [facility] AND [id number] 23:46:00 Test Item Value Reference Range Interpretation Comments UA Spec Grav (test code = UA Spec Grav) 1.006 [facility] AND [id number] 23:46:00 Test Item Value Reference Range Interpretation Comments UA pH (test code = UA pH) 6.0 5.0-8.0 [facility] AND [id number] 23:46:00 Test Item Value Reference Range Interpretation Comments UA Color (test code = Light Yellow UA Color) *NA*(10/26/15 5:46 PM) [email or web address] [id number] 10:09:00 Test Item Value Reference Range Interpretation Comments ABO/Rh (test code = ABO/Rh) O POS [facility] [id number] 10:09:00 Test Item Value Reference Range Interpretation Comments Antibody Scrn (test Negative (10/26/15 4:09 code = Antibody Scrn) AM) [facility]2016-02-12 10:09:00 Test Item Value Reference Range Interpretation Comments eGFR (test code = eGFR) 99 [facility]2016-02-12 10:09:00 Test Item Value Reference Range Interpretation Comments Calcium Lvl (test code = Calcium Lvl) 7.4 8.5-10.5 [facility]2016-02-12 10:09:00 Test Item Value Reference Range Interpretation Comments CO2 (test code = CO2) 30 24-32 [facility]2016-02-12 10:09:00 Test Item Value Reference Range Interpretation Comments Chloride Lvl (test code = Chloride Lvl) 103 95-109 [facility]2016-02-12 10:09:00 Test Item Value Reference Range Interpretation Comments Sodium Lvl (test code = Sodium Lvl) 141 135-145 [facility]2016-02-12 10:09:00 Test Item Value Reference Range Interpretation Comments Potassium Lvl (test code = Potassium 3.6 3.5-5.1 Lvl) [facility]2016-02-12 10:09:00 Test Item Value Reference Range Interpretation Comments BUN (test code = BUN) 13 7-22 [facility]2016-02-12 10:09:00 Test Item Value Reference Range Interpretation Comments Creatinine Lvl (test code = Creatinine 0.40 0.50-1.40 Lvl) [facility]2016-02-12 10:09:00 Test Item Value Reference Range Interpretation Comments Glucose Lvl (test code = Glucose Lvl) 124 70-99 [facility]2016-02-12 10:09:00 Test Item Value Reference Range Interpretation Comments AGAP (test code = AGAP) 11.6 10.0-20.0 [facility]2016-02-12 10:09:00 Test Item Value Reference Range Interpretation Comments Phosphorus (test code = Phosphorus) 2.4 2.5-4.5 [facility]2016-02-12 10:09:00 Test Item Value Reference Range Interpretation Comments Magnesium Lvl (test code = Magnesium 1.9 1.8-2.4 Lvl) [facility] Region[id number] 10:09:00 Test Item Value Reference Range Interpretation Comments Basophils (test code = 0.4 See_Comment [Aut omated message] The Basophils) system which ge nerated this result tra nsmitted reference range : <=1.0. The reference r kemar was not used to int erpret this result as normal/abnormal . [facility] [id number] 10:09:00 Test Item Value Reference Range Interpretation Comments Segs-Bands # (test code = Segs-Bands #) 9.0 1.5-8.1 [facility] RegionalXjhkjurCSJUMUVLAT1636-17-16 10:09:00 Test Item Value Reference Range Interpretation Comments Monocytes (test code = Monocytes) 7.1 2.0-12.0 [facility] Reg[id number] 10:09:00 Test Item Value Reference Range Interpretation Comments Lymphocytes (test code = Lymphocytes) 9.6 20.0-40.0 [facility] RegionalXcvqnfqYMNFDDQAHT5801-60-22 10:09:00 Test Item Value Reference Range Interpretation Comments Lymphocytes # (test code = Lymphocytes 1.1 1.0-5.5 #) [facility] RegionalVmvjaohJDZLUEWVLB8920-05-70 10:09:00 Test Item Value Reference Range Interpretation Comments Eosinophils (test code = 3.4 See_Comment [A utomated message] The Eosinophils) system which ge nerated this result tra nsmitted reference range : <=4.0. The reference r kemar was not used to int erpret this result as normal/abnormal . [facility] RegionalAemqzijVZWBGWRECG5460-20-15 10:09:00 Test Item Value Reference Range Interpretation Comments Eosinophils # (test code 0.4 See_Comment [A utomated message] The = Eosinophils #) system whic h generated this result tra nsmitted reference range : <=0.5. The reference r kemar was not used to int erpret this result as normal/abnormal . [facility] RegionalYqwiqjyIUVNWXMJQS8692-12-82 10:09:00 Test Item Value Reference Range Interpretation Comments Basophils # (test code 0.0 See_Comment [Aut omated message] The = Basophils #) system which generated this result tra nsmitted reference range : <=0.2. The reference r kemar was not used to int erpret this result as normal/abnormal . [facility] RegionalJwpmzeiCZNGVAYSTM0536-45-91 10:09:00 Test Item Value Reference Range Interpretation Comments Monocytes # (test code 0.8 See_Comment [Aut omated message] The = Monocytes #) system which generated this result tra nsmitted reference range : <=0.8. The reference r kemar was not used to int erpret this result as normal/abnormal . [facility] RegionalHrwoxupKRXXLMZPFF1756-41-27 10:09:00 Test Item Value Reference Range Interpretation Comments Segs (test code = Segs) 79.5 45.0-75.0 [facility] RegionalDvlpzplFWWWBUQEOO6912-69-09 10:09:00 Test Item Value Reference Range Interpretation Comments MCH (test code = MCH) 29.9 pg 27.0-31.0 [facility] RegionalKoadwzjRAYWDGQOKM2012-82-02 10:09:00 Test Item Value Reference Range Interpretation Comments RBC (test code = RBC) 2.93 4.20-5.40 [facility] RegionalQcstcabFJFBHELAKE0913-41-70 10:09:00 Test Item Value Reference Range Interpretation Comments MPV (test code = MPV) 7.4 7.4-10.4 [facility] RegionalZhcnlluWWKZLTKVYK8686-47-29 10:09:00 Test Item Value Reference Range Interpretation Comments RDW (test code = RDW) 17.7 11.5-14.5 [facility] RegionalNemaraqZUOJDJLNJE6956-35-88 10:09:00 Test Item Value Reference Range Interpretation Comments MCHC (test code = MCHC) 32.8 32.0-36.0 [facility] RegionalHmghsqsEFWLUZEHGD5441-16-13 10:09:00 Test Item Value Reference Range Interpretation Comments Platelet (test code = Platelet) 182 133-450 [facility] RegionalUnkxuanACPWCLROUD6901-98-16 10:09:00 Test Item Value Reference Range Interpretation Comments MCV (test code = MCV) 91.2 80.0-98.0 [facility] RegionalOnxblcrOXZBVOHJIS8819-05-25 10:09:00 Test Item Value Reference Range Interpretation Comments WBC (test code = WBC) 11.3 3.7-10.4 [facility]PARATHYROID [id number] 10:09:00 Test Item Value Reference Range Interpretation Comments Ca Ion WB (test code = Ca Ion WB) 1.08 1.05-1.25 [facility] CampusPARATHYROID [id number] 10:09:00 Test Item Value Reference Range Interpretation Comments Ca Norm WB (test code = Ca Norm WB) 1.09 1.05-1.25 [facility] CampusZ[facility] [id number] 10:09:00 Test Item Value Reference Range Interpretation Comments ABO/Rh (test code = ABO/Rh) O POS [facility] [email or web address] [id number] 10:09:00 Test Item Value Reference Range Interpretation Comments Antibody Scrn (test Negative (10/26/15 4:09 code = Antibody Scrn) AM) [facility] HospitalOfferamaH[facility] [id number] 10:09:00 Test Item Value Reference Range Interpretation Comments eGFR (test code = eGFR) 99 [facility]Fair[facility] [id number] 10:09:00 Test Item Value Reference Range Interpretation Comments Calcium Lvl (test code = Calcium Lvl) 7.4 8.5-10.5 [facility] [id number] 10:09:00 Test Item Value Reference Range Interpretation Comments CO2 (test code = CO2) 30 24-32 [facility] [id number] 10:09:00 Test Item Value Reference Range Interpretation Comments Chloride Lvl (test code = Chloride Lvl) 103 95-109 [facility] [id number] 10:09:00 Test Item Value Reference Range Interpretation Comments Sodium Lvl (test code = Sodium Lvl) 141 135-145 [facility] [id number] 10:09:00 Test Item Value Reference Range Interpretation Comments Potassium Lvl (test code = Potassium 3.6 3.5-5.1 Lvl) [facility] [id number] 10:09:00 Test Item Value Reference Range Interpretation Comments BUN (test code = BUN) 13 7-22 [facility] [id number] 10:09:00 Test Item Value Reference Range Interpretation Comments Creatinine Lvl (test code = Creatinine 0.40 0.50-1.40 Lvl) [facility] [id number] 10:09:00 Test Item Value Reference Range Interpretation Comments Glucose Lvl (test code = Glucose Lvl) 124 70-99 [facility] CampusSkyJam [id number] 10:09:00 Test Item Value Reference Range Interpretation Comments AGAP (test code = AGAP) 11.6 10.0-20.0 [facility] [id number] 10:09:00 Test Item Value Reference Range Interpretation Comments Phosphorus (test code = Phosphorus) 2.4 2.5-4.5 [facility] [id number] 10:09:00 Test Item Value Reference Range Interpretation Comments Magnesium Lvl (test code = Magnesium 1.9 1.8-2.4 Lvl) [facility] RegionalMcqdvwtJEJQCRIPYW8781-44-58 10:09:00 Test Item Value Reference Range Interpretation Comments Basophils (test code = 0.4 See_Comment [Aut omated message] The Basophils) system which ge nerated this result tra nsmitted reference range : <=1.0. The reference r kemar was not used to int erpret this result as normal/abnormal . [facility] RegionalTkjnrdkTVENQKPHXV1572-97-16 10:09:00 Test Item Value Reference Range Interpretation Comments Segs-Bands # (test code = Segs-Bands #) 9.0 1.5-8.1 [facility] RegionalBylfswfETPYKYVBSS5518-14-81 10:09:00 Test Item Value Reference Range Interpretation Comments Monocytes (test code = Monocytes) 7.1 2.0-12.0 [facility] RegionalLlgytloWGKNUIUXEQ5099-97-35 10:09:00 Test Item Value Reference Range Interpretation Comments Lymphocytes (test code = Lymphocytes) 9.6 20.0-40.0 [facility] RegionalMwxcxmkTBMQLKBSNB2875-49-02 10:09:00 Test Item Value Reference Range Interpretation Comments Lymphocytes # (test code = Lymphocytes 1.1 1.0-5.5 #) [facility] RegionalWhgyehiWLSNILKHXF7281-95-18 10:09:00 Test Item Value Reference Range Interpretation Comments Eosinophils (test code = 3.4 See_Comment [A utomated message] The Eosinophils) system which ge nerated this result tra nsmitted reference range : <=4.0. The reference r kemar was not used to int erpret this result as normal/abnormal . [facility] RegionalIencfmeEXKVGRHVMJ4328-90-11 10:09:00 Test Item Value Reference Range Interpretation Comments Eosinophils # (test code 0.4 See_Comment [A utomated message] The = Eosinophils #) system whic h generated this result tra nsmitted reference range : <=0.5. The reference r kemar was not used to int erpret this result as normal/abnormal . [facility] RegionalMvhlseyFTUCECYVHS3046-47-25 10:09:00 Test Item Value Reference Range Interpretation Comments Basophils # (test code 0.0 See_Comment [Aut omated message] The = Basophils #) system which generated this result tra nsmitted reference range : <=0.2. The reference r kemar was not used to int erpret this result as normal/abnormal . [facility] RegionalImcyrjqYLMCVQHBFC1620-01-71 10:09:00 Test Item Value Reference Range Interpretation Comments Monocytes # (test code 0.8 See_Comment [Aut omated message] The = Monocytes #) system which generated this result tra nsmitted reference range : <=0.8. The reference r kemar was not used to int erpret this result as normal/abnormal . [facility] RegionalKxnhjduOEIFDQMLNS5344-35-33 10:09:00 Test Item Value Reference Range Interpretation Comments Segs (test code = Segs) 79.5 45.0-75.0 [facility] RegionalTisnlprYSCPXLLIVW7192-64-35 10:09:00 Test Item Value Reference Range Interpretation Comments MCH (test code = MCH) 29.9 pg 27.0-31.0 [facility] RegionalJmdcbwnIIWFJDSSXK5497-16-96 10:09:00 Test Item Value Reference Range Interpretation Comments RBC (test code = RBC) 2.93 4.20-5.40 [facility] RegionalCpjkqblAOEYQKEZLP3276-16-07 10:09:00 Test Item Value Reference Range Interpretation Comments MPV (test code = MPV) 7.4 7.4-10.4 [facility] RegionalEfdtyriIMDNKXESLM7398-64-40 10:09:00 Test Item Value Reference Range Interpretation Comments RDW (test code = RDW) 17.7 11.5-14.5 [facility] RegionalRhtatreSCOLNUZPQQ8697-95-38 10:09:00 Test Item Value Reference Range Interpretation Comments MCHC (test code = MCHC) 32.8 32.0-36.0 [facility] RegionalVdekikyVLCNUGJDCA4146-35-21 10:09:00 Test Item Value Reference Range Interpretation Comments Platelet (test code = Platelet) 182 133-450 [facility] RegionalQcynbieYLNOGSXUDY5874-80-43 10:09:00 Test Item Value Reference Range Interpretation Comments MCV (test code = MCV) 91.2 80.0-98.0 [facility]XowfsmwPQAIIIWNPG4788-[facility] 10:09:00 Test Item Value Reference Range Interpretation Comments WBC (test code = WBC) 11.3 3.7-10.4 [facility]RO[facility] [id number] 10:09:00 Test Item Value Reference Range Interpretation Comments Ca Ion WB (test code = Ca Ion WB) 1.08 1.05-1.25 [facility] HospitalRO[facility] [id number] 10:09:00 Test Item Value Reference Range Interpretation Comments Ca Norm WB (test code = Ca Norm WB) 1.09 1.05-1.25 [facility] [id number] 22:16:00 Test Item Value Reference Range Interpretation Comments RBC product (test code Product available = RBC product) (10/25/15 4:16 PM) [facility] [id number] 22:16:00 Test Item Value Reference Range Interpretation Comments RBC product (test code Product available = RBC product) (10/25/15 4:16 PM) [facility]JbnvthuOHYIJKGZAX9350-13-96 16:21:00 Test Item Value Reference Range Interpretation Comments Polychrom (test code = Moderate *ABN*(10/25/15 Polychrom) 10:21 AM) [facility] RegionalWtnhiqcNLPCJDSZKU4267-59-61 16:21:00 Test Item Value Reference Range Interpretation Comments Plt Morph (test code = Normal (10/25/15 10:21 Plt Morph) AM) [facility] RegionalSkhkaduTPNJTXVBNY7417-45-17 16:21:00 Test Item Value Reference Range Interpretation Comments Baso Stipplin (test Moderate *ABN*(10/25/15 code = Baso Stipplin) 10:21 AM) [facility] RegionalElfyvquSTFGQSQWHJ6315-69-88 16:21:00 Test Item Value Reference Range Interpretation Comments PTT (test code = PTT) 33.0 s 22.9-35.8 [facility] RegionalFeaiofaYUKTDGXTIZ1659-80-63 16:21:00 Test Item Value Reference Range Interpretation Comments INR (test code = INR) 1.18 0.85-1.17 [facility] RegionalDarxoxmJVVHCLWXQC5494-30-66 16:21:00 Test Item Value Reference Range Interpretation Comments PT (test code = PT) 15.3 s 12.0-14.7 [facility] RegionalNwxecboCRYNRYXSFB7811-53-83 16:21:00 Test Item Value Reference Range Interpretation Comments Polychrom (test code = Moderate *ABN*(10/25/15 Polychrom) 10:21 AM) [facility] RegionalThipdxyZIMAGPSDVA4932-30-89 16:21:00 Test Item Value Reference Range Interpretation Comments Plt Morph (test code = Normal (10/25/15 10:21 Plt Morph) AM) [facility] RegionalSectinlKNMPLPKXKJ4442-29-10 16:21:00 Test Item Value Reference Range Interpretation Comments Baso Stipplin (test Moderate *ABN*(10/25/15 code = Baso Stipplin) 10:21 AM) [facility] [id number] 16:21:00 Test Item Value Reference Range Interpretation Comments PTT (test code = PTT) 33.0 s 22.9-35.8 [facility] RegionalEjrdmfdNOVINAKDPT1408-37-22 16:21:00 Test Item Value Reference Range Interpretation Comments INR (test code = INR) 1.18 0.85-1.17 [facility] Region[id number] 16:21:00 Test Item Value Reference Range Interpretation Comments PT (test code = PT) 15.3 s 12.0-14.7 [facility] [id number] 08:39:00 Test Item Value Reference Range Interpretation Comments RBC product (test code Product available = RBC product) (10/25/15 2:39 AM) [facility] [id number] 08:39:00 Test Item Value Reference Range Interpretation Comments RBC product (test code Product available = RBC product) (10/25/15 2:39 AM) [facility] [id number] 07:39:00 Test Item Value Reference Range Interpretation Comments Magnesium Lvl (test code = Magnesium 1.7 1.8-2.4 Lvl) [facility] [id number] 07:39:00 Test Item Value Reference Range Interpretation Comments eGFR (test code = eGFR) 99 [facility] [id number] 07:39:00 Test Item Value Reference Range Interpretation Comments Calcium Lvl (test code = Calcium Lvl) 7.4 8.5-10.5 [facility] [id number] 07:39:00 Test Item Value Reference Range Interpretation Comments AGAP (test code = AGAP) 12.4 10.0-20.0 [facility]2016-02-11 07:39:00 Test Item Value Reference Range Interpretation Comments Glucose Lvl (test code = Glucose Lvl) 137 70-99 [facility]2016-02-11 07:39:00 Test Item Value Reference Range Interpretation Comments BUN (test code = BUN) 16 7-22 [facility]2016-02-11 07:39:00 Test Item Value Reference Range Interpretation Comments Creatinine Lvl (test code = Creatinine 0.40 0.50-1.40 Lvl) [facility]2016-02-11 07:39:00 Test Item Value Reference Range Interpretation Comments Sodium Lvl (test code = Sodium Lvl) 141 135-145 [facility]2016-02-11 07:39:00 Test Item Value Reference Range Interpretation Comments Potassium Lvl (test code = Potassium 3.4 3.5-5.1 Lvl) [facility]2016-02-11 07:39:00 Test Item Value Reference Range Interpretation Comments Chloride Lvl (test code = Chloride Lvl) 105 95-109 [facility]2016-02-11 07:39:00 Test Item Value Reference Range Interpretation Comments CO2 (test code = CO2) 27 24-32 [facility]2016-02-11 07:39:00 Test Item Value Reference Range Interpretation Comments Phosphorus (test code = Phosphorus) 3.1 2.5-4.5 [facility] [id number] 07:39:00 Test Item Value Reference Range Interpretation Comments Baso Stipplin (test Moderate *ABN*(10/25/15 code = Baso Stipplin) 1:39 AM) [id number] 07:39:00 Test Item Value Reference Range Interpretation Comments Polychrom (test code = Moderate *ABN*(10/25/15 Polychrom) 1:39 AM) [facility] R[id number] 07:39:00 Test Item Value Reference Range Interpretation Comments Plt Morph (test code = Normal (10/25/15 1:39 Plt Morph) AM) [facility] CampusPARATHYROID [id number] 07:39:00 Test Item Value Reference Range Interpretation Comments Ca Norm WB (test code = Ca Norm WB) 1.08 1.05-1.25 [facility] CampusPARATHYROID [id number] 07:39:00 Test Item Value Reference Range Interpretation Comments Ca Ion WB (test code = Ca Ion WB) 1.05 1.05-1.25 [facility] CampusCHEM [id number] 07:39:00 Test Item Value Reference Range Interpretation Comments Magnesium Lvl (test code = Magnesium 1.7 1.8-2.4 Lvl) [facility]2016-02-11 07:39:00 Test Item Value Reference Range Interpretation Comments eGFR (test code = eGFR) 99 [facility]2016-02-11 07:39:00 Test Item Value Reference Range Interpretation Comments Calcium Lvl (test code = Calcium Lvl) 7.4 8.5-10.5 [facility]2016-02-11 07:39:00 Test Item Value Reference Range Interpretation Comments AGAP (test code = AGAP) 12.4 10.0-20.0 [facility]2016-02-11 07:39:00 Test Item Value Reference Range Interpretation Comments Glucose Lvl (test code = Glucose Lvl) 137 70-99 [facility]2016-02-11 07:39:00 Test Item Value Reference Range Interpretation Comments BUN (test code = BUN) 16 7-22 [facility]2016-02-11 07:39:00 Test Item Value Reference Range Interpretation Comments Creatinine Lvl (test code = Creatinine 0.40 0.50-1.40 Lvl) [facility]2016-02-11 07:39:00 Test Item Value Reference Range Interpretation Comments Sodium Lvl (test code = Sodium Lvl) 141 135-145 [facility]2016-02-11 07:39:00 Test Item Value Reference Range Interpretation Comments Potassium Lvl (test code = Potassium 3.4 3.5-5.1 Lvl) [facility]2016-02-11 07:39:00 Test Item Value Reference Range Interpretation Comments Chloride Lvl (test code = Chloride Lvl) 105 95-109 [facility]2016-02-11 07:39:00 Test Item Value Reference Range Interpretation Comments CO2 (test code = CO2) 27 24-32 [place] [id number] 07:39:00 Test Item Value Reference Range Interpretation Comments Phosphorus (test code = Phosphorus) 3.1 2.5-4.5 [facility] [id number] 07:39:00 Test Item Value Reference Range Interpretation Comments Baso Stipplin (test Moderate *ABN*(10/25/15 code = Baso Stipplin) 1:39 AM) [facility] Region[id number] 07:39:00 Test Item Value Reference Range Interpretation Comments Polychrom (test code = Moderate *ABN*(10/25/15 Polychrom) 1:39 AM) [facility] [id number] 07:39:00 Test Item Value Reference Range Interpretation Comments Plt Morph (test code = Normal (10/25/15 1:39 Plt Morph) AM) [facility]2016-02-11 07:39:00 Test Item Value Reference Range Interpretation Comments Ca Norm WB (test code = Ca Norm WB) 1.08 1.05-1.25 [facility]2016-02-11 07:39:00 Test Item Value Reference Range Interpretation Comments Ca Ion WB (test code = Ca Ion WB) 1.05 1.05-1.25 [facility]2016-02-10 14:17:00 Test Item Value Reference Range Interpretation Comments Lactic Acid Lvl (test code = Lactic 1.0 0.5-2.2 Acid Lvl) [facility]2016-02-10 14:17:00 Test Item Value Reference Range Interpretation Comments Lactic Acid Lvl (test code = Lactic 1.0 0.5-2.2 Acid Lvl) [facility]2016-02-10 10:16:00 Test Item Value Reference Range Interpretation Comments Phosphorus (test code = Phosphorus) 3.7 2.5-4.5 [facility]2016-02-10 10:16:00 Test Item Value Reference Range Interpretation Comments Magnesium Lvl (test code = Magnesium 1.7 1.8-2.4 Lvl) [facility] [id number] 10:16:00 Test Item Value Reference Range Interpretation Comments INR (test code = INR) 1.18 0.85-1.17 [facility] RegionalAtbrfopTFJYFNTTUD9039-19-05 10:16:00 Test Item Value Reference Range Interpretation Comments PT (test code = PT) 15.3 s 12.0-14.7 [facility] R[id number] 10:16:00 Test Item Value Reference Range Interpretation Comments PTT (test code = PTT) 27.8 s 22.9-35.8 [facility]2016-02-10 10:16:00 Test Item Value Reference Range Interpretation Comments Ca Norm WB (test code = Ca Norm WB) 1.08 1.05-1.25 [facility]2016-02-10 10:16:00 Test Item Value Reference Range Interpretation Comments Ca Ion WB (test code = Ca Ion WB) 1.08 1.05-1.25 [facility]2016-02-10 10:16:00 Test Item Value Reference Range Interpretation Comments Phosphorus (test code = Phosphorus) 3.7 2.5-4.5 [facility]2016-02-10 10:16:00 Test Item Value Reference Range Interpretation Comments Magnesium Lvl (test code = Magnesium 1.7 1.8-2.4 Lvl) [facility] [id number] 10:16:00 Test Item Value Reference Range Interpretation Comments INR (test code = INR) 1.18 0.85-1.17 [facility] [id number] 10:16:00 Test Item Value Reference Range Interpretation Comments PT (test code = PT) 15.3 s 12.0-14.7 [facility] Reg[id number] 10:16:00 Test Item Value Reference Range Interpretation Comments PTT (test code = PTT) 27.8 s 22.9-35.8 [facility]2016-02-10 10:16:00 Test Item Value Reference Range Interpretation Comments Ca Norm WB (test code = Ca Norm WB) 1.08 1.05-1.25 [facility]2016-02-10 10:16:00 Test Item Value Reference Range Interpretation Comments Ca Ion WB (test code = Ca Ion WB) 1.08 1.05-1.25 [facility] [id number] 04:44:00 Test Item Value Reference Range Interpretation Comments RBC product (test code Product available = RBC product) (10/22/15 10:44 PM) [facility] [id number] 04:44:00 Test Item Value Reference Range Interpretation Comments RBC product (test code Product available = RBC product) (10/22/15 10:44 PM) [facility] [id number] 03:04:00 Test Item Value Reference Range Interpretation Comments Antibody Scrn (test Negative (10/22/15 9:04 code = Antibody Scrn) PM) [facility] [id number] 03:04:00 Test Item Value Reference Range Interpretation Comments ABO/Rh (test code = ABO/Rh) O POS [facility] [id number] 03:04:00 Test Item Value Reference Range Interpretation Comments Antibody Scrn (test Negative (10/22/15 9:04 code = Antibody Scrn) PM) [facility] [id number] 03:04:00 Test Item Value Reference Range Interpretation Comments ABO/Rh (test code = ABO/Rh) O POS [facility] [id number] 20:58:00 Test Item Value Reference Range Interpretation Comments UA Urobilinogen (test code = UA no gt 0.1-1.0 Urobilinogen) [facility] [id number] 20:58:00 Test Item Value Reference Range Interpretation Comments UA WBC (test code = 1 See_Comment [Automa dewey message] The UA WBC) system which ge nerated this result transmit dewey reference range : <=5. The reference range was not used to interpr et this result as deyvi l/abnormal. [facility] [id number] 20:58:00 Test Item Value Reference Range Interpretation Comments UA Leuk Est (test Negative (10/22/15 2:58 code = UA Leuk Est) PM) [facility] [id number] 20:58:00 Test Item Value Reference Range Interpretation Comments UA Blood (test code = Negative (10/22/15 2:58 UA Blood) PM) [facility] [id number] 20:58:00 Test Item Value Reference Range Interpretation Comments UA Bili (test code = Negative *NA*(10/22/15 UA Bili) 2:58 PM) [facility] [id number] 20:58:00 Test Item Value Reference Range Interpretation Comments UA Sq Epi (test code = UA Sq Epi) None Seen [facility] AND [id number] 20:58:00 Test Item Value Reference Range Interpretation Comments UA Color (test code = Light Yellow UA Color) *NA*(10/22/15 2:58 PM) [facility] AND [id number] 20:58:00 Test Item Value Reference Range Interpretation Comments UA Spec Grav (test code = UA Spec Grav) 1.009 [facility] AND [id number] 20:58:00 Test Item Value Reference Range Interpretation Comments UA Turbidity (test code = Clear (10/22/15 2:58 UA Turbidity) PM) [facility] AND [id number] 20:58:00 Test Item Value Reference Range Interpretation Comments UA pH (test code = UA pH) 7.0 5.0-8.0 [facility] AND [id number] 20:58:00 Test Item Value Reference Range Interpretation Comments UA Glucose (test code = UA Glucose) 50 mg/dL [facility] AND [id number] 20:58:00 Test Item Value Reference Range Interpretation Comments UA Protein (test code = UA Negative mg/dL Protein) [facility] AND [id number] 20:58:00 Test Item Value Reference Range Interpretation Comments UA Ketones (test code = UA Negative mg/dL Ketones) [facility] AND [id number] 20:58:00 Test Item Value Reference Range Interpretation Comments UA Nitrite (test code Negative (10/22/15 2:58 = UA Nitrite) PM) [facility] AND [id number] 20:58:00 Test Item Value Reference Range Interpretation Comments UA Urobilinogen (test code = UA no gt 0.1-1.0 Urobilinogen) [facility] AND [id number] 20:58:00 Test Item Value Reference Range Interpretation Comments UA WBC (test code = 1 See_Comment [Automa dewey message] The UA WBC) system which ge nerated this result transmit dewey reference range : <=5. The reference range was not used to interpr et this result as deyvi l/abnormal. [facility] AND [id number] 20:58:00 Test Item Value Reference Range Interpretation Comments UA Leuk Est (test Negative (10/22/15 2:58 code = UA Leuk Est) PM) [facility] AND [id number] 20:58:00 Test Item Value Reference Range Interpretation Comments UA Blood (test code = Negative (10/22/15 2:58 UA Blood) PM) [facility] AND [id number] 20:58:00 Test Item Value Reference Range Interpretation Comments UA Bili (test code = Negative *NA*(10/22/15 UA Bili) 2:58 PM) [facility] AND [id number] 20:58:00 Test Item Value Reference Range Interpretation Comments UA Sq Epi (test code = UA Sq Epi) None Seen [facility] AND [id number] 20:58:00 Test Item Value Reference Range Interpretation Comments UA Color (test code = Light Yellow UA Color) *NA*(10/22/15 2:58 PM) [facility] AND [id number] 20:58:00 Test Item Value Reference Range Interpretation Comments UA Spec Grav (test code = UA Spec Grav) 1.009 [facility] AND [id number] 20:58:00 Test Item Value Reference Range Interpretation Comments UA Turbidity (test code = Clear (10/22/15 2:58 UA Turbidity) PM) [facility] AND [id number] 20:58:00 Test Item Value Reference Range Interpretation Comments UA pH (test code = UA pH) 7.0 5.0-8.0 [facility] AND [id number] 20:58:00 Test Item Value Reference Range Interpretation Comments UA Glucose (test code = UA Glucose) 50 mg/dL [facility] AND [id number] 20:58:00 Test Item Value Reference Range Interpretation Comments UA Protein (test code = UA Negative mg/dL Protein) [facility] AND [id number] 20:58:00 Test Item Value Reference Range Interpretation Comments UA Ketones (test code = UA Negative mg/dL Ketones) [facility] AND [id number] 20:58:00 Test Item Value Reference Range Interpretation Comments UA Nitrite (test code Negative (10/22/15 2:58 = UA Nitrite) PM) [facility] CampusBACT[facility] - [id number] 19:20:00 Test Item Value Reference Range Interpretation Comments MRSA by PCR (test Negative (10/22/15 1:20 code = MRSA by PCR) PM) [facility]2016-02-08 19:20:00 Test Item Value Reference Range Interpretation Comments Ammonia (test code = Ammonia) 32.0 [facility]2016-02-08 19:20:00 Test Item Value Reference Range Interpretation Comments Lipase Lvl (test code = Lipase Lvl) 160 73-393 [facility]2016-02-08 19:20:00 Test Item Value Reference Range Interpretation Comments Lactic Acid Lvl (test code = Lactic 0.9 0.5-2.2 Acid Lvl) [facility]2016-02-08 19:20:00 Test Item Value Reference Range Interpretation Comments Globulin (test code = Globulin) 2.2 2.0-4.0 [facility]2016-02-08 19:20:00 Test Item Value Reference Range Interpretation Comments A/G Ratio (test code = A/G Ratio) 1.0 0.7-1.6 [facility]2016-02-08 19:20:00 Test Item Value Reference Range Interpretation Comments ALANINE AMINOTRANSFERASE 16 See_Comment [A utomated message] (test code = ALANINE The sys tem which AMINOTRANSFERASE) generated this result transmitted ref erence range: <=65. Th e reference range was not used to int erpret this result as normal/abnormal . [facility]2016-02-08 19:20:00 Test Item Value Reference Range Interpretation Comments Bili Total (test code = Bili Total) 0.4 0.2-1.3 [facility]2016-02-08 19:20:00 Test Item Value Reference Range Interpretation Comments Alk Phos (test code = Alk Phos) 42 39-136 [facility]2016-02-08 19:20:00 Test Item Value Reference Range Interpretation Comments Bili Direct (test code 0.1 See_Comment [Aut omated message] The = Bili Direct) system which generated this result tra nsmitted reference range : <=0.3. The reference r kemar was not used to int erpret this result as deyvi l/abnormal. [facility] [id number] 19:20:00 Test Item Value Reference Range Interpretation Comments Total Protein (test code = Total 4.3 6.4-8.4 Protein) [facility]2016-02-08 19:20:00 Test Item Value Reference Range Interpretation Comments Albumin Lvl (test code = Albumin Lvl) 2.1 3.5-5.0 [facility]Sky[facility] [id number] 19:20:00 Test Item Value Reference Range Interpretation Comments ASPARTATE TRANSAMINASE 19 See_Comment [Aut omated message] (test code = ASPARTATE The s ystem which TRANSAMINASE) generated this result transmitted ref erence range: <=37. Th e reference range was not used to interpr et this result as normal/abnormal . [facility] [id number] 19:20:00 Test Item Value Reference Range Interpretation Comments Bili Indirect (test 0.3 See_Comment [Automa dewey message] The code = Bili Indirect) system which generated this result tra nsmitted reference range : <=1.0. The reference r kemar was not used to int erpret this result as normal/abnormal . [facility] [id number] 19:20:00 Test Item Value Reference Range Interpretation Comments Cortisol (test code = Cortisol) 3.4 [facility] [id number] 19:20:00 Test Item Value Reference Range Interpretation Comments Hgb A1C (test code = Hgb A1C) <3.5 % [facility] CampusBACT[facility] - [id number] 19:20:00 Test Item Value Reference Range Interpretation Comments MRSA by PCR (test Negative (10/22/15 1:20 code = MRSA by PCR) PM) [facility] [id number] 19:20:00 Test Item Value Reference Range Interpretation Comments Ammonia (test code = Ammonia) 32.0 [facility] [id number] 19:20:00 Test Item Value Reference Range Interpretation Comments Lipase Lvl (test code = Lipase Lvl) 160 73-393 [facility] [id number] 19:20:00 Test Item Value Reference Range Interpretation Comments Lactic Acid Lvl (test code = Lactic 0.9 0.5-2.2 Acid Lvl) [facility]2016-02-08 19:20:00 Test Item Value Reference Range Interpretation Comments Globulin (test code = Globulin) 2.2 2.0-4.0 [facility]2016-02-08 19:20:00 Test Item Value Reference Range Interpretation Comments A/G Ratio (test code = A/G Ratio) 1.0 0.7-1.6 [facility]2016-02-08 19:20:00 Test Item Value Reference Range Interpretation Comments ALANINE AMINOTRANSFERASE 16 See_Comment [A utomated message] (test code = ALANINE The sys tem which AMINOTRANSFERASE) generated this result transmitted ref erence range: <=65. Th e reference range was not used to int erpret this result as normal/abnormal . [facility]2016-02-08 19:20:00 Test Item Value Reference Range Interpretation Comments Bili Total (test code = Bili Total) 0.4 0.2-1.3 [facility]2016-02-08 19:20:00 Test Item Value Reference Range Interpretation Comments Alk Phos (test code = Alk Phos) 42 39-136 [facility]2016-02-08 19:20:00 Test Item Value Reference Range Interpretation Comments Bili Direct (test code 0.1 See_Comment [Aut omated message] The = Bili Direct) system which generated this result tra nsmitted reference range : <=0.3. The reference r kemar was not used to int erpret this result as deyvi l/abnormal. [facility]2016-02-08 19:20:00 Test Item Value Reference Range Interpretation Comments Total Protein (test code = Total 4.3 6.4-8.4 Protein) [facility]2016-02-08 19:20:00 Test Item Value Reference Range Interpretation Comments Albumin Lvl (test code = Albumin Lvl) 2.1 3.5-5.0 [facility]2016-02-08 19:20:00 Test Item Value Reference Range Interpretation Comments ASPARTATE TRANSAMINASE 19 See_Comment [Aut omated message] (test code = ASPARTATE The s ystem which TRANSAMINASE) generated this result transmitted ref erence range: <=37. Th e reference range was not used to interpr et this result as normal/abnormal . [place] [id number] 19:20:00 Test Item Value Reference Range Interpretation Comments Bili Indirect (test 0.3 See_Comment [Automa dewey message] The code = Bili Indirect) system which generated this result tra nsmitted reference range : <=1.0. The reference r kemar was not used to int erpret this result as normal/abnormal . [facility] [id number] 19:20:00 Test Item Value Reference Range Interpretation Comments Cortisol (test code = Cortisol) 3.4 [facility] [id number] 19:20:00 Test Item Value Reference Range Interpretation Comments Hgb A1C (test code = Hgb A1C) <3.5 % [facility]
[2023-01-21] MEDS ORDERED: NA CHLORIDE 0.9% 500 ML ONE ×2 (17:18→20:39)
[2023-01-21 17:23] LABS: Absolute Lymphocytes (CBC) 1.5 K/uL (0.7-4.9); Hematocrit 34.5 % (36.0-45.0); Lymphocytes % 17.1 % (15.3-44.8); MCV 97.4 fL (80-100); MPV 7.3 fL (7.6-11.3); RBC Red Blood Cell Count 3.54 M/uL (3.86-4.86)
--- NOTE | 2023-01-21 17:40 | RAD REPORT ---
EXAM DESCRIPTION: RAD - Chest Single View - 01/21/2023 5:19 pm CLINICAL HISTORY: hypotension Chest pain. COMPARISON: <Comparisons> FINDINGS: Portable technique limits examination quality. The lungs are emphysematous but grossly clear. The heart is normal in size. Left total shoulder arthr oplasty. IMPRESSION: No acute intrathoracic process suspected.
[2023-01-21 17:41] LABS: Albumin 3.8 g/dL (3.4-5.0); Bilirubin Total 0.5 mg/dL (0.2-1.0); Potassium 3.5 mEq/L (3.5-5.1); Protein, Total 7.2 g/dL (6.4-8.2); Troponin High Sensitivity 6.5 pg/mL (<58.9)
[2023-01-21 20:10] LABS: Specific Gravity > 1.030 (1.005-1.030); Transitional Epithelial <5 /HPF (None Seen); Urine Bacteria 20-50 /HPF (<20); Urine Bilirubin NEGATIVE (Negative); Urine Blood Trace (Negative); Urine Clarity Turbid (Clear); Urine Color Yellow (Yellow); Urine Glucose NEGATIVE (Negative); Urine Mucus Slight /HPF (None Seen); Urine Protein 1+ (Negative); Urine Urobilinogen Normal (Normal); Urine pH 5.5 (5.0-7.0)
--- NOTE | 2023-01-21 20:29 | EDPHYS ---
Physician Documentation [facility] Name: Rosina Odonnell Age: 87 yrs Sex: Female : 1935 Arrival Date: 01/21/2023 Time: 16:42 Bed 3 Private MD: Casey Kohler C ED Physician Yusef Echavarria HPI: 01/21 18:34 This 87 yrs old Female presents to ER via Ambulatory with complaints of Low BP. rt 18:34 Patient was sent to the ED from her primary care provider's office for hypotension to rt 84 systolic. She reports a generalized weakness, dry mouth, near syncope. She did not lose consciousness. Patient states that she has pain when she eats which is preventing her from eating or drinking well. She denies any current pain or other acute complaints. Symptoms are moderate severity, no other aggravating or alleviating factors.. Historical: - Allergies: 17:02 Augmentin; nj1 17:02 Sulfa (Sulfonamide Antibiotics); nj1 - PMHx: 17:02 Asthma; Hypertension; Multiple Sclerosis; Seizure; nj1 - PSHx: 17:02 EGD; GALLBLADDER; hysterectomy; sinus surgery; nj1 - Immunization history:: Client reports receiving the 2nd dose of the Covid vaccine. - Social history:: Smoking status: Patient denies any tobacco usage or history of. - Family history:: not pertinent. ROS: 18:34 Constitutional: Negative for fever, chills, and weight loss, Neck: Negative for injury, rt pain, and swelling, Cardiovascular: Negative for chest pain, palpitations, and edema, Respiratory: Negative for shortness of breath, cough, wheezing, and pleuritic chest pain, Abdomen/GI: Negative for abdominal pain, nausea, vomiting, diarrhea, and constipation, Skin: Negative for injury, rash, and discoloration, Psych: Negative for depression, anxiety, suicide ideation, homicidal ideation, and hallucinations. 18:34 Neuro: Positive for near syncope, weakness. Exam: 18:34 Constitutional: This is a well developed, well nourished patient who is awake, alert, rt and in no acute distress. Chest/axilla: Normal chest wall appearance and motion. Nontender with no deformity. No lesions are appreciated. Cardiovascular: Regular rate and rhythm with a normal S1 and S2. No gallops, murmurs, or rubs. Normal PMI, no JVD. No pulse deficits. Respiratory: Lungs have equal breath sounds bilaterally, clear to auscultation and percussion. No rales, rhonchi or wheezes noted. No increased work of breathing, no retractions or nasal flaring. Abdomen/GI: Soft, non-tender, with normal bowel sounds. No distension or tympany. No guarding or rebound. No evidence of tenderness throughout. Skin: Warm, dry with normal turgor. Normal color with no rashes, no lesions, and no evidence of cellulitis. MS/ Extremity: Pulses equal, no cyanosis. Neurovascular intact. Full, normal range of motion. Neuro: Awake and alert, GCS 15, oriented to person, place, time, and situation. Cranial nerves II-XII grossly intact. Motor strength 5/5 in all extremities. Sensory grossly intact. Cerebellar exam normal. Normal gait. Psych: Awake, alert, with orientation to person, place and time. Behavior, mood, and affect are within normal limits. 18:34 ENT: Dry mucous membranes. 18:34 ECG was reviewed by the Attending Physician. Vital Signs: 16:45 BP 106 / 63; Pulse 63; Resp 18; Temp 97.4(O); Pulse Ox 94% on R/A; Weight 43.09 kg; nj1 Height 5 ft. 6 in. ; 17:33 BP 127 / 92; Pulse 59; Resp 17 S; Pulse Ox 98% on R/A; kc6 18:29 BP 108 / 58; Pulse 74; Resp 16; Pulse Ox 95% on R/A; iw 19:30 BP 124 / 67; Pulse 78; Resp 18 S; Pulse Ox 96% on R/A; ha1 20:20 BP 149 / 87; Pulse 74; Resp 19 S; Pulse Ox 96% on R/A; ha1 21:30 BP 123 / 102; Pulse 70; Resp 18 S; Pulse Ox 98% on R/A; ha1 16:45 Body Mass Index 15.33 (43.09 kg, 167.64 cm) nj MDM: 16:47 Patient medically screened. rt 20:26 Differential Diagnosis altered mental status, sepsis, flu. Data reviewed: vital signs, [facility] nurses notes, lab test result(s), EKG, radiologic studies, CT scan, plain films. Consideration of Admission/Observation Patient was admitted/placed on observation. Escalation of care including admission/observation considered. I considered the following discharge prescriptions or medication management in the emergency department Medications were administered in the Emergency Department. See MAR. Test considered but Not performed: Ultrasound abd usg. Care significantly affected by the following chronic conditions: Hypertension, seizure, asthma, ms. Counseling: I had a detailed discussion with the patient and/or guardian regarding: the historical points, exam findings, and any diagnostic results supporting the discharge/admit diagnosis, lab results, radiology results, the need for further work-up and treatment in the hospital. 01/21 16:55 Order name: CBC with Diff; Complete Time: 17:43 rt 01/21 16:55 Order name: CMP; Complete Time: 17:43 rt 01/21 16:55 Order name: Magnesium; Complete Time: 17:43 rt 01/21 16:55 Order name: Troponin High Sensitivity; Complete Time: 17:43 rt 01/21 16:55 Order name: Lactate w/ 2H reflex if indic.; Complete Time: 18:13 rt 01/21 16:55 Order name: UAM; Complete Time: 20:16 rt 01/21 20:09 Order name: BNP [facility] 01/21 20:14 Order name: Urine Culture EDCO 01/21 21:03 Order name: Lactate Sepsis 2 HR Follow-up; Complete Time: 21:47 EDMS 01/21 16:55 Order name: Chest Single View XRAY; Complete Time: 17:43 rt 01/21 20:17 Order name: CT Chest Abdomen Pelvis W/O Contrast [facility] 01/21 21:07 Order name: CT; Complete Time: 21:47 EDMS 01/21 16:55 Order name: EKG; Complete Time: 16:55 rt 01/21 16:55 Order name: EKG - Nurse/Tech; Complete Time: 17:27 rt EC:34 Rate is 56 beats/min. Rhythm is regular, Normal Sinus Rhythm with No ectopy, Artifact rt limits interpretation. QRS [place] is Normal. NE interval is normal. QRS interval is normal. Administered Medications: 17:16 Drug: NS 0.9% IV 500 ml Route: IV; Rate: bolus; Site: right wrist; kc6 18:58 Follow up: Response: No adverse reaction; IV Status: Completed infusion; IV Intake: kc6 500ml 21:15 Drug: NS 0.9% IV 500 ml Route: IV; Rate: bolus; Site: right forearm; ha1 21:45 Follow up: Response: No adverse reaction; IV Status: Completed infusion; IV Intake: ha1 500ml 21:16 Drug: Rocephin IV 1 grams Route: IV; Rate: per protocol; Site: right forearm; ha1 21:45 Follow up: Response: No adverse reaction; IV Status: Completed infusion; IV Intake: [id number] 21:16 Drug: NS 0.9% IV 1000 ml Route: IV; Rate: 125 ml/hr; Site: right forearm; ha1 Disposition Summary: 01/21/23 20:28 Hospitalization Ordered Hospitalization Status: Observation ervin Provider: Casey Kohler cha Location: Telemetry/MedSurg (observation) ervin Condition: Fair ervin Problem: new ervin Symptoms: have improved ervin Bed/Room Type: Standard ervin Room Assignment: 210(01/21/23 21:26) cg Diagnosis - Weakness ervin - Hypotension, unspecified ervin - UTI/ Urinary tract infection, site not specified ervin - Multiple sclerosis ervin Forms: - Medication Reconciliation Form ervin - SBAR form ervin Signatures: Dispatcher [employer] EDYusef Sims MD MD cha Attema, Lee, [employer] SUPERVISOR-C [employer] SUPER[employer]OR-Cla1 Elaine Laboy RN RN cg Sayra Pace RN RN ha1 Sulma Wheeler RN RN kc6 Theodore Ochoa MD MD rt Ivelisse Wynne RN RN nj1 Corrections: (The following items were deleted from the chart) : 20:28 ervin cg
--- NOTE | 2023-01-21 20:29 | ER ---
Nurse's Notes [facility] Name: Rosina Odonnell Age: 87 yrs Sex: Female : 1935 Arrival Date: 01/21/2023 Time: 16:42 Bed 3 Private MD: Casey Kohler C Diagnosis: Weakness;Hypotension, unspecified;UTI/ Urinary tract infection, site not specified;Multiple sclerosis Presentation: 01/21 16:45 Chief complaint: Patient's son or daughter states: Went for a schedule appointment at [facility] her PCP today, told her blood pressure low "80/40" and needed to come to ED for further treatment. Pt has not been eating well. 16:45 Method Of Arrival: Ambulatory [facility] 16:45 Coronavirus screen: Vaccine status: Patient reports receiving the 2nd dose of the covid nj1 vaccine. Ebola Screen: No symptoms or risks identified at this time. Initial Sepsis Screen: Does the patient meet any 2 criteria? No. Patient's initial sepsis screen is negative. Does the patient have a suspected source of infection? No. Patient's initial sepsis screen is negative. Risk Assessment: Do you want to hurt yourself or someone else? Patient reports no desire to harm self or others. Onset of symptoms was January 21, 2023. 16:45 Acuity: [place] 3 [facility] Historical: - Allergies: 17:02 Augmentin; [facility] 17:02 Sulfa (Sulfonamide Antibiotics); [facility] - PMHx: 17:02 Asthma; Hypertension; Multiple Sclerosis; Seizure; [facility] - PSHx: 17:02 EGD; GALLBLADDER; hysterectomy; sinus surgery; [facility] - Immunization history:: Client reports receiving the 2nd dose of the Covid vaccine. - Social history:: Smoking status: Patient denies any tobacco usage or history of. - Family history:: not pertinent. Screenin:17 [facility] ED Fall Risk Assessment (Adult) History of falling in the last 3 months, iw including since admission Yes- single mechanical fall (1 pt). Abuse screen: Denies threats or abuse. Denies injuries from another. Nutritional screening: No deficits noted. Tuberculosis screening: No symptoms or risk factors identified. Assessment: 17:00 General: Appears in no apparent distress. comfortable, Behavior is calm, cooperative, kc6 appropriate for age, restless. Pain: Denies pain. Neuro: [place] Agitation-Sedation Scale (RASS): 0 - Alert and Calm Level of Consciousness is awake, alert, obeys commands, Oriented to person, place, time, situation, Appropriate for age. Cardiovascular: Heart tones S1 S2 present Capillary refill < 3 seconds Rhythm is sinus rhythm Chest pain is denied. Respiratory: Airway is patent Trachea midline Respiratory effort is even, unlabored, Respiratory pattern is regular, symmetrical. GI: No signs and/or symptoms were reported involving the gastrointestinal system. : No signs and/or symptoms were reported regarding the genitourinary system. EENT: No signs and/or symptoms were reported regarding the EENT system. Derm: No signs and/or symptoms reported regarding the dermatologic system. Skin is intact, Skin is pink, warm \\T\\ dry. Musculoskeletal: No signs and/or symptoms reported regarding the musculoskeletal system. Circulation, motion, and sensation intact. Capillary refill < 3 seconds, Range of motion: intact in all extremities. 18:00 Reassessment: Patient appears in no apparent distress at this time. Patient and/or kc6 family updated on plan of care and expected duration. Pain level reassessed. Patient is alert, oriented x 3, equal unlabored respirations, skin warm/dry/pink. 19:20 Reassessment: Patient and/or family updated on plan of care and expected duration. Pain ha1 level reassessed. Patient is alert, oriented x 3, equal unlabored respirations, skin warm/dry/pink. Patient denies pain at this time. 19:20 General: Appears comfortable, Behavior is calm, cooperative. Neuro: Level of ha1 Consciousness is awake, alert, obeys commands, Oriented to person, place, time, situation. Respiratory: Airway is patent Respiratory effort is even, unlabored, Respiratory pattern is regular, symmetrical. 20:20 Reassessment: Patient and/or family updated on plan of care and expected duration. Pain ha1 level reassessed. Patient is alert, oriented x 3, equal unlabored respirations, skin warm/dry/pink. 21:20 Reassessment: Patient and/or family updated on plan of care and expected duration. Pain ha1 level reassessed. Patient is alert, oriented x 3, equal unlabored respirations, skin warm/dry/pink. 21:50 Reassessment: report given to MARIELLA Oliva by charge nurse MARIELLA Tejada. ha1 Vital Signs: 16:45 BP 106 / 63; Pulse 63; Resp 18; Temp 97.4(O); Pulse Ox 94% on R/A; Weight 43.09 kg; nj1 Height 5 ft. 6 in. ; 17:33 BP 127 / 92; Pulse 59; Resp 17 S; Pulse Ox 98% on R/A; kc6 18:29 BP 108 / 58; Pulse 74; Resp 16; Pulse Ox 95% on R/A; iw 19:30 BP 124 / 67; Pulse 78; Resp 18 S; Pulse Ox 96% on R/A; ha1 20:20 BP 149 / 87; Pulse 74; Resp 19 S; Pulse Ox 96% on R/A; ha1 21:30 BP 123 / 102; Pulse 70; Resp 18 S; Pulse Ox 98% on R/A; ha1 16:45 Body Mass Index 15.33 (43.09 kg, 167.64 cm) [facility] ED Course: 16:42 Patient arrived in ED. rg4 16:44 Theodore Ochoa MD is Attending Physician. rt 16:44 Casey Kohler MD is Private Physician. rg4 17:00 Patient has correct armband on for positive identification. Placed in gown. Bed in low kc6 position. Call light in reach. Side rails up X2. Adult w/ patient. 17:02 Triage completed. in1 17:02 Arm band placed on. nj1 17:16 Sulma Wheeler, MARIELLA is Primary Nurse. kc6 17:17 Initial lab(s) drawn, by wv, sent to lab. Inserted saline lock: 22 gauge in right iw forearm, using aseptic technique. Blood collected. 17:19 Lactate w/ 2H reflex if indic. Sent. iw 17:19 Troponin High Sensitivity Sent. iw 17:19 Magnesium Sent. iw 17:19 CMP Sent. iw 17:19 CBC with Diff Sent. iw 17:21 Chest Single View XRAY In Process Unspecified. EDMS 17:47 Notified ED physician of a critical lab result(s). lactate 2.6. db 20:06 Attending Physician role handed off by Theodore Ochoa MD ervin 20:06 Yusef Echavarria MD is Attending Physician. ervin 20:27 Casey Kohler MD is Hospitalizing Provider. ervni 20:55 Urine Culture Sent. ha1 21:37 No provider procedures requiring assistance completed. Patient admitted, IV remains in ha1 place. Administered Medications: 17:16 Drug: NS 0.9% IV 500 ml Route: IV; Rate: bolus; Site: right wrist; kc6 18:58 Follow up: Response: No adverse reaction; IV Status: Completed infusion; IV Intake: kc6 500ml 21:15 Drug: NS 0.9% IV 500 ml Route: IV; Rate: bolus; Site: right forearm; ha1 21:45 Follow up: Response: No adverse reaction; IV Status: Completed infusion; IV Intake: ha1 500ml 21:16 Drug: Rocephin IV 1 grams Route: IV; Rate: per protocol; Site: right forearm; ha1 21:45 Follow up: Response: No adverse reaction; IV Status: Completed infusion; IV Intake: [id number] 21:16 Drug: NS 0.9% IV 1000 ml Route: IV; Rate: 125 ml/hr; Site: right forearm; ha1 Medication: 21:50 VIS not applicable for this client. Intake: 18:58 IV: 500ml; Total: 500ml. kc6 21:45 IV: 50ml; Total: 550ml. ha1 21:45 IV: 500ml; Total: 1050ml. 1 Outcome: 20:28 Decision to Hospitalize by Provider. ervin 21:37 Admitted to [facility] 21:37 Condition: stable 21:49 Admitted to Med/surg via stretcher, with chart, Report called to Pj cole 21:49 Discharge instructions given to patient, Instructed on the need for admit, Demonstrated understanding of instructions. 21:52 Patient left the ED. Signatures: Dispatcher [employer] EDDE Moraima Lyman RN RN kl Anderson, Corey, MD MD cha Williams, Irene, RN RN iw Garcia, Rubi rg4 Sayra Pace RN RN 1 Sulma Wheeler RN RN kc6 Benton, Danielle, RN RN db [place], Ryan, MD MD rt Ivelisse Wynne RN RN nj1 Corrections: (The following items were deleted from the chart) 18:58 18:29 Reassessment: Patient appears in no apparent distress at this time. Patient kc6 and/or family updated on plan of care and expected duration. Pain level reassessed. Patient is alert, oriented x 3, equal unlabored respirations, skin warm/dry/pink. iw 20:48 19:30 Reassessment: attempted to give report. Simi, MARIELLA states " we did not know we were ha1 getting a patient, will call you back" ha1 48 20:20 Reassessment: attempted to give report. nurse not available. ha1 ha1 20:49 20:20 BP 137 / 66; Pulse 98bpm; Resp 19bpm; Spontaneous; Pulse Ox 99% RA; 1 1 01/22 01:45 01:45 Response: No adverse reaction; IV Status: Completed infusion; IV Intake: 500ml ha11
[2023-01-21] MEDS ORDERED: NA CHLORIDE 0.9% 1,000 ML ONE (20:39)
[2023-01-21] MEDS ORDERED: CEFTRIAXONE 1000 MG/VIAL ONE (20:39)
--- NOTE | 2023-01-21 21:06 | RAD REPORT ---
EXAM DESCRIPTION: CT - Chest Abd Pelvis Wo Con - 01/21/2023 8:56 pm CLINICAL HISTORY: Chest and abdomen pain. Congestion;Pain COMPARISON: <Comparisons> TECHNIQUE: Limited noncontrast study was performed. All CT scans are performed using dose optimization technique as appropriate and may include automated exposure control or mA/KV adjustment according to patient size. FINDINGS: The lungs are clear.Cholecystectomy clips.No pleural or pericardial effusion.No intrathora cic adenopathy.Left shoulder hardware is noted. The liver, spleen, pancreas, adrenal glands and kidneys are within normal limits. No bowel obstruction, free air, free fluid or abscess. Significant fecal retention noted throughout t he colon. Nonvisualized appendix. No pathologic lymphadenopathy in the abdomen or pelvis. Moderate lumbar degenerative changes. Aortic atherosclerosis. IMPRESSION: Significant fecal retention is seen throughout the colon.
[2023-01-21] MEDS ORDERED: ONDANSETRON 4 MG/2 ML VIAL IV PRN (22:19)
[2023-01-21] MEDS ORDERED: ACETAMINOPHEN 325 MG TABLET PO PRN (22:19)
[2023-01-21] MEDS: NA CHLORIDE 0.9% 1,000 ML IV SCH (22:30)
[2023-01-21] MEDS: FAMOTIDINE 20 MG/2 ML VIAL IV SCH (22:30)
[2023-01-21] MEDS ORDERED: ALPRAZOLAM 0.5 MG TABLET PO PRN ×2 (23:23→23:25)
[2023-01-21] MEDS ORDERED: DIPHENHYDRAMINE 25 MG TAB/CAP PO PRN (23:26)
[2023-01-21 23:46] VITALS: BMI 15.3
[2023-01-22 04:02] LABS: Absolute Lymphocytes (CBC) 2.7 K/uL (0.7-4.9); Hematocrit 29.4 % (36.0-45.0); Lymphocytes % 36.4 % (15.3-44.8); RBC Red Blood Cell Count 3.03 M/uL (3.86-4.86)
[2023-01-22 04:11] LABS: Potassium 3.7 mEq/L (3.5-5.1)
[2023-01-22] MEDS: NA CHLORIDE 0.9% 1,000 ML IV SCH (05:44)
[2023-01-22] MEDS: FAMOTIDINE 20 MG/2 ML VIAL IV SCH (08:21)
[2023-01-22 08:57] VITALS: O2SAT 95
[2023-01-22] MEDS ORDERED: CEFTRIAXONE 1,000 MG in NA CHLORIDE 0.9% 50 ML IVPB SCH (09:00)
[2023-01-22] MEDS ORDERED: ASPIRIN EC 81 MG TAB PO SCH (09:00)
[2023-01-22 10:05] VITALS: BP 128/60; TEMP 97.3
--- NOTE | 2023-01-22 14:27 | EKG ---
Test Date: 2023-01-21 Test Time: 17:30:25 Dispatcher Chief Coal Slurry: CARLOS MEASUREMENT RESULTS: Intervals: Rate: 56 AL: 182 QRSD: 94 QT: 434 QTc: 418 [place]: P: 58 AL: 182 QRS: 22 T: 64 INTERPRETIVE STATEMENTS: Sinus bradycardia with sinus arrhythmia T wave abnormality, consider inferior ischemia Abnormal ECG Compared to ECG 09/29/2022 14:14:05 T-wave abnormality now present Possible ischemia now present Sinus rhythm no longer present Atrial abnormality no longer present Myocardial infarct finding no longer present Electronically Signed On 01-22-23 14:26:06 CDT by Jeremy Neely
--- NOTE | 2023-01-22 23:39 | DS ---
Date of Discharge: 01/22/2023 Disposition: Discharged to go home. Physical Examination: HEENT: Unremarkable. Lungs: Clear to auscultation. Heart: Sounds normal. Abdomen: Soft. Bowel sounds normal. No guarding, rigidity, tenderness, or distention. Extremities: No leg edema. Laboratory Data: Today white count 7.9, hemoglobin 9.8, and platelets 172. Sodium 140, potassium 3. 7, chloride 111, bicarb 25, BUN 27, creatinine 0.91, and glucose 146. Urine culture result pending. Discharge Medications And Instructions: 1.Continue all prior home medications except following changes: a.Check blood pressure before taking carvedilol and valsartan and do not take carvedilol, if systoli c blood pressure is less than 120 and do not take valsartan systolic blood pressure is less than 130. b.Take Cipro 500 mg 2 times a day for 1 week. 2.Follow up at my office next week. Final Diagnoses: 1.Hypotension. 2.Volume depletion. 3.Anemia, unspecified. 4.Hypertension. 5.Mixed hyperlipidemia. 6.Hypothyroidism. 7.Depression. 8.Insomnia. 9.Osteoarthritis, multiple sites. Hospital Course: This is an 87-year-old pleasant female patient admitted to the hospital with low bl ood pressure, feeling weak and tired. Please see dictated H and P for more information. After the p atient was evaluated at office, she was sent to emergency room with this low blood pressure problem a nd after she was evaluated, she was admitted to the hospital. There were no signs of any bleeding, n o vomiting, and no diarrhea. IV fluid was given and her blood pressure has improved. This morning w hen I saw her, she was feeling better. No new complaints or problems reported by her. Her urinalysi s is abnormal, consistent with urinary tract infection and ceftriaxone was started. Urine specimen w as sent for culture. We will follow up on the results. Meanwhile on outpatient basis, we will give her Cipro for urinary tract infection. I will see her next week for followup. ANH/MODL Voice ID: [id number] Report ID: [id number]
--- NOTE | 2023-01-22 23:54 | HP ---
Date of Admission: 01/21/2023 Chief Complaint: Feeling tired, weak, and low blood pressure. History Of Present Illness: This is an 87-year-old very pleasant female patient who came into office today for her usual appointment and she reported that she has been feeling weak, tired, and her bloo d pressure was low at office. She denies any fever, chills, nausea, or vomiting. Denies any diarrhe a. No blood in urine. No blood in stool. After she was evaluated at office, it was recommended for her to come to emergency room for further evaluation and after she was evaluated in the ER, she was admitted to the hospital. Allergies: TO AUGMENTIN CAUSING ITCHING AND SULFA CAUSING ITCHING. Medication: List reviewed. Review of Systems: Constitutional: As mentioned above. All other systems reviewed and negative. Past Medical History: Significant for seizure disorder, multiple sclerosis, hypothyroidism, asthma, hypertension, mixed hyperlipidemia, mitral stenosis, diverticulosis, osteoarthritis, anemia, depressi on, and insomnia. Past Surgical History: Significant for sinus surgery, benign left breast tumor, hysterectomy, left s houlder surgery, and right elbow surgery. Family History: Father , had subdural hematoma. Mother , had hypertension. Social History: Negative for smoking and alcohol use. Physical Examination: Vital Signs: Her vital signs at office when she came in were blood pressure 84/45, pulse 71, respira tory rate 16, temperature 95.8, weight 97.6 pounds, and height 66 inches. General: Awake, alert, oriented, not in distress. HEENT: Head atraumatic, normocephalic. Conjunctivae nonerythematous. Sclerae white. Mouth, no thr ush or edema noted. Ears/Nose, no mass, lesion, discharge noted. Neck: Supple. No JVD, lymph nodes, bruit, thyromegaly noted. Lungs: Bilateral good equal air entry. Clear to auscultation. No rhonchi. No rales. Heart: Normal heart sounds, no murmur or gallop. Abdomen: Soft, bowel sounds normal. No guarding, rigidity, tenderness, mass, hepatosplenomegaly, dis tention, or bruit noted. Extremities: No leg edema. No calf tenderness. Skin: No rash, ulcer, cellulitis. Lymphatics: No lymph node enlargement in neck, supraclavicular, infraclavicular region. Neuro: No focal neurological deficit. Chest: Unremarkable. External Genitalia: Deferred. Rectal: Deferred. Laboratory Data: Urinalysis: 20 to 50 WBC and bacteria and positive for leukocyte esterase. White count 8.6, hemoglobin 11.1, and platelets 234. Sodium 141, potassium 3.5, chloride 109, bicarb 28, B UN 28, creatinine 1.23, and glucose 127. Liver function tests normal. Lactic acid 2.6. Impression: 1.Hypotension. 2.Urinary tract infection. 3.Anemia, unspecified. 4.Volume depletion. 5.Hypertension. 6.Mixed hyperlipidemia. 7.Osteoarthritis, multiple sites. 8.Hypothyroidism. 9.Insomnia. 10.Depression. Plan: Admit the patient to hospital for further evaluation and management of this problem. The lala ent is appropriate for observation and IV fluid was started and IV antibiotic, ceftriaxone was starte d. We will repeat blood work tomorrow morning and I will see her in the morning for followup. Kavon lee of plan of treatment were discussed with the patient. We will not give any antihypertensive medic ation, she takes carvedilol and valsartan at home and we will monitor blood pressure. For insomnia, alprazolam was ordered. Depending on her condition tomorrow, we will decide if we can possibly disch arge her to go home tomorrow morning or not. Urine will be sent for culture and we will follow up on the results. ANH/RIGO Voice ID: [id number]
== END 2023-01-22 12:33 | disposition home or self-care (01) ==
LOC: ER 16:42 → ERHOLD 20:30 → 2ND 21:31
PROVIDERS: ADMIT Internal Medicine; ATTEND Internal Medicine
DX: I95.9 Hypotension, unspecified (principal); N39.0 Urinary tract infection, site not specified; D64.9 Anemia, unspecified; I10 Essential (primary) hypertension; E78.2 Mixed hyperlipidemia; E78.5 Hyperlipidemia, unspecified; M19.90 Unspecified osteoarthritis, unspecified site; E03.9 Hypothyroidism, unspecified; G47.00 Insomnia, unspecified; F32.A Depression, unspecified; E86.9 Volume depletion, unspecified; Z88.2 Allergy status to sulfonamides; Z88.1 Allergy status to other antibiotic agents; R53.1 Weakness; G35 Multiple sclerosis
CPT/HCPCS: 96365; 96361; 93005; 87088; 85025 ×2; 81001; 87086; 80048; 36415; 83735; 83605 ×2; 87077; 87186; 84484 ×2; 80053; 83880; 71250; 74176; 71045; 99285; J7040 ×2; J7030 ×2; J0696 ×2; G0378 ×3

== ENCOUNTER 2023-12-21 19:07 | Emergency (ER) | payer OTHER ==
--- NOTE | 2023-12-21 20:01 | RAD REPORT ---
EXAM DESCRIPTION: RAD - Chest Single View - 12/21/2023 7:51 pm CLINICAL HISTORY: altered mental status Chest pain. COMPARISON: Chest Single View dated 01/21/2023; Chest Pa And Lat (2 Views) dated 11/12/2022; Chest Pa A nd Lat (2 Views) dated 09/17/2022; Chest Single View dated 04/18/2021 FINDINGS: Portable technique limits examination quality. The lungs are emphysematous but grossly clear. The heart is normal in size. No displaced fractures.To rtuous thoracic aorta. Hardware is present in both arms. IMPRESSION: No acute intrathoracic process suspected.
[2023-12-21] MEDS ORDERED: NA CHLORIDE 0.9% 500 ML ONE (20:38)
[2023-12-21 21:08] LABS: Sqamous Epithelial <5 /HPF (None Seen); Urine Bacteria 20-50 /HPF (<20); Urine Bilirubin NEGATIVE (Negative); Urine Blood Negative (Negative); Urine Clarity Turbid (Clear); Urine Color Light-Yellow (Yellow); Urine Culture Reflex Order REFLEXED; Urine Glucose NEGATIVE (Negative); Urine Ketones 3+ (Negative); Urine Microscopic Reflex YN ORDER UMIC; Urine Nitrite 2+ (Negative); Urine Protein TRACE (Negative); Urine RBC <5 /HPF (None Seen); Urine Urobilinogen Normal (Normal); Urine WBC 20-50 /HPF (<5); Urine pH 5.5 (5.0-7.0)
[2023-12-21 21:20] LABS: AST/SGOT 13 U/L (15-37); Albumin 3.1 g/dL (3.4-5.0); Albumin/Globulin Ratio 0.9 (1.1-1.8); Alkaline Phosphatase 84 U/L (45-117); Anion Gap 12.1 mEq/L (5.0-15.0); BUN Blood Urea Nitrogen 23 mg/dL (7-18); Bicarbonate 23 mEq/L (21-32); Bilirubin Total 0.6 mg/dL (0.2-1.0); Globulin 3.6 g/dL (2.3-3.5); Glomerular Filtration Rate 84 ml/min (=/>90); Glucose Level 119 mg/dL (74-106); Potassium 4.1 mEq/L (3.5-5.1); Protein, Total 6.7 g/dL (6.4-8.2); Sodium Level 140 mEq/L (136-145)
[2023-12-21 21:24] LABS: ALT/SGPT < 10 U/L (13-56)
[2023-12-21] MEDS ORDERED: KETOROLAC 30 MG/ML INJ ONE (21:42)
[2023-12-21] MEDS ORDERED: CEFTRIAXONE 1000 MG/VIAL ONE (21:56)
[2023-12-21 22:00] LABS: Absolute Basophils 0.1 K/uL (0-0.5); Absolute Lymphocytes (CBC) 1.1 K/uL (0.7-4.9); Absolute Monocytes 0.4 K/uL (0.1-1.3); Absolute Neutrophil 6.8 K/uL (1.8-8.0); Basophils % 1.1 % (0-1.3); Hematocrit 35.7 % (36.0-45.0); Hemoglobin 11.9 g/dL (12.0-15.0); Lymphocytes % 13.5 % (15.3-44.8); MCH 31.3 pg (27.0-35.0); MCHC 33.3 g/dL (32.0-36.0); MCV 94.2 fL (80-100); MPV 7.5 fL (7.6-11.3); Monocytes % 4.9 % (3.3-12.3); Neutrophils % 80.5 % (41.7-73.7); Nucleated Red Blood Cells % 0.1 % (0-0); Platelets 277 thou/uL (152-406); RBC Red Blood Cell Count 3.79 M/uL (3.86-4.86); Red Cell Distribution Width 13.3 % (12.1-15.2)
[2023-12-21 22:20] LABS: PT Prothrombin Time 12.5 SECONDS (9.5-12.5); PTT, Activated Partial Thromb 29.5 SECONDS (24.3-36.9); Protime INR 1.14
--- NOTE | 2023-12-21 22:57 | ER ---
Nurse's Notes [facility] Name: Rosina Odonnell Age: 88 yrs Sex: Female : 1935 Arrival Date: 12/21/2023 Time: 19:07 Bed 20 Private MD: Diagnosis: UTI/ Urinary tract infection, site not specified Presentation: 12/20 19:14 Chief complaint: EMS states: Altered mental status since yesterday. history of frequent ha1 UTIs. Coronavirus screen: Vaccine status:. Ebola Screen: No symptoms or risks identified at this time. Initial Sepsis Screen: Does the patient meet any 2 criteria? No. Patient's initial sepsis screen is negative. Does the patient have a suspected source of infection? No. Patient's initial sepsis screen is negative. Risk Assessment: Do you want to hurt yourself or someone else? Patient reports no desire to harm self or others. Onset of symptoms was December 21, 2023. 19:14 Method Of Arrival: EMS: [facility] ha1 19:14 Acuity: AMERICA 3 ha1 Triage Assessment: 19:11 General: Appears uncomfortable, ill, Behavior is cooperative. Pain: Complains of pain ha1 in generalized body aches Pain does not radiate. Neuro: Level of Consciousness is awake, alert, obeys commands, Oriented to person, place, time, situation. Cardiovascular: Capillary refill < 3 seconds Patient's skin is warm and dry. Respiratory: Airway is patent Respiratory effort is even, unlabored, Respiratory pattern is regular, symmetrical. GI: No signs and/or symptoms were reported involving the gastrointestinal system. : Urine is bad order smell of urine. Derm: Skin is pink, warm \T\ dry. Musculoskeletal: Circulation, motion, and sensation intact. Historical: - Allergies: 19:14 Augmentin; ha1 19:14 Sulfa (Sulfonamide Antibiotics); ha1 19:14 PENICILLINS; ha1 - PMHx: 19:14 Asthma; Hypertension; Multiple Sclerosis; Seizure; ha1 - PSHx: 19:14 EGD; GALLBLADDER; hysterectomy; sinus surgery; ha1 - Immunization history:: Adult Immunizations unknown. - Infectious Disease History:: Denies. - Social history:: Smoking status: unknown. Screenin:25 [facility] ED Fall Risk Assessment (Adult) History of falling in the last 3 months, ha1 including since admission Yes- single mechanical fall (1 pt) Confusion or Disorientation Yes (5 pts) Intoxicated or Sedated No (0 pts) Impaired Gait No (0 pts) Mobility Assist Device Used Yes (1 pt) Altered Elimination Yes (1 pt) Score/Fall Risk Level 3 or more points = High Risk Oriented to surroundings, Maintained a safe environment, Educated pt \T\ family on fall prevention, incl call for assistance when getting out of bed, Hourly rounding (assess needs \T\ fall precautionary measures) done. Abuse screen: Denies threats or abuse. Denies injuries from another. Nutritional screening: No deficits noted. Tuberculosis screening: No symptoms or risk factors identified. Assessment: 19:11 Reassessment: see triage assessment. ha1 20:10 Reassessment: Patient and/or family updated on plan of care and expected duration. Pain ha1 level reassessed. Patient is alert, oriented x 3, equal unlabored respirations, skin warm/dry/pink. Patient states feeling better. Patient states symptoms have improved. 21:10 Reassessment: Patient and/or family updated on plan of care and expected duration. Pain ha1 level reassessed. Patient is alert, oriented x 3, equal unlabored respirations, skin warm/dry/pink. Patient states feeling better. Patient states symptoms have improved. 22:12 Reassessment: Patient and/or family updated on plan of care and expected duration. Pain ha1 level reassessed. Patient is alert, oriented x 3, equal unlabored respirations, skin warm/dry/pink. 23:25 Reassessment: Patient and/or family updated on plan of care and expected duration. Pain ha1 level reassessed. Patient is alert, oriented x 3, equal unlabored respirations, skin warm/dry/pink. Vital Signs: 19:14 BP 166 / 99; Pulse 91; Resp 18 S; Temp 98.2; Pulse Ox 99% on R/A; Weight 45.36 kg; ha1 Height 5 ft. 2 in. ; 20:10 BP 132 / 97; Pulse 86; Resp 17 S; Pulse Ox 99% on R/A; ha1 21:00 BP 143 / 97; Pulse 85; Resp 17 S; Pulse Ox 99% on R/A; ha1 22:12 BP 136 / 75; Pulse 84; Resp 17 S; Pulse Ox 98% on R/A; ha1 23:15 BP 144 / 77; Pulse 87; Resp 17 S; Pulse Ox 98% on R/A; ha1 19:14 Body Mass Index 18.29 (45.36 kg, 157.48 cm) ha1 ED Course: 19:11 Patient arrived in ED. rv1 19:11 Patient has correct armband on for positive identification. Placed in gown. Bed in low ha1 position. Call light in reach. Side rails up X2. 19:11 Arm band placed on right wrist. ha1 19:14 Sayra Pace, MARIELLA is Primary Nurse. ha1 19:19 Yusef Brush PA is PHCP. cp 19:19 Emil Pham MD is Attending Physician. cp 19:22 Triage completed. ha1 19:53 Chest Single View XRAY In Process Unspecified. EDMS 20:35 Blood Culture Adult (2) Sent. ha1 20:35 CBC with Diff Sent. ha1 20:35 CMP Sent. ha1 20:35 Lactate w/ 2H reflex if indic. Sent. ha1 20:35 Protime (+inr) Sent. ha1 20:35 Maintain EMS IV. Dressing intact. Good blood return noted. Site clean \T\ dry. Gauge \T\ ye 1 site: 20 gauge R. Forearm . 23:15 No provider procedures requiring assistance completed. IV discontinued, intact, ha1 bleeding controlled, No redness/swelling at site. Pressure dressing applied. 23:20 Provided Education on: medication administration . 1 Administered Medications: 20:00 Drug: NS 0.9% IV 500 ml IV at 500 ml/hr continuous Route: IV; Rate: 500 ml/hr; Site: [facility] right forearm; 23:00 Follow up: Response: No adverse reaction; IV Status: Completed infusion; IV Intake: ha1 500ml 21:40 Drug: Ketorolac IVP 15 mg IVP once Route: IVP; Site: right forearm; [facility] 22:00 Follow up: Response: No adverse reaction; Marked relief of symptoms ha1 22:05 Drug: Rocephin IV 1 grams IV at calculated rate once; Given slow IV push per pharmacy [facility] instructions Route: IV; Rate: calculated rate; Site: right forearm; 22:20 Follow up: Response: No adverse reaction; IV Status: Completed infusion; IV Intake: [id number] Medication: 23:20 VIS not applicable for this client. ha1 Intake: 22:20 IV: 50ml; Total: 50ml. ha1 23:00 IV: 500ml; Total: 550ml. ha1 Outcome: 22:57 Discharge ordered by . john 23:20 Condition: stable ha1 23:20 Discharged to home via wheelchair, with family, ha1 23:20 Discharge instructions given to patient, family, Instructed on discharge instructions, follow up and referral plans. medication usage, Demonstrated understanding of instructions, follow-up care, medications, Prescriptions given X 1, 23:20 Patient left the ED. ha1 Signatures: Dispatcher [employer] EDMS Yusef Brush PA PA cp Ayala, Heidy, RN RN ha1 Chelly Boyle rv1 Corrections: (The following items were deleted from the chart) 23:32 23:31 Response: No adverse reaction; IV Status: Completed infusion; IV Intake: 50ml ha1 ha1 23:32 23:32 Response: No adverse reaction; IV Status: Completed infusion; IV Intake: 50ml ha1 ha1 23:34 23:33 Patient left the ED. ha1 ha1
--- NOTE | 2023-12-21 22:57 | EDPHYS ---
Physician Documentation [facility] Name: Rosina Odonnell Age: 88 yrs Sex: Female : 1935 Arrival Date: 12/21/2023 Time: 19:07 Bed 20 Private MD: ED Physician Emil Pham HPI: 12/20 19:30 This 88 yrs old Female presents to ER via EMS with complaints of Altered Mental Status. cp 19:30 The patient presents with confusion. Onset: The symptoms/episode began/occurred today. cp Possible causes: uti. Associated signs and symptoms: Pertinent negatives: abdominal pain, chest pain, diaphoresis, diarrhea, headache, vomiting. Current symptoms: In the emergency department the patient's symptoms are unchanged from the initial presentation, despite EMS interventions. Historical: - Allergies: 19:14 Augmentin; ha1 19:14 Sulfa (Sulfonamide Antibiotics); ha1 19:14 PENICILLINS; ha1 - PMHx: 19:14 Asthma; Hypertension; Multiple Sclerosis; Seizure; ha1 - PSHx: 19:14 EGD; GALLBLADDER; hysterectomy; sinus surgery; ha1 - Immunization history:: Adult Immunizations unknown. - Infectious Disease History:: Denies. - Social history:: Smoking status: unknown. ROS: 19:40 Cardiovascular: Negative for chest pain, cp 19:40 Constitutional: Negative for body aches, chills, fever, poor PO intake, cp 19:40 Respiratory: Negative for cough, shortness of breath, wheezing, 19:40 Abdomen/GI: Negative for abdominal pain, 19:40 Skin: Negative for cellulitis, rash, 19:40 Neuro: Positive for altered mental status, 19:40 All other systems are negative, Exam: 19:45 Constitutional: The patient appears in no acute distress, alert, awake, cp non-diaphoretic, non-toxic, well developed, frail, 19:45 Head/Face: Normocephalic, atraumatic. cp 19:45 Eyes: Periorbital structures: appear normal, Pupils: equal, round, and reactive to light and accomodation, Conjunctiva: normal, no exudate, no injection, Sclera: no appreciated abnormality, Lids and lashes: appear normal, bilaterally, 19:45 ENT: External ear(s): are unremarkable, Nose: is normal, Mouth: Lips: moist, Oral mucosa: pink and intact, moist, Posterior pharynx: is normal, airway is patent, no erythema, no exudate, 19:45 Neck: ROM/movement: is normal, is supple, without pain, no range of motions limitations, no meningismus, no nuchal rigidity, 19:45 Chest/axilla: Inspection: normal, Palpation: is normal, no crepitus, no tenderness, 19:45 Cardiovascular: Rate: normal, Rhythm: regular, Edema: is not appreciated, JVD: is not appreciated, 19:45 Respiratory: the patient does not display signs of respiratory distress, Respirations: normal, no use of accessory muscles, no retractions, labored breathing, is not present, Breath sounds: are clear throughout, no decreased breath sounds, no stridor, no wheezing, 19:45 Abdomen/GI: Inspection: abdomen appears normal, Palpation: abdomen is soft and non-tender, in all quadrants, 19:45 Back: pain, is absent, ROM is normal, 19:45 Neuro: Orientation: to person, situation, Mentation: able to follow commands, slow to respond, Motor: moves all fours, no focal deficits, 21:12 ECG was reviewed by the Attending Physician. Vital Signs: 19:14 BP 166 / 99; Pulse 91; Resp 18 S; Temp 98.2; Pulse Ox 99% on R/A; Weight 45.36 kg; ha1 Height 5 ft. 2 in. ; 20:10 BP 132 / 97; Pulse 86; Resp 17 S; Pulse Ox 99% on R/A; ha1 21:00 BP 143 / 97; Pulse 85; Resp 17 S; Pulse Ox 99% on R/A; ha1 22:12 BP 136 / 75; Pulse 84; Resp 17 S; Pulse Ox 98% on R/A; ha1 23:15 BP 144 / 77; Pulse 87; Resp 17 S; Pulse Ox 98% on R/A; ha1 19:14 Body Mass Index 18.29 (45.36 kg, 157.48 cm) ha1 MDM: 19:19 Patient medically screened. 22:55 Data reviewed: vital signs, nurses notes, lab test result(s), EKG, radiologic studies, plain films. 22:55 I considered the following discharge prescriptions or medication management in the emergency department Medications were administered in the Emergency Department. See MAR. Historians other than the Patient: Spouse/Significant Other: . ED course: reevaluation: reports patient is at baseline mentally. patient was brought to ED as she seemed confused upon awakening today, concerned about possible uti. would like discharge to home and will treat with oral antibiotic. 12/20 19:24 Order name: Blood Culture Adult (2) cp 12/20 19:24 Order name: CBC with Diff; Complete Time: 22:53 cp 12/20 22:53 Interpretation: Normal except: RBC 3.79; HGB 11.9; HCT 35.7; MPV 7.5; ROMULO% 80.5; LYM% cp 13.5. 12/20 19:24 Order name: CMP; Complete Time: 21:41 cp 12/20 22:53 Interpretation: Normal except: CL 109; GLUC 119; BUN 23; GFR 84; AST 13; ALT < 10; CA cp 8.2; ALB 3.1; GLOB 3.6; A/G 0.9. 12/20 19:24 Order name: Lactate w/ 2H reflex if indic.; Complete Time: 21:41 cp 12/20 19:24 Order name: Protime (+inr); Complete Time: 22:53 cp 12/20 19:24 Order name: Ptt, Activated; Complete Time: 22:53 cp 12/20 19:24 Order name: Urinalysis w/ reflexes; Complete Time: 21:41 cp 12/20 19:24 Order name: Troponin High Sensitivity; Complete Time: 21:41 cp 12/20 21:12 Order name: Urine Culture EDNC 12/20 19:24 Order name: Chest Single View XRAY; Complete Time: 20:54 cp 12/20 19:24 Order name: Accucheck; Complete Time: 20:35 cp 12/20 19:24 Order name: Cardiac monitoring; Complete Time: 19:27 cp 12/20 19:24 Order name: EKG - Nurse/Tech; Complete Time: 21:01 cp 12/20 19:24 Order name: IV Saline Lock - Large Bore; Complete Time: 19:27 cp 12/20 19:24 Order name: Labs collected and sent; Complete Time: 20:34 cp 12/20 19:24 Order name: O2 Per Protocol; Complete Time: 20:34 cp 12/20 19:24 Order name: O2 Sat Monitoring; Complete Time: 20:34 cp 12/20 19:24 Order name: Vital Signs; Complete Time: 20:35 cp EC:12 Rate is 82 beats/min. Rhythm is regular. LA interval is normal. QRS interval is normal. cp QT interval is normal. T waves are Inverted in lead aVR. Interpreted by me. Reviewed by me. Administered Medications: 20:00 Drug: NS 0.9% IV 500 ml IV at 500 ml/hr continuous Route: IV; Rate: 500 ml/hr; Site: ha right forearm; 23:00 Follow up: Response: No adverse reaction; IV Status: Completed infusion; IV Intake: ha1 500ml 21:40 Drug: Ketorolac IVP 15 mg IVP once Route: IVP; Site: right forearm; [facility] 22:00 Follow up: Response: No adverse reaction; Marked relief of symptoms [facility] 22:05 Drug: Rocephin IV 1 grams IV at calculated rate once; Given slow IV push per pharmacy ha1 instructions Route: IV; Rate: calculated rate; Site: right forearm; 22:20 Follow up: Response: No adverse reaction; IV Status: Completed infusion; IV Intake: [id number] Disposition Summary: 12/21/23 22:57 Discharge Ordered Notes: Location: Home cp Problem: new cp Symptoms: have improved cp Condition: Stable cp Diagnosis - UTI/ Urinary tract infection, site not specified cp Followup: cp - With: Private Physician - When: 1 - 2 days - Reason: Recheck today's complaints Discharge Instructions: - Discharge Summary Sheet cp - Urinary Tract Infection, Adult cp Forms: - Medication Reconciliation Form cp - Thank You Letter cp - Antibiotic Education cp - Prescription Opioid Use cp - Patient Portal Instructions cp - Leadership Thank You Letter cp Prescriptions: - Macrobid 100 mg Oral Capsule - take 1 capsule ORAL route every 12 hours for 7 days; 14 capsule; Refills: 0, cp Product Selection Permitted Signatures: Dispatcher [employer] EDYuesf Perez PA PA cp Ayala, Heidy RN RN ha1 Corrections: (The following items were deleted from the chart) 19:25 19:25 Chest Single View+RAD.RAD.BRZ ordered. EDMS EDMS
[2023-12-22 06:14] VITALS: BP 144/77; TEMP 98.2; O2SAT 98
--- NOTE | 2023-12-22 16:16 | EKG ---
Test Date: 2023-12-21 Test Time: 21:05:14 Supervisor [employer] Cleaning: DENISHA MEASUREMENT RESULTS: Intervals: Rate: 82 NM: 188 QRSD: 82 QT: 396 QTc: 462 [place]: P: 70 NM: 188 QRS: 18 T: 43 INTERPRETIVE STATEMENTS: Normal sinus rhythm with sinus arrhythmia Normal ECG Compared to ECG 01/21/2023 17:30:25 Sinus bradycardia no longer present T-wave abnormality no longer present Possible ischemia no longer present Electronically Signed On 12-22-23 16:14:32 CDT by Jeremy Neely
== END 2023-12-21 23:33 | disposition home or self-care (01) ==
LOC: ER 19:07
DX: N39.0 Urinary tract infection, site not specified (principal); Z88.0 Allergy status to penicillin; Z88.1 Allergy status to other antibiotic agents; Z88.2 Allergy status to sulfonamides
CPT/HCPCS: 96361; 93005; 87040 ×2; 87088; 85025; 81001; 87086; 36415; 85610; 83605; 85730; 84484; 80053; 71045; 96375; 96374; 99284; J7040; J0696

== ENCOUNTER 2024-01-10 22:26 | Inpatient (IN) | payer OTHER ==
[2024-01-10] MEDS ORDERED: CEFTRIAXONE 1000 MG/VIAL ONE (23:31)
[2024-01-10] MEDS ORDERED: NA CHLORIDE 0.9% 50 ML ONE (23:31)
[2024-01-10 23:38] LABS: Absolute Basophils 0.1 K/uL (0-0.5); Absolute Eosinophils 0.1 K/uL (0-0.5); Absolute Lymphocytes (CBC) 1.6 K/uL (0.7-4.9); Absolute Monocytes 0.8 K/uL (0.1-1.3); Absolute Neutrophil 6.7 K/uL (1.8-8.0); Eosinophils % 0.9 % (0-4.4); Hematocrit 36.9 % (36.0-45.0); Hemoglobin 12.2 g/dL (12.0-15.0); Lymphocytes % 17.5 % (15.3-44.8); MCH 31.3 pg (27.0-35.0); MCHC 33.2 g/dL (32.0-36.0); MCV 94.5 fL (80-100); Monocytes % 8.1 % (3.3-12.3); Neutrophils % 72.5 % (41.7-73.7); Nucleated Red Blood Cells % 0.2 % (0-0); Platelets 234 thou/uL (152-406); Red Cell Distribution Width 13.6 % (12.1-15.2)
[2024-01-10 23:42] LABS: PT Prothrombin Time 11.8 SECONDS (9.5-12.5); PTT, Activated Partial Thromb 29.9 SECONDS (24.3-36.9); Protime INR 1.07
[2024-01-10 23:53] LABS: Albumin 3.2 g/dL (3.4-5.0); Albumin/Globulin Ratio 0.9 (1.1-1.8); Anion Gap 6.2 mEq/L (5.0-15.0); Bilirubin Total 0.6 mg/dL (0.2-1.0); Globulin 3.7 g/dL (2.3-3.5); Potassium 4.2 mEq/L (3.5-5.1); Protein, Total 6.9 g/dL (6.4-8.2); Troponin High Sensitivity 6.6 pg/mL (<58.9)
[2024-01-11] MEDS ORDERED: ZIPRASIDONE MESYLA 20 MG/VIAL IM ONE (00:09)
[2024-01-11] MEDS ORDERED: WATER FOR INJ,STERILE 10 ML ONE (00:10)
[2024-01-11] MEDS ORDERED: NA CHLORIDE 0.9% 1,000 ML ONE (00:43)
[2024-01-11 00:47] LABS: Specific Gravity 1.023 (1.005-1.030); Sqamous Epithelial <5 /HPF (None Seen); Urine Bacteria >50 /HPF (<20); Urine Bilirubin NEGATIVE (Negative); Urine Blood 1+ (Negative); Urine Clarity Extremely Turbid (Clear); Urine Color Yellow (Yellow); Urine Culture Reflex Order REFLEXED; Urine Glucose NEGATIVE (Negative); Urine Ketones NEGATIVE (Negative); Urine Microscopic Reflex YN ORDER UMIC; Urine Nitrite 2+ (Negative); Urine Protein 1+ (Negative); Urine Urobilinogen Normal (Normal); Urine WBC >50 /HPF (<5)
--- NOTE | 2024-01-11 02:21 | ER ---
Nurse's Notes [facility] Name: Rosina Odonnell Age: 88 yrs Sex: Female : 1935 Arrival Date: 01/10/2024 Time: 22:26 Bed 18 Private MD: Diagnosis: Acute hypoactive delirium, acute pyelonephritis Presentation: 01/09 22:39 Chief complaint: Spouse and/or significant other states: Pt has not been acting like cm10 herself recently. Pts states that patient has been confused and slept all day yesterday and when she woke up she didn't know where she was. Pt is A\T\Ox, herself and time. Last known normal was 2 days ago. Coronavirus screen: Client denies travel out of the [place] in the last 14 days. At this time, the client does not indicate any symptoms associated with coronavirus-19. Ebola Screen: Patient denies travel to an Ebola-affected area in the 21 days before illness onset. No symptoms or risks identified at this time. Initial Sepsis Screen: Does the patient meet any 2 criteria? Altered Mental Status. Does the patient have a suspected source of infection? No. Patient's initial sepsis screen is negative. Risk Assessment: Do you want to hurt yourself or someone else? Patient reports no desire to harm self or others. Onset of symptoms was January 08, 2024. 22:39 Method Of Arrival: Wheelchair cm10 22:39 Acuity: AMERICA 2 cm10 Triage Assessment: 22:42 General: Appears in no apparent distress. Behavior is cooperative. Pain: Denies pain. cm10 Neuro: Level of Consciousness is awake, obeys commands, confused, Oriented to person, time. Respiratory: No deficits noted. Airway is patent Respiratory effort is even, unlabored, Respiratory pattern is regular, symmetrical. Historical: - Allergies: 22:41 Augmentin; cm10 22:41 PENICILLINS; cm10 22:41 Sulfa (Sulfonamide Antibiotics); cm10 - PMHx: 22:41 Asthma; Hypertension; Multiple Sclerosis; Seizure; cm10 - PSHx: 22:41 EGD; GALLBLADDER; hysterectomy; sinus surgery; cm10 - Immunization history:: Adult Immunizations up to date. - Infectious Disease History:: Denies. - Social history:: Smoking status: Patient denies any tobacco usage or history of. - Family history:: not pertinent. Screenin:42 [facility] ED Fall Risk Assessment (Adult) History of falling in the last 3 months, cm10 including since admission No falls in past 3 months (0 pts) Confusion or Disorientation Yes (5 pts) Intoxicated or Sedated No (0 pts) Impaired Gait Yes (1 pt) Mobility Assist Device Used Yes (1 pt) Altered Elimination No (0 pt) Score/Fall Risk Level 3 or more points = High Risk Oriented to surroundings, Maintained a safe environment, Hourly rounding (assess needs \T\ fall precautionary measures) done. Abuse screen: Denies threats or abuse. Denies injuries from another. Nutritional screening: No deficits noted. Tuberculosis screening: No symptoms or risk factors identified. Assessment: 01/08 22:40 General: Appears in no apparent distress. comfortable, well groomed, well developed, pf1 Behavior is anxious, restless. 22:40 Neuro: No deficits noted. Level of Consciousness is awake, alert, obeys commands, pf1 Oriented to person, place. Cardiovascular: No deficits noted. Capillary refill < 3 seconds Patient's skin is warm and dry. Respiratory: No deficits noted. Airway is patent Respiratory effort is even, unlabored, Respiratory pattern is regular, symmetrical. GI: No deficits noted. No signs and/or symptoms were reported involving the gastrointestinal system. Abdomen is flat, non-distended, Bowel sounds present X 4 quads. : Parent/caregiver report the patient having stated patient does self cath at home. EENT: No deficits noted. No signs and/or symptoms were reported regarding the EENT system. Derm: No deficits noted. No signs and/or symptoms reported regarding the dermatologic system. Musculoskeletal: No deficits noted. No signs and/or symptoms reported regarding the musculoskeletal system. 01/09 23:30 Reassessment: Patient appears in no apparent distress at this time. No changes from pf1 previously documented assessment. Patient and/or family updated on plan of care and expected duration. Pain level reassessed. 01/10 00:30 Reassessment: Patient appears in no apparent distress at this time. No changes from pf1 previously documented assessment. Patient and/or family updated on plan of care and expected duration. Pain level reassessed. 01:30 Reassessment: Patient appears in no apparent distress at this time. No changes from pf1 previously documented assessment. Patient and/or family updated on plan of care and expected duration. Pain level reassessed. 02:30 Reassessment: Patient appears in no apparent distress at this time. No changes from pf1 previously documented assessment. Patient and/or family updated on plan of care and expected duration. Pain level reassessed. Vital Signs: 01/09 22:39 BP 135 / 89; Pulse 81; Resp 16; Temp 97.1(TE); Pulse Ox 98% on R/A; Weight 42.64 kg cm10 (M); Height 5 ft. 6 in. ; Pain 0/10; 23:00 BP 116 / 98; Pulse 74; Resp 16; Pulse Ox 97% ; pf1 01/10 00:00 BP 134 / 102; Pulse 85; Resp 16; Pulse Ox 97% on R/A; pf1 01:00 BP 133 / 65; Pulse 75; Resp 16; Pulse Ox 95% ; pf1 02:00 BP 157 / 83; Pulse 74; Resp 16; Pulse Ox 94% on R/A; pf1 01/09 22:39 Body Mass Index 15.17 (42.64 kg, 167.64 cm) cm10 01/09 22:39 Pain Scale: Adult cm10 ED Course: 01/08 23:10 No provider procedures requiring assistance completed. Inserted saline lock: 22 gauge pf1 in right forearm, using aseptic technique. Blood collected. 01/09 22:29 Patient arrived in ED. ra3 22:41 Triage completed. cm10 22:42 Aneudy Kovacs MD is Attending Physician. sp4 22:42 Arm band placed on Patient placed in an exam room, on a stretcher, on coke production heater, cm10 on pulse oximetry. 22:43 Patient has correct armband on for positive identification. Placed in gown. Bed in low cm10 position. Call light in reach. Side rails up X2. Adult w/ patient. Provided Education on: ER process and procedures. Client placed on continuous cardiac and pulse oximetry monitoring. NIBP monitoring applied. pvc monitor on. Door closed. Warm blanket given. Pillow given. 23:01 Chest Single View XRAY In Process Unspecified. EDMS 23:02 Missed attempt(s): 22 gauge Bleeding controlled, band aid applied, catheter tip intact. oe 23:10 Initial lab(s) drawn, by ED staff, First set of blood cultures drawn by ED staff, EKG pf1 done, by ED staff, reviewed by Aneudy Kovacs MD. 23:30 Second set of blood cultures drawn. oe 23:42 CT Head Brain wo Cont In Process Unspecified. EDMS 01/10 00:30 Noel cath inserted, using sterile technique, 16 Fr., by me, balloon inflated, to cm10 gravity drainage, urine specimen collected. returned cloudy urine. Patient tolerated well. 00:30 Urine collected: Noel catheter specimen, cloudy, yani colored. pf1 00:36 Urinalysis w/ reflexes Sent. pf1 00:36 Blood Culture Adult (2) Sent. pf1 00:36 Urine collected: Noel catheter specimen, yani colored. oe 02:19 Matthieu Kohler MD is Hospitalizing Provider. sp4 02:42 Patient admitted, IV remains in place. pf1 Administered Medications: 00:20 Drug: Geodon IM 20 mg IM once Route: IM; Site: left vastus lateralis; pf1 01:20 Follow up: Response: No adverse reaction; Marked relief of symptoms pf1 00:30 Drug: Rocephin - Rocephin (cefTRIAXone) IVPB 1 grams IVPB once over 30 mins; (mix in 50 pf1 mL NS) Route: IVPB; Infused Over: 30 mins; Site: right forearm; 01:00 Follow up: Response: No adverse reaction; IV Status: Completed infusion; IV Intake: pf1 502ml 01:00 Drug: NS 0.9% IV 1000 ml IV at 125 ml/hr continuous Route: IV; Rate: 125 ml/hr; Site: pf1 right forearm; 03:03 Follow up: IV Status: Infusion continued upon admission pf1 05:34 Drug: hydrALAZINE IVP 10 mg IVP once Route: IVP; Site: right forearm; pf1 Medication: 01/09 22:42 VIS not applicable for this client. cm10 Intake: 01/10 01:00 IV: 502ml; Total: 502ml. pf1 Outcome: 02:20 Decision to Hospitalize by Provider. sp4 02:42 Admitted to ER Hold. Please see [facility] for further documentation. pf1 02:42 Condition: stable 08:56 Patient left the ED. iw Signatures: Dispatcher [employer] Sonia Glasgow RN RN iw Avtar Rai Pamala, RN RN pf1 Aneudy Kovacs MD MD sp4 Fang Matos, RN RN cm10 Mary Agrawal ra3
--- NOTE | 2024-01-11 02:21 | EDPHYS ---
Physician Documentation [facility] Name: Rosina Odonnell Age: 88 yrs Sex: Female : 1935 Arrival Date: 01/10/2024 Time: 22:26 Bed 18 Private MD: ED Physician Aneudy Kovacs HPI: 01/09 22:44 This 88 yrs old Female presents to ER via Wheelchair with complaints of Altered. sp4 01/10 02:40 This 88-year-old female past medical history- Past Medical History: Significant for sp4 seizure disorder, multiple sclerosis, hypothyroidism, asthma, hypertension, mixed hyperlipidemia, mitral stenosis, diverticulosis, osteoarthritis, anemia, depression, and insomnia presents with worsening confusion and mild agitation started yesterday at afternoon. Historical: - Allergies: 01/09 22:41 Augmentin; cm10 22:41 PENICILLINS; cm10 22:41 Sulfa (Sulfonamide Antibiotics); cm10 - PMHx: 22:41 Asthma; Hypertension; Multiple Sclerosis; Seizure; cm10 - PSHx: 22:41 EGD; GALLBLADDER; hysterectomy; sinus surgery; cm10 - Immunization history:: Adult Immunizations up to date. - Infectious Disease History:: Denies. - Social history:: Smoking status: Patient denies any tobacco usage or history of. - Family history:: not pertinent. ROS: 01/10 02:42 Constitutional: Negative for fever, chills, and weight loss, sp4 All other systems are negative, Exam: 02:42 Constitutional: This is a well developed, well nourished patient who is awake, alert, sp4 and in no acute distress. Frail eldely female, signs of prolonged immobility Head/Face: Normocephalic, atraumatic. Eyes: Pupils equal round and reactive to light, extra-ocular motions intact. Lids and lashes normal. Conjunctiva and sclera are not injected. Cornea within normal limits. Periorbital areas with no swelling, redness, or edema. ENT: Nares patent. No nasal discharge, no septal abnormalities noted. Tympanic membranes are normal and external auditory canals are clear. Oropharynx with no redness, swelling, or masses, exudates, or evidence of obstruction, uvula midline. Mucous membranes moist. Neck: Trachea midline, no thyromegaly or masses palpated, and no cervical lymphadenopathy. Supple, full range of motion without nuchal rigidity, or vertebral point tenderness. Chest/axilla: Normal chest wall appearance and motion. Nontender with no deformity. No lesions are appreciated. Cardiovascular: Regular rate and rhythm with a normal S1 and S2. No gallops, murmurs, or rubs. Normal PMI, no JVD. No pulse deficits. Respiratory: Lungs have equal breath sounds bilaterally, clear to auscultation and percussion. No rales, rhonchi or wheezes noted. No increased work of breathing, no retractions or nasal flaring. Abdomen/GI: Soft, with normal bowel sounds. No distension or tympany. No guarding or rebound. No evidence of tenderness throughout. Back: No spinal tenderness. No costovertebral tenderness. Female : Normal external genitalia. Skin: Warm, dry with normal turgor. Normal color with no rashes, no lesions, and no evidence of cellulitis. MS/ Extremity: Pulses equal, no cyanosis. Neurovascular intact. Full, normal range of motion. Neuro: Awake and alert, GCS 15, oriented to person, place, time, and situation. Cranial nerves II-XII grossly intact. Motor strength 5/5 in all extremities. Sensory grossly intact. Psych: Awake, alert, with orientation to person, positive signs of acute confusion and also mild to moderate agitation as well 05:29 ECG was reviewed by the Attending Physician. 22::47 EKG NST at 75 bpm sp4 Vital Signs: 01/09 22:39 BP 135 / 89; Pulse 81; Resp 16; Temp 97.1(TE); Pulse Ox 98% on R/A; Weight 42.64 kg cm10 (M); Height 5 ft. 6 in. ; Pain 0/10; 23:00 BP 116 / 98; Pulse 74; Resp 16; Pulse Ox 97% ; pf1 01/10 00:00 BP 134 / 102; Pulse 85; Resp 16; Pulse Ox 97% on R/A; pf1 01:00 BP 133 / 65; Pulse 75; Resp 16; Pulse Ox 95% ; pf1 02:00 BP 157 / 83; Pulse 74; Resp 16; Pulse Ox 94% on R/A; pf1 01/09 22:39 Body Mass Index 15.17 (42.64 kg, 167.64 cm) cm10 01/09 22:39 Pain Scale: Adult cm10 MDM: 01/09 22:44 Patient medically screened. 4 01/10 02:15 ED course: CLINICAL HISTORY: AMS COMPARISON: None. TECHNIQUE: CT HEAD WITHOUT IV sp4 CONTRAST on 01/10/2024 10:44 PM CDT This exam was performed according to our departmental dose-optimization program, which includes automated exposure control, adjustment of the mA and/or kV according to patient size and/or use of iterative reconstruction technique. FINDINGS: There is no acute hemorrhage, mass effect or midline shift. Huber-white differentiation is preserved. There is no hydrocephalus. There is no significant volume loss for age. The calvarium is intact. Orbits and globes are unremarkable. The paranasal sinuses are clear. Mastoid air cells are clear. IMPRESSION: No acute intracranial findings. . 02:15 ED course: EXAM: XR Chest, 1 View CLINICAL HISTORY: The patient is 88 years old and is sp4 Female; AMS TECHNIQUE: Frontal view of the chest. COMPARISON: No relevant prior studies available. FINDINGS: Lungs: No acute infiltrate. Pleural space: No pleural effusion or pneumothorax. Heart: No cardiomegaly. Mediastinum: Normal contours. Bones/joints: Left shoulder reverse arthroplasty. Advanced osteoarthritis of the right glenohumeral joint. Fixation plate of the right humerus partially within the [id number]. Other findings: Mild rightward obliquity of the chest. IMPRESSION: 1. No acute findings. 2. Left shoulder reverse arthroplasty. Advanced osteoarthritis of the right glenohumeral joint.. 02:42 Data reviewed: vital signs, nurses notes, EMS record, old medical records, lab test sp4 result(s), radiologic studies. Consideration of Admission/Observation Patient was admitted/placed on observation. Escalation of care including admission/observation considered. Management of patient was discussed with the following: Primary Care Provider: Jose F HAIRSTON . 01/09 22:43 Order name: Blood Culture Adult (2) sp4 01/09 22:43 Order name: CBC with Diff; Complete Time: 02:14 sp4 01/09 22:43 Order name: CMP; Complete Time: 02:14 sp4 01/09 22:43 Order name: Lactate w/ 2H reflex if indic.; Complete Time: 02:14 sp4 01/09 22:43 Order name: Protime (+inr); Complete Time: 02:14 sp4 01/09 22:43 Order name: Ptt, Activated; Complete Time: 02:14 sp4 01/09 22:43 Order name: Urinalysis w/ reflexes; Complete Time: 02:14 sp4 01/09 22:44 Order name: Troponin High Sensitivity; Complete Time: 02:14 sp4 01/09 22:44 Order name: CRP; Complete Time: 02:14 sp4 01/09 22:44 Order name: Procalcitonin; Complete Time: 02:14 sp4 01/09 22:44 Order name: Lipase; Complete Time: 02:14 sp4 01/09 23:05 Order name: Glucose, Ancillary Testing; Complete Time: 23:26 EDMS 01/10 00:55 Order name: Urine Culture EDTN 01/09 22:43 Order name: Chest Single View XRAY sp4 01/09 22:44 Order name: CT Head Brain wo Cont sp4 01/09 22:43 Order name: Accucheck; Complete Time: 23:14 sp4 01/09 22:43 Order name: Cardiac monitoring; Complete Time: 22:48 sp4 01/09 22:43 Order name: Cath; Complete Time: 00:31 sp4 01/09 22:43 Order name: EKG - Nurse/Tech; Complete Time: 22:48 sp4 01/09 22:43 Order name: IV Saline Lock - Large Bore; Complete Time: 23:14 sp4 01/09 22:43 Order name: Labs collected and sent; Complete Time: 00:36 sp4 01/09 22:43 Order name: O2 Per Protocol; Complete Time: 22:49 sp4 01/09 22:43 Order name: O2 Sat Monitoring; Complete Time: 22:49 sp4 01/09 22:43 Order name: Vital Signs; Complete Time: 23:14 sp4 EC:29 Rate is 75 beats/min. Rhythm is regular, Normal Sinus Rhythm. QRS [place] is Normal. DC sp4 interval is normal. QRS interval is normal. QT interval is normal. No Q waves. T waves are Normal. No ST changes noted. Clinical impression: No evidence of ischemia. Interpreted by me. Reviewed by me. Administered Medications: 00:20 Drug: Geodon IM 20 mg IM once Route: IM; Site: left vastus lateralis; pf1 01:20 Follow up: Response: No adverse reaction; Marked relief of symptoms pf1 00:30 Drug: Rocephin - Rocephin (cefTRIAXone) IVPB 1 grams IVPB once over 30 mins; (mix in 50 pf1 mL NS) Route: IVPB; Infused Over: 30 mins; Site: right forearm; 01:00 Follow up: Response: No adverse reaction; IV Status: Completed infusion; IV Intake: pf1 502ml 01:00 Drug: NS 0.9% IV 1000 ml IV at 125 ml/hr continuous Route: IV; Rate: 125 ml/hr; Site: pf1 right forearm; 03:03 Follow up: IV Status: Infusion continued upon admission pf1 05:34 Drug: hydrALAZINE IVP 10 mg IVP once Route: IVP; Site: right forearm; pf1 Disposition Summary: 01/11/24 02:20 Hospitalization Ordered Notes: Hospitalization Status: Inpatient Admission sp4 Provider: Matthieu Kohler sp4 Condition: Stable sp4 Problem: new sp4 Symptoms: have improved sp4 Bed/Room Type: Standard sp4 Location: Telemetry/MedSurg (Inpatient)(01/11/24 07:34) bd Room Assignment: 212(01/11/24 07:34) bd Diagnosis - Acute hypoactive delirium, acute pyelonephritis sp4 Forms: - Medication Reconciliation Form sp4 - SBAR form sp4 - Leadership Thank You Letter sp4 Signatures: Dispatcher [employer] EDMS Aisha Burris Cindy, RN RN cg Dinorah De Guzman RN RN pf1 Aneudy Kovacs MD MD sp4 Fang Matos RN RN cm10 Corrections: (The following items were deleted from the chart) 01/09 22:44 22:44 Chest Single View+RAD.RAD.BRZ ordered. EDMS EDMS 22:44 22:44 Head Brain Wo Cont+CT.RAD.BRZ ordered. EDMS EDMS 01/10 02:42 02:20 Telemetry/MedSurg (Inpatient) sp4 cg 02:42 02:20 sp4 cg 07:34 02:42 [facility] ER HOLD cg bd 07:34 02:42 ERHOLD- cg bd
[2024-01-11] MEDS ORDERED: ZIPRASIDONE MESYLA 20 MG/VIAL IM PRN (03:42)
[2024-01-11] MEDS ORDERED: ONDANSETRON 4 MG/2 ML VIAL IV PRN (03:42)
[2024-01-11] MEDS ORDERED: ALBUTEROL 2.5 MG/3 ML NEB SOL NEB PRN ×2 (03:42→13:32)
[2024-01-11] MEDS: NA CHLORIDE 0.9% 1,000 ML IV SCH ×2 (03:42→10:07)
[2024-01-11] MEDS ORDERED: WATER FOR INJ,STERILE 10 ML IM PRN (03:42)
[2024-01-11] MEDS ORDERED: ZOLPIDEM TARTRATE 5 MG TABLET PO PRN (03:42)
[2024-01-11 04:02] VITALS: BMI 15.1
[2024-01-11] MEDS ORDERED: HYDRALAZINE HCL 20 MG/ML VIAL ONE (05:30)
[2024-01-11] MEDS ORDERED: LORAZEPAM 0.5 MG TABLET PO PRN (07:47)
[2024-01-11] MEDS ORDERED: CEFTRIAXONE 1,000 MG in NA CHLORIDE 0.9% 50 ML IVPB SCH (09:00)
[2024-01-11] MEDS: levETIRAcetam 500 MG TAB PO SCH (10:02)
[2024-01-11] MEDS: MONTELUKAST 10 MG TAB PO SCH (10:02)
[2024-01-11] MEDS: PREGABALIN 150 MG CAP PO SCH (10:02)
[2024-01-11] MEDS: VALSARTAN 160 MG TAB PO SCH (10:03)
[2024-01-11] MEDS: carvediloL 6.25 MG TAB PO SCH (10:03)
[2024-01-11] MEDS: DOCUSATE NA/SENNA CONC 1 TAB PO SCH (10:04)
[2024-01-11] MEDS: CEFTRIAXONE 1,000 MG in NA CHLORIDE 0.9% 50 ML IVPB SCH (10:05)
[2024-01-11] MEDS: DULERA 100/5 (MOMETASONE/FORMOTEROL) INHALER IH SCH (12:05)
--- NOTE | 2024-01-11 12:19 | RAD REPORT ---
EXAM DESCRIPTION: CT HEAD WITHOUT IV CONTRAST CLINICAL HISTORY: AMS COMPARISON: None. TECHNIQUE: CT HEAD WITHOUT IV CONTRAST on 01/10/2024 10:44 PM CDT This exam was performed according to our departmental dose-optimization program, which includes autom ated exposure control, adjustment of the mA and/or kV according to patient size and/or use of iterati ve reconstruction technique. FINDINGS: There is no acute hemorrhage, mass effect or midline shift. Huber-white differentiation is preserved. There is no hydrocephalus. There is no significant volume loss for age. The calvarium is intact. Orbits and globes are unremarkable. The paranasal sinuses are clear. Mastoid air cells are clear. IMPRESSION: No acute intracranial findings. Electronically signed by: Luis Srivastava MD 01/11/2024 12:09 AM CDT Due to temporary technical issues with the PACS/Fluency reporting system, reports are being signed by the in house radiologist without review as a courtesy to ensure prompt reporting. The interpreting r adiologist is fully responsible for the content of the report.
--- NOTE | 2024-01-11 12:56 | EKG ---
Test Date: 2024-01-10 Test Time: 22:47:12 Hard Candy Spinner: EVIE MEASUREMENT RESULTS: Intervals: Rate: 75 [place]: 166 QRSD: 88 QT: 408 QTc: 455 [place]: P: 69 [place]: 166 QRS: 8 T: 79 INTERPRETIVE STATEMENTS: Normal sinus rhythm with sinus arrhythmia Possible Lateral infarct, age undetermined Possible Inferior infarct, age undetermined Abnormal ECG Compared to ECG 12/21/2023 21:05:14 Myocardial infarct finding now present Electronically Signed On 01-11-24 12:54:40 CDT by Jeremy Neely
--- NOTE | 2024-01-11 12:56 | RAD REPORT ---
EXAM DESCRIPTION: XR Chest, 1 View CLINICAL HISTORY: The patient is 88 years old and is Female; AMS TECHNIQUE: Frontal view of the chest. COMPARISON: No relevant prior studies available. FINDINGS: Lungs: No acute infiltrate. Pleural space: No pleural effusion or pneumothorax. Heart: No cardiomegaly. Mediastinum: Normal contours. Bones/joints: Left shoulder reverse arthroplasty. Advanced osteoarthritis of the right glenohumer al joint. Fixation plate of the right humerus partially within the [id number]. Other findings: Mild rightward obliquity of the chest. IMPRESSION: 1. No acute findings. 2. Left shoulder reverse arthroplasty. Advanced osteoarthritis of the right glenohumeral joint. Electronically signed by: Tete Salas MD 01/10/2024 11:10 PM CDT Due to temporary technical issues with the PACS/Fluency reporting system, reports are being signed by the in house radiologist without review as a courtesy to ensure prompt reporting. The interpreting r adiologist is fully responsible for the content of the report.
[2024-01-11] MEDS: MIRTAZAPINE 15 MG TAB PO SCH (21:06)
[2024-01-11] MEDS: TRAZODONE 50 MG TABLET PO SCH (21:06)
[2024-01-11] MEDS: ENSURE ENLIVE 237 ML CAN PO SCH (21:07)
[2024-01-11] MEDS: methocarbamoL 500 MG TAB PO PRN (23:05)
[2024-01-12] MEDS: ACETAMINOPHEN 325 MG TABLET PO PRN (05:39)
[2024-01-12] MEDS: LEVOTHYROXINE SOD 0.05 MG TABLET PO SCH (05:40)
--- NOTE | 2024-01-12 06:21 | HP ---
Date of Admission: 01/11/2024 Chief Complaint: Confusion. History Of Present Illness: This is an 88-year-old female patient with history of urinary tract infection from time to time, recently was in hospital emergency room about 2 weeks ago for UTI and she finished taking her antibiotic as prescribed from emergency room. She comes back with this problem of altered mental status and after she was evaluated in the ER, she was admitted to the hospital with urinary tract infection and altered mental status due to urinary tract infection. When I saw her, she was in the emergency room this morning. She was lying in bed, appearing weaker than normal, not in any distress. Denies any abdominal pain, nausea, vomiting. Allergies: TO SULFA CAUSING ITCHING AND AUGMENTIN CAUSING ITCHING. Medications: List reviewed. Review of Systems: LACROSSE COACH: As mentioned above. Genitourinary: As mentioned above. All other systems reviewed and negative. Social History: Negative for smoking and alcohol use. Past Medical History: Significant for insomnia, hypertension, asthma, osteoarthritis at multiple sites, diverticulosis, gastroesophageal reflux disease, history of recurrent urinary tract infections, edema, hypothyroidism, hyperlipidemia, rosacea, multiple sclerosis. Past Surgical History: Significant for sinus surgery, removal of benign breast tumor, hysterectomy, shoulder surgery, and toe surgery. Family History: Father had subdural hematoma. Mother had hypertension. Physical Examination: Vital Signs: Temperature 97.9, pulse 73, respiratory rate 16, blood pressure 171/80, oxygen saturation 94% on room air. Height 5 feet 6 inches, weight 94 pounds. General: The patient is lying in bed, not in any distress, but appears weaker than normal. HEENT: Head atraumatic, normocephalic. Conjunctivae nonerythematous. Sclerae white. Mouth, no thrush or edema noted. Ears/Nose, no mass, lesion, discharge noted. Neck: Supple. No JVD, lymph nodes, bruit, thyromegaly noted. Lungs: Bilateral good equal air entry. Clear to auscultation. No rhonchi. No rales. Heart: Normal heart sounds, no murmur or gallop. Abdomen: Soft, bowel sounds normal. No guarding, rigidity, tenderness, mass, hepatosplenomegaly, distention, or bruit noted. Extremities: No leg edema. No calf tenderness. Skin: No rash, ulcer, cellulitis. Lymphatics: No lymph node enlargement in neck, supraclavicular, infraclavicular region. Neuro: No focal neurological deficit. Chest: Unremarkable. External Genitalia: Deferred. Rectal: Deferred. Laboratory Data: Urinalysis, leukocyte esterase 500, rbc 11 to 20, wbc more than 50, bacteria more than 50. Sodium 140, potassium 4.2, chloride 111, bicarb 27, BUN 20, creatinine 1.02, glucose 150. Lactic acid 2. Liver function tests unremarkable. C-reactive protein 13. Procalcitonin less than 0.05. Impression: 1. Urinary tract infection. 2. Toxic encephalopathy. 3. Hypertension. 4. Mixed hyperlipidemia. 5. Hypothyroidism. 6. Gastroesophageal reflux disease. 7. Diverticulosis. 8. Osteoarthritis, multiple sites. 9. Anemia, chronic, unspecified. Plan: We will go ahead and admit the patient to hospital for further evaluation and management of this problem. The patient is appropriate for inpatient and is expected to spend 2 midnights in hospital. Urine culture and blood culture were done in the emergency room. We will follow up on results. Continue IV fluid, but reduce the rate from 100 cc/hour down to 50 cc/hour and we need to avoid any fluid overload type of problem. So far, there is no sign of any fluid overload. We will go ahead and continue antibiotic which is ceftriaxone 1 g IV every 12 hours and once we have culture result available, then we will decide about culture specific antibiotic. Consult Physical Therapy to help ambulate the patient. DVT prophylaxis was ordered using SCD and for hypertension, we will continue her antihypertensive medication per order. She received 1 dose of hydralazine in the emergency room, but I have ordered her home medications to be continued for blood pressure control. For her hypothyroidism, we will continue her levothyroxine per order. No need for further intervention. For her gastroesophageal reflux disease, we will continue her proton pump inhibitor as per order. I will see her tomorrow for followup. Details of plan of treatment discussed with her. Total time spent 75 minutes that included talking to ER physician, reviewing ER visit record, review of last six months of office record, current admission evaluation and management. ANH/RIGO Voice ID: [id number] [email or web address]
[2024-01-12] MEDS: HYDROCODONE/APAP 5/325 MG TAB PO SCH (09:10)
--- NOTE | 2024-01-13 02:00 | PN ---
Date of Progress Note: 01/12/2024 Subjective: The patient was seen this morning for followup. No new complaints or problems reported by the patient. She is looking much better this morning compared to yesterday. Denies any complaint s this morning. Objective: Vital Signs: Reviewed. HEENT: Unremarkable. Lungs: Clear to auscultation. Heart: Sounds normal. Abdomen: Soft. Bowel sounds normal. No guarding, rigidity, tenderness, distention. Extremities: No leg edema. Laboratory Data: Urine culture is growing some gram-negative rods. Definite identification and sens itivity pending. Blood culture remains negative. Impression: 1.Urinary tract infection. 2.Encephalopathy, toxic. 3.Hypertension. 4.Osteoarthritis, multiple sites. Plan: The patient takes oxycodone at home. She does not know the dose, so what we will do is we gladys peterson just start her on hydrocodone 5 mg 2 times a day for her pain control. We will continue current an tibiotic ceftriaxone. Urine culture result hopefully should be ready by tomorrow and in that case, cierra hyman will decide about possible discharge tomorrow with culture specific antibiotic. Continue current antihypertensive medication. Remove Noel catheter and discontinue IV fluid. Ambulation was encoura gecristy. ANH/MODL Voice ID: [id number] Report ID: [id number]
[2024-01-13 09:44] VITALS: BP 155/77; O2SAT 94
[2024-01-13 10:23] VITALS: TEMP 98.3
--- NOTE | 2024-01-13 22:59 | DS ---
Date of Discharge: 01/13/2024 Disposition: Discharged to go home. Physical Examination: HEENT: Unremarkable. Lungs: Clear to auscultation. Heart: Sounds normal. Abdomen: Soft. Bowel sounds normal. No guarding, rigidity, tenderness, distention. Extremities: No leg edema. Laboratory Data: Urine culture grew E. coli. WBC upon admission was 9.2, hemoglobin 12.2, platelets 234. Sodium 140, potassium 4.2, chloride 111, bicarb 27, BUN 20, creatinine 1.02, glucose 150. Liver function tests unremarkable. Lactic acid 2. Procalcitonin less than 0.05. Hospital Course: This is an 88-year-old very pleasant female patient, who was admitted to the hospital with weakness and confusion. Please see dictated H and P for more information. After the patient was evaluated in the ER, she was admitted to the hospital under my service with urinary tract infection and encephalopathy. Overall, her condition improved. Initially, she was given IV fluid and IV antibiotic ceftriaxone was started. Urine culture was done and blood culture was also done. She started responding very well once we started IV fluid and IV antibiotics and as of yesterday, we discontinued her IV fluid, remote Noel catheter, and she did ambulate very well with physical therapy. Today, when I saw her this morning, she is back to her normal self and has good appetite. Denies any other complaints. Urine culture came back growing E. coli and it is sensitive to every antibiotic that it was tested for. Her confusion problem has resolved. Generalized weakness has improved. She was advised to continue all her prior home medications upon discharge. Discharge Diagnoses: 1. Urinary tract infection, organism E. coli. 2. Toxic encephalopathy. 3. Hypertension. 4. Mixed hyperlipidemia. 5. Hypothyroidism. 6. Gastroesophageal reflux disease. 7. Diverticulosis. 8. Osteoarthritis, multiple sites. 9. Anemia, chronic, unspecified. Discharge Medications And Instructions: 1. Continue all prior home medications. 2. Levaquin 500 mg daily for 1 week and prescription was sent to her pharmacy from office. 3. Follow up at my office next week. Total time spent 25 minutes. ANH/MODL Voice ID: [id number] Report ID: [id number] JOSE
== END 2024-01-13 12:59 | disposition home or self-care (01) | DRG 689 ==
LOC: ER 22:26 → ERHOLD 01-11 02:31 → 2ND 01-11 08:08
PROVIDERS: ADMIT Internal Medicine; ATTEND Internal Medicine
PROC: 0T9B70Z Drainage of Bladder with Drainage Device, Via Natural or Artificial Opening (ICD-10-PCS; principal; 2024-01-12)
DX: N10 Acute pyelonephritis (principal); G92.9 Unspecified toxic encephalopathy; E44.1 Mild protein-calorie malnutrition; Z68.1 Body mass index [BMI] 19.9 or less, adult; F05 Delirium due to known physiological condition; I10 Essential (primary) hypertension; E03.9 Hypothyroidism, unspecified; E78.2 Mixed hyperlipidemia; D64.9 Anemia, unspecified; K21.9 Gastro-esophageal reflux disease without esophagitis; M19.09 Primary osteoarthritis, other specified site; K57.90 Diverticulosis of intestine, part unspecified, without perforation or abscess without bleeding; B96.20 Unspecified Escherichia coli [E. coli] as the cause of diseases classified elsewhere; Z88.0 Allergy status to penicillin; Z88.2 Allergy status to sulfonamides; Z88.1 Allergy status to other antibiotic agents; Z90.710 Acquired absence of both cervix and uterus
CPT/HCPCS: 36415; 51702; 70450; 71045; 80053; 81001; 82947; 83605; 83690; 84145; 84484; 85025; 85610; 85730; 86140; 87040; 87077; 87086; 87088; 87186; 93005; 96361; 96365; 96372; 96375; 97116; 97161; 97530; 99285; J0360; J0696; J3486; J3535; J7030

== ENCOUNTER 2024-05-25 17:30 | Emergency (ER) | payer OTHER ==
[2024-05-25] MEDS ORDERED: MORPHINE 2 MG/ML SYR ONE (19:58)
[2024-05-25] MEDS ORDERED: ONDANSETRON 4 MG/2 ML VIAL ONE (19:58)
[2024-05-25] MEDS ORDERED: FAMOTIDINE 20 MG/2 ML VIAL IV ONE (19:59)
[2024-05-25] MEDS ORDERED: NA CHLORIDE 0.9% 1,000 ML ONE (19:59)
[2024-05-25 20:33] LABS: Absolute Basophils 0.1 K/uL (0-0.5); Absolute Eosinophils 0.3 K/uL (0-0.5); Absolute Lymphocytes (CBC) 2.3 K/uL (0.7-4.9); Absolute Monocytes 0.6 K/uL (0.1-1.3); Absolute Neutrophil 4.1 K/uL (1.8-8.0); Basophils % 1.1 % (0-1.3); Eosinophils % 4.5 % (0-4.4); Hematocrit 33.8 % (36.0-45.0); Hemoglobin 11.3 g/dL (12.0-15.0); Lymphocytes % 30.9 % (15.3-44.8); MCH 31.9 pg (27.0-35.0); MCHC 33.5 g/dL (32.0-36.0); MCV 95.2 fL (80-100); MPV 7.2 fL (7.6-11.3); Monocytes % 8.4 % (3.3-12.3); Neutrophils % 55.1 % (41.7-73.7); Nucleated Red Blood Cells % 0.1 % (0-0); Platelets 264 thou/uL (152-406); RBC Red Blood Cell Count 3.55 M/uL (3.86-4.86); Red Cell Distribution Width 13.1 % (12.1-15.2)
[2024-05-25 20:46] LABS: AST/SGOT 11 U/L (15-37); Albumin 3.1 g/dL (3.4-5.0); Albumin/Globulin Ratio 0.9 (1.1-1.8); Alkaline Phosphatase 91 U/L (45-117); Anion Gap 8.8 mEq/L (5.0-15.0); BUN Blood Urea Nitrogen 26 mg/dL (7-18); Bicarbonate 31 mEq/L (21-32); Bilirubin Total 0.3 mg/dL (0.2-1.0); Globulin 3.6 g/dL (2.3-3.5); Glomerular Filtration Rate 61 ml/min (=/>90); Glucose Level 114 mg/dL (74-106); Lipase 29 U/L (13-75); Potassium 3.8 mEq/L (3.5-5.1); Protein, Total 6.7 g/dL (6.4-8.2); Sodium Level 143 mEq/L (136-145)
[2024-05-25 20:47] LABS: ALT/SGPT < 14 U/L (13-56)
--- NOTE | 2024-05-25 21:53 | RAD REPORT ---
EXAM DESCRIPTION: CT - Abdomen Pelvis W Contrast - 05/25/2024 9:32 pm CLINICAL HISTORY: Abdominal pain COMPARISON: 2022 TECHNIQUE: Computed axial tomography of the abdomen pelvis was obtained. 100 cc Isovue-300 was admin istered intravenously. Oral contrast was not requested which limits evaluation of bowel and appendix All CT scans are performed using dose optimization technique as appropriate and may include automated exposure control or mA/KV adjustment according to patient size. FINDINGS: Cholecystectomy The liver, spleen, pancreas, adrenal and kidneys appear unremarkable. There is no evidence of diverticulitis. Large amount stool throughout the colon. Hysterectomy. No adnexal mass. Atherosclerosis. mild chronic anterior subluxation L3 on L4 and L4 on L5 IMPRESSION: Large amount stool throughout the colon
[2024-05-25 22:03] LABS: Specific Gravity > 1.030 (1.005-1.030); Sqamous Epithelial <5 /HPF (None Seen); Urine Bacteria None Seen /HPF (<20); Urine Bilirubin NEGATIVE (Negative); Urine Blood Negative (Negative); Urine Clarity Clear (Clear); Urine Color Light-Yellow (Yellow); Urine Crystals Unidentified Few /HPF (None Seen); Urine Culture Reflex Order NOT NEEDED; Urine Glucose NEGATIVE (Negative); Urine Ketones NEGATIVE (Negative); Urine Microscopic Reflex YN ORDER UMIC; Urine Mucus Slight /HPF (None Seen); Urine Nitrite NEGATIVE (Negative); Urine Protein TRACE (Negative); Urine RBC <5 /HPF (None Seen); Urine Urobilinogen Normal (Normal); Urine WBC <5 /HPF (<5); Urine pH 5.5 (5.0-7.0)
--- NOTE | 2024-05-25 23:39 | EDPHYS ---
Physician Documentation [facility] Name: Rosina Odonnell Age: 89 yrs Sex: Female : 1935 Arrival Date: 05/25/2024 Time: 17:30 Bed 7 Private MD: ED Physician Aneudy Kovacs HPI: 05/25 20:24 This 89 yrs old Female presents to ER via Wheelchair with complaints of sent by [facility] PCP:Stomach pain. 20:24 The patient presents with abdominal pain in the lower abdomen, abdominal distention in [facility] the upper abdomen, in the lower abdomen. Onset: The symptoms/episode began/occurred 2 day(s) ago. The symptoms. Associated signs and symptoms: none. The symptoms are described as crampy. Modifying factors: The symptoms are alleviated by nothing, the symptoms are aggravated by nothing. Severity of pain: At its worst the pain was moderate in the emergency department the pain has improved mildly. The patient has experienced similar episodes in the past, several times. Historical: - Allergies: 18:17 Augmentin; iw 18:17 PENICILLINS; iw 18:17 Sulfa (Sulfonamide Antibiotics); iw - PMHx: 18:17 Hypertension; Asthma; Multiple Sclerosis; Seizure; iw - PSHx: 18:17 EGD; GALLBLADDER; hysterectomy; sinus surgery; iw - Immunization history:: Adult Immunizations up to date. - Infectious Disease History:: Denies. - Social history:: Smoking status: . - Family history:: not pertinent. ROS: 20:24 Constitutional: Negative for fever, chills, and weight loss, Eyes: Negative for injury, ervin pain, redness, and discharge, ENT: Negative for injury, pain, and discharge, Neck: Negative for injury, pain, and swelling, Cardiovascular: Negative for chest pain, palpitations, and edema, Respiratory: Negative for shortness of breath, cough, wheezing, and pleuritic chest pain, Back: Negative for injury and pain, : Negative for injury, bleeding, discharge, and swelling, MS/Extremity: Negative for injury and deformity, Skin: Negative for injury, rash, and discoloration, Neuro: Negative for headache, weakness, numbness, tingling, and seizure, Psych: Negative for depression, anxiety, suicide ideation, homicidal ideation, and hallucinations, Allergy/Immunology: Negative for hives, rash, and allergies, Endocrine: Negative for neck swelling, polydipsia, polyuria, polyphagia, and marked weight changes, Hematologic/Lymphatic: Negative for swollen nodes, abnormal bleeding, and unusual bruising, 20:24 Abdomen/GI: Positive for abdominal pain, of the right lower quadrant and left lower quadrant, Exam: 20:24 Constitutional: This is a well developed, well nourished patient who is awake, alert, ervin and in no acute distress. Head/Face: Normocephalic, atraumatic. Eyes: Pupils equal round and reactive to light, extra-ocular motions intact. Lids and lashes normal. Conjunctiva and sclera are non-icteric and not injected. Cornea within normal limits. Periorbital areas with no swelling, redness, or edema. ENT: Nares patent. No nasal discharge, no septal abnormalities noted. Tympanic membranes are normal and external auditory canals are clear. Oropharynx with no redness, swelling, or masses, exudates, or evidence of obstruction, uvula midline. Mucous membranes moist. Neck: Trachea midline, no thyromegaly or masses palpated, and no cervical lymphadenopathy. Supple, full range of motion without nuchal rigidity, or vertebral point tenderness. No Meningismus. Chest/axilla: Normal chest wall appearance and motion. Nontender with no deformity. No lesions are appreciated. Cardiovascular: Regular rate and rhythm with a normal S1 and S2. No gallops, murmurs, or rubs. Normal PMI, no JVD. No pulse deficits. Respiratory: Lungs have equal breath sounds bilaterally, clear to auscultation and percussion. No rales, rhonchi or wheezes noted. No increased work of breathing, no retractions or nasal flaring. Back: No spinal tenderness. No costovertebral tenderness. Full range of motion. Female : Normal external genitalia. Skin: Warm, dry with normal turgor. Normal color with no rashes, no lesions, and no evidence of cellulitis. MS/ Extremity: Pulses equal, no cyanosis. Neurovascular intact. Full, normal range of motion. Neuro: Awake and alert, GCS 15, oriented to person, place, time, and situation. Cranial nerves II-XII grossly intact. Motor strength 5/5 in all extremities. Sensory grossly intact. Cerebellar exam normal. Normal gait. Psych: Awake, alert, with orientation to person, place and time. Behavior, mood, and affect are within normal limits. 20:24 ECG was reviewed by the Attending Physician. Vital Signs: 18:16 BP 127 / 83; Pulse 74; Resp 16; Temp 97.4; Pulse Ox 98% on R/A; Weight 41.28 kg; Height iw 5 ft. 5 in. ; Pain 9/10; 20:25 BP 143 / 80; Pulse 89; Resp 18; Temp 97.4; Pulse Ox 93% ; Pain 8/10; bm8 21:15 BP 124 / 82; Pulse 73; Resp 17 S; Pulse Ox 98% on R/A; ha1 21:54 BP 140 / 71; Pulse 68; Resp 18; Pulse Ox 96% on R/A; kj2 22:45 BP 142 / 77; Pulse 70; Resp 20; Temp 97.4; Pulse Ox 96% ; Pain 7/10; bm8 23:55 BP 150 / 74; Pulse 75; Resp 17; Temp 97.4; Pulse Ox 96% ; Pain 0/10; bm8 18:16 Body Mass Index 15.14 (41.28 kg, 165.1 cm) iw 18:16 Pain Scale: Adult iw 20:25 Pain Scale: Adult bm8 22:45 Pain Scale: Adult bm8 23:55 Pain Scale: Adult bm8 [place] Coma Score: 20:25 Eye Response: spontaneous(4). Motor Response: obeys commands(6). Verbal Response: bm8 oriented(5). Total: 15. 22:45 Eye Response: spontaneous(4). Motor Response: obeys commands(6). Verbal Response: bm8 oriented(5). Total: 15. MDM: 18:19 Patient medically screened. kb 18:35 Patient medically screened. ervin 20:26 Differential diagnosis: diverticulitis, gastritis, Mesenteric ischemia or infarction, ervin non-specific abd pain, pancreatitis, Peptic Ulcer Disease, Perf. Duodenal Ulcer, Perf. Gastric Ulcer, Peritonitis, urinary tract infection. Data reviewed: vital signs, nurses notes, lab test result(s), EKG, radiologic studies, CT scan, plain films. Consideration of Admission/Observation Escalation of care including admission/observation considered. I considered the following discharge prescriptions or medication management in the emergency department Medications were administered in the Emergency Department. See MAR. Independent interpretation of the following test(s) in the Emergency Department EKG: See my EKG interpretation above. Test considered but Not performed: MRI: no mrcp. Historians other than the Patient: pt well in formed. Care significantly affected by the following chronic conditions: Hypertension, ms, seizures. 23:38 ED course: EXAM DESCRIPTION: CT - Abdomen Pelvis W Contrast - 05/25/2024 9:32 pm sp4 CLINICAL HISTORY: Abdominal pain COMPARISON: 2022 TECHNIQUE: Computed axial tomography of the abdomen pelvis was obtained. 100 cc Isovue-300 was administered intravenously. Oral contrast was not requested which limits evaluation of bowel and appendix All CT scans are performed using dose optimization technique as appropriate and may include automated exposure control or mA/KV adjustment according to patient size. FINDINGS: Cholecystectomy The liver, spleen, pancreas, adrenal and kidneys appear unremarkable. There is no evidence of diverticulitis. Large amount stool throughout the colon. Hysterectomy. No adnexal mass. Atherosclerosis. mild chronic anterior subluxation L3 on L4 and L4 on L5 IMPRESSION: Large amount stool throughout the colon. 05/25 18:35 Order name: CBC with Diff; Complete Time: 23:30 [facility] 05/25 18:35 Order name: CMP; Complete Time: 23:30 [facility] 05/25 18:35 Order name: Lipase; Complete Time: 23:30 [facility] 05/25 18:35 Order name: Urinalysis w/ reflexes; Complete Time: 23:30 [facility] 05/25 18:35 Order name: CT Abd/Pelvis - IV Contrast Only; Complete Time: 23:30 [facility] 05/25 18:35 Order name: IV Saline Lock; Complete Time: 20:24 [facility] 05/25 18:35 Order name: Labs collected and sent; Complete Time: 20:24 [facility] 05/25 18:35 Order name: EKG - Nurse/Tech; Complete Time: 20:24 [facility] EC:24 Rate is 74 beats/min. Rhythm is regular. QRS [place] is Normal. [place] interval is normal. QRS ervin interval is normal. QT interval is normal. No Q waves. T waves are Normal. No ST changes noted. Clinical impression: NSR w/ Non-specific ST/T Changes and No evidence of ischemia. Interpreted by me. Reviewed by me. Administered Medications: 20:24 Drug: Famotidine IVP 20 mg IVP once; dilute with 10 mL 0.9% NaCl; give over 2 minutes bm8 Route: IVP; Site: right forearm; 22:06 Follow up: Response: No adverse reaction bm8 20:24 Drug: Ondansetron IVP 4 mg IVP once; over 2 minutes Route: IVP; Site: right forearm; bm8 22:06 Follow up: Response: No adverse reaction bm8 20:24 Drug: NS 0.9% IV 1000 ml IV at 125 ml/hr continuous Route: IV; Rate: 125 ml/hr; Site: bm8 right forearm; 23:57 Follow up: Response: No adverse reaction; IV Status: Completed infusion; IV Intake: bm8 400ml 20:24 Drug: morphine IVP or IV 2 mg IVP once over 4 mins Route: IVP; Infused Over: 4 mins; bm8 Site: right forearm; 22:05 Follow up: Response: No adverse reaction bm8 20:24 Drug: Ondansetron IVP 4 mg IVP once; over 2 minutes Route: IVP; Site: right forearm; bm8 22:05 Follow up: Response: No adverse reaction bm8 Disposition Summary: 05/25/24 23:38 Discharge Ordered Notes: Location: Home sp4 Problem: new sp4 Symptoms: have improved sp4 Condition: Stable sp4 Diagnosis - Constipation, unspecified sp4 - Diffuse abdominal pain sp4 Followup: sp4 - With: Matthieu Kohler MD - When: 7 - 10 days - Reason: Recheck today's complaints Discharge Instructions: - Discharge Summary Sheet sp4 - Constipation, Adult, Joyd-ye-Kyfg sp4 Forms: - Patient Portal Instructions sp4 Prescriptions: - Tramadol 50 mg Oral Tablet - take 1 tablet ORAL route every 8 hours as needed; 12 tablet; Refills: 0, sp4 Product Selection Permitted - dicyclomine 20 mg Oral tablet - take 2 tablets ORAL route every 12 hours PRN; 30 tablet; Refills: 0, Product sp4 Selection Permitted Signatures: Dispatcher [employer] Shalini Lao, KAT-Digna YINP-Yusef Pitts MD MD cha Williams, Irene, RN RN iw Aneudy Kovacs MD MD sp4 Helio Prado RN RN bm8 Corrections: (The following items were deleted from the chart) 18:36 18:35 CBC+H.LAB.BRZ ordered. EDMS EDMS 18:36 18:35 COMPREHENSIVE METABOLIC PANEL+C.LAB.BRZ ordered. EDMS EDMS 18:36 18:35 LIPASE+C.LAB.BRZ ordered. EDMS EDMS 18:36 18:35 Urinalysis+U.LAB.BRZ ordered. EDMS EDMS 18:36 18:36 Abdomen Pelvis W Con+CT.RAD.BRZ ordered. EDMS EDMS
--- NOTE | 2024-05-25 23:39 | ER ---
Nurse's Notes [facility] Name: Rosina Odonnell Age: 89 yrs Sex: Female : 1935 Arrival Date: 05/25/2024 Time: 17:30 Bed 7 Private MD: Diagnosis: Constipation, unspecified;Diffuse abdominal pain Presentation: 05/25 18:16 Chief complaint: Patient states: dr spears said i have diverticulitis , c/o abd pain X 2 iw days, denies n/v/d. Coronavirus screen: At this time, the client does not indicate any symptoms associated with coronavirus-19. Ebola Screen: No symptoms or risks identified at this time. Initial Sepsis Screen: Does the patient meet any 2 criteria? No. Patient's initial sepsis screen is negative. Does the patient have a suspected source of infection? No. Patient's initial sepsis screen is negative. Risk Assessment: Do you want to hurt yourself or someone else? Patient reports no desire to harm self or others. Onset of symptoms was May 23, 2024. 18:16 Method Of Arrival: Wheelchair iw 18:16 Acuity: [place] 3 iw Historical: - Allergies: 18:17 Augmentin; iw 18:17 PENICILLINS; iw 18:17 Sulfa (Sulfonamide Antibiotics); iw - PMHx: 18:17 Hypertension; Asthma; Multiple Sclerosis; Seizure; iw - PSHx: 18:17 EGD; GALLBLADDER; hysterectomy; sinus surgery; iw - Immunization history:: Adult Immunizations up to date. - Infectious Disease History:: Denies. - Social history:: Smoking status: . - Family history:: not pertinent. Screenin:25 [facility] ED Fall Risk Assessment (Adult) History of falling in the last 3 months, bm8 including since admission Yes- fall prone (multiple falls) (3 pts) Confusion or Disorientation No (0 pts) Intoxicated or Sedated No (0 pts) Impaired Gait Yes (1 pt) Mobility Assist Device Used Yes (1 pt) Altered Elimination Yes (1 pt) Score/Fall Risk Level 3 or more points = High Risk Oriented to surroundings, Maintained a safe environment, Educated pt \T\ family on fall prevention, incl call for assistance when getting out of bed, Assessed \T\ reinforced patient's understanding of fall precautions, Hourly rounding (assess needs \T\ fall precautionary measures) done, Used ambulatory aids as needed (educated on \T\ assisted with), Used gait belt as appropriate Implemented a Fall Risk Plan of Care. Abuse screen: Denies threats or abuse. Nutritional screening: No deficits noted. Tuberculosis screening: No symptoms or risk factors identified. Assessment: 20:25 General: Appears in no apparent distress. comfortable, Behavior is calm, cooperative, bm8 appropriate for age. Pain: Complains of pain in left lower quadrant and right lower quadrant Pain does not radiate. Pain currently is 8 out of 10 on a pain scale. Quality of pain is described as aching, sharp. Neuro: No deficits noted. Level of Consciousness is awake, alert, obeys commands, Oriented to person, place, time, situation, Appropriate for age. Cardiovascular: Denies chest pain, Capillary refill < 3 seconds in bilateral fingers Patient's skin is warm and dry. Respiratory: Airway is patent Respiratory effort is even, unlabored, Respiratory pattern is regular, symmetrical. GI: Abdomen is round distended, Abdomen is tender to palpation in right lower quadrant and left lower quadrant Reports lower abdominal pain. : No signs and/or symptoms were reported regarding the genitourinary system. EENT: No signs and/or symptoms were reported regarding the EENT system. Derm: No signs and/or symptoms reported regarding the dermatologic system. Musculoskeletal: No signs and/or symptoms reported regarding the musculoskeletal system. 21:30 Reassessment: Patient and/or family updated on plan of care and expected duration. Pain ha1 level reassessed. Patient is alert, oriented x 3, equal unlabored respirations, skin warm/dry/pink. 22:45 Reassessment: Patient appears in no apparent distress at this time. Patient and/or bm8 family updated on plan of care and expected duration. Pain level reassessed. Patient is alert, oriented x 3, equal unlabored respirations, skin warm/dry/pink. Patient states feeling better. Patient states symptoms have improved. GI: Reports lower abdominal pain. 22:45 Pain: Pain currently is 7 out of 10 on a pain scale. bm8 23:55 Reassessment: Patient appears in no apparent distress at this time. Patient and/or bm8 family updated on plan of care and expected duration. Pain level reassessed. Patient is alert, oriented x 3, equal unlabored respirations, skin warm/dry/pink. Patient denies pain at this time. Patient states feeling better. Patient states symptoms have improved. Vital Signs: 18:16 BP 127 / 83; Pulse 74; Resp 16; Temp 97.4; Pulse Ox 98% on R/A; Weight 41.28 kg; Height iw 5 ft. 5 in. ; Pain 9/10; 20:25 BP 143 / 80; Pulse 89; Resp 18; Temp 97.4; Pulse Ox 93% ; Pain 8/10; bm8 21:15 BP 124 / 82; Pulse 73; Resp 17 S; Pulse Ox 98% on R/A; ha1 21:54 BP 140 / 71; Pulse 68; Resp 18; Pulse Ox 96% on R/A; kj2 22:45 BP 142 / 77; Pulse 70; Resp 20; Temp 97.4; Pulse Ox 96% ; Pain 7/10; bm8 23:55 BP 150 / 74; Pulse 75; Resp 17; Temp 97.4; Pulse Ox 96% ; Pain 0/10; bm8 18:16 Body Mass Index 15.14 (41.28 kg, 165.1 cm) iw 18:16 Pain Scale: Adult iw 20:25 Pain Scale: Adult bm8 22:45 Pain Scale: Adult bm8 23:55 Pain Scale: Adult bm8 [place] Coma Score: 20:25 Eye Response: spontaneous(4). Motor Response: obeys commands(6). Verbal Response: bm8 oriented(5). Total: 15. 22:45 Eye Response: spontaneous(4). Motor Response: obeys commands(6). Verbal Response: bm8 oriented(5). Total: 15. ED Course: 17:38 Patient arrived in ED. ra3 18:17 Triage completed. iw 18:18 Arm band placed on. iw 18:19 Shalini Rain [facility]C [facility] kb 18:19 Yusef Echavarria MD is Attending Physician. kb 18:33 Yusef Echavarria MD is Attending Physician. ervin 19:55 Helio Prado, RN is Primary Nurse. bm8 20:25 Patient has correct armband on for positive identification. Placed in gown. Bed in low bm8 position. Call light in reach. Side rails up X 1. Client placed on continuous cardiac and pulse oximetry monitoring. NIBP monitoring applied. Pulse ox on. NIBP on. Door closed. Noise minimized. Warm blanket given. Pillow given. Verbal reassurance given. Head of bed elevated. 20:25 No provider procedures requiring assistance completed. Initial lab(s) drawn, by , abhinav sent to lab. EKG done, by ED staff, reviewed by Yusef Echavarria MD. Inserted saline lock: 22 gauge in right forearm, using aseptic technique. Blood collected. Flushed with 10 mL NS. Patient maintains SpO2 saturation greater than 95% on room air. 21:34 CT Abd/Pelvis - IV Contrast Only In Process Unspecified. EDMS 23:30 Attending Physician role handed off by Yusef Echavarria MD sp4 23:30 Aneudy Kovacs MD is Attending Physician. sp4 23:38 Matthieu Spears MD is Referral Physician. sp4 23:55 Provided Education on: post er care. bm8 23:55 IV discontinued, intact, bleeding controlled, No redness/swelling at site. Pressure bm8 dressing applied. Administered Medications: 20:24 Drug: Famotidine IVP 20 mg IVP once; dilute with 10 mL 0.9% NaCl; give over 2 minutes bm8 Route: IVP; Site: right forearm; 22:06 Follow up: Response: No adverse reaction bm8 20:24 Drug: Ondansetron IVP 4 mg IVP once; over 2 minutes Route: IVP; Site: right forearm; bm8 22:06 Follow up: Response: No adverse reaction bm8 20:24 Drug: NS 0.9% IV 1000 ml IV at 125 ml/hr continuous Route: IV; Rate: 125 ml/hr; Site: bm8 right forearm; 23:57 Follow up: Response: No adverse reaction; IV Status: Completed infusion; IV Intake: bm8 400ml 20:24 Drug: morphine IVP or IV 2 mg IVP once over 4 mins Route: IVP; Infused Over: 4 mins; bm8 Site: right forearm; 22:05 Follow up: Response: No adverse reaction bm8 20:24 Drug: Ondansetron IVP 4 mg IVP once; over 2 minutes Route: IVP; Site: right forearm; bm8 22:05 Follow up: Response: No adverse reaction bm8 Medication: 20:25 VIS not applicable for this client. bm8 Intake: 23:57 IV: 400ml; Total: 400ml. bm8 Outcome: 23:38 Discharge ordered by . spRandy 23:55 Discharged to home ambulatory, bm8 23:55 Condition: good 23:55 Discharge instructions given to patient, family, Instructed on discharge instructions, follow up and referral plans. no drinking with medication, no driving heavy equipment, medication usage, safety practices, Demonstrated understanding of instructions, follow-up care, medications, Prescriptions given X 2, 23:58 Patient left the ED. bm8 Signatures: Dispatcher [employer] EDHI Shalini Rain, MANAGING MEMBER-C MANAGING MEMBER-CkYusef Basurto MD MD cha Williams, Irene, RN RN iw Sayra Pace RN RN ha1 Aneudy Kovacs MD MD sp4 Mary Agrawal ra3 Helio Prado RN RN bm8 Ale Grant, RN RN kj2
[2024-05-26 00:35] VITALS: TEMP 97.4
[2024-05-26 00:51] VITALS: O2SAT 96
[2024-05-26 00:53] VITALS: BP 150/74
--- NOTE | 2024-05-30 13:06 | EKG ---
Test Date: 2024-05-25 Test Time: 20:08:21 Mechanical Specialist: SAMMI MEASUREMENT RESULTS: Intervals: Rate: 74 OK: 178 QRSD: 86 QT: 368 QTc: 408 [place]: P: 70 OK: 178 QRS: 0 T: 98 INTERPRETIVE STATEMENTS: Normal sinus rhythm with sinus arrhythmia Nonspecific ST abnormality Abnormal QRS-T angle, consider primary T wave abnormality Abnormal ECG Compared to ECG 01/19/2024 16:10:22 ST (T wave) deviation now present T-wave abnormality now present Electronically Signed On 05-30-24 12:52:06 CDT by Jeremy Neely
== END 2024-05-25 23:58 | disposition home or self-care (01) ==
LOC: ER 17:30
DX: K59.00 Constipation, unspecified (principal)
CPT/HCPCS: 96361; 93005; 85025; 81001; 36415; 83690; 80053; 74177; 96375; 96374; 99284; Q9967; J2270; J2405; J7030

== ENCOUNTER 2024-06-04 16:33 | Inpatient (IN) | payer OTHER ==
[2024-06-04 17:12] LABS: Absolute Basophils 0.1 K/uL (0-0.5); Absolute Lymphocytes (CBC) 0.6 K/uL (0.7-4.9); Absolute Monocytes 1.3 K/uL (0.1-1.3); Absolute Neutrophil 12.7 K/uL (1.8-8.0); Basophils % 0.4 % (0-1.3); Hematocrit 35.3 % (36.0-45.0); Hemoglobin 11.3 g/dL (12.0-15.0); Lymphocytes % 4.2 % (15.3-44.8); MCH 30.4 pg (27.0-35.0); MCV 94.9 fL (80-100); MPV 8.6 fL (7.6-11.3); Monocytes % 8.6 % (3.3-12.3); Neutrophils % 86.8 % (41.7-73.7); Platelets 166 thou/uL (152-406); RBC Red Blood Cell Count 3.72 M/uL (3.86-4.86); Red Cell Distribution Width 13.4 % (12.1-15.2)
[2024-06-04] MEDS ORDERED: NA CHLORIDE 0.9% 500 ML ONE (17:30)
[2024-06-04 17:31] LABS: Albumin 2.6 g/dL (3.4-5.0); Albumin/Globulin Ratio 0.6 (1.1-1.8); Anion Gap 10.1 mEq/L (5.0-15.0); Bilirubin Total 0.7 mg/dL (0.2-1.0); Globulin 4.2 g/dL (2.3-3.5); Potassium 4.1 mEq/L (3.5-5.1); Protein, Total 6.8 g/dL (6.4-8.2)
[2024-06-04 18:16] LABS: Specific Gravity 1.016 (1.005-1.030); Sqamous Epithelial None Seen /HPF (None Seen); Urine Bacteria 20-50 /HPF (<20); Urine Bilirubin NEGATIVE (Negative); Urine Blood 1+ (Negative); Urine Clarity Extremely Turbid (Clear); Urine Color Light-Orange (Yellow); Urine Culture Reflex Order REFLEXED; Urine Glucose NEGATIVE (Negative); Urine Ketones NEGATIVE (Negative); Urine Microscopic Reflex YN ORDER UMIC; Urine Mucus 3+ /HPF (None Seen); Urine Nitrite 1+ (Negative); Urine Protein 2+ (Negative); Urine RBC 21-50 /HPF (None Seen); Urine Urobilinogen Normal (Normal); Urine WBC >50 /HPF (<5); Urine WBC Clump Many /HPF (None Seen)
--- NOTE | 2024-06-04 19:42 | RAD REPORT ---
EXAMINATION: CT ABDOMEN AND PELVIS WITH CONTRAST CLINICAL INDICATION: Female, 89 years old. [facility] MAIN ABD PAIN IV ONLY Bed Name: 19 TECHNIQUE: CT abdomen and pelvis was performed, after the administration of IV contrast, as per [facility] protocol. Axial, sagittal and coronal reconstructions were obtained. One or more of the following dose reduction techniques were used: Automated exposure control, adjustment of the mA and k V according to patient size, and iterative reconstruction. Unless otherwise specified, incidental findings do not require dedicated imaging follow-up. COMPARISON: No prior exam. FINDINGS: LOWER CHEST: The visualized lung bases are clear. LIVER: Normal in size and contour. No focal lesion. BILIARY SYSTEM: Status post cholecystectomy. SPLEEN: Normal size. No focal lesion. PANCREAS: No mass, ductal dilation, or ainsley-pancreatic fluid. ADRENALS: Normal; no mass. KIDNEYS: Swelling and areas of hypoattenuation throughout the left renal cortex with asymmetric left perinephric fat stranding. No discrete mass. Exophytic left interpolar 1.4 cm simple appearing cyst. Mild left renal pelvis fullness and minimal urothelial enhancement. No radiopaque calculi or hy dronephrosis. URINARY BLADDER: Decompressed limiting evaluation. GASTROINTESTINAL TRACT: No evidence of free air, significant intra-abdominal free fluid, bowel obstru ction or abscess. Trace pelvic fluid is incidentally noted APPENDIX: Normal appendix. LYMPH NODES: No lymphadenopathy. MUSCULOSKELETAL: No acute or suspicious osseous abnormality. Lumbosacral spine degenerative changes w ith dextroconvex scoliosis, apex at L1-L2. ADDITIONAL FINDINGS: Tortuosity of the abdominal aorta.. IMPRESSION: Left renal swelling and areas of parenchymal hypoattenuation, concerning for acute pyelonephritis. No evidence of obstruction. Other incidental findings as above.
--- NOTE | 2024-06-04 20:03 | ER ---
Nurse's Notes [facility] Name: Rosina Odonnell Age: 89 yrs Sex: Female : 1935 Arrival Date: 06/04/2024 Time: 16:33 Bed 19 Private MD: Matthieu Kohler Diagnosis: Multiple sclerosis;Fever, unspecified;Pyelonephritis acute;Elevated white blood cell count Presentation: 06/04 16:49 Chief complaint: Diffuse abdominal pain 8/10 and nausea x 4 days. Coronavirus screen: hb At this time, the client does not indicate any symptoms associated with coronavirus-19. Ebola Screen: No symptoms or risks identified at this time. Initial Sepsis Screen: Does the patient meet any 2 criteria? No. Patient's initial sepsis screen is negative. Does the patient have a suspected source of infection? No. Patient's initial sepsis screen is negative. Risk Assessment: Do you want to hurt yourself or someone else? Patient reports no desire to harm self or others. Onset of symptoms was June 01, 2024. 16:49 Method Of Arrival: Wheelchair hb 16:49 Acuity: [place] 3 hb Historical: - Allergies: 16:57 Augmentin; hb 16:57 PENICILLINS; hb 16:57 Sulfa (Sulfonamide Antibiotics); hb - PMHx: 16:57 Asthma; Asthma; Hypertension; Multiple Sclerosis; Seizure; hb - PSHx: 16:57 EGD; GALLBLADDER; hysterectomy; sinus surgery; hb - Immunization history:: Adult Immunizations up to date. - Infectious Disease History:: Denies. - Social history:: Smoking status: Patient denies any tobacco usage or history of. - Family history:: not pertinent. - Hospitalizations: : No recent hospitalization is reported. Screenin:08 [facility] ED Fall Risk Assessment (Adult) History of falling in the last 3 months, kc6 including since admission No falls in past 3 months (0 pts) Confusion or Disorientation No (0 pts) Intoxicated or Sedated No (0 pts) Impaired Gait Yes (1 pt) Mobility Assist Device Used Yes (1 pt) Altered Elimination Yes (1 pt) Score/Fall Risk Level 3 or more points = High Risk Oriented to surroundings. Abuse screen: Denies threats or abuse. Denies injuries from another. Nutritional screening: No deficits noted. Tuberculosis screening: No symptoms or risk factors identified. Assessment: 17:08 General: Appears in no apparent distress. comfortable, slender, well groomed, Behavior kc6 is calm, cooperative, appropriate for age. Pain: Complains of pain in abdomen diffusely Pain currently is 8 out of 10 on a pain scale. Neuro: Level of Consciousness is awake, alert, obeys commands, Oriented to person, place, time, situation, Appropriate for age. Cardiovascular: Capillary refill < 3 seconds. Respiratory: Airway is patent Trachea midline Respiratory effort is even, unlabored, Respiratory pattern is regular, symmetrical. GI: Abdomen is flat, non-distended, Last BM was June 04, 2024. Bowel sounds present X 4 quads. Abd is soft X 4 quads Abdomen is tender to palpation X 4 quads. Reports lower abdominal pain, upper abdominal pain, nausea, Patient currently denies diarrhea, vomiting. : No signs and/or symptoms were reported regarding the genitourinary system. EENT: No signs and/or symptoms were reported regarding the EENT system. Derm: No signs and/or symptoms reported regarding the dermatologic system. Skin is intact, is fragile, is thin, with poor turgor Skin is dry, Skin is pale, Skin temperature is warm. Musculoskeletal: No signs and/or symptoms reported regarding the musculoskeletal system. 18:22 Reassessment: Patient appears in no apparent distress at this time. No changes from kc6 previously documented assessment. Patient and/or family updated on plan of care and expected duration. Pain level reassessed. Patient is alert, oriented x 3, equal unlabored respirations, skin warm/dry/pink. 19:00 Reassessment: Patient and/or family updated on plan of care and expected duration. Pain br2 level reassessed. Patient is alert, oriented x 3, equal unlabored respirations, skin warm/dry/pink. Patient states feeling better. Patient states symptoms have improved. 20:30 Reassessment: Patient and/or family updated on plan of care and expected duration. Pain ha1 level reassessed. Patient is alert, oriented x 3, equal unlabored respirations, skin warm/dry/pink. 21:30 Reassessment: Patient and/or family updated on plan of care and expected duration. Pain ha1 level reassessed. Reassessment: notified Dr. Echavarria. Respiratory: Airway is patent Respiratory effort is even, unlabored, Respiratory pattern is regular, symmetrical. GI: Reports nausea. 21:50 Reassessment: Patient and/or family updated on plan of care and expected duration. Pain ha1 level reassessed. Patient is alert, oriented x 3, equal unlabored respirations, skin warm/dry/pink. notified Dr. Echavarria of elevated temperature. Vital Signs: 16:49 BP 130 / 61; Pulse 85; Resp 18; Temp 97.7(O); Pulse Ox 100% on R/A; Weight 43.09 kg; hb Height 5 ft. 6 in. ; Pain 8/10; 18:23 BP 113 / 55; Pulse 81; Resp 16 S; Pulse Ox 95% on R/A; kc6 19:30 BP 98 / 52; Pulse 90; Resp 17 S; Pulse Ox 95% on R/A; ha1 20:30 BP 107 / 78; Pulse 90; Resp 17 S; Pulse Ox 95% on R/A; ha1 21:50 BP 160 / 76; Pulse 103 LA; Resp 22 S; Temp 101.2(O); Pulse Ox 95% on R/A; ha1 16:49 Body Mass Index 15.33 (43.09 kg, 167.64 cm) hb 16:49 Pain Scale: Adult hb ED Course: 16:40 Patient arrived in ED. gm2 16:40 Matthieu Kohler MD is Private Physician. gm2 16:46 Sulma Wheeler, RN is Primary Nurse. kc6 16:48 Emil Pham MD is Attending Physician. rn 16:57 Triage completed. hb 16:59 Arm band placed on. hb 17:07 Inserted saline lock: 22 gauge in right forearm, using aseptic technique. Blood kc6 collected. Flushed with 10 mL NS. Patient maintains SpO2 saturation greater than 95% on room air. 17:08 Patient has correct armband on for positive identification. Bed in low position. Call kc6 light in reach. Side rails up X2. Adult w/ patient. Pulse ox on. NIBP on. Door closed. Noise minimized. Lights dimmed. Warm blanket given. Pillow given. 17:28 Patient requests liquids. kc6 17:28 Straight cath inserted, using sterile technique, 14 Fr. Specimen obtained. Returned kc6 cloudy urine. Patient tolerated well. 17:28 Urinalysis w/ reflexes Sent. kc6 17:33 Diet: Patient given water. Required assistance. kc6 18:37 CT Abd/Pelvis - IV Contrast Only In Process Unspecified. EDMS 19:30 First set of blood cultures drawn Second set of blood cultures drawn. ha1 20:00 Provided Education on: need for admit and plan of care . ha1 20:02 Matthieu Kohler MD is Hospitalizing Provider. [facility] 21:30 Cleaned of incontinence. ha1 22:13 No provider procedures requiring assistance completed. Patient admitted, IV remains in ha1 place. 22:42 Blood Culture Adult (2) Sent. ha1 Administered Medications: 17:33 Drug: NS 0.9% IV 500 ml IV at bolus once Route: IV; Rate: bolus; Site: right forearm; kc6 19:00 Follow up: Response: No adverse reaction; IV Status: Completed infusion; IV Intake: ha1 1000ml 20:11 Drug: Rocephin - Rocephin (cefTRIAXone) IVPB 1 grams IVPB once over 30 mins; (mix in 50 br2 mL NS) Route: IVPB; Infused Over: 30 mins; Site: right wrist; 21:00 Follow up: Response: No adverse reaction; IV Status: Completed infusion; IV Intake: ha1 100ml 20:28 Drug: levofloxacin IVPB 500 mg 100 ml IVPB once over 60 mins Volume: 100 ml; Route: br2 IVPB; Infused Over: 60 mins; Site: right antecubital; 22:00 Follow up: Response: No adverse reaction; IV Status: Completed infusion; IV Intake: ha1 500ml 21:55 CANCELLED (wrong routee): ondansetron4 mg PO once br2 21:55 Drug: Ondansetron IVP 4 mg IVP once; over 2 minutes Route: IVP; Site: right forearm; br2 22:40 Follow up: Response: No adverse reaction; Nausea is decreased ha1 22:09 Drug: Ibuprofen PO Suspension 10 mg/kg PO once Route: PO; ha1 22:40 Follow up: Response: No adverse reaction 1 Medication: 22:14 VIS not applicable for this client. ha1 Intake: 19:00 IV: 1000ml; Total: 1000ml. ha1 21:00 IV: 100ml; Total: 1100ml. ha1 22:00 IV: 500ml; Total: 1600ml. ha1 Outcome: 20:03 Decision to Hospitalize by Provider. ervin 22:13 Admitted to Tele accompanied by nurse, via stretcher, room 431, with chart, ha1 22:13 Condition: stable 22:13 Instructed on the need for admit, Demonstrated understanding of instructions, 22:44 Patient left the ED. ha1 Signatures: Dispatcher [employer] EDYusef Sims MD MD cha Nieto, Roman, MD MD rn Baxter, Heather RN RN Sayra Pace RN RN ha1 Sulma Wheeler RN RN [email or web address] Stacia Geiger 2 Heather Hunter RN RN br2
--- NOTE | 2024-06-04 20:03 | EDPHYS ---
Physician Documentation [facility] Name: Rosina Odonnell Age: 89 yrs Sex: Female : 1935 Arrival Date: 06/04/2024 Time: 16:33 Bed 19 Private MD: Matthieu Kohler ED Physician Emil Pham HPI: 06/04 19:10 This 89 yrs old Female presents to ER via Wheelchair with complaints of Abdominal Pain. rn 19:10 The patient presents with abdominal pain. Onset: The symptoms/episode began/occurred 2 rn week(s) ago. The symptoms do not radiate. Associated signs and symptoms: Pertinent positives: constipation, Pertinent negatives: fever. Modifying factors: The symptoms are alleviated by nothing, the symptoms are aggravated by nothing. Severity of pain: At its worst the pain was moderate in the emergency department the pain is unchanged. The patient has not experienced similar symptoms in the past. Patient reports at least 2 weeks of diffuse abdominal pain. Associated with constipation. Seen here without acute findings and discharged, states never improved. No vomiting. No fever.. Historical: - Allergies: 16:57 Augmentin; hb 16:57 PENICILLINS; hb 16:57 Sulfa (Sulfonamide Antibiotics); hb - PMHx: 16:57 Asthma; Asthma; Hypertension; Multiple Sclerosis; Seizure; hb - PSHx: 16:57 EGD; GALLBLADDER; hysterectomy; sinus surgery; hb - Immunization history:: Adult Immunizations up to date. - Infectious Disease History:: Denies. - Social history:: Smoking status: Patient denies any tobacco usage or history of. - Family history:: not pertinent. - Hospitalizations: : No recent hospitalization is reported. ROS: 19:10 Constitutional: Negative for fever, chills, and weight loss, Cardiovascular: Negative rn for chest pain, palpitations, and edema, Respiratory: Negative for shortness of breath, cough, wheezing, and pleuritic chest pain, Abdomen/GI: Positive for abdominal pain and constipation Back: Negative for injury and pain, MS/Extremity: Negative for injury and deformity, Neuro: Negative for headache, weakness, numbness, tingling, and seizure, Exam: 19:10 Constitutional: This is a well developed, well nourished patient who is awake, alert, rn and in no acute distress. Cardiovascular: Regular rate and rhythm. No pulse deficits. Respiratory: No increased work of breathing, no retractions or nasal flaring. Abdomen/GI: Soft, no focal tenderness. No masses. MS/ Extremity: Pulses equal, no cyanosis. Neuro: Awake and alert, GCS 15 Vital Signs: 16:49 BP 130 / 61; Pulse 85; Resp 18; Temp 97.7(O); Pulse Ox 100% on R/A; Weight 43.09 kg; hb Height 5 ft. 6 in. ; Pain 8/10; 18:23 BP 113 / 55; Pulse 81; Resp 16 S; Pulse Ox 95% on R/A; kc6 19:30 BP 98 / 52; Pulse 90; Resp 17 S; Pulse Ox 95% on R/A; ha1 20:30 BP 107 / 78; Pulse 90; Resp 17 S; Pulse Ox 95% on R/A; ha1 21:50 BP 160 / 76; Pulse 103 LA; Resp 22 S; Temp 101.2(O); Pulse Ox 95% on R/A; ha1 16:49 Body Mass Index 15.33 (43.09 kg, 167.64 cm) hb 16:49 Pain Scale: Adult hb MDM: 16:48 Patient medically screened. rn 20:03 Differential diagnosis: diverticulitis, gastritis, non-specific abd pain, pancreatitis, ervin Peptic Ulcer Disease, Peritonitis, Pyelonephritis, Ureterolithiasis, urinary tract infection. Data reviewed: vital signs, nurses notes, lab test result(s), radiologic studies, CT scan. Consideration of Admission/Observation Patient was admitted/placed on observation. Escalation of care including admission/observation considered. I considered the following discharge prescriptions or medication management in the emergency department Medications were administered in the Emergency Department. See MAR. Independent interpretation of the following test(s) in the Emergency Department CT Scan: My interpretation is ct stone. Test considered but Not performed: Ultrasound no abd usg. Care significantly affected by the following chronic conditions: Hypertension, asthma, MS, SEIZURE. Counseling: I had a detailed discussion with the patient and/or guardian regarding the historical points, exam findings, and any diagnostic results supporting the discharge/admit diagnosis, lab results, radiology results, the need for further work-up and treatment in the hospital. 06/04 16:49 Order name: CBC with Diff; Complete Time: 18:20 rn 06/04 16:49 Order name: CMP; Complete Time: 18:20 rn 06/04 16:49 Order name: Lipase; Complete Time: 18:20 rn 06/04 16:49 Order name: Urinalysis w/ reflexes; Complete Time: 18:20 rn 06/04 18:20 Order name: Urine Culture EDMS 06/04 18:21 Order name: Blood Culture Adult (2) rn 06/04 18:21 Order name: Lactate w/ 2H reflex if indic. rn 06/04 20:22 Order name: Basic Metabolic Panel EDMS 06/04 20:22 Order name: Basic Metabolic Panel EDMS 06/04 20:22 Order name: CBC with Automated Diff EDMS 06/04 20:22 Order name: CBC with Automated Diff EDMS 06/04 16:49 Order name: CT Abd/Pelvis - IV Contrast Only rn 06/04 16:49 Order name: IV Saline Lock; Complete Time: 17:07 rn 06/04 16:49 Order name: Labs collected and sent; Complete Time: 17:07 rn Administered Medications: 17:33 Drug: NS 0.9% IV 500 ml IV at bolus once Route: IV; Rate: bolus; Site: right forearm; kc6 19:00 Follow up: Response: No adverse reaction; IV Status: Completed infusion; IV Intake: ha1 1000ml 20:11 Drug: Rocephin - Rocephin (cefTRIAXone) IVPB 1 grams IVPB once over 30 mins; (mix in 50 br2 mL NS) Route: IVPB; Infused Over: 30 mins; Site: right wrist; 21:00 Follow up: Response: No adverse reaction; IV Status: Completed infusion; IV Intake: ha1 100ml 20:28 Drug: levofloxacin IVPB 500 mg 100 ml IVPB once over 60 mins Volume: 100 ml; Route: br2 IVPB; Infused Over: 60 mins; Site: right antecubital; 22:00 Follow up: Response: No adverse reaction; IV Status: Completed infusion; IV Intake: ha1 500ml 21:55 CANCELLED (wrong routee): ondansetron4 mg PO once br2 21:55 Drug: Ondansetron IVP 4 mg IVP once; over 2 minutes Route: IVP; Site: right forearm; br2 22:40 Follow up: Response: No adverse reaction; Nausea is decreased ha1 22:09 Drug: Ibuprofen PO Suspension 10 mg/kg PO once Route: PO; ha1 22:40 Follow up: Response: No adverse reaction ha1 Disposition Summary: 06/04/24 20:03 Hospitalization Ordered Notes: Hospitalization Status: Inpatient Admission ervin Provider: Matthieu Kohler cha Location: Telemetry/MedSurg (Inpatient) ervin Condition: Fair ervin Problem: new ervin Symptoms: have improved ervin Bed/Room Type: Standard [facility] Room Assignment: 431(06/04/24 20:29) kl Diagnosis - Multiple sclerosis ervin - Fever, unspecified ervin - Pyelonephritis acute ervin - Elevated white blood cell count ervin Forms: - Medication Reconciliation Form ervin - SBAR form ervin - Leadership Thank You Letter ervin Signatures: Dispatcher [employer] EDMS Moraima Lyman RN Yusef Welsh MD MD cha Nieto, Roman, MD MD rn Baxter, Heather, RN RN hb Ayala, Heidy, RN RN ha1 Sulma Wheeler RN RN kc6 Heather Hunter RN RN br2 Corrections: (The following items were deleted from the chart) 16:49 16:49 CBC+H.LAB.BRZ ordered. EDMS EDMS 16:49 16:49 COMPREHENSIVE METABOLIC PANEL+C.LAB.BRZ ordered. EDMS EDMS 16:49 16:49 LIPASE+C.LAB.BRZ ordered. EDMS EDMS 16:49 16:49 Urinalysis+U.LAB.BRZ ordered. EDMS EDMS 20:29 20:03 ervin kl 21:55 21:55 Ondansetron PO 4 mg PO once ordered. br2 br2
[2024-06-04] MEDS ORDERED: CEFTRIAXONE 1000 MG/VIAL ONE (20:04)
[2024-06-04] MEDS ORDERED: NA CHLORIDE 0.9% 50 ML ONE (20:04)
[2024-06-04] MEDS ORDERED: Levofloxacin500mg IV 500 MG/100 ML BAG IV ONE (20:22)
[2024-06-04] MEDS: NA CHLORIDE 0.9% 1,000 ML IV SCH (21:00)
[2024-06-04] MEDS ORDERED: ONDANSETRON 4 MG/2 ML VIAL ONE (21:43)
[2024-06-04] MEDS ORDERED: ACETAMINOPHEN 325 MG TABLET ONE (21:53)
[2024-06-04] MEDS ORDERED: IBUPROFEN 400 MG TAB ONE (22:03)
[2024-06-04] MEDS ORDERED: NA CHLORIDE 0.9% 1,000 ML ONE (22:04)
[2024-06-04] MEDS: MORPHINE 2 MG/ML SYR IV PRN (23:01)
[2024-06-04 23:23] VITALS: BMI 14.7
[2024-06-05] MEDS: ONDANSETRON 4 MG/2 ML VIAL IV PRN (02:51)
[2024-06-05] MEDS: ACETAMINOPHEN 325 MG TABLET PO PRN (03:36)
[2024-06-05] MEDS: CEFTRIAXONE 1,000 MG in NA CHLORIDE 0.9% 50 ML IVPB SCH (08:33)
[2024-06-05] MEDS ORDERED: HOME MED 1 EA UNK (Oxycodone Hcl/Acetaminophen [Oxycodone-Acetaminophn 7.5-325] Tablet) PO PRN (10:49)
[2024-06-05 13:34] LABS: Absolute Lymphocytes (CBC) 1.2 K/uL (0.7-4.9); Absolute Neutrophil 14.2 K/uL (1.8-8.0); Basophils % 0.2 % (0-1.3); Eosinophils % 0.2 % (0-4.4); Hematocrit 32.6 % (36.0-45.0); Hemoglobin 10.3 g/dL (12.0-15.0); Lymphocytes % 7.4 % (15.3-44.8); MCH 30.2 pg (27.0-35.0); MCHC 31.6 g/dL (32.0-36.0); MCV 95.5 fL (80-100); MPV 9.7 fL (7.6-11.3); Monocytes % 6.3 % (3.3-12.3); Neutrophils % 85.9 % (41.7-73.7); Platelets 92 thou/uL (152-406); RBC Red Blood Cell Count 3.41 M/uL (3.86-4.86); Red Cell Distribution Width 13.6 % (12.1-15.2)
[2024-06-05 13:57] LABS: Blood Morphology Comment NOT SEEN (NOT SEEN); Differential Total Cells Count 100; Eosinophils 0 % (0-3); Lymphocytes 14 % (15-42); Monocytes 6 % (0-10); Platelet Estimate DECR; Segmented Neutrophils 80 % (40-80); Toxic Granulation 1+
[2024-06-05 14:06] LABS: Anion Gap 11.7 mEq/L (5.0-15.0); Potassium 3.7 mEq/L (3.5-5.1)
[2024-06-05] MEDS: carvediloL 6.25 MG TAB PO SCH (16:02)
[2024-06-05] MEDS: VALSARTAN 160 MG TAB PO SCH (19:37)
[2024-06-05] MEDS: levETIRAcetam 500 MG TAB PO SCH (19:37)
[2024-06-05] MEDS: MIRTAZAPINE 15 MG TAB PO SCH (19:37)
[2024-06-06] MEDS: LEVOTHYROXINE SOD 0.05 MG TABLET PO SCH (05:21)
--- NOTE | 2024-06-06 08:23 | HP ---
Date of Admission: 06/05/2024 Chief Complaint: Abdominal pain, fever, chills, nausea. History Of Present Illness: This is an 89-year-old female patient who came into emergency room with complaints of abdominal pain associated with some nausea and had 1 episode of vomiting after she came to emergency room. She was also having fever and chills at home. With this complaint, she came into emergency room after she was evaluated. She was admitted to the hospital with acute pyelonephritis. She denies any chest pain, shortness of breath. No dysuria or hematuria. Review of Systems: GI: As mentioned above. Constitutional: As mentioned above. All other systems reviewed and negative. Allergies: TO SULFA CAUSING ITCHING AND AUGMENTIN CAUSING ITCHING. Medications: List reviewed. Social History: Negative for smoking and alcohol use. Past Medical History: Significant for history of recurrent urinary tract infections, insomnia, hypertension, asthma, osteoarthritis at multiple sites, diverticulosis, gastroesophageal reflux disease, multiple sclerosis, hypothyroidism, hyperlipidemia, rosacea. Past Surgical History: Significant for sinus surgery, removal of benign breast tumor, hysterectomy, shoulder surgery, and toe surgery. Family History: Father had subdural hematoma. Mother had hypertension. Physical Examination: Vital Signs: This morning temperature 97.6, pulse 66, respiratory rate 14, blood pressure 115/55, oxygen saturation 95%. Height 5 feet 6 inches, weight 91 pounds. General: Awake, alert, oriented, not in distress. HEENT: Head atraumatic, normocephalic. Conjunctivae nonerythematous. Sclerae white. Mouth, no thrush or edema noted. Ears/Nose, no mass, lesion, discharge noted. Neck: Supple. No JVD, lymph nodes, bruit, thyromegaly noted. Lungs: Bilateral good equal air entry. Clear to auscultation. No rhonchi. No rales. Heart: Normal heart sounds, no murmur or gallop. Abdomen: Soft, bowel sounds normal. No guarding, rigidity, tenderness, mass, hepatosplenomegaly, distention, or bruit noted. Extremities: The patient has deformity of the right elbow from prior surgery. Skin: No rash, ulcer, cellulitis. Lymphatics: No lymph node enlargement in neck, supraclavicular, infraclavicular region. Neuro: No focal neurological deficit. Chest: Unremarkable. External Genitalia: Deferred. Rectal: Deferred. Laboratory Data: WBC 14.6, hemoglobin 11.3, platelets 166. Sodium 136, potassium 4.1, chloride 102, bicarb 28, BUN 29, creatinine 0.98, glucose 181. Lactic acid 0.9. Liver function tests unremarkable except AST 59, lipase 31. Urinalysis: Leukocyte esterase 500, RBC 21 to 50, WBC more than 50, bacteria 20 to 50. CAT scan of the chest, abdomen, and pelvis shows left renal swelling and areas of parenchymal hypoattenuation concerning for acute pyelonephritis. There is no evidence of any obstruction. Impression: 1. Acute pyelonephritis. 2. Hypertension. 3. Mixed hyperlipidemia. 4. Hypothyroidism. 5. Gastroesophageal reflux disease. 6. Diverticulosis. 7. Osteoarthritis, multiple sites. 8. Multiple sclerosis. Plan: We will go ahead and admit the patient to hospital for further evaluation and management of this problem. The patient is appropriate for inpatient and is expected to spend 2 midnights in hospital. For acute pyelonephritis, urine culture and blood culture was sent from emergency room. We will follow up on the results, but while awaiting on the result, we will give empiric antibiotic, ceftriaxone, per order. DVT prophylaxis will be given using SCD. For hypertension, we will continue her antihypertensive medication with instruction to hold blood pressure medication if systolic blood pressure less than 130. For hyperlipidemia, there is no need for further intervention at this time. For hypothyroidism, we will continue her levothyroxine as per order and no need for further intervention. For gastroesophageal reflux disease, we will continue her home medications per order and no need for further intervention. The patient's multiple sclerosis problem is stable and no need for any further intervention. Total time spent 75 minutes including review of last hospital admission record from 01/19/2024, review of current emergency room visit record, communication with the ER physician, review of last office visit record, and performing today's evaluation and management. I will see her tomorrow morning for followup. ANH/RIGO Voice ID: [id number] JOSE
[2024-06-06] MEDS: MONTELUKAST 10 MG TAB PO SCH (08:42)
[2024-06-06] MEDS: PREGABALIN 150 MG CAP PO SCH (08:42)
[2024-06-06] MEDS: ENSURE ENLIVE 237 ML CAN PO SCH (20:16)
--- NOTE | 2024-06-06 23:51 | PN ---
Date of Progress Note: 06/06/2024 Subjective: The patient was seen this morning for followup. No new complaints or problems reported by patient. She was lying in bed, not in any distress. Objective: Vital Signs: Reviewed. HEENT: Unremarkable. Lungs: Clear to auscultation. Cardiac: Heart sounds normal. Abdomen: Soft. Bowel sounds normal. No guarding, rigidity, tenderness, distention. Extremities: No leg edema. Laboratory Data: Blood culture remains negative. Urine culture pending. Impression: 1.Acute pyelonephritis. 2.Hypertension. 3.Anemia, unspecified. Plan: We will go ahead and continue current antibiotic. The patient's blood pressure was a little b it on the low side yesterday, but today, her blood pressure is much better. We will continue IV flui d, IV antibiotic, which is ceftriaxone. Follow up on urine culture result, and once that is availabl e, we will decide about discharging her to go home with culture specific antibiotic. Possible discha rge tomorrow and details were discussed with her. We will consult Physical Therapy to help ambulate the patient. ANH/MODL Voice ID: [id number] Report ID: [id number]
[2024-06-07 06:52] LABS: Absolute Basophils 0.1 K/uL (0-0.5); Absolute Eosinophils 0.3 K/uL (0-0.5); Absolute Lymphocytes (CBC) 1.4 K/uL (0.7-4.9); Absolute Monocytes 1.3 K/uL (0.1-1.3); Absolute Neutrophil 7.9 K/uL (1.8-8.0); Eosinophils % 2.4 % (0-4.4); Hematocrit 28.1 % (36.0-45.0); Hemoglobin 9.2 g/dL (12.0-15.0); Lymphocytes % 12.7 % (15.3-44.8); MCHC 32.7 g/dL (32.0-36.0); MCV 94.6 fL (80-100); Monocytes % 12.1 % (3.3-12.3); Neutrophils % 71.8 % (41.7-73.7); Platelets 183 thou/uL (152-406); RBC Red Blood Cell Count 2.97 M/uL (3.86-4.86); Red Cell Distribution Width 13.5 % (12.1-15.2)
[2024-06-07 07:24] LABS: Anion Gap 9.6 mEq/L (5.0-15.0); Magnesium 1.8 mg/dL (1.6-2.4); Potassium 3.6 mEq/L (3.5-5.1)
[2024-06-07 07:53] LABS: Albumin 1.7 g/dL (3.4-5.0)
[2024-06-07 09:35] VITALS: O2SAT 92
[2024-06-07] MEDS: CALCIUM GLUCONATE 1 GM IVPB 1 GM/50 ML BAG IV ONE (10:14)
[2024-06-07] MEDS: Mupirocin NASAL 2 APPL/1 GM TUBE NAS SCH (10:15)
[2024-06-07] MEDS: CEFTRIAXONE 1,000 MG in NA CHLORIDE 0.9% 50 ML IVPB SCH (10:18)
--- NOTE | 2024-06-07 11:29 | RAD REPORT ---
EXAMINATION: ONE VIEW CHEST XR CLINICAL INDICATION: Female, 89 years old. picc placement. [facility] picc placement TECHNIQUE: Frontal chest projection is submitted. Examination is limited by patient positioning and t echnique. COMPARISON: 01/19/2024 FINDINGS: The lungs are well inflated and clear. The heart is upper limit of normal in size. Bilateral humeral hardware. Right-sided PICC line tip in SVC. IMPRESSION: Right-sided PICC line has tip in the SVC.
[2024-06-07] MEDS: CALCIUM GLUCONATE 1 GM IVPB 1 GM/50 ML BAG IV SCH (17:41)
[2024-06-07 17:43] VITALS: BP 134/69
[2024-06-07 19:21] VITALS: TEMP 98.1
--- NOTE | 2024-06-08 17:39 | DS ---
Date of Discharge: 06/07/2024 Disposition: Discharged to go home. Physical Examination: HEENT: Unremarkable. Lungs: Clear to auscultation. Heart: Sounds normal. Abdomen: Soft. Bowel sounds normal. No guarding, rigidity, tenderness, distention. Extremities: No leg edema. Discharge Medications And Instructions: 1. Continue all prior home medications. 2. New medication: Ceftriaxone 1 g IV daily for 10 days. 3. Home Health nurse to assist the patient with IV antibiotics, flush PICC line per protocol, change PICC line dressing per protocol, remove PICC line after 10 days of IV antibiotic therapy completed. 4. Follow up at my office next week. Hospital Course: 89-year-old female patient who was admitted to the hospital after she came into emergency room with abdominal pain, fever, chills, and nausea. Please see dictated H and P for more information. The patient was evaluated in the emergency room. She was admitted to the hospital with acute pyelonephritis problem. She was started on IV ceftriaxone. Blood culture and urine culture were done. Her blood culture came back negative. Urine culture and blood culture result came back showing the E coli. The patient has tolerated this antibiotic very well and today she was discharged to go home in stable condition after PICC line was placed and after IV antibiotic therapy for outpatient was arranged by Social Service consultation. Final Diagnoses: 1. Sepsis, E. Coli. 2. Acute pyelonephritis. 3. Hypertension. 4. Mixed hyperlipidemia. 5. Hypothyroidism. 6. Gastroesophageal reflux disease. 7. Diverticulosis. 8. Osteoarthritis, multiple sites. 9. Multiple sclerosis. 10. Anemia, unspecified. 11. Hypocalcemia. 12. Severe malnutrition. Laboratory Data: Urine culture grew E coli and it is sensitive to Bactrim, but the patient is allergic to Bactrim and it is also sensitive to ceftriaxone, meropenem, and nitrofurantoin. For labs initial, sodium 136, potassium 4.1, chloride 102, bicarb 28, BUN 29, creatinine 0.98, glucose 181, lactic acid 0.9. Liver function tests unremarkable except AST 59. Initial serum albumin 2.6. Today, serum albumin 2. Today, calcium was 6 and corrected calcium comes to be around 8. Today, sodium 141, potassium 3.6, chloride 113, bicarb 22, BUN 16, creatinine 0.66, glucose 96. Her initial WBC 14.6, hemoglobin 11.3, platelets 166. Day after admission, WBC 16.5 and today WBC 10.9, hemoglobin 9.2, platelets 183. Total time spent 40 minutes. ANH/MODDee Voice ID: [id number] Report ID: [id number] MTDD
== END 2024-06-07 19:15 | disposition home health service (06) | DRG 871 ==
LOC: ER 16:33 → ERHOLD 20:11 → 4TH 22:28
PROVIDERS: ADMIT Internal Medicine; ATTEND Internal Medicine
PROC: 02HV33Z Insertion of Infusion Device into Superior Vena Cava, Percutaneous Approach (ICD-10-PCS; principal; 2024-06-07)
DX: A41.51 Sepsis due to Escherichia coli [E. coli] (principal); E43 Unspecified severe protein-calorie malnutrition; N10 Acute pyelonephritis; Z68.1 Body mass index [BMI] 19.9 or less, adult; I10 Essential (primary) hypertension; G35 Multiple sclerosis; E03.9 Hypothyroidism, unspecified; E78.2 Mixed hyperlipidemia; E83.51 Hypocalcemia; D64.9 Anemia, unspecified; K59.00 Constipation, unspecified; M19.09 Primary osteoarthritis, other specified site; K21.9 Gastro-esophageal reflux disease without esophagitis; K57.90 Diverticulosis of intestine, part unspecified, without perforation or abscess without bleeding; Z88.2 Allergy status to sulfonamides; Z88.1 Allergy status to other antibiotic agents; Z90.710 Acquired absence of both cervix and uterus
CPT/HCPCS: 36415; 36569; 51702; 71045; 74177; 80048; 80053; 81001; 82040; 82947; 83605; 83690; 83735; 85025; 87040; 87077; 87086; 87088; 87186; 87205; 97116; 97161; 97530; 99285; J0612; J0696; J2270; J2405; J7030; J7040; Q9967

== ENCOUNTER 2024-08-13 18:09 | Emergency (ER) | payer OTHER ==
[2024-08-13] MEDS ORDERED: ACETAMINOPHEN 500 MG TAB ONE (18:43)
--- NOTE | 2024-08-13 19:47 | RAD REPORT ---
EXAMINATION: CT HEAD WITHOUT CONTRAST CT CERVICAL SPINE WITHOUT CONTRAST CLINICAL INDICATION: Female, 89 years old. fall TECHNIQUE: Axial CT images from the skull base to the vertex without intravenous contrast. Axial CT i mages through the cervical spine were obtained without intravenous contrast. Sagittal and coronal reformatted images were created from the data set. Coronal and sagittal reformatted images were creat ed from the data set. One or more of the following dose reduction techniques were used: Automated exposure control, adjustment of the mA and/or kV according to patient size, and/or iterative reconstr uction. Unless otherwise specified, incidental findings do not require dedicated imaging follow-up. [id number]. COMPARISON: 02/03/2018 FINDINGS: Head: INTRACRANIAL: No acute intracranial hemorrhage. No hydrocephalus. No mass effect or midline shift. Ce rebral atrophy. VASCULATURE: No visualized abnormalities in the arteries or dural venous sinuses. SCALP/SKULL: No significant soft tissue or osseous abnormalities. SINUSES: Prior functional sinus surgery. Cervical spine: ALIGNMENT: Approximately 2 mm anterolisthesis of C3 on C4. Trace anterolisthesis C4 on C5. . 3 mm ant erolisthesis of C6 on C7. BONE: Vertebral body heights are maintained. No aggressive osseous lesions. DEGENERATIVE CHANGES: Varying degrees of bilateral neural foraminal narrowing noted. SOFT TISSUE: No significant abnormalities in the soft tissue of the neck. The visualized lung apices are clear. IMPRESSION: No acute intracranial abnormality. No acute fracture or traumatic malalignment of the cervical spine.
--- NOTE | 2024-08-13 19:58 | RAD REPORT ---
EXAM: CT CHEST, ABDOMEN AND PELVIS WITHOUT CONTRAST CLINICAL INDICATION: Female, 89 years old FALL TECHNIQUE: CT chest, abdomen and pelvis was performed, without IV contrast, as per department protoco l. Axial, sagittal and coronal reconstructions were obtained. One or more of the following dose reduction techniques were used: Automated exposure control, adjustment of the mA and/or kV according to the patient size, and/or iterative reconstruction. Unless otherwise specified, incidental findings do not require dedicated imaging follow-up. [id number]. COMPARISON: 03/22/2021, 01/21/2023 FINDINGS: The lack of intravenous contrast limits the sensitivity of this exam for evaluation of solid visceral organs, vascular structures, and retroperitoneum. Chest: LOWER NECK/CHEST WALL: Visualized thyroid gland and soft tissues are normal. LUNGS AND AIRWAYS: Airways are clear. No evidence of airspace or interstitial process. No nodules. PLEURA: No pleural effusion. No pneumothorax. Hemidiaphragms are normally positioned. MEDIASTINUM AND LYMPH NODES: No mediastinal mass or fluid collection. Normal size mediastinal, hilar, and axillary lymph nodes. THORACIC AORTA: Normal caliber and configuration. PULMONARY ARTERIES: Normal caliber. HEART: Unremarkable. Abdomen/Pelvis LIVER: Normal in size and contour. No focal lesion. GALLBLADDER/BILE DUCTS: Cholecystectomy. Extrahepatic biliary duct dilatation which may be related to the patient's post cholecystectomy state. PANCREAS: No mass, ductal dilation, or ainsley-pancreatic fluid. SPLEEN: Normal size. No focal lesion. ADRENALS: Normal; no mass. KIDNEYS AND URETERS: Normal size and contour. No hydronephrosis. GASTROINTESTINAL TRACT: Stomach is non-dilated. Small bowel has normal course and caliber. No colonic wall thickening or pericolonic inflammatory changes. Large colonic stool burden. PERITONEUM: No free fluid. LYMPH NODES: No lymphadenopathy. ABDOMINAL AORTA AND OTHER VESSELS: Normal caliber aorta and IVC. Atherosclerosis. URINARY BLADDER: Normal contour. REPRODUCTIVE ORGANS: No pathologic process. Hysterectomy MUSCULOSKELETAL: Left shoulder arthroplasty. There is lucency around the proximal aspect of the arthr oplasty which is likely chronic. Plate-screw in the right humerus. Remote right obturator ring fracture. Remote right iliac bone fracture. Remote sternal fracture. Multilevel degenerative changes are present in the spine. ADDITIONAL FINDINGS: None IMPRESSION: No acute or significant abnormalities in the chest, abdomen, or pelvis. Incidental findings as noted above.
--- NOTE | 2024-08-13 20:00 | RAD REPORT ---
EXAMINATION: Hip Right 2 View CLINICAL INDICATION: Female, 89 years old. fall;Pain RIGHT COMPARISON: 10/05/2012 FINDINGS: No acute fracture. Remote right obturator ring fracture. Osteopenia. No malalignment/dislocation. No significant focal degenerative change. Other: n/a IMPRESSION: No acute osseous abnormality.
--- NOTE | 2024-08-13 20:02 | RAD REPORT ---
EXAMINATION: Pelvis CLINICAL INDICATION: Female, 89 years old. fall COMPARISON: No prior exam. FINDINGS: No acute fracture. Mild sclerosis in the right femoral head could reflect sequela of avascular necros is. Right obturator ring fracture. Osteopenia. No malalignment/dislocation. No significant focal degenerative change. Other: n/a IMPRESSION: No acute osseous abnormality.
[2024-08-13 22:41] LABS: Absolute Basophils 0.1 K/uL (0-0.5); Basophils % 0.8 % (0-1.3); MPV 7.2 fL (7.6-11.3)
[2024-08-13 22:47] LABS: Anion Gap 10.5 mEq/L (5.0-15.0); Potassium 4.5 mEq/L (3.5-5.1)
[2024-08-13 22:48] LABS: Absolute Eosinophils 0.4 K/uL (0-0.5); Absolute Monocytes 0.6 K/uL (0.1-1.3); Absolute Neutrophil 4.9 K/uL (1.8-8.0); Hematocrit 25.5 % (36.0-45.0); Hemoglobin 8.3 g/dL (12.0-15.0); Lymphocytes % 24.9 % (15.3-44.8); MCH 30.7 pg (27.0-35.0); MCHC 32.5 g/dL (32.0-36.0); MCV 94.5 fL (80-100); Monocytes % 7.5 % (3.3-12.3); Neutrophils % 61.8 % (41.7-73.7); Platelets 263 thou/uL (152-406); Red Cell Distribution Width 14.8 % (12.1-15.2)
[2024-08-13 23:29] LABS: Sqamous Epithelial <5 /HPF (None Seen); Urine Bacteria 20-50 /HPF (<20); Urine Bilirubin NEGATIVE (Negative); Urine Blood Trace (Negative); Urine Clarity Extremely Turbid (Clear); Urine Color Yellow (Yellow); Urine Crystals Unidentified Few /HPF (None Seen); Urine Culture Reflex Order REFLEXED; Urine Glucose NEGATIVE (Negative); Urine Ketones TRACE (Negative); Urine Microscopic Reflex YN ORDER UMIC; Urine Nitrite NEGATIVE (Negative); Urine Protein 1+ (Negative); Urine Urobilinogen Normal (Normal); Urine WBC >50 /HPF (<5); Urine WBC Clump Occasional /HPF (None Seen); Urine pH 5.5 (5.0-7.0)
[2024-08-13] MEDS ORDERED: CEFTRIAXONE 1000 MG/VIAL ONE (23:58)
--- NOTE | 2024-08-14 00:33 | ER ---
Nurse's Notes [facility] Name: Rosina Odonnell Age: 89 yrs Sex: Female : 1935 Arrival Date: 08/13/2024 Time: 18:09 Bed 20 Private MD: Diagnosis: Pain in right hip;UTI/ Urinary tract infection, site not specified;Fall on same level, unspecified Presentation: 08/13 18:08 Chief complaint: EMS states: RIGHT HIP PAIN FROM FALL AND LANDING ON RIGHT HIP 2 DAYS db AGO. PAIN NOW 9/10. TAKES OXYCODONE NORMALLY FOR PAIN LAST TOOK THIS AM. Coronavirus screen: Client denies travel out of the [place] in the last 14 days. At this time, the client does not indicate any symptoms associated with coronavirus-19. Ebola Screen: Patient negative for fever greater than or equal to 101.5 degrees Fahrenheit, and additional compatible Ebola Virus Disease symptoms Patient denies exposure to infectious person. Patient denies travel to an Ebola-affected area in the 21 days before illness onset. No symptoms or risks identified at this time. Initial Sepsis Screen: Does the patient meet any 2 criteria? No. Patient's initial sepsis screen is negative. Does the patient have a suspected source of infection? No. Patient's initial sepsis screen is negative. Risk Assessment: Do you want to hurt yourself or someone else? Patient reports no desire to harm self or others. Onset of symptoms was August 11, 2024. 18:08 Method Of Arrival: EMS: [facility] db 18:08 Acuity: [place] 3 db Triage Assessment: 18:15 General: Appears in no apparent distress. comfortable, Behavior is calm, cooperative, db appropriate for age. Pain: Complains of pain in right hip. Neuro: Level of Consciousness is awake, alert, obeys commands, Oriented to person, place, time, situation. Respiratory: Airway is patent Respiratory effort is even, unlabored, Respiratory pattern is regular, symmetrical. Historical: - Allergies: 18:15 Augmentin; db 18:15 PENICILLINS; db 18:15 Sulfa (Sulfonamide Antibiotics); db - PMHx: 18:15 Asthma; Hypertension; Multiple Sclerosis; Seizure; db - PSHx: 18:15 EGD; GALLBLADDER; hysterectomy; sinus surgery; db - Immunization history:: Adult Immunizations unknown. - Infectious Disease History:: Denies. - Social history:: Smoking status: Patient denies any tobacco usage or history of. Screenin:16 [facility] ED Fall Risk Assessment (Adult) History of falling in the last 3 months, db including since admission Yes- single mechanical fall (1 pt) Confusion or Disorientation No (0 pts) Intoxicated or Sedated No (0 pts) Impaired Gait Yes (1 pt) Mobility Assist Device Used Yes (1 pt) Altered Elimination No (0 pt) Score/Fall Risk Level 3 or more points = High Risk Oriented to surroundings, Maintained a safe environment. Abuse screen: Denies threats or abuse. Denies injuries from another. Nutritional screening: No deficits noted. Tuberculosis screening: No symptoms or risk factors identified. Assessment: 18:16 Reassessment: Patient and/or family updated on plan of care and expected duration. Pain db level reassessed. SEE TRIAGE FOR INITIAL ASSESSMENT. 19:00 Reassessment: Patient appears in no apparent distress at this time. Patient and/or kj2 family updated on plan of care and expected duration. Pain level reassessed. Patient is alert, oriented x 3, equal unlabored respirations, skin warm/dry/pink. 20:00 Reassessment: Patient appears in no apparent distress at this time. Patient and/or kj2 family updated on plan of care and expected duration. Pain level reassessed. Patient is alert, oriented x 3, equal unlabored respirations, skin warm/dry/pink. 21:00 Reassessment: Patient appears in no apparent distress at this time. Patient and/or kj2 family updated on plan of care and expected duration. Pain level reassessed. Patient is alert, oriented x 3, equal unlabored respirations, skin warm/dry/pink. 22:00 Reassessment: Patient appears in no apparent distress at this time. Patient and/or kj2 family updated on plan of care and expected duration. Pain level reassessed. Patient is alert, oriented x 3, equal unlabored respirations, skin warm/dry/pink. 23:00 Reassessment: Patient appears in no apparent distress at this time. Patient and/or kj2 family updated on plan of care and expected duration. Pain level reassessed. Patient is alert, oriented x 3, equal unlabored respirations, skin warm/dry/pink. 08/14 00:00 Reassessment: Patient appears in no apparent distress at this time. Patient and/or kj2 family updated on plan of care and expected duration. Pain level reassessed. Patient is alert, oriented x 3, equal unlabored respirations, skin warm/dry/pink. 00:59 Reassessment: Patient appears in no apparent distress at this time. Patient and/or kj2 family updated on plan of care and expected duration. Pain level reassessed. Patient is alert, oriented x 3, equal unlabored respirations, skin warm/dry/pink. Vital Signs: 08/13 18:08 BP 137 / 68; Pulse 88; Resp 16; Temp 98.2; Pulse Ox 100% ; Weight 43.09 kg; Height 5 db ft. 6 in. ; Pain 9/10; 18:41 BP 118 / 92; Pulse 90; Resp 18; Pulse Ox 97% on R/A; db 20:02 BP 119 / 90; Pulse 92; Resp 18; Pulse Ox 97% on R/A; kj2 21:00 BP 121 / 72; Pulse 90; Resp 18; Pulse Ox 97% on R/A; kj2 22:00 BP 118 / 88; Pulse 70; Resp 18; Pulse Ox 100% on R/A; kj2 23:54 BP 97 / 70; Pulse 65; Resp 18; Pulse Ox 98% on R/A; kj2 12 00:59 BP 125 / 63; Pulse 68; Resp 18; Temp 98.2; Pulse Ox 100% on R/A; kj2 08/13 18:08 Body Mass Index 15.33 (43.09 kg, 167.64 cm) db 08/13 18:08 Pain Scale: Adult db ED Course: 08/13 18:13 Patient arrived in ED. db 18:15 Triage completed. db 18:15 Arm band placed on Patient placed in an exam room. db 18:16 [facility]. cp 18:16 Yusef Echavarria MD is Attending Physician. cp 18:25 Marta Parson, MARIELLA is Primary Nurse. db 19:10 Provided Education on: call light. kj2 19:40 Chest Abd Pelvis Wo Con In Process Unspecified. EDMS 19:40 Head C Spine Mpr Wo Con In Process Unspecified. EDMS 19:46 XRAY Pelvis In Process Unspecified. EDMS 19:46 XRAY Hip RIGHT 2 view In Process Unspecified. EDMS 20:01 Ale Grant, RN is Primary Nurse. kj2 22:09 Missed attempt(s): 20 gauge in left antecubital area. kj2 22:28 Inserted saline lock: 22 gauge in left forearm, using aseptic technique. Blood oe collected. Flushed with 10 mL NS. 22:29 Basic Metabolic Panel Sent. oe 22:29 CBC with Diff Sent. oe 08/14 01:00 Adult w/ patient. kj2 01:00 IV discontinued, intact, bleeding controlled, No redness/swelling at site. Pressure kj2 dressing applied. 01:00 No provider procedures requiring assistance completed. kj2 Administered Medications: 08/13 18:30 Drug: Acetaminophen PO 500 mg PO once Route: PO; db 23:51 Follow up: Response: No adverse reaction kj2 08/14 00:10 Drug: Rocephin IV 1 grams IV at calculated rate once; Given slow IV push per pharmacy kj2 instructions Route: IV; Rate: calculated rate; Site: left forearm; 01:03 Follow up: Response: No adverse reaction kj2 Medication: 01:00 VIS not applicable for this client. kj2 Outcome: 00:32 Discharge ordered by . john 01:00 Discharged to home kj2 01:00 Condition: stable 01:00 Discharge instructions given to patient, Instructed on discharge instructions, follow up and referral plans. Demonstrated understanding of instructions, follow-up care, medications, 01:13 Patient left the ED. kj2 Signatures: Dispatcher [employer] EDMS Yusef Brush PA PA cp Avtar Rai oe Marta Parson RN RN Ale Ronquillo, MARIELLA RN kj2 Corrections: (The following items were deleted from the chart) 08/13 23:17 22:28 Inserted saline lock: 22 gauge in right forearm, using aseptic technique. Blood oe collected. Flushed with 10 mL NS oe
--- NOTE | 2024-08-14 00:33 | EDPHYS ---
Physician Documentation [facility] Name: Rosina Odonnell Age: 89 yrs Sex: Female : 1935 Arrival Date: 08/13/2024 Time: 18:09 Bed 20 Private MD: ED Physician Yusef Echavarria HPI: 08/13 18:30 This 89 yrs old Female presents to ER via EMS with complaints of Hip Injury. cp 18:30 The patient or guardian reports an injury, pain. that occurred at home, sustained from cp a fall, while walking, There is no obvious deformity, The patient is able to ambulate with assistance. The patient is able to bear partial body weight. The complaints affect the right hip. 18:30 Onset: The symptoms/episode began/occurred today. cp 18:30 Associated signs and symptoms: Pertinent negatives: abdominal pain, chest pain, cp diarrhea, dysuria, fever, headache, weakness. Severity of symptoms: in the emergency department the symptoms are unchanged, despite home interventions. EMS reports patient sustained recent fall from standing. Historical: - Allergies: 18:15 Augmentin; db 18:15 PENICILLINS; db 18:15 Sulfa (Sulfonamide Antibiotics); db - PMHx: 18:15 Asthma; Hypertension; Multiple Sclerosis; Seizure; db - PSHx: 18:15 EGD; GALLBLADDER; hysterectomy; sinus surgery; db - Immunization history:: Adult Immunizations unknown. - Infectious Disease History:: Denies. - Social history:: Smoking status: Patient denies any tobacco usage or history of. ROS: 18:35 MS/extremity: Positive for pain, of the right hip, Negative for decreased range of cp motion, deformity, paresthesias, 18:35 Eyes: Negative for injury, pain, redness, and discharge, cp 18:35 Constitutional: Negative for body aches, chills, fever, poor PO intake, 18:35 ENT: Negative for drainage from ear(s), ear pain, sore throat, difficulty swallowing, difficulty handling secretions, 18:35 Cardiovascular: Negative for chest pain, 18:35 Respiratory: Negative for cough, shortness of breath, wheezing, 18:35 Abdomen/GI: Negative for abdominal pain, vomiting, diarrhea, constipation, 18:35 Back: Negative for radiated pain, 18:35 Neuro: Negative for altered mental status, dizziness, headache, weakness, 18:35 All other systems are negative, Exam: 18:45 Constitutional: The patient appears in no acute distress, alert, awake, cp non-diaphoretic, non-toxic, well developed, frail, uncomfortable, 18:45 Head/Face: Normocephalic, atraumatic. cp 18:45 Eyes: Periorbital structures: appear normal, Pupils: equal, round, and reactive to light and accomodation, Conjunctiva: normal, no exudate, no injection, Sclera: no appreciated abnormality, Lids and lashes: appear normal, bilaterally, 18:45 ENT: External ear(s): are unremarkable, Nose: is normal, Mouth: Lips: dry, Oral mucosa: moist, Posterior pharynx: Airway: no evidence of obstruction, patent, 18:45 Chest/axilla: Inspection: normal, Palpation: crepitus, is not appreciated, tenderness, is not appreciated, 18:45 Cardiovascular: Rate: normal, Rhythm: regular, Edema: is not appreciated, JVD: is not appreciated, 18:45 Respiratory: the patient does not display signs of respiratory distress, Respirations: normal, no use of accessory muscles, no retractions, labored breathing, is not present, Breath sounds: are clear throughout, no decreased breath sounds, no stridor, no wheezing, 18:45 Abdomen/GI: Inspection: abdomen appears normal, Bowel sounds: active, all quadrants, Palpation: abdomen is soft and non-tender, in all quadrants, 18:45 Back: pain, that is mild, ROM is painful, with all movement, vertebral tenderness, is not appreciated, 18:45 Musculoskeletal/extremity: Extremities: noted in the right hip: pain, tenderness, There is no evidence of decreased ROM, deformity, Vital Signs: 18:08 BP 137 / 68; Pulse 88; Resp 16; Temp 98.2; Pulse Ox 100% ; Weight 43.09 kg; Height 5 db ft. 6 in. ; Pain 9/10; 18:41 BP 118 / 92; Pulse 90; Resp 18; Pulse Ox 97% on R/A; db 20:02 BP 119 / 90; Pulse 92; Resp 18; Pulse Ox 97% on R/A; kj2 21:00 BP 121 / 72; Pulse 90; Resp 18; Pulse Ox 97% on R/A; kj2 22:00 BP 118 / 88; Pulse 70; Resp 18; Pulse Ox 100% on R/A; kj2 23:54 BP 97 / 70; Pulse 65; Resp 18; Pulse Ox 98% on R/A; kj2 12 00:59 BP 125 / 63; Pulse 68; Resp 18; Temp 98.2; Pulse Ox 100% on R/A; kj2 08/13 18:08 Body Mass Index 15.33 (43.09 kg, 167.64 cm) db 08/13 18:08 Pain Scale: Adult db MDM: 08/13 18:16 Medical Screening Exam initiated cp 08/14 00:31 Data reviewed: vital signs, nurses notes, lab test result(s), radiologic studies, CT cp scan, plain films, and as a result, I will discharge patient. 00:31 Differential diagnosis: hip fracture, intertrochanteric fracture, femoral neck cp fracture, femoral shaft fracture, contusion, spinal fracture. I considered the following discharge prescriptions or medication management in the emergency department Medications were administered in the Emergency Department. See MAR. Care significantly affected by the following chronic conditions: Hypertension, multiple sclerosis. Counseling: I had a detailed discussion with the patient and/or guardian regarding the historical points, exam findings, and any diagnostic results supporting the discharge/admit diagnosis, lab results, radiology results, to return to the emergency department if symptoms worsen or persist or if there are any questions or concerns that arise at home. Response to treatment: the patient's symptoms have markedly improved after treatment, and as a result, I will discharge patient. 08/13 18:23 Order name: Urinalysis w/ reflexes; Complete Time: 23:32 cp 08/13 23:32 Interpretation: Normal except: [facility] Extremely Turbid; UKET TRACE; UBLD Trace; UPROT 1+; cp UESTR 500; UWBC >50; URBC 5-10; UBACT 20-50; UWBC Clump Occasional. 08/13 19:11 Order name: Basic Metabolic Panel; Complete Time: 23:13 cp 08/13 23:13 Interpretation: Normal except: CL 112; BUN 39; GFR 69. cp 08/13 19:11 Order name: CBC with Diff; Complete Time: 23:13 cp 08/13 23:13 Interpretation: Normal except: RBC 2.70; HGB 8.3; HCT 25.5; MPV 7.2; EOSINOPHIL % 5.0. cp 08/13 23:32 Order name: Urine Culture EDMS 08/13 18:23 Order name: XRAY Pelvis; Complete Time: 20:03 cp 08/13 20:04 Interpretation: Report reviewed. cp 08/13 18:23 Order name: XRAY Hip RIGHT 2 view; Complete Time: 20:03 cp 08/13 20:04 Interpretation: Report reviewed. cp 08/13 19:31 Order name: Chest Abd Pelvis Wo Con; Complete Time: 20:03 EDMS 08/13 20:06 Interpretation: Report reviewed. cp 08/13 19:33 Order name: Head C Spine Mpr Wo Con; Complete Time: 20:03 EDMS 08/13 19:11 Order name: Labs collected and sent; Complete Time: 22:29 cp 08/13 19:11 Order name: IV; Complete Time: 22:29 cp Administered Medications: 08/13 18:30 Drug: Acetaminophen PO 500 mg PO once Route: PO; db 23:51 Follow up: Response: No adverse reaction kj2 08/14 00:10 Drug: Rocephin IV 1 grams IV at calculated rate once; Given slow IV push per pharmacy kj2 instructions Route: IV; Rate: calculated rate; Site: left forearm; 01:03 Follow up: Response: No adverse reaction kj2 Disposition Summary: 08/14/24 00:32 Discharge Ordered Notes: Location: Home cp Problem: new cp Symptoms: have improved cp Condition: Stable cp Diagnosis - Pain in right hip cp - UTI/ Urinary tract infection, site not specified cp - Fall on same level, unspecified cp Followup: cp - With: Private Physician - When: 2 - 3 days - Reason: Recheck today's complaints Discharge Instructions: - Discharge Summary Sheet cp - Fall Prevention in the Home, Adult cp - Urinary Tract Infection, Adult cp - Hip Pain cp Forms: - Medication Reconciliation Form cp - Antibiotic Education cp - Prescription Opioid Use cp - Patient Portal Instructions cp - Leadership Thank You Letter cp Prescriptions: - Celebrex 100 mg Oral Capsule - take 1 capsule ORAL route every 12 hours As needed take with food; 40 capsule; cp Refills: 0, Product Selection Permitted - cefpodoxime 200 mg Oral tablet - take 1 tablet ORAL route every 12 hours for 7 days with food; 14 tablet; cp Refills: 0, Product Selection Permitted Signatures: Dispatcher [employer] EDPR Yusef Brush PA PA cp Benton, Danielle, RN RN db Ale Grant RN RN kj2 Corrections: (The following items were deleted from the chart) 08/13 18:24 18:24 Urinalysis+U.LAB.BRZ ordered. EDMS EDMS 19:33 19:12 Head C Spine Cap Wo Con+CT.RAD.BRZ ordered. EDMS EDMS
[2024-08-14 04:16] VITALS: BP 125/63; TEMP 98.2; O2SAT 100
== END 2024-08-14 01:13 | disposition home or self-care (01) ==
LOC: ER 18:09
DX: M25.551 Pain in right hip (principal); N39.0 Urinary tract infection, site not specified; W18.30XA Fall on same level, unspecified, initial encounter; I10 Essential (primary) hypertension; G35 Multiple sclerosis
CPT/HCPCS: 87088; 85025; 81001; 87086; 80048; 36415; 87077; 87186; 70450; 71250; 72125; 74176; 72170; 73502; 96374; 99284; J0696

== ENCOUNTER 2024-08-21 10:04 | Inpatient (IN) | payer OTHER ==
[2024-08-21] MEDS ORDERED: NA CHLORIDE 0.9% 1,000 ML ONE (10:29)
--- NOTE | 2024-08-21 11:00 | RAD REPORT ---
EXAM: Chest Single View HISTORY: PAIN COMPARISON: 06/07/2024 FINDINGS: LUNGS/PLEURA: The lungs are clear. No pleural effusions or pneumothorax. No pulmonary edema. MEDIASTINUM: The mediastinal silhouette is within normal limits. CARDIAC: The cardiac silhouette is within normal limits. UPPER ABDOMEN: No significant abnormality. BONES: Right humerus with plate and screw. Left shoulder arthroplasty. LINES/TUBES/OTHER: N/A IMPRESSION: No evidence of acute cardiopulmonary disease.
[2024-08-21 11:34] LABS: Absolute Monocytes 0.8 K/uL (0.1-1.3); Absolute Neutrophil 12.1 K/uL (1.8-8.0); Basophils % 0.3 % (0-1.3); Hematocrit 19.1 % (36.0-45.0); Lymphocytes % 7.1 % (15.3-44.8); MCH 30.2 pg (27.0-35.0); MCHC 30.8 g/dL (32.0-36.0); MCV 97.8 fL (80-100); MPV 7.4 fL (7.6-11.3); Monocytes % 5.8 % (3.3-12.3); Neutrophils % 86.8 % (41.7-73.7); Platelets 380 thou/uL (152-406); RBC Red Blood Cell Count 1.95 M/uL (3.86-4.86); Red Cell Distribution Width 15.2 % (12.1-15.2)
[2024-08-21 11:39] LABS: PT Prothrombin Time 13.3 SECONDS (9.4-12.5); PTT, Activated Partial Thromb 23.9 SECONDS (24.3-36.9); Protime INR 1.19
[2024-08-21 11:45] LABS: Hemoglobin 5.9 g/dL (12.0-15.0)
--- NOTE | 2024-08-21 11:53 | RAD REPORT ---
EXAMINATION: CT HEAD WITHOUT CONTRAST CLINICAL INDICATION: Female, 89 years old.MENTAL STATUS CHANGE TECHNIQUE: Axial CT images from the skull base to the vertex without intravenous contrast. Coronal an d sagittal reformatted images were created from the data set. One or more of the following dose reduction techniques were used: Automated exposure control, adjustment of the mA and/or kV according to patient size, and/or iterative reconstruction. Unless otherwise specified, incidental findings do not require dedicated imaging follow-up. [id number]. COMPARISON: 01/19/24 FINDINGS: INTRACRANIAL: No acute intracranial hemorrhage. No hydrocephalus. No mass effect or midline shift. Mi ld chronic small vessel ischemic change. Cerebral atrophy. VASCULATURE: No visualized abnormalities in the arteries or dural venous sinuses. SCALP/SKULL: No significant soft tissue or osseous abnormalities. SINUSES: Status FESS. IMPRESSION: No acute intracranial abnormality.
[2024-08-21 11:54] LABS: ALT/SGPT < 14 U/L (13-56); AST/SGOT 16 U/L (15-37); Albumin 2.4 g/dL (3.4-5.0); Albumin/Globulin Ratio 0.8 (1.1-1.8); Alkaline Phosphatase 74 U/L (45-117); Anion Gap 19.3 mEq/L (5.0-15.0); BUN Blood Urea Nitrogen 43 mg/dL (7-18); Bicarbonate 18 mEq/L (21-32); Bilirubin Total 0.4 mg/dL (0.2-1.0); Creatine Phosphokinase 45 U/L (26-192); Glomerular Filtration Rate 46 ml/min (=/>90); Glucose Level 220 mg/dL (74-106); Lipase 39 U/L (13-75); Potassium 5.3 mEq/L (3.5-5.1); Protein, Total 5.4 g/dL (6.4-8.2); Sodium Level 140 mEq/L (136-145); Troponin High Sensitivity 8.5 pg/mL (<58.9)
--- NOTE | 2024-08-21 12:03 | RAD REPORT ---
EXAMINATION: CT ABDOMEN AND PELVIS WITH CONTRAST CLINICAL INDICATION: Female, 89 years old.nausea;Abd pain TECHNIQUE: CT abdomen and pelvis was performed, after the administration of IV contrast, as per [facility] protocol. Axial, sagittal and coronal reconstructions were obtained. One or more of the following dose reduction techniques were used: Automated exposure control, adjustment of the mA and/o r kV according to patient size, and/or iterative reconstruction. Unless otherwise specified, incidental findings do not require dedicated imaging follow-up. [id number]. COMPARISON: 06/04/2024 FINDINGS: LOWER CHEST: Aortic valve calcifications. LIVER: Normal in size and contour. No focal lesion. GALLBLADDER/BILE DUCT: Cholecystectomy. Extrahepatic common bile duct is within normal limits for age and postcholecystectomy state. PANCREAS: No significant abnormality. SPLEEN: Normal size. No focal lesion. ADRENALS: Normal; no mass. KIDNEYS AND URETERS: Bilateral renal lesions which are either benign in appearance or too small to ac curately characterize but statistically benign. GASTROINTESTINAL TRACT: Segmental wall thickening of the transverse colon and extending through the s plenic flexure is most consistent with a colitis. Moderate colonic stool. Large rectal stool burden. PERITONEUM: No ascites. LYMPH NODES: No lymphadenopathy. ABDOMINAL AORTA AND OTHER VESSELS: Normal caliber aorta and IVC. 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 URINARY BLADDER: Normal contour. REPRODUCTIVE ORGANS: No pathologic process MUSCULOSKELETAL: Remote pelvic fractures. Multilevel degenerative changes are present in the spine.. ADDITIONAL FINDINGS: None. IMPRESSION: Large colonic and rectal stool burden. The transverse colon, however, is decompressed and appears thi ckened. This is concerning for a colitis which could be infectious, inflammatory, or ischemic. No bowel obstruction.
[2024-08-21 12:24] LABS: Differential Total Cells Count 100; Lymphocytes 4 % (15-42); Monocytes 5 % (0-10); Segmented Neutrophils 91 % (40-80)
[2024-08-21 12:25] LABS: Blood Morphology Comment NOT SEEN (NOT SEEN); Platelet Estimate ADEQ
--- NOTE | 2024-08-21 12:32 | ER ---
Nurse's Notes [facility] Name: Rosina Odonnell Age: 89 yrs Sex: Female : 1935 Arrival Date: 08/21/2024 Time: 10:04 Bed 4 Private MD: Diagnosis: Anemia in other chronic diseases classified elsewhere;Severe sepsis with septic shock;Indeterminate colitis;Altered mental status, unspecified Presentation: 08/21 10:08 Chief complaint: Family reports AMS since yesterday. Coronavirus screen: At this time, hb the client does not indicate any symptoms associated with coronavirus-19. Ebola Screen: No symptoms or risks identified at this time. Initial Sepsis Screen: Does the patient meet any 2 criteria? No. Patient's initial sepsis screen is negative. Does the patient have a suspected source of infection? No. Patient's initial sepsis screen is negative. Risk Assessment: Do you want to hurt yourself or someone else? Patient reports no desire to harm self or others. Onset of symptoms was August 20, 2024. 10:08 Method Of Arrival: Wheelchair hb 10:08 Acuity: [place] 2 hb Historical: - Allergies: 10:09 Augmentin; hb 10:09 PENICILLINS; hb 10:09 Sulfa (Sulfonamide Antibiotics); hb - PMHx: 10:09 Asthma; Hypertension; Multiple Sclerosis; Seizure; hb - PSHx: 10:09 EGD; GALLBLADDER; hysterectomy; sinus surgery; hb - Immunization history:: Adult Immunizations unknown. - Infectious Disease History:: Denies. - Social history:: Smoking status: unknown. Screenin:50 [facility] ED Fall Risk Assessment (Adult) History of falling in the last 3 months, ph including since admission Yes- single mechanical fall (1 pt) Confusion or Disorientation Yes (5 pts) Intoxicated or Sedated No (0 pts) Impaired Gait Yes (1 pt) Mobility Assist Device Used Yes (1 pt) Altered Elimination No (0 pt) Score/Fall Risk Level 3 or more points = High Risk Oriented to surroundings, Maintained a safe environment, Educated pt \T\ family on fall prevention, incl call for assistance when getting out of bed, Assessed \T\ reinforced patient's understanding of fall precautions, Hourly rounding (assess needs \T\ fall precautionary measures) done, Used ambulatory aids as needed (educated on \T\ assisted with). Abuse screen: Denies threats or abuse. Denies injuries from another. Nutritional screening: No deficits noted. Tuberculosis screening: No symptoms or risk factors identified. Assessment: 10:52 General: Appears in no apparent distress. uncomfortable, slender, Behavior is ph cooperative, drowsy, quiet. Pain: Complains of pain in abdomen. Neuro: Level of Consciousness is obeys commands, confused, lethargic, listless, Oriented to person, place. Cardiovascular: Capillary refill < 3 seconds in bilateral fingers Patient's skin is warm and dry. Respiratory: Airway is patent Respiratory effort is even, unlabored, Respiratory pattern is regular, symmetrical. GI: Reports lower abdominal pain, upper abdominal pain, Patient currently denies diarrhea, nausea, vomiting. Derm: Skin is pale, Skin temperature is cool. Musculoskeletal: Circulation, motion, and sensation intact. 12:00 Reassessment: Patient appears in no apparent distress at this time. No changes from ph previously documented assessment. 13:00 Reassessment: Patient appears in no apparent distress at this time. No changes from ph previously documented assessment. Patient and/or family updated on plan of care and expected duration. Pain level reassessed. Noel placed per ERP order, pt cleaned of bowel incontinence, stool noted to be hard and formed, dark in color w/ some bright red blood noted. 13:44 Reassessment: report given to MARIELLA Arciniega. ph 14:00 Reassessment: Patient appears in no apparent distress at this time. No changes from ph previously documented assessment. Dr Kohler at bedside to speak w/ pt. Vital Signs: 10:08 BP 70 / 54; Pulse 88; Resp 24; Temp 97.1(TE); Pulse Ox 96% on R/A; hb 10:28 Weight 43.09 kg; hb 10:49 BP 90 / 57; Pulse 81; Resp 20; Pulse Ox 94% on R/A; ph 11:30 BP 94 / 49; Pulse 86; Resp 18; Pulse Ox 98% on R/A; ph 11:45 BP 87 / 52; Pulse 84; Resp 16; Pulse Ox 99% on R/A; ph 12:00 BP 94 / 54; Pulse 84; Resp 18; Pulse Ox 97% on R/A; ph 12:15 BP 92 / 58; Pulse 87; Resp 18; Pulse Ox 97% on R/A; ph 12:30 BP 108 / 68; Pulse 92; Resp 16; Pulse Ox 98% on R/A; ph 12:45 BP 78 / 55; Pulse 85; Resp 18; Pulse Ox 99% on R/A; ph 12:52 BP 108 / 68; Pulse 88; Resp 18; Temp 97.9; Pulse Ox 100% on R/A; ph 13:00 BP 87 / 52; Pulse 83; Resp 18; Pulse Ox 99% on R/A; ph 13:20 BP 94 / 53; Pulse 83; Resp 18; Temp 97; Pulse Ox 97% on R/A; ph 13:45 BP 91 / 54; Pulse 87; Resp 18; Pulse Ox 99% on R/A; ph 14:00 BP 90 / 58; Pulse 87; Resp 16; Pulse Ox 97% on R/A; ph ED Course: 10:05 Patient arrived in ED. hb 10:06 Jayna Brush PA is PHCP. cp 10:06 Brock Green MD is Attending Physician. cp 10:06 Monie Phipps, MARIELLA is Primary Nurse. ph 10:09 Triage completed. hb 10:09 Arm band placed on. hb 10:34 Chest Single View XRAY In Process Unspecified. EDMS 10:35 Missed attempt(s): 22 gauge in left forearm. Bleeding controlled, band aid applied, ph catheter tip intact. Missed attempt(s): 20 gauge in left antecubital area. Bleeding controlled, band aid applied, catheter tip intact. 10:40 Inserted saline lock: 22 gauge in left forearm, using aseptic technique. Flushed with ph 10 mL NS. 10:51 Patient has correct armband on for positive identification. Bed in low position. Call ph light in reach. Side rails up X2. Client placed on continuous cardiac and pulse oximetry monitoring. NIBP monitoring applied. vehicle monitor technician on. Door closed. Noise minimized. Warm blanket given. 11:25 Inserted saline lock: 20 gauge in left forearm, using aseptic technique. ,using aseptic hb technique. US GUIDED Blood collected. Flushed with 10 mL NS. 11:49 CT Head Brain wo Cont In Process Unspecified. EDMS 11:51 CT Abd/Pelvis - IV Contrast Only In Process Unspecified. EDMS 12:12 Type And Screen Sent. ph 12:[address] BENEDICT WITH [facility] FOR PATIENT CONSULTATION. eb 12:26 Type And Screen Sent. hb 12:31 Matthieu Kohler MD is Hospitalizing Provider. cp 12:52 No provider procedures requiring assistance completed. Noel cath inserted, using ph sterile technique, 16 Fr., by mo, balloon inflated, to gravity drainage, urine specimen collected. returned yani urine. Patient tolerated well. Patient admitted, IV remains in place. 13:29 XRAY Hip RIGHT 2 view In Process Unspecified. EDMS Administered Medications: 10:30 Drug: NS 0.9% IV (30 ml/kg) 30 ml/kg IV at bolus once; Sepsis Protocol; to be given as ph a bolus over 90 minutes Route: IV; Rate: bolus; Site: left forearm; 12:00 Follow up: Response: No adverse reaction; IV Status: Completed infusion; IV Intake: ph 1250ml 13:11 Drug: Rocephin IV 1 grams IV at calculated rate once; Given slow IV push per pharmacy ph instructions Route: IV; Rate: calculated rate; Site: left antecubital; 13:45 Follow up: Response: No adverse reaction; IV Status: Completed infusion; IV Intake: 50mlph 13:11 Drug: metroNIDAZOLE IVPB 500 mg 100 ml IVPB once over 30 mins Volume: 100 ml; Route: ph IVPB; Infused Over: 30 mins; Site: left forearm; 13:45 Follow up: Response: No adverse reaction; IV Status: Completed infusion; IV Intake: ph 100ml 13:11 Drug: Pantoprazole IVP 40 mg IVP once Route: IVP; Site: left antecubital; ph 13:12 Follow up: Response: No adverse reaction ph 13:11 Drug: Pantoprazole IVP 40 mg IVP once Route: IVP; Site: left antecubital; ph 13:12 Follow up: Response: No adverse reaction ph 16:36 Not Given (administered in ICU): pantoprazole8 mg/hr IV at 25 ml/hr continuous; ph (Standard dilution is 80 mg in 250 mL NS) Medication: 10:51 VIS not applicable for this client. ph Intake: 12:00 IV: 1250ml; Total: 1250ml. ph 13:45 IV: 100ml; Total: 1350ml. ph 13:45 IV: 50ml; Total: 1400ml. ph Outcome: 12:32 Decision to Hospitalize by Provider. cp 14:10 Admitted to ICU accompanied by nurse, accompanied by christofer, via stretcher, room 4, on ph monitor, with chart, Report called to MARIELLA Arciniega 14:10 Condition: unchanged 14:10 Instructed on the need for admit, 14:11 Patient left the ED. eb Signatures: Dispatcher [employer] Monie Cooper RN RN ph Jayna Brush PA PA cp Baxter, Heather, RN RN Ratan Eldridge Corrections: (The following items were deleted from the chart) 13:11 13:11 metroNIDAZOLE IVPB 500 mg 100 ml IVPB in left antecubital over 30 mins ph ph 13:18 10:48 NS 0.9% IV (30 ml/kg) 1292.7 ml IV at bolus in left forearm ph ph 13:18 12:30 Response: No adverse reaction; IV Status: Completed infusion; IV Intake: 1250ml phph
--- NOTE | 2024-08-21 12:32 | EDPHYS ---
Physician Documentation [facility] Name: Rosina Odonnell Age: 89 yrs Sex: Female : 1935 Arrival Date: 08/21/2024 Time: 10:04 Bed 4 Private MD: ED Physician Brock Green HPI: 08/21 10:12 This 89 yrs old Female presents to ER via Wheelchair with complaints of Altered Mental cp Status. 10:12 The patient presents with confusion. cp 10:12 Onset: The symptoms/episode began/occurred yesterday, and became worse today. cp 10:12 Possible causes: unknown. Associated signs and symptoms: Pertinent positives: abdominal cp tenderness. Patient's baseline: Neuro: alert and fully oriented, Motor: no deficits, Ambulation: walks with assist only, Speech: normal. Historical: - Allergies: 10:09 Augmentin; hb 10:09 PENICILLINS; hb 10:09 Sulfa (Sulfonamide Antibiotics); hb - PMHx: 10:09 Asthma; Hypertension; Multiple Sclerosis; Seizure; hb - PSHx: 10:09 EGD; GALLBLADDER; hysterectomy; sinus surgery; hb - Immunization history:: Adult Immunizations unknown. - Infectious Disease History:: Denies. - Social history:: Smoking status: unknown. ROS: 10:15 Neuro: Positive for altered mental status, cp 10:15 Constitutional: History per HPI cp 10:15 Constitutional: Negative for fever, 10:15 Abdomen/GI: Positive for abdominal tenderness, Negative for vomiting, diarrhea, constipation, 10:15 Unable to obtain ROS due to altered mental status, Exam: 10:20 Constitutional: The patient appears in no acute distress, alert, awake, cp non-diaphoretic, non-toxic, well developed, frail, uncomfortable, appears ill 10:20 Head/Face: Normocephalic, atraumatic. cp 10:20 Eyes: Pupils: equal, round, and reactive to light and accomodation, Conjunctiva: normal, no exudate, no injection, Sclera: no appreciated abnormality, Lids and lashes: appear normal, bilaterally, 10:20 ENT: External ear(s): are unremarkable, Nose: is normal, Mouth: Lips: dry, Oral mucosa: dry, Posterior pharynx: Airway: no evidence of obstruction, patent, erythema, is not appreciated, exudate, is not appreciated, 10:20 Neck: ROM/movement: is normal, is supple, without pain, no range of motions limitations, 10:20 Chest/axilla: Inspection: normal, Palpation: is normal, no crepitus, no tenderness, 10:20 Cardiovascular: Rate: normal, Rhythm: regular, Edema: is not appreciated, JVD: is not appreciated, 10:20 Respiratory: the patient does not display signs of respiratory distress, Respirations: labored breathing, is not present, shallow respirations, that is mild, Breath sounds: bronchial sounds, are not appreciated, decreased breath sounds, that are mild, throughout, stridor, is not appreciated, wheezing: is not appreciated, 10:20 Abdomen/GI: Inspection: abdomen appears normal, Bowel sounds: active, all quadrants, Palpation: soft, in all quadrants, moderate abdominal tenderness, in the right lower quadrant and left lower quadrant, rebound tenderness, is not appreciated, involuntary guarding, is not appreciated, 10:20 Skin: cellulitis, is not appreciated, no rash present. 10:20 Neuro: Orientation: to person, Mentation: responsive to voice slow to respond, 11:14 ECG was reviewed by the Attending Physician. cp 12:00 : Rectal exam: Stool: soft, black colored, cp Vital Signs: 10:08 BP 70 / 54; Pulse 88; Resp 24; Temp 97.1(TE); Pulse Ox 96% on R/A; hb 10:28 Weight 43.09 kg; hb 10:49 BP 90 / 57; Pulse 81; Resp 20; Pulse Ox 94% on R/A; ph 11:30 BP 94 / 49; Pulse 86; Resp 18; Pulse Ox 98% on R/A; ph 11:45 BP 87 / 52; Pulse 84; Resp 16; Pulse Ox 99% on R/A; ph 12:00 BP 94 / 54; Pulse 84; Resp 18; Pulse Ox 97% on R/A; ph 12:15 BP 92 / 58; Pulse 87; Resp 18; Pulse Ox 97% on R/A; ph 12:30 BP 108 / 68; Pulse 92; Resp 16; Pulse Ox 98% on R/A; ph 12:45 BP 78 / 55; Pulse 85; Resp 18; Pulse Ox 99% on R/A; ph 12:52 BP 108 / 68; Pulse 88; Resp 18; Temp 97.9; Pulse Ox 100% on R/A; ph 13:00 BP 87 / 52; Pulse 83; Resp 18; Pulse Ox 99% on R/A; ph 13:20 BP 94 / 53; Pulse 83; Resp 18; Temp 97; Pulse Ox 97% on R/A; ph 13:45 BP 91 / 54; Pulse 87; Resp 18; Pulse Ox 99% on R/A; ph 14:00 BP 90 / 58; Pulse 87; Resp 16; Pulse Ox 97% on R/A; ph MDM: 10:06 Medical Screening Exam initiated 11:00 Differential Diagnosis: CVA, electrolyte abnormality, hypoglycemia, intracranial bleed, cp pneumonia, seizure, sepsis, volume depletion, GI bleed. 12:15 Data reviewed: vital signs, nurses notes, lab test result(s), EKG, radiologic studies, CT scan, plain films, I have discussed the patient's presentation/case with the attending Emergency Department Physician; and as a result, I will admit patient. 12:35 I considered the following discharge prescriptions or medication management in the emergency department Medications were administered in the Emergency Department. See MAR. 12:35 Management of patient was discussed with the following: Primary Care Provider: DR Kohler will admit and consult with DR Watters, GI, will see patient and requests prep for EGD. Independent interpretation of the following test(s) in the Emergency Department EKG: See my EKG interpretation above. Care significantly affected by the following chronic conditions: Hypertension, seizures, MS. Post IV fluid administration reassessment for Sepsis: Client prescribed 30 mL/kg IVF. Sepsis focused reassessment complete. Heart: Regular rate/rhythm noted. Lungs: Noted to be clear bilaterally. Current vital signs reviewed: systolic pressure above 90 Neuro: Neurological examination improved from previous exam. Counseling: I had a detailed discussion with the patient and/or guardian regarding the historical points, exam findings, and any diagnostic results supporting the discharge/admit diagnosis, lab results, radiology results, the need for further work-up and treatment in the hospital. Response to treatment: the patient's symptoms have markedly improved after treatment, and as a result, I will admit patient. 08/21 10:10 Order name: Blood Culture Adult (2) 08/21 10:10 Order name: CBC with Diff; Complete Time: 12:26 cp 08/21 11:53 Interpretation: Normal except: WBC 14.00; RBC 1.95; HGB 5.9; HCT 19.1; MCHC 30.8; MPV cp 7.4; ROMULO% 86.8; LYM% 7.1; NEUT A 12.1. 08/21 10:10 Order name: CMP; Complete Time: 11:56 cp 08/21 12:05 Interpretation: Normal except: K 5.3; CL 108; CO2 18; ANION GAP 19.3; GLUC 220; BUN 43; cp CRE 1.14; GFR 46; TP 5.4; ALB 2.4; A/G 0.8. 12 10:10 Order name: Lactate w/ 2H reflex if indic.; Complete Time: 11:53 cp 08/21 11:54 Interpretation: Abnormal: LAC 6.5. 08/21 10:10 Order name: Protime (+inr); Complete Time: 11:53 08/21 10:10 Order name: Ptt, Activated; Complete Time: 11:53 08/21 10:10 Order name: Urinalysis w/ reflexes; Complete Time: 14:02 08/21 10:10 Order name: Lipase; Complete Time: 11:56 cp 08/21 10:10 Order name: CK; Complete Time: 11:56 08/21 10:10 Order name: Troponin High Sensitivity; Complete Time: 11:56 08/21 10:10 Order name: Influenza Screen (a \T\ B); Complete Time: 14:02 08/21 10:10 Order name: SARS RAPID; Complete Time: 14:02 08/21 10:31 Order name: Glucose, Ancillary Testing; Complete Time: 10:34 EDIL 08/21 10:34 Interpretation: Reviewed. 08/21 11:45 Order name: Type And Screen 08/21 11:48 Order name: Manual Differential; Complete Time: 12:26 EDMS 08/21 11:55 Order name: Ghost Lactate-NO COLLECT Timer; Complete Time: 14:02 EDIL 08/21 12:12 Order name: Packed RBC Leukored EDIL 08/21 12:31 Order name: Ova And Parasites 08/21 12:31 Order name: Rotavirus Antigen cp 08/21 12:31 Order name: Stool Culture 08/21 12:31 Order name: CDIFF cp 08/21 13:05 Order name: Hematocrit EDMS 08/21 13:05 Order name: Hemoglobin EDMS 08/21 13:05 Order name: Basic Metabolic Panel EDMS 08/21 13:05 Order name: Basic Metabolic Panel EDMS 08/21 13:05 Order name: CBC with Automated Diff EDMS 08/21 13:05 Order name: CBC with Automated Diff EDMS 08/21 13:05 Order name: Lipase EDMS 08/21 13:05 Order name: Lipase EDMS 08/21 13:05 Order name: Liver (Hepatic) Function EDMS 08/21 13:05 Order name: Liver (Hepatic) Function EDMS 08/21 10:10 Order name: Chest Single View XRAY; Complete Time: 11:53 cp 08/21 10:10 Order name: CT Head Brain wo Cont; Complete Time: 11:54 cp 08/21 11:54 Interpretation: Report reviewed. cp 08/21 11:27 Order name: CT Abd/Pelvis - IV Contrast Only; Complete Time: 12:05 cp 08/21 12:31 Order name: XRAY Hip RIGHT 2 view; Complete Time: 14:02 cp 08/21 10:10 Order name: EKG; Complete Time: 10:11 cp 08/21 10:10 Order name: Accucheck; Complete Time: 10:34 cp 08/21 10:10 Order name: Cardiac monitoring; Complete Time: 10:49 cp 08/21 10:10 Order name: EKG - Nurse/Tech; Complete Time: 11:49 cp 08/21 10:10 Order name: IV Saline Lock - Large Bore; Complete Time: 11:49 cp 08/21 10:10 Order name: Labs collected and sent; Complete Time: 11:49 cp 08/21 10:10 Order name: O2 Per Protocol; Complete Time: 10:49 cp 08/21 10:10 Order name: O2 Sat Monitoring; Complete Time: 10:49 cp 08/21 10:10 Order name: Vital Signs; Complete Time: 10:49 cp 08/21 12:11 Order name: Noel; Complete Time: 12:51 cp EC:14 Rate is 82 beats/min. Rhythm is regular. MA interval is normal. QRS interval is normal. cp QT interval is normal. T waves are Inverted in lead aVR. Interpreted by me. Reviewed by me. Administered Medications: 10:30 Drug: NS 0.9% IV (30 ml/kg) 30 ml/kg IV at bolus once; Sepsis Protocol; to be given as ph a bolus over 90 minutes Route: IV; Rate: bolus; Site: left forearm; 12:00 Follow up: Response: No adverse reaction; IV Status: Completed infusion; IV Intake: ph 1250ml 13:11 Drug: Rocephin IV 1 grams IV at calculated rate once; Given slow IV push per pharmacy ph instructions Route: IV; Rate: calculated rate; Site: left antecubital; 13:45 Follow up: Response: No adverse reaction; IV Status: Completed infusion; IV Intake: 50mlph 13:11 Drug: metroNIDAZOLE IVPB 500 mg 100 ml IVPB once over 30 mins Volume: 100 ml; Route: ph IVPB; Infused Over: 30 mins; Site: left forearm; 13:45 Follow up: Response: No adverse reaction; IV Status: Completed infusion; IV Intake: ph 100ml 13:11 Drug: Pantoprazole IVP 40 mg IVP once Route: IVP; Site: left antecubital; ph 13:12 Follow up: Response: No adverse reaction ph 13:11 Drug: Pantoprazole IVP 40 mg IVP once Route: IVP; Site: left antecubital; ph 13:12 Follow up: Response: No adverse reaction ph 16:36 Not Given (administered in ICU): pantoprazole8 mg/hr IV at 25 ml/hr continuous; ph (Standard dilution is 80 mg in 250 mL NS) Disposition: 08/22 11:44 Critical Care:. cp Disposition Summary: 08/21/24 12:32 Hospitalization Ordered Notes: Hospitalization Status: Inpatient Admission cp Provider: Matthieu Kohler cp Location: Intensive Care Unit cp Condition: Guarded cp Problem: new cp Symptoms: have improved cp Bed/Room Type: Standard cp Room Assignment: 4-(08/21/24 13:09) eb Diagnosis - Anemia in other chronic diseases classified elsewhere cp - Severe sepsis with septic shock cp - Indeterminate colitis cp - Altered mental status, unspecified cp Forms: - Medication Reconciliation Form cp - SBAR form cp - Leadership Thank You Letter cp Critical care time excluding procedures: 11:44 Critical care time: Bedside Care: 7 minutes, Consultation: 25 minutes, Family cp Intervention: 5 minutes. Total time: 37 minutes Signatures: Dispatcher [employer] EDMS Monie Phipps RN RN ph Yusef Brush PA PA cp Baxter, Heather, RN RN Ratna Eldridge Corrections: (The following items were deleted from the chart) 08/21 10:11 10:10 BLOOD CULTURE*+BA.LAB.BRZ ordered. EDMS EDMS 10:11 10:10 CBC+H.LAB.BRZ ordered. EDMS EDMS 10:11 10:10 COMPREHENSIVE METABOLIC PANEL+C.LAB.BRZ ordered. EDMS EDMS 10:11 10:10 LACTATE+C.LAB.BRZ ordered. EDMS EDMS 10:11 10:10 PROTIME (+INR)+COAG.LAB.BRZ ordered. EDMS EDMS 10:11 10:10 PTT, ACTIVATED+COAG.LAB.BRZ ordered. EDMS EDMS 10:11 10:10 Urinalysis+U.LAB.BRZ ordered. EDMS EDMS 10:11 10:10 LIPASE+C.LAB.BRZ ordered. EDMS EDMS 10:11 10:10 CREATINE PHOSPHOKINASE+C.LAB.BRZ ordered. EDMS EDMS 10:11 10:10 Troponin High Sensitivity+C.LAB.BRZ ordered. EDMS EDMS 10:11 10:10 Influenza Screen (A \T\ B)+BA.LAB.BRZ ordered. EDMS EDMS 10:11 10:10 SARS-COV-2 Antigen Rapid+I.LAB.BRZ ordered. EDMS EDMS 12:02 12:02 BB Add On+BB.LAB.BRZ ordered. EDMS EDMS 12:35 12:35 BB Add On+BB.LAB.BRZ ordered. EDMS EDMS 13:09 12:32 cp eb 13:16 13:05 Packed RBC Leukored ordered. EDMS EDMS 13:16 13:06 ABO/RH typing ordered. EDMS EDMS 13:16 13:06 Antibody Screen ordered. EDMS EDMS
[2024-08-21] MEDS ORDERED: CEFTRIAXONE 1000 MG/VIAL ONE (12:55)
[2024-08-21] MEDS ORDERED: NA CHLORIDE 0.9% 250 ML ONE (12:55)
[2024-08-21] MEDS ORDERED: PANTOPRAZOLE 40 MG INJ ONE (12:55)
[2024-08-21] MEDS ORDERED: NA CHLORIDE 0.9% 50 ML ONE (12:56)
[2024-08-21] MEDS ORDERED: METRONIDAZOLE 500mg IVPB 500 MG/100 ML BAG IV ONE (12:56)
[2024-08-21 12:57] LABS: SARS-CoV-2 Antigen CONTROL BLUE LINE VIS/BG OK; SARS-CoV-2 Antigen Rapid Res Negative (Negative)
[2024-08-21] MEDS ORDERED: ONDANSETRON 4 MG/2 ML VIAL ONE (12:58)
[2024-08-21] MEDS ORDERED: NA CHLORIDE 0.9% 250 ML IV SCH (13:00)
[2024-08-21 13:07] LABS: Specific Gravity 1.029 (1.005-1.030); Sqamous Epithelial <5 /HPF (None Seen); Transitional Epithelial <5 /HPF (None Seen); Urine Bacteria <20 /HPF (<20); Urine Bilirubin NEGATIVE (Negative); Urine Blood Negative (Negative); Urine Clarity Clear (Clear); Urine Color Light-Yellow (Yellow); Urine Culture Reflex Order NOT NEEDED; Urine Glucose NEGATIVE (Negative); Urine Ketones NEGATIVE (Negative); Urine Microscopic Reflex YN ORDER UMIC; Urine Mucus Slight /HPF (None Seen); Urine Nitrite NEGATIVE (Negative); Urine Protein TRACE (Negative); Urine RBC <5 /HPF (None Seen); Urine Urobilinogen Normal (Normal); Urine WBC <5 /HPF (<5)
--- NOTE | 2024-08-21 13:32 | RAD REPORT ---
EXAMINATION: Hip Right 2 View CLINICAL INDICATION: Female, 89 years old. PAIN RIGHT COMPARISON: Same day CT FINDINGS: No acute fracture. Remote right obturator ring fracture. No malalignment/dislocation. No significant focal degenerative change. Other: n/a IMPRESSION: No acute osseous abnormality.
[2024-08-21] MEDS ORDERED: PANTOPRAZOLE INJ 80 MG in NA CHLORIDE 0.9% 250 ML IV SCH (14:00)
[2024-08-21] MEDS ORDERED: D5 0.45 NS 1,000 ML IV SCH (14:00)
[2024-08-21] MEDS ORDERED: ALBUTEROL 2.5 MG/3 ML NEB SOL NEB PRN (14:08)
[2024-08-21] MEDS: PANTOPRAZOLE INJ 80 MG in NA CHLORIDE 0.9% 250 ML IV SCH (14:44)
[2024-08-21 15:25] VITALS: BMI 15.7
[2024-08-21] MEDS: METRONIDAZOLE 500mg IVPB 500 MG/100 ML BAG IV SCH (17:03)
[2024-08-21] MEDS: NA CHLORIDE 0.9% 250 ML ONE (17:40)
[2024-08-21] MEDS: levETIRAcetam 500 MG TAB PO SCH (20:05)
[2024-08-21] MEDS: Mupirocin NASAL 2 APPL/1 GM TUBE NAS SCH (20:07)
[2024-08-21] MEDS: DULERA 100/5 (MOMETASONE/FORMOTEROL) INHALER IH SCH (20:08)
[2024-08-21] MEDS: CEFTRIAXONE 1,000 MG in NA CHLORIDE 0.9% 50 ML IVPB SCH (20:09)
[2024-08-21] MEDS: FUROSEMIDE 20 MG/ 2ML VIAL IV ONE (21:53)
[2024-08-21] MEDS: MORPHINE 2 MG/ML SYR IV PRN (22:10)
--- NOTE | 2024-08-21 22:34 | HP ---
Date of Admission: 08/21/2024 Chief Complaint: Altered mental status. History Of Present Illness: This is an 89-year-old female patient who was brought into emergency [facility] with complaints of altered mental status by her family and after she was evaluated, the patient was diagnosed as having severe sepsis with septic shock and acute upper GI bleeding and after initial ma tiffanie, I was contacted requesting admission to the hospital and patient was admitted to ICU, so I came out to emergency room to see the patient. The patient actually has responded to the treatment w hen she came in to the emergency room. Upon further questioning, patient is also having some abdomin al pain in last few days and she is having black tarry stool also that was noted in the emergency [facility] after she came to ER. She denies any nausea, vomiting. No hematemesis. Allergies: AUGMENTIN CAUSING ITCHING, SULFA CAUSING ITCHING. Medications At Home: She takes Orcas, albuterol inhaler, carvedilol 6.25 mg 2 times a day, Vitamin D 3 2000 units daily, Senokot S 2 tablets 2 times a day, fluticasone nasal spray 1 spray each nostril 2 times a day, Advair inhaler 1 puff 2 times a day, hyoscyamine 0.125 mg 3 times a day as needed, grabiel dronate 150 mg once a month, levetiracetam, levocetirizine 5 mg daily, levothyroxine 50 mcg daily, me clizine as needed, mirtazapine 15 mg daily at bedtime, Zofran p.r.n., pregabalin 150 mg daily, trazod one 50 mg takes 0.5 to 1 tablet at bedtime, valsartan 160 mg 2 times a day. Social History: Negative for smoking and alcohol use. Review of Systems: GI: As mentioned above. Constitutional: Generalized weakness. All other systems reviewed and negative. Past Medical History: Significant for history of recurrent urinary tract infection and she recently took antibiotic as prescribed from emergency room about a week ago. Insomnia, hypertension, asthma, osteoarthritis at multiple sites diverticulosis, gastroesophageal reflux disease, multiple sclerosis, hypothyroidism, hyperlipidemia, rosacea, prior history of anemia with GI bleeding. Past Surgical History: Significant for sinus surgery, removal of benign breast tumor, hysterectomy, shoulder surgery, and toe surgery. Family History: Father had subdural hematoma. Mother had hypertension. Physical Examination: Vital Signs: When she came to emergency room, initial blood pressure was 70/54, pulse 88, respirator y rate 24, temperature 97.1, oxygen saturation 96% on room air. Weight 43.09 kg, height 5 feet 6 inc hes. General: The patient appears weaker than normal, extremely pale looking, not in any respiratory dist ress. Answers questions appropriately. HEENT: Head atraumatic, normocephalic. Conjunctivae nonerythematous. Sclerae white. Mouth, no thr ush or edema noted. Ears/Nose, no mass, lesion, discharge noted. Neck: Supple. No JVD, lymph nodes, bruit, thyromegaly noted. Lungs: Bilateral good equal air entry. Clear to auscultation. No rhonchi. No rales. Heart: Normal heart sounds, no murmur or gallop. Abdomen: Soft. Bowel sounds normal. No guarding, rigidity, distention. No rebound tenderness, but patient has mild diffuse tenderness all over her abdomen. Extremities: No leg edema. No calf tenderness. Skin: No rash, ulcer, cellulitis. Lymphatics: No lymph node enlargement in neck, supraclavicular, infraclavicular region. Neuro: No focal neurological deficit. Chest: Unremarkable. External Genitalia: Deferred. Rectal: Deferred. Laboratory Data: WBC 14, hemoglobin 5.9, platelets 380. Sodium 140, potassium 5.3, chloride 108, bi carb 18, BUN 43, creatinine 1.14, glucose 220. Lactic acid 6.5. Liver function tests unremarkable. Lipase 39. Urinalysis negative. COVID-19 test negative. Chest x-ray, no acute cardiopulmonary ervin nges. CAT scan of the head was negative for any acute intracranial changes. CAT scan of abdomen pel vis with contrast shows large colonic rectal stool burden. Transverse colon is, however, decompresse d and appears thickened concerning for colitis, which could be infectious. No evidence of bowel obst ruction. Evidence of remote pelvis fracture and degenerative changes. Hip x-ray was negative for an y acute bony abnormality. Impression: 1.Severe sepsis with septic shock. 2.Acute blood loss anemia. 3.Upper gastrointestinal bleeding. 4.Colitis. 5.Rule out Clostridium difficile colitis. 6.Hypertension. 7.Hyperlipidemia. 8.Hypothyroidism. 9.Multiple sclerosis. 10.Diverticulosis. 11.Osteoarthritis, multiple sites. 12.Mild persistent asthma. 13.Gastroesophageal reflux disease. 14.Seizure disorder. Plan: We will go ahead and admit the patient to hospital for further evaluation and management of th is problem. The patient is appropriate for inpatient and [facility] We will go ahead and admit the patient to intensive care unit. For severe sepsis with septic nancy ck, patient has received IV fluid per sepsis protocol in the emergency room and now we will continue maintenance fluid. Empiric antibiotic, ceftriaxone and metronidazole, was started in the emergency r oom and we will continue that. The patient possibly has colitis as noted on the CAT scan and she has mild diffuse abdominal tenderness. There is no evidence of any acute abdomen. We will go ahead and send stool for C difficile and continue current empiric antibiotics. For her acute blood loss anemi a, it appears to be from upper GI bleeding and we will go ahead and give her 3 units of PRBC blood tr ansfusion. After 2 units of PRBC blood transfusion, we will give 20 mg of Lasix IV x1 dose and after 3rd unit is completed, we will get posttransfusion hemoglobin for followup. IV Protonix drip will b e given and GI consultation has been requested from Dr. Watters, market editor, who is security control assessor. The patient will need upper endoscopy. Hopefully that can be done either tomorrow or day after tomor row. For DVT prophylaxis, SCD was ordered. For hypertension, no need for further intervention. We will not give any antihypertensive medication at this point, but at an appropriate time, we will rest art it. For hyperlipidemia, no need for further intervention. For hypothyroidism, we will continue levothyroxine per order and no need for further intervention. For seizure, we will continue her leve tiracetam per order. Total time spent today was 90 minutes including review of last office visit record from 08/15/2024, r meka of last hospital admission record from 06/05/2024, communication with the emergency room physic lynn today, review of emergency room visit record, performing today's evaluation and management. I ye ve communicated with the patient in presence of nurse in the emergency room regarding her advance dir ective and in the event of cardiopulmonary arrest she does not want any heroic measures like CPR, def ibrillation, or ventilator support, and let the God and nature take its course and to keep her comfor table, so DNR order was confirmed and written in the chart. ANH/RIGO Voice ID: [id number]
--- NOTE | 2024-08-22 00:51 | RAD REPORT ---
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 COMPARISON: XR Chest 08/21/2024. FINDINGS: 1 view of the chest (AP portable projection) was obtained. Prior films were compared. There is mild hyperinflation. Mediastinum: The cardiomediastinal silhouette appears normal in size and shape. There is a left upper extremity PICC line tip within the cavoatrial junction in good position. Lungs: There is reticular nodular densities throughout the lung suggesting the possibility of chronic lung changes. Heart: The heart is normal in size. Thoracic aorta: The thoracic aorta demonstrate to be tortuous with intimal calcification. Pulmonary vasculature: The pulmonary vasculature is normal in distribution. Pleura: The costophrenic angles demonstrate to be sharp. Osseous structures: The bony structures demonstrate ORIF proximal right humerus. Significant degenera tive changes right glenohumeral joint and/or prior right anatomical neck fracture. Reversed left shoulder arthroplasty. Other: External EKG leads within the [id number] limits diagnosis. IMPRESSION: Left upper extremity PICC line in good position. Reticulonodular densities throughout the lung suggesting the possibility of chronic lung changes. Electronically signed by: Norman Bella MD 08/21/2024 11:49 PM [employer]PER[employer] Due to temporary technical issues with the PACS/Linea reporting system, reports are being narciso d by the in-house radiologist without review as a courtesy to ensure prompt reporting the interpreting radiologist is fully responsible for the content of the report. Transcribed Date/Time: 08/22/2024 12:50 AM
[2024-08-22] MEDS: NA CHLORIDE 0.9% 250 ML ONE (01:21)
[2024-08-22] MEDS: LEVOTHYROXINE SOD 0.05 MG TABLET PO SCH (05:48)
[2024-08-22 06:26] LABS: Absolute Lymphocytes (CBC) 1.9 K/uL (0.7-4.9); Absolute Monocytes 1.5 K/uL (0.1-1.3); Basophils % 0.2 % (0-1.3); Hematocrit 30.8 % (36.0-45.0); Hemoglobin 10.2 g/dL (12.0-15.0); Lymphocytes % 9.4 % (15.3-44.8); MCHC 33.2 g/dL (32.0-36.0); MCV 93.5 fL (80-100); MPV 7.1 fL (7.6-11.3); Monocytes % 7.2 % (3.3-12.3); Neutrophils % 83.2 % (41.7-73.7); Platelets 269 thou/uL (152-406); Red Cell Distribution Width 14.5 % (12.1-15.2)
[2024-08-22 06:40] LABS: ALT/SGPT < 14 U/L (13-56); AST/SGOT 16 U/L (15-37); Albumin 2.2 g/dL (3.4-5.0); Albumin/Globulin Ratio 0.8 (1.1-1.8); Alkaline Phosphatase 58 U/L (45-117); Anion Gap 8.7 mEq/L (5.0-15.0); BUN Blood Urea Nitrogen 43 mg/dL (7-18); Bicarbonate 22 mEq/L (21-32); Bilirubin Direct 0.2 mg/dL (0-0.2); Bilirubin Indirect, Calculated 0.3 mg/dL (0.2-0.8); Bilirubin Total 0.5 mg/dL (0.2-1.0); Globulin 2.7 g/dL (2.3-3.5); Glomerular Filtration Rate 64 ml/min (=/>90); Glucose Level 126 mg/dL (74-106); Lipase 26 U/L (13-75); Potassium 3.7 mEq/L (3.5-5.1); Protein, Total 4.9 g/dL (6.4-8.2); Sodium Level 137 mEq/L (136-145)
--- NOTE | 2024-08-22 07:09 | PN ---
Date of Progress Note: 08/22/2024 Subjective: The patient was seen this morning for followup. She was lying in bed in ICU. No new co mplaints or problems reported. No nausea, vomiting. Had 1 black tarry stool overnight. Objective: Vital Signs: Reviewed. Last temperature 98.1, pulse 102, respiratory rate 24, blood pre ssure 95/55, oxygen saturation 100% on room air. HEENT: Unremarkable. Lungs: Clear to auscultation. No rhonchi, rales. Heart: Sounds normal. Abdomen: Soft. Bowel sounds normal. No guarding, rigidity, distention. Mild tenderness noted in a bdomen, diffusely scattered, but overall better today than yesterday. No rebound tenderness. No dis tention. Extremities: No leg edema. Laboratory Data: White count 20.5, hemoglobin 10.2, and this is after 3 units of PRBC blood transfus ion, and platelets 269. Chemistry result pending. Last night, lactic acid level came down to 3, upo n admission it was 6.5. Stool for C. diff is pending. Impression: 1.Severe sepsis with septic shock. 2.Colitis. 3.Acute blood loss anemia. 4.Upper GI bleeding. Plan: We will go ahead and continue IV Protonix drip. The patient received 1 dose of Lasix 20 mg IV after second unit of PRBC was completed. There is no evidence of fluid overload on clinical exam to day. The patient has maintained adequate oxygenation on room air. We will continue empiric antibiot ic which is ceftriaxone and metronidazole IV, and I will go ahead and start her on oral vancomycin co nsidering increased WBC count. We will continue current inhaler for her asthma. Follow up with leonor roenterologist, Dr. Watters. The patient will need EGD which will be done hopefully today or tomorrow. We will repeat blood work lanie rrow and consult Physical Therapy. ANH/MODL Voice ID: [id number] Report ID: [id number]
[2024-08-22] MEDS: D5 0.9 NS 1,000 ML IV SCH (07:26)
[2024-08-22] MEDS: VANCOMYCIN HCL 125 MG CAPSULE PO SCH (07:27)
[2024-08-22 09:32] LABS: CDIFF INTERNAL NEG CONTROL White Background (WHITE BKGD); STOOL CONSISTENCY Liquid/Semi-Solid
[2024-08-22 09:33] LABS: C.diff Antigen/Toxin Ag pos : Tox neg (NEG : NEG)
[2024-08-22] MEDS: PANTOPRAZOLE INJ 80 MG in NA CHLORIDE 0.9% 250 ML IV SCH (11:35)
[2024-08-22 11:53] LABS: Blood Morphology Comment NOT SEEN (NOT SEEN); Platelet Estimate ADEQ; White Blood Cell Scan OK (OK)
[2024-08-22] MEDS ORDERED: LIDOCAINE 1% MPF 5 ML VIAL ONE (13:29)
[2024-08-22] MEDS ORDERED: propofoL 200 MG/20 ML VIAL IV ONE (13:29)
[2024-08-22] MEDS: NA CHLORIDE 0.9% 500 ML ONE (13:49)
[2024-08-22] MEDS: EPINEPHRINE 1 MG/ML VIAL ONE (13:50)
[2024-08-22] MEDS: NA CHLORIDE 0.9% 250 ML IV ONE (16:44)
--- NOTE | 2024-08-22 18:25 | CON ---
Reason For Consultation: GI bleed with melena and anemia with hemoglobin of 5.9. History Of Present Illness: The patient is an 89-year-old white female with history of hypertension, asthma, osteoarthritis, insomnia, diverticulitis, gastroesophageal reflux disease, multiple sclerosis, hypothyroidism, hyperlipidemia, rosacea, anemia, and GI bleeds in the past. The patient presented to the hospital with complaints of altered mental status as per family and was diagnosed with severe sepsis. Her white count was elevated and it was told that she had dark stools in the emergency room. On further questioning today, the patient states that the stools have been black for some time. The patient had been in the emergency room approximately a week ago. The patient also had some slight abdominal pain with the black tarry stools as well. White count is elevated at 14, has increased to 20.[address] scan revealing possible colitis in the transverse colon with thickening of the wall. Otherwise, large amount of stool noted throughout colon. C. diff test came back positive as well. Hemoglobin down to 5.9 on admission. She reports prior GI bleed event with EGD at this hospital unable to reach ulcer and transfered to tertiary center for further evaluation / therapy at that time. Past Medical History: Significant for hypertension, asthma, osteoarthritis, insomnia, diverticulitis, gastroesophageal reflux disease, multiple sclerosis, hypothyroidism, hyperlipidemia, rosacea, anemia, GI bleeds in the past, sinus surgery, removal of benign breast tumor, hysterectomy, shoulder surgery, and toe surgery. Medications: See list. Allergies: AMOXICILLIN, POTASSIUM CLAVULANATE, AUGMENTIN, AND SULFA, THEY ALL CAUSE ITCHING. Social History: She is , 2 children. No tobacco. No alcohol. Family History: Father of subdural hematoma after fallen off an operating table she reports. Mother with myocardial infarction, also had a history of hypertension as per chart review. Review of Systems: The patient has melena, weakness, confusion, which is improved since hospital admission. Some lower abdominal pain it appears the patient had with bleeding, cramping with possible upper abdominal pain. The patient is confused and does not know exactly where the pain is at this time, but does not have the pain now nor any nausea, vomiting, blood in bowels, heartburn, reflux. She denies any chest pain, shortness of breath, seizure, syncope, muscle aches, joint aches, backaches. Somewhat anxious. No depression at all. Physical Examination: Vital Signs: She is 5 feet 6 inches, 98 pounds, BMI of 15.8 kg/m2. Temperature 97.6, pulse 76, respirations 18, blood pressure 81/43 up to 102/47. In the endoscopy room, she had blood pressure of 126/60. General: She is an elderly female, lying in bed, in no acute distress. HEENT: Normocephalic, atraumatic. Anicteric. Pupils equal, round, and reactive to light touch. She does look somewhat pale. Neck: Supple. No masses. Respirations: Clear on anterior exam only. Cardiac: Regular rate and rhythm. Gastrointestinal: Positive bowel sounds. Abdominal exam is soft, nondistended, nontender. No peritoneal or Ovalles sign. No rebound. Extremities: No clubbing, cyanosis, or edema. 2+ pulses. Neuro: Alert and oriented x2, but able to move all extremities. Laboratory Data: The patient is C. diff positive, antigen positive, toxin A negative, but the antigen is positive. COVID test is negative. She has a white count of 14.9 yesterday, up to 20.5 today, hemoglobin of 5.9 yesterday, up to 10.2 after 2 to 3 units of packed RBCs, hematocrit today of 30.8, MCV of 94, platelet count of 269, polys of 83%, lymphocytes 9%, monocytes 7%. PT of 13.3, INR of 1.2, PTT of 23.9. Sodium 137, potassium 3.7, bicarb 110, BUN of 43, creatinine of 0.9, glucose 126, lactic acid of 6.5 yesterday down to 3.0 today, calcium 7.8, total bilirubin 0.2, direct bilirubin 0.2, indirect bilirubin 0.3, AST of 16, ALT less than 14, alkaline phosphatase 58, total protein 4.9, albumin 2.2, lipase 26. Creatine kinase of 45. Troponin I of 8.5, which is normal. UA was negative for trace protein. CT of abdomen and pelvis revealed large amount of stool throughout colon with thickening of transverse colon consistent with colitis, probable colitis. The patient has C. diff positive stool test. Impression: 1. Anemia. Hemoglobin at 5.9 yesterday on admission, now up to 10.2 after blood transfusion. 2. Melena. 3. Sepsis. White count 14, up to 20,500 overnight with lactate of 6.5, which is elevated, decreasing to 3.0 with therapy. The patient should continue IV antibiotics and IV fluids. This is probably due to C. diff, maybe also other etiologies such as from other unidentified area of sepsis, but mainly from C. diff colitis. 4. C. diff colitis. CT abdomen and pelvis reveals thickening of the transverse colon consistent with this, but also stool testing is positive for this Clostridium difficile antigen. 5. History of insomnia, hypertension, asthma, osteoarthritis, diverticulosis, diverticulitis, gastroesophageal reflux disease, multiple sclerosis, hypothyroidism, hyperlipidemia, rosacea, anemia with GI bleeds in the past, sinus surgery, removal of benign breast tumor, hysterectomy, shoulder surgery, and toe surgery. Recommendations: 1. Continue IV fluids, IV antibiotics, resuscitation. 2. Serial H and H, and transfuse p.r.n. 3. C. diff isolation. 4. Questran to p.o. vancomycin and IV Flagyl. 5. Keep the patient n.p.o. for procedure today. 6. Proceed with urgent EGD. 7. Continue IV PPI therapy. DARSHANA/RIGO Voice ID: [id number] Report ID: [id number] JOSE
[2024-08-22] MEDS: HYDROCODONE/APAP 5/325 MG TAB PO PRN (18:59)
[2024-08-22 19:21] LABS: Hemoglobin 9.7 g/dL (12.0-15.0)
[2024-08-23] MEDS: ONDANSETRON 4 MG/2 ML VIAL IV PRN (03:10)
[2024-08-23 06:04] LABS: Absolute Basophils 0.1 K/uL (0-0.5); Absolute Eosinophils 0.1 K/uL (0-0.5); Absolute Neutrophil 12.3 K/uL (1.8-8.0); Basophils % 0.4 % (0-1.3); Eosinophils % 0.4 % (0-4.4); Hematocrit 27.7 % (36.0-45.0); Hemoglobin 9.1 g/dL (12.0-15.0); MCHC 32.8 g/dL (32.0-36.0); MCV 94.5 fL (80-100); MPV 7.1 fL (7.6-11.3); Monocytes % 6.7 % (3.3-12.3); Neutrophils % 79.5 % (41.7-73.7); Nucleated Red Blood Cells % 0.1 % (0-0); Platelets 233 thou/uL (152-406); RBC Red Blood Cell Count 2.93 M/uL (3.86-4.86); Red Cell Distribution Width 14.6 % (12.1-15.2)
[2024-08-23 06:15] LABS: Anion Gap 9.4 mEq/L (5.0-15.0); Magnesium 1.9 mg/dL (1.6-2.4); Potassium 4.4 mEq/L (3.5-5.1)
[2024-08-23] MEDS: ENSURE CLEAR 200 ML CAN PO SCH (14:00)
[2024-08-23] MEDS: JUVEN PACKET PO SCH (20:36)
--- NOTE | 2024-08-23 22:58 | PN ---
Date of Progress Note: 08/23/2024 Subjective: The patient was seen this morning for followup. She was lying in bed in ICU, not in any distress. No new complaints or problems reported by her. Her abdominal pain is much better. Physical Examination: Vital Signs: Reviewed. Last temperature this morning 97, pulse 75, respiratory rate 16, blood press ure 114/58, oxygen saturation 97% on room air. HEENT: Unremarkable. Lungs: Clear to auscultation. Heart: Sounds normal. Abdomen: Soft. Bowel sounds normal. No guarding, rigidity. No tenderness. Extremities: No leg edema. Laboratory Data: WBC count is 15.4, hemoglobin 9.1, platelets 233. Sodium 138, potassium 4.4, chlor byron 113, bicarb 20, BUN 28, creatinine 0.67, glucose 98, magnesium 1.9. Impression: 1.Colitis, Clostridium difficile, initial episode. 2.Severe sepsis with septic shock, improved. 3.Acute blood loss anemia. 4.Upper gastrointestinal bleeding. 5.Duodenal ulcer with bleeding. Plan: We will go ahead and continue current IV Protonix. Treat with antibiotics, which are ceftriax one and metronidazole IV and oral vancomycin. The patient is on clear liquid diet. We will continue that. No need for any further blood transfusion. Physical Therapy to work with the patient. I did communicate with the patient this morning and give her recommendation regarding transfer to [facility] in [place] for higher level of care because of the EGD finding and she was agreeable. The patient's was notified regarding this and we did initiate the transfer process, and I d id communicate with the hospitalist who has accepted the patient, and the patient will be transferred in stable condition via ground ambulance once bed is available. ANH/MODL Voice ID: [id number] Report ID: [id number]
[2024-08-23 22:59] VITALS: TEMP 97.7
[2024-08-23 23:02] VITALS: O2SAT 98
[2024-08-23 23:04] VITALS: BP 145/84
[2024-08-24] MEDS ORDERED: PANTOPRAZOLE INJ 80 MG in NA CHLORIDE 0.9% 250 ML IV SCH (02:00)
--- NOTE | 2024-08-24 07:00 | DS ---
Date of Discharge: 08/23/2024 Disposition: The patient was transferred to [facility] in [place] via ground ambulance. Physical Examination: See copy of today's progress note dictation for more details. Laboratory Data: Upon admission, WBC count was 14, hemoglobin 5.9, platelets 380 and this was on 04/2024. Yesterday, white count 20.5, hemoglobin 10.2, platelets 269 and this was after 3 units of P RBC blood transfusion. Today, white count 15.4, hemoglobin 9.1, platelets 233. For chemistry, today , sodium 138, potassium 4.4, chloride 113, bicarb 20, BUN 28, creatinine 0.67, glucose 98. Magnesium 1.9. Upon admission, lactic acid level was 6.5 and after IV fluid resuscitation and antibiotic, rep eat lactic acid level was 3. Upon admission, sodium 140, potassium 5.3, chloride 108, bicarb 18, BUN 43, creatinine 1.14, glucose 220. Liver function test unremarkable. Stool for Clostridium difficil e antigen was positive and toxin was negative. COVID-19 test negative. Blood cultures remain negati ve. Urine culture negative. Hospital Course: This is an 89-year-old female patient who came into emergency room with altered men cyndi status. Please see dictated H and P for more information. The patient was evaluated in emergenc y room. Initially, her blood pressure was low 70/54. When she first came into ER, she had abdominal pain and diffuse abdominal tenderness. CAT scan of the abdomen had shown evidence of large amount o f stool in her colon, but also evidence of colitis involving transverse colon. There was no free air . No evidence of pneumonia or urinary tract infection. She recently finished outpatient antibiotic therapy for urinary tract infection, so with this I was concerned about possibility of Clostridium di fficile colitis. IV fluid per sepsis protocol was given in the emergency room, and she was started o n ceftriaxone and metronidazole, and admitted to intensive care unit. The patient's hemoglobin was 5 .9, so she was given 3 units of PRBC blood transfusion. She also was noted to have black tarry stool , so we were concerned about acute upper GI bleeding and acute blood loss anemia. After 2 units of P RBC blood transfusion, she was given 20 mg of Lasix IV x1 dose. There was no evidence of any fluid o verload during this hospitalization. After third unit of PRBC blood transfusion, her hemoglobin came up and never required any more further blood transfusion. She never required any vasopressor medica tion. Her mental status has improved back to normal. Abdominal pain and tenderness have resolved. Day after admission since white count went up to 20,000, we decided to add vancomycin 125 mg p.o. q.6 hours. GI consultation was obtained from Dr. 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 He was not able to p ass the scope through the stricture, but he was able to visualize beyond the stricture. In the duode nal bulb area, she was noted to have rather large duodenal ulcer with dark-colored blood covering the base of the ulcer and he was able to inject that area with epinephrine. The patient continued to ye ve black tarry stool during her hospitalization here in ICU and today when I saw her hemodynamically she was stable and we downgraded her and transferred her to medical floor, but because there was no r oom available, she has continued to stay in ICU as overflow patient. As per my discussion with gastr oenterologist, Dr. Watters, he recommended for the patient to be transferred to [place] to [facility] for higher level of care for this duodenal stricture/ulcer in the duodenal bulb area, as we will not be able to provide any further intervention at our hospital, and all these details were discussed with the patient this morning. She was agreeable details. After all the arrangements co mpleted, and also communicated with the hospitalist at the receiving facility, the patient was transf erred later during evening hours in stable condition. Final Diagnoses: 1.Severe sepsis with septic shock. 2.Clostridium difficile colitis, initial episode. 3.Acute blood loss anemia. 4.Upper gastrointestinal bleeding. 5.Hypertension. 6.Hyperlipidemia. 7.Multiple sclerosis. 8.Hypothyroidism. 9.Diverticulosis. 10.Osteoarthritis . 11.Asthma. 12.Gastroesophageal reflux disease. 13.Seizure disorder. Total time spent today was 60 minutes. ANH/MODL Voice ID: [id number] Report ID: [id number]
--- NOTE | 2024-08-26 16:08 | EKG ---
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
== END 2024-08-23 23:25 | disposition short-term general hospital (02) | DRG 871 ==
LOC: ER 10:04 → 3RD-ICU 12:57
PROVIDERS: ADMIT Internal Medicine; ATTEND Internal Medicine
PROC: 02HV33Z Insertion of Infusion Device into Superior Vena Cava, Percutaneous Approach (ICD-10-PCS; 2024-08-21)
PROC: 30233N1 Transfusion of Nonautologous Red Blood Cells into Peripheral Vein, Percutaneous Approach (ICD-10-PCS; 2024-08-21)
PROC: 0DB78ZX Excision of Stomach, Pylorus, Via Natural or Artificial Opening Endoscopic, Diagnostic (ICD-10-PCS; 2024-08-22)
PROC: 0DB68ZX Excision of Stomach, Via Natural or Artificial Opening Endoscopic, Diagnostic (ICD-10-PCS; 2024-08-22)
PROC: 0DB58ZX Excision of Esophagus, Via Natural or Artificial Opening Endoscopic, Diagnostic (ICD-10-PCS; principal; 2024-08-22 13:30)
DX: A41.9 Sepsis, unspecified organism (principal); K26.4 Chronic or unspecified duodenal ulcer with hemorrhage; R65.21 Severe sepsis with septic shock; B37.81 Candidal esophagitis; K31.5 Obstruction of duodenum; D62 Acute posthemorrhagic anemia; A04.72 Enterocolitis due to Clostridium difficile, not specified as recurrent; I10 Essential (primary) hypertension; K52.3 Indeterminate colitis; E78.5 Hyperlipidemia, unspecified; E03.9 Hypothyroidism, unspecified; J45.909 Unspecified asthma, uncomplicated; G35 Multiple sclerosis; K29.70 Gastritis, unspecified, without bleeding; Q40.2 Other specified congenital malformations of stomach; G40.909 Epilepsy, unspecified, not intractable, without status epilepticus; D63.8 Anemia in other chronic diseases classified elsewhere; Z66 Do not resuscitate; Z88.0 Allergy status to penicillin; Z88.2 Allergy status to sulfonamides; Z88.1 Allergy status to other antibiotic agents; Z11.52 Encounter for screening for COVID-19; Z79.890 Hormone replacement therapy; Z90.710 Acquired absence of both cervix and uterus
CPT/HCPCS: 36415; 36430; 51702; 70450; 71045; 74177; 80048; 80053; 80076; 81001; 82550; 82565; 82947; 83605; 83690; 83735; 84484; 85014; 85018; 85025; 85610; 85730; 86850; 86900; 86901; 86920; 86922; 87040; 87045; 87046; 87177; 87209; 87324; 87425; 87804; 87811; 88305; 88312; 93005; 99285; J0171; J0696; J1940; J2003; J2270; J2405; J2470; J2704; J3535; J7030; J7040; J7042; J7050; P9016; Q9967

== ENCOUNTER 2024-08-27 14:51 | Observation (INO) | payer OTHER ==
[2024-08-27 16:30] LABS: Absolute Basophils 0.1 K/uL (0-0.5); Absolute Eosinophils 0.4 K/uL (0-0.5); Absolute Lymphocytes (CBC) 1.5 K/uL (0.7-4.9); Absolute Monocytes 0.9 K/uL (0.1-1.3); Absolute Neutrophil 8.2 K/uL (1.8-8.0); Basophils % 1.2 % (0-1.3); Eosinophils % 3.2 % (0-4.4); Hematocrit 33.9 % (36.0-45.0); Hemoglobin 11.4 g/dL (12.0-15.0); Lymphocytes % 13.9 % (15.3-44.8); MCH 32.3 pg (27.0-35.0); MCHC 33.4 g/dL (32.0-36.0); MCV 96.7 fL (80-100); MPV 6.5 fL (7.6-11.3); Monocytes % 7.9 % (3.3-12.3); Neutrophils % 73.8 % (41.7-73.7); Nucleated Red Blood Cells % 0.1 % (0-0); Platelets 308 thou/uL (152-406); RBC Red Blood Cell Count 3.51 M/uL (3.86-4.86); Red Cell Distribution Width 14.6 % (12.1-15.2)
[2024-08-27 16:46] LABS: PT Prothrombin Time 12.5 SECONDS (9.4-12.5); PTT, Activated Partial Thromb 27.9 SECONDS (24.3-36.9); Protime INR 1.12
[2024-08-27 16:50] LABS: AST/SGOT 20 U/L (15-37); Albumin 2.5 g/dL (3.4-5.0); Albumin/Globulin Ratio 0.8 (1.1-1.8); Alkaline Phosphatase 60 U/L (45-117); Anion Gap 6.3 mEq/L (5.0-15.0); BUN Blood Urea Nitrogen 9 mg/dL (7-18); Bicarbonate 28 mEq/L (21-32); Bilirubin Total 0.3 mg/dL (0.2-1.0); Globulin 3.3 g/dL (2.3-3.5); Glomerular Filtration Rate 84 ml/min (=/>90); Glucose Level 106 mg/dL (74-106); Potassium 3.3 mEq/L (3.5-5.1); Protein, Total 5.8 g/dL (6.4-8.2); Sodium Level 144 mEq/L (136-145)
[2024-08-27 16:51] LABS: ALT/SGPT < 14 U/L (13-56); Bilirubin Direct < 0.2 mg/dL (0-0.2); Bilirubin Indirect, Calculated 0.1 mg/dL (0.2-0.8)
--- NOTE | 2024-08-27 18:41 | RAD REPORT ---
EXAM: CT brain without contrast HISTORY: MENTAL STATUS CHANGE COMPARISON: 08/21/2024, 01/19/2024 TECHNIQUE: Multiple contiguous axial images were obtained and a CT of the brain without contrast. Sag ittal and coronal reformats were performed. One or more of the following dose reduction techniques were used: Automated exposure control, adjust ment of the mA and/or kV according to patient size, and/or iterative reconstruction. FINDINGS: No evidence of hydrocephalus, intracranial hemorrhage, or extra-axial fluid collection. Mild brain atrophy with mild periventricular and deep white matter chronic microvascular ischemic ch anges present. No evidence of midline shift or areas of brain edema. The calvarium is intact. The visualized paranasal sinuses and mastoid air cells are essentially clear . Prior sinus surgery noted. IMPRESSION: No evidence of acute intracranial abnormality.
--- NOTE | 2024-08-27 19:02 | EDPHYS ---
Physician Documentation [facility] Name: Rosina Odonnell Age: 89 yrs Sex: Female : 1935 Arrival Date: 08/27/2024 Time: 14:51 Bed 15 Private MD: ED Physician Xavier Perez HPI: 08/27 19:41 This 89 yrs old Female presents to ER via EMS with complaints of Overdose. sb4 19:41 The patient presents to the emergency department with a possible overdose, found with sb4 pill organizer open with pills on bed, oxycodone. Context:. patient possibly took extra doses of prescribed oxycodone for pain management. she was responsive only to painful stimuli upon EMS arrival. they administered 10 mg of narcan total, some intranasal, some via IO. she is now alert to verbal stimuli. was recently discharged from [facility] after treatment of GIB secondary to ulcer. Historical: - Allergies: 15:29 Augmentin; cm10 15:29 PENICILLINS; cm10 15:29 Sulfa (Sulfonamide Antibiotics); cm10 - PMHx: 15:29 Asthma; Hypertension; Multiple Sclerosis; Seizure; cm10 - PSHx: 15:29 EGD; GALLBLADDER; hysterectomy; sinus surgery; cm10 - Immunization history:: Adult Immunizations unknown. - Infectious Disease History:: Denies. - Social history:: Smoking status: unknown. ROS: 19:41 Unable to obtain ROS due to altered mental status, sb4 Exam: 19:41 Head/Face: Normocephalic, atraumatic. ENT: Mucous membranes moist. Cardiovascular: sb4 Regular rate and rhythm with a normal S1 and S2. Respiratory: No increased work of breathing, no retractions or nasal flaring. Abdomen/GI: Soft, non-tender, no distension. Skin: Warm, dry with normal turgor. Normal color with no rashes, no lesions, and no evidence of cellulitis. 19:41 Constitutional: The patient appears frail, somnolent 19:41 Eyes: Pupils: pinpoint, bilaterally, 19:41 Abdomen/GI: Rectal exam: Stool: brown, 19:41 Neuro: Orientation: to person, Not oriented to place, time, situation, Vital Signs: 15:30 BP 154 / 110; Pulse 71; Resp 12; Temp 98.6(O); Pulse Ox 96% on 2 lpm NC; Weight 41.5 kg;cm10 15:30 BP 172 / 81; Pulse 83; Resp 19; Pulse Ox 97% on 3 lpm NC; cm10 16:00 BP 139 / 75; Pulse 72; Resp 21; Pulse Ox 99% on 3 lpm NC; cm10 16:30 BP 109 / 81; Pulse 82; Resp 23; Pulse Ox 99% on 3 lpm NC; cm10 17:00 BP 148 / 84; Pulse 80; Resp 16; Pulse Ox 100% on R/A; cm10 19:10 BP 116 / 60; Pulse 84; Resp 15; Pulse Ox 96% ; dd2 20:15 BP 112 / 66; Pulse 85; Resp 16; Pulse Ox 98% on R/A; dd2 21:20 BP 124 / 78; Pulse 82; Resp 16; Temp 98.4(A); Pulse Ox 95% on R/A; dd2 MDM: 15:02 Medical Screening Exam initiated sb4 19:43 Data reviewed: vital signs, nurses notes, EMS record, lab test result(s), EKG, sb4 radiologic studies, and as a result, I will admit patient. Consideration of Admission/Observation Patient was admitted/placed on observation. Management of patient was discussed with the following: Primary Care Provider: Dr. Kohler, agrees to admit. Counseling: I had a detailed discussion with the patient and/or guardian regarding the historical points, exam findings, and any diagnostic results supporting the discharge/admit diagnosis, lab results, radiology results, the need for further work-up and treatment in the hospital. 08/27 15:11 Order name: Acetaminophen; Complete Time: 16:53 sb4 08/27 15:11 Order name: Basic Metabolic Panel; Complete Time: 16:53 sb4 08/27 15:11 Order name: CBC with Diff; Complete Time: 16:53 sb4 08/27 15:11 Order name: ETOH Level; Complete Time: 16:53 sb4 08/27 15:11 Order name: Hepatic Function; Complete Time: 16:53 sb4 08/27 15:11 Order name: PT-INR; Complete Time: 16:53 sb4 08/27 15:11 Order name: Ptt, Activated; Complete Time: 16:53 sb4 08/27 15:11 Order name: Salicylate; Complete Time: 17:02 sb4 08/27 15:11 Order name: Urine Drug Screen sb4 08/27 15:11 Order name: UAM sb4 08/27 15:13 Order name: Type And Screen; Complete Time: 17:49 sb4 08/27 17:58 Order name: CT Head Brain wo Cont; Complete Time: 18:43 iw 08/27 15:11 Order name: EKG - Nurse/Tech; Complete Time: 17:14 sb4 08/27 15:11 Order name: IV Saline Lock; Complete Time: 16:00 sb4 08/27 15:11 Order name: Labs collected and sent; Complete Time: 16:23 sb4 EC:14 Rate is 83 beats/min. Rhythm is regular, Normal Sinus Rhythm. AL interval is normal at sb4 156 msec. QRS interval is normal at 82 msec. QT interval is normal at 394 msec. No Q waves. T waves are Normal. No ST changes noted. Clinical impression: Normal ECG. Interpreted by me. Reviewed by me. Administered Medications: No medications were administered Disposition: 19:44 Chart complete. sb4 Disposition Summary: 08/27/24 19:01 Hospitalization Ordered Notes: Hospitalization Status: Inpatient Admission sb4 Provider: Casey Kohler sb4 Condition: Fair sb4 Problem: new sb4 Symptoms: have improved sb4 Bed/Room Type: Standard sb4 Location: Telemetry/MedSurg (Inpatient)(08/27/24 22:28) lg3 Room Assignment: 215(08/27/24 22:28) lg3 Diagnosis - Accidental opioid overdose sb4 Forms: - Medication Reconciliation Form sb4 - SBAR form sb4 - Leadership Thank You Letter sb4 Signatures: Dispatcher [employer] EDMS Ifrah Delvalle, RN RN lg3 Lynnette Armstrong, MITZI PAJose M sb4 Fang Matos RN RN cm10 Corrections: (The following items were deleted from the chart) 15:11 15:11 ACETAMINOPHEN+C.LAB.BRZ ordered. EDMS EDMS 15:11 15:11 BASIC METABOLIC PANEL+C.LAB.BRZ ordered. EDMS EDMS 15:11 15:11 CBC+H.LAB.BRZ ordered. EDMS EDMS 15:11 15:11 ETHANOL+C.LAB.BRZ ordered. EDMS EDMS 15:11 15:11 HEPATIC FUNCTION+C.LAB.BRZ ordered. EDMS EDMS 15: 15:11 PROTIME (+INR)+COAG.LAB.BRZ ordered. EDMS EDMS 15: 15:11 PTT, ACTIVATED+COAG.LAB.BRZ ordered. EDMS EDMS 15: 15:11 SALICYLATE+C.LAB.BRZ ordered. EDMS EDMS 15: 15:11 URINE DRUG SCREEN+UC.LAB.BRZ ordered. EDMS EDMS 15: 15:11 Urinalysis W/Microscopic+U.LAB.BRZ ordered. EDMS EDMS 22:28 19:01 Intensive Care Unit sb4 lg3 22:28 19:01 sb4 lg3
--- NOTE | 2024-08-27 19:02 | ER ---
Nurse's Notes [facility] Name: Rosina Odonnell Age: 89 yrs Sex: Female : 1935 Arrival Date: 08/27/2024 Time: 14:51 Bed 15 Private MD: Diagnosis: Accidental opioid overdose Presentation: 08/27 15:30 Chief complaint: EMS states: CALLED TO PATIENT'S HOME DUE TO PATIENT BEING UNRESPONSIVE cm10 BUT BREATHING. UPON EMS ARRIVAL PT WAS ONLY AROUSABLE TO PAINFUL STIMULI. PT RECEIVED AT TOTAL OF 10MG OF NARCAN- 8MG INTRANASALLY AND 2MG VIA IO. PT ARRIVED AWAKE AND ALERT. PT NOTED TO HAVE BEEN INCONTINENT OF BOWEL. Coronavirus screen: Client denies travel out of the [place] in the last 14 days. Ebola Screen: Patient denies travel to an Ebola-affected area in the 21 days before illness onset. Initial Sepsis Screen: Does the patient meet any 2 criteria? No. Patient's initial sepsis screen is negative. Does the patient have a suspected source of infection? No. Patient's initial sepsis screen is negative. Risk Assessment: Do you want to hurt yourself or someone else? Unable to obtain. Onset of symptoms was August 27, 2024. Care prior to arrival: Medication(s) given: NARCAN 10MG IV initiated. IO TO THE LEFT PROXIMAL TIBIA Oxygen administered. via nasal cannula. 15:30 Method Of Arrival: EMS: [facility] cm10 15:30 Acuity: [place] 2 cm10 Triage Assessment: 15:30 General: Appears ill, Behavior is drowsy. Pain: Unable to use pain scale. Patient is cm10 unresponsive. Neuro: No deficits noted. Level of Consciousness is lethargic. Cardiovascular: No deficits noted. Patient's skin is warm and dry. Respiratory: No deficits noted. Airway is patent Respiratory effort is even, unlabored, Respiratory pattern is. Historical: - Allergies: 15:29 Augmentin; cm10 15:29 PENICILLINS; cm10 15:29 Sulfa (Sulfonamide Antibiotics); cm10 - PMHx: 15:29 Asthma; Hypertension; Multiple Sclerosis; Seizure; cm10 - PSHx: 15:29 EGD; GALLBLADDER; hysterectomy; sinus surgery; cm10 - Immunization history:: Adult Immunizations unknown. - Infectious Disease History:: Denies. - Social history:: Smoking status: unknown. Screenin:53 [facility] ED Fall Risk Assessment (Adult) History of falling in the last 3 months, cm10 including since admission No falls in past 3 months (0 pts) Confusion or Disorientation Yes (5 pts) Intoxicated or Sedated Yes (3 pts) Impaired Gait Yes (1 pt) Mobility Assist Device Used Yes (1 pt) Altered Elimination Yes (1 pt) Score/Fall Risk Level 3 or more points = High Risk Oriented to surroundings, Maintained a safe environment, Hourly rounding (assess needs \T\ fall precautionary measures) done. Abuse screen: Denies threats or abuse. Denies injuries from another. Nutritional screening: No deficits noted. Tuberculosis screening: No symptoms or risk factors identified. Assessment: 17:53 Reassessment: Patient appears in no apparent distress at this time. No changes from cm10 previously documented assessment. Patient states symptoms have not improved. Vital Signs: 15:30 BP 154 / 110; Pulse 71; Resp 12; Temp 98.6(O); Pulse Ox 96% on 2 lpm NC; Weight 41.5 kg;cm10 15:30 BP 172 / 81; Pulse 83; Resp 19; Pulse Ox 97% on 3 lpm NC; cm10 16:00 BP 139 / 75; Pulse 72; Resp 21; Pulse Ox 99% on 3 lpm NC; cm10 16:30 BP 109 / 81; Pulse 82; Resp 23; Pulse Ox 99% on 3 lpm NC; cm10 17:00 BP 148 / 84; Pulse 80; Resp 16; Pulse Ox 100% on R/A; cm10 19:10 BP 116 / 60; Pulse 84; Resp 15; Pulse Ox 96% ; dd2 20:15 BP 112 / 66; Pulse 85; Resp 16; Pulse Ox 98% on R/A; dd2 21:20 BP 124 / 78; Pulse 82; Resp 16; Temp 98.4(A); Pulse Ox 95% on R/A; dd2 ED Course: 15:00 Patient arrived in ED. eb 15:02 Lynnette Armstrong PA-C is PHCP. sb4 15:02 Xavier Perez MD is Attending Physician. sb4 15:29 Fang Matos, MARIELLA is Primary Nurse. cm10 15:35 Triage completed. cm10 15:35 Arm band placed on right wrist. Patient placed in an exam room, on a stretcher, on cm10 oxygen, on cut to length operator, on pulse oximetry. 15:35 Cleaned of incontinence. Linen changed. cm10 15:35 Patient has correct armband on for positive identification. Placed in gown. Bed in low cm10 position. Call light in reach. Side rails up X2. Provided Education on: ER PROCESS AND PROCEDURES.. Client placed on continuous cardiac and pulse oximetry monitoring. NIBP monitoring applied. grinder hardboard on. 16:00 Inserted saline lock: 22 gauge in right wrist, using aseptic technique. Flushed with 10 cm10 mL NS Missed attempt(s): 22 gauge in left forearm. upper arm. Bleeding controlled, band aid applied, catheter tip intact. 16:23 Initial lab(s) drawn, by me, sent to lab. em1 17:14 EKG done, by ED staff, reviewed by Lynnette Armstrong PA-C. cm10 18:35 CT Head Brain wo Cont In Process Unspecified. EDMS 19:01 Casey Kohler MD is Hospitalizing Provider. sb4 19:09 Report given to MARIELLA MALIK. cm10 21:10 HELENA GONZALEZ, RN is Primary Nurse. dd2 22:58 No provider procedures requiring assistance completed. dd2 08/28 01:01 Patient admitted, IV remains in place. dd2 Administered Medications: No medications were administered Medication: 08/27 17:54 VIS not applicable for this client. cm10 Outcome: 19:01 Decision to Hospitalize by Provider. sb4 08/28 01:01 Admitted to Med/surg accompanied by tech, via stretcher, with chart, dd2 Condition: stable Instructed on the need for admit, Demonstrated understanding of instructions, 01:01 Patient left the ED. dd2 Signatures: Dispatcher [employer] EDNC Shabbir Matos em1 Ratna Eldridge Sophia, PA-C PA-C sb4 Fang Matos RN RN cm10 HELENA GONZALEZ RN RN dd2
[2024-08-28] MEDS ORDERED: NALOXONE HCL 2 MG/2 ML VIAL IV PRN (00:56)
[2024-08-28 01:14] VITALS: BMI 15.3
[2024-08-28] MEDS: D5 0.9 NS 1,000 ML IV SCH (01:54)
[2024-08-28 12:57] VITALS: BP 142/71
[2024-08-28] MEDS: VANCOMYCIN HCL 125 MG CAPSULE PO SCH (13:03)
[2024-08-28 14:28] VITALS: O2SAT 92
[2024-08-28 15:50] LABS: Barbiturates NEGATIVE (NEGATIVE); Benzodiazepines NEGATIVE (NEGATIVE); Cocaine NEGATIVE (NEGATIVE); METHAMPHETAM NEGATIVE (NEGATIVE); Methadone NEGATIVE (NEGATIVE); Opiates NEGATIVE (NEGATIVE); Phencyclidine NEGATIVE (NEGATIVE); THC Cannibis NEGATIVE (NEGATIVE)
[2024-08-28 16:50] VITALS: TEMP 97.5
--- NOTE | 2024-08-28 18:31 | SS ---
Date of Discharge: 08/28/2024 Chief Complaint: Altered mental status. History Of Present Illness: This is an 89-year-old very pleasant female patient who was recently adm itted to our hospital few days ago with acute blood loss anemia, upper GI bleeding, and Clostridium d ifficile colitis, and the patient was admitted to our hospital with severe sepsis with septic shock. After her condition was stabilized, she also received 3 units of PRBC blood transfusion and Dr. 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 Yesterday, she was brought into our emergency room with altered mental status. She lives at home with her and from information that I gathered from emergency room provider, the patient was brought in via EMS with altered mental status and she received a total of 10 mg of Narca n for what was suspected to be drug overdose as she takes oxycodone at home as prescribed by her Pain Management physician, Dr. Rosales. After this use of Narcan, her condition improved and when I was communicating with the emergency room provider yesterday evening, original decision was to admit her to ICU as her condition had improved but not completely back to normal and subsequently around 9 p.m ., I was contacted by emergency room physician that the patient's condition has improved back to her baseline and there is no reason for her to go to ICU, so [facility]. When I saw her this morning, her son and [id number] were present in room with her. The patient denies any specific complaints, this morning, when I saw her. When I asked her if she took excess amount of pain medication, she denies that, but obviously that is our concern her could not tell us exactly how many doses of oxycodone she took since she came home from [facility] in [place]. So, at this point, we have no definite idea about the number of oxycodone that s he took in 24 hours or less than 24 hours' time that she was home from the hospital. Physical Examination: Vital Signs: Temperature 97.3, pulse 92, respiratory rate 16, blood pressure 118/53, and oxygen satu ration was recorded 90% at that time, this was 8 a.m. and when I saw her she was on 3 L nasal cannula oxygen, which was discontinued and her oxygen saturation on room air was 95% after oxygen was discon tinued. General: Awake, alert, oriented, not in distress. HEENT: Head atraumatic, normocephalic. Conjunctivae nonerythematous. Sclerae white. Mouth, no thr ush or edema noted. Ears/Nose, no mass, lesion, discharge noted. Neck: Supple. No JVD, lymph nodes, bruit, thyromegaly noted. Lungs: Bilateral good equal air entry. Clear to auscultation. No rhonchi. No rales. Heart: Normal heart sounds, no murmur or gallop. Abdomen: Soft, bowel sounds normal. No guarding, rigidity, tenderness, mass, hepatosplenomegaly, dis tention, or bruit noted. Extremities: No leg edema. No calf tenderness. Skin: Right posterior elbow has approximately 3 mm superficial open wound clean base. No evidence o f any discharge bleeding and no evidence of any redness surrounding this area. Her right buttock has 5-7 mm of area where she has loss of epidermal skin. Lymphatics: No lymph node enlargement in neck, supraclavicular, infraclavicular region. Neuro: No focal neurological deficit. Chest: Unremarkable. External Genitalia: Deferred. Rectal: Deferred. Laboratory Data: WBC 11.10, hemoglobin 11.4, platelets 308, sodium 144, potassium 3.3, chloride 113, bicarb 28, BUN 9, creatinine 0.68, glucose 106. Liver function tests unremarkable. Toxicology scre en: Salicylate less than 2.2. Acetaminophen less than 2.5. Alcohol less than 10. Rest of the test results pending. CAT scan of the head was negative for any acute intracranial changes. Hospital Course: After patient was evaluated in the emergency room, she was admitted to the hospital with this altered mental status, which was suspected to be due to drug overdose, specifically oxycod one. The patient is not able to tell us exactly how many tablets she took, if she took more than pre scribed amount, but that is my strong suspicion and her could not tell us either. From what I gathered information smalls that the patient's gets 2 weeks supply of medication in a pillbox ready for her and the patient takes this medication on her own and this definitely is a problem in p atients like her. I had a long discussion with the patient in presence of her son and [id number] w in the room today and explained to all of them that until unless proven otherwise her presentation to the hospital was due to drug overdose from oxycodone and we talked about need to have certain safe ty measures in place to avoid any fatal outcome as I explained it to the patient. The patient should not be in charge or should not have any control over her medications at all. She should not have ac cess to more than 1 particular dose that needs to be taken at that particular time, otherwise she nancy uld not have access to any extra medications and this can be handled either in form of having a pillb ox that has certain time designated in place that she is only able to open up at certain time and not at other times or better option would be to have a designated person in charge who gives her pain me dication at that particular time when the dose is due, so that way we are 100% sure that she is not t aking more than prescribed amount. So all these details were discussed with the patient and her fami ly member and they will look into it. I have also informed the patient and family that I will commun icate with her agricultural systems specialist, Dr. Rosales, to explain all these details and after I saw the patient, I did reach out to Dr. Rosales and explained all these details to him as well. I have also explained to patient and the patient's family that she should cut back on her oxycodone instead of 3 times a day, she should take only 1 tablet two times a day until she sees Dr. Rosales and I ye ve explained it to Dr. Rosales as well. Final Diagnoses: 1.Drug overdose, accidental. 2.Clostridium difficile colitis. 3.Stage II decubitus ulcer, right buttock. 4.Anemia due to acute upper gastrointestinal bleeding. 5.Hypertension. 6.Hyperlipidemia. 7.Hypothyroidism. 8.Multiple sclerosis. 9.Osteoarthritis, multiple sites. 10.Mild persistent asthma. 11.Gastroesophageal reflux disease. 12.Seizure disorder. Discharge Medications And Instructions: 1.Continue all prior home medication except following changes. a.Change oxycodone take 1 tablet by mouth two times a day. b.Start vancomycin 125 mg take 1 capsule by mouth every 6 hours for 1 week. c.Start pantoprazole 40 mg take 1 tablet by mouth two times a day for one month and 1 tablet by mout h once a day. 2.Follow up at my office on 08/31 or 09/01/2024. 3.Follow up with Dr. Watters in 2-3 weeks. 4.Follow up with Dr. Rosales as soon as possible, this coming week. 5.Patient's family to administer her pain medication dose and patient should not have access to her pain medications. 6.The patient was instructed to stop trazodone and use melatonin 5 mg daily at bedtime for insomnia. Total time spent today was 90 minutes including review of last hospital visit record from 08/21/2024, communication with emergency room provider, review of emergency room visit record, communication wit h family today, and Dr. Rosales and performing today's evaluation and management. ANH/MODL Voice ID: [id number] Report ID: [id number]
--- NOTE | 2024-08-29 14:43 | PN ---
The patient is an 89-year-old female who came in with altered mental status and she takes oxycodone. She was given Narcan in the emergency room for her change in mental status. She improved and she ye d a CT of the head, which was unremarkable and she was back to normal after her Narcan was given and it was presumed on this admission that the patient's status was secondary to perhaps a slight overdos e of the oxycodone, therefore Dr. Kohler correctly and rightfully changed the patient from admission to observation and the patient was discharged home yesterday on observation status. So, therefore I pr eugene this code 44. /MODL Voice ID: [id number] Report ID: [id number]
== END 2024-08-28 17:44 | disposition home or self-care (01) ==
LOC: ER 14:51 → INTOOBSV 19:30 → ERHOLD 19:30 → 2ND 23:14
PROVIDERS: ADMIT Internal Medicine; ATTEND Internal Medicine
DX: T40.2X1A Poisoning by other opioids, accidental (unintentional), initial encounter (principal); Y92.019 Unspecified place in single-family (private) house as the place of occurrence of the external cause; A04.72 Enterocolitis due to Clostridium difficile, not specified as recurrent; L89.312 Pressure ulcer of right buttock, stage 2; D50.0 Iron deficiency anemia secondary to blood loss (chronic); I10 Essential (primary) hypertension; E78.5 Hyperlipidemia, unspecified; E03.9 Hypothyroidism, unspecified; G35 Multiple sclerosis; M19.90 Unspecified osteoarthritis, unspecified site; J45.909 Unspecified asthma, uncomplicated; K21.9 Gastro-esophageal reflux disease without esophagitis; R56.9 Unspecified convulsions; Z88.0 Allergy status to penicillin; Z88.1 Allergy status to other antibiotic agents; Z88.2 Allergy status to sulfonamides
CPT/HCPCS: 87070 ×2; 85025; 80048; 36415; 86900; 86850; 87205 ×2; 85610; 86901; 80076; 85730; 80307; 70450; 80143; 80179; 82077; J7042; G0378

== ENCOUNTER 2024-09-16 19:45 | Inpatient (IN) | payer OTHER ==
[2024-09-16 21:51] LABS: Absolute Eosinophils 0.2 K/uL (0-0.5); Absolute Lymphocytes (CBC) 1.9 K/uL (0.7-4.9); Absolute Monocytes 0.7 K/uL (0.1-1.3); Absolute Neutrophil 4.1 K/uL (1.8-8.0); Basophils % 0.7 % (0-1.3); Eosinophils % 3.4 % (0-4.4); Hematocrit 30.2 % (36.0-45.0); Lymphocytes % 27.1 % (15.3-44.8); MCH 31.8 pg (27.0-35.0); MCHC 33.1 g/dL (32.0-36.0); MCV 96.2 fL (80-100); Monocytes % 9.5 % (3.3-12.3); Neutrophils % 59.3 % (41.7-73.7); Nucleated Red Blood Cells % 0.1 % (0-0); Platelets 287 thou/uL (152-406); RBC Red Blood Cell Count 3.14 M/uL (3.86-4.86); Red Cell Distribution Width 16.2 % (12.1-15.2)
[2024-09-16 21:52] LABS: Albumin/Globulin Ratio 0.7 (1.1-1.8)
--- NOTE | 2024-09-16 22:07 | RAD REPORT ---
EXAM: CT CHEST, ABDOMEN AND PELVIS WITHOUT CONTRAST CLINICAL INDICATION: Chest and abdominal pain TECHNIQUE: CT chest, abdomen and pelvis was performed, without IV contrast, as per department protoco l. Axial, sagittal and coronal reconstructions were obtained. One or more of the following dose reduction techniques were used: Automated exposure control, adjustment of the mA and/or kV according to the patient size, and/or iterative reconstruction. Unless otherwise specified, incidental findings do not require dedicated imaging follow-up. The lack of IV and oral contrast limits evaluation of the mediastinum, elliott, vessels, organs and julianna l. COMPARISON: July and August 2024 FINDINGS: Mild groundglass opacities right upper lobe. No mediastinal or hilar lymphadenopathy seen. Ascending aorta 4.3 cm. No pleural effusion. No pericardial effusion. Mild gastric distention Liver, spleen, adrenals ,kidneys and bladder appear grossly normal Atrophic pancreas There is no evidence of diverticulitis. Large amount of stool present throughout colon. Old pelvic fractures. IMPRESSION: Mild groundglass opacities right upper lobe indicative of a mild alveolitis. Large amount of stool present throughout colon. Mild gastric distention
[2024-09-16] MEDS ORDERED: LACTULOSE 20 GM/30 ML UCUP ONE (22:38)
[2024-09-16] MEDS ORDERED: HYDROCODONE/APAP 10/325 TAB ONE (22:38)
[2024-09-16] MEDS ORDERED: ONDANSETRON 4 MG (ODT) TAB ONE (22:38)
[2024-09-16] MEDS ORDERED: FUROSEMIDE 20 MG/ 2ML VIAL ONE (22:38)
--- NOTE | 2024-09-16 22:44 | ER ---
Nurse's Notes [facility] Name: Rosina Odonnell Age: 89 yrs Sex: Female : 1935 Arrival Date: 09/16/2024 Time: 19:45 Bed 6 Private MD: Casey Kohler C Diagnosis: Moderate CHF exacerbation, moderate constipation,;Acute on chronic combined systolic (congestive) and diastolic (congestive) heart failure Presentation: 09/16 20:24 Chief complaint: Patient states: SHORTNESS OF BREATH, SWELLING IN THE STOMACH AND LEGS. dd2 WENT TO THE URGENT CARE AND XRAY SHOWED FLUID AROUND HER HEART. RECENTLY D/C FROM THE HOSPITAL. Coronavirus screen: At this time, the client does not indicate any symptoms associated with coronavirus-19. Ebola Screen: No symptoms or risks identified at this time. Initial Sepsis Screen: Does the patient meet any 2 criteria? No. Patient's initial sepsis screen is negative. Does the patient have a suspected source of infection? No. Patient's initial sepsis screen is negative. Risk Assessment: Do you want to hurt yourself or someone else? Patient reports no desire to harm self or others. Onset of symptoms is unknown. 20:24 Method Of Arrival: Wheelchair dd2 20:24 Acuity: [place] 3 dd2 Triage Assessment: 20:29 General: Appears uncomfortable, Behavior is calm, cooperative, appropriate for age. dd2 Pain: Complains of pain in GENERALIZED JOINT PAIN. Neuro: [place] Agitation-Sedation Scale (RASS): 0 - Alert and Calm Level of Consciousness is awake, alert, obeys commands, Oriented to person, place, time, situation, Appropriate for age. GI: Abdomen is distended, Abd is rigid X 4 quads. 20:29 Respiratory: Reports shortness of breath at rest on exertion Airway is patent dd2 Respiratory effort is even, unlabored, Respiratory pattern is regular, symmetrical. Derm: +1 EDEMA LA FEET Reports SWELLING TO FEET, HANDS AND ABDOMEN. Historical: - Allergies: 20:29 Augmentin; dd2 20:29 PENICILLINS; dd2 20:29 Sulfa (Sulfonamide Antibiotics); dd2 - PMHx: 20:29 Asthma; Hypertension; Multiple Sclerosis; Seizure; dd2 - PSHx: 20:29 EGD; GALLBLADDER; hysterectomy; sinus surgery; dd2 - Immunization history:: Adult Immunizations up to date. - Infectious Disease History:: Denies. - Social history:: Smoking status: Patient denies any tobacco usage or history of. - Family history:: not pertinent. Screenin:00 [facility] ED Fall Risk Assessment (Adult) History of falling in the last 3 months, ha1 including since admission Yes- single mechanical fall (1 pt) Confusion or Disorientation No (0 pts) Intoxicated or Sedated No (0 pts) Impaired Gait Yes (1 pt) Mobility Assist Device Used Yes (1 pt) Altered Elimination No (0 pt) Score/Fall Risk Level 3 or more points = High Risk Oriented to surroundings, Maintained a safe environment, Educated pt \T\ family on fall prevention, incl call for assistance when getting out of bed, Hourly rounding (assess needs \T\ fall precautionary measures) done, Implemented a Fall Risk Plan of Care. Abuse screen: Denies threats or abuse. Denies injuries from another. Nutritional screening: No deficits noted. Tuberculosis screening: No symptoms or risk factors identified. Assessment: 20:45 General: Appears comfortable, Behavior is calm, cooperative. Pain: Denies pain. Neuro: ha1 Level of Consciousness is awake, alert, obeys commands, Oriented to person, place, time, situation. Cardiovascular: Capillary refill < 3 seconds Patient's skin is warm and dry. Respiratory: Airway is patent Respiratory effort is even, unlabored, Respiratory pattern is regular, symmetrical. Respiratory: Reports shortness of breath at rest on exertion. GI: Reports abdominal swelling. GI: Abdomen is round distended, Bowel sounds present X 4 quads. : No signs and/or symptoms were reported regarding the genitourinary system. Derm: Skin is normal. Musculoskeletal: Circulation, motion, and sensation intact. 21:45 Reassessment: Patient and/or family updated on plan of care and expected duration. Pain ha1 level reassessed. Patient is alert, oriented x 3, equal unlabored respirations, skin warm/dry/pink. 22:40 Reassessment: Patient and/or family updated on plan of care and expected duration. Pain ha1 level reassessed. Patient is alert, oriented x 3, equal unlabored respirations, skin warm/dry/pink. 23:40 Reassessment: Patient and/or family updated on plan of care and expected duration. Pain ha1 level reassessed. Patient is alert, oriented x 3, equal unlabored respirations, skin warm/dry/pink. 09/17 00:02 General: report faxed and received . ha1 Vital Signs: 09/16 20:24 BP 119 / 73; Pulse 85; Resp 19; Temp 97.9; Pulse Ox 92% on R/A; Weight 43.09 kg; Height dd2 5 ft. 6 in. ; Pain 8/10; 21:00 BP 123 / 77; Pulse 91; Resp 20 S; Pulse Ox 93% on R/A; ha1 22:10 BP 132 / 76; Pulse 83; Resp 19 S; Pulse Ox 94% on R/A; ha1 23:20 BP 131 / 74; Pulse 83; Resp 19 S; Pulse Ox 94% on 2 lpm NC; ha1 09/17 00:09 BP 101 / 66; Pulse 81; Resp 19 S; Pulse Ox 94% on 2 lpm NC; ha1 09/16 20:24 Body Mass Index 15.33 (43.09 kg, 167.64 cm) dd2 09/16 20:24 Pain Scale: Adult dd2 Maged Coma Score: 09/16 22:37 Eye Response: spontaneous(4). Motor Response: obeys commands(6). Verbal Response: sp4 oriented(5). Total: 15. ED Course: 19:48 Patient arrived in ED. gm2 19:49 Casey Kohelr MD is Private Physician. gm2 20:00 Aneudy Kovacs MD is Attending Physician. sp4 20:29 Triage completed. dd2 20:32 Arm band placed on right wrist. Patient placed in an exam room, on a stretcher, on dd2 pulse oximetry. 20:33 Patient has correct armband on for positive identification. Placed in gown. Bed in low ha1 position. Call light in reach. Side rails up X2. Adult w/ patient. 20:58 Missed attempt(s): 22 gauge in right forearm. Bleeding controlled, band aid applied, ha1 catheter tip intact. 21:29 Lab(s) recollected, by me, held in ED. Inserted saline lock: 20 gauge in right forearm, cm10 using aseptic technique. Blood collected. Flushed with 10 mL NS. 21:47 CT Chest Abdomen Pelvis W/O Contrast In Process Unspecified. EDMS 22:08 EKG done, by echocardiography tech. af3 22:22 Sayra Pace, RN is Primary Nurse. ha1 22:27 Provided Education on: plan of care . ha1 22:42 Matthieu Kohler MD is Hospitalizing Provider. sp4 23:30 First set of blood cultures drawn by me, Second set of blood cultures drawn by me. ha1 23:37 Influenza Screen (a \T\ B) Sent. ha1 23:37 SARS RAPID Sent. ha1 09/17 00:58 No provider procedures requiring assistance completed. Patient admitted, IV remains in ha1 place. Administered Medications: 09/16 23:05 Drug: [place] PO 10 mg-325 mg 1 tabs PO once Route: PO; ha1 23:30 Follow up: Response: No adverse reaction; Marked relief of symptoms; Pain is decreased; ha1 RASS: Alert and Calm (0) 23:05 Drug: Ondansetron PO 4 mg PO once Route: PO; ha1 23:30 Follow up: Response: No adverse reaction ha1 23:06 Drug: Lactulose PO 20 grams 30 ml PO once Volume: 30 ml; Route: PO; ha1 23:30 Follow up: Response: No adverse reaction ha1 23:06 Drug: Furosemide IVP 20 mg IVP once; give over 2 minutes Route: IVP; Site: right ha1 forearm; 23:30 Follow up: Response: No adverse reaction; Marked relief of symptoms ha1 23:36 Drug: AZITHromycin PO 500 mg PO once Route: PO; ha1 09/17 00:05 Follow up: Response: No adverse reaction ha1 Medication: 09/16 22:27 VIS not applicable for this client. ha1 Outcome: 22:43 Decision to Hospitalize by Provider. sp4 09/17 00:58 Admitted to Med/surg accompanied by [facility], via stretcher, room 207, with oxygen, with ha1 chart, Condition: stable Instructed on the need for admit, Demonstrated understanding of instructions, 01:00 Patient left the ED. 1 Signatures: Dispatcher [employer] EDMS Sarya Pace, RN RN ha1 Aneudy Kovacs MD MD sp4 Fang Matos RN RN Stacia Mehta 2 Yvette Quinn af3 HELENA GONZALEZ RN RN dd2 Corrections: (The following items were deleted from the chart) 09/16 22:27 20:45 GI: Abdomen is round non-distended, Bowel sounds present X 4 quads. ha1 ha1 09/17 01:00 00:58 Admitted to Med/surg accompanied by christofer, via stretcher, with chart, ha1 ha1
--- NOTE | 2024-09-16 22:44 | EDPHYS ---
Physician Documentation [facility] Name: Rosina Odonnell Age: 89 yrs Sex: Female : 1935 Arrival Date: 09/16/2024 Time: 19:45 Bed 6 Private MD: Casey Kohler C ED Physician Aneudy Kovacs HPI: 09/16 20:00 This 89 yrs old Female presents to ER via Unassigned with complaints of SENT sp4 OVER FROM URGENT CARE, Abdominal Swelling. 22:32 Very pleasant 89-year-old female presents with abdominal distention associated with sp4 shortness of breath for the past 3 days. . 22:32 Patient's past medical history positive for anemia, history of upper GI bleeding, sp4 history of C. difficile colitis, history of asthma hypertension multiple sclerosis and seizures. Patient's medications include hydrocodone daily, albuterol inhaler, carvedilol 6.25 mg twice a day, vitamin D3 2000 units daily, Senokot 2 tablets twice a day, fluticasone nasal spray twice a day, Advair inhaler 1 puff twice a day, Levsin 0.125 mg 3 times a day, ibandronate 150 mg once a month, levetiracetam daily, levocetirizine daily, levothyroxine 50 mcg daily, meclizine as needed, mirtazapine 50 mg daily, Zofran as needed, pregabalin 150 mg daily, trazodone 50 mg bedtime, valsartan 160 mg twice a day.. Today patient went to urgent care clinic where she was evaluated for hand injury associated with cat scratch. There chest x-ray was performed that showed possible pulmonary edema. Patient was directed to the emergency room. . 22:37 Patient was managed here in the hospital on 08/28/2024 for accidental opiate overdose, sp4 C. difficile colitis, stage II decubitus ulcer, anemia secondary to upper GI bleed, hypertension, hyperlipidemia, hypothyroidism, multiple sclerosis, osteoarthritis, mild persistent asthma, gastroesophageal reflux disease, seizure disorder. Patient was prescribed vancomycin 125 mg every 6 hours for 1 week and pantoprazole 40 mg twice a day.. Historical: - Allergies: 20:29 Augmentin; dd2 20:29 PENICILLINS; dd2 20:29 Sulfa (Sulfonamide Antibiotics); dd2 - PMHx: 20:29 Asthma; Hypertension; Multiple Sclerosis; Seizure; dd2 - PSHx: 20:29 EGD; GALLBLADDER; hysterectomy; sinus surgery; dd2 - Immunization history:: Adult Immunizations up to date. - Infectious Disease History:: Denies. - Social history:: Smoking status: Patient denies any tobacco usage or history of. - Family history:: not pertinent. ROS: 22:32 Constitutional: Negative for fever, chills, and weight loss, positive for shortness of sp4 breath, positive for abdominal distention. 22:32 All other systems are negative, Exam: 22:37 Constitutional: This is a well developed, well nourished patient who is awake, alert, sp4 and in no acute distress. Patient is frail elderly female. Head/Face: Normocephalic, atraumatic. Eyes: Pupils equal round and reactive to light, extra-ocular motions intact. Lids and lashes normal. Conjunctiva and sclera are not injected. Cornea within normal limits. Periorbital areas with no swelling, redness, or edema. ENT: Nares patent. No nasal discharge, no septal abnormalities noted. Tympanic membranes are normal and external auditory canals are clear. Oropharynx with no redness, swelling, or masses, exudates, or evidence of obstruction, uvula midline. Mucous membranes moist. Neck: Trachea midline, no thyromegaly or masses palpated, and no cervical lymphadenopathy. Supple, full range of motion without nuchal rigidity, or vertebral point tenderness. Chest/axilla: Normal chest wall appearance and motion. Nontender with no deformity. No lesions are appreciated. Cardiovascular: Regular rate and rhythm with a normal S1 and S2. No gallops, murmurs, or rubs. Normal PMI, no JVD. No pulse deficits. Respiratory: Lungs have equal breath sounds bilaterally, clear to auscultation and percussion. No rales, rhonchi or wheezes noted. No increased work of breathing, no retractions or nasal flaring. Abdomen/GI: Soft, with normal bowel sounds. No distension or tympany. No guarding or rebound. No evidence of tenderness throughout. Back: No spinal tenderness. No costovertebral tenderness. Skin: Warm, dry with normal turgor. Normal color with no rashes, no lesions, and no evidence of cellulitis. MS/ Extremity: Pulses equal, no cyanosis. Neurovascular intact. Full, normal range of motion. Neuro: Awake and alert, GCS 15, oriented to person, place, time, and situation. Cranial nerves II-XII grossly intact. Motor strength 5/5 in all extremities. Sensory grossly intact. Psych: Awake, alert, with orientation to person, place and time. Behavior, mood, and affect are within normal limits 22:37 ECG was reviewed by the Attending Physician. EKG at 2205 ventricular rate 78 normal sinus rhythm with sinus arrhythmia. Vital Signs: 20:24 BP 119 / 73; Pulse 85; Resp 19; Temp 97.9; Pulse Ox 92% on R/A; Weight 43.09 kg; Height dd2 5 ft. 6 in. ; Pain 8/10; 21:00 BP 123 / 77; Pulse 91; Resp 20 S; Pulse Ox 93% on R/A; ha1 22:10 BP 132 / 76; Pulse 83; Resp 19 S; Pulse Ox 94% on R/A; ha1 23:20 BP 131 / 74; Pulse 83; Resp 19 S; Pulse Ox 94% on 2 lpm NC; ha1 09/17 00:09 BP 101 / 66; Pulse 81; Resp 19 S; Pulse Ox 94% on 2 lpm NC; ha1 09/16 20:24 Body Mass Index 15.33 (43.09 kg, 167.64 cm) dd2 09/16 20:24 Pain Scale: Adult dd2 Idanha Coma Score: 09/16 22:37 Eye Response: spontaneous(4). Motor Response: obeys commands(6). Verbal Response: sp4 oriented(5). Total: 15. MDM: 20:13 Medical Screening Exam initiated sp4 22:41 ED course: The lack of IV and oral contrast limits evaluation of the mediastinum, elliott, sp4 vessels, organs and bowel. COMPARISON: July and August 2024 FINDINGS: Mild groundglass opacities right upper lobe. No mediastinal or hilar lymphadenopathy seen. Ascending aorta 4.3 cm. No pleural effusion. No pericardial effusion. Mild gastric distention Liver, spleen, adrenals ,kidneys and bladder appear grossly normal Atrophic pancreas There is no evidence of diverticulitis. Large amount of stool present throughout colon. Old pelvic fractures. IMPRESSION: Mild ground glass opacities right upper lobe indicative of a mild alveolitis. Large amount of stool present throughout colon. . 09/17 02:12 Differential diagnosis: appendicitis, cholecystitis, Cholelithiasis, diverticulitis, sp4 gastritis, GI Bleed. Data reviewed: vital signs, nurses notes, lab test result(s), EKG, radiologic studies, CT scan. 09/16 20:17 Order name: CBC with Diff; Complete Time: 22:16 [facility] 09/16 20:17 Order name: Urinalysis w/ reflexes [facility] 09/16 20:25 Order name: NT PRO-BNP [facility] 09/16 20:25 Order name: Troponin HS [facility] 09/16 21:26 Order name: Comprehensive Metabolic Panel [facility] 09/16 21:26 Order name: Lipase [facility] 09/16 22:44 Order name: SARS RAPID; Complete Time: 00:37 [facility] 09/16 22:44 Order name: Influenza Screen (a \T\ B); Complete Time: 00:37 [facility] 09/16 22:44 Order name: Blood Culture Adult (2) [facility] 09/16 20:25 Order name: CT Chest Abdomen Pelvis W/O Contrast; Complete Time: 22:16 [facility] 09/16 20:25 Order name: EKG; Complete Time: 20:25 [facility] 09/16 20:17 Order name: IV Saline Lock; Complete Time: 21:28 [facility] 09/16 20:17 Order name: Labs collected and sent; Complete Time: 21:28 [facility] 09/16 20:25 Order name: Cardiac monitoring; Complete Time: 22:08 [facility] 09/16 20:25 Order name: EKG - Nurse/Tech; Complete Time: 22:08 [facility] 09/16 20:25 Order name: O2 Per Protocol; Complete Time: 22:08 [facility] 09/16 20:25 Order name: O2 Sat Monitoring; Complete Time: 22:08 4 EC/03 22:05 Rate is 78 beats/min. Rhythm is regular, Normal Sinus Rhythm. QRS [place] is Normal. MD sp4 interval is normal. QRS interval is normal. QT interval is normal. No Q waves. T waves are Normal. No ST changes noted. Clinical impression: No evidence of ischemia. Interpreted by me. Reviewed by me. Administered Medications: 23:05 Drug: [place] PO 10 mg-325 mg 1 tabs PO once Route: PO; ha1 23:30 Follow up: Response: No adverse reaction; Marked relief of symptoms; Pain is decreased; ha1 RASS: Alert and Calm (0) 23:05 Drug: Ondansetron PO 4 mg PO once Route: PO; ha1 23:30 Follow up: Response: No adverse reaction ha1 23:06 Drug: Lactulose PO 20 grams 30 ml PO once Volume: 30 ml; Route: PO; ha1 23:30 Follow up: Response: No adverse reaction ha1 23:06 Drug: Furosemide IVP 20 mg IVP once; give over 2 minutes Route: IVP; Site: right ha1 forearm; 23:30 Follow up: Response: No adverse reaction; Marked relief of symptoms ha1 23:36 Drug: AZITHromycin PO 500 mg PO once Route: PO; ha1 09/17 00:05 Follow up: Response: No adverse reaction ha1 Disposition Summary: 09/16/24 22:43 Hospitalization Ordered Notes: Hospitalization Status: Observation sp4 Provider: Matthieu Kohler sp4 Location: Telemetry/MedSurg (observation) sp4 Condition: Stable sp4 Problem: new sp4 Symptoms: have improved sp4 Bed/Room Type: Standard sp4 Room Assignment: 207(09/16/24 23:54) vk Diagnosis - Moderate CHF exacerbation, moderate constipation, sp4 - Acute on chronic combined systolic (congestive) and diastolic (congestive) heart sp4 failure Forms: - Medication Reconciliation Form sp4 - SBAR form sp4 - Leadership Thank You Letter sp4 Signatures: Dispatcher [employer] Sayra Treviño RN RN ha1 Aneudy Kovacs MD MD sp4 Denisha Canchola DIANA, RN RN dd2 Corrections: (The following items were deleted from the chart) 09/16 21:27 20:18 COMPREHENSIVE METABOLIC PANEL+C.LAB.BRZ ordered. EDMS EDMS 21:27 20:18 LIPASE+C.LAB.BRZ ordered. EDMS EDMS 22:44 22:44 SARS-COV-2 Antigen Rapid+I.LAB.BRZ ordered. EDMS EDMS 22:44 22:44 Influenza Screen (A \T\ B)+BA.LAB.BRZ ordered. EDMS EDMS 22:44 22:44 BLOOD CULTURE*+BA.LAB.BRZ ordered. EDMS EDMS 23:54 22:43 sp4 vk
[2024-09-16] MEDS ORDERED: HYDROCODONE/APAP 10/325 TAB PO PRN (22:51)
[2024-09-16] MEDS ORDERED: AZITHROMYCIN 250 MG TAB ONE (23:34)
[2024-09-17 00:04] LABS: SARS-CoV-2 Antigen CONTROL BLUE LINE VIS/BG OK; SARS-CoV-2 Antigen Rapid Res Negative (Negative)
[2024-09-17] MEDS ORDERED: ALBUTEROL 2.5 MG/3 ML NEB SOL NEB PRN (00:50)
[2024-09-17] MEDS ORDERED: ONDANSETRON 4 MG/2 ML VIAL IV PRN (00:50)
[2024-09-17] MEDS ORDERED: MAGNESIUM HYDROXIDE 8% 30 ML PO PRN (00:50)
[2024-09-17] MEDS ORDERED: ACETAMINOPHEN 325 MG TABLET PO PRN (00:50)
[2024-09-17 08:12] LABS: Anion Gap 5.3 mEq/L (5.0-15.0); BUN Blood Urea Nitrogen 18 mg/dL (7-18); Bicarbonate 29 mEq/L (21-32); Glomerular Filtration Rate 54 ml/min (=/>90); Glucose Level 140 mg/dL (74-106); Sodium Level 144 mEq/L (136-145)
[2024-09-17 08:13] LABS: ALT/SGPT < 14 U/L (13-56); AST/SGOT 21 U/L (15-37); Albumin 2.6 g/dL (3.4-5.0); Alkaline Phosphatase 83 U/L (45-117); Bilirubin Total 0.2 mg/dL (0.2-1.0); Globulin 3.5 g/dL (2.3-3.5); Lipase 30 U/L (13-75); NT PRO-BNP 1326 pg/mL (<450); Protein, Total 6.1 g/dL (6.4-8.2); Troponin High Sensitivity 6.7 pg/mL (<58.9)
[2024-09-17 08:19] LABS: Potassium 4.3 mEq/L (3.5-5.1)
[2024-09-17] MEDS ORDERED: ALBUTEROL INHALER 200 PUFF/6.7 GM IH PRN (09:27)
[2024-09-17] MEDS: Levofloxacin500mg IV 500 MG/100 ML BAG IV SCH (09:40)
[2024-09-17] MEDS: FUROSEMIDE 20 MG/ 2ML VIAL IV ONE (09:40)
[2024-09-17 11:55] LABS: Sqamous Epithelial <5 /HPF (None Seen); Urine Bacteria <20 /HPF (<20); Urine Culture Reflex Order REFLEXED; Urine Mucus Slight /HPF (None Seen); Urine RBC <5 /HPF (None Seen); Urine WBC >50 /HPF (<5)
[2024-09-17 11:58] LABS: Specific Gravity 1.007 (1.005-1.030); Urine Bilirubin NEGATIVE (Negative); Urine Blood Negative (Negative); Urine Clarity Extremely Turbid (Clear); Urine Color Colorless (Yellow); Urine Glucose NEGATIVE (Negative); Urine Ketones NEGATIVE (Negative); Urine Microscopic Reflex YN NO UMIC; Urine Nitrite NEGATIVE (Negative); Urine Protein NEGATIVE (Negative); Urine Urobilinogen Normal (Normal)
--- NOTE | 2024-09-17 12:35 | HP ---
Date of Admission: 09/17/2024 Chief Complaint: Swelling and shortness of breath. History Of Present Illness: This is an 89-year-old pleasant female patient who came into emergency room yesterday with 2-3 days' history of swelling of both hands, both feet, and lower legs, and some shortness of breath. The patient is also having some dry cough with this. Denies any fever at home. Denies any expectoration. After she was evaluated in the ER, she was admitted to the hospital with congestive heart failure problem. Allergies: AUGMENTIN CAUSING ITCHING, SULFA CAUSING ITCHING. Medications At Home: She takes [place], albuterol inhaler, carvedilol 6.25 mg 2 times a day, Vitamin D3 2000 units daily, Senokot S 2 tablets 2 times a day, fluticasone nasal spray 1 spray each nostril 2 times a day, Advair inhaler 1 puff 2 times a day, hyoscyamine 0.125 mg 3 times a day as needed, ibandronate 150 mg once a month, levetiracetam, levocetirizine 5 mg daily, levothyroxine 50 mcg daily, meclizine as needed, mirtazapine 15 mg daily at bedtime, Zofran p.r.n., pregabalin 150 mg daily, trazodone 50 mg takes 0.5 to 1 tablet at bedtime, valsartan 160 mg 2 times a day. Social History: Negative for smoking and alcohol use. Review of Systems: Cardiovascular: As mentioned above. Respiratory: As mentioned above. All other systems reviewed and negative. Past Medical History: Significant for history of recurrent urinary tract infection and she recently took antibiotic as prescribed from emergency room about a week ago. Insomnia, hypertension, asthma, osteoarthritis at multiple sites diverticulosis, gastroesophageal reflux disease, multiple sclerosis, hypothyroidism, hyperlipidemia, rosacea, prior history of anemia with GI bleeding. Past Surgical History: Significant for sinus surgery, removal of benign breast tumor, hysterectomy, shoulder surgery, and toe surgery. Family History: Father had subdural hematoma. Mother had hypertension. Physical Examination: Vital Signs: This morning; temperature 99, pulse 88, respiratory rate 18, blood pressure 109/63, oxygen saturation 96% on 2 L nasal cannula oxygen. Height 5 feet 6 inches. Weight 94 pounds. General: Awake, alert, oriented, not in distress. HEENT: Head atraumatic, normocephalic. Conjunctivae nonerythematous. Sclerae white. Mouth, no thrush or edema noted. Ears/Nose, no mass, lesion, discharge noted. Neck: Supple. No JVD, lymph nodes, bruit, thyromegaly noted. Lungs: Presence of rales noted in both lower lung pereira and right upper lung field. The patient not using any accessory muscles of respiration. Heart: Normal heart sounds, no murmur or gallop. Abdomen: Soft, bowel sounds normal. No guarding, rigidity, tenderness, mass, hepatosplenomegaly, distention, or bruit noted. Extremities: The patient has trace edema of both dorsum feet and lower one- fourth of both lower extremities. Skin: No rash, ulcer, cellulitis. Lymphatics: No lymph node enlargement in neck, supraclavicular, infraclavicular region. Neuro: No focal neurological deficit. Chest: Unremarkable. External Genitalia: Deferred. Rectal: Deferred. Laboratory Data: WBC 7, hemoglobin 10, platelets 287. Yesterday; sodium 144, potassium 4.3, chloride 114, bicarb 29, BUN 18, creatinine 1.01, glucose 140. Liver function tests unremarkable. Troponin first set 6.7, second set 7.4. Lipase 30. COVID-19 test negative. CAT scan of the chest, abdomen, and pelvis without contrast done in the emergency room shows mild ground-glass opacity in the right upper lobe. Large amount of stool present in the colon. Impression: 1. Congestive heart failure. 2. Pneumonia. 3. Anemia due to acute blood loss. 4. Hypertension. 5. Hyperlipidemia. 6. Hypothyroidism. 7. Diverticulosis. 8. Osteoarthritis, multiple sites. 9. Multiple sclerosis. 10. Mild persistent asthma. 11. Gastritis. 12. Seizure disorder. Plan: We will go ahead and admit patient to hospital for further evaluation and management of this problem. The patient is appropriate for inpatient and is expected to spend 2 midnights in hospital. For pneumonia, which is community- acquired pneumonia, we will go ahead and start the patient on Levaquin 500 mg IV daily. The patient does not have any sputum production, so there is no way to identify any specific bacteria and empiric antibiotic therapy will be given. For congestive heart failure, we will go ahead and get an echo with Doppler. Suspect very likely patient probably will have diastolic heart failure, but we will wait until we see what the echocardiogram result comes back with. Meanwhile, we will start her on IV Lasix per order. Monitor electrolytes and renal function. For hypertension, we will monitor blood pressure and consider medication accordingly. For her seizure disorder, she is on levetiracetam and we will continue that per order. For osteoarthritis, she takes chronic pain medication, and we will continue oxycodone 10 mg twice a day, she takes it from her bumper and painter. For DVT prophylaxis, SCD was ordered. The patient recently had GI bleeding and she is on pantoprazole 40 mg two times a day and we will continue that and on the next 4-5 days or so, we will reduce dose to once a day. So probably by the time patient goes home, we will reduce her pantoprazole to once a day as she will finish 1 month of b.i.d. dosing. Anemia is due to acute blood loss from recent upper GI bleeding and hemoglobin is much better now than before, so no need for further intervention. Code status was discussed with her and the patient tells me that she has changed her mind and she wants everything done in the event of cardiopulmonary arrest, so the patient is full code. Total time spent was 80 minutes that includes communication with ER physician, review of emergency room visit record, performing today's evaluation and management and review of last 2 hospital visit record from this month's admission, one from August 21, 2024, and other one was few days after that. ANH/RIGO Voice ID: [id number] [email or web address]
[2024-09-17] MEDS: PANTOPRAZOLE 40MG TABLET PO SCH (16:03)
[2024-09-17] MEDS: TRAZODONE 50 MG TABLET PO SCH (21:00)
[2024-09-17] MEDS: OXYCODONE *CR* 10 MG TAB PO SCH (21:12)
[2024-09-17] MEDS: levETIRAcetam 500 MG TAB PO SCH (21:12)
[2024-09-17] MEDS: MIRTAZAPINE 15 MG TAB PO SCH (21:13)
[2024-09-18] MEDS: FUROSEMIDE 20 MG/ 2ML VIAL IV SCH (10:35)
--- NOTE | 2024-09-18 10:52 | RAD REPORT ---
Procedure: Chest Pa And Lat (2 Views) HISTORY: Cough COMPARISON: September 16, 2024 FINDINGS: The lungs appear clear of acute infiltrate. No significant pleural effusion noted. The heart is mildly enlarged. . IMPRESSION: No acute abnormality is displayed.
--- NOTE | 2024-09-18 11:47 | PN ---
Date of Progress Note: 09/18/2024 Subjective: The patient was seen this morning for followup. No new complaints or problems reported by the patient. Objective: Vital Signs: Reviewed. HEENT: Unremarkable. Lungs: Minimal basal rales noted, overall much better than before. Some rales also noted in left up per lobe, overall better than before also. Not using any accessory muscles of respiration. Heart: Sounds normal. Abdomen: Soft. Bowel sounds normal. No guarding, rigidity, tenderness, distention. Extremities: No leg edema. Impression: 1.Pneumonia. 2.Congestive heart failure. 3.Acute respiratory failure with hypoxia. 4.Hypertension. Plan: We will go ahead and get a chest x-ray done today. The patient is on 1 L nasal cannula oxygen . Hopefully, we can wean off today. We will continue current antibiotic, which is Levaquin. Contin ue Lasix. She received 20 mg IV dose yesterday and another dose will be given today. Echocardiogram will be done tomorrow and possible discharge tomorrow depending on her condition. ANH/MODL Voice ID: [id number] Report ID: [id number]
[2024-09-18] MEDS: FLU (Fluarix Triv) TS24-25(6MOS UP)/PF 45 MCG/0.5 ML Syringe IM ONE (12:00)
[2024-09-19 05:33] VITALS: BMI 15.7
[2024-09-19 05:49] LABS: Absolute Basophils 0.1 K/uL (0-0.5); Absolute Eosinophils 0.2 K/uL (0-0.5); Absolute Lymphocytes (CBC) 2.2 K/uL (0.7-4.9); Absolute Monocytes 0.8 K/uL (0.1-1.3); Absolute Neutrophil 4.8 K/uL (1.8-8.0); Basophils % 0.7 % (0-1.3); Hematocrit 32.8 % (36.0-45.0); Hemoglobin 10.9 g/dL (12.0-15.0); Lymphocytes % 27.4 % (15.3-44.8); MCH 31.6 pg (27.0-35.0); MCHC 33.2 g/dL (32.0-36.0); MCV 95.1 fL (80-100); MPV 7.1 fL (7.6-11.3); Monocytes % 10.2 % (3.3-12.3); Neutrophils % 59.7 % (41.7-73.7); Platelets 287 thou/uL (152-406); RBC Red Blood Cell Count 3.44 M/uL (3.86-4.86); Red Cell Distribution Width 16.7 % (12.1-15.2)
[2024-09-19 06:03] LABS: Magnesium 2.1 mg/dL (1.6-2.4)
[2024-09-19] MEDS: FUROSEMIDE 20 MG TABLET PO SCH (08:14)
--- NOTE | 2024-09-19 14:21 | ECHO ---
HEIGHT: 5 ft 5 in WEIGHT: 94 lb 12.78 oz DATE OF STUDY: 09/19/[address]: Matthieu Kohler MD 2-DIMENSIONAL: YES M.MODE: YES DOPPLER: YES COLOR FLOW: YES TDS: NO PORTABLE: YES DEFINITY: NO BUBBLE STUDY: NO DIAGNOSIS: CONGESTIVE HEART FAILURE CARDIAC HISTORY: CATHERIZATION: NO SURGERY: NO PROSTHETIC VALVE: NO PACEMAKER: NO MEASUREMENTS (cm) DIASTOLIC (NORMALS) SYSTOLIC (NORMALS) IVSd 0.9 (0.6-1.2) LA Diam 3.4 (1.9-4.0) LVEF 59% LVIDd 2.6 (3.5-5.7) LVIDs 1.8 (2.0-3.5) %FS 30% LVPWd 0.9 (0.6-1.2) Ao Diam 2.6 (2.0-3.7) 2 DIMENSIONAL ASSESSMENT: RIGHT ATRIUM: NORMAL LEFT ATRIUM: NORMAL RIGHT VENTRICLE: NORMAL LEFT VENTRICLE: NORMAL TRICUSPID VALVE: TRACE OF TRICUSPID REGURGITATION MITRAL VALVE: TRACE OF MITRAL REGURGITATION PULMONIC VALVE: NORMAL AORTIC VALVE: TRACE OF AORTIC REGURGITATION PERICARDIAL EFFUSION: NONE AORTIC ROOT: NORMAL LEFT VENTRICULAR WALL MOTION: NORMAL. DOPPLER/COLOR FLOW: NORMAL. COMMENTS: 1. NORMAL LEFT VENTRICULAR SYSTOLIC FUNCTION, EJECTION FRACTION 60-65%, NORMAL WALL MOTION. 2. NORMAL DIASTOLIC FUNCTION. 3. NORMAL FILLING PRESSURE. TECHNOLOGIST: MARJAN GUSTAFSON
[2024-09-19] MEDS: JUVEN PACKET PO SCH (20:27)
[2024-09-19] MEDS: ENSURE CLEAR 200 ML CAN PO SCH (20:27)
--- NOTE | 2024-09-20 06:13 | PN ---
Date of Progress Note: 09/19/2024 Subjective: The patient was seen this morning for followup. No new complaints or problems reported by the patient. Objective: Vital Signs: Reviewed. HEENT: Unremarkable. Lungs: Clear to auscultation. Heart: Sounds normal. Abdomen: Soft. Bowel sounds normal. No guarding, rigidity, tenderness, distention. Extremities: No leg edema. Laboratory Data: White count 8, hemoglobin 10.9, platelets 287. Sodium 143, potassium 4, chloride 1 07, bicarb 33, BUN 26, creatinine 1.02, glucose 117, magnesium 2.1. Impression: 1.Pneumonia. 2.Congestive heart failure. 3.Respiratory failure with hypoxia. 4.Anemia. Plan: We will go ahead and continue current antibiotic which is Levaquin. Last chest x-ray was norm al. Continue Lasix 20 mg p.o. daily. Echocardiogram shows normal ejection fraction. The patient wa s on 1 L nasal cannula oxygen when I saw her which was discontinued and her room air oxygen saturatio n was 93% about an hour or so after oxygen was discontinued, but subsequently with ambulation with ph ysical therapy, her oxygen saturation was dropping down into 80 range, so Social Service is going to make arrangements for home oxygen and possible discharge to go home tomorrow. Physical Therapy to work with the patient. ANH/MODL Voice ID: [id number] Report ID: [id number]
[2024-09-20] MEDS: NA CHLORIDE 0.9% 250 ML IV ONE (12:07)
[2024-09-20 12:23] LABS: Absolute Basophils 0.1 K/uL (0-0.5); Absolute Eosinophils 0.1 K/uL (0-0.5); Absolute Lymphocytes (CBC) 1.9 K/uL (0.7-4.9); Absolute Monocytes 0.7 K/uL (0.1-1.3); Absolute Neutrophil 5.1 K/uL (1.8-8.0); Basophils % 0.8 % (0-1.3); Eosinophils % 1.5 % (0-4.4); Hematocrit 31.1 % (36.0-45.0); Hemoglobin 10.4 g/dL (12.0-15.0); Lymphocytes % 24.6 % (15.3-44.8); MCH 31.7 pg (27.0-35.0); MCHC 33.4 g/dL (32.0-36.0); MCV 95.1 fL (80-100); MPV 6.9 fL (7.6-11.3); Monocytes % 8.8 % (3.3-12.3); Neutrophils % 64.3 % (41.7-73.7); Nucleated Red Blood Cells % 0.1 % (0-0); Platelets 285 thou/uL (152-406); RBC Red Blood Cell Count 3.27 M/uL (3.86-4.86); Red Cell Distribution Width 16.2 % (12.1-15.2)
[2024-09-20 12:42] LABS: Anion Gap 6.4 mEq/L (5.0-15.0); Magnesium 2.1 mg/dL (1.6-2.4); Potassium 4.4 mEq/L (3.5-5.1); Troponin High Sensitivity 4.1 pg/mL (<58.9)
[2024-09-20] MEDS: NA CHLORIDE 0.9% 1,000 ML IV SCH (14:40)
--- NOTE | 2024-09-20 20:21 | PN ---
Date of Progress Note: 09/20/2024 Subjective: The patient was seen this morning for followup. No new complaints or problems reported by the patient. She was lying in bed, not in any distress. Denies any chest pain or shortness of br eath. No nausea. No vomiting. Objective: Vital Signs: Reviewed. HEENT: Unremarkable. Lungs: Clear to auscultation. Heart: Sounds normal. Abdomen: Soft. Bowel sounds normal. No guarding, rigidity, tenderness, distention. Extremities: No leg edema. Laboratory Data: Reviewed. CBC, basic metabolic panel, and troponin level were unremarkable, but D- dimer was elevated. Impression: 1.Hypotension. 2.Hypoxia. 3.Pneumonia. 4.Chronic diastolic heart failure. Plan: The patient's blood pressure had dropped down today with systolic blood pressure in range of 8 0, and she was not showing any other symptoms related to this low blood pressure at that time, and sh boogie was communicating with the nursing staff just like her normal self. When nurse contacted me at michelle t time, IV fluid bolus of 250 cc normal saline was given. After that, her systolic blood pressure ca me up to 110 range. At that time, we ordered some CBC and basic metabolic panel, troponin level, and D-dimer and results reviewed. Since D-dimer was elevated, CT scan of the chest per PE protocol was ordered, and I was told by the nursing staff that CAT scan machine was down, so we will have to wait for the test to be done. Once CAT scan machine is available, then we will do that. The patient rece ived her dose of Lasix this morning. She has not been on any of her antihypertensive medications lik e the way she normally takes at home, which is her carvedilol and valsartan. We will continue her Le vaquin for pneumonia. She has significant generalized weakness and debility, and today she was not s afe for transfer or ambulation on her own. As a result of that, it is my recommendation that the pat braden should go to [facility] facility and we will have Social Service assist us with that arrang ement. I will see her tomorrow for followup. ANH/MODL Voice ID: [id number] Report ID: [id number]
[2024-09-21] MEDS: DULERA 100/5 (MOMETASONE/FORMOTEROL) INHALER IH SCH (09:00)
[2024-09-21] MEDS: CEFTRIAXONE 1,000 MG in NA CHLORIDE 0.9% 50 ML IVPB SCH (10:47)
[2024-09-21] MEDS: PREGABALIN 150 MG CAP PO SCH (10:50)
[2024-09-21] MEDS: levETIRAcetam 500 MG TAB PO SCH (10:51)
--- NOTE | 2024-09-21 15:56 | RAD REPORT ---
EXAMINATION: CTA CHEST PE CLINICAL INDICATION: hypoxia, low BP, rule out PE TECHNIQUE: This examination was performed according to an angiographic protocol with 3D post-processi ng. This involves 3D reconstructions, MIPs, volume rendered images and/or shaded surface rendering. One or more of the following dose reduction techniques were used: Automated exposure control, adjustm ent of the mA and/or kV according to patient size, and/or iterative reconstruction. Unless otherwise specified, incidental findings do not require dedicated imaging follow-up. COMPARISON: 09/16/2024 FINDINGS: PULMONARY ARTERIES: Normal caliber. No evidence of pulmonary emboli to the subsegmental level. THORACIC AORTA: Aneurysmal dilatation of the ascending thoracic aorta measures 4.4 cm maximally. No d issection or flow limitation seen. LUNGS: No evidence of airspace or interstitial process. No nodules. PLEURA: No pleural effusion. No pneumothorax. MEDIASTINUM AND LYMPH NODES: No mediastinal mass or fluid collection. Normal size mediastinal, hilar, and axillary lymph nodes. OSSEOUS STRUCTURES AND CHEST WALL: Severe right shoulder arthritic changes. Left shoulder reverse art hroplasty. UPPER ABDOMEN: No significant abnormalities. IMPRESSION: No evidence of pulmonary emboli to the subsegmental level. 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 Mild COPD.
[2024-09-21 16:57] VITALS: BP 126/71; TEMP 98.5
[2024-09-21 20:29] VITALS: O2SAT 94
--- NOTE | 2024-09-21 21:01 | DS ---
Date of Discharge: 09/21/2024 Disposition: The patient was discharged to go to [facility]. Physical Examination: HEENT: Unremarkable. Lungs: Clear to auscultation. No wheezing. No rales. Heart: Sounds normal. Abdomen: Soft. Bowel sounds normal. No guarding, rigidity, tenderness, distention. Extremities: No leg edema. Laboratory Data: CT scan of the chest per PE protocol done today was negative for pulmonary embolism which showed about 4.4 cm ascending aortic aneurysm without any acute changes. Echocardiogram from 09/19/2024 showed ejection fraction 59%. It was unremarkable echocardiogram. Upon admission; WBC 7, hemoglobin 10, platelets 287. Sodium 144, potassium 4.3, chloride 114, bicarb 29, BUN 18, creatinin e 1.01, glucose 140. Liver function tests unremarkable. Troponin 6.7. Lipase 30. COVID-19 test ne gative. CAT scan of the chest, abdomen, and pelvis done in the emergency room showed some mild groun d-glass opacity in the right upper lobe and large amount of stool present in the colon. Final Diagnoses: 1.Congestive heart failure, chronic, diastolic, with acute exacerbation. 2.Pneumonia. 3.Urinary tract infection. 4.Anemia due to acute blood loss. 5.Hypertension. 6.Hyperlipidemia. 7.Hypothyroidism. 8.Diverticulosis. 9.Osteoarthritis, multiple sites. 10.Multiple sclerosis. 11.Mild persistent asthma. 12.Gastritis. 13.Seizure disorder. Hospital Course: This is an 89-year-old pleasant female patient who was brought into the emergency r oom with complaints of swelling of hands and feet and some shortness of breath and after she was eval uated, she was admitted to the hospital. Please see dictated H and P for more details and more infor mation. The patient was started on IV Lasix 20 mg daily and IV antibiotic Levaquin and she responded well to that. She did require oxygen replacement therapy in the beginning and as the time passed by , we were able to cut back on her oxygen. She was down to 1 L/minute nasal cannula oxygen, which was discontinued a couple of days ago, but with ambulation, her oxygen saturation dropped down into 80s, so we replaced her oxygen and Social Service made arrangements for her to have home oxygen due to th is hypoxia problem. She has significant generalized weakness and debility. She was very unsteady on her feet and not able to safely transfer or ambulate and Physical Therapy was consulted at that time . We recommended for her to go to nursing home facility and Social Service was consulted. After Social Service communicated with the patient and family member, we were able to make arrangements for her to go to nursing home facility in [facility], facility of the patient's choice and today she was discharged to go there in stable condition with following discharge medicat ions and instructions. Her urine culture result came back today growing E coli and it was resistant to Levaquin but sensitive to cephalosporin, so ceftriaxone 1 g IV was given, this morning, and we gladys l discharge to go home with oral antibiotic. Discharge Medications/instructions: 1.Stop valsartan. 2.Stop carvedilol. 3.Oxycodone 10 mg 2 times a day. 4. . 5. . Total time spent 45 minutes. ANH/MODL Voice ID: [id number] Report ID: [id number]
--- NOTE | 2024-09-26 11:20 | EKG ---
Test Date: 2024-09-16 Test Time: 22:05:25 Client Operations Manager: AF MEASUREMENT RESULTS: Intervals: Rate: 78 MT: 180 QRSD: 80 QT: 380 QTc: 433 [place]: P: 65 MT: 180 QRS: 30 T: 60 INTERPRETIVE STATEMENTS: Normal sinus rhythm with sinus arrhythmia Possible Left atrial enlargement Borderline ECG Compared to ECG 08/27/2024 17:08:25 No significant changes Electronically Signed On 09-26-24 11:06:06 VESSEL MASTER by Wilbert Daly
== END 2024-09-21 18:51 | DRG 291 ==
LOC: ER 19:45 → ERHOLD 22:45 → 2ND 09-17 00:46 → OBSVTOIN 09-17 09:40
PROVIDERS: ADMIT Internal Medicine; ATTEND Internal Medicine
DX: I11.0 Hypertensive heart disease with heart failure (principal); I50.33 Acute on chronic diastolic (congestive) heart failure; J18.9 Pneumonia, unspecified organism; J96.01 Acute respiratory failure with hypoxia; D62 Acute posthemorrhagic anemia; N39.0 Urinary tract infection, site not specified; E03.9 Hypothyroidism, unspecified; G35 Multiple sclerosis; E78.5 Hyperlipidemia, unspecified; K59.00 Constipation, unspecified; J45.30 Mild persistent asthma, uncomplicated; I71.21 Aneurysm of the ascending aorta, without rupture; K29.70 Gastritis, unspecified, without bleeding; G40.909 Epilepsy, unspecified, not intractable, without status epilepticus; K21.9 Gastro-esophageal reflux disease without esophagitis; K57.90 Diverticulosis of intestine, part unspecified, without perforation or abscess without bleeding; B96.20 Unspecified Escherichia coli [E. coli] as the cause of diseases classified elsewhere; Z79.02 Long term (current) use of antithrombotics/antiplatelets; Z79.890 Hormone replacement therapy; Z79.899 Other long term (current) drug therapy; Z88.0 Allergy status to penicillin; Z88.1 Allergy status to other antibiotic agents; Z88.2 Allergy status to sulfonamides; Z90.710 Acquired absence of both cervix and uterus; Z11.52 Encounter for screening for COVID-19
CPT/HCPCS: 36415; 71046; 71250; 71275; 74176; 80048; 80053; 81003; 83690; 83735; 83880; 84484; 85025; 85379; 87040; 87077; 87086; 87088; 87186; 87804; 87811; 93005; 93306; 96374; 97116; 97161; 97530; 99285; G0378; J0696; J1940; J3535; J7030; J7050; Q0162; Q9967

== ENCOUNTER 2024-10-05 15:30 | Emergency (ER) | payer OTHER ==
--- NOTE | 2024-10-05 16:30 | RAD REPORT ---
EXAM: CT brain without contrast HISTORY: TRAUMA COMPARISON: 08/13/2024, 02/03/2018 TECHNIQUE: Multiple contiguous axial images were obtained and a CT of the brain without contrast. Sag ittal and coronal reformats were performed. One or more of the following dose reduction techniques were used: Automated exposure control, adjust ment of the mA and/or kV according to patient size, and/or iterative reconstruction. FINDINGS: No evidence of hydrocephalus, intracranial hemorrhage, or extra-axial fluid collection. Mild brain atrophy with mild periventricular and deep white matter chronic microvascular ischemic ch anges present. No evidence of midline shift or areas of brain edema. The calvarium is intact. The visualized paranasal sinuses and mastoid air cells are essentially clear . IMPRESSION: No evidence of acute intracranial abnormality. EXAM: CT of the cervical spine without contrast HISTORY: Neck pain, injury TRAUMA TECHNIQUE: Multiple contiguous axial images were obtained in a CT of the cervical spine without contr ast. Sagittal and coronal reformats were performed. FINDINGS: 3 mm degenerative anterolisthesis C3 on 4. 3 mm degenerative anterolisthesis C4 on 5. 2 mm degenerative anterolisthesis C5 on 6. No evidence of acute fracture or subluxation.. Moderate carotid atherosclerosis bilaterally. No prevertebral soft tissue swelling is seen. The posterior facets are well aligned. Normal alignment of the skull base with the cervical spine is seen. The lung apices are unremarkable. IMPRESSION: No evidence of acute osseous abnormality of the cervical spine. Moderate multilevel degenerative change with levels of anterolisthesis as detailed.
--- NOTE | 2024-10-05 16:40 | EDPHYS ---
Physician Documentation [facility] Name: Rosina Odonnell Age: 89 yrs Sex: Female : 1935 Arrival Date: 10/05/2024 Time: 15:30 Bed 11 Private MD: ED Physician Олег Castro HPI: 10/05 18:57 This 89 yrs old Female presents to ER via Wheelchair with complaints of Fall Injury, kb Facial Injury. 18:57 Pt is an 89 year old female who presents for headache and neck pain that started after kb a fall 2 days ago. Pt states there was water on the floor and she accidentally stepped in it causing her to fall. Denies loc. States her nurse told her she needed to come in for a CT. Historical: - Allergies: 15:44 Augmentin; ld1 15:44 PENICILLINS; ld1 15:44 Sulfa (Sulfonamide Antibiotics); ld1 - PMHx: 15:44 Asthma; Hypertension; Multiple Sclerosis; Seizure; ld1 - PSHx: 15:44 EGD; GALLBLADDER; hysterectomy; sinus surgery; ld1 - Immunization history:: Adult Immunizations up to date. - Infectious Disease History:: Denies. - Social history:: Smoking status: Patient denies any tobacco usage or history of. ROS: 17:12 Constitutional: As per HPI kb Exam: 17:12 Constitutional: This is a well developed, well nourished patient who is awake, alert, kb and in no acute distress. Eyes: Pupils equal round and reactive to light, extra-ocular motions intact. Lids and lashes normal. Conjunctiva and sclera are non-icteric and not injected. Cornea within normal limits. Periorbital areas with no swelling, redness, or edema. ENT: Moist Mucous membranes Cardiovascular: Regular rate Respiratory: Respirations even and unlabored. No increased work of breathing. Talking in full sentences Abdomen/GI: Soft, non-tender. No distention MS/ Extremity: Pulses equal, no cyanosis. Neurovascular intact. Full, normal range of motion. Neuro: Awake and alert, GCS 15, oriented to person, place, time, and situation. 17:12 Head/face: Noted is no obvious of injury or deformity except ecchymosis, that is moderate, of the lower lip and lower iesha border, hematoma, that is mild, of the left side of the back of head, a laceration(s), that is superficial, that is linear, 0.5 cm(s), of the lower iesha border, Vital Signs: 15:40 BP 129 / 76; Pulse 92; Resp 18; Temp 97.2(TE); Pulse Ox 96% on R/A; Weight 43.09 kg; ld1 Height 5 ft. 5 in. ; Pain 7/10; 16:40 BP 132 / 74; Pulse 94; Resp 16; Temp 98.1; Pulse Ox 96% ; me1 15:40 Body Mass Index 15.81 (43.09 kg, 165.1 cm) ld1 15:40 Pain Scale: Adult ld1 MDM: 15:35 Medical Screening Exam initiated kb 18:57 Differential diagnosis: abrasion, closed head injury, contusion, fracture, laceration. kb Data reviewed: vital signs, nurses notes. Counseling: I had a detailed discussion with the patient and/or guardian regarding the historical points, exam findings, and any diagnostic results supporting the discharge/admit diagnosis, radiology results, the need for outpatient follow up, a family practitioner, to return to the emergency department if symptoms worsen or persist or if there are any questions or concerns that arise at home. 10/05 15:43 Order name: CT Head C Spine; Complete Time: 16:34 kb Administered Medications: No medications were administered Disposition Summary: 10/05/24 16:39 Discharge Ordered Notes: Location: Home kb Condition: Stable kb Diagnosis - Unspecified injury of head, initial encounter kb - Fall on same level, unspecified kb - Laceration without foreign body of lip kb - Contusion of lip kb Followup: kb - With: Emergency Department - When: As needed - Reason: Worsening of condition Followup: kb - With: Private Physician - When: 2 - 3 days - Reason: Recheck today's complaints, Continuance of care, Re-evaluation by your physician Discharge Instructions: - Discharge Summary Sheet kb - Head Injury, Adult, [id number] kb - Facial or Scalp Contusion, [id number] kb Forms: - Medication Reconciliation Form kb - Antibiotic Education kb - Prescription Opioid Use kb - Patient Portal Instructions kb - Leadership Thank You Letter kb Signatures: Dispatcher [employer] Shalini Lao FNP-C MIRROR POLISHER-Ewa Sweeney, RN RN ld1
--- NOTE | 2024-10-05 16:40 | ER ---
Nurse's Notes [facility] Name: Rosina Odonnell Age: 89 yrs Sex: Female : 1935 Arrival Date: 10/05/2024 Time: 15:30 Bed 11 Private MD: Diagnosis: Unspecified injury of head, initial encounter;Fall on same level, unspecified;Laceration without foreign body of lip;Contusion of lip Presentation: 10/05 15:40 Chief complaint: Patient states: Fell yesterday - injury to head and lip. Denies blood ld1 thinners. Coronavirus screen: At this time, the client does not indicate any symptoms associated with coronavirus-19. Ebola Screen: No symptoms or risks identified at this time. Risk Assessment: Do you want to hurt yourself or someone else? Patient reports no desire to harm self or others. Onset of symptoms was October 05, 2024. 15:40 Method Of Arrival: Wheelchair ld1 15:40 Acuity: [place] 3 ld1 15:43 Initial Sepsis Screen: Does the patient meet any 2 criteria? No. Patient's initial ld1 sepsis screen is negative. Does the patient have a suspected source of infection? No. Patient's initial sepsis screen is negative. Triage Assessment: 15:44 General: Appears in no apparent distress. comfortable, Behavior is cooperative, ld1 anxious. Pain: Complains of pain in face Pain does not radiate. Pain currently is 8 out of 10 on a pain scale. Quality of pain is described as throbbing. EENT: No signs and/or symptoms were reported regarding the EENT system. Neuro: Level of Consciousness is awake, alert, obeys commands, Oriented to person, place, time, situation, Appropriate for age. Cardiovascular: Capillary refill < 3 seconds Patient's skin is warm and dry. Respiratory: Airway is patent Respiratory effort is even, unlabored. GI: Abdomen is flat, non-distended. : No signs and/or symptoms were reported regarding the genitourinary system. Derm: No signs and/or symptoms reported regarding the dermatologic system. Musculoskeletal: No signs and/or symptoms reported regarding the musculoskeletal system. Historical: - Allergies: 15:44 Augmentin; ld1 15:44 PENICILLINS; ld1 15:44 Sulfa (Sulfonamide Antibiotics); ld1 - PMHx: 15:44 Asthma; Hypertension; Multiple Sclerosis; Seizure; ld1 - PSHx: 15:44 EGD; GALLBLADDER; hysterectomy; sinus surgery; ld1 - Immunization history:: Adult Immunizations up to date. - Infectious Disease History:: Denies. - Social history:: Smoking status: Patient denies any tobacco usage or history of. Screenin:52 [facility] ED Fall Risk Assessment (Adult) History of falling in the last 3 months, me1 including since admission Yes- single mechanical fall (1 pt) Confusion or Disorientation No (0 pts) Intoxicated or Sedated No (0 pts) Impaired Gait No (0 pts) Mobility Assist Device Used No (0 pt) Altered Elimination No (0 pt) Score/Fall Risk Level 0 - 2 = Low Risk Maintained a safe environment, Provided non-skid footwear, Hourly rounding (assess needs \T\ fall precautionary measures) done. Abuse screen: Denies threats or abuse. Nutritional screening: No deficits noted. Tuberculosis screening: No symptoms or risk factors identified. Assessment: 15:52 General: Appears uncomfortable, Behavior is calm, cooperative, appropriate for age. me1 Pain: Complains of pain in face Pain does not radiate. Pain currently is 8 out of 10 on a pain scale. Quality of pain is described as throbbing, Pain began suddenly, Is continuous. Neuro: Level of Consciousness is awake, alert, obeys commands, Oriented to person, place, time, situation, Appropriate for age. Cardiovascular: Patient's skin is warm and dry. Respiratory: Airway is patent Respiratory effort is even, unlabored, Respiratory pattern is regular, symmetrical. GI: No signs and/or symptoms were reported involving the gastrointestinal system. : No signs and/or symptoms were reported regarding the genitourinary system. EENT: No signs and/or symptoms were reported regarding the EENT system. Derm: Skin is intact, is healthy with good turgor, Skin is pink, warm \T\ dry. Musculoskeletal: No signs and/or symptoms reported regarding the musculoskeletal system. Injury Description: s/p fall with injury to face. Vital Signs: 15:40 BP 129 / 76; Pulse 92; Resp 18; Temp 97.2(TE); Pulse Ox 96% on R/A; Weight 43.09 kg; ld1 Height 5 ft. 5 in. ; Pain 7/10; 16:40 BP 132 / 74; Pulse 94; Resp 16; Temp 98.1; Pulse Ox 96% ; me1 15:40 Body Mass Index 15.81 (43.09 kg, 165.1 cm) ld1 15:40 Pain Scale: Adult ld1 ED Course: 15:34 Patient arrived in ED. ra3 15:34 Shalini Rain FNP-C [facility]. kb 15:34 Олег Castro MD is Attending Physician. kb 15:42 Triage completed. ld1 15:44 Arm band placed on right wrist. ld1 15:51 Silvana Villanueva, RN is Primary Nurse. me1 15:52 Patient has correct armband on for positive identification. Bed in low position. Call me1 light in reach. Side rails up X 1. Provided Education on: POC. Verbalized understanding.. 15:52 No provider procedures requiring assistance completed. me1 16:10 CT Head C Spine In Process Unspecified. EDMS 16:44 IV discontinued, intact, bleeding controlled, No redness/swelling at site. Pressure me1 dressing applied. Administered Medications: No medications were administered Medication: 15:52 VIS not applicable for this client. me1 Outcome: 16:39 Discharge ordered by MD. kb 16:44 Discharged to home ambulatory, me1 16:44 Condition: stable 16:44 Discharge instructions given to patient, Instructed on discharge instructions, follow up and referral plans. Demonstrated understanding of instructions, follow-up care, 16:45 Patient left the ED. me1 Signatures: Dispatcher [employer] [facility] Shalini Rain FNP-C FNP-Ckb Ewa Limon RN RN ld1 Silvana Villanueva, RN RN me1 Mary Agrawal ra3 Corrections: (The following items were deleted from the chart) 15:44 15:40 Pulse 92bpm; Resp 18bpm; Pulse Ox 96% RA; Temp 97.2F Temporal; 52.62 kg; Height 5 ld1 ft. 5 in.; BMI: 19.3; Pain 7/10, Adult; ld1 15:52 15:40 Chief complaint: Patient states: Fell yesterday - injury to head and lip. Denies me1 blood thinners ld1 15:54 15:52 [facility] ED Fall Risk Assessment (Adult) History of falling in the last 3 months, me1 including since admission No falls in past 3 months (0 pts) Confusion or Disorientation No (0 pts) Intoxicated or Sedated No (0 pts) Impaired Gait No (0 pts) Mobility Assist Device Used No (0 pt) Altered Elimination No (0 pt) Score/Fall Risk Level 0 - 2 = Low Risk Maintained a safe environment, Provided non-skid footwear, Hourly rounding (assess needs \T\ fall precautionary measures) done, me1
[2024-10-05 18:00] VITALS: O2SAT 96
[2024-10-05 18:01] VITALS: BP 132/74; TEMP 98.1
== END 2024-10-05 16:45 | disposition home or self-care (01) ==
LOC: ER 15:30
DX: S01.511A Laceration without foreign body of lip, initial encounter (principal); W18.30XA Fall on same level, unspecified, initial encounter
CPT/HCPCS: 70450; 72125; 99283

== ENCOUNTER 2025-01-01 17:36 | Inpatient (IN) | payer OTHER ==
[2025-01-01 19:02] LABS: Absolute Eosinophils 0.4 K/uL (0-0.5); Absolute Lymphocytes (CBC) 1.5 K/uL (0.7-4.9); Absolute Monocytes 0.5 K/uL (0.1-1.3); Absolute Neutrophil 5.9 K/uL (1.8-8.0); Basophils % 0.5 % (0-1.3); Eosinophils % 5.1 % (0-4.4); Hematocrit 32.8 % (36.0-45.0); Hemoglobin 10.7 g/dL (12.0-15.0); Lymphocytes % 17.6 % (15.3-44.8); MCH 30.7 pg (27.0-35.0); MCHC 32.8 g/dL (32.0-36.0); MCV 93.8 fL (80-100); MPV 7.2 fL (7.6-11.3); Monocytes % 6.5 % (3.3-12.3); Neutrophils % 70.3 % (41.7-73.7); Nucleated Red Blood Cells % 0.1 % (0-0); Platelets 244 thou/uL (152-406); RBC Red Blood Cell Count 3.49 M/uL (3.86-4.86); Red Cell Distribution Width 14.5 % (12.1-15.2)
[2025-01-01 19:09] LABS: PT Prothrombin Time 11.3 SECONDS (10-13.0); Protime INR 0.99
[2025-01-01] MEDS ORDERED: ASPIRIN 81 MG CHEWABLE TABLET ONE (19:16)
[2025-01-01] MEDS ORDERED: METHYLPREDNISOLONE 40 MG INJ ONE (19:16)
[2025-01-01] MEDS ORDERED: IPRATROPIUM BROM 0.5MG/2.5ML ONE (19:16)
[2025-01-01] MEDS ORDERED: ALBUTEROL 2.5 MG/3 ML NEB SOL ONE (19:16)
[2025-01-01 19:21] LABS: Troponin High Sensitivity 8.9 pg/mL (<58.9)
--- NOTE | 2025-01-01 19:30 | RAD REPORT ---
Procedure: Chest Single View HISTORY: Shortness of breath COMPARISON: September 2024 FINDINGS: The lungs appear clear of acute infiltrate. No significant pleural effusion noted. The heart is mildly to moderately enlarged. The known ascending thoracic aortic aneurysm is without obvious change.
[2025-01-01 20:59] LABS: Influenza A Ag Negative; Influenza B Ag Negative; SARS-CoV-2 Antigen Rapid Res Negative (Negative)
--- NOTE | 2025-01-01 20:59 | RAD REPORT ---
EXAM: CTA of the chest, abdomen and pelvis HISTORY: Chest and abdominal pain COMPARISON: 2023 and September 2024 TECHNIQUE: Multiple contiguous axial images were obtained a CTA of the chest and abdomen with contras t per aortic dissection protocol. Sagittal and coronal 3-D MIP reformats were performed. 100 cc Isovue-370 administered intravenously.Automated exposure control, adjustment of the mA and kV accordi ng to the patient size, and iterative reconstruction. Unless otherwise specified, incidental findings do not require dedicated imaging follow-up. FINDINGS: 4.2 cm aneurysm involves the distal aspect of the ascending thoracic aorta. It is unchanged. Mild to moderate calcifications involve the aorta. A short section dissection of the lower abdominal aorta is unchanged. Moderate short segment stenosis celiac artery. SMA patent. CHILO patent. High-grade stenoses right and left proximal renal arteries. Renal arteries do not demonstrate a significant abnormality. Lungs are clear Liver, spleen, pancreas, adrenals, kidneys and bladder do not demonstrate a significant abnormality Gastric distention. Moderate amount of stool is present throughout colon. Cholecystectomy No evidence of diverticulitis. IMPRESSION: 4.2 cm ascending thoracic aortic aneurysm unchanged. Follow-up CT in 6 months recommended to assess s tability. If no change after that time then yearly follow-up recommended if stable. 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
[2025-01-01] MEDS ORDERED: MORPHINE 4 MG/ML SYR ONE (21:16)
--- NOTE | 2025-01-01 21:25 | ER ---
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 Coronavirus screen: At this time, the client bp does not indicate any symptoms associated with coronavirus-19. Ebola Screen: No symptoms or risks identified at this time. Initial Sepsis Screen: Does the patient meet any 2 criteria? No. Patient's initial sepsis screen is negative. Does the patient have a suspected source of infection? No. Patient's initial sepsis screen is negative. Risk Assessment: Do you want to hurt yourself or someone else? Patient reports no desire to harm self or others. Onset of symptoms was January 01, 2025 at 16:30. 17:50 Method Of Ar[facility]: [facility] 17:50 Acuity: [place] 3 bp Triage Assessment: 17:51 General: Appears in no apparent distress. comfortable, Behavior is calm, cooperative, bp appropriate for age. Pain: Denies pain. EENT: No deficits noted. Neuro: No deficits noted. Cardiovascular: No deficits noted. Respiratory: Reports shortness of breath Onset: The symptoms/episode began/occurred just prior to arrival, the patient has mild shortness of breath. GI: No signs and/or symptoms were reported involving the gastrointestinal system. : No signs and/or symptoms were reported regarding the genitourinary system. Derm: No deficits noted. Musculoskeletal: No deficits noted. Historical: - Allergies: 17:51 Augmentin; bp 17:51 PENICILLINS; bp 17:51 Sulfa (Sulfonamide Antibiotics); bp - PMHx: 17:51 Asthma; Hypertension; Multiple Sclerosis; Seizure; bp - PSHx: 17:51 EGD; GALLBLADDER; sinus surgery; hysterectomy; bp - Immunization history:: Adult Immunizations up to date. - Infectious Disease History:: Denies. - Social history:: Smoking status: unknown. Screenin:54 [facility] ED Fall Risk Assessment (Adult) History of falling in the last 3 months, bp including since admission No falls in past 3 months (0 pts) Confusion or Disorientation No (0 pts) Intoxicated or Sedated No (0 pts) Impaired Gait No (0 pts) Mobility Assist Device Used No (0 pt) Altered Elimination No (0 pt) Score/Fall Risk Level 0 - 2 = Low Risk. Abuse screen: Denies threats or abuse. Denies injuries from another. Nutritional screening: No deficits noted. Tuberculosis screening: No symptoms or risk factors identified. Assessment: 20:10 Neuro: Level of Consciousness is awake, alert, obeys commands, Oriented to person, cp4 place, time, situation. Cardiovascular: Patient's skin is warm and dry. Rhythm is sinus rhythm. Respiratory: Airway is patent Respiratory effort is even, unlabored, Breath sounds are diminished. GI: No signs and/or symptoms were reported involving the gastrointestinal system. : No signs and/or symptoms were reported regarding the genitourinary system. EENT: No signs and/or symptoms were reported regarding the EENT system. Derm: No signs and/or symptoms reported regarding the dermatologic system. Musculoskeletal: No signs and/or symptoms reported regarding the musculoskeletal system. Vital Signs: 17:50 BP 136 / 80; Pulse 94; Resp 16; Temp 98; Pulse Ox 95% on 3 lpm NC; bp 19:00 BP 170 / 70; Pulse 69; Resp 18; Pulse Ox 92% ; cp4 21:00 BP 127 / 53; Pulse 86; Resp 18; Pulse Ox 95% on 2 lpm NC; cp4 22:33 BP 122 / 71; Pulse 79; Resp 18; Pulse Ox 99% on 2 lpm NC; cp4 ED Course: 17:50 Patient arrived in ED. bp 17:51 Triage completed. bp 17:54 Arm band placed on. bp 17:54 Patient has correct armband on for positive identification. bp 17:55 James Reyes, RN is Primary Nurse. bp 18:20 Yusef Brush PA is PHCP. cp 18:20 Yusef Echavarria MD is Attending Physician. cp 19:11 XRAY Chest (1 view) In Process Unspecified. EDMS 20:10 No provider procedures requiring assistance completed. cp4 20:17 CT Aorta for Dissection In Process Unspecified. EDMS 21:23 Antoni Sweeney MD is Hospitalizing Provider. cp 01/02 03:36 Casey Kohler MD is Hospitalizing Provider. cp Administered Medications: 01/01 19:26 Drug: MethylPrednisoLONE IVP 80 mg IVP once Route: IVP; Site: right forearm; cp4 20:09 Follow up: Response: No adverse reaction cp4 19:27 Drug: Aspirin PO Chewable Tablet 324 mg PO once; 81 mg tablets x 4 Route: PO; cp4 20:09 Follow up: Response: No adverse reaction cp4 19:27 Drug: DuoNeb Nebulize (2.5 mg - 0.5 mg) 3 ml Nebulizer once Route: Nebulizer; cp4 20:09 Follow up: Response: No adverse reaction cp4 21:37 Drug: morphine IVP or IV 4 mg IVP once over 4 mins Route: IVP; Infused Over: 4 mins; cp4 Site: right forearm; 22:33 Follow up: Response: No adverse reaction cp4 21:38 Not Given (Hemodynamic Parameters): [id number] mg IVP once; if systolic pressure cp4 greater than 160 Medication: 20:10 VIS not applicable for this client. cp4 Outcome: 21:24 Decision to Hospitalize by Provider. cp 01/02 15:10 Patient left the ED. bp Signatures: Dispatcher [employer] EDMS Yusef Brush PA PA cp Peltier, Brian, MARIELLA RN Lia Dickinson cp4
--- NOTE | 2025-01-01 21:25 | EDPHYS ---
Physician Documentation [facility] Name: Rosina Odonnell Age: 89 yrs Sex: Female : 1935 Arrival Date: 01/01/2025 Time: 17:36 Bed 24 Private MD: ED Physician Yusef Echavarria HPI: 01/01 18:00 This 89 yrs old Female presents to ER via EMS with complaints of Shortness Of Breath. cp 18:00 The patient has shortness of breath at rest. 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 Duration: The symptoms are continuous. Associated signs and symptoms: Pertinent positives: chest pain, Pertinent negatives: productive cough, fever. Severity of symptoms: in the emergency department the symptoms have improved mildly. Patient on oxygen and denies home oxygen use. Historical: - Allergies: 17:51 Augmentin; bp 17:51 PENICILLINS; bp 17:51 Sulfa (Sulfonamide Antibiotics); bp - PMHx: 17:51 Asthma; Hypertension; Multiple Sclerosis; Seizure; bp - PSHx: 17:51 EGD; GALLBLADDER; sinus surgery; hysterectomy; bp - Immunization history:: Adult Immunizations up to date. - Infectious Disease History:: Denies. - Social history:: Smoking status: unknown. ROS: 18:05 Constitutional: Negative for body aches, chills, fever, poor PO intake, cp 18:05 Eyes: Negative for injury, pain, redness, and discharge, cp 18:05 ENT: Negative for drainage from ear(s), ear pain, sore throat, difficulty swallowing, difficulty handling secretions, 18:05 Cardiovascular: Positive for chest pain, Negative for edema, palpitations, 18:05 Respiratory: Positive for shortness of breath, at rest. 18:05 Abdomen/GI: Negative for abdominal pain, vomiting, diarrhea, constipation, 18:05 Neuro: Negative for altered mental status, dizziness, headache, numbness, syncope, near syncope, weakness, 18:05 All other systems are negative, Exam: 18:10 Constitutional: The patient appears in no acute distress, alert, awake, cp non-diaphoretic, non-toxic, well developed, well nourished, 18:10 Head/Face: Normocephalic, atraumatic. cp 18:10 Eyes: Periorbital structures: appear normal, Conjunctiva: normal, no exudate, no injection, Sclera: no appreciated abnormality, Lids and lashes: appear normal, bilaterally, 18:10 ENT: External ear(s): are unremarkable, Nose: is normal, Mouth: Lips: moist, Oral mucosa: moist, Posterior pharynx: Airway: no evidence of obstruction, patent, 18:10 Neck: ROM/movement: is normal, is supple, without pain, no range of motions limitations, no meningismus, no nuchal rigidity, 18:10 Chest/axilla: Inspection: normal, 18:10 Cardiovascular: Rate: normal, Rhythm: regular, Edema: is not appreciated, JVD: is not appreciated, 18:10 Respiratory: the patient does not display signs of respiratory distress, Respirations: labored breathing, that is mild, shallow respirations, that is mild, Breath sounds: decreased breath sounds, that are mild, throughout, rhonchi, are not appreciated, stridor, is not appreciated, 18:10 Abdomen/GI: Inspection: abdomen appears normal, Palpation: abdomen is soft and non-tender, in all quadrants, 18:10 Back: pain, is absent, ROM is normal, 18:10 Neuro: Orientation: to person, place \T\ time. Mentation: is normal, Motor: moves all fours, strength is normal, Sensation: is normal, Vital Signs: 17:50 BP 136 / 80; Pulse 94; Resp 16; Temp 98; Pulse Ox 95% on 3 lpm NC; bp 19:00 BP 170 / 70; Pulse 69; Resp 18; Pulse Ox 92% ; cp4 21:00 BP 127 / 53; Pulse 86; Resp 18; Pulse Ox 95% on 2 lpm NC; cp4 22:33 BP 122 / 71; Pulse 79; Resp 18; Pulse Ox 99% on 2 lpm NC; cp4 MDM: 18:20 Medical Screening Exam initiated cp 21:25 Data reviewed: vital signs, nurses notes, lab test result(s), EKG, radiologic studies, cp CT scan, plain films, and as a result, I will admit patient. 21:25 Differential diagnosis: asthma, CHF exacerbation, Chronic Obstructive Pulmonary Disease cp Myocardial Infarction pneumonia, Pneumothorax pulmonary edema, Pulmonary Embolism Sepsis Unstable Angina aortic dissection. Antibiotic administration: Not indicated, the patient does not have an appreciated infiltrate. Consideration of Admission/Observation Patient was admitted/placed on observation. I considered the following discharge prescriptions or medication management in the emergency department Medications were administered in the Emergency Department. See MAR. Care significantly affected by the following chronic conditions: Hypertension, multiple sclerosis, asthma. Counseling: I had a detailed discussion with the patient and/or guardian regarding the historical points, exam findings, and any diagnostic results supporting the discharge/admit diagnosis, lab results, radiology results, the need for further work-up and treatment in the hospital. Response to treatment: the patient's symptoms have markedly improved after treatment, and as a result, I will admit patient. 01/01 17:56 Order name: Basic Metabolic Panel; Complete Time: 19:42 bp 01/01 19:42 Interpretation: Normal except: GLUC 142; BUN 29; CRE 1.06; GFR 51. cp 01/01 17:56 Order name: CBC with Diff; Complete Time: 19:42 bp 01/01 19:42 Interpretation: Normal except: RBC 3.49; HGB 10.7; HCT 32.8; MPV 7.2; EOSINOPHIL % 5.1. cp 01/01 17:56 Order name: NT PRO-BNP; Complete Time: 19:42 bp 01/01 21:20 Interpretation: Reviewed. cp 01/01 17:56 Order name: PT-INR; Complete Time: 19:42 bp 01/01 17:56 Order name: Troponin HS; Complete Time: 19:42 bp 20 18:27 Order name: COVID-19 Ag + Flu A+B Ag; Complete Time: 21:19 cp 01/01 21:19 Interpretation: Reviewed. cp 01/01 23:29 Order name: CBC with Automated Diff EDMS 01/01 23:29 Order name: CBC with Automated Diff EDMS 01/01 23:29 Order name: Comprehensive Metabolic Panel EDMS 01/01 23:29 Order name: Comprehensive Metabolic Panel EDMS 01/02 08:17 Order name: Troponin High Sensitivity EDMS 01/02 08:54 Order name: CBC Smear Scan EDMS 01/01 17:56 Order name: XRAY Chest (1 view); Complete Time: 19:42 bp 01/01 19:43 Order name: CT Aorta for Dissection; Complete Time: 21:19 cp 01/01 17:56 Order name: EKG; Complete Time: 17:56 bp 01/01 17:56 Order name: Cardiac monitoring; Complete Time: 17:58 bp 01/01 17:56 Order name: EKG - Nurse/Tech; Complete Time: 17:58 bp 01/01 17:56 Order name: IV Saline Lock; Complete Time: 19:03 bp 01/01 17:56 Order name: Labs collected and sent; Complete Time: 19:03 bp 01/01 17:56 Order name: O2 Per Protocol; Complete Time: 17:58 bp 01/01 17:56 Order name: O2 Sat Monitoring; Complete Time: 17:58 bp Administered Medications: 19:26 Drug: MethylPrednisoLONE IVP 80 mg IVP once Route: IVP; Site: right forearm; cp4 20:09 Follow up: Response: No adverse reaction cp4 19:27 Drug: Aspirin PO Chewable Tablet 324 mg PO once; 81 mg tablets x 4 Route: PO; cp4 20:09 Follow up: Response: No adverse reaction cp4 19:27 Drug: DuoNeb Nebulize (2.5 mg - 0.5 mg) 3 ml Nebulizer once Route: Nebulizer; cp4 20:09 Follow up: Response: No adverse reaction cp4 21:37 Drug: morphine IVP or IV 4 mg IVP once over 4 mins Route: IVP; Infused Over: 4 mins; cp4 Site: right forearm; 22:33 Follow up: Response: No adverse reaction cp4 21:38 Not Given (Hemodynamic Parameters): [id number] mg IVP once; if systolic pressure cp4 greater than 160 Disposition: 01/03 14:46 Co-signature as Attending Physician, Yusef Echavarria MD I agree with the assessment and ervin plan of care. Disposition Summary: 01/01/25 21:24 Hospitalization Ordered Notes: Hospitalization Status: Inpatient Admission cp Condition: Stable cp Problem: new cp Symptoms: have improved cp Bed/Room Type: Standard cp Provider: Casey Kohler(01/02/25 03:38) cp Location: Telemetry/MedSurg (Inpatient)(01/02/25 13:47) em1 Room Assignment: 214(01/02/25 13:47) em1 Diagnosis - Unspecified asthma with (acute) exacerbation cp - Hypoxemia cp - Chest pain, unspecified cp Forms: - Medication Reconciliation Form cp - SBAR form cp - Leadership Thank You Letter cp Signatures: Dispatcher [employer] Yusef Colón MD MD cha Martinez, Shabbir em1 Yusef Brush, PA PA cp James Reyes, RN RN bp Alessandra Espinoza, RN RN vc1 Lia Kennedy cp4 Corrections: (The following items were deleted from the chart) 01/01 17:56 17:56 BASIC METABOLIC PANEL+C.LAB.BRZ ordered. EDMS EDMS 17:56 17:56 CBC+H.LAB.BRZ ordered. EDMS EDMS 17:56 17:56 PROBNP+C.LAB.BRZ ordered. EDMS EDMS 17:56 17:56 PROTIME (+INR)+COAG.LAB.BRZ ordered. EDMS EDMS 17:56 17:56 Troponin High Sensitivity+C.LAB.BRZ ordered. EDMS EDMS 19:44 19:44 Angio Aorta For Dissection+CT.RAD.BRZ ordered. EDMS EDMS 22:44 21:24 Telemetry/MedSurg (Inpatient) cp vc1 22:44 21:24 cp vc1 01/02 03:38 01/01 21:24 Antoni Sweeney cp 01/02 13:47 01/01 22:44 [facility] ER HOLD vc1 em1 01/02 13:47 01/01 22:44 ERHOLD- vc1 em1
--- NOTE | 2025-01-01 23:23 | P.HP ---
Certification for Inpatient Patient admitted to: Inpatient With expected LOS: >2 Midnights Practitioner: I am a practitioner with admitting privileges, knowledge of patient current condition, hospital course, and medical plan of care. Services: Services provided to patient in accordance with Admission requirements found in Title 42 Section 412.3 of the Code of Federal Regulations Patient History Date of Service: 01/01/25 Reason for admission: SOB History of Present Illness: ergies: 01/01 17:51 Augmentin; bp 17:51 PENICILLINS; bp 17:51 Sulfa (Sulfonamide Antibiotics); bp - PMHx: 17:51 Asthma; Hypertension; Multiple Sclerosis; Seizure; bp - PSHx: 17:51 EGD; GALLBLADDER; sinus surgery; hysterectomy; Allergies amoxicillin trihydrate [From Augmentin] Allergy (Intermediate, Verified 09/17/24 01:25) Itching potassium clavulanate [From Augmentin] Allergy (Intermediate, Verified 09/17/24 01:25) Itching Sulfa (Sulfonamide Antibiotics) [Sulfa(Sulfonamide Antibiotics)] Allergy (Intermediate, Verified 09/17/24 01:25) Itching Home Medications: Levetiracetam [Keppra] 750 mg PO BID 09/21/18 Levothyroxine Sodium 0.5 mg PO DAILY 09/21/18 Pregabalin [Lyrica] 300 mg PO DAILY 09/21/18 Mirtazapine 15 mg PO BEDTIME 06/04/24 Oxycodone HCl/Acetaminophen [Oxycodone-Acetaminophn 7.5-325] 1 tab PO TIDP PRN 06/04/24 Valsartan 160 mg PO BID 06/04/24 carvediloL [Coreg*] 6.25 mg PO BID 08/22/24 Albuterol Inhaler [Ventolin Inhaler*] 2 puff IH Q4HP PRN 09/17/24 - Past Medical/Surgical History Diabetic: No -: HTN, -: diverticulitis -: OA, osteopenia -: hyperthyroid -: hyperlipidemia -: Vitamin b12 def' -: anemia -: multiple sclerosis -: asthma -: migrain -: depression -: gerd -: hyst -: lumpectomy left breast -: sinus sx -: right elbow -: urethral dilation -: left shoulder Psychosocial/ Personal History: Lives with , retired - Family History Mother -: Hypertension Sister -: Hypertension - Social History Alcohol use: No CD- Drugs: No Caffeine use: No Physical Examination - Studies Laboratory Data (last 24 hrs) 01/01/25 01/01/25 01/01/25 18:49 18:49 18:49 WBC 8.50 Hgb 10.7 L Hct 32.8 L Plt Count 244 PT 11.3 INR 0.99 Sodium 137 Potassium 5.0 BUN 29 H Creatinine 1.06 H Glucose 142 H Assessment and Plan - Advance Directives Does patient have a Living Will: No Does patient have a Durable POA for Healthcare: No
[2025-01-01] MEDS ORDERED: ALBUTEROL 2.5 MG/3 ML NEB SOL NEB PRN (23:24)
[2025-01-01] MEDS ORDERED: IPRATROPIUM BROM 0.5MG/2.5ML NEB PRN (23:24)
[2025-01-01] MEDS ORDERED: ONDANSETRON 4 MG/2 ML VIAL IV PRN (23:24)
[2025-01-01] MEDS ORDERED: ACETAMINOPHEN 325 MG TABLET PO PRN (23:24)
[2025-01-02 07:14] LABS: Absolute Lymphocytes (CBC) 0.7 K/uL (0.7-4.9); Absolute Monocytes 0.1 K/uL (0.1-1.3); Absolute Neutrophil 5.4 K/uL (1.8-8.0); Basophils % 0.4 % (0-1.3); Hematocrit 29.1 % (36.0-45.0); Hemoglobin 9.6 g/dL (12.0-15.0); Lymphocytes % 11.2 % (15.3-44.8); MCH 30.5 pg (27.0-35.0); MCHC 32.9 g/dL (32.0-36.0); MCV 92.7 fL (80-100); MPV 7.4 fL (7.6-11.3); Neutrophils % 86.4 % (41.7-73.7); Nucleated Red Blood Cells % 0.1 % (0-0); Platelets 218 thou/uL (152-406); RBC Red Blood Cell Count 3.13 M/uL (3.86-4.86); Red Cell Distribution Width 14.4 % (12.1-15.2)
[2025-01-02] MEDS ORDERED: DIPHENHYDRAMINE 25 MG TAB/CAP PO PRN (07:24)
[2025-01-02] MEDS ORDERED: HOME MED 1 EA UNK (Oxycodone Hcl/Acetaminophen [Oxycodone-Acetaminophn 7.5-325] Tablet) PO PRN (07:24)
[2025-01-02 07:33] LABS: AST/SGOT 14 U/L (15-37); Albumin 3.1 g/dL (3.4-5.0); Alkaline Phosphatase 99 U/L (45-117); Anion Gap 7.3 mEq/L (5.0-15.0); BUN Blood Urea Nitrogen 30 mg/dL (7-18); Bicarbonate 31 mEq/L (21-32); Bilirubin Total 0.2 mg/dL (0.2-1.0); Globulin 3.2 g/dL (2.3-3.5); Glomerular Filtration Rate 53 ml/min (=/>90); Glucose Level 202 mg/dL (74-106); Potassium 5.3 mEq/L (3.5-5.1); Protein, Total 6.3 g/dL (6.4-8.2); Sodium Level 137 mEq/L (136-145)
[2025-01-02 07:34] LABS: ALT/SGPT < 14 U/L (13-56)
[2025-01-02 08:54] LABS: Blood Morphology Comment NOT SEEN (NOT SEEN); Platelet Estimate ADEQ; White Blood Cell Scan OK (OK)
[2025-01-02] MEDS: METHYLPREDNISOLONE 40 MG INJ IV SCH (09:00)
[2025-01-02] MEDS: levETIRAcetam 500 MG TAB PO SCH (09:00)
[2025-01-02] MEDS: PREGABALIN 75 MG CAP PO SCH (09:00)
[2025-01-02] MEDS: carvediloL 6.25 MG TAB PO SCH (09:00)
[2025-01-02] MEDS ORDERED: METHYLPREDNISOLONE 125 MG INJ IV SCH (09:00)
[2025-01-02] MEDS: PANTOPRAZOLE 40MG TABLET PO SCH (09:00)
[2025-01-02] MEDS: VALSARTAN 160 MG TAB PO SCH (09:00)
[2025-01-02] MEDS: ENOXAPARIN 30 MG/0.3 ML SQ SCH (09:00)
[2025-01-02] MEDS ORDERED: IPRATROPIUM BROM 0.5MG/2.5ML ONE (09:29)
[2025-01-02] MEDS ORDERED: ALBUTEROL 2.5 MG/3 ML NEB SOL ONE (09:29)
[2025-01-02] MEDS: ALBUTEROL 2.5 MG/3 ML NEB SOL NEB SCH (09:30)
[2025-01-02] MEDS: IPRATROPIUM BROM 0.5MG/2.5ML NEB SCH (09:30)
[2025-01-02] MEDS ORDERED: carvediloL 6.25 MG TAB ONE (10:42)
[2025-01-02] MEDS ORDERED: PANTOPRAZOLE 40MG TABLET PO ONE (10:42)
[2025-01-02] MEDS ORDERED: ENOXAPARIN 30 MG/0.3 ML SQ ONE (10:43)
[2025-01-02] MEDS ORDERED: PREGABALIN 75 MG CAP PO ONE (10:43)
[2025-01-02] MEDS: LEVOTHYROXINE SOD 0.025 MG TAB PO SCH (11:00)
[2025-01-02] MEDS ORDERED: METHYLPREDNISOLONE 125 MG INJ ONE (11:22)
[2025-01-02] MEDS ORDERED: levETIRAcetam 500 MG TAB ONE (11:23)
[2025-01-02] MEDS ORDERED: Oxycodone HCl/Acetaminophen 5/325 MG TAB ONE (11:39)
[2025-01-02] MEDS: Oxycodone HCl/Acetaminophen 5/325 MG TAB PO PRN (11:43)
[2025-01-02] MEDS: MIRTAZAPINE 15 MG TAB PO SCH (20:32)
--- NOTE | 2025-01-02 20:55 | HP ---
Date of Admission: 01/02/2025 Chief Complaint: Cough, congestion, shortness of breath. History Of Present Illness: This is an 89-year-old pleasant female patient, who came into emergency room yesterday evening with complaints of cough, congestion, shortness of breath. Denies any fever, chills, nausea, vomiting. After she was evaluated in ER, she was admitted to hospital and when I saw her this morning, she was still in emergency room. The patient received steroid nebulizer treatment and 1 dose of morphine last night. Allergies: AUGMENTIN CAUSING ITCHING, SULFA CAUSING ITCHING. Medications At Home: She takes Oxycodone, albuterol inhaler, carvedilol 6.25 mg 2 times a day, Vitamin D3 2000 units daily, Senokot S 2 tablets 2 times a day, fluticasone nasal spray 1 spray each nostril 2 times a day, Advair inhaler 1 puff 2 times a day, hyoscyamine 0.125 mg 3 times a day as needed, ibandronate 150 mg once a month, levetiracetam 750 mg two times a day, levocetirizine 5 mg daily, levothyroxine 50 mcg daily, meclizine as needed, mirtazapine 15 mg daily at bedtime, Zofran p.r.n., pregabalin 150 mg daily, trazodone 50 mg takes 0.5 to 1 tablet at bedtime, valsartan 160 mg daily. Social History: Negative for smoking and alcohol use. Review of Systems: Respiratory: As mentioned above. All other systems reviewed and negative. Past Medical History: Significant for history of recurrent urinary tract infection and she recently took antibiotic as prescribed from emergency room about a week ago. Insomnia, hypertension, asthma, osteoarthritis at multiple sites diverticulosis, gastroesophageal reflux disease, multiple sclerosis, hypothyroidism, hyperlipidemia, rosacea, prior history of anemia with GI bleeding. Past Surgical History: Significant for sinus surgery, removal of benign breast tumor, hysterectomy, shoulder surgery, and toe surgery. Family History: Father had subdural hematoma. Mother had hypertension Physical Examination: Vital Signs: Height 5 feet 4 inches, weight 89 pounds, temperature 98, pulse 98, respiratory rate 20, blood pressure 115/99, oxygen saturation 98% on 2 L nasal cannula oxygen. General: Awake, alert, oriented, not in distress. HEENT: Head atraumatic, normocephalic. Conjunctivae nonerythematous. Sclerae white. Mouth, no thrush or edema noted. Ears/Nose, no mass, lesion, discharge noted. Neck: Supple. No JVD, lymph nodes, bruit, thyromegaly noted. Lungs: Bilateral good equal air entry. Clear to auscultation. No rhonchi. No rales. Heart: Normal heart sounds, no murmur or gallop. Abdomen: Soft, bowel sounds normal. No guarding, rigidity, tenderness, mass, hepatosplenomegaly, distention, or bruit noted. Extremities: No leg edema. No calf tenderness. Skin: No rash, ulcer, cellulitis. Lymphatics: No lymph node enlargement in neck, supraclavicular, infraclavicular region. Neuro: No focal neurological deficit. Chest: Unremarkable. External Genitalia: Deferred. Rectal: Deferred. Laboratory Data: WBC 8.5, hemoglobin 10.7, platelets 244. Sodium 137, potassium 5, chloride 107, bicarb 30, BUN 29, creatinine 1.06, glucose 142. Troponin 8.9. ProBNP 1498. Influenza A, B, and COVID-19 test negative. Chest x-ray, no acute cardiopulmonary changes. CT angiogram of chest, abdomen, and pelvis shows 4.2 cm aortic aneurysm involving distal aspect of ascending thoracic aorta, unchanged from before, gastric distention, moderate amount of stool throughout the colon, and mild to moderate calcification involving aorta, and a short segment of dissection in lower abdominal aorta which is chronic and unchanged from prior studies. Impression: 1. Acute exacerbation of mild persistent asthma. 2. Chronic diastolic heart failure. 3. Anemia, chronic, unspecified. 4. Hypertension. 5. Hyperlipidemia. 6. Aortic aneurysm, ascending thoracic aorta. 7. Chronic dissection of abdominal aorta. 8. Hyperlipidemia. 9. Hypertension. 10. Hypothyroidism. 11. Diverticulosis. 12. Osteoarthritis, multiple sites. 13. Multiple sclerosis. 14. Gastritis. 15. Seizure disorder. Plan: We will go ahead and admit the patient to hospital for further evaluation and management of this problem. The patient is appropriate for inpatient and is expected to spend 2 midnights in hospital. For her asthma exacerbation, we will continue oxygen nebulizer treatment with albuterol and Atrovent every 6 hours and Solu-Medrol 40 mg IV every 12 hours. For hypertension, we will continue her carvedilol and valsartan per order. Hold if systolic blood pressure less than 120. For her seizure disorder, she is on levetiracetam and we will continue that. No need for further intervention. For her hypothyroidism, we will continue her levothyroxine per order and no need for further intervention. We will continue her pantoprazole as she takes at home along with her other usual home medications. Total time spent 65 minutes including review of last hospital admission record from 09/17/2024, review of emergency room visit record, performing today's evaluation and management. Lovenox was ordered for DVT prophylaxis. I will see her tomorrow for followup. ANH/MODDee Voice ID: [id number]
[2025-01-03 00:54] VITALS: BMI 15.4
[2025-01-03 04:19] VITALS: TEMP 97.8
[2025-01-03 08:44] VITALS: BP 109/65
[2025-01-03 08:50] VITALS: O2SAT 93
[2025-01-03] MEDS: METHYLPREDNISOLONE 125 MG INJ IV ONE (09:30)
--- NOTE | 2025-01-03 20:58 | DS ---
Date of Discharge: 01/03/2025 Disposition: Discharged to go home. Physical Examination: HEENT: Unremarkable. Lungs: Clear to auscultation. Heart: Sounds normal. Abdomen: Soft. Bowel sounds normal. No guarding, rigidity, tenderness, distention. Extremities: No leg edema. Laboratory Data: Upon admission, WBC 8.5, hemoglobin 10.7, platelets 244. Yesterday, WBC 6.2, hemog lobin 9.6, platelets 218. For chemistry upon admission, sodium 137, potassium 5, chloride 107, bicar b 30, BUN 29, creatinine 1.06, glucose 142. Initial troponin 8.9. Second troponin yesterday was 8.6 . Chemistry yesterday, sodium 137, potassium 5.3, chloride 104, bicarb 31, BUN 30, creatinine 1.02, glucose 202. Liver function tests unremarkable. Hospital Course: This is an 89-year-old female patient, who was admitted to hospital with cough, con gestion, shortness of breath. Please see dictated H and P for more information. After the patient w as evaluated in emergency room, she was admitted to hospital with acute exacerbation of asthma. She was started on nebulizer treatment and IV steroid which was Solu-Medrol. Her other home medications were continued and today her condition was much better. This morning when I saw her, no new complain ts or problems reported. The patient did not have any cough, congestion, wheezing, or shortness of b reath. Her lungs were clear. She was not using any accessory muscles of respiration. The patient w as discharged to go home in stable and improved condition with following discharge medications and in structions. Final Diagnoses: 1. . 2. . 3. . Discharge Medications And Instructions: 1. Continue all prior home medications. 2. Take prednisone 10 mg take 3 tablets daily for 3 days, then 2 tablets daily for 3 days, then 1 tab let daily for 3 days, then stop. 3. Follow up at my office next week. Total time spent today 25 minutes. ANH/MODL Voice ID: [id number] Report ID: [id number]
--- NOTE | 2025-01-04 12:47 | EKG ---
Test Date: 2025-01-01 Test Time: 18:02:15 Epilepsy Physician: AM MEASUREMENT RESULTS: Intervals: Rate: 76 ME: 180 QRSD: 90 QT: 402 QTc: 452 [place]: P: 66 ME: 180 QRS: 33 T: 66 INTERPRETIVE STATEMENTS: Sinus rhythm with marked sinus arrhythmia Otherwise normal ECG Compared to ECG 09/16/2024 22:05:25 No significant changes Electronically Signed On 01-04-25 12:40:32 CDT by Wilbert Daly
== END 2025-01-03 11:45 | disposition home or self-care (01) | DRG 202 ==
LOC: ER 17:36 → ERHOLD 23:24 → 2ND 01-02 13:53
PROVIDERS: ADMIT Family Medicine; ATTEND Internal Medicine
DX: J45.31 Mild persistent asthma with (acute) exacerbation (principal); I71.02 Dissection of abdominal aorta; I50.32 Chronic diastolic (congestive) heart failure; I11.0 Hypertensive heart disease with heart failure; G35 Multiple sclerosis; E78.5 Hyperlipidemia, unspecified; D64.9 Anemia, unspecified; I10 Essential (primary) hypertension; E03.9 Hypothyroidism, unspecified; I71.21 Aneurysm of the ascending aorta, without rupture; M19.09 Primary osteoarthritis, other specified site; G40.909 Epilepsy, unspecified, not intractable, without status epilepticus; K21.9 Gastro-esophageal reflux disease without esophagitis; K29.70 Gastritis, unspecified, without bleeding; K57.90 Diverticulosis of intestine, part unspecified, without perforation or abscess without bleeding; Z88.0 Allergy status to penicillin; Z88.2 Allergy status to sulfonamides; Z88.1 Allergy status to other antibiotic agents; Z79.02 Long term (current) use of antithrombotics/antiplatelets; Z90.710 Acquired absence of both cervix and uterus; Z79.890 Hormone replacement therapy; Z79.899 Other long term (current) drug therapy; Z11.52 Encounter for screening for COVID-19
CPT/HCPCS: 36415; 71045; 71275; 74175; 80048; 80053; 83880; 84484; 85025; 85610; 87428; 93005; 94640; 94760; 96374; 96375; 99284; J1650; J2919; J7613; J7644; Q9967

== ENCOUNTER 2025-06-06 11:30 | Inpatient (IN) | payer OTHER ==
--- OUTSIDE RECORDS SUMMARY | 2025-06-06 11:44 | XMS REPORT | Continuity of Care Document ---
Author Name Unknown Address [address] [place] [address] [facility] Address [address] [place] [address] Care Team Providers Care [employer] Chief Scientist Name Role Phone Matthieu Spears MD Primary Care Physician [phone] Joe Puente MD Attending Clinician [phone], [facility] Attending Clinician Unavailable Den Shrestha MD Attending Clinician [phone] Pascale Bahena MA Attending Clinician Monisha Rain MD, Alia Attending Clinician [phone] DEN SHRESTHA Attending Clinician Unavail able Cheryl HAIRSTON, Hibseun T Attending Clinician [phone] Jg HAIRSTON, Coleman Attending Clinician [phone] Taryn HAIRSTON, Jaylen Attending Clinician [phone] JAYLEN SERNA Attending Clinician Unavailable Alon HAIRSTON, Campbell Attending Clinician [phone] Mallory HAIRSTON, Jacob Momin Attending Clinician [phone] Sheyla De La Rosa CRNA Attending Clinician [phone] Miranda HAIRSTON, Mike Donis Attending Clinician [phone] MIKE GARZA Attending Clinician Unavailadrienne Garza MD, [facility] Attending Clinician [phone] MAYI SIMONS Attending Clinician Unavailab clifton Snyder RN, Dakotah Peña Attending Clinician Unavail able Avani Goodwin Attending Clinician [phone] Richard HAIRSTON, Sree Attending Clinician [phone] Diego Herrera MD Attending Clinician [phone] Shaun HAIRSTON, Torrey Donnelly Attending Clinician [phone] Avani LOUIS Attending Clinician Unavailable Keren Mares DO Attending Clinician [phone] KEREN MARES Attending Clinician Unavailab COLEMAN Tillman Admitting Clinician UnavailMIKE Ashley Admitting Clinician UnavailTorrey Gannon MD Admitting Clinician [phone] KEREN MARES Admitting Clinician Unavailab clifton Payers Payer Name Policy Type Policy Number Effective Date Expirati on Date Source UHC MEDICARE ADVANTAGE Medicare [id number] 2023 00:00:00 UNITED MEDICARE HMO [id number] 2021 00:00:00 [employer] MEDICARE ERS [id number] 2017 00:00:00 2021 00:00:00 Problems Condition Name Condition Details Condition Category Status Onset Date Resolution Date Last Treatment Date Treating Clinician Comments Source Hypertensi on Hypertensi on Disease Active - 00:00: 00 Marlon Brandt Migraines Migraines Disease Active - 00:00: 00 Marlon Brandt Vertigo Vertigo Disease Active - 00:00: 00 Marlon Brandt Multiple sclerosis Multiple sclerosis Disease Active 1- 00:00: 00 Marlon Brandt Melena Melena Disease Active 09-15 00:00: 00 Marlon Brandt Right knee pain Right knee pain Disease Active 09-15 00:00: 00 Marlon Brandt Duodenal ulcer Duodenal ulcer Disease Active 2023-09 00:00: [address] DR REFERRAL [facility] 2021-09 0- 00:00: 00 2022-07-03 16:50:00 Marlon Andrade 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 8- 00:00: 00 Marlon Brandt Pancytopen ia Pancytopen ia Disease Active 8- 00:00: 00 Marlon Brandt Elevated brain natriureti c peptide (BNP) level Elevated brain natriureti c peptide (BNP) level Disease Active 8- 00:00: 00 [facility] Elevated brain natriureti c peptide (BNP) level Elevated brain natriureti c peptide (BNP) level Disease Active 8-03 00:00: 00 [facility] OPEN RIGHT HUMERUS FX OPEN RIGHT HUMERUS FX Active 02/03/2018 [facility] Diagnosis Active 02-03 00:00: 00 2018-02-09 19:37:00 Marlon Andrade Asthma exacerbati on Asthma exacerbati on Disease Active 2016-09 00:00: 00 Marlon Brandt Lesion of lateral popliteal nerve, 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, right lower limb Disease Active 11-27 00:00: 00 Marlon Brandt 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 11/27/2016 Problem 12/07/2023 [facility], Royce Nguyen [facility] Problem Active 11-27 00:00: 00 2023-12-07 11:39:04 Marlon Andrade GI BLEED, ANEMIA GI BLEED, ANEMIA Active 10/22/2015 [facility] Diagnosis Active 10-22 00:00: 00 2015-11-01 21:55:00 Marlon Andrade Anemia Anemia Disease Active 10-17 00:00: 00 Marlon Brandt 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, intractabl e, without status epilepticu s 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, intractabl e, without status epilepticu s Disease Active 09-27 00:00: 00 Marlon Brandt 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, intractabl e, without status epilepticu s 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, intractabl e, without status epilepticu s Disease Active 09-27 00:00: 00 Marlon Brandt Cellulitis of hand, left Cellulitis of hand, left Disease Active 2014-09 00:00: 00 Marlon Brandt No known active problems No known active problems Disease [facility] Anxiety (finding) Anxiety (finding) Resolved Problem 04/14/2022 Yesika Durán,[facility] Problem Resolve d 2022-04-14 02:52:31 Marlon Andrade Asthma (disorder) Asthma (disorder) Resolved Problem [facility]2022 [facility] Problem Resolve d 2022-04-14 02:52:31 Marlon Andrade Depressive disorder (disorder) Depressive disorder (disorder) Resolved Problem 04/14/2022 [facility] Problem Resolve d 2022-04-14 02:52:31 Marlon Andrade Hyperthyro idism (disorder) Hyperthyro idism (disorder) Resolved Problem 04/14/2022 [facility] [place] [facility] Problem Resolve d 2022-04-14 02:52:31 Marlon Andrade Seizure (finding) Seizure (finding) Resolved Problem 04/14/2022 [facility] [place] [facility] Problem Resolve d 2022-04-14 02:52:31 Marlon Andrade GASTROINTE STINAL HEMORRHAGE , UNSPECIFIE D GASTROINTE STINAL HEMORRHAGE , UNSPECIFIE D Active [facility] Diagnosis Active 2015-11-01 21:55:00 Marlon Andrade ANEMIA, UNSPECIFIE D ANEMIA, UNSPECIFIE D Active [facility] Diagnosis Active 2015-11-01 21:55:00 Marlon Andrade UNSP FRACTURE OF SHAFT OF HUMERUS, UNSP UNSP FRACTURE OF SHAFT OF HUMERUS, UNSP Active [facility] Diagnosis Active 2018-02-09 19:37:00 Marlon Andrade Displaced fracture of right patella Displaced fracture of right patella Disease Resolve d 1- 00:00: 00 2024-09-15 00:00:00 2024-09-15 15:17:45 Marlon Andrade Epic Nausea & vomiting Nausea & vomiting Disease Resolve d 1-02 00:00: 00 2024-09-15 00:00:00 2024-09-15 15:17:45 Marlon Andrade Epic Hematemesi s Hematemesi s Disease Resolve d 1-02 00:00: 00 2024-09-15 00:00:00 2024-09-15 15:17:45 Marlon Andrade Epic Acute respirator y failure with hypoxia (CMS/HCC) Acute respirator y failure with hypoxia (CMS/HCC) Disease Resolve d 8-03 00:00: 00 2024-09-15 00:00:00 2024-09-15 15:17:45 Marlon Andrade Epic COVID-19 COVID-19 Disease Resolve d 8-02 00:00: 00 2024-09-15 00:00:00 2024-09-15 15:17:45 Marlon Andrade Epic Abnormal renal function Abnormal renal function Disease Resolve d 2016-09 2 00:00: 00 2024-09-15 00:00:00 2024-09-15 15:17:45 Marlon Andrade Epic Dehydratio n Dehydratio n Disease Resolve d 2 00:00: 00 2024-09-15 00:00:00 2024-09-15 15:17:45 Marlon Andrade Epic Weakness Weakness Disease Active 2 00:00: 00 2024-09-15 00:00:00 2024-09-15 15:17:45 Marlon Andrade Epic Exacerbati on of multiple sclerosis (disorder) Exacerbati on of multiple sclerosis (disorder) Resolved 01/23/2017 Problem 04/14/2022 Yesika Durán,[facility] Problem Resolve d 01-23 00:00: 00 2022-04-14 02:52:31 2022-04-14 02:52:31 Marlon Andrade Allergies, Adverse Reactions, Alerts Allergy Name Allergy Type Status Severity Reaction(s) Onset Date Inactive Date Treating Clinician Comments Source Amoxicil chaparrita-Pot Clavulan ate Drug Allergy Active 09-15 00:00: 00 Marlon Andrade Epic Sulfa Antibiot ics Drug Allergy Active 09-15 00:00: 00 Marlon Andrade Epic Amoxicil chaparrita-Pot Clavulan ate Propensi ty to adverse reaction s Active Itching 2021-09 00:00: 00 [facility] AMOXICIL CHAPARRITA-POT CLAVULAN ATE Allergy Active Itching 2021-09 00:00: 00 [facility] Penicill ins Drug Allergy Active Itching 04-06 00:00: 00 [facility] Sulfa (Sulfona mide Antibiot ics) Drug Allergy Active Itching 04-06 00:00: 00 [facility] Penicill ins Drug Allergy Active Itching 04-06 00:00: 00 [facility] PENICILL INS Allergy Active Itching 04-06 00:00: 00 [facility] AMOXICIL CHAPARRITA-POT CLAVULAN ATE DRUG Active ITCHING 04-06 00:00: 00 [facility] PENICILL INS Drug Class Active ITCHING 04-06 00:00: 00 [facility] SULFA (SULFONA MIDE ANTIBIOT ICS) Drug Class Active ITCHING 04-06 00:00: 00 [facility] Penicill ins Propensi ty to adverse reaction s Active Itching 04-06 00:00: 00 [facility] Sulfa (Sulfona mide Antibiot ics) Propensi ty to adverse reaction s Active Itching 04-06 00:00: 00 [facility] Amoxicil chaparrita-Pot Clavulan ate Propensi ty to adverse reaction s Active Itching 04-06 00:00: 00 [facility] Penicill ins Propensi ty to adverse reaction s Active Itching 04-06 00:00: 00 [facility] SULFA (SULFONA MIDE ANTIBIOT ICS) Allergy Active Itching 04-06 00:00: 00 [facility] Sulfa (Sulfona mide Antibiot ics) Propensi ty to adverse reaction s Active Itching 04-06 00:00: 00 [facility] sulfa drugs sulfa drugs Active Memoria l Raymond Augmenti n Augmenti n Active Memoria l [place] sulfa drugs sulfa drugs Active Memoria l Raymond Social History Social Habit Start Date Stop Date Quantity Comments Source Gender identity 2023-12-05 19:08:36 Identifies as female gender (finding) [facility] History of tobacco use Passive smoker [facility] History SDOH Alcohol Std Drinks [facility] History SDOH Alcohol Binge [facility] History SDOH Alcohol Comment [facility] ASSERTION Possible [facility] Exposure to SARS-CoV-2 (event) Yes [facility] Alcoholic beverage intake 2025-03-24 00:00:00 2025-03-24 00:00:00 Current non-drinker of alcohol (finding) [facility] History of Social function 2025-03-24 00:00:00 2025-03-24 00:00:00 [facility] Tobacco use and exposure 2025-03-03 00:00:00 2025-03-03 00:00:00 Smokeless tobacco non-user [facility] Sex 2023-12-05 19:08:36 2023-12-05 19:08:36 Female (finding) Arun Brandt Alcohol intake 2022-08-06 00:00:00 2022-08-06 00:00:00 Ex-drinker (finding) [facility] History SDOH Alcohol Frequency 2022-07-31 00:00:00 2022-07-31 00:00:00 1 [facility] Tobacco Comment 2022-07-31 00:00:00 2022-07-31 00:00:00 quit a long time ago [facility] Social History 2015-10-22 19:43:29 2015-10-22 19:43:29 Arun Andrade Sex assigned at 1935 00:00:00 1935 00:00:00 [facility] Smoking Status Start Date Stop Date Source Never smoked tobacco [facility] Ex-smoker 2024-09-15 00:00:00 2024-09-15 00:00:00 Royce Brandt Medications Ordered Medication Name Filled Medication Name Start Date Stop Date Current Medication? Ordering Clinician Indication Dosage Frequency Signature (SIG) Comments Components Source fosfomycin 3 gram packet 04-20 00:00: 00 04-21 04:59 :00 No [id number] 3g Take 3 g by mouth once now for 1 dose. [facility] levETIRAcet am (Keppra) 750 MG tablet levETIRAcet am (Keppra) 750 MG tablet 04-14 00:00: 00 Yes Q.5D TAKE 1 TABLET BY MOUTH IN THE MORNING AND IN THE EVENING Marlon Brandt Nitrofurant oin&Nit. Macrocryst (MACROBID) 100 mg capsule 03-24 00:00: 00 Yes [id number] 100mg Take 1 capsule by mouth in the morning. [facility] levETIRAcet am (KEPPRA) 750 mg tablet 03-03 13:42: 37 Yes 750mg Take 1 tablet by mouth in the morning and 1 tablet in the evening. [facility] carvedilol (COREG) 3.125 mg tablet 03-03 13:42: 37 Yes 6.25mg Take 2 tablets by mouth in the morning and 2 tablets in the evening. [facility] Fluticasone -Salmeterol (ADVAIR DISKUS) 500-50 mcg/dose inhalation disk 03-03 13:42: 37 Yes 1{puff} Inhale 1 Puff in the morning and 1 Puff in the evening. [facility] HYDROcodone -acetaminop hen (NORCO) 10-325 mg tablet 03-03 13:42: 37 Yes 1{tbl} Take 1 tablet by mouth every 6 hours as needed. [facility] methocarbam ol (ROBAXIN) 500 mg tablet 03-03 13:42: 37 Yes 1000mg Take 2 tablets by mouth every evening. [facility] pregabalin (LYRICA) 50 mg capsule 03-03 13:42: 37 Yes 50mg Take 1 capsule by mouth every evening. [facility] esomeprazol e (NEXIUM) 40 mg capsule 03-03 13:42: 37 Yes 40mg Take 1 capsule by mouth in the morning and 1 capsule in the evening. [facility] ALPRAZolam (XANAX) 0.25 mg tablet 03-03 13:42: 37 Yes .25mg Take 1 tablet by mouth at bedtime. [facility] traZODone (DESYREL) 150 mg tablet 03-03 13:42: 37 Yes 150mg Take 1 tablet by mouth at bedtime. [facility] hyoscyamine (LEVSIN) 0.125 mg tablet 03-03 13:42: 37 Yes .125mg Take 1 tablet by mouth as needed. [facility] levothyroxi ne (SYNTHROID) 125 mcg tablet 03-03 13:42: 37 Yes 125ug Take 1 tablet by mouth in the morning. [facility] sucralfate (CARAFATE) 1 gram tablet 03-03 13:42: 37 Yes 1g Take 1 tablet by mouth as needed. [facility] DULoxetine (CYMBALTA) 30 mg capsule 03-03 13:42: 37 Yes 90mg Take 3 capsules by mouth in the morning. Indication s: Take 60 mg every AM and 30 mg every PM [facility] ergocalcife rol (Vitamin D-2) 1.25 MG (66199 UT) capsule ergocalcife rol (Vitamin D-2) 1.25 MG (42597 UT) capsule 09-15 14:56: 28 Yes 1.25mg Take 1.25 mg by mouth 1 time each week. Marlon Brandt sucralfate (Carafate) 1 g tablet sucralfate (Carafate) 1 g tablet 09-15 14:55: 56 Yes Take by mouth. Marlon Brandt Calcium Carb-Cholec alciferol 500-10 MG-MCG tablet Calcium Carb-Cholec alciferol 500-10 MG-MCG tablet 09-15 14:55: 36 Yes 1{tbl} QD Take 1 tablet by mouth 1 time each day. Marlon Brandt oxyCODONE-a cetaminophe n (Percocet) 7.5-325 MG tablet oxyCODONE-a cetaminophe n (Percocet) 7.5-325 MG tablet 09-15 14:54: 54 Yes 1{tbl} Take 1 tablet by mouth. Marlon Brandt omeprazole OTC (PriLOSEC OTC) 20 MG EC tablet omeprazole OTC (PriLOSEC OTC) 20 MG EC tablet 09-15 14:54: 31 Yes 20mg Take 20 mg by mouth in the morning. Take before meals. Do not crush, chew, or split. Marlon Brandt levETIRAcet am (Keppra) 750 MG tablet levETIRAcet am (Keppra) 750 MG tablet 09-15 00:00: 00 04-14 00:00 :00 No 750mg Q.5D Take 1 tablet by mouth in the morning and 1 tablet in the evening. Marlon Andrade [facility] Lasmiditan Succinate (Reyvow) 50 MG tablet Lasmiditan Succinate (Reyvow) 50 MG tablet 09-15 00:00: 00 03-14 23:59 :00 No [id number] 1{tbl} Take 1 tablet by mouth if needed (migraine) . [facility] levothyroxi ne (SYNTHROID) 50 MCG tablet 2023-09 00:00: 00 08-27 23:59 :00 No 50ug Take 1 tablet (50 mcg total) by mouth Daily (0600). [facility] levETIRAcet am (Keppra) 750 MG tablet 2023-09 00:00: 00 Yes 750mg Q.5D Take 1 tablet (750 mg total) by mouth 2 (two) times daily . [facility] pantoprazol e (PROTONIX) 40 MG tablet 2023-09 00:00: 00 Yes 40mg Take 1 tablet (40 mg total) by mouth every 12 (twelve) hours. [facility] sennosides (SENOKOT) 8.6 mg tablet 2023-09 00:00: 00 08-26 23:59 :00 No 8.6mg Q.5D Take 1 tablet (8.6 mg total) by mouth 2 (two) times daily. [facility] carvediloL (COREG) 3.125 MG tablet 2023-09 00:00: 00 08-26 23:59 :00 No 3.13mg Take 1 tablet (3.125 mg total) by mouth 2 (two) times daily with breakfast and dinner. [facility] mirtazapine (REMERON) 15 MG disintegrat ing tablet 2023-09 00:00: 00 09-25 23:59 :00 No 15mg QD Take 1 tablet (15 mg total) by mouth nightly for 30 days. [facility] oxyCODONE-a cetaminophe n (PERCOCET) 7.5-325 mg per tablet 2023-09 00:00: 00 09-05 23:59 :00 No 1{tbl} Take 1 tablet by mouth every 6 (six) hours as needed for pain for up to 10 days Look-ali ke/Sound-a like medication . Max Daily Amount: 4 tablets [facility] vancomycin (VANCOCIN) 125 MG capsule 2023-09 00:00: 00 09-01 23:59 :00 No 125mg Take 1 capsule (125 mg total) by mouth every 6 (six) hours for 6 days. [facility] ciprofloxac in HCl (CIPRO) 250 MG tablet 2023-09 00:00: 00 08-31 23:59 :00 No 250mg Q.5D Take 1 tablet (250 mg total) by mouth 2 (two) times daily for 5 days. [facility] metroNIDAZO LE (FLAGYL) 500 MG tablet 2023-09 00:00: 00 08-31 23:59 :00 No 500mg [id number] 3D Take 1 tablet (500 mg total) by mouth 3 (three) times daily for 5 days Look-ali ke/Sound-a like medication . [facility] carvediloL (COREG) 3.125 MG tablet 2023-09 01:15: 08-26 00:00 :00 No 3.13mg Take 1 tablet (3.125 mg total) by mouth 2 (two) times daily with breakfast and dinner. [facility] hyoscyamine (ANASPAZ,LE VSIN) 0.125 mg tablet 2023-09 01:: 08-26 00:00 :00 No .13mg Take 1 tablet (0.125 mg total) by mouth every 4 (four) hours as needed. [facility] albuterol HFA 90 mcg/act inhaler albuterol HFA 90 mcg/act inhaler 06-08 00:00: 00 Yes 1{puff} Inhale 1 puff. Marlon Brandt Lasmiditan Succinate (Reyvow) 50 MG tablet Lasmiditan Succinate (Reyvow) 50 MG tablet 2024-0 9-10 00:00: 00 09-15 00:00 :00 No [id number] 1{tbl} TAKE 1 TABLET BY MOUTH NEEDED FOR MIGRAINE Marlon Andrade Epic levETIRAcet am (Keppra) 750 MG tablet levETIRAcet am (Keppra) 750 MG tablet 5-31 00:00: 00 09-15 00:00 :00 No Q.5D TAKE 1 TABLET BY MOUTH TWICE DAILY Marlon Andrade Epic levocetiriz ine (Xyzal) 5 MG tablet levocetiriz ine (Xyzal) 5 MG tablet 3-06 00:00: 00 Yes 1{tbl} QD Take 1 tablet by mouth 1 time each day. Marlon Andrade Epic Reyvow 50 mg oral tablet 1-26 18:54: 00 Yes 50 mg = 1 tab, PO, PRN, PRN migraine, X 30 day, # 8 tab, 2 Refill(s), Pharmacy: [facility] #[id number], 167.64, cm, 05/26/23 15:42:00 CDT, Height, 45.455, kg, 05/26/23 15:42:00 CDT, Weight Marlon Andrade levETIRAcet am 750 mg oral tablet 10-06 23:40: 00 Yes = 1 tab, PO, BID, # 60 tab, 3 Refill(s), Pharmacy: [facility] #[id number], 167.64, cm, 05/26/23 15:42:00 CDT, Height, 45.455, kg, 05/26/23 15:42:00 CDT, Weight Marlon Andrade levETIRAcet am 750 mg oral tablet 03-23 21:32: 00 Yes = 1 tab, PO, BID, # 60 tab, 3 Refill(s), Pharmacy: [facility] #[id number], 167.64, cm, 03/23/23 16:05:00 CDT, Height, 46.364, kg, 03/23/23 16:05:00 CDT, Weight Marlon Andrade Reyvow 50 mg oral tablet - 21:32: 00 Yes 50 mg = 1 tab, PO, PRN, PRN migraine, # 8 tab, 2 Refill(s), Pharmacy: [facility] #[id number], 167.64, cm, 03/23/23 16:05:00 CDT, Height, 46.364, kg, 03/23/23 16:05:00 CDT, Weight Renettanicole nicholas Andrade valsartan 160 mg oral tablet 03-23 21:09: 00 Yes TAKE 1 TABLET BY MOUTH DAILY Renettanicole nicholas Andrade trazodone 03-23 21:09: 00 Yes PO, 0 Refill(s) Marlon Andrade valsartan (Diovan) 160 MG tablet valsartan (Diovan) 160 MG tablet 03-23 00:00: 00 Yes TAKE 1 TABLET BY MOUTH DAILY Marlon Andrade Epic TRAZODONE HCL PO TRAZODONE HCL PO 03-23 00:00: 00 09-15 00:00 :00 No PO, 0 Refill(s) Marlon Andrade Epic levETIRAcet am 750 mg oral tablet 12-08 17:52: 00 Yes = 1 tab, PO, BID, # 60 tab, 0 Refill(s), Pharmacy: [facility] #[id number], 167.64, cm, 07/03/22 14:43:00 CDT, Height, 51.5, kg, 07/03/22 14:43:00 CDT, Weight Marlon nicholas Andrade Reyvow 50 mg oral tablet 11-12 22:00: 00 Yes 50 mg = 1 tab, PO, PRN, PRN migraine, # 8 tab, 2 Refill(s), Pharmacy: [facility] #[id number], 167.64, cm, 07/03/22 14:43:00 CDT, Height, 51.5, kg, 07/03/22 14:43:00 CDT, Weight Marlon nicholas Andrade carvediloL (COREG) 3.125 MG tablet 2021-09 17:27: 45 Yes 3.125mg Take 3.125 mg by mouth 2 (two) times daily with breakfast and dinner. [facility] pregabalin (LYRICA) 50 MG capsule 2021-09 17:27: 45 Yes 50mg QD Take 1 capsule (50 mg total) by mouth daily. [facility] valsartan (DIOVAN) 160 MG tablet 2021-09 17:27: 45 Yes 160mg QD Take 1 tablet (160 mg total) by mouth daily. [facility] hyoscyamine (ANASPAZ,LE VSIN) 0.125 mg tablet 2021-09 17:27: 45 Yes .125mg Take 0.125 mg by mouth every 4 (four) hours as needed. [facility] ALPRAZolam (XANAX) 0.5 MG tablet 2021-09 17:27: 45 Yes .25mg Take 0.5 tablets (0.25 mg total) by mouth every night as needed for anxiety. [facility] amLODIPine (NORVASC) 10 MG tablet 2021-09 17:27: 45 08-26 00:00 :00 No 10mg QD Take 1 tablet (10 mg total) by mouth daily. [facility] sucralfate (CARAFATE) 1 gram tablet 2021-09 17:27: 45 08-26 00:00 :00 No 1g Q.25D Take 1 tablet (1 g total) by mouth 4 (four) times daily. [facility] mometasone (NASONEX) 50 mcg/actuati on nasal spray 2021-09 17:27: 45 08-26 00:00 :00 No 2{spray } 2 sprays by intraNASAL route as needed for rhinitis. [facility] methocarbam oL (ROBAXIN) 750 MG tablet 2021-09 17:27: 45 08-26 00:00 :00 No 750mg Q.25D Take 1 tablet (750 mg total) by mouth 4 (four) times daily. [facility] diphenhydrA MINE (BENADRYL) 25 mg tablet 2021-09 17:27: 45 08-26 00:00 :00 No 25mg Take 1 tablet (25 mg total) by mouth every night as needed for sleep. [facility] levETIRAcet am (Keppra) 750 MG tablet 2021-09 17:27: 45 08-26 00:00 :00 No 750mg Q.5D Take 1 tablet (750 mg total) by mouth 2 (two) times daily . [facility] fluticasone propion-becky meteroL (ADVAIR) 500-50 mcg/dose diskus inhaler 2021-09 17:27: 45 08-26 00:00 :00 No 1{puff} Inhale 1 puff by mouth via inhaler as needed. [facility] oxyCODONE (ROXICODONE ) 15 MG immediate release tablet 2021-09:: 08-26 00:00 :00 No 15mg Take 1 tablet (15 mg total) by mouth every 4 (four) hours as needed for pain . [facility] meclizine (ANTIVERT) 25 MG tablet 2021-09 17:: 45 08-26 00:00 :00 No 25mg Take 1 tablet (25 mg total) by mouth 3 (three) times daily as needed. [facility] traZODone (DESYREL) 150 MG tablet 2021-09 13:42: 59 08-05 00:00 :00 No 150mg QD Take 150 mg by mouth nightly. [facility] levETIRAcet am 750 mg oral tablet 2021-09 0- 14:17: 00 Yes = 1 tab, PO, BID, # 60 tab, 3 Refill(s), Pharmacy: [facility] #[id number], 167.64, cm, 07/03/22 14:43:00 CDT, Height, 51.5, kg, 07/03/22 14:43:00 CDT, Weight Memoria l Raymond omeprazole 20 mg oral delayed release capsule 2021-09 22:48: 00 Yes 20 mg = 1 cap, PO, Daily, # 14 cap, 1 Refill(s), Pharmacy: [facility] #[id number], 167.64, cm, 07/03/22 14:43:00 CDT, Height, 51.5, kg, 07/03/22 14:43:00 CDT, Weight Memoria nicholas Andrade Carafate 1 g oral tablet 2021-09 22:48: 00 Yes 1 gm = 1 tab, PO, QID-Before Meals, # 28 tab, 0 Refill(s), Pharmacy: [facility] #[id number], 167.64, cm, 07/03/22 14:43:00 CDT, Height, 51.5, kg, 07/03/22 14:43:00 CDT, Weight Memoria nicholas Andrade Reyvow 50 mg oral tablet 04-11 18:54: 00 Yes 50 mg = 1 tab, PO, PRN, PRN migraine, # 8 tab, 2 Refill(s), Pharmacy: [facility] [employer] [facility] #[id number], 160.02, cm, 04/11/22 13:42:00 CDT, Height, 68.864, kg, 04/11/22 13:42:00 CDT, Weight Memoria nicholas Andrade lasmiditan 50 MG Oral Tablet [Reyvow] 11-27 21:19: 00 Yes 50 mg = 1 tab, PO, PRN, PRN migraine, # 8 tab, 2 Refill(s), Pharmacy: [facility] [employer] [facility] #[id number], 162.56, cm, 11/27/21 15:49:00 CDT, Height, 50.455, kg, 11/27/21 15:49:00 CDT, Weight Memoria nicholas Andrade Levetiracet am 750 MG Oral Tablet 11-27 21:19: 00 Yes = 1 tab, PO, BID, # 60 tab, 6 Refill(s), [id number], 162.56, cm, 11/27/21 15:49:00 CDT, Height, 50.455, kg, 11/27/21 15:49:00 CDT, Weight Memoria l Raymond levETIRAcet am 750 mg oral tablet 11-27 21:19: 00 Yes = 1 tab, PO, BID, # 60 tab, 6 Refill(s), Pharmacy: [facility][id number], 162.56, cm, 11/27/21 15:49:00 CDT, Height, 50.455, kg, 11/27/21 15:49:00 CDT, Weight Marlon Andrade carvedilol (COREG) 3.125 mg tablet 04-18 02:23: 47 Yes 6.25mg Take 6.25 mg by mouth 2 (two) times daily. [facility] Fluticasone -Salmeterol (ADVAIR DISKUS) 500-50 mcg/dose inhalation disk 04-18 02:23: 47 Yes 1{puff} Inhale 1 Puff every 12 (twelve) hours. [facility] HYDROcodone -acetaminop hen (NORCO) 10-325 mg tablet 04-18 02:23: 47 Yes 1{tbl} Take 1 Tab by mouth every 6 (six) hours as needed. [facility] methocarbam ol (ROBAXIN) 500 mg tablet 04-18 02:23: 47 Yes 1000mg Take 1,000 mg by mouth every evening. [facility] BUTALBITAL/ ASPIRIN/CAF FEINE (BUTALBITAL COMPOUND/ A ORAL) 04-18 02:23: 47 Yes 2{tbl} Take 2 Tabs by mouth as needed. [facility] pregabalin (LYRICA) 50 mg capsule 04-18 02:23: 47 Yes 50mg Take 50 mg by mouth every evening. [facility] esomeprazol e (NEXIUM) 40 mg capsule 04-18 02:23: 47 Yes 40mg Take 40 mg by mouth 2 (two) times daily. [facility] ALPRAZolam (XANAX) 0.25 mg tablet 04-18 02:23: 47 Yes .25mg Take 0.25 mg by mouth at bedtime. [facility] MECLIZINE HCL (MECLIZINE ORAL) 04-18 02:23: 47 Yes Take by mouth as needed. [facility] traZODone (DESYREL) 150 mg tablet 04-18 02:23: 47 Yes 150mg Take 150 mg by mouth at bedtime. [facility] hyoscyamine (LEVSIN) 0.125 mg tablet 04-18 02:23: 47 Yes .125mg Take 0.125 mg by mouth as needed. [facility] levothyroxi ne (SYNTHROID) 125 mcg tablet 04-18 02:23: 47 Yes 125ug Take 125 mcg by mouth daily. [facility] sucralfate (CARAFATE) 1 gram tablet 04-18 02:23: 47 Yes 1g Take 1 g by mouth as needed. [facility] DULoxetine (CYMBALTA) 30 mg capsule 04-18 02:23: 47 Yes 90mg Take 90 mg by mouth daily. Indication s: Take 60 mg every AM and 30 mg every PM [facility] mometasone (NASONEX) 50 mcg/actuati on nasal spray 04-18 02:23: 47 Yes 1{spray } Use 1 [place] in each nostril as needed. [facility] levETIRAcet am (KEPPRA) 750 mg tablet 04-18 02:23: 47 Yes 750mg Take 750 mg by mouth 2 (two) times daily. [facility] MECLIZINE HCL (MECLIZINE ORAL) 04-17 21:23: 47 Yes 2{tbl} Take by mouth as needed. [facility] mometasone (NASONEX) 50 mcg/actuati on nasal spray 04-17 21:23: 47 Yes 1{spray } Use 1 [place] in each nostril as needed. [facility] montelukast (SINGULAIR) 10 mg tablet 04-17 16:21: 48 04-17 00:00 :00 No 10mg Take 10 mg by mouth daily. [facility] QUEtiapine (SEROQUEL) 25 mg tablet 04-17 16:21: 48 04-17 00:00 :00 No 25mg Take 25 mg by mouth daily. [facility] Dexlansopra zole (DEXILANT) 30 mg CpDM 04-17 16:: 48 04-17 00:00 :00 No 1{tbl} Take 1 Tab by mouth daily. [facility] RANITIDINE HCL (ZANTAC 75 ORAL) 04-17 16:21: 48 04-17 00:00 :00 No 1{tbl} Take 1 Tab by mouth daily. [facility] Dexlansopra zole (DEXILANT) 60 mg CpDM 04-17 16:21: 48 04-17 00:00 :00 No 60mg Take 60 mg by mouth daily. [facility] ranitidine (ZANTAC) 150 mg tablet 04-17 16:21: 48 04-17 00:00 :00 No 150mg Take 150 mg by mouth daily. [facility] etodolac (LODINE) 500 mg tablet 04-17 16:: 48 04-17 00:00 :00 No 500mg Take 500 mg by mouth 2 (two) times daily. [facility] losartan (COZAAR) 50 mg tablet 04-17 16:: 48 04-17 00:00 :00 No 50mg Take 50 mg by mouth daily. [facility] pregabalin (LYRICA) capsule 50 mg 04-16 22:00: 00 Yes 50mg 50 mg, Oral, QPM, First dose on Thu04/16/21 at 1700, Until Discontinu ed, Routine [facility] proMETHazin e (PHENERGAN) 12.5 mg in NaCl 0.9% (NS) 50 mL IV piggyback 04-16 20:15: 00 04-16 21:05 :00 No 12.5mg 12.5 mg, IV Piggyback, ONCE NOW, 1 dose, Thu04/16/21 at 1515, Routine [facility] famotidine (PEPCID AC) tablet 20 mg 04-16 19:15: 00 Yes 20mg 20 mg, Oral, BID, First dose (after last modificati on) on Thu04/16/21 at 1415, Until Discontinu ed [facility] enoxaparin (LOVENOX) injection 40 mg 04-16 15:30: 00 Yes 40mg 40 mg, Subcutaneo us, Q24H, First dose on Thu04/16/21 at 1030, Until Discontinu ed, Routine [facility] losartan (COZAAR) tablet 50 mg 04-16 14:00: 00 Yes 50mg 50 mg, Oral, DAILY, First dose on Thu04/16/21 at 0900, Until Discontinu ed, Routine [facility] polyethylen e glycol 3350 powder 17 g 04-16 14:00: 00 Yes 17g 17 g, Oral, DAILY, First dose on Thu04/16/21 at 0900, Until Discontinu ed, Routine [facility] levETIRAcet am (KEPPRA) tablet 750 mg 04-16 13:00: 00 Yes 750mg 750 mg, Oral, BID, First dose on Thu04/16/21 at 0800, Until Discontinu ed, Routine [facility] levothyroxi ne (SYNTHROID) tablet 125 mcg 04-16 11:00: 00 Yes 125ug 125 mcg, Oral, QAM-0600, First dose on Thu04/16/21 at 0600, Until Discontinu ed, Routine [facility] albuterol (VENTOLIN) inhaler 2 Puff 04-16 03:47: 29 Yes 2{puff} 2 Puff, Inhalation , Q6HPRN, Starting Thu04/15/21 at 2247, Until Discontinu ed, Routine, Wheezing, Shortness of Breath, Bronchospa sm, Chest tightness [facility] ondansetron (ZOFRAN (PF)) injection 4 mg 04-16 03:46: 51 Yes 4mg 4 mg, Slow IV Push, Q6HPRN, Starting Thu04/15/21 at 2246, Until Discontinu ed, Routine, Nausea and Vomiting (N/V) [facility] HYDROcodone -acetaminop hen (NORCO 5) 5-325 mg tablet 1 tablet 04-16 03:46: 45 04-18 03:45 :45 No 1{tbl} 1 tablet, Oral, Q6HPRN, Starting Thu04/15/21 at 2246, Until Thu04/17/21 at 2245, Routine, Pain (scale 4-6) [facility] iopamidol (ISOVUE 370-500 mL) injection 100 mL 04-16 00:00: 00 04-16 00:00 :00 No [id number] 100mL 100 mL, Intravenou s, ONCE, 1 dose, Thu04/15/21 at 1900, Routine [facility] methocarbam ol 750 mg oral tablet 03-29 18:51: 00 Yes 0 Refill(s) Marlon Andrade methocarbam ol (Robaxin) 750 MG tablet methocarbam ol (Robaxin) 750 MG tablet 03-29 00:00: 00 Yes 0 Refill(s) Marlon Andrade [facility] Levetiracet am 750 MG Oral Tablet 11-12 22:57: 00 No See Instructio ns, TAKE 1 TABLET BY MOUTH TWICE DAILY, # 60 tab, 1 Refill(s), [id number], 162.56, cm, 10/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, Height, 50, kg, 10/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, Weight Memnicole nicholas Andrade lasmiditan 50 MG Oral Tablet [Reyvow] 2019-09 20:30: 00 Yes 50 mg = 1 tab, PO, PRN, PRN migraine, # 8 tab, 2 Refill(s), Pharmacy: [facility] #[id number], 162.56, cm, 10/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, Height, 50, kg, 10/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, Weight Marlon Andrade Levetiracet am 750 MG Oral Tablet 2019-09 20:30: 00 Yes 750 mg = 1 tab, PO, BID, # 180 tab, 1 Refill(s), Pharmacy: [facility]ORE #[id number], 162.56, cm, 10/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, Height, 50, kg, 10/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, Weight Memnicole Andrade Reyvow 50 mg oral tablet 04-05 19:10: 00 Yes 50 mg = 1 tab, PO, PRN, PRN migraine, # 8 tab, 2 Refill(s), Pharmacy: [facility] [employer]ORE #[id number], 162.56, cm, 10/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, Height, 50, kg, 10/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, Weight Marlon Andrade Levetiracet am 750 MG Oral Tablet 12-11 15:45: 43 Yes See Instructio ns, # 480 tab, TAKE 1 TABLET BY MOUTH TWICE DAILY, Pharmacy: [facility] [employer] STORE #[id number] Renettanicole nicholas Andrade pregabalin 100 MG Oral Capsule [Lyrica] 10-06 20:57: 00 Yes 100 mg = 1 cap, PO, Daily, 0 Refill(s) Memoria nicholas Andrade Lyrica 100 mg oral capsule 10-06 20:57: 00 Yes 100 mg = 1 cap, PO, Daily, 0 Refill(s) Memnicole nicholas Andrade pregabalin (Lyrica) 100 MG capsule pregabalin (Lyrica) 100 MG capsule 10-06 00:00: 00 Yes 100mg 100 mg = 1 cap, PO, Daily, 0 Refill(s) Memnicole nicholas Andrade Epic acetaminoph en-oxyCODON E 325 mg-7.5 mg oral tablet, extended release 03-25 19:31: 00 Yes 1 tab, PO, PRN, 0 Refill(s) Memnicole Andrade duloxetine 60 MG Enteric Coated Capsule [Cymbalta] 01-21 19:00: 00 Yes 60 mg = 1 cap, PO, BID, 0 Refill(s) Memnicole Andrade Amlodipine 5 MG Oral Tablet [Norvasc] 01-21 19:00: 00 Yes 5 mg = 1 tab, PO, Daily, # 30 tab, 0 Refill(s) [place] Norvasc 5 mg oral tablet 01-21 19:00: 00 Yes 5 mg = 1 tab, PO, Daily, # 30 tab, 0 Refill(s) [place] carvedilol 12.5 mg oral tablet 01-21 19:00: 00 Yes 12.5 mg = 1 tab, PO, BID, # 180 tab, 0 Refill(s) Renettanicole nicholas Andrade Cymbalta 60 mg oral delayed release capsule 01-21 19:00: 00 Yes 60 mg = 1 cap, PO, BID, 0 Refill(s) Renettanicole nicholas Andrade amLODIPine (Norvasc) 5 MG tablet amLODIPine (Norvasc) 5 MG tablet 01-21 00:00: 00 Yes 5mg 5 mg = 1 tab, PO, Daily, # 30 tab, 0 Refill(s) Renettanicole nicholas Andrade Epic carvedilol (Coreg) 12.5 MG tablet carvedilol (Coreg) 12.5 MG tablet 01-21 00:00: 00 Yes 12.5mg 12.5 mg = 1 tab, PO, BID, # 180 tab, 0 Refill(s) Renettanicole nicholas Andrade [facility] DULoxetine (Cymbalta) [address] capsule DULoxetine (Cymbalta) [address] capsule 01-21 00:00: 00 Yes 60mg 60 mg = 1 cap, PO, BID, 0 Refill(s) Marlon Andrade Epic Levetiracet am 750 MG Oral Tablet [Keppra] - 19:00: 00 No 750 mg = 1 tab, PO, BID, X 90 day, # 180 tab, 1 Refill(s), Pharmacy: [facility] Marlon Andrade calcium-vit spears D 500 mg-400 intl units oral tablet, chewable 02-06 16:07: 00 Yes 1 tab, CHEW, BID, # 60 tab, 0 Refill(s), Pharmacy: [facility] 149 Marlon Andrade ergocalcife rol 50,000 intl units oral capsule 02-06 16:07: 00 Yes 50,000 IntlUnit = 1 cap, PO, Q7D, # 5 cap, 0 Refill(s), Pharmacy: [place] [id number] Marlon Andrade Oxycodone Hydrochlori de 5 MG Oral Tablet 02-06 00:32: 00 No Notes: (Same as: Roxicodone ) Marlon Andrade Calcium Carbonate 1250 MG / Cholecalcif lucia 400 UNT Chewable Tablet 02-05 14:00: 00 No Notes: (calcium carbonate- vit D 500mg-400u nit TAB) Same as: Oyster-D, OsCal-D Renettanicole Andrade Ergocalcife rol 40304 UNT Oral Capsule 02-05 12:00: 00 No Notes: (Same as: Vitamin D) "Do Not Crush" Marlon Wallann Thyroxine 02-05 11:30: 00 No Notes: Take 1 hour before or 2 hours after meal; Enteral feeds may interefere with the absorption of this medication . (Same as:Levothr oid) Renettanicole Wallann Oxycodone Hydrochlori de 5 MG Oral Tablet 02-05 10:37: 00 No Notes: (Same as: Roxicodone ) Marlon Andrade sugammadex 02-05 02:43: 00 No Notes: (Same as: [place]) Marlon Wallann Amitriptyli ne 02-05 02:00: 00 No Notes: (Same as: Elavil) Marlon nicholas Andrade Singulair 02-05 02:00: 00 No Notes: (Same as:Singula ir) Marlon Wallann Oxycodone 02-05 00:10: 00 No 5 mg, Route: PO, Drug form: TAB, Q4H, Dosing Weight 51.818, kg, PRN Pain Score 4-6, Start date: 02/04/18 19:10:00 CDT, Duration: 30 day, Stop date: 03/06/18 19:09:00 CDT Marlon Wallann Hydralazine 02-05 00:10: 00 No 10 mg, Route: IVP, Q20Min, Dosing Weight 51.818, kg, PRN Elevated BP, Start date: 02/04/18 19:10:00 CDT, Duration: 2 doses or times, Stop date: Limited # of times Memoria nicholas Andrade Labetalol 02-05 00:10: 00 No 10 mg, Route: IVP, Q5Min, Dosing Weight 51.818, kg, PRN Elevated BP, Start date: 02/04/18 19:10:00 CDT, Duration: 5 doses or times, Stop date: Limited # of times Memoria nicholas Andrade Flumazenil 02-05 00:10: 00 No 0.2 mg, Route: IVP, PRN, Dosing Weight 51.818, kg, PRN Benzodiaze pine Reversal, Initial dose, Start date: 02/04/18 19:10:00 CDT, Duration: 30 day, Stop date: 03/06/18 19:09:00 CDT Marlon Andrade Naloxone 02-05 00:10: 00 No 0.4 mg, Route: IVP, Q2MIN, Dosing Weight 51.818, kg, PRN Narcotic Reversal, Start date: 02/04/18 19:10:00 CDT, Duration: 8 doses or times, Stop date: Limited # of times Marlon Andrade ondansetron (ANES) 02-04 23:58: 00 No Route: IV, Drug form: INJ, ONCE, Stop date: 02/04/18 18:58:00 CDT Memnicole Andrade albuterol (ANES) 02-04 23:16: 00 No Route: INHALATION , Drug form: AERO/A, ONCE, Stop date: 02/04/18 18:16:00 CDT Memnicole Andrade hydromorpho ne (ANES) 02-04 22:51: 00 No Route: IV, Drug form: INJ, ONCE, Stop date: 02/04/18 17:51:00 CDT Memoria nicholas Andrade dexamethaso ne (ANES) 02-04 22:51: 00 No Route: IV, Drug form: INJ, ONCE, Stop date: 02/04/18 17:51:00 CDT Memoria nicholas Andrade rocuronium (ANES) 02-04 22:20: 00 No Route: IV, Drug form: INJ, ONCE, Stop date: 02/04/18 17:20:00 CDT Marlon peterson Raymond propofol (ANES) 02-04 22:10: 00 No Route: IV, Drug form: INJ, ONCE, Stop date: 02/04/18 17:10:00 CDT Marlon Andrade lidocaine (ANES) 02-04 22:10: 00 No Route: IV, Drug form: INJ, ONCE, Stop date: 02/04/18 17:10:00 CDT Renettanicole nicholas [place] ondansetron (ANES) 02-04 22:10: 00 No Route: IV, Drug form: INJ, ONCE, Stop date: 02/04/18 17:10:00 CDT Marlon Andrade ceFAZolin (ANES) 02-04 22:05: 00 No Route: IV, Drug form: INJ, ONCE, Stop date: 02/04/18 17:05:00 CDT Marlon Andrade phenylephri ne (ANES) 02-04 22:05: 00 No Route: IV, Drug form: INJ, ONCE, Stop date: 02/04/18 17:05:00 CDT Marlon Andrade ePHEDrine (ANES) 02-04 22:05: 00 No Route: IV, Drug form: INJ, ONCE, Stop date: 02/04/18 17:05:00 CDT Marlon Andrade Lactated Ringers Injection IV (ANES) 1000 mL 02-04 20:35: 00 No Route: IV, Total Volume: 1,000, Start date: 02/04/18 15:35:00 CDT, Stop date: 02/04/18 16:35:00 CDT Marlon Andrade Lovenox 02-04 19:00: 00 No Notes: (Same as: Lovenox) Marlon Andrade Ancef 02-04 16:00: 00 No Notes: (Same as Ancef) Marlon Andrade Levetiracet am 750 MG Oral Tablet [Keppra] 02-04 14:00: 00 No Notes: Same as Keppra Marlon Andrade Advair Diskus 500 mcg-50 mcg inhalation powder 02-04 14:00: 00 No 1 puff, Route: INHALATION , Drug Form: AERO, Dosing Weight 47.001, kg, BID, Start date: 02/04/18 9:00:00 CDT, Duration: 30 day, Stop date: 03/05/18 17:00:00 CDT Renettanicole nicholas Andrade Cymbalta 02-04 14:00: 00 No 30 mg, Route: PO, Drug form: DRC, BID, Dosing Weight 47.001, kg, Start date: 02/04/18 9:00:00 CDT, Duration: 30 day, Stop date: 03/05/18 17:00:00 CDT Marlon Andrade budesonide- formoterol 02-04 13:00: 00 No Notes: [id number] [facility],[id number] Inhale 2 puff(s) by mouth 2 times a day Carlos Chiu r_ Don't use after_ Marlon Andrade Tramadol 02-04 11:00: 00 No Notes: Not to exceed 400mg/day. (Same As: Ultram) Marlon Andrade Ondansetron 02-04 10:54: 00 No Notes: (Same as: Ed) MEDICATION WASTE Product Size: 4 mg Product Wasted: ___ mg Marlon Andrade Acetaminoph en 02-04 10:54: 00 No Notes: Do not exceed 4 gm/day. (Same as: Tylenol) Marlon Andrade Acetaminoph en 325 MG / Hydrocodone Bitartrate 5 MG Oral Tablet 02-04 10:54: 00 No Notes: (Same as: [place] 325/5) Do not exceed 4gm/day of acetaminop hen. Marlon Andrade Dilaudid 02-04 10:26: 00 No 1 mg, Route: IVP, ONCE, Dosing Weight 47.001, kg, Priority: STAT, Start date: 02/04/18 5:26:00 CDT, Stop date: 02/04/18 5:26:00 CDT Marlon Andrade Fentanyl 02-04 10:21: 00 No 50 microgram, Route: IVP, ONCE, Dosing Weight 47.001, kg, Priority: STAT, Start date: 02/04/18 5:21:00 CDT, Stop date: 02/04/18 5:21:00 CDT Marlon Andrade Fentanyl 02-04 09:57: 00 No 50 microgram, Route: IVP, ONCE, Dosing Weight 47.001, kg, Priority: STAT, Start date: 02/04/18 4:57:00 CDT, Stop date: 02/04/18 4:57:00 CDT Marlon Andrade Ancef 02-04 08:51: 00 No Notes: (Same As: Brian Epstein) MEDICATION WASTE Product Size: 1000 mg Product Wasted: ___ mg Marlon nicholas Andrade Fentanyl 02-04 08:49: 00 No Notes: (Same as: Sublimaze) Preservati ve free. Marlon Andrade NexIUM 5 mg oral powder for reconstitut ion, delayed release 11-24 15:22: 00 Yes 5 mg = 1 ea, PO, Daily, 0 Refill(s) Marlon Andrade Advair HFA 45 mcg-21 mcg/inh inhalation aerosol with adapter 11-24 15:22: 00 Yes 2 puff, INHALATION , BID, 0 Refill(s) Marlon Andrade esomeprazol e (NexIUM) 5 MG packet esomeprazol e (NexIUM) 5 MG packet 11-24 00:00: 00 Yes 5mg 5 mg = 1 ea, PO, Daily, 0 Refill(s) Marlon Andrade Epic ferrous sulfate 325 mg oral enteric coated tablet 10-28 15:01: 00 Yes 325 mg = 1 tab, PO, Daily, # 30 tab, 0 Refill(s) Marlon Andrade Amino Acids 4.25% with 5% Dextrose and Electrolyte s (Clinimix E Sulfite-Jose Roberto e) 2,000 mL + multivitam 10-27 04:00: 00 No Notes: Same as: ClinimixE Marlon Andrade Protonix 10-26 23:00: 00 No Notes: For IV push reconstitu te with 10 ml 0.9% sodium chloride and push over 2 minutes. (Same as: Protonix) Marlon Andrade Amino Acids 4.25% with 5% Dextrose and Electrolyte s (Clinimix E Sulfite-Jose Roberto e) 1,000 mL + multivitam 10-26 18:00: 00 No Notes: Same as: ClinimixE Marlon Andrade Sodium Chloride 0.9% (titrate) 250 mL 10-25 22:16: 00 No 250 mL, Rate: mail caller for use with blood product administra tion, Dosing Weight 47.001, kg, Route: IV, Total Volume: 250, Start Date: 10/25/15 16:16:00, Duration: 30 day, Stop date: 11/24/15 16:15:00, Replace Every: 24 hr Marlon Andrade Reglan 10-25 18:00: 00 No Notes: (Same as: Reglan) Marlon Andrade Calcium Carbonate 500 MG Chewable Tablet 10-25 08:39: 00 No Notes: (Same As: Tums) Calcium Carbonate 500 mg = 200 mg elemental calcium Dose = mg calcium carbonate ( mg elemental calcium) Marlon Andrade Magnesium Sulfate 10-25 08:39: 00 No Notes: WASTE: F/P - Sink; E - Municipal Trash Bin Marlon Andrade Neutra-Phos 10-25 08:39: 00 No Notes: (Same as: Neutra-Mary s) Each 1.25 gm pkt has 250mg phosphorou s. Mix w/2.5oz water and stir. Marlon Andrade Calcium Gluconate 10-25 08:39: 00 No Notes: WASTE: F/P - Sink; E - Municipal Trash Bin Marlon Andrade Magnesium Oxide 10-25 08:39: 00 No Notes: (Same as: Mag-Ox 400) Magnesium oxide [id number] g elemental magnesium Dose=____m g magnesium oxide (___mg elemental magnesium) Marlon Andrade potassium phosphate + Sodium Chloride 0.9% IV 250 mL 10-25 08:39: 00 No Notes: (Same as: K Phosphate. ) 1 mMol phoshate has 1.47 mEq potassium Infuse over 4 hours Marlon Andrade sodium phosphate + Sodium Chloride 0.9% IV 250 mL 10-25 08:39: 00 No 45 mmol, 15 mL, Route: IVPB, PRN, Dosing Weight 47.001, kg, PRN Abnormal Lab Result, Start date: 10/25/15 2:39:00, Duration: 30 day, Stop date: 11/24/15 2:38:00, FOR ICU USE ONLY Marlon Andrade potassium chloride 10-25 08:39: 00 No Notes: (Same as: K-Dur 20) "Do Not Crush" With food and full glass of water Marlon Andrade Amitriptyli ne 10-25 03:00: 00 No Notes: (Same as: Elavil) Marlon Andrade morphine Sulfate 10-24 21:27: 00 No Notes: (Same as:MORPhin e Sulfate) Marlon Andrade Phenergan 10-24 21:26: 00 No Notes: Do not give IV push. (Same as: Phenergan) Marlon Andrade carvedilol 10-24 15:00: 00 No Notes: Give with food. (Same As: Coreg) Marlon Andrade 24 HR Etodolac 500 MG Extended Release Tablet 10-24 15:00: 00 No 500 mg, 1 tab, Route: PO, Drug form: ERTAB, BID, Dosing Weight 47.001, kg, Start date: 10/24/15 9:00:00, Duration: 30 day, Stop date: 11/22/15 17:00:00 Marlon Andrade Methocarbam ol 10-24 13:56: 00 No Notes: (Same as:Robaxin ) Marlon Andrade Hyoscyamine 10-24 13:56: 00 No Notes: (Same as: Levsin) Take 30 min before meal Marlon Andrade Clonidine Hydrochlori de 0.2 MG Oral Tablet 10-24 06:00: 00 No Notes: (Same As: Catapres) Marlon Andrade Cardene 40 mg in NS 200 mL (Titrate.) IV 40 mg 10-24 04:42: 00 No Notes: Same as: Cardene Concentrat ion: (0.2 mg /1 ml ) Marlon Andrade Labetalol 10-24 04:42: 00 No Notes: (Same as: Normodyne, Trandate) Push over 2 minutes Give bolus over 2-3 minutes. Marlon Andrade Ondansetron 10-23 23:49: 00 No Notes: (Same as: Ed) MEDICATION WASTE Product Size: 4 mg Product Wasted: ___ mg Marlon Andrade midazolam 10-23 23:30: 00 No Notes: (Same as: Versed) MEDICATION WASTE Product Size: 2 mg Product Wasted: ___ mg Marlon Andrade Thyroxine 10-23 12:30: 00 No Notes: Take 1 hour before or 2 hours after meal; Enteral feeds may interefere with the absorption of this medication . (Same as:Levothr oid) Renettanicole nicholas [place] Sublimaze 10-23 03:47: 00 No Notes: (Same as: Sublimaze) Preservati ve free. Renettanicole nicholas Raymond sennosides, HALFWAY 10-23 03:00: 00 No Notes: (Same as: Senokot) Marlon nicholas Raymond Docusate 10-23 03:00: 00 No Notes: (Same as: Colace) (Do Not Crush) Renettanicole nicholas [place] Singulair 10-23 03:00: 00 No Notes: (Same as:Singula ir) Renettanicole nicholas [place] budesonide- formoterol 160 mcg-4.5 mcg/inh inhalation aerosol with adapter 10-22 23:00: 00 No Notes: (Same as: Symbicort) WASTE: Aerosol - Return to Pharmacy Renettanicole nicholas Andrade Seroquel 10-22 23:00: 00 No Notes: (Same as: SEROquel) Renettanicole nicholas Andrade Cymbalta 10-22 23:00: 00 No Notes: (Same as: Cymbalta) (Do Not Crush) Renettanicole nicholas Raymond Advair Diskus 500 mcg-50 mcg inhalation powder 10-22 23:00: 00 No 1 puff, Route: INHALATION , Drug Form: AERO, Dosing Weight 47.001, kg, BID, Start date: 10/22/15 17:00:00, Duration: 30 day, Stop date: 11/21/15 9:00:00 Marlon Andrade Nexium 10-22 19:51: 00 No 40 mg, PO, Daily, 0 Refill(s) Marlon Andrade 168 HR Clonidine 0.22255 MG/HR Transdermal Patch 10-22 19:51: 00 Yes 1 patch, TOP, qWeek, # 12 patch, 0 Refill(s) Marlon Andrade meclizine 25 mg oral tablet 10-22 19:51: 00 Yes 25 mg = 1 tab, PO, TID, PRN for dizziness, # 60 tab, 0 Refill(s) Marlon Andrade Acetaminoph en 325 MG / Hydrocodone Bitartrate 5 MG Oral Tablet [[place] 5/325] 10-22 19:51: 00 Yes 2 tab, PO, Q6H, PRN for pain, 0 Refill(s) Marlon Andrade Alprazolam 0.25 MG Oral Tablet 10-22 19:51: 00 Yes 0.25 mg = 1 tab, PO, TID, PRN Anxiety, # 30 tab, 0 Refill(s) Marlon Andrade Levetiracet am 750 MG Oral Tablet [Keppra] 10-22 19:51: 00 Yes 750 mg = 1 tab, PO, BID, # 60 tab, 2 Refill(s) Marlon Andrade ibandronic acid 150 MG Oral Tablet [Boniva] 10-22 19:51: 00 No 150 mg = 1 tab, PO, qMonth, Swallow whole w/6-8oz water 1HR before first food, drink, med-Do not lie down for 1HR & until after first food, # 1 tab, 0 Refill(s) Memnicole Andrade carvedilol 3.125 mg oral tablet 10-22 19:51: 00 Yes 3.125 mg = 1 tab, PO, BID, # 180 tab, 1 Refill(s) Marlon Andrade dexlansopra zole 60 MG Enteric Coated Capsule [Dexilant] 10-22 19:51: 00 No 60 mg = 1 cap, PO, Daily, # 30 day, 1 Refill(s) Marlon Andrade duloxetine 30 MG Enteric Coated Capsule [Cymbalta] 10-22 19:51: 00 Yes 30 mg = 1 cap, PO, BID, # 60 cap, 0 Refill(s) Marlon Andrade methocarbam ol 500 mg oral tablet 10-22 19:51: 00 Yes 500 mg = 1 tab, PO, Q8H, PRN Spasms, # 60 tab, 0 Refill(s) Marlon Andrade montelukast 10 MG Oral Tablet [Singulair] 10-22 19:51: 00 Yes 10 mg = 1 tab, PO, Bedtime, # 30 tab, 0 Refill(s) Renettanicole Andrade quetiapine 25 MG Oral Tablet [Seroquel] 10-22 19:51: 00 Yes 25 mg = 1 tab, PO, BID, 0 Refill(s) Renettanicole Andrade linaclotide 0.145 MG Oral Capsule [Linzess] 10-22 19:51: 00 Yes 145 microgram = 1 cap, PO, Daily, 30 minutes prior to the first meal of the day, # 30 cap, 0 Refill(s) Marlon Andrade etodolac 500 mg oral tablet 10-22 19:51: 00 No 500 mg = 1 tab, PO, BID, # 60 tab, 1 Refill(s) Renettanicole Andrade levocetiriz ine 5 mg oral tablet 10-22 19:51: 00 Yes 5 mg = 1 tab, PO, Bedtime, PRN as needed for allergy symptoms, # 30 tab, 0 Refill(s) Marlon Andrade hyoscyamine 0.125 mg sublingual tablet 10-22 19:51: 00 Yes 0.125 mg = 1 tab, SL, Q6H, PRN Spasms, # 30 tab, 0 Refill(s) Renettanicole Andrade Advair Diskus 500 mcg-50 mcg inhalation powder 10-22 19:49: 00 Yes 1 puff, INHALATION , BID, # 1 ea, 3 Refill(s) Marlon Andrade Amlodipine 10-22 19:49: 00 Yes 5 mg, PO, BID, 0 Refill(s) Marlon Andrade amitriptyli ne 25 mg oral tablet 10-22 19:49: 00 Yes 25 mg = 1 tab, PO, Bedtime, # 30 tab, 1 Refill(s) Marlon Andrade levothyroxi ne 25 mcg (0.025 mg) oral tablet 10-22 19:49: 00 Yes 25 microgram = 1 tab, PO, Daily, # 30 tab, 1 Refill(s) Marlon Andrade Sodium Chloride 0.154 MEQ/ML Injectable Solution 10-22 18:59: 00 No 100 mL, Rate: 10 ml/hr, Infuse over: 10 hr, Route: IVPB, Dosing Weight 47.001 kg, Total Volume: 100, Infuse at 8 mg / hr for 72 hours for GI bleeding, Start date: 10/22/15 12:59:00, Duration: 72 hr, Stop date: 10/25/15 12:58:00 Marlon Andrade Saline Flush 0.9% 10-22 18:55: 00 No Notes: (Same as: BD Posiflush) Marlon Andrade levothyroxi ne (Synthroid, Levoxyl) 25 MCG tablet levothyroxi ne (Synthroid, Levoxyl) 25 MCG tablet 10-22 00:00: 00 Yes 25ug 25 microgram = 1 tab, PO, Daily, # 30 tab, 1 Refill(s) Marlon Andrade Epic hyoscyamine (Levsin) 0.125 MG SL tablet hyoscyamine (Levsin) 0.125 MG SL tablet 10-22 00:00: 00 Yes .125mg 0.125 mg = 1 tab, SL, Q6H, PRN Spasms, # 30 tab, 0 Refill(s) Marlon Andrade Epic levETIRAcet am (KEPPRA) 750 mg tablet 04-11 21:44: 53 Yes 750mg Take 750 mg by mouth 2 (two) times daily. [facility] etodolac (LODINE) 500 mg tablet 04-11 21:44: 53 Yes 500mg Take 500 mg by mouth 2 (two) times daily. [facility] losartan (COZAAR) 50 mg tablet 04-11 21:44: 53 Yes 50mg Take 50 mg by mouth daily. [facility] carvedilol (COREG) 3.125 mg tablet 04-11 21:44: 53 Yes 6.25mg Take 6.25 mg by mouth 2 (two) times daily. [facility] Fluticasone -Salmeterol (ADVAIR DISKUS) 500-50 mcg/dose inhalation disk 04-11 21:44: 53 Yes 1{puff} Inhale 1 Puff every 12 (twelve) hours. [facility] HYDROcodone -acetaminop hen (NORCO) 10-325 mg tablet 04-11 21:44: 53 Yes 1{tbl} Take 1 Tab by mouth every 6 (six) hours as needed. [facility] montelukast (SINGULAIR) 10 mg tablet 04-11 21:44: 53 Yes 10mg Take 10 mg by mouth daily. [facility] methocarbam ol (ROBAXIN) 500 mg tablet 04-11 21:44: 53 Yes 1000mg Take 1,000 mg by mouth every evening. [facility] BUTALBITAL/ ASPIRIN/CAF FEINE (BUTALBITAL COMPOUND/ A ORAL) 04-11 21:44: 53 Yes 2{tbl} Take 2 Tabs by mouth as needed. [facility] QUEtiapine (SEROQUEL) 25 mg tablet 04-11 21:44: 53 Yes 25mg Take 25 mg by mouth daily. [facility] pregabalin (LYRICA) 50 mg capsule 04-11 21:44: 53 Yes 50mg Take 50 mg by mouth every evening. [facility] Dexlansopra zole (DEXILANT) 30 mg CpDM 04-11 21:44: 53 Yes 1{tbl} Take 1 Tab by mouth daily. [facility] esomeprazol e (NEXIUM) 40 mg capsule 04-11 21:44: 53 Yes 40mg Take 40 mg by mouth 2 (two) times daily. [facility] RANITIDINE HCL (ZANTAC 75 ORAL) 04-11 21:44: 53 Yes 1{tbl} Take 1 Tab by mouth daily. [facility] ALPRAZolam (XANAX) 0.25 mg tablet 04-11 21:44: 53 Yes .25mg Take 0.25 mg by mouth at bedtime. [facility] MECLIZINE HCL (MECLIZINE ORAL) 04-11 21:44: 53 Yes Take by mouth as needed. [facility] traZODone (DESYREL) 150 mg tablet 04-11 21:44: 53 Yes 150mg Take 150 mg by mouth at bedtime. [facility] hyoscyamine (LEVSIN) 0.125 mg tablet 04-11 21:44: 53 Yes .125mg Take 0.125 mg by mouth as needed. [facility] levothyroxi ne (SYNTHROID) 125 mcg tablet 04-11 21:44: 53 Yes 125ug Take 125 mcg by mouth daily. [facility] sucralfate (CARAFATE) 1 gram tablet 04-11 21:44: 53 Yes 1g Take 1 g by mouth as needed. [facility] DULoxetine (CYMBALTA) 30 mg capsule 04-11 21:44: 53 Yes 90mg Take 90 mg by mouth daily. Indication s: Take 60 mg every AM and 30 mg every PM [facility] mometasone (NASONEX) 50 mcg/actuati on nasal spray 04-11 21:44: 53 Yes 1{spray } Use 1 [place] in each nostril as needed. [facility] Dexlansopra zole (DEXILANT) 60 mg CpDM 04-11 21:44: 53 Yes 60mg Take 60 mg by mouth daily. [facility] ranitidine (ZANTAC) 150 mg tablet 04-11 21:44: 53 Yes 150mg Take 150 mg by mouth daily. [facility] Vital Signs Vital Name Observation Time Observation Value Comments Liliane gaston Systolic blood pressure 2025-03-24 19:36:00 99 [facility]Hg[facility] Di[facility] 2025-03-24 19:36:00 67 mm[Hg] [facility] Heart rate 2025-03-24 19:36:00 79 /min [facility] Respiratory rate 2025-03-24 19:36:00 16 /min [facility] Body height 2025-03-24 19:36:00 167.6 cm [facility] Body weight 2025-03-24 19:36:00 42.411 kg [facility] BMI 2025-03-24 19:36:00 15.09 kg/m2 [facility] Oxygen saturation in Arterial blood by Pulse oximetry 2025-03-24 19:36:00 94 /min [facility] Systolic blood pressure 2025-03-03 18:48:00 119 mm[Hg] [facility] Diastolic blood pressure 2025-03-03 18:48:00 85 mm[Hg] [facility] Heart rate 2025-03-03 18:48:00 80 /min [facility] Body temperature 2025-03-03 18:48:00 36.33 Laxmi [facility] Respiratory rate 2025-03-03 18:48:00 16 /min [facility] Body height 2025-03-03 18:48:00 167.6 cm [facility] Body weight 2025-03-03 18:48:00 44.906 kg [facility] BMI 2025-03-03 18:48:00 15.98 kg/m2 [facility] Oxygen saturation in Arterial blood by Pulse oximetry 2025-03-03 18:48:00 97 /min [facility] Systolic blood pressure 2024-09-15 15:18:00 140 mm[Hg] [facility] Diastolic blood pressure 2024-09-15 15:18:00 75 mm[Hg] [facility] Heart rate 2024-09-15 15:18:00 83 /min [facility] Body temperature 2024-09-15 15:18:00 36.22 Laxmi [facility] Respiratory rate 2024-09-15 15:18:00 16 /min [facility] Epic Oxygen saturation in Arterial blood by Pulse oximetry 2024-09-15 15:18:00 90 /min [facility] Systolic blood pressure 2024-09-15 15:18:00 140 mm[Hg] [facility] pearson Epic Diastolic blood pressure 2024-09-15 15:18:00 75 mm[Hg] [facility] Epic Heart rate 2024-09-15 15:18:00 83 /min [facility] [place] [facility] Body temperature 2024-09-15 15:18:00 36.22 Laxmi [facility] Respiratory rate 2024-09-15 15:18:00 16 /min [facility] Oxygen saturation in Arterial blood by Pulse oximetry 2024-09-15 15:18:00 90 /min [facility] Her pearson [facility] HEIGHT 2024-08-24 01:08:00 165.1 cm WEIGHT 2024-08-24 01:08:00 46.9 kg HEIGHT 2024-08-24 01:08:00 165.1 cm WEIGHT 2024-08-24 01:08:00 46.9 kg HEIGHT 2022-08-05 13:26:00 167.6 cm WEIGHT 2022-08-05 13:26:00 49.261 kg HEIGHT 2022-07-31 11:34:00 167.6 cm WEIGHT 2022-07-31 11:34:00 48.988 kg HEIGHT 2022-08-05 13:26:00 167.6 cm WEIGHT 2022-08-05 13:26:00 49.261 kg HEIGHT 2022-07-31 11:34:00 167.6 cm WEIGHT 2022-07-31 11:34:00 48.988 kg Systolic blood pressure 2021-04-17 20:14:00 144 mm[Hg[facility] Di[facility] blood pressure 2021-04-17 20:14:00 86 mm[Hg] [facility] Heart rate 2021-04-17 20:14:00 63 /min [facility] Body temperature 2021-04-17 20:14:00 36.61 Laxmi [facility] Respiratory rate 2021-04-17 20:14:00 18 /min [facility] Oxygen saturation in Arterial blood by Pulse oximetry 2021-04-17 20:14:00 93 /min [facility] Body height 2021-04-16 03:29:00 167.6 cm [facility] Body weight 2021-04-16 03:29:00 48.988 kg [facility] BMI 2021-04-16 03:29:00 17.43 kg/m2 [facility] Systolic blood pressure 2021-04-17 20:14:00 144 mm[Hg] [facility] Diastolic blood pressure 2021-04-17 20:14:00 86 mm[Hg] [facility] Heart rate 2021-04-17 20:14:00 63 /min [facility] Body temperature 2021-04-17 20:14:00 36.61 Laxmi [facility] Respiratory rate 2021-04-17 20:14:00 18 /min [facility] Oxygen saturation in Arterial blood by Pulse oximetry 2021-04-17 20:14:00 93 /min [facility] Body height 2021-04-16 03:29:00 167.6 cm [facility] Body weight 2021-04-16 03:29:00 48.988 kg [facility] BMI 2021-04-16 03:29:00 17.43 kg/m2 [facility] Systolic blood pressure 2020-03-02 00:23:00 135 mm[Hg] [facility] Diastolic blood pressure 2020-03-02 00:23:00 67 mm[Hg] [facility] Heart rate 2020-03-02 00:23:00 67 /min [facility] Respiratory rate 2020-03-02 00:23:00 20 /min [facility] Oxygen saturation in Arterial blood by Pulse oximetry 2020-03-02 00:23:00 99 /min [facility] Body temperature 2020-03-01 21:25:00 36.33 Laxmi [facility] Body height 2020-03-01 21:25:00 165.1 cm [facility] 2020-03-01 21:25:00 46.72 [facility] BMI 2020-03-01 21:25:00 17.14 kg/m2 [facility] Systolic blood pressure 2020-03-02 00:23:00 135 mm[Hg] [facility] Diastolic blood pressure 2020-03-02 00:23:00 67 mm[Hg] [facility] Heart rate 2020-03-02 00:23:00 67 /min [facility] Respiratory rate 2020-03-02 00:23:00 20 /min [facility] Oxygen saturation in Arterial blood by Pulse oximetry 2020-03-02 00:23:00 99 /min [facility] Body temperature 2020-03-01 21:25:00 36.33 Laxmi [facility] Body height 2020-03-01 21:25:00 165.1 cm [facility] Body weight 2020-03-01 21:25:00 46.72 kg [facility] BMI 2020-03-01 21:25:00 17.14 kg/m2 [facility] Systolic blood pressure 2025-03-03 18:48:00 119 mm[Hg] [facility] Diastolic blood pressure 2025-03-03 18:48:00 85 mm[Hg] [facility] Heart rate 2025-03-03 18:48:00 80 /min [facility] Body temperature 2025-03-03 18:48:00 36.33 Laxmi [facility] Respiratory rate 2025-03-03 18:48:00 16 /min [facility] Body height 2025-03-03 18:48:00 167.6 cm [facility] Body weight 2025-03-03 18:48:00 44.906 kg [facility] BMI 2025-03-03 18:48:00 15.98 kg/m2 [facility] Oxygen saturation in Arterial blood by Pulse oximetry 2025-03-03 18:48:00 97 /min [facility] Systolic blood pressure 2024-08-26 11:52:00 139 mm[Hg] [facility] Diastolic blood pressure 2024-08-26 11:52:00 68 mm[Hg] [facility] Heart rate 2024-08-26 11:52:00 80 /min [facility] Body temperature 2024-08-26 11:52:00 35.94 Laxmi [facility] Respiratory rate 2024-08-26 11:52:00 18 /min [facility] Oxygen saturation in Arterial blood by Pulse oximetry 2024-08-26 11:52:00 94 /min [facility] Systolic blood pressure 2024-08-26 06:00:00 166 mm[Hg] [facility] Diastolic blood pressure 2024-08-26 06:00:00 85 mm[Hg] [facility] Heart rate 2024-08-26 06:00:00 77 /min [facility] Body temperature 2024-08-26 06:00:00 36.83 Laxmi [facility] Respiratory rate 2024-08-26 06:00:00 18 /min [facility] Oxygen saturation in Arterial blood by Pulse oximetry 2024-08-26 06:00:00 95 /min [facility] Body height 2024-08-24 01:08:00 165.1 cm [facility] Body weight 2024-08-24 01:08:00 46.9 kg [facility] BMI 2024-08-24 01:08:00 17.21 kg/m2 [facility] Height 2023-05-26 20:33:00 5 [ft_i] [facility] [place] Weight 2023-05-26 20:33:00 [facility] BMI Calculated 2023-05-26 20:33:00 [facility] Systolic (mm Hg) 2023-05-26 20:33:00 [facility] [place] Diastolic (mm Hg) 2023-05-26 20:33:00 [facility] Heart Rate 2023-05-26 20:33:00 [facility] [place] Systolic (mm Hg) 2023-03-23 20:57:00 [facility] Diastolic (mm Hg) 2023-03-23 20:57:00 [facility] Heart Rate 2023-03-23 20:57:00 [facility] [place] Height 2023-03-23 20:57:00 5 [ft_i] [facility] [place] Weight 2023-03-23 20:57:00 [facility] [place] BMI Calculated 2023-03-23 20:57:00 [facility] pressure 2022-08-05 16:31:00 86 mm[Hg] [facility] Diastolic blood pressure 2022-08-05 16:31:00 61 mm[Hg] [facility] Heart rate 2022-08-05 16:31:00 68 /min [facility] Respiratory rate 2022-08-05 16:31:00 16 /min [facility] Oxygen saturation in Arterial blood by Pulse oximetry 2022-08-05 16:31:00 92 /min [facility] Body temperature 2022-08-05 16:15:00 36.61 Laxmi [facility] Body height 2022-08-05 13:26:00 167.6 cm [facility] Body weight 2022-08-05 13:26:00 49.261 kg [facility] BMI 2022-08-05 13:26:00 17.53 kg/m2 [facility] Systolic (mm Hg) 2022-07-03 23:12:00 [facility] [place] Diastolic (mm Hg) 2022-07-03 23:12:00 [facility] [place] Heart Rate 2022-07-03 23:12:00 [facility] Temperature Oral (F) 2022-07-03 23:12:00 97.1 F [facility] Height 2022-07-03 19:43:00 167.64 cm [facility] [place] BMI Calculated 2022-07-03 19:43:00 M [facility] Weight 2022-07-03 19:43:00 [facility] Systolic (mm Hg) 2022-04-11 18:27:00 [facility] [place] Diastolic (mm Hg) 2022-04-11 18:27:00 [facility] Heart Rate 2022-04-11 18:27:00 [facility] Respitory Rate 2022-04-11 18:27:00 M [facility] Height 2022-04-11 18:27:00 160.02 cm [facility] Weight 2022-04-11 18:27:00 [facility] BMI Calculated 2022-04-11 18:27:00 [facility] Systolic (mm Hg) 2021-11-27 20:49:00 [facility] [place] Diastolic (mm Hg) 2021-11-27 20:49:00 [facility] [place] Heart Rate 2021-11-27 20:49:00 [facility] Respitory Rate 2021-11-27 20:49:00 [facility] [facility] Height 2021-11-27 20:49:00 162.56 cm [facility] [place] Weight 2021-11-27 20:49:00 [facility] [place] BMI Calculated 2021-11-27 20:49:00 [facility] Systolic (mm Hg) 2021-03-29 18:46:00 [facility] [place] Diastolic (mm Hg) 2021-03-29 18:46:00 [facility] Heart Rate 2021-03-29 18:46:00 [facility] Respitory Rate 2021-03-29 18:46:00 [facility] [facility] Systolic (mm Hg) 2019-10-06 20:08:00 [facility] Diastolic (mm Hg) 2019-10-06 20:08:00 [facility] Heart Rate 2019-10-06 20:08:00 [facility] [place] Respitory Rate 2019-10-06 20:08:00 [facility] Height 2019-10-06 20:08:00 162.56 cm [facility] [place] Weight 2019-10-06 20:08:00 [facility] BMI Calculated 2019-10-06 20:08:00 [facility] [place] Weight 2019-03-25 18:58:00 [facility] BMI Calculated 2019-03-25 18:58:00 [facility] Height 2019-03-25 18:58:00 167.64 cm [facility] Systolic (mm Hg) 2019-03-25 18:58:00 [facility] [place] Diastolic (mm Hg) 2019-03-25 18:58:00 [facility] Heart Rate 2019-03-25 18:58:00 [facility] Respitory Rate 2019-03-25 18:58:00 [facility] BMI Calculated 2019-01-21 18:35:00 [facility] [facility] Weight 2019-01-21 18:35:00 [facility] [place] Height 2019-01-21 18:35:00 167.64 cm [facility] [place] Respitory Rate 2019-01-21 18:35:00 [facility] [facility] Heart Rate 2019-01-21 18:35:00 [facility] Systolic (mm Hg) 2019-01-21 18:35:00 [facility] [place] Diastolic (mm Hg) 2019-01-21 18:35:00 [facility] [place] BMI Calculated 2018-12-30 14:25:00 [facility] Weight 2018-12-30 14:25:00 [facility] [place] Height 2018-12-30 14:25:00 167.64 cm [facility] [place] Systolic (mm Hg) 2018-12-30 14:25:00 [facility] [place] Diastolic (mm Hg) 2018-12-30 14:25:00 [facility] Respitory Rate 2018-12-30 14:25:00 [facility] [facility] Heart Rate 2018-12-30 14:25:00 [facility] Systolic (mm Hg) 2018-10-19 22:38:00 [facility] Diastolic (mm Hg) 2018-10-19 22:38:00 [facility] Heart Rate 2018-10-19 22:38:00 [facility] Respitory Rate 2018-10-19 22:38:00 [facility] Height 2018-10-19 22:38:00 167.64 cm [facility] Weight 2018-10-19 22:38:00 [facility] [place] BMI Calculated 2018-10-19 22:38:00 [facility] Temperature Oral (F) 2018-02-06 17:35:00 99.2 F [facility] Heart Rate 2018-02-06 17:35:00 [facility] [place] Respitory Rate 2018-02-06 17:35:00 [facility] Systolic (mm Hg) 2018-02-06 17:35:00 [facility] Diastolic (mm Hg) 2018-02-06 17:35:00 [facility] [place] Heart Rate 2018-02-06 12:40:00 [facility] Respitory Rate 2018-02-06 12:40:00 [facility] Systolic (mm Hg) 2018-02-06 12:40:00 [facility] [place] Diastolic (mm Hg) 2018-02-06 12:40:00 [facility] Temperature Oral (F) 2018-02-06 12:40:00 98.5 F [facility] Respitory Rate 2018-02-06 08:12:00 [facility] Heart Rate 2018-02-06 08:12:00 [facility] Temperature Oral (F) 2018-02-06 08:12:00 97.8 F [facility] Systolic (mm Hg) 2018-02-06 08:12:00 [facility] [place] Diastolic (mm Hg) 2018-02-06 08:12:00 [facility] Height 2018-02-05 02:47:00 167.64 cm [facility] Weight 2018-02-05 02:47:00 [facility] BMI Calculated 2018-02-05 02:47:00 [facility] [place] BMI Calculated 2018-02-04 15:52:00 [facility] Weight 2018-02-04 15:52:00 [facility] Height 2018-02-04 15:52:00 167.64 cm [facility] Respitory Rate 2015-10-28 14:00:00 [facility] [facility] Systolic (mm Hg) 2015-10-28 14:00:00 [facility] Diastolic (mm Hg) 2015-10-28 14:00:00 [facility] [place] Temperature Oral (F) 2015-10-28 14:00:00 98.1 F [facility] Heart Rate 2015-10-28 14:00:00 [facility] Respitory Rate 2015-10-28 10:00:00 [facility] Systolic (mm Hg) 2015-10-28 10:00:00 [facility] [place] Diastolic (mm Hg) 2015-10-28 10:00:00 [facility] [place] Heart Rate 2015-10-28 10:00:00 [facility] [place] Temperature Oral (F) 2015-10-28 10:00:00 97.9 F [facility] Respitory Rate 2015-10-28 06:00:00 [facility] Rate 2015-10-28 06:00:00 [facility] Temperature Oral (F) 2015-10-28 06:00:00 97.6 F [facility] Systolic (mm Hg) 2015-10-28 06:00:00 [facility] [place] Diastolic (mm Hg) 2015-10-28 06:00:00 [facility] [place] Height 2015-10-27 02:52:00 152.4 cm [facility] [place] Height 2015-10-22 18:39:00 165.1 cm [facility] Weight 2015-10-22 18:39:00 [facility] BMI Calculated 2015-10-22 18:39:00 [facility] Procedures Procedure Date / Time Performed Performing Clinician Source JUDE,POST-VOID RES,US,NON-IMAGING 03-24 20:42:00 Cindi [facility] POCT URINALYSIS AUTO 2025-03-24 20:41:00 Cindi [facility] JUDE,POST-VOID RES,US,NON-IMAGING 03-03 18:53:00 Alia Rain [facility] JUDE,POST-VOID RES,US,NON-IMAGING 20 18:53:00 Alia Rain [facility] BASIC METABOLIC PANEL 2024-08-26 04:23:00 [facility] MAGNESIUM 2024-08-26 04[facility]23:[facility] 2024-08-26 04:23:00 [facility] CBC W/PLT COUNT & AUTO DIFFERENTIAL 2024-08-26 04:23:00 [facility] CBC W/PLT COUNT & AUTO DIFFERENTIAL 2024-08-26 04:23:00 [facility] REPORT OF PROCEDURE - ENDOSC OPY URL 2024-08-25 08:47:55 Campbell Chi [facility] TISSUE EXAM 2024-08-25 08:39:00 [facility] [place] ESOPHAGOGASTRODUODENOSCOP Y TRANSORAL DIAGNOSTIC 2024-08-25 08:15:00 [facility] ABORH, MANUAL 2024-08-25 07:40:00 Hope Rodriguez [facility] TYPE AND SCREEN, AUTOMATED 2024-08-25 07:28:00 [facility] BASIC METABOLIC PANEL 2024-08-25 03:28:00 Pearson [facility] MAGNESIUM 2024-08-25 03:28:00 [facility] PHOSPHORUS 2024-08-25 03:28:00 [facility] CBC W/PLT COUNT & AUTO DIFFERENTIAL 2024-08-25 03:28:00 [facility] CBC W/PLT COUNT & AUTO DIFFERENTIAL 2024-08-25 03:28:00 [facility] BASIC METABOLIC PANEL 2024-08-24 04:31:00 [facility] HEPATIC FUNCTION PANEL 2024-08-24 04:31:00 [facility] PROTHROMBIN TIME/INR 2024-08-24 04:31:00 [facility] MAGNESIUM 2024-08-24 04:31:00 [facility] PHOSPHORUS 2024-08-24 04:31:00 [facility] CBC W/PLT COUNT & AUTO DIFFERENTIAL 2024-08-24 04:31:00 [facility] W/[facility]T [facility] & AUTO DIFFERENTIAL 2024-08-24 04:31:00 [facility] [place] [facility] 2022-08-05 16:07:00 Mike Garza [facility] REPORT OF PROCEDURE - ENDOSC OPY URL 2022-08-05 16:01:37 Mike Garza [facility] ENDOSCOPIC RETROGRADE CHOLANGIOPANCREATOGRAPHY (ENDOSCOPIC RETROGRADE CHOLANGIOPANCREATOGRAPHY) 2022-08-05 15:43:00 Mike Garza [facility] PROCEDURE W/ C-ARM 2022-08-05 15:43:00 Mike Garza [facility] ERCP, WITH SPHINCTEROTOMY 2022-08-05 15:43:00 Garza [facility] ERCP, WITH BALLOON SWEEP OF BILE DUCTS 2022-08-05 15:43:00 Garza [facility] BASIC METABOLIC PANEL (NA, K , CL, CO2, GLUCOSE, BUN, CREATININE, CA) 2021-04-16 11:16:00 Dallas Ramírez [facility] ADC,CLC OR LCC ONLY - INFLUE NZA A & B DIRECT ANTIGEN 2021-04-15 23:26:00 Avani Louis [facility] CT CHEST PULMONARY ANGIOGRAM 2021-04-15 22:54:30 Avani Louis [facility] COVID-19 (ID NOW RAPID TESTING) 21:15:00 Avani Louis [facility] LAB ONLY COVID INTERPRETATION 2021-04-15 21:15:00 Avani Louis [facility] LACTIC ACID WHOLE BLOOD 2021-04-15 21:11:00 Avani Louis [facility] MAGNESIUM 2021-04-15 21:10:00 Avani Louis [facility] COMP. METABOLIC PANEL (01766) 2021-04-15 21:10:00 Avani Louis [facility] CBC WITH DIFF 2021-04-15 21:10:00 Avani Louis [facility] GLYCOSYLATED HEMOGLOBIN (A1C) 2021-04-15 21:10:00 Diego Herrera [facility] PROTHROMBIN TIME / INR 2021-04-15 21:10:00 Avani Louis [facility] D-DIMER 2021-04-15 21:10:00 Avani Louis [facility] ACTIVATED PARTIAL THRMPLAS SUKI 2 21:10:00 Avani Louis [facility] N-TERMINAL PRO-BNP 2021-04-15 21:10:00 Avani Louis [facility] HB ECG ROUTINE & RHYTHM STRIP 2021-04-15 21:00:18 Avani Louis [facility] TROPONIN I 2020-03-01 22:18:00 Keren Mares [facility] HEPATIC FUNCTION PANEL (8007 6) (ALB,T.PRO,BILI T,BU/BC,ALT,AST,ALK PHOS) 2020-03-01 22:18:00 Keren Mares [facility] BASIC METABOLIC PANEL (NA, K , CL, CO2, GLUCOSE, BUN, CREATININE, CA) 2020-03-01 22:18:00 Keren Mares [facility] CBC WITH DIFFERENTIAL 2020-03-01 22:18:00 Keren Mares [facility] N-TERMINAL PRO-BNP 2020-03-01 22:18:00 Keren Mares [facility] COVID-19 (ID NOW RAPID TESTING) 22:18:00 Keren Mares [facility] NOTICE OF PRIVACY PRACTICES 2020-03-01 21:12:20 Doctor Unassigned, [place] [facility] CONSENT/REFUSAL FOR DIAGNOSI S AND TREATMENT 2020-03-01 21:11:40 Doctor Unassigned, [place] [facility] Herm lori Hysterectomy [facility] Repair of shoulder [facility] Cholecystectomy [facility] Plan of Care Planned Activity Planned Date Details Comments Source Future Scheduled Test 2023-08-05 00:00:00 Tobacco Cessation Counseling and Screening (12+) [code = Tobacco Cessation Counseling and Screening (12+)] [facility] [facility] Future Scheduled Test 2023-08-05 00:00:00 Tobacco Cessation Counseling and Screening (12+) [code = Tobacco Cessation Counseling and Screening (12+)] [facility] Future Scheduled Test 2023-08-05 00:00:00 Tobacco Cessation Counseling and Screening (12+) [code = Tobacco Cessation Counseling and Screening (12+)] [facility] Future Scheduled Test 2023-08-05 00:00:00 Tobacco Cessation Counseling and Screening (12+) [code = Tobacco Cessation Counseling and Screening (12+)] [facility] Future Scheduled Test 2023-05-15 00:00:00 INFLUENZA VACCINE (Season Ended) [code = INFLUENZA VACCINE (Season Ended)] [facility] Future Scheduled Test 2022-09-15 00:00:00 MEDICARE ANNUAL WELLNESS (YEAR 2 or FIRST YEAR if no IPPE) [code = MEDICARE ANNUAL WELLNESS (YEAR 2 or FIRST YEAR if no IPPE)] [facility] Future Scheduled Test 2022-09-15 00:00:00 MEDICARE ANNUAL WELLNESS (YEAR 2 or FIRST YEAR if no IPPE) [code = MEDICARE ANNUAL WELLNESS (YEAR 2 or FIRST YEAR if no IPPE)] [facility] Future Scheduled Test 2022-09-15 00:00:00 MEDICARE ANNUAL WELLNESS (YEAR 2 or FIRST YEAR if no IPPE) [code = MEDICARE ANNUAL WELLNESS (YEAR 2 or FIRST YEAR if no IPPE)] [facility] Future Scheduled Test 2022-09-15 00:00:00 MEDICARE ANNUAL WELLNESS (YEAR 2 or FIRST YEAR if no IPPE) [code = MEDICARE ANNUAL WELLNESS (YEAR 2 or FIRST YEAR if no IPPE)] [facility] Future Scheduled Test 2022-09-14 00:00:00 FALLS RISK SCREENING [code = FALLS RISK SCREENING] [facility] Future Scheduled Test 2022-09-14 00:00:00 DEPRESSION SCREENING (12+) [code = DEPRESSION SCREENING (12+)] [facility] Future Scheduled Test 2022-09-14 00:00:00 FALLS RISK SCREENING [code = FALLS RISK SCREENING] [facility] Future Scheduled Test 2022-09-14 00:00:00 DEPRESSION SCREENING (12+) [code = DEPRESSION SCREENING (12+)] [facility] Future Scheduled Test 2022-09-14 00:00:00 FALLS RISK SCREENING [code = FALLS RISK SCREENING] [facility] Future Scheduled Test 2022-09-14 00:00:00 DEPRESSION SCREENING (12+) [code = DEPRESSION SCREENING (12+)] [facility] Future Scheduled Test 2022-09-14 00:00:00 FALLS RISK SCREENING [code = FALLS RISK SCREENING] [facility] Future Scheduled Test 2022-09-14 00:00:00 DEPRESSION SCREENING (12+) [code = DEPRESSION SCREENING (12+)] [facility] Future Scheduled Test 2022-05-15 00:00:00 INFLUENZA VACCINE (#1) [code = INFLUENZA VACCINE (#1)] [facility] Future Scheduled Test 2022-05-15 00:00:00 INFLUENZA VACCINE (#1) [code = INFLUENZA VACCINE (#1)] [facility] Future Scheduled Test 2022-05-15 00:00:00 INFLUENZA VACCINE (#1) [code = INFLUENZA VACCINE (#1)] [facility] Future Scheduled Test 2001 00:00:00 PNEUMOCOCCAL 65+ YRS (1 - PCV) [code = PNEUMOCOCCAL 65+ YRS (1 - PCV)] [facility] Future Scheduled Test 2001 00:00:00 PNEUMOCOCCAL 65+ YRS (1 - PCV) [code = PNEUMOCOCCAL 65+ YRS (1 - PCV)] [facility] Future Scheduled Test 2001 00:00:00 PNEUMOCOCCAL 65+ YRS (1 - PCV) [code = PNEUMOCOCCAL 65+ YRS (1 - PCV)] [facility] Future Scheduled Test 2001 00:00:00 PNEUMOCOCCAL 65+ YRS (1 - PCV) [code = PNEUMOCOCCAL 65+ YRS (1 - PCV)] [facility] Future Scheduled Test 1986 00:00:00 SHINGLES VACCINES (1 of 2) [code = SHINGLES VACCINES (1 of 2)] [facility] Future Scheduled Test 1986 00:00:00 SHINGLES VACCINES (1 of 2) [code = SHINGLES VACCINES (1 of 2)] [facility] Future Scheduled Test 1986 00:00:00 SHINGLES VACCINES (1 of 2) [code = SHINGLES VACCINES (1 of 2)] [facility] Future Scheduled Test 1986 00:00:00 SHINGLES VACCINES (1 of 2) [code = SHINGLES VACCINES (1 of 2)] [facility] Future Scheduled Test 1955 00:00:00 DTAP/TDAP/TD VACCINES (1 - Tdap) [code = DTAP/TDAP/TD VACCINES (1 - Tdap)] [facility] Future Scheduled Test 1955 00:00:00 DTAP/TDAP/TD VACCINES (1 - Tdap) [code = DTAP/TDAP/TD VACCINES (1 - Tdap)] [facility] Future Scheduled Test 1955 00:00:00 DTAP/TDAP/TD VACCINES (1 - Tdap) [code = DTAP/TDAP/TD VACCINES (1 - Tdap)] [facility] Future Scheduled Test 1955 00:00:00 DTAP/TDAP/TD VACCINES (1 - Tdap) [code = DTAP/TDAP/TD VACCINES (1 - Tdap)] [facility] Future Scheduled Test 1936 00:00:00 COVID-19 VACCINE (#1) [code = COVID-19 VACCINE (#1)] [facility] Future Scheduled Test 1936 00:00:00 COVID-19 VACCINE (#1) [code = COVID-19 VACCINE (#1)] [facility] Future Scheduled Test 1936 00:00:00 COVID-19 VACCINE (#1) [code = COVID-19 VACCINE (#1)] [facility] Future Scheduled Test 1936 00:00:00 COVID-19 VACCINE (#1) [code = COVID-19 VACCINE (#1)] [facility] Encounters Start Date/Time End Date/Time Encounter Type Admission Type Attending [facility] Care Facility Care Department Encounter ID Source 2025-06-02 00:00:00 2025-06-02 13:25:10 Telephone Joe Puente [place] [id number] 350.1.13.10 4.2.7.2.686 [id number] [facility] 2025-06-02 11:45:00 2025-06-02 12:00:00 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, 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 Cindi Joe [address]2.840.114 350.1.13.10 4.2.7.2.686 [id number] [facility] 2025-05-19 00:00:00 2025-05-19 16:21:17 Telephone Joe Puente [facility] 1.2.840.114 350.1.13.10 4.2.7.2.686 [id number] [facility] 2025-05-08 00:00:00 2025-05-17 09:30:46 Telephone Joe Puente [facility] 1.2.840.114 350.1.13.10 4.2.7.2.686 [id number] [facility] 2025-05-08 14:45:00 2025-05-08 14:45:00 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, 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 Lab Joe Puente 2, Adc Lab [facility] 1.2.840.114 350.1.13.10 4.2.7.2.686 [id number] [facility] 2025-04-10 00:00:00 2025-04-21 14:35:41 Telephone Joe Puente [facility] 1.2.840.114 350.1.13.10 4.2.7.2.686 [id number] [facility] 2025-04-14 00:00:00 2025-04-14 17:31:01 Den Pisano 1.2.840.114 350.1.13.70 8.2.7.2.686 [id number] Marlon Andrade [facility] 2025-04-12 15:45:00 2025-04-12 16:00:00 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, 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 Joe Puente 2, Adc Lab [facility] 1.2.840.114 350.1.13.10 4.2.7.2.686 [id number] [facility] 2025-03-24 00:00:00 2025-03-25 02:03:45 Orders Only Bahena, Pascale E Bahena, [facility] 1.2.840.114 350.1.13.10 4.2.7.2.686 [id number] [facility] 2025-03-24 14:00:00 2025-03-24 15:37:19 Office Visit Joe Puente [facility] 1.2.840.114 350.1.13.10 4.2.7.2.686 [id number] [facility] 2025-03-03 13:00:00 2025-03-03 13:30:00 Office Visit Koffi Alia 1.2.840.1 [id number] 3.104.2.7 .[id number] [id number] [facility] 2025-03-03 00:00:00 2025-03-03 00:00:00 Travel 1.2.840.1 [id number] 3.104.2.7 [id number] .8 1.2.840.114 350.1.13.10 4.2.7.3.698 [id number] [facility] 2024-09-15 15:05:14 2024-09-15 15:40:35 Outpatient Elective DEN SHRESTHA EOUT EOUT [id number] [facility] 2024-09-15 14:45:00 2024-09-15 15:00:00 Office Visit Den Shrestha 1.2.840.114 350.1.13.70 8.2.7.2.686 [id number] Marlon peterson [facility] 2024-08-24 00:30:00 2024-08-26 14:35:00 Hospital Encounter German Luna Mahmoud Zindani, Shireen [facility] [id number] [facility] 2024-08-24 00:30:00 2024-08-26 14:35:00 Inpatient UR JAYLEN SERNA [facility] Gastro [id number] [facility] 2024-08-25 08:00:00 2024-08-25 09:10:[address] [facility] [id number] [facility] 2024-08-25 08:15:00 2024-08-25 08:55:00 Anesthesia Event Mallory Jacob Liliane Estrella Sheyla [facility] [id number] [facility] 2024-08-24 00:00:00 2024-08-24 00:00:00 Travel [facility] [id number] [facility] 2022-12-10 20:00:00 2022-12-10 20:00:00 Ambulatory Pre-Reg MH[facility] [place] [id number] [facility] 2022-08-05 13:01:00 2022-08-05 17:26:00 Hospital Encounter Mike Garza [facility] [id number] [facility] 2022-08-05 13:01:00 2022-08-05 17:26:00 [facility] [id number] [facility] 2022-08-05 15:43:00 2022-08-05 16:16:00 Anesthesia Event Chen Garza [facility] [id number] [facility] 2022-08-05 15:00:00 2022-08-05 16:00:[address] [facility] [id number] [facility] 2022-08-05 00:00:00 2022-08-05 00:00:00 Travel [facility] [id number] [facility] 2022-07-31 11:59:14 2022-07-31 23:59:00 Outpatient EL SLE [facility] [id number] [facility] 2022-07-31 11:40:00 2022-07-31 23:59:[address] [facility] [id number] [facility] 2022-07-31 00:00:00 2022-07-31 00:00:00 Travel [facility] [id number] [facility] 2022-07-23 19:45:00 2022-07-23 19:45:00 Ambulatory Pre-Reg nullFlavo r [facility] [place] [id number] Marlon Andrade 2022-07-03 19:19:00 2022-07-03 23:15:00 Emergency nullFlavo r [facility] [id number] Marlon Andrade 2022-07-03 14:19:00 2022-07-03 18:15:00 Emergency E MAYI SIMONS [facility]BL MHBL 7500 [facility] 2022-04-11 18:00:00 2022-04-12 04:59:59 Outpatient nullFlavo r [facility] [place] [id number] Marlon Andrade 2022-03-18 19:00:00 2022-03-18 19:00:00 Ambulatory Pre-Reg nullFlavo r [facility] [place] [id number] Marlon Andrade 2021-11-27 20:00:00 2021-11-28 04:59:59 Outpatient nullFlavo r [facility] [place] [id number] Marlno Andrade 2021-11-27 19:45:00 2021-11-27 19:45:00 Ambulatory Pre-Reg nullFlavo r [facility] [place] [id number] Marlon Andrade 2021-05-06 19:00:00 2021-05-06 19:00:00 Ambulatory Pre-Reg nullFlavo r [facility] [place] [id number] Marlon Andrade 2021 00:00:00 2021 00:00:00 Transition of Care Dakotah Snyder 1.2.840.114 350.1.13.10 4.2.7.2.686 [id number] 2021 00:00:00 2021 00:00:00 Transition of Care Dakotah Snyder 1.2.840.114 350.1.13.10 4.2.7.2.686 [id number] [facility] 2021-04-15 15:40:00 2021-04-17 20:05:00 Hospital Encounter Avani Louis, Sree Herrera, Diego [facility] 1.2.840.114 350.1.13.10 4.2.7.2.686 [id number] 2021-04-15 15:40:00 2021-04-17 20:05:00 Hospital Encounter Avani Louis Cecil Reynoso, Diego Landaverde, Torrey PrietoJacob [facility] 1.2.840.114 350.1.13.10 4.2.7.2.686 [id number] [facility] 2021-04-15 15:40:00 2021-04-15 15:40:00 Emergency X MERYAvani [facility] ERT [id number] [facility] 2021-04-04 19:00:00 2021-04-04 19:00:00 Ambulatory Pre-Reg nullFlavo r [facility] [id number] Marlon Andrade 2021-03-29 18:00:00 2021-03-30 04:59:59 Outpatient nullFlavo r [facility] [place] [id number] Marlon Andrade 2021-02-20 19:15:00 2021-02-20 19:15:00 Ambulatory Pre-Reg nullFlavo r [facility] [place] [id number] Marlon Andrade 2021-01-23 19:00:00 2021-01-23 19:00:00 Ambulatory Pre-Reg nullFlavo r [facility] [place] [id number] Marlon Andrade 2020-12-06 20:30:00 2020-12-06 20:30:00 Ambulatory Pre-Reg nullFlavo r [facility] [place] [id number] Marlon peterson [place] 2020-11-15 21:15:00 2020-11-16 05:59:59 Outpatient nullFlavo r [facility] [place] [id number] Marlon peterson [place] 2020-10-22 21:23:00 2020-10-24 05:59:59 Outside Medical Records nullFlavo r [facility] [place] [id number] Marlon peterson [place] 2020-07-26 20:00:00 2020-07-27 05:59:59 Outpatient nullFlavo r [facility] [place] [id number] Marlon peterson [place] 2020-04-05 19:00:00 2020-04-06 04:59:59 Outpatient nullFlavo r [facility] [place] [id number] Marlon peterson [place] 2020-04-05 19:00:00 2020-04-05 19:00:00 Ambulatory Pre-Reg nullFlavo r [facility] [place] [id number] Marlon peterson [place] 2020-03-01 16:34:28 2020-03-01 19:52:00 Emergency Keren Mares [facility] 1.2.840.114 350.1.13.10 4.2.7.2.686 [id number] 2020-03-01 16:34:28 2020-03-01 19:52:00 Emergency X KEREN MARES [facility] ERT [id number] [facility] 2020-03-01 16:34:28 2020-03-01 19:52:00 Emergency Keren Mares [facility] 1.2.840.114 350.1.13.10 4.2.7.2.686 [id number] [facility] 2019-10-06 19:15:00 2019-10-07 05:59:59 Outpatient nullFlavo r [facility] [place] [id number] Marlon peterson [place] 2019-07-29 13:00:00 2019-07-29 13:00:00 Outpatient MHIE MHIE [id number] Marlon peterson [place] 2019-03-31 20:15:00 2019-03-31 20:15:00 Ambulatory Pre-Reg nullFlavo r [facility] [place] [id number] Marlon peterson [place] 2019-03-25 18:00:00 2019-03-26 04:59:59 Outpatient nullFlavo r [facility] [place] [id number] Marlon peterson [place] 2019-02-09 19:45:00 2019-02-09 19:45:00 Ambulatory Pre-Reg nullFlavo r [facility] [place] [id number] Marlon peterson [place] 2019-01-21 18:15:00 2019-01-22 04:59:59 Outpatient nullFlavo r [facility] [place] [id number] Marlon peterson [place] 2018-12-30 14:00:00 2018-12-31 04:59:59 Outpatient nullFlavo r [facility] [place] [id number] Renettanicole peterson [place] 2018-10-19 22:00:00 2018-10-20 05:59:59 Outpatient nullFlavo r [facility] [place] [id number] Marlon peterson [place] 2018-09-17 21:30:00 2018-09-19 05:59:59 Phone Message nullFlavo r [facility] [place] [id number] Marlon peterson [place] 2018-08-20 19:01:00 2018-08-22 05:59:59 Phone Message nullFlavo r [facility] [place] [id number] Renettanicole nicholas Anrdade 2018-02-04 08:21:00 2018-02-06 21:15:00 Inpatient nullFlavo r [facility] [id number] Renettanicole nicholas Andrade 2015-10-22 18:39:00 2015-10-28 17:47:00 Inpatient nullFlavo r [facility] [id number] Marlon Andrade Results Test Description Test Time Test Comments Results Result Co mments Source [id number]:42:00* Test Item Value Reference Range Interpretation Comme nts PVR (URINE VOLUME) (test code = 5193) 3 ml 0-100 [id number] 18:53:00* Test Item Value Reference Range Interpretation Comme nts PVR (URINE VOLUME) (test cod e = 5193) 435 ml 0-100 A Lab Interpretation (test cod e = 22751-3) Abnormal [facility] [id number] 11:21:00* Test Item Value Reference Range Interpretation Comme nts Case Report (test code = 104) Surgical Pathology Report Case: [id number] Authorizing Provider: Campbell Chi MD Collected: 08/25/2024 08:39 AM Ordering Location: [address] Received: 08/25/2024 12:56 PM Service Pathologist: Ju Berrios MD Specimens: A) - Biopsy, Gastric, Random gastric bxs R/O H.pylori B) - Biopsy, Esophagus, Random esophageal bxs R/O zane DIAGNOSIS (test code = 3220) [id number] FuZzEwMzNcZnRuYmpcdWMx QAxohaHeFDoivYpgEJU5JJ QhVZ0pjXafmIs4dNokWEJt oyV6hDBwLOqwq6qqZCD5h3 faxtflEWXqCExdBe4mvPJo oLguHrCqSGIwKRb6vC12OT PisG1fjPSeRSv9DBMbrZRl zpGsPdMmHLFpsRGcqRD6FI FvTY9wbvmpRWqmKEixGZIu oqD7DUBqxAJcT2NsYZXbMW 2jtyeuNZU9OPdlLAUmXQH7 UcZjZISyd2Amfyw4PzRjyB FyZFxwbGFpblxmczIwIEEu XNHUYC5QXTAUGJXSVR7EH6 h7KODyrhbkEVNdXRyzb2We rRBfWL62dqViRHOsRDXow9 D4JEG1oVOxwBItq5NoFDfw dGggbWlsZCBjaHJvbmljIG nyo7DbpIBlkynnnM8nF8Wv owYezSRqEB2CoQxcYPCcFC C7bVMgTRjea2Fbi7PkyFn6 PCAkwjYnCo2eSV1fkAcao4 QuXI4iO6YegULnqnEeHHXx ePvptKQhYRR4LMObpZEdyj Bec7RooH2dlQErNYMfpeQY SqLhKVPDFZlMW0DLZLPVNJ 0SG96qSprIHJALPVM3FTYw otqrKUUqKDKaqSQnw1ZmTP Opr1PvHNfmJDzreBTyd2Oz VRtpxMtzC2XpYKsxRWDiu6 XxH6xgcJJoYHBtg2EqTNxn dGlzXHBhciAtTmVnYXRpdm XnRr1lHVA9k5WtEBNuTIlr ECC4m7opwSXoYZFuvOMuTS AwMFxhbnNpXGRlZmxhbmcx ZDAuNZX8fuFcQRBdHHnkYQ BxSXauIw8grYAcmBgqQsTf BAXtg0lhddLHnnkoyVk6a7 usPQSsIwB0kDPwHSabS4hb pgEvuJQpBALiHLi7rN87ZJ SqgL5ndRVsHGtoxgKcCxV4 ITooPVLcGoW6CCYggOLxAD WpA0omNZJeNRagQGFqLZvv vSXnDNY8kZwse6N3gIDgeH HdwQshXwGpMcEvLvCJh5Uf JGp2gYawK8ExIDTnIfC8mT QgUGFyYWdyYXBoIEZvbnQ7 jO45PLlwqfD1eYAgu4Cwx4 2hd658qZ0azLHjKWJ4PCTi CVAlhFNzCPTjLUZ6KCJupN PoA7duUXRbCS5xxjssMFjt IUcdBXShlDN2KAOmdMMdX7 UsSYJnAYaqTIOvjod4TcTw Ja6cdFBkdEjxDAsxm7wba6 eqqNNoLvs0AGJdViCvFagi UJpgi8Odd9jiCPCrcr3rTO M9cRFsmFjtp5Z2jFHvXDSq nWXsGARqIM4muXCyUAUmfK 5ucmxjXHBnYnJkcmhlYWRc qSlikxZaXi9xkPjhGMO8SI hmP5zhnC9zGqQ2ELbwX8sz fR4oAWz9TGdaIHDlyBQ5nb O8LVZzcOOtK3BisS5lSOXs ST1igmm6q5lyHFZ6XRuyBL CyVqL1sjX0BCGyuRXmIUAe dInfOZbjo390VRQ0EfGyPQ Lgz9GfJ7GxxGnuG35ioZdo O43hOJDxzSmlbD1tqAjhbS 2lOrJeHlSwKNwczXlcTX0s WSKpZ9ixaYYuDNVzLRWqT7 cpCdVyrP5zmHjuTVjgtpGq VQBlMmb2UBFeaKUfXXVsCp u4BDKgVTYkB84voowhVFN1 fU0to8mto2UkBEvfMNS3KU Qvp73hKWlqxfT1XExcOh74 UMbkBEV6ZMvpZCO6mE== CPT Code(s) (test code = 3357) o9mktGSaIVBfjXPlELjeUW kpkkYiVEBygWLdC1Zwifra ARmcNA6mNF0aqQjwtVLqrT KuKWTvLkXbl3yfk686aCMq b9jiRXJXucettSy4ySwrW4 5bi4B6AfdyM23beZUyAFH5 LPBuJFAvyEFjQCHgTDE5ML CheLFrI5lwENMaRW9kcikx MIqjXMcvRAKzzRT7YPIpfK RtV4DmPORoXWwwXAUzmwk7 BbLnGy8gfWNbhAjlOPxkMH JkXHBsYWluXGZzMjAgODgz MDUgeCAyXHBhcn0= CLINICAL HISTORY (test code = 3356) x9bybFJxJDVapOEcGUxvLn xkqsBlJDZqqPAdE7Uitbwv CLybOW7aBT4gvAujgLNroV OiAHPrJoHin1who829yFNv w9jjHDCEhmyflUb2kBfkG7 0hx0O6GfcfJ09cvPRjDYI5 BJBnECKzuYYdCLTdNFE8PH PywQGwG1ouLSOpSA4rwhmc DUguYAepMTWzrHW4ZKOaxY BqU5GlPMRqTFdtQOPbbal2 NuXuKb1juQTwcTjwMCtdUA JkXHBsYWluXGZzMjAgTWVs VQ2uGPQfTJJ3tCUjoCfnTL JccGFyfQ== GROSS DESCRIPTION (test code = 5132999252) q8ivdMDkYZGmsKZPIJI3ZG MyOO3toSdgkXd3xYnaBATe feT1pDNqKLrmo7tgFET9c2 wforENItaiFOFhKE8hYHze CSPuVP9oFtMlQDOuVvYeUH BhcGVydzEyMjQwXHBhcGVy eHE4XUEnBO0tewicMLtzFH saEPWvyaW8ZRDhyEYeX8Hw TGLsDK7tqxdjJDK2BJGZWt fwJy7wjXCywVYFEhwjFvKf YuRqIWXdJVOeAAJqz9kolb UQchocjDc2WGg3LPMfEFAf rHLpo2W1VMwxw2rtl5PoGX HwS8HraoGBEYQeEyr9cZ4F i0pdv6bbqlAvmGojlfZqRL odyuKyxfXqXle3WQJ1gF5F OJMuD3FpAM4Vh6bsVLKlkE FySQT7LDdky9wySGjqNOK3 LWIvNKDrVILkHQ5JGvIbPN Z1ZPJ9HxV4FvU6FKd7KLTW XRMmYuB5Gpq7UTA7YFl0XY SgBB0uRNepeXBaGVyyZsik XGbiM903EXguMEUmA2JrG0 QgXFxzZyBcXGlkIDUxMDAy DClwVDJaH2LKMTBfEoOnLe MqOeKbYFv4XCv5FM6ANdKy KHC8CSI7UPS9KQSlZGi0IT vfOC0LWQZjQGV2VYC8DdUz PEDyAWJgQAs7XAZtGLglqh TrWNnpSlzyUVgsB11cmHOy ZCANClxwbGFpblxmMVxmcz NkJRBuWESov4XytKptH3Sz aRFzS4smlJWyjPyeJxknTY IgDQpccGFyZCANClxwbGFp blxsdHJjaFxmczIyXGVwaW HHBYT3ST2sBMUDOwnouWWc XAYdNOfyEoKfB4AyZPRhJb IdQpWzDAa6XKDhrS5uAp6h fGEoqJ0kiOYaBWrfUVR8xY TeCYFaPJChLXWtCC49QNyL NHMgbmFtZSwgbWVkaWNhbC ByZWNvcmQgbnVtYmVyIGFu PZJlwUnwYkRqFRs6U1Nngn ZfrTPkDMS1oewyTACxd9Hb iBWzPLK6nWMwz4O0UQtwNA X4gV7ddTNdMMFbPP16qDKd qOkfMMgbqbDaeNvkxuE5FH 9euIwzljKts8N9PDNgh8E9 ZSBmcmFnbWVudHMgcmFuZ2 grHtLpmb6iLVRjMRF4pgKl KmDiD18cb1ThfZy0wPBwNQ cuEXZbgF9muD2aATCyKQIs otZQIyigUHGaHSrxr0QdBH wntMjnDZUaHpWzBGlmH6Iu AGXrKrZnZCeuIDNkY36di1 GGw6Vby8bexZxke1QrfDRl TW5ipHCiKD8Nv4tvKMGwyH VoLIP6PRgpb7uoFRyqEHX7 SJTgZtNcOOTvIO8KCiUjZM M7OHF9EdW0NfK3IEn8QXFJ VlMgIiAgNDUwNjkzNzkiID m7IRf5EMjDOhAfCIYaKZFt EYZ6BFX4HaM4QJtwxUXnQA klu1KcLvVtXMEmBKamdcL2 WBFaazCjr0QyCLXxJTLkM1 jjPdWkTCEEArKeWCVfa2Dd xCelYOTocJetM4JqHQNdHI ZohnCSCgnhXNVlWJ6PUTBl TNoyYMx5skCdCVUpKtEfNP SlG92bu3EOt3WzYS5EVJu0 cnBhclxzYjMwXGVwaWNYc2 IzMCANClxmMVxjZjFcZnMy MCBSZWNlaXZlZCBpbiBmb3 JtYWxpbiBsYWJlbGVkIHdp dGggdGhlIHBhdGllbnRcJ0 S1zuVjCF4gHTRlIJHpD0Lq ZXZjQ40jWZNfwM1lEYThQU 4gENe2CPOsBIDoNwrqYkgv rAE5JPJwLY3nh89xHDHwrR jaG6OqmCEhgJ4zn1tyelUq RLDjrAYgI2NsEOjmTRWrXL EsPZ09jYWbwGuvALpdopAp tUyfkrV9CR2xdPledpPvx1 F2ICFeo0X3VBZoxqCveLIm jRHjbdOcF8aoArXioo5hKZ AeBTU5gjQtCxHvK16vl7Cp yJz4aGTkBAxtVACxaR2nnS 4gQjEuXHBhciANClxwYXJk LJu8tpLvgkNDRchrECUuCQ ywy1AqLNvzbVxoZLVeJwWe ELpkR4MoIGCnTpDuGChsDP DaU92yg7IXu5Ptj8otuOlb b9NugACaNP95KYDdsYBlRD Z3GF1klXmnZSAlLGchgWFk ZCANClxwbGFpbiANCn0= [facility] [id number] 11:21:00Surgical Pathology Report Case: [id number] Authorizing Provider: Campbell Chi MD Collected: 08/25/2024 08:39 AM Ordering Location: [address] Received: 08/25/2024 12:56 PM Service Pathologist: Ju Berrios MD Specimens: A) - Biopsy, Gastric, Random gastric bxs R/O H.pylori B) - Biopsy, Esophagus, Random esophageal bxs R/O zane A. STOMACH, BIOPSY:-Gastric antral and body type mucosa with mild chronic gastritis, inactive-Mild reactive gastropathy-No H. pylori organisms identified by routine stainB. ESOPHAGUS, RANDOM BIOPSIES:-Squamous esophageal mucosa with Zane associated esophagitis- Negative for dysplasia Signing Pathologist Direct Phone Line: [phone] x [phone], peptic ulcerA. Biopsy, GastricReceived in formalin labeled with the patient's name, medical record number and "random gastric biopsies rule out H. pylori" are multiple irregular paredes-pink soft tissue fragments ranging from 0.1 to 0.4 cm submitted in toto in A1.B. Biopsy, EsophagusReceived in formalin labeled with the patient's name, medical record number and "biopsy, random esophageal biopsy rule outCandida" are multiple irregular paredes-pink soft tissue fragments ranging from 0.1 to 0.4 cm submittedin toto in B1.BASIC METABOLIC [id number] 05:08:59* Test Item Value Reference Range Interpretation Comme nts SODIUM (BEAKER) (test code = 381) 140 meq/L 136-145 POTASSIUM (BEAKER) (test code = 379) 3.7 meq/L 3.4-5.1 CHLORIDE (BEAKER) (test code = 382) 110 meq/L 98-107 H CO2 (BEAKER) (test code = 355) 26 meq/L 22-29 BLOOD UREA NITROGEN (BEAKER) (test code = 354) 10 mg/dL 10-20 CREATININE (BEAKER) (test code = 358) 0.73 mg/dL 0.57-1.11 GLUCOSE RANDOM (BEAKER) (test code = 652) 111 mg/dL 70-105 H CALCIUM (BEAKER) (test code = 697) 8.1 mg/dL 8.4-10.2 L EGFR (BEAKER) (test code = 1092) 79 mL/min/1.73 sq m Interpretation of eG FR values Stage Description Result G1 Normal or high >=90 G2 Mildly decreased 60-89 G3a Mildly to moderately 45-59 G3b Moderately to severely 30-44 G4 Severly decreased 15-29 G5 Kidney failure <15Reported eGFR is based on the CKD-EPI 2020 equation that does not use a race coefficientEstimated GFR is not as accurate as Creatinine Clearance in predicting glomerular filtration rate. Estimated GFR is not applicable for dialysis patients [id number] 05:08:59* Test Item Value Reference Range Interpretation Comme nts MAGNESIUM (BEAKER) (test cod e = 627) 1.7 mg/dL 1.6-2.6 [id number] 05:08:59* Test Item Value Reference Range Interpretation Comme nts PHOSPHORUS (BEAKER) (test co de = 604) 2.7 mg/dL 2.3-4.7 CBC W/PLT COUNT & AUTO [id number] 04:38:25* Test Item Value Reference Range Interpretation Comme nts WHITE BLOOD CELL COUNT (BEAK ER) (test code = 775) 9.2 K/ L 3.5-10.5 RED BLOOD CELL COUNT (BEAKER ) (test code = 761) 3.24 M/ L 3.93-5.22 L HEMOGLOBIN (BEAKER) (test co de = 410) 10.0 GM/DL 11.2-15.7 L HEMATOCRIT (BEAKER) (test co de = 411) 31.0 % 34.1-44.9 L MEAN CORPUSCULAR VOLUME (JONATHAN KER) (test code = 753) 96 fL 79-95 H MEAN CORPUSCULAR HEMOGLOBIN (BEAKER) (test code = 751) 30.9 pg 25.6-32.2 MEAN CORPUSCULAR HEMOGLOBIN CONC (BEAKER) (test code = 752) 32.3 GM/DL 32.2-35.5 RED CELL DISTRIBUTION WIDTH (BEAKER) (test code = 412) 14.2 % 11.7-14.4 PLATELET COUNT (BEAKER) (carolyn t code = 756) 281 K/CU MM 150-450 MEAN PLATELET VOLUME (BEAKER ) (test code = 754) 8.6 fL 9.4-12.3 L NUCLEATED RED BLOOD CELLS (BEAKER) (test code = 413) 0 /100 WBC 0-0 NEUTROPHILS RELATIVE PERCENT (BEAKER) (test code = 429) 65 % LYMPHOCYTES RELATIVE PERCENT (BEAKER) (test code = 430) 22 % MONOCYTES RELATIVE PERCENT (BEAKER) (test code = 431) 10 % EOSINOPHILS RELATIVE PERCENT (BEAKER) (test code = 432) 3 % BASOPHILS RELATIVE PERCENT (BEAKER) (test code = 437) 0 % NEUTROPHILS ABSOLUTE COUNT (BEAKER) (test code = 670) 5.93 K/ L 1.56-6.13 LYMPHOCYTES ABSOLUTE COUNT (BEAKER) (test code = 414) 1.98 K/ L 1.18-3.74 MONOCYTES ABSOLUTE COUNT (BE RHETT) (test code = 415) 0.90 K/ L 0.24-0.36 H EOSINOPHILS ABSOLUTE COUNT (BEAKER) (test code = 416) 0.29 K/ L 0.04-0.36 BASOPHILS ABSOLUTE COUNT (BE RHETT) (test code = 417) 0.03 K/ L 0.01-0.08 IMMATURE GRANULOCYTES-RELATI VE PERCENT (BEAKER) (test code = 2801) 0.40 % 0.00-1.00 BASIC METABOLIC [id number] 04:04:01* Test Item Value Reference Range Interpretation Comme nts SODIUM (BEAKER) (test code = 381) 138 meq/L 136-145 POTASSIUM (BEAKER) (test code = 379) 3.7 meq/L 3.4-5.1 CHLORIDE (BEAKER) (test code = 382) 110 meq/L 98-107 H CO2 (BEAKER) (test code = 355) 21 meq/L 22-29 L BLOOD UREA NITROGEN (BEAKER) (test code = 354) 9 mg/dL 10-20 L CREATININE (BEAKER) (test code = 358) 0.61 mg/dL 0.57-1.11 GLUCOSE RANDOM (BEAKER) (test code = 652) 141 mg/dL 70-105 H CALCIUM (BEAKER) (test code = 697) 7.8 mg/dL 8.4-10.2 L EGFR (BEAKER) (test code = 1092) 86 mL/min/1.73 sq m Interpretation of eG FR values Stage Description Result G1 Normal or high >=90 G2 Mildly decreased 60-89 G3a Mildly to moderately 45-59 G3b Moderately to severely 30-44 G4 Severly decreased 15-29 G5 Kidney failure <15Reported eGFR is based on the CKD-EPI 2020 equation that does not use a race coefficientEstimated GFR is not as accurate as Creatinine Clearance in predicting glomerular filtration rate. Estimated GFR is not applicable for dialysis patients [id number] 04:00:08* Test Item Value Reference Range Interpretation Comme nts MAGNESIUM (BEAKER) (test cod e = 627) 1.8 mg/dL 1.6-2.6 [id number] 04:00:08* Test Item Value Reference Range Interpretation Comme nts PHOSPHORUS (BEAKER) (test co de = 604) 2.2 mg/dL 2.3-4.7 L CBC W/PLT COUNT & AUTO [id number] 03:44:35* Test Item Value Reference Range Interpretation Comme nts WHITE BLOOD CELL COUNT (BEAK ER) (test code = 775) 9.6 K/ L 3.5-10.5 RED BLOOD CELL COUNT (BEAKER ) (test code = 761) 3.22 M/ L 3.93-5.22 L HEMOGLOBIN (BEAKER) (test co de = 410) 9.8 GM/DL 11.2-15.7 L HEMATOCRIT (BEAKER) (test co de = 411) 30.5 % 34.1-44.9 L MEAN CORPUSCULAR VOLUME (JONATHAN KER) (test code = 753) 95 fL 79-95 MEAN CORPUSCULAR HEMOGLOBIN (BEAKER) (test code = 751) 30.4 pg 25.6-32.2 MEAN CORPUSCULAR HEMOGLOBIN CONC (BEAKER) (test code = 752) 32.1 GM/DL 32.2-35.5 L RED CELL DISTRIBUTION WIDTH (BEAKER) (test code = 412) 14.1 % 11.7-14.4 PLATELET COUNT (BEAKER) (carolyn t code = 756) 260 K/CU MM 150-450 MEAN PLATELET VOLUME (BEAKER ) (test code = 754) 8.9 fL 9.4-12.3 L NUCLEATED RED BLOOD CELLS (BEAKER) (test code = 413) 0 /100 WBC 0-0 NEUTROPHILS RELATIVE PERCENT (BEAKER) (test code = 429) 70 % LYMPHOCYTES RELATIVE PERCENT (BEAKER) (test code = 430) 18 % MONOCYTES RELATIVE PERCENT (BEAKER) (test code = 431) 9 % EOSINOPHILS RELATIVE PERCENT (BEAKER) (test code = 432) 3 % BASOPHILS RELATIVE PERCENT (BEAKER) (test code = 437) 0 % NEUTROPHILS ABSOLUTE COUNT (BEAKER) (test code = 670) 6.70 K/ L 1.56-6.13 H LYMPHOCYTES ABSOLUTE COUNT (BEAKER) (test code = 414) 1.67 K/ L 1.18-3.74 MONOCYTES ABSOLUTE COUNT (BE RHETT) (test code = 415) 0.83 K/ L 0.24-0.36 H EOSINOPHILS ABSOLUTE COUNT (BEAKER) (test code = 416) 0.27 K/ L 0.04-0.36 BASOPHILS ABSOLUTE COUNT (BE RHETT) (test code = 417) 0.04 K/ L 0.01-0.08 IMMATURE GRANULOCYTES-RELATI VE PERCENT (BEAKER) (test code = 2801) 0.40 % 0.00-1.00 BASIC METABOLIC [id number] 05:11:47* Test Item Value Reference Range Interpretation Comme nts SODIUM (BEAKER) (test code = 381) 136 meq/L 136-145 POTASSIUM (BEAKER) (test code = 379) 4.1 meq/L 3.4-5.1 CHLORIDE (BEAKER) (test code = 382) 111 meq/L 98-107 H CO2 (BEAKER) (test code = 355) 21 meq/L 22-29 L BLOOD UREA NITROGEN (BEAKER) (test code = 354) 13 mg/dL 10-20 CREATININE (BEAKER) (test code = 358) 0.65 mg/dL 0.57-1.11 GLUCOSE RANDOM (BEAKER) (test code = 652) 86 mg/dL 70-105 CALCIUM (BEAKER) (test code = 697) 7.9 mg/dL 8.4-10.2 L EGFR (BEAKER) (test code = 1092) 85 mL/min/1.73 sq m Interpretation of eG FR values Stage Description Result G1 Normal or high >=90 G2 Mildly decreased 60-89 G3a Mildly to moderately 45-59 G3b Moderately to severely 30-44 G4 Severly decreased 15-29 G5 Kidney failure <15Reported eGFR is based on the CKD-EPI 2020 equation that does not use a race coefficientEstimated GFR is not as accurate as Creatinine Clearance in predicting glomerular filtration rate. Estimated GFR is not applicable for dialysis patients HEPATIC FUNCTION [id number] 05:11:41* Test Item Value Reference Range Interpretation Comme nts TOTAL PROTEIN (BEAKER) (test code = 770) 4.8 gm/dL 6.4-8.3 L ALBUMIN (BEAKER) (test code = 1145) 2.3 g/dL 3.5-5.0 L BILIRUBIN TOTAL (BEAKER) (te st code = 377) 0.3 mg/dL 0.2-1.2 BILIRUBIN DIRECT (BEAKER) (t est code = 706) 0.1 mg/dL 0.1-0.5 ALKALINE PHOSPHATASE (BEAKER ) (test code = 346) 49 U/L 40-150 AST (SGOT) (BEAKER) (test co de = 353) 13 U/L 5-34 ALT (SGPT) (BEAKER) (test co de = 347) 5 U/L <55 [id number] 05:08:15* Test Item Value Reference Range Interpretation Comme nts MAGNESIUM (BEAKER) (test cod e = 627) 1.9 mg/dL 1.6-2.6 [id number] 05:08:15* Test Item Value Reference Range Interpretation Comme nts PHOSPHORUS (BEAKER) (test co de = 604) 2.3 mg/dL 2.3-4.7 PROTHROMBIN TIME/[id number] 04:54:09* Test Item Value Reference Range Interpretation Comme nts PROTIME (BEAKER) (test code = 759) 16.4 seconds 11.9-14.2 H INR (BEAKER) (test code = 370) 1.29 <=5.90 RECOMMENDED COUMADIN/WARFARIN INR THERAPY RANGESSTANDARD DOSE: 2.0 - 3.0 Includes: PROPHYLAXIS for venous thrombosis, systemic embolization; TREATMENT for venous thrombosis and/or pulmonary embolus.HIGH RISK: Target INR is 2.5-3.5 for patients with mechanical heart valves.CBC W/PLT COUNT & AUTO DIFFERENTIAL 2024-08-24 04:46:33* Test Item Value Reference Range Interpretation Comme nts WHITE BLOOD CELL COUNT (BEAK ER) (test code = 775) 12.5 K/ L 3.5-10.5 H RED BLOOD CELL COUNT (BEAKER ) (test code = 761) 3.04 M/ L 3.93-5.22 L HEMOGLOBIN (BEAKER) (test co de = 410) 9.3 GM/DL 11.2-15.7 L HEMATOCRIT (BEAKER) (test co de = 411) 29.0 % 34.1-44.9 L MEAN CORPUSCULAR VOLUME (JONATHAN KER) (test code = 753) 95 fL 79-95 MEAN CORPUSCULAR HEMOGLOBIN (BEAKER) (test code = 751) 30.6 pg 25.6-32.2 MEAN CORPUSCULAR HEMOGLOBIN CONC (BEAKER) (test code = 752) 32.1 GM/DL 32.2-35.5 L RED CELL DISTRIBUTION WIDTH (BEAKER) (test code = 412) 14.3 % 11.7-14.4 PLATELET COUNT (BEAKER) (carolyn t code = 756) 231 K/CU MM 150-450 MEAN PLATELET VOLUME (BEAKER ) (test code = 754) 9.0 fL 9.4-12.3 L NUCLEATED RED BLOOD CELLS (BEAKER) (test code = 413) 0 /100 WBC 0-0 NEUTROPHILS RELATIVE PERCENT (BEAKER) (test code = 429) 79 % LYMPHOCYTES RELATIVE PERCENT (BEAKER) (test code = 430) 13 % MONOCYTES RELATIVE PERCENT (BEAKER) (test code = 431) 6 % EOSINOPHILS RELATIVE PERCENT (BEAKER) (test code = 432) 1 % BASOPHILS RELATIVE PERCENT (BEAKER) (test code = 437) 0 % NEUTROPHILS ABSOLUTE COUNT (BEAKER) (test code = 670) 9.78 K/ L 1.56-6.13 H LYMPHOCYTES ABSOLUTE COUNT (BEAKER) (test code = 414) 1.63 K/ L 1.18-3.74 MONOCYTES ABSOLUTE COUNT (BE RHETT) (test code = 415) 0.80 K/ L 0.24-0.36 H EOSINOPHILS ABSOLUTE COUNT (BEAKER) (test code = 416) 0.13 K/ L 0.04-0.36 BASOPHILS ABSOLUTE COUNT (BE RHETT) (test code = 417) 0.03 K/ L 0.01-0.08 IMMATURE GRANULOCYTES-RELATI VE PERCENT (BEAKER) (test code = 2801) 0.70 % 0.00-1.00 LU, [id number] 16:07:00Reason for exam:->Bile Duct Stone [facility] : 1935 Sex: FAn imaging unit was utilized for this procedure. No radiologist interpretation was requested. Refer to theEMR for findings. Refer to PACS for any patient radiation dose information.[id number] 21:38:22* Test Item Value Reference Range Interpretation Comme nts RADRPT (test code = RADRPT) PROCEDURE INFORMATION: Exam: US Abdomen, Limited; Right Upper Quadrant Exam date and [...] cholecystitis. Vera Mae MD On 07/03/2022 16:36:54; [id number] [id number] 20:19:00* Test Item Value Reference Range Interpretation Comme nts Glucose Lvl (test code = Glucose Lvl) 104 70-99 BUN (test code = BUN) 32 7-22 Creatinine Lvl (test code = Creatinine Lvl) 0.92 0.50-1.40 Sodium Lvl (test code = Sodium Lvl) 139 135-145 Potassium Lvl (test code = P otassium Lvl) 4.7 3.5-5.1 Chloride Lvl (test code = Chloride Lvl) 108 95-109 CO2 (test code = CO2) 26 24-32 Calcium Lvl (test code = Calcium Lvl) 9.1 8.5-10.5 Total Protein (test code = T otal Protein) 7.2 6.4-8.4 Albumin Lvl (test code = Albumin Lvl) 3.7 3.5-5.0 ALT (test code = ALT) 14 <=65 AST (test code = AST) 14 <=37 Alk Phos (test code = Alk Phos) 71 39-136 Bili Total (test code = Bili Total) 0.3 0.2-1.3 AGAP (test code = AGAP) 9.7 10.0-20.0 B/C Ratio (test code = B/C Ratio) 35 1 6-25 Globulin (test code = Globulin) 3.5 2.7-4.2 A/G Ratio (test code = A/G Ratio) 1.1 1 0.7-1.6 eGFR (test code = eGFR) 60 Lipase Lvl (test code = Lipase Lvl) 77 73-393 [id number] 20:19:00* Test Item Value Reference Range Interpretation Comme nts WBC (test code = WBC) 6.4 3.7-10.4 RBC (test code = RBC) 3.55 4.20-5.40 Hgb (test code = Hgb) 11.1 12.0-16.0 Hct (test code = Hct) 33.7 36.0-48.0 MCV (test code = MCV) 95.1 80.0-98.0 MCH (test code = MCH) 31.4 pg 27.0-31.0 MCHC (test code = MCHC) 33.0 32.0-36.0 RDW (test code = RDW) 12.6 11.5-14.5 Platelet (test code = Platelet) 252 133-450 MPV (test code = MPV) 7.1 7.4-10.4 Segs (test code = Segs) 56.1 45.0-75.0 Lymphocytes (test code = Lymphocytes) 32.0 20.0-40.0 Monocytes (test code = Monocytes) 8.1 2.0-12.0 Eosinophils (test code = Eosinophils) 3.0 <=4.0 Basophils (test code = Basophils) 0.8 <=1.0 Neutrophils # (test code = Neutrophils #) 3.6 1.5-8.1 Lymphocytes # (test code = Lymphocytes #) 2.1 1.0-5.5 Monocytes # (test code = Monocytes #) 0.5 <=0.8 Eosinophils # (test code = Eosinophils #) 0.2 <=0.5 Basophils # (test code = Basophils #) 0.1 <=0.2 [facility] COVID [id number] 23:44:30COVID DMT InterpretationInterpretation/Recommendations:Molecular NAAT Tests for Active [...] for IgM and IgG antibodies approximately 3 weeksafter illness onset will likely indicate if the patient has produced antibodies to the SARS-CoV-2 virus. However, some patients may take longer to develop detectable antibodies, while others infectedwith SARS-CoV-2 may never develop antibodies, particularly those who have had mild or asymptomatic illness. Of note, if the patient has been vaccinated earlier than 1-2 weeks prior to antibody testing, any positive SARS-CoV-2 IgG antibody result is likely due to vaccination. The specific duration and strength of immunity from SARS-CoV-2 IgG antibodies is highly variable between individuals and isdependent on a variety of factors, including infection vs. vaccination response, initial infection severity, the strength of the patient's own immune system, and the variants to which the patient hasbeen exposed. ? Interpretation Result Comments:These interpretation comments are based upon all COVID-19 testing the patient has had at [facility], including molecular NAAT testing (more commonly known as PCR testing and Rapid ID Now testing) and antibody testing. It does not take into account any testing that a patient has had out side of the [facility] medical record. [facility] LABORATORY SERVICESCOVID XijwhieGTCG-[id number]-8 Rapid ID NOW (no units) ? ? Date ? Value ? 04/15/2021 ? Positive (A) ? ? ? 03/01/2020 ? Not Detected ? [facility] SERVICESUnCH[facility] (NA, K, CL, CO2, GLUCOSE, BUN, CREATININE, CA)2021-04-16 12:21:50* Test Item Value Reference Range Interpretation Comme nts NA (test code = 9193215508) 139 mmol/L 135-145 K (test code = 8652543418) 4.3 mmol/L 3.5-5.0 CL (test code = 3009496582) 109 mmol/L 98-108 H CO2 TOTAL (test code = 4324802515) 26 mmol/L 23-31 AGAP (test code = 9615293184) 2-16 BUN (test code = 4028328873) 15 mg/dL 7-23 GLUCOSE (test code = 1526785515) 74 mg/dL 70-110 CREATININE (test code = 5563383526) 0.59 mg/dL 0.50-1.04 CALCIUM (test code = 6745631830) 7.4 mg/dL 8.6-10.6 L eGFR (test code = 6861771130) mL/min/1.73m2 DREAD (test code = DREAD) Association [...] imaging tests). Lab Interpretation (test code = 85120-5) [facility]normal [facility] (A1C)2021-04-16 11:45:40* Test Item Value Reference Range Interpretation Comme nts HGB A1C (test code = 4548-4) 5.8 % 4.0-5.7 H DREAD (test code = DREAD) Reference RangesNormal: <5.7%Prediabetes: 5.7 - 6.4%Diabetes: > 6.5% Lab Interpretation (test code = 34878-6) Abnormal [facility] HospitalCT [facility] PULMON[facility] [id number] 04:37:45No acute pulmonary embolism identified. Apparent filling defect in theright lower lobe segmental pulmonary artery is suspected to representimmediately adjacent soft tissue, possibly a lymph node. Left shoulder reverse arthroplasty changes. The most medial scapular screwappears to erode into a left lateral upper rib, immediately subjacent towhich is soft tissue/pleural thickening and impression upon the adjacentlung. No pneumothorax identified. Additionally, though limited by severebeam hardening artifact, there appears to be expansile and osteolyticchanges in the scapula around the construct.This could be related toadverse level tissue reaction/particle disease. Incidental finding of acute, minimally displaced posterior right rib 9fracture. Partially visualized dilated extrahepatic biliary duct. If there is aclinical concern for biliary obstruction, further evaluation with dedicatedCT a bdomen pelvis or MRCP is recommended. Dilated main pulmonary trunk, which can be seen with increased pulmonarypressure. Preliminary findings regarding possible right lower lobe segmentalpulmonary embolism were discussed with Dr. Kendall at 6:10 PM on 04/15/2021. Preliminary Report Dictated by Resident: Wayne Hull MD., have reviewed this study and agree with the abovereport.PROCEDURE: CT CHEST WITH CONTRAST- CHEST PE PROTOCOL CLINICAL INDICATION: PE suspected, intermediate prob, positive D-dimer ? Comparison: ?None TECHNIQUE: Volumetric helical CT angiogram was performed ofthe chest (lungapices to bases) with IV contrast. Images were reconstructed at 1.25 mmslice thickness. Corresponding axial, sagittal and coronal MIP images wereperformed. Axial MIPs and coronal and sagittal MPR images were generatedand reviewed.. FINDINGS: HEART AND GREAT VESSELS: The opacificationof the pulmonary vasculature isappropriate. Small nonocclusive, eccentrically positioned filling defect isseen in the right lower lobe segmental branch (7:56, 11:74). The pulmonarytrunk is mildly dilated, measuring 3.5 cm in diameter. The thoracic aorta is normal in caliber. Atherosclerotic calcified plaquesaffect the aorta and the ostia of the great vessels. Borderline global cardiomegaly. No per icardial abnormalities areidentified. The RV to LV is normal. MEDIASTINUM AND LOWER NECK: The evaluation of the upper mediastinum islimited due to extensive streak artifact from left shoulder arthroplastyhardware. No central airway lesions are detected. The esophagus is withinnormal limits. The included thyroid gland appears normal. LYMPH NODES: No evidence of intrathoracic lymphadenopathy. LUNGSAND PLEURA: Mild dependent atelectasis in the posterior [...] screw appears to erode into a leftlateral upperrib (7:29). Severe right shoulder osteoarthrosis. Rightposterior rib 9 minimally displaced acute fracture. [facility], Radiant Results Inft User - 04/15/2021 11:38 PM CDT PROCEDURE: CT CHEST WITH CONTRAST- CHEST PE PROTOCOLCLINICAL INDICATION: PE suspected, intermediate prob, positive D-dimer Comparison: NoneTECHNIQUE: Volumetric helical CT angiogram was performed of the chest (lungapices to bases) with IV contrast. Images were reconstructedat 1.25 mmslice thickness. Corresponding axial, sagittal and coronal MIP images wereperformed. Axial MIPs and coronal and sagittal MPR images were generatedand reviewed..FINDINGS:HEART AND GREAT VESSELS: The opacification of the pulmonary vasculature isappropriate. Small nonocclusive, eccentricallypositioned filling defect isseen in the right lower lobe segmental branch (7:56, 11:74). The pulmonarytrunk is mildly dilated, measuring 3.5 cm in diameter.The thoracic aorta is normal in caliber. Atherosclerotic calcified plaquesaffect the aorta and the ostia of the great vessels.Borderline globalcardiomegaly. No pericardial abnormalities areidentified. The RV to LV is normal. MEDIASTINUM AND LOWER NECK: The evaluation of the upper mediastinum islimited due to extensive streak artifact from left shoulder arthroplastyhardware. No central airway lesions are detected. The esophagus is withinnormal limits. The included thyroid gland appears normal.LYMPH NODES: No evidence of intrathoracic lymphadenopathy.LUNGS AND PLEURA: Mild dependent atelectasis in the posterior lower lungs.No suspiciousnodules. No pleural abnormality detected.VISUALIZED UPPER ABDOMEN: A 13 mm exophytic hypoattenuating lesion at theleft superior renal pole with simple fluid attenuation, likely a cyst. Thecommon ductmeasures 11 mm in diameter, mildly dilated for patient's age.OSSEOUS STRUCTURES AND SOFT TISSUES: Left shoulder reverse arthroplastychanges. The most medial acetabular screw appears to erode into a leftlateral upper rib (7:29). Severe right shoulder osteoarthrosis. Rightposterior rib 9 minimally displaced acute fracture.IMPRESSIONNo acute pulmonary embolism identified. Apparent filling defect in theright lower lobe segmental pulmonary artery is suspected to representimmediately adjacent soft tissue, possibly a lymph node.Left shoulder reverse arthroplasty changes. The most medial scapular screwappears to erode into a left lateral upper rib, immediately subjacent towhich is soft tissue/pleural thickening and impression upon the adjacentlung. No pneumothorax identified. Additionally, thoughlimited by severebeam hardening artifact, there appears to be expansile and osteolyticchanges in the scapula around the construct. This could be related toadverse level tissue reaction/particle diseas e.Incidental finding of acute, minimally displaced posterior right rib 9fracture.Partially visualized dilated extrahepatic biliary duct. If there is aclinical concern for biliary obstruction, furtherevaluation with dedicatedCT abdomen pelvis or MRCP is recommended.Dilated main pulmonary trunk, which can be seen with increased pulmonarypressure.Preliminary findings regarding possible right lower lobe segmentalpulmonary embolism were discussed with Dr. Kendall at 6:10 PM on 04/15/2021.Preliminary Report Dictated by Resident: Wayne Fox MD., have reviewed this study and agree with the abovereport. [facility]ADC,CLC OR L[facility] ONLY - INFLUENZA A & B DIRECT [id number] 23:53:22* Test Item Value Reference Range Interpretation Comme nts Influenza A (test code = 18662-5) Negative Negative Influenza B (test code = 37060-2) Negative Negative Lab Interpretation (test cod e = 26251-6) Normal [facility] HospitalaPTT2021-08-02 23:33:43* Test Item Value Reference Range Interpretation Comme nts APTT Patient (test code = 3173-2) See_Comment [Automated message] The system which generated this result transmitted reference range: 23 - 38 Seconds. The reference range was not used to interpret this result as normal/abnormal. DREAD (test code = DREAD) The [facility] patient population mean normal value for aPTT is 30 seconds. Lab Interpretation (test code = 14531-8) Normal [facility] HospitalProthrombin Time (PT) / [id number] 23:31:24 * Test Item Value Reference Range Interpretation Comme [facility] PROTIME PATIENT (test code = 5964-2) See_Comment [Automated Qlikaa ge] The system which generated this result transmitted reference range: 12.0 - 14.7 Seconds. The reference range was not used to interpret this result as normal/abnormal. INR (test code = 6301-6) Normal INR <1.1; Warfarin Therapeutic range 2.0 to 3.0 or 2.5 to 3.5, depending upon the indications. Lab Interpretation (test code = 69904-8) Normal [facility] HospitalN-TERMINAL [id number] 21:45:39* Test Item Value Reference Range Interpretation Comme [facility] NT-proBNP (test code = 2046429993) 1030 pg/mL See_Comment H [Automated message] The system which generated this result transmitted reference range: <=450. The reference range was not used to interpret this result as normal/abnormal. DREAD (test code = DREAD) Biotin has been reported to cause a negative bias, interpret results relative to patient's use of biotin. Lab Interpretation (test code = 14327-0) Abnormal [facility] HospitalCOMP. METABOLIC PANEL (15916)2021-04-15 21:40:38* Test Item Value Reference Range Interpretation Comme [facility] NA (test code = 1001806921) 140 mmol/L 135-145 K (test code = 9263971239) 4.4 mmol/L 3.5-5.0 CL (test code = 9795085653) 107 mmol/L 98-108 CO2 TOTAL (test code = 1989584975) 25 mmol/L 23-31 AGAP (test code = 2812641951) 2-16 BUN (test code = 4615554322) 25 mg/dL 7-23 H GLUCOSE (test code = 1039510635) 80 mg/dL 70-110 CREATININE (test code = 4530652031) 0.79 mg/dL 0.50-1.04 TOTAL BILI (test code = 5052207974) 0.4 mg/dL 0.1-1.1 CALCIUM (test code = 4746922680) 8.6 mg/dL 8.6-10.6 T PROTEIN (test code = 8290201461) 6.8 g/dL 6.3-8.2 ALBUMIN (test code = 3564176317) 3.7 g/dL 3.5-5.0 ALK PHOS (test code = 7796101082) 85 U/L 34-122 ALTv (test code = 1742-6) 10 U/L 5-35 AST(SGOT) (test code = 4871012175) 30 U/L 13-40 eGFR (test code = 0960228047) mL/min/1.73m2 DREAD (test code = DREAD) Association [...] imaging tests). Lab Interpretation (test code = 37346-5) Abnormal [facility] HospitalMAGNESIUM2021-08-02 21:40:38* Test Item Value Reference Range Interpretation Comme nts MAGNESIUM (test code = 0697646974) 2.1 mg/dL 1.7-2.4 Lab Interpretation (test cod e = 85835-4) Normal [facility] HospitalD-[id number] 21:28:56* Test Item Value Reference Range Interpretation Comments D-DIMER (test code = 2376347189) See_Comment H [Automated message] The system which generated this result transmitted reference range: <0.41 ?g/mL (FEU). The reference range was not used to interpret this result as normal/abnormal. DREAD (test code = DREAD) This test may be used in conjunction with a clinical pretest [...] context, in forming a diagnosis. Lab Interpretation (test code = 30640-7) Abnormal [facility] HospitalCOVID[facility] (ID NOW RAPID TESTING)2021-04-15 21:28:35* Test Item Value Reference Range Interpretation Comme nts SARS-CoV-2 Rapid ID NOW (test code = 28786-6) Positive Not Detected A DREAD (test code = DREAD) ID NOW COVID-19 As say is an isothermal nucleic acid amplification test intended for the qualitative detection of nucleic acid from SARS-CoV-2 viral RNA in nasopharyngeal (ASSOCIATE MEDIA DIRECTOR) specimens. It is used under Emergency Use [...] patient testing if clinically indicated. Lab Interpretation (test code = 89951-8) Abnormal [facility] WITH [id number] 21:21:14* Test Item Value Reference Range Interpretation Comme nts WBC (test code = 6690-2) See_Comment L [Automated Qlikaa ge] The system which generated this result transmitted reference range: 4.30 - 11.10 10*3/?L. The reference range was not used to interpret this result as normal/abnormal. RBC (test code = 789-8) See_Comment L [Automated messa ge] The system which generated this result transmitted reference range: 3.93 - 5.25 10*6/?L. The reference range was not used to interpret this result as normal/abnormal. HGB (test code = 718-7) 9.7 g/dL 11.6-15.0 L HCT (test code = 4544-3) 30.3 % 35.7-45.2 L MCV (test code = 787-2) 96.5 fL 80.6-95.5 H MCH (test code = 785-6) 30.9 pg 25.9-32.8 MCHC (test code = 786-4) 32.0 g/dL 31.6-35.1 RDW-SD (test code = 73583-2) 48.7 fL 39.0-49.9 RDW-CV (test code = 788-0) 13.6 % 12.0-15.5 PLT (test code = 777-3) See_Comment L [Automated messa ge] The system which generated this result transmitted reference range: 166 - 358 10*3/?L. The reference range was not used to interpret this result as normal/abnormal. MPV (test code = 59126-1) 10.0 fL 9.5-12.9 NRBC/100 WBC (test code = 4583336454) See_Comment [Automated [employer] ssage] The system which generated this result transmitted reference range: 0.0 - 10.0 /100 WBCs. The reference range was not used to interpret this result as normal/abnormal. NRBC x10^3 (test code = 9874960950) <0.01 See_Comment [Automated messa ge] The system which generated this result transmitted reference range: 10*3/?L. The reference range was not used to interpret this result as normal/abnormal. GRAN MAT (NEUT) % (test code = 770-8) 58.7 % IMM GRAN % (test code = 4720664303) 0.30 % LYMPH % (test code = 736-9) 22.9 % MONO % (test code = 5905-5) 15.2 % EOS % (test code = 713-8) 2.6 % BASO % (test code = 706-2) 0.3 % GRAN MAT x10^3(ANC) (test code = 6583419133) 2.29 10*3/uL 1.88-7.09 IMM GRAN x10^3 (test code = 3082945643) <0.03 0.00-0.06 LYMPH x10^3 (test code = 731-0) 0.89 10*3/uL 1.32-3.29 L MONO x10^3 (test code = 742-7) 0.59 10*3/uL 0.33-0.92 EOS x10^3 (test code = 711-2) 0.10 10*3/uL 0.03-0.39 BASO x10^3 (test code = 704-7) <0.03 0.01-0.07 Lab Interpretation (test code = 45957-8) [facility] [id number] 21:20:48* Test Item Value Reference Range Interpretation Comme nts LACTIC ACID (test code = 5121157306) 1.13 mmol/L 0.50-2.20 Lab Interpretation (test cod e = 61666-6) [facility] NOW RAPID TESTING)2020-03-01 23:27:00* Test Item Value Reference Range Interpretation Comme nts SARS-CoV-2 Rapid ID NOW (test code = 34485-5) Not Detected Not Detected DREAD (test code = DREAD) ID NOW COVID-19 As say is an isothermal nucleic acid amplification test intended for the qualitative detection of nucleic acid from SARS-CoV-2 viral RNA in nasopharyngeal (ASSOCIATE MEDIA DIRECTOR) specimens. It is used under Emergency Use [...] patient testing if clinically indicated. Lab Interpretation (test code = 70865-3) Normal [facility] HospitalDomingon [id number] 23:21:00* Test Item Value Reference Range Interpretation Comme nts TROPONIN I (test code = 1136729191) <0.012 See_Comment [Automated message] The system which generated this result transmitted reference range: <=0.034 ng/mL. The reference range was not used to interpret this result as normal/abnormal. DREAD (test code = DREAD) Equal or Less than 0.034 ng/ml---Normal ?Note: Cardiac troponin begins to [...] patient's use of biotin. ? Lab Interpretation (test code = 85821-2) [facility] [id number] 23:18:00* Test Item Value Reference Range Interpretation Comme nts NT-proBNP (test code = 5337216155) 407 pg/mL See_Comment [Automated message] The system which generated this result transmitted reference range: <=450. The reference range was not used to interpret this result as normal/abnormal. DREAD (test code = DREAD) Biotin has been reported to cause a negative bias, interpret results relative to patient's use of biotin. Lab Interpretation (test code = 76132-4) [facility] (NA, K, CL, CO2, GLUCOSE, BUN, CREATININE, CA)2020-03-01 23:10:00* Test Item Value Reference Range Interpretation Comme nts NA (test code = 0448396474) 140 mmol/L 135-145 K (test code = 4778042973) 4.5 mmol/L 3.5-5 CL (test code = 8031107926) 108 mmol/L 98-108 CO2 TOTAL (test code = 2606537351) 22 mmol/L 23-31 L AGAP (test code = 5751951943) 2-16 BUN (test code = 2694608333) 18 mg/dL 7-23 GLUCOSE (test code = 1598651979) 104 mg/dL 70-110 CREATININE (test code = 7383411022) 0.75 mg/dL 0.5-1.04 CALCIUM (test code = 5658951656) 9.2 mg/dL 8.6-10.6 eGFR Calculation (Non-) (test code = 6920202150) mL/min/1.73m2 eGFR Calculation () (test code = 4579387952) mL/min/1.73m2 DREAD (test code = DREAD) Association [...] imaging tests). Lab Interpretation (test code = 63910-1) [facility]normal [facility] (ALB, T.PRO, BILI T, BU/BC, ALT, AST, ALK PHOS)2020-03-01 23:10:00* Test Item Value Reference Range Interpretation Comme nts TOTAL BILI (test code = 1572567848) 0.1 mg/dL 0.1-1.1 BILI UNCON (test code = 6768004649) 0.4 mg/dL 0.1-1.1 BILI CONJ (test code = 4220563021) 0.0 mg/dL 0-0.3 T PROTEIN (test code = 5262659518) 6.8 g/dL 6.3-8.2 ALBUMIN (test code = 5975607811) 3.9 g/dL 3.5-5 ALK PHOS (test code = 2669154128) 89 U/L 34-122 ALTv (test code = 1742-6) 10 U/L 5-35 AST(SGOT) (test code = 7382706874) 18 U/L 13-40 Lab Interpretation (test cod e = 67065-6) Normal [facility] HospitalCBC WITH [id number] 23:01:00* Test Item Value Reference Range Interpretation Comme nts WBC (test code = 6690-2) See_Comment [Automated messa ge] The system which generated this result transmitted reference range: 4.30 - 11.10 10*3/?L. The reference range was not used to interpret this result as normal/abnormal. RBC (test code = 789-8) See_Comment L [Automated messa ge] The system which generated this result transmitted reference range: 3.93 - 5.25 10*6/?L. The reference range was not used to interpret this result as normal/abnormal. HGB (test code = 718-7) 10.7 g/dL 11.6-15 L HCT (test code = 4544-3) 32.7 % 35.7-45.2 L MCV (test code = 787-2) 97.3 fL 80.6-95.5 H MCH (test code = 785-6) 31.8 pg 25.9-32.8 MCHC (test code = 786-4) 32.7 g/dL 31.6-35.1 RDW-SD (test code = 50811-5) 42.5 fL 39-49.9 RDW-CV (test code = 788-0) 12.0 % 12-15.5 PLT (test code = 777-3) See_Comment [Automated messa ge] The system which generated this result transmitted reference range: 166 - 358 10*3/?L. The reference range was not used to interpret this result as normal/abnormal. MPV (test code = 32444-7) 9.4 fL 9.5-12.9 L NRBC/100 WBC (test code = 4043121294) See_Comment [Automated [employer] ssage] The system which generated this result transmitted reference range: 0.0 - 10.0 /100 WBCs. The reference range was not used to interpret this result as normal/abnormal. NRBC x10^3 (test code = 5861096786) <0.01 See_Comment [Automated messa ge] The system which generated this result transmitted reference range: 10*3/?L. The reference range was not used to interpret this result as normal/abnormal. GRAN MAT (NEUT) % (test code = 770-8) 61.9 % IMM GRAN % (test code = 8360235594) 0.40 % LYMPH % (test code = 736-9) 27.1 % MONO % (test code = 5905-5) 8.9 % EOS % (test code = 713-8) 1.3 % BASO % (test code = 706-2) 0.4 % GRAN MAT x10^3(ANC) (test code = 9610446421) 5.16 10*3/uL 1.88-7.09 IMM GRAN x10^3 (test code = 2047980742) 0.03 10*3/uL 0-0.06 LYMPH x10^3 (test code = 731-0) 2.26 10*3/uL 1.32-3.29 MONO x10^3 (test code = 742-7) 0.74 10*3/uL 0.33-0.92 EOS x10^3 (test code = 711-2) 0.11 10*3/uL 0.03-0.39 BASO x10^3 (test code = 704-7) 0.03 10*3/uL 0.01-0.07 Lab Interpretation (test code = 52443-3) [facility]normal [facility] 11:29:00* Test Item Value Reference Range Interpretation Comme nts Hct (test code = Hct) 25.5 36.0-48.0 Hgb (test code = Hgb) 8.6 12.0-16.0 [facility]CHE[facility] [id number] 11:44:00* Test Item Value Reference Range Interpretation Comme nts Vitamin D, 25-OH, Total (carolyn t code = Vitamin D, 25-OH, Total) 12.4 30.0-100.0 [facility] CenterPARATHYROID [id number] 11:44:00* Test Item Value Reference Range Interpretation Comme nts PTH Intact (test code = PTH Intact) 122.9 18.4-80.1 [facility]UgpluvyAZWOMYKQEFOT5617-06-77 11:44:00* Test Item Value Reference Range Interpretation Comme nts AGAP (test code = AGAP) 13.9 10.0-20.0 eGFR (test code = eGFR) 82 Chloride Lvl (test code = Chloride Lvl) 110 95-109 CO2 (test code = CO2) 24 24-32 Sodium Lvl (test code = Sodium Lvl) 144 135-145 Potassium Lvl (test code = P otassium Lvl) 3.9 3.5-5.1 BUN (test code = BUN) 20 7-22 Creatinine Lvl (test code = Creatinine Lvl) 0.68 0.50-1.40 Glucose Lvl (test code = Glucose Lvl) 151 70-99 Calcium Lvl (test code = Calcium Lvl) 7.9 8.5-10.5 [facility] CenterPdzyvbvTLXJMRGSUG4865-08-09 11:44:00* Test Item Value Reference Range Interpretation Comme nts MCV (test code = MCV) 93.8 80.0-98.0 MCH (test code = MCH) 31.7 pg 27.0-31.0 Hct (test code = Hct) 26.2 36.0-48.0 Platelet (test code = Platelet) 215 133-450 MCHC (test code = MCHC) 33.8 32.0-36.0 MPV (test code = MPV) 6.8 7.4-10.4 RDW (test code = RDW) 12.7 11.5-14.5 Hgb (test code = Hgb) 8.9 12.0-16.0 WBC (test code = WBC) 7.6 3.7-10.4 RBC (test code = RBC) 2.79 4.20-5.40 Monocytes # (test code = Monocytes #) 1.2 <=0.8 Lymphocytes # (test code = Lymphocytes #) 1.2 1.0-5.5 Monocytes (test code = Monocytes) 16.0 2.0-12.0 Lymphocytes (test code = Lymphocytes) 15.8 20.0-40.0 Segs (test code = Segs) 67.9 45.0-75.0 Segs-Bands # (test code = Se gs-Bands #) 5.1 1.5-8.1 Basophils (test code = Basophils) 0.3 <=1.0 [facility] BANK [id number] 09:21:00* Test Item Value Reference Range Interpretation Comme nts ABO/Rh (test code = ABO/Rh) O POS Antibody Scrn (test code = Antibody Scrn) Negative (02/04/18 4:21 AM) [facility] [id number] 09:06:59* Test Item Value Reference Range Interpretation Comme nts Lactic Acid Lvl (test code = Lactic Acid Lvl) 0.9 0.5-2.2 [facility] HospitalFhpdpxrGPYHCAEAVSVX8442-72-12 09:06:59* Test Item Value Reference Range Interpretation Comme nts AGAP (test code = AGAP) 11.9 10.0-20.0 eGFR (test code = eGFR) 83 Calcium Lvl (test code = Calcium Lvl) 8.1 8.5-10.5 CO2 (test code = CO2) 22 24-32 Sodium Lvl (test code = Sodium Lvl) 140 135-145 Creatinine Lvl (test code = Creatinine Lvl) 0.67 0.50-1.40 BUN (test code = BUN) 22 7-22 Glucose Lvl (test code = Glucose Lvl) 135 70-99 Chloride Lvl (test code = Chloride Lvl) 110 95-109 Potassium Lvl (test code = P otassium Lvl) 3.9 3.5-5.1 [facility] CenterUkkluvyCFQJNKFHUT7181-85-65 09:06:59* Test Item Value Reference Range Interpretation Comme nts PTT (test code = PTT) 24.7 s 22.9-35.8 INR (test code = INR) 1.01 1 0.85-1.17 PT (test code = PT) 13.3 s 12.0-14.7 Platelet (test code = Platelet) 232 133-450 MPV (test code = MPV) 7.1 7.4-10.4 Hct (test code = Hct) 32.2 36.0-48.0 RBC (test code = RBC) 3.42 4.20-5.40 Hgb (test code = Hgb) 10.8 12.0-16.0 WBC (test code = WBC) 8.5 3.7-10.4 MCHC (test code = MCHC) 33.5 32.0-36.0 RDW (test code = RDW) 13.0 11.5-14.5 MCV (test code = MCV) 94.1 80.0-98.0 MCH (test code = MCH) 31.5 pg 27.0-31.0 Eosinophils (test code = Eosinophils) 2.3 <=4.0 Lymphocytes # (test code = Lymphocytes #) 1.7 1.0-5.5 Segs-Bands # (test code = Se gs-Bands #) 5.5 1.5-8.1 Basophils (test code = Basophils) 0.8 <=1.0 Basophils # (test code = Basophils #) 0.1 <=0.2 Eosinophils # (test code = Eosinophils #) 0.2 <=0.5 Monocytes # (test code = Monocytes #) 1.1 <=0.8 Segs (test code = Segs) 64.6 45.0-75.0 Lymphocytes (test code = Lymphocytes) 19.7 20.0-40.0 Monocytes (test code = Monocytes) 12.6 2.0-12.0 [facility]NzvbwscTPCOCXCCVWGU6797-62-78 11:14:00* Test Item Value Reference Range Interpretation Comme [facility] AGAP (test code = AGAP) 11.7 10.0-20.0 eGFR (test code = eGFR) 99 CO2 (test code = CO2) 29 24-32 Chloride Lvl (test code = Chloride Lvl) 104 95-109 Potassium Lvl (test code = P otassium Lvl) 3.7 3.5-5.1 Sodium Lvl (test code = Sodium Lvl) 141 135-145 Creatinine Lvl (test code = Creatinine Lvl) 0.40 0.50-1.40 Calcium Lvl (test code = Calcium Lvl) 8.1 8.5-10.5 BUN (test code = BUN) 8 7-22 Glucose Lvl (test code = Glucose Lvl) 94 70-99 [facility] CampusJubluvvZHFSGOOSOJ5707-54-63 11:14:00* Test Item Value Reference Range Interpretation Comme [facility] RDW (test code = RDW) 16.6 11.5-14.5 MPV (test code = MPV) 7.2 7.4-10.4 Platelet (test code = Platelet) 299 133-450 MCH (test code = MCH) 29.8 pg 27.0-31.0 MCHC (test code = MCHC) 32.9 32.0-36.0 MCV (test code = MCV) 90.5 80.0-98.0 RBC (test code = RBC) 3.41 4.20-5.40 WBC (test code = WBC) 8.1 3.7-10.4 Hct (test code = Hct) 30.9 36.0-48.0 Hgb (test code = Hgb) 10.2 12.0-16.0 Basophils (test code = Basophils) 1.1 <=1.0 Segs-Bands # (test code = Se gs-Bands #) 5.4 1.5-8.1 Basophils # (test code = Basophils #) 0.1 <=0.2 Lymphocytes # (test code = Lymphocytes #) 1.2 1.0-5.5 Monocytes # (test code = Monocytes #) 0.8 <=0.8 Eosinophils # (test code = Eosinophils #) 0.6 <=0.5 Segs (test code = Segs) 66.7 45.0-75.0 Lymphocytes (test code = Lymphocytes) 15.1 20.0-40.0 Monocytes (test code = Monocytes) 9.7 2.0-12.0 Eosinophils (test code = Eosinophils) 7.4 <=4.0 [facility] CampusOwgyftuUFMJEKFKRV1995-92-98 02:47:00* Test Item Value Reference Range Interpretation Comme nts Hct (test code = Hct) 30.2 36.0-48.0 Hgb (test code = Hgb) 10.1 12.0-16.0 [facility] CampusNjmqdioEBTEQLSLNO2802-69-93 18:09:00* Test Item Value Reference Range Interpretation Comme nts Hgb (test code = Hgb) 9.4 12.0-16.0 Hct (test code = Hct) 27.9 36.0-48.0 [facility] CampusTbcycnxVSZIPFVMZG5490-36-94 10:49:00* Test Item Value Reference Range Interpretation Comme nts PT (test code = PT) 14.3 s 12.0-14.7 PTT (test code = PTT) 34.3 s 22.9-35.8 INR (test code = INR) 1.08 0.85-1.17 Eosinophils (test code = Eosinophils) 4.9 <=4.0 Monocytes (test code = Monocytes) 8.3 2.0-12.0 Basophils # (test code = Basophils #) 0.1 <=0.2 Lymphocytes # (test code = Lymphocytes #) 0.9 1.0-5.5 Monocytes # (test code = Monocytes #) 0.8 <=0.8 Basophils (test code = Basophils) 0.7 <=1.0 Segs-Bands # (test code = Se gs-Bands #) 7.0 1.5-8.1 Lymphocytes (test code = Lymphocytes) 9.9 20.0-40.0 Segs (test code = Segs) 76.2 45.0-75.0 Eosinophils # (test code = Eosinophils #) 0.5 <=0.5 WBC (test code = WBC) 9.2 3.7-10.4 MPV (test code = MPV) 7.5 7.4-10.4 MCV (test code = MCV) 90.5 80.0-98.0 MCH (test code = MCH) 30.0 pg 27.0-31.0 MCHC (test code = MCHC) 33.1 32.0-36.0 RBC (test code = RBC) 2.88 4.20-5.40 Platelet (test code = Platelet) 246 133-450 RDW (test code = RDW) 16.9 11.5-14.5 [facility] AND [id number] 23:46:00* Test Item Value Reference Range Interpretation Comme nts UA Urobilinogen (test code = UA Urobilinogen) no gt 0.1-1.0 Micro? (test code = Micro?) Performed *NA*(10/26/15 5:46 PM) UA RBC (test code = UA RBC) no gt <=2 UA Bacteria (test code = UA Bacteria) Occasional /HPF UA Bili (test code = UA Bili) Negative *NA*(10/26/15 5:46 PM) UA Protein (test code = UA Protein) Negative mg/dL UA Glucose (test code = UA Glucose) Negative mg/dL UA Ketones (test code = UA Ketones) Negative mg/dL UA WBC (test code = UA WBC) 1 <=5 UA Sq Epi (test code = UA Sq Epi) Occasional /LPF UA Leuk Est (test code = UA Leuk Est) Trace *ABN*(10/26/15 5:46 PM) UA Nitrite (test code = UA Nitrite) Negative (10/26/15 5:46 PM) UA Blood (test code = UA Blood) Negative (10/26/15 5:46 PM) UA Turbidity (test code = UA Turbidity) Clear (10/26/15 5:46 PM) UA Spec Grav (test code = UA Spec Grav) 1.006 UA pH (test code = UA pH) 6.0 5.0-8.0 UA Color (test code = UA Color) Light Yellow *NA*(10/26/15 5:46 PM) [facility] BANK [id number] 10:09:00* Test Item Value Reference Range Interpretation Comme nts ABO/Rh (test code = ABO/Rh) O POS Antibody Scrn (test code = Antibody Scrn) Negative (10/26/15 4:09 AM) [facility]CHE[facility] WERJM1306-14-98 10:09:00* Test Item Value Reference Range Interpretation Comme nts eGFR (test code = eGFR) 99 Calcium Lvl (test code = Calcium Lvl) 7.4 8.5-10.5 CO2 (test code = CO2) 30 24-32 Chloride Lvl (test code = Chloride Lvl) 103 95-109 Sodium Lvl (test code = Sodium Lvl) 141 135-145 Potassium Lvl (test code = P otassium Lvl) 3.6 3.5-5.1 BUN (test code = BUN) 13 7-22 Creatinine Lvl (test code = Creatinine Lvl) 0.40 0.50-1.40 Glucose Lvl (test code = Glucose Lvl) 124 70-99 AGAP (test code = AGAP) 11.6 10.0-20.0 Phosphorus (test code = Phosphorus) 2.4 2.5-4.5 Magnesium Lvl (test code = M agnesium Lvl) 1.9 1.8-2.4 [facility] CenterBztjhzyAIIIGKLFPI8170-40-50 10:09:00* Test Item Value Reference Range Interpretation Comme nts Basophils (test code = Basophils) 0.4 <=1.0 [Automated [employer] ge] The system which generated this result transmitted reference range: <=1.0. The reference range was not used to interpret this result as normal/abnormal. Segs-Bands # (test code = Segs-Bands #) 9.0 1.5-8.1 Monocytes (test code = Monocytes) 7.1 2.0-12.0 Lymphocytes (test code = Lymphocytes) 9.6 20.0-40.0 Lymphocytes # (test code = Lymphocytes #) 1.1 1.0-5.5 Eosinophils (test code = Eosinophils) 3.4 <=4.0 Eosinophils # (test code = Eosinophils #) 0.4 <=0.5 Basophils # (test code = Basophils #) 0.0 <=0.2 Monocytes # (test code = Monocytes #) 0.8 <=0.8 Segs (test code = Segs) 79.5 45.0-75.0 MCH (test code = MCH) 29.9 pg 27.0-31.0 RBC (test code = RBC) 2.93 4.20-5.40 MPV (test code = MPV) 7.4 7.4-10.4 RDW (test code = RDW) 17.7 11.5-14.5 MCHC (test code = MCHC) 32.8 32.0-36.0 Platelet (test code = Platelet) 182 133-450 MCV (test code = MCV) 91.2 80.0-98.0 WBC (test code = WBC) 11.3 3.7-10.4 [facility] CenterPARATHYROID HNTULOU0885-19-72 10:09:00* Test Item Value Reference Range Interpretation Comme nts Ca Ion WB (test code = Ca Ion WB) 1.08 1.05-1.25 Ca Norm WB (test code = Ca Norm WB) 1.09 1.05-1.25 [facility] GCZWWOQ7017-90-96 22:16:00* Test Item Value Reference Range Interpretation Comme nts RBC product (test code = RBC product) Product available (10/25/15 4:16 PM) [facility] CenterYmfuvigRIBJJXSUSH3134-18-08 16:21:00* Test Item Value Reference Range Interpretation Comme nts Polychrom (test code = Polychrom) Moderate *ABN*(10/25/15 10:21 AM) Plt Morph (test code = Plt Morph) Normal (10/25/15 10:21 AM) Baso Stipplin (test code = Baso Stipplin) Moderate *ABN*(10/25/15 10:21 AM) PTT (test code = PTT) 33.0 s 22.9-35.8 INR (test code = INR) 1.18 0.85-1.17 PT (test code = PT) 15.3 s 12.0-14.7 [facility]BL[facility] [id number] 08:39:00* Test Item Value Reference Range Interpretation Comme nts RBC product (test code = RBC product) Product available (10/25/15 2:39 AM) [facility] CenterCHEM [id number] 07:39:00* Test Item Value Reference Range Interpretation Comme nts Magnesium Lvl (test code = M agnesium Lvl) 1.7 1.8-2.4 eGFR (test code = eGFR) 99 Calcium Lvl (test code = Calcium Lvl) 7.4 8.5-10.5 AGAP (test code = AGAP) 12.4 10.0-20.0 Glucose Lvl (test code = Glucose Lvl) 137 70-99 BUN (test code = BUN) 16 7-22 Creatinine Lvl (test code = Creatinine Lvl) 0.40 0.50-1.40 Sodium Lvl (test code = Sodium Lvl) 141 135-145 Potassium Lvl (test code = P otassium Lvl) 3.4 3.5-5.1 Chloride Lvl (test code = Chloride Lvl) 105 95-109 CO2 (test code = CO2) 27 24-32 Phosphorus (test code = Phosphorus) 3.1 2.5-4.5 [facility] CenterCrypuhuQOAPSGBKZB2658-99-12 07:39:00* Test Item Value Reference Range Interpretation Comme nts Baso Stipplin (test code = Baso Stipplin) Moderate *ABN*(10/25/15 1:39 AM) Polychrom (test code = Polychrom) Moderate *ABN*(10/25/15 1:39 AM) Plt Morph (test code = Plt Morph) Normal (10/25/15 1:39 AM) [facility] CenterPARATHYROID [id number] 07:39:00* Test Item Value Reference Range Interpretation Comme nts Ca Norm WB (test code = Ca Norm WB) 1.08 1.05-1.25 Ca Ion WB (test code = Ca Ion WB) 1.05 1.05-1.25 [facility]CHE[facility] KYFVS2483-73-17 14:17:00* Test Item Value Reference Range Interpretation Comme nts Lactic Acid Lvl (test code = Lactic Acid Lvl) 1.0 0.5-2.2 [facility]CHE[facility] UTYNW3052-01-10 10:16:00* Test Item Value Reference Range Interpretation Comme nts Phosphorus (test code = Phosphorus) 3.7 2.5-4.5 Magnesium Lvl (test code = M agnesium Lvl) 1.7 1.8-2.4 [facility] CenterMzadddrHXKIVKTTIX7503-53-51 10:16:00* Test Item Value Reference Range Interpretation Comme nts INR (test code = INR) 1.18 0.85-1.17 PT (test code = PT) 15.3 s 12.0-14.7 PTT (test code = PTT) 27.8 s 22.9-35.8 [facility] CenterPARATHYROID XUQELCR4690-36-57 10:16:00* Test Item Value Reference Range Interpretation Comme nts Ca Norm WB (test code = Ca Norm WB) 1.08 1.05-1.25 Ca Ion WB (test code = Ca Ion WB) 1.08 1.05-1.25 [facility] JIWGBZK1441-02-89 04:44:00* Test Item Value Reference Range Interpretation Comme nts RBC product (test code = RBC product) Product available (10/22/15 10:44 PM) [facility] [id number] 03:04:00* Test Item Value Reference Range Interpretation Comme nts Antibody Scrn (test code = Antibody Scrn) Negative (10/22/15 9:04 PM) ABO/Rh (test code = ABO/Rh) O POS [facility] CenterURINE AND LXFPP8035-03-61 20:58:00* Test Item Value Reference Range Interpretation Comme nts UA Urobilinogen (test code = UA Urobilinogen) no gt 0.1-1.0 UA WBC (test code = UA WBC) 1 <=5 UA Leuk Est (test code = UA Leuk Est) Negative (10/22/15 2:58 PM) UA Blood (test code = UA Blood) Negative (10/22/15 2:58 PM) UA Bili (test code = UA Bili) Negative *NA*(10/22/15 2:58 PM) UA Sq Epi (test code = UA Sq Epi) None Seen UA Color (test code = UA Color) Light Yellow *NA*(10/22/15 2:58 PM) UA Spec Grav (test code = UA Spec Grav) 1.009 UA Turbidity (test code = UA Turbidity) Clear (10/22/15 2:58 PM) UA pH (test code = UA pH) 7.0 5.0-8.0 UA Glucose (test code = UA Glucose) 50 mg/dL UA Protein (test code = UA Protein) Negative mg/dL UA Ketones (test code = UA Ketones) Negative mg/dL UA Nitrite (test code = UA Nitrite) Negative (10/22/15 2:58 PM) [facility] [id number] 19:20:00* Test Item Value Reference Range Interpretation Comme nts MRSA by PCR (test code = MRSA by PCR) Negative (10/22/15 1:20 PM) [facility] [id number] 19:20:00* Test Item Value Reference Range Interpretation Comme nts Cortisol (test code = Cortisol) 3.4 [facility]SPE[facility] [id number] 19:20:00* Test Item Value Reference Range Interpretation Comme nts Hgb A1C (test code = Hgb A1C) <3.5 % [facility]CHEM [id number] 19:20:00* Test Item Value Reference Range Interpretation Comme nts Ammonia (test code = Ammonia) 32.0 Lipase Lvl (test code = Lipase Lvl) 160 73-393 Lactic Acid Lvl (test code = Lactic Acid Lvl) 0.9 0.5-2.2 Globulin (test code = Globulin) 2.2 2.0-4.0 A/G Ratio (test code = A/G Ratio) 1.0 0.7-1.6 ALANINE AMINOTRANSFERASE (te st code = ALANINE AMINOTRANSFERASE) 16 <=65 Bili Total (test code = Bili Total) 0.4 0.2-1.3 Alk Phos (test code = Alk Phos) 42 39-136 Bili Direct (test code = Bili Direct) 0.1 <=0.3 Total Protein (test code = T otal Protein) 4.3 6.4-8.4 Albumin Lvl (test code = Albumin Lvl) 2.1 3.5-5.0 ASPARTATE TRANSAMINASE (test code = ASPARTATE TRANSAMINASE) 19 <=37 Bili Indirect (test code = B isaac Indirect) 0.3 <=1.0 [facility] Notes Date/Time Note Provider Source 2025-06-02 13:24:51 Reviewed with clinical manager professional development and already scheduled. Patient notified. Lakshmi Solitario [facility] 2025-06-02 11:45:00 Images from the original note were not included. Patient has been identified by and was provided with cup, antiseptic towelette, and clean catch instructions. 1 urine specimen(s) sent. Unpreserved Urine Culture 1 Aptima tube Other urine [facility] 2025-06-02 11:40:23 Pt needs to be rescheduled for her UDS study. Please schedule her on 06/23 or any other date after that that Cindi is in office. Overbook ok Leonila Ca MA [facility] 2025-05-19 16:20:58 Pt has been scheduled. Indy Rodgers [facility] 2025-05-19 11:12:24 Images from the original note were not included. Copied from [facility] #[id number]. 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 Encounter closed. Shalonda Machado [facility] [facility] 2025-05-17 09:28:12 Attempted to reach pt, states pt is currently admitted at [facility] for UTI. Pt should be released today. states yesterday morning pt was lethargic and could not be awaken and pt was taken to ER. states he will have patient return call once she gets home. Noemy Matos RN 05/17/2025 9:30 AM Noemy Matos RN [facility] 2025-05-16 08:28:40 Attempted to reach pt, no answer, left a message for pt to call back. Noemy Matos RN 05/16/2025 8:28 AM T [facility] 2025-05-08 14:45:00 Images from the original note were not included. Patient has been identified by and name and was provided with cup, antiseptic towelette, and clean catch instructions. 1 urine specimen(s) sent. Unpreserved Urine Culture 1 Aptima tube Other urine [facility] 2025-05-08 12:47:07 Called pt back and said that her symptoms have returned. Patient is leaking urine heavily compared to her baseline. She is having lower abdomen pain and urethral pain. She took the ATB Packet given a couple weeks ago and it did not seem to help much. She has been in bed for over a week and is requesting additional instructions. A urine culture was ordered and pt will go to the lab to leave a sample. She is aware that is she needs immediate care she is to go to ER or Urgent care. Pt also aware that cx takes 48-72 hrs for results. T [facility] 2025-05-08 11:49:51 Copied from [facility] #[id number]. 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 Please call to discuss Mariana Keene [facility] 2025-04-24 14:05:25 Verified and discussed urine culture results with patient. She states that she is having dysuria and frequency and already picked up the fosfomycin yesterday and took it. Patient encouraged to call back if no relief in sx's. Understanding verbalized. Carola Lundberg RN [facility] 2025-04-21 14:36:04 Called pt and lm to call back. Leonila Ca MA [facility] 2025-04-20 14:51:03 Called pt at home number and was sent to . Unable to leave a message due to mail box being full. Also, tried to call patient at [facility] in [place] and phone rang and rang without being picked up. Unable to get message to patient. Will need to try again. Leonila Ca MA [facility] 2025-04-20 13:20:30 Teams message also send to residents requesting message to be addressed. [facility] 2025 16:54:34 Images from the original note were not included. UA CX Results Available. Please review and advise. [facility] 2025-04-14 17:31:11 [place] 42[address]-08-01 17:31:11 [place] [address]-08-01 17:31:11 [place] [address]-08-01 17:30:55 Medication filled, please call patient and have them schedule a follow up. [place] 96458-07-31 12:06:49 Urine culture reviewed. Results pending. Luc Francis MD Department Obstetrics and Gynecology Urogynecology and Reconstructive Pelvic Surgery Fellow, PGY-6 [facility]2025-07-30 15:45:00 Images from the original note were not included. Patient has been identified by and name and was provided with cup, antiseptic towelette, and clean catch instructions. 1 urine specimen(s) sent. Unpreserved Urine Culture 1 Aptima tube Other urine [facility]2025-07-29 16:12:24 Spoke to pt and confirmed what [facility] she would want to use if she goes out of town and added it to her chart as an alternative pharmacy. Will await further instructions from pending CX and pt call if she leaves town. [facility]2025-07-29 15:44:14 Warren Phelps 89 year old female Patient stated that she wanted to provide the information for the [facility] [phone]. Patient stated if she goes out of town this is where the rx will go. Then she stated that another number might be [phone] Britni HowellGerman HospitalUrjqqs9117-54-35 15:03:06 Called and spoke to pt and requested she go to lab and leave a UA CX. She was made aware of standing orders and aware of importance of the culture and sensitivity. She stated she will go to the lab and leave a sample. She may be out of town at her [facility] (phone# [phone]) when results come in [place] and if so, she will want her RX (if needed) to be sent to the [facility] in [place]. Pt stated she will call the office to let clinic know if she leaves town. She is aware that a CX takes 48-72 hrs to result. She may stay in town until her results have been received. [facility]ail4006-81-47 12:54:54 Pt calling again regarding recurrant uti, requesting a call. Lennie SolitarioGerman HospitalTmxhya0653-77-55 16:43:18 Spoke with patient. States she is currently on Macrobid and taking as prescribed. She reports urgency, frequency and dysuria while being on the antibiotic. She reports self cathing at least daily. States she took AZO last night that helped with the symptoms. Please advise Lizzie Loco [facility]x3711[facility]37[facility] 16:33:44 Called number on file; no answer; unable to leave a message due to mailbox is full. [facility] HospitalCwasmy5789-07-33 16:24:41 Pt called in again Mariana YeceniaGerman HospitalFgcjah4727-51-45 13:37:38 Warren Phelps is a 89 year old female Patient states she has another UTI and would like to discuss. Carola TijerinaGerman HospitalSvkszf1672-00-58 14:00:00 Addended by: PASCALE BAHENA on: 03/24/2025 03:43 PM Modules accepted: Orders [place] [id number] 15:36:33* [place] 023185-01-02 15:36:33 [place] 023185-01-02 15:36:33* Den Shrestha MD - 09/15/2024 2:45 PM INSPECTOR INSULATION History of Present Illness Multiple Sclerosis Seizures Migraine Was in hospital with GI bleed. Needs refills on Keppra and Reyvow. No generalized seizures. MS is stable Allergies as of 09/15/2024 - Reviewed 09/15/2024 Allergen Reaction Noted Amoxicillin-pot clavulanate 09/15/2024 Sulfa antibiotics 09/15/2024 has a current medication list which includes the following prescription(s): albuterol hfa, amlodipine, calcium carb-cholecalciferol, carvedilol, duloxetine, ergocalciferol, esomeprazole, hyoscyamine, levocetirizine, levothyroxine, methocarbamol, omeprazole otc, oxycodone-acetaminophen, pregabalin, sucralfate, valsartan, reyvow, and levetiracetam. Vitals:09/15/24 1518 BP: 140/75 Pulse: 83 Resp: 16 Temp: 36.2 ?C (97.2 ?F) SpO2: 90% Neurological Exam Mental Status Awake and alert. Speech is normal. Cranial NervesCN II: Visual acuity is normal. CN III, IV, : Extraocular movements intact bilaterally. Pupils equal round and reactive to light bilaterally. CN VII: Full and symmetric facial movement. CN XII: Tongue midline without atrophy or fasciculations. MotorStrength is 5/5 throughout all four extremities. SensoryLight touch is normal in upper and lower extremities. Temperature is normal in upper and lower extremities. Vibration is normal in upper and lower extremities. ReflexesDeep tendon reflexes: Symmetric. Gait In a whelchair. No results found for this or any previous visit. No MRI head results found for the past 12 months Assessment & PlanDiagnoses and all orders for this visit: Localization-related (focal) (partial) symptomatic epilepsy and epileptic syndromes with complex partial seizures, intractable, without status epilepticus (HCC) Migraine without aura and without status migrainosus, not intractable - Lasmiditan Succinate (Reyvow) 50 MG tablet; Take 1 tablet by mouth if needed (migraine). Multiple sclerosis (HCC) Other orders - levETIRAcetam (Keppra) 750 MG tablet; Take 1 tablet by mouth in the morning and 1 tablet in the evening. Stable, continue present medications. ECTOR INSULATION [facility] CenterPhwxdss0059-36-57 15:36:33 [facility] CenterNiqlalo0338-78-67 15:36:33 Diagnosis Localization-related (focal) (partial) symptomatic epilepsy and epileptic syndromes with complex partial seizures, intractable, without status epilepticus (HCC) - Primary Migraine without aura and wi thout status migrainosus, not intractable Multiple sclerosis (HCC) Multiple sclerosis [facility] CenterBgdanxk1741-04-05 15:36:33 [facility] CenterPqrbhzu0517-16-95 15:36:32* [facility] CenterBferbtq8107-90-11 15:36:32 [facility] CenterWotfkog9189-38-51 15:36:32* Den Shrestha MD - 09/15/2024 2:45 PM INSPECTOR INSULATION History of Present Illness Multiple Sclerosis Seizures Migraine Was in hospital with GI bleed. Needs refills on Keppra and Reyvow. No generalized seizures. MS is stable Allergies as of 09/15/2024 - Reviewed 09/15/2024 Allergen Reaction Noted Amoxicillin-pot clavulanate 09/15/2024 Sulfa antibiotics 09/15/2024 has a current medication list which includes the following prescription(s): albuterol hfa, amlodipine, calcium carb-cholecalciferol, carvedilol, duloxetine, ergocalciferol, esomeprazole, hyoscyamine, levocetirizine, levothyroxine, methocarbamol, omeprazole otc, oxycodone-acetaminophen, pregabalin, sucralfate, valsartan, reyvow, and levetiracetam. Vitals:09/15/24 1518 BP: 140/75 Pulse: 83 Resp: 16 Temp: 36.2 ?C (97.2 ?F) SpO2: 90% Neurological Exam Mental Status Awake and alert. Speech is normal. Cranial NervesCN II: Visual acuity is normal. CN III, IV, : Extraocular movements intact bilaterally. Pupils equal round and reactive to light bilaterally. CN VII: Full and symmetric facial movement. CN XII: Tongue midline without atrophy or fasciculations. MotorStrength is 5/5 throughout all four extremities. SensoryLight touch is normal in upper and lower extremities. Temperature is normal in upper and lower extremities. Vibration is normal in upper and lower extremities. ReflexesDeep tendon reflexes: Symmetric. Gait In a whelchair. No results found for this or any previous visit. No MRI head results found for the past 12 months Assessment & PlanDiagnoses and all orders for this visit: Localization-related (focal) (partial) symptomatic epilepsy and epileptic syndromes with complex partial seizures, intractable, without status epilepticus (HCC) Migraine without aura and without status migrainosus, not intractable - Lasmiditan Succinate (Reyvow) 50 MG tablet; Take 1 tablet by mouth if needed (migraine). Multiple sclerosis (HCC) Other orders - levETIRAcetam (Keppra) 750 MG tablet; Take 1 tablet by mouth in the morning and 1 tablet in the evening. Stable, continue present medications. [facility]2025-01-02 15:36:32 [place] [id number] 15:36:32 Diagnosis Localization-related (focal) (partial) symptomatic epilepsy and epileptic syndromes with complex partial seizures, intractable, without status epilepticus (HCC) - Primary Migraine without aura and wi thout status migrainosus, not intractable Multiple sclerosis (HCC) Multiple sclerosis [facility] CenterMakofir4392-31-11 15:36:32 [facility] CenterBueamzi9909-71-75 15:50:00* PROCEDURE INFORMATION: Exam: US Abdomen, Limited; Right Upper Quadrant Exam date and [...] cholecystitis. Vera Mae MD On 07/03/2022 16:36:54; [id number] [facility] CenterTzuvtlv9346-42-26 18:28:00* EXAM: XR HUMERUS 2 VIEWS DATE: 02/04/2018 4:28 PM CDT INDICATION: Post Op Alignment - Post Op [...] mid humerus diaphyseal fracture post internal fixation. [facility]2018-05-24 04:35:00* EXAM: XR RIGHT HUMERUS 2 VIEWS DATE: 02/04/2018 4:33 AM CDT INDICATION: arm pain s/p fall COMPARISON: Right [...] humerus. 3. No additional significant interval change. [facility]2018-05-24 03:50:00* EXAM: XR RIGHT ELBOW 3 VIEWS EXAM: XR RIGHT FOREARM 2 VIEWS EXAM: XR RIGHT SHOULDER 3 VIEWS DATE: [...] shaft width and angulation apex anterior lateral. There is advanced osteoarthritis of the right shoulder accompanied by flattening of the glenoid fossa, marginal sclerosis and marginal osteophyte formation. Subchondral cyst formation is present at the articular surface of the glenoid as well as within the humeral head. Right elbow: The patient has undergone previous open reduction internal plate and screw fixation of the distal right humerus. A malleable plate is seen at the medial cortex of distal right humerus spanning the distal diaphysis and metadiaphysis which is transfixed by 4 proximal and 3 distal bicortical fixation screws. The hardware appears intact. There is no pericardial hardware lucency to suggest loosening. A healed prior fracture is also seen [...] 5. Advanced osteoarthritis of right glenohumeral joint. [facility]2016-02-12 01:02:00* PROCEDURE: Chest 1view CLINICAL INFORMATION Abnormal chest sounds COMPARISON: 10/2015 multiple x-rays. Right PICC line tip in the superior vena cava/right atrial junction. Prominent aortic root which may be seen with aneurysm. Left humeral replacement. Chronic left upper lateral hemithorax rib fractures. Severe right glenohumeral joint osteoarthritic change. Cardiomegaly, minimal congestive change. No pneumothorax. SL: 14 [facility] FarmLiydteszt3745-00-14 02:13:00* Portable one view AP chest, Oct 24, 2015 02:13:00 AM CLINICAL HISTORY: Abnormal chest sounds ; See Clinic Indication TECHNIQUE: Routine AP view of the chest was obtained. COMPARISON: Chest radiographs 2 days ago FINDINGS: Lungs are clear. No pleural effusion or radiographically detectable pneumothorax is present. Cardiomediastinal silhouette is unchanged. Bones are unchanged. Lifelines are stable. IMPRESSION: No acute abnormality of the chest. Cardiomegaly with tortuous and ectatic thoracic aorta SL: 14 [facility] FarmSbujxtdbz1495-47-23 16:50:00* Distal arteriogram with subselective embolizations, 10/23/2015 at 1532. CLINICAL HISTORY: 80-year-old female; upper gas intestinal [...] table. The right groin was prepped and draped utilizing all elements of maximal barrier sterile technique. Right common femoral arterial pulse was palpated and radiographically marked, after which lidocaine 1% was injected into a focus of overlying skin. A 19-gauge needle was used to access the right common femoral artery, after which a [employer] wire was advanced through the needle and into the abdominal aorta. Needle was exchanged for a 5 Israeli sheath. 5 Israeli Diaz B catheter was advanced over the [...] Retrograde flow into the left gastric arterial perfusional territory and left gastric artery was also [...] arterial extravasation. A prominent proximal right laterally coursing GDA branch leading to the endoscopically placed surgical clip in the proximal duodenum was identified. This prominent proximal GDA branch (fourth order branch ) was selected. DSA arteriograms in frontal and oblique projections demonstrated normal arterial territory with no focal active arterial extravasation, with special attention placed in the region [...] and 200 micrograms fentanyl, for a total rhkj-wp-lmca sedation time of 70. COMMUNICATION ELECTRONIC TECHNICIAN: Dr. Howard. FLUOROSCOPY TIME: 15.6 minutes IMPRESSION: 1. Negative for focal active arterial extravasation. 2. Successful empiric Gelfoam embolizations of the right gastric artery, proximal GDA branch leading to the endoscopically placed surgical clip in the duodenum, and GDA. SL: Amy [facility] FarmLvdgdjijm0276-29-74 16:25:00* CTA Abdomen and Pelvis, 10/22/2015 at 1626. CLINICAL HISTORY: 80-year-old female; upper gastrointestinal hemorrhage; hematemesis; status post EGD with clipping of a duodenal bleeding site at an outside facility. TECHNIQUE: 0.625 mm thick axial images of the abdomen and pelvis were obtained with IV contrast via arteriographic protocol. Subsequent delayed axial imaging at 4 minutes was performed. Coronal and sagittal reformations were created. Three-dimensional reconstructions were created at an independent workstation. COMPARISON: None. FINDINGS: A surgical clip is needle bulb, but with no focus of active arterial extravasation the surrounding vicinity or elsewhere throughout the gastrointestinal tract. No pseudoaneurysm is present. Mild to moderate scattered atherosclerotic calcified plaque summation is visualized in the aortoiliac system. Celiac axis, SMA, and bilateral single main renal arteries are patent proximally and to the distal perfusional territories, with small calcified plaque present at [...] 16:45. 2. Tiny left pleural effusion. SL: Amy [facility] FarmNrzgjbhkx9335-08-77 13:24:43* Chest one view: Exam reason: Shortness of Breath A few scattered interstitial opacities are noted bilaterally, nonspecific, likely chronic. The cardiac silhouette is upper limits of normal mildly enlarged. Chronic uncoiling of the ascending and descending thoracic aorta is noted associated with atherosclerotic calcification. There is no consolidation or pleural fluid collection noted. Marginal spurring is noted at the thoracic spine. Right glenohumeral joint prosthesis. Severe degenerative change right glenohumeral joint. Right-sided PICC catheter is noted with the catheter tip at the SVC. Nonspecific elevation of the right hemidiaphragm relative to the left. The central hilar pulmonary arterial vasculature is prominent bilaterally suggestive of pulmonary arterial hypertension. Healed rib deformity at the upper left hemithorax. SL:14 [facility]
[2025-06-06] MEDS ORDERED: CEFTRIAXONE 1000 MG/VIAL ONE (13:22)
[2025-06-06] MEDS ORDERED: NA CHLORIDE 0.9% 500 ML ONE (13:23)
[2025-06-06] MEDS ORDERED: PANTOPRAZOLE 40 MG INJ ONE ×2 (13:23→16:39)
[2025-06-06] MEDS ORDERED: NA CHLORIDE 0.9% 1,000 ML ONE (13:23)
[2025-06-06] MEDS ORDERED: NA CHLORIDE 0.9% 50 ML ONE (13:24)
[2025-06-06 13:28] LABS: PT Prothrombin Time 12.7 SECONDS (10-13.0); Protime INR 1.13
[2025-06-06 13:45] LABS: Sqamous Epithelial <5 /HPF (None Seen); Urine Culture Reflex Order REFLEXED; Urine Microscopic Reflex YN ORDER UMIC
[2025-06-06 13:46] LABS: AST/SGOT 18 U/L (15-37); Albumin 3.4 g/dL (3.4-5.0); Albumin/Globulin Ratio 0.8 (1.1-1.8); Alkaline Phosphatase 83 U/L (45-117); Anion Gap 12.2 mEq/L (5.0-15.0); BUN Blood Urea Nitrogen 36 mg/dL (7-18); Bilirubin Indirect, Calculated 0.3 mg/dL (0.2-0.8); Globulin 4.2 g/dL (2.3-3.5); Glucose Level 134 mg/dL (74-106); Lipase 23 U/L (13-75); Magnesium 2.4 mg/dL (1.6-2.4); NT PRO-BNP 1746 pg/mL (<450); Potassium 4.2 mEq/L (3.5-5.1); Troponin High Sensitivity 11.7 pg/mL (<58.9)
[2025-06-06 13:48] LABS: ALT/SGPT < 14 U/L (13-56)
[2025-06-06 14:02] LABS: Absolute Lymphocytes (CBC) 1.7 K/uL (0.7-4.9); Hematocrit 42.7 % (36.0-45.0); Hemoglobin 14.1 g/dL (12.0-15.0); MCH 30.4 pg (27.0-35.0); MCHC 33.0 g/dL (32.0-36.0); MCV 92.1 fL (80-100); MPV 7.9 fL (7.6-11.3); Nucleated RBC Absolute Count 0.0 (0-0); Nucleated Red Blood Cells % 0.0 % (0-0); RBC Red Blood Cell Count 4.64 M/uL (3.86-4.86); White Blood Count 9.90 thou/uL (4.3-10.9)
--- NOTE | 2025-06-06 14:06 | RAD REPORT ---
EXAMINATION: Head C Spine Mpr Wo Con CLINICAL INDICATION: Female, 89 years old. PAIN TECHNIQUE: Axial CT images from the skull base to the vertex without intravenous contrast. Axial CT i mages through the cervical spine were obtained without intravenous contrast. Sagittal and coronal reformatted images were created from the data set. Coronal and sagittal reformatted images were creat ed from the data set. One or more of the following dose reduction techniques were used: Automated exposure control, adjustment of the mA and/or kV according to patient size, and/or iterative reconstr uction. Unless otherwise specified, incidental findings do not require dedicated imaging follow-up. [id number]. COMPARISON: No prior exams FINDINGS: Head: INTRACRANIAL: No acute intracranial hemorrhage. No acute large vascular territory infarct. No hydroce phalus. No mass effect or midline shift. Mild chronic small vessel ischemic changes.Moderate cerebral atrophy. VASCULATURE: No visualized abnormalities in the arteries or dural venous sinuses. SCALP/SKULL: No calvarial fracture identified. No acute soft tissue abnormality. SINUSES: The visualized paranasal sinuses are mostly clear. No significant mastoid fluid. Cervical spine: ALIGNMENT: 2 mm anterolisthesis of C3 on C4. 2 mm anterolisthesis of C6 on C7. This is chronic. BONE: Vertebral body heights are maintained. No aggressive osseous lesions. DEGENERATIVE: Multilevel cervical spondylosis with evidence of bilateral neural foraminal narrowing. There is at least moderate central spinal stenosis at the C6-7 level secondary to accommodation of anterolisthesis, posterior epidural calcification, and facet and uncovertebral joint hypertrophy. The re is also likely moderate central spinal stenosis at C3-4 secondary to similar findings.. Neural foraminal narrowing is severe bilaterally at multiple levels. SOFT TISSUE: Partially imaged left shoulder arthroplasty. Remote left-sided rib fractures. Heterogene ous thyroid. IMPRESSION: No acute intracranial abnormality. No acute fracture or traumatic malalignment of the cervical spine.
--- NOTE | 2025-06-06 14:12 | RAD REPORT ---
EXAM: Chest Abd Pelvis Wo Con CLINICAL INDICATION: Female, 89 years old Cough;Pain TECHNIQUE: CT chest, abdomen and pelvis was performed, without IV contrast, as per department protoco l. Axial, sagittal and coronal reconstructions were obtained. One or more of the following dose reduction techniques were used: Automated exposure control, adjustment of the mA and/or kV according to the patient size, and/or iterative reconstruction. Unless otherwise specified, incidental findings do not require dedicated imaging follow-up. [id number]. COMPARISON: 09/21/2024 FINDINGS: The lack of intravenous contrast limits the sensitivity of this exam for evaluation of solid visceral organs, vascular structures, and retroperitoneum. ---THORAX--- LOWER NECK AND CHEST WALL: Heterogeneous thyroid. MEDIASTINUM AND LYMPH NODES: No mediastinal mass or fluid collection. Normal size mediastinal, hilar, and axillary lymph nodes. THORACIC AORTA: Ascending thoracic aortic aneurysm measuring 4.6 cm. Aortic valve calcifications. PULMONARY ARTERIES: Enlarged main pulmonary arteries could indicate pulmonary artery hypertension. Un able to assess for pulmonary emboli without IV contrast. HEART: Normal heart size. Moderate coronary artery calcifications.No significant pericardial effusion . Aortic valve calcifications. LUNGS AND AIRWAYS: Mild bronchial wall thickening. No evidence of consolidation or pulmonary edema. M otion artifact limits evaluation for pulmonary nodule detection. Sub-4 mm nodules are noted which are likely benign. PLEURA: No pleural effusion. No pneumothorax. ---ABDOMEN/PELVIS--- UPPER GI: Distended stomach which has been seen on prior exams.. LIVER: No significant focal abnormality. GALLBLADDER/BILE DUCTS: Cholecystectomy. Mild extra-hepatic biliary ductal dilatation is likely relat ed to the post-cholecystectomy state. Consider correlating with LFT's.? PANCREAS: Atrophy but no acute findings. SPLEEN: Unremarkable. ADRENALS: No adrenal masses. KIDNEYS AND URETERS: No hydronephrosis.Low density and/or too small to characterize renal lesions whi ch are statistically benign.Nonobstructing renal calculi.No ureteral calculi. ABDOMINAL AORTA AND OTHER VESSELS: Severe atherosclerotic changes. No aortic aneurysm. PERITONEUM: No abnormal free fluid. No free air. LYMPH NODES: No pathologic lymphadenopathy. ABDOMINAL WALL: Unremarkable SMALL BOWEL/COLON: Large stool burden in the rectum.Moderate stool otherwise. Mild perirectal edema. URINARY BLADDER: Underdistended but grossly unremarkable. REPRODUCTIVE ORGANS: Uterus surgically absent. No adnexal abnormality. ---COMBINED--- MUSCULOSKELETAL: Left shoulder arthroplasty. Remote left-sided rib fractures. Advanced right shoulder degenerative changes. Remote right obturator ring fracture. Remote right iliac bone lesion. Scattered degenerative changes present spine. No compression fracture identified. ADDITIONAL FINDINGS: None. IMPRESSION: Large rectal stool burden concerning for fecal impaction. No other acute findings identified within t he chest, abdomen, or pelvis. Incidental findings as noted above,
--- NOTE | 2025-06-06 14:29 | RAD REPORT ---
EXAM: Chest Single View HISTORY: 89 years Female COUGH COMPARISON: 05/16/2025 FINDINGS: LUNGS/PLEURA: The lungs are clear. No pleural effusions or pneumothorax. No pulmonary edema. CARDIAC/MEDIASTINUM: Stable enlargement. Known thoracic aortic aneurysm. UPPER ABDOMEN: No significant abnormality. BONES: No acute abnormality. Left shoulder arthroplasty. Partially imaged hardware in the right humer us. LINES/TUBES/OTHER: N/A IMPRESSION: No evidence of acute cardiopulmonary disease.
--- NOTE | 2025-06-06 15:52 | ER ---
Nurse's Notes [facility] Name: Rosina Odonnell Age: 89 yrs Sex: Female : 1935 Arrival Date: 06/06/2025 Time: 11:29 Bed 7 Private MD: Diagnosis: GI Bleed/ Gastrointestinal hemorrhage, unspecified-UPPER;Constipation, unspecified;UTI/ Urinary tract infection, site not specified Presentation: 06/06 11:56 Chief complaint: EMS states: DARK COFFEE GROUND VOMITING THAT BEGAN LAST NIGHT WITH dd2 ABDOMINAL PAIN. PT DENIES DIARRHEA. REPORTS SHE HASN'T EATEN NORMAL IN THE PAST 2-3 DAYS. Coronavirus screen: At this time, the client does not indicate any symptoms associated with coronavirus-19. Ebola Screen: No symptoms or risks identified at this time. Initial Sepsis Screen:. Onset of symptoms was June 05, 2025. 11:56 Method Of Arrival: EMS: [facility] dd2 11:56 Acuity: [place] 3 dd2 11:56 Care prior to arrival: Medication(s) given: zofran 4 mg, 1.25 MG DROPERIDOL IV dd2 initiated. 22 GA, in the right forearm. 12:21 Initial Sepsis Screen: Does the patient meet any 2 criteria? No. Patient's initial dd2 sepsis screen is negative. Does the patient have a suspected source of infection? No. Patient's initial sepsis screen is negative. Risk Assessment: Do you want to hurt yourself or someone else? Patient reports no desire to harm self or others. Triage Assessment: 12:00 General: Appears uncomfortable, ill, Behavior is calm, cooperative, appropriate for dd2 age. Pain: Complains of pain in abdomen. EENT: No deficits noted. No signs and/or symptoms were reported regarding the EENT system. GI: Reports lower abdominal pain, upper abdominal pain, intolerance of fluids, intolerance of food, nausea, vomiting. : INCONTINENCE OF BLADDER AND BOWEL Reports incontinence. Musculoskeletal: Circulation, motion, and sensation intact. Range of motion: intact in all extremities. Historical: - Allergies: 12:00 Augmentin; dd2 12:00 PENICILLINS; dd2 12:00 Sulfa (Sulfonamide Antibiotics); dd2 - PMHx: 12:00 Asthma; Hypertension; Multiple Sclerosis; Seizure; GI BLEED (Seizure); dd2 - PSHx: 12:00 EGD; GALLBLADDER; hysterectomy; sinus surgery; dd2 - Immunization history:: Adult Immunizations unknown. - Infectious Disease History:: Denies. - Social history:: Smoking status: Patient denies any tobacco usage or history of. Screenin:24 [facility] ED Fall Risk Assessment (Adult) History of falling in the last 3 months, dd2 including since admission Yes- single mechanical fall (1 pt) Confusion or Disorientation No (0 pts) Intoxicated or Sedated No (0 pts) Impaired Gait No (0 pts) Mobility Assist Device Used Yes (1 pt) Altered Elimination Yes (1 pt) Score/Fall Risk Level 3 or more points = High Risk Oriented to surroundings, Maintained a safe environment, Educated pt \T\ family on fall prevention, incl call for assistance when getting out of bed, Assessed \T\ reinforced patient's understanding of fall precautions, Provided non-skid footwear, Hourly rounding (assess needs \T\ fall precautionary measures) done, Used ambulatory aids as needed (educated on \T\ assisted with). Abuse screen: Denies threats or abuse. Denies injuries from another. Nutritional screening: DECREASED APPETITE X3 DAYS. Tuberculosis screening: No symptoms or risk factors identified. Assessment: 12:22 Reassessment: SEE TRIAGE ASSESSMENT FOR FULL ASSESSMENT. GI: Abdomen is non-distended, dd2 Bowel sounds present X 4 quads. Abd is soft X 4 quads Abd is non tender X 4 quads. Vital Signs: 11:56 Resp 16; Temp 98.2; dd2 12:21 BP 134 / 71; Pulse 84; Pulse Ox 95% ; Pain 6/10; dd2 14:10 BP 112 / 75; Pulse 75; Resp 18; Pulse Ox 95% on R/A; ap3 14:30 BP 101 / 69; Pulse 91; Resp 17; Pulse Ox 94% on R/A; dd2 15:30 BP 136 / 72; Pulse 89; Resp 16; Pulse Ox 97% on R/A; dd2 16:09 BP 127 / 79; Pulse 93; Resp 16; Temp 98.4; Pulse Ox 95% on R/A; dd2 12:21 Pain Scale: Adult dd2 ED Course: 11:29 Patient arrived in ED. bd 11:34 Yusef Echavarria MD is Attending Physician. [facility] 12:00 Triage completed. dd2 12:00 Arm band placed on right wrist. dd2 12:24 Patient has correct armband on for positive identification. Placed in gown. Bed in low dd2 position. Call light in reach. Side rails up X2. Client placed on continuous cardiac and pulse oximetry monitoring. NIBP monitoring applied. Door closed. Noise minimized. Warm blanket given. Pillow given. Verbal reassurance given. 12:24 Maintain EMS IV. Dressing intact. Good blood return noted. Site clean \T\ dry. Gauge \T\ dd 2 site: 22G RT FOREARM. Flushed with 10 mL NS. 12:40 CT Chest Abdomen Pelvis W/O Contrast In Process Unspecified. EDMS 12:40 CT Head C Spine In Process Unspecified. EDMS 12:53 Radiology exam delayed due to IV insertion attempt and/or patient not having az appropriate IV at this time. 13:37 XRAY Chest (1 view) In Process Unspecified. EDMS 13:38 Urine obtained. straight cath inserted using sterile technique. dd2 14:09 Vianca Dietz, MARIELLA is Primary Nurse. ap3 14:09 EKG done, by ED staff, reviewed by Vianca Dietz RN. ap3 15:51 Matthieu Kohler MD is Hospitalizing Provider. [facility] 16:57 Provided Education on: ADMISSION EDUCATION . dd2 16:57 No provider procedures requiring assistance completed. Patient admitted, IV remains in dd2 place. Administered Medications: 13:49 Drug: Pantoprazole IVP 80 mg IVP once Route: IVP; Site: left forearm; dd2 13:55 Follow up: Response: No adverse reaction dd2 13:49 Drug: NS 0.9% IV 1000 ml IV at 125 ml/hr once Route: IV; Rate: 125 ml/hr; Site: left dd2 forearm; 16:13 Follow up: IV Status: Infusion continued upon admission dd2 13:49 Drug: Rocephin IV 1 grams IV at per protocol once; Given slow IV push per pharmacy dd2 instructions Route: IV; Rate: per protocol; Site: left forearm; 14:00 Follow up: IV Status: Completed infusion dd2 13:50 Drug: NS 0.9% IV 500 ml 500 ml IV at 1 bolus once; to be given as a bolus over 30 dd2 minutes Volume: 500 ml; Route: IV; Rate: 1 bolus; Site: left forearm; 14:25 Follow up: IV Status: Completed infusion dd2 16:46 Drug: Dulcolax MI Suppository 10 mg MI once Route: MI; dd2 16:57 Follow up: Response: No adverse reaction dd2 16:46 Drug: Lactulose PO 30 grams 45 ml PO once Volume: 45 ml; Route: PO; dd2 16:57 Follow up: Response: No adverse reaction dd2 16:46 Drug: Pantoprazole IV 8 mg/hr IV at 25 ml/hr continuous; (Standard dilution is 80 mg in dd2 250 mL NS) Route: IV; Rate: 25 ml/hr; Site: left forearm; 16:57 Follow up: IV Status: Infusion continued upon admission dd2 Medication: 12:24 VIS not applicable for this client. dd2 Outcome: 15:52 Decision to Hospitalize by Provider. ervin 16:57 Admitted to Med/surg accompanied by tech, via stretcher, room 420, with chart, dd2 16:57 Condition: stable 16:57 Instructed on the need for admit, Demonstrated understanding of instructions, 16:59 Patient left the ED. dd2 Signatures: Dispatcher [employer] EDMS Aisha Burris Corey, MD MD cha Prokisch, Amanda, RN RN ap3 Melissa Cruz DIANA, MARIELLA RN dd2 Corrections: (The following items were deleted from the chart) 12:24 12:23 Care prior to arrival: Medication(s) given: zofran 4 mg, 1.25 MG DROPERIDOL IV dd2 initiated. 22 GA, in the right forearm, dd2
--- NOTE | 2025-06-06 15:52 | EDPHYS ---
Physician Documentation [facility] Name: Rosina Odonnell Age: 89 yrs Sex: Female : 1935 Arrival Date: 06/06/2025 Time: 11:29 Bed 7 Private MD: SONNY Physician Yusef Echavarria HPI: 06/06 15:45 This 89 yrs old Female presents to ER via EMS with complaints of Vomiting, Abdominal ervin Pain. 15:45 The patient presents to the emergency department with nausea, vomiting, that is ervin intermittent, described as coffee ground in nature. Onset: The symptoms/episode began/occurred this morning, today. Possible causes: unknown. The symptoms are aggravated by nothing. The symptoms are alleviated by nothing. Associated signs and symptoms: The patient has no apparent associated signs or symptoms. Severity of symptoms: At their worst the symptoms were mild moderate in the emergency department the symptoms are unchanged. The patient has not experienced similar symptoms in the past. Historical: - Allergies: 12:00 Augmentin; dd2 12:00 PENICILLINS; dd2 12:00 Sulfa (Sulfonamide Antibiotics); dd2 - PMHx: 12:00 Asthma; Hypertension; Multiple Sclerosis; Seizure; GI BLEED (Seizure); dd2 - PSHx: 12:00 EGD; GALLBLADDER; hysterectomy; sinus surgery; dd2 - Immunization history:: Adult Immunizations unknown. - Infectious Disease History:: Denies. - Social history:: Smoking status: Patient denies any tobacco usage or history of. ROS: 15:46 Constitutional: Negative for fever, chills, and weight loss, Eyes: Negative for injury, ervin pain, redness, and discharge, ENT: Negative for injury, pain, and discharge, Neck: Negative for injury, pain, and swelling, Cardiovascular: Negative for chest pain, palpitations, and edema, Respiratory: Negative for shortness of breath, cough, wheezing, and pleuritic chest pain, Back: Negative for injury and pain, MS/Extremity: Negative for injury and deformity, Skin: Negative for injury, rash, and discoloration, Neuro: Negative for headache, weakness, numbness, tingling, and seizure, Psych: Negative for depression, anxiety, suicide ideation, homicidal ideation, and hallucinations, Allergy/Immunology: Negative for hives, rash, and allergies, Endocrine: Negative for neck swelling, polydipsia, polyuria, polyphagia, and marked weight changes, Hematologic/Lymphatic: Negative for swollen nodes, abnormal bleeding, and unusual bruising, 15:46 Abdomen/GI: Positive for abdominal pain, nausea, hematemesis, 15:46 : Positive for urinary symptoms, pelvic pain, urinary frequency, small amounts, hematuria, burning with urination, 15:46 MS/extremity: Negative for acute changes, 15:46 Neuro: Positive for weakness, Exam: 15:46 Constitutional: This is a well developed, well nourished patient who is awake, alert, ervin and in no acute distress. Head/Face: Normocephalic, atraumatic. Eyes: Pupils equal round and reactive to light, extra-ocular motions intact. Lids and lashes normal. Conjunctiva and sclera are non-icteric and not injected. Cornea within normal limits. Periorbital areas with no swelling, redness, or edema. ENT: Nares patent. No nasal discharge, no septal abnormalities noted. Tympanic membranes are normal and external auditory canals are clear. Oropharynx with no redness, swelling, or masses, exudates, or evidence of obstruction, uvula midline. Mucous membranes moist. Neck: Trachea midline, no thyromegaly or masses palpated, and no cervical lymphadenopathy. Supple, full range of motion without nuchal rigidity, or vertebral point tenderness. No Meningismus. Chest/axilla: Normal chest wall appearance and motion. Nontender with no deformity. No lesions are appreciated. Cardiovascular: Regular rate and rhythm with a normal S1 and S2. No gallops, murmurs, or rubs. Normal PMI, no JVD. No pulse deficits. Respiratory: Lungs have equal breath sounds bilaterally, clear to auscultation and percussion. No rales, rhonchi or wheezes noted. No increased work of breathing, no retractions or nasal flaring. Back: No spinal tenderness. No costovertebral tenderness. Full range of motion. Female : Normal external genitalia. Skin: Warm, dry with normal turgor. Normal color with no rashes, no lesions, and no evidence of cellulitis. MS/ Extremity: Pulses equal, no cyanosis. Neurovascular intact. Full, normal range of motion., bilateral aka Neuro: Awake and alert, GCS 15, oriented to person, place, time, and situation. Cranial nerves II-XII grossly intact. Motor strength 5/5 in all extremities. Sensory grossly intact. Cerebellar exam normal. Normal gait. Psych: Awake, alert, with orientation to person, place and time. Behavior, mood, and affect are within normal limits. 15:46 ECG was reviewed by the Attending Physician. 15:46 Abdomen/GI: Inspection: abdomen appears normal, Bowel sounds: normal, Palpation: abdomen is soft and non-tender, Rectal exam: rectal tone normal, hemorrhoid(s), are not appreciated, mass, is not appreciated, swelling, is not appreciated, tenderness, fecal impaction, that is moderate, Liver: no appreciated palpable abnormalities, Hernia: not appreciated, Vital Signs: 11:56 Resp 16; Temp 98.2; dd2 12:21 BP 134 / 71; Pulse 84; Pulse Ox 95% ; Pain 6/10; dd2 14:10 BP 112 / 75; Pulse 75; Resp 18; Pulse Ox 95% on R/A; ap3 14:30 BP 101 / 69; Pulse 91; Resp 17; Pulse Ox 94% on R/A; dd2 15:30 BP 136 / 72; Pulse 89; Resp 16; Pulse Ox 97% on R/A; dd2 16:09 BP 127 / 79; Pulse 93; Resp 16; Temp 98.4; Pulse Ox 95% on R/A; dd2 12:21 Pain Scale: Adult dd2 MDM: 11:34 Medical Screening Exam initiated ervin 15:48 Differential diagnosis: Nonspecific abd pain, gastritis, pancreatitis, appendicitis, ervin diverticulitis, viral gastroenteritis, gastroenteritis, gastritis, diverticulitis. Differential Diagnosis altered mental status, sepsis, flu. Data reviewed: vital signs, nurses notes, EMS record, lab test result(s), EKG, radiologic studies, CT scan, plain films. Consideration of Admission/Observation Patient was admitted/placed on observation. Escalation of care including admission/observation considered. I considered the following discharge prescriptions or medication management in the emergency department Medications were administered in the Emergency Department. See MAR. Independent interpretation of the following test(s) in the Emergency Department EKG: See my EKG interpretation above. Test considered but Not performed: Ultrasound no abd usg. Care significantly affected by the following chronic conditions: Hypertension, MS, GI BLEED, ASTHMA, SEIZURE. 06/06 11:38 Order name: Basic Metabolic Panel; Complete Time: 15:36 [facility] 06/06 11:38 Order name: CBC with Diff; Complete Time: 15:36 [facility] 06/06 11:38 Order name: LFT's; Complete Time: 15:36 [facility] 06/06 11:38 Order name: Magnesium; Complete Time: 15:36 [facility] 06/06 11:38 Order name: NT PRO-BNP; Complete Time: 15:36 [facility] 06/06 11:38 Order name: PT-INR; Complete Time: 15:36 [facility] 06/06 11:38 Order name: Troponin HS; Complete Time: 15:36 [facility] 06/06 11:38 Order name: Lipase; Complete Time: 15:36 [facility] 06/06 11:38 Order name: Type And Screen; Complete Time: 15:36 [facility] 06/06 11:38 Order name: UA Rfx Sander Cult if indicated; Complete Time: 15:36 [facility] 06/06 13:52 Order name: Urine Culture [facility] 06/06 11:38 Order name: XRAY Chest (1 view); Complete Time: 15:36 [facility] 06/06 11:38 Order name: CT Chest Abdomen Pelvis W/O Contrast; Complete Time: 15:36 [facility] 06/06 11:44 Order name: CT Head C Spine; Complete Time: 15:36 [facility] 06/06 15:59 Order name: CONS Physician Consult [facility] 06/06 11:38 Order name: Cardiac monitoring; Complete Time: 13:29 [facility] 06/06 11:38 Order name: EKG - Nurse/Tech; Complete Time: 14:11 [facility] 06/06 11:38 Order name: IV Saline Lock; Complete Time: 13:11 [facility] 06/06 11:38 Order name: Labs collected and sent; Complete Time: 13:17 [facility] 06/06 11:38 Order name: O2 Per Protocol; Complete Time: 13:11 [facility] 06/06 11:38 Order name: O2 Sat Monitoring; Complete Time: 13:11 [facility] 06/06 11:38 Order name: IV Saline Lock - Large Bore; Complete Time: 13:17 [facility] EC:46 Rate is 97 beats/min. Rhythm is regular. QRS [place] is Normal. MI interval is normal. QRS ervin interval is normal. QT interval is normal. No Q waves. T waves are Normal. No ST changes noted. Clinical impression: NSR w/ Non-specific ST/T Changes and No evidence of ischemia. Interpreted by me. Reviewed by me. Administered Medications: 13:49 Drug: Pantoprazole IVP 80 mg IVP once Route: IVP; Site: left forearm; dd2 13:55 Follow up: Response: No adverse reaction dd2 13:49 Drug: NS 0.9% IV 1000 ml IV at 125 ml/hr once Route: IV; Rate: 125 ml/hr; Site: left dd2 forearm; 16:13 Follow up: IV Status: Infusion continued upon admission dd2 13:49 Drug: Rocephin IV 1 grams IV at per protocol once; Given slow IV push per pharmacy dd2 instructions Route: IV; Rate: per protocol; Site: left forearm; 14:00 Follow up: IV Status: Completed infusion dd2 13:50 Drug: NS 0.9% IV 500 ml 500 ml IV at 1 bolus once; to be given as a bolus over 30 dd2 minutes Volume: 500 ml; Route: IV; Rate: 1 bolus; Site: left forearm; 14:25 Follow up: IV Status: Completed infusion dd2 16:46 Drug: Dulcolax MI Suppository 10 mg MI once Route: MI; dd2 16:57 Follow up: Response: No adverse reaction dd2 16:46 Drug: Lactulose PO 30 grams 45 ml PO once Volume: 45 ml; Route: PO; dd2 16:57 Follow up: Response: No adverse reaction dd2 16:46 Drug: Pantoprazole IV 8 mg/hr IV at 25 ml/hr continuous; (Standard dilution is 80 mg in dd2 250 mL NS) Route: IV; Rate: 25 ml/hr; Site: left forearm; 16:57 Follow up: IV Status: Infusion continued upon admission dd2 Disposition Summary: 06/06/25 15:52 Hospitalization Ordered Notes: Hospitalization Status: Inpatient Admission ervin Provider: Matthieu Kohler cha Location: Telemetry/[facility] (Inpatient) ervin Condition: Fair ervin Problem: new ervin Symptoms: have improved ervin Bed/Room Type: Standard ervin Room Assignment: 420(06/06/25 16:00) bd Diagnosis - GI Bleed/ Gastrointestinal hemorrhage, unspecified - UPPER ervin - Constipation, unspecified ervin - UTI/ Urinary tract infection, site not specified ervin Forms: - Medication Reconciliation Form ervin - SBAR form ervin - Leadership Thank You Letter ervin Critical care time excluding procedures: 15:50 Critical care time: Bedside Care: 25 minutes, Consultation: 10 minutes, Family ervin Intervention: 10 minutes. Total time: 45 minutes Signatures: Dispatcher [employer] EDAisha Ho Corey, MD MD cha DAVIS, DIANA, RN RN dd2 Corrections: (The following items were deleted from the chart) 11:39 11:39 BASIC METABOLIC PANEL+C.LAB.BRZ ordered. EDMS EDMS 11:39 11:39 CBC+H.LAB.BRZ ordered. EDMS EDMS 11:39 11:39 HEPATIC FUNCTION+C.LAB.BRZ ordered. EDMS EDMS 11:39 11:39 MAGNESIUM+C.LAB.BRZ ordered. EDMS EDMS 11:39 11:39 PROBNP+C.LAB.BRZ ordered. EDMS EDMS 11:39 11:39 PROTIME (+INR)+COAG.LAB.BRZ ordered. EDMS EDMS 11:39 11:39 Troponin High Sensitivity+C.LAB.BRZ ordered. EDMS EDMS 11:39 11:39 LIPASE+C.LAB.BRZ ordered. EDMS EDMS 11:39 11:39 TYPE AND SCREEN+BB.LAB.BRZ ordered. EDMS EDMS 11:39 11:39 UA Rfx Sander Cult if indicated+U.LAB.BRZ ordered. EDMS EDMS 11:39 11:39 Chest Single View+RAD.RAD.BRZ ordered. EDMS EDMS 11:39 11:39 Chest Abdomen Pelvis Wo Con+CT.RAD.BRZ ordered. EDMS EDMS 16:00 15:52 ervin hammond
[2025-06-06] MEDS ORDERED: LACTULOSE 20 GM/30 ML UCUP ONE (16:39)
[2025-06-06] MEDS ORDERED: BISACODYL 10 MG RECTAL SUPP ONE (16:39)
[2025-06-06] MEDS ORDERED: NA CHLORIDE 0.9% 250 ML ONE (16:39)
[2025-06-06] MEDS ORDERED: LACTULOSE 20 GM/30 ML UCUP PO PRN (17:25)
[2025-06-06] MEDS ORDERED: ACETAMINOPHEN 325 MG TABLET PO PRN ×2 (17:25→21:00)
[2025-06-06 17:36] VITALS: BMI 15.6
[2025-06-06] MEDS: BISACODYL 10 MG RECTAL SUPP PR SCH (20:28)
[2025-06-06] MEDS: CEFTRIAXONE 1,000 MG in NA CHLORIDE 0.9% 50 ML IVPB SCH (20:28)
[2025-06-06] MEDS: NA CHLORIDE 0.9% 1,000 ML IV SCH (20:29)
[2025-06-06] MEDS: VALSARTAN 160 MG TAB PO SCH (21:56)
[2025-06-06] MEDS: MIRTAZAPINE 15 MG TAB PO SCH (21:57)
[2025-06-06] MEDS: levETIRAcetam 500 MG TAB PO SCH (21:57)
[2025-06-06] MEDS: OXYCODONE HCL 5 MG TAB PO PRN (22:13)
--- NOTE | 2025-06-07 02:11 | HP ---
Date of Admission: 06/06/2025 Chief Complaint: Abdominal pain, nausea, vomiting, and throwing up blood. History Of Present Illness: This is an 89-year-old female patient, who presented to emergency room with complaints of abdominal pain, nausea, vomiting that started today and there was some evidence of blood in the vomitus. Denies any fever, chills. The patient was brought into emergency room. After she was evaluated, I was contacted requesting admission to the hospital with urinary tract infection and upper GI bleeding. When I saw her this evening, she was in her room by herself, lying in bed. Denied any abdominal pain when I saw her. No other new complaints reported by her. No chest pain. No shortness of breath. Allergies: AUGMENTIN CAUSING ITCHING, SULFA CAUSING ITCHING. Medications At Home: She takes Oxycodone, albuterol inhaler, carvedilol 6.25 mg 2 times a day, Vitamin D3 2000 units daily, Senokot S 2 tablets 2 times a day, fluticasone nasal spray 1 spray each nostril 2 times a day, Advair inhaler 1 puff 2 times a day, hyoscyamine 0.125 mg 3 times a day as needed, ibandronate 150 mg once a month, levetiracetam 750 mg two times a day, levocetirizine 5 mg daily, levothyroxine 50 mcg daily, meclizine as needed, mirtazapine 15 mg daily at bedtime, Zofran p.r.n., pregabalin 150 mg daily, trazodone 50 mg takes 0.5 to1 tablet at bedtime, valsartan 160 mg daily. Review of Systems: GI: As mentioned above. All other systems reviewed and negative. Past Medical History: Significant for history of recurrent urinary tract infection. Insomnia, hypertension, seizure disorder, asthma, osteoarthritis at multiple sites diverticulosis, gastroesophageal reflux disease, multiple sclerosis, hypothyroidism, hyperlipidemia, rosacea, prior history of anemia with GI bleeding. Past Surgical History: Significant for sinus surgery, removal of benign breast tumor, hysterectomy, shoulder surgery, and toe surgery. Family History: Father had subdural hematoma. Mother had hypertension Social History: Negative for smoking and alcohol use. Physical Examination: Vital Signs: Temperature 98.4, pulse 93, respiratory rate 16, blood pressure 127/79, oxygen saturation 95% on room air. Height 5 feet 6 inches, weight 97 pounds. General: Awake, alert, oriented, not in distress. HEENT: Head atraumatic, normocephalic. Conjunctivae nonerythematous. Sclerae white. Mouth, no thrush or edema noted. Ears/Nose, no mass, lesion, discharge noted. Neck: Supple. No JVD, lymph nodes, bruit, thyromegaly noted. Lungs: Bilateral good equal air entry. Clear to auscultation. No rhonchi. No rales. Heart: Normal heart sounds, no murmur or gallop. Abdomen: Soft, bowel sounds normal. No guarding, rigidity, tenderness, mass, hepatosplenomegaly, distention, or bruit noted. Extremities: No leg edema. No calf tenderness. Skin: No rash, ulcer, cellulitis. Lymphatics: No lymph node enlargement in neck, supraclavicular, infraclavicular region. Neuro: No focal neurological deficit. Chest: Unremarkable. External Genitalia: Deferred. Rectal: Deferred. Laboratory Data: WBC 9.9, hemoglobin 14.1, platelets 281. Sodium 140, potassium 4.2, chloride 105, bicarb 27, BUN 36, creatinine 1.02, glucose 134. Liver function tests unremarkable. Troponin 11.7. ProBNP 1746. Lipase 23. Urinalysis, appearance extremely turbid, leukocytes 500, wbc more than 50, bacteria more than 50. Chest x-ray, no acute cardiopulmonary changes. CAT scan of the head and cervical spine, no acute intracranial changes. No evidence of cervical spine fracture or acute traumatic changes. CAT scan of chest, abdomen, pelvis shows large rectal stool burden concerning for fecal impaction. No other acute findings in chest, abdomen, or pelvis. Impression: 1. Hematemesis. 2. Urinary tract infection. 3. Chronic diastolic heart failure. 4. Mild persistent asthma. 5. Hypertension. 6. Hyperlipidemia. 7. Aortic aneurysm, ascending thoracic aorta. 8. Chronic dissection of abdominal aorta. 9. Hypothyroidism. 10. Diverticulosis. 11. Osteoarthritis, multiple sites. 12. Multiple sclerosis. 13. Seizure disorder. 14. Gastritis. 15. Osteoarthritis, multiple sites. Plan: Admit the patient to hospital for further evaluation and management of this problem. The patient is appropriate for inpatient and is expected to spend 2 midnights in hospital. Plan is to go ahead and treat her with IV antibiotic ceftriaxone for urinary tract infection. Follow up on culture result. Once it is available, we will decide about culture-specific antibiotic. The patient's nausea, vomiting, and hematemesis problem will be managed conservatively. Right now, she is on IV Protonix drip, which we will continue that. Consult singing telegram performer Dr. Watters. Monitor the patient's hemoglobin. For hypertension, we will continue antihypertensive medication per order. No need for further intervention except monitoring and make adjustment on medication as it becomes necessary. For her seizure disorder, she is on Keppra, we will continue that. No need for further intervention. Her asthma problem is stable. We will not require any further intervention. Total time spent 55 minutes including review of last hospital admission record from 05/17/2025, communication with emergency room physician, review of emergency room visit record, and performing today's evaluation and management. SCD will be ordered for DVT prophylaxis. We will leave the patient on clear liquid diet right now and I will see her in the morning for followup. ANH/MODL Voice ID: [id number]
[2025-06-07] MEDS: PANTOPRAZOLE INJ 80 MG in NA CHLORIDE 0.9% 250 ML IV SCH ×2 (02:35→14:30)
[2025-06-07 05:03] LABS: Absolute Lymphocytes (CBC) 2.4 K/uL (0.7-4.9); Hematocrit 31.3 % (36.0-45.0); Hemoglobin 10.4 g/dL (12.0-15.0); MCH 30.7 pg (27.0-35.0); MCHC 33.4 g/dL (32.0-36.0); MCV 92.1 fL (80-100); MPV 7.9 fL (7.6-11.3); Nucleated RBC Absolute Count 0.0 (0-0); Nucleated Red Blood Cells % 0.0 % (0-0); RBC Red Blood Cell Count 3.39 M/uL (3.86-4.86); White Blood Count 8.60 thou/uL (4.3-10.9)
[2025-06-07 05:16] LABS: Anion Gap 9.8 mEq/L (5.0-15.0); BUN Blood Urea Nitrogen 33.0 mg/dL (7-18); Glucose Level 89.0 mg/dL (74-106); Potassium 3.8 mEq/L (3.5-5.1)
[2025-06-07] MEDS: LEVOTHYROXINE SOD 0.05 MG TABLET PO SCH (05:44)
[2025-06-07] MEDS: NA CHLORIDE 0.9% 1,000 ML IV SCH (07:36)
[2025-06-07] MEDS: PREGABALIN 150 MG CAP PO SCH (08:21)
[2025-06-07] MEDS: Ringers Lactate 1,000 ML IV ONE (12:00)
[2025-06-07] MEDS ORDERED: LIDOCAINE 1% MPF 30 ML VIAL ONE (13:09)
--- NOTE | 2025-06-07 19:21 | CON ---
Date of Consultation: 06/07/2025 Reason For Consultation: Coffee-ground emesis with anemia. 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 The patient presented due to she says recurrent nausea, vomiting, retching, has midepigastric pain an d then after that, she began having coffee-ground emesis. told her it was dark black and the y decided to come to the hospital for further evaluation and care. In the emergency room, her hemogl obin was 14.1, now it has drifted down to 10.4. Her nausea and vomiting are controlled since in the hospital on antiemetics, pain medicines, and she has not seen any more blood or had any more emesis s adi admission. Past Medical History: Significant for peptic ulcer disease; large ulcer in the past at the pylorus, status post PPI therapy; osteoarthritis; rash of unknown etiology requiring diclofenac in the past; h ypertension; hypothyroidism; hyperlipidemia, vitamin B12 deficiency; anemia; multiple sclerosis; asth ma; allergic rhinitis; diverticulosis; migraine headaches; depression; gastroesophageal reflux diseas e; heartburn; osteopenia; insomnia; hypothyroidism; rosacea; anemia; GI bleeds; spine surgery; benign breast tumor resection; hysterectomy; shoulder surgery; toe surgery. Allergies: SULFA, AMOXICILLIN. Family History: Significant for hypertension, asthma. Social History: . and 2 children. No tobacco. No alcohol. Review of Systems: The patient had midepigastric pain, nausea, vomiting, coffee-ground emesis. She denies any hematemes is, hemoptysis, epistaxis, hematuria, dysuria, melena, hematochezia. No chest pain, shortness of yazmin ath, seizure, syncope. She does have muscle aches and backaches. She has had bad bones and kyphosis . No depression, anxiety noted. No fevers, chills, night sweats. Physical Examination: General: Elderly female, lying in bed, in no acute distress. Vital Signs: She has a temperature 98.4 degrees Fahrenheit, pulse 71, respirations 16, blood pressur e 106/52, O2 sat 92% to 95% on room air. HEENT: Normocephalic, atraumatic. Anicteric. Pupils equal, round, and reactive to light. Extraocu lar movements are intact. Oropharynx clear. Neck: Supple. No masses. Respirations: Clear to auscultation bilaterally. Cardiac: Regular rate and rhythm. No gallop or rub. Gastrointestinal: Positive bowel sounds. Soft, benign. No hepatosplenomegaly. No peritoneal Jimmie y sign. No rebound. Extremities: No clubbing, cyanosis, or edema. 2+ pulses. Neuro: Alert and oriented x3. Able to move all extremities well. Sensation is intact to light touc h. Laboratory Data: The patient has a white count of 8.6, hemoglobin of 10.4 down from 14.1 yesterday, hematocrit of 31, MCV of 92, platelet count of 196, polys of 57%, lymphocytes 28%, monocytes 12%, eos inophils 3%. Has a PT of 12.7, INR 1.13. Sodium 144, potassium 3.8, chloride 112, bicarb 26, BUN 33 , creatinine of 0.86, glucose 89, calcium of 8.1. Magnesium 2.4. Total bilirubin 0.5, AST 18, ALT l ess than 14, alkaline phosphatase 83. Troponin I of 11.7. B-type natriuretic peptide of 1746. Tota l protein 7.6, albumin 3.4. Lipase 23. UA: Greater than 50 white blood cells, 500 leukocyte estera se, less than 5 squamous epithelial cells, extremely turbid, 1+ protein. Impression: 1. Coffee-ground emesis with gastrointestinal bleeding, nausea, vomiting, midepigastric pain. The lokesh sumner had significant nausea, vomiting, midepigastric pain prior to the coffee-ground emesis, probabl y secondary to urinary tract infection. 2. Anemia. Hemoglobin 14.1, down to 10.4, low. 3. Urinary tract infection. Continue IV antibiotics. 4. History of hypertension, asthma, osteoarthritis, insomnia, diverticulosis, gastroesophageal reflux disease, multiple sclerosis hypothyroidism, hyperlipidemia, rosacea, anemia, gastrointestinal bleeds , spine surgery, benign breast removal, hysterectomy, left shoulder surgery, toe surgery, bleeding pe ptic ulcer disease in the past, and other as per above. Recommendations: 1. Check serial H and H and transfuse p.r.n. Continue IV fluids and IV antibiotics. 2. Continue p.r.n. pain medicines antiemetics. 3. Proceed with EGD evaluation. 4. Continue PPI. DARSHANA/RIGO Voice ID: [id number] Report ID: [id number]
[2025-06-07] MEDS: ENSURE CLEAR 200 ML CAN PO SCH (21:00)
[2025-06-08 04:22] LABS: Absolute Lymphocytes (CBC) 2.0 K/uL (0.7-4.9); Hematocrit 31.5 % (36.0-45.0); Hemoglobin 10.3 g/dL (12.0-15.0); MCH 30.8 pg (27.0-35.0); MCHC 32.8 g/dL (32.0-36.0); MCV 93.7 fL (80-100); MPV 7.3 fL (7.6-11.3); Nucleated RBC Absolute Count 0.0 (0-0); Nucleated Red Blood Cells % 0.1 % (0-0); RBC Red Blood Cell Count 3.36 M/uL (3.86-4.86); White Blood Count 7.60 thou/uL (4.3-10.9)
[2025-06-08 04:42] LABS: Anion Gap 8.8 mEq/L (5.0-15.0); BUN Blood Urea Nitrogen 24.0 mg/dL (7-18); Glucose Level 125.0 mg/dL (74-106); Potassium 3.8 mEq/L (3.5-5.1)
[2025-06-08 08:04] VITALS: BP 124/45; TEMP 98.2
--- NOTE | 2025-06-08 09:28 | PN ---
Date of Progress Note: 06/07/2025 Subjective: The patient was seen this morning for followup. No new complaints or problems reported by the patient. She was lying in bed, not in distress. Objective: Vital Signs: Reviewed. HEENT: Unremarkable. Lungs: Clear to auscultation. Heart: Sounds normal. Abdomen: Soft. Bowel sounds normal. No guarding, rigidity, tenderness, distention. Extremities: No leg edema. Laboratory Data: WBC 8.6, hemoglobin 10.4, platelets 196. Sodium 144, potassium 3.8, chloride 112, bicarb 26, BUN 33, creatinine 0.86, glucose 89. Impression: 1. Acute blood loss anemia. 2. Upper GI bleeding. 3. Urinary tract infection. Plan: We will continue current antibiotic for urinary tract infection. Urine culture result is stil l negative. EGD was done today by Dr. Watters showing gastritis and Ling-Anderson tear. We will braulio tor blood work tomorrow. Once urine culture result comes back, hopefully by tomorrow, we should be a ble to discharge her to go home with appropriate oral antibiotic therapy and acid suppression therapy . ANH/MODL Voice ID: [id number] Report ID: [id number]
[2025-06-08 10:30] VITALS: O2SAT 100
--- NOTE | 2025-06-09 07:12 | DS ---
Date of Discharge: 06/08/2025 Disposition: Discharged to go home. Physical Examination: HEENT: Unremarkable. Lungs: Clear to auscultation. Heart: Sounds normal. Abdomen: Soft. Bowel sounds normal. No guarding, rigidity, tenderness, distention. Extremities: No leg edema. Laboratory Data: Upon admission, WBC 9.9, hemoglobin 14.1, platelets 281. Sodium 140, potassium 4.2, chloride 105, bicarb 27, BUN 36, creatinine 1.02, glucose 134. Liver function tests unremarkable. Troponin 11.7. ProBNP 1746. Lipase 23. Urinalysis, appearance extremely turbid, leukocytes 500, wbc more than 50, bacteria more than 50. Chest x-ray, no acute cardiopulmonary changes. CAT scan of the head and cervical spine, no acute intracranial changes. No evidence of cervical spine fracture or acute traumatic changes. CAT scan of chest, abdomen, pelvis shows large rectal stool burden concerning for fecal impaction. No other acute findings in chest, abdomen, or pelvis. Today, WBC 7.6, hemoglobin 10.3, platelets 206. Sodium 144, potassium 3.8, chloride 114, bicarb 25, BUN 24, creatinine 0.90, glucose 125. Discharge Diagnoses: 1. Upper GI bleeding 2. Urinary tract infection. 3. Chronic diastolic heart failure. 4. Mild persistent asthma. 5. Hypertension. 6. Hyperlipidemia. 7. Aortic aneurysm, ascending thoracic aorta. 8. Chronic dissection of abdominal aorta. 9. Hypothyroidism. 10. Diverticulosis. 11. Osteoarthritis, multiple sites. 12. Multiple sclerosis. 13. Seizure disorder. 14. Gastritis. 15. Osteoarthritis, multiple sites. Discharge Medications And Instructions: Continue all prior home medications. Start following new medications and prescription was sent to your [facility] pharmacy from Dr Kohler's office: 1. Ciprofloxacin 500 mg, take 1 tablet by mouth two times a day with food for one week. 2. CHANGE: Pantoprazole 40 mg, take 1 tablet by mouth two times a day for one month, then 1 tablet 1 tablet by mouth once a day. 3. DO NOT TAKE any Aspirin, Aleve, Motrin, Naproxen, Ibuprofen type of medications. Follow up with Dr. Kohler next week Hospital Course: 89-year-old pleasant female patient admitted to the hospital with abdominal pain, nausea, vomiting, and hematemesis. The patient also had urinary tract infection upon admission to the hospital. She was given IV Protonix and IV antibiotics upon admission, she was started on ceftriaxone. Dr. Watters from GI was consulted. He did EGD on her yesterday, which showed evidence of gastritis, esophagitis, and Ling-Anderson tear. There was no active bleeding. The patient's hemoglobin remained stable and did not require any blood transfusion. Diet was started after EGD, she is tolerating that very well. Today she is back to her normal self and was discharged to go home. Urine culture is still pending and we will send her home with oral antibiotic, which will be Cipro and if we need to change antibiotic depending on the urine culture result, we will do so. The patient is medically stable for discharge and there is no need for ongoing hospitalization while waiting on the final urine culture result and this was discussed with her. ANH/RIGO Voice ID: [id number] Report ID: [id number] JOSE
== END 2025-06-08 10:59 | disposition home health service (06) | DRG 377 ==
LOC: ER 11:30 → 4TH 15:55
PROVIDERS: ADMIT Internal Medicine; ATTEND Internal Medicine
PROC: 0DB78ZX Excision of Stomach, Pylorus, Via Natural or Artificial Opening Endoscopic, Diagnostic (ICD-10-PCS; 2025-06-07)
PROC: 0DB68ZX Excision of Stomach, Via Natural or Artificial Opening Endoscopic, Diagnostic (ICD-10-PCS; principal; 2025-06-07 13:30)
DX: K29.71 Gastritis, unspecified, with bleeding (principal); I71.02 Dissection of abdominal aorta; N39.0 Urinary tract infection, site not specified; I50.32 Chronic diastolic (congestive) heart failure; D62 Acute posthemorrhagic anemia; K20.91 Esophagitis, unspecified with bleeding; K22.6 Gastro-esophageal laceration-hemorrhage syndrome; G35 Multiple sclerosis; K59.00 Constipation, unspecified; I11.0 Hypertensive heart disease with heart failure; J45.30 Mild persistent asthma, uncomplicated; F41.9 Anxiety disorder, unspecified; E78.5 Hyperlipidemia, unspecified; I71.21 Aneurysm of the ascending aorta, without rupture; E03.9 Hypothyroidism, unspecified; G40.909 Epilepsy, unspecified, not intractable, without status epilepticus; K57.90 Diverticulosis of intestine, part unspecified, without perforation or abscess without bleeding; M19.09 Primary osteoarthritis, other specified site; Z88.0 Allergy status to penicillin; Z88.2 Allergy status to sulfonamides; Z88.1 Allergy status to other antibiotic agents; Z90.710 Acquired absence of both cervix and uterus
CPT/HCPCS: 36415; 70450; 71045; 71250; 72125; 74176; 80048; 80076; 81001; 83690; 83735; 83880; 84484; 85025; 85610; 86850; 86900; 86901; 87077; 87086; 87088; 87186; 88305; 88312; 93005; 96361; 96374; 96375; 99285; J0696; J2003; J2470; J2704; J7030; J7040; J7050; J7120

== ENCOUNTER 2025-06-13 11:18 | Observation (INO) | payer OTHER ==
[2025-06-13 12:15] VITALS: BMI 15.6
[2025-06-13 15:06] LABS: Absolute Lymphocytes (CBC) 1.7 K/uL (0.7-4.9); Hematocrit 30.5 % (36.0-45.0); Hemoglobin 9.9 g/dL (12.0-15.0); MCH 30.0 pg (27.0-35.0); MCHC 32.3 g/dL (32.0-36.0); MCV 93.0 fL (80-100); MPV 7.3 fL (7.6-11.3); Nucleated RBC Absolute Count 0.0 (0-0); Nucleated Red Blood Cells % 0.0 % (0-0); RBC Red Blood Cell Count 3.29 M/uL (3.86-4.86); White Blood Count 6.90 thou/uL (4.3-10.9)
[2025-06-13 15:26] LABS: Potassium 3.6 mEq/L (3.5-5.1)
[2025-06-13 15:27] LABS: ALT/SGPT 10.0 U/L (13-56); AST/SGOT 11.0 U/L (15-37); Albumin 2.8 g/dL (3.4-5.0); Albumin/Globulin Ratio 0.9 (1.1-1.8); Alkaline Phosphatase 76.0 U/L (45-117); Anion Gap 8.6 mEq/L (5.0-15.0); BUN Blood Urea Nitrogen 18.0 mg/dL (7-18); Globulin 3.0 g/dL (2.3-3.5); Glucose Level 155.0 mg/dL (74-106)
--- NOTE | 2025-06-13 19:55 | RAD REPORT ---
EXAMINATION: ONE VIEW CHEST XR CLINICAL INDICATION: Female, 89 years old.,picc placement TECHNIQUE: Frontal chest projection is submitted. Examination is limited by patient positioning and t echnique. COMPARISON: 06/06/2025 FINDINGS: Left arm PICC tip terminates in the proximal SVC. The lungs are well inflated and clear. No pneumoth orax or sizable effusion. The heart is normal in size. Mediastinal contours are unremarkable. IMPRESSION: Left arm PICC terminates in the proximal SVC. No acute intrathoracic abnormalities.
[2025-06-13] MEDS: Meropenem 500 MG in NA CHLORIDE 0.9% 100 ML IV SCH (20:51)
[2025-06-13] MEDS: Mupirocin NASAL 2 APPL/1 GM TUBE NAS SCH (20:51)
[2025-06-13] MEDS: POTASSIUM CL SA 10 MEQ TAB PO ONE (20:52)
[2025-06-13] MEDS: levETIRAcetam 500 MG TAB PO SCH (21:35)
[2025-06-13] MEDS: MIRTAZAPINE 15 MG TAB PO SCH (21:35)
[2025-06-13] MEDS: OXYCODONE *CR* 10 MG TAB PO SCH (21:37)
--- NOTE | 2025-06-14 03:20 | HP ---
Date of Admission: 06/13/2025 Reason For Admission: Urinary tract infection. History Of Present Illness: This is a 89-year-old female patient who was admitted to the hospital last week, and during her hospital stay, she was also diagnosed as having urinary tract infection. Her urinalysis was abnormal consistent with a urinary tract infection. Urine culture was sent, which was pending, and the patient was started on empiric antibiotics Cipro and that is what she was discharged to go home with. Her final urine culture results came back growing E. coli and it is ESBL and it is sensitive to sulfa and meropenem, otherwise, it is resistant to all other antibiotics. After this result was available, patient was contacted today and was advised to get admitted to the hospital for IV antibiotic therapy. She denies any fever, chills, nausea, vomiting. She has some dysuria, but no hematuria. No flank pain. No abdominal pain. Allergies: AUGMENTIN CAUSING ITCHING, SULFA CAUSING ITCHING. Medications At Home: She takes Oxycodone, albuterol inhaler, carvedilol 6.25 mg 2 times a day, Vitamin D3 2000 units daily, Senokot S 2 tablets 2 times a day, fluticasone nasal spray 1 spray each nostril 2 times a day, Advair inhaler 1 puff 2 times a day, hyoscyamine 0.125 mg 3 times a day as needed, ibandronate 150 mg once a month, levetiracetam 1000 mg two times a day, levocetirizine 5 mg daily, levothyroxine 50 mcg daily, meclizine as needed, mirtazapine 15 mg daily at bedtime, Zofran p.r.n., pregabalin 150 mg daily, trazodone 50 mg takes 0.5 to1 tablet at bedtime, valsartan 160 mg daily. Review of Systems: : As mentioned above. All other systems reviewed and negative. Past Medical History: Significant for history of recurrent urinary tract infection. Insomnia, hypertension, asthma, osteoarthritis at multiple sites diverticulosis, gastroesophageal reflux disease, multiple sclerosis, hypothyroidism, hyperlipidemia, rosacea, prior history of anemia with GI bleeding. Past Surgical History: Significant for sinus surgery, removal of benign breast tumor, hysterectomy, shoulder surgery, and toe surgery. Family History: Father had subdural hematoma. Mother had hypertension Social History: Negative for smoking and alcohol use. Physical Examination: Vital Signs: Temperature 97.5, pulse 72, respiratory rate 18, blood pressure 133/71, oxygen saturation 95%. Height 5 feet 5 inches, weight 94 pounds. General: Awake, alert, oriented, not in distress. HEENT: Head atraumatic, normocephalic. Conjunctivae nonerythematous. Sclerae white. Mouth, no thrush or edema noted. Ears/Nose, no mass, lesion, discharge noted. Neck: Supple. No JVD, lymph nodes, bruit, thyromegaly noted. Lungs: Bilateral good equal air entry. Clear to auscultation. No rhonchi. No rales. Heart: Normal heart sounds, no murmur or gallop. Abdomen: Soft, bowel sounds normal. No guarding, rigidity, tenderness, mass, hepatosplenomegaly, distention, or bruit noted. Extremities: No leg edema. No calf tenderness. Skin: No rash, ulcer, cellulitis. Lymphatics: No lymph node enlargement in neck, supraclavicular, infraclavicular region. Neuro: No focal neurological deficit. Chest: Unremarkable. External Genitalia: Deferred. Rectal: Deferred. Laboratory Data: Urine culture grew E. coli. It is ESBL and sensitive to meropenem and sulfa. WBC 6.9, hemoglobin 9.9, platelets 193. Sodium 141, potassium 3.6, chloride 108, bicarb 28, BUN 18, creatinine 0.99, glucose 155. Liver function tests normal. Impression: 1. Urinary tract infection, organism Escherichia coli, extended-spectrum beta- lactamase. 2. Anemia, chronic, unspecified. 3. Hypertension. 4. Mixed hyperlipidemia. 5. Hypothyroidism. 6. Mild persistent asthma. 7. Diverticulosis. 8. Seizure disorder. 9. Multiple sclerosis. Plan: Admit patient to hospital for further evaluation and management of this problem. The patient is appropriate for observation and we will go ahead and start her on IV meropenem 500 mg every 12 hours. An order was placed for PICC line and Social Service to be consulted for arrangements of home IV antibiotic therapy. For hypertension, we will continue her antihypertensive medication and monitor blood pressure. No need for any further intervention. For hypothyroidism, we will continue her levothyroxine. No need for any further intervention. For gastroesophageal reflux disease, she is on proton pump inhibitor therapy. We will continue that and will not require any further intervention. For her seizure disorder, she is on Keppra, which we will continue that and will not require any further intervention. Total time spent was 60 minutes including review of last hospital admission record, review of urine culture result, review of last office visit record from 05/23/2025, and performing today's evaluation and management as well as making arrangements for direct admission to the hospital. The plan of treatment was discussed with the patient. ANH/RIGO Voice ID: [id number]
[2025-06-14] MEDS: LEVOTHYROXINE SOD 0.05 MG TABLET PO SCH (05:40)
[2025-06-14] MEDS: PANTOPRAZOLE 40MG TABLET PO SCH (05:40)
[2025-06-14 07:09] LABS: Anion Gap 5.2 mEq/L (5.0-15.0); BUN Blood Urea Nitrogen 19.0 mg/dL (7-18); Glucose Level 97.0 mg/dL (74-106); Potassium 4.2 mEq/L (3.5-5.1)
[2025-06-14] MEDS: VALSARTAN 160 MG TAB PO SCH (07:57)
[2025-06-14 16:23] VITALS: BP 118/69; TEMP 98.2
--- NOTE | 2025-06-15 07:35 | DS ---
Date of Discharge: 06/14/2025 Disposition: Discharged to go home. Physical Examination: HEENT: Unremarkable. Lungs: Clear to auscultation. Heart: Sounds normal. Abdomen: Soft. Bowel sounds normal. No guarding, rigidity, tenderness, distention. Extremities: No leg edema. Discharge Diagnoses: 1. Urinary tract infection, organism Escherichia coli, extended-spectrum beta- lactamase. 2. Anemia, chronic, unspecified. 3. Hypertension. 4. Mixed hyperlipidemia. 5. Hypothyroidism. 6. Mild persistent asthma. 7. Diverticulosis. 8. Seizure disorder. 9. Multiple sclerosis. Discharge Medications and Instructions: Continue all prior home medications. Home health nurse to assist patient with following: Home IV antibiotic: Meropenem 500 mg IV every 12 hours for 7 days, last day of antibiotic is on 06/20/2025. Home health nurse to remove PICC line on 06/21/2025, home health nurse to change PICC line dressing per protocol, flush PICC line with saline per protocol. Follow up with Dr. Kohler week after next. Hospital Course: This is an 89-year-old pleasant female patient who was admitted to the hospital for IV antibiotic therapy with meropenem due to recent urinary tract infection with organism E coli, which was ESBL. The patient was directly admitted to the hospital yesterday for further treatment as this infection requires use of IV Meropenem. Routine blood work was done which came back unremarkable. She was started on IV meropenem and PICC line was placed in the left arm, and today she was determined to be stable for discharge. I will see her week after next at office for followup. ANH/RIGO Voice ID: [id number] Report ID: [id number] JOSE
== END 2025-06-14 17:49 | disposition home or self-care (01) ==
LOC: 2ND 12:02
PROVIDERS: ADMIT Internal Medicine; ATTEND Internal Medicine
DX: N39.0 Urinary tract infection, site not specified (principal); B96.20 Unspecified Escherichia coli [E. coli] as the cause of diseases classified elsewhere; I10 Essential (primary) hypertension; E78.2 Mixed hyperlipidemia; J45.30 Mild persistent asthma, uncomplicated; K57.90 Diverticulosis of intestine, part unspecified, without perforation or abscess without bleeding; G40.909 Epilepsy, unspecified, not intractable, without status epilepticus; E03.9 Hypothyroidism, unspecified; Z16.12 Extended spectrum beta lactamase (ESBL) resistance
CPT/HCPCS: 36569; 85025; 80048; 36415; 80053; 71045; G0379; G0378 ×2